=== PATIENT | male | born 1955 | race Caucasian/White ===

== ENCOUNTER → 2016-06-09 | Outpatient (CLI) | payer OTHER ==
[~2016-06-09] MED LIST: ACET-1222 PO; ACET-1256 PO; ACET-1311 PO; AMOX500C3 PO; ARTIOIN OP; ASCA500 PO; ASCO500C43 PO; ASPCH81X PO; ASPI81TA28 PO; AUGMENTIN PO; BENZ2TAB6 PO; BISA10SU38 PR; BUPR-79 PO; BUPR-83 PO; BUPR100T8 PO; CEPH500C2 PO; CGN1 PO; CGN1X PO; CIPR-255 PO; CLOTCRE33 TOP; CPRS5005 PO; CYAN10005 PO; DEXT1TAB50 PO; DEXT30TA7 PO; DIVA500T5 PO; DIVA500T59 PO; DOCU100C PO; DOCU100C31 PO; DPKSR/500 PO; DUTA0.5C PO; FOLI1TAB7 PO; HALO5TAB PO; HYDR-3126 PO; KFL500 PO; LINE1TAB2 PO; LINE1TAB6 PO; LORA-741 PO; MELA1TAB54 PO; METO25TA3 PO; MOML PO; MOMLX PO; MULT-506 PO; MULTTAB63 PO; NICO14DI5 TD; NICO1DIS9 TOP; NMN5 PO; OXYC-57 PO; PANT40TA PO; PRED10TA PO; PRLSR20 PO; PROT1POW; PRT40 PO; QUET1TAB30 PO; SENN8.6C PO; SENNTAB23 PO; SNTO30 EXT; SNTONWC EX; SODIENE PR; SULF800T23 PO; TAMS0.4C38 PO; TEMA15CA4 PO; TRAM-10 PO; TYL325X PO; VANC1INJ71 IV; WLLSR100 PO; ZINC1CAP PO; ZSYI45 IV; [UNRECOGNIZED DRUG - CODE] IV; [UNRECOGNIZED DRUG - OTHER] SQ
[2016-06-09 13:50] VITALS: BP 97/58; PULSE 80; TEMP 36.5; O2SAT 98
--- NOTE | 2016-06-09 15:07 | Radiation Oncology Follow-Up ---
Radiation Oncology Follow-Up Date of Visit Jun 09, 2016. Reason For Visit One-month follow-up Radiation Completion Date 05/05/16 Diagnosis (1) Lung cancer Status: Acute Onset Date: 02/02/2016 Location: left upper lobe Histology Subtype: adenocarcinoma Stage: lll (B) Permanent Comment: Shortness of breath, abnormal chest CT Status post endoscopic ultrasound and biopsies 01/30/2016 Revealing adenocarcinoma Clinical stage T1b N3 M0 Status post completion of combined radiation and chemotherapy radiation completed 05/05/2016 received 6000 cGy Last Edited By: Andree Hernandes on May 14, 2016 10:12 History of Present Illness Mr. Luther is a 61-year-old male with a long time smoker of 50 years up to 3 packs a day. Currently he is been able to decrease to half a pack a day. Recently presented with increasing shortness of breath and presented to the emergency department where a chest x-ray and subsequent CT scan of the chest were performed. The chest x-ray taken on January 17 showed an indeterminate 2.1 cm nodular density in the left suprahilar region with follow-up CT scan recommended and performed. This confirmed a 2.4 x 2.2 cm spiculated nodule in the left upper lobe. Based 1.6 x 2.0 cm irregular density was noted in the left AP window that could be consistent with an abnormal lymph node. A 1.8 x 1.5 cm lymph node was seen anterior to the descending thoracic aorta. There was prominent right hilar nodes measuring up to 1.1 cm. No axillary nodes noted. Liver is enlarged to ptotic. There are no evidence of bony lesions appreciated. The patient was seen by Dr. Collins for further evaluation and tissue diagnosis. 01/30/2016 patient underwent a repeat CT scan of the chest without IV contrast. This again showed a 2.4 x 2.1 cm spiculated nodule in the left upper lobe with a 2.1 x 1.8 cm irregular density in the left AP window and a 1.8 x 1.5 cm lymph node anterior to the descending thoracic aorta. On 2015 Dr. Poe performed an endobronchial ultrasound with biopsy. An endobronchial ultrasound-guided FNA at station 7 lymph node revealed no malignant cells. Case: [id number]. Endobronchial ultrasound-guided FNA of lymph nodes are for revealed malignant cells. Case: [id number]. Endobronchial ultrasound-guided FNA of the L2 and lymph node revealed rare atypical cells consistent with metastatic adenocarcinoma. Case: -NG. The endobronchial ultrasound-guided FNA of the L4 lymph node was positive for malignant cells consistent with adenocarcinoma and a lung primary. Case: -NG. On February 03 patient underwent a PET/CT scan for staging purposes. This showed an FDG avid 2.2 cm left upper lobe spiculated nodule highly suspicious for primary bronchogenic carcinoma. Marked FDG uptake was noted with an irregular 1.7 cm AP window lesion suggestive of matheus spread. In addition it was mild FDG uptake within a nonenlarged left supraclavicular, high right paratracheal and subcarinal lymph nodes that were nonspecific but suspicious. A repeat CT angiogram of the chest was performed due to increasing shortness of breath to rule out pulmonary embolism. No acute pulmonary embolism was identified. The left upper lobe pulmonary nodule was again noted a 2.3 cm and suspicious. 2.2 cm groundglass opacity was appreciated within the right lower lobe likely atelectatic or inflammatory. CT soft tissue of the neck showed no evidence of airway compromise. There was no definite supraclavicular or cervical nodes appreciated. Patient was seen by Dr. Garo Wells for evaluation of the role of adjuvant chemotherapy. The patient was seen on 02/18/2016. The patient had undergone an MRI of the brain in February 2014 which showed cerebellar and cerebral atrophy. He noted the diagnosis of adenocarcinoma consistent with lung primary , TTF-1 positive and negative for PE 40. The TNM staging was recorded as T1b N3 M0 stage IIIB. He discussed with the patient the use of combined chemoradiation. The patient does appear to have bilateral peripheral leg neuropathy and wears bilateral leg braces. Dr. Wells stated that he would consider treatment with Alimta and carboplatin along with radiation. He discussed the possibility of 4 cycles with Alimta at 500 mg/m on day 1, carboplatin AUC of 5 on day 1 repeating every 21 days. He also arrange for the patient to be seen by our department for evaluation and discussion of the role of radiation. It is for this reason the patient is seen in referral. He underwent combined radiation and chemotherapy. Radiation was completed 05/05. He received 6000 cGy. Interim History He is doing well over the past month. He denies any change in respiratory status. 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 This continues to improve. He does have to be careful about swallowing liquids that her cold. He does better with fluid at room temperature. He also stated that certain foods such as hamburger has to be to do very well before swallowing. He continues to have some mild hoarseness of his voice. The irritation of the skin on his back is completely healed. On 2 occasions he has been seen and evaluated in the emergency room for shortness of breath. We did not require hospitalization or any change in medications. Allergies Coded Allergies: No Known Allergies (Unverified , 06/01/16) Home Medications Scheduled Aspirin (Aspirin Ec), 81 MG PO DAILY Benztropine Mesylate (Benztropine Mesylate), 1 MG PO BID Bupropion (Wellbutrin Sr), 100 MG PO QAM Dextromethorphan-Guaifenesin (Mucinex Dm Maximum Streng), 1 TAB PO BID Divalproex Sodium (Depakote Etended-Release), 500 MG PO BID Dutasteride (Avodart), 0.5 MG PO QAM Haloperidol (Haldol), 5 MG PO BID Memantine (Namenda), 5 MG PO DAILY Metoprolol Succinate (Toprol Xl), 25 MG PO DAILY Sennosides-Docusate Sodium (Stool Softener), 1 TAB PO BID Tamsulosin Hcl (Flomax), 0.4 MG PO QPM Review of Systems Gastrointestinal: Symptoms: WNL Oral: Other Oral Symptoms: Continues w/dysphagia at times in esophagus and "reno apple" area; Respiratory: Symptoms: Dry Cough, SOB With Exertion, Productive Cough Sputum Character: Yellow sputum when cough is productive; Other Respiratory: Voice hoarse, but improving per pt. Urinary: Symptoms: WNL Skin: Symptoms: No Problems Physical Exam Vital Signs Date Time Temp Pulse Resp B/P Pulse Ox O2 Delivery O2 Flow Rate FiO2 06/09/16 13:50 36.5 80 16 97/58 98 Fatigue: None General Appearance: no apparent distress Eyes: normal inspection, EOMI ENT: normal ENT inspection, hearing grossly normal, pharynx normal Neck: no adenopathy, thyroid normal Respiratory/Chest: lungs clear, no respiratory distress, no accessory muscle use Cardiovascular: regular rate, rhythm, no gallop, no murmur Extremities: no pedal edema Neurologic/Psychiatric: no motor/sensory deficits, alert, normal mood/affect Skin: warm/dry Lymphatic: no adenopathy Laboratory Studies Test 04/15/16 08:20 04/23/16 11:53 04/28/16 08:27 05/14/16 12:07 Platelet Estimate DECREASED Magnesium Level 2.1 mg/dl (1.8-2.4) 2.0 mg/dl (1.8-2.4) Chemistry Specimen Hemolysis Test 05/27/16 15:01 05/31/16 00:23 05/31/16 03:03 06/01/16 08:10 Platelet Estimate DECREASED Polychromasia 1+ 1+ Anisocytosis PRESENT PRESENT Lactate Dehydrogenase 228 U/L (87-241) Est Creatinine Clear Calc Drug Dose 114.4 ml/min 175.1 ml/min Direct Bilirubin < 0.1 mg/dl (0-0.2) Lipase 171 U/L (73-393) Urine Color DK YELLOW Urine Appearance CLOUDY (CLEAR) Urine pH 7.5 (4.5-7.5) Urine Specific [place] 1.015 (1.000-1.030) Urine Protein NEG (NEG) Urine Glucose (UA) NEG (NEG) Urine Ketones NEG (NEG) Urine Occult Blood NEG (NEG) Urine Nitrite NEG (NEG) Urine Bilirubin NEG (NEG) Urine Urobilinogen NEG (NEG) Urine Leukocyte Esterase TRACE (NEG) Urine WBC (Auto) 1-5 /hpf (0-5) Urine RBC (Auto) 0-4 /hpf (0-4) Urine Hyaline Casts (Auto) 10-30 /lpf (0-5) Urine Epithelial Cells (Auto) >30 /lpf (0-5) Urine Bacteria (Auto) NEG (NEG) Urine Renal Epithelial Cells 0-5 /lpf (0-5) Urine Mucus PRESENT (NONE PRSENT) White Blood Count 2.11 K/uL (4.8-10.8) Red Blood Count 3.28 M/uL (4.7-6.1) Hemoglobin 10.0 g/dL (14.0-18.0) Hematocrit 29.5 % (42-52) Mean Corpuscular Volume 89.9 fL (80-100) Mean Corpuscular Hemoglobin 30.5 pg (25-34) Mean Corpuscular Hemoglobin Concent 33.9 g/dl (32-36) Platelet Count 151 K/uL (130-400) Mean Platelet Volume 9.2 fL (7.4-10.4) Neutrophils (%) (Auto) 47.9 % Lymphocytes (%) (Auto) 14.7 % Monocytes (%) (Auto) 36.0 % Eosinophils (%) (Auto) 0.5 % Basophils (%) (Auto) 0.0 % Neutrophils # (Auto) 1.01 K/uL (1.4-6.5) Lymphocytes # (Auto) 0.31 K/uL (1.2-3.4) Monocytes # (Auto) 0.76 K/uL (0.11-0.59) Eosinophils # (Auto) 0.01 K/uL (0-0.5) Basophils # (Auto) 0.00 K/uL (0-0.2) RDW Standard Deviation 62.9 fL (36.4-46.3) RDW Coefficient of Variation 19.8 % (11.5-14.5) Immature Granulocyte % (Auto) 0.9 % Immature Granulocyte # (Auto) 0.02 K/uL (0.00-0.02) Prothrombin Time 10.7 SECONDS (9.0-12.0) Prothrombin Time INR 1.0 (0.9-1.1) PTT 29.9 SECONDS (21.0-31.0) Partial Thromboplastin Ratio 1.2 Sodium Level 132 mmol/L (136-145) Potassium Level 4.3 mmol/L (3.5-5.1) Chloride Level 97 mmol/L (98-107) Carbon Dioxide Level 28 mmol/L (21-32) Anion Gap 7.0 mmol/L (3-11) Blood Urea Nitrogen 6 mg/dl (7-18) Creatinine 0.55 mg/dl (0.60-1.40) Estimated GFR () 129.4 Estimated GFR (Non- 111.7 BUN/Creatinine Ratio 10.9 (10-20) Random Glucose 109 mg/dl (70-99) Calcium Level 8.8 mg/dl (8.5-10.1) Total Bilirubin 0.2 mg/dl (0.2-1) Aspartate Amino Transferase (AST) 23 U/L (15-37) Alanine Aminotransferase (ALT) 16 U/L (12-78) Alkaline Phosphatase 59 U/L (45-117) Troponin I < 0.015 ng/ml (0-0.045) Total Protein 6.5 gm/dl (6.4-8.2) Albumin 2.9 gm/dl (3.4-5.0) Globulin 3.6 gm/dl (2.5-4.0) Albumin/Globulin Ratio 0.8 (0.9-2) Test 06/09/16 13:30 White Blood Count 6.56 K/uL (4.8-10.8) Red Blood Count 3.69 M/uL (4.7-6.1) Hemoglobin 11.6 g/dL (14.0-18.0) Hematocrit 33.6 % (42-52) Mean Corpuscular Volume 91.1 fL (80-100) Mean Corpuscular Hemoglobin 31.4 pg (25-34) Mean Corpuscular Hemoglobin Concent 34.5 g/dl (32-36) Platelet Count 274 K/uL (130-400) Mean Platelet Volume 9.1 fL (7.4-10.4) Neutrophils (%) (Auto) 67.3 % Lymphocytes (%) (Auto) 20.9 % Monocytes (%) (Auto) 10.1 % Eosinophils (%) (Auto) 0.3 % Basophils (%) (Auto) 0.3 % Neutrophils # (Auto) 4.42 K/uL (1.4-6.5) Lymphocytes # (Auto) 1.37 K/uL (1.2-3.4) Monocytes # (Auto) 0.66 K/uL (0.11-0.59) Eosinophils # (Auto) 0.02 K/uL (0-0.5) Basophils # (Auto) 0.02 K/uL (0-0.2) RDW Standard Deviation 60.1 fL (36.4-46.3) RDW Coefficient of Variation 18.3 % (11.5-14.5) Immature Granulocyte % (Auto) 1.1 % Immature Granulocyte # (Auto) 0.07 K/uL (0.00-0.02) Sodium Level 134 mmol/L (136-145) Potassium Level 4.5 mmol/L (3.5-5.1) Chloride Level 97 mmol/L (98-107) Carbon Dioxide Level 29 mmol/L (21-32) Anion Gap 8.0 mmol/L (3-11) Blood Urea Nitrogen 10 mg/dl (7-18) Creatinine 0.66 mg/dl (0.60-1.40) Estimated GFR () 120.1 Estimated GFR (Non- 103.6 BUN/Creatinine Ratio 15.9 (10-20) Random Glucose 95 mg/dl (70-99) Calcium Level 9.3 mg/dl (8.5-10.1) Total Bilirubin 0.4 mg/dl (0.2-1) Aspartate Amino Transferase (AST) 14 U/L (15-37) Alanine Aminotransferase (ALT) 18 U/L (12-78) Alkaline Phosphatase 78 U/L (45-117) Lactate Dehydrogenase 257 U/L (87-241) Total Protein 7.6 gm/dl (6.4-8.2) Albumin 3.5 gm/dl (3.4-5.0) Globulin 4.1 gm/dl (2.5-4.0) Albumin/Globulin Ratio 0.9 (0.9-2) Assessment & Plan Plan: Continue follow-up with medical oncology. He has appointment next week. Recheck scanning per medical oncology. Continue follow-up with his PCP. We discussed the difficulty with swallowing. I reviewed with him that in some cases the patient may develop esophageal stricture following treatment. He is steadily improving. He is instructed to call should he continue to have difficulty with swallowing he may need to be referred to gastroenterology for upper GI endoscopy and dilatation. We asked him to return to our office in 6 months. Total Time In Follow-Up I spent 15 minutes speaking to the patient performing examination. I spent 15 minutes reviewing information in completing this note. Copy To Benja López M.D.; [place] Cheng D.OLexis; Vasu Poe MD
== END | disposition home or self-care (01) ==
LOC: C.ONC 13:21
PROVIDERS: ATTEND Radiology Radiation Oncology
DX: Z08 Encounter for follow-up examination after completed treatment for malignant neoplasm (principal); Z92.3 Personal history of irradiation; Z85.118 Personal history of other malignant neoplasm of bronchus and lung

== ENCOUNTER 2016-06-18 12:21 | Inpatient (IN) | payer OTHER ==
[2016-06-18] VITALS (17 sets, daily range): BP systolic 102–157; BP diastolic 55–87; PULSE 71–91; TEMP 36.3–36.9; O2SAT 96–100; Ht 172.7 cm; Wt 85.7 kg
[~2016-06-18] VITALS: Ht 172.7 cm; Wt 85.7 kg
[~2016-06-18 12:21] MED LIST changes: -ACET-1222 PO; -ACET-1256 PO; -ACET-1311 PO; -AMOX500C3 PO; -ARTIOIN OP; -ASCA500 PO; -ASCO500C43 PO; -ASPCH81X PO; -AUGMENTIN PO; -BENZ2TAB6 PO; -BISA10SU38 PR; -BUPR-83 PO; -BUPR100T8 PO; -CEPH500C2 PO; -CGN1 PO; -CIPR-255 PO; -CLOTCRE33 TOP; -CPRS5005 PO; -CYAN10005 PO; -DEXT30TA7 PO; -DIVA500T5 PO; -DIVA500T59 PO; -DOCU100C PO; -DOCU100C31 PO; -FOLI1TAB7 PO; -HYDR-3126 PO; -KFL500 PO; -LINE1TAB2 PO; -LINE1TAB6 PO; -LORA-741 PO; -MELA1TAB54 PO; -MOML PO; -MOMLX PO; -MULT-506 PO; -MULTTAB63 PO; -NICO14DI5 TD; -NICO1DIS9 TOP; -OXYC-57 PO; -PANT40TA PO; -PRED10TA PO; -PRLSR20 PO; -PROT1POW; -PRT40 PO; -QUET1TAB30 PO; -SENN8.6C PO; -SNTO30 EXT; -SNTONWC EX; -SODIENE PR; -SULF800T23 PO; -TEMA15CA4 PO; -TRAM-10 PO; -TYL325X PO; -VANC1INJ71 IV; -WLLSR100 PO; -ZINC1CAP PO; -ZSYI45 IV; -[UNRECOGNIZED DRUG - CODE] IV; -[UNRECOGNIZED DRUG - OTHER] SQ
[2016-06-18] MEDS ORDERED: ACETAMINOPHEN 325 MG TAB PO PRN (12:30)
[2016-06-18 13:07] LABS: BASO % 0.1 %; BASO ABS # 0.01 K/uL (0-0.2); EOS % 0.2 %; HEMATOCRIT 27.8 % (42-52); IG% 0.5 %; LYMPH % 12.7 %; LYMPH ABS # 1.27 K/uL (1.2-3.4); MEAN CELL VOLUME 89.7 fL (80-100); MEAN PLATELET VOLUME 8.8 fL (7.4-10.4); MONO % 9.5 %; PLATELET COUNT 231 K/uL (130-400)
[2016-06-18] MEDS ORDERED: HEPARIN 25,000 UNIT/500ML D5W 500 ML IV PRN (13:15)
[2016-06-18 13:16] LABS: PARTIAL THROMBOPLASTIN RATIO 1.1; PROTHROMBIN TIME (PATIENT) 10.9 SECONDS (9.0-12.0)
[2016-06-18 13:28] LABS: COMPLETE YES; MEAN CORPUSCULAR HGB CONC 34.5 g/dl (32-36)
[2016-06-18 13:30] LABS: ALB/GLOB RATIO 0.7 (0.9-2); BUN/CREATININE RATIO 14.7 (10-20); CREATININE 0.59 mg/dl (0.60-1.40); POTASSIUM 4.4 mmol/L (3.5-5.1)
--- NOTE | 2016-06-18 13:43 | Surgery Consultation ---
Consultation Date of Service Jun 18, 2016. Chief Complaint 61 yo m with hx of schizoaffective/bipolar disorder, HTN, and lung ca, seen in consultation today d/t pain in LLE and concern for ischemia. Pt states he was at home, where he ambulates with leg braces on, and began having pain in L foot about 2-3 days ago. States is constant, waxing and waning occasionally, significantly worse at night. Told his family last evening, who took him to his PCP's office today. PCP sent to [facility] d/t concern for ischemia. Pt recently completed tx for lung ca. Denies CRISOSTOMO, fever, chills, chest pain, SOB,a db pain, N/V, ulcerations, other complaints. 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 History of Present Illness The patient is a 61 year old male Allergies Coded Allergies: No Known Allergies (Unverified , 06/01/16) Home Medications Scheduled Aspirin (Aspirin Ec), 81 MG PO DAILY Benztropine Mesylate (Benztropine Mesylate), 1 MG PO BID Bupropion (Wellbutrin Sr), 100 MG PO QAM Dextromethorphan-Guaifenesin (Mucinex Dm Maximum Streng), 1 TAB PO BID Divalproex Sodium (Depakote Etended-Release), 500 MG PO BID Dutasteride (Avodart), 0.5 MG PO QAM Haloperidol (Haldol), 5 MG PO BID Memantine (Namenda), 5 MG PO DAILY Metoprolol Succinate (Toprol Xl), 25 MG PO DAILY Sennosides-Docusate Sodium (Stool Softener), 1 TAB PO BID Tamsulosin Hcl (Flomax), 0.4 MG PO QPM Problem List Medical Problems: (1) Bipolar disorder (2) ISCHEMIA L FOOT,PAD,LUNG CA (3) Lung mass Surgical / Medical History Hx Cardiac Surgery: No Hx Abdominal Surgery: No Hx Cancer Surgery: No Hx Thoracic Surgery: No Hx Orthopedic: No Hx Urinary Tract Surgery: No Past Medical/Surgical History: Cancer, Hypertension, Other Psy. Disorders Family History No pertinent family history Social History Smoking Status: Current Every Day Smoker Hx Tobacco Use In Past Year?: Yes (trying to quit past 2 days. ) Hx Alcohol Use - Type & Amnt: No Hx Substance Use -Type & Amnt: No Review of Systems Constitutional: No chills, No fever, No malaise Skin: + change in color Eyes: No visual changes ENMT: No sore throat Respiratory: No NEWBY, No short of breath Cardiovascular: + edema, + intermittent claudication, No chest pain, No palpitations, No syncope Gastrointestinal: No abdominal pain, No diarrhea, No nausea, No vomiting Neurologic: + numbness (L foot/toes), + weakness (L foot/toes), No dizziness Physical Exam Constitutional: General Apperance: well-nourished, well-developed Level of Distress: NAD, chronically ill Psychiatric: Mental Status: active & alert, normal mood, normal affect Orientation: oriented except where noted, to time, to place, to person Memory: recent memory normal, remote memory normal Head: normocephalic, atraumatic Eyes: EOM: EOMI ENMT: normal ENT inspection, hearing grossly normal Neck: supple, trachea midline Lungs: Respiratory effort: no dyspnea Auscultation: no rales/crackles, no rhonchi, decreased breath sounds Cardiovascular: Apical Impulse: not displaced Heart Auscultation: RRR, no rubs, no gallops Peripheral Pulses: Pulses: full and equal, in all extremities except if noted Bruits: none appreciated Carotid Pulse: normal on the left, normal on the right Brachial Pulses: normal on the left, normal on the right Radial Pulse: normal on the left, normal on the right Femoral Pulse: absent on the left, absent on the right Posterior Tibialis Pulse: absent on the left, doppler (RLE only) Dorsalis Pedis Pulse: absent on the left, doppler (RLE only) Abdomen: Bowel Sounds: normal Inspection & Palpation: soft, non-distended, no tenderness, guarding & rebound Musculoskeletal: pertinent finding (L foot numbness to above ankle area, unable to dorsiflex or plantar flex foot or toes) Extremities: Upper Right: no cyanosis, no edema, no varicosities Upper Left: no cyanosis, no edema, no varicosities Lower Right: no cyanosis, no edema, no varicosities Lower Left: cyanosis, edema, mottling, pertinent finding (erythema, cool toes, delayed cap refill at 10 seconds) Neurologic: Cranial Nerves: grossly intact Sensation: pertinent finding (see musculoskeletal exam) Assessment and Plan ASSESSMENT and PLAN: LLE ischemia Pt also seen by Dr Ac. d/t neurological sx and signs of ischemia, recommend emergent aortography with intervention, possible fem-fem bypass, possible aortobifemoral bypass to revascualrize. Procedure, risks, benefits, and alternative discussed wtih pt and family member present, also with POA, he expresses understanding and agreement.
[2016-06-18] MEDS ORDERED: FENTANYL CITRATE INJ 50 MCG/1 ML 2 ML VIAL ONE ×3 (13:44→17:21)
[2016-06-18] MEDS ORDERED: HEPARIN SOD (PORCINE) 1000 UNIT/ML 10 ML VIAL ONE ×2 (13:44→16:41)
[2016-06-18] MEDS ORDERED: MIDAZOLAM HCL 1 MG/ML 2ML VIAL ONE ×2 (13:44→13:51)
[2016-06-18] MEDS ORDERED: PNEUMOCOCCAL ADMINISTRATION CHARGE ONE (14:00)
[2016-06-18] MEDS ORDERED: PNEUMOCOCCAL POLYSACCHARIDES 25 MCG/0.5 ML VIAL/SYR IM. ONE (14:00)
[2016-06-18] MEDS ORDERED: CEFAZOLIN 2000 MG/60 ML D5W 60 ML IV SCH (14:00)
[2016-06-18] MEDS ORDERED: HEPARIN IV BOLUS 7,000 UNIT in SYRINGE 0 ML IV ONE (14:00)
--- NOTE | 2016-06-18 14:05 | Progress Note ---
Progress Note Patient was seen, examined, and chart reviewed. Agree with exam and treatment plan of the Vascular PA. Patient requires aortography with possible intervention. If this does not work , he will need a cross femoral bypass or aortobifemoral bypass. I have discussed the risks options and benefits of the procedure with the patient. The patient understands the risks options and benefits and agrees to the procedure.
[2016-06-18] MEDS ORDERED: CEFAZOLIN IV 2,000 MG/60 ML D5W IV ONE (14:06)
[2016-06-18] MEDS ORDERED: SODIUM CHLORIDE 0.9% 1000ML 1,000 ML IV ONE (14:30)
[2016-06-18] MEDS ORDERED: EpHEDrine SULFATE INJ 50 MG/ML AMP IV PRN ×2 (14:45→18:00)
[2016-06-18] MEDS ORDERED: ONDANSETRON INJ 2 MG/ML 2 ML VIAL IV PRN ×3 (14:45→18:00)
[2016-06-18] MEDS ORDERED: ATROPINE SULFATE 0.1 MG/ML 5ML SYR IV PRN ×2 (14:45→18:00)
[2016-06-18] MEDS ORDERED: MoRPHine SULFATE 2 MG/ML CARP IV PRN ×2 (14:45→18:00)
[2016-06-18] MEDS ORDERED: FENTANYL CITRATE INJ 50 MCG/1 ML 2 ML VIAL IV PRN ×2 (14:45→18:00)
[2016-06-18] MEDS ORDERED: IODIXANOL (VISIPAQUE) 270 MG/ML 150ML XX ONE (15:30)
[2016-06-18] MEDS ORDERED: LIDOCAINE HCL 1% 20 ML VIAL INFIL ONE (15:30)
[2016-06-18] MEDS ORDERED: LIDOCAINE HCL 2% 2 ML VIAL (20MG/ML) ONE (16:41)
[2016-06-18] MEDS ORDERED: ROCURONIUM BROMIDE 10 MG/ML 5 ML VIAL ONE (16:41)
[2016-06-18] MEDS ORDERED: PHENYLEPHRINE HCL INJ 10 MG/ML VIAL ONE (16:41)
[2016-06-18] MEDS ORDERED: PROPOFOL IV EMULSION 10 MG/ML 20 ML VIAL IV ONE (16:41)
[2016-06-18] MEDS ORDERED: CEFAZOLIN SOD 1 GM VIAL IRRIG ONE (17:03)
[2016-06-18] MEDS ORDERED: THROMBIN 5000 UNITS KIT TOP ONE (17:03)
[2016-06-18] MEDS ORDERED: HEPARIN SOD (PORCINE) 1000 UNIT/ML 10 ML VIAL FLUSH ONE (17:03)
[2016-06-18] MEDS ORDERED: GELATIN SPONGE SZ 100 TOP ONE (17:03)
--- NOTE | 2016-06-18 17:16 | [facility] Post Operative Brief Note ---
Immediate Operative Summary Operative Date Jun 18, 2016. Pre-Operative Diagnosis Left Lower Extremity Ischemia Post-Operative Diagnosis Same Procedure(s) Performed Right to Left Cross Femoral Bypass Surgeon Dr. David Ac Tablet Making Machine Operator Helper Surgeon(s) None Estimated Blood Loss 250 Findings oc iliac artery occlusion Specimens Permanment Specimen A: Plaque Anesthesia General Complication(s) None Disposition Recovery Room / PACU
[2016-06-18] MEDS ORDERED: D5W AND 1/2NSS 1,000 ML IV SCH (17:17)
--- NOTE | 2016-06-18 17:17 | [facility] Post Operative Brief Note ---
Immediate Operative Summary Operative Date Jun 18, 2016. Pre-Operative Diagnosis Left Lower Extremity Ischemia Post-Operative Diagnosis Same Procedure(s) Performed Aortogram BAR FINISH OPERATOR right external iliac artery occlusion Surgeon Dr. David Ac Job Developer Surgeon(s) None Estimated Blood Loss 20 Findings oc iliac artery occlusion Specimens Permanment Specimen A: Plaque Anesthesia MAC Complication(s) None Disposition Recovery Room / PACU
[2016-06-18] MEDS ORDERED: MoRPHine SULFATE 4 MG/ML 1 ML CARP\\VIAL IV PRN (17:30)
[2016-06-18 17:48] LABS: BASO % 0.1 %; BASO ABS # 0.01 K/uL (0-0.2); COMPLETE YES; EOS % 0.3 %; HEMATOCRIT 29.6 % (42-52); IG% 0.5 %; LYMPH % 6.3 %; LYMPH ABS # 0.58 K/uL (1.2-3.4); MEAN CELL VOLUME 88.4 fL (80-100); MEAN CORPUSCULAR HEMOGLOBIN 30.7 pg (25-34); MEAN CORPUSCULAR HGB CONC 34.8 g/dl (32-36); MEAN PLATELET VOLUME 8.9 fL (7.4-10.4); MONO % 14.4 %; NEUT % 78.4 %; PLATELET COUNT 187 K/uL (130-400); RED BLOOD COUNT 3.35 M/uL (4.7-6.1); WHITE BLOOD COUNT 9.16 K/uL (4.8-10.8)
--- NOTE | 2016-06-18 18:04 | Anesthesiology Progress Note ---
Anesthesia Post Op Note Date & Time Jun 18, 2016 at 18:04 Vital Signs Pain Intensity: 0 Vital Signs Past 12 Hours Date Time Temp Pulse Resp B/P Pulse Ox O2 Delivery O2 Flow Rate FiO2 06/18/16 17:55 36.3 71 16 147/81 100 Nasal Cannula 3 06/18/16 17:45 74 16 156/96 100 Mask 10 06/18/16 17:35 74 16 136/84 100 Mask 10 06/18/16 17:28 36 77 16 163/91 100 Mask 10 06/18/16 12:30 36.9 91 18 102/66 100 Room Air Notes Mental Status: alert / awake / arousable, participated in evaluation Pt Amnestic to Procedure: Yes Nausea / Vomiting: adequately controlled Pain: adequately controlled Airway Patency, RR, SpO2: stable & adequate BP & HR: stable & adequate Hydration State: stable & adequate Anesthetic Complications: no major complications apparent
--- NOTE | 2016-06-18 18:47 | HISTORY & PHYSICAL EXAMINATION ---
DATE OF ADMISSION: 06/18/2016 A 61-year-old male admitted directly from the office with ischemic left foot and left lower leg. HISTORY OF PRESENT ILLNESS: The patient with a complex medical history including arterial hypertension, peripheral neuropathy, memory deficit, bipolar disorder, history of excessive alcohol intake and smoking and he still smokes at this point. He was recently diagnosed with lung cancer. He had surgery done by Dr. Poe. He had been treated with radiation and chemotherapy. The patient was seen in the office acutely today. He was complaining of pain in his left foot. The pain has been progressive over the last 2-3 days. He denied any trauma, denied any fall, denied any fever or any chills. He had no chest pain or shortness of breath or any other associated symptoms. On examination in the office, his left foot was ischemic, also there were ischemic changes involving the lower third of his left lower leg. Arrangements were made for admission. I contacted Dr. Ac and I spoke with him and requested a consultation. PAST MEDICAL HISTORY: 1. He has had a prior hospitalization in April of 2012 with a new onset of seizure disorder, thought to be secondary to alcohol withdrawal. He was not started on any antiepileptic medications. He has not had any reoccurrence. 2. He was hospitalized in 2013 with severe cellulitis of the inguinal and scrotal areas on both sides. 3. He was diagnosed with lung cancer. He is a long-term smoker up to 3 packs per day for 50 years. He was complaining of increased shortness of breath. He had chest x-ray which was abnormal, which showed and a spiculated mass in the left suprahilar region and a nodular area. Subsequently, a CT scan was done and confirmed it. He had multiple abnormalities on his CT scan of the chest including a 2.4 x 2.2 cm spiculated nodule in the left upper lobe. He also had enlarged lymph nodes. He was seen by Dr. Poe. He underwent additional imaging studies and subsequently had endobronchial ultrasound with biopsy. There was evidence of malignancy. The diagnosis was established of adenocarcinoma. Subsequently, he was treated with additional surgery and then with radiation and chemotherapy. He did complete his chemotherapy and he is being monitored. 4. Arterial hypertension, treated a long time and controlled. 5. Bipolar disorder. He has had a long history. Treated. He has been seen at the [facility] psychiatric clinic for followup. He had a hospitalization in November of 2014. 6. Vasectomy in the remote past. 7. He has donated plasma in the past on a regular basis but not recently. 8. Longstanding history of dyspepsia. 9. Peripheral neuropathy. He has had in a neurology evaluation by Dr. Rai and Dr. Garrison in the past. He was diagnosed with cerebellar degeneration and peripheral neuropathy, possibly secondary to alcohol abuse. 10. Sometime in the remote past, he was having a friendly wrestling match and his opponent bit his left ear. Partial loss of his left external ear. He was hospitalized at that time for 3 days. 11. Peripheral arterial disease. Previously noted, but this is more of an acute presentation today. SOCIAL HISTORY: He is twice. He had 2 boys from his first marriage. He smoked since age 11 or 12, up to 3 packs per day for a total of about 50 years. He is still smoking now about, he tells me about 2-3 cigarettes per day. He does have a history of alcohol abuse, mostly a year. He is retired and not working at this time. He used to live in [place]. FAMILY HISTORY: He is really not aware of his family medical history. He had 2 brothers and 3 sisters, not aware of their medical problems. His children alive and well. ALLERGIES: None. MEDICATIONS ON ADMISSION: All as noted. REVIEW OF SYSTEMS: When I saw him in the office, he was mostly complaining of pain in his left foot. Denied any headache, no dizziness, no lightheadedness. No earache, sore throat or neck pain. No chest pain. No shortness of breath. No abdominal pain, no nausea, no vomiting. Has not had any problem with bowel movements. He does have chronic problem with slow urine flow and he is on Flomax. Denied any back pain. Left foot pain is noted. PHYSICAL EXAMINATION: GENERAL: Well developed, in no acute distress. His recorded weight is 84.3 kg, height 172.7 cm, BMI 28.3. VITAL SIGNS: On arrival to the hospital - his vital signs showed a blood pressure of 102/66, pulse 91, respirations 18, temperature 36.9, oxygen saturation 100% on room air. SKIN: Warm and dry. No rash. HEENT: He is edentulous. He does have dentures. Deformity of his left ear from oozing a part of his ear when it was bitten off. No mucosal abnormalities in his nose, mouth or throat. NECK: Supple. Nontender. No adenopathy, no thyromegaly. No JVD. CHEST: Scar from prior surgery. HEART: Regular heart sounds. No evident murmur, rub, or gallop. LUNGS: Decreased breath sounds. Scattered rhonchi. ABDOMEN: Soft, nontender, without organomegaly or masses. BACK: No spinal tenderness. EXTREMITIES: No edema, clubbing, or cyanosis. He does have an ischemic left foot. His left foot is cold. He is cyanotic and tender. I could not appreciate any pedal pulses. NEUROLOGICAL: He is awake, alert and oriented. He does have peripheral neuropathy. He also has muscular atrophy. ADMISSION LABORATORY TESTS: WBC count 10,000, hemoglobin 9.6, hematocrit 27.8, platelet count 231,000. Prothrombin time 10.9, INR 1.0, PTT 29.2. Sodium 132, potassium 4.4, chloride 96, CO2 28, BUN 9, creatinine 0.59, glucose 95, calcium 9.0, total bilirubin 0.2, AST 12, ALT 17, alkaline phosphatase 70, total protein 7.0, albumin 2.8, globulin 4.2. His urinalysis is pending. ASSESSMENT: 1. Acute ischemia of the left foot and left lower leg. 2. Severe peripheral arterial disease. 3. Arterial hypertension. 4. Hyperlipidemia. 5. Smoker. 6. History of excessive alcohol intake. 7. Bipolar disorder. 8. Peripheral neuropathy. 9. Generalized weakness. PLAN: Arrangements were made for the patient to be admitted directly from the office. He was admitted to medical bed. Resuscitation level 1. All his laboratory tests were ordered. He was started on IV heparin. I spoke with Dr. Ac and requested a consultation. Soon after patient arrived, he was seen by Dr. Ac. He decided to go ahead and take him to the operating room. He had an angiogram done. He had bilateral disease. He was able to do a TALENT ANALYST and angioplasty on the right side, but on the left side artery was hard and 100% occluded, so he ended up having a fem-fem bypass. The patient is still at this point in the recovery room. I spoke with Dr. Ac after surgery. Everything went well. Even from a respiratory status, the patient did not have any problem. He was extubated in the operating room. He will be kept in ICU overnight. He will be closely monitored. AMELIA
--- NOTE | 2016-06-18 20:07 | Progress Note ---
Progress Note Project Intern: I did not see this patient and I discussed that with Dr. Kolton Morrissey. Please do not bill this patient for my services.
[2016-06-18] MEDS: OXYCODONE/ACETAMINOPHEN 5-325 TAB PO PRN (20:10)
[2016-06-18] MEDS: MoRPHine SULFATE 4 MG/ML 1 ML CARP\\VIAL IV PRN ×2 (20:10→22:36)
[2016-06-18] MEDS: BENZTROPINE MESYLATE 1 MG TAB PO SCH (22:02)
[2016-06-18] MEDS: TAMSULOSIN HCL 0.4 MG CAP PO SCH (22:03)
[2016-06-18] MEDS: HALOPERIDOL 5 MG TAB PO SCH (22:03)
[2016-06-18] MEDS: DIVALPROEX 500 MG EXTENDED RELEASE TAB PO SCH (22:03)
[2016-06-18] MEDS: DOCUSATE SODIUM/SENNA 50/8.6MG TAB PO SCH (22:04)
[2016-06-18] MEDS: BuPROPion SR 150 MG TABCR PO SCH (22:05)
[2016-06-18] MEDS: CEFAZOLIN IV 1,000 MG in DEXTROSE 5% 50ML 50 ML IV SCH (22:37)
[2016-06-19] VITALS (15 sets, daily range): BP systolic 81–113; BP diastolic 54–74; PULSE 72–97; TEMP 36.7–37.1; O2SAT 93–99
[2016-06-19] MEDS: MoRPHine SULFATE 4 MG/ML 1 ML CARP\\VIAL IV PRN (05:36)
[2016-06-19] MEDS: OXYCODONE/ACETAMINOPHEN 5-325 TAB PO PRN (05:37)
[2016-06-19 06:27] LABS: HEMATOCRIT 28.4 % (42-52); MEAN CELL VOLUME 86.3 fL (80-100); MEAN CORPUSCULAR HEMOGLOBIN 30.4 pg (25-34); MEAN CORPUSCULAR HGB CONC 35.2 g/dl (32-36); PLATELET COUNT 210 K/uL (130-400); RED BLOOD COUNT 3.29 M/uL (4.7-6.1); WHITE BLOOD COUNT 7.72 K/uL (4.8-10.8)
[2016-06-19 06:43] LABS: PARTIAL THROMBOPLASTIN RATIO 1.1
[2016-06-19] MEDS: CEFAZOLIN IV 1,000 MG in DEXTROSE 5% 50ML 50 ML IV SCH (06:44)
[2016-06-19 07:19] LABS: BUN/CREATININE RATIO 21.2 (10-20); CALCIUM 8.1 mg/dl (8.5-10.1); CREATININE 0.39 mg/dl (0.60-1.40); POTASSIUM 4.2 mmol/L (3.5-5.1)
[2016-06-19] MEDS: METOPROLOL SUCC 25MG EXT REL TAB PO SCH (09:01)
[2016-06-19] MEDS: ASPIRIN 81 MG ECTAB PO SCH (09:01)
[2016-06-19] MEDS: BuPROPion SR 150 MG TABCR PO SCH ×2 (09:01→19:30)
[2016-06-19] MEDS: DOCUSATE SODIUM/SENNA 50/8.6MG TAB PO SCH ×2 (09:01→19:30)
[2016-06-19] MEDS: HALOPERIDOL 5 MG TAB PO SCH ×2 (09:01→19:29)
[2016-06-19] MEDS: DIVALPROEX 500 MG EXTENDED RELEASE TAB PO SCH ×2 (09:02→19:28)
[2016-06-19] MEDS: BENZTROPINE MESYLATE 1 MG TAB PO SCH ×2 (09:02→19:28)
[2016-06-19] MEDS: MEMANTINE 5 MG TAB PO SCH (09:03)
--- NOTE | 2016-06-19 10:37 | Progress Note ---
Progress Note Date of Service: Jun 19, 2016. Subjective Complaining of pain in leg when he moves it, rest pain has resolved Problem List Medical Problems: (1) Acute bronchitis Status: Acute (2) Anemia Status: Acute (3) Hyponatremia Status: Acute (4) Left upper quadrant pain Status: Acute (5) Mass of upper lobe of left lung Status: Acute (6) Shortness of breath Status: Acute (7) Thrush Status: Acute Objective Vital Signs Vital Signs Past 12 Hours Date Time Temp Pulse Resp B/P Pulse Ox O2 Delivery O2 Flow Rate FiO2 06/19/16 10:00 85 14 112/64 97 Nasal Cannula 2.0 06/19/16 08:00 36.7 87 22 104/66 94 Nasal Cannula 2.0 06/19/16 08:00 Nasal Cannula 2.0 06/19/16 06:01 84 17 113/57 99 Nasal Cannula 2.0 06/19/16 04:55 36.7 80 15 108/59 99 Nasal Cannula 2.0 06/19/16 04:00 99 Nasal Cannula 2.0 06/19/16 03:00 76 13 98/54 99 Nasal Cannula 2.0 06/19/16 01:45 36.7 77 14 112/62 99 Nasal Cannula 2.0 104/68 06/19/16 00:00 36.8 72 16 102/56 06/19/16 00:00 99 Nasal Cannula 2.0 06/18/16 23:00 36.6 76 14 103/55 99 Nasal Cannula 2.0 Exam groin incisions dry and clean, no hematomas Post tib to doppler on left. Foot warm with cap refill able to wiggle toes slightly on left Intake & Output 8-Hour Column 06/18/16 06/19/16 06/19/16 16:00 00:00 08:00 Intake Total 3473 ml 1253 ml Output Total 1525 ml 480 ml Balance 1948 ml 773 ml 24-Hour Column 06/19/16 08:00 Intake Total 4726 ml Output Total 2005 ml Balance 2721 ml Laboratory and Microbiology Results Past 24 Hours Test 06/18/16 12:53 06/18/16 17:38 06/19/16 00:00 06/19/16 06:05 Range/Units White Blood Count 10.00 9.16 7.72 4.8-10.8 K/uL Red Blood Count 3.10 3.35 3.29 4.7-6.1 M/uL Hemoglobin 9.6 10.3 10.0 14.0-18.0 g/dL Hematocrit 27.8 29.6 28.4 42-52 % Mean Corpuscular Volume 89.7 88.4 86.3 80-100 fL Mean Corpuscular Hemoglobin 31.0 30.7 30.4 25-34 pg Mean Corpuscular Hemoglobin Concent 34.5 34.8 35.2 32-36 g/dl Platelet Count 231 187 210 130-400 K/uL Mean Platelet Volume 8.8 8.9 9.0 7.4-10.4 fL Neutrophils (%) (Auto) 77.0 78.4 % Lymphocytes (%) (Auto) 12.7 6.3 % Monocytes (%) (Auto) 9.5 14.4 % Eosinophils (%) (Auto) 0.2 0.3 % Basophils (%) (Auto) 0.1 0.1 % Neutrophils # (Auto) 7.70 7.17 1.4-6.5 K/uL Lymphocytes # (Auto) 1.27 0.58 1.2-3.4 K/uL Monocytes # (Auto) 0.95 1.32 0.11-0.59 K/uL Eosinophils # (Auto) 0.02 0.03 0-0.5 K/uL Basophils # (Auto) 0.01 0.01 0-0.2 K/uL RDW Standard Deviation 57.2 55.2 54.5 36.4-46.3 fL RDW Coefficient of Variation 17.4 16.8 17.1 11.5-14.5 % Immature Granulocyte % (Auto) 0.5 0.5 % Immature Granulocyte # (Auto) 0.05 0.05 0.00-0.02 K/uL Prothrombin Time 10.9 9.0-12.0 SECONDS Prothromb Time International Ratio 1.0 0.9-1.1 Activated Partial Thromboplast Time 29.2 29.6 21.0-31.0 SECONDS Partial Thromboplastin Ratio 1.1 1.1 Sodium Level 132 132 136-145 mmol/L Potassium Level 4.4 4.2 3.5-5.1 mmol/L Chloride Level 96 96 98-107 mmol/L Carbon Dioxide Level 28 25 21-32 mmol/L Anion Gap 8.0 11.0 3-11 mmol/L Blood Urea Nitrogen 9 8 7-18 mg/dl Creatinine 0.59 0.39 0.60-1.40 mg/dl Est Creatinine Clear Calc Drug Dose 137.3 209.4 ml/min Estimated GFR () 125.8 149.1 Estimated GFR (Non- 108.5 128.6 BUN/Creatinine Ratio 14.7 21.2 10-20 Random Glucose 95 97 70-99 mg/dl Calcium Level 9.0 8.1 8.5-10.1 mg/dl Total Bilirubin 0.2 0.2-1 mg/dl Aspartate Amino Transf (AST/SGOT) 12 15-37 U/L Alanine Aminotransferase (ALT/SGPT) 17 12-78 U/L Alkaline Phosphatase 70 45-117 U/L Total Protein 7.0 6.4-8.2 gm/dl Albumin 2.8 3.4-5.0 gm/dl Globulin 4.2 2.5-4.0 gm/dl Albumin/Globulin Ratio 0.7 0.9-2 Microbiology Results 06/18/16 MRSA DNA Surveillance Screen - Final, Complete Specimen Negative for MRSA by DNA Probe Imp: Post revasc for left leg ischemia Plan: Cross fem working well. Left foot viable. Agree with transfer to floor. Agree with no heparin drip. May be OOB and ambulate ad anitra.
[2016-06-19 10:44] LABS: URINE APPEARANCE CLEAR (CLEAR); URINE EPITHELIAL CELL AUTO >30 /lpf (0-5); URINE NITRITE POS (NEG); URINE SPECIFIC GRAVITY > 1.045 (1.000-1.030); UROBILINOGEN NEG (NEG); ZZURINE CULT IF INDIC CATH YES
[2016-06-19 10:54] LABS: MANUAL MICROSCOPIC REQUIRED? NO; REVIEW REQ? YES; URINE BILIRUBIN NEG (NEG); URINE COLOR AMBER
[2016-06-19] MEDS ORDERED: PANTOprazole INJ 40 MG in SYRINGE 0 ML IV SCH (11:00)
[2016-06-19] MEDS: PANTOprazole SOD 40 MG TAB PO SCH (11:39)
[2016-06-19] MEDS: HYDROCODONE/ACETAMOPHEN 5/325MG TAB PO PRN ×2 (11:40→19:27)
[2016-06-19] MEDS ORDERED: HEPARIN IV BOLUS 7,000 UNIT in SYRINGE 0 ML IV ONE (14:00)
[2016-06-19] MEDS ORDERED: CEFAZOLIN 1000MG/55 ML D5W 55 ML IV ONE (14:00)
[2016-06-19] MEDS: CIPROFLOXACIN / D5W 400 MG in PREMIXED IN D5W 200 ML IV SCH (19:28)
[2016-06-19] MEDS: TAMSULOSIN HCL 0.4 MG CAP PO SCH (19:29)
--- NOTE | 2016-06-19 20:11 | PROGRESS NOTE ---
DATE: 06/19/2016 A 61-year-old male, admitted with: 1. Acute ischemia of the left foot. 2. Severe occlusive peripheral arterial disease. 3. Adenocarcinoma of the lung, status post surgery, radiation and chemotherapy. 4. Arterial hypertension. 5. Bipolar disorder. 6. Peripheral neuropathy. The patient was admitted. He was immediately seen by Dr. Ac. He was taken to the operating room. He had an angiogram done. Dr. Ac was able to treat the occlusive lesion in his right iliac artery, but the left one was not amenable to percutaneous angioplasty, so the patient ended up having a fem-fem bypass. The procedure was well-tolerated. The patient was kept in ICU overnight. This morning, he is doing quite well. He denied any headache. No dizziness. No chest pain, no shortness of breath. No abdominal pain, except at the incision site in the right groin area. He does have a Swartz catheter in place. He is not having any pain in his feet. PHYSICAL EXAMINATION: GENERAL: Well-developed, in no distress. VITAL SIGNS: Blood pressure 104/66, pulse 87, respirations 22, temperature 36.7 and oxygen saturation 94% on 2 liters oxygen by nasal cannula. SKIN: Warm and dry. No rash. HEENT: He has dentures. Oxygen cannula is in place. NECK: No JVD, no adenopathy. HEART: Regular heart sounds. LUNGS: Clear. ABDOMEN: Soft. Surgical incisions on lowest part of the abdomen. BACK: No spinal tenderness. EXTREMITIES: Both feet are warm to touch. There are no ischemic changes. Still the pedal pulses can be documented only by Doppler. Still absent left dorsalis pedis pulse even with the Doppler. LABORATORY TESTS: WBC count 7720, hemoglobin 10, hematocrit 28.4, platelet count 210,000. Sodium 132, potassium 4.2, chloride 96, CO2 25, BUN 8, creatinine 0.39, glucose 97 and calcium 8.1. Urinalysis showed evidence of urinary tract infection. ASSESSMENT: 1. Acute ischemia of the left foot. 2. Severe peripheral arterial disease, occlusive. 3. Status post femorofemoral bypass. 4. Arterial hypertension. 5. Urinary tract infection. 6. Bipolar disorder. 7. Peripheral neuropathy. PLAN: 1. His condition is stable. 2. He was transferred to PCU with telemetry. 3. His urine culture was sent and is pending, but he does have evidence of urinary tract infection on his urinalysis. We will start ciprofloxacin pending the culture results. 4. His activity will be increased. 5. We will need to decide depending on how he does in the next 2 days, whether he is going to be able to go home, he lives by himself in an apartment or whether he will need a rehab stay.
[2016-06-19] MEDS: LEVALBUTEROL 1.25MG/3ML NEB INH SCH (23:29)
[2016-06-20] VITALS (14 sets, daily range): BP systolic 96–118; BP diastolic 64–77; PULSE 54–109; TEMP 36.8–37.5; O2SAT 92–100
[2016-06-20] MEDS: CIPROFLOXACIN / D5W 400 MG in PREMIXED IN D5W 200 ML IV SCH ×2 (07:00→19:37)
[2016-06-20] MEDS: LEVALBUTEROL 1.25MG/3ML NEB INH SCH ×3 (08:20→19:29)
[2016-06-20] MEDS: BENZTROPINE MESYLATE 1 MG TAB PO SCH ×2 (08:47→19:39)
[2016-06-20] MEDS: ASPIRIN 81 MG ECTAB PO SCH (08:48)
[2016-06-20] MEDS: METOPROLOL SUCC 25MG EXT REL TAB PO SCH (08:48)
[2016-06-20] MEDS: DOCUSATE SODIUM/SENNA 50/8.6MG TAB PO SCH ×2 (08:48→19:39)
[2016-06-20] MEDS: MEMANTINE 5 MG TAB PO SCH (08:48)
[2016-06-20] MEDS: BuPROPion SR 150 MG TABCR PO SCH ×2 (08:48→19:38)
[2016-06-20] MEDS: PANTOprazole SOD 40 MG TAB PO SCH (08:48)
[2016-06-20] MEDS: HALOPERIDOL 5 MG TAB PO SCH ×2 (08:49→19:39)
[2016-06-20] MEDS: DIVALPROEX 500 MG EXTENDED RELEASE TAB PO SCH ×2 (08:49→19:39)
--- NOTE | 2016-06-20 10:24 | Progress Note ---
Progress Note Date of Service: Jun 20, 2016. Subjective Complaining of mild left thigh and knee pain. No foot pain Problem List Medical Problems: (1) Acute bronchitis Status: Acute (2) Anemia Status: Acute (3) Hyponatremia Status: Acute (4) Left upper quadrant pain Status: Acute (5) Mass of upper lobe of left lung Status: Acute (6) Shortness of breath Status: Acute (7) Thrush Status: Acute Objective Vital Signs Vital Signs Past 12 Hours Date Time Temp Pulse Resp B/P Pulse Ox O2 Delivery O2 Flow Rate FiO2 06/20/16 08:20 98 16 97 Nasal Cannula 2.0 06/20/16 08:00 100 Nasal Cannula 2.0 06/20/16 07:50 36.9 97 20 110/73 100 Nasal Cannula 3.0 06/20/16 04:00 Room Air 06/20/16 03:28 36.9 109 20 118/77 95 Room Air 06/20/16 00:12 37.2 99 18 108/67 98 Room Air 06/20/16 00:00 Room Air 06/19/16 23:29 97 16 95 Room Air Exam VSS Afebrile Groin wounds clean and dry Doppler signal left post tib artery Foot warm and pink Intake & Output 8-Hour Column 06/19/16 06/20/16 06/20/16 16:00 00:00 08:00 Intake Total 489 ml 200 ml Output Total 225 ml 750 ml 1650 ml Balance 264 ml -750 ml -1450 ml 24-Hour Column 06/20/16 08:00 Intake Total 689 ml Output Total 2625 ml Balance -1936 ml Imp: Post right iliac architectural job captain and cross fem bypass for limb salvage Plan: Doing well. Increase activity. Will need placement for a short period of time at discharge being he lives alone.
[2016-06-20] MEDS: HYDROCODONE/ACETAMOPHEN 5/325MG TAB PO PRN ×2 (15:24→23:58)
--- NOTE | 2016-06-20 17:09 | PROGRESS NOTE ---
DATE: 06/20/2016 SUBJECTIVE: A 61-year-old male admitted with acute ischemia of his left foot. He has severe occlusive peripheral arterial disease. His medical history is also significant for arterial hypertension, bipolar disorder, peripheral neuropathy. The patient was taken to the operating room shortly after his admission by Dr. Ac. He ended up having to do a fem-fem bypass. The procedure was quite successful. His left foot reperfused immediately. At this time, he seems to be feeling comfortable. Denied any headache. No dizziness. No chest pain, no shortness of breath. Last night during the night he was having some wheezing and I did start him on Xopenex. Denied any abdominal pain, no nausea, no vomiting. No problem with his bowel movements. He had a Swartz catheter in. No pain in his back. He does complain of some pain in his groins at the site of the incisions. He is also complaining of some discomfort in the posterior aspect of his left heel. PHYSICAL EXAMINATION: GENERAL: Well developed in no distress. VITAL SIGNS: Blood pressure 110/73, pulse 97, respirations 20, temperature 36.9, oxygen saturation 100% on 3 liter oxygen by nasal cannula. SKIN: Warm and dry. No rash. HEENT: Oxygen cannula in place. NECK: No JVD. No adenopathy. HEART: Regular heart sounds. LUNGS: Clear. ABDOMEN: Soft, nontender. EXTREMITIES: Both feet are quite warm. His pedal pulses are detectable by Doppler. His left heel is dry and has calluses and also has cracks in it. There is an area of a small hematoma. ASSESSMENT: 1. Acute ischemia of left foot. 2. Severe peripheral arterial disease. 3. Peripheral neuropathy. 4. Bipolar disorder. PLAN: 1. His Swartz catheter was removed. 2. Continue protecting his left hip. 3. He is getting out of bed and moving. 4. Therapies have been ordered. 5. The patient lives by himself. It is difficult for him to go back independently. The other important limitation is his peripheral neuropathy and bilateral foot drop. He dose need to use prosthetics. We need to consider rehab stay. We will ask case management to start working on that issue. [facility]OSPITALIvon
[2016-06-20] MEDS: TAMSULOSIN HCL 0.4 MG CAP PO SCH (19:38)
[2016-06-21] VITALS (15 sets, daily range): BP systolic 86–131; BP diastolic 57–75; PULSE 76–106; TEMP 36.6–37; O2SAT 95–100
[2016-06-21] MEDS: LEVALBUTEROL 1.25MG/3ML NEB INH SCH ×4 (02:00→19:30)
[2016-06-21] MEDS: CIPROFLOXACIN / D5W 400 MG in PREMIXED IN D5W 200 ML IV SCH ×2 (06:57→18:04)
[2016-06-21 07:02] LABS: MEAN CELL VOLUME 87.8 fL (80-100); MEAN CORPUSCULAR HEMOGLOBIN 29.7 pg (25-34); MEAN CORPUSCULAR HGB CONC 33.8 g/dl (32-36); MEAN PLATELET VOLUME 9.1 fL (7.4-10.4); PLATELET COUNT 196 K/uL (130-400); RED BLOOD COUNT 2.96 M/uL (4.7-6.1); WHITE BLOOD COUNT 10.35 K/uL (4.8-10.8)
--- NOTE | 2016-06-21 07:46 | Anesthesiology Progress Note ---
Anesthesia Post Op Note Date & Time Jun 21, 2016 at 07:45 Vital Signs Pain Intensity: 5.0 Vital Signs Past 12 Hours Date Time Temp Pulse Resp B/P Pulse Ox O2 Delivery O2 Flow Rate FiO2 06/21/16 07:43 36.9 93 19 86/57 98 Room Air 06/21/16 04:06 36.9 106 18 113/75 96 Room Air 06/21/16 04:00 95 Room Air 06/21/16 02:01 87 16 97 Room Air 06/21/16 00:00 95 Room Air 06/20/16 23:46 37.5 87 18 112/67 94 Room Air 06/20/16 20:00 95 Room Air Notes Mental Status: alert / awake / arousable, participated in evaluation Pt Amnestic to Procedure: Yes Nausea / Vomiting: adequately controlled Pain: adequately controlled Airway Patency, RR, SpO2: stable & adequate BP & HR: stable & adequate Hydration State: stable & adequate Anesthetic Complications: no major complications apparent
[2016-06-21] MEDS: BENZTROPINE MESYLATE 1 MG TAB PO SCH ×2 (08:36→23:25)
[2016-06-21] MEDS: DIVALPROEX 500 MG EXTENDED RELEASE TAB PO SCH ×2 (08:36→23:26)
[2016-06-21] MEDS: HALOPERIDOL 5 MG TAB PO SCH ×2 (08:37→23:24)
[2016-06-21] MEDS: MEMANTINE 5 MG TAB PO SCH (08:37)
[2016-06-21] MEDS: PANTOprazole SOD 40 MG TAB PO SCH (08:38)
[2016-06-21] MEDS: DOCUSATE SODIUM/SENNA 50/8.6MG TAB PO SCH ×2 (08:38→23:23)
[2016-06-21] MEDS: BuPROPion SR 150 MG TABCR PO SCH ×2 (08:39→23:24)
[2016-06-21] MEDS: ASPIRIN 81 MG ECTAB PO SCH (08:39)
[2016-06-21] MEDS: SODIUM CHLORIDE 0.9% 1000ML 1,000 ML IV SCH ×2 (08:40→21:35)
--- NOTE | 2016-06-21 10:44 | Progress Note ---
Progress Note Date of Service: Jun 21, 2016. Subjective 61 yo m with multiple medical problems, POD #3 after R to L fem fem bypass and R iliac RESORT MANAGER, seen in f/u today. Pt admits pain in BL groins/thighs, but states is doing well overall. Denies any new complaints. Problem List Medical Problems: (1) Acute bronchitis Status: Acute (2) Anemia Status: Acute (3) Hyponatremia Status: Acute (4) Left upper quadrant pain Status: Acute (5) Mass of upper lobe of left lung Status: Acute (6) Shortness of breath Status: Acute (7) Thrush Status: Acute Objective Vital Signs Vital Signs Past 12 Hours Date Time Temp Pulse Resp B/P Pulse Ox O2 Delivery O2 Flow Rate FiO2 06/21/16 10:12 36.6 96 18 101/62 100 Room Air 06/21/16 09:30 36.9 93 19 98 3.0 06/21/16 08:22 36.9 93 19 98 06/21/16 07:53 Room Air 06/21/16 07:43 36.9 93 19 86/57 98 Room Air 06/21/16 07:20 76 16 95 Room Air 06/21/16 04:06 36.9 106 18 113/75 96 Room Air 06/21/16 04:00 95 Room Air 06/21/16 02:01 87 16 97 Room Air 06/21/16 00:00 95 Room Air 06/20/16 23:46 37.5 87 18 112/67 94 Room Air Exam CONST: A&O x3, NAD, chronically ill appearing male EXT: BL groin incisions C/D/I with amisha. + local tenderness, edema, ecchymosis. BL distal pulses nonpalpable, but + wtih doppler. L foot erythematous, +cap refill. Small black eschar to L lateral heel. Intake & Output 8-Hour Column 06/20/16 06/21/16 06/21/16 16:00 00:00 08:00 Intake Total 380 ml 440 ml 100 ml Output Total 800 ml 1000 ml 950 ml Balance -420 ml -560 ml -850 ml 24-Hour Column 06/21/16 08:00 Intake Total 920 ml Output Total 2750 ml Balance -1830 ml Laboratory and Microbiology Results Past 24 Hours Test 06/21/16 06:13 Range/Units White Blood Count 10.35 4.8-10.8 K/uL Red Blood Count 2.96 4.7-6.1 M/uL Hemoglobin 8.8 14.0-18.0 g/dL Hematocrit 26.0 42-52 % Mean Corpuscular Volume 87.8 80-100 fL Mean Corpuscular Hemoglobin 29.7 25-34 pg Mean Corpuscular Hemoglobin Concent 33.8 32-36 g/dl RDW Standard Deviation 54.8 36.4-46.3 fL RDW Coefficient of Variation 17.0 11.5-14.5 % Platelet Count 196 130-400 K/uL Mean Platelet Volume 9.1 7.4-10.4 fL ASSESSMENT and PLAN: s/p R-L fem fem BPG, R iliac detective captain/stent LLE ischemia Pt doing well post op. Continue current plan per medicine.
[2016-06-21 16:00] LABS: URINE APPEARANCE CLEAR (CLEAR); URINE BILIRUBIN NEG (NEG); URINE COLOR YELLOW; URINE NITRITE NEG (NEG); URINE SPECIFIC GRAVITY 1.004 (1.000-1.030); UROBILINOGEN NEG (NEG)
[2016-06-21 16:01] LABS: MANUAL MICROSCOPIC REQUIRED? NO; REVIEW REQ? NO
[2016-06-21] MEDS: HYDROCODONE/ACETAMOPHEN 5/325MG TAB PO PRN ×2 (18:06→23:27)
--- NOTE | 2016-06-21 23:13 | PROGRESS NOTE ---
DATE: 06/21/2016 HISTORY OF PRESENT ILLNESS: A 61-year-old male admitted with acute ischemia of his left foot. He has severe peripheral arterial disease and iliac occlusions. He was seen by Dr. Ac. He was taken to the operating room and eventually ended up having a fem-fem bypass. His left foot was revascularized very nicely immediately after surgery. Overall, he is doing well. He does have a problem with urinary retention which has happened before during his hospitalization. He does see Dr. Lee in urology. Last night, he had urinary retention and was catheterized twice. Today during the day, he was also noted to be in urinary retention. A Swartz catheter was placed. He is already on Flomax. He denied any headache or dizziness or lightheadedness. Denied any chest pain, no shortness of breath. No abdominal pain, no nausea, no vomiting. No problem with his bowel movements. He has urinary retention as noted. No pain in his back. His left groin pain has subsided and this is the site of his incisions. No left foot pain. PHYSICAL EXAMINATION: GENERAL: Well developed, in no distress. VITAL SIGNS: Blood pressure 86/57, pulse 93, respirations 19, temperature 36.9, and oxygen saturation 98% on room air. SKIN: Warm and dry. No rash. HEENT: No mucosal abnormality. NECK: No JVD. No adenopathy. HEART: Regular heart sounds. LUNGS: Clear. ABDOMEN: Soft, nontender. BACK: No spinal tenderness. EXTREMITIES: Both feet are warm and normal color. Pulses are detected only by Doppler. His left heel is still showing calluses and cracking and a hematoma. There is no evidence of any infection. ASSESSMENT: 1. Acute ischemia of left foot. 2. Severe peripheral arterial disease and iliac disease. 3. Arterial hypotension. 4. Bipolar disorder. 5. Urinary retention. 6. Adenocarcinoma of the lung status post treatment with surgery, radiation therapy and chemotherapy. PLAN: 1. As noted, the Swartz catheter was placed during the day today. Urinalysis initially showed evidence of infection. Culture was negative. But he did receive IV antibiotics prior to that. Urinalysis today is normal. Urology consult requested because of the retention. He saw Dr Ricks in the past. 2. Continuing the same medications. 3. He was transferred to a medical bed. 4. We will proceed with his therapies. 5. Again, the issue is with his discharge planning. The patient lives by himself. We will not be able to go home immediately. He needs rehab. AMELIA
[2016-06-21] MEDS: TAMSULOSIN HCL 0.4 MG CAP PO SCH (23:23)
[2016-06-22] VITALS (9 sets, daily range): BP systolic 99–148; BP diastolic 66–81; PULSE 70–109; TEMP 36.2–36.9; O2SAT 95–100
[2016-06-22] MEDS: LEVALBUTEROL 1.25MG/3ML NEB INH SCH ×4 (02:09→20:31)
[2016-06-22] MEDS: CIPROFLOXACIN / D5W 400 MG in PREMIXED IN D5W 200 ML IV SCH ×2 (05:49→18:44)
[2016-06-22] MEDS: HYDROCODONE/ACETAMOPHEN 5/325MG TAB PO PRN ×2 (05:50→13:24)
[2016-06-22] MEDS: BuPROPion SR 150 MG TABCR PO SCH ×2 (07:28→20:39)
[2016-06-22] MEDS: HALOPERIDOL 5 MG TAB PO SCH ×2 (07:28→20:40)
[2016-06-22] MEDS: BENZTROPINE MESYLATE 1 MG TAB PO SCH ×2 (07:28→20:37)
[2016-06-22] MEDS: DOCUSATE SODIUM/SENNA 50/8.6MG TAB PO SCH ×2 (07:28→20:38)
[2016-06-22] MEDS: ASPIRIN 81 MG ECTAB PO SCH (07:29)
[2016-06-22] MEDS: DIVALPROEX 500 MG EXTENDED RELEASE TAB PO SCH ×2 (07:29→20:38)
[2016-06-22] MEDS: MEMANTINE 5 MG TAB PO SCH (07:29)
[2016-06-22] MEDS: PANTOprazole SOD 40 MG TAB PO SCH (07:29)
[2016-06-22 07:49] LABS: EOS % 0.9 %; HEMATOCRIT 25.1 % (42-52); IG% 0.8 %; LYMPH % 7.9 %; MEAN CELL VOLUME 87.8 fL (80-100); MEAN CORPUSCULAR HEMOGLOBIN 30.4 pg (25-34); MEAN CORPUSCULAR HGB CONC 34.7 g/dl (32-36); MEAN PLATELET VOLUME 8.6 fL (7.4-10.4); MONO % 13.2 %; NEUT % 77.2 %; PLATELET COUNT 198 K/uL (130-400); RED BLOOD COUNT 2.86 M/uL (4.7-6.1)
[2016-06-22 08:13] LABS: ANISOCYTOSIS PRESENT; COMPLETE YES
[2016-06-22 08:14] LABS: BUN/CREATININE RATIO 11.8 (10-20); CALCIUM 8.8 mg/dl (8.5-10.1); CREATININE 0.39 mg/dl (0.60-1.40); POTASSIUM 3.7 mmol/L (3.5-5.1)
[2016-06-22 08:17] LABS: ALB/GLOB RATIO 0.5 (0.9-2)
--- NOTE | 2016-06-22 08:21 | Urology Consultation ---
History General Date of Service: Jun 22, 2016. Chief Complaint: urinary retention Primary Care Physician: Benja López M.D. Pt seen a urologist before?: Yes (Dr. Tang) If yes, why?: BPH History of Present Illness 61 yo with post-op urinary retention. Pt straight cathed x 2 yesterday, and gallegos catheter replaced now draining clear, yellow urine. The pt has a hx of BPH for which he has seen Dr. Beth in the past, and was taking Flomax and Avodart at home. He reports baseline weak stream and hesitancy for quite some time. Dr. Lee previously discussed TURP with him at this appt last year, but he was not interested in any surgery at that time. He is currently on Flomax while inpatient. Laboratory Labs were reviewed and are within normal limits unless listed below. Labs are available in the chart and at [facility] Problem List Medical Problems: (1) Acute bronchitis Status: Acute (2) Anemia Status: Acute (3) Hyponatremia Status: Acute (4) Left upper quadrant pain Status: Acute (5) Mass of upper lobe of left lung Status: Acute (6) Shortness of breath Status: Acute (7) Thrush Status: Acute Past History bipolar disorder, BPH, cancer - lung, depression, GERD, hypertension, seizure, other (peripheral neuropathy, PAD, cellulitis of the inguinal/scrotal area) Past Surgical History: vasectomy, other (aortogram, SHIRT FINISHER right external iliac artery occlusion) Family History No pertinent family history Social History Hx Tobacco Use In Past Year?: Yes (trying to quit past 2 days. ) Smoking: less than 1 pack/day Alcohol: history of alcohol abuse Drug use: none Marital status: Occupation status: retired Immunizations History of Influenza Vaccine: Yes History of Tetanus Vaccine?: Unknown History of Pneumococcal: No History of Hepatitis B Vaccine: Unknown History of MDRO No Allergies Coded Allergies: No Known Allergies (Unverified , 06/01/16) Medications Home Medications: Home Meds and Scripts Medications Dose Route/Sig Max Daily Dose Days Date Category Mucinex Dm Maximum Streng (Dextromethorphan-Guaifenesin) 1 Tab Tab 1 Tab PO BID 05/31/16 Reported Stool Softener (Sennosides-Docusate Sodium) 1 Tab Tab 1 Tab PO BID 05/31/16 Reported Aspirin Ec (Aspirin) 81 Mg Tab 81 Mg PO DAILY 05/31/16 Reported Depakote Etended-Release (Divalproex Sodium) 500 Mg Tabcr 500 Mg PO BID 05/31/16 Reported Wellbutrin Sr (Bupropion HCl) 150 Mg Ertab 100 Mg PO QAM 02/07/16 Reported Haldol (Haloperidol) 5 Mg Tab 5 Mg PO BID 01/18/16 Reported Benztropine Mesylate 1 Mg Tab 1 Mg PO BID 01/18/16 Reported Namenda (Memantine) 5 Mg Tab 5 Mg PO DAILY 01/18/16 Reported Avodart (Dutasteride) 0.5 Mg Cap 0.5 Mg PO QAM 01/18/16 Reported Flomax (Tamsulosin Hcl) 0.4 Mg Cap 0.4 Mg PO QPM 11/10/14 Reported Toprol Xl (Metoprolol Succinate) 25 Mg Tabcr 25 Mg PO DAILY 11/10/14 Reported Inpatient Medications: Current Inpatient Medications Medications (Trade) Dose Ordered Sig/Rinku Route Start Time Stop Time Status Last Admin Dose Admin Acetaminophen (Tylenol Tab) 650 mg Q4H PRN PO 06/18/16 12:30 07/18/16 12:29 Aspirin (Ecotrin Tab) 81 mg DAILY PO 06/19/16 08:00 07/19/16 07:59 06/22/16 07:29 81 MG Benztropine Mesylate (Cogentin Tab) 1 mg BID PO 06/18/16 20:00 07/18/16 19:59 06/22/16 07:28 1 MG Divalproex Sodium (Depakote Extended Rel Tab) 500 mg BID PO 06/18/16 20:00 07/18/16 19:59 06/22/16 07:29 500 MG Haloperidol (Haldol Tab) 5 mg BID PO 06/18/16 20:00 07/18/16 19:59 06/22/16 07:28 5 MG Memantine (Namenda Tab) 5 mg DAILY PO 06/19/16 08:00 07/19/16 07:59 06/22/16 07:29 5 MG Senna/Docusate Sodium (Senokot S Tab) 1 tab BID PO 06/18/16 20:00 07/18/16 19:59 06/22/16 07:28 1 TAB Tamsulosin HCl (Flomax Cap) 0.4 mg QPM PO 06/18/16 21:00 07/18/16 20:59 06/21/16 23:23 0.4 MG Bupropion HCl (Wellbutrin-Sr Tab) 150 mg BID PO 06/18/16 20:00 07/18/16 19:59 06/22/16 07:28 150 MG Acetaminophen/ Hydrocodone Bitart ([place] 5/325 Tab) 1 tab Q4H PRN PO 06/18/16 12:30 07/02/16 12:29 06/22/16 05:50 1 TAB Ondansetron HCl (Zofran Inj) 4 mg Q6H PRN IV 06/18/16 17:30 07/18/16 17:29 06/18/16 20:10 4 MG Pantoprazole Sodium 40 mg 40 mg QAM PO 06/19/16 11:00 07/19/16 10:59 06/22/16 07:29 40 MG Ciprofloxacin/ Dextrose/Prmx (Cipro / D5w/ Premixed D5W) 200 ml @ 100 mls/hr Q12H IV 06/19/16 19:00 06/24/16 18:59 06/22/16 05:49 100 MLS/HR Levalbuterol 1.25 mg 1.25 mg Q6R INH 06/20/16 03:00 07/20/16 02:59 06/22/16 07:21 1.25 MG Sodium Chloride (Nss 1000ml) 1,000 ml @ 75 mls/hr [id number] IV 06/21/16 08:15 07/21/16 08:14 06/21/16 21:35 75 MLS/HR Review of Systems Review of Systems Constitutional: No chills, No fever Eyes: No double vision Neurological: No dizzy Endocrine: No excessive thirst Gastrointestinal: No abdominal pain, No nausea, No vomiting Cardiovascular: + chest pain (chronic s/p lung ca treatment) Respiratory: + shortness of breath (chronic s/p lung ca treatment) Skin: No rash Musculoskeletal: + arthritis Male : + urinary retention Physical Exam Vital Signs: Vital Signs Past 12 Hours Date Time Temp Pulse Resp B/P Pulse Ox O2 Delivery O2 Flow Rate FiO2 06/22/16 07:36 36.2 95 18 100/66 98 Room Air 06/22/16 07:23 96 16 98 Room Air 06/22/16 00:00 96 Room Air 06/21/16 23:48 36.7 98 20 131/72 96 Room Air Physical Exam: General Appearance: no apparent distress Eyes: bilateral eyes normal inspection ENT: hearing grossly normal Neck: no JVD Respiratory/Chest: no respiratory distress, no accessory muscle use Cardiovascular: no JVD Extremities: normal inspection Neurologic/Psychiatric: alert, normal mood/affect, oriented x 3 Skin: normal color Assessment & Plan Assessment & Plan A/P: BPH with urinary retention AFVSS. Recommend leaving gallegos catheter in place for 7-10 days. Will plan for TOV as outpatient at that time. Continue Flomax. Will initiate finasteride while inpatient. Resume Avodart once discharged. Will plan for outpatient f/u with Dr. Beth in 2 weeks. Thanks for the consult. No further management at this time. Recall PRN issues. Thanks for allowing us to participate in this pt's care.
--- NOTE | 2016-06-22 11:32 | Progress Note ---
Progress Note Date of Service: Jun 22, 2016. Subjective 61 YO m with multiple medical problems, POD # 4 after R-L fem-fem BPG and CASE CONSULTANT of R iliac artery, seen in f/u today. Pt states feeling better, less groin pain. Denies any new complaints or foot pain. Problem List Medical Problems: (1) Acute bronchitis Status: Acute (2) Anemia Status: Acute (3) Hyponatremia Status: Acute (4) Left upper quadrant pain Status: Acute (5) Mass of upper lobe of left lung Status: Acute (6) Shortness of breath Status: Acute (7) Thrush Status: Acute Objective Vital Signs Vital Signs Past 12 Hours Date Time Temp Pulse Resp B/P Pulse Ox O2 Delivery O2 Flow Rate FiO2 06/22/16 11:16 36.4 93 18 99/67 99 Room Air 06/22/16 09:41 98 Room Air 06/22/16 07:36 36.2 95 18 100/66 98 Room Air 06/22/16 07:23 96 16 98 Room Air 06/22/16 00:00 96 Room Air 06/21/16 23:48 36.7 98 20 131/72 96 Room Air Exam CONST: A&O x4, NAD, chronically ill appearing male, color improved today EXT: BL groin incisions C/D/I with amisha, + local edema and tenderness, soft ecchymosis. Distal pulses nonpalpable, but + with doppler. Toes brisk cap refill. Feet/toes warm and pink. L lateral heel with large crack/pressure area , beginning eschar over crack area. Intake & Output 8-Hour Column 06/21/16 06/22/16 06/22/16 16:00 00:00 08:00 Intake Total 584 ml 884 ml Output Total 1350 ml 1800 ml 1200 ml Balance -766 ml -1800 ml -316 ml 24-Hour Column 06/22/16 08:00 Intake Total 1468 ml Output Total 4350 ml Balance -2882 ml Laboratory and Microbiology Results Past 24 Hours Test 06/22/16 07:25 Range/Units White Blood Count 7.60 4.8-10.8 K/uL Red Blood Count 2.86 4.7-6.1 M/uL Hemoglobin 8.7 14.0-18.0 g/dL Hematocrit 25.1 42-52 % Mean Corpuscular Volume 87.8 80-100 fL Mean Corpuscular Hemoglobin 30.4 25-34 pg Mean Corpuscular Hemoglobin Concent 34.7 32-36 g/dl Platelet Count 198 130-400 K/uL Mean Platelet Volume 8.6 7.4-10.4 fL Neutrophils (%) (Auto) 77.2 % Lymphocytes (%) (Auto) 7.9 % Monocytes (%) (Auto) 13.2 % Eosinophils (%) (Auto) 0.9 % Basophils (%) (Auto) 0.0 % Neutrophils # (Auto) 5.87 1.4-6.5 K/uL Lymphocytes # (Auto) 0.60 1.2-3.4 K/uL Monocytes # (Auto) 1.00 0.11-0.59 K/uL Eosinophils # (Auto) 0.07 0-0.5 K/uL Basophils # (Auto) 0.00 0-0.2 K/uL RDW Standard Deviation 56.5 36.4-46.3 fL RDW Coefficient of Variation 17.3 11.5-14.5 % Immature Granulocyte % (Auto) 0.8 % Immature Granulocyte # (Auto) 0.06 0.00-0.02 K/uL Anisocytosis PRESENT Sodium Level 132 136-145 mmol/L Potassium Level 3.7 3.5-5.1 mmol/L Chloride Level 97 98-107 mmol/L Carbon Dioxide Level 24 21-32 mmol/L Anion Gap 11.0 3-11 mmol/L Blood Urea Nitrogen 5 7-18 mg/dl Creatinine 0.39 0.60-1.40 mg/dl Est Creatinine Clear Calc Drug Dose 209.2 ml/min Estimated GFR () 149.1 Estimated GFR (Non- 128.6 BUN/Creatinine Ratio 11.8 10-20 Random Glucose 104 70-99 mg/dl Calcium Level 8.8 8.5-10.1 mg/dl Total Bilirubin 0.3 0.2-1 mg/dl Aspartate Amino Transf (AST/SGOT) 19 15-37 U/L Alanine Aminotransferase (ALT/SGPT) 13 12-78 U/L Alkaline Phosphatase 72 45-117 U/L Total Protein 6.3 6.4-8.2 gm/dl Albumin 2.2 3.4-5.0 gm/dl Globulin 4.1 2.5-4.0 gm/dl Albumin/Globulin Ratio 0.5 0.9-2 ASSESSMENT and PLAN: s/p R-L fem fem bpg and R iliac CASE CONSULTANT, d/t LLE acute ischemia Severe aortoiliac disease/BL iliac art occlusions Pt doing well post op. OK for dc to rehab from vascular standpoint when medically stable. Will see in office in 2 weeks for staple removal.
[2016-06-22] MEDS: FINASTERIDE 5 MG TAB PO SCH (12:04)
[2016-06-22] MEDS: SODIUM CHLORIDE 0.9% 1000ML 1,000 ML IV SCH (12:05)
[2016-06-22] MEDS: TAMSULOSIN HCL 0.4 MG CAP PO SCH (20:37)
--- NOTE | 2016-06-22 23:50 | PROGRESS NOTE ---
DATE: 06/22/2016 SUBJECTIVE: A 61-year-old male admitted with acute ischemia of his left foot. He has severe peripheral arterial disease. He is also treated for arterial hypertension, has adenocarcinoma of the lung, which was treated with surgery, radiation and chemotherapy and also has bipolar disorder. The patient underwent percutaneous transluminal angioplasty of the right iliac artery. He also underwent a fem-fem bypass. Done by Dr. Ac. Overall, his condition improved. The ischemia of his left foot resolved. He denied any headache or dizziness or lightheadedness. No chest pain, no shortness of breath. No abdominal pain, no nausea, no vomiting. He is tolerating his diet. No back pain. He does have a Swartz catheter. He presented with urinary retention. He is having some discomfort in the groins at the site of the incisions, but otherwise no significant pain in his legs. PHYSICAL EXAMINATION: GENERAL: Well developed, in no distress. VITAL SIGNS: Blood pressure 100/66, pulse 95, respirations 18, temperature 36.2, oxygen saturation 98% on room air. SKIN: Warm and dry. No rash. HEENT: No mucosal abnormality. NECK: No JVD. No adenopathy. HEART: Regular heart sounds. LUNGS: Clear. ABDOMEN: Soft, nontender. BACK: No spinal tenderness. EXTREMITIES: Both feet are nice and warm. He does have a hematoma of his left heel. ASSESSMENT: 1. Acute ischemia, left foot. 2. Peripheral arterial disease. 3. Adenocarcinoma of the lung. 4. Urinary retention. PLAN: 1. The patient is stable. His condition is improved. 2. Continuing his same medications. 3. His blood pressure is improving. 4. The intent is for him to go to [facility]. We are working on that approval and will transfer him as soon as that is obtained.
[2016-06-23] VITALS (7 sets, daily range): BP systolic 85–117; BP diastolic 56–71; PULSE 100–123; TEMP 36.5–37; O2SAT 90–98
[2016-06-23] MEDS: LEVALBUTEROL 1.25MG/3ML NEB INH SCH ×4 (02:16→20:46)
[2016-06-23] MEDS: SODIUM CHLORIDE 0.9% 1000ML 1,000 ML IV SCH (03:51)
[2016-06-23] MEDS: HYDROCODONE/ACETAMOPHEN 5/325MG TAB PO PRN ×3 (03:52→19:42)
[2016-06-23 06:11] LABS: HEMATOCRIT 24.8 % (42-52); MEAN CELL VOLUME 87.3 fL (80-100); MEAN CORPUSCULAR HEMOGLOBIN 30.3 pg (25-34); MEAN CORPUSCULAR HGB CONC 34.7 g/dl (32-36); MEAN PLATELET VOLUME 8.6 fL (7.4-10.4); PLATELET COUNT 243 K/uL (130-400); RED BLOOD COUNT 2.84 M/uL (4.7-6.1); WHITE BLOOD COUNT 9.24 K/uL (4.8-10.8)
[2016-06-23] MEDS: CIPROFLOXACIN / D5W 400 MG in PREMIXED IN D5W 200 ML IV SCH (06:36)
[2016-06-23] MEDS: PANTOprazole SOD 40 MG TAB PO SCH (08:01)
[2016-06-23] MEDS: MEMANTINE 5 MG TAB PO SCH (08:01)
[2016-06-23] MEDS: BENZTROPINE MESYLATE 1 MG TAB PO SCH ×2 (08:01→19:37)
[2016-06-23] MEDS: FINASTERIDE 5 MG TAB PO SCH (08:01)
[2016-06-23] MEDS: DOCUSATE SODIUM/SENNA 50/8.6MG TAB PO SCH ×2 (08:01→19:36)
[2016-06-23] MEDS: ASPIRIN 81 MG ECTAB PO SCH (08:01)
[2016-06-23] MEDS: BuPROPion SR 150 MG TABCR PO SCH ×2 (08:02→19:36)
[2016-06-23] MEDS: HALOPERIDOL 5 MG TAB PO SCH ×2 (08:02→19:37)
[2016-06-23] MEDS: DIVALPROEX 500 MG EXTENDED RELEASE TAB PO SCH ×2 (08:02→19:36)
[2016-06-23] MEDS: TAMSULOSIN HCL 0.4 MG CAP PO SCH (20:58)
--- NOTE | 2016-06-23 21:35 | PROGRESS NOTE ---
DATE: 06/23/2016 A 61-year-old male, admitted with ischemic left foot. He has severe peripheral arterial disease and arterial hypertension. He is a smoker. He was also diagnosed with adenocarcinoma of the lung and had treatment with surgery, radiation therapy and chemotherapy. The patient was taken to the operating room immediately after admission by Dr. Ac and he underwent a percutaneous transluminal angioplasty of the right iliac artery, but the left one could not be opened up, so he ended up having a fem-fem bypass with good results. During his hospitalization, he also had urinary retention and he required catheterization intermittently first, but then, we had to keep an indwelling Swartz catheter in place. He is doing quite well. No headache, no dizziness. No chest pain, no shortness of breath. No abdominal pain, no nausea, no vomiting. Good appetite. No pain in his back. No pain in his extremities. He is undergoing physical therapy. He also has peripheral neuropathy and foot drop both feet and he does wear prostheses on both feet. PHYSICAL EXAMINATION: GENERAL: Well-developed, in no distress. VITAL SIGNS: Blood pressure initially this morning was 85/56, pulse 112, respirations 16, temperature 36.8 and oxygen saturation 95% on room air. Later on during the day, his blood pressure improved to 95/61. SKIN: Warm and dry. No rash. HEENT: No mucosal abnormalities. He has dentures. NECK: No JVD. No adenopathy. HEART: Regular heart sounds. LUNGS: Clear. ABDOMEN: Soft and nontender. BACK: No spinal tenderness. GROIN: Surgical scars, healing nicely. EXTREMITIES: Both feet are warm. Has slight edema. No clubbing or cyanosis. ASSESSMENT: 1. Acute ischemia of left foot. 2. Severe peripheral arterial disease. 3. Status post femorofemoral bypass. 4. Status post percutaneous transluminal angioplasty of the right iliac artery. 5. Hypotension. 6. Previously treated for arterial hypertension. 7. Peripheral neuropathy. 8. Adenocarcinoma of the lung. PLAN: 1. His IV fluid was discontinued. IV Cipro was also discontinued. 2. We were hoping to get him to the rehab hospital today, but unfortunately his insurance company did not approve it, so we are working on other options. He is accepting to go to [facility] facility until he gets stronger. We will see if that can be accomplished tomorrow.
[2016-06-24 02:09] VITALS: PULSE 95; O2SAT 95
[2016-06-24] MEDS: LEVALBUTEROL 1.25MG/3ML NEB INH SCH ×4 (02:09→19:31)
[2016-06-24 07:16] VITALS: PULSE 103; O2SAT 97
[2016-06-24 07:37] VITALS: BP 97/58; PULSE 109; TEMP 36.8; O2SAT 100
[2016-06-24] MEDS: BENZTROPINE MESYLATE 1 MG TAB PO SCH ×2 (09:15→20:47)
[2016-06-24] MEDS: DIVALPROEX 500 MG EXTENDED RELEASE TAB PO SCH ×2 (09:15→20:48)
[2016-06-24] MEDS: DOCUSATE SODIUM/SENNA 50/8.6MG TAB PO SCH ×2 (09:16→20:48)
[2016-06-24] MEDS: BuPROPion SR 150 MG TABCR PO SCH ×2 (09:16→20:47)
[2016-06-24] MEDS: MEMANTINE 5 MG TAB PO SCH (09:16)
[2016-06-24] MEDS: ASPIRIN 81 MG ECTAB PO SCH (09:16)
[2016-06-24] MEDS: PANTOprazole SOD 40 MG TAB PO SCH (09:16)
[2016-06-24] MEDS: HALOPERIDOL 5 MG TAB PO SCH ×2 (09:16→20:47)
[2016-06-24] MEDS: FINASTERIDE 5 MG TAB PO SCH (09:16)
[2016-06-24] MEDS: HYDROCODONE/ACETAMOPHEN 5/325MG TAB PO PRN ×2 (12:59→18:48)
--- NOTE | 2016-06-24 14:05 | Progress Note ---
Progress Note Date of Service: Jun 24, 2016. Subjective No complaints Problem List Medical Problems: (1) Acute bronchitis Status: Acute (2) Anemia Status: Acute (3) Hyponatremia Status: Acute (4) Left upper quadrant pain Status: Acute (5) Mass of upper lobe of left lung Status: Acute (6) Shortness of breath Status: Acute (7) Thrush Status: Acute Objective Vital Signs Vital Signs Past 12 Hours Date Time Temp Pulse Resp B/P Pulse Ox O2 Delivery O2 Flow Rate FiO2 06/24/16 09:10 Room Air 06/24/16 07:37 36.8 109 16 97/58 100 Room Air 06/24/16 07:16 103 16 97 Room Air 06/24/16 02:09 95 16 95 Room Air Exam Groin incisions dry and clean Foot viable Doppler flow still present Intake & Output 8-Hour Column 06/23/16 06/24/16 06/24/16 16:00 00:00 08:00 Intake Total 875 ml 900 ml 220 ml Output Total 950 ml 675 ml Balance -75 ml 225 ml 220 ml 24-Hour Column 06/24/16 08:00 Intake Total 1995 ml Output Total 1625 ml Balance 370 ml Imp: Post left leg revascularization Plan: Patient doing well. Awaiting [facility] bed.
[2016-06-24 14:11] VITALS: PULSE 78; O2SAT 95
[2016-06-24 19:31] VITALS: PULSE 85; O2SAT 96
[2016-06-24] MEDS: TAMSULOSIN HCL 0.4 MG CAP PO SCH (20:48)
[2016-06-24 23:42] VITALS: BP 108/69; PULSE 104; TEMP 37; O2SAT 95
[2016-06-25 01:25] VITALS: PULSE 85; O2SAT 96
[2016-06-25] MEDS: LEVALBUTEROL 1.25MG/3ML NEB INH SCH ×3 (01:25→14:19)
[2016-06-25 06:18] LABS: HEMATOCRIT 26.4 % (42-52); MEAN CELL VOLUME 89.2 fL (80-100); MEAN CORPUSCULAR HEMOGLOBIN 29.7 pg (25-34); MEAN CORPUSCULAR HGB CONC 33.3 g/dl (32-36); MEAN PLATELET VOLUME 8.5 fL (7.4-10.4); PLATELET COUNT 301 K/uL (130-400); RED BLOOD COUNT 2.96 M/uL (4.7-6.1); WHITE BLOOD COUNT 7.76 K/uL (4.8-10.8)
--- NOTE | 2016-06-25 06:58 | PROGRESS NOTE ---
DATE: 06/24/2016 A 61-year-old as male admitted with acute ischemia of his left foot. He has severe peripheral arterial disease. He underwent ECONOMICS DEPARTMENT CHAIR of the right iliac artery and fem-fem bypass. The procedure was successful. Overall, his condition has improved. He has multiple other medical problems including bipolar disorder, which is stable. He has severe peripheral arterial disease, arterial hypertension, and adenocarcinoma of the lung. Overall, his condition has improved. He denied any headache or dizziness. No chest pain, no shortness of breath. No abdominal pain, no nausea, no vomiting. No problem with his bowel movements. He presented with urinary retention and he has a Swartz catheter in place. He is having bilateral leg edema. PHYSICAL EXAMINATION: GENERAL: Well developed, in no distress. VITAL SIGNS: Blood pressure 97/58, pulse 109, respirations 16, temperature 36.8, oxygen saturation 100% on room air. SKIN: Warm and dry. No rash. HEENT: No mucosal abnormality. He has dentures. NECK: No JVD, no adenopathy. HEART: Regular heart sounds. LUNGS: Clear. ABDOMEN: Soft, nontender. BACK: No spinal tenderness. EXTREMITIES: Bilateral leg edema. He does have warm feet. Pedal pulses could not be manually palpated. He also developed an area of inflammation in his left forearm site of an IV. ASSESSMENT: 1. Acute ischemia of left foot. 2. Status post ECONOMICS DEPARTMENT CHAIR of the right iliac artery and bilateral fem-pop bypass. 3. Severe peripheral arterial disease. 4. Bipolar disorder. 5. Superficial phlebitis, left forearm. 6. Urinary retention. He has a Swartz catheter in place. PLAN: 1. Continuing all his medications. 2. Warm compresses to his left forearm. 3. Continue monitoring his vascular status. 4. The Swartz catheter will be left in place and he will have a followup with Dr. Lee and attempt to remove it in the future. 5. He has been accepted and his insurance company approved him going to [facility] and we are planning on doing that tomorrow.
[2016-06-25 07:11] VITALS: PULSE 87; O2SAT 99
[2016-06-25] MEDS: DOCUSATE SODIUM/SENNA 50/8.6MG TAB PO SCH (07:16)
[2016-06-25] MEDS: ASPIRIN 81 MG ECTAB PO SCH (07:16)
[2016-06-25] MEDS: FINASTERIDE 5 MG TAB PO SCH (07:16)
[2016-06-25] MEDS: HALOPERIDOL 5 MG TAB PO SCH (07:17)
[2016-06-25] MEDS: PANTOprazole SOD 40 MG TAB PO SCH (07:17)
[2016-06-25] MEDS: MEMANTINE 5 MG TAB PO SCH (07:17)
[2016-06-25] MEDS: DIVALPROEX 500 MG EXTENDED RELEASE TAB PO SCH (07:17)
[2016-06-25] MEDS: BuPROPion SR 150 MG TABCR PO SCH (07:18)
[2016-06-25] MEDS: BENZTROPINE MESYLATE 1 MG TAB PO SCH (07:18)
[2016-06-25 07:51] VITALS: BP 111/71; PULSE 94; TEMP 36.9; O2SAT 100
[2016-06-25] MEDS ORDERED: DUTA0.5C PO (08:11)
[2016-06-25] MEDS ORDERED: SENNTAB23 PO (08:11)
[2016-06-25] MEDS ORDERED: HALO5TAB PO (08:11)
[2016-06-25] MEDS ORDERED: KFL500 PO (08:11)
[2016-06-25] MEDS ORDERED: TYL325X PO (08:11)
[2016-06-25] MEDS ORDERED: TAMS0.4C38 PO (08:11)
[2016-06-25] MEDS ORDERED: DPKSR/500 PO (08:11)
[2016-06-25] MEDS ORDERED: DEXT1TAB50 PO (08:11)
[2016-06-25] MEDS ORDERED: METO25TA3 PO (08:11)
[2016-06-25] MEDS ORDERED: CGN1X PO (08:11)
[2016-06-25] MEDS ORDERED: PRT40 PO (08:11)
[2016-06-25] MEDS ORDERED: BUPR-79 PO (08:11)
[2016-06-25] MEDS ORDERED: NMN5 PO (08:11)
[2016-06-25] MEDS ORDERED: ASPI81TA28 PO (08:11)
--- NOTE | 2016-06-25 08:19 | Discharge Instructions ---
Discharge Instructions Admission Reason for Admission: ACUTE ISCHEMIA LEFT FOOT SEVERE OCCLUSIVE PERIPHERAL ARTERIAL DISEASE ARTERIAL HYPERTENSION URINARY RETENTION BIPOLAR DISORDER CELLULITIS AND SUPERFICIAL PHLEBITIS LEFT FOREARM Discharge Discharge Diagnosis / Problem: ACUTE ISCHEMIA LEFT FOOT. URINARY RETENTION. BIPOLAR DISORDER. CELLULITIS Discharge Goals Goal(s): Decrease discomfort, Improve function, Increase independence, Improve disease control, Improve nutritional status, Learn about illness Activity Recommendations Activity Level: Assistance Required Therapies: Physical Therapy, Occupational Therapy . Additional Information Patient informed of condition: Yes Advance Directives: No DNR: No Level of Care: Skilled Communicable Disease: No Prognosis: Improving Paige Catheter: Yes Instructions / Follow-Up Instructions / Follow-Up NEEDS APPOINTMENT WITH DR KOENIG IN ONE WEEK APPOINTMENT WITH DR ANDERSEN IN ONE WEEK PROTECT LEFT FEEL PAIGE CATHETER CARE WARM COMPRESSES TO LEFT FOREARM FOR 3 DAYS Current Hospital Diet Patient's current hospital diet: AHA Diet (Heart Healthy) Discharge Diet Recommended Diet: Regular Diet Procedures Procedures Performed: Aortogram DIRECTOR TRAFFIC AND PLANNING right external iliac artery occlusion Pending Studies Studies pending at discharge: no Medical Emergencies . Who to Call and When: Medical Emergencies: If at any time you feel your situation is an emergency, please call 911 immediately. . Non-Emergent Contact Non-Emergency issues call your: Primary Care Provider . . "Provider Documentation" section prepared by Benja Pereira. Core Measure Problem Core Measures: None
[2016-06-25] MEDS ORDERED: CEPHALEXIN MONOHYDRATE 500 MG CAP PO SCH (12:00)
[2016-06-25 13:40] VITALS: BP 111/71; PULSE 94; TEMP 36.9; O2SAT 100
--- NOTE | 2016-06-25 22:17 | PROGRESS NOTE ---
DATE: 06/25/2016 SUBJECTIVE: A 61-year-old male admitted with acute ischemia of his left foot. He has severe peripheral arterial disease. He is also treated for arterial hypertension and has bipolar disorder. The patient underwent a revascularization procedure by Dr. Ac shortly after he was admitted. The procedure was well tolerated. Condition of his leg markedly improved. Overall, he has been stable. He denied any headache. No dizziness, no lightheadedness. No chest pain, no shortness of breath. No abdominal pain, no nausea, no vomiting. Last night when I saw him, he did have bilateral leg edema, but this morning while he was still in bed, there was no edema in his ankles and lower legs and feet whatsoever. He was also complaining of persistent pain and swelling in his left forearm. PHYSICAL EXAMINATION: GENERAL: Well developed, in no distress. VITAL SIGNS: Blood pressure 111/71, pulse 94, respirations 18, temperature 36.9, oxygen saturation 100% on room air. SKIN: Warm and dry. No rash. HEENT: No evidence of any mucosal abnormality. NECK: No JVD. No adenopathy. HEART: Regular heart sounds. LUNGS: Clear. ABDOMEN: Soft, nontender. EXTREMITIES: No edema, clubbing, or cyanosis. Both feet are warm. He does have a superficial phlebitis and cellulitis of his left forearm. ASSESSMENT: 1. Acute ischemia of left foot. 2. Status post revascularization procedure. 3. Severe peripheral arterial disease. 4. Arterial hypertension. 5. Hyperlipidemia. 6. Bipolar disorder. 7. Superficial phlebitis and cellulitis, left forearm at the site of a previous IV access. PLAN: 1. He was started on oral Keflex. 2. Continuing all his medications. 3. Continue applying warm compresses to the left forearm. 4. All his arrangements were completed for him to go to [facility] for his rehabilitation. His insurance approved it, so arrangements were made for him to go today. All his transfer orders and prescriptions were completed. 5. The patient is to see Dr. Ac in 1 week. He also to see Dr. Lee in 1 week for attempt to remove the Swartz catheter. He did present with urinary retention during his hospitalization. Also appropriate care to be provided so his left heel is protected. He has a hematoma.
[2016-07-06] MEDS ORDERED: SODIENE PR (09:28)
[2016-07-06] MEDS ORDERED: ACET-1311 PO (09:28)
[2016-07-06] MEDS ORDERED: [UNRECOGNIZED DRUG - OTHER] SQ (09:28)
[2016-07-06] MEDS ORDERED: AUGMENTIN PO (09:28)
[2016-07-06] MEDS ORDERED: BISA10SU38 PR (09:28)
[2016-07-06] MEDS ORDERED: SENN8.6C PO (09:28)
[2016-07-06] MEDS ORDERED: ASPCH81X PO (09:28)
[2016-07-06] MEDS ORDERED: NICO14DI5 TD (09:28)
[2016-07-06] MEDS ORDERED: MOML PO (09:28)
[2016-07-06] MEDS ORDERED: BENZ2TAB6 PO (09:28)
[2016-07-06] MEDS ORDERED: PANT40TA PO (09:28)
--- NOTE | 2016-07-09 04:00 | DISCHARGE SUMMARY ---
DISCHARGE DIAGNOSES: 1. Acute ischemia of the left foot. 2. Severe occlusive peripheral arterial disease. 3. Arterial hypertension. 4. Urinary retention. 5. Bipolar disorder. 6. Cellulitis and superficial phlebitis of the left forearm. 7. Hematoma, left heel. 8. Carcinoma of the lung DISCHARGE MEDICATIONS: Included: 1. Tylenol 650 mg every 4 hours as needed. 2. Cephalexin 500 mg 4 times a day for 7 days. 3. Protonix 40 mg daily. 4. Aspirin 81 mg daily. 5. Benztropine mesylate 1 mg twice a day. 6. Wellbutrin SR 150 mg in the morning. 7. Mucinex DM 1 tablet twice a day. 8. Depakote extended-release 500 mg twice a day. 9. Avodart 0.5 mg daily. 10. Haldol 5 mg twice a day. 11. Namenda 5 mg daily. 12. Metoprolol succinate 25 mg daily. 13. Stool softener 1 tablet daily in the form of sennosides, docusate sodium. 14. Tamsulosin 0.4 mg daily. CONSULTATIONS: 1. Dr. David Ac in vascular surgery. 2. Dr. Maximino Lee in urology. PROCEDURE: 1. Percutaneous transluminal angioplasty of the right iliac artery. 2. Fem-fem bypass from right to left. A 61-year-old male admitted directly from the office with acute ischemia of the left foot and left lower leg. The patient with complex medical history as noted above. He was seen in the office acutely because he was complaining of pain in his left foot. The pain has been progressive for the last 2-3 days. He denied any trauma. No fall. He denied any fever or chills. On examination, he had ischemia of the left foot and lower third of his left lower leg. Arrangements were made for admission. I also spoke with Dr. Ac in vascular surgery and requested a consultation. PAST MEDICAL HISTORY, SOCIAL HISTORY AND FAMILY HISTORY: All as noted. ALLERGIES: None. MEDICATIONS ON ADMISSION: All as noted. PHYSICAL EXAMINATION AND ADMISSION LABORATORY TESTS: All as noted. HOSPITAL COURSE: The patient was admitted directly from the office. Soon after he was admitted, he was immediately seen by Dr. Ac. He took him to the operating room. He was able to do a LIQUOR RUNNER and angioplasty on the right side, but the left side artery was hardened and 100% occluded. So he ended up having a fem-fem bypass. The procedure was well tolerated. The patient was admitted to ICU after the procedure. The surgery and the intervention resulted in flow to his left foot. His pulses could be detected by Doppler only, but the color of his foot improved immediately and his foot was more warm and the pain was subsiding. Postoperatively, he did well. He was transferred to PCU and also subsequently was transferred to medical bed. Physical and occupational therapies were ordered. The patient developed urinary retention. He required catheterization. A Swartz catheter was kept in place. Urology consultation was requested. The plan was to maintain the Swartz in place for about [address] Lee will see him in the office and attempt to remove the Swartz catheter. The patient was noted to have what seems to be a hematoma in the left heel. Initially, there was no open skin and no discharge from the area. The patient also developed superficial phlebitis and cellulitis of his left forearm which was the site of an IV. Overall, his condition improved. He was tolerating his diet. He was tolerating his therapies. We attempted to get him to [facility], but unfortunately his insurance company did not approve it. So we ended up transferring him to [facility] [place]. AMELIA
[2016-07-09] MEDS ORDERED: SNTONWC EX (11:08)
[2016-07-09] MEDS ORDERED: OXYC-57 PO ×2 (11:08→11:19)
[2016-07-15] MEDS ORDERED: HALO5TAB PO (09:28)
[2016-07-15] MEDS ORDERED: TAMS0.4C38 PO (09:28)
[2016-07-15] MEDS ORDERED: METO25TA3 PO (09:28)
[2016-07-15] MEDS ORDERED: DIVA500T59 PO (09:28)
[2016-07-15] MEDS ORDERED: DEXT30TA7 PO (09:28)
[2016-07-15] MEDS ORDERED: NMN5 PO (09:28)
[2016-07-15] MEDS ORDERED: DUTA0.5C PO (09:28)
[2016-07-15] MEDS ORDERED: BUPR100T8 PO (09:28)
[2016-07-16] MEDS ORDERED: AMOX500C3 PO (15:29)
--- NOTE | 2016-07-23 11:13 | OPERATIVE REPORT ---
DATE OF OPERATION: 06/18/2016 PREOPERATIVE DIAGNOSIS: Left lower extremity ischemia. POSTOPERATIVE DIAGNOSIS: Same. PROCEDURE: Right to left femoral femoral bypass. SURGEON: Dr. Ac. ANESTHETIC: General. PROCEDURE INDICATIONS: The patient is a 59-year-old gentleman who occluded both bilateral iliac arteries and has rest pain in his left leg. Attempt was made for endovascular approach. Best we could do was to open up the right side. It was now recommended we do a cross femoral bypass. The patient was then anesthetized with general anesthesia. Bilateral groin incisions were made. The common femoral arteries were exposed on both sides. There was moderate plaque on both arteries but they were fairly soft. Subcutaneous tunnel was made suprapubically. An 8 mm patent graft was passed through the tunnel. The right side was then addressed first. The common femoral artery was clamped proximally and distally. Longitudinal arteriotomy was then made. The Berkeley-Marvin graft was beveled and end-to-side anastomosis was accomplished using a CV5 Berkeley-Marvin suture in the usual vascular fashion. Clamp was then placed on the graft. Clamps removed from the common femoral artery to restore circulation to the right leg. Next, the left common femoral artery was clamped proximally and distally. Longitudinal arteriotomy was then made. The graft was then beveled appropriately and then end-to-side anastomosis was accomplished using the CV5 Berkeley-Marvin suture in the usual vascular fashion. Prior to completing the closure, backbleeding and forward bleeding was allowed to occur and final few sutures were placed and securely tied. Clamps were removed. Excellent flow was seen going through the profunda femoral artery. There was a Doppler signal heard in the foot at that time. At that point, adequate hemostasis was noted of the wounds. The wounds were then closed in the usual fashion using running 2-0 Vicryl suture for the femoral sheath, 3-0 Vicryl for the subcutaneous layer and amisha for the skin. Sterile dressings were applied. The patient went to the recovery room in good condition and tolerated the procedure well. I attest to the content of the Intraoperative Record and any orders documented therein. Any exceptio ns are noted below.
--- NOTE | 2016-07-26 10:46 | DIAGNOSTIC IMAGING REPORT ---
DATE OF PROCEDURE: 06/18/2016 PREOPERATIVE DIAGNOSIS: Left lower extremity ischemia. POSTOPERATIVE DIAGNOSIS: Same. PROCEDURE: 1. Aortogram. 2. Balloon angioplasty, right external iliac artery occlusions. SURGEON: Dr. Ac. ANESTHETIC: MAC. PROCEDURE INDICATIONS: The patient is a 61-year-old gentleman who presented with severe ischemia of left lower extremity. He did have stents placed in the past in the past. On exam, he has occluded both iliac arteries. Revascularization was recommended and he was having rest pain in the left leg. The risks, options and benefits and agreed to go ahead with this procedure. DESCRIPTION OF PROCEDURE: The patient was taken to the angiogram suite and placed in the supine position. After groins were prepped and draped in a sterile manner, local anesthetic was administered. A puncture was made in the right common femoral artery. A 5-[place] sheath was inserted. Hand injection showed occlusion of the right common iliac artery. This was an area of an old stent. A wire was passed through this lesion. We then tried to get on the other side. An aortogram was performed once the wire was passed. This was done through a pigtail. The pigtail showed that the external iliac on the right was small and the common iliac was patent. The left iliac system was completely occluded with reconstitution of the common femoral artery in the groin. At that point, we punctured of the common femoral artery of the left groin. Another 0.035 wire was then passed upward using a quick cross at 0.035 wire. There was an attempt made to cross the lesion. We could not get across and get into true lumen at that time. At that point, we decided the best thing would be to balloon the external iliac on the right and then perform a cross fem bypass for limb salvage. Using a 6 x 100 [place] balloon, the right external iliac was dilated. It responded nicely and an excellent flow. At that point, both puncture sites were closed with a Star closure device. We then proceeded to surgical part, which will be dictated in separate report. [facility]
[2016-08-11] MEDS ORDERED: ZINC1CAP PO (10:40)
[2016-08-11] MEDS ORDERED: ASCO500C43 PO (10:40)
[2016-08-11] MEDS ORDERED: NICO1DIS9 TOP (10:40)
[2016-08-11] MEDS ORDERED: MULT-506 PO (10:40)
[2016-08-11] MEDS ORDERED: PROT1POW (10:40)
[2016-08-25] MEDS ORDERED: VANC1INJ71 IV (11:41)
[2016-08-25] MEDS ORDERED: CPRS5005 PO (11:41)
[2016-09-23] MEDS ORDERED: SULF800T23 PO (14:04)
[2016-10-06] MEDS ORDERED: ZSYI45 IV (08:45)
[2016-10-20] MEDS ORDERED: LINE1TAB2 PO (10:19)
[2016-10-20] MEDS ORDERED: CLOTCRE33 TOP (10:19)
[2016-11-03] MEDS ORDERED: CLOTCRE33 TOP (09:38)
[2016-11-12] MEDS ORDERED: NMN5 PO (10:07)
[2016-11-12] MEDS ORDERED: HYDR-3126 PO (10:07)
[2016-11-12] MEDS ORDERED: MULTTAB63 PO (10:07)
[2016-11-12] MEDS ORDERED: LINE1TAB6 PO (10:07)
[2016-11-12] MEDS ORDERED: MELA1TAB54 PO (10:07)
[2016-11-12] MEDS ORDERED: ARTIOIN OP (10:07)
[2016-11-12] MEDS ORDERED: PRLSR20 PO (10:07)
[2016-11-12] MEDS ORDERED: TEMA15CA4 PO (10:08)
[2016-11-17] MEDS ORDERED: LINE1TAB6 PO (09:49)
[2016-12-15] MEDS ORDERED: LORA-741 PO (09:27)
[2016-12-29] MEDS ORDERED: LINE1TAB6 PO ×2 (09:43→09:44)
[2017-02-23] MEDS ORDERED: DIVA500T59 PO (08:26)
[2017-02-23] MEDS ORDERED: BUPR-83 PO (08:26)
[2017-02-23] MEDS ORDERED: QUET1TAB30 PO (08:26)
[2017-02-23] MEDS ORDERED: CYAN10005 PO (08:27)
== END 2016-06-25 14:35 | DRG 253 ==
LOC: ENRESERVTM → ENRESERVDT → C.4E 12:21 → C.MSICU 18:46 → C.2T 06-19 10:16 → C.4E 06-21 10:05
PROVIDERS: ADMIT Internal Medicine; ATTEND Internal Medicine
PROC: B41D1ZZ Fluoroscopy of Aorta and Bilateral Lower Extremity Arteries using Low Osmolar Contrast (ICD-10-PCS; 2016-06-18)
PROC: 041 Lower Arteries, Bypass (ICD-10-PCS; principal; 2016-06-18 11:45)
PROC: 047H3ZZ Dilation of Right External Iliac Artery, Percutaneous Approach (ICD-10-PCS; 2016-06-18 11:45)
DX: I70.222 Atherosclerosis of native arteries of extremities with rest pain, left leg (principal); N39.0 Urinary tract infection, site not specified; L03.114 Cellulitis of left upper limb; I70.92 Chronic total occlusion of artery of the extremities; I10 Essential (primary) hypertension; G40.909 Epilepsy, unspecified, not intractable, without status epilepticus; E78.5 Hyperlipidemia, unspecified; Z79.82 Long term (current) use of aspirin; Z79.899 Other long term (current) drug therapy; R33.9 Retention of urine, unspecified; N40.1 Benign prostatic hyperplasia with lower urinary tract symptoms; K21.9 Gastro-esophageal reflux disease without esophagitis; M19.90 Unspecified osteoarthritis, unspecified site; F31.9 Bipolar disorder, unspecified; F20.9 Schizophrenia, unspecified; M79.81 Nontraumatic hematoma of soft tissue; F17.210 Nicotine dependence, cigarettes, uncomplicated; I80.8 Phlebitis and thrombophlebitis of other sites; M21.372 Foot drop, left foot; M21.371 Foot drop, right foot; Z85.118 Personal history of other malignant neoplasm of bronchus and lung; Z98.52 Vasectomy status; G62.9 Polyneuropathy, unspecified

== ENCOUNTER → 2016-07-05 | Outpatient (CLI) | payer OTHER ==
[~2016-07-05] MED LIST changes: +ACET-1222 PO; +ACET-1256 PO; +ACET-1311 PO; +AMOX500C3 PO; +ARTIOIN OP; +ASCA500 PO; +ASCO500C43 PO; +ASPCH81X PO; +AUGMENTIN PO; +BENZ2TAB6 PO; +BISA10SU38 PR; +BUPR-83 PO; +BUPR100T8 PO; +CEPH500C2 PO; +CGN1 PO; +CIPR-255 PO; +CLOTCRE33 TOP; +CPRS5005 PO; +CYAN10005 PO; +DEXT30TA7 PO; +DIVA500T5 PO; +DIVA500T59 PO; +DOCU100C PO; +DOCU100C31 PO; +FOLI1TAB7 PO; +HYDR-3126 PO; +KFL500 PO; +LINE1TAB2 PO; +LINE1TAB6 PO; +LORA-741 PO; +MELA1TAB54 PO; +MOML PO; +MOMLX PO; +MULT-506 PO; +MULTTAB63 PO; +NICO14DI5 TD; +NICO1DIS9 TOP; +OXYC-57 PO; +PANT40TA PO; +PRED10TA PO; +PRLSR20 PO; +PROT1POW; +PRT40 PO; +QUET1TAB30 PO; +SENN8.6C PO; +SNTO30 EXT; +SNTONWC EX; +SODIENE PR; +SULF800T23 PO; +TEMA15CA4 PO; +TRAM-10 PO; +TYL325X PO; +VANC1INJ71 IV; +WLLSR100 PO; +ZINC1CAP PO; +ZSYI45 IV; +[UNRECOGNIZED DRUG - CODE] IV; +[UNRECOGNIZED DRUG - OTHER] SQ
[2016-07-05 08:57] LABS: BASO % 0.2 %; BASO ABS # 0.01 K/uL (0-0.2); COMPLETE YES; EOS % 1.7 %; HEMATOCRIT 27.9 % (42-52); IG% 0.6 %; LYMPH % 10.7 %; LYMPH ABS # 0.58 K/uL (1.2-3.4); MEAN CELL VOLUME 86.6 fL (80-100); MEAN CORPUSCULAR HEMOGLOBIN 29.2 pg (25-34); MEAN CORPUSCULAR HGB CONC 33.7 g/dl (32-36); MEAN PLATELET VOLUME 8.9 fL (7.4-10.4); MONO % 15.3 %; NEUT % 71.5 %; PLATELET COUNT 324 K/uL (130-400); RED BLOOD COUNT 3.22 M/uL (4.7-6.1); WHITE BLOOD COUNT 5.42 K/uL (4.8-10.8)
[2016-07-05 09:04] LABS: BLOOD UREA NITROGEN 9 mg/dl (7-18); BUN/CREATININE RATIO 14.3 (10-20); CALCIUM 8.7 mg/dl (8.5-10.1); CARBON DIOXIDE 27 mmol/L (21-32); CHLORIDE 94 mmol/L (98-107); CREATININE 0.61 mg/dl (0.60-1.40); GLUCOSE 88 mg/dl (70-99); POTASSIUM 4.2 mmol/L (3.5-5.1); SODIUM 130 mmol/L (136-145)
== END ==
LOC: C.LABCC 08:47
PROVIDERS: ATTEND Internal Medicine
DX: D64.9 Anemia, unspecified (principal); E87.1 Hypo-osmolality and hyponatremia

== ENCOUNTER → 2016-07-07 | Outpatient (CLI) | payer OTHER ==
[~2016-07-07] MED LIST changes: -BUPR-79 PO; -CGN1X PO; -DEXT1TAB50 PO; -DPKSR/500 PO; -KFL500 PO; -PRT40 PO; -SENNTAB23 PO; -TYL325X PO
== END ==
LOC: C.LABCC 18:50
PROVIDERS: ATTEND Internal Medicine
DX: E87.1 Hypo-osmolality and hyponatremia (principal)

== ENCOUNTER → 2016-07-07 | Outpatient (CLI) | payer OTHER ==
[2016-07-07 10:24] LABS: MAGNESIUM 1.8 mg/dl (1.8-2.4); THYROID STIMULATING HORMONE 2.2 uIu/ml (0.300-4.500)
== END | disposition home or self-care (01) ==
LOC: C.LABCC 09:28
PROVIDERS: ATTEND Internal Medicine
DX: G40.909 Epilepsy, unspecified, not intractable, without status epilepticus (principal); E87.1 Hypo-osmolality and hyponatremia; K21.9 Gastro-esophageal reflux disease without esophagitis; Z51.81 Encounter for therapeutic drug level monitoring; Z79.899 Other long term (current) drug therapy

== ENCOUNTER 2016-07-09 09:26 | Day surgery (SDC) | payer OTHER ==
[2016-07-06 09:29] VITALS: BMI 28.0
--- NOTE | 2016-07-06 10:00 | PAT Medication Instructions ---
Service Date Jul 06, 2016. Current Home Medication List Acetaminophen (Tylenol), 650 MG PO Q6H PRN for Pain or Fever Aspirin (Aspirin Chewable), 81 MG PO QAM Benztropine Mesylate (Benztropine Mesylate), 2 MG PO BID Bisacodyl (Dulcolax), 1 SUPP CO UD PRN for CONSTIPATION Bupropion (Wellbutrin Sr), 100 MG PO QAM Dextromethorphan-Guaifenesin (Mucinex Dm), 1 TAB PO Q12 Divalproex Sodium (Depakote), 1 TAB PO BID Dutasteride (Avodart), 0.5 MG PO QAM Haloperidol (Haldol), 5 MG PO BID Magnesium Hydroxide (Milk Of Magnesia), 30 ML PO UD PRN for CONSTIPATION Memantine (Namenda), 5 MG PO QAM Metoprolol Succinate (Toprol Xl), 25 MG PO QAM Nicotine (Nicoderm Cq 14MG Patch), 1 PATCH TD DAILY Pantoprazole (Protonix), 40 MG PO QAM Sennosides (Senna), 1 TAB PO BID Sodium Phosphate/Biphosphate (Fleet Enema), 1 EA CO UD PRN for CONSTIPATION Tamsulosin Hcl (Flomax), 0.4 MG PO QPM [Augmentin], 250 MG PO BID [Tst 2ND Step], 0.1 ML SQ DAILY Medication Instructions For Your Scheduled Surgery - Need to check with surgeon for instructions (okay from anesthesia perspective) Aspirin (Aspirin Chewable), 81 MG PO QAM - Hold the following medications the morning of surgery: Sodium Phosphate/Biphosphate (Fleet Enema), 1 EA CO UD PRN for CONSTIPATION Sennosides (Senna), 1 TAB PO BID Nicotine (Nicoderm Cq 14MG Patch), 1 PATCH TD DAILY Magnesium Hydroxide (Milk Of Magnesia), 30 ML PO UD PRN for CONSTIPATION Dutasteride (Avodart), 0.5 MG PO QAM Dextromethorphan-Guaifenesin (Mucinex Dm), 1 TAB PO Q12 Bisacodyl (Dulcolax), 1 SUPP CO UD PRN for CONSTIPATION - Take the following medications the morning of surgery with a sip of water: [Augmentin], 250 MG PO BID Pantoprazole (Protonix), 40 MG PO QAM Metoprolol Succinate (Toprol Xl), 25 MG PO QAM Memantine (Namenda), 5 MG PO QAM Haloperidol (Haldol), 5 MG PO BID Divalproex Sodium (Depakote), 1 TAB PO BID Bupropion (Wellbutrin Sr), 100 MG PO QAM Acetaminophen (Tylenol), 650 MG PO Q6H PRN for Pain or Fever Benztropine Mesylate (Benztropine Mesylate), 2 MG PO BID - Take the following medications as scheduled the night before surgery: [Augmentin], 250 MG PO BID Tamsulosin Hcl (Flomax), 0.4 MG PO QPM Sodium Phosphate/Biphosphate (Fleet Enema), 1 EA CO UD PRN for CONSTIPATION Sennosides (Senna), 1 TAB PO BID Magnesium Hydroxide (Milk Of Magnesia), 30 ML PO UD PRN for CONSTIPATION Haloperidol (Haldol), 5 MG PO BID Divalproex Sodium (Depakote), 1 TAB PO BID Dextromethorphan-Guaifenesin (Mucinex Dm), 1 TAB PO Q12 Bisacodyl (Dulcolax), 1 SUPP CO UD PRN for CONSTIPATION Acetaminophen (Tylenol), 650 MG PO Q6H PRN for Pain or Fever Benztropine Mesylate (Benztropine Mesylate), 2 MG PO BID If you have any questions please call us at [phone] (Dionna Sepulveda PA-C) or [phone] or [phone]
[~2016-07-09] VITALS: Ht 172.7 cm; Wt 83.6 kg
--- NOTE | 2016-07-09 06:11 | History and Physical ---
History & Physical Chief Complaint Left heel wound History of present illness 61 yo m with hx of schizoaffective/bipolar disorder, HTN, and lung ca, seen in consultation d/t pain in LLE and concern for ischemia. Pt states he was at home, where he ambulates with leg braces on, and began having pain in L foot about 2-3 days ago. States is constant, waxing and waning occasionally, significantly worse at night. Told his family last evening, who took him to his PCP's office today. PCP sent to [facility] d/t concern for ischemia. Pt recently completed tx for lung ca. He underwent successful revascularization of the left leg. He was transferred to a residential facility but developed a necrotic pressure ulcer of his left heel. Denies CRISOSTOMO, fever, chills, chest pain , SOB,a db pain, N/V, ulcerations, other complaints. 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 Allergies Coded Allergies: No Known Allergies (Unverified , 06/01/16) Home Medications Scheduled Aspirin (Aspirin Ec), 81 MG PO DAILY Benztropine Mesylate (Benztropine Mesylate), 1 MG PO BID Bupropion (Wellbutrin Sr), 100 MG PO QAM Dextromethorphan-Guaifenesin (Mucinex Dm Maximum Streng), 1 TAB PO BID Divalproex Sodium (Depakote Etended-Release), 500 MG PO BID Dutasteride (Avodart), 0.5 MG PO QAM Haloperidol (Haldol), 5 MG PO BID Memantine (Namenda), 5 MG PO DAILY Metoprolol Succinate (Toprol Xl), 25 MG PO DAILY Sennosides-Docusate Sodium (Stool Softener), 1 TAB PO BID Tamsulosin Hcl (Flomax), 0.4 MG PO QPM Problem List Medical Problems: (1) Bipolar disorder (2) ISCHEMIA L FOOT,PAD,LUNG CA (3) Lung mass Surgical / Medical History Hx Cardiac Surgery: No Hx Abdominal Surgery: No Hx Cancer Surgery: No Hx Thoracic Surgery: No Hx Orthopedic: No Hx Urinary Tract Surgery: No Past Medical/Surgical History: Cancer, Hypertension, Other Psy. Disorders Family History No pertinent family history Social History Smoking Status: Current Every Day Smoker Hx Tobacco Use In Past Year?: Yes (trying to quit past 2 days. ) Hx Alcohol Use - Type & Amnt: No Hx Substance Use -Type & Amnt: No Review of Systems Constitutional: No chills, No fever, No malaise Skin: + change in color Eyes: No visual changes ENMT: No sore throat Respiratory: No NEWBY, No short of breath Cardiovascular: + edema, + intermittent claudication, No chest pain, No palpitations, No syncope Gastrointestinal: No abdominal pain, No diarrhea, No nausea, No vomiting Neurologic: + numbness (L foot/toes), + weakness (L foot/toes), No dizziness Physical Exam Constitutional: General Apperance: well-nourished, well-developed Level of Distress: NAD, chronically ill Psychiatric: Mental Status: active & alert, normal mood, normal affect Orientation: oriented except where noted, to time, to place, to person Memory: recent memory normal, remote memory normal Head: normocephalic, atraumatic Eyes: EOM: EOMI ENMT: normal ENT inspection, hearing grossly normal Neck: supple, trachea midline Lungs: Respiratory effort: no dyspnea Auscultation: no rales/crackles, no rhonchi, decreased breath sounds Cardiovascular: Apical Impulse: not displaced Heart Auscultation: RRR, no rubs, no gallops Peripheral Pulses: Pulses: full and equal, in all extremities except if noted Bruits: none appreciated Carotid Pulse: normal on the left, normal on the right Brachial Pulses: normal on the left, normal on the right Radial Pulse: normal on the left, normal on the right Femoral Pulse: absent on the left, absent on the right Posterior Tibialis Pulse: doppler both feet Dorsalis Pedis Pulse: doppler both feet Abdomen: Bowel Sounds: normal Inspection & Palpation: soft, non-distended, no tenderness, guarding & rebound Musculoskeletal: pertinent finding (L foot numbness to above ankle area, unable to dorsiflex or plantar flex foot or toes) Extremities: Upper Right: no cyanosis, no edema, no varicosities Upper Left: no cyanosis, no edema, no varicosities Lower Right: no cyanosis, no edema, no varicosities Lower Left: no cyanosis, no edema, no varicosities, necrotic heel ulcer with drainage Neurologic: Cranial Nerves: grossly intact Sensation: pertinent finding (see musculoskeletal exam) ASSESSMENT and PLAN: Left heel ulcer Plan: Patient is admitted for debridement of his left heel. I have discussed the risks options and benefits of the procedure with the patient. The patient understands the risks options and benefits and agrees to the procedure.
[~2016-07-09 09:26] MED LIST changes: -ACET-1222 PO; -ACET-1256 PO; -AMOX500C3 PO; -ARTIOIN OP; -ASCA500 PO; -ASCO500C43 PO; -ASPI81TA28 PO; -BUPR-83 PO; -BUPR100T8 PO; +CEFAZOLIN 2000 MG/60 ML D5W IV SCH; -CEPH500C2 PO; -CGN1 PO; -CIPR-255 PO; -CLOTCRE33 TOP; -CPRS5005 PO; -CYAN10005 PO; -DEXT30TA7 PO; -DIVA500T5 PO; -DIVA500T59 PO; -DOCU100C PO; -DOCU100C31 PO; -DUTA0.5C PO; -FOLI1TAB7 PO; -HALO5TAB PO; -HYDR-3126 PO; +LACTATED RINGER'S 1000ML 1,000 ML IV SCH; -LINE1TAB2 PO; -LINE1TAB6 PO; -LORA-741 PO; -MELA1TAB54 PO; -METO25TA3 PO; -MOMLX PO; -MULT-506 PO; -MULTTAB63 PO; -NICO1DIS9 TOP; -NMN5 PO; -OXYC-57 PO; -PRED10TA PO; -PRLSR20 PO; -PROT1POW; -QUET1TAB30 PO; -SNTO30 EXT; -SNTONWC EX; +SODIUM CHLORIDE 0.9% 1000ML 1,000 ML IV SCH; -SULF800T23 PO; -TAMS0.4C38 PO; -TEMA15CA4 PO; -TRAM-10 PO; -VANC1INJ71 IV; -WLLSR100 PO; -ZINC1CAP PO; -ZSYI45 IV; -[UNRECOGNIZED DRUG - CODE] IV
[2016-07-09 09:48] VITALS: BP 103/68; PULSE 75; TEMP 36.8; O2SAT 97; Ht 172.7 cm; Wt 83.6 kg
--- NOTE | 2016-07-09 10:08 | History & Physical Bridge Note ---
H&P Re-Evaluation Bridge Note: I have examined the patient, reviewed the History & Physical and in the interval since the performance of the History & Physical I have noted the following changes of clinical significance: No changes noted
[2016-07-09] MEDS ORDERED: MIDAZOLAM HCL 1 MG/ML 2ML VIAL ONE (10:21)
[2016-07-09] MEDS ORDERED: FENTANYL CITRATE INJ 50 MCG/1 ML 2 ML VIAL ONE (10:22)
[2016-07-09 10:57] LABS: BUN/CREATININE RATIO 8.9 (10-20); CALCIUM 8.8 mg/dl (8.5-10.1); CREATININE 0.63 mg/dl (0.60-1.40); POTASSIUM 4.4 mmol/L (3.5-5.1)
--- NOTE | 2016-07-09 11:03 | [facility] Post Operative Brief Note ---
Immediate Operative Summary Operative Date Jul 09, 2016. Pre-Operative Diagnosis Necrotic left heel ulcer Post-Operative Diagnosis Same Procedure(s) Performed Debridement of left heel and irrigation of wound Surgeon Yashira [employer] Manager Surgeon(s) Halie Garcia PAC Estimated Blood Loss 10 Findings Base of wound with bleeding Specimens cultures sent Anesthesia Gen Complication(s) None Disposition Recovery Room / PACU
[2016-07-09] MEDS ORDERED: SNTONWC EX (11:08)
[2016-07-09] MEDS ORDERED: OXYC-57 PO ×2 (11:08→11:19)
[2016-07-09] MEDS ORDERED: BACITRACIN 50,000 UNITS IR ONE (11:09)
--- NOTE | 2016-07-09 11:10 | Discharge Instructions ---
Discharge Instructions Visit Reason for Visit: Left Foot Wound Discharge Discharge Diagnosis / Problem: Necrotic left heel ulcer Discharge Goals Goal(s): Therapeutic intervention Activity Recommendations Activity Limitations: per Instructions/Follow-up section Anesthesia . Post Anesthesia Instructions: If you have had General Anesthesia or IV Sedation: * Do not drive today. * Resume driving when surgeon permits. * Do not make important decisions or sign legal documents today. * Call surgeon for: 1. Temperature elevations greater than 101 degrees F. 2. Uncontrollable pain. 3. Excessive bleeding. 4. Persistent nausea and vomiting. 5. Medication intolerance (nausea, vomiting or rash). * For nausea and vomiting use only clear liquids such as: tea, soda, bouillon until nausea subsides, then gradually increase diet as tolerated. * If you have any concerns or questions, call your surgeon's office. If physician is unavailable and it is an emergency, call 911 or go to the nearest emergency room. . Instructions / Follow-Up Instructions / Follow-Up Call [phone] to schedule a follow up appointment if one not already scheduled. Change dressing daily Apply santyl daily and cover with adaptic, 4x4 and kerlex Arrange patient to be seen in wound center next week ACTIVITY RECOMMENDATIONS: See Above SPECIAL CARE INSTRUCTIONS: Call your doctor if: * Temperature above 101 degrees * Pain not relieved by pain medicine ordered * There is increased drainage or redness from any incision * You have any unanswered questions or concerns. Diet Recommendations Recommended Home Diet: resume previous diet Procedures Procedures Performed: Debridement of left heel and irrigation of wound Pending Studies Studies pending at discharge: no Medical Emergencies . Who to Call and When: Medical Emergencies: If at any time you feel your situation is an emergency, please call 911 immediately. . Non-Emergent Contact Non-Emergency issues call your: Surgeon . . "Provider Documentation" section prepared by David Ac.
[2016-07-09] MEDS ORDERED: FENTANYL CITRATE INJ 50 MCG/1 ML 2 ML VIAL IV PRN (11:15)
[2016-07-09] MEDS ORDERED: ONDANSETRON INJ 2 MG/ML 2 ML VIAL IV PRN (11:15)
[2016-07-09] MEDS ORDERED: ATROPINE SULFATE 0.1 MG/ML 5ML SYR IV PRN (11:15)
[2016-07-09] MEDS ORDERED: LABETALOL HCL IV 5 MG/ML 20ML IV PRN (11:15)
[2016-07-09] MEDS ORDERED: PROPOFOL IV EMULSION 10 MG/ML 20 ML VIAL IV ONE (11:22)
[2016-07-09] MEDS ORDERED: LIDOCAINE HCL 2% 2 ML VIAL (20MG/ML) ONE (11:22)
[2016-07-09] MEDS ORDERED: ONDANSETRON INJ 2 MG/ML 2 ML VIAL ONE (11:22)
--- NOTE | 2016-07-09 11:35 | OPERATIVE REPORT ---
DATE OF OPERATION: 07/09/2016 PREOPERATIVE DIAGNOSIS: Necrotic left heel ulcer. POSTOPERATIVE DIAGNOSIS: Same. PROCEDURE: Debridement left heel ulcer. SURGEON: Dr. Ac. ASH KIER BOILER: Halie Garcia PA-C. ANESTHETIC: General anesthetic. PROCEDURE INDICATIONS: The patient is a 61-year-old gentleman who underwent emergency revascularization of the left lower extremity. Since that time, he has been in a long term. He has developed a heel ulcer on the left heel. It was necrotic with drainage beneath. It was recommended that we debride it and unroof it. He understood the risks, options and benefits and agreed to have this procedure. DESCRIPTION OF PROCEDURE: The patient was taken to the operating room and placed in the supine position. After general anesthesia was accomplished, the left foot was prepped and draped in a sterile manner. The eschar was removed using sharp scalpel dissection. All necrotic tissue beneath and along the edges were removed using the scalpel. Once all necrotic tissue was done, the wound was irrigated with Surgilav. Adequate hemostasis was noted. The wound was then dressed in the usual fashion using iodoform gauze followed by 4x4's and Kerlix. The patient left the operating room in satisfactory condition and tolerated the procedure well. Halie Garica assisted due to lack of resident availability. I attest to the content of the Intraoperative Record and any orders documented therein. Any exceptio ns are noted below.
--- NOTE | 2016-07-09 11:41 | Anesthesiology Progress Note ---
Anesthesia Post Op Note Date & Time Jul 09, 2016 at 11:41 Vital Signs Pain Intensity: 0 Vital Signs Past 12 Hours Date Time Temp Pulse Resp B/P Pulse Ox O2 Delivery O2 Flow Rate FiO2 07/09/16 11:35 75 14 130/79 100 Mask 10 07/09/16 11:25 73 14 98/65 100 Mask 10 07/09/16 11:17 36.1 73 16 106/67 100 Mask 10 07/09/16 09:48 36.8 75 20 103/68 97 Room Air Notes Mental Status: alert / awake / arousable, participated in evaluation Pt Amnestic to Procedure: Yes Nausea / Vomiting: adequately controlled Pain: adequately controlled Airway Patency, RR, SpO2: stable & adequate BP & HR: stable & adequate Hydration State: stable & adequate Anesthetic Complications: no major complications apparent
[2016-07-09 12:15] VITALS: BP 110/70; PULSE 73; TEMP 37; O2SAT 96
[2016-07-09 12:45] VITALS: BP_SYST 109; BP_SYST 126; BP_DIAS 67; BP_DIAS 71; PULSE 76; PULSE 83; TEMP 36.6; O2SAT 97; O2SAT 99
[2016-07-09 13:15] VITALS: BP 109/67; PULSE 83; TEMP 36.6; O2SAT 99
--- NOTE | 2016-07-09 14:14 | Progress Note ---
Progress Note I assisted Dr Ac with Roberth Luther's Debridement of left heel and irrigation of wound on 07/09/16, d/t lack of resident availability.
--- NOTE | 2016-07-13 13:59 | EDITING REQUIRED CODING QUERY ---
DEBRIDEMENT DOCUMENTATION Dr. Ac Date of Service: 07/09/16 To promote full compliance with coding requirements relating to patient care, physician participation is requested in all cases of automation control technician uncertainty. Please assist us with the question(s) below: Please place an X in the parenthesis (x). If other, please document the finding: Type of Debridement: (x ) Excisional Debridement- Cutting away necrotic, devitalized tissue or slough to the level of viable tissue using a sharp instrument (i.e. scalpel, scissors, etc.) ( ) Non Excisional Debridement- The removal of necrotic, devitalized tissue or slough by means of scraping, mechanical brushing, flushing, or washing (i.e. irrigation,whirlpool);minor removal of loose fragments. ( ) Other (please specify): Depth of Debridement: ( ) Skin (x ) Skin and Subcutaneous Tissue ( ) Skin, Subcutaneous Tissue and Muscle ( ) Skin, Subcutaneous Tissue, Muscle and Bone ( ) Other (please specify): Please Specify the Size of Debridement in cm2: 100 Thank you Stacy Nicole, Online Publisher
[2016-07-15] MEDS ORDERED: TAMS0.4C38 PO (09:28)
[2016-07-15] MEDS ORDERED: BUPR100T8 PO (09:28)
[2016-07-15] MEDS ORDERED: DUTA0.5C PO (09:28)
[2016-07-15] MEDS ORDERED: HALO5TAB PO (09:28)
[2016-07-15] MEDS ORDERED: NMN5 PO (09:28)
[2016-07-15] MEDS ORDERED: DIVA500T59 PO (09:28)
[2016-07-15] MEDS ORDERED: METO25TA3 PO (09:28)
[2016-07-15] MEDS ORDERED: DEXT30TA7 PO (09:28)
[2016-07-16] MEDS ORDERED: AMOX500C3 PO (15:29)
[2016-08-03] MEDS ORDERED: DUTA0.5C PO (07:38)
[2016-08-03] MEDS ORDERED: DOCU100C PO (07:38)
[2016-08-03] MEDS ORDERED: DIVA500T59 PO (07:38)
[2016-08-03] MEDS ORDERED: CGN1 PO (07:38)
[2016-08-03] MEDS ORDERED: ASPI81TA28 PO (07:38)
[2016-08-03] MEDS ORDERED: SNTO30 EXT (07:38)
[2016-08-03] MEDS ORDERED: METO25TA3 PO (07:38)
[2016-08-03] MEDS ORDERED: ACET-1222 PO (07:38)
[2016-08-03] MEDS ORDERED: HALO5TAB PO (07:38)
[2016-08-03] MEDS ORDERED: NMN5 PO (07:38)
[2016-08-03] MEDS ORDERED: BUPR100T8 PO (07:38)
[2016-08-03] MEDS ORDERED: FOLI1TAB7 PO (07:38)
[2016-08-03] MEDS ORDERED: TAMS0.4C38 PO (07:38)
[2016-08-11] MEDS ORDERED: ASCO500C43 PO (10:40)
[2016-08-11] MEDS ORDERED: ZINC1CAP PO (10:40)
[2016-08-11] MEDS ORDERED: NICO1DIS9 TOP (10:40)
[2016-08-11] MEDS ORDERED: MULT-506 PO (10:40)
[2016-08-11] MEDS ORDERED: PROT1POW (10:40)
[2016-08-25] MEDS ORDERED: VANC1INJ71 IV (11:41)
[2016-08-25] MEDS ORDERED: CPRS5005 PO (11:41)
[2016-09-23] MEDS ORDERED: SULF800T23 PO (14:04)
[2016-10-06] MEDS ORDERED: ZSYI45 IV (08:45)
[2016-10-20] MEDS ORDERED: LINE1TAB2 PO (10:19)
[2016-10-20] MEDS ORDERED: CLOTCRE33 TOP (10:19)
[2016-11-03] MEDS ORDERED: CLOTCRE33 TOP (09:38)
[2016-11-12] MEDS ORDERED: MELA1TAB54 PO (10:07)
[2016-11-12] MEDS ORDERED: PRLSR20 PO (10:07)
[2016-11-12] MEDS ORDERED: ARTIOIN OP (10:07)
[2016-11-12] MEDS ORDERED: NMN5 PO (10:07)
[2016-11-12] MEDS ORDERED: MULTTAB63 PO (10:07)
[2016-11-12] MEDS ORDERED: HYDR-3126 PO (10:07)
[2016-11-12] MEDS ORDERED: LINE1TAB6 PO (10:07)
[2016-11-12] MEDS ORDERED: TEMA15CA4 PO (10:08)
[2016-11-17] MEDS ORDERED: LINE1TAB6 PO (09:49)
[2016-12-15] MEDS ORDERED: LORA-741 PO (09:27)
[2016-12-29] MEDS ORDERED: LINE1TAB6 PO ×2 (09:43→09:44)
[2017-02-23] MEDS ORDERED: DIVA500T59 PO (08:26)
[2017-02-23] MEDS ORDERED: BUPR-83 PO (08:26)
[2017-02-23] MEDS ORDERED: QUET1TAB30 PO (08:26)
[2017-02-23] MEDS ORDERED: CYAN10005 PO (08:27)
== END 2016-07-09 13:30 | disposition home or self-care (01) ==
LOC: C.ACU 09:26
PROVIDERS: ATTEND Surgery Vascular Surgery
DX: L97.429 Non-pressure chronic ulcer of left heel and midfoot with unspecified severity (principal); I10 Essential (primary) hypertension; Z79.82 Long term (current) use of aspirin; Z79.899 Other long term (current) drug therapy; F31.9 Bipolar disorder, unspecified; F20.9 Schizophrenia, unspecified; F17.210 Nicotine dependence, cigarettes, uncomplicated; Z85.118 Personal history of other malignant neoplasm of bronchus and lung

== ENCOUNTER 2016-07-15 18:40 | Emergency (ER) | payer OTHER ==
[~2016-07-15 18:40] MED LIST changes: +BUPR100T8 PO; -CEFAZOLIN 2000 MG/60 ML D5W IV SCH; +DEXT30TA7 PO; +DIVA500T59 PO; +DUTA0.5C PO; +HALO5TAB PO; -LACTATED RINGER'S 1000ML 1,000 ML IV SCH; +METO25TA3 PO; +NMN5 PO; +OXYC-57 PO; -PANT40TA PO; +SNTONWC EX; -SODIUM CHLORIDE 0.9% 1000ML 1,000 ML IV SCH; +TAMS0.4C38 PO
[2016-07-15 18:45] VITALS: TEMP 36.7; Ht 172.7 cm
[2016-07-15] MEDS ORDERED: SODIUM CHLORIDE 0.9% 500ML 500 ML IV STA (19:23)
[2016-07-15] MEDS ORDERED: HYDROmorphone INJ 0.5 MG/0.5 ML SYR IV STA (19:23)
--- NOTE | 2016-07-15 19:23 | EMERGENCY ROOM VISIT NOTE ---
History Report prepared by Lauren: Julita Dave Under the Supervision of: Dr. Marlon Aguilar M.D. First contact with patient: 19:07 Chief Complaint: LEG PAIN,LEG INJURY Stated Complaint: PAIN IN LT LEG History of Present Illness The patient is a 61 year old male who presents to the Emergency Room with complaints of worsened left foot pain that began this morning. The patient has a history of a fem-fem cath performed by Dr. Ac. He had debridement of the wound on his left heel last week. Per patient's caregiver, the patient has had increased swelling and redness to his left calf since then. Today, he complains of pain at the site of the wound specifically. His pain is an 8/10 in severity. Source of History: patient, spouse/significant other Onset: today Position: foot (left) Symptom Intensity: 8/10 Timing: worsening Review of Systems See HPI for pertinent positives & negatives. A total of 10 systems reviewed and were otherwise negative. Past Medical & Surgical Medical Problems: (1) Bipolar disorder (2) ISCHEMIA L FOOT,PAD,LUNG CA (3) Ischemic rest pain of lower extremity (4) Lung mass Family History No pertinent family history Social History Smoking Status: Current Every Day Smoker Alcohol Use: none Marital Status: Housing Status: lives alone Occupation Status: retired Current/Historical Medications Scheduled Aspirin (Aspirin Ec), 81 MG PO DAILY Benztropine Mesylate (Cogentin), 1 MG PO BID Bupropion (Wellbutrin Sr), 100 MG PO QAM Cephalexin Monohydrate (Keflex), 500 MG PO QID Divalproex Sodium (Depakote), 500 MG PO BID Docusate Sodium (Stool Softener), 100 MG PO QAM Dutasteride (Avodart), 0.5 MG PO QAM Haloperidol (Haldol), 5 MG PO BID Memantine (Namenda), 5 MG PO QAM Metoprolol Succinate (Toprol Xl), 25 MG PO QAM Sulfa/Trimethoprim (Bactrim Ds 800MG/160MG), 1 TAB PO BID Tamsulosin Hcl (Flomax), 0.4 MG PO QPM Scheduled PRN Acetaminophen (Acetaminophen Extra Stren), 500 MG PO UD PRN for Pain or Fever Dextromethorphan-Guaifenesin (Mucinex Dm), 1 TAB PO Q12 PRN for Congestion Allergies Coded Allergies: No Known Allergies (Unverified , 07/06/16) Physical Exam Vital Signs Date Time Temp Pulse Resp B/P Pulse Ox O2 Delivery O2 Flow Rate FiO2 07/15/16 22:35 78 21 111/59 97 07/15/16 22:01 97 Room Air 07/15/16 22:00 78 21 111/59 100 07/15/16 20:30 80 20 111/68 97 Room Air 07/15/16 18:45 36.7 78 20 95/56 Room Air Physical Exam GENERAL: Patient is a healthy-appearing well-nourished 61 year old male HEAD: Normocephalic atraumatic EYES: Ocular movements intact pupils equal and react to light OROPHARYNX mucous membranes are moist no exudates present no erythema or edema present NECK: Supple no nuchal rigidity CHEST: Good equal expansion LUNGS: Clear and equal to auscultation, Wheezing present on Right CARDIAC: Normal S1 and S2 ABDOMEN: Soft nontender no guarding BACK: No CVA tenderness EXTREMITIES: No pain upon palpation normal muscle strength in all groups no clubbing cyanosis or edema LLE: posterior tibial pulse dopplered. Leg itself is swollen and warm, running up midway to the calf. Pt has a necrotic wound on the bottom of his heel, no outright pus or other evidence of infection NEURO: Patient is following commands is answering questions appropriately. Alert and oriented x3 Cranial Nerves 2-12 grossly intact Medical Decision & Procedures ER Provider Diagnostic Interpretation: Radiology results as stated below per my review and radiologist interpretation: LEFT FOOT 3 VIEWS CLINICAL HISTORY: Left foot pain. FINDINGS: 3 views of the left foot are obtained. No prior studies are available for comparison at the time of dictation. The skeletal structures are osteopenic. No fracture is seen. Mild arthritic change is present at the first metatarsophalangeal joint. The joint spaces of the foot are otherwise well-maintained. Mild degenerative spurring is seen along the dorsal aspect of the tarsal bones. There are dorsal and plantar calcaneal enthesophytes. Soft tissue edema is present throughout the foot. Foci of subcutaneous gas are questioned in the heel. No radiodense foreign body is identified. IMPRESSION: 1. Osteopenia, mild arthritic change, and heel spurs as above. No acute bony abnormality is identified. 2. Diffuse soft tissue edema is present throughout the foot. Correlate clinically for evidence of cellulitis. See above. Electronically signed by: Tomy Thompson M.D. 07/15/2016 8:25 PM Dictated Date/Time: 07/15/2016 8:22 PM SINGLE VIEW CHEST CLINICAL HISTORY: Dyspnea. History of lung cancer. FINDINGS: An AP, portable, upright chest radiograph is compared to study dated 06/01/2016 and correlated with chest CT dated 02/05/2016. The examination is degraded by portable technique and apical lordotic positioning. The heart is top normal in size. There is atherosclerotic calcification of the thoracic aorta. The pulmonary vasculature is noncongested. Emphysema and chronic interstitial thickening is unchanged. A left suprahilar nodular density is again noted and was better characterized on prior chest CT scans. Bibasilar atelectasis is noted. There is no airspace consolidation typical for pneumonia or large pleural effusion. No pneumothorax is seen. The bony thorax is grossly intact. Degenerative change is noted in the thoracic spine. IMPRESSION: 1. There is no acute cardiopulmonary abnormality. 2. Emphysema and a left suprahilar pulmonary lesion are again noted. These findings were better characterized on prior chest CT scans. Electronically signed by: Tomy Thompson M.D. 07/15/2016 8:27 PM Dictated Date/Time: 07/15/2016 8:25 PM ULTRASOUND LEFT LOWER EXTREMITY VENOUS CLINICAL HISTORY: Left leg swelling. COMPARISON STUDY: No priors. TECHNIQUE: Real-time, grayscale, and color Doppler sonography of the deep veins of the left lower extremity was performed from the inguinal crease to the calf. Compression and augmentation were utilized. FINDINGS: There is no sonographic evidence of deep venous thrombosis identified in the left lower extremity. The common femoral, superficial femoral, and popliteal veins are patent and normally compressible. The greater saphenous vein and the profunda femoris vein at the junction with the common femoral vein are clear. The visualized calf veins are patent. There is a simple appearing fluid collection the left groin measuring 6.9 x 3.0 x 4.0 cm. No internal flow seen on color imaging. IMPRESSION: 1. There is no sonographic evidence of deep venous thrombosis identified in the left lower extremity. 2. There is a simple-appearing and nonvascular fluid collection identified in the left groin. This could present a seroma or possibly a liquefied hematoma. Clinical correlation will be required. Electronically signed by: Tomy Thompson M.D. 07/15/2016 9:44 PM Dictated Date/Time: 07/15/2016 9:42 PM ULTRASOUND LEFT LOWER EXTREMITY ARTERIAL; ANKLE-BRACHIAL INDICES CLINICAL HISTORY: Left leg pain. COMPARISON STUDY: CT angiogram of the left lower extremity dated 03/01/2016. TECHNIQUE: Real-time, grayscale, and color Doppler sonography of the arteries of the left lower extremity is performed from the middle crease to the foot. Ankle-brachial indices are calculated. FINDINGS: Ankle-brachial indices: Brachial pressure measures 118. Pressures in the right posterior tibial artery measure 112, for an SANTHOSH of 0.95, and pressures in the left dorsalis pedis measures 76, for an SANTHOSH of 0.64. Pressures in the left posterior tibial artery measure 56, for an SANTHOSH of 0.47, and pressures in the left dorsalis pedis artery measure 57, for an SANTHOSH of 0.48. Left lower extremity: There is advanced atherosclerotic plaque and irregularity seen throughout the arteries of the left lower extremity. There are monophasic arterial waveforms seen throughout the left lower extremity. The common femoral artery is patent with velocities measuring up to 85 cm/s. The left profunda femoris artery is patent with velocities measuring up to 53 cm/s. There are monophasic waveforms seen throughout the superficial femoral artery with velocities measuring up to 128 cm/s. Monophasic arterial waveforms are present within the popliteal artery. There are focally elevated velocities in the left popliteal artery, measuring up to 210 cm/s. There is three-vessel runoff to the foot. Monophasic waveforms are seen below the knee with delayed arterial upstroke. Velocities in the left posterior tibial artery measure up to 73 cm/s, within the peroneal artery measure up to 42 cm/s, and within the anterior tibial artery measure up to 69 cm/s. Velocities in the dorsalis pedis artery measure up to 27 cm/s. Subcutaneous soft tissue edema is present within the left leg. IMPRESSION: 1. Advanced atherosclerotic plaque with monophasic arterial waveforms as above. There is blunted upstroke seen below the knee. 2. Focally elevated velocities within the popliteal artery suggest high-grade stenosis. 3. No focal vessel occlusion is identified. 4. Ankle-brachial indices as above. Dictated: 07/15/2016 9:44 PM Transcribed: 07/15/2016 9:56 PM [email or web address] Laboratory Results 07/15/16 20:11 Red Blood Count 3.47, Mean Corpuscular Volume 86.7, Mean Corpuscular Hemoglobin 28.5, Mean Corpuscular Hemoglobin Concent 32.9, Mean Platelet Volume 9.2, Neutrophils (%) (Auto) 70.0, Lymphocytes (%) (Auto) 10.6, Monocytes (%) (Auto) 16.1, Eosinophils (%) (Auto) 2.9, Basophils (%) (Auto) 0.2, Neutrophils # (Auto ) 3.35, Lymphocytes # (Auto) 0.51, Monocytes # (Auto) 0.77, Eosinophils # (Auto ) 0.14, Basophils # (Auto) 0.01 07/15/16 20:11 Test 07/15/16 20:11 White Blood Count 4.79 K/uL (4.8-10.8) Red Blood Count 3.47 M/uL (4.7-6.1) Hemoglobin 9.9 g/dL (14.0-18.0) Hematocrit 30.1 % (42-52) Mean Corpuscular Volume 86.7 fL (80-100) Mean Corpuscular Hemoglobin 28.5 pg (25-34) Mean Corpuscular Hemoglobin Concent 32.9 g/dl (32-36) Platelet Count 229 K/uL (130-400) Mean Platelet Volume 9.2 fL (7.4-10.4) Neutrophils (%) (Auto) 70.0 % Lymphocytes (%) (Auto) 10.6 % Monocytes (%) (Auto) 16.1 % Eosinophils (%) (Auto) 2.9 % Basophils (%) (Auto) 0.2 % Neutrophils # (Auto) 3.35 K/uL (1.4-6.5) Lymphocytes # (Auto) 0.51 K/uL (1.2-3.4) Monocytes # (Auto) 0.77 K/uL (0.11-0.59) Eosinophils # (Auto) 0.14 K/uL (0-0.5) Basophils # (Auto) 0.01 K/uL (0-0.2) RDW Standard Deviation 51.9 fL (36.4-46.3) RDW Coefficient of Variation 16.1 % (11.5-14.5) Immature Granulocyte % (Auto) 0.2 % Immature Granulocyte # (Auto) 0.01 K/uL (0.00-0.02) Prothrombin Time 11.9 SECONDS (9.0-12.0) Prothromb Time International Ratio 1.1 (0.9-1.1) Activated Partial Thromboplast Time 30.5 SECONDS (21.0-31.0) Partial Thromboplastin Ratio 1.2 Anion Gap 9.0 mmol/L (3-11) Estimated GFR () 113.9 Estimated GFR (Non- 98.3 BUN/Creatinine Ratio 17.6 (10-20) Calcium Level 9.2 mg/dl (8.5-10.1) Total Bilirubin 0.2 mg/dl (0.2-1) Direct Bilirubin < 0.1 mg/dl (0-0.2) Aspartate Amino Transf (AST/SGOT) 12 U/L (15-37) Alanine Aminotransferase (ALT/SGPT) 14 U/L (12-78) Alkaline Phosphatase 73 U/L (45-117) Total Protein 7.6 gm/dl (6.4-8.2) Albumin 3.0 gm/dl (3.4-5.0) Valproic Acid (Depakene) Level 81 mcg/ml (50-100) Labs reviewed by ED physician. Medications Administered Medications (Trade) Dose Ordered Sig/Rinku Route Start Time Stop Time Status Last Admin Dose Admin Sodium Chloride (Nss 500ml) 500 ml @ 999 mls/hr Q31M STAT IV 07/15/16 19:23 07/15/16 19:53 DC 07/15/16 20:12 999 MLS/HR Hydromorphone HCl (Dilaudid Inj) 0.5 mg NOW STAT IV 07/15/16 19:23 07/15/16 19:27 DC 07/15/16 20:11 0.5 MG Ceftriaxone Sodium (Rocephin Inj) 1 gm NOW STAT IV 07/15/16 20:31 07/15/16 20:33 DC 07/15/16 21:35 1 GM Trimethoprim/ Sulfamethoxazole (Septra Ds 800/ 160MG Tab) 1 tab NOW STAT PO 07/15/16 20:31 07/15/16 20:33 DC 07/15/16 21:35 1 TAB Albuterol/ Ipratropium (Duoneb) 3 ml NOW STAT INH 07/15/16 20:34 07/15/16 20:35 DC 07/15/16 21:35 3 ML ED Course 1912: Past medical records reviewed. The patient was evaluated in room C12. A complete history and physical examination was performed. 1922: Ordered Dilaudid Inj 0.5 mg IV, NSS 500 ml @ 999 mls/hr IV. 2129: I reassessed the patient and updated him on results so far. Ordered Trimethoprim/Sulfamethoxazole 1 tab PO, Rocephin Inj 1 gm IV, DuoNeb 3 ml INH. 2217: Upon reexamination the patient is resting comfortably. I discussed results and treatment plan with the patient. He verbalizes agreement and understanding. The patient is ready for discharge. Medical Decision Differential diagnosis: Etiologies such as cellulitis, abscess, MRSA infection, DVT, necrotizing fasciitis, dermatitis, drug eruption, as well as others were entertained. This is a 62-year-old male who presents emergency department complaining of left leg pain. The patient reports he had a recent graft performed on the left femoral artery. An IV was established, patient given normal saline bolus, Rocephin and Bactrim. The patient has a dopplerable pulse in the left posterior tibial area. Leg itself appears to be inflamed up to midway up the calf. For this reason the patient started on Rocephin and Bactrim. Ultrasounds do not show any evidence of a DVT or arterial compromise. I believe that the patient as well as to be discharged home. He does have a follow-up with wound care clinic tomorrow. Patient and family were in agreement with the treatment plan. Impression Primary Impression: Cellulitis of left lower leg Scribe Attestation The scribe's documentation has been prepared under my direction and personally reviewed by me in its entirety. I confirm that the note above accurately reflects all work, treatment, procedures, and medical decision making performed by me. Departure Information Dispostion Home / Self-Care Prescriptions Sulfa/Trimethoprim (Bactrim Ds 800MG/160MG) Tab 1 TAB PO BID for 10 Days, #20 TAB Prov: Marlon Aguilar MD 07/15/16 Cephalexin Monohydrate (KEFLEX) 500 Mg Cap 500 MG PO QID for 10 Days, #40 CAP Prov: Marlon Aguilar MD 07/15/16 Referrals Benja López M.D. (PCP) Patient Instructions Cellulitis - [facility], My [facility] [address] Additional Instructions Need follow up with wound care and Dr Kolton Pierre You received narcotic or benzodiazepene medication while in the emergency room today. Do not drive, operate heavy machinery, or drink alcohol under the influence of this medication. Take 600 mg Ibuprofen every 6 hours Take Percocet for breakthrough pain Radiographs and CTs will be reread by a radiologist in the morning. Culture results are usually available in approx 48 hours You have been examined and treated today on an emergency basis only. This is not a substitute for, or an effort to provide, complete comprehensive medical care. It is impossible to recognize and treat all injuries or illnesses in a single emergency department visit. It is therefore important that you follow up closely with Dr Kolton Pierre. Call as soon as possible for an appointment. Thank you for your time and consideration. I look forward to speaking with you again soon. Please don't hesitate to call us if you have any questions.
[2016-07-15] MEDS ORDERED: CGN1 PO (19:39)
[2016-07-15] MEDS ORDERED: ACET-1222 PO (19:39)
[2016-07-15] MEDS ORDERED: DOCU100C PO (19:39)
[2016-07-15] MEDS ORDERED: ASPI81TA28 PO (19:39)
[2016-07-15 20:19] LABS: BASO % 0.2 %; BASO ABS # 0.01 K/uL (0-0.2); COMPLETE YES; EOS % 2.9 %; HEMATOCRIT 30.1 % (42-52); IG% 0.2 %; LYMPH % 10.6 %; LYMPH ABS # 0.51 K/uL (1.2-3.4); MEAN CELL VOLUME 86.7 fL (80-100); MEAN CORPUSCULAR HEMOGLOBIN 28.5 pg (25-34); MEAN CORPUSCULAR HGB CONC 32.9 g/dl (32-36); MEAN PLATELET VOLUME 9.2 fL (7.4-10.4); MONO % 16.1 %; PLATELET COUNT 229 K/uL (130-400); RED BLOOD COUNT 3.47 M/uL (4.7-6.1); WHITE BLOOD COUNT 4.79 K/uL (4.8-10.8)
--- NOTE | 2016-07-15 20:26 | DIAGNOSTIC IMAGING REPORT ---
LEFT FOOT 3 VIEWS CLINICAL HISTORY: Left foot pain. FINDINGS: 3 views of the left foot are obtained. No prior studies are available for comparison at the time of dictation. The skeletal structures are osteopenic. No fracture is seen. Mild arthritic change is present at the first metatarsophalangeal joint. The joint spaces of the foot are otherwise well-maintained. Mild degenerative spurring is seen along the dorsal aspect of the tarsal bones. There are dorsal and plantar calcaneal enthesophytes. Soft tissue edema is present throughout the foot. Foci of subcutaneous gas are questioned in the heel. No radiodense foreign body is identified. IMPRESSION: 1. Osteopenia, mild arthritic change, and heel spurs as above. No acute bony abnormality is identified. 2. Diffuse soft tissue edema is present throughout the foot. Correlate clinically for evidence of cellulitis. See above. Electronically signed by: Tomy Thompson M.D. 07/15/2016 8:25 PM Dictated Date/Time: 07/15/2016 8:22 PM
--- NOTE | 2016-07-15 20:28 | DIAGNOSTIC IMAGING REPORT ---
SINGLE VIEW CHEST CLINICAL HISTORY: Dyspnea. History of lung cancer. FINDINGS: An AP, portable, upright chest radiograph is compared to study dated 06/01/2016 and correlated with chest CT dated 02/05/2016. The examination is degraded by portable technique and apical lordotic positioning. The heart is top normal in size. There is atherosclerotic calcification of the thoracic aorta. The pulmonary vasculature is noncongested. Emphysema and chronic interstitial thickening is unchanged. A left suprahilar nodular density is again noted and was better characterized on prior chest CT scans. Bibasilar atelectasis is noted. There is no airspace consolidation typical for pneumonia or large pleural effusion. No pneumothorax is seen. The bony thorax is grossly intact. Degenerative change is noted in the thoracic spine. IMPRESSION: 1. There is no acute cardiopulmonary abnormality. 2. Emphysema and a left suprahilar pulmonary lesion are again noted. These findings were better characterized on prior chest CT scans. Electronically signed by: Tomy Thompson M.D. 07/15/2016 8:27 PM Dictated Date/Time: 07/15/2016 8:25 PM
[2016-07-15] MEDS ORDERED: SULFAMETHOXAZOLE/TRIMETHOPRIM DS 800/160MG TAB PO STA (20:31)
[2016-07-15] MEDS ORDERED: CEFTRIAXONE SOD INJ 1 GM ADDVIAL IV STA (20:31)
[2016-07-15 20:32] LABS: INR 1.1 (0.9-1.1); PARTIAL THROMBOPLASTIN RATIO 1.2; PROTHROMBIN TIME (PATIENT) 11.9 SECONDS (9.0-12.0)
[2016-07-15] MEDS ORDERED: ALBUT/IPRATROP 3MG/0.5MG NEB 3 ML VIAL INH STA (20:34)
[2016-07-15 20:40] LABS: ALT/SGPT 14 U/L (12-78); AST/SGOT 12 U/L (15-37); BLOOD UREA NITROGEN 13 mg/dl (7-18); BUN/CREATININE RATIO 17.6 (10-20); CALCIUM 9.2 mg/dl (8.5-10.1); CARBON DIOXIDE 29 mmol/L (21-32); CHLORIDE 95 mmol/L (98-107); CREATININE 0.75 mg/dl (0.60-1.40); GLUCOSE 75 mg/dl (70-99); SODIUM 133 mmol/L (136-145)
[2016-07-15 20:43] LABS: ALKALINE PHOSPHATASE 73 U/L (45-117)
--- NOTE | 2016-07-15 21:45 | DIAGNOSTIC IMAGING REPORT ---
ULTRASOUND LEFT LOWER EXTREMITY VENOUS CLINICAL HISTORY: Left leg swelling. COMPARISON STUDY: No priors. TECHNIQUE: Real-time, grayscale, and color Doppler sonography of the deep veins of the left lower extremity was performed from the inguinal crease to the calf. Compression and augmentation were utilized. FINDINGS: There is no sonographic evidence of deep venous thrombosis identified in the left lower extremity. The common femoral, superficial femoral, and popliteal veins are patent and normally compressible. The greater saphenous vein and the profunda femoris vein at the junction with the common femoral vein are clear. The visualized calf veins are patent. There is a simple appearing fluid collection the left groin measuring 6.9 x 3.0 x 4.0 cm. No internal flow seen on color imaging. IMPRESSION: 1. There is no sonographic evidence of deep venous thrombosis identified in the left lower extremity. 2. There is a simple-appearing and nonvascular fluid collection identified in the left groin. This could present a seroma or possibly a liquefied hematoma. Clinical correlation will be required. Electronically signed by: Tomy Thompson M.D. 07/15/2016 9:44 PM Dictated Date/Time: 07/15/2016 9:42 PM
--- NOTE | 2016-07-15 21:57 | DIAGNOSTIC IMAGING REPORT ---
ULTRASOUND LEFT LOWER EXTREMITY ARTERIAL; ANKLE-BRACHIAL INDICES CLINICAL HISTORY: Left leg pain. COMPARISON STUDY: CT angiogram of the left lower extremity dated 03/01/2016. TECHNIQUE: Real-time, grayscale, and color Doppler sonography of the arteries of the left lower extremity is performed from the middle crease to the foot. Ankle-brachial indices are calculated. FINDINGS: Ankle-brachial indices: Brachial pressure measures 118. Pressures in the right posterior tibial artery measure 112, for an SANTHOSH of 0.95, and pressures in the left dorsalis pedis measures 76, for an SANTHOSH of 0.64. Pressures in the left posterior tibial artery measure 56, for an SANTHOSH of 0.47, and pressures in the left dorsalis pedis artery measure 57, for an SANTHOSH of 0.48. Left lower extremity: There is advanced atherosclerotic plaque and irregularity seen throughout the arteries of the left lower extremity. There are monophasic arterial waveforms seen throughout the left lower extremity. The common femoral artery is patent with velocities measuring up to 85 cm/s. The left profunda femoris artery is patent with velocities measuring up to 53 cm/s. There are monophasic waveforms seen throughout the superficial femoral artery with velocities measuring up to 128 cm/s. Monophasic arterial waveforms are present within the popliteal artery. There are focally elevated velocities in the left popliteal artery, measuring up to 210 cm/s. There is three-vessel runoff to the foot. Monophasic waveforms are seen below the knee with delayed arterial upstroke. Velocities in the left posterior tibial artery measure up to 73 cm/s, within the peroneal artery measure up to 42 cm/s, and within the anterior tibial artery measure up to 69 cm/s. Velocities in the dorsalis pedis artery measure up to 27 cm/s. Subcutaneous soft tissue edema is present within the left leg. IMPRESSION: 1. Advanced atherosclerotic disease with monophasic arterial waveforms throughout the left lower extremity as above as above. There is blunted arterial upstroke seen below the knee. 2. Focally elevated velocities within the popliteal artery suggest high-grade stenosis. 3. No focal vessel occlusion is identified. 4. Ankle-brachial indices as above. Dictated: 07/15/2016 9:44 PM Transcribed: 07/15/2016 9:56 PM [email or web address] Electronically signed by: Tomy Thompson M.D. 07/15/2016 10:21 PM Dictated Date/Time: 07/15/2016 9:44 PM
[2016-07-15 22:01] VITALS: O2SAT 97
[2016-07-15] MEDS ORDERED: SULF800T23 PO (22:09)
[2016-07-15] MEDS ORDERED: CEPH500C2 PO (22:09)
[2016-07-15 22:35] VITALS: BP 111/59; PULSE 78; O2SAT 97
[2016-07-16] MEDS ORDERED: AMOX500C3 PO (15:29)
[2016-08-03] MEDS ORDERED: CGN1 PO (07:38)
[2016-08-03] MEDS ORDERED: TAMS0.4C38 PO (07:38)
[2016-08-03] MEDS ORDERED: SNTO30 EXT (07:38)
[2016-08-03] MEDS ORDERED: ASPI81TA28 PO (07:38)
[2016-08-03] MEDS ORDERED: BUPR100T8 PO (07:38)
[2016-08-03] MEDS ORDERED: FOLI1TAB7 PO (07:38)
[2016-08-03] MEDS ORDERED: DIVA500T59 PO (07:38)
[2016-08-03] MEDS ORDERED: DUTA0.5C PO (07:38)
[2016-08-03] MEDS ORDERED: DOCU100C PO (07:38)
[2016-08-03] MEDS ORDERED: HALO5TAB PO (07:38)
[2016-08-03] MEDS ORDERED: ACET-1222 PO (07:38)
[2016-08-03] MEDS ORDERED: METO25TA3 PO (07:38)
[2016-08-03] MEDS ORDERED: NMN5 PO (07:38)
[2016-08-11] MEDS ORDERED: NICO1DIS9 TOP (10:40)
[2016-08-11] MEDS ORDERED: MULT-506 PO (10:40)
[2016-08-11] MEDS ORDERED: ASCO500C43 PO (10:40)
[2016-08-11] MEDS ORDERED: PROT1POW (10:40)
[2016-08-11] MEDS ORDERED: ZINC1CAP PO (10:40)
[2016-08-25] MEDS ORDERED: VANC1INJ71 IV (11:41)
[2016-08-25] MEDS ORDERED: CPRS5005 PO (11:41)
[2016-09-23] MEDS ORDERED: SULF800T23 PO (14:04)
[2016-10-06] MEDS ORDERED: ZSYI45 IV (08:45)
[2016-10-20] MEDS ORDERED: CLOTCRE33 TOP (10:19)
[2016-10-20] MEDS ORDERED: LINE1TAB2 PO (10:19)
[2016-11-03] MEDS ORDERED: CLOTCRE33 TOP (09:38)
[2016-11-12] MEDS ORDERED: NMN5 PO (10:07)
[2016-11-12] MEDS ORDERED: HYDR-3126 PO (10:07)
[2016-11-12] MEDS ORDERED: ARTIOIN OP (10:07)
[2016-11-12] MEDS ORDERED: MULTTAB63 PO (10:07)
[2016-11-12] MEDS ORDERED: PRLSR20 PO (10:07)
[2016-11-12] MEDS ORDERED: MELA1TAB54 PO (10:07)
[2016-11-12] MEDS ORDERED: LINE1TAB6 PO (10:07)
[2016-11-12] MEDS ORDERED: TEMA15CA4 PO (10:08)
[2016-11-17] MEDS ORDERED: LINE1TAB6 PO (09:49)
[2016-12-15] MEDS ORDERED: LORA-741 PO (09:27)
[2016-12-29] MEDS ORDERED: LINE1TAB6 PO ×2 (09:43→09:44)
[2017-02-23] MEDS ORDERED: QUET1TAB30 PO (08:26)
[2017-02-23] MEDS ORDERED: DIVA500T59 PO (08:26)
[2017-02-23] MEDS ORDERED: BUPR-83 PO (08:26)
[2017-02-23] MEDS ORDERED: CYAN10005 PO (08:27)
== END 2016-07-15 22:35 | disposition home or self-care (01) ==
LOC: C.EDB 18:41 → C.EDC 22:35
DX: L03.116 Cellulitis of left lower limb (principal); F31.9 Bipolar disorder, unspecified; Z85.118 Personal history of other malignant neoplasm of bronchus and lung; I99.8 Other disorder of circulatory system; F17.210 Nicotine dependence, cigarettes, uncomplicated; Z79.82 Long term (current) use of aspirin; Z79.899 Other long term (current) drug therapy

== ENCOUNTER → 2016-07-16 | Outpatient (CLI) | payer OTHER ==
[~2016-07-16] MED LIST changes: +ACET-1222 PO; +ACET-1256 PO; -ACET-1311 PO; +AMOX500C3 PO; +ARTIOIN OP; +ASCA500 PO; +ASCO500C43 PO; -ASPCH81X PO; +ASPI81TA28 PO; -AUGMENTIN PO; -BENZ2TAB6 PO; +BUPR-83 PO; +CEPH500C2 PO; +CGN1 PO; +CIPR-255 PO; +CLOTCRE33 TOP; +CPRS5005 PO; +CYAN10005 PO; +DIVA500T5 PO; +DOCU100C PO; +DOCU100C31 PO; +FOLI1TAB7 PO; +HYDR-3126 PO; +LINE1TAB2 PO; +LINE1TAB6 PO; +LORA-741 PO; +MELA1TAB54 PO; -MOML PO; +MOMLX PO; +MULT-506 PO; +MULTTAB63 PO; -NICO14DI5 TD; +NICO1DIS9 TOP; +OPTIRAY 320 IV PRN; -OXYC-57 PO; +PRED10TA PO; +PRLSR20 PO; +PROT1POW; +QUET1TAB30 PO; -SENN8.6C PO; +SNTO30 EXT; -SNTONWC EX; -SODIENE PR; +SULF800T23 PO; +TEMA15CA4 PO; +TRAM-10 PO; +VANC1INJ71 IV; +WLLSR100 PO; +ZINC1CAP PO; +ZSYI45 IV; +[UNRECOGNIZED DRUG - CODE] IV; -[UNRECOGNIZED DRUG - OTHER] SQ
--- NOTE | 2016-07-16 12:41 | DIAGNOSTIC IMAGING REPORT ---
CT OF THE CHEST WITH IV CONTRAST CLINICAL HISTORY: LUNG CA COMPARISON STUDY: 02/05/2016, chest x-ray dated to 917 TECHNIQUE: Following the IV administration of 119 mL of Optiray-320, CT of the thorax was performed from the thoracic inlet to the lung bases. Images are reviewed in the axial, sagittal, and coronal planes. IV contrast was administered without complication. CT DOSE: 628.82 mGycm FINDINGS: Thyroid: Imaged portions of the thyroid gland are normal in appearance. Thoracic aorta: The thoracic aorta is normal in course and caliber, noting standard 3-vessel arch anatomy. No aneurysm or dissection is seen. Pulmonary vasculature: The pulmonary trunk is normal in caliber. There are no central filling defects identified to suggest pulmonary embolus. Note that this examination was not protocoled for the evaluation of pulmonary emboli. HEART: There is a small pericardial effusion. Lungs and pleural spaces: Since the prior study, the patient has developed small bilateral pleural effusions left greater than right. There is a 2 cm irregularly marginated left upper lobe pulmonary nodule. Since the prior study, the patient has developed groundglass left upper lobe and perihilar airspace opacities. The findings are likely either infectious or secondary to postradiation pneumonitis. Mediastinum: There is no mediastinal lymphadenopathy. Yaa: Clear. Axilla: Clear. Upper abdomen: Partially visualized upper abdominal viscera is within normal limits. Skeletal structures: There are no lytic or blastic osseous lesions. IMPRESSION: 1. Minimal interval decrease in the size of the 2 cm spiculated left upper lobe pulmonary mass 2. Interval development of bilateral pleural effusions left greater than right 3. Interval development of groundglass airspace opacities within the left hilar and left upper lobe, likely infectious or secondary to radiation pneumonitis 4. Small pericardial effusion Electronically signed by: Rhys Dove M.D. 07/16/2016 12:40 PM Dictated Date/Time: 07/16/2016 12:32 PM
== END | disposition home or self-care (01) ==
LOC: C.CTS 12:03
PROVIDERS: ATTEND Nurse Practitioner Family
DX: C34.11 Malignant neoplasm of upper lobe, right bronchus or lung (principal); I31.3 Pericardial effusion (noninflammatory)

== ENCOUNTER 2016-07-22 13:36 | Inpatient (IN) | payer OTHER ==
[~2016-07-22] VITALS: Ht 172.7 cm; Wt 84.0 kg
[~2016-07-22 13:36] MED LIST changes: -ACET-1256 PO; -ARTIOIN OP; -ASCA500 PO; -ASCO500C43 PO; -BISA10SU38 PR; -BUPR-83 PO; -CEPH500C2 PO; -CIPR-255 PO; -CLOTCRE33 TOP; -CPRS5005 PO; -CYAN10005 PO; -DIVA500T5 PO; -DOCU100C31 PO; -FOLI1TAB7 PO; -HYDR-3126 PO; -LINE1TAB2 PO; -LINE1TAB6 PO; -LORA-741 PO; -MELA1TAB54 PO; -MOMLX PO; -MULT-506 PO; -MULTTAB63 PO; -NICO1DIS9 TOP; -OPTIRAY 320 IV PRN; -PRED10TA PO; -PRLSR20 PO; -PROT1POW; -QUET1TAB30 PO; -SNTO30 EXT; -TEMA15CA4 PO; -TRAM-10 PO; -VANC1INJ71 IV; -WLLSR100 PO; -ZINC1CAP PO; -ZSYI45 IV; -[UNRECOGNIZED DRUG - CODE] IV
[2016-07-22] MEDS ORDERED: SODIUM CHLORIDE 0.9% 1000ML 1,000 ML IV STA (14:08)
--- NOTE | 2016-07-22 14:10 | EMERGENCY ROOM VISIT NOTE ---
History Report prepared by Lauren: Ana Maria Craft Under the Supervision of: Dr. Modesto Bailey M.D. First contact with patient: 13:58 Chief Complaint: ABNORMAL DIAGNOSTIC TESTING Stated Complaint: FLUID IN LUNGS, ABNORMAL CT History of Present Illness The patient is a 61 year old male who presents to the Emergency Room with complaints of a worsening left leg cellulitis that began several weeks ago. The patient is currently on antibiotics for the cellulitis and states that his last evaluation in the hospital was 2-3 weeks ago. He notes sharp pains to the area and increased pain. The patient states that he is currently being treated for lung cancer and has noticed a productive cough. He notes that he had an abnormal CT scan prior to arrival today so he was referred here by his oncologist. Source of History: patient Onset: several weeks ago Position: leg (left) Quality: other (cellulitis) Timing: worsening Associated Symptoms: + cough Note: Associated symptoms: worsening pain, sharp pain to left leg. Review of Systems See HPI for pertinent positives & negatives. A total of 10 systems reviewed and were otherwise negative. Past Medical & Surgical Medical Problems: (1) Bipolar disorder (2) ISCHEMIA L FOOT,PAD,LUNG CA (3) Ischemic rest pain of lower extremity (4) Lung mass Family History No pertinent family history Social History Smoking Status: Former Smoker Alcohol Use: none Drug Use: none Marital Status: Housing Status: lives alone Occupation Status: retired Current/Historical Medications Scheduled Amoxicillin (Amoxil), 1 CAP PO TID Aspirin (Aspirin Ec), 81 MG PO DAILY Benztropine Mesylate (Cogentin), 1 MG PO BID Bupropion (Wellbutrin Sr), 100 MG PO QAM Bupropion (Wellbutrin), 150 MG PO QAM Divalproex Sodium (Depakote), 500 MG PO BID Docusate Sodium (Stool Softener), 100 MG PO QAM Dutasteride (Avodart), 0.5 MG PO QAM Dutasteride (Avodart), 1 CAP PO DAILY Folic Acid (Folvite), 1 TAB PO DAILY Haloperidol (Haldol), 5 MG PO BID Memantine (Namenda), 5 MG PO QAM Metoprolol Succinate (Toprol Xl), 25 MG PO QAM Sulfa/Trimethoprim (Bactrim Ds 800MG/160MG), 1 TAB PO BID Tamsulosin Hcl (Flomax), 0.4 MG PO QPM Tamsulosin Hcl (Flomax), 1 CAP PO DAILY Scheduled PRN Acetaminophen (Acetaminophen Extra Stren), 500 MG PO UD PRN for Pain or Fever Dextromethorphan-Guaifenesin (Mucinex Dm), 1 TAB PO Q12 PRN for Congestion Allergies Coded Allergies: No Known Allergies (Unverified , 07/22/16) Physical Exam Vital Signs Date Time Temp Pulse Resp B/P Pulse Ox O2 Delivery O2 Flow Rate FiO2 07/22/16 15:30 80 17 109/67 100 Room Air 07/22/16 14:19 86 22 104/62 96 Room Air 07/22/16 13:54 36.8 90 18 83/59 94 Room Air Physical Exam GENERAL: Patient is chronically unwell appearing, no distress. HEENT: No acute trauma, normocephalic atraumatic, mucous membranes moist, no nasal congestion, no scleral icterus. NECK: No stridor, no adenopathy, no meningismus, trachea is midline. LUNGS: Crackles in the bilateral lower lobes. No dyspnea. No wheeze, no rhonchi. HEART: Regular rate and rhythm. No murmurs, rubs, gallops appreciated. ABDOMEN: Soft, nontender, bowel sounds positive, no masses appreciated, no peritonitis. BACK: No midline tenderness, no CVA tenderness EXTREMITIES: Large wound of the left heal with mild exudate. Cellulitis extending up to the left knee. Mild edema of left lower leg. Good pulses of the bilateral feet. NEUROLOGIC: Alert and oriented, no acute motor or sensory deficits, no focal weakness, cranial nerves grossly intact. SKIN: No rash, no jaundice, no diaphoresis. Medical Decision & Procedures ER Provider Diagnostic Interpretation: X ray results are stated below per my interpretation and the radiologist's interpretation. SINGLE VIEW CHEST CLINICAL HISTORY: Pleural effusions. History of lung cancer. FINDINGS: An AP, portable, upright chest radiograph is compared to study dated 07/16/[address] dated 07/15/16. The examination is degraded by portable technique and apical lordotic positioning. The heart is top normal in size. There is atherosclerotic calcification of the thoracic aorta. The pulmonary vasculature is noncongested. Emphysema and chronic interstitial thickening is unchanged. A left suprahilar nodular density is again noted and was better characterized on prior chest CT scans. Bibasilar atelectasis is noted. Small pleural effusions are identified. No airspace consolidation is seen typical for pneumonia. No pneumothorax is seen. The bony thorax is grossly intact. Degenerative change is noted in the thoracic spine. IMPRESSION: 1. Small pleural effusions are again identified. These were better characterized on the 07/16/[address] For future assessment of pleural effusions a lateral view would be helpful. 2. Emphysema and a left suprahilar pulmonary lesion are again noted. These findings were also better characterized recent chest CT scans. Electronically signed by: Tomy Thompson M.D. 07/22/2016 2:40 PM Dictated Date/Time: 07/22/2016 2:37 PM Laboratory Results 07/22/16 14:46 Red Blood Count 3.25, Mean Corpuscular Volume 86.2, Mean Corpuscular Hemoglobin 28.6, Mean Corpuscular Hemoglobin Concent 33.2, Mean Platelet Volume 8.8, Neutrophils (%) (Auto) 75.2, Lymphocytes (%) (Auto) 8.6, Monocytes (%) (Auto) 13.6, Eosinophils (%) (Auto) 2.1, Basophils (%) (Auto) 0.2, Neutrophils # (Auto ) 4.63, Lymphocytes # (Auto) 0.53, Monocytes # (Auto) 0.84, Eosinophils # (Auto ) 0.13, Basophils # (Auto) 0.01 07/22/16 14:46 Test 07/22/16 14:46 07/22/16 14:50 White Blood Count 6.16 K/uL (4.8-10.8) Red Blood Count 3.25 M/uL (4.7-6.1) Hemoglobin 9.3 g/dL (14.0-18.0) Hematocrit 28.0 % (42-52) Mean Corpuscular Volume 86.2 fL (80-100) Mean Corpuscular Hemoglobin 28.6 pg (25-34) Mean Corpuscular Hemoglobin Concent 33.2 g/dl (32-36) Platelet Count 255 K/uL (130-400) Mean Platelet Volume 8.8 fL (7.4-10.4) Neutrophils (%) (Auto) 75.2 % Lymphocytes (%) (Auto) 8.6 % Monocytes (%) (Auto) 13.6 % Eosinophils (%) (Auto) 2.1 % Basophils (%) (Auto) 0.2 % Neutrophils # (Auto) 4.63 K/uL (1.4-6.5) Lymphocytes # (Auto) 0.53 K/uL (1.2-3.4) Monocytes # (Auto) 0.84 K/uL (0.11-0.59) Eosinophils # (Auto) 0.13 K/uL (0-0.5) Basophils # (Auto) 0.01 K/uL (0-0.2) RDW Standard Deviation 53.0 fL (36.4-46.3) RDW Coefficient of Variation 16.5 % (11.5-14.5) Immature Granulocyte % (Auto) 0.3 % Immature Granulocyte # (Auto) 0.02 K/uL (0.00-0.02) Anion Gap 11.0 mmol/L (3-11) Est Creatinine Clear Calc Drug Dose 89.8 ml/min Estimated GFR () 105.7 Estimated GFR (Non- 91.2 BUN/Creatinine Ratio 13.7 (10-20) Calcium Level 8.8 mg/dl (8.5-10.1) Total Creatine Kinase 71 U/L (39-308) Creatine Kinase MB 1.9 ng/ml (0.5-3.6) Creatine Kinase MB Ratio 2.7 (0-3.0) Troponin I < 0.015 ng/ml (0-0.045) C-Reactive Protein 6.13 mg/dl (0-0.29) Valproic Acid (Depakene) Level 70 mcg/ml (50-100) Bedside Lactic Acid Venous 1.38 mmol/L (0.90-1.70) Laboratory results as reviewed by me. Medications Administered Medications (Trade) Dose Ordered Sig/Irnku Route Start Time Stop Time Status Last Admin Dose Admin Sodium Chloride 1,000 ml @ 999 mls/hr Q1H1M STAT IV 07/22/16 14:08 07/22/16 15:08 DC 07/22/16 15:13 999 MLS/HR Vancomycin HCl/ Sodium Chloride (Vancomycin Inj/ Nss 500ml) 525.2 ml @ 200 mls/hr ONE STAT IV 07/22/16 14:43 07/22/16 17:20 07/22/16 15:25 200 MLS/HR ED Course 1404: The patient was evaluated in room C3. A complete history and physical exam was performed. 1408: Ordered Sodium Chloride 1000 ml @ 999 mls/hr IV. 1438: I reevaluated the patient and he is feeling better. I discussed the exam findings with him and I discussed the treatment plan. He verbalized complete understanding and agreement. He will be evaluated for further treatment. 1440: I discussed the patient's case with Dr. Kolton Pierre, Internal Medicine. He agrees with IV Vancomycin and states that he will evaluate the patient for further treatment. 1443: Ordered Vancomycin HCl 1260 mg/Sodium Chloride 525.2 ml @ 200 mls/hr IV. Medical Decision Differential: Sepsis, Infectious (UTI/Pneumonia/Meningitis/etc), Metabolic/ Electrolyte Abnormality, Cardiac, Hepatic, Endocrine, Toxicologic, Neurologic, amongst other pathologies entertained. 61 yr old male arrives hypotensive with extensive cellulitis left lower extremity which he has been on Bactrim for without improvement. Mild effusions noted on previous CT and no clear evidence that they need intervention nor that they are cause of hypotension. Fluids and much improved BP and patient feeling well. Given history will hold off on over fluid resus as no clear evidence of overt sepsis at this time. Otherwise work-up benign and patient feeling well. CRP elevated consistent with infection though WBC wnl. Chronic anemia. BMP unremarkable as well. Blood cultures were sent. Lactic acid normal. Consults Time Called: 1433 Consulting Physician: Dr. Kolton Pierre, Internal Medicine Returned Call: 1440 I discussed the patient's case with Dr. Kolton Pierre, Internal Medicine. He agrees with IV Vancomycin and states that he will evaluate the patient for further treatment. Impression Primary Impression: Left leg cellulitis Additional Impressions: Wound infection Failure of outpatient treatment Hypotension Scribe Attestation The scribe's documentation has been prepared under my direction and personally reviewed by me in its entirety. I confirm that the note above accurately reflects all work, treatment, procedures, and medical decision making performed by me. Departure Information Dispostion Being Evaluated By Hospitalist Referrals Benja López M.D. (PCP) Problem Qualifiers Additional Impressions: Hypotension Hypotension type: unspecified hypotension type Qualified Codes: I95.9 - Hypotension, unspecified
--- NOTE | 2016-07-22 14:41 | DIAGNOSTIC IMAGING REPORT ---
SINGLE VIEW CHEST CLINICAL HISTORY: Pleural effusions. History of lung cancer. FINDINGS: An AP, portable, upright chest radiograph is compared to study dated 07/16/[address] dated 07/15/16. The examination is degraded by portable technique and apical lordotic positioning. The heart is top normal in size. There is atherosclerotic calcification of the thoracic aorta. The pulmonary vasculature is noncongested. Emphysema and chronic interstitial thickening is unchanged. A left suprahilar nodular density is again noted and was better characterized on prior chest CT scans. Bibasilar atelectasis is noted. Small pleural effusions are identified. No airspace consolidation is seen typical for pneumonia. No pneumothorax is seen. The bony thorax is grossly intact. Degenerative change is noted in the thoracic spine. IMPRESSION: 1. Small pleural effusions are again identified. These were better characterized on the 07/16/[address] For future assessment of pleural effusions a lateral view would be helpful. 2. Emphysema and a left suprahilar pulmonary lesion are again noted. These findings were also better characterized recent chest CT scans. Electronically signed by: Tomy Thompson M.D. 07/22/2016 2:40 PM Dictated Date/Time: 07/22/2016 2:37 PM
[2016-07-22] MEDS ORDERED: VANCOMYCIN IV STA (14:43)
[2016-07-22] MEDS ORDERED: SODIUM CHLORIDE 0.9% IV STA (14:43)
[2016-07-22] MEDS ORDERED: BUPR-83 PO (14:45)
[2016-07-22] MEDS ORDERED: TAMS0.4C38 PO (14:45)
[2016-07-22] MEDS ORDERED: FOLI1TAB7 PO (14:45)
[2016-07-22] MEDS ORDERED: DUTA0.5C PO (14:45)
[2016-07-22 15:09] LABS: BASO % 0.2 %; BASO ABS # 0.01 K/uL (0-0.2); COMPLETE YES; EOS % 2.1 %; IG% 0.3 %; LYMPH % 8.6 %; LYMPH ABS # 0.53 K/uL (1.2-3.4); MEAN CELL VOLUME 86.2 fL (80-100); MEAN CORPUSCULAR HEMOGLOBIN 28.6 pg (25-34); MEAN CORPUSCULAR HGB CONC 33.2 g/dl (32-36); MEAN PLATELET VOLUME 8.8 fL (7.4-10.4); MONO % 13.6 %; NEUT % 75.2 %; PLATELET COUNT 255 K/uL (130-400); RED BLOOD COUNT 3.25 M/uL (4.7-6.1); WHITE BLOOD COUNT 6.16 K/uL (4.8-10.8)
[2016-07-22 15:33] LABS: BLOOD UREA NITROGEN 12 mg/dl (7-18); BUN/CREATININE RATIO 13.7 (10-20); C-REACTIVE PROTEIN 6.13 mg/dl (0-0.29); CALCIUM 8.8 mg/dl (8.5-10.1); CARBON DIOXIDE 22 mmol/L (21-32); CHLORIDE 99 mmol/L (98-107); GLUCOSE 97 mg/dl (70-99); POTASSIUM 4.6 mmol/L (3.5-5.1); SODIUM 132 mmol/L (136-145)
[2016-07-22 15:38] LABS: CKMB/CK RATIO 2.7 (0-3.0)
[2016-07-22 17:45] VITALS: Ht 172.7 cm; Wt 84.0 kg
[2016-07-22] MEDS ORDERED: DO NOT ADMINISTER PNEUMOCOCCAL VACCINE PRN ×2 (18:00)
[2016-07-22] MEDS ORDERED: ONDANSETRON INJ 8 MG in DEXTROSE 5% 50ML 50 ML IV PRN (18:15)
[2016-07-22 18:45] VITALS: BP 133/72; PULSE 88; TEMP 36.5; O2SAT 99
[2016-07-22] MEDS: HYDROCODONE/ACETAMOPHEN 5/325MG TAB PO PRN ×2 (18:56→23:20)
[2016-07-22] MEDS: SODIUM CHLORIDE 0.9% 1000ML 1,000 ML IV SCH (20:34)
[2016-07-22] MEDS: HEPARIN SOD 5000 UNIT/0.5 ML CARP SQ SCH (20:36)
[2016-07-22] MEDS: DIVALPROEX SODIUM 500 MG DELAY RELEASE TAB PO SCH (20:43)
[2016-07-22] MEDS: HALOPERIDOL 5 MG TAB PO SCH (20:43)
[2016-07-22] MEDS: BENZTROPINE MESYLATE 1 MG TAB PO SCH (20:44)
[2016-07-22] MEDS ORDERED: CEFTRIAXONE SOD INJ 2,000 MG in DEXTROSE 5% 50ML 50 ML IV STA (22:31)
[2016-07-22 23:25] VITALS: BP 108/69; PULSE 91; TEMP 36.6; O2SAT 98
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
[2016-07-23] MEDS ORDERED: COUGH DROP (SUGAR FREE) LOZ 24 LOZ/1 BOX PO PRN (03:30)
[2016-07-23] MEDS: SODIUM CHLORIDE 0.9% 1000ML 1,000 ML IV SCH ×3 (03:42→23:40)
[2016-07-23] MEDS: HYDROCODONE/ACETAMOPHEN 5/325MG TAB PO PRN ×4 (04:35→20:09)
[2016-07-23 08:24] VITALS: BP 122/82; PULSE 90; TEMP 36.7; O2SAT 99
[2016-07-23] MEDS: MEMANTINE 5 MG TAB PO SCH (10:04)
[2016-07-23] MEDS: BENZTROPINE MESYLATE 1 MG TAB PO SCH ×2 (10:04→20:05)
[2016-07-23] MEDS: METOPROLOL SUCC 25MG EXT REL TAB PO SCH (10:04)
[2016-07-23] MEDS: DIVALPROEX SODIUM 500 MG DELAY RELEASE TAB PO SCH ×2 (10:04→20:05)
[2016-07-23] MEDS: FINASTERIDE 5 MG TAB PO SCH (10:05)
[2016-07-23] MEDS: ASPIRIN 81 MG ECTAB PO SCH (10:05)
[2016-07-23] MEDS: BuPROPion SR 100 MG TABCR PO SCH (10:05)
[2016-07-23] MEDS: DOCUSATE SODIUM 100 MG CAP PO SCH (10:05)
[2016-07-23] MEDS: HALOPERIDOL 5 MG TAB PO SCH ×2 (10:05→20:05)
[2016-07-23] MEDS: HEPARIN SOD 5000 UNIT/0.5 ML CARP SQ SCH ×2 (10:18→20:11)
--- NOTE | 2016-07-23 11:43 | Clinical Documentation Query ---
CLINICAL DOCUMENTATION QUERY Dr. FAUSTO HERNÁNDEZ, In your clinical opinion is this patient being managed for: ( ) Pressure ulcer of left heel, stage 3 (x ) Other explanation of clinical findings (Please Explain) . It was a hematoma initially. With subsequent skin disruption. It did not start as pressure ulcer. ( ) Unable to determine (Please Define. ( ) Need to Discuss ( ) Not Agree The medical record reflects the following clinical findings, treatment, and risk factors. Clinical Indicators: H/P indicates pt with a L heel ulcer. Review of wound clinic RN notes indicates that pt has a stage III pressure ulcer on L heel. Treatment: receiving outpatient home health for xeroform dressing changes qod, inpatient treatment includes IV rocephin, po bactrim and pending vascular surgery consult Risk Factors: tobacco abuse, PAD Please clarify and document your clinical opinion in the progress notes and discharge summary. Terms such as "probable", "suspected", "likely", "questionable", "possible", or "still to be ruled out" are acceptable. IF IN AGREEMENT, YOU MUST DOCUMENT ABOVE DIAGNOSTIC STATEMENT IN DAILY PROGRESS NOTES AND DISCHARGE SUMMARY. This document is not part of the patient's record. Thank You, Payton Lindo, RN [phone]
[2016-07-23] MEDS: SULFAMETHOXAZOLE/TRIMETHOPRIM DS 800/160MG TAB PO SCH ×2 (13:32→20:07)
[2016-07-23 16:00] VITALS: BP 114/73; PULSE 89; TEMP 36.8; O2SAT 94
[2016-07-23] MEDS ORDERED: NURSING VERBAL MED ORDER ONE (20:00)
[2016-07-23] MEDS ORDERED: HYDROCODONE/ACETAMOPHEN 5/325MG TAB PO ONE (20:30)
--- NOTE | 2016-07-23 20:50 | PROGRESS NOTE ---
DATE: 07/23/2016 A 61-year-old male admitted with multiple problems including cellulitis of his left foot and left lower leg, dehydration and arterial hypotension. He was also complaining of lightheadedness, especially when he stood up. He does have peripheral arterial disease. He has hyperlipidemia, bipolar disorder and he is a smoker. He has severe peripheral neuropathy. He has hyponatremia. The patient was admitted. He was started on IV fluids. Started on IV and oral antibiotics. Overall, he denied any headache or dizziness. No chest pain, no shortness of breath. No abdominal pain, no nausea, no vomiting. No problem with his bowel movement or urination. He is not having much pain in his left lower leg. He was seen by Dr. Ac today. No additional debridement of the ulcer on his left heel is needed at this point. PHYSICAL EXAMINATION: GENERAL: Well-developed, in no distress. VITAL SIGNS: Blood pressure 122/82, pulse 90, respirations 12, temperature 36.7, oxygen saturation 99% on room air. SKIN: Warm and dry. No rash. HEENT: No mucosal abnormality. NECK: No JVD, no adenopathy. HEART: Regular heart sounds. LUNGS: Clear. ABDOMEN: Soft and nontender. EXTREMITIES: Cellulitis of the left lower leg and left foot. The redness is slightly improved. Also on his left heel did not show any new problems as far as any discharge or any bleeding. ASSESSMENT: 1. Cellulitis, left lower leg and left foot. 2. Dehydration. 3. Lightheadedness. 4. Peripheral arterial disease. 5. Bipolar disorder. PLAN: 1. Continue the same antibiotics. 2. Therapies will be ordered to start ambulating him. 3. As noted, he was seen by Dr. Ac. 4. The main issue is the fact that he lives in an apartment by himself. He thinks that he can handle the situation. I am recommending that he goes back to [facility] until he is in a better condition and his heel ulcer is improving.
[2016-07-23] MEDS: GABAPENTIN 100 MG CAP PO SCH (21:38)
[2016-07-23] MEDS: CEFTRIAXONE SOD INJ 2,000 MG in DEXTROSE 5% 50ML 50 ML IV SCH (21:40)
[2016-07-23] MEDS: COLLAGENASE OINT 30 GM TUBE EXT SCH (23:50)
[2016-07-24 00:03] VITALS: BP 167/78; PULSE 95; TEMP 36.8; O2SAT 96
[2016-07-24 01:45] VITALS: BP 122/55; PULSE 75
[2016-07-24] MEDS: HYDROCODONE/ACETAMOPHEN 5/325MG TAB PO PRN ×2 (03:54→18:29)
[2016-07-24 07:16] VITALS: BP 99/66; PULSE 93; TEMP 37.1; O2SAT 90
[2016-07-24] MEDS: SODIUM CHLORIDE 0.9% 1000ML 1,000 ML IV SCH ×2 (09:57→20:43)
[2016-07-24] MEDS: HEPARIN SOD 5000 UNIT/0.5 ML CARP SQ SCH ×2 (10:00→20:41)
[2016-07-24] MEDS: FINASTERIDE 5 MG TAB PO SCH (10:02)
[2016-07-24] MEDS: SULFAMETHOXAZOLE/TRIMETHOPRIM DS 800/160MG TAB PO SCH ×2 (10:02→20:52)
[2016-07-24] MEDS: GABAPENTIN 100 MG CAP PO SCH ×3 (10:03→20:52)
[2016-07-24] MEDS: MEMANTINE 5 MG TAB PO SCH (10:03)
[2016-07-24] MEDS: HALOPERIDOL 5 MG TAB PO SCH ×2 (10:04→20:52)
[2016-07-24] MEDS: BENZTROPINE MESYLATE 1 MG TAB PO SCH ×2 (10:04→20:52)
[2016-07-24] MEDS: DIVALPROEX SODIUM 500 MG DELAY RELEASE TAB PO SCH ×2 (10:05→20:51)
[2016-07-24] MEDS: ASPIRIN 81 MG ECTAB PO SCH (10:06)
[2016-07-24] MEDS: BuPROPion SR 100 MG TABCR PO SCH (10:06)
[2016-07-24] MEDS: DOCUSATE SODIUM 100 MG CAP PO SCH (10:06)
[2016-07-24] MEDS: METOPROLOL SUCC 25MG EXT REL TAB PO SCH (10:06)
[2016-07-24] MEDS: COLLAGENASE OINT 30 GM TUBE EXT SCH (11:37)
[2016-07-24 15:31] VITALS: BP 153/70; PULSE 100; TEMP 37.1; O2SAT 96
[2016-07-24 16:00] VITALS: O2SAT 96
--- NOTE | 2016-07-24 17:54 | PROGRESS NOTE ---
DATE: 07/24/2016 A 61-year-old male, admitted with cellulitis of his left foot and lower leg. He has an ulcer on his right heel. He has severe peripheral arterial disease. He was admitted the last time with acute ischemia of his left foot and did undergo revascularization procedure. He developed a hematoma on his left heel that eventually the skin broke and he has known ulcer which has been debrided. His medical problems include arterial hypertension, peripheral arterial disease, smoking and bipolar disorder. The patient was admitted. He was started on antibiotics. Initially, he was orthostatic. His blood pressure did decrease especially when he was standing up. He felt lightheaded. At this point, he denied any headache. No dizziness. No chest pain, no shortness of breath. No abdominal pain, no nausea, no vomiting. No problem with his bowel movements. He has a history of urinary retention requiring catheterization. He is having pain in his left foot. PHYSICAL EXAMINATION: GENERAL: Well-developed, in no distress. VITAL SIGNS: Blood pressure 99/66, pulse 93, respirations 17, temperature 37.1 and oxygen saturation 90% on room air. SKIN: Warm and dry. No rash. HEENT: No mucosal abnormality. NECK: No JVD. No adenopathy. HEART: Regular heart sounds. LUNGS: Clear. ABDOMEN: Soft and nontender. BACK: No spinal tenderness. EXTREMITIES: Ulcer, right heel. No evidence of any drainage. Dressing is in place. ASSESSMENT: 1. Cellulitis, left foot. 2. Ulcer of the left heel. 3. Peripheral arterial disease. 4. Bipolar disorder. PLAN: 1. Continue his therapies. 2. Continue dressings to his left foot. 3. Dr. Ac did order an arterial Doppler of his legs and the test is still pending. [facility]
[2016-07-24] MEDS: CEFTRIAXONE SOD INJ 2,000 MG in DEXTROSE 5% 50ML 50 ML IV SCH (21:11)
[2016-07-24 22:53] VITALS: BP 97/65; PULSE 105; TEMP 36.6; O2SAT 95
[2016-07-25] MEDS: HYDROCODONE/ACETAMOPHEN 5/325MG TAB PO PRN ×3 (00:18→21:11)
[2016-07-25] MEDS: SODIUM CHLORIDE 0.9% 1000ML 1,000 ML IV SCH ×2 (06:37→16:17)
[2016-07-25 06:51] LABS: HEMATOCRIT 27.1 % (42-52); MEAN CELL VOLUME 85.5 fL (80-100); MEAN CORPUSCULAR HEMOGLOBIN 28.7 pg (25-34); MEAN CORPUSCULAR HGB CONC 33.6 g/dl (32-36); MEAN PLATELET VOLUME 8.8 fL (7.4-10.4); PLATELET COUNT 265 K/uL (130-400); RED BLOOD COUNT 3.17 M/uL (4.7-6.1); WHITE BLOOD COUNT 5.23 K/uL (4.8-10.8)
[2016-07-25 07:08] VITALS: BP 105/66; PULSE 86; TEMP 36.7; O2SAT 93
[2016-07-25 07:17] LABS: BUN/CREATININE RATIO 8.3 (10-20); CALCIUM 8.6 mg/dl (8.5-10.1); CREATININE 0.52 mg/dl (0.60-1.40); POTASSIUM 4.2 mmol/L (3.5-5.1)
[2016-07-25 08:30] VITALS: BP 103/66; PULSE 99
[2016-07-25] MEDS: MEMANTINE 5 MG TAB PO SCH (08:30)
[2016-07-25] MEDS: DIVALPROEX SODIUM 500 MG DELAY RELEASE TAB PO SCH ×2 (08:31→21:12)
[2016-07-25] MEDS: FINASTERIDE 5 MG TAB PO SCH (08:31)
[2016-07-25] MEDS: BENZTROPINE MESYLATE 1 MG TAB PO SCH ×2 (08:31→21:12)
[2016-07-25] MEDS: METOPROLOL SUCC 25MG EXT REL TAB PO SCH (08:32)
[2016-07-25] MEDS: DOCUSATE SODIUM 100 MG CAP PO SCH (08:32)
[2016-07-25] MEDS: SULFAMETHOXAZOLE/TRIMETHOPRIM DS 800/160MG TAB PO SCH ×2 (08:32→21:11)
[2016-07-25] MEDS: ASPIRIN 81 MG ECTAB PO SCH (08:32)
[2016-07-25] MEDS: BuPROPion SR 100 MG TABCR PO SCH (08:32)
[2016-07-25] MEDS: GABAPENTIN 100 MG CAP PO SCH ×3 (08:33→21:12)
[2016-07-25] MEDS: HEPARIN SOD 5000 UNIT/0.5 ML CARP SQ SCH ×2 (08:34→19:06)
[2016-07-25] MEDS: HALOPERIDOL 5 MG TAB PO SCH ×2 (08:35→21:12)
[2016-07-25] MEDS: COLLAGENASE OINT 30 GM TUBE EXT SCH (11:07)
[2016-07-25 15:20] VITALS: BP 102/67; PULSE 89; TEMP 36.9; O2SAT 96
--- NOTE | 2016-07-25 16:41 | PROGRESS NOTE ---
DATE: 07/25/2016 SUBJECTIVE: A 61-year-old male admitted with cellulitis of the left foot and left lower leg. He is also treated for multiple other problems including left heel ulcer, peripheral arterial disease, and bipolar disorder. He also presented with orthostatic hypotension. The patient was started on IV Rocephin and oral Septra DS based on his last culture from his heel. He denied any headache or dizziness. No chest pain and no shortness of breath. No abdominal pain. No nausea and no vomiting. No problem urinating. He has had a history of urinary retention in the past and required catheterization. He is still complaining of pain in his left foot. PHYSICAL EXAMINATION: GENERAL: Well developed, in no acute distress. He was sitting at his bedside. VITAL SIGNS: Blood pressure 105/66, pulse 86, respirations 19, temperature 36.7, and oxygen saturation 93% on room air. SKIN: Warm and dry. No rash. HEENT: No mucosal abnormality. NECK: No JVD. No adenopathy. HEART: Regular heart sounds. LUNGS: Clear. ABDOMEN: Soft and nontender. BACK: No spinal tenderness. EXTREMITIES: The redness in his left foot and lower leg has resolved. He still has some tenderness in the left heel and loft foot. Minimal edema. No clubbing or cyanosis. TODAY'S LABORATORY TESTS: WBC count 5230, hemoglobin 9.1, hematocrit 27.1, and platelet count 265,000. Sodium 134, potassium 4.2, chloride 101, CO2 of 23, BUN 4, creatinine 0.52, glucose 88, and calcium 8.6. ASSESSMENT: 1. Cellulitis, left lower leg and left foot. 2. Ulcer, left feet. 3. Peripheral arterial disease. 4. Arterial hypotension. 5. Bipolar disorder. PLAN: 1. Continue his antibiotics. 2. Physical and occupational therapy. 3. Continue local treatment for his ulcer on his left heel. 4. Case management to try to see what is going to be the best discharge plan for him.
[2016-07-25] MEDS: CEFTRIAXONE SOD INJ 2,000 MG in DEXTROSE 5% 50ML 50 ML IV SCH (21:16)
[2016-07-25 23:20] VITALS: BP 115/67; PULSE 103; TEMP 37.3; O2SAT 91
[2016-07-26] MEDS: HYDROCODONE/ACETAMOPHEN 5/325MG TAB PO PRN ×3 (01:39→21:57)
[2016-07-26] MEDS: SODIUM CHLORIDE 0.9% 1000ML 1,000 ML IV SCH ×2 (01:39→11:51)
[2016-07-26 07:08] VITALS: BP 128/81; PULSE 97; TEMP 36.8; O2SAT 95
[2016-07-26 07:29] LABS: BUN/CREATININE RATIO 8.2 (10-20); CREATININE 0.57 mg/dl (0.60-1.40); POTASSIUM 4.2 mmol/L (3.5-5.1)
[2016-07-26] MEDS: SULFAMETHOXAZOLE/TRIMETHOPRIM DS 800/160MG TAB PO SCH ×2 (08:30→21:56)
[2016-07-26] MEDS: BENZTROPINE MESYLATE 1 MG TAB PO SCH ×2 (08:30→21:58)
[2016-07-26] MEDS: GABAPENTIN 100 MG CAP PO SCH ×3 (08:30→21:59)
[2016-07-26] MEDS: DOCUSATE SODIUM 100 MG CAP PO SCH (08:30)
[2016-07-26] MEDS: ASPIRIN 81 MG ECTAB PO SCH (08:30)
[2016-07-26] MEDS: DIVALPROEX SODIUM 500 MG DELAY RELEASE TAB PO SCH ×2 (08:30→21:58)
[2016-07-26] MEDS: FINASTERIDE 5 MG TAB PO SCH (08:30)
[2016-07-26] MEDS: COLLAGENASE OINT 30 GM TUBE EXT SCH (08:30)
[2016-07-26] MEDS: MEMANTINE 5 MG TAB PO SCH (08:31)
[2016-07-26] MEDS: METOPROLOL SUCC 25MG EXT REL TAB PO SCH (08:31)
[2016-07-26] MEDS: HALOPERIDOL 5 MG TAB PO SCH ×2 (08:31→21:56)
[2016-07-26] MEDS: BuPROPion SR 100 MG TABCR PO SCH (08:31)
[2016-07-26] MEDS: HEPARIN SOD 5000 UNIT/0.5 ML CARP SQ SCH ×2 (08:34→19:56)
--- NOTE | 2016-07-26 10:44 | Progress Note ---
Progress Note After review of pt's US, recommending LLE angio with intervention in OR tomorrow. Procedure discussed with pt, he is agreeable. Attempted to call pt's sister, no answer. Will discuss with pt's POA, his sister, Tanna, by phone for consent.
[2016-07-26 11:03] VITALS: BP 111/68; PULSE 101; O2SAT 96
[2016-07-26 15:09] VITALS: BP 96/73; PULSE 99; TEMP 37.3; O2SAT 95
[2016-07-26] MEDS: CEFTRIAXONE SOD INJ 2,000 MG in DEXTROSE 5% 50ML 50 ML IV SCH (21:55)
[2016-07-26 23:26] VITALS: BP 115/69; PULSE 105; TEMP 37; O2SAT 98
--- NOTE | 2016-07-26 23:27 | PROGRESS NOTE ---
DATE: 07/26/2016 A 61-year-old male, admitted with cellulitis of his left foot and left lower leg. He has an ulcer on his left heel. Initially, he developed a hematoma and then the skin got ulcerative. He did require debridement. His medical problems include; peripheral arterial disease, arterial hypertension, bipolar disorder and severe peripheral neuropathy. The patient was admitted. He was started on IV and oral antibiotics with Rocephin and Septra-DS. The choice was based on the results of the last culture. His condition has been improving. He has not had any fever. No chills. He denied any headache or dizziness. No chest pain. He does have shortness of breath. He has been diagnosed with adenocarcinoma of the lung and had surgery, radiation therapy and chemotherapy. No abdominal pain, no nausea, no vomiting. No problem with his bowel movements or urinating. No ankle edema. PHYSICAL EXAMINATION: GENERAL: Well-developed, in no distress. VITAL SIGNS: Blood pressure 128/81, pulse 97, respirations 19, temperature 36.8 and oxygen saturation 95% on room air. SKIN: Warm and dry. No rash. HEENT: No mucosal abnormalities. NECK: No JVD. No adenopathy. HEART: Regular heart sounds. LUNGS: Clear. ABDOMEN: Soft and nontender. EXTREMITIES: Dressing over his left heel. The cellulitis is resolving. The redness has markedly resolved. ASSESSMENT: 1. Cellulitis, left foot and left heel. 2. Ulcer, left heel. 3. Peripheral arterial disease. 4. Bipolar disorder. 5. Peripheral neuropathy. PLAN: 1. Continue the same antibiotics. 2. Physical and occupational therapies were ordered. 3. We are working on his discharge planning. The patient is insisting that he wants to go back home. We will need to arrange for home health nursing and therapies at home. He will also need to follow up with the wound care clinic. [facility]EL[facility]
[2016-07-27] VITALS (16 sets, daily range): BP systolic 92–127; BP diastolic 59–79; PULSE 95–116; TEMP 36.1–37.5; O2SAT 90–96
[2016-07-27] MEDS ORDERED: CEFAZOLIN 2000 MG/60 ML D5W 60 ML IV SCH (06:00)
[2016-07-27 08:02] LABS: BUN/CREATININE RATIO 9.2 (10-20); CALCIUM 9.3 mg/dl (8.5-10.1); CREATININE 0.59 mg/dl (0.60-1.40); POTASSIUM 3.9 mmol/L (3.5-5.1)
[2016-07-27] MEDS: DOCUSATE SODIUM 100 MG CAP PO SCH (08:28)
[2016-07-27] MEDS: HEPARIN SOD 5000 UNIT/0.5 ML CARP SQ SCH ×2 (08:28→19:18)
[2016-07-27] MEDS: BuPROPion SR 100 MG TABCR PO SCH (08:28)
[2016-07-27] MEDS: COLLAGENASE OINT 30 GM TUBE EXT SCH (08:28)
[2016-07-27] MEDS: HALOPERIDOL 5 MG TAB PO SCH ×2 (08:28→20:54)
[2016-07-27] MEDS: MEMANTINE 5 MG TAB PO SCH (08:29)
[2016-07-27] MEDS: GABAPENTIN 100 MG CAP PO SCH ×3 (08:29→20:55)
[2016-07-27] MEDS: ASPIRIN 81 MG ECTAB PO SCH (08:29)
[2016-07-27] MEDS: FINASTERIDE 5 MG TAB PO SCH (08:29)
[2016-07-27] MEDS: METOPROLOL SUCC 25MG EXT REL TAB PO SCH (08:30)
[2016-07-27] MEDS: DIVALPROEX SODIUM 500 MG DELAY RELEASE TAB PO SCH ×2 (08:30→20:53)
[2016-07-27] MEDS: SULFAMETHOXAZOLE/TRIMETHOPRIM DS 800/160MG TAB PO SCH ×2 (08:30→20:55)
[2016-07-27] MEDS: BENZTROPINE MESYLATE 1 MG TAB PO SCH ×2 (08:30→20:53)
--- NOTE | 2016-07-27 09:52 | Progress Note ---
Progress Note Patient for a left lower extremity arteriogram with possible intervention. I have discussed the risks options and benefits of the procedure with the patient. The patient understands the risks options and benefits and agrees to the procedure. I have examined the patient, reviewed the History & Physical and in the interval since the performance of the History & Physical I have noted the following changes of clinical significance: No changes noted
--- NOTE | 2016-07-27 09:53 | Procedure Note ---
Pre-Mod Sedation Assessment General Date of Moderate Sedation: Jul 27, 2016. Vital Signs: Vital Signs Past 12 Hours Date Time Temp Pulse Resp B/P Pulse Ox O2 Delivery O2 Flow Rate FiO2 07/27/16 07:37 37.5 105 18 102/67 91 Room Air 07/26/16 23:30 Room Air 07/26/16 23:26 37.0 105 18 115/69 98 Room Air Pre-Sedation Airway Assessment Oral Cavity: Dentures Smoking Status: Current Every Day Smoker Mallampati Classification: Class I ASA Classification: Class II Notes The planned sedation has been discussed with the patient and consent obtained. I have identified the patient, determined the appropriateness of sedation and have assessed the patient immediately prior to the procedure. All medicine(s) and interventions are by my order.
[2016-07-27] MEDS ORDERED: HEPARIN SOD (PORCINE) 1000 UNIT/ML 10 ML VIAL ONE (09:59)
[2016-07-27] MEDS ORDERED: FENTANYL CITRATE INJ 50 MCG/1 ML 2 ML VIAL ONE (09:59)
[2016-07-27] MEDS ORDERED: MIDAZOLAM HCL 1 MG/ML 2ML VIAL ONE (10:00)
[2016-07-27] MEDS ORDERED: MIDAZOLAM HCL 1 MG/ML 2ML VIAL IV ONE (10:54)
[2016-07-27] MEDS ORDERED: FENTANYL CITRATE INJ 50 MCG/1 ML 2 ML VIAL IV ONE (10:55)
[2016-07-27] MEDS ORDERED: LIDOCAINE HCL 1% 20 ML VIAL INFIL ONE (10:55)
[2016-07-27] MEDS ORDERED: IODIXANOL (VISIPAQUE) 270 MG/ML 50ML FLUSH ONE (11:44)
--- NOTE | 2016-07-27 11:51 | Procedure Note ---
Post-Moderate Sedation Plan General Date of Moderate Sedation Jul 27, 2016. Vital Signs: Vital Signs Past 12 Hours Date Time Temp Pulse Resp B/P Pulse Ox O2 Delivery O2 Flow Rate FiO2 07/27/16 10:30 37.1 109 24 99/66 94 Room Air 07/27/16 10:28 37.1 109 24 99/66 94 Room Air 07/27/16 07:37 37.5 105 18 102/67 91 Room Air Review - Discharge Plan Post Moderate Sedation Plan: On clinical assessment, the patient appears to have tolerated the conscious sedation without complications. Patient is recovering as anticipated. Patient will continue to be monitored by nursing and may be discharged when conscious sedation discharge criteria are met.
--- NOTE | 2016-07-27 11:51 | [facility] Post Operative Brief Note ---
Immediate Operative Summary Operative Date Jul 27, 2016. Pre-Operative Diagnosis Left Popliteal Artery Occlusion Post-Operative Diagnosis Same Procedure(s) Performed Left Lower Extremity Angiogram, Percutaneous Transluminal Angioplasty and stenting of Left Popliteal Artery, Moderate sedation from 1054 - [address] Ac Autocutter Surgeon(s) None Estimated Blood Loss 10 Findings improve PT doppler Occluded left popliteal, minimal residual post stenting Post tib runoff to foot Specimens None Anesthesia Local with moderate conscious sedation Complication(s) None Disposition Recovery Room / PACU
[2016-07-27] MEDS ORDERED: SODIUM CHLORIDE 0.9% 1000ML 1,000 ML IV SCH (12:00)
--- NOTE | 2016-07-27 12:15 | DIAGNOSTIC IMAGING REPORT ---
DATE OF PROCEDURE: 07/27/2016 PREOPERATIVE DIAGNOSIS: Left popliteal artery occlusion. POSTOPERATIVE DIAGNOSIS: Same. PROCEDURE: Left lower extremity arteriography, balloon stenting of left popliteal artery, moderate conscious sedation. SURGEON: Dr. Ac. ANESTHETIC: Local with moderate conscious sedation 55 minutes. PROCEDURE INDICATIONS: The patient is a 61-year-old gentleman who had limb salvage cross femoral bypass done approximately slightly over a month ago. He has a heel ulcer which he developed since the surgery which has marginal granulation tissue. His posterior tibial artery is still decreased when compared to the right. We recommended arteriography. Noninvasives suggested a popliteal artery occlusion or stenosis. The patient understood the risks, options and benefits and agreed to have this procedure. This was explained to him and his sister who agreed to go follow the procedure. DESCRIPTION OF PROCEDURE: The patient was taken to the angio suite and placed in supine position. After the abdomen was prepped and draped in a sterile manner, percutaneous puncture was made from the cross femoral bypass in the midline of the abdomen. This was done with micropuncture technique. Arteriography was then performed which did show a widely patent femoral anastomosis. The superficial femoral artery was patent. The popliteal artery was occluded at the knee level, it reconstituted the distal popliteal. There was a posterior tibial artery runoff to the foot. At that point, it was decided the balloon and stent this area. The micropuncture sheath was exchanged for a 5-[place]oc[place] sheath. Using an 0.035 wire and a Quick-Cross catheter, the popliteal lesion was actually crossed. Wire was removed. Injection through the Quick-Cross confirmed to be true lumen in the distal popliteal. An 0.014 wire was then inserted. This was a command XL. A 3 x 200 balloon was then passed over the wire, the distal popliteal was then dilated. More proximally this was expanded to a 4 mm by using a 4 x 120 balloon and again, more proximal popliteal was dilated with a 5 x 100. There were still 2 areas of residual stenosis, most likely would respond better to stenting. We switched out the sheath to a 6-[place]oc[place] sheath. We reinserted the Quick-Cross then the 0.014 Command wire, the stents were inserted. A 5 x 10 [place] was inserted and deployed across the area of previous occlusion. Hand injection showed this area to be widely patent with good flow, but there was still a small area distally which had residual narrowing. We then overlapped a 5 x 2-1/2 Viabahn distally on the stent. Once this was done, we re-ballooned it with a 3 x 200 balloon. At that point, a hand injection showed excellent flow through the occluded area. There was no residual stenosis. There was excellent outflow through the posterior tibial all the way down through the foot feeding the arch of the foot. At that point, the wire was pulled, the sheath was pulled, pressure was applied and adequate hemostasis was obtained. Pressure dressing was applied to the wound. The patient left the angio suite in good condition and tolerated the procedure well. [facility]ELIA
[2016-07-27] MEDS: HYDROCODONE/ACETAMOPHEN 5/325MG TAB PO PRN (14:07)
[2016-07-27] MEDS: CEFTRIAXONE SOD INJ 2,000 MG in DEXTROSE 5% 50ML 50 ML IV SCH (21:50)
[2016-07-28] VITALS (12 sets, daily range): BP systolic 93–128; BP diastolic 55–75; PULSE 97–118; TEMP 36.8–37.6; O2SAT 86–98
[2016-07-28] MEDS: HYDROCODONE/ACETAMOPHEN 5/325MG TAB PO PRN (00:17)
--- NOTE | 2016-07-28 00:25 | PROGRESS NOTE ---
DATE: 07/27/2016 A 61-year-old male admitted with cellulitis of his left foot. He has severe peripheral arterial disease and recently underwent a revascularization procedure. He also had adenocarcinoma of the lung and has a prior chemo and radiation therapy. On the day of admission, he was seen by Dr. Cheng and he was found to be weak and tired and was hypotensive and also has developed pleural effusions. The pleural effusions were not large to the point where any thoracentesis or any further treatment is needed. The patient was admitted. He was started on IV antibiotics. Today, when I came back to see him this evening, I noted that Dr. Ac has taken him to the operating room and did an angioplasty of an occluded popliteal artery on the left side. The patient denied any headache or dizziness. No chest pain, no shortness of breath. No abdominal pain, no nausea, no vomiting. No problem with his bowel movements. After the surgery tonight, he was having problem urinating. Denied any pain in his back. He is having some discomfort at the site of this procedure. PHYSICAL EXAMINATION: GENERAL: Well developed, in no distress. VITAL SIGNS: Blood pressure 101/65, pulse 109, respirations 18, temperature 36.4, oxygen saturation 94% on room air. SKIN: Warm and dry. No rash. HEENT: No mucosal abnormality. NECK: No JVD. No adenopathy. HEART: Regular heart sounds. LUNGS: Clear. ABDOMEN: Soft and benign. EXTREMITIES: The cellulitis in his left foot and left lower leg seem to have resolved. As noted, he underwent a stenting of his occluded popliteal artery this afternoon by Dr. Ac. ASSESSMENT: 1. Cellulitis, left foot and left lower leg. 2. Peripheral arterial disease. 3. Status post stenting of left popliteal artery done this afternoon. 4. Urinary retention. 5. Bipolar disorder. PLAN: 1. Continuing the same medications. 2. A Swartz catheter had to be inserted this evening. 3. He did have a history of urinary retention after his last procedure. He had been on Flomax, but because of hypotension, I did discontinue this medication. He continues to be on finasteride. 4. We are planning on getting him home. He is insisting that he wants to go home. Eventually, he will be sent home with home health services.
[2016-07-28 07:01] LABS: HEMATOCRIT 26.4 % (42-52); MEAN CELL VOLUME 82.8 fL (80-100); MEAN CORPUSCULAR HEMOGLOBIN 28.2 pg (25-34); MEAN CORPUSCULAR HGB CONC 34.1 g/dl (32-36); MEAN PLATELET VOLUME 8.4 fL (7.4-10.4); PLATELET COUNT 330 K/uL (130-400); RED BLOOD COUNT 3.19 M/uL (4.7-6.1); WHITE BLOOD COUNT 9.38 K/uL (4.8-10.8)
[2016-07-28] MEDS: HEPARIN SOD 5000 UNIT/0.5 ML CARP SQ SCH ×2 (08:55→20:27)
[2016-07-28] MEDS: BENZTROPINE MESYLATE 1 MG TAB PO SCH ×2 (09:04→20:32)
[2016-07-28] MEDS: DOCUSATE SODIUM 100 MG CAP PO SCH (09:05)
[2016-07-28] MEDS: DIVALPROEX SODIUM 500 MG DELAY RELEASE TAB PO SCH ×2 (09:06→20:32)
[2016-07-28] MEDS: ASPIRIN 81 MG ECTAB PO SCH (09:07)
[2016-07-28] MEDS: HALOPERIDOL 5 MG TAB PO SCH ×2 (09:09→20:31)
[2016-07-28] MEDS: MEMANTINE 5 MG TAB PO SCH (09:10)
[2016-07-28] MEDS: GABAPENTIN 100 MG CAP PO SCH ×2 (09:11→13:31)
[2016-07-28] MEDS: SULFAMETHOXAZOLE/TRIMETHOPRIM DS 800/160MG TAB PO SCH ×2 (09:12→20:33)
[2016-07-28] MEDS: FINASTERIDE 5 MG TAB PO SCH (09:12)
[2016-07-28] MEDS: BuPROPion SR 100 MG TABCR PO SCH (09:17)
[2016-07-28] MEDS: METOPROLOL SUCC 25MG EXT REL TAB PO SCH (09:17)
[2016-07-28] MEDS: COLLAGENASE OINT 30 GM TUBE EXT SCH (09:24)
[2016-07-28] MEDS ORDERED: LEVALBUTEROL 1.25MG/3ML NEB INH STA (09:49)
[2016-07-28] MEDS ORDERED: FUROSEMIDE INJ 20 MG in SYRINGE 0 ML IV ONE ×2 (10:15→19:30)
[2016-07-28] MEDS ORDERED: FUROSEMIDE INJ 20 MG in SYRINGE 0 ML IV SCH (10:15)
--- NOTE | 2016-07-28 10:25 | Progress Note ---
Progress Note Date of Service: Jul 28, 2016. Subjective 61 yo m with multiple medical problems, POD # 1 after L popliteal art TISSUE PACKER/stent d/t L heel wound. Pt states he is feeling more confused today. Per staff, pt mildly SOB with O2 sats 86% on RA. Pt denies any pain in lower extremities. Problem List Medical Problems: (1) Acute bronchitis Status: Acute (2) Anemia Status: Acute (3) Cellulitis of left lower leg Status: Acute (4) Failure of outpatient treatment Status: Acute (5) Hypertension Status: Acute (6) Hyponatremia Status: Acute (7) Hypotension Status: Acute (8) Left leg cellulitis Status: Acute (9) Left upper quadrant pain Status: Acute (10) Mass of upper lobe of left lung Status: Acute (11) Shortness of breath Status: Acute (12) Thrush Status: Acute (13) Wound infection Status: Acute Objective Vital Signs Vital Signs Past 12 Hours Date Time Temp Pulse Resp B/P Pulse Ox O2 Delivery O2 Flow Rate FiO2 07/28/16 09:58 98 Nasal Cannula 2.0 07/28/16 09:00 118 117/75 86 Room Air 07/28/16 08:39 36.8 97 19 99/59 94 Room Air 07/28/16 04:23 37.6 114 20 93/56 92 Room Air 07/28/16 00:24 Room Air 07/27/16 23:02 37.1 116 20 123/59 92 Room Air Exam CONST: A&O x4, NAD, chronically ill appearing male EXT: pelvic puncture C/D/I, mild local tenderness, no hematoma noted. L femoral palpable. Dopplerable PT pulse. + brisk cap refill. Heel wound with necrotic tissue. No local erythema noted. No odor. Intake & Output 8-Hour Column 07/27/16 07/28/16 07/28/16 16:00 00:00 08:00 Intake Total 240 ml 34 ml Output Total 400 ml 575 ml 250 ml Balance -160 ml -541 ml -250 ml 24-Hour Column 07/28/16 08:00 Intake Total 274 ml Output Total 1225 ml Balance -951 ml Laboratory and Microbiology Results Past 24 Hours Test 07/28/16 06:40 Range/Units White Blood Count 9.38 4.8-10.8 K/uL Red Blood Count 3.19 4.7-6.1 M/uL Hemoglobin 9.0 14.0-18.0 g/dL Hematocrit 26.4 42-52 % Mean Corpuscular Volume 82.8 80-100 fL Mean Corpuscular Hemoglobin 28.2 25-34 pg Mean Corpuscular Hemoglobin Concent 34.1 32-36 g/dl RDW Standard Deviation 51.3 36.4-46.3 fL RDW Coefficient of Variation 16.8 11.5-14.5 % Platelet Count 330 130-400 K/uL Mean Platelet Volume 8.4 7.4-10.4 fL ASSESSMENT and PLAN: s/p L popliteal art TISSUE PACKER/stent LLE severe PAD with nonhealing heel wound. Pt revascularized yesterday d/t nonhealing heel wound. Will continue to watch L foot wound. Further recs per primary physician.
--- NOTE | 2016-07-28 11:42 | DIAGNOSTIC IMAGING REPORT ---
CHEST 1 VW FRONT-NOT PORTABLE CLINICAL HISTORY: dyspnea COMPARISON STUDY: 07/22/2016 FINDINGS: The heart is mildly enlarged. Since the prior study, the patient developed airspace opacities most pronounced in the left perihilar region and right upper lobe. Diagnostic considerations include pulmonary edema versus a bilateral pneumonia. Clinical and radiographic follow-up is recommended. A trace right pleural effusion is suspected.[ IMPRESSION: Interval development of bilateral pulmonary airspace opacities. Diagnostic considerations include pulmonary edema versus a bilateral pneumonia. Clinical and radiographic follow-up is recommended. Electronically signed by: Rhys Dove M.D. 07/28/2016 11:41 AM Dictated Date/Time: 07/28/2016 11:39 AM
--- NOTE | 2016-07-28 12:06 | DIAGNOSTIC IMAGING REPORT ---
LOWER EXTREMITY VENOUS DOPPLER HISTORY: Venous mapping left heel ulcer COMPARISON STUDY: None. FINDINGS: There is normal compressibility, flow, and augmentation within the lower extremity deep venous system. Venous mapping was performed of the left saphenous vein from the proximal thigh through the mid calf region. Dimensions are on the attached sheet. Left groin none surrounding is unaltered. IMPRESSION: No DVT within the lower extremity. Venous mapping left saphenous vein as described Electronically signed by: Fam Smith M.D. 07/28/2016 12:05 PM Dictated Date/Time: 07/28/2016 12:03 PM
[2016-07-28] MEDS: LEVALBUTEROL 1.25MG/3ML NEB INH SCH ×2 (14:55→19:50)
--- NOTE | 2016-07-28 22:09 | PROGRESS NOTE ---
DATE: 07/28/2016 A 61-year-old male, with multiple medical problems includin. Cellulitis of the left foot and left lower leg. 2. Peripheral arterial disease. 3. Adenocarcinoma of the lung. 4. Bipolar disorder. 5. Peripheral neuropathy. 6. Ulcer, left heel. The patient was admitted. He was started on IV antibiotics and oral Septra-DS. The IV antibiotic was Rocephin. The swelling, redness and inflammation in his left foot and lower leg have subsided. Yesterday, because of his peripheral arterial disease and ulcer on his heel Dr. Ac proceeded with a repeat angiogram. He had an occlusion of his left popliteal artery. A stent was placed. During the day today, the patient became dyspneic, hypoxic. He was confused. His chest x-ray showed evidence of congestive heart failure. He was given IV Lasix. He was given high-flow treatments and placed on oxygen. I saw him again this afternoon. He was resting comfortably. He was not in any distress. He remains confused. No headache or dizziness. No chest pain. His shortness of breath has subsided. No abdominal pain, no nausea, no vomiting. No pain in his left foot. PHYSICAL EXAMINATION: GENERAL: Well-developed, in no distress. VITAL SIGNS: Blood pressure 110/55, pulse 109, respirations 18, temperature 36.8 and oxygen saturation 92% on room air. SKIN: Warm and dry. No rash. HEENT: No mucosal abnormality. NECK: No adenopathy, no thyromegaly, no JVD. HEART: Regular heart sounds. LUNGS: Decreased breath sounds. Wheezing, minimal. ABDOMEN: Soft and nontender. EXTREMITIES: No edema, clubbing or cyanosis. His feet were warm. The cellulitis has definitely resolved. Chest x-ray from today showed evidence of congestive changes. Today's laboratory tests showed a WBC count of 9380, hemoglobin 9, hematocrit 26.4 and platelet count 330,000. ASSESSMENT: 1. Cellulitis of the left foot and left leg. 2. Peripheral arterial disease. 3. Congestive heart failure. 4. Chronic obstructive pulmonary disease. 5. Smoker. 6. Bipolar disorder. 7. Peripheral neuropathy. 8. Urinary retention requiring catheterization. PLAN: 1. He was given an additional dose of IV Lasix tonight. 2. Continue all his medications. 3. Continue high-flow treatments. 4. Continue with therapies. 5. We will recheck his chest x-ray tomorrow. 6. An echocardiogram was ordered. 7. He still insists that he wants to go home and we are working with him on that.
[2016-07-28] MEDS: CEFTRIAXONE SOD INJ 2,000 MG in DEXTROSE 5% 50ML 50 ML IV SCH (22:25)
[2016-07-29] VITALS (9 sets, daily range): BP systolic 102–145; BP diastolic 59–76; PULSE 67–119; TEMP 36.1–37.2; O2SAT 91–96
[2016-07-29] MEDS ORDERED: NURSING VERBAL MED ORDER ONE ×3 (01:30→06:00)
[2016-07-29] MEDS ORDERED: LORAZEPAM INJ 0.5 MG in SYRINGE 0.75 ML IV STA ×2 (01:31→02:36)
[2016-07-29] MEDS: LEVALBUTEROL 1.25MG/3ML NEB INH SCH ×5 (02:38→23:45)
[2016-07-29] MEDS ORDERED: LORAZEPAM INJ 1 MG in SYRINGE 0.5 ML IV STA (06:03)
[2016-07-29 06:22] LABS: BASO % 0.2 %; BASO ABS # 0.02 K/uL (0-0.2); EOS % 0.3 %; HEMATOCRIT 25.5 % (42-52); IG% 0.4 %; LYMPH % 6.3 %; LYMPH ABS # 0.71 K/uL (1.2-3.4); MEAN CORPUSCULAR HEMOGLOBIN 27.7 pg (25-34); MEAN CORPUSCULAR HGB CONC 33.7 g/dl (32-36); MEAN PLATELET VOLUME 8.3 fL (7.4-10.4); MONO % 11.9 %; NEUT % 80.9 %; PLATELET COUNT 344 K/uL (130-400); RED BLOOD COUNT 3.11 M/uL (4.7-6.1)
[2016-07-29 06:46] LABS: ANISOCYTOSIS PRESENT; COMPLETE YES; GIANT PLATELETS 1+; HYPOCHROMIA PRESENT
[2016-07-29] MEDS ORDERED: HALOPERIDOL LACTATE 5 MG/ML 1 ML VIAL IM STA (06:51)
[2016-07-29 06:55] LABS: ALB/GLOB RATIO 0.5 (0.9-2); CALCIUM 9.1 mg/dl (8.5-10.1); CREATININE 0.69 mg/dl (0.60-1.40); POTASSIUM 3.6 mmol/L (3.5-5.1)
[2016-07-29] MEDS: HEPARIN SOD 5000 UNIT/0.5 ML CARP SQ SCH ×2 (08:38→22:09)
[2016-07-29] MEDS: SULFAMETHOXAZOLE/TRIMETHOPRIM DS 800/160MG TAB PO SCH ×2 (08:40→22:07)
[2016-07-29] MEDS: HALOPERIDOL 5 MG TAB PO SCH ×2 (08:40→22:06)
[2016-07-29] MEDS: DOCUSATE SODIUM 100 MG CAP PO SCH (08:40)
[2016-07-29] MEDS: FINASTERIDE 5 MG TAB PO SCH (08:40)
[2016-07-29] MEDS: BENZTROPINE MESYLATE 1 MG TAB PO SCH ×2 (08:40→22:08)
[2016-07-29] MEDS: METOPROLOL SUCC 25MG EXT REL TAB PO SCH (08:40)
[2016-07-29] MEDS: ASPIRIN 81 MG ECTAB PO SCH (08:40)
[2016-07-29] MEDS: BuPROPion SR 100 MG TABCR PO SCH (08:40)
[2016-07-29] MEDS: MEMANTINE 5 MG TAB PO SCH (08:40)
[2016-07-29] MEDS: DIVALPROEX SODIUM 500 MG DELAY RELEASE TAB PO SCH ×2 (08:40→22:05)
[2016-07-29] MEDS: COLLAGENASE OINT 30 GM TUBE EXT SCH (08:40)
[2016-07-29] MEDS ORDERED: THIAMINE HCL 100 MG/ML 2 ML VIAL IM STA (09:52)
[2016-07-29] MEDS: CHLORDIAZEPOXIDE 25 MG CAP PO ONE (10:00)
--- NOTE | 2016-07-29 11:32 | DIAGNOSTIC IMAGING REPORT ---
HEAD CT NONCONTRAST CT DOSE: 1235.91 mGycm HISTORY: MENTAL STATUS CHANGES TECHNIQUE: Multiaxial CT images of the head were performed without the use of intravenous contrast. Automated exposure control was utilized for this study. Comparison: Head CT 11/10/2014. Findings: The paranasal sinuses and mastoid air cells are clear. The calvarium and skull base are intact. There is no mass, hematoma, midline shift, acute infarct. White matter hypodensity is nonspecific but suggestive of microvascular ischemic change. The ventricles and sulci demonstrate mild age-related involutional changes. Motion artifact. Impression: Motion artifact. No definite acute intracranial abnormality. Electronically signed by: Patricio Burger M.D. 07/29/2016 11:31 AM Dictated Date/Time: 07/29/2016 11:27 AM
[2016-07-29] MEDS ORDERED: CHLORDIAZEPOXIDE 25 MG CAP ONE (12:13)
[2016-07-29] MEDS ORDERED: CHLORDIAZEPOXIDE 25 MG CAP PO ONE (12:30)
--- NOTE | 2016-07-29 14:36 | Neurology Consultation ---
Neurology Consultation Date of Consultation: Jul 29, 2016. Attending Physician: Benja López M.D. Primary Care Physician: Benja López M.D. Reason for Consultation: change MS History of Present Illness Source: patient Roberth is a 61 year old male with a H cellulitis L foot , bipolar, EtOH abuse , lung mass, HTN antibiotics for the cellulitis and states that his last evaluation in the hospital was 2-3 weeks ago. He notes sharp pains to the area and increased pain. He is currently being treated for lung cancer and had a productive cough. He had an abnormal CT scan prior to arrival today so he was referred here by his oncologist. 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 After surgery he became restless and hallucinating he was given ativan and valium and haldol. Currently he is confused and reaching in the air, mumbling his words. There is a 1:1 in the room that reports she saw him prior to the surgery and he was not confused or restless. Past Medical/Surgical History Medical Problems: (1) Acute bronchitis Status: Acute (2) Anemia Status: Acute (3) Cellulitis of left lower leg Status: Acute (4) Failure of outpatient treatment Status: Acute (5) Hypertension Status: Acute (6) Hyponatremia Status: Acute (7) Hypotension Status: Acute (8) Left leg cellulitis Status: Acute (9) Left upper quadrant pain Status: Acute (10) Mass of upper lobe of left lung Status: Acute (11) Shortness of breath Status: Acute (12) Thrush Status: Acute (13) Wound infection Status: Acute Social History Smoking Status: Current every day smoker Drug Use: none Marital Status: Housing Status: lives alone Occupation Status: retired Allergies Coded Allergies: No Known Allergies (Unverified , 07/22/16) Current Inpatient Medications Current Inpatient Medications Medications (Trade) Dose Ordered Sig/Rinku Route Start Time Stop Time Status Last Admin Dose Admin Heparin Sodium (Porcine) (Heparin Sq 5000 Unit/0.5ml) 5,000 unit Q12H SQ 07/22/16 19:30 08/21/16 19:29 07/29/16 08:38 5,000 UNIT Aspirin (Ecotrin Tab) 81 mg DAILY PO 07/23/16 09:00 08/22/16 08:59 07/29/16 08:40 81 MG Benztropine Mesylate (Cogentin Tab) 1 mg BID PO 07/22/16 21:00 08/21/16 20:59 07/29/16 08:40 1 MG Bupropion HCl (Wellbutrin-Sr Tab) 100 mg QAM PO 07/23/16 09:00 08/22/16 08:59 07/29/16 08:40 100 MG Divalproex Sodium (Depakote Delay Rel Tab) 500 mg BID PO 07/22/16 21:00 08/21/16 20:59 07/29/16 08:40 500 MG Docusate Sodium (coLACE CAP) 100 mg QAM PO 07/23/16 09:00 08/22/16 08:59 07/29/16 08:40 100 MG Folic Acid (Folvite Tab) 1 mg DAILY PO 07/23/16 09:00 08/22/16 08:59 07/29/16 08:40 1 MG Haloperidol (Haldol Tab) 5 mg BID PO 07/22/16 21:00 08/21/16 20:59 07/29/16 08:40 5 MG Memantine (Namenda Tab) 5 mg QAM PO 07/23/16 09:00 08/22/16 08:59 07/29/16 08:40 5 MG Metoprolol Succinate (Toprol Xl Tab) 25 mg QAM PO 07/23/16 09:00 08/22/16 08:59 07/29/16 08:40 25 MG Finasteride (Proscar Tab) 5 mg QAM PO 07/23/16 09:00 08/22/16 08:59 07/29/16 08:40 5 MG Pneumococcal Polysaccharide Vaccine 1 ea 1 ea PRN PRN N/A 07/22/16 18:00 08/21/16 17:59 Ondansetron HCl 8 mg/Dextrose 54 ml @ 200 mls/hr Q4H PRN IV 07/22/16 18:15 08/21/16 18:14 Ceftriaxone Sodium/Dextrose (Rocephin Inj/D5 50ml) 70 ml @ 100 mls/hr Q24H IV 07/23/16 22:00 08/02/16 21:59 07/28/16 22:25 100 MLS/HR Trimethoprim/ Sulfamethoxazole (Septra Ds 800/ 160MG Tab) 1 tab Q12 PO 07/23/16 09:00 08/02/16 08:59 07/29/16 08:40 1 TAB Menthol (Nice Erica) 1 erica PRN PRN PO 07/23/16 03:30 08/22/16 03:29 Acetaminophen/ Hydrocodone Bitart ([place] 5/325 Tab) 2 tab Q4H PRN PO 07/23/16 22:15 08/06/16 22:14 07/28/16 00:17 2 TAB Collagenase (Santyl Oint) 1 appln DAILY EXT 07/23/16 23:45 08/22/16 23:44 07/29/16 08:40 1 APPLN Levalbuterol (Xopenex 1.25MG/ 3ML Neb) 1.25 mg Q6R INH 07/28/16 15:00 08/27/16 14:59 07/29/16 08:14 1.25 MG Chlordiazepoxide (Librium Cap) 10 mg Q6H PO 07/29/16 16:00 08/28/16 15:59 Thiamine HCl (Vitamin B-1 Inj) 100 mg QAM IM 07/30/16 09:00 08/01/16 08:59 Physical Exam Vital Signs (Past 24 Hrs): Date Time Temp Pulse Resp B/P Pulse Ox O2 Delivery O2 Flow Rate FiO2 07/29/16 12:07 36.1 105 16 127/67 93 2.0 07/29/16 08:16 114 24 92 Nasal Cannula 2.0 07/29/16 07:44 Nasal Cannula 2.0 07/29/16 07:04 37.2 119 26 145/76 93 Nasal Cannula 2.0 07/29/16 03:11 37.1 115 18 113/59 92 Nasal Cannula 2.0 07/29/16 02:38 67 24 92 Nasal Cannula 2.0 07/29/16 00:30 96 Nasal Cannula 2.0 07/28/16 23:50 37.4 117 22 128/73 93 Nasal Cannula 2.0 07/28/16 19:50 98 18 93 Nasal Cannula 2.0 07/28/16 16:00 92 Room Air 07/28/16 15:11 36.8 109 18 110/55 92 Room Air 07/28/16 14:55 111 12 93 Nasal Cannula 2.0 Physical Exam: Constitutional: appearance ill appearing, no nuchal rigidity Ears, Nose, Mouth and Throat: mucous membranes moist, no injection and skin normal, eyes normal, deformity of left ear Cardiovascular: normal S-1 and S-2 and regular rate and rhythm Respiratory: bilateral rales, rhonchi Musculoskeletal: distant distal pulses Skin: no stigmata of neurocutaneous disease noted and normal and intact Eyes: does not cooperate with EOMI, pupils are 4+ dilated and reactive to light bilaterally, good vascular pulsation NEUROLOGIC EXAMINATION: Mental status: Alert and interactive oriented to person does not know where he is but he states he lives in [place] Cranial Nerves face is symmetric Reflexes: Deep tendon reflexes were symmetrical and graded 2/5. Plantar responses were neutral Sensory: unable to assess Coordination: unable to assess Gait/Stance: lying in bed moving all extremities spontaneously Strength: grasps hand and pulls bilaterally does not follow commands with LE, some muscle atrophy in LE Laboratory Results Past 24 Hours: 07/29/16 05:58 Red Blood Count 3.11, Mean Corpuscular Volume 82.0, Mean Corpuscular Hemoglobin 27.7, Mean Corpuscular Hemoglobin Concent 33.7, Mean Platelet Volume 8.3, Neutrophils (%) (Auto) 80.9, Lymphocytes (%) (Auto) 6.3, Monocytes (%) (Auto) 11.9, Eosinophils (%) (Auto) 0.3, Basophils (%) (Auto) 0.2, Neutrophils # (Auto ) 9.16, Lymphocytes # (Auto) 0.71, Monocytes # (Auto) 1.34, Eosinophils # (Auto ) 0.03, Basophils # (Auto) 0.02 07/29/16 05:58 Test 07/29/16 05:58 White Blood Count 11.30 K/uL (4.8-10.8) Red Blood Count 3.11 M/uL (4.7-6.1) Hemoglobin 8.6 g/dL (14.0-18.0) Hematocrit 25.5 % (42-52) Mean Corpuscular Volume 82.0 fL (80-100) Mean Corpuscular Hemoglobin 27.7 pg (25-34) Mean Corpuscular Hemoglobin Concent 33.7 g/dl (32-36) Platelet Count 344 K/uL (130-400) Mean Platelet Volume 8.3 fL (7.4-10.4) Neutrophils (%) (Auto) 80.9 % Lymphocytes (%) (Auto) 6.3 % Monocytes (%) (Auto) 11.9 % Eosinophils (%) (Auto) 0.3 % Basophils (%) (Auto) 0.2 % Neutrophils # (Auto) 9.16 K/uL (1.4-6.5) Lymphocytes # (Auto) 0.71 K/uL (1.2-3.4) Monocytes # (Auto) 1.34 K/uL (0.11-0.59) Eosinophils # (Auto) 0.03 K/uL (0-0.5) Basophils # (Auto) 0.02 K/uL (0-0.2) RDW Standard Deviation 51.4 fL (36.4-46.3) RDW Coefficient of Variation 17.0 % (11.5-14.5) Immature Granulocyte % (Auto) 0.4 % Immature Granulocyte # (Auto) 0.04 K/uL (0.00-0.02) Giant Platelets 1+ Hypochromasia PRESENT Anisocytosis PRESENT Anion Gap 11.0 mmol/L (3-11) Est Creatinine Clear Calc Drug Dose 117.2 ml/min Estimated GFR () 117.9 Estimated GFR (Non- 101.7 BUN/Creatinine Ratio 18.0 (10-20) Calcium Level 9.1 mg/dl (8.5-10.1) Total Bilirubin 0.3 mg/dl (0.2-1) Aspartate Amino Transf (AST/SGOT) 18 U/L (15-37) Alanine Aminotransferase (ALT/SGPT) 16 U/L (12-78) Alkaline Phosphatase 84 U/L (45-117) Total Protein 7.8 gm/dl (6.4-8.2) Albumin 2.5 gm/dl (3.4-5.0) Globulin 5.3 gm/dl (2.5-4.0) Albumin/Globulin Ratio 0.5 (0.9-2) Imaging CT head- Findings: The paranasal sinuses and mastoid air cells are clear. The calvarium and skull base are intact. There is no mass, hematoma, midline shift, acute infarct. White matter hypodensity is nonspecific but suggestive of microvascular ischemic change. The ventricles and sulci demonstrate mild age- related involutional changes. Motion artifact. doppler- No DVT within the lower extremity. Venous mapping left saphenous vein as described CXR= : Interval development of bilateral pulmonary airspace opacities. Diagnostic considerations include pulmonary edema versus a bilateral pneumonia. Clinical and radiographic follow-up is recommended. Impression 61 year old male s/p vascular surgery and MS change Plan 1. recheck CXR for further consolidation 2. check UA for possible untreated UTI on current antibiotics 3. correct lytes 4. would try Seroquel .25 mg for agitation 5. family input for EtOH history if recent or distant- treating with Librium and given thiamine 6. appears to be delirium superimposed on a baseline that is being treated with dementia medications and psychiatric medications at baseline 7. also had an event of hypoxia partially due to CHF and history of CA 8. would try to limit benzos due to the sedation effect 9. may need to image brain with MRI with and without if delirium does not improve 10. will continue to follow as needed I have seen and discussed above patient with Dr Sandra Lew, neurology Pt seen and examined. Baseline unknown, at baseline is on multiple psychotropics and namenda which speaks of underlying cognitive impairment. Pt post stent for PVD had change in MS. CT reviewed. Pt was hypoxic, in CHF with mult mild metabolic abnl. Pt currently sedated. Fluctuating level of consciousness (delirium). Pupils dilated, reactive, no fixed gaze preference, moves all fours symmetrically. Pt is prone to delirium due to assumed baseline dementia, aggravated by hospitilization, hypoxia, question of alcohol use/ withdrawal. Agree with monitoring, optimizine metabolic abnl, oxygenation and minimizing sedation meds, using thiamine. Doubt a new central event. If he is failing to improve would consider MRI brain with and without contrast given his hx and treatment for lung carcinoma. KEYANNA Lew MD
--- NOTE | 2016-07-29 17:02 | ECHOCARDIOGRAM REPORT ---
*NOTICE TO RECEIVING REPUBLICAN AGENCY This information is strictly Confidential and protected under [place] law. [place] law prohibits you from making any further disclosure of this information unless further disclosure is expressly permitted by the written consent of the person to whom it pertains or is authorized by law. A general authorization for the release of medical or other information is not sufficient for this purpose. Hospital accepts no responsibility if the information is made available to any other person, INCLUDING THE PATIENT. Interpretation Summary * Name: JAMARCUS PAYTON JR Study Date: 07/29/2016 10:26 AM BP: 113/59 mmHg * Patient Location: .INTERPRETIVE NATURALIST\S\W363\S\1 HR: 115 * : 1955 (M/d/yyyy) Gender: Male Height: 68 in * Age: 61 yrs Ethnicity: CA Weight: 185 lb * Ordering Physician: Benja López * Performed By: Yudith Mcclain * * Reason For Study: CHF * BSA: 2.0 m2 * Hyperdynamic left ventricular systolic function. * Normal chamber dimensions. * No significant valvular abnormalities noted. * The study was technically difficult. * -- Conclusions -- * Aortic valve sclerosis moderate, without significant aortic valvular stenosis. Procedure Details * A complete two-dimensional transthoracic echocardiogram was performed (2D, M-mode, Doppler and color flow Doppler). * The study was technically limited. * The study was technically difficult. * Limited views were obtained. * There were technical limitations due to patient'sinability to cooperate Left Ventricle * The left ventricle is normal in size. * There is normal left ventricular wall thickness. * Ejection Fraction = >70 %. * The left ventricle is hyperdynamic. * No regional wall motion abnormalities noted. Right Ventricle * The right ventricle is normal in size and function. Atria * The left atrial size is normal. * Right atrium not well visualized. * Right atrium is probably of normal dimension. Mitral Valve * The mitral valve is grossly normal. * Significant mitral regurgitation is absent. Tricuspid Valve * The tricuspid valve is not well visualized. * Significant tricuspid regurgitation is absent. Aortic Valve * The aortic valve is trileaflet. * The aortic valve opens well. * Aortic valve sclerosis moderate, without significant aortic valvular stenosis. * No aortic regurgitation is present. Pulmonic Valve * The pulmonic valve is not well visualized. * The pulmonary valve is inadequately visualized, but the Doppler data is adequate for interpretation. * There is no pulmonic valvular stenosis. * There is no significant pulmonary regurgitation. Great Vessels * The aortic root is normal size. Pericardium/Pleural * There is no pericardial effusion. Great Vessels * Normal inferior vena cava diameter and respiratory variation suggests normal central venous pressure. MMode 2D Measurements and Calculations IVSd 0.84 cm IVSs 1.8 cm LVIDd 4.7 cm LVIDs 2.1 cm LVPWd 1.0 cm LVPWs 1.9 cm IVS/LVPW 0.82 FS 55.0 % EDV(Teich) 102.0 ml ESV(Teich) 14.6 ml EF(Teich) 85.7 % EDV(cubed) 103.3 ml ESV(cubed) 9.4 ml EF(cubed) 90.9 % % IVS thick 109.3 % % LVPW thick 81.3 % LV mass(C)d 148.8 grams LV mass(C)dI 75.3 grams/m\S\2 LV mass(C)s 148.5 grams LV mass(C)sI 75.1 grams/m\S\2 SV(Teich) 87.4 ml SI(Teich) 44.2 ml/m\S\2 SV(cubed) 93.9 ml SI(cubed) 47.5 ml/m\S\2 Ao root diam 3.4 cm Ao root area 9.2 cm\S\2 ACS 1.6 cm LA dimension 3.3 cm asc Aorta Diam 3.3 cm LA/Ao 0.95 LVAd ap4 29.9 cm\S\2 LVLd ap4 7.3 cm EDV(MOD-sp4) 101.5 ml EDV(sp4-el) 104.1 ml LVAs ap4 13.6 cm\S\2 LVLs ap4 6.0 cm ESV(MOD-sp4) 27.9 ml ESV(sp4-el) 26.0 ml EF(MOD-sp4) 72.5 % EF(sp4-el) 75.0 % LVAd ap2 17.8 cm\S\2 LVLd ap2 6.9 cm EDV(MOD-sp2) 36.7 ml EDV(sp2-el) 38.6 ml LVAs ap2 8.2 cm\S\2 LVLs ap2 5.3 cm ESV(MOD-sp2) 10.5 ml ESV(sp2-el) 10.9 ml EF(MOD-sp2) 71.3 % EF(sp2-el) 71.8 % LVLd %diff -5.08 % EDV(MOD-bp) 62.5 ml LVLs %diff -15.17 % ESV(MOD-bp) 18.0 ml EF(MOD-bp) 71.1 % SV(MOD-sp4) 73.6 ml SI(MOD-sp4) 37.2 ml/m\S\2 SV(MOD-sp2) 26.2 ml SI(MOD-sp2) 13.2 ml/m\S\2 SV(MOD-bp) 44.4 ml SI(MOD-bp) 22.5 ml/m\S\2 SV(sp4-el) 78.1 ml SI(sp4-el) 39.5 ml/m\S\2 SV(sp2-el) 27.7 ml SI(sp2-el) 14.0 ml/m\S\2 Doppler Measurements and Calculations MV E max alexa 110.7 cm/sec MV A max alexa 91.7 cm/sec MV E/A 1.2 MV dec time 0.14 sec Ao V2 max 196.6 cm/sec Ao max PG 15.5 mmHg Ao max PG (full) 9.4 mmHg LV V1 max PG 6.0 mmHg LV V1 max 122.8 cm/sec PA V2 max 83.0 cm/sec PA max PG 2.8 mmHg
[2016-07-29] MEDS: CHLORDIAZEPOXIDE 10 MG CAP PO SCH ×2 (17:03→22:03)
[2016-07-29] MEDS: CEFTRIAXONE SOD INJ 2,000 MG in DEXTROSE 5% 50ML 50 ML IV SCH (23:01)
[2016-07-30] VITALS (8 sets, daily range): BP systolic 105–115; BP diastolic 59–74; PULSE 76–115; TEMP 36.6–37; O2SAT 89–97
--- NOTE | 2016-07-30 00:32 | PROGRESS NOTE ---
DATE: 07/29/2016 A 61-year-old male admitted with cellulitis of his left foot, the left lower leg. He has severe peripheral arterial disease and he has an ulcer on his left heel. He has multiple medical problems, including peripheral neuropathy, peripheral arterial disease, bipolar disorder, long history of smoking, history of alcohol excess. The patient underwent an angioplasty and stenting of stenosis of his left popliteal artery, done by Dr. Ac. Postoperatively, patient had urinary retention. A Swartz catheter was placed. He also has had mental status changes. He was having delirious behavior; very agitated and restless. Talking to people in the room, who were not there and seeing things in the room. He has required one-on-one care. Last night, he was quite agitated. He required multiple medications. Unfortunately, lorazepam was not effective. Subsequently, he was given one dose of Haldol IM. We were able to get a CT scan of the head done, without contrast. There was some motion artifact, but there was no evidence of any acute problem that could be identified. He had multiple laboratory tests done. His sodium was decreased, but this is really nothing new for him. No other abnormalities were noted to account for his delirious behaviour. I gathered from him, initially, that he has not been drinking alcohol recently. PHYSICAL EXAMINATION: GENERAL: Well developed, in no distress. When I saw him this morning, he was quite restless and agitated. This afternoon, his condition has improved. He was still requiring one-on-one care, but definitely, he was not as agitated as he was VITAL SIGNS: Blood pressure 145/76, pulse 119, respirations 26, temperature 37.2, oxygen saturation 93% on 2 liter oxygen by nasal cannula. This afternoon, he remains afebrile. His blood pressure was 129/72 with a respiration of 22 and pulse of 109. SKIN: Warm and dry. No rash. HEENT: No mucosal abnormality. NECK: No adenopathy. No JVD. HEART: Regular heart sounds. LUNGS: Bilateral rhonchi. ABDOMEN: Soft. BACK: No spinal tenderness. EXTREMITIES: No edema. Surgical dressing, left heel. LABORATORY TESTS: WBC count 11,300; hemoglobin 8.6, hematocrit 25.5, platelet count 344,000. Sodium 128, potassium 3.6, chloride 93, CO2 24, BUN 12, creatinine 0.69, glucose 118, calcium 9.1, total bilirubin 0.3, AST 18, ALT 16, alkaline phosphatase 84, total protein 7.8, albumin 2.5. As noted, his CT scan of the head, without contrast, showed motion artifact but no definite acute intracranial abnormality. ASSESSMENT: 1. Cellulitis, left lower leg and foot. Resolved. 2. Peripheral arterial disease. 3. Ulcer, left heel. 4. Delirious behavior. 5. Peripheral neuropathy. 6. Episode of congestive heart failure. Resolved. 7. Urinary retention. PLAN: 1. We will continue the same medication. He was also placed on Librium. 2. Continue one-on-one care. 3. Neurology consultation was requested. 4. We will monitor his neurological status. Decide on any further evaluation.
[2016-07-30] MEDS: CHLORDIAZEPOXIDE 10 MG CAP PO SCH (04:10)
[2016-07-30 06:10] LABS: BASO % 0.1 %; BASO ABS # 0.01 K/uL (0-0.2); COMPLETE YES; EOS % 0.2 %; HEMATOCRIT 26.9 % (42-52); IG% 0.3 %; LYMPH % 4.8 %; LYMPH ABS # 0.51 K/uL (1.2-3.4); MEAN CELL VOLUME 81.3 fL (80-100); MEAN CORPUSCULAR HEMOGLOBIN 27.5 pg (25-34); MEAN CORPUSCULAR HGB CONC 33.8 g/dl (32-36); MEAN PLATELET VOLUME 8.5 fL (7.4-10.4); MONO % 10.6 %; PLATELET COUNT 356 K/uL (130-400); RED BLOOD COUNT 3.31 M/uL (4.7-6.1); WHITE BLOOD COUNT 10.64 K/uL (4.8-10.8)
[2016-07-30 06:47] LABS: BUN/CREATININE RATIO 18.8 (10-20); CALCIUM 9.1 mg/dl (8.5-10.1); CREATININE 0.5 mg/dl (0.60-1.40); POTASSIUM 3.8 mmol/L (3.5-5.1)
[2016-07-30 06:50] LABS: ALB/GLOB RATIO 0.5 (0.9-2)
[2016-07-30] MEDS: LEVALBUTEROL 1.25MG/3ML NEB INH SCH ×3 (07:57→20:40)
--- NOTE | 2016-07-30 09:35 | Progress Note ---
Progress Note Date of Service: Jul 30, 2016. Subjective 61 yo m with multiple medical problems, s/p LLE popliteal [employer]OR/stent d/t nonhealing wound L heel, seen in f/u today. Pt somewhat confused and lethargic , although less than previously. Denies any new complaints. Problem List Medical Problems: (1) Acute bronchitis Status: Acute (2) Anemia Status: Acute (3) Cellulitis of left lower leg Status: Acute (4) Failure of outpatient treatment Status: Acute (5) Hypertension Status: Acute (6) Hyponatremia Status: Acute (7) Hypotension Status: Acute (8) Left leg cellulitis Status: Acute (9) Left upper quadrant pain Status: Acute (10) Mass of upper lobe of left lung Status: Acute (11) Shortness of breath Status: Acute (12) Thrush Status: Acute (13) Wound infection Status: Acute Objective Vital Signs Vital Signs Past 12 Hours Date Time Temp Pulse Resp B/P Pulse Ox O2 Delivery O2 Flow Rate FiO2 07/30/16 08:10 89 Nasal Cannula 2.0 07/30/16 08:04 115 109/59 89 Room Air 07/30/16 07:57 114 97 Room Air 07/30/16 07:50 Room Air 07/29/16 23:45 105 20 94 Room Air 07/29/16 23:30 Nasal Cannula 2.0 07/29/16 23:13 36.4 99 18 102/63 94 Room Air Exam CONST: somnolent, mildly confused, oriented x1, NAD, pale, resting comfortably in bed EXT: LLE heel wound edema and erythema resolved. Organizing into dry eschar. Foot cool, but + cap refill. + dopppler PT. Intake & Output 8-Hour Column 07/29/16 07/30/16 07/30/16 16:00 00:00 08:00 Intake Total 400 ml 200 ml Output Total 350 ml 250 ml 250 ml Balance 50 ml -250 ml -50 ml 24-Hour Column 07/30/16 08:00 Intake Total 600 ml Output Total 850 ml Balance -250 ml Laboratory and Microbiology Results Past 24 Hours Test 07/30/16 05:53 Range/Units White Blood Count 10.64 4.8-10.8 K/uL Red Blood Count 3.31 4.7-6.1 M/uL Hemoglobin 9.1 14.0-18.0 g/dL Hematocrit 26.9 42-52 % Mean Corpuscular Volume 81.3 80-100 fL Mean Corpuscular Hemoglobin 27.5 25-34 pg Mean Corpuscular Hemoglobin Concent 33.8 32-36 g/dl Platelet Count 356 130-400 K/uL Mean Platelet Volume 8.5 7.4-10.4 fL Neutrophils (%) (Auto) 84.0 % Lymphocytes (%) (Auto) 4.8 % Monocytes (%) (Auto) 10.6 % Eosinophils (%) (Auto) 0.2 % Basophils (%) (Auto) 0.1 % Neutrophils # (Auto) 8.94 1.4-6.5 K/uL Lymphocytes # (Auto) 0.51 1.2-3.4 K/uL Monocytes # (Auto) 1.13 0.11-0.59 K/uL Eosinophils # (Auto) 0.02 0-0.5 K/uL Basophils # (Auto) 0.01 0-0.2 K/uL RDW Standard Deviation 50.8 36.4-46.3 fL RDW Coefficient of Variation 16.9 11.5-14.5 % Immature Granulocyte % (Auto) 0.3 % Immature Granulocyte # (Auto) 0.03 0.00-0.02 K/uL Sodium Level 133 136-145 mmol/L Potassium Level 3.8 3.5-5.1 mmol/L Chloride Level 97 98-107 mmol/L Carbon Dioxide Level 24 21-32 mmol/L Anion Gap 12.0 3-11 mmol/L Blood Urea Nitrogen 9 7-18 mg/dl Creatinine 0.50 0.60-1.40 mg/dl Est Creatinine Clear Calc Drug Dose 161.7 ml/min Estimated GFR () 134.6 Estimated GFR (Non- 116.1 BUN/Creatinine Ratio 18.8 10-20 Random Glucose 109 70-99 mg/dl Calcium Level 9.1 8.5-10.1 mg/dl Total Bilirubin 0.2 0.2-1 mg/dl Aspartate Amino Transf (AST/SGOT) 37 15-37 U/L Alanine Aminotransferase (ALT/SGPT) 32 12-78 U/L Alkaline Phosphatase 86 45-117 U/L Total Protein 7.5 6.4-8.2 gm/dl Albumin 2.4 3.4-5.0 gm/dl Globulin 5.1 2.5-4.0 gm/dl Albumin/Globulin Ratio 0.5 0.9-2 Microbiology Results 07/30/16 Urine Culture, Received Pending ASSESSMENT and PLAN: Severe PAD, LLE heel wound s/p LLE popliteal [employer]/stent Pt wound improving. Will continue to monitor. Pt not wearing waffle boots in bed presently. Discussed with RN that he MUST wear them when in bed to offload his heel.
[2016-07-30] MEDS: COLLAGENASE OINT 30 GM TUBE EXT SCH (10:32)
[2016-07-30] MEDS: BENZTROPINE MESYLATE 1 MG TAB PO SCH ×2 (10:33→22:17)
[2016-07-30] MEDS: SULFAMETHOXAZOLE/TRIMETHOPRIM DS 800/160MG TAB PO SCH ×2 (10:34→22:16)
[2016-07-30] MEDS: MEMANTINE 5 MG TAB PO SCH (10:34)
[2016-07-30] MEDS: FINASTERIDE 5 MG TAB PO SCH (10:35)
[2016-07-30] MEDS: HALOPERIDOL 5 MG TAB PO SCH ×2 (10:35→22:17)
[2016-07-30] MEDS: BuPROPion SR 100 MG TABCR PO SCH (10:36)
[2016-07-30] MEDS: METOPROLOL SUCC 25MG EXT REL TAB PO SCH (10:36)
[2016-07-30] MEDS: ASPIRIN 81 MG ECTAB PO SCH (10:36)
[2016-07-30] MEDS: DIVALPROEX SODIUM 500 MG DELAY RELEASE TAB PO SCH ×2 (10:36→22:16)
[2016-07-30] MEDS: DOCUSATE SODIUM 100 MG CAP PO SCH (10:36)
[2016-07-30] MEDS: HEPARIN SOD 5000 UNIT/0.5 ML CARP SQ SCH ×2 (10:37→22:15)
[2016-07-30] MEDS: THIAMINE HCL 100 MG/ML 2 ML VIAL IM SCH (10:41)
--- NOTE | 2016-07-30 13:31 | Neurology Progress Notes ---
Neurology Progress Note Date of Service Jul 30, 2016. Bertha Lepe is a 61 year old male with a PMH cellulitis L foot , bipolar, EtOH abuse , lung mass, HTN antibiotics for the cellulitis and states that his last evaluation in the hospital was 2-3 weeks ago. He notes sharp pains to the area and increased pain. He is currently being treated for lung cancer and had a productive cough. He had an abnormal CT scan prior to arrival today so he was referred here by his oncologist. 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 After surgery he became restless and hallucinating he was given ativan and valium and haldol. Currently he is confused and reaching in the air, mumbling his words. There is a 1:1 in the room that reports she saw him prior to the surgery and he was not confused or restless. Today he is sleeping soundly. 1:1 states he was up using the toilet with minimal assistance. He was restless all night into the morning and is no resting. Objective Date Time Temp Pulse Resp B/P Pulse Ox O2 Delivery O2 Flow Rate FiO2 07/30/16 11:52 36.8 07/30/16 08:10 89 Nasal Cannula 2.0 07/30/16 08:04 115 109/59 89 Room Air 07/30/16 07:57 114 97 Room Air 07/30/16 07:50 Room Air 07/29/16 23:45 105 20 94 Room Air 07/29/16 23:30 Nasal Cannula 2.0 07/29/16 23:13 36.4 99 18 102/63 94 Room Air 07/29/16 16:00 Nasal Cannula 2.0 07/29/16 15:20 37.1 109 22 129/72 91 Nasal Cannula 2.0 Last 24 Hours Test 07/30/16 05:53 White Blood Count 10.64 K/uL Red Blood Count 3.31 M/uL Hemoglobin 9.1 g/dL Hematocrit 26.9 % Mean Corpuscular Volume 81.3 fL Mean Corpuscular Hemoglobin 27.5 pg Mean Corpuscular Hemoglobin Concent 33.8 g/dl Platelet Count 356 K/uL Mean Platelet Volume 8.5 fL Neutrophils (%) (Auto) 84.0 % Lymphocytes (%) (Auto) 4.8 % Monocytes (%) (Auto) 10.6 % Eosinophils (%) (Auto) 0.2 % Basophils (%) (Auto) 0.1 % Neutrophils # (Auto) 8.94 K/uL Lymphocytes # (Auto) 0.51 K/uL Monocytes # (Auto) 1.13 K/uL Eosinophils # (Auto) 0.02 K/uL Basophils # (Auto) 0.01 K/uL RDW Standard Deviation 50.8 fL RDW Coefficient of Variation 16.9 % Immature Granulocyte % (Auto) 0.3 % Immature Granulocyte # (Auto) 0.03 K/uL Sodium Level 133 mmol/L Potassium Level 3.8 mmol/L Chloride Level 97 mmol/L Carbon Dioxide Level 24 mmol/L Anion Gap 12.0 mmol/L Blood Urea Nitrogen 9 mg/dl Creatinine 0.50 mg/dl Est Creatinine Clear Calc Drug Dose 161.7 ml/min Estimated GFR () 134.6 Estimated GFR (Non- 116.1 BUN/Creatinine Ratio 18.8 Random Glucose 109 mg/dl Calcium Level 9.1 mg/dl Total Bilirubin 0.2 mg/dl Aspartate Amino Transf (AST/SGOT) 37 U/L Alanine Aminotransferase (ALT/SGPT) 32 U/L Alkaline Phosphatase 86 U/L Total Protein 7.5 gm/dl Albumin 2.4 gm/dl Globulin 5.1 gm/dl Albumin/Globulin Ratio 0.5 Imaging: TTE- * Aortic valve sclerosis moderate, without significant aortic valvular stenosis. repeat CT head -No definite acute intracranial abnormality. Exam: Physical Exam: Constitutional: appearance nourished Ears, Nose, Mouth and Throat: mucous membranes moist, no injection and skin normal, eyes normal Cardiovascular: normal S-1 and S-2 and regular rate and rhythm Respiratory: harsh rhonchi breath sounds Musculoskeletal: decreased distal pulses Skin:left heel wound wrapped with waffle boots bilaterally Eyes: pupils dilate bilaterally reactive NEUROLOGIC EXAMINATION: Mental status: Alert to name but rolls over to sleep Cranial Nerves facial symmetry Reflexes: no pathologic reflexes Gait/Stance: lying in bed on side Motor: does not cooperate with exam Strength: moves all ext spontaneously and with stimulation Current Inpatient Medications Medications (Trade) Dose Ordered Sig/Rinku Route Start Time Stop Time Status Last Admin Dose Admin Heparin Sodium (Porcine) (Heparin Sq 5000 Unit/0.5ml) 5,000 unit Q12H SQ 07/22/16 19:30 08/21/16 19:29 07/30/16 10:37 5,000 UNIT Aspirin (Ecotrin Tab) 81 mg DAILY PO 07/23/16 09:00 08/22/16 08:59 07/30/16 10:36 81 MG Benztropine Mesylate (Cogentin Tab) 1 mg BID PO 07/22/16 21:00 08/21/16 20:59 07/30/16 10:33 1 MG Bupropion HCl (Wellbutrin-Sr Tab) 100 mg QAM PO 07/23/16 09:00 08/22/16 08:59 07/30/16 10:36 100 MG Divalproex Sodium (Depakote Delay Rel Tab) 500 mg BID PO 07/22/16 21:00 08/21/16 20:59 07/30/16 10:36 500 MG Docusate Sodium (coLACE CAP) 100 mg QAM PO 07/23/16 09:00 08/22/16 08:59 07/30/16 10:36 100 MG Folic Acid (Folvite Tab) 1 mg DAILY PO 07/23/16 09:00 08/22/16 08:59 07/30/16 10:35 1 MG Haloperidol (Haldol Tab) 5 mg BID PO 07/22/16 21:00 08/21/16 20:59 07/30/16 10:35 5 MG Memantine (Namenda Tab) 5 mg QAM PO 07/23/16 09:00 08/22/16 08:59 07/30/16 10:34 5 MG Metoprolol Succinate (Toprol Xl Tab) 25 mg QAM PO 07/23/16 09:00 08/22/16 08:59 07/30/16 10:36 25 MG Finasteride (Proscar Tab) 5 mg QAM PO 07/23/16 09:00 08/22/16 08:59 07/30/16 10:35 5 MG Pneumococcal Polysaccharide Vaccine 1 ea 1 ea PRN PRN N/A 07/22/16 18:00 08/21/16 17:59 Ondansetron HCl 8 mg/Dextrose 54 ml @ 200 mls/hr Q4H PRN IV 07/22/16 18:15 08/21/16 18:14 Ceftriaxone Sodium/Dextrose (Rocephin Inj/D5 50ml) 70 ml @ 100 mls/hr Q24H IV 07/23/16 22:00 08/02/16 21:59 07/29/16 23:01 100 MLS/HR Trimethoprim/ Sulfamethoxazole (Septra Ds 800/ 160MG Tab) 1 tab Q12 PO 07/23/16 09:00 08/02/16 08:59 07/30/16 10:34 1 TAB Menthol (Nice Erica) 1 erica PRN PRN PO 07/23/16 03:30 08/22/16 03:29 Acetaminophen/ Hydrocodone Bitart ([place]hua 5/325 Tab) 2 tab Q4H PRN PO 07/23/16 22:15 08/06/16 22:14 07/28/16 00:17 2 TAB Collagenase (Santyl Oint) 1 appln DAILY EXT 07/23/16 23:45 08/22/16 23:44 07/30/16 10:32 1 APPLN Levalbuterol (Xopenex 1.25MG/ 3ML Neb) 1.25 mg Q6R INH 07/28/16 15:00 08/27/16 14:59 07/29/16 23:45 1.25 MG Thiamine HCl (Vitamin B-1 Inj) 100 mg QAM IM 07/30/16 09:00 08/01/16 08:59 07/30/16 10:41 100 MG Impression 61 year old male s/p vascular surgery and MS change Plan 1. recheck CXR for further consolidation 2. check UA for possible untreated UTI on current antibiotics 3. correct lytes 4. would try Seroquel .25 mg for agitation instead of Haldol an Ativan 5. family input for EtOH history if recent or distant- treating with Librium and given thiamine 6. appears to be delirium superimposed on a baseline that is being treated with dementia medications and psychiatric medications at baseline 7. also had an event of hypoxia partially due to CHF and history of CA 8. would try to limit benzos due to the sedation effect 9. may need to image brain with MRI with and without if delirium does not improve 10. will continue to follow as needed I have seen and discussed above patient with Dr Sandra Lew, neurology Pt seen and appears much improved. Sitting at bedside, eating snack. Oriented to person, place. No R L confusion. No facial asym. Mild dysarthria consistent with edetulous state. No asymmetric weakness. Imp resolving encephalopathy. Will follow with you, KEYANNA Lew MD
--- NOTE | 2016-07-30 13:43 | Clinical Documentation Query ---
QUERY 1 OF [address] FAUSTO HERNÁNDEZ, In your clinical opinion is this patient being managed for: (x ) Acute diastolic CHF ( ) Other explanation of clinical findings (Please Explain) ( ) Unable to determine (Please Define) ( ) Need to Discuss ( ) Not Agree The medical record reflects the following clinical findings, treatment, and risk factors. Clinical Indicators: Progress notes indicate pt with CHF. ECHO performed 07/29 showed EF of >70% Treatment: IV lasix, ECHO, O2 support Risk Factors: age, PAD Remember to seek clarification of your patients' CHF specificity; Severity-adjusted DRGs require coding specificity. "Congestive" heart failure is a non-specific diagnosis. Documentation should specify "acute vs. chronic" and "systolic vs. diastolic." QUERY 2 OF 2 In your clinical opinion is this patient being managed for: ( ) Encephalopathy ( ) Other explanation of clinical findings (Please Explain) ( ) Unable to determine (Please Define) ( ) Need to Discuss (x ) Not Agree The medical record reflects the following clinical findings, treatment, and risk factors. Clinical Indicators: Nursing progress notes on 07/28 indicate pt developed a change in mental status, more confused, dyspneic, tachycardic, hallucinating. Na level 128, lower than recent baseline in the low 130's. Most recent progress note indicates pt with some improvement. Treatment: IV ativan, 1:1 observation, IM haldol, CT head, neurology consult, librium Risk Factors: prior use of alcohol, acute CHF, hypoxia Please clarify and document your clinical opinion in the progress notes and discharge summary. Terms such as "probable", "suspected", "likely", "questionable", "possible", or "still to be ruled out" are acceptable. IF IN AGREEMENT, YOU MUST DOCUMENT ABOVE DIAGNOSTIC STATEMENT IN DAILY PROGRESS NOTES AND DISCHARGE SUMMARY. This document is not part of the patient's record. Thank You, Payton Lindo, RN [phone]
[2016-07-30] MEDS: HYDROCODONE/ACETAMOPHEN 5/325MG TAB PO PRN (17:24)
--- NOTE | 2016-07-30 21:45 | PROGRESS NOTE ---
DATE: 07/30/2016 A 61-year-old male with multiple medical problems includin. Cellulitis of the left foot and left lower leg. 2. Ulcer of the left heel. 3. Peripheral arterial disease. 4. Status post stenting of a 100% occluded left popliteal artery. 5. Urinary retention. 6. Delirium. 7. Bipolar disorder. 8. Peripheral neuropathy. I saw the patient this morning and he was just settled down. He was restless through the night. He did not sleep well. Overall, his condition, otherwise, has not changed. Throughout the night last night and this morning, he was still confused, not knowing exactly where he is; not quite oriented. I saw him again this evening. The patient was sitting up in bed. He was eating a couple of jello with his medications in it. His condition has markedly improved. He was conversant. He was still not completely oriented, but he did not seem to be in any distress. Was not agitated. He denied any headache. No dizziness. No chest pain, no shortness of breath. No cough. No abdominal pain, no nausea, no vomiting. No problem with his bowel movements. He still has a Swartz catheter in place. PHYSICAL EXAMINATION: GENERAL: Well developed, in no distress. VITAL SIGNS: Blood pressure 115/74, pulse 107, respiration 20, temperature 36.6, oxygen saturation 96% on 2 liter oxygen by nasal cannula. SKIN: Warm and dry. No rash. HEENT: No mucosal abnormalities. NECK: No JVD, no adenopathy. HEART: Regular heart sounds. LUNGS: Scattered rhonchi. No wheezing. ABDOMEN: Soft, nontender. BACK: No spinal tenderness. EXTREMITIES: Peripheral arterial disease. His cellulitis has resolved. TODAY'S LABORATORY TESTS: WBC count 10,640; hemoglobin 9.1, hematocrit 26.9, platelet count 356,000. Sodium 133, potassium 3.8, chloride 97, CO2 24, BUN 9, creatinine 0.5, glucose 109, calcium 9.1. Total bilirubin 0.2, AST 37, ALT 32, alkaline phosphatase 86. Total protein 7.5, albumin 2.4. ASSESSMENT: 1. Cellulitis, left lower leg and left foot. 2. Peripheral arterial disease. 3. Ulcer of the left heel. 4. Urinary retention. 5. Delirium postoperatively. 6. Hyponatremia. Improved. PLAN: 1. Overall, his condition has improved remarkably since this morning. 2. We will continue close monitoring. 3. Continue the same medications. 4. We will resume therapies as soon as possible. 5. I am hoping that I will be able to convince him, given his present condition, that he is not ready to go home and he should go back to [facility] until his condition improves.
[2016-07-30] MEDS: CEFTRIAXONE SOD INJ 2,000 MG in DEXTROSE 5% 50ML 50 ML IV SCH (22:21)
[2016-07-31] VITALS (9 sets, daily range): BP systolic 108–138; BP diastolic 55–98; PULSE 72–112; TEMP 36.4–36.9; O2SAT 91–95
[2016-07-31] MEDS: HYDROCODONE/ACETAMOPHEN 5/325MG TAB PO PRN (00:03)
[2016-07-31] MEDS: LEVALBUTEROL 1.25MG/3ML NEB INH SCH ×4 (02:49→19:16)
[2016-07-31 06:39] LABS: BASO % 0.2 %; BASO ABS # 0.02 K/uL (0-0.2); EOS % 1.7 %; HEMATOCRIT 25.6 % (42-52); IG% 0.3 %; LYMPH ABS # 0.94 K/uL (1.2-3.4); MEAN CELL VOLUME 82.8 fL (80-100); MEAN CORPUSCULAR HEMOGLOBIN 28.2 pg (25-34); MEAN PLATELET VOLUME 8.4 fL (7.4-10.4); MONO % 10.1 %; NEUT % 78.7 %; PLATELET COUNT 363 K/uL (130-400); RED BLOOD COUNT 3.09 M/uL (4.7-6.1)
[2016-07-31 07:17] LABS: BUN/CREATININE RATIO 15.6 (10-20); CREATININE 0.5 mg/dl (0.60-1.40); POTASSIUM 4.1 mmol/L (3.5-5.1)
[2016-07-31 07:25] LABS: COMPLETE YES
[2016-07-31] MEDS: COLLAGENASE OINT 30 GM TUBE EXT SCH ×2 (07:36→18:25)
[2016-07-31] MEDS: BENZTROPINE MESYLATE 1 MG TAB PO SCH ×2 (07:44→21:59)
[2016-07-31] MEDS: HALOPERIDOL 5 MG TAB PO SCH ×2 (07:44→21:58)
[2016-07-31] MEDS: FINASTERIDE 5 MG TAB PO SCH (07:44)
[2016-07-31] MEDS: MEMANTINE 5 MG TAB PO SCH (07:45)
[2016-07-31] MEDS: DIVALPROEX SODIUM 500 MG DELAY RELEASE TAB PO SCH ×2 (07:45→21:58)
[2016-07-31] MEDS: SULFAMETHOXAZOLE/TRIMETHOPRIM DS 800/160MG TAB PO SCH ×2 (07:46→21:58)
[2016-07-31] MEDS: METOPROLOL SUCC 25MG EXT REL TAB PO SCH (07:46)
[2016-07-31] MEDS: ASPIRIN 81 MG ECTAB PO SCH (07:46)
[2016-07-31] MEDS: BuPROPion SR 100 MG TABCR PO SCH (07:46)
[2016-07-31] MEDS: DOCUSATE SODIUM 100 MG CAP PO SCH (07:46)
[2016-07-31] MEDS: HEPARIN SOD 5000 UNIT/0.5 ML CARP SQ SCH ×2 (07:51→19:41)
[2016-07-31] MEDS: THIAMINE HCL 100 MG/ML 2 ML VIAL IM SCH (07:52)
--- NOTE | 2016-07-31 09:36 | NEUROLOGY PROGRESS NOTE ---
DATE: 07/31/2016 DATE: 07/31/2016. SUBJECTIVE: I am seeing Mr. Luther in followup of an encephalopathy. Again today he appears much improved, a little distractable, although he only slept several hours overnight. OBJECTIVE: GENERAL: On exam, he is oriented to person, place, it called it 2017. He indicated that he is occasionally lightheaded, has not had any headaches. He is not able to tell me what this said lightheaded feeling feels like. VITAL SIGNS: 36.4, 95, 13, 110/80, 94%. NEUROLOGIC: Pupils are dilated but reactive. I had difficulty visualizing the optic nerves. Visual goldberg were full. No facial asymmetry. Speech is mildly dysarthric consistent with the edentulous state. Outstretched arms do not drift and lower extremity is symmetric. He does appear to have some distal atrophy likely consistent with peripheral neuropathy. IMPRESSION: Delirium, improving. If the patient is not back to his baseline given his history of lung cancer, would recommend that he have an MRI of the brain. I will continue to follow with you. AMELIA
--- NOTE | 2016-07-31 10:17 | Progress Note ---
Progress Note Date of Service: Jul 31, 2016. Subjective Lethargic today Problem List Medical Problems: (1) Acute bronchitis Status: Acute (2) Anemia Status: Acute (3) Cellulitis of left lower leg Status: Acute (4) Failure of outpatient treatment Status: Acute (5) Hypertension Status: Acute (6) Hyponatremia Status: Acute (7) Hypotension Status: Acute (8) Left leg cellulitis Status: Acute (9) Left upper quadrant pain Status: Acute (10) Mass of upper lobe of left lung Status: Acute (11) Shortness of breath Status: Acute (12) Thrush Status: Acute (13) Wound infection Status: Acute Objective Vital Signs Vital Signs Past 12 Hours Date Time Temp Pulse Resp B/P Pulse Ox O2 Delivery O2 Flow Rate FiO2 07/31/16 08:10 36.4 95 13 110/80 94 Room Air 07/31/16 08:09 20 94 Room Air 07/31/16 07:45 Room Air 07/31/16 02:49 103 20 94 Room Air 07/30/16 23:45 91 Nasal Cannula 2.0 07/30/16 22:53 37.0 102 20 105/66 91 Nasal Cannula 2.0 Exam Dressing changed by nurse. No changes according to her Good left PT to doppler. Intake & Output 8-Hour Column 07/30/16 07/31/16 07/31/16 16:00 00:00 08:00 Intake Total 400 ml 550 ml 120 ml Output Total 250 ml 250 ml 300 ml Balance 150 ml 300 ml -180 ml 24-Hour Column 07/31/16 08:00 Intake Total 1070 ml Output Total 800 ml Balance 270 ml Laboratory and Microbiology Results Past 24 Hours Test 07/31/16 06:05 Range/Units White Blood Count 10.40 4.8-10.8 K/uL Red Blood Count 3.09 4.7-6.1 M/uL Hemoglobin 8.7 14.0-18.0 g/dL Hematocrit 25.6 42-52 % Mean Corpuscular Volume 82.8 80-100 fL Mean Corpuscular Hemoglobin 28.2 25-34 pg Mean Corpuscular Hemoglobin Concent 34.0 32-36 g/dl Platelet Count 363 130-400 K/uL Mean Platelet Volume 8.4 7.4-10.4 fL Neutrophils (%) (Auto) 78.7 % Lymphocytes (%) (Auto) 9.0 % Monocytes (%) (Auto) 10.1 % Eosinophils (%) (Auto) 1.7 % Basophils (%) (Auto) 0.2 % Neutrophils # (Auto) 8.18 1.4-6.5 K/uL Lymphocytes # (Auto) 0.94 1.2-3.4 K/uL Monocytes # (Auto) 1.05 0.11-0.59 K/uL Eosinophils # (Auto) 0.18 0-0.5 K/uL Basophils # (Auto) 0.02 0-0.2 K/uL RDW Standard Deviation 52.0 36.4-46.3 fL RDW Coefficient of Variation 17.0 11.5-14.5 % Immature Granulocyte % (Auto) 0.3 % Immature Granulocyte # (Auto) 0.03 0.00-0.02 K/uL Red Blood Cell Morphology Unremarkable Sodium Level 130 136-145 mmol/L Potassium Level 4.1 3.5-5.1 mmol/L Chloride Level 95 98-107 mmol/L Carbon Dioxide Level 24 21-32 mmol/L Anion Gap 11.0 3-11 mmol/L Blood Urea Nitrogen 8 7-18 mg/dl Creatinine 0.50 0.60-1.40 mg/dl Est Creatinine Clear Calc Drug Dose 161.7 ml/min Estimated GFR () 134.6 Estimated GFR (Non- 116.1 BUN/Creatinine Ratio 15.6 10-20 Random Glucose 102 70-99 mg/dl Calcium Level 9.0 8.5-10.1 mg/dl Microbiology Results 07/30/16 Urine Culture, Received Pending Imp: Post revasc left leg Plan: Continue present treatment Will need OT/PT and placement if he is agreeable
--- NOTE | 2016-07-31 13:29 | DIAGNOSTIC IMAGING REPORT ---
CHEST 2 VIEWS ROUTINE CLINICAL HISTORY: Congestive failure. COPD. COMPARISON STUDY: 07/26/2016 FINDINGS: The cardiac and mediastinal contours remain stable. There are persistent bilateral airspace opacities right greater than left. Diagnostic considerations again include asymmetric pulmonary edema versus pneumonia. A trace right pleural effusion is again evident. IMPRESSION: Persistent bilateral asymmetric airspace opacities, similar to the prior study Electronically signed by: Rhys Dove M.D. 07/31/2016 1:28 PM Dictated Date/Time: 07/31/2016 1:26 PM
--- NOTE | 2016-07-31 19:04 | PROGRESS NOTE ---
DATE: 07/31/2016 SUBJECTIVE: A 61-year-old male with multiple medical problems including cellulitis of the left foot and left lower leg, peripheral arterial disease, bipolar disorder. He is status post angioplasty and stenting of his occluded left popliteal artery. He presented with a period where he became quite delirious. Agitated. Restless. He also had urinary retention after his surgery. His condition is improving. He is now awake. He slept well last night. He denied any headache or dizziness. No chest pain, no shortness of breath. He is still with some cough. No nausea, no vomiting. Tolerating his diet. He had a bowel movement. He had a Swartz catheter still in place. PHYSICAL EXAMINATION: GENERAL: Well developed in no distress. VITAL SIGNS: Blood pressure 108/68, pulse 98, respirations 14, temperature 36.9, oxygen saturation 91% on room air. SKIN: Warm and dry. No rash. HEENT: No mucosal abnormality. NECK: No adenopathy. No JVD. HEART: Regular heart sounds. LUNGS: Bilateral rhonchi. ABDOMEN: Soft, nontender. BACK: No spinal tenderness. EXTREMITIES: Dressing left leg and heel. LABORATORY TESTS: Today WBC count 10,400, hemoglobin 8.7, hematocrit 25.6, platelet count 363,000. Sodium 130, potassium 4.1, chloride 95, CO2 of 24, BUN 8, creatinine 0.50, glucose 102, calcium 9.0. His chest x-ray showing what is described as bilateral symmetric airspace opacities. ASSESSMENT: 1. Cellulitis, left lower leg and foot. 2. Ulcer, left heel. 3. Peripheral arterial disease. 4. Delirium. 5. Urinary retention. 6. Bipolar disorder. PLAN: 1. His condition is improving. 2. Continue the same medications. 3. We will remove the Swartz today and see if he is able to void on his own. 4. Continuing physical and occupational therapy. 5. I spoke with him again today about the difficulty of him going back home directly and he is now agreeable to go to [facility] first.
[2016-07-31] MEDS: CEFTRIAXONE SOD INJ 2,000 MG in DEXTROSE 5% 50ML 50 ML IV SCH (21:57)
[2016-08-01] VITALS (7 sets, daily range): BP systolic 102–131; BP diastolic 56–78; PULSE 102–120; TEMP 36.6–37.1; O2SAT 92–97
[2016-08-01] MEDS: LEVALBUTEROL 1.25MG/3ML NEB INH SCH ×4 (02:23→19:19)
[2016-08-01 06:21] LABS: BASO % 0.1 %; BASO ABS # 0.01 K/uL (0-0.2); EOS % 1.1 %; HEMATOCRIT 24.4 % (42-52); IG% 0.3 %; LYMPH % 8.4 %; LYMPH ABS # 0.86 K/uL (1.2-3.4); MEAN CELL VOLUME 82.2 fL (80-100); MEAN CORPUSCULAR HEMOGLOBIN 27.6 pg (25-34); MEAN CORPUSCULAR HGB CONC 33.6 g/dl (32-36); MEAN PLATELET VOLUME 8.5 fL (7.4-10.4); MONO % 7.5 %; NEUT % 82.6 %; PLATELET COUNT 374 K/uL (130-400); RED BLOOD COUNT 2.97 M/uL (4.7-6.1)
[2016-08-01 07:01] LABS: BUN/CREATININE RATIO 10.7 (10-20); CALCIUM 9.1 mg/dl (8.5-10.1); CREATININE 0.46 mg/dl (0.60-1.40); POTASSIUM 4.2 mmol/L (3.5-5.1)
[2016-08-01 07:02] LABS: COMPLETE YES
[2016-08-01] MEDS: ASPIRIN 81 MG ECTAB PO SCH (08:40)
[2016-08-01] MEDS: BuPROPion SR 100 MG TABCR PO SCH (08:40)
[2016-08-01] MEDS: METOPROLOL SUCC 25MG EXT REL TAB PO SCH (08:40)
[2016-08-01] MEDS: DOCUSATE SODIUM 100 MG CAP PO SCH (08:40)
[2016-08-01] MEDS: SULFAMETHOXAZOLE/TRIMETHOPRIM DS 800/160MG TAB PO SCH ×2 (08:41→20:54)
[2016-08-01] MEDS: DIVALPROEX SODIUM 500 MG DELAY RELEASE TAB PO SCH ×2 (08:41→20:55)
[2016-08-01] MEDS: BENZTROPINE MESYLATE 1 MG TAB PO SCH ×2 (08:41→20:55)
[2016-08-01] MEDS: MEMANTINE 5 MG TAB PO SCH (08:41)
[2016-08-01] MEDS: FINASTERIDE 5 MG TAB PO SCH (08:41)
[2016-08-01] MEDS: HALOPERIDOL 5 MG TAB PO SCH ×2 (08:42→20:55)
[2016-08-01] MEDS: HEPARIN SOD 5000 UNIT/0.5 ML CARP SQ SCH ×2 (08:46→19:30)
--- NOTE | 2016-08-01 08:57 | PROGRESS NOTE ---
DATE: 08/01/2016 SUBJECTIVE: I am seeing Mr. Luther for a followup of delirium. He has been sleeping for a short period at this point and it is little difficult to awaken; however, an hour or so, he was up and asking the nurse for coffee as well as some sugar. He was mildly confused at that time. Overnight, he has been afebrile. He is no longer requiring an one-on-one. He is sleepy, but arousable. OBJECTIVE: GENERAL: He is in no distress with a normal respiratory pattern. VITAL SIGNS: Temperature 37, pulse 102, respiratory rate 20, blood pressure 138/78 and oxygen saturation 97%. EXTREMITIES: He moves his extremities symmetrically when he rolls in bed. In person, the patient is currently sleeping. I do not feel the need to try to completely awaken him. He has been doing well and about an hour ago, was awake and alert. IMPRESSION: The patient has a resolving delirium. He is very well known to Dr. Benja Pereira. If he does not return to his baseline, I would recommend an MRI of the brain with and without contrast given his history of lung carcinoma. We will sign off at present. AMELIA
--- NOTE | 2016-08-01 16:02 | PROGRESS NOTE ---
DATE: 08/01/2016 SUBJECTIVE: A 61-year-old male with multiple medical problems includin. Cellulitis of the left foot and left lower leg. 2. Peripheral arterial disease. 3. Ulcer of the left heel. 4. Peripheral neuropathy. 5. Bipolar disorder. 6. Mental status changes with delirium. 7. Urinary retention. 8. Hyponatremia. His condition has gradually improved over the last 2 days. His delirium is resolving. He is still confused at times. He is still requiring one-on-one just for his safety. He is no longer agitated or combative. He denied any headache or dizziness or lightheadedness. He denied any chest pain. No shortness of breath. No nausea and no vomiting. He is tolerating his diet very well. His Swartz catheter was removed yesterday. He is urinating without any problem. He has had bowel movements. No pain in his back or extremities. PHYSICAL EXAMINATION: GENERAL: Well developed, in no distress. VITAL SIGNS: Blood pressure 131/78, pulse 111, respirations 17, temperature 37, and oxygen saturation 97% on 2 liter oxygen by nasal cannula. SKIN: Warm and dry. No rash. HEENT: No evidence of any mucosal abnormality. NECK: No JVD and no adenopathy. HEART: Regular heart sounds. No evident murmur, rub, or gallop. LUNGS: Scattered rhonchi. No wheezing. ABDOMEN: Soft and nontender without organomegaly or masses. BACK: No spinal tenderness. EXTREMITIES: Dressing in the left foot. No edema, clubbing, or cyanosis. TODAY'S LABORATORY TESTS: WBC count 10,200, hemoglobin 8.2, hematocrit 24.4, and platelet count 374,000. Sodium 128, potassium 4.2, chloride 95, CO2 of 25, BUN 5, creatinine 0.46, glucose 105, and calcium 9.1. ASSESSMENT: 1. Cellulitis, left foot and left lower leg. Resolved. 2. Ulcer of the left foot. 3. Peripheral arterial disease. 4. Bipolar disorder. 5. Delirium. 6. Urinary retention. 7. Anemia. 8. Hyponatremia. PLAN: 1. His mental status is improved, but not to his baseline anemia yet. 2. We will go ahead and order an MRI of the brain without and with contrast as recommended by Dr. Lew. 3. Continue all his medications. 4. He is getting physical and occupational therapy. 5. He is now agreeable to go to [facility] after his acute hospitalization.
[2016-08-01] MEDS ORDERED: NURSING VERBAL MED ORDER ONE (18:30)
[2016-08-01] MEDS ORDERED: LORAZEPAM INJ 0.5 MG in SYRINGE 0.75 ML IV PRN (18:45)
[2016-08-01] MEDS: CEFTRIAXONE SOD INJ 2,000 MG in DEXTROSE 5% 50ML 50 ML IV SCH (22:12)
[2016-08-02 02:00] VITALS: PULSE 119; O2SAT 91
[2016-08-02] MEDS: LEVALBUTEROL 1.25MG/3ML NEB INH SCH ×5 (02:00→20:10)
[2016-08-02 06:49] VITALS: BP 100/62; PULSE 99; TEMP 36.6; O2SAT 98
[2016-08-02] MEDS: HEPARIN SOD 5000 UNIT/0.5 ML CARP SQ SCH ×2 (06:59→19:39)
[2016-08-02] MEDS ORDERED: OPTIRAY 320 IV PRN (07:45)
[2016-08-02] MEDS: DIVALPROEX SODIUM 500 MG DELAY RELEASE TAB PO SCH ×2 (08:43→22:02)
[2016-08-02] MEDS: DOCUSATE SODIUM 100 MG CAP PO SCH (08:43)
[2016-08-02] MEDS: COLLAGENASE OINT 30 GM TUBE EXT SCH (08:43)
[2016-08-02] MEDS: HALOPERIDOL 5 MG TAB PO SCH ×2 (08:43→22:01)
[2016-08-02] MEDS: BuPROPion SR 100 MG TABCR PO SCH (08:43)
[2016-08-02] MEDS: ASPIRIN 81 MG ECTAB PO SCH (08:43)
[2016-08-02] MEDS: BENZTROPINE MESYLATE 1 MG TAB PO SCH ×2 (08:44→22:03)
[2016-08-02] MEDS: METOPROLOL SUCC 25MG EXT REL TAB PO SCH (08:44)
[2016-08-02] MEDS: MEMANTINE 5 MG TAB PO SCH (08:44)
[2016-08-02] MEDS: FINASTERIDE 5 MG TAB PO SCH (08:44)
--- NOTE | 2016-08-02 14:12 | DIAGNOSTIC IMAGING REPORT ---
CT HEAD COMBO CT DOSE: 934.34 mGycm TECHNIQUE: Noncontrast images were obtained through the brain in the axial plane. The sequence was repeated following administration of 93 Optiray 320. HISTORY: LUNG CANCER, MENTAL STATUS CHANGES COMPARISON: 07/29/2016 FINDINGS: No intra or extra-axial mass lesions are visualized. There is no CT evidence of acute cortical infarction. There is no evidence of midline shift. There is no acute hemorrhage. No calvarial fractures are visualized. There are patchy white matter hypodensities likely on a small vessel basis. There is no evidence of pathologic ventricular dilatation. There is no evidence of acute sinusitis Postcontrast images reveal no pathologically enhancing masses. IMPRESSION: No acute intracranial findings. No CT evidence of intracranial metastasis. Electronically signed by: Rhys Dove M.D. 08/02/2016 2:10 PM Dictated Date/Time: 08/02/2016 2:09 PM
[2016-08-02 14:14] VITALS: PULSE 87; O2SAT 92
--- NOTE | 2016-08-02 14:36 | Neurology Progress Notes ---
Neurology Progress Note Date of Service Aug 02, 2016. Bertha Lepe is a 61 year old male with a PMH cellulitis L foot , bipolar, EtOH abuse , lung mass, HTN antibiotics for the cellulitis and states that his last evaluation in the hospital was 2-3 weeks ago. He notes sharp pains to the area and increased pain. He is currently being treated for lung cancer and had a productive cough. He had an abnormal CT scan prior to arrival today so he was referred here by his oncologist. 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 After surgery he became restless and hallucinating he was given ativan and valium and haldol. Currently he is alert and wake. He states he is not eating well. denies CP, SOB , abdominal pain, N, V. Objective Date Time Temp Pulse Resp B/P Pulse Ox O2 Delivery O2 Flow Rate FiO2 08/02/16 14:14 87 20 92 Room Air 08/02/16 07:29 Room Air 08/02/16 06:49 36.6 99 20 100/62 98 Room Air 08/02/16 02:00 119 24 91 Room Air 08/01/16 23:00 Room Air 08/01/16 22:56 37.1 109 28 102/56 96 Room Air 08/01/16 19:21 120 22 94 Room Air 08/01/16 15:15 Room Air Nasal Cannula 08/01/16 14:59 105 24 93 Room Air 08/01/16 14:57 36.6 104 20 119/75 94 Room Air no new labs Imaging: CT head -No acute intracranial findings. No CT evidence of intracranial metastasis. Exam: Physical Exam: Constitutional: appearance nourished, healthy Ears, Nose, Mouth and Throat: mucous membranes moist, no injection and skin normal, eyes normal Cardiovascular: normal S-1 and S-2 and regular rate and rhythm Respiratory: course breath sound Musculoskeletal: slight peripheral edema, bilaterally waffle boots Skin: no stigmata of neurocutaneous disease noted and normal and intact Eyes: extraocular muscles intact (EOMI) pupils dilated reactive NEUROLOGIC EXAMINATION: Mental status: Alert and interactive does not know he is at [facility], knows the year 2016, president is Obama Oriented to person Speech fluent with no evidence of aphasia Cranial Nerves smile and eye brow raise symmetric, tongue midline Coordination: finger to nose with no bi pass Gait/Stance: lying in bed moves all ext spontaneously Strength: hand game developer 5/5 biceps triceps bilaterally, hip flex plantar flex ext 5/5 bilaterally Current Inpatient Medications Medications (Trade) Dose Ordered Sig/Rinku Route Start Time Stop Time Status Last Admin Dose Admin Heparin Sodium (Porcine) (Heparin Sq 5000 Unit/0.5ml) 5,000 unit Q12H SQ 07/22/16 19:30 08/21/16 19:29 08/02/16 06:59 5,000 UNIT Aspirin (Ecotrin Tab) 81 mg DAILY PO 07/23/16 09:00 08/22/16 08:59 08/02/16 08:43 81 MG Benztropine Mesylate (Cogentin Tab) 1 mg BID PO 07/22/16 21:00 08/21/16 20:59 08/02/16 08:44 1 MG Bupropion HCl (Wellbutrin-Sr Tab) 100 mg QAM PO 07/23/16 09:00 08/22/16 08:59 08/02/16 08:43 100 MG Divalproex Sodium (Depakote Delay Rel Tab) 500 mg BID PO 07/22/16 21:00 08/21/16 20:59 08/02/16 08:43 500 MG Docusate Sodium (coLACE CAP) 100 mg QAM PO 07/23/16 09:00 08/22/16 08:59 08/02/16 08:43 100 MG Folic Acid (Folvite Tab) 1 mg DAILY PO 07/23/16 09:00 08/22/16 08:59 08/02/16 08:44 1 MG Haloperidol (Haldol Tab) 5 mg BID PO 07/22/16 21:00 08/21/16 20:59 08/02/16 08:43 5 MG Memantine (Namenda Tab) 5 mg QAM PO 07/23/16 09:00 08/22/16 08:59 08/02/16 08:44 5 MG Metoprolol Succinate (Toprol Xl Tab) 25 mg QAM PO 07/23/16 09:00 08/22/16 08:59 08/02/16 08:44 25 MG Finasteride (Proscar Tab) 5 mg QAM PO 07/23/16 09:00 08/22/16 08:59 08/02/16 08:44 5 MG Pneumococcal Polysaccharide Vaccine 1 ea 1 ea PRN PRN N/A 07/22/16 18:00 08/21/16 17:59 Ondansetron HCl 8 mg/Dextrose 54 ml @ 200 mls/hr Q4H PRN IV 07/22/16 18:15 08/21/16 18:14 Ceftriaxone Sodium/Dextrose (Rocephin Inj/D5 50ml) 70 ml @ 100 mls/hr Q24H IV 07/23/16 22:00 08/02/16 21:59 08/01/16 22:12 100 MLS/HR Menthol (Nice Erica) 1 erica PRN PRN PO 07/23/16 03:30 08/22/16 03:29 Acetaminophen/ Hydrocodone Bitart (Morrow 5/325 Tab) 2 tab Q4H PRN PO 07/23/16 22:15 08/06/16 22:14 07/31/16 00:03 2 TAB Collagenase (Santyl Oint) 1 appln DAILY EXT 07/23/16 23:45 08/22/16 23:44 08/02/16 08:43 1 APPLN Levalbuterol (Xopenex 1.25MG/ 3ML Neb) 1.25 mg Q6R INH 07/28/16 15:00 08/27/16 14:59 08/02/16 14:14 1.25 MG Ioversol (Optiray 320) 100 ml UD PRN IV 08/02/16 07:45 08/06/16 07:44 Impression 61 year old male s/p vascular surgery and MS change Plan 1. CXR stable 2. sodium has been consistently low likely due to depakote 3. correct lytes 4. would try Seroquel .25 mg for agitation instead of Haldol an Ativan 5. family input for EtOH history if recent or distant- treating with Librium and given thiamine- treated sufficiently 6. appears to be delirium superimposed on a baseline that is being treated with dementia medications and psychiatric medications at baseline- continues to improve 7. also had an event of hypoxia partially due to CHF and history of CA 8. would try to limit benzos due to the sedation effect 9. may need to image brain with MRI with and without - no sure of baseline 10. will continue to follow as needed I have seen and discussed above patient with Dr Sandra Lew, neurology
[2016-08-02 15:34] VITALS: BP 114/69; PULSE 106; TEMP 36.4; O2SAT 96
[2016-08-02 15:51] LABS: FERRITIN 1699.4 ng/ml (8.0-388.0)
[2016-08-02 16:02] VITALS: BP 97/60; PULSE 101
--- NOTE | 2016-08-02 20:05 | PROGRESS NOTE ---
DATE: 08/02/2016 SUBJECTIVE: A 61-year-old male admitted with cellulitis of his left foot and left lower leg. He has an ulcer on his left heel. He has peripheral arterial disease, peripheral neuropathy and bipolar disorder. During his hospitalization, he did present with urinary retention and required catheterization. He also had persistent few days an acute onset of delirium. Neurologically, there was no evidence of any CVA. No evidence of any significant abnormalities noted. Eventually, he recovered from his delirium. Today, his condition has markedly improved. He is back to his baseline. He is not requiring one-on-one care at this point. Yesterday, I did order an MRI of his brain to be done looking for any evidence of any metastatic disease because of his lung carcinoma, but MRI could not be done because of the new stent placed. So today, I ordered a CT scan of the head without and with contrast and there was no evidence of any metastatic disease. He denied any headache. No dizziness. No lightheadedness. Denied any chest pain, no shortness of breath. No abdominal pain, no nausea, no vomiting. He is having normal bowel movements. No problem urinating since the Swartz catheter was removed. No pain in his back. He does have some pain in his left leg at times. PHYSICAL EXAMINATION: GENERAL: Well developed, in no distress. VITAL SIGNS: Blood pressure 100/62, pulse 99 respirations 20, temperature 36.6, oxygen saturation 98% on room air. SKIN: Warm and dry. No rash. HEENT: No mucosal abnormality. NECK: No JVD, no adenopathy. HEART: Regular heart sounds. LUNGS: Bilateral rhonchi. ABDOMEN: Soft, nontender. BACK: No spinal tenderness. EXTREMITIES: No edema, clubbing, or cyanosis. Dressing, left ankle. ASSESSMENT: 1. Cellulitis, left foot and lower leg. 2. Ulcer, left heel. 3. Peripheral arterial disease. 4. Adenocarcinoma of the lung, status post surgical procedure and also status post radiation and chemotherapy. 5. Bipolar disorder. 6. Delirium. 7. Urinary retention, resolved. PLAN: 1. As noted, his condition is back to his baseline, especially from a mental standpoint. 2. Continuing all his medications. 3. Physical and occupational therapies to continue. 4. We are working on getting him back to [facility]. Working on insurance approval. If this is accomplished, we should be able to transfer him back to [facility] tomorrow. AMELIA
[2016-08-02 23:40] VITALS: BP 110/63; PULSE 102; TEMP 36.7; O2SAT 97
[2016-08-03] MEDS: LEVALBUTEROL 1.25MG/3ML NEB INH SCH ×2 (02:12→07:23)
[2016-08-03] MEDS: HEPARIN SOD 5000 UNIT/0.5 ML CARP SQ SCH (07:13)
[2016-08-03 07:23] VITALS: PULSE 89; O2SAT 98
[2016-08-03] MEDS ORDERED: FOLI1TAB7 PO (07:38)
[2016-08-03] MEDS ORDERED: NMN5 PO (07:38)
[2016-08-03] MEDS ORDERED: METO25TA3 PO (07:38)
[2016-08-03] MEDS ORDERED: DUTA0.5C PO (07:38)
[2016-08-03] MEDS ORDERED: ASPI81TA28 PO (07:38)
[2016-08-03] MEDS ORDERED: CGN1 PO (07:38)
[2016-08-03] MEDS ORDERED: DIVA500T59 PO (07:38)
[2016-08-03] MEDS ORDERED: ACET-1222 PO (07:38)
[2016-08-03] MEDS ORDERED: TAMS0.4C38 PO (07:38)
[2016-08-03] MEDS ORDERED: BUPR100T8 PO (07:38)
[2016-08-03] MEDS ORDERED: SNTO30 EXT (07:38)
[2016-08-03] MEDS ORDERED: DOCU100C PO (07:38)
[2016-08-03] MEDS ORDERED: HALO5TAB PO (07:38)
--- NOTE | 2016-08-03 07:43 | Discharge Instructions ---
Discharge Instructions Admission Reason for Admission: CELLULITIS LEFT FOOT ULCER LEFT HEEL PERIPHERAL ARTERIAL DISEASE ADENOCARCINOMA IF THE LUNG URINARY RETENTION DELIRIUM. RESOLVED BIPOLAR DISORDER Discharge Discharge Diagnosis / Problem: CELLULITIS LEFT FOOT. LEFT HEEL ULCER. PERIPHERAL ARTERIAL DISEASE. LUNG CA Discharge Goals Goal(s): Decrease discomfort, Improve function, Increase independence, Improve disease control, Improve nutritional status Activity Recommendations Activity Level: Assistance Required Therapies: Physical Therapy, Occupational Therapy . Additional Information Patient informed of condition: Yes Advance Directives: No DNR: No Level of Care: Acute Rehab Communicable Disease: No Prognosis: Improving Swartz Catheter: No Current Hospital Diet Patient's current hospital diet: Regular Diet Discharge Diet Recommended Diet: Regular Diet Procedures Procedures Performed: Left Lower Extremity Angiogram, Percutaneous Transluminal Angioplasty and stenting of Left Popliteal Artery, Moderate sedation from 1054 - 1149 Pending Studies Studies pending at discharge: no Medical Emergencies . Who to Call and When: Medical Emergencies: If at any time you feel your situation is an emergency, please call 911 immediately. . Non-Emergent Contact Non-Emergency issues call your: Primary Care Provider . . "Provider Documentation" section prepared by Benja Pereira. Core Measure Problem Core Measures: None
[2016-08-03 08:17] VITALS: BP 128/48; PULSE 109; TEMP 36.5; O2SAT 92
[2016-08-03 08:38] LABS: HEMATOCRIT 28.6 % (42-52); MEAN CELL VOLUME 81.5 fL (80-100); MEAN CORPUSCULAR HEMOGLOBIN 27.6 pg (25-34); MEAN CORPUSCULAR HGB CONC 33.9 g/dl (32-36); MEAN PLATELET VOLUME 8.3 fL (7.4-10.4); PLATELET COUNT 488 K/uL (130-400); RED BLOOD COUNT 3.51 M/uL (4.7-6.1); WHITE BLOOD COUNT 8.86 K/uL (4.8-10.8)
[2016-08-03] MEDS: HALOPERIDOL 5 MG TAB PO SCH (08:47)
[2016-08-03] MEDS: FINASTERIDE 5 MG TAB PO SCH (08:47)
[2016-08-03] MEDS: ASPIRIN 81 MG ECTAB PO SCH (08:47)
[2016-08-03] MEDS: BENZTROPINE MESYLATE 1 MG TAB PO SCH (08:47)
[2016-08-03] MEDS: METOPROLOL SUCC 25MG EXT REL TAB PO SCH (08:47)
[2016-08-03] MEDS: MEMANTINE 5 MG TAB PO SCH (08:47)
[2016-08-03] MEDS: BuPROPion SR 100 MG TABCR PO SCH (08:47)
[2016-08-03] MEDS: DOCUSATE SODIUM 100 MG CAP PO SCH (08:47)
[2016-08-03] MEDS: DIVALPROEX SODIUM 500 MG DELAY RELEASE TAB PO SCH (08:47)
[2016-08-03] MEDS: COLLAGENASE OINT 30 GM TUBE EXT SCH (08:48)
[2016-08-03 12:24] VITALS: BP 128/48; PULSE 109; TEMP 36.5; O2SAT 92
--- NOTE | 2016-08-03 21:23 | PROGRESS NOTE ---
DATE: 08/03/2016 A 61-year-old male, with multiple medical problems includin. Cellulitis of the left foot. 2. Ulcer of the left heel. 3. Peripheral arterial disease. 4. Urinary retention. 5. Delirium, resolved. 6. Bipolar disorder. PLAN: Overall, his condition has improved. He is pretty much back to his baseline as far as his mental status. REVIEW OF SYSTEMS: The patient is resting comfortably. He is sleeping well. Good appetite. He denied any headache, dizziness or lightheadedness. No chest pain. No shortness of breath. No abdominal pain, no nausea, no vomiting. No problem with his bowel movements. No problem urinating. No pain in his back. No leg edema. PHYSICAL EXAMINATION: GENERAL: Well-developed, in no distress. VITAL SIGNS: Blood pressure 128/48, pulse 109, respirations 18, temperature 36.5 and oxygen saturation 92% on room air. SKIN: Warm and dry. No rash. HEENT: No mucosal abnormalities. NECK: No adenopathy, no thyromegaly. HEART: Regular heart sounds. LUNGS: Bilateral rhonchi. ABDOMEN: Soft and benign. BACK: No spinal tenderness. EXTREMITIES: Dressing on left foot. No edema, clubbing or cyanosis. His cellulitis has completely resolved. ASSESSMENT: 1. Cellulitis, left foot. 2. Ulcer of left heel. 3. Peripheral arterial disease. 4. Bipolar disorder. 5. Delirium, resolved. 6. Urinary retention, resolved. PLAN: 1. Overall, his condition is stable. 2. Continuing his medications. 3. We were able to get him approved to go for skilled care at [facility]. All arrangements were made today.
[2016-08-11] MEDS ORDERED: MULT-506 PO (10:40)
[2016-08-11] MEDS ORDERED: ASCO500C43 PO (10:40)
[2016-08-11] MEDS ORDERED: NICO1DIS9 TOP (10:40)
[2016-08-11] MEDS ORDERED: PROT1POW (10:40)
[2016-08-11] MEDS ORDERED: ZINC1CAP PO (10:40)
--- NOTE | 2016-08-15 17:52 | DISCHARGE SUMMARY ---
DISCHARGE DIAGNOSES: 1. Cellulitis of the left foot. 2. Ulcer of the left heel. 3. Peripheral arterial disease. 4. Adenocarcinoma of the lung. 5. Urinary retention. 6. Delirium. 7. Bipolar disorder. DISCHARGE MEDICATIONS: Included: 1. Santyl 250 units per gram to apply daily to the heel ulcer. 2. Tylenol 500 mg every 4 hours as needed. 3. Aspirin 81 mg daily. 4. Cogentin 1 mg twice a day. 5. Wellbutrin-SR 100 mg daily. 6. Depakote 500 mg twice a day. 7. Docusate sodium 100 mg daily. 8. Avodart 0.5 mg daily. 9. Folic acid 1 mg daily. 10. Haldol 5 mg twice a day. 11. Namenda 5 mg daily. 12. Metoprolol succinate 25 mg daily. 13. Tamsulosin 0.4 mg daily daily. CONSULTATIONS: 1. Dr. David Ac in vascular surgery. 2. Dr. Lew in neurology. A 61-year-old male admitted with multiple medical problems including dehydration, arterial hypertension, cellulitis of the left lower leg and foot. The patient with multiple medical problems as noted above. He is also a smoker. He was last hospitalized on 06/18/2016 when he presented with an acute ischemia of his left foot and left lower leg. He was seen by Dr. Ac. He underwent surgical procedure with percutaneous transluminal angioplasty of the right iliac artery. A similar procedure was attempted on the left side but was not successful and the patient did require a fem-fem bypass, right to left. The condition of his foot improved. Subsequently, he developed a hematoma of the left heel and eventually developed an ulcer. He has required debridement. He was transferred to [facility] and recently went back to his own apartment. The patient was seen by Dr. Cheng on the day of admission. He was alarmed about his condition. The patient was hypotensive and lightheaded. He had to be helped to the chair. Multiple laboratory tests were done prior to his office visit. He also had a CT scan of the chest as a followup of his lung cancer. Dr. Cheng was concerned about the patient and he did call me and we send the patient to the Emergency Room to initiate his evaluation and proceed with his treatment. PAST MEDICAL HISTORY, SOCIAL HISTORY AND FAMILY HISTORY: Were all as noted. ALLERGIES: None. MEDICATIONS ON ADMISSION: Were all as noted on his home medication list. PHYSICAL EXAMINATION AND ADMISSION LABORATORY TESTS: Were all as noted. HOSPITAL COURSE: The patient was admitted to medical bed. Resuscitation level 1. All his laboratory tests were ordered. He was started on IV antibiotics. He was started on oral Septra-DS and IV ceftriaxone. This was based on the prior cultures done as an outpatient of the ulcer on his heel. Vascular surgery consultation was requested. The cellulitis was improving. His symptoms resolved. He was afebrile. His WBC count returned to normal. Physical and occupational therapies were ordered. The ulcer on his left heel was treated. As noted, the patient was seen by Dr. Ac. Because of the cellulitis and the ulcer on his heel angiography was done. The patient had evidence of occlusion of his popliteal artery. Dr. Ac did perform an angioplasty. He also did a left popliteal artery stenting. Postoperatively, patient had a change in his mental status. He presented with delirium. He required sedation. He required 1 on 1 care. His mental status persisted for a couple of days. He was seen in neurology consultation. Imaging studies were done including CT scan of the head which did not really show any new changes. His mental status improved. The cellulitis in his left lower leg and left foot resolved. The ulcer on his left heel was treated. He requires daily dressing changes. Initially, patient was insisting that he wants to go home, but given his condition, especially the decompensation with his delirium and his requirement for additional care he finally agreed to go back to [facility] until he recovers adequately before he considers to go home. Arrangements were made. He was transferred to [facility].
[2016-08-25] MEDS ORDERED: VANC1INJ71 IV (11:41)
[2016-08-25] MEDS ORDERED: CPRS5005 PO (11:41)
[2016-09-23] MEDS ORDERED: SULF800T23 PO (14:04)
[2016-10-06] MEDS ORDERED: ZSYI45 IV (08:45)
[2016-10-20] MEDS ORDERED: LINE1TAB2 PO (10:19)
[2016-10-20] MEDS ORDERED: CLOTCRE33 TOP (10:19)
[2016-11-03] MEDS ORDERED: CLOTCRE33 TOP (09:38)
[2016-11-12] MEDS ORDERED: PRLSR20 PO (10:07)
[2016-11-12] MEDS ORDERED: HYDR-3126 PO (10:07)
[2016-11-12] MEDS ORDERED: NMN5 PO (10:07)
[2016-11-12] MEDS ORDERED: LINE1TAB6 PO (10:07)
[2016-11-12] MEDS ORDERED: ARTIOIN OP (10:07)
[2016-11-12] MEDS ORDERED: MELA1TAB54 PO (10:07)
[2016-11-12] MEDS ORDERED: MULTTAB63 PO (10:07)
[2016-11-12] MEDS ORDERED: TEMA15CA4 PO (10:08)
[2016-11-17] MEDS ORDERED: LINE1TAB6 PO (09:49)
[2016-12-15] MEDS ORDERED: LORA-741 PO (09:27)
[2016-12-29] MEDS ORDERED: LINE1TAB6 PO ×2 (09:43→09:44)
[2017-02-23] MEDS ORDERED: DIVA500T59 PO (08:26)
[2017-02-23] MEDS ORDERED: QUET1TAB30 PO (08:26)
[2017-02-23] MEDS ORDERED: BUPR-83 PO (08:26)
[2017-02-23] MEDS ORDERED: CYAN10005 PO (08:27)
== END 2016-08-03 13:39 | DRG 253 ==
LOC: ENRESERVDT → ENRESERVTM → C.EDB 13:38 → C.MSN 18:58 → C.MSW 07-28 23:08
PROVIDERS: ADMIT Internal Medicine; ATTEND Internal Medicine
PROC: B41G1ZZ Fluoroscopy of Left Lower Extremity Arteries using Low Osmolar Contrast (ICD-10-PCS; 2016-07-27)
PROC: 047N3DZ Dilation of Left Popliteal Artery with Intraluminal Device, Percutaneous Approach (ICD-10-PCS; principal; 2016-07-27 12:45)
DX: I70.244 Atherosclerosis of native arteries of left leg with ulceration of heel and midfoot (principal); L03.116 Cellulitis of left lower limb; E87.1 Hypo-osmolality and hyponatremia; I70.92 Chronic total occlusion of artery of the extremities; J90 Pleural effusion, not elsewhere classified; I10 Essential (primary) hypertension; E86.0 Dehydration; F31.9 Bipolar disorder, unspecified; E78.5 Hyperlipidemia, unspecified; Z85.118 Personal history of other malignant neoplasm of bronchus and lung; F17.210 Nicotine dependence, cigarettes, uncomplicated; I95.1 Orthostatic hypotension; F10.10 Alcohol abuse, uncomplicated; I95.9 Hypotension, unspecified; R33.9 Retention of urine, unspecified; J44.9 Chronic obstructive pulmonary disease, unspecified; R41.0 Disorientation, unspecified; L97.429 Non-pressure chronic ulcer of left heel and midfoot with unspecified severity; Z98.52 Vasectomy status

== ENCOUNTER → 2016-08-09 | Outpatient (CLI) | payer OTHER ==
[~2016-08-09] MED LIST changes: +ACET-1256 PO; -AMOX500C3 PO; +ARTIOIN OP; +ASCA500 PO; +ASCO500C43 PO; +BISA10SU38 PR; +BUPR-83 PO; +CIPR-255 PO; +CLOTCRE33 TOP; +CPRS5005 PO; +CYAN10005 PO; -DEXT30TA7 PO; +DIVA500T5 PO; +DOCU100C31 PO; +FOLI1TAB7 PO; +HYDR-3126 PO; +LINE1TAB2 PO; +LINE1TAB6 PO; +LORA-741 PO; +MELA1TAB54 PO; +MOMLX PO; +MULT-506 PO; +MULTTAB63 PO; +NICO1DIS9 TOP; +PRED10TA PO; +PRLSR20 PO; +PROT1POW; +QUET1TAB30 PO; +SNTO30 EXT; +TEMA15CA4 PO; +TRAM-10 PO; +VANC1INJ71 IV; +WLLSR100 PO; +ZINC1CAP PO; +ZSYI45 IV; +[UNRECOGNIZED DRUG - CODE] IV
[2016-08-09 08:39] LABS: BASO % 0.1 %; BASO ABS # 0.01 K/uL (0-0.2); COMPLETE YES; EOS % 1.9 %; HEMATOCRIT 28.7 % (42-52); IG% 1.3 %; LYMPH % 7.8 %; LYMPH ABS # 0.61 K/uL (1.2-3.4); MEAN CELL VOLUME 80.8 fL (80-100); MEAN CORPUSCULAR HEMOGLOBIN 26.5 pg (25-34); MEAN CORPUSCULAR HGB CONC 32.8 g/dl (32-36); MEAN PLATELET VOLUME 8.3 fL (7.4-10.4); MONO % 15.5 %; NEUT % 73.4 %; PLATELET COUNT 515 K/uL (130-400); RED BLOOD COUNT 3.55 M/uL (4.7-6.1); WHITE BLOOD COUNT 7.85 K/uL (4.8-10.8)
[2016-08-09 08:46] LABS: ALT/SGPT 34 U/L (12-78); AST/SGOT 20 U/L (15-37); BLOOD UREA NITROGEN 6 mg/dl (7-18); BUN/CREATININE RATIO 16.8 (10-20); CALCIUM 8.9 mg/dl (8.5-10.1); CARBON DIOXIDE 24 mmol/L (21-32); CHLORIDE 94 mmol/L (98-107); CREATININE 0.38 mg/dl (0.60-1.40); GLUCOSE 98 mg/dl (70-99); POTASSIUM 4.1 mmol/L (3.5-5.1); SODIUM 130 mmol/L (136-145)
[2016-08-09 08:52] LABS: ALB/GLOB RATIO 0.5 (0.9-2); ALKALINE PHOSPHATASE 66 U/L (45-117)
== END ==
LOC: C.LABCC 07:56
PROVIDERS: ATTEND Internal Medicine
DX: C34.90 Malignant neoplasm of unspecified part of unspecified bronchus or lung (principal)

== ENCOUNTER → 2016-08-16 | Outpatient (CLI) | payer OTHER ==
[~2016-08-16] MED LIST changes: -HALO5TAB PO
--- NOTE | 2016-08-16 15:07 | DIAGNOSTIC IMAGING REPORT ---
PET/CT HISTORY: Lung cancer. TECHNIQUE: PET/CT was performed from the base of the skull through the pelvis following the intravenous administration of mCi of F18-FDG. Non-contrast CT imaging was performed over the same range without breath-hold for attenuation correction of PET images and anatomic correlation, but not for primary interpretation as it is not of standard diagnostic quality. CT DOSE: COMPARISON: PET CT 02/04/2016. CTA abdomen/pelvis/lower extremities 03/01/2016. Chest CT 07/16/2016. FINDINGS: HEAD AND NECK: There is no FDG-avid disease or significant lymphadenopathy in the imaged portions of the head and the neck. Asymmetry within the left vocal cord in comparison the right. This remains unchanged. CHEST: A spiculated 2.2 cm nodule within the left upper lobe is not significantly changed in size. However, there is been interval development of dense consolidation involving the left upper lobe, the right upper lobe, and majority of the right lower lobe. These areas demonstrate moderate to intense FDG uptake with an SUV max of 7. The spiculated mass with left upper lobe is partially obscured by this area of consolidation but demonstrates an SUV max of 2.6. This is improved compared to the prior study when the SUV max was 6.0. No FDG avid mediastinal or hilar lymph nodes. Small bilateral pleural effusions have developed. ABDOMEN/PELVIS: Below the diaphragm, tracer is distributed physiologically in the gastrointestinal and genitourinary tracts. There is no significant lymphadenopathy and no FDG-avid disease. Evidence for a femorofemoral bypass graft. There is a 3.4 cm cystic focus within the left groin. This may represent a pseudoaneurysm. MUSCULOSKELETAL: There is no FDG-avid or destructive bone lesion. IMPRESSION: 1. No change in size in the 2.2 cm spiculated nodule within the left upper lobe. However, the FDG uptake associated with this lesion has improved. 2. Interval development of dense areas of consolidation within the left upper lobe and right upper and lower lobes with associated FDG uptake. This could be due to post radiation change or pneumonia. Metastatic disease is considered less likely. However, recommend follow-up to ensure resolution. 3. No FDG avid mediastinal or hilar lymphadenopathy. 4. Small bilateral pleural effusions. 5. Interval placement of a femoral-femoral bypass graft. There is a 3.4 cm cystic focus within the left groin which could represent a pseudoaneurysm. Ultrasound may be used for further evaluation. Electronically signed by: Patricio Burger M.D. 08/16/2016 3:06 PM Dictated Date/Time: 08/16/2016 2:23 PM
== END ==
LOC: C.PET 08:40
PROVIDERS: ATTEND Internal Medicine Hematology & Oncology
DX: C34.11 Malignant neoplasm of upper lobe, right bronchus or lung (principal)

== ENCOUNTER → 2016-08-16 | Outpatient (CLI) | payer OTHER ==
[~2016-08-16] MED LIST changes: +GADAVIST IV PRN
--- NOTE | 2016-08-16 08:35 | DIAGNOSTIC IMAGING REPORT ---
MRI LEFT HINDFOOT COMBO CLINICAL HISTORY: Nonhealing ulcer. COMPARISON STUDY: Radiographs of left foot dated 07/15/2016. TECHNIQUE: MRI of the left hindfoot is performed utilizing various T1 and T2-weighted sequences in the axial, sagittal, coronal planes. Contrast-enhanced images were acquired following the IV administration of 7.4 cc of Gadavist. The examination is degraded by motion artifact. FINDINGS: A cutaneous defect is seen in the heel consistent with reported history of an ulcer. There is associated subcutaneous soft tissue edema and patchy nonspecific enhancement. The appearance suggests cellulitis. No organized fluid collection is seen to indicate abscess. Marrow signal intensity is markedly heterogeneous. There is drop in T1 signal identified within the posterior aspect of the calcaneus, best seen on axial image 17. There is minimal loss of the cortex at this site. The appearance is concerning for osteomyelitis. No additional foci of cortical loss are suspected. Arthritic change is noted in the medial aspect of the talus and involving the posterior intertarsal articulations. A large dorsal heel spur is noted. A trace joint effusion is identified. The plantar fascia is normal as visualized. There is a split thickness tear of the peroneus brevis tendon. Mild myositis is noted within the partially imaged flexor musculature along the plantar aspect of the foot. IMPRESSION: 1. There is a cutaneous ulceration identified in the posterior heel with evidence of surrounding cellulitis. No fluid collection is seen to suggest abscess. 2. Findings suggest osteomyelitis in the posterior calcaneus. 3. There is a split thickness tear of the peroneus longus tendon. 4. Marrow signal intensity is markedly heterogeneous. There is no convincing evidence of fracture. Dictated: 08/16/2016 8:16 AM Transcribed: 08/16/2016 8:35 AM Caleb Electronically signed by: Tomy Thompson M.D. 08/16/2016 8:37 AM Dictated Date/Time: 08/16/2016 8:16 AM
== END | disposition home or self-care (01) ==
LOC: C.MRI 06:57
PROVIDERS: ATTEND Emergency Medicine
DX: L97.429 Non-pressure chronic ulcer of left heel and midfoot with unspecified severity (principal); S86.312A Strain of muscle(s) and tendon(s) of peroneal muscle group at lower leg level, left leg, initial encounter; X58.XXXA Exposure to other specified factors, initial encounter; C34.11 Malignant neoplasm of upper lobe, right bronchus or lung

== ENCOUNTER → 2016-08-26 | Outpatient (CLI) | payer OTHER ==
[~2016-08-26] MED LIST changes: -GADAVIST IV PRN
[2016-08-26 08:14] LABS: BASO % 0.3 %; BASO ABS # 0.02 K/uL (0-0.2); COMPLETE YES; EOS % 3.8 %; HEMATOCRIT 31.3 % (42-52); IG% 0.3 %; LYMPH % 9.6 %; LYMPH ABS # 0.61 K/uL (1.2-3.4); MEAN CELL VOLUME 82.2 fL (80-100); MEAN CORPUSCULAR HEMOGLOBIN 26.5 pg (25-34); MEAN CORPUSCULAR HGB CONC 32.3 g/dl (32-36); MEAN PLATELET VOLUME 8.7 fL (7.4-10.4); MONO % 13.8 %; NEUT % 72.2 %; PLATELET COUNT 347 K/uL (130-400); RED BLOOD COUNT 3.81 M/uL (4.7-6.1); WHITE BLOOD COUNT 6.37 K/uL (4.8-10.8)
[2016-08-26 08:23] LABS: ALT/SGPT 18 U/L (12-78); BLOOD UREA NITROGEN 10 mg/dl (7-18); BUN/CREATININE RATIO 21.5 (10-20); CALCIUM 8.5 mg/dl (8.5-10.1); CARBON DIOXIDE 27 mmol/L (21-32); CHLORIDE 100 mmol/L (98-107); CREATININE 0.46 mg/dl (0.60-1.40); GLUCOSE 94 mg/dl (70-99); POTASSIUM 4.1 mmol/L (3.5-5.1); SODIUM 134 mmol/L (136-145)
[2016-08-26 08:26] LABS: ALB/GLOB RATIO 0.6 (0.9-2); ALKALINE PHOSPHATASE 69 U/L (45-117); AST/SGOT 11 U/L (15-37)
== END ==
LOC: C.LABCC 07:44
PROVIDERS: ATTEND Internal Medicine
DX: T14.8 Other injury of unspecified body region (principal); X58.XXXA Exposure to other specified factors, initial encounter

== ENCOUNTER → 2016-08-27 | Outpatient (CLI) | payer OTHER | LOC: C.LABCC 08:57 | PROVIDERS: ATTEND Internal Medicine | DX: Z79.2 Long term (current) use of antibiotics (principal) ==

== ENCOUNTER → 2016-08-30 | Outpatient (CLI) | payer OTHER ==
[2016-08-30 09:17] LABS: HEMATOCRIT 35.5 % (42-52); MEAN CELL VOLUME 82.6 fL (80-100); MEAN CORPUSCULAR HEMOGLOBIN 26.5 pg (25-34); MEAN CORPUSCULAR HGB CONC 32.1 g/dl (32-36); MEAN PLATELET VOLUME 8.7 fL (7.4-10.4); PLATELET COUNT 411 K/uL (130-400); WHITE BLOOD COUNT 6.42 K/uL (4.8-10.8)
[2016-08-30 09:23] LABS: BLOOD UREA NITROGEN 9 mg/dl (7-18); CREATININE 0.59 mg/dl (0.60-1.40); GLUCOSE 90 mg/dl (70-99)
[2016-08-30 09:24] LABS: BUN/CREATININE RATIO 14.9 (10-20); CALCIUM 9.2 mg/dl (8.5-10.1); CARBON DIOXIDE 27 mmol/L (21-32); CHLORIDE 99 mmol/L (98-107); POTASSIUM 4.1 mmol/L (3.5-5.1); SODIUM 135 mmol/L (136-145)
== END ==
LOC: C.LABCC 08:59
PROVIDERS: ATTEND Internal Medicine
DX: Z51.81 Encounter for therapeutic drug level monitoring (principal); Z79.2 Long term (current) use of antibiotics

== ENCOUNTER → 2016-09-01 | Outpatient (CLI) | payer OTHER | END | disposition home or self-care (01) | LOC: C.LABCC 17:26 | PROVIDERS: ATTEND Internal Medicine | DX: L08.9 Local infection of the skin and subcutaneous tissue, unspecified (principal) ==

== ENCOUNTER → 2016-09-02 | Outpatient (CLI) | payer OTHER ==
[~2016-09-02] MED LIST changes: +BENZ-89 PO; -CGN1 PO
== END ==
LOC: C.LABCC 09:54
PROVIDERS: ATTEND Internal Medicine
DX: B99.9 Unspecified infectious disease (principal); T14.8 Other injury of unspecified body region; X58.XXXA Exposure to other specified factors, initial encounter; Z79.2 Long term (current) use of antibiotics

== ENCOUNTER → 2016-09-03 | Outpatient (CLI) | payer OTHER ==
[2016-09-03 08:33] LABS: CHOLESTEROL/HDL RATIO 3.7
== END ==
LOC: C.LABCC 07:50
PROVIDERS: ATTEND Internal Medicine
DX: I10 Essential (primary) hypertension (principal); R56.9 Unspecified convulsions

== ENCOUNTER → 2016-09-03 | Outpatient (CLI) | payer OTHER ==
[2016-09-04 08:47] LABS: BLOOD UREA NITROGEN 10 mg/dl (7-18); BUN/CREATININE RATIO 18.5 (10-20); CALCIUM 8.6 mg/dl (8.5-10.1); CARBON DIOXIDE 26 mmol/L (21-32); CHLORIDE 97 mmol/L (98-107); CREATININE 0.55 mg/dl (0.60-1.40); GLUCOSE 106 mg/dl (70-99); POTASSIUM 4.5 mmol/L (3.5-5.1); SODIUM 132 mmol/L (136-145)
== END ==
LOC: C.LABCC 08:30
PROVIDERS: ATTEND Internal Medicine
DX: Z51.81 Encounter for therapeutic drug level monitoring (principal); Z79.2 Long term (current) use of antibiotics; L03.90 Cellulitis, unspecified

== ENCOUNTER → 2016-09-05 | Outpatient (CLI) | payer OTHER | LOC: C.LABCC 05:45 | PROVIDERS: ATTEND Internal Medicine | DX: Z51.81 Encounter for therapeutic drug level monitoring (principal); Z79.2 Long term (current) use of antibiotics; M86.9 Osteomyelitis, unspecified ==

== ENCOUNTER → 2016-09-06 | Outpatient (CLI) | payer OTHER | LOC: C.LABCC 17:58 | PROVIDERS: ATTEND Internal Medicine | DX: L03.90 Cellulitis, unspecified (principal) ==

== ENCOUNTER → 2016-09-07 | Outpatient (CLI) | payer OTHER | LOC: C.LABCC 17:27 | PROVIDERS: ATTEND Internal Medicine | DX: L03.90 Cellulitis, unspecified (principal) ==

== ENCOUNTER → 2016-09-08 | Outpatient (CLI) | payer OTHER | LOC: C.LABCC 20:15 | PROVIDERS: ATTEND Internal Medicine | DX: Z51.81 Encounter for therapeutic drug level monitoring (principal); Z79.2 Long term (current) use of antibiotics; L03.90 Cellulitis, unspecified; L89.624 Pressure ulcer of left heel, stage 4; L89.620 Pressure ulcer of left heel, unstageable; M86.672 Other chronic osteomyelitis, left ankle and foot; F17.210 Nicotine dependence, cigarettes, uncomplicated; F31.9 Bipolar disorder, unspecified; I73.9 Peripheral vascular disease, unspecified; I10 Essential (primary) hypertension; C34.11 Malignant neoplasm of upper lobe, right bronchus or lung; I31.3 Pericardial effusion (noninflammatory); B99.9 Unspecified infectious disease; T14.8 Other injury of unspecified body region; X58.XXXA Exposure to other specified factors, initial encounter; Z79.82 Long term (current) use of aspirin; Z79.899 Other long term (current) drug therapy ==

== ENCOUNTER → 2016-09-10 | Outpatient (CLI) | payer OTHER | LOC: C.LABCC 18:30 | PROVIDERS: ATTEND Internal Medicine | DX: Z51.81 Encounter for therapeutic drug level monitoring (principal); Z79.2 Long term (current) use of antibiotics ==

== ENCOUNTER → 2016-09-12 | Outpatient (CLI) | payer OTHER | LOC: C.LABCC 11:18 | PROVIDERS: ATTEND Internal Medicine | DX: L03.116 Cellulitis of left lower limb (principal) ==

== ENCOUNTER → 2016-09-13 | Outpatient (CLI) | payer OTHER | LOC: C.LABCC 20:30 | PROVIDERS: ATTEND Internal Medicine | DX: Z51.81 Encounter for therapeutic drug level monitoring (principal); Z79.2 Long term (current) use of antibiotics; Z86.14 Personal history of Methicillin resistant Staphylococcus aureus infection ==

== ENCOUNTER → 2016-09-13 | Outpatient (CLI) | payer OTHER ==
[2016-09-13 09:20] LABS: BLOOD UREA NITROGEN 11 mg/dl (7-18); BUN/CREATININE RATIO 14.7 (10-20); CALCIUM 8.8 mg/dl (8.5-10.1); CARBON DIOXIDE 26 mmol/L (21-32); CHLORIDE 98 mmol/L (98-107); CREATININE 0.73 mg/dl (0.60-1.40); GLUCOSE 110 mg/dl (70-99); SODIUM 133 mmol/L (136-145)
== END ==
LOC: C.LABCC 08:16
PROVIDERS: ATTEND Internal Medicine
DX: L03.90 Cellulitis, unspecified (principal)

== ENCOUNTER → 2016-09-15 | Outpatient (CLI) | payer OTHER | LOC: C.LABCC 12:28 | PROVIDERS: ATTEND Internal Medicine | DX: L89.620 Pressure ulcer of left heel, unstageable (principal) ==

== ENCOUNTER → 2016-09-17 | Outpatient (CLI) | payer OTHER | LOC: C.LABCC 12:44 | PROVIDERS: ATTEND Internal Medicine | DX: L03.90 Cellulitis, unspecified (principal) ==

== ENCOUNTER → 2016-09-21 | Outpatient (CLI) | payer OTHER ==
[2016-09-21 08:48] LABS: HEMATOCRIT 29.8 % (42-52); MEAN CELL VOLUME 75.8 fL (80-100); MEAN CORPUSCULAR HEMOGLOBIN 25.7 pg (25-34); MEAN CORPUSCULAR HGB CONC 33.9 g/dl (32-36); MEAN PLATELET VOLUME 8.7 fL (7.4-10.4); PLATELET COUNT 198 K/uL (130-400); RED BLOOD COUNT 3.93 M/uL (4.7-6.1); WHITE BLOOD COUNT 3.61 K/uL (4.8-10.8)
[2016-09-21 08:57] LABS: BLOOD UREA NITROGEN 12 mg/dl (7-18); BUN/CREATININE RATIO 14.8 (10-20); CARBON DIOXIDE 24 mmol/L (21-32); CHLORIDE 93 mmol/L (98-107); CREATININE 0.81 mg/dl (0.60-1.40); GLUCOSE 130 mg/dl (70-99); POTASSIUM 3.8 mmol/L (3.5-5.1); SODIUM 127 mmol/L (136-145)
[2016-09-21 09:35] LABS: CALCIUM 8.5 mg/dl (8.5-10.1)
== END ==
LOC: C.LABCC 08:32
PROVIDERS: ATTEND Internal Medicine
DX: L03.90 Cellulitis, unspecified (principal); D64.9 Anemia, unspecified; Z79.2 Long term (current) use of antibiotics

== ENCOUNTER 2016-09-28 14:35 | Inpatient (IN) | payer OTHER ==
[~2016-09-28] VITALS: Ht 172.7 cm; Wt 83.4 kg
[~2016-09-28 14:35] MED LIST changes: -ACET-1256 PO; -ARTIOIN OP; -ASCA500 PO; -BISA10SU38 PR; -BUPR-83 PO; -CIPR-255 PO; -CLOTCRE33 TOP; -CPRS5005 PO; -CYAN10005 PO; -DIVA500T5 PO; -DOCU100C31 PO; -HYDR-3126 PO; -LINE1TAB2 PO; -LINE1TAB6 PO; -LORA-741 PO; -MELA1TAB54 PO; -MOMLX PO; -MULTTAB63 PO; -PRED10TA PO; -PRLSR20 PO; -QUET1TAB30 PO; -SNTO30 EXT; -TEMA15CA4 PO; -TRAM-10 PO; -VANC1INJ71 IV; -WLLSR100 PO; -ZSYI45 IV; -[UNRECOGNIZED DRUG - CODE] IV
[2016-09-28] MEDS ORDERED: SODIUM CHLORIDE 0.9% 1000ML 1,000 ML IV STA (15:05)
[2016-09-28] MEDS ORDERED: FENTANYL CITRATE INJ 50 MCG/1 ML 2 ML VIAL IV STA (15:05)
[2016-09-28] MEDS ORDERED: MOMLX PO (15:23)
[2016-09-28] MEDS ORDERED: DIVA500T59 PO (15:23)
[2016-09-28] MEDS ORDERED: FOLI1TAB7 PO (15:23)
[2016-09-28] MEDS ORDERED: CIPR-255 PO (15:23)
[2016-09-28] MEDS ORDERED: MULTTAB63 PO (15:23)
[2016-09-28] MEDS ORDERED: BISA10SU38 PR (15:23)
[2016-09-28] MEDS ORDERED: DOCU100C31 PO (15:23)
[2016-09-28] MEDS ORDERED: DUTA0.5C PO (15:23)
[2016-09-28] MEDS ORDERED: ACET-1256 PO (15:23)
[2016-09-28] MEDS ORDERED: TAMS0.4C38 PO (15:23)
[2016-09-28] MEDS ORDERED: ASPI81TA28 PO (15:23)
[2016-09-28] MEDS ORDERED: BUPR-83 PO (15:23)
[2016-09-28] MEDS ORDERED: ASCA500 PO (15:23)
[2016-09-28] MEDS ORDERED: TRAM-10 PO (15:23)
[2016-09-28] MEDS ORDERED: NMN5 PO (15:23)
[2016-09-28] MEDS ORDERED: METO25TA3 PO (15:23)
[2016-09-28] MEDS ORDERED: SODIUM CHLORIDE 0.9% 1000ML 2,000 ML IV STA (15:47)
[2016-09-28 16:08] LABS: BLOOD UREA NITROGEN 32 mg/dl (7-18); BUN/CREATININE RATIO 22.5 (10-20); CALCIUM 8.3 mg/dl (8.5-10.1); CARBON DIOXIDE 26 mmol/L (21-32); CHLORIDE 99 mmol/L (98-107); GLUCOSE 125 mg/dl (70-99); POTASSIUM 4.6 mmol/L (3.5-5.1); SODIUM 131 mmol/L (136-145)
[2016-09-28 16:13] LABS: C-REACTIVE PROTEIN 9.67 mg/dl (0-0.29)
[2016-09-28] MEDS ORDERED: PIPERACILLIN/TAZOBACTAM 4.5 GM/100ML D5W IV STA (16:17)
[2016-09-28 16:20] LABS: HEMATOCRIT 31.9 % (42-52); MEAN CELL VOLUME 76.3 fL (80-100); MEAN CORPUSCULAR HEMOGLOBIN 25.6 pg (25-34); MEAN CORPUSCULAR HGB CONC 33.5 g/dl (32-36); MEAN PLATELET VOLUME 8.7 fL (7.4-10.4); PLATELET COUNT 337 K/uL (130-400); RED BLOOD COUNT 4.18 M/uL (4.7-6.1); WHITE BLOOD COUNT 15.15 K/uL (4.8-10.8)
[2016-09-28] MEDS ORDERED: DiphenhydrAMINE HCL 50 MG/ML VIAL IV STA (16:24)
--- NOTE | 2016-09-28 16:35 | EMERGENCY ROOM VISIT NOTE ---
History Report prepared by Lauren: Teena Nath Under the Supervision of: Dr. Modesto Bailey M.D. First contact with patient: 15:00 Chief Complaint: RASH Stated Complaint: ALLERGIC REACTION History of Present Illness The patient is a 61 year old male who presents to the Emergency Room with complaints of a persistent rash for the past 2 weeks. The rash is present all over his body and is itchy, hot, and sore. He was on vancomycin 2 weeks ago and was told by his doctors that it might have caused his rash. He is not on any antibiotics currently. Source of History: patient Onset: 2 weeks Position: other (skin) Quality: other (rash) Timing: other (persistent) Review of Systems See HPI for pertinent positives & negatives. A total of 10 systems reviewed and were otherwise negative. Past Medical & Surgical Medical Problems: (1) Bipolar disorder (2) Drug reaction (3) HYPOTENSION, LUNG CANCER,PAD,LEFT HEEL ULCER (4) ISCHEMIA L FOOT,PAD,LUNG CA (5) Ischemic rest pain of lower extremity (6) Lung mass Family History Diabetes mellitus FHx: gallbladder disease FHx: heart disease Social History Smoking Status: Never Smoker Alcohol Use: none Drug Use: none Marital Status: Housing Status: lives alone Occupation Status: retired Current/Historical Medications Scheduled Ascorbic Acid (Vitamin C), 500 MG PO BID Aspirin (Aspirin Ec), 81 MG PO QAM Bupropion HCl (Bupropion HCl Sr), 100 MG PO DAILY Ciprofloxacin Hcl (Cipro), 500 MG PO BID Divalproex Sodium (Depakote), 500 MG PO BID Docusate Sodium (Docusate Sodium), 100 MG PO QAM Dutasteride (Avodart), 0.5 MG PO QAM Folic Acid (Folvite), 1 MG PO QAM Memantine (Namenda), 5 MG PO QAM Metoprolol Succinate (Toprol Xl), 25 MG PO QAM Multiple Vitamins W/ Minerals (Therems M), 1 TAB PO QAM Tamsulosin Hcl (Flomax), 0.4 MG PO QPM Tramadol (Ultram), 50 MG PO QPM Scheduled PRN Acetaminophen (Tylenol), 500 MG PO Q6H PRN for Pain or Fever Bisacodyl (Dulcolax), 1 SUPP SD DAILY PRN for Constipation Magnesium Hydroxide (Milk of Magnesia), 30 ML PO DAILY PRN for Constipation Allergies Coded Allergies: Sulfamethoxazole w/Trimethoprim (Verified Allergy, Severe, RASH-HIVES, ) PER FAMILY. Ciprofloxacin (Verified Allergy, Unknown, UNKNOWN, 09/28/16) WAS ON PAST CHART. Vancomycin (Verified Allergy, Unknown, UNKNOWN, 09/28/16) WAS ON PAST CHART. Physical Exam Vital Signs Date Time Temp Pulse Resp B/P Pulse Ox O2 Delivery O2 Flow Rate FiO2 09/28/16 18:00 36.8 94 18 129/80 90 Room Air 09/28/16 17:48 74 22 108/56 91 09/28/16 17:40 90 14 09/28/16 17:35 90 14 09/28/16 17:30 91 17 104/60 09/28/16 17:25 90 21 09/28/16 17:20 90 20 09/28/16 17:15 92 19 09/28/16 17:10 92 18 09/28/16 17:05 92 20 09/28/16 17:00 93 20 117/72 09/28/16 16:55 92 14 09/28/16 16:50 92 29 09/28/16 16:46 114/64 09/28/16 16:45 91 26 09/28/16 16:40 97 27 92 09/28/16 16:35 90 19 09/28/16 16:30 96 29 09/28/16 16:25 90 21 09/28/16 16:20 89 18 09/28/16 16:15 90 29 09/28/16 16:10 88 13 09/28/16 16:05 90 15 09/28/16 16:01 109/76 09/28/16 16:00 91 18 09/28/16 15:55 93 19 09/28/16 15:50 93 27 96 09/28/16 15:45 92 22 09/28/16 15:40 96 17 100 09/28/16 15:35 91 14 98 09/28/16 15:30 95 21 84/50 09/28/16 15:25 99 19 09/28/16 15:20 96 09/28/16 15:20 93 19 09/28/16 15:00 93/64 09/28/16 14:54 100 Room Air 09/28/16 14:47 37.3 99 20 87/56 99 Room Air Physical Exam GENERAL: Patient is uncomfortable appearing and in moderate distress. Ill Appearing HEENT: No acute trauma, normocephalic atraumatic, mucous membranes moist, no nasal congestion, no scleral icterus. NECK: No stridor, no adenopathy, no meningismus, trachea is midline. LUNGS: No dyspnea. Clear to auscultation and equal bilaterally. No wheeze, no rhonchi. HEART: Tachy. No murmurs, rubs, gallops appreciated. ABDOMEN: Soft, nontender, bowel sounds positive, no masses appreciated, no peritonitis. BACK: No midline tenderness, no CVA tenderness EXTREMITIES: Normal motion all extremities, no cyanosis, no edema. Wound vac on left ankle. NEUROLOGIC: Alert and oriented, no acute motor or sensory deficits, no focal weakness, cranial nerves grossly intact. SKIN: Diffuse hives and erythema over entire body. Medical Decision & Procedures ER Provider Diagnostic Interpretation: X ray results are stated below per my interpretation and the radiologist's interpretation. CHEST ONE VIEW PORTABLE CLINICAL HISTORY: Sepsis. Allergic reaction. History of lung cancer. COMPARISON STUDY: Chest radiograph July 31, 2016. FINDINGS: There is no pneumothorax or pleural effusion. A right PICC is in place. The tip is obscured on since exam. Bilateral perihilar opacities have increased since exam of July 31, 2016. Cardiac size is stable. A left suprahilar density could reflect airspace opacity or the known left upper lobe nodule. IMPRESSION: 1. Regression of bilateral perihilar opacities which could reflect pulmonary edema or bilateral pneumonia. Radiographic follow-up is recommended. 2. Left suprahilar opacity which could reflect pulmonary edema, pneumonia or the known left upper lobe nodule. Electronically signed by: Delio Head M.D. 09/28/2016 4:32 PM Dictated Date/Time: 09/28/2016 4:28 PM Laboratory Results Test 09/28/16 00:00 09/28/16 15:08 09/28/16 15:28 09/28/16 15:35 Urine Color YELLOW Urine Appearance CLEAR (CLEAR) Urine pH 6.5 (4.5-7.5) Urine Specific Hoople 1.017 (1.000-1.030) Urine Protein NEG (NEG) Urine Glucose (UA) NEG (NEG) Urine Ketones NEG (NEG) Urine Occult Blood NEG (NEG) Urine Nitrite NEG (NEG) Urine Bilirubin NEG (NEG) Urine Urobilinogen NEG (NEG) Urine Leukocyte Esterase LARGE (NEG) Urine WBC (Auto) 1-5 /hpf (0-5) Urine RBC (Auto) 0-4 /hpf (0-4) Urine Hyaline Casts (Auto) 1-5 /lpf (0-5) Urine Epithelial Cells (Auto) >30 /lpf (0-5) Urine Bacteria (Auto) NEG (NEG) Smudge Cells PRESENT Erythrocyte Sedimentation Rate 23 mm/hr (0-14) Troponin I < 0.015 ng/ml (0-0.045) Valproic Acid (Depakene) Level 57 mcg/ml (50-100) Prothrombin Time 12.5 SECONDS (9.0-12.0) Prothromb Time International Ratio 1.2 (0.9-1.1) Hepatitis C Antibody Screen NEG (NEG) Bedside Lactic Acid Venous 3.31 mmol/L (0.90-1.70) Laboratory results as reviewed by me. Medications Administered Medications (Trade) Dose Ordered Sig/Rinku Route Start Time Stop Time Status Last Admin Dose Admin Sodium Chloride (Nss 1000ml) 1,000 ml @ 999 mls/hr Q1H1M STAT IV 09/28/16 15:05 09/28/16 16:05 DC 09/28/16 15:05 999 MLS/HR Fentanyl Citrate 50 mcg 50 mcg NOW STAT IV 09/28/16 15:05 09/28/16 15:07 DC 09/28/16 15:31 50 MCG Sodium Chloride (Nss 1000ml) 2,000 ml @ 999 mls/hr Q2H1M STAT IV 09/28/16 15:47 09/28/16 17:47 DC 09/28/16 15:47 999 MLS/HR Piperacillin Sod/ Tazobactam Sod (Zosyn Iv) 4.5 gm NOW STAT IV 09/28/16 16:17 09/28/16 16:18 DC 09/28/16 16:45 4.5 GM Diphenhydramine HCl 50 mg 50 mg NOW STAT IV 09/28/16 16:24 09/28/16 16:25 DC 09/28/16 16:31 50 MG Azithromycin/ Dextrose (Zithromax IV/D5 250ml) 255 ml @ 125 mls/hr ONE ONCE IV 4/25/17 16:45 09/28/16 18:47 DC 09/28/16 17:42 125 MLS/HR Acetaminophen (Tylenol Tab) 650 mg Q4H PRN PO 09/28/16 19:00 10/28/16 18:59 09/29/16 23:54 650 MG Hydroxyzine HCl (Vistaril Tab) 25 mg Q6H PRN PO 09/28/16 19:00 10/28/16 18:59 09/30/16 05:16 25 MG ECG Indication: other (sepsis) Rate (beats per minute): 92 Rhythm: sinus rhythm Findings: no acute ischemic change, no ectopy ED Course 1501: The patient was evaluated in room A12B. A complete history and physical exam was performed. 1505: Fentanyl Inj 50 mcg IV, NSS 1000 ml @ 999 mls/hr IV. 1547: NSS 2000 ml @ 999 mls/hr IV. 1617: Zosyn Iv 4.5 gm IV. 1622: I reevaluated the patient. His blood pressure has improved after the initial fluid bolus. He will be given Benadryl. 1624: Benadryl Inj 50 mg IV. 1639: I discussed the patient's case Dr. Thomson, [facility] [place] hospitalist. The patient will be evaluated for further treatment and disposition. 1645: Azithromycin 500 mg/Dextrose 255 ml @ 125 mls/hr IV. 1659: Upon reevaluation, the patient is resting comfortably. I discussed results and treatment plan with the patient. He verbalized understanding and agreement with the treatment plan. The patient will be evaluated for further management. 1745: I reevaluated the patient. He is feeling better after the Benadryl. His blood pressure remains stable. He denies any current SOB. Medical Decision Differential: Contact Dermatitis, Viral Exanthem, Urticaria, Allergic Reaction, SJS, Toxic Epidermal Necrolysis, Erythema Multiforme, Cellulitis, Scabies, HSV, Varicella, Zoster, Eczema, Staph Scalded Skin, Fungal, amongst other pathologies entertained. 61 yr old arrives for evaluation of rash from local [facility]. Unclear if this is allergic reaction as he has been on similar abx to previous reactions for the last 2 weeks for which he has had rash. However, on arrival he is hypotensive, mildly tachycardic and ill appearing. Blood cultures and lactic acid obtained. LA elevated. BP improved with initial fluid bolus thus avoiding pressors (of note has had low BP in past though this is persistent initially). Given fentanyl for discomfort along with benadryl. May have pneumonia vs this is from osteo getting out of control with recent abx changes. Zosyn/Azithro given allergies to start with. Many repeat evals and patient doing much improved from arrival. Consults Time Called: 1626 Consulting Physician: Dr. Thomson, [facility] - hospitalist Returned Call: [phone] Discussed the patient's case. The patient will be evaluated for further treatment and disposition. Impression Primary Impression: Sepsis Additional Impressions: Allergic reaction Osteomyelitis Critical Care I have personally spent greater than 40 minutes of critical care time in the direct management of this patient. This was a life/limb threatening event. This includes time spent evaluating patient, direct bedside care, chart review, placing orders, interpretation of diagnostic studies, discussion with consultants, patient, and family members, as well as other required patient management activities. This 40 minutes is in excess of all separately billable procedures. Scribe Attestation The scribe's documentation has been prepared under my direction and personally reviewed by me in its entirety. I confirm that the note above accurately reflects all work, treatment, procedures, and medical decision making performed by me. Departure Information Dispostion Being Evaluated By Hospitalist Referrals [facility] (PCP) Patient Instructions My [facility] Problem Qualifiers Primary Impression: Sepsis Sepsis type: sepsis due to unspecified organism Qualified Codes: A41.9 - Sepsis, unspecified organism Additional Impressions: Allergic reaction Encounter type: initial encounter Qualified Codes: T78.40XA - Allergy, unspecified, initial encounter Osteomyelitis Osteomyelitis type: unspecified type Osteomyelitis location: foot Laterality: left Qualified Codes: M86.9 - Osteomyelitis, unspecified
[2016-09-28] MEDS ORDERED: AZITHROMYCIN IV 500 MG in DEXTROSE 5% 250ML 250 ML IV ONE (16:45)
--- NOTE | 2016-09-28 16:54 | Pharmacy Progress Note ---
ED Pharmacist Progress Note Date of Service: Sep 28, 2016. Pharmacist evaluation of possible medication allergy and selection of antibiotic for sepsis 2nd pulmonary source Subjective * Patient provided verbal consent for me to call both of his sisters * Per Ale (patient's sister, works as pharmacy technician inpatient at [facility] [employer]): Patient had recent reaction - thought it was to Bactrim but was not sure. Noted her sister Tanna would know more. * Per Tanna (patient's sister, is a nurse) : Confirmed reaction was to either ciprofloxacin or vancomycin. Notes no knowledge of Bactrim allergy Objective * Per ID notes 09/23/16: was on ciprofloxacin, vancomycin for osteomyelitis. Developed diffuse, pruritic, maculo-papular rash, abx discontinued 09/21/16. Started Bactrim. * Per Cabell Crest *paperwork*: Patient was still on ciprofloxacin and did not reflect recent change to Bactrim. * Per Cabell Crest *nurse*: I spoke tom Valle 09/28 who noted the following: * Paperwork sent was not correct and that the ciprofloxacin was discontinued and patient was started on Bactrim. Patient received 09/23-09/27. * Patient had been on ciprofloxacin and vancomycin x1 month prior to his reaction evaluated by ID on 09/23/16 * Antibiotic administration history (at [facility]) * Received Bactrim x10 days for cellulitis during admission July 2016 * Received Augmentin, cefazolin, and ceftriaxone before Assessment * Antibiotic allergies * Per ID, concerned for true allergy to ciprofloxacin and/or vancomycin. The reaction was about 1 month after starting both. * Despite conflicting reports, patient has not been receiving ciprofloxacin since ID suggested discontinuation and has instead been on Bactrim * Patient is unlikely to have a true allergy to sulfa (despite sister Ale's report) * PNA coverage * Patient requires broad-spectrum coverage for PNA including atypical coverage * Double pseudomonas coverage difficult as patient should not likely receive fluoroquinolones 2nd possible allergy * May require MRSA coverage - can't use vancomycin 2nd possible allergy, daptomycin will not cover pulmonary source Recommendation * Zosyn for broad-spectrum coverage * Azithromycin for atypical coverage * MRSA nasal swab. Consider linezolid if positive. * ID consult
[2016-09-28 17:30] LABS: COMPLETE YES; ECHINOCYTES 1+; EOSINOPHIL % 21.2 %; LYMPH ABS # 1.88 K/uL (1.2-3.4); LYMPHOCYTE % 12.4 %; META ABS # 0.27 K/uL (0-0); METAMYELOCYTE % 1.8 %; MYELOCYTE % 0.9 %; NEUTROPHILS % 54.9 %; SMUDGE CELLS PRESENT
[2016-09-28 18:00] VITALS: BP 129/80; PULSE 94; TEMP 36.8; O2SAT 90; O2SAT 91; Ht 172.7 cm; Wt 83.4 kg
[2016-09-28] MEDS ORDERED: BISACODYL 10 MG SUPP PR PRN (19:00)
[2016-09-28] MEDS ORDERED: NITROGLYCERIN 0.4 MG SL PER TAB CHARGE SL PRN (19:00)
[2016-09-28] MEDS ORDERED: MAGNESIUM HYDROXIDE SUSP 30 ML UDC PO PRN ×2 (19:00)
[2016-09-28] MEDS ORDERED: POLYETHYLENE (MIRALAX) 17 GM PACK PO PRN (19:00)
[2016-09-28] MEDS ORDERED: ONDANSETRON INJ 2 MG/ML 2 ML VIAL IV PRN (19:00)
[2016-09-28] MEDS ORDERED: ALUMINUM/MAGNESIUM/SIMETH (MAALOX MAX) 30 ML UDC PO PRN (19:00)
[2016-09-28] MEDS ORDERED: METHYLPREDNISOLONE IV 60 MG in SYRINGE 0 ML IV ONE (19:15)
[2016-09-28] MEDS ORDERED: WLLSR100 PO (19:44)
[2016-09-28 20:16] LABS: INR 1.2 (0.9-1.1); PROTHROMBIN TIME (PATIENT) 12.5 SECONDS (9.0-12.0)
[2016-09-28 21:45] VITALS: PULSE 61; O2SAT 93
[2016-09-28] MEDS: ALBUT/IPRATROP 3MG/0.5MG NEB 3 ML VIAL INH SCH (21:45)
[2016-09-28] MEDS: ASCORBIC ACID 500 MG TAB PO SCH (21:51)
[2016-09-28] MEDS: TAMSULOSIN HCL 0.4 MG CAP PO SCH (21:51)
[2016-09-28] MEDS: GUAIFENESIN 600 MG TABCR PO SCH (21:52)
[2016-09-28] MEDS: HEPARIN SOD 5000 UNIT/0.5 ML CARP SQ SCH (21:53)
[2016-09-28] MEDS: DIVALPROEX SODIUM 500 MG DELAY RELEASE TAB PO SCH (21:53)
--- NOTE | 2016-09-28 21:53 | DIAGNOSTIC IMAGING REPORT ---
CHEST ONE VIEW PORTABLE CLINICAL HISTORY: confirm picc line placement COMPARISON STUDY: Chest radiograph September 28, 2016 at 3:55 PM. FINDINGS: The tip of the right PICC is partially obscured but likely projects of the SVC. There is no pneumothorax or pleural effusion. Bilateral perihilar opacities persist. Cardiac size is normal. IMPRESSION: 1. Tip of right PICC partially obscured but likely within the SVC. 2. Persistent bilateral perihilar opacities which could reflect pulmonary edema or pneumonia. Electronically signed by: Delio Head M.D. 09/28/2016 9:51 PM Dictated Date/Time: 09/28/2016 9:50 PM
[2016-09-28 21:59] LABS: URINE APPEARANCE CLEAR (CLEAR); URINE BILIRUBIN NEG (NEG); URINE COLOR YELLOW; URINE EPITHELIAL CELL AUTO >30 /lpf (0-5); URINE NITRITE NEG (NEG); URINE PH 6.5 (4.5-7.5); URINE SPECIFIC GRAVITY 1.017 (1.000-1.030); UROBILINOGEN NEG (NEG); ZZUR CULT IF INDIC CLEAN CATCH NO
[2016-09-28 22:05] LABS: MANUAL MICROSCOPIC REQUIRED? NO; REVIEW REQ? NO
--- NOTE | 2016-09-28 23:18 | History and Physical ---
History & Physical Date & Time of Service: Sep 28, 2016 at 19:00 Chief Complaint: Allergic Reaction Primary Care Physician: Radha Saavedra History of Present Illness Source: patient, fdc (records ) 61yo male with multiple medical problems including PAD, COPD, stage 3b lung cancer, left heel stage 4 ulcer with underlying osteomyelitis, previous tobacco dependence, and bipolar disorder presents from [facility] with complaints of a diffuse, pruritic, and somewhat painful rash. He reports the rash has been present "for about a week" but some reports indicate even longer. He has been taking IV vancomycin and oral cipro for his stage 4 left heel ulcer/ osteomyelitis for some time - managed by Dr. Andrea Waite from infectious disease. Records from the SNF indicate that the vanco/cipro were stopped on 09/21/16. On 09/23/16, after a phone consultation with Dr. Waite's office, bactrim was started by mouth. He was also started on a medrol dose pack about that time due to the ongoing rash. Despite stopping the vanco/cipro about 1 week ago and despite using the steroids the rash has persisted. In fact, the patient believes the rash has worsened. Records also indicate that the bactrim was stopped on . The left heel ulcer has been treated with a wound vac with continuous suction. He has a RUE PICC line in place. In addition to the above the patient reports a lingering cough for 1-2 weeks. The cough is mainly dry. He mentions some very mild dyspnea. Past Medical/Surgical History PMH: 1. stage IIIb lung cancer (adenocarcinoma) - s/p chemo, xrt - dx 01/2016 2. previous tobacco dependence - 150 pack years 3. HTN 4. PAD 5. peripheral neuropathy 6. previous alcohol abuse - now sober 7. chronic microcytic anemia 8. chronic hyponatremia - SIADH suspected 9. 2013 - scrotal cellulitis 10. h/o etoh withdrawal seizure in 2011 11. stage 4 pressure ulcer, left heel, with underlying osteomyelitis of calcaneous 12. bipolar disorder 13. COPD 14. BPH PSH: 1. vasectomy 2. fem-fem bypass with right percutaneous transluminal angioplasty - 07/2016 - Dr. David Ac 3. left popliteal artery occlusion - PTCA/stent - 07/27/16 Family History Diabetes mellitus FHx: gallbladder disease FHx: heart disease mother - in her 70s from [place] father - age 85 from dementia Social History Smoking Status: Former Smoker (3ppd x 50 years ) Alcohol Use: heavy (in the past ) Drug Use: none Marital Status: Housing status: fdc Occupational Status: retired Immunizations History of Influenza Vaccine: Yes History of Tetanus Vaccine?: Unknown History of Pneumococcal: No History of Hepatitis B Vaccine: Unknown Multi-Drug Resistant Organisms History of MDRO: No Allergies Coded Allergies: Sulfamethoxazole w/Trimethoprim (Verified Allergy, Severe, RASH-HIVES, ) PER FAMILY. Ciprofloxacin (Verified Allergy, Unknown, UNKNOWN, 09/28/16) WAS ON PAST CHART. Vancomycin (Verified Allergy, Unknown, UNKNOWN, 09/28/16) WAS ON PAST CHART. Home Medications Scheduled Ascorbic Acid (Vitamin C), 500 MG PO BID Aspirin (Aspirin Ec), 81 MG PO QAM Bupropion HCl (Bupropion HCl Sr), 100 MG PO DAILY Ciprofloxacin Hcl (Cipro), 500 MG PO BID Divalproex Sodium (Depakote), 500 MG PO BID Docusate Sodium (Docusate Sodium), 100 MG PO QAM Dutasteride (Avodart), 0.5 MG PO QAM Folic Acid (Folvite), 1 MG PO QAM Memantine (Namenda), 5 MG PO QAM Metoprolol Succinate (Toprol Xl), 25 MG PO QAM Multiple Vitamins W/ Minerals (Therems M), 1 TAB PO QAM Tamsulosin Hcl (Flomax), 0.4 MG PO QPM Tramadol (Ultram), 50 MG PO QPM Scheduled PRN Acetaminophen (Tylenol), 500 MG PO Q6H PRN for Pain or Fever Bisacodyl (Dulcolax), 1 SUPP OR DAILY PRN for Constipation Magnesium Hydroxide (Milk of Magnesia), 30 ML PO DAILY PRN for Constipation Review of Systems Constitutional: + weight loss, No chills, No fatigue, No fever, No sweats Eyes: No worsening of vision ENT: No nasal symptoms, No sore throat, No trouble swallowing Respiratory: + cough, + shortness of breath, + wheezing, No hemoptysis, No sputum Cardiovascular: No PND, No chest pain, No edema, No orthopnea, No palpitations Abdomen: No GI bleeding, No diarrhea, No nausea, No pain, No vomiting Musculoskeletal: No joint pain, No muscle pain Genitourinary - Male: No dysuria, No hematuria Neurologic: + memory loss Psychiatric: + anxiety Endocrine: No fatigue Hematologic / Lymphatic: No abnormal bleeding/bruising Integumentary: + color change, + itch, + rash Physical Exam Vital Signs Date Time Temp Pulse Resp B/P Pulse Ox O2 Delivery O2 Flow Rate FiO2 09/28/16 18:00 91 Room Air 09/28/16 17:48 74 22 108/56 91 09/28/16 17:40 90 14 09/28/16 17:35 90 14 09/28/16 17:30 91 17 104/60 09/28/16 17:25 90 21 09/28/16 17:20 90 20 09/28/16 17:15 92 19 09/28/16 17:10 92 18 09/28/16 17:05 92 20 09/28/16 17:00 93 20 117/72 09/28/16 16:55 92 14 09/28/16 16:50 92 29 09/28/16 16:46 114/64 09/28/16 16:45 91 26 09/28/16 16:40 97 27 92 09/28/16 16:35 90 19 09/28/16 16:30 96 29 09/28/16 16:25 90 21 09/28/16 16:20 89 18 09/28/16 16:15 90 29 09/28/16 16:10 88 13 09/28/16 16:05 90 15 09/28/16 16:01 109/76 09/28/16 16:00 91 18 09/28/16 15:55 93 19 09/28/16 15:50 93 27 96 09/28/16 15:45 92 22 09/28/16 15:40 96 17 100 09/28/16 15:35 91 14 98 09/28/16 15:30 95 21 84/50 09/28/16 15:25 99 19 09/28/16 15:20 96 09/28/16 15:20 93 19 09/28/16 15:00 93/64 09/28/16 14:54 100 Room Air 09/28/16 14:47 37.3 99 20 87/56 99 Room Air General Appearance: no apparent distress, + pertinent finding (looks older than stated age) Head: normocephalic, atraumatic Eyes: PERRL, EOMI ENT: hearing grossly normal, TMs normal, pharynx normal Neck: supple, no adenopathy, thyroid normal, no JVD Respiratory/Chest: no respiratory distress, no accessory muscle use, + decreased breath sounds (bases), + crackles (bases), + wheezing (diffuse b/l ) Cardiovascular: regular rate, rhythm, no gallop, no murmur, + abnormal peripheral pulses (1+ or less in both feet ) Abdomen/GI: normal bowel sounds, non tender, soft, no organomegaly Genitourinary - Male: + penile abnormality (rash on head of penis) Extremities/Musculoskelatal: + pedal edema (trace b/l ), + slow capillary refill (both hands and feet) Neurologic/Psych: no motor/sensory deficits, alert, oriented x 3 Skin: + rash (diffuse, body-wide raised erythematous rash; numerous areas of confluence, especially the left thigh, torso, abdominal wall, and back; palms/ soles also affected by rash; scalp with rash; some rash on face as well; there is NO MUCOSAL INVOLVEMENT of the eyes or mouth; there are no hives; there are no target lesions to suggest EM), + pertinent finding (PICC line - RUE - clean, no erythema) Lymphatic: no adenopathy (cervical) wound vac in place over left heel fingers of both hands modestly dusky in appearance with cap refill about 2 secs Diagnostics Laboratory Results Results Past 24 Hours Test 09/28/16 15:08 09/28/16 15:28 09/28/16 15:35 Range/Units White Blood Count 15.15 4.8-10.8 K/uL Red Blood Count 4.18 4.7-6.1 M/uL Hemoglobin 10.7 14.0-18.0 g/dL Hematocrit 31.9 42-52 % Mean Corpuscular Volume 76.3 80-100 fL Mean Corpuscular Hemoglobin 25.6 25-34 pg Mean Corpuscular Hemoglobin Concent 33.5 32-36 g/dl Platelet Count 337 130-400 K/uL Mean Platelet Volume 8.7 7.4-10.4 fL RDW Standard Deviation 50.6 36.4-46.3 fL RDW Coefficient of Variation 18.0 11.5-14.5 % Neutrophils % (Manual) 54.9 % Lymphocytes % (Manual) 12.4 % Monocytes % (Manual) 8.8 % Eosinophils % (Manual) 21.2 % Metamyelocytes % 1.8 % Myelocytes % 0.9 % Neutrophils # (Manual) 8.32 1.4-6.5 K/uL Total Absolute Neutrophils 8.32 1.4-6.5 K/uL Lymphocytes # (Manual) 1.88 1.2-3.4 K/uL Total Absolute Lymphocytes 1.88 1.2-3.4 K/uL Monocytes # (Manual) 1.33 0.11-0.59 K/uL Eosinophils # (Manual) 3.21 0-0.5 K/uL Metamyelocytes # 0.27 0-0 K/uL Myelocytes # 0.14 0-0 K/uL Smudge Cells PRESENT Echinocytes 1+ Erythrocyte Sedimentation Rate 23 0-14 mm/hr Sodium Level 131 136-145 mmol/L Potassium Level 4.6 3.5-5.1 mmol/L Chloride Level 99 98-107 mmol/L Carbon Dioxide Level 26 21-32 mmol/L Anion Gap 6.0 3-11 mmol/L Blood Urea Nitrogen 32 7-18 mg/dl Creatinine 1.40 0.60-1.40 mg/dl Est Creatinine Clear Calc Drug Dose 58.1 ml/min Estimated GFR () 62.0 Estimated GFR (Non- 53.5 BUN/Creatinine Ratio 22.5 10-20 Random Glucose 125 70-99 mg/dl Calcium Level 8.3 8.5-10.1 mg/dl Troponin I < 0.015 0-0.045 ng/ml C-Reactive Protein 9.67 0-0.29 mg/dl Valproic Acid (Depakene) Level 57 50-100 mcg/ml Bedside Lactic Acid Venous 3.31 0.90-1.70 mmol/L Microbiology Results 09/28/16 Blood Culture, Received Pending 09/28/16 Blood Culture, Received Pending Diagnostic Radiology CXR: IMPRESSION: 1. Regression of bilateral perihilar opacities which could reflect pulmonary edema or bilateral pneumonia. Radiographic follow-up is recommended. 2. Left suprahilar opacity which could reflect pulmonary edema, pneumonia or the known left upper lobe nodule. EKG EKG - my reading - NSR, nl axis, nl intervals, no ST changes Impression Assessment and Plan 61yo male with multiple medical problems including PAD, COPD, stage 3b lung cancer, left heel stage 4 ulcer with underlying osteomyelitis, previous tobacco dependence, and bipolar disorder presenting with a diffuse, raised, erythematous , severely pruritic rash present for 1-2 weeks. The rash started in the setting of using IV vancomycin and cipro for his left foot osteomyelitis. He has 20% eosinophils on differential highly suggestive of drug allergy. His rash is not consistent with Wilson-Paul Syndrome or erythema multiforme. Leukocytoclastic vasculitis is possible but the rash doesn't have the typical petechial appearance. He does not have burrowing to suggest scabies. 1. suspected drug reaction - likely due to IV vanco, although cipro is also possible. Both added to his allergy list. Gave IV solumedrol x 1 in the ER and will continue this on the tele unit. Repeat CBC w/ diff in the AM. Serial exams. If no improvement then consider derm consultation. 2. left foot/heel stage 4 ulcer with underlying osteomyelitis - continue wound vac; consult wound care team and provider in AM. He has had 5 different antibiotics in the last 7-10 days (received IV zosyn & zithromax in ER today, cipro/vanco/bactrim at the SNF). Will hold any further antibiotics except zosyn until ID consult is obtained in the AM. 3. question of b/l pneumonia - received zosyn/zithromax in ER today. He has had pulmonary symptoms for 1-2 weeks. Will ask ID for their opinion for IV antibiotics that will cover the lungs & foot. Tolerated zosyn in the ER - continue this for now until ID consultation. Supportive care in meantime. IV steroids for #1 will help with COPD exacerbation. 4. COPD w/ exacerbation - IV steroids, nebs, mucinex, O2 if needed. Incentive spirometry. 5. hyponatremia - likely SIADH from his lung cancer. This is chronic. Fluid restrict to 1500cc/day. No salt tabs at this time since Na has been stable at current level. 6. anemia - likely due to anemia of chronic disease from cancer, his left foot osteomyelitis, etc. CBC every 2-3 days and/or PRN for stability purposes. 7. smudge cells on CBC - repeat the cbc in the AM. If still present then get a formal peripheral smear from pathology. 8. DVT proph - heparin TID. 9. HTN - hold beta alejandrina due to low BP. 10. sepsis - 2nd to possible pneumonia, left foot infection. Cannot rule out that some of his low-normal BP is from his systemic drug reaction. Received 2 fluid boluses in the ER w/ improved BPs. 11. bipolar d/o - on depakote. Level is therapeutic. No symptoms at this time. 12. stage 3b lung cancer - follows w/ [facility]. 13. PAD - continue asa; really should be on statin agent as well. 14. BPH - cont flomax & finasteride. Non-weightbearing to left leg. PT, OT when able. Level of Care Telemetry Advanced Directives Existing Living Will: No Existing Power of Decal Cutter: No Resuscitation Status FULL RESUSCITATION VTE Prophylaxis VTE Risk Assessment Done? Y/N: Yes Risk Level: High Given or contraindicated: Unfractionated heparin SQ Social Service Consult Lives in [facility] Note total time 70 minutes Additional Copies To Andrea Waite MD; Allenton Gotham; Kingston Flores M.D.; Fam Villafana, DO
[2016-09-29] VITALS (10 sets, daily range): BP systolic 90–132; BP diastolic 50–75; PULSE 78–92; TEMP 36.3–37.1; O2SAT 91–99
[2016-09-29] MEDS ORDERED: SODIUM CHLORIDE 0.9% 1000ML 1,000 ML IV ONE
[2016-09-29] MEDS: METHYLPREDNISOLONE IV 60 MG in SYRINGE 0 ML IV SCH ×3 (00:16→23:55)
[2016-09-29] MEDS: hydrOXYzine HCL 25 MG TAB PO PRN ×4 (02:14→21:57)
[2016-09-29] MEDS: PIPERACILL/TAZOBAC IV 3.375 GM in DEXTROSE 5% 100ML 100 ML IV SCH ×3 (02:44→17:49)
[2016-09-29] MEDS ORDERED: PIPERACILL/TAZOBAC CONSULT ACTIVE PRN (02:45)
[2016-09-29] MEDS: HEPARIN SOD 5000 UNIT/0.5 ML CARP SQ SCH ×3 (05:16→20:58)
[2016-09-29 05:57] LABS: HEMATOCRIT 30.2 % (42-52); MEAN CELL VOLUME 76.6 fL (80-100); MEAN CORPUSCULAR HEMOGLOBIN 25.1 pg (25-34); MEAN CORPUSCULAR HGB CONC 32.8 g/dl (32-36); MEAN PLATELET VOLUME 8.4 fL (7.4-10.4); PLATELET COUNT 316 K/uL (130-400); RED BLOOD COUNT 3.94 M/uL (4.7-6.1); WHITE BLOOD COUNT 15.28 K/uL (4.8-10.8)
[2016-09-29 06:25] LABS: BUN/CREATININE RATIO 21.1 (10-20); C-REACTIVE PROTEIN 9.23 mg/dl (0-0.29); CALCIUM 7.8 mg/dl (8.5-10.1); POTASSIUM 4.7 mmol/L (3.5-5.1)
[2016-09-29 06:28] LABS: COMPLETE YES; ECHINOCYTES 2+; EOSINOPHIL % 5.4 %; LYMPH ABS # 0.41 K/uL (1.2-3.4); LYMPHOCYTE % 2.7 %; META ABS # 0.28 K/uL (0-0); METAMYELOCYTE % 1.8 %; MYELOCYTE % 2.7 %; NEUTROPHILS % 86.5 %
[2016-09-29] MEDS: ACETAMINOPHEN 325 MG TAB PO PRN ×3 (07:46→23:54)
[2016-09-29] MEDS: ALBUT/IPRATROP 3MG/0.5MG NEB 3 ML VIAL INH SCH ×3 (08:05→19:45)
[2016-09-29] MEDS: PANTOprazole SOD 40 MG TAB PO SCH (08:22)
[2016-09-29] MEDS: FINASTERIDE 5 MG TAB PO SCH (08:22)
[2016-09-29] MEDS: ASPIRIN 81 MG ECTAB PO SCH (08:23)
[2016-09-29] MEDS: BuPROPion SR 100 MG TABCR PO SCH (08:23)
[2016-09-29] MEDS: DOCUSATE SODIUM 100 MG CAP PO SCH (08:23)
[2016-09-29] MEDS: DIVALPROEX SODIUM 500 MG DELAY RELEASE TAB PO SCH ×2 (08:23→20:57)
[2016-09-29] MEDS: MEMANTINE 5 MG TAB PO SCH (08:23)
[2016-09-29] MEDS: CEROVITE ADV FORMULA TAB PO SCH (08:23)
[2016-09-29] MEDS: GUAIFENESIN 600 MG TABCR PO SCH ×2 (08:24→20:56)
[2016-09-29] MEDS: ASCORBIC ACID 500 MG TAB PO SCH ×2 (09:09→20:57)
--- NOTE | 2016-09-29 12:12 | Medical Consult ---
Consultation Date of Consultation: Sep 29, 2016. Attending Physician: Omid Thomson MD Reason for Consultation: Osteomyelitis left foot and ankle History of Present Illness 61-year-old male well known to me from Infectious Disease consultation at the [facility], with known osteomyelitis of the left heel, with prior cultures positive for methicillin sensitive Staph aureus and group B Streptococcus. He was started several weeks ago on combination of vancomycin and oral ciprofloxacin, but developed diffuse erythematous maculopapular rash. Antibiotics were stopped, and patient was changed to oral Bactrim, but rash has significantly worsened and has become quite spread. Playing of severe pruritus. Has had low-grade fever. Has had some improvement in his left heel wound. Wound Care following patient currently has been changed to IV Zosyn which she is tolerating so far. Currently afebrile. No shortness of breath. Past Medical/Surgical History Medical Problems: (1) Acute bronchitis Status: Acute (2) Allergic reaction Status: Acute (3) Anemia Status: Acute (4) Cellulitis of left lower leg Status: Acute (5) Failure of outpatient treatment Status: Acute (6) Hypertension Status: Acute (7) Hyponatremia Status: Acute (8) Hypotension Status: Acute (9) Left leg cellulitis Status: Acute (10) Left upper quadrant pain Status: Acute (11) Mass of upper lobe of left lung Status: Acute (12) Osteomyelitis Status: Acute (13) Sepsis Status: Acute (14) Shortness of breath Status: Acute (15) Thrush Status: Acute (16) Wound infection Status: Acute Past Medical/Surgical History PMH: 1. stage IIIb lung cancer (adenocarcinoma) - s/p chemo, xrt - dx 01/2016 2. previous tobacco dependence - 150 pack years 3. HTN 4. PAD 5. peripheral neuropathy 6. previous alcohol abuse - now sober 7. chronic microcytic anemia 8. chronic hyponatremia - SIADH suspected 9. 2013 - scrotal cellulitis 10. h/o etoh withdrawal seizure in 2011 11. stage 4 pressure ulcer, left heel, with underlying osteomyelitis of calcaneous 12. bipolar disorder 13. COPD 14. BPH PSH: 1. vasectomy 2. fem-fem bypass with right percutaneous transluminal angioplasty - 07/2016 - Dr. David Ac 3. left popliteal artery occlusion - PTCA/stent - 07/27/16 Family History Diabetes mellitus FHx: gallbladder disease FHx: heart disease Social History Smoking Status: Former Smoker (3ppd x 50 years ) Alcohol Use: heavy (in the past ) Drug Use: none Marital Status: Housing Status: lives alone Occupation Status: retired Allergies Coded Allergies: Sulfamethoxazole w/Trimethoprim (Verified Allergy, Severe, RASH-HIVES, ) PER FAMILY. Ciprofloxacin (Verified Allergy, Unknown, UNKNOWN, 09/28/16) WAS ON PAST CHART. Vancomycin (Verified Allergy, Unknown, UNKNOWN, 09/28/16) WAS ON PAST CHART. Current Inpatient Medications Current Inpatient Medications Medications (Trade) Dose Ordered Sig/Rinku Route Start Time Stop Time Status Last Admin Dose Admin Heparin Sodium (Porcine) (Heparin Sq 5000 Unit/0.5ml) 5,000 unit Q8 SQ 09/28/16 22:00 10/28/16 21:59 09/29/16 05:16 5,000 UNIT Acetaminophen (Tylenol Tab) 650 mg Q4H PRN PO 09/28/16 19:00 10/28/16 18:59 09/29/16 07:46 650 MG Al Hydrox/Mg Hydrox/Simethicone (Maalox Max Susp) 15 ml Q4H PRN PO 09/28/16 19:00 10/28/16 18:59 Magnesium Hydroxide (Milk Of Magnesia Susp) 30 ml Q12H PRN PO 09/28/16 19:00 10/28/16 18:59 Ondansetron HCl (Zofran Inj) 4 mg Q6H PRN IV 09/28/16 19:00 10/28/16 18:59 Nitroglycerin (Nitrostat Tab) 0.4 mg UD PRN SL 09/28/16 19:00 10/28/16 18:59 Polyethylene (Miralax Powder Packet) 17 gm DAILY PRN PO 09/28/16 19:00 10/28/16 18:59 Ascorbic Acid (Vitamin C Tab) 500 mg BID PO 09/28/16 21:00 10/28/16 20:59 09/29/16 09:09 500 MG Aspirin (Ecotrin Tab) 81 mg QAM PO 09/29/16 09:00 10/29/16 08:59 09/29/16 08:23 81 MG Bisacodyl (Dulcolax Supp) 5 mg DAILY PRN SD 09/28/16 19:00 10/28/16 18:59 Bupropion HCl (Wellbutrin-Sr Tab) 100 mg DAILY PO 09/29/16 09:00 10/29/16 08:59 09/29/16 08:23 100 MG Divalproex Sodium (Depakote Delay Rel Tab) 500 mg BID PO 09/28/16 21:00 10/28/16 20:59 09/29/16 08:23 500 MG Docusate Sodium (coLACE CAP) 100 mg QAM PO 09/29/16 09:00 10/29/16 08:59 09/29/16 08:23 100 MG Folic Acid (Folvite Tab) 1 mg QAM PO 09/29/16 09:00 10/29/16 08:59 09/29/16 08:23 1 MG Memantine (Namenda Tab) 5 mg QAM PO 09/29/16 09:00 10/29/16 08:59 09/29/16 08:23 5 MG Multivitamins/ Minerals (Multivitamin W/ Minerals Tab) 1 tab QAM PO 09/29/16 09:00 10/29/16 08:59 09/29/16 08:23 1 TAB Tamsulosin HCl (Flomax Cap) 0.4 mg QPM PO 09/28/16 21:00 10/28/16 20:59 09/28/16 21:51 0.4 MG Finasteride (Proscar Tab) 5 mg QAM PO 09/29/16 09:00 10/29/16 08:59 09/29/16 08:22 5 MG Hydroxyzine HCl (Vistaril Tab) 25 mg Q6H PRN PO 09/28/16 19:00 10/28/16 18:59 09/29/16 07:46 25 MG Pantoprazole Sodium (Protonix Tab) 40 mg QAM PO 09/29/16 09:00 10/29/16 08:59 09/29/16 08:22 40 MG Albuterol/ Ipratropium 3 ml 3 ml QIDR INH 09/28/16 20:00 10/28/16 19:59 09/29/16 08:05 3 ML Methylprednisolone Sodium Succinate/ Syringe (Solu-Medrol IV/ Syringe) 0.96 ml @ 1.5 mls/min Q12H IV 09/29/16 01:00 10/29/16 00:59 09/29/16 00:16 1.5 MLS/MIN Guaifenesin (Mucinex Contr Rel Tab) 1,200 mg Q12 PO 09/28/16 21:00 10/28/16 20:59 09/29/16 08:24 1,200 MG Heparin Sodium (Porcine) 5 ml 5 ml PRN PRN FLUSH 09/28/16 22:30 10/28/16 22:29 Piperacillin Sod/ Tazobactam Sod/ Dextrose (Zosyn Iv/D5 100ml) 115 ml @ 28.75 mls/ hr Q8H IV 09/29/16 02:00 10/06/16 01:59 09/29/16 09:28 28.75 MLS/HR Piperacillin Sod/ Tazobactam Sod (Consult) 1 ea UD PRN N/A 09/29/16 02:45 10/29/16 02:44 Review of Systems Constitutional: + fatigue, + fever, + weakness Eyes: No problem reported ENT: No problem reported Respiratory: + cough, No hemoptysis Cardiovascular: No problem reported Abdomen: No problem reported Musculoskeletal: No problem reported Genitourinary - Male: No problem reported Neurologic: No problem reported Psychiatric: No problem reported Endocrine: No problem reported Hematologic / Lymphatic: No problem reported Integumentary: + itch, + new/changing skin lesions, + rash Allergic / Immunologic: No problem reported Physical Exam Date Time Temp Pulse Resp B/P Pulse Ox O2 Delivery O2 Flow Rate FiO2 09/29/16 11:11 36.4 86 18 90/50 96 Room Air 09/29/16 08:06 36.5 86 18 106/58 98 Room Air 09/29/16 08:05 82 18 97 Room Air 09/29/16 08:00 Room Air 09/29/16 04:00 Nasal Cannula 2.0 09/29/16 03:40 36.8 89 18 108/64 96 Nasal Cannula 2.0 09/29/16 00:01 37.1 89 18 123/73 99 Nasal Cannula 2.0 09/29/16 00:00 Nasal Cannula 2.0 09/28/16 21:45 61 18 93 Nasal Cannula 2.0 09/28/16 20:20 88 20 103/79 94 Room Air 09/28/16 20:00 Room Air 09/28/16 19:36 84 18 100/62 95 Room Air 09/28/16 18:00 36.8 94 18 129/80 90 Room Air 09/28/16 17:48 74 22 108/56 91 09/28/16 17:40 90 14 09/28/16 17:35 90 14 09/28/16 17:30 91 17 104/60 09/28/16 17:25 90 21 09/28/16 17:20 90 20 09/28/16 17:15 92 19 09/28/16 17:10 92 18 09/28/16 17:05 92 20 09/28/16 17:00 93 20 117/72 09/28/16 16:55 92 14 09/28/16 16:50 92 29 09/28/16 16:46 114/64 09/28/16 16:45 91 26 09/28/16 16:40 97 27 92 09/28/16 16:35 90 19 09/28/16 16:30 96 29 09/28/16 16:25 90 21 09/28/16 16:20 89 18 09/28/16 16:15 90 29 09/28/16 16:10 88 13 09/28/16 16:05 90 15 09/28/16 16:01 109/76 09/28/16 16:00 91 18 09/28/16 15:55 93 19 09/28/16 15:50 93 27 96 09/28/16 15:45 92 22 09/28/16 15:40 96 17 100 09/28/16 15:35 91 14 98 09/28/16 15:30 95 21 84/50 09/28/16 15:25 99 19 09/28/16 15:20 96 09/28/16 15:20 93 19 09/28/16 15:00 93/64 09/28/16 14:54 100 Room Air 09/28/16 14:47 37.3 99 20 87/56 99 Room Air General Appearance: WD/WN, + mild distress Head: normocephalic, atraumatic Eyes: normal inspection, EOMI, sclerae normal ENT: normal ENT inspection, pharynx normal Neck: supple, no adenopathy, thyroid normal, trachea midline Respiratory/Chest: chest non-tender, no respiratory distress, no accessory muscle use, + rales, + wheezing Cardiovascular: regular rate, rhythm, no gallop, no murmur Abdomen/GI: normal bowel sounds, non tender, soft, no organomegaly Back: normal inspection, no CVA tenderness Extremities/Musculoskelatal: no calf tenderness, + slow capillary refill Neurologic/Psych: alert, oriented x 3 Skin: + rash (diffuse maculo-papular), + pertinent finding (left heel ulceration with wound VAC) Laboratory Results Last 24 Hours Test 09/28/16 15:08 09/28/16 15:28 09/28/16 15:35 09/29/16 05:29 White Blood Count 15.15 K/uL 15.28 K/uL Red Blood Count 4.18 M/uL 3.94 M/uL Hemoglobin 10.7 g/dL 9.9 g/dL Hematocrit 31.9 % 30.2 % Mean Corpuscular Volume 76.3 fL 76.6 fL Mean Corpuscular Hemoglobin 25.6 pg 25.1 pg Mean Corpuscular Hemoglobin Concent 33.5 g/dl 32.8 g/dl Platelet Count 337 K/uL 316 K/uL Mean Platelet Volume 8.7 fL 8.4 fL RDW Standard Deviation 50.6 fL 50.7 fL RDW Coefficient of Variation 18.0 % 18.0 % Neutrophils % (Manual) 54.9 % 86.5 % Lymphocytes % (Manual) 12.4 % 2.7 % Monocytes % (Manual) 8.8 % 0.9 % Eosinophils % (Manual) 21.2 % 5.4 % Metamyelocytes % 1.8 % 1.8 % Myelocytes % 0.9 % 2.7 % Neutrophils # (Manual) 8.32 K/uL 13.22 K/uL Total Absolute Neutrophils 8.32 K/uL 13.22 K/uL Lymphocytes # (Manual) 1.88 K/uL 0.41 K/uL Total Absolute Lymphocytes 1.88 K/uL 0.41 K/uL Monocytes # (Manual) 1.33 K/uL 0.14 K/uL Eosinophils # (Manual) 3.21 K/uL 0.83 K/uL Metamyelocytes # 0.27 K/uL 0.28 K/uL Myelocytes # 0.14 K/uL 0.41 K/uL Smudge Cells PRESENT Echinocytes 1+ 2+ Erythrocyte Sedimentation Rate 23 mm/hr Sodium Level 131 mmol/L 136 mmol/L Potassium Level 4.6 mmol/L 4.7 mmol/L Chloride Level 99 mmol/L 104 mmol/L Carbon Dioxide Level 26 mmol/L 25 mmol/L Anion Gap 6.0 mmol/L 7.0 mmol/L Blood Urea Nitrogen 32 mg/dl 21 mg/dl Creatinine 1.40 mg/dl 1.00 mg/dl Est Creatinine Clear Calc Drug Dose 58.1 ml/min 81.5 ml/min Estimated GFR () 62.0 93.1 Estimated GFR (Non- 53.5 80.3 BUN/Creatinine Ratio 22.5 21.1 Random Glucose 125 mg/dl 137 mg/dl Calcium Level 8.3 mg/dl 7.8 mg/dl Troponin I < 0.015 ng/ml C-Reactive Protein 9.67 mg/dl 9.23 mg/dl Valproic Acid (Depakene) Level 57 mcg/ml Prothrombin Time 12.5 SECONDS Prothromb Time International Ratio 1.2 Hepatitis C Antibody Screen NEG Bedside Lactic Acid Venous 3.31 mmol/L Lactic Acid Level 1.6 mmol/L CHEST ONE VIEW PORTABLE CLINICAL HISTORY: Sepsis. Allergic reaction. History of lung cancer. COMPARISON STUDY: Chest radiograph July 31, 2016. FINDINGS: There is no pneumothorax or pleural effusion. A right PICC is in place. The tip is obscured on since exam. Bilateral perihilar opacities have increased since exam of July 31, 2016. Cardiac size is stable. A left suprahilar density could reflect airspace opacity or the known left upper lobe nodule. IMPRESSION: 1. Regression of bilateral perihilar opacities which could reflect pulmonary edema or bilateral pneumonia. Radiographic follow-up is recommended. 2. Left suprahilar opacity which could reflect pulmonary edema, pneumonia or the known left upper lobe nodule. Electronically signed by: Delio Head M.D. 09/28/2016 4:32 PM Assessment & Plan Osteomyelitis of left heel with prior cultures positive for MSSA and group B Strep, now with apparent drug rash, most likely from vancomycin, but ciprofloxacin also possible offending agent. For now, Zosyn alone should provide adequate coverage, will adjust once further information available.
--- NOTE | 2016-09-29 14:33 | PROGRESS NOTE ---
DATE: 09/29/2016 DATE: 09/29/2016. SUBJECTIVE: The patient is seen today as an inpatient following admission yesterday for an acute drug reaction. The patient states he is noticing some decrease in itching in the rash which is systemic in character. The patient denies any shortness of breath or cough. The patient denies any other systemic complaints at this time. OBJECTIVE: The patient's vital signs were reviewed and found to be unremarkable. The patient is afebrile. The ulcerative site on the left heel today measures 4.5 x 5.8 x 0.2 cm. There is no central slough. No periwound erythema, no active drainage or odor present. This is increased from the prior measurements 6 days ago in the outpatient clinic. ASSESSMENT: Stage IV pressure ulcer left heel with deterioration. PLAN: At this time, no debridement is indicated. The site will continue to be managed with a wound VAC, Ramona at the base followed by black foam 125 mm of negative pressure. Wound VAC changed Tuesday, Tuesday, Tuesday. The patient will continue to be monitored as an inpatient and in 1 week in the outpatient clinic.
--- NOTE | 2016-09-29 18:36 | Family Medicine Progress Note ---
Progress Note Date of Service Sep 29, 2016. Subjective Pt evaluation today including: conversation w/ patient, physical exam, chart review, lab review Pain: denies pain PO Intake: good 61-year-old male with past medical history of PAD, COPD, stage IIIB lung cancer , left heel osteomyelitis, bipolar disorder presented to the ER with complaints of a diffuse pruritic rash which started about a week ago. He had been taking IV vancomycin and oral ciprofloxacin for his osteomyelitis which was stopped on 09/21/69. He had started Bactrim on 09/23 which was stopped on 09/27 He was started on Solu-Medrol which seemed to have helped his rash. He states that his rash is a lot better today and is not as pruritic Constitutional: No chills, No fever Eyes: No worsening of vision ENT: No hearing loss Respiratory: No cough Cardiovascular: No chest pain Abdomen: No pain Musculoskeletal: No joint pain Skin: + rash Medications Current Inpatient Medications Medications (Trade) Dose Ordered Sig/Rinku Route Start Time Stop Time Status Last Admin Dose Admin Heparin Sodium (Porcine) (Heparin Sq 5000 Unit/0.5ml) 5,000 unit Q8 SQ 09/28/16 22:00 10/28/16 21:59 09/29/16 13:30 5,000 UNIT Acetaminophen (Tylenol Tab) 650 mg Q4H PRN PO 09/28/16 19:00 10/28/16 18:59 09/29/16 15:21 650 MG Al Hydrox/Mg Hydrox/Simethicone (Maalox Max Susp) 15 ml Q4H PRN PO 09/28/16 19:00 10/28/16 18:59 Magnesium Hydroxide (Milk Of Magnesia Susp) 30 ml Q12H PRN PO 09/28/16 19:00 10/28/16 18:59 Ondansetron HCl (Zofran Inj) 4 mg Q6H PRN IV 09/28/16 19:00 10/28/16 18:59 Nitroglycerin (Nitrostat Tab) 0.4 mg UD PRN SL 09/28/16 19:00 10/28/16 18:59 Polyethylene (Miralax Powder Packet) 17 gm DAILY PRN PO 09/28/16 19:00 10/28/16 18:59 Ascorbic Acid (Vitamin C Tab) 500 mg BID PO 09/28/16 21:00 10/28/16 20:59 09/29/16 09:09 500 MG Aspirin (Ecotrin Tab) 81 mg QAM PO 09/29/16 09:00 10/29/16 08:59 09/29/16 08:23 81 MG Bisacodyl (Dulcolax Supp) 5 mg DAILY PRN [place] 09/28/16 19:00 10/28/16 18:59 Bupropion HCl (Wellbutrin-Sr Tab) 100 mg DAILY PO 09/29/16 09:00 10/29/16 08:59 09/29/16 08:23 100 MG Divalproex Sodium (Depakote Delay Rel Tab) 500 mg BID PO 09/28/16 21:00 10/28/16 20:59 09/29/16 08:23 500 MG Docusate Sodium (coLACE CAP) 100 mg QAM PO 09/29/16 09:00 10/29/16 08:59 09/29/16 08:23 100 MG Folic Acid (Folvite Tab) 1 mg QAM PO 09/29/16 09:00 10/29/16 08:59 09/29/16 08:23 1 MG Memantine (Namenda Tab) 5 mg QAM PO 09/29/16 09:00 10/29/16 08:59 09/29/16 08:23 5 MG Multivitamins/ Minerals (Multivitamin W/ Minerals Tab) 1 tab QAM PO 09/29/16 09:00 10/29/16 08:59 09/29/16 08:23 1 TAB Tamsulosin HCl (Flomax Cap) 0.4 mg QPM PO 09/28/16 21:00 10/28/16 20:59 09/28/16 21:51 0.4 MG Finasteride (Proscar Tab) 5 mg QAM PO 09/29/16 09:00 10/29/16 08:59 09/29/16 08:22 5 MG Hydroxyzine HCl (Vistaril Tab) 25 mg Q6H PRN PO 09/28/16 19:00 10/28/16 18:59 09/29/16 15:20 25 MG Pantoprazole Sodium (Protonix Tab) 40 mg QAM PO 09/29/16 09:00 10/29/16 08:59 4/26/17 08:22 40 MG Albuterol/ Ipratropium 3 ml 3 ml QIDR INH 09/28/16 20:00 10/28/16 19:59 09/29/16 15:39 3 ML Methylprednisolone Sodium Succinate/ Syringe (Solu-Medrol IV/ Syringe) 0.96 ml @ 1.5 mls/min Q12H IV 09/29/16 01:00 10/29/16 00:59 09/29/16 12:19 1.5 MLS/MIN Guaifenesin (Mucinex Contr Rel Tab) 1,200 mg Q12 PO 09/28/16 21:00 10/28/16 20:59 09/29/16 08:24 1,200 MG Heparin Sodium (Porcine) 5 ml 5 ml PRN PRN FLUSH 09/28/16 22:30 10/28/16 22:29 09/29/16 16:32 5 ML Piperacillin Sod/ Tazobactam Sod/ Dextrose (Zosyn Iv/D5 100ml) 115 ml @ 28.75 mls/ hr Q8H IV 09/29/16 02:00 10/06/16 01:59 09/29/16 17:49 28.75 MLS/HR Piperacillin Sod/ Tazobactam Sod (Consult) 1 ea UD PRN N/A 09/29/16 02:45 10/29/16 02:44 Objective Vital Signs Date Time Temp Pulse Resp B/P Pulse Ox O2 Delivery O2 Flow Rate FiO2 09/29/16 15:56 Room Air 09/29/16 15:51 36.3 81 20 125/75 98 Room Air 09/29/16 15:39 78 18 91 Room Air 09/29/16 12:00 Room Air 09/29/16 11:11 36.4 86 18 90/50 96 Room Air 09/29/16 08:06 36.5 86 18 106/58 98 Room Air 09/29/16 08:05 82 18 97 Room Air 09/29/16 08:00 Room Air 09/29/16 04:00 Nasal Cannula 2.0 09/29/16 03:40 36.8 89 18 108/64 96 Nasal Cannula 2.0 09/29/16 00:01 37.1 89 18 123/73 99 Nasal Cannula 2.0 09/29/16 00:00 Nasal Cannula 2.0 09/28/16 21:45 61 18 93 Nasal Cannula 2.0 09/28/16 20:20 88 20 103/79 94 Room Air 09/28/16 20:00 Room Air 09/28/16 19:36 84 18 100/62 95 Room Air Physical Exam General Appearance: WD/WN, no apparent distress ENT: hearing grossly normal Neck: supple Respiratory/Chest: chest non-tender, no respiratory distress, no accessory muscle use, + wheezing (scattered) Cardiovascular: regular rate, rhythm Abdomen: normal bowel sounds, non tender, soft Extremities: normal range of motion, non-tender, normal inspection Neurologic/Psychiatric: alert, normal mood/affect, oriented x 3 Skin: + pertinent finding (diffuse macular papular, erythematous rash all over the body) Laboratory Results Current Inpatient Medications Medications (Trade) Dose Ordered Sig/Rinku Route Start Time Stop Time Status Last Admin Dose Admin Heparin Sodium (Porcine) (Heparin Sq 5000 Unit/0.5ml) 5,000 unit Q8 SQ 09/28/16 22:00 10/28/16 21:59 09/29/16 13:30 5,000 UNIT Acetaminophen (Tylenol Tab) 650 mg Q4H PRN PO 09/28/16 19:00 10/28/16 18:59 09/29/16 15:21 650 MG Al Hydrox/Mg Hydrox/Simethicone (Maalox Max Susp) 15 ml Q4H PRN PO 09/28/16 19:00 10/28/16 18:59 Magnesium Hydroxide (Milk Of Magnesia Susp) 30 ml Q12H PRN PO 09/28/16 19:00 10/28/16 18:59 Ondansetron HCl (Zofran Inj) 4 mg Q6H PRN IV 09/28/16 19:00 10/28/16 18:59 Nitroglycerin (Nitrostat Tab) 0.4 mg UD PRN SL 09/28/16 19:00 10/28/16 18:59 Polyethylene (Miralax Powder Packet) 17 gm DAILY PRN PO 09/28/16 19:00 10/28/16 18:59 Ascorbic Acid (Vitamin C Tab) 500 mg BID PO 09/28/16 21:00 10/28/16 20:59 09/29/16 09:09 500 MG Aspirin (Ecotrin Tab) 81 mg QAM PO 09/29/16 09:00 10/29/16 08:59 09/29/16 08:23 81 MG Bisacodyl (Dulcolax Supp) 5 mg DAILY PRN [place] 09/28/16 19:00 10/28/16 18:59 Bupropion HCl (Wellbutrin-Sr Tab) 100 mg DAILY PO 09/29/16 09:00 10/29/16 08:59 09/29/16 08:23 100 MG Divalproex Sodium (Depakote Delay Rel Tab) 500 mg BID PO 09/28/16 21:00 10/28/16 20:59 09/29/16 08:23 500 MG Docusate Sodium (coLACE CAP) 100 mg QAM PO 09/29/16 09:00 10/29/16 08:59 09/29/16 08:23 100 MG Folic Acid (Folvite Tab) 1 mg QAM PO 09/29/16 09:00 10/29/16 08:59 09/29/16 08:23 1 MG Memantine (Namenda Tab) 5 mg QAM PO 09/29/16 09:00 10/29/16 08:59 09/29/16 08:23 5 MG Multivitamins/ Minerals (Multivitamin W/ Minerals Tab) 1 tab QAM PO 09/29/16 09:00 10/29/16 08:59 09/29/16 08:23 1 TAB Tamsulosin HCl (Flomax Cap) 0.4 mg QPM PO 09/28/16 21:00 10/28/16 20:59 09/28/16 21:51 0.4 MG Finasteride (Proscar Tab) 5 mg QAM PO 09/29/16 09:00 10/29/16 08:59 09/29/16 08:22 5 MG Hydroxyzine HCl (Vistaril Tab) 25 mg Q6H PRN PO 09/28/16 19:00 10/28/16 18:59 09/29/16 15:20 25 MG Pantoprazole Sodium (Protonix Tab) 40 mg QAM PO 09/29/16 09:00 10/29/16 08:59 09/29/16 08:22 40 MG Albuterol/ Ipratropium 3 ml 3 ml QIDR INH 09/28/16 20:00 10/28/16 19:59 09/29/16 15:39 3 ML Methylprednisolone Sodium Succinate/ Syringe (Solu-Medrol IV/ Syringe) 0.96 ml @ 1.5 mls/min Q12H IV 09/29/16 01:00 10/29/16 00:59 09/29/16 12:19 1.5 MLS/MIN Guaifenesin (Mucinex Contr Rel Tab) 1,200 mg Q12 PO 09/28/16 21:00 10/28/16 20:59 09/29/16 08:24 1,200 MG Heparin Sodium (Porcine) 5 ml 5 ml PRN PRN FLUSH 09/28/16 22:30 10/28/16 22:29 09/29/16 16:32 5 ML Piperacillin Sod/ Tazobactam Sod/ Dextrose (Zosyn Iv/D5 100ml) 115 ml @ 28.75 mls/ hr Q8H IV 09/29/16 02:00 10/06/16 01:59 09/29/16 17:49 28.75 MLS/HR Piperacillin Sod/ Tazobactam Sod (Consult) 1 ea UD PRN N/A 09/29/16 02:45 10/29/16 02:44 Assessment and Plan 61-year-old male with past medical history of PAD, COPD, stage IIIB lung cancer , left heel osteomyelitis, bipolar disorder presented to the ER with complaints of a diffuse pruritic rash which started about a week ago. He had been taking IV vancomycin and oral ciprofloxacin for his osteomyelitis which was stopped on 09/21/69. He had started Bactrim on 09/23 which was stopped on 09/27 Diffuse rash: Likely secondary to vancomycin or ciprofloxacin - Vancomycin and Cipro had been stopped - Continue Solu-Medrol Left heel ulcer with osteomyelitis: - Continue wound VAC - Wound care consulted - ID consult - Continue Zosyn - nonweightbearing on left COPD exacerbation: Continue steroids, nebulizers Bipolar disorder: Continue Depakote BPH Continue tamsulosin and finasteride PAD - Continue aspirin DVT prophylaxis: Heparin Full code Disposition: Monitor in telemetry Resident Physician Supervision Note: I was present with Dr. Rajput during the history and exam. I discussed the case with the resident and agree with the findings and plan as documented in the note. Any exceptions or clarifications are listed here: I also personally discussed the patient with ID consultants. Documented By: Everette Ray Resident Tracking Resident Involvement: Resident Care Provided Care Provided: Adult Hospital Medicine
[2016-09-29] MEDS: TAMSULOSIN HCL 0.4 MG CAP PO SCH (20:57)
[2016-09-30] VITALS (8 sets, daily range): BP systolic 123–174; BP diastolic 68–96; PULSE 84–98; TEMP 36.1–36.9; O2SAT 94–100
[2016-09-30] MEDS: PIPERACILL/TAZOBAC IV 3.375 GM in DEXTROSE 5% 100ML 100 ML IV SCH ×3 (01:09→18:47)
[2016-09-30] MEDS: hydrOXYzine HCL 25 MG TAB PO PRN (05:16)
[2016-09-30] MEDS: HEPARIN SOD 5000 UNIT/0.5 ML CARP SQ SCH ×3 (05:18→21:38)
[2016-09-30] MEDS: FINASTERIDE 5 MG TAB PO SCH (07:46)
[2016-09-30] MEDS: PANTOprazole SOD 40 MG TAB PO SCH (07:46)
[2016-09-30] MEDS: DOCUSATE SODIUM 100 MG CAP PO SCH (07:46)
[2016-09-30] MEDS: BuPROPion SR 100 MG TABCR PO SCH (07:46)
[2016-09-30] MEDS: MEMANTINE 5 MG TAB PO SCH (07:46)
[2016-09-30] MEDS: ASPIRIN 81 MG ECTAB PO SCH (07:46)
[2016-09-30] MEDS: DIVALPROEX SODIUM 500 MG DELAY RELEASE TAB PO SCH ×2 (07:47→20:12)
[2016-09-30] MEDS: ASCORBIC ACID 500 MG TAB PO SCH ×2 (07:47→20:11)
[2016-09-30] MEDS: CEROVITE ADV FORMULA TAB PO SCH (07:47)
[2016-09-30] MEDS: GUAIFENESIN 600 MG TABCR PO SCH ×2 (07:47→20:12)
[2016-09-30] MEDS: ALBUT/IPRATROP 3MG/0.5MG NEB 3 ML VIAL INH SCH (07:52)
[2016-09-30 09:06] LABS: HEMATOCRIT 29.9 % (42-52); MEAN CELL VOLUME 76.1 fL (80-100); MEAN CORPUSCULAR HEMOGLOBIN 24.7 pg (25-34); MEAN CORPUSCULAR HGB CONC 32.4 g/dl (32-36); MEAN PLATELET VOLUME 8.2 fL (7.4-10.4); PLATELET COUNT 349 K/uL (130-400); RED BLOOD COUNT 3.93 M/uL (4.7-6.1)
[2016-09-30 09:34] LABS: BUN/CREATININE RATIO 20.2 (10-20); CREATININE 0.82 mg/dl (0.60-1.40); POTASSIUM 4.6 mmol/L (3.5-5.1)
[2016-09-30 09:35] LABS: CALCIUM 8.8 mg/dl (8.5-10.1)
[2016-09-30] MEDS: METHYLPREDNISOLONE IV 60 MG in SYRINGE 0 ML IV SCH (13:24)
[2016-09-30] MEDS: IPRATROPIUM BROMIDE/ALBUTEROL respimat INH INH SCH ×3 (13:24→20:15)
--- NOTE | 2016-09-30 15:04 | Family Medicine Progress Note ---
Progress Note Date of Service Sep 30, 2016. Subjective Pt evaluation today including: conversation w/ patient, physical exam, chart review, lab review Pain: complains of generalized pain PO Intake: good Voiding: no voiding problems 61-year-old male with past medical history of PAD, COPD, stage IIIB lung cancer , left heel osteomyelitis, bipolar disorder presented to the ER with complaints of a diffuse pruritic rash which started about a week ago. He had been taking IV vancomycin and oral ciprofloxacin for his osteomyelitis which was stopped on 09/21/69. He had started Bactrim on 09/23 which was stopped on 09/27 Continues to be on IV solumedrol rash appears to be clearing but still complains of being pruritis denies fevers/chills Constitutional: No chills, No fever Eyes: No worsening of vision ENT: No hearing loss Respiratory: + shortness of breath, + wheezing, No cough Cardiovascular: No chest pain Breast: No breast lump Abdomen: No diarrhea, No nausea, No pain, No vomiting Musculoskeletal: No joint pain Male : No dysuria Neurologic: No memory loss Heme: No abnormal bleeding/bruising Skin: + itch, + rash Medications Current Inpatient Medications Medications (Trade) Dose Ordered Sig/Rinku Route Start Time Stop Time Status Last Admin Dose Admin Heparin Sodium (Porcine) (Heparin Sq 5000 Unit/0.5ml) 5,000 unit Q8 SQ 09/28/16 22:00 10/28/16 21:59 09/30/16 13:49 5,000 UNIT Acetaminophen (Tylenol Tab) 650 mg Q4H PRN PO 09/28/16 19:00 10/28/16 18:59 09/29/16 23:54 650 MG Al Hydrox/Mg Hydrox/Simethicone (Maalox Max Susp) 15 ml Q4H PRN PO 09/28/16 19:00 10/28/16 18:59 Magnesium Hydroxide (Milk Of Magnesia Susp) 30 ml Q12H PRN PO 09/28/16 19:00 10/28/16 18:59 Ondansetron HCl (Zofran Inj) 4 mg Q6H PRN IV 09/28/16 19:00 10/28/16 18:59 Nitroglycerin (Nitrostat Tab) 0.4 mg UD PRN SL 09/28/16 19:00 5/25/17 18:59 Polyethylene (Miralax Powder Packet) 17 gm DAILY PRN PO 09/28/16 19:00 10/28/16 18:59 Ascorbic Acid (Vitamin C Tab) 500 mg BID PO 09/28/16 21:00 10/28/16 20:59 09/30/16 07:47 500 MG Aspirin (Ecotrin Tab) 81 mg QAM PO 09/29/16 09:00 10/29/16 08:59 09/30/16 07:46 81 MG Bisacodyl (Dulcolax Supp) 5 mg DAILY PRN [place] 09/28/16 19:00 10/28/16 18:59 Bupropion HCl (Wellbutrin-Sr Tab) 100 mg DAILY PO 09/29/16 09:00 10/29/16 08:59 09/30/16 07:46 100 MG Divalproex Sodium (Depakote Delay Rel Tab) 500 mg BID PO 09/28/16 21:00 10/28/16 20:59 09/30/16 07:47 500 MG Docusate Sodium (coLACE CAP) 100 mg QAM PO 09/29/16 09:00 10/29/16 08:59 09/30/16 07:46 100 MG Folic Acid (Folvite Tab) 1 mg QAM PO 09/29/16 09:00 10/29/16 08:59 09/30/16 07:47 1 MG Memantine (Namenda Tab) 5 mg QAM PO 09/29/16 09:00 10/29/16 08:59 09/30/16 07:46 5 MG Multivitamins/ Minerals (Multivitamin W/ Minerals Tab) 1 tab QAM PO 09/29/16 09:00 10/29/16 08:59 09/30/16 07:47 1 TAB Tamsulosin HCl (Flomax Cap) 0.4 mg QPM PO 09/28/16 21:00 10/28/16 20:59 09/29/16 20:57 0.4 MG Finasteride (Proscar Tab) 5 mg QAM PO 09/29/16 09:00 10/29/16 08:59 09/30/16 07:46 5 MG Hydroxyzine HCl (Vistaril Tab) 25 mg Q6H PRN PO 09/28/16 19:00 10/28/16 18:59 09/30/16 05:16 25 MG Pantoprazole Sodium 40 mg 40 mg QAM PO 09/29/16 09:00 10/29/16 08:59 09/30/16 07:46 40 MG Methylprednisolone Sodium Succinate/ Syringe (Solu-Medrol IV/ Syringe) 0.96 ml @ 1.5 mls/min Q12H IV 09/29/16 01:00 10/29/16 00:59 09/30/16 13:24 1.5 MLS/MIN Guaifenesin (Mucinex Contr Rel Tab) 1,200 mg Q12 PO 09/28/16 21:00 10/28/16 20:59 09/30/16 07:47 1,200 MG Heparin Sodium (Porcine) 5 ml 5 ml PRN PRN FLUSH 09/28/16 22:30 10/28/16 22:29 09/29/16 16:32 5 ML Piperacillin Sod/ Tazobactam Sod/ Dextrose (Zosyn Iv/D5 100ml) 115 ml @ 28.75 mls/ hr Q8H IV 09/29/16 02:00 10/06/16 01:59 09/30/16 10:00 28.75 MLS/HR Piperacillin Sod/ Tazobactam Sod (Consult) 1 ea UD PRN N/A 09/29/16 02:45 10/29/16 02:44 Albuterol/ Ipratropium (Combivent Respimat Inh) 1 puffs QID INH 09/30/16 13:00 10/30/16 12:59 09/30/16 13:24 1 PUFFS Objective Vital Signs Date Time Temp Pulse Resp B/P Pulse Ox O2 Delivery O2 Flow Rate FiO2 09/30/16 12:00 Room Air 09/30/16 11:38 36.1 95 18 146/76 98 Room Air 09/30/16 08:00 Room Air 09/30/16 07:52 88 18 Room Air 09/30/16 07:50 36.5 95 20 123/71 96 Room Air 09/30/16 04:00 36.5 84 20 126/68 98 Nasal Cannula 2.0 09/30/16 04:00 Room Air 09/30/16 00:00 Room Air 09/29/16 23:51 36.4 84 18 132/72 98 Room Air 09/29/16 20:00 Room Air 09/29/16 19:48 92 16 96 Room Air 09/29/16 19:36 36.5 90 20 123/69 98 Room Air 09/29/16 15:56 Room Air 09/29/16 15:51 36.3 81 20 125/75 98 Room Air 09/29/16 15:39 78 18 91 Room Air Physical Exam General Appearance: WD/WN, no apparent distress Eyes: normal inspection ENT: normal ENT inspection, hearing grossly normal Neck: supple Respiratory/Chest: chest non-tender, + wheezing (diffusely) Cardiovascular: regular rate, rhythm Abdomen: normal bowel sounds, non tender, soft Extremities: + pertinent finding (left heel wound covered in dressing/wound vac ) Neurologic/Psychiatric: alert, normal mood/affect, oriented x 3 Skin: + pertinent finding (diffuse erythematous maculopapaular rash , appears more cleared than yesterday especially on the torso) Laboratory Results 09/30/16 08:51 09/30/16 08:51 Test 09/30/16 08:51 09/30/16 11:18 Red Blood Count 3.93 M/uL (4.7-6.1) Mean Corpuscular Volume 76.1 fL (80-100) Mean Corpuscular Hemoglobin 24.7 pg (25-34) Mean Corpuscular Hemoglobin Concent 32.4 g/dl (32-36) RDW Standard Deviation 51.2 fL (36.4-46.3) RDW Coefficient of Variation 18.1 % (11.5-14.5) Mean Platelet Volume 8.2 fL (7.4-10.4) Anion Gap 9.0 mmol/L (3-11) Est Creatinine Clear Calc Drug Dose 98.3 ml/min Estimated GFR () 109.8 Estimated GFR (Non- 94.8 BUN/Creatinine Ratio 20.2 (10-20) Calcium Level 8.8 mg/dl (8.5-10.1) Bedside Glucose 113 mg/dl (70-99) Assessment and Plan 61-year-old male with past medical history of PAD, COPD, stage IIIB lung cancer , left heel osteomyelitis, bipolar disorder presented to the ER with complaints of a diffuse pruritic rash which started about a week ago. He had been taking IV vancomycin and oral ciprofloxacin for his osteomyelitis which was stopped on 09/21/69. He had started Bactrim on 09/23 which was stopped on 09/27 Diffuse drug rash: Likely secondary to vancomycin or ciprofloxacin - Vancomycin and Cipro had been stopped - Continue Solu-Medrol and hydroxyzine Left heel ulcer with osteomyelitis: - Continue wound VAC - Wound care consulted- appreciate input - ID consult- appreciate input - Continue Zosyn - nonweightbearing on left COPD exacerbation: - Continue solumedrol which should help with COPD too - Continue inhalers, combivent Bipolar disorder: Continue Depakote BPH Continue tamsulosin and finasteride PAD - Continue aspirin DVT prophylaxis: Heparin Full code Disposition: Monitor in telemetry Resident Physician Supervision Note: I interviewed and examined the patient. Discussed with Dr. Rajput and agree with findings and plan as documented in the note. Any exceptions or clarifications are listed here: Upon my exam admission, the patient is resting comfortably. He feels the rash is improving; it is still painful and itchy, but both symptoms are less bothersome than compared to yesterday. Infectious disease consult appreciated. We'll likely begin to taper steroids tomorrow. He will need a long tapering dose to avoid rebound phenomenon. Documented By: Everette Ray Continued [facility] stay due to: other (rash) [facility]charge planning[facility] facility Resident Tracking Resident Involvement: Resident Care Provided Care Provided: Adult Hospital Medicine
--- NOTE | 2016-09-30 19:59 | Infectious Disease Progress Nt ---
Progress Note Date of Service Sep 30, 2016. Subjective Pt evaluation today including: conversation w/ patient, physical exam, chart review, lab review, review of studies, conversation w/ government operations consultant, review of inpatient medication list Feels better this AM. Rash slightly better, pruritis improved. Remains afebrile. All Other Systems: Reviewed and Negative Medications Current Inpatient Medications Medications (Trade) Dose Ordered Sig/Rinku Route Start Time Stop Time Status Last Admin Dose Admin Heparin Sodium (Porcine) (Heparin Sq 5000 Unit/0.5ml) 5,000 unit Q8 SQ 09/28/16 22:00 10/28/16 21:59 09/30/16 13:49 5,000 UNIT Acetaminophen (Tylenol Tab) 650 mg Q4H PRN PO 09/28/16 19:00 10/28/16 18:59 09/29/16 23:54 650 MG Al Hydrox/Mg Hydrox/Simethicone (Maalox Max Susp) 15 ml Q4H PRN PO 09/28/16 19:00 10/28/16 18:59 Magnesium Hydroxide (Milk Of Magnesia Susp) 30 ml Q12H PRN PO 09/28/16 19:00 10/28/16 18:59 Ondansetron HCl (Zofran Inj) 4 mg Q6H PRN IV 09/28/16 19:00 10/28/16 18:59 Nitroglycerin (Nitrostat Tab) 0.4 mg UD PRN SL 09/28/16 19:00 10/28/16 18:59 Polyethylene (Miralax Powder Packet) 17 gm DAILY PRN PO 09/28/16 19:00 10/28/16 18:59 Ascorbic Acid (Vitamin C Tab) 500 mg BID PO 09/28/16 21:00 10/28/16 20:59 09/30/16 07:47 500 MG Aspirin (Ecotrin Tab) 81 mg QAM PO 09/29/16 09:00 10/29/16 08:59 09/30/16 07:46 81 MG Bisacodyl (Dulcolax Supp) 5 mg DAILY PRN [place] 09/28/16 19:00 10/28/16 18:59 Bupropion HCl (Wellbutrin-Sr Tab) 100 mg DAILY PO 09/29/16 09:00 10/29/16 08:59 4/27/17 07:46 100 MG Divalproex Sodium (Depakote Delay Rel Tab) 500 mg BID PO 09/28/16 21:00 10/28/16 20:59 09/30/16 07:47 500 MG Docusate Sodium (coLACE CAP) 100 mg QAM PO 09/29/16 09:00 10/29/16 08:59 09/30/16 07:46 100 MG Folic Acid (Folvite Tab) 1 mg QAM PO 09/29/16 09:00 10/29/16 08:59 09/30/16 07:47 1 MG Memantine (Namenda Tab) 5 mg QAM PO 09/29/16 09:00 10/29/16 08:59 09/30/16 07:46 5 MG Multivitamins/ Minerals (Multivitamin W/ Minerals Tab) 1 tab QAM PO 09/29/16 09:00 10/29/16 08:59 09/30/16 07:47 1 TAB Tamsulosin HCl (Flomax Cap) 0.4 mg QPM PO 09/28/16 21:00 10/28/16 20:59 09/29/16 20:57 0.4 MG Finasteride (Proscar Tab) 5 mg QAM PO 09/29/16 09:00 10/29/16 08:59 09/30/16 07:46 5 MG Hydroxyzine HCl (Vistaril Tab) 25 mg Q6H PRN PO 09/28/16 19:00 10/28/16 18:59 09/30/16 05:16 25 MG Pantoprazole Sodium 40 mg 40 mg QAM PO 09/29/16 09:00 10/29/16 08:59 09/30/16 07:46 40 MG Methylprednisolone Sodium Succinate/ Syringe (Solu-Medrol IV/ Syringe) 0.96 ml @ 1.5 mls/min Q12H IV 09/29/16 01:00 10/29/16 00:59 09/30/16 13:24 1.5 MLS/MIN Guaifenesin (Mucinex Contr Rel Tab) 1,200 mg Q12 PO 09/28/16 21:00 10/28/16 20:59 09/30/16 07:47 1,200 MG Heparin Sodium (Porcine) 5 ml 5 ml PRN PRN FLUSH 09/28/16 22:30 10/28/16 22:29 09/29/16 16:32 5 ML Piperacillin Sod/ Tazobactam Sod/ Dextrose (Zosyn Iv/D5 100ml) 115 ml @ 28.75 mls/ hr Q8H IV 09/29/16 02:00 10/06/16 01:59 09/30/16 18:47 28.75 MLS/HR Piperacillin Sod/ Tazobactam Sod (Consult) 1 ea UD PRN N/A 09/29/16 02:45 10/29/16 02:44 Albuterol/ Ipratropium (Combivent Respimat Inh) 1 puffs QID INH 09/30/16 13:00 10/30/16 12:59 09/30/16 18:02 1 PUFFS Objective Vital Signs Date Time Temp Pulse Resp B/P Pulse Ox O2 Delivery O2 Flow Rate FiO2 09/30/16 19:14 36.6 95 20 174/96 94 Room Air 09/30/16 16:00 Room Air 09/30/16 15:00 36.2 98 18 139/79 100 Room Air 09/30/16 12:00 Room Air 09/30/16 11:38 36.1 95 18 146/76 98 Room Air 09/30/16 08:00 Room Air 09/30/16 07:52 88 18 Room Air 09/30/16 07:50 36.5 95 20 123/71 96 Room Air 09/30/16 04:00 36.5 84 20 126/68 98 Nasal Cannula 2.0 09/30/16 04:00 Room Air 09/30/16 00:00 Room Air 09/29/16 23:51 36.4 84 18 132/72 98 Room Air 09/29/16 20:00 Room Air Physical Exam General Appearance: WD/WN, no apparent distress Eyes: normal inspection, sclerae normal ENT: normal ENT inspection, pharynx normal Neck: supple, no adenopathy, trachea midline Respiratory/Chest: chest non-tender, lungs clear, normal breath sounds, no respiratory distress, no accessory muscle use Cardiovascular: regular rate, rhythm, no gallop, no murmur Abdomen: normal bowel sounds, non tender, soft, no organomegaly Extremities: non-tender, no calf tenderness Neurologic/Psychiatric: alert, oriented x 3 Skin: + rash, + pertinent finding (erythema improved, left heel with wound VAC) Laboratory Results Last 24 Hours Test 09/30/16 08:51 09/30/16 11:18 White Blood Count 19.40 K/uL Red Blood Count 3.93 M/uL Hemoglobin 9.7 g/dL Hematocrit 29.9 % Mean Corpuscular Volume 76.1 fL Mean Corpuscular Hemoglobin 24.7 pg Mean Corpuscular Hemoglobin Concent 32.4 g/dl RDW Standard Deviation 51.2 fL RDW Coefficient of Variation 18.1 % Platelet Count 349 K/uL Mean Platelet Volume 8.2 fL Sodium Level 139 mmol/L Potassium Level 4.6 mmol/L Chloride Level 105 mmol/L Carbon Dioxide Level 25 mmol/L Anion Gap 9.0 mmol/L Blood Urea Nitrogen 17 mg/dl Creatinine 0.82 mg/dl Est Creatinine Clear Calc Drug Dose 98.3 ml/min Estimated GFR () 109.8 Estimated GFR (Non- 94.8 BUN/Creatinine Ratio 20.2 Random Glucose 145 mg/dl Calcium Level 8.8 mg/dl Bedside Glucose 113 mg/dl Assessment and Plan Osteomyelitis of left heel with prior cultures positive for MSSA and group B Strep, now with apparent drug rash, most likely from vancomycin, but ciprofloxacin also possible offending agent. For now, Zosyn alone should provide adequate coverage and appears to be improving. I will adjust once further information available.
[2016-09-30] MEDS: TAMSULOSIN HCL 0.4 MG CAP PO SCH (20:10)
[2016-10-01] MEDS: METHYLPREDNISOLONE IV 60 MG in SYRINGE 0 ML IV SCH ×2 (02:04→13:18)
[2016-10-01] MEDS: PIPERACILL/TAZOBAC IV 3.375 GM in DEXTROSE 5% 100ML 100 ML IV SCH ×3 (02:05→18:46)
[2016-10-01 04:19] VITALS: BP 166/84; PULSE 92; TEMP 36.4; O2SAT 93
[2016-10-01] MEDS: HEPARIN SOD 5000 UNIT/0.5 ML CARP SQ SCH ×3 (05:58→22:41)
[2016-10-01 07:26] VITALS: BP 160/87; PULSE 86; TEMP 36.6; O2SAT 95
[2016-10-01 07:37] LABS: HEMATOCRIT 31.8 % (42-52); MEAN CELL VOLUME 76.6 fL (80-100); MEAN CORPUSCULAR HEMOGLOBIN 24.1 pg (25-34); MEAN CORPUSCULAR HGB CONC 31.4 g/dl (32-36); MEAN PLATELET VOLUME 8.4 fL (7.4-10.4); PLATELET COUNT 371 K/uL (130-400); RED BLOOD COUNT 4.15 M/uL (4.7-6.1)
[2016-10-01] MEDS: CEROVITE ADV FORMULA TAB PO SCH (09:24)
[2016-10-01] MEDS: DOCUSATE SODIUM 100 MG CAP PO SCH (09:24)
[2016-10-01] MEDS: ASCORBIC ACID 500 MG TAB PO SCH ×2 (09:24→22:38)
[2016-10-01] MEDS: BuPROPion SR 100 MG TABCR PO SCH (09:24)
[2016-10-01] MEDS: ASPIRIN 81 MG ECTAB PO SCH (09:24)
[2016-10-01] MEDS: IPRATROPIUM BROMIDE/ALBUTEROL respimat INH INH SCH ×4 (09:24→21:23)
[2016-10-01] MEDS: METOPROLOL SUCC 25MG EXT REL TAB PO SCH (09:24)
[2016-10-01] MEDS: GUAIFENESIN 600 MG TABCR PO SCH ×2 (09:24→22:40)
[2016-10-01] MEDS: FINASTERIDE 5 MG TAB PO SCH (09:25)
[2016-10-01] MEDS: DIVALPROEX SODIUM 500 MG DELAY RELEASE TAB PO SCH ×2 (09:25→22:39)
[2016-10-01] MEDS: MEMANTINE 5 MG TAB PO SCH (09:25)
[2016-10-01] MEDS: PANTOprazole SOD 40 MG TAB PO SCH (09:25)
--- NOTE | 2016-10-01 10:17 | Family Medicine Progress Note ---
Progress Note Date of Service Oct 01, 2016. Subjective Pt evaluation today including: conversation w/ patient, physical exam Pain: well-controlled PO Intake: good Voiding: no voiding problems 61-year-old male with past medical history of PAD, COPD, stage IIIB lung cancer , left heel osteomyelitis, bipolar disorder presented to the ER with complaints of a diffuse pruritic rash which started about a week ago. He had been taking IV vancomycin and oral ciprofloxacin for his osteomyelitis which was stopped on 09/21/69. He had started Bactrim on 09/23 which was stopped on 09/27 Had been on IV Solu-Medrol. Rash appears to have cleared significantly especially on the torso. He states that the pruritus is improved too. denies fevers/chills, chest pain, shortness of breath Constitutional: No chills, No fever Eyes: No worsening of vision ENT: No hearing loss Medications Current Inpatient Medications Medications (Trade) Dose Ordered Sig/Rinku Route Start Time Stop Time Status Last Admin Dose Admin Heparin Sodium (Porcine) (Heparin Sq 5000 Unit/0.5ml) 5,000 unit Q8 SQ 09/28/16 22:00 10/28/16 21:59 10/01/16 05:58 5,000 UNIT Acetaminophen (Tylenol Tab) 650 mg Q4H PRN PO 09/28/16 19:00 10/28/16 18:59 09/29/16 23:54 650 MG Al Hydrox/Mg Hydrox/Simethicone (Maalox Max Susp) 15 ml Q4H PRN PO 09/28/16 19:00 10/28/16 18:59 Magnesium Hydroxide (Milk Of Magnesia Susp) 30 ml Q12H PRN PO 09/28/16 19:00 10/28/16 18:59 Ondansetron HCl (Zofran Inj) 4 mg Q6H PRN IV 09/28/16 19:00 10/28/16 18:59 Nitroglycerin (Nitrostat Tab) 0.4 mg UD PRN SL 09/28/16 19:00 10/28/16 18:59 Polyethylene (Miralax Powder Packet) 17 gm DAILY PRN PO 09/28/16 19:00 10/28/16 18:59 Ascorbic Acid (Vitamin C Tab) 500 mg BID PO 09/28/16 21:00 10/28/16 20:59 10/01/16 09:24 500 MG Aspirin (Ecotrin Tab) 81 mg QAM PO 09/29/16 09:00 10/29/16 08:59 10/01/16 09:24 81 MG Bisacodyl (Dulcolax Supp) 5 mg DAILY PRN [place] 09/28/16 19:00 10/28/16 18:59 Bupropion HCl (Wellbutrin-Sr Tab) 100 mg DAILY PO 09/29/16 09:00 10/29/16 08:59 10/01/16 09:24 100 MG Divalproex Sodium (Depakote Delay Rel Tab) 500 mg BID PO 09/28/16 21:00 10/28/16 20:59 10/01/16 09:25 500 MG Docusate Sodium (coLACE CAP) 100 mg QAM PO 09/29/16 09:00 10/29/16 08:59 10/01/16 09:24 100 MG Folic Acid (Folvite Tab) 1 mg QAM PO 09/29/16 09:00 10/29/16 08:59 10/01/16 09:24 1 MG Memantine (Namenda Tab) 5 mg QAM PO 09/29/16 09:00 10/29/16 08:59 10/01/16 09:25 5 MG Multivitamins/ Minerals (Multivitamin W/ Minerals Tab) 1 tab QAM PO 09/29/16 09:00 10/29/16 08:59 10/01/16 09:24 1 TAB Tamsulosin HCl (Flomax Cap) 0.4 mg QPM PO 09/28/16 21:00 10/28/16 20:59 09/30/16 20:10 0.4 MG Finasteride (Proscar Tab) 5 mg QAM PO 09/29/16 09:00 10/29/16 08:59 10/01/16 09:25 5 MG Hydroxyzine HCl (Vistaril Tab) 25 mg Q6H PRN PO 09/28/16 19:00 10/28/16 18:59 09/30/16 05:16 25 MG Pantoprazole Sodium 40 mg 40 mg QAM PO 09/29/16 09:00 10/29/16 08:59 10/01/16 09:25 40 MG Methylprednisolone Sodium Succinate/ Syringe (Solu-Medrol IV/ Syringe) 0.96 ml @ 1.5 mls/min Q12H IV 09/29/16 01:00 10/29/16 00:59 10/01/16 02:04 1.5 MLS/MIN Guaifenesin (Mucinex Contr Rel Tab) 1,200 mg Q12 PO 09/28/16 21:00 10/28/16 20:59 10/01/16 09:24 1,200 MG Heparin Sodium (Porcine) 5 ml 5 ml PRN PRN FLUSH 09/28/16 22:30 10/28/16 22:29 09/29/16 16:32 5 ML Piperacillin Sod/ Tazobactam Sod/ Dextrose (Zosyn Iv/D5 100ml) 115 ml @ 28.75 mls/ hr Q8H IV 09/29/16 02:00 10/06/16 01:59 10/01/16 10:30 28.75 MLS/HR Piperacillin Sod/ Tazobactam Sod (Consult) 1 ea UD PRN N/A 09/29/16 02:45 10/29/16 02:44 Albuterol/ Ipratropium (Combivent Respimat Inh) 1 puffs QID INH 09/30/16 13:00 10/30/16 12:59 10/01/16 09:24 1 PUFFS Metoprolol Succinate (Toprol Xl Tab) 25 mg QAM PO 10/01/16 09:00 10/31/16 08:59 10/01/16 09:24 25 MG Tramadol HCl (Ultram Tab) 50 mg QPM PO 10/01/16 21:00 10/31/16 20:59 Objective Vital Signs Date Time Temp Pulse Resp B/P Pulse Ox O2 Delivery O2 Flow Rate FiO2 10/01/16 08:00 Room Air 10/01/16 07:26 36.6 86 18 160/87 95 Room Air 10/01/16 04:19 36.4 92 19 166/84 93 Room Air 10/01/16 04:00 Room Air 10/01/16 00:00 Room Air 09/30/16 23:20 36.9 94 18 148/71 95 09/30/16 20:00 129/86 09/30/16 20:00 Room Air 09/30/16 19:14 36.6 95 20 174/96 94 Room Air 09/30/16 16:00 Room Air 09/30/16 15:00 36.2 98 18 139/79 100 Room Air 09/30/16 12:00 Room Air Physical Exam General Appearance: WD/WN, no apparent distress Eyes: normal inspection ENT: normal ENT inspection, hearing grossly normal Neck: supple Respiratory/Chest: chest non-tender, no respiratory distress, no accessory muscle use, + decreased breath sounds, + wheezing (scattered) Cardiovascular: regular rate, rhythm Abdomen: normal bowel sounds, non tender, soft Extremities: + pertinent finding (left heel ulcer in wound VAC) Neurologic/Psychiatric: alert, normal mood/affect, oriented x 3 Lymphatic: + pertinent finding (maculopapular rash on extremities but clear torso. ) Laboratory Results 10/01/16 07:06 Test 10/01/16 06:52 10/01/16 07:06 Bedside Glucose 99 mg/dl (70-99) Red Blood Count 4.15 M/uL (4.7-6.1) Mean Corpuscular Volume 76.6 fL (80-100) Mean Corpuscular Hemoglobin 24.1 pg (25-34) Mean Corpuscular Hemoglobin Concent 31.4 g/dl (32-36) RDW Standard Deviation 52.4 fL (36.4-46.3) RDW Coefficient of Variation 18.5 % (11.5-14.5) Mean Platelet Volume 8.4 fL (7.4-10.4) Nucleated RBC Absolute Count (auto) 0.02 K/uL (0-0) Nucleated Red Blood Cells % 0.1 % Assessment and Plan 61-year-old male with past medical history of PAD, COPD, stage IIIB lung cancer , left heel osteomyelitis, bipolar disorder presented to the ER with complaints of a diffuse pruritic rash which started about a week ago. He had been taking IV vancomycin and oral ciprofloxacin for his osteomyelitis which was stopped on 09/21/69. He had started Bactrim on 09/23 which was stopped on 09/27 Diffuse drug rash: Likely secondary to vancomycin or ciprofloxacin - Vancomycin and Cipro had been stopped - Switch IV to PO steroids, continue hydroxyzine as needed Left heel ulcer with osteomyelitis: - Continue wound VAC - Wound care consulted- appreciate input - ID consult- appreciate input - Continue Zosyn - nonweightbearing on left Hypertension: - Continue home meds- there were initially held due to low blood pressure COPD exacerbation: - Continue steroids which should help with COPD too - Continue inhalers, combivent Bipolar disorder: Continue Depakote BPH Continue tamsulosin and finasteride PAD - Continue aspirin DVT prophylaxis: Heparin Full code Disposition: Monitor in telemetry Resident Physician Supervision Note: I was present with Dr. Rajput during the history and exam. I discussed the case with the resident and agree with the findings and plan as documented in the note. Any exceptions or clarifications are listed here: The patient continues to improve; his torso is now nearly clear of the rash, though he has developed some peeling of skin across the upper anterior chest. The rash remains more pronounced in the extremities. He states that the discomfort and itching continues to improve. PLAN 1) we'll discontinue the IV antibiotics and transition him to by mouth prednisone. 2) to prevent a rebound phenomenon, I would suggest a rather long tapering course over 2 weeks. 3) once and antibiotic courses determined he may be able to go back to [facility]; will discuss with ID. Documented By: Everette Ray Continued [facility] stay due to: multiple IV medications needed [facility]charge planning: [facility] facility Resident Tracking Resident Involvement: Resident Care Provided Care Provided: Adult Hospital Medicine
[2016-10-01 11:51] VITALS: BP 148/76; PULSE 91; TEMP 36.9; O2SAT 98
[2016-10-01 16:00] VITALS: O2SAT 98
[2016-10-01] MEDS: ACETAMINOPHEN 325 MG TAB PO PRN (18:59)
--- NOTE | 2016-10-01 20:53 | Infectious Disease Progress Nt ---
Progress Note Date of Service Oct 01, 2016. Subjective Pt evaluation today including: conversation w/ patient, physical exam, chart review, lab review, review of studies, conversation w/ [facility] consultant, review of inpatient medication list patient feeling better with less pruritus. Rash improving. Remains afebrile, offering no new complaints. All Other Systems: Reviewed and Negative Medications Current Inpatient Medications Medications (Trade) Dose Ordered Sig/Rinku Route Start Time Stop Time Status Last Admin Dose Admin Heparin Sodium (Porcine) (Heparin Sq 5000 Unit/0.5ml) 5,000 unit Q8 SQ 09/28/16 22:00 10/28/16 21:59 10/01/16 14:28 5,000 UNIT Acetaminophen (Tylenol Tab) 650 mg Q4H PRN PO 09/28/16 19:00 10/28/16 18:59 10/01/16 18:59 650 MG Al Hydrox/Mg Hydrox/Simethicone (Maalox Max Susp) 15 ml Q4H PRN PO 09/28/16 19:00 10/28/16 18:59 Magnesium Hydroxide (Milk Of Magnesia Susp) 30 ml Q12H PRN PO 09/28/16 19:00 10/28/16 18:59 Ondansetron HCl (Zofran Inj) 4 mg Q6H PRN IV 09/28/16 19:00 10/28/16 18:59 Nitroglycerin (Nitrostat Tab) 0.4 mg UD PRN SL 09/28/16 19:00 10/28/16 18:59 Polyethylene (Miralax Powder Packet) 17 gm DAILY PRN PO 09/28/16 19:00 10/28/16 18:59 Ascorbic Acid (Vitamin C Tab) 500 mg BID PO 09/28/16 21:00 10/28/16 20:59 10/01/16 09:24 500 MG Aspirin (Ecotrin Tab) 81 mg QAM PO 09/29/16 09:00 10/29/16 08:59 10/01/16 09:24 81 MG Bisacodyl (Dulcolax Supp) 5 mg DAILY PRN [place] 09/28/16 19:00 10/28/16 18:59 Bupropion HCl (Wellbutrin-Sr Tab) 100 mg DAILY PO 09/29/16 09:00 10/29/16 08:59 10/01/16 09:24 100 MG Divalproex Sodium (Depakote Delay Rel Tab) 500 mg BID PO 09/28/16 21:00 10/28/16 20:59 10/01/16 09:25 500 MG Docusate Sodium (coLACE CAP) 100 mg QAM PO 09/29/16 09:00 10/29/16 08:59 10/01/16 09:24 100 MG Folic Acid (Folvite Tab) 1 mg QAM PO 09/29/16 09:00 10/29/16 08:59 10/01/16 09:24 1 MG Memantine (Namenda Tab) 5 mg QAM PO 09/29/16 09:00 10/29/16 08:59 10/01/16 09:25 5 MG Multivitamins/ Minerals (Multivitamin W/ Minerals Tab) 1 tab QAM PO 09/29/16 09:00 10/29/16 08:59 10/01/16 09:24 1 TAB Tamsulosin HCl (Flomax Cap) 0.4 mg QPM PO 09/28/16 21:00 10/28/16 20:59 09/30/16 20:10 0.4 MG Finasteride (Proscar Tab) 5 mg QAM PO 09/29/16 09:00 10/29/16 08:59 10/01/16 09:25 5 MG Hydroxyzine HCl (Vistaril Tab) 25 mg Q6H PRN PO 09/28/16 19:00 10/28/16 18:59 09/30/16 05:16 25 MG Pantoprazole Sodium (Protonix Tab) 40 mg QAM PO 09/29/16 09:00 10/29/16 08:59 10/01/16 09:25 40 MG Guaifenesin (Mucinex Contr Rel Tab) 1,200 mg Q12 PO 09/28/16 21:00 10/28/16 20:59 10/01/16 09:24 1,200 MG Heparin Sodium (Porcine) 5 ml 5 ml PRN PRN FLUSH 09/28/16 22:30 10/28/16 22:29 10/01/16 15:46 5 ML Piperacillin Sod/ Tazobactam Sod/ Dextrose (Zosyn Iv/D5 100ml) 115 ml @ 28.75 mls/ hr Q8H IV 09/29/16 02:00 10/06/16 01:59 10/01/16 18:46 28.75 MLS/HR Piperacillin Sod/ Tazobactam Sod (Consult) 1 ea UD PRN N/A 09/29/16 02:45 10/29/16 02:44 Albuterol/ Ipratropium (Combivent Respimat Inh) 1 puffs QID INH 09/30/16 13:00 10/30/16 12:59 10/01/16 18:46 1 PUFFS Metoprolol Succinate (Toprol Xl Tab) 25 mg QAM PO 10/01/16 09:00 10/31/16 08:59 10/01/16 09:24 25 MG Tramadol HCl (Ultram Tab) 50 mg QPM PO 10/01/16 21:00 10/31/16 20:59 Prednisone (PredniSONE TAB) 40 mg DAILY PO 10/02/16 08:00 11/01/16 08:59 Objective Vital Signs Date Time Temp Pulse Resp B/P Pulse Ox O2 Delivery O2 Flow Rate FiO2 10/01/16 16:00 98 Room Air 10/01/16 12:00 Room Air 10/01/16 11:51 36.9 91 18 148/76 98 Room Air 10/01/16 08:00 Room Air 10/01/16 07:26 36.6 86 18 160/87 95 Room Air 10/01/16 04:19 36.4 92 19 166/84 93 Room Air 10/01/16 04:00 Room Air 10/01/16 00:00 Room Air 09/30/16 23:20 36.9 94 18 148/71 95 Physical Exam General Appearance: WD/WN, no apparent distress Eyes: normal inspection, sclerae normal ENT: normal ENT inspection, pharynx normal Neck: supple, no adenopathy, trachea midline Respiratory/Chest: chest non-tender, lungs clear, normal breath sounds, no respiratory distress Cardiovascular: regular rate, rhythm, no gallop, no murmur Abdomen: normal bowel sounds, non tender, soft, no organomegaly ( Can) Extremities: non-tender, no calf tenderness Neurologic/Psychiatric: no motor/sensory deficits, oriented x 3 Skin: warm/dry, + pertinent finding ( diffuse rash starting to fade) Lymphatic: no adenopathy Laboratory Results Last 24 Hours Test 10/01/16 06:52 10/01/16 07:06 10/01/16 16:30 Bedside Glucose 99 mg/dl White Blood Count 18.90 K/uL Red Blood Count 4.15 M/uL Hemoglobin 10.0 g/dL Hematocrit 31.8 % Mean Corpuscular Volume 76.6 fL Mean Corpuscular Hemoglobin 24.1 pg Mean Corpuscular Hemoglobin Concent 31.4 g/dl RDW Standard Deviation 52.4 fL RDW Coefficient of Variation 18.5 % Platelet Count 371 K/uL Mean Platelet Volume 8.4 fL Nucleated RBC Absolute Count (auto) 0.02 K/uL Nucleated Red Blood Cells % 0.1 % C-Reactive Protein 1.59 mg/dl Assessment and Plan Osteomyelitis of left heel with prior cultures positive for MSSA and group B Strep, now with apparent drug rash, most likely from vancomycin, but ciprofloxacin also possible offending agent. For now, Zosyn alone should provide adequate coverage and appears to be improving.Pt. likely to need 6-8 weeks of IV therapy. Will discuss.
[2016-10-01] MEDS: TRAMADOL HCL 50 MG TAB PO SCH (21:20)
[2016-10-01] MEDS: TAMSULOSIN HCL 0.4 MG CAP PO SCH (22:40)
[2016-10-01 23:00] VITALS: BP 161/82; PULSE 81; TEMP 36.7; O2SAT 98
[2016-10-02] MEDS: PIPERACILL/TAZOBAC IV 3.375 GM in DEXTROSE 5% 100ML 100 ML IV SCH ×3 (02:47→17:47)
[2016-10-02] MEDS: HEPARIN SOD 5000 UNIT/0.5 ML CARP SQ SCH ×3 (05:32→21:30)
[2016-10-02 07:03] LABS: BUN/CREATININE RATIO 24.5 (10-20); CALCIUM 8.6 mg/dl (8.5-10.1); CREATININE 0.79 mg/dl (0.60-1.40); POTASSIUM 4.1 mmol/L (3.5-5.1)
[2016-10-02 07:15] VITALS: BP 152/82; PULSE 73; TEMP 36.6; O2SAT 98
[2016-10-02] MEDS: DOCUSATE SODIUM 100 MG CAP PO SCH (08:32)
[2016-10-02] MEDS: IPRATROPIUM BROMIDE/ALBUTEROL respimat INH INH SCH ×4 (08:32→21:30)
[2016-10-02] MEDS: DIVALPROEX SODIUM 500 MG DELAY RELEASE TAB PO SCH ×2 (08:33→21:29)
[2016-10-02] MEDS: ASCORBIC ACID 500 MG TAB PO SCH ×2 (08:36→21:29)
[2016-10-02] MEDS: GUAIFENESIN 600 MG TABCR PO SCH ×2 (08:36→21:27)
[2016-10-02] MEDS: ASPIRIN 81 MG ECTAB PO SCH (09:29)
[2016-10-02] MEDS: MEMANTINE 5 MG TAB PO SCH (09:30)
[2016-10-02] MEDS: CEROVITE ADV FORMULA TAB PO SCH (09:30)
[2016-10-02] MEDS: PANTOprazole SOD 40 MG TAB PO SCH (09:31)
[2016-10-02] MEDS: FINASTERIDE 5 MG TAB PO SCH (09:31)
[2016-10-02] MEDS: METOPROLOL SUCC 25MG EXT REL TAB PO SCH (09:31)
[2016-10-02] MEDS: BuPROPion SR 100 MG TABCR PO SCH (09:32)
[2016-10-02 14:48] VITALS: BP 137/82; PULSE 75; TEMP 36.7; O2SAT 98
--- NOTE | 2016-10-02 14:55 | Family Medicine Progress Note ---
Progress Note Date of Service Oct 02, 2016. Subjective Pt seen and examined at bedside. No acute events overnight. Pt reports pain is minimal from the osteomyelitis and there has been no recurrent rash. He reports no fever, CRISOSTOMO, palpitations, n/v, SOB, paresthesias, swelling. Constitutional: No chills, No fatigue, No fever, No sweats Respiratory: No cough, No dyspnea at rest, No shortness of breath Cardiovascular: No chest pain, No edema, No palpitations Abdomen: No constipation, No diarrhea, No nausea, No pain, No vomiting Skin: + problem reported (osteo L foot) Medications Current Inpatient Medications Medications (Trade) Dose Ordered Sig/Rinku Route Start Time Stop Time Status Last Admin Dose Admin Heparin Sodium (Porcine) (Heparin Sq 5000 Unit/0.5ml) 5,000 unit Q8 SQ 09/28/16 22:00 10/28/16 21:59 10/01/16 14:28 5,000 UNIT Acetaminophen (Tylenol Tab) 650 mg Q4H PRN PO 09/28/16 19:00 10/28/16 18:59 10/01/16 18:59 650 MG Al Hydrox/Mg Hydrox/Simethicone (Maalox Max Susp) 15 ml Q4H PRN PO 09/28/16 19:00 10/28/16 18:59 Magnesium Hydroxide (Milk Of Magnesia Susp) 30 ml Q12H PRN PO 09/28/16 19:00 10/28/16 18:59 Ondansetron HCl (Zofran Inj) 4 mg Q6H PRN IV 09/28/16 19:00 10/28/16 18:59 Nitroglycerin (Nitrostat Tab) 0.4 mg UD PRN SL 09/28/16 19:00 10/28/16 18:59 Polyethylene (Miralax Powder Packet) 17 gm DAILY PRN PO 09/28/16 19:00 10/28/16 18:59 Ascorbic Acid (Vitamin C Tab) 500 mg BID PO 09/28/16 21:00 10/28/16 20:59 10/02/16 08:36 500 MG Aspirin (Ecotrin Tab) 81 mg QAM PO 09/29/16 09:00 10/29/16 08:59 10/02/16 09:29 81 MG Bisacodyl (Dulcolax Supp) 5 mg DAILY PRN [place] 4/25/17 19:00 10/28/16 18:59 Bupropion HCl (Wellbutrin-Sr Tab) 100 mg DAILY PO 09/29/16 09:00 10/29/16 08:59 10/02/16 09:32 100 MG Divalproex Sodium (Depakote Delay Rel Tab) 500 mg BID PO 09/28/16 21:00 10/28/16 20:59 10/02/16 08:33 500 MG Docusate Sodium (coLACE CAP) 100 mg QAM PO 09/29/16 09:00 10/29/16 08:59 10/01/16 09:24 100 MG Folic Acid (Folvite Tab) 1 mg QAM PO 09/29/16 09:00 10/29/16 08:59 10/02/16 09:30 1 MG Memantine (Namenda Tab) 5 mg QAM PO 09/29/16 09:00 10/29/16 08:59 10/02/16 09:30 5 MG Multivitamins/ Minerals (Multivitamin W/ Minerals Tab) 1 tab QAM PO 09/29/16 09:00 10/29/16 08:59 10/02/16 09:30 1 TAB Tamsulosin HCl (Flomax Cap) 0.4 mg QPM PO 09/28/16 21:00 10/28/16 20:59 10/01/16 22:40 0.4 MG Finasteride (Proscar Tab) 5 mg QAM PO 09/29/16 09:00 10/29/16 08:59 10/02/16 09:31 5 MG Hydroxyzine HCl (Vistaril Tab) 25 mg Q6H PRN PO 09/28/16 19:00 10/28/16 18:59 09/30/16 05:16 25 MG Pantoprazole Sodium (Protonix Tab) 40 mg QAM PO 09/29/16 09:00 10/29/16 08:59 10/02/16 09:31 40 MG Guaifenesin (Mucinex Contr Rel Tab) 1,200 mg Q12 PO 09/28/16 21:00 10/28/16 20:59 10/02/16 08:36 1,200 MG Heparin Sodium (Porcine) 5 ml 5 ml PRN PRN FLUSH 09/28/16 22:30 5/25/17 22:29 10/02/16 05:35 5 ML Piperacillin Sod/ Tazobactam Sod/ Dextrose (Zosyn Iv/D5 100ml) 115 ml @ 28.75 mls/ hr Q8H IV 09/29/16 02:00 10/06/16 01:59 10/02/16 09:32 28.75 MLS/HR Piperacillin Sod/ Tazobactam Sod (Consult) 1 ea UD PRN N/A 09/29/16 02:45 10/29/16 02:44 Albuterol/ Ipratropium (Combivent Respimat Inh) 1 puffs QID INH 09/30/16 13:00 10/30/16 12:59 10/02/16 12:04 1 PUFFS Metoprolol Succinate (Toprol Xl Tab) 25 mg QAM PO 10/01/16 09:00 10/31/16 08:59 10/02/16 09:31 25 MG Tramadol HCl (Ultram Tab) 50 mg QPM PO 10/01/16 21:00 10/31/16 20:59 10/01/16 21:20 50 MG Prednisone (PredniSONE TAB) 40 mg DAILY PO 10/02/16 08:00 11/01/16 08:59 10/02/16 08:36 40 MG Objective Vital Signs Date Time Temp Pulse Resp B/P Pulse Ox O2 Delivery O2 Flow Rate FiO2 10/02/16 14:48 36.7 75 18 137/82 98 10/02/16 08:00 Room Air 10/02/16 07:15 36.6 73 18 152/82 98 10/02/16 00:55 Room Air 10/01/16 23:00 36.7 81 18 161/82 98 Room Air 10/01/16 16:00 98 Room Air Physical Exam General Appearance: WD/WN, no apparent distress Respiratory/Chest: chest non-tender, no respiratory distress, + wheezing ( diffuse) Cardiovascular: regular rate, rhythm, no edema, no gallop, no murmur Abdomen: normal bowel sounds, non tender, soft, no organomegaly Laboratory Results 10/02/16 05:30 Test 10/01/16 16:30 10/02/16 05:30 C-Reactive Protein 1.59 mg/dl (0-0.29) Anion Gap 7.0 mmol/L (3-11) Est Creatinine Clear Calc Drug Dose 102.0 ml/min Estimated GFR () 111.5 Estimated GFR (Non- 96.2 BUN/Creatinine Ratio 24.5 (10-20) Calcium Level 8.6 mg/dl (8.5-10.1) Assessment and Plan 61 y/o male h/o PAD, COPD, lung Ca p/w L heel osteo and drug related rash Diffuse drug rash - improving on PO steroid taper and hydroxyzine L heel ulcer w/ osteo - wound vac - Infectious disease aware and input appreciated - continue zosyn - will need extended course of abx for this as outpatient @ [facility] (to d/w case management) - NWB Hypertension - continue home meds COPD exacerbation - continue steroids, inhalers, combivent Bipolar disorder - continue Depakote BPH - continue tamsulosin and finasteride PAD - continue aspirin DVT PPX: Heparin Full code
[2016-10-02] MEDS: TRAMADOL HCL 50 MG TAB PO SCH (21:27)
[2016-10-02] MEDS: TAMSULOSIN HCL 0.4 MG CAP PO SCH (21:30)
[2016-10-02 23:43] VITALS: BP 159/81; PULSE 71; TEMP 36.7; O2SAT 96
[2016-10-03] MEDS: PIPERACILL/TAZOBAC IV 3.375 GM in DEXTROSE 5% 100ML 100 ML IV SCH ×3 (01:36→17:30)
[2016-10-03] MEDS: HEPARIN SOD 5000 UNIT/0.5 ML CARP SQ SCH ×3 (05:24→21:50)
[2016-10-03 07:29] VITALS: BP 133/80; PULSE 62; TEMP 36.6; O2SAT 97
[2016-10-03] MEDS: DOCUSATE SODIUM 100 MG CAP PO SCH (09:18)
[2016-10-03] MEDS: IPRATROPIUM BROMIDE/ALBUTEROL respimat INH INH SCH ×4 (10:12→20:07)
[2016-10-03] MEDS: DIVALPROEX SODIUM 500 MG DELAY RELEASE TAB PO SCH ×2 (10:13→20:09)
[2016-10-03] MEDS: ASPIRIN 81 MG ECTAB PO SCH (10:14)
[2016-10-03] MEDS: CEROVITE ADV FORMULA TAB PO SCH (10:15)
[2016-10-03] MEDS: MEMANTINE 5 MG TAB PO SCH (10:15)
[2016-10-03] MEDS: METOPROLOL SUCC 25MG EXT REL TAB PO SCH (10:16)
[2016-10-03] MEDS: PANTOprazole SOD 40 MG TAB PO SCH (10:16)
[2016-10-03] MEDS: FINASTERIDE 5 MG TAB PO SCH (10:16)
[2016-10-03] MEDS: BuPROPion SR 100 MG TABCR PO SCH (10:17)
[2016-10-03] MEDS: ASCORBIC ACID 500 MG TAB PO SCH ×2 (10:17→20:08)
[2016-10-03] MEDS: GUAIFENESIN 600 MG TABCR PO SCH ×2 (10:17→20:10)
--- NOTE | 2016-10-03 15:15 | Family Medicine Progress Note ---
Progress Note Date of Service Oct 03, 2016. Subjective Pt seen and examined at bedside. No acute events overnight. Pt reports no pain at the site of the osteo at present. Reports no CRISOSTOMO, fever, lightheadedness, CP/ SOB, sensory changes, rashes. Constitutional: No chills, No fatigue, No fever, No sweats Respiratory: No cough, No dyspnea at rest, No shortness of breath, No wheezing Cardiovascular: No chest pain, No edema, No palpitations Abdomen: No constipation, No diarrhea, No nausea, No pain, No vomiting Musculoskeletal: No joint pain, No swelling Skin: No itch, No new/changing skin lesions, No rash Medications Current Inpatient Medications Medications (Trade) Dose Ordered Sig/Rinku Route Start Time Stop Time Status Last Admin Dose Admin Heparin Sodium (Porcine) (Heparin Sq 5000 Unit/0.5ml) 5,000 unit Q8 SQ 09/28/16 22:00 10/28/16 21:59 10/01/16 14:28 5,000 UNIT Acetaminophen (Tylenol Tab) 650 mg Q4H PRN PO 09/28/16 19:00 10/28/16 18:59 10/01/16 18:59 650 MG Al Hydrox/Mg Hydrox/Simethicone (Maalox Max Susp) 15 ml Q4H PRN PO 09/28/16 19:00 10/28/16 18:59 Magnesium Hydroxide (Milk Of Magnesia Susp) 30 ml Q12H PRN PO 09/28/16 19:00 10/28/16 18:59 Ondansetron HCl (Zofran Inj) 4 mg Q6H PRN IV 09/28/16 19:00 10/28/16 18:59 Nitroglycerin (Nitrostat Tab) 0.4 mg UD PRN SL 09/28/16 19:00 10/28/16 18:59 Polyethylene (Miralax Powder Packet) 17 gm DAILY PRN PO 09/28/16 19:00 10/28/16 18:59 Ascorbic Acid (Vitamin C Tab) 500 mg BID PO 09/28/16 21:00 10/28/16 20:59 10/03/16 10:17 500 MG Aspirin (Ecotrin Tab) 81 mg QAM PO 09/29/16 09:00 10/29/16 08:59 10/03/16 10:14 81 MG Bisacodyl (Dulcolax Supp) 5 mg DAILY PRN [place] 09/28/16 19:00 10/28/16 18:59 Bupropion HCl (Wellbutrin-Sr Tab) 100 mg DAILY PO 09/29/16 09:00 10/29/16 08:59 10/03/16 10:17 100 MG Divalproex Sodium (Depakote Delay Rel Tab) 500 mg BID PO 09/28/16 21:00 10/28/16 20:59 10/03/16 10:13 500 MG Docusate Sodium (coLACE CAP) 100 mg QAM PO 09/29/16 09:00 10/29/16 08:59 10/01/16 09:24 100 MG Folic Acid (Folvite Tab) 1 mg QAM PO 09/29/16 09:00 10/29/16 08:59 10/03/16 10:14 1 MG Memantine (Namenda Tab) 5 mg QAM PO 09/29/16 09:00 10/29/16 08:59 10/03/16 10:15 5 MG Multivitamins/ Minerals (Multivitamin W/ Minerals Tab) 1 tab QAM PO 09/29/16 09:00 10/29/16 08:59 10/03/16 10:15 1 TAB Tamsulosin HCl (Flomax Cap) 0.4 mg QPM PO 09/28/16 21:00 10/28/16 20:59 10/02/16 21:30 0.4 MG Finasteride (Proscar Tab) 5 mg QAM PO 09/29/16 09:00 10/29/16 08:59 10/03/16 10:16 5 MG Hydroxyzine HCl (Vistaril Tab) 25 mg Q6H PRN PO 09/28/16 19:00 10/28/16 18:59 09/30/16 05:16 25 MG Pantoprazole Sodium (Protonix Tab) 40 mg QAM PO 09/29/16 09:00 10/29/16 08:59 10/03/16 10:16 40 MG Guaifenesin (Mucinex Contr Rel Tab) 1,200 mg Q12 PO 09/28/16 21:00 10/28/16 20:59 10/03/16 10:17 1,200 MG Heparin Sodium (Porcine) 5 ml 5 ml PRN PRN FLUSH 09/28/16 22:30 10/28/16 22:29 10/02/16 05:35 5 ML Piperacillin Sod/ Tazobactam Sod/ Dextrose (Zosyn Iv/D5 100ml) 115 ml @ 28.75 mls/ hr Q8H IV 09/29/16 02:00 10/06/16 01:59 10/03/16 10:18 28.75 MLS/HR Piperacillin Sod/ Tazobactam Sod (Consult) 1 ea UD PRN N/A 09/29/16 02:45 10/29/16 02:44 Albuterol/ Ipratropium (Combivent Respimat Inh) 1 puffs QID INH 09/30/16 13:00 10/30/16 12:59 10/03/16 12:27 1 PUFFS Metoprolol Succinate (Toprol Xl Tab) 25 mg QAM PO 10/01/16 09:00 10/31/16 08:59 10/03/16 10:16 25 MG Tramadol HCl (Ultram Tab) 50 mg QPM PO 10/01/16 21:00 10/31/16 20:59 10/02/16 21:27 50 MG Prednisone (PredniSONE TAB) 40 mg DAILY PO 10/02/16 08:00 11/01/16 08:59 10/03/16 10:15 40 MG Objective Vital Signs Date Time Temp Pulse Resp B/P Pulse Ox O2 Delivery O2 Flow Rate FiO2 10/03/16 08:00 Room Air 10/03/16 07:29 36.6 62 16 133/80 97 Room Air 10/03/16 00:00 Room Air 10/02/16 23:43 36.7 71 20 159/81 96 Room Air 10/02/16 20:00 Room Air 10/02/16 16:00 Room Air Physical Exam General Appearance: WD/WN, no apparent distress Respiratory/Chest: chest non-tender, lungs clear, normal breath sounds, no respiratory distress Cardiovascular: regular rate, rhythm, no edema, no murmur Abdomen: normal bowel sounds, non tender, soft, no organomegaly Extremities: non-tender, + pertinent finding (wound vac in place, dressing C/D/ I) Assessment and Plan 61 y/o male h/o PAD, COPD, lung Ca p/w L heel osteo and drug related rash Diffuse drug rash - improving on PO steroid taper and hydroxyzine L heel ulcer w/ osteo - wound vac - PICC in place - case management aware of dispo - Infectious disease aware and input appreciated - continue zosyn - will need extended course of abx for this as outpatient @ [facility] - [facility] on [facility] Hypertension - continue home meds COPD exacerbation - continue steroids, inhalers, combivent Bipolar disorder - continue Depakote BPH - continue tamsulosin and finasteride PAD - continue aspirin DVT PPX: Heparin Full code
[2016-10-03 16:11] VITALS: BP 116/73; PULSE 75; TEMP 36.4; O2SAT 96
[2016-10-03] MEDS: TAMSULOSIN HCL 0.4 MG CAP PO SCH (20:09)
[2016-10-03] MEDS: TRAMADOL HCL 50 MG TAB PO SCH (20:10)
[2016-10-03 23:45] VITALS: BP 119/75; PULSE 75; TEMP 36.5; O2SAT 98
[2016-10-04] MEDS: PIPERACILL/TAZOBAC IV 3.375 GM in DEXTROSE 5% 100ML 100 ML IV SCH ×2 (02:18→10:36)
[2016-10-04] MEDS: HEPARIN SOD 5000 UNIT/0.5 ML CARP SQ SCH (05:31)
[2016-10-04 06:06] LABS: HEMATOCRIT 32.1 % (42-52); MEAN CELL VOLUME 77.3 fL (80-100); MEAN CORPUSCULAR HEMOGLOBIN 25.3 pg (25-34); MEAN CORPUSCULAR HGB CONC 32.7 g/dl (32-36); MEAN PLATELET VOLUME 8.3 fL (7.4-10.4); PLATELET COUNT 300 K/uL (130-400); RED BLOOD COUNT 4.15 M/uL (4.7-6.1)
[2016-10-04 06:40] LABS: CREATININE 0.96 mg/dl (0.60-1.40)
[2016-10-04 07:40] VITALS: BP 125/76; PULSE 68; TEMP 36.5; O2SAT 95
[2016-10-04 08:30] VITALS: O2SAT 95
[2016-10-04] MEDS: FINASTERIDE 5 MG TAB PO SCH (08:34)
[2016-10-04] MEDS: DIVALPROEX SODIUM 500 MG DELAY RELEASE TAB PO SCH (08:35)
[2016-10-04] MEDS: PANTOprazole SOD 40 MG TAB PO SCH (08:35)
[2016-10-04] MEDS: MEMANTINE 5 MG TAB PO SCH (08:35)
[2016-10-04] MEDS: GUAIFENESIN 600 MG TABCR PO SCH (08:36)
[2016-10-04] MEDS: CEROVITE ADV FORMULA TAB PO SCH (08:36)
[2016-10-04] MEDS: ASPIRIN 81 MG ECTAB PO SCH (08:36)
[2016-10-04] MEDS: METOPROLOL SUCC 25MG EXT REL TAB PO SCH (08:36)
[2016-10-04] MEDS: ASCORBIC ACID 500 MG TAB PO SCH (08:36)
[2016-10-04] MEDS: BuPROPion SR 100 MG TABCR PO SCH (08:36)
[2016-10-04] MEDS: IPRATROPIUM BROMIDE/ALBUTEROL respimat INH INH SCH ×2 (08:37→12:20)
[2016-10-04] MEDS: DOCUSATE SODIUM 100 MG CAP PO SCH (08:37)
[2016-10-04] MEDS ORDERED: PRED10TA PO (11:46)
[2016-10-04] MEDS ORDERED: [UNRECOGNIZED DRUG - CODE] IV (11:46)
--- NOTE | 2016-10-04 12:04 | Discharge Instructions ---
Discharge Instructions Date of Service October 04, 2016. Admission Reason for Admission: Drug Reaction, Sepsis Discharge Discharge Diagnosis / Problem: Drug reactioin rash, sepsis Discharge Goals Goal(s): Decrease discomfort, Improve function, Diagnostic testing, Therapeutic intervention Activity Recommendations Activity Level: Assistance Required Therapies: Physical Therapy, Occupational Therapy . Additional Information Patient informed of condition: Yes Advance Directives: No DNR: No Level of Care: Skilled Communicable Disease: No Prognosis: Stable Instructions / Follow-Up Instructions / Follow-Up Patient presented to the ER after developing a diffuse, severely pruritic and erythematous rash after being started on IV vancomycin and Cipro for his left foot osteomyelitis. Rash appeared to the secondary to a drug reaction. Although vancomycin appears more likely to be the offending agent, Cipro cannot be ruled out. Both antibiotics have been added to his allergy list. The patient was started on IV Solu-Medrol, which did help improve his rash. His antibiotics were discontinued. He was started on IV Zosyn to cover both has osteomyelitis as well as a possible bilateral pneumonia. Per infectious disease recommendations, the patient will be kept on 6 weeks of IV Zosyn through his PICC line. The patient presented septic to the ER, which could be secondary to his osteomyelitis or the possible pneumonia. His hypotension, however, could have been caused by systemic drug reaction. The patient remained afebrile throughout his stay and his leukocytosis has been improving. Now that the patient's rash is mostly resolved, he is stable for discharge back to [facility]. In addition to the Zosyn. The patient will finish an oral prednisone taper for the rash. Medications: *Cipro discontinued and added to allergy list *Continue Zosyn 3.375 gm IV q8h 6 weeks *Continue prednisone taper as follows: 20 mg 3 days, then 10 mg 3 days, then stop. First dose on 10/05 as patient received prednisone inpatient on 10/04 *Continue other home medications as prescribed. Follow up: *Please follow-up with a medical provider within one week following discharge to ensure resolution of the rash Current Hospital Diet Patient's current hospital diet: AHA Diet (Heart Healthy) Discharge Diet Recommended Diet: AHA Diet (Heart Healthy) Pending Studies Studies pending at discharge: no Physician Orders On Transfer Special Precautions: Fall precautions Dressing Changes: Wound VAC changes on Tuesday, Tuesday and Tuesday IV Therapy: Zosyn 6 weeks via patient's PICC line Vital Signs: Routine Laboratory Results Lipid Panel Test 09/03/16 04:30 Range/Units Triglycerides Level 79 0-150 mg/dl Cholesterol Level 138 0-200 mg/dl HDL Cholesterol 37 mg/dl Cholesterol/HDL Ratio 3.7 LDL Cholesterol, Calculated 85 mg/dl Medical Emergencies . Who to Call and When: Medical Emergencies: If at any time you feel your situation is an emergency, please call 911 immediately. . Non-Emergent Contact Non-Emergency issues call your: Primary Care Provider, Specialist (infectious disease) Call Non-Emergent contact if: you have a fever, your pain is not controlled, your pain is worsening, your pain is unusual for you, your pain is concerning you, wound has increased drainage, wound has increased redness, wound has increased pain, you have any medication questions . Past History Medical & Surgical History: (1) Drug reaction (2) Sepsis (3) Osteomyelitis . "Provider Documentation" section prepared by Laurie العلي. . Core Measure Problem Core Measures: None
[2016-10-04 13:08] VITALS: BP 125/76; PULSE 68; TEMP 36.5; O2SAT 95
--- NOTE | 2016-10-04 14:46 | Discharge Summary ---
Discharge Summary Date of Service October 04, 2016. (Laurie العلي .MAYCOL) Discharge Summary Admission Date: Sep 28, 2016 at 19:00 Discharge Date: October 04, 2016 Discharge Disposition: shelter facility ([facility]) Principal Diagnosis: Drug reaction rash Immunizations: Have You Had Influenza Vaccine: Yes History of Tetanus Vaccine?: Unknown History of Pneumococcal: No History of Hepatitis B Vaccine: Unknown (Laurie العلي PA-C) Medication Reconciliation New Medications: Piperacillin Sodium-Tazobactam (Piperacillin Sodium/ Tazo) 1 Inj Inj 3.375 GM IV Q8 for 42 Days, #42 DOSE Prednisone (Prednisone) 10 Mg Tab 10 MG PO UD for 6 Days, #9 TAB Take 2 tablets daily for 3 days, then 1 tablet daily for 3 days, then stop. First dose 10/05/16 Continued Medications: Acetaminophen (Tylenol) 500 Mg Tab 500 MG PO Q6H PRN for Pain or Fever, TAB NOT TO EXCEED 3 GRAMS PER 24 HOURS. Ascorbic Acid (Vitamin C) 500 Mg Tab 500 MG PO BID Aspirin (Aspirin Ec) 81 Mg Tab 81 MG PO QAM Bisacodyl (Dulcolax) 10 Mg Sup 1 SUPP OR DAILY PRN for Constipation, SUP IF NO BM ON DAY 3. Bupropion HCl (Bupropion HCl Sr) 100 Mg Tabcr 100 MG PO DAILY, #22 Divalproex Sodium (Depakote) 500 Mg Tab 500 MG PO BID for 30 Days, #60 TAB 2 Refills Docusate Sodium (Docusate Sodium) 100 Mg Cap 100 MG PO QAM for 7 Days, #7 CAP Dutasteride (Avodart) 0.5 Mg Cap 0.5 MG PO QAM, CAP Folic Acid (Folvite) 1 Mg Tab 1 MG PO QAM, TAB Magnesium Hydroxide (Milk of Magnesia) 30 Ml Susp 30 ML PO DAILY PRN for Constipation ON DAY 3 IN NO BM. Memantine (Namenda) 5 Mg Tab 5 MG PO QAM, TAB Metoprolol Succinate (Toprol Xl) 25 Mg Tabcr 25 MG PO QAM, #30 TAB Multiple Vitamins W/ Minerals (Therems M) 1 Tab Tab 1 TAB PO QAM Tamsulosin Hcl (Flomax) 0.4 Mg Cap 0.4 MG PO QPM, CAP Tramadol (Ultram) 50 Mg Tab 50 MG PO QPM, TAB Discontinued Medications: Ciprofloxacin Hcl (Cipro) 500 Mg Tab 500 MG PO BID, TAB Discharge Exam Patient reports feeling well. He denies any pruritus. Currently denies any pain in his left heel ulcer. The patient denies fevers, chills, sweats, chest pain, palpitations, claudication, cough, wheezing, shortness of breath, nausea, vomiting, abdominal pain, dysuria, hematuria, urinary retention, paralysis, weakness, numbness and tingling. Review of Systems: Constitutional: No chills, No fever, No sweats Eyes: No diplopia, No eye pain, No worsening of vision ENT: No hearing loss, No sore throat, No trouble swallowing Respiratory: No cough, No shortness of breath, No wheezing Cardiovascular: No chest pain, No edema, No palpitations Abdomen: No nausea, No pain, No vomiting Musculoskeletal: No joint pain, No muscle pain, No swelling Genitourinary - Male: No dysuria, No hematuria, No urinary retention Neurologic: No numbness/tingling, No paralysis, No weakness Integumentary: No color change, No itch, No rash Physical Exam: General Appearance: WD/WN, no apparent distress Eyes: normal inspection, PERRL, EOMI ENT: normal ENT inspection, hearing grossly normal, pharynx normal Neck: supple, no JVD, trachea midline Respiratory/Chest: lungs clear, normal breath sounds, no respiratory distress Cardiovascular: regular rate, rhythm, no gallop, no murmur Abdomen / GI: normal bowel sounds, non tender, soft Extremities: normal inspection, no calf tenderness, no pedal edema, + pertinent finding (left heel wound dressed and wound vac on) Neurologic/Psychiatric: alert, normal mood/affect, oriented x 3 Skin: normal color, warm/dry, no rash (Laurie العلي ., PA-C) Hospital Course 61 y/o male with a history of PAD, COPD, stage 3b lung cancer, left heel stage 4 ulcer with underlying osteomyelitis, and bipolar disorder presents to the ED with a diffuse, raised, erythematous, severely pruritic rash present for 1-2 weeks. The rash started after initiating IV vancomycin and cipro for his left foot osteomyelitis. 20% eosinophils on CBC diff, highly suggestive of drug allergy. His rash is not consistent with Wilson-Paul Syndrome or erythema multiforme. Rash secondary to drug reaction--likely due to vancomycin, but cannot rule out cipro as offending agent. Both added to allergy list -Admitted to telemetry. Transferred to med/surg 10/01 -Responded well to Solu-Medrol. Switched to Prednisone taper which will be continued on discharge: Prednisone 20 mg PO qd x 3 days, then 10 mg PO qd x 3 days, then stop Sepsis secondary to osteomyelitis vs ?PNA--meets criteria with hypotension, leukocytosis and suspected source of infection, although hypotension could be due to drug reaction. Resolved. -Given 2 fluid boluses in ER which improved BP -Abx per ID Left heel stage 4 ulcer w/osteomyelitis--stable -Infectious disease consulted, appreciate recs: Zosyn IV x 6-8 weeks. -Pt has PICC line in place. Continue Zosyn for 6 weeks -Continue wound vac, changed Tuesday, Tuesday and Tuesday -Wound care provider and nurse followed Possible b/l PNA -Zosyn as above per ID recs -Incentive spirometry -Mucinex BID COPD w/exacerbation--exacerbation resolved, COPD stable -Steroid taper as above -Combivent QID Hyponatremia--resolved -Chronic problem, likely secondary to SIADH from lung cancer -Fluid restriction 1500 cc/hr HTN--stable -Continue Toprol 25 mg PO qd Bipolar disorder -Continue Depakote 500 mg PO BID BPH -Continue Flomax 0.4 mg PO qd and dutasteride 0.5 mg PO qd DVT prophylaxis -Heparin 5000 units q8h Code Status -Level I, FULL RESUSCITATION STATUS Dispo -Return to [facility] with PICC line Total Time Spent: Greater than 30 minutes This includes examination of the patient, discharge planning, medication reconciliation, and communication with other providers. (Laurie العلي ., PA-C) I agree with PA assessment and plan and have seen and examined pt myself Resting comfortably in bed VSS Labs reviewed Agree with ID recs 6 weeks of zosyn IV via PICC line on discharge (Dejuan Hollingsworth D.O.) Discharge Instructions Please refer to the electronic Patient Visit Report (Discharge Instructions) for additional information. (Laurie العلي ., PA-C) Additional Copies To [place], [place]
[2016-10-06] MEDS ORDERED: ZSYI45 IV (08:45)
[2016-10-20] MEDS ORDERED: LINE1TAB2 PO (10:19)
[2016-10-20] MEDS ORDERED: CLOTCRE33 TOP (10:19)
[2016-11-03] MEDS ORDERED: CLOTCRE33 TOP (09:38)
[2016-11-12] MEDS ORDERED: MELA1TAB54 PO (10:07)
[2016-11-12] MEDS ORDERED: LINE1TAB6 PO (10:07)
[2016-11-12] MEDS ORDERED: HYDR-3126 PO (10:07)
[2016-11-12] MEDS ORDERED: NMN5 PO (10:07)
[2016-11-12] MEDS ORDERED: ARTIOIN OP (10:07)
[2016-11-12] MEDS ORDERED: PRLSR20 PO (10:07)
[2016-11-12] MEDS ORDERED: MULTTAB63 PO (10:07)
[2016-11-12] MEDS ORDERED: TEMA15CA4 PO (10:08)
[2016-11-17] MEDS ORDERED: LINE1TAB6 PO (09:49)
[2016-12-15] MEDS ORDERED: LORA-741 PO (09:27)
[2016-12-29] MEDS ORDERED: LINE1TAB6 PO ×2 (09:43→09:44)
[2017-02-23] MEDS ORDERED: BUPR-83 PO (08:26)
[2017-02-23] MEDS ORDERED: DIVA500T59 PO (08:26)
[2017-02-23] MEDS ORDERED: QUET1TAB30 PO (08:26)
[2017-02-23] MEDS ORDERED: CYAN10005 PO (08:27)
== END 2016-10-04 14:30 | DRG 606 ==
LOC: ENRESERVTM → ENRESERVDT → EDBD 14:35 → C.EDA 14:36 → C.2T 19:00 → C.4E 10-01 14:15
PROVIDERS: ADMIT Internal Medicine; ATTEND Family Medicine
DX: L27.0 Generalized skin eruption due to drugs and medicaments taken internally (principal); A41.9 Sepsis, unspecified organism; L89.624 Pressure ulcer of left heel, stage 4; J18.9 Pneumonia, unspecified organism; M86.9 Osteomyelitis, unspecified; J44.0 Chronic obstructive pulmonary disease with (acute) lower respiratory infection; J44.1 Chronic obstructive pulmonary disease with (acute) exacerbation; E22.2 Syndrome of inappropriate secretion of antidiuretic hormone; C34.90 Malignant neoplasm of unspecified part of unspecified bronchus or lung; T36.8X5A Adverse effect of other systemic antibiotics, initial encounter; D63.8 Anemia in other chronic diseases classified elsewhere; R79.9 Abnormal finding of blood chemistry, unspecified; I10 Essential (primary) hypertension; F31.9 Bipolar disorder, unspecified; I73.9 Peripheral vascular disease, unspecified; N40.0 Benign prostatic hyperplasia without lower urinary tract symptoms; F10.21 Alcohol dependence, in remission; Z87.891 Personal history of nicotine dependence; Z98.62 Peripheral vascular angioplasty status; Z79.2 Long term (current) use of antibiotics; Z79.82 Long term (current) use of aspirin; Z79.899 Other long term (current) drug therapy; Z88.1 Allergy status to other antibiotic agents; Z88.2 Allergy status to sulfonamides; Z83.3 Family history of diabetes mellitus; Z82.49 Family history of ischemic heart disease and other diseases of the circulatory system; Z82.0 Family history of epilepsy and other diseases of the nervous system; T14.8 Other injury of unspecified body region; X58.XXXA Exposure to other specified factors, initial encounter

== ENCOUNTER → 2016-09-28 | Outpatient (CLI) | payer OTHER ==
[2016-09-28 08:49] LABS: HEMATOCRIT 34.1 % (42-52); MEAN CELL VOLUME 76.1 fL (80-100); MEAN CORPUSCULAR HEMOGLOBIN 25.2 pg (25-34); MEAN CORPUSCULAR HGB CONC 33.1 g/dl (32-36); MEAN PLATELET VOLUME 8.8 fL (7.4-10.4); PLATELET COUNT 373 K/uL (130-400); RED BLOOD COUNT 4.48 M/uL (4.7-6.1); WHITE BLOOD COUNT 14.93 K/uL (4.8-10.8)
[2016-09-28 09:15] LABS: ANISOCYTOSIS PRESENT; COMPLETE YES; ECHINOCYTES 1+; EOSINOPHIL % 12.6 %; LYMPH ABS # 2.02 K/uL (1.2-3.4); LYMPHOCYTE % 13.5 %; META ABS # 0.13 K/uL (0-0); METAMYELOCYTE % 0.9 %; MICROCYTOSIS PRESENT; NEUTROPHILS % 70.3 %
[2016-09-28 09:24] LABS: ALT/SGPT 27 U/L (12-78); AST/SGOT 13 U/L (15-37); BLOOD UREA NITROGEN 27 mg/dl (7-18); BUN/CREATININE RATIO 20.9 (10-20); CALCIUM 8.5 mg/dl (8.5-10.1); CARBON DIOXIDE 23 mmol/L (21-32); CHLORIDE 98 mmol/L (98-107); GLUCOSE 110 mg/dl (70-99); POTASSIUM 4.6 mmol/L (3.5-5.1); SODIUM 132 mmol/L (136-145)
[2016-09-28 09:26] LABS: ALB/GLOB RATIO 0.8 (0.9-2); ALKALINE PHOSPHATASE 62 U/L (45-117)
== END ==
LOC: C.LABCC 08:18
PROVIDERS: ATTEND Internal Medicine
DX: T14.8 Other injury of unspecified body region (principal); X58.XXXA Exposure to other specified factors, initial encounter

== ENCOUNTER → 2016-10-27 | Outpatient (CLI) | payer OTHER ==
[~2016-10-27] MED LIST changes: -ACET-1222 PO; +ACET-1256 PO; +ARTIOIN OP; +ASCA500 PO; -ASCO500C43 PO; -BENZ-89 PO; +BISA10SU38 PR; +BUPR-83 PO; -BUPR100T8 PO; +CLOTCRE33 TOP; +CYAN10005 PO; +DIVA500T5 PO; -DOCU100C PO; +DOCU100C31 PO; +HYDR-3126 PO; +LINE1TAB2 PO; +LINE1TAB6 PO; +LORA-741 PO; +MELA1TAB54 PO; +MOMLX PO; -MULT-506 PO; +MULTTAB63 PO; -NICO1DIS9 TOP; +PRLSR20 PO; -PROT1POW; +QUET1TAB30 PO; -SULF800T23 PO; +TEMA15CA4 PO; +TRAM-10 PO; +WLLSR100 PO; -ZINC1CAP PO
[2016-10-27 12:42] LABS: BLOOD UREA NITROGEN 8 mg/dl (7-18); BUN/CREATININE RATIO 12.6 (10-20); CALCIUM 8.3 mg/dl (8.5-10.1); CARBON DIOXIDE 31 mmol/L (21-32); CHLORIDE 96 mmol/L (98-107); GLUCOSE 87 mg/dl (70-99); POTASSIUM 3.9 mmol/L (3.5-5.1); SODIUM 133 mmol/L (136-145)
== END ==
LOC: C.LABCC 12:35
PROVIDERS: ATTEND Internal Medicine
DX: I10 Essential (primary) hypertension (principal)

== ENCOUNTER → 2016-11-18 | Day surgery (SDC) | payer OTHER ==
[2016-11-12 10:08] VITALS: Ht 172.7 cm; Wt 81.4 kg
[~2016-11-18] VITALS: Ht 172.7 cm; Wt 81.4 kg
[~2016-11-18] MED LIST changes: -CLOTCRE33 TOP; +LIDOCAINE HCL 2% 2 ML VIAL (20MG/ML) ONE; -LINE1TAB2 PO; +PROPOFOL IV EMULSION 10 MG/ML 20 ML VIAL IV ONE
--- NOTE | 2016-11-18 14:02 | Endo History and Physical ---
History & Physical Date of Service: Nov 18, 2016. Chief Complaint: DYSPHAGIA Referring Physician: DR Alec GLOVER History of Present Illness 61 yo CM who presents for EGD secondary to dysphagia. Past Medical History Other Psy. Disorders, Anxiety, Reflux, Cancer, Syncopal Episodes, Hypertension Past Surgical History Hx Cardiac Surgery: No Hx Internal Defibrillator: No Hx Pacemaker: Yes Hx Abdominal Surgery: No Hx Post-Op Nausea and Vomiting: No Hx Cancer Surgery: No Hx Thoracic Surgery: No Hx Orthopedic: No Hx Urinary Tract Surgery: Yes (VASECTOMY) Social History Smoking Status: Former Smoker Hx Substance Use: Yes (MARIJUANA PAST USE) Hx Alcohol Use: Yes (HX ALCOHOL ABUSE ) Allergies Coded Allergies: Ciprofloxacin (Verified Allergy, Unknown, RASH, 11/18/16) Vancomycin (Verified Allergy, Unknown, RASH, 11/18/16) Current Medications Reported Home Medications Medications Dose Route/Sig Max Daily Dose Days Date Category Dose Instructions Zyvox (Linezolid) 600 Mg Tab 600 Mg PO BID 30 11/17/16 Rx Restoril (Temazepam) 15 Mg Cap 1-2 Tab PO HS PRN 11/12/16 Reported Atarax (Hydroxyzine Hcl) 50 Mg Tab 50 Mg PO Q6H PRN 11/12/16 Reported Lacri-Lube Sop Oph Oint (Artificial Tears) Oint 0.25-0.5 Inch OP TID 11/12/16 Reported TO THE AFFECTED EYE UP TO QID PRN Therems M (Multiple Vitamins W/ Minerals) 1 Tab Tab 1 Tab PO QAM 11/12/16 Reported Namenda (Memantine) 5 Mg Tab 5 Mg PO QAM 11/12/16 Reported Melatonin 5 Mg Tab 1 Tab PO HS 11/12/16 Reported Prilosec (Omeprazole) 20 Mg Capcr 20 Mg PO QAM 11/12/16 Reported Bupropion HCl Sr (Bupropion HCl) 100 Mg Tabcr 100 Mg PO QAM 09/28/16 Reported Dulcolax (Bisacodyl) 10 Mg Sup 1 Supp NV DAILY PRN 09/28/16 Reported IF NO BM ON DAY 3. Milk of Magnesia (Magnesium Hydroxide) 30 Ml Susp 30 Ml PO DAILY PRN 09/28/16 Reported ON DAY 3 IN NO BM. Ultram (Tramadol HCl) 50 Mg Tab 50 Mg PO QPM 09/28/16 Reported Flomax (Tamsulosin Hcl) 0.4 Mg Cap 0.4 Mg PO QPM 09/28/16 Reported Toprol Xl (Metoprolol Succinate) 25 Mg Tabcr 25 Mg PO QAM 09/28/16 Reported Folvite (Folic Acid) 1 Mg Tab 1 Mg PO QAM 09/28/16 Reported Avodart (Dutasteride) 0.5 Mg Cap 0.5 Mg PO QAM 09/28/16 Reported Docusate Sodium 100 Mg Cap 100 Mg PO QAM 7 09/28/16 Reported Depakote (Divalproex Sodium) 500 Mg Tab 500 Mg PO BID 30 09/28/16 Reported Aspirin Ec (Aspirin) 81 Mg Tab 81 Mg PO QAM 09/28/16 Reported Vitamin C (Ascorbic Acid) 500 Mg Tab 500 Mg PO BID 09/28/16 Reported Tylenol (Acetaminophen) 500 Mg Tab 500 Mg PO Q6H PRN 09/28/16 Reported NOT TO EXCEED 3 GRAMS PER 24 HOURS. Vital Signs Weight (Kilograms): 81.36 Height (Feet): 0 Height (Inches): 68 Date Time Temp Pulse Resp B/P (MAP) Pulse Ox O2 Delivery O2 Flow Rate FiO2 11/18/16 13:58 36.6 87 20 120/66 (84) 94 Room Air Physical Exam General Appearance: WD/WN, no apparent distress Respiratory/Chest: Auscultation: breath sounds normal Cardiovascular: Heart Auscultation: RRR Abdomen: Bowel Sounds: normal Inspection & Palpation: soft, non-distended, no tenderness, guarding & rebound Assessment and Plan Assessment: 61 yo CM who presents for EGD secondary to dysphagia. Plan: Proceed with EGD.
--- NOTE | 2016-11-18 14:42 | GI REPORT ---
Procedure Date: 11/18/2016 2:26 PM Procedure: Upper GI endoscopy Indications: Dysphagia Medicines: Monitored Anesthesia Care Complications: No immediate complications. Estimated Blood Loss: Estimated blood loss: none. Procedure: Pre-Anesthesia Assessment: - Prior to the procedure, a History and Physical was performed, and patient medications and allergies were reviewed. The patient's tolerance of previous anesthesia was also reviewed. The risks and benefits of the procedure and the sedation options and risks were discussed with the patient. All questions were answered, and informed consent was obtained. Prior Anticoagulants: The patient has taken aspirin, last dose was 7 days prior to procedure. ASA Grade Assessment: III - A patient with severe systemic disease. After reviewing the risks and benefits, the patient was deemed in satisfactory condition to undergo the procedure. After obtaining informed consent, the endoscope was passed under direct vision. Throughout the procedure, the patient's blood pressure, pulse, and oxygen saturations were monitored continuously. The scope was introduced through the mouth, and advanced to the second part of duodenum. The upper GI endoscopy was accomplished without difficulty. The patient tolerated the procedure well. Findings: A few moderate benign-appearing, intrinsic stenoses were found. The narrowest stenosis measured 1.5 cm (inner diameter) x less than one cm (in length) and were traversed. A TTS dilator was passed through the scope. Dilation with a 15-16.5-18 mm balloon (to a maximum balloon size of 18 mm) dilator was performed. The dilation site was examined and showed moderate improvement in luminal narrowing. Multiple biopsies were obtained with cold forceps for histology in a targeted manner in the middle third of the esophagus. A small hiatus hernia was present. The examined duodenum was normal. Impression: - Benign-appearing esophageal stenoses. Dilated. - Small hiatus hernia. - Normal examined duodenum. - Multiple biopsies were obtained in the middle third of the esophagus. Recommendation: - Resume previous diet. - Continue present medications. - Repeat the upper endoscopy PRN for retreatment. - Await pathology results. - Return to GI clinic as previously scheduled. Andres Blake DO 11/18/2016 2:41:33 PM This report has been signed electronically. Note Initiated On: 11/18/2016 2:26 PM I attest to the content of the Intraoperative Record and orders documented therein, exceptions below
--- NOTE | 2016-11-18 14:45 | Discharge Instructions ---
Endoscopy Patient Instructions Date / Procedure(s) Performed Nov 18, 2016. EGD Allergy Information Coded Allergies: Ciprofloxacin (Verified Allergy, Unknown, RASH, 11/18/16) Vancomycin (Verified Allergy, Unknown, RASH, 11/18/16) Discharge Date / Findings Nov 18, 2016. Esophageal stricture s/p dilation to 18 mm Hiatal hernia Mid-esophageal biopsies Medication Instructions Stopped Medication(s): ASA, OK to resume all medications today as prescribed Reported Home Medications Medications Dose Route/Sig Max Daily Dose Days Date Category Dose Instructions Zyvox (Linezolid) 600 Mg Tab 600 Mg PO BID 30 11/17/16 Rx Restoril (Temazepam) 15 Mg Cap 1-2 Tab PO HS PRN 11/12/16 Reported Atarax (Hydroxyzine Hcl) 50 Mg Tab 50 Mg PO Q6H PRN 11/12/16 Reported Lacri-Lube Sop Oph Oint (Artificial Tears) Oint 0.25-0.5 Inch OP TID 11/12/16 Reported TO THE AFFECTED EYE UP TO QID PRN Therems M (Multiple Vitamins W/ Minerals) 1 Tab Tab 1 Tab PO QAM 11/12/16 Reported Namenda (Memantine) 5 Mg Tab 5 Mg PO QAM 11/12/16 Reported Melatonin 5 Mg Tab 1 Tab PO HS 11/12/16 Reported Prilosec (Omeprazole) 20 Mg Capcr 20 Mg PO QAM 11/12/16 Reported Bupropion HCl Sr (Bupropion HCl) 100 Mg Tabcr 100 Mg PO QAM 09/28/16 Reported Dulcolax (Bisacodyl) 10 Mg Sup 1 Supp [place] DAILY PRN 09/28/16 Reported IF NO BM ON DAY 3. Milk of Magnesia (Magnesium Hydroxide) 30 Ml Susp 30 Ml PO DAILY PRN 09/28/16 Reported ON DAY 3 IN NO BM. Ultram (Tramadol HCl) 50 Mg Tab 50 Mg PO QPM 09/28/16 Reported Flomax (Tamsulosin Hcl) 0.4 Mg Cap 0.4 Mg PO QPM 09/28/16 Reported Toprol Xl (Metoprolol Succinate) 25 Mg Tabcr 25 Mg PO QAM 09/28/16 Reported Folvite (Folic Acid) 1 Mg Tab 1 Mg PO QAM 09/28/16 Reported Avodart (Dutasteride) 0.5 Mg Cap 0.5 Mg PO QAM 09/28/16 Reported Docusate Sodium 100 Mg Cap 100 Mg PO QAM 7 09/28/16 Reported Depakote (Divalproex Sodium) 500 Mg Tab 500 Mg PO BID 30 09/28/16 Reported Aspirin Ec (Aspirin) 81 Mg Tab 81 Mg PO QAM 09/28/16 Reported Vitamin C (Ascorbic Acid) 500 Mg Tab 500 Mg PO BID 09/28/16 Reported Tylenol (Acetaminophen) 500 Mg Tab 500 Mg PO Q6H PRN 09/28/16 Reported NOT TO EXCEED 3 GRAMS PER 24 HOURS. Provider Instructions Activity Restrictions - No exercising or heavy lifting for 24 hours. - Do not drink alcohol the day of the procedure. - Do not drive a car or operate machinery until the day after the procedure. - Do not make any important decisions or sign important papers in 24 hours after the procedure. Following Day: - Return to full activity which may include returning to work/school. Diet Start your diet with liquids and light foods (jello, soup, juice, toast). Then eat your usual diet if not nauseated. Treatment For Common After Affects For mild abdominal pain, bloating, or excessive gas: - Rest - Eat lightly - Lie on right side Follow-Up Information Follow-up with DR Alec GLOVER as scheduled Anesthesia Information What You Should Know You have had a procedure that required some medicine to reduce anxiety and discomfort. This treatment is called moderate sedation. After receiving the treatment, you may be sleepy, but you will be able to breathe on your own. The effects of the treatment may last for several hours. Follow these instructions along with Activity/Diet recommendations noted above: * Do NOT do anything where dizziness or clumsiness would be dangerous. * Rest quietly at home today, then you can be up and about tomorrow. * Have a responsible person stay with you the rest of today. * You may have had an I.V. today. If so, you may take the dressing off later today. Recommendations Call your doctor if: * Trouble breathing * Continuous vomiting for more than 24 hours * Temperature above 101 degrees * Severe abdominal pain or bloating * Pain not relieved by pain medicine ordered * There is increased drainage or redness from any incision * A large amount of rectal bleeding greater than 2-3 tablespoons. (If you had a polyp/s removed or have hemorrhoids, a small amount of blood - from the rectum is to be expected.) * You have any unanswered questions or concerns. IN THE EVENT OF A SERIOUS EMERGENCY, GO TO THE NEAREST EMERGENCY ROOM Your discharge instructions were prepared by provider Andres Blake. Patient Instructions Signature Page Roberth Luther Patient (or Guardian) Signature/Date: I have read and understand the instructions given to me by my caregivers. Caregiver/RN/Doctor Signature/Date: The above-named patient and/or guardian has received patient instructions on this date. + Original Patient Signature Page (only) stays with chart. Please make copy for patient.
--- NOTE | 2016-11-18 15:01 | Anesthesiology Progress Note ---
Anesthesia Post Op Note Date & Time Nov 18, 2016 at 15:01 Vital Signs Pain Intensity: 0 Vital Signs Past 12 Hours Date Time Temp Pulse Resp B/P (MAP) Pulse Ox O2 Delivery O2 Flow Rate FiO2 11/18/16 14:53 87 16 118/59 (78) 98 Room Air 11/18/16 14:38 88 16 96/60 (72) 96 Room Air 11/18/16 13:58 36.6 87 20 120/66 (84) 94 Room Air Notes Mental Status: alert / awake / arousable, participated in evaluation Pt Amnestic to Procedure: Yes Nausea / Vomiting: adequately controlled Pain: adequately controlled Airway Patency, RR, SpO2: stable & adequate BP & HR: stable & adequate Hydration State: stable & adequate Anesthetic Complications: no major complications apparent
[2016-11-18 15:08] VITALS: BP 135/84; PULSE 87; O2SAT 100
== END | disposition home or self-care (01) ==
LOC: C.GI 13:33
PROVIDERS: ATTEND Internal Medicine
DX: R13.10 Dysphagia, unspecified (principal); K22.2 Esophageal obstruction; K44.9 Diaphragmatic hernia without obstruction or gangrene; K20.9 Esophagitis, unspecified; I10 Essential (primary) hypertension; F32.9 Major depressive disorder, single episode, unspecified; F03.90 Unspecified dementia, unspecified severity, without behavioral disturbance, psychotic disturbance, mood disturbance, and anxiety; Z98.52 Vasectomy status; Z68.27 Body mass index [BMI] 27.0-27.9, adult; Z79.82 Long term (current) use of aspirin; Z88.1 Allergy status to other antibiotic agents; F12.90 Cannabis use, unspecified, uncomplicated; Z87.891 Personal history of nicotine dependence; Z85.118 Personal history of other malignant neoplasm of bronchus and lung

== ENCOUNTER → 2016-12-15 | Outpatient (CLI) | payer OTHER ==
[~2016-12-15] MED LIST changes: -LIDOCAINE HCL 2% 2 ML VIAL (20MG/ML) ONE; +OPTIRAY 320 IV PRN; -PROPOFOL IV EMULSION 10 MG/ML 20 ML VIAL IV ONE
--- NOTE | 2016-12-15 18:47 | DIAGNOSTIC IMAGING REPORT ---
CT OF THE CHEST WITH IV CONTRAST CLINICAL HISTORY: Non-small cell lung cancer. COMPARISON STUDY: Chest CT July 16, 2016 and PET/CT August 16, 2016. TECHNIQUE: Following IV administration of 93 mL of [id number], helical axial images of the chest were obtained. Sagittal and coronal reconstructions were viewed as well as maximal intensity projections on an independent 3-D workstation CT DOSE: 799.58 mGycm FINDINGS: No enlarged axillary, mediastinal or hilar lymph nodes are present. The size the heart is normal. There is no pericardial effusion. There is extensive coronary artery calcification. There are trace bilateral pleural effusions. There is no pneumothorax. The previously described spiculated left upper lobe nodule is obscured by adjacent airspace opacity on this exam. This has likely decreased in size since PET/CT of August 16, 2016. This residual nodule measures approximately 2 x 1.1 cm and is difficult to evaluate given adjacent airspace opacity. It previously measured 2.2 x 1.6 cm. Overall, left paramediastinal airspace opacity has slightly improved since prior PET/CT of August 16, 2016. Extensive consolidation within the right upper and lower lobes has improved but there is moderate residual consolidation. There has been interval development of minimal groundglass opacities within the left lower lobe. No suspicious osseous lesions are present. The abdomen and pelvis will be reported separately. IMPRESSION: 1. Probable decrease in size of the left upper lobe lesion since PET/CT of August 16, 2016; however, this lesion is largely obscured by adjacent airspace opacity which likely reflect postradiation change. No CT evidence of progressive metastatic disease. 2. No thoracic lymphadenopathy. 3. Persistent, but improved, bilateral upper lobe and right lower lobe airspace opacity which favors postradiation change. 4. Trace bilateral pleural effusions. 5. No thoracic lymphadenopathy. Electronically signed by: Delio Head M.D. 12/15/2016 6:46 PM Dictated Date/Time: 12/15/2016 4:36 PM
--- NOTE | 2016-12-15 18:48 | DIAGNOSTIC IMAGING REPORT ---
CT OF THE ABDOMEN AND PELVIS WITH CONTRAST CLINICAL HISTORY: Non-small cell lung cancer. COMPARISON STUDY: PET/CT August 16, [address] of the abdomen and pelvis May 31, 2016 per TECHNIQUE: Following IV administration of 93 mL of Optiray-320, axial images of the abdomen and pelvis were obtained from the lung bases to the proximal femurs. Images were reviewed in the axial, sagittal, and coronal planes. IV contrast was administered without complication. Oral contrast was administered. CT DOSE: 125.16 mGycm FINDINGS: The chest will be reported separately. Trace bilateral pleural effusions are noted. The liver, spleen, adrenal glands and pancreas are unremarkable. There are a few subcentimeter renal lesions which are too small to characterize. There is no hydronephrosis. There is no evidence for a bowel obstruction. No lymphadenopathy is identified within the abdomen or the pelvis. There are no suspicious osseous lesions within the visualized skeletal structures. A femoral to femoral bypass graft is noted. The graft is patent. There is extensive atherosclerotic plaque of the abdominal aorta and major branch vessels. There may be a short segment dissection of the mid to distal abdominal aorta. These vessels are suboptimally assessed on this non-CTA exam. Patency of the bilateral common iliac arteries is difficult to assess for on this study. A fluid attenuation left groin abnormality measures 3.8 x 3.5 cm. This is slightly increased in size since PET/CT of August 16, 2016 when it measured 3.4 x 3.2 cm. This is immediately anterior to the left femoral vessels. IMPRESSION: 1. No evidence of metastatic disease within the abdomen or pelvis. 2. Slight increase in size of a hypodense left groin focus since PET/CT of August 16, 2016. This favors a seroma or lymphocele. A thrombosed pseudoaneurysm could appear similar although is considered less likely. 3. Patent femoral to femoral bypass. Possible short segment dissection of the distal abdominal aorta. Extensive atherosclerotic plaque of the aortoiliac system. Patency of the bilateral common iliac and external iliac arteries cannot be assessed on this non-CTA exam. However, the bypass graft is patent. Electronically signed by: Delio Head M.D. 12/15/2016 6:47 PM Dictated Date/Time: 12/15/2016 5:13 PM
== END | disposition home or self-care (01) ==
LOC: C.CTS 14:21
PROVIDERS: ATTEND Nurse Practitioner Family
DX: C34.11 Malignant neoplasm of upper lobe, right bronchus or lung (principal); R91.8 Other nonspecific abnormal finding of lung field

== ENCOUNTER 2017-02-14 11:57 | Emergency (ER) | payer OTHER ==
[~2017-02-14] VITALS: Ht 172.7 cm; Wt 80.0 kg
[~2017-02-14 11:57] MED LIST changes: -BUPR-83 PO; -CYAN10005 PO; -DIVA500T5 PO; -OPTIRAY 320 IV PRN; -QUET1TAB30 PO
[2017-02-14 11:58] VITALS: TEMP 36.8; Ht 172.7 cm; Wt 80.0 kg
[2017-02-14] MEDS ORDERED: DIVA500T5 PO (13:22)
[2017-02-14 13:35] LABS: BASO % 0.3 %; BASO ABS # 0.02 K/uL (0-0.2); COMPLETE YES; EOS % 3.2 %; HEMATOCRIT 35.8 % (42-52); IG% 0.2 %; LYMPH % 11.6 %; LYMPH ABS # 0.73 K/uL (1.2-3.4); MEAN CELL VOLUME 81.7 fL (80-100); MEAN CORPUSCULAR HEMOGLOBIN 27.9 pg (25-34); MEAN CORPUSCULAR HGB CONC 34.1 g/dl (32-36); MEAN PLATELET VOLUME 8.6 fL (7.4-10.4); MONO % 12.2 %; NEUT % 72.5 %; PLATELET COUNT 306 K/uL (130-400); RED BLOOD COUNT 4.38 M/uL (4.7-6.1); WHITE BLOOD COUNT 6.31 K/uL (4.8-10.8)
[2017-02-14 13:59] LABS: ALT/SGPT 19 U/L (12-78); AST/SGOT 20 U/L (15-37); BLOOD UREA NITROGEN 14 mg/dl (7-18); BUN/CREATININE RATIO 18.4 (10-20); CALCIUM 8.9 mg/dl (8.5-10.1); CARBON DIOXIDE 24 mmol/L (21-32); CHLORIDE 96 mmol/L (98-107); CREATININE 0.78 mg/dl (0.60-1.40); GLUCOSE 108 mg/dl (70-99); POTASSIUM 4.3 mmol/L (3.5-5.1); SODIUM 129 mmol/L (136-145)
[2017-02-14 14:08] LABS: ALKALINE PHOSPHATASE 78 U/L (45-117)
[2017-02-14 14:54] LABS: URINE APPEARANCE CLEAR (CLEAR); URINE BILIRUBIN NEG (NEG); URINE COLOR YELLOW; URINE EPITHELIAL CELL AUTO >30 /lpf (0-5); URINE NITRITE NEG (NEG); URINE SPECIFIC GRAVITY 1.025 (1.000-1.030); UROBILINOGEN NEG (NEG)
[2017-02-14 15:11] LABS: MANUAL MICROSCOPIC REQUIRED? NO; REVIEW REQ? YES
--- NOTE | 2017-02-14 18:07 | EMERGENCY ROOM VISIT NOTE ---
History Report prepared by Lauren: lBack Witt Under the Supervision of: Dr. Romulo Kruger D.O. First contact with patient: 12:36 Chief Complaint: MENTAL HEALTH EVALUATION Stated Complaint: MENTAL HEALTH History of Present Illness The patient is a 62 year old male who presents to the Emergency Room for a mental health evaluation. The patient's urtjsq-jv-fcp had a stroke in the recent past. He states that yesterday, his gcbmxr-gw-imw "put his brother in long-term." The patient has a homicidal ideation towards her and told multiple nurses that he has guns, ammo, and horse tranquilizer that he will use to "finish her off." He states that he has been having a hard time sleeping. He has gone three days without sleeping. He notes that he had left foot surgery that included removing decaying tissue from his left foot. He also wound care clinic for this. He does take oral antibiotics. He denies all other complaints. Pt denies headache, change in vision, fevers, chest pain, shortness of breath, nausea, vomiting, diarrhea, pain with urination, and melena. Source of History: patient Onset: yesterday Position: other (global) Symptom Intensity: severe Quality: other ([place]) Timing: constant Associated Symptoms: No fevers, No headache, No chest pain, No SOB, No nausea, No vomiting, No melena, No diarrhea, No urinary symptoms Note: He has not slept in 3 days. Denies any SI. Review of Systems See HPI for pertinent positives & negatives. A total of 10 systems reviewed and were otherwise negative. Past Medical & Surgical Medical Problems: (1) Bipolar disorder (2) Drug reaction (3) HYPOTENSION, LUNG CANCER,PAD,LEFT HEEL ULCER (4) ISCHEMIA L FOOT,PAD,LUNG CA (5) Ischemic rest pain of lower extremity (6) Lung mass Family History Diabetes mellitus FHx: gallbladder disease FHx: heart disease Social History Smoking Status: Current Every Day Smoker Alcohol Use: none Drug Use: none Marital Status: Housing Status: lives alone Occupation Status: retired Current/Historical Medications Scheduled Artificial Tears Oph Oint (Lacri-Lube Sop Oph Oint), 0.25-0.5 INCH OP TID Ascorbic Acid (Vitamin C), 500 MG PO BID Aspirin (Aspirin Ec), 81 MG PO QAM Bupropion HCl (Bupropion HCl Sr), 100 MG PO QAM Divalproex Sodium (Depakote Delay Rel), 500 MG PO BID Docusate Sodium (Docusate Sodium), 100 MG PO QAM Dutasteride (Avodart), 0.5 MG PO QAM Linezolid (Zyvox), 600 MG PO BID Lorazepam (Ativan), 0.5 MG PO BID Metoprolol Succinate (Toprol Xl), 25 MG PO QAM Multiple Vitamins W/ Minerals (Therems M), 1 TAB PO QAM Tamsulosin Hcl (Flomax), 0.4 MG PO QPM Tramadol (Ultram), 50 MG PO QPM Scheduled PRN Acetaminophen (Tylenol), 500 MG PO Q6H PRN for Pain or Fever Bisacodyl (Dulcolax), 1 SUPP [place] DAILY PRN for Constipation Magnesium Hydroxide (Milk of Magnesia), 30 ML PO DAILY PRN for Constipation Allergies Coded Allergies: Ciprofloxacin (Verified Allergy, Unknown, RASH, 11/18/16) Vancomycin (Verified Allergy, Unknown, RASH, 11/18/16) Physical Exam Vital Signs Date Time Temp Pulse Resp B/P (MAP) Pulse Ox O2 Delivery O2 Flow Rate FiO2 02/14/17 17:48 94 17 158/88 100 Room Air 02/14/17 15:37 93 20 118/65 98 Room Air 02/14/17 11:58 36.8 105 18 120/76 97 Room Air Physical Exam GENERAL: alert, sitting in a wheelchair, disheveled appearing, well nourished, no distress, non-toxic EYE EXAM: normal conjunctiva OROPHARYNX: no exudate, no erythema, lips, buccal mucosa, and tongue normal and mucous membranes are moist NECK: supple, no nuchal rigidity, no adenopathy, non-tender LUNGS: Clear to auscultation. Normal chest wall mechanics HEART: no murmurs, S1 normal and S2 normal ABDOMEN: abdomen soft, non-tender, normo-active bowel sounds, no masses, no rebound or guarding. BACK: Back is symmetrical on inspection and there is no deformity, no midline tenderness, no CVA tenderness. SKIN: no rashes and no bruising UPPER EXTREMITIES: upper extremities are grossly normal. LOWER EXTREMITIES: No pitting edema. Healing ulcer at the base of the left heel with surrounding erythema or drainage. NEURO EXAM: Awake, alert to person place and time. Normal sensorium, cranial nerves II-XII intact, normal speech, no weakness of arms, no weakness of legs. PSYCH: Admits HI, denies SI. Tangential speech. Patient with a rapid/pressured speech. Admits to not sleeping for three days. Medical Decision & Procedures Laboratory Results 02/14/17 13:08 Red Blood Count 4.38, Mean Corpuscular Volume 81.7, Mean Corpuscular Hemoglobin 27.9, Mean Corpuscular Hemoglobin Concent 34.1, Mean Platelet Volume 8.6, Neutrophils (%) (Auto) 72.5, Lymphocytes (%) (Auto) 11.6, Monocytes (%) (Auto) 12.2, Eosinophils (%) (Auto) 3.2, Basophils (%) (Auto) 0.3, Neutrophils # (Auto ) 4.58, Lymphocytes # (Auto) 0.73, Monocytes # (Auto) 0.77, Eosinophils # (Auto ) 0.20, Basophils # (Auto) 0.02 02/14/17 13:08 Test 02/14/17 13:08 02/14/17 13:38 02/14/17 14:09 02/14/17 18:15 White Blood Count 6.31 K/uL (4.8-10.8) Red Blood Count 4.38 M/uL (4.7-6.1) Hemoglobin 12.2 g/dL (14.0-18.0) Hematocrit 35.8 % (42-52) Mean Corpuscular Volume 81.7 fL (80-100) Mean Corpuscular Hemoglobin 27.9 pg (25-34) Mean Corpuscular Hemoglobin Concent 34.1 g/dl (32-36) Platelet Count 306 K/uL (130-400) Mean Platelet Volume 8.6 fL (7.4-10.4) Neutrophils (%) (Auto) 72.5 % Lymphocytes (%) (Auto) 11.6 % Monocytes (%) (Auto) 12.2 % Eosinophils (%) (Auto) 3.2 % Basophils (%) (Auto) 0.3 % Neutrophils # (Auto) 4.58 K/uL (1.4-6.5) Lymphocytes # (Auto) 0.73 K/uL (1.2-3.4) Monocytes # (Auto) 0.77 K/uL (0.11-0.59) Eosinophils # (Auto) 0.20 K/uL (0-0.5) Basophils # (Auto) 0.02 K/uL (0-0.2) RDW Standard Deviation 54.7 fL (36.4-46.3) RDW Coefficient of Variation 18.1 % (11.5-14.5) Immature Granulocyte % (Auto) 0.2 % Immature Granulocyte # (Auto) 0.01 K/uL (0.00-0.02) Anion Gap 9.0 mmol/L (3-11) Est Creatinine Clear Calc Drug Dose 93.8 ml/min Estimated GFR () 111.3 Estimated GFR (Non- 96.1 BUN/Creatinine Ratio 18.4 (10-20) Calcium Level 8.9 mg/dl (8.5-10.1) Total Bilirubin 0.4 mg/dl (0.2-1) Direct Bilirubin < 0.1 mg/dl (0-0.2) Aspartate Amino Transf (AST/SGOT) 20 U/L (15-37) Alanine Aminotransferase (ALT/SGPT) 19 U/L (12-78) Alkaline Phosphatase 78 U/L (45-117) Total Protein 8.5 gm/dl (6.4-8.2) Albumin 3.6 gm/dl (3.4-5.0) Thyroid Stimulating Hormone (TSH) 2.090 uIu/ml (0.300-4.500) Valproic Acid (Depakene) Level 73 mcg/ml (50-100) Ethyl Alcohol mg/dL < 3.0 mg/dl (0-3) Bedside Glucose 129 mg/dl (70-99) Urine Color YELLOW Urine Appearance CLEAR (CLEAR) Urine pH 6.0 (4.5-7.5) Urine Specific [place] 1.025 (1.000-1.030) Urine Protein TRACE (NEG) Urine Glucose (UA) NEG (NEG) Urine Ketones 1+ (NEG) Urine Occult Blood NEG (NEG) Urine Nitrite NEG (NEG) Urine Bilirubin NEG (NEG) Urine Urobilinogen NEG (NEG) Urine Leukocyte Esterase TRACE (NEG) Urine WBC (Auto) 1-5 /hpf (0-5) Urine RBC (Auto) 0-4 /hpf (0-4) Urine Hyaline Casts (Auto) 10-30 /lpf (0-5) Urine Epithelial Cells (Auto) >30 /lpf (0-5) Urine Bacteria (Auto) NEG (NEG) Urine Renal Epithelial Cells 5-10 /lpf (0-5) Urine Opiates Screen NEG (NEG) Urine Methadone, Qualitative NEG (NEG) Urine Barbiturates NEG (NEG) Urine Phencyclidine (PCP) Level NEG (NEG) Ur Amphetamine/Methamphetamine NEG (NEG) MDMA (Ecstasy) Screen POS (NEG) Urine Benzodiazepines Screen NEG (NEG) Urine Cocaine Metabolite NEG (NEG) Urine Marijuana (THC) POS (NEG) Laboratory results per my review. ED Course ED COURSE: Vital signs were reviewed and showed tachycardia. The patients medical record was reviewed The above diagnostic studies were performed and reviewed. ED treatments and interventions as stated above. 1236: The patient was evaluated in room A8. A complete history and physical examination was performed. 1415: I updated the patient at this time. He is going to give us a urine sample. 1701: I spoke with Dr. Villafana of the Wound Clinic at this time. They recommended a gauze rapping with Aquacel ointment on the ulcer. The patient should continue his antibiotics and follow up with him in the future. 2010: I spoke with Dr. Hunt of Psychiatry at this time. They state that they will not have a bed open in [place]. 2030: This patient was signed out to Dr. Aguilar at the change in shifts. Medical Decision Differential diagnosis: Etiologies such as mood disorder, infection, hypoglycemia, electrolyte abnormalities, cardiac sources, intracerebral event, toxicologic, neurologic, as well as others were entertained. Patient is a 62-year-old male with a history of bipolar disorder presents to ER referred in by the wound care clinic for homicidal ideations with a clear plan to kill his [id number]-bfw as she put his brother into long-term. There is a 302 petitioning statement the patient is willing to come in on a 201. On exam his ulcer is well-healed. There is no discharge. No surrounding erythema. No obvious signs of infection. He notes it is healing well. I discussed his ulcer with the wound care clinic and his attending there Dr. Villafana. Dr. Villafana notes that the dressing just needs to be changed preferably every day but could be every other day. The dressing consist of a 4 x 4 with antibiotic ointment and a wrap to secure the 4 x 4. CBC is unremarkable. Sodium is slightly low at 129 along with chloride at 96. Bilirubin total LFTs and TSH is unremarkable. Alcohol is negative. Urine had 30 epithelial cells which does suggest contaminated. He had no urinary symptoms. Valproic acid level was 73. Patient bed search ensued follows there for close to 8 hours. He was declined by the [facility] facility's due to the ulcer. Bed search will continue. Nighttime meds were given. Patient was signed out to Dr. Aguilar awaiting placement on a 201 with a 302 petitioned earlier by nursing staff at the wound care clinic and crisis. If patient continues to be declined he will likely need to be admitted here medically and evaluated by psychiatry. I did discuss the case with [facility] and they have no perceived openings tomorrow. I also discussed the case with the Aguilar personally and they declined him based on the ulcer. Medication Reconcilliation Current Medication List: was personally reviewed by me Blood Pressure Screening Patient's blood pressure: Normal blood pressure Blood pressure disposition: Did not require urgent referral Consults Time Called: 1658 Consulting Physician: Dr. Villafana - Wound Clinic Returned Call: [phone] We discussed the patient's ulcer. They recommended a gauze rapping with Aquacel ointment on the ulcer. The patient should continue his antibiotics and follow up with him in the future. Impression Primary Impression: Homicidal ideation Additional Impressions: Mood disorder Hyponatremia Scribe Attestation The scribe's documentation has been prepared under my direction and personally reviewed by me in its entirety. I confirm that the note above accurately reflects all work, treatment, procedures, and medical decision making performed by me. Departure Information Dispostion Still a Patient Referrals Kingston Flores M.D. (PCP) Patient Instructions My [facility] Problem Qualifiers
[2017-02-14 18:47] LABS: BENZODIAZEPINE, URINE NEG (NEG); COCAINE,URINE NEG (NEG); PHENCYCLIDINE, URINE NEG (NEG)
[2017-02-14] MEDS ORDERED: LINEZOLID 600 MG TAB PO STA (20:44)
[2017-02-14] MEDS ORDERED: LORAZEPAM 0.5 MG TAB PO PRN (20:45)
[2017-02-14] MEDS ORDERED: DIVALPROEX SODIUM 500 MG DELAY RELEASE TAB PO SCH (21:00)
--- NOTE | 2017-02-15 01:37 | EMERGENCY ROOM VISIT NOTE ---
ED Visit Note This patient signed out to me at change of shift. History and physical verified by me. Patient is awaiting bed search however the bed search may be suspended until the morning. Patient signed out to Dr. Edinson Bailey at change of shift. Problem List Medical Problems: (1) Bipolar disorder Status: Chronic (2) Lung mass Status: Chronic Current/Historical Medications Scheduled Artificial Tears Oph Oint (Lacri-Lube Sop Oph Oint), 0.25-0.5 INCH OP TID Ascorbic Acid (Vitamin C), 500 MG PO BID Aspirin (Aspirin Ec), 81 MG PO QAM Bupropion HCl (Bupropion HCl Sr), 100 MG PO QAM Divalproex Sodium (Depakote Delay Rel), 500 MG PO BID Docusate Sodium (Docusate Sodium), 100 MG PO QAM Dutasteride (Avodart), 0.5 MG PO QAM Linezolid (Zyvox), 600 MG PO BID Lorazepam (Ativan), 0.5 MG PO BID Metoprolol Succinate (Toprol Xl), 25 MG PO QAM Multiple Vitamins W/ Minerals (Therems M), 1 TAB PO QAM Tamsulosin Hcl (Flomax), 0.4 MG PO QPM Tramadol (Ultram), 50 MG PO QPM Scheduled PRN Acetaminophen (Tylenol), 500 MG PO Q6H PRN for Pain or Fever Bisacodyl (Dulcolax), [address] DAILY PRN for Constipation Magnesium Hydroxide (Milk of Magnesia), 30 ML PO DAILY PRN for Constipation Allergies Coded Allergies: Ciprofloxacin (Verified Allergy, Unknown, RASH, 11/18/16) Vancomycin (Verified Allergy, Unknown, RASH, 11/18/16) Vital Signs Date Time Temp Pulse Resp B/P (MAP) Pulse Ox O2 Delivery O2 Flow Rate FiO2 02/15/17 00:38 97 22 151/96 98 Room Air 02/14/17 21:14 86 20 136/84 96 Room Air 02/14/17 17:48 94 17 158/88 100 Room Air 02/14/17 15:37 93 20 118/65 98 Room Air 02/14/17 11:58 36.8 105 18 120/76 97 Room Air Laboratory Results 02/14/17 13:08 Red Blood Count 4.38, Mean Corpuscular Volume 81.7, Mean Corpuscular Hemoglobin 27.9, Mean Corpuscular Hemoglobin Concent 34.1, Mean Platelet Volume 8.6, Neutrophils (%) (Auto) 72.5, Lymphocytes (%) (Auto) 11.6, Monocytes (%) (Auto) 12.2, Eosinophils (%) (Auto) 3.2, Basophils (%) (Auto) 0.3, Neutrophils # (Auto ) 4.58, Lymphocytes # (Auto) 0.73, Monocytes # (Auto) 0.77, Eosinophils # (Auto ) 0.20, Basophils # (Auto) 0.02 02/14/17 13:08 Test 02/14/17 13:08 02/14/17 13:38 02/14/17 14:09 02/14/17 18:15 White Blood Count 6.31 K/uL (4.8-10.8) Red Blood Count 4.38 M/uL (4.7-6.1) Hemoglobin 12.2 g/dL (14.0-18.0) Hematocrit 35.8 % (42-52) Mean Corpuscular Volume 81.7 fL (80-100) Mean Corpuscular Hemoglobin 27.9 pg (25-34) Mean Corpuscular Hemoglobin Concent 34.1 g/dl (32-36) Platelet Count 306 K/uL (130-400) Mean Platelet Volume 8.6 fL (7.4-10.4) Neutrophils (%) (Auto) 72.5 % Lymphocytes (%) (Auto) 11.6 % Monocytes (%) (Auto) 12.2 % Eosinophils (%) (Auto) 3.2 % Basophils (%) (Auto) 0.3 % Neutrophils # (Auto) 4.58 K/uL (1.4-6.5) Lymphocytes # (Auto) 0.73 K/uL (1.2-3.4) Monocytes # (Auto) 0.77 K/uL (0.11-0.59) Eosinophils # (Auto) 0.20 K/uL (0-0.5) Basophils # (Auto) 0.02 K/uL (0-0.2) RDW Standard Deviation 54.7 fL (36.4-46.3) RDW Coefficient of Variation 18.1 % (11.5-14.5) Immature Granulocyte % (Auto) 0.2 % Immature Granulocyte # (Auto) 0.01 K/uL (0.00-0.02) Anion Gap 9.0 mmol/L (3-11) Est Creatinine Clear Calc Drug Dose 93.8 ml/min Estimated GFR () 111.3 Estimated GFR (Non- 96.1 BUN/Creatinine Ratio 18.4 (10-20) Calcium Level 8.9 mg/dl (8.5-10.1) Total Bilirubin 0.4 mg/dl (0.2-1) Direct Bilirubin < 0.1 mg/dl (0-0.2) Aspartate Amino Transf (AST/SGOT) 20 U/L (15-37) Alanine Aminotransferase (ALT/SGPT) 19 U/L (12-78) Alkaline Phosphatase 78 U/L (45-117) Total Protein 8.5 gm/dl (6.4-8.2) Albumin 3.6 gm/dl (3.4-5.0) Thyroid Stimulating Hormone (TSH) 2.090 uIu/ml (0.300-4.500) Valproic Acid (Depakene) Level 73 mcg/ml (50-100) Ethyl Alcohol mg/dL < 3.0 mg/dl (0-3) Bedside Glucose 129 mg/dl (70-99) Urine Color YELLOW Urine Appearance CLEAR (CLEAR) Urine pH 6.0 (4.5-7.5) Urine Specific [place] 1.025 (1.000-1.030) Urine Protein TRACE (NEG) Urine Glucose (UA) NEG (NEG) Urine Ketones 1+ (NEG) Urine Occult Blood NEG (NEG) Urine Nitrite NEG (NEG) Urine Bilirubin NEG (NEG) Urine Urobilinogen NEG (NEG) Urine Leukocyte Esterase TRACE (NEG) Urine WBC (Auto) 1-5 /hpf (0-5) Urine RBC (Auto) 0-4 /hpf (0-4) Urine Hyaline Casts (Auto) 10-30 /lpf (0-5) Urine Epithelial Cells (Auto) >30 /lpf (0-5) Urine Bacteria (Auto) NEG (NEG) Urine Renal Epithelial Cells 5-10 /lpf (0-5) Urine Opiates Screen NEG (NEG) Urine Methadone, Qualitative NEG (NEG) Urine Barbiturates NEG (NEG) Urine Phencyclidine (PCP) Level NEG (NEG) Ur Amphetamine/Methamphetamine NEG (NEG) MDMA (Ecstasy) Screen POS (NEG) Urine Benzodiazepines Screen NEG (NEG) Urine Cocaine Metabolite NEG (NEG) Urine Marijuana (THC) POS (NEG) Medications Administered Medications (Trade) Dose Ordered Sig/Rinku Route Start Time Stop Time Status Last Admin Dose Admin Linezolid (Zyvox Tab) 600 mg BID STAT PO 02/14/17 20:44 02/14/17 20:51 DC 02/14/17 21:12 600 MG Divalproex Sodium (Depakote Delay Rel Tab) 500 mg BID PO 02/14/17 21:00 03/16/17 20:59 02/14/17 21:11 500 MG Departure Information Impression Primary Impression: Homicidal ideation Additional Impressions: Mood disorder Hyponatremia Dispostion Still a Patient Referrals Kingston Flores M.D. Forms HOME CARE DOCUMENTATION FORM, IMPORTANT VISIT INFORMATION Patient Instructions [facility] Problem Qualifiers
[2017-02-15] MEDS ORDERED: NICOTINE 21 MG/24 HR TDSY TD ONE (02:00)
--- NOTE | 2017-02-15 06:29 | EMERGENCY ROOM VISIT NOTE ---
ED Visit Note First contact with patient: 01:57 62 yr old male arrived yesterday and initially evaluated by Dr Kruger secondary to staci with plan to murder sister in law. Patient signed 201 and wishing inpatient psychiatric treatment. Medically cleared by Dr Kruger and signed out to Dr Aguilar awaiting mental health placement. Signed out to me still awaiting placement. Given Nicotine patch. Stable throughout night without issues. Accepted to PPI in [place].
[2017-02-15 07:45] VITALS: PULSE 87; O2SAT 100
[2017-02-15] MEDS ORDERED: ARTIFICIAL TEARS OP SOLN OP STA ×2 (07:45)
[2017-02-15] MEDS ORDERED: ASPIRIN 81 MG ECTAB PO STA (07:45)
[2017-02-15] MEDS ORDERED: DIVALPROEX SODIUM 500 MG DELAY RELEASE TAB PO STA (07:45)
[2017-02-15] MEDS ORDERED: LINEZOLID 600 MG TAB PO STA (07:45)
[2017-02-15] MEDS ORDERED: ACETAMINOPHEN 325 MG TAB PO STA (07:55)
[2017-02-15] MEDS ORDERED: ARTIFICIAL TEARS OP OINT 3.5 GM TUBE ONE (08:00)
[2017-02-15 08:20] VITALS: BP 104/68
[2017-02-15] MEDS ORDERED: METOPROLOL SUCC 25MG EXT REL TAB PO SCH (09:00)
[2017-02-15] MEDS ORDERED: BuPROPion SR 100 MG TABCR PO SCH (09:00)
[2017-02-23] MEDS ORDERED: BUPR-83 PO (08:26)
[2017-02-23] MEDS ORDERED: QUET1TAB30 PO (08:26)
[2017-02-23] MEDS ORDERED: DIVA500T59 PO (08:26)
[2017-02-23] MEDS ORDERED: CYAN10005 PO (08:27)
== END 2017-02-15 08:40 ==
LOC: EDBD 11:57 → C.EDA 11:58
DX: R45.850 Homicidal ideations (principal); F31.9 Bipolar disorder, unspecified; C34.90 Malignant neoplasm of unspecified part of unspecified bronchus or lung; I95.9 Hypotension, unspecified; L97.429 Non-pressure chronic ulcer of left heel and midfoot with unspecified severity; R00.0 Tachycardia, unspecified; F17.200 Nicotine dependence, unspecified, uncomplicated; Z79.82 Long term (current) use of aspirin; Z83.3 Family history of diabetes mellitus; E87.1 Hypo-osmolality and hyponatremia; M86.672 Other chronic osteomyelitis, left ankle and foot

== ENCOUNTER → 2017-03-11 | Outpatient (CLI) | payer OTHER ==
[~2017-03-11] MED LIST changes: +CYAN10005 PO; +DIVA500T5 PO; -DOCU100C31 PO; -FOLI1TAB7 PO; -HYDR-3126 PO; -LORA-741 PO; -MELA1TAB54 PO; -MOMLX PO; -NMN5 PO; +OPTIRAY 320 IV PRN; -PRLSR20 PO; +QUET1TAB30 PO; -TEMA15CA4 PO
--- NOTE | 2017-03-11 14:04 | DIAGNOSTIC IMAGING REPORT ---
CHEST CT WITH CONTRAST CT DOSE: 554.87 mGy.cm HISTORY: Lung cancer. TECHNIQUE: Multiaxial CT images of the chest were performed following the intravenous administration of contrast. A dose lowering technique was utilized adhering to the principles of ALARA. COMPARISON: Chest CT 12/15/2016. FINDINGS: The central airways are maintained. No pleural effusions. No pneumothorax. There is a 1.7 x 1.3 cm spiculated lesion within the left upper lobe on image 16. This is partially obscured by the surrounding opacification/fibrotic change which results in difficult evaluation of this lesion. However, this appears be similar in size. The left upper lobe and right lower lobe consolidation persists. This demonstrates volume loss and traction bronchiectasis likely representing post radiation fibrotic change. This is overall similar to the prior study. No additional pulmonary nodules identified. No suspicious lytic or blastic osseous lesions. Normal caliber thoracic aorta with mild calcified plaque. The heart is normal in size. Hepatic steatosis. Normal adrenal glands and spleen. No mediastinal or hilar lymphadenopathy. Mild subcutaneous edema within the left anterior chest wall which may related to post radiation change. This is unchanged. IMPRESSION: 1. Overall, no significant change compared to the prior study. 2. The left upper lobe spiculated lesion appears to be similar in size. Of note, this lesion is partially obscured by the adjacent airspace opacity which likely represents post radiation change. 3. Similar consolidation within the right lower lobe which also likely represents post radiation change. Electronically signed by: Patricio Burger M.D. 03/11/2017 2:03 PM Dictated Date/Time: 03/11/2017 1:56 PM
--- NOTE | 2017-03-11 14:07 | DIAGNOSTIC IMAGING REPORT ---
CT SCAN OF THE ABDOMEN AND PELVIS WITH IV CONTRAST CLINICAL HISTORY: Lung cancer. COMPARISON STUDY: Abdominal CT dated 12/15/2016. TECHNIQUE: Following the IV administration of 92 cc of Optiray 320, CT scan of the abdomen and pelvis is performed from the lung bases to the proximal femora. Images are reviewed in the axial, sagittal, and coronal planes. IV contrast was administered without complication. A dose lowering technique was utilized adhering to the principles of ALARA. The examination is degraded by motion artifact. FINDINGS: Lung bases: The heart is normal in size and without pericardial effusion. The coronary arteries are densely calcified. Evaluation of the lung bases is degraded by motion artifact. No airspace consolidation or pleural effusion is seen. Liver: The contrast-enhanced liver is normal in size, contour, and attenuation. Fatty infiltration is noted adjacent to falciform ligament. There is no intrahepatic biliary ductal dilatation. The hepatic veins and portal veins are patent. Gallbladder: Unremarkable. Spleen: Normal in size and attenuation. Pancreas: Unremarkable. Adrenal glands: Unremarkable. Kidneys: The contrast enhanced kidneys demonstrate mild cortical atrophy and are without hydronephrosis. Renovascular calcifications are identified. The kidneys enhance symmetrically. Abdominal vasculature: The abdominal aorta is normal in course and caliber noting advanced atherosclerotic calcification. Moderate stenosis is suggested the origin of the superior mesenteric artery. A focal dissection previously questioned in the distal abdominal aorta is not visualized on today's examination. There is occlusion of the left common iliac artery. A femorofemoral bypass graft is in place. Bowel: The small bowel and colon are normal in course and caliber. There is moderate to severe constipation. The appendix is normal as visualized. Peritoneum: There is no intraperitoneal free air or abdominal ascites. Lymphadenopathy: There are shotty subcentimeter retroperitoneal lymph nodes. Pelvic viscera: The bladder is distended and grossly unremarkable. The prostate gland is normal as visualized. Postoperative change is seen in the groin bilaterally. A 4.0 cm cystic structure in the left upper thigh is unchanged from previous and may be on a postoperative basis. Skeletal structures: The skeletal structures are osteopenic. Mild to moderate lumbosacral spondylosis is observed. No lytic or blastic lesions are seen. IMPRESSION: 1. There is no evidence of metastatic disease in the abdomen or pelvis. 2. Moderate to severe constipation. 3. There is occlusion of the left common iliac artery with a patent femorofemoral bypass. 4. There is a ovoid 4 cm water attenuation structure partially visualized in the ventral left upper thigh. This is likely on a postoperative basis and could represent a seroma or lymphocele. As noted previously, a thrombosed pseudoaneurysm could have a similar appearance but is considered less likely. Clinical correlation will be required. 5. Additional findings as above. Electronically signed by: Tomy Thompson M.D. 03/11/2017 2:05 PM Dictated Date/Time: 03/11/2017 1:55 PM
== END | disposition home or self-care (01) ==
LOC: C.CTS 13:09
PROVIDERS: ATTEND Internal Medicine Hematology & Oncology
DX: C34.11 Malignant neoplasm of upper lobe, right bronchus or lung (principal); K59.00 Constipation, unspecified; I74.5 Embolism and thrombosis of iliac artery

== ENCOUNTER → 2017-03-15 | Outpatient (CLI) | payer OTHER ==
[~2017-03-15] MED LIST changes: -OPTIRAY 320 IV PRN
--- NOTE | 2017-03-15 13:20 | DIAGNOSTIC IMAGING REPORT ---
MRI OF THE BRAIN COMBO CLINICAL HISTORY: Lung cancer. COMPARISON STUDY: MRI of the brain dated 02/23/2016. CT the brain dated 08/02/2016. TECHNIQUE: MRI of the brain was performed utilizing various T1 and T2-weighted sequences in the axial, sagittal, and coronal planes. Contrast-enhanced sequences were acquired following the administration of 7.5 cc of Gadavist. The examination is modestly degraded by motion artifact. FINDINGS: Brain parenchyma: There are age-related involutional changes noting mild subcortical and periventricular microangiopathic disease. There is no hemorrhage or mass effect. There is no restricted diffusion to suggest acute ischemia. No enhancing mass lesion is identified on the postcontrast images. Irene-white matter differentiation is preserved. No extra-axial fluid collection is seen. The cerebellar tonsils are normal in configuration. Ventricles, sulci, and cisterns: Prominent secondary to involutional change. Pituitary and sella: Unremarkable. Intracranial vasculature: There is chronic loss of the right internal carotid artery flow void similar to previous. The remaining flow voids at the skull base are maintained. Orbits: The bony orbits are grossly intact. Orbital contents are normal in appearance. Sinuses and mastoids: Clear. Calvarium: Unremarkable. Cervical cord: Partially visualized cervical spinal cord is normal in morphology and signal intensity. IMPRESSION: 1. There is no evidence of intracranial metastatic disease. There is been no significant change from 02/23/2016. 2. 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 Electronically signed by: Tomy Thompson M.D. 03/15/2017 1:18 PM Dictated Date/Time: 03/15/2017 1:13 PM
== END | disposition home or self-care (01) ==
LOC: C.MRI 09:49
PROVIDERS: ATTEND Nurse Practitioner Family
DX: C34.11 Malignant neoplasm of upper lobe, right bronchus or lung (principal)

== ENCOUNTER → 2017-06-17 | Outpatient (CLI) | payer OTHER ==
[~2017-06-17] MED LIST changes: +OPTIRAY 320 IV PRN
--- NOTE | 2017-06-17 13:21 | DIAGNOSTIC IMAGING REPORT ---
CT SCAN OF THE CHEST WITH IV CONTRAST CLINICAL HISTORY: Follow-up lung cancer. COMPARISON STUDY: Chest CT scans dated 03/11/2017 and 01/18/2016. TECHNIQUE: Following the IV administration of 92 cc of Optiray 320, CT scan of the thorax was performed from the thoracic inlet to the upper abdomen. Images are reviewed in the axial, sagittal, and coronal planes. IV contrast was administered without complication. A dose lowering technique was utilized adhering to the principles of ALARA. CT DOSE: 781.02 mGy.cm FINDINGS: Thyroid: Imaged portions of the thyroid gland are normal in size and attenuation. Thoracic aorta: There is advanced atherosclerotic calcification of the thoracic aorta, which is normal in caliber and demonstrates standard 3-vessel arch anatomy. No dissection is seen. Pulmonary vasculature: The pulmonary trunk is normal in caliber. There are no filling defects identified in the central pulmonary vessels to indicate pulmonary embolus. Note that this examination was not protocoled for evaluation of the pulmonary arteries. Heart: The heart is mildly enlarged and without pericardial effusion. The coronary arteries are densely calcified. Lungs and pleural spaces: Emphysematous change is observed. There is a trace left pleural effusion. The trachea and central airways are clear. Fibrotic change in the anterior left upper lobe and the paramediastinal right lung is similar in appearance to prior studies and likely represents post radiation change. The 1.4 cm left upper lobe nodule is seen within this region of fibrosis image #82 and measures up to 1.4 cm. No airspace consolidation is seen typical for pneumonia. No new pulmonary lesion is identified. Mediastinum: There is no mediastinal lymphadenopathy. Yaa: Clear. Axillae: There is no axillary lymphadenopathy. Upper abdomen: There is evidence of hepatic steatosis. No adrenal lesion is seen. A tiny hiatal hernia is identified. Skeletal structures: The skeletal structures are osteopenic. No lytic or blastic bony lesions are seen. IMPRESSION: 1. There has been no significant change from 03/11/2017. There is no evidence of progression of disease in the thorax. 2. Fibrotic change in the left upper lobe and the paramediastinal right lung is similar to previous and likely related to post radiation change. 3. The left upper lung spiculated nodule is located within the left upper lobe fibrosis and measures approximately 1.4 cm. This is not well assessed on today's examination. 4. A trace left pleural effusion is new from previous. 5. No airspace consolidation is seen typical for pneumonia. 6. Cardiac megaly and emphysema. 7. Additional findings as above. Electronically signed by: Tomy Thompson M.D. 06/17/2017 1:20 PM Dictated Date/Time: 06/17/2017 1:13 PM
--- NOTE | 2017-06-17 13:26 | DIAGNOSTIC IMAGING REPORT ---
CT ABD/PELVIS IV AND ORAL CONT CLINICAL HISTORY: NON-SMALL CELL LUNG CANCER C34.11 COMPARISON STUDY: 03/11/2017 TECHNIQUE: Following the IV administration of 92 mL of Optiray-320, CT scan of the abdomen and pelvis was performed from the lung bases to the proximal femurs. Images are reviewed in the axial, sagittal, and coronal planes. IV contrast was administered without complication. A dose lowering technique was utilized adhering to the principles of ALARA. CT DOSE: FINDINGS: Lower chest: There is a tiny left pleural effusion. Liver: The contrast-enhanced liver is normal in size, contour, and attenuation. There is no intrahepatic biliary ductal dilatation. The hepatic veins and portal veins are patent. Gallbladder: Unremarkable. Spleen: Normal in size and attenuation. Pancreas: Unremarkable. Adrenal glands: Unremarkable. Kidneys: There are renal vascular calcifications present. Bowel: There are no transition zones indicate bowel obstruction. The appendix appears normal. There is no acute diverticulitis. Peritoneum: There is no intraperitoneal free air or abdominal ascites. Vasculature: There are advanced atheromatous changes present. There is a femorofemoral bypass graft. There is a 34 mm fluid collection within the left inguinal region. This appears smaller than on the prior study and likely represents a postsurgical seroma/lymphocele. Adenopathy: None. Pelvic viscera: The bladder, and pelvic viscera are unremarkable. Skeletal structures: No destructive osseous lesions are seen. IMPRESSION: No evidence of intra-abdominal or pelvic metastatic disease. Electronically signed by: Rhys Dove M.D. 06/17/2017 1:25 PM Dictated Date/Time: 06/17/2017 1:21 PM
== END | disposition home or self-care (01) ==
LOC: C.CTS 11:09
PROVIDERS: ATTEND Nurse Practitioner Family
DX: C34.11 Malignant neoplasm of upper lobe, right bronchus or lung (principal); J90 Pleural effusion, not elsewhere classified; I51.7 Cardiomegaly; J43.9 Emphysema, unspecified

== ENCOUNTER 2017-07-09 12:16 | Inpatient (IN) | payer OTHER ==
[~2017-07-09] VITALS: Ht 172.7 cm; Wt 84.0 kg
[~2017-07-09 12:16] MED LIST changes: -OPTIRAY 320 IV PRN
[2017-07-09] MEDS ORDERED: MELATAB2 PO (12:47)
--- NOTE | 2017-07-09 13:02 | EMERGENCY ROOM VISIT NOTE ---
History Report prepared by Lauren: Celestine Hartley Under the Supervision of: Dr. Alcides Kelley M.D. First contact with patient: 12:50 Chief Complaint: SWELLING TO EXTREMITY Stated Complaint: FEET/LEGS SWOLLEN Nursing Triage Summary: pt presents with bilateral lower leg swelling, left greater than right he recently had left heel surgery with daily zivox per patient the left leg has progressively been swelling and increasing in swelling, he states concern because the right leg is now begining to swell He has been told in the past that he might potentially loose his legs the skin of his left foot is tight, moreso than the right he has an obvious pressure ulcer area to the left foot that is draining yellow drainage, it came with dressing on, this nurse removed dressing pt reports no history of diabetes History of Present Illness The patient is a 62 year old male who presents to the Emergency Room with complaints of worsening swelling to his legs bilaterally beginning 3-4 weeks ago. The patient states he developed swelling and redness in his legs 3-4 weeks ago, and it has worsened over the past week. He reports he has not walked in over a year because of heel surgery. The patient notes he is currently trying to rebuild his leg muscles. He states he has poor circulation in his feet, and they are intermittently numb. The patient reports he is evaluated by wound clinic and has his next appointment in a week. He notes he has been on Zyvox for the past 6 months. The patient denies missing his medication, fevers, chest pain, and shortness of breath. He states he is currently being treated for lung cancer and denies any cardiac history. Source of History: patient Onset: 3-4 weeks ago Position: leg (bilateral) Quality: other (swelling) Timing: worsening Associated Symptoms: + numbness, No fevers, No chest pain, No SOB Review of Systems See HPI for pertinent positives & negatives. A total of 10 systems reviewed and were otherwise negative. Past Medical & Surgical Medical Problems: (1) Bipolar disorder (2) Drug reaction (3) HYPOTENSION, LUNG CANCER,PAD,LEFT HEEL ULCER (4) ISCHEMIA L FOOT,PAD,LUNG CA (5) Ischemic rest pain of lower extremity (6) Lower extremity cellulitis (7) Lung mass Old medical records were reviewed. Nurse's notes were reviewed and I agree with. Family History Diabetes mellitus FHx: gallbladder disease FHx: heart disease Social History Smoking Status: Current Every Day Smoker Alcohol Use: none Drug Use: none Marital Status: Housing Status: lives alone Occupation Status: retired Current/Historical Medications Scheduled Artificial Tears Oph Oint (Lacri-Lube Sop Oph Oint), 0.25-0.5 INCH OP TID Ascorbic Acid (Vitamin C), 500 MG PO BID Aspirin (Aspirin Ec), 81 MG PO QAM Bupropion HCl (Bupropion HCl Sr), 100 MG PO QAM Divalproex Sodium (Depakote Delay Rel), 500 MG PO QAM Divalproex Sodium (Depakote), 750 MG PO HS Dutasteride (Avodart), 0.5 MG PO QAM Linezolid (Zyvox), 600 MG PO BID Melatonin (Melatonin Maximum Strengt), 1 TAB PO HS Metoprolol Succinate (Toprol Xl), 25 MG PO QAM Quetiapine Fumarate (Seroquel), 100 MG PO HS Tamsulosin Hcl (Flomax), 0.4 MG PO QPM Tramadol (Ultram), 50 MG PO QPM Scheduled PRN Acetaminophen (Tylenol), 500 MG PO Q6H PRN for Pain or Fever Allergies Coded Allergies: Ciprofloxacin (Verified Allergy, Intermediate, RASH, 07/09/17) Vancomycin (Verified Allergy, Intermediate, RASH, 07/09/17) Physical Exam Vital Signs Date Time Temp Pulse Resp B/P (MAP) Pulse Ox O2 Delivery O2 Flow Rate FiO2 07/09/17 17:05 93 16 143/85 100 Room Air 07/09/17 15:07 99 16 117/88 100 Room Air 07/09/17 12:25 36.3 102 20 98 Room Air Physical Exam General: Non-ill appearing older male in no acute distress. HEENT: Normal cephalic atraumatic. Pupils are equal round and reactive to light. Extraocular movements are intact. Oropharynx is pink with moist mucous membranes. No swelling of the mouth lips or tongue. Neck: Supple with a midline trachea. No meningeal signs or stiffness, no JVD or bruits. No Stridor. Chest: Clear to auscultation bilaterally. No wheezes or rhonchi. No increased work of breathing. Heart: regular rate and rhythm. Abdomen: Soft nontender, nondistended without rebound guarding or rigidity. Extremities: No cyanosis clubbing or edema. No calf tenderness or assymetry. Left lower extremity edema with mild, diffuse, pinkish discoloration. Not significantly warm. Healed ulcer on the left heel - no drainage, capillary refill intact. Spine/Back. Non tender to palpation. No CVA tenderness Skin: Good turgor without rashes. Neurologic exam: Cranial nerves two through 12 are intact. Motor and sensation are intact and symmetrical throughout. Medical Decision & Procedures ER Provider Diagnostic Interpretation: Radiology results as stated below per my review and radiologist interpretation: LEFT LOWER EXTREMITY ARTERIAL DOPPLER ULTRASOUND CLINICAL HISTORY: Left leg swelling. COMPARISON STUDY: Bilateral lower extremity arterial Doppler ultrasound October 22, 2014. FINDINGS: The right ankle to brachial index measured 1.02 when using posterior tibial artery and 0.71 when using the dorsalis pedis. The left ankle to brachial index measured 0.64 when using posterior tibial artery and 0.56 when using the dorsalis pedis. The femoral to femoral bypass graft is patent. There is extensive plaque within the left lower extremity. There is an elevated peak systolic velocity of 211 cm/s within the proximal left superficial femoral artery which suggests a hemodynamically significant stenosis. There is monophasic flow within the superficial femoral artery. The distal left superficial femoral artery and popliteal artery are occluded. There is distal reconstitution with monophasic flow within the left anterior tibial, posterior tibial, peroneal and dorsalis pedis vessels however this flow is dampened with monophasic waveform. IMPRESSION: 1. Significantly diminished left ankle to brachial index of 0.64. 2. Extensive atherosclerotic plaque within the left lower extremity with findings suggestive of a hemodynamically significant stenosis within the proximal left superficial femoral artery. 3. Patent femoral to femoral bypass. 4. Occlusion of the distal left superficial femoral artery and left popliteal artery with distal reconstitution. However, more distal flow is markedly dampened with monophasic waveform. Electronically signed by: Delio Head M.D. 07/09/2017 3:45 PM Dictated Date/Time: 07/09/2017 3:42 PM LEFT LOWER EXTREMITY VENOUS DOPPLER CLINICAL HISTORY: Left leg swelling. COMPARISON STUDY: Left lower extremity venous Doppler July 15, 2016. TECHNIQUE: Sonography of the deep venous system of the left lower extremity was performed. Compression and augmentation were evaluated. FINDINGS: The left common femoral, superficial femoral and popliteal veins were compressible. Augmentation was normal. Flow was shown within the deep calf vessels. Note was made of a 6.3 x 3.1 x 1.9 cm cystic abnormality within the medial left thigh. This is similar to CT of June 17, 2017 as well as ultrasound of July 15, 2016. The wall is slightly thickened. This contains no color flow. IMPRESSION: 1. No evidence of deep venous thrombus within the left lower extremity. 2. No significant change in the mildly complex left groin fluid collection which is nonspecific but likely reflects a seroma or lymphocele. Electronically signed by: Delio Head M.D. 07/09/2017 3:41 PM Dictated Date/Time: 07/09/2017 3:28 PM L FOOT MIN 3 VIEWS ROUTINE CLINICAL HISTORY: Left foot pain. Evaluate for osteomyelitis. COMPARISON: Left foot radiographs July 15, 2016 and MRI of the left foot August 16, 2016. FINDINGS: Tarsometatarsal joints are intact. Osteopenia is noted. There is moderate posterior and minimal plantar calcaneal spurring. There is no radiographic evidence of osteomyelitis within the left foot. 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 There is no acute fracture. IMPRESSION: 1. No acute fracture or evidence of osteomyelitis within the left foot by radiography. 2. Dorsal left foot soft tissue swelling. Electronically signed by: Delio Head M.D. 07/09/2017 1:46 PM Dictated Date/Time: 07/09/2017 1:43 PM CHEST ONE VIEW PORTABLE CLINICAL HISTORY: Chest pain. History of lung cancer. COMPARISON STUDY: Chest CT June 17, 2017. FINDINGS: No pneumothorax or pleural effusion is noted. There is no consolidation to suggest pneumonia and there is no evidence for pulmonary edema. Bilateral paramediastinal opacity is unchanged since CT of June 17, 2017. Cardiomediastinal silhouette is stable. Appearance of the chest is unchanged. IMPRESSION: No acute cardiopulmonary findings. No change in appearance the chest with paramediastinal opacity suggestive of postradiation change. Electronically signed by: Delio Head M.D. 07/09/2017 1:43 PM Dictated Date/Time: 07/09/2017 1:41 PM Laboratory Results 07/09/17 13:22 Red Blood Count 3.99, Mean Corpuscular Volume 92.0, Mean Corpuscular Hemoglobin 31.8, Mean Corpuscular Hemoglobin Concent 34.6, Mean Platelet Volume 8.8, Neutrophils (%) (Auto) 70.9, Lymphocytes (%) (Auto) 13.3, Monocytes (%) (Auto) 12.3, Eosinophils (%) (Auto) 3.1, Basophils (%) (Auto) 0.2, Neutrophils # (Auto ) 5.78, Lymphocytes # (Auto) 1.08, Monocytes # (Auto) 1.00, Eosinophils # (Auto ) 0.25, Basophils # (Auto) 0.02 07/09/17 13:22 Test 07/09/17 13:22 07/09/17 13:31 07/09/17 13:32 White Blood Count 8.15 K/uL (4.8-10.8) Red Blood Count 3.99 M/uL (4.7-6.1) Hemoglobin 12.7 g/dL (14.0-18.0) Hematocrit 36.7 % (42-52) Mean Corpuscular Volume 92.0 fL (80-100) Mean Corpuscular Hemoglobin 31.8 pg (25-34) Mean Corpuscular Hemoglobin Concent 34.6 g/dl (32-36) Platelet Count 292 K/uL (130-400) Mean Platelet Volume 8.8 fL (7.4-10.4) Neutrophils (%) (Auto) 70.9 % Lymphocytes (%) (Auto) 13.3 % Monocytes (%) (Auto) 12.3 % Eosinophils (%) (Auto) 3.1 % Basophils (%) (Auto) 0.2 % Neutrophils # (Auto) 5.78 K/uL (1.4-6.5) Lymphocytes # (Auto) 1.08 K/uL (1.2-3.4) Monocytes # (Auto) 1.00 K/uL (0.11-0.59) Eosinophils # (Auto) 0.25 K/uL (0-0.5) Basophils # (Auto) 0.02 K/uL (0-0.2) RDW Standard Deviation 55.6 fL (36.4-46.3) RDW Coefficient of Variation 16.5 % (11.5-14.5) Immature Granulocyte % (Auto) 0.2 % Immature Granulocyte # (Auto) 0.02 K/uL (0.00-0.02) D-Dimer 2080 ug/L FEU (0-500) Anion Gap 6.0 mmol/L (3-11) Est Creatinine Clear Calc Drug Dose 87.7 ml/min Estimated GFR () 103.6 Estimated GFR (Non- 89.4 BUN/Creatinine Ratio 13.8 (10-20) Calcium Level 9.5 mg/dl (8.5-10.1) Total Bilirubin 0.2 mg/dl (0.2-1) Direct Bilirubin 0.1 mg/dl (0-0.2) Aspartate Amino Transf (AST/SGOT) 28 U/L (15-37) Alanine Aminotransferase (ALT/SGPT) 27 U/L (12-78) Alkaline Phosphatase 95 U/L (45-117) Total Protein 9.2 gm/dl (6.4-8.2) Albumin 3.7 gm/dl (3.4-5.0) Lipase 216 U/L (73-393) Bedside Troponin I < 0.030 ng/ml (0-0.045) Bedside Lactic Acid Venous 1.76 mmol/L (0.90-1.70) Laboratory studies as stated above per my review. ECG Indication: other (swelling of the lower extremities) Rate (beats per minute): 97 Rhythm: normal sinus Findings: no acute ischemic change, no ectopy Comparison ECG Date: 09/28/16 Change: no significant change Change: Patient's electrocardiogram was interpreted by me. ED Course 1251: Past medical records reviewed. The patient was evaluated in room C07, and a complete history and physical examination were performed. 1417: I attempted to reevaluate the patient, but he was at ultrasound. 1452: Upon reevaluation, the patient is resting comfortably and just returned from his ultrasound. 1554: I discussed the results and treatment plan with the patient. he verbalized agreement of the treatment plan. The patient will be evaluated for further management. 1605: I discussed the patient's case with Dr. Pelayo, [facility]. He will evaluate the patient for further management and care. Medical Decision Differentials include, but are not limited to; DVT, cellulitis, arterial insufficiency, CHF, electrolyte or metabolic abnormality. This patient comes in as described above. He was placed in room C7. He has had some swelling and his left leg he has had chronic problems with this usually has a bandage on it. It's effusively pain but not warm. The ulcer appears healed for the most part without any drainage or open skin. He does have good capillary refill. He has normal he has no evidence suggest compartment syndrome. There is no crepitus or significant tenderness. IV access established. EKG, chest x-ray, and multiple blood testing was obtained. His lactic acid is not significant elevated and he has no elevation of white count. Blood cultures were obtained. X-rays do not show any acute bony abnormality seen. His ultrasound showed no evidence of DVT. His have significant arteriovascular disease to the left leg. I'm concerned that he is on oral Linazolid and now has a red leg. It is possible that he has a cellulitis and he does have significant vascular compromise chronically to this leg. I do not suspect acute arterial compromise. I did consult Dr. Pelayo to see the patient in the emergency department for likely admission/observation and antibiotics. Medication Reconcilliation Current Medication List: was personally reviewed by me Blood Pressure Screening Patient's blood pressure: Normal blood pressure Blood pressure disposition: Did not require urgent referral Consults Time Called: 1559 Consulting Physician: Dr. Pelayo, [facility]ist Returned Call: 1605 I discussed the patient's case with Dr. Pelayo, [facility]ist. He will evaluate the patient for further management and care. Impression Primary Impression: Cellulitis of leg, left Additional Impressions: Leg edema, left Arterial insufficiency of lower extremity Scribe Attestation The scribe's documentation has been prepared under my direction and personally reviewed by me in its entirety. I confirm that the note above accurately reflects all work, treatment, procedures, and medical decision making performed by me. Departure Information Dispostion Being Evaluated By Hospitalist Referrals Benja López M.D. (PCP) Patient Instructions My [facility] Problem Qualifiers
--- NOTE | 2017-07-09 13:44 | DIAGNOSTIC IMAGING REPORT ---
CHEST ONE VIEW PORTABLE CLINICAL HISTORY: Chest pain. History of lung cancer. COMPARISON STUDY: Chest CT June 17, 2017. FINDINGS: No pneumothorax or pleural effusion is noted. There is no consolidation to suggest pneumonia and there is no evidence for pulmonary edema. Bilateral paramediastinal opacity is unchanged since CT of June 17, 2017. Cardiomediastinal silhouette is stable. Appearance of the chest is unchanged. IMPRESSION: No acute cardiopulmonary findings. No change in appearance the chest with paramediastinal opacity suggestive of postradiation change. Electronically signed by: Delio Head M.D. 07/09/2017 1:43 PM Dictated Date/Time: 07/09/2017 1:41 PM
[2017-07-09 13:47] LABS: BASO % 0.2 %; BASO ABS # 0.02 K/uL (0-0.2); EOS % 3.1 %; EOS ABS # 0.25 K/uL (0-0.5); HEMATOCRIT 36.7 % (42-52); HEMOGLOBIN 12.7 g/dL (14.0-18.0); IG# 0.02 K/uL (0.00-0.02); LYMPH % 13.3 %; LYMPH ABS # 1.08 K/uL (1.2-3.4); MEAN CORPUSCULAR HEMOGLOBIN 31.8 pg (25-34); MEAN CORPUSCULAR HGB CONC 34.6 g/dl (32-36); MEAN PLATELET VOLUME 8.8 fL (7.4-10.4); MONO % 12.3 %; NEUT % 70.9 %; NEUT ABS # 5.78 K/uL (1.4-6.5); PLATELET COUNT 292 K/uL (130-400); RED CELL DISTRIBUTION WIDTH CV 16.5 % (11.5-14.5); RED CELL DISTRIBUTION WIDTH SD 55.6 fL (36.4-46.3); WHITE BLOOD COUNT 8.15 K/uL (4.8-10.8)
--- NOTE | 2017-07-09 13:47 | DIAGNOSTIC IMAGING REPORT ---
L FOOT MIN 3 VIEWS ROUTINE CLINICAL HISTORY: Left foot pain. Evaluate for osteomyelitis. COMPARISON: Left foot radiographs July 15, 2016 and MRI of the left foot August 16, 2016. FINDINGS: Tarsometatarsal joints are intact. Osteopenia is noted. There is moderate posterior and minimal plantar calcaneal spurring. There is no radiographic evidence of osteomyelitis within the left foot. 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 There is no acute fracture. IMPRESSION: 1. No acute fracture or evidence of osteomyelitis within the left foot by radiography. 2. Dorsal left foot soft tissue swelling. Electronically signed by: Delio Head M.D. 07/09/2017 1:46 PM Dictated Date/Time: 07/09/2017 1:43 PM
[2017-07-09 13:58] LABS: ALBUMIN 3.7 gm/dl (3.4-5.0); CALCIUM 9.5 mg/dl (8.5-10.1); CREATININE 0.91 mg/dl (0.60-1.40); POTASSIUM 4.1 mmol/L (3.5-5.1)
[2017-07-09 14:01] LABS: TOTAL PROTEIN 9.2 gm/dl (6.4-8.2)
--- NOTE | 2017-07-09 15:43 | DIAGNOSTIC IMAGING REPORT ---
LEFT LOWER EXTREMITY VENOUS DOPPLER CLINICAL HISTORY: Left leg swelling. COMPARISON STUDY: Left lower extremity venous Doppler July 15, 2016. TECHNIQUE: Sonography of the deep venous system of the left lower extremity was performed. Compression and augmentation were evaluated. FINDINGS: The left common femoral, superficial femoral and popliteal veins were compressible. Augmentation was normal. Flow was shown within the deep calf vessels. Note was made of a 6.3 x 3.1 x 1.9 cm cystic abnormality within the medial left thigh. This is similar to CT of June 17, 2017 as well as ultrasound of July 15, 2016. The wall is slightly thickened. This contains no color flow. IMPRESSION: 1. No evidence of deep venous thrombus within the left lower extremity. 2. No significant change in the mildly complex left groin fluid collection which is nonspecific but likely reflects a seroma or lymphocele. Electronically signed by: Delio eHad M.D. 07/09/2017 3:41 PM Dictated Date/Time: 07/09/2017 3:28 PM
--- NOTE | 2017-07-09 15:46 | DIAGNOSTIC IMAGING REPORT ---
LEFT LOWER EXTREMITY ARTERIAL DOPPLER ULTRASOUND CLINICAL HISTORY: Left leg swelling. COMPARISON STUDY: Bilateral lower extremity arterial Doppler ultrasound October 22, 2014. FINDINGS: The right ankle to brachial index measured 1.02 when using posterior tibial artery and 0.71 when using the dorsalis pedis. The left ankle to brachial index measured 0.64 when using posterior tibial artery and 0.56 when using the dorsalis pedis. The femoral to femoral bypass graft is patent. There is extensive plaque within the left lower extremity. There is an elevated peak systolic velocity of 211 cm/s within the proximal left superficial femoral artery which suggests a hemodynamically significant stenosis. There is monophasic flow within the superficial femoral artery. The distal left superficial femoral artery and popliteal artery are occluded. There is distal reconstitution with monophasic flow within the left anterior tibial, posterior tibial, peroneal and dorsalis pedis vessels however this flow is dampened with monophasic waveform. IMPRESSION: 1. Significantly diminished left ankle to brachial index of 0.64. 2. Extensive atherosclerotic plaque within the left lower extremity with findings suggestive of a hemodynamically significant stenosis within the proximal left superficial femoral artery. 3. Patent femoral to femoral bypass. 4. Occlusion of the distal left superficial femoral artery and left popliteal artery with distal reconstitution. However, more distal flow is markedly dampened with monophasic waveform. Electronically signed by: Delio Head M.D. 07/09/2017 3:45 PM Dictated Date/Time: 07/09/2017 3:42 PM
[2017-07-09] MEDS ORDERED: ACETAMINOPHEN 500 MG TAB PO PRN (16:30)
[2017-07-09] MEDS ORDERED: MAGNESIUM HYDROXIDE SUSP 30 ML UDC PO PRN (17:00)
[2017-07-09] MEDS ORDERED: ALUMINUM/MAGNESIUM/SIMETH (MAALOX MAX) 30 ML UDC PO PRN (17:00)
[2017-07-09] MEDS ORDERED: ONDANSETRON INJ 2 MG/ML 2 ML VIAL IV PRN (17:00)
--- NOTE | 2017-07-09 17:03 | History and Physical ---
History & Physical Date & Time of Service: Jul 09, 2017 at 16:53 Chief Complaint: Feet/Legs Swollen Primary Care Physician: Benja López M.D. History of Present Illness 62-year-old male's been troubled by vascular compromise of his lower extremities and has been had a fairly significant left heel wound which is been healed by the care of our wound center. The patient's had some waxing and waning erythema to his left lower leg over the last few weeks reportedly had been on outpatient antibiotics through the wound care center of [facility] by mouth. Reportedly the patient's sister came to visit and felt his legs look dramatically worse there is a 3 x 4 mm looks to be a subcutaneous blood bullae on his left dorsal fourth toe at the DIP joint area this certainly could be traumatic but there is also some concern if this could be embolic or even infectious. The patient had studies in the ER including a negative Doppler for venous clot but is significantly abnormal arterial Doppler with significantly abnormal ankle brachial index. The patient has been skeptical of vascular surgery consult in the past due to a friend of his who had a poor outcome. The patient continues to despite his vascular disease and history of lung cancer. Due to the historical description of increased erythema swelling warmth and darkened areas to his left toes the patient is brought in for concern of cellulitis in the leg with vascular compromise. Past Medical/Surgical History Medical Problems: (1) Bipolar disorder Status: Chronic (2) Lung mass Status: Chronic Adenocarcinoma treated by radiation therapy and peripheral chemotherapy COPD BPH Peripheral artery disease History of anemia Hypertension Hyponatremia Family History Diabetes mellitus FHx: gallbladder disease FHx: heart disease Social History Smoking Status: Current Every Day Smoker Drug Use: none Marital Status: Housing status: [facility] Occupational Status: retired Immunizations History of Influenza Vaccine: Yes History of Tetanus Vaccine?: Unknown History of Pneumococcal: No History of Hepatitis B Vaccine: Unknown Multi-Drug Resistant Organisms History of MDRO: No Allergies Coded Allergies: Ciprofloxacin (Verified Allergy, Intermediate, RASH, 07/09/17) Vancomycin (Verified Allergy, Intermediate, RASH, 07/09/17) Home Medications Scheduled Artificial Tears Oph Oint (Lacri-Lube Sop Oph Oint), 0.25-0.5 INCH OP TID Ascorbic Acid (Vitamin C), 500 MG PO BID Aspirin (Aspirin Ec), 81 MG PO QAM Bupropion HCl (Bupropion HCl Sr), 100 MG PO QAM Divalproex Sodium (Depakote Delay Rel), 500 MG PO QAM Divalproex Sodium (Depakote), 750 MG PO HS Dutasteride (Avodart), 0.5 MG PO QAM Linezolid (Zyvox), 600 MG PO BID Melatonin (Melatonin Maximum Strengt), 1 TAB PO HS Metoprolol Succinate (Toprol Xl), 25 MG PO QAM Quetiapine Fumarate (Seroquel), 100 MG PO HS Tamsulosin Hcl (Flomax), 0.4 MG PO QPM Tramadol (Ultram), 50 MG PO QPM Scheduled PRN Acetaminophen (Tylenol), 500 MG PO Q6H PRN for Pain or Fever Review of Systems ROS: well nourished well developed No double vision blurry vision No problems with speech or swallowing No palpitations, chest pain or pressure No Wheezing or breathing issues although he does have a history of emphysema he does not use meds No abdominal pain nausea vomiting diarrhea changes in appetite or weight No burning urine urine frequency or changes in color No focal joint pain or muscle pain Increased redness swelling flakiness and the small black areas to the DIP dorsal area of his left fourth toe No unusual bruising or bleeding No focused back pain or numbness or loss of strength No changes in memory or confusion Physical Exam Vital Signs Date Time Temp Pulse Resp B/P (MAP) Pulse Ox O2 Delivery O2 Flow Rate FiO2 07/09/17 15:07 99 16 117/88 100 Room Air 07/09/17 12:25 36.3 102 20 98 Room Air General Appearance: WD/WN, + mild distress Head: normocephalic, atraumatic Eyes: normal inspection, sclerae normal Respiratory/Chest: chest non-tender, lungs clear, normal breath sounds Cardiovascular: regular rate, rhythm, no murmur Abdomen/GI: normal bowel sounds, non tender, soft Back: no CVA tenderness, no muscle spasm Extremities/Musculoskelatal: + pertinent finding (patient has lower extremities consistent with vascular compromise bilaterally left is markedly worse he is a defect of his left heel from what was probably L healed heel ulcer. History of has a darkened area which looks to be subcutaneous blood his capillary refill is markedly prolonged and pulses are not palpable either lower extremity) Neurologic/Psych: alert, oriented x 3 Skin: + pertinent finding (redness to the knees bilaterally left leg is worse than right) Diagnostics Laboratory Results Results Past 24 Hours Test 07/09/17 13:22 07/09/17 13:31 07/09/17 13:32 Range/Units White Blood Count 8.15 4.8-10.8 K/uL Red Blood Count 3.99 4.7-6.1 M/uL Hemoglobin 12.7 14.0-18.0 g/dL Hematocrit 36.7 42-52 % Mean Corpuscular Volume 92.0 80-100 fL Mean Corpuscular Hemoglobin 31.8 25-34 pg Mean Corpuscular Hemoglobin Concent 34.6 32-36 g/dl Platelet Count 292 130-400 K/uL Mean Platelet Volume 8.8 7.4-10.4 fL Neutrophils (%) (Auto) 70.9 % Lymphocytes (%) (Auto) 13.3 % Monocytes (%) (Auto) 12.3 % Eosinophils (%) (Auto) 3.1 % Basophils (%) (Auto) 0.2 % Neutrophils # (Auto) 5.78 1.4-6.5 K/uL Lymphocytes # (Auto) 1.08 1.2-3.4 K/uL Monocytes # (Auto) 1.00 0.11-0.59 K/uL Eosinophils # (Auto) 0.25 0-0.5 K/uL Basophils # (Auto) 0.02 0-0.2 K/uL RDW Standard Deviation 55.6 36.4-46.3 fL RDW Coefficient of Variation 16.5 11.5-14.5 % Immature Granulocyte % (Auto) 0.2 % Immature Granulocyte # (Auto) 0.02 0.00-0.02 K/uL D-Dimer 2080 0-500 ug/L FEU Sodium Level 131 136-145 mmol/L Potassium Level 4.1 3.5-5.1 mmol/L Chloride Level 96 98-107 mmol/L Carbon Dioxide Level 29 21-32 mmol/L Anion Gap 6.0 3-11 mmol/L Blood Urea Nitrogen 13 7-18 mg/dl Creatinine 0.91 0.60-1.40 mg/dl Est Creatinine Clear Calc Drug Dose 87.7 ml/min Estimated GFR () 103.6 Estimated GFR (Non- 89.4 BUN/Creatinine Ratio 13.8 10-20 Random Glucose 84 70-99 mg/dl Calcium Level 9.5 8.5-10.1 mg/dl Total Bilirubin 0.2 0.2-1 mg/dl Direct Bilirubin 0.1 0-0.2 mg/dl Aspartate Amino Transf (AST/SGOT) 28 15-37 U/L Alanine Aminotransferase (ALT/SGPT) 27 12-78 U/L Alkaline Phosphatase 95 45-117 U/L Total Protein 9.2 6.4-8.2 gm/dl Albumin 3.7 3.4-5.0 gm/dl Lipase 216 73-393 U/L Bedside Troponin I < 0.030 0-0.045 ng/ml Bedside Lactic Acid Venous 1.76 0.90-1.70 mmol/L Microbiology Results 07/09/17 Blood Culture, Received Pending 07/09/17 Blood Culture, Received Pending Diagnostic Radiology Lower leg venous Doppler 1. No evidence of deep venous thrombus within the left lower extremity. 2. No significant change in the mildly complex left groin fluid collection which is nonspecific but likely reflects a seroma or lymphocele. Lower leg arterial Doppler 1. Significantly diminished left ankle to brachial index of 0.64. 2. Extensive atherosclerotic plaque within the left lower extremity with findings suggestive of a hemodynamically significant stenosis within the proximal left superficial femoral artery. 3. Patent femoral to femoral bypass. 4. Occlusion of the distal left superficial femoral artery and left popliteal artery with distal reconstitution. However, more distal flow is markedly dampened with monophasic waveform. Left foot plain x-ray soft tissue swelling only other (chest x-ray shows post radiation changes) Normal EKG Impression Assessment and Plan 62-year-old male with apparent progression of left lower extremity erythema with known arterial vascular compromise Infectious disease, given the patient's allergy to quinolones and vancomycin and also being on current Zyvox we will choose to use daptomycin and imipenem with infectious disease consult wound care consult and pending cultures Arterial vascular compromise we'll maintain the patient's aspirin will have a vascular surgery consult Patient's history of bipolar disease and depression is assessed as stable at this time patiently maintain his Wellbutrin and Depakote with the pending level Seroquel for sleep Patient history of hypertension this appears to be reasonably controlled we'll use metoprolol as at home 25 mg in the morning BPH the patient has no symptoms currently of having any urinary retention we'll continue Flomax and pharmacy substituted Avodart DVT prevention is based upon heparin therapy Smoking cessation counseling was given the patient requests a nicotine patch Level of Care Med/Surg VTE Prophylaxis VTE Risk Assessment Done? Y/N: Yes Risk Level: Moderate Given or contraindicated: Unfractionated heparin SQ
[2017-07-09 17:31] LABS: INR 0.9 (0.9-1.1)
[2017-07-09 18:00] VITALS: BP 168/90; PULSE 93; TEMP 36.7; O2SAT 100
[2017-07-09 18:42] VITALS: BP 168/90; PULSE 93; TEMP 36.7; O2SAT 97; Ht 172.7 cm; Wt 84.0 kg
[2017-07-09] MEDS: IMIPENEM-CILASTATIN 250 MG in DEXTROSE 5% 100ML 100 ML IV SCH (20:56)
[2017-07-09] MEDS: TAMSULOSIN HCL 0.4 MG CAP PO SCH (20:59)
[2017-07-09] MEDS: ARTIFICIAL TEARS OP OINT 3.5 GM TUBE OP SCH (20:59)
[2017-07-09] MEDS: QUETIAPINE FUMARATE 100 MG TAB PO SCH (20:59)
[2017-07-09] MEDS: DIVALPROEX SODIUM 250 MG DELAY REL TAB PO SCH (20:59)
[2017-07-09] MEDS: ASCORBIC ACID 500 MG TAB PO SCH (21:00)
[2017-07-09] MEDS: NICOTINE 21 MG/24 HR TDSY TD SCH (21:01)
[2017-07-09] MEDS: TRAMADOL HCL 50 MG TAB PO SCH (21:06)
[2017-07-09] MEDS: HEPARIN SOD 5000 UNIT/0.5 ML CARP SQ SCH (21:06)
[2017-07-09] MEDS: DAPTOmycin IV 575 MG in SYRINGE 0 ML IV SCH (22:00)
[2017-07-09 23:54] VITALS: BP 128/62; PULSE 91; TEMP 36.8; O2SAT 95
[2017-07-10] MEDS: IMIPENEM-CILASTATIN 250 MG in DEXTROSE 5% 100ML 100 ML IV SCH ×5 (00:48→23:49)
[2017-07-10 06:08] LABS: HEMATOCRIT 34.2 % (42-52); HEMOGLOBIN 11.8 g/dL (14.0-18.0); MEAN CELL VOLUME 91.4 fL (80-100); MEAN CORPUSCULAR HEMOGLOBIN 31.6 pg (25-34); MEAN CORPUSCULAR HGB CONC 34.5 g/dl (32-36); MEAN PLATELET VOLUME 8.7 fL (7.4-10.4); PLATELET COUNT 231 K/uL (130-400); RED CELL DISTRIBUTION WIDTH CV 16.6 % (11.5-14.5); RED CELL DISTRIBUTION WIDTH SD 55.3 fL (36.4-46.3)
[2017-07-10] MEDS: ACETAMINOPHEN 325 MG TAB PO PRN ×2 (06:08→15:45)
[2017-07-10 06:41] LABS: CALCIUM 8.7 mg/dl (8.5-10.1); CREATININE 0.68 mg/dl (0.60-1.40)
[2017-07-10 07:55] VITALS: BP 121/83; PULSE 86; TEMP 36.3; O2SAT 99
[2017-07-10] MEDS ORDERED: DAPTOMYCIN IV SCH (08:00)
[2017-07-10] MEDS ORDERED: SODIUM CHLORIDE 0.9% IV SCH (08:00)
[2017-07-10] MEDS: AVODART: ORDER AWAITING ACTION SCH ×4 (08:00→23:38)
[2017-07-10] MEDS: ASCORBIC ACID 500 MG TAB PO SCH ×2 (08:41→20:27)
[2017-07-10] MEDS: BuPROPion SR 100 MG TABCR PO SCH (08:41)
[2017-07-10] MEDS: DIVALPROEX SODIUM 500 MG DELAY RELEASE TAB PO SCH (08:42)
[2017-07-10] MEDS: METOPROLOL SUCC 25MG EXT REL TAB PO SCH (08:42)
[2017-07-10] MEDS: ASPIRIN 81 MG ECTAB PO SCH (08:42)
[2017-07-10] MEDS: ARTIFICIAL TEARS OP OINT 3.5 GM TUBE OP SCH ×3 (08:43→20:27)
[2017-07-10] MEDS: NICOTINE 21 MG/24 HR TDSY TD SCH (08:44)
[2017-07-10] MEDS: HEPARIN SOD 5000 UNIT/0.5 ML CARP SQ SCH ×2 (08:48→21:13)
--- NOTE | 2017-07-10 12:23 | Surgery Consultation ---
Consultation Date of Service Jul 10, 2017. Chief Complaint Left leg swelling and discoloration left 4th toe History of Present Illness The patient is a 62 year old male who developed redness and swelling of his left leg. He also developed a blister over his left 4th toe. 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 USN showed the SFA and popliteal to be occluded. He denies any rest pain in the foot or claudication. He had a left heel ulcer which is now healed. Vitals Vital Signs Past 12 Hours Date Time Temp Pulse Resp B/P (MAP) Pulse Ox O2 Delivery O2 Flow Rate FiO2 07/10/17 09:00 Room Air 07/10/17 07:55 36.3 86 20 121/83 (96) 99 Room Air 07/10/17 03:46 Room Air Allergies Coded Allergies: Ciprofloxacin (Verified Allergy, Intermediate, RASH, 07/09/17) Vancomycin (Verified Allergy, Intermediate, RASH, 07/09/17) Home Medications Scheduled Artificial Tears Oph Oint (Lacri-Lube Sop Oph Oint), 0.25-0.5 INCH OP TID Ascorbic Acid (Vitamin C), 500 MG PO BID Aspirin (Aspirin Ec), 81 MG PO QAM Bupropion HCl (Bupropion HCl Sr), 100 MG PO QAM Divalproex Sodium (Depakote Delay Rel), 500 MG PO QAM Divalproex Sodium (Depakote), 750 MG PO HS Dutasteride (Avodart), 0.5 MG PO QAM Linezolid (Zyvox), 600 MG PO BID Melatonin (Melatonin Maximum Strengt), 1 TAB PO HS Metoprolol Succinate (Toprol Xl), 25 MG PO QAM Quetiapine Fumarate (Seroquel), 100 MG PO HS Tamsulosin Hcl (Flomax), 0.4 MG PO QPM Tramadol (Ultram), 50 MG PO QPM Scheduled PRN Acetaminophen (Tylenol), 500 MG PO Q6H PRN for Pain or Fever Problem List Medical Problems: (1) Bipolar disorder (2) Drug reaction (3) HYPOTENSION, LUNG CANCER,PAD,LEFT HEEL ULCER (4) ISCHEMIA L FOOT,PAD,LUNG CA (5) Ischemic rest pain of lower extremity (6) Lower extremity cellulitis (7) Lung mass Surgical / Medical History Hx Cardiac Surgery: No Hx Abdominal Surgery: No Hx Cancer Surgery: No Hx Thoracic Surgery: No Hx Orthopedic: No Hx Urinary Tract Surgery: Yes (VASECTOMY) Family History Diabetes mellitus FHx: gallbladder disease FHx: heart disease Social History Smoking Status: Current Every Day Smoker Hx Tobacco Use In Past Year?: Yes Hx Alcohol Use - Type & Amnt: Yes (HX ALCOHOL ABUSE; 3-4 /WEEK) Hx Substance Use -Type & Amnt: Yes (MARIJUANA "2-3 BOWLS PER DAY") Review of Systems Constitutional: No chills, No diaphoresis, No fever, No malaise, No weakness, No weight gain, No weight loss, No sweats, No fatigue, No problem reported Skin: No change in color, No change in hair/nails, No dryness, No lesions, No lumps, No rash, No abnormal mole, No problem reported Respiratory: No cough, No cyanosis, No NEWBY, No hemoptysis, No orthopnea, No PND , No short of breath, No sputum production, No stridor, No wheezing, No dyspnea , No problem reported Cardiovascular: No chest pain, No chest tightness, No chest pressure, No palpitations, No syncope, No diaphoresis, No edema, No intermittent claudication , No orthopnea, No cyanosis, No mumur, No lightheadedness, No paroxysmal nocturnal dyspnea, No problem reported Gastrointestinal: No abdominal pain, No constipation, No diarrhea, No nausea, No vomiting, No anorexia, No appetite changes, No belching, No flatulence, No food intolerance, No hematemesis, No hemorrhoids, No hematochezia, No stool changes, No heartburn, No indigestion, No dysphagia, No rectal bleeding, No problem reported Musculoskeletal: No back pain, No gout, No joint pain, No joint swelling, No muscle pain, No muscle stiffness, No muscle weakness, No neck pain, No problem reported Neurologic: No dizziness, No weakness, No headache, No lethargy, No numbness, No paresthesia, No pre-existing deficit, No seizures, No tics, No tingling, No tremors, No vertigo, No memory loss, No LOC, No problem reported Psychiatric: No anxiety, No alcohol abuse, No auditory hallucinations, No depression, No drug abuse, No homicidal ideation, No mood changes, No suicidal ideation, No visual hallucinations, No problem reported Physical Exam Constitutional: General Apperance: heathly-appearing, well-nourished, well-developed Level of Distress: NAD Ambulation: limited ambulation Psychiatric: Mental Status: active & alert, normal mood, normal affect Orientation: oriented except where noted, to time, to place, to person Memory: recent memory normal, remote memory normal Cardiovascular: Heart Auscultation: RRR Peripheral Pulses: Radial Pulse: normal on the left, normal on the right Femoral Pulse: normal on the left, normal on the right Posterior Tibialis Pulse: absent on the left, absent on the right Dorsalis Pedis Pulse: absent on the left, absent on the right Abdomen: Inspection & Palpation: soft Extremities: Upper Right: no cyanosis, no edema, no varicosities, no palpable cord, no clubbing, no ulcers, no mottling Upper Left: no cyanosis, no edema, no palpable cord, no clubbing, no ulcers , no mottling Lower Right: no cyanosis, no edema, no varicosities, no palpable cord, no clubbing, no ulcers, no mottling Lower Left: edema, pertinent finding (slight erythem of the lower leg with blister over dorsum of 4th toe) Neurologic: Cranial Nerves: grossly intact Sensation: grossly intact Assessment and Plan Imp: Left popliteal artery occlusion Plan: At this time will order a CTA of abdomen and pelvis to evaluate inflow of the cross femoral bypass. There is no evidence of severe ischemia of the left leg to warrant urgent intervention. Would continue to treat with antibiotics and leg elevation for the edema. Thank you very much for letting me participate in the care of this patient.
[2017-07-10] MEDS ORDERED: OPTIRAY 320 IV PRN (14:15)
--- NOTE | 2017-07-10 14:28 | DIAGNOSTIC IMAGING REPORT ---
ADDENDUM ADDITIONAL IMPRESSION: 6. Peribronchovascular consolidation in the right lower lobe and bronchial wall thickening raises concern for pneumonia. Dedicated imaging of the chest could be considered. Electronically signed by: Raj Mederos M.D. 07/10/2017 2:42 PM Dictated Date/Time: 07/10/2017 2:41 PM ORIGINAL REPORT ANGIO [facility] CLINICAL HISTORY: 62 years-old Male presenting with left foot blister, history of femoral bypass. TECHNIQUE: Multidetector CT angiography of the abdomen and pelvis with bilateral lower extremity runoff was performed after the administration of intravenous contrast. 3-D volumetric and/or maximum intensity projection (MIP) images were subsequently reconstructed for review. IV contrast: 120 mL of Optiray 320. A dose lowering technique was used consistent with the principles of ALARA (as low as reasonably achievable). Stenosis measurements were based on NASCET-like criteria. COMPARISON: CT of the abdomen and pelvis from 06/17/2017. CT DOSE (mGy.cm): The estimated cumulative dose is 1251.78 mGy.cm. FINDINGS: Computer Forensics Technician topogram: Unremarkable. Calcified and noncalcified atherosclerotic plaque throughout the abdominal aorta. Celiac artery origin widely patent. Superior mesenteric artery with calcified plaque at the origin though without significant stenosis. Single right renal artery widely patent. Prominent plaque resulting in approximately 50% stenosis of the single left renal artery approximately 1 to 2 cm from the origin. Inferior mesenteric artery patent. Small crescentic outpouching along the anterior aspect of the abdominal aorta immediately inferior to the takeoff of the MARISOL (series 2 images 264) with a single small fenestration. This may represent a dissection as this abnormality continues distally into the left common iliac artery. The true lumen of the left common iliac artery is completely occluded though the false lumen appears patent. The left internal iliac artery is opacified likely from retrograde filling as it appears to takeoff from the true lumen. The left external iliac artery is opacified likely via the false lumen and collateral flow from the femoral-femoral bypass graft. The bypass is widely patent. Right common, external, and internal iliac arteries patent though significant plaque results and multifocal narrowing (less than 50% stenosis). In the lower extremities the superficial femoral arteries demonstrate diffuse calcified and noncalcified atherosclerotic plaque resulting in diffuse narrowing (at least 50% stenosis) though the degree of calcified plaque makes quantification difficult. The right popliteal artery is patent though diffusely narrowed by plaque. 3 vessels of the right lower leg appear grossly patent though narrowing caliber. The left popliteal artery contains a stent which is occluded. The 3 vessels of the left lower leg are patent though narrowed likely supplied by collateral flow via small collaterals arising from the left SFA at the level of the abductor hiatus. Diffuse subcutaneous edema in the right lower leg. Round fluid collection in the left inguinal region likely represents a seroma or old hematoma. Lung bases demonstrate peribronchovascular consolidation in the right lower lobe and ocular wall thickening. Top normal heart size. Liver, gallbladder, pancreas, spleen, adrenal glands, and kidneys within normal limits for the phase of contrast. Bladder underdistended. Normal prostate. No bowel obstruction. Normal appendix. No lymphadenopathy. No free fluid or gas. Degenerative change of the spine. Mild osteopenia. Mild wedging deformity of T12. IMPRESSION: 1. Patent femoral-femoral bypass graft. 2. Occluded left popliteal stent graft. Left lower leg arteries supplied by collateral flow via small collaterals arising from the left SFA at the level of the abductor hiatus. 3. Diffuse left lower leg edema. 4. 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 This extends into the left common iliac artery, the true lumen of which is completely occluded. 5. Extensive ossified and noncalcified atherosclerotic plaque resulting in multifocal narrowing including the proximal left renal artery and extensively in the lower extremities further detailed above. Electronically signed by: Raj Mederos M.D. 07/10/2017 2:27 PM Dictated Date/Time: 07/10/2017 2:08 PM
--- NOTE | 2017-07-10 14:36 | Progress Note ---
Subjective Date of Service: Jul 10, 2017. Subjective Pt evaluation today including: conversation w/ patient, physical exam, chart review, lab review, review of studies, conversation w/ benefits sales consultant, review of inpatient medication list Doing well, eating lunch, pain controlled, left lower extremity less swelling and edema, less red, deny fever and chill, no other complaints Problem List Medical Problems: (1) Acute bronchitis Status: Acute (2) Allergic reaction Status: Acute (3) Anemia Status: Acute (4) Arterial insufficiency of lower extremity Status: Acute (5) Cellulitis of left lower leg Status: Acute (6) Cellulitis of leg, left Status: Acute (7) Failure of outpatient treatment Status: Acute (8) Hypertension Status: Acute (9) Hyponatremia Status: Acute (10) Hypotension Status: Acute (11) Left leg cellulitis Status: Acute (12) Left upper quadrant pain Status: Acute (13) Leg edema, left Status: Acute (14) Mass of upper lobe of left lung Status: Acute (15) Osteomyelitis Status: Acute (16) Sepsis Status: Acute (17) Shortness of breath Status: Acute (18) Thrush Status: Acute (19) Wound infection Status: Acute Review of Systems Constitutional: No fever, No chills, No sweats, No weight loss, No weakness, No fatigue, No problem reported Eyes: No worsening of vision, No eye pain, No redness, No discharge, No diplopia ENT: No hearing loss, No unusual epistaxis, No nasal symptoms, No sore throat, No tinnitus, No dental problems, No trouble swallowing Respiratory: No cough, No sputum, No wheezing, No shortness of breath, No dyspnea on exertion, No dyspnea at rest, No hemoptysis Cardiac: No chest pain, No orthopnea, No PND, No edema, No claudication, No palpitations Abdomen: No pain, No nausea, No vomiting, No diarrhea, No constipation Musculoskeletal: No joint pain, No muscle pain, No swelling, No calf pain Male : No dysuria, No urinary frequency, No incontinence, No nocturia more than once/night, No slowing stream, No hematuria Neurologic: No memory loss, No paralysis, No weakness, No numbness/tingling, No vertigo, No balance problems Psychiatric: No depression symptoms, No anhedonism, No anxiety, No insomnia, No substance abuse Heme: No abnormal bleeding/bruising, No clotting problems, No swollen lymph nodes, No night sweats Endo: No fatigue, No excessive thirst, No excessive urination Skin: + see HPI, No rash, No itch, No new/changing skin lesions, No color change, No bleeding Objective Vital Signs Date Time Temp Pulse Resp B/P (MAP) Pulse Ox O2 Delivery O2 Flow Rate FiO2 07/10/17 09:00 Room Air 07/10/17 07:55 36.3 86 20 121/83 (96) 99 Room Air 07/10/17 03:46 Room Air 07/09/17 23:54 36.8 91 20 128/62 (84) 95 Room Air 07/09/17 18:42 36.7 93 20 168/90 97 Room Air 07/09/17 18:00 36.7 93 20 168/90 (116) 100 Room Air 07/09/17 17:05 93 16 143/85 100 Room Air 07/09/17 15:07 99 16 117/88 100 Room Air Physical Exam General Appearance: WD/WN, no apparent distress, + thin Eyes: normal inspection, PERRL, EOMI, sclerae normal ENT: normal ENT inspection, hearing grossly normal, pharynx normal Neck: supple, no adenopathy, thyroid normal, no JVD, no carotid bruits, trachea midline Respiratory/Chest: chest non-tender, lungs clear, normal breath sounds, no respiratory distress, no accessory muscle use Cardiovascular: regular rate, rhythm, no edema, no gallop, no JVD, no murmur Abdomen: normal bowel sounds, non tender, soft, no organomegaly, no pulsatile mass Extremities: normal capillary refill, pelvis stable, + pertinent finding (left lower extremity heel has 22 cm open wound, lower extremity left foot has swelling and erythema, no tender) Neurologic/Psychiatric: ambulance assistant II-XII nml as tested, no motor/sensory deficits, alert, normal mood/affect, oriented x 3 Skin: normal color, warm/dry, no rash Lymphatic: no adenopathy Laboratory Results Last 24 Hours Test 07/10/17 05:16 White Blood Count 5.40 K/uL Red Blood Count 3.74 M/uL Hemoglobin 11.8 g/dL Hematocrit 34.2 % Mean Corpuscular Volume 91.4 fL Mean Corpuscular Hemoglobin 31.6 pg Mean Corpuscular Hemoglobin Concent 34.5 g/dl RDW Standard Deviation 55.3 fL RDW Coefficient of Variation 16.6 % Platelet Count 231 K/uL Mean Platelet Volume 8.7 fL Sodium Level 133 mmol/L Potassium Level 4.0 mmol/L Chloride Level 100 mmol/L Carbon Dioxide Level 26 mmol/L Anion Gap 7.0 mmol/L Blood Urea Nitrogen 13 mg/dl Creatinine 0.68 mg/dl Est Creatinine Clear Calc Drug Dose 117.4 ml/min Estimated GFR () 117.8 Estimated GFR (Non- 101.6 BUN/Creatinine Ratio 18.9 Random Glucose 92 mg/dl Calcium Level 8.7 mg/dl Valproic Acid (Depakene) Level 73 mcg/ml Assessment and Plan 62-year-old male with meat is on 07/09/2017 because of cellulitis left lower extremity erythema history of PAD cellulitis left lower extremity Left heel wound Continue daptomycin and imipenem Follow-up nfectious disease consult Continue wound care consult Follow-up culture and sensitivity Left popliteal artery occlusion, vascular surgeon input appreciated, CTA of abdomen and pelvis to evaluate inflow of the cross femoral bypass. There is no evidence of severe ischemia of the left leg to warrant urgent intervention. continue to treat with antibiotics and leg elevation for the edema. History of bipolar disease and depression , cont Wellbutrin and Depakote, etc. hypertension BPH Above condition stable continue current medication Drug abuse disorder, also quit smoking and offered help with nicotine patch DVT, GI prophylaxis covered Continued [facility] stay due to: multiple IV medications needed Discharge planning: home
[2017-07-10 16:45] VITALS: BP 123/62; PULSE 90; TEMP 36.7; O2SAT 97
[2017-07-10] MEDS ORDERED: TRAMADOL HCL 50 MG TAB PO STA (17:13)
[2017-07-10] MEDS ORDERED: NURSING VERBAL MED ORDER ONE (17:15)
[2017-07-10] MEDS: TRAMADOL HCL 50 MG TAB PO SCH (20:26)
[2017-07-10] MEDS: DAPTOmycin IV 575 MG in SYRINGE 0 ML IV SCH (20:26)
[2017-07-10] MEDS: DIVALPROEX SODIUM 250 MG DELAY REL TAB PO SCH (20:27)
[2017-07-10] MEDS: TAMSULOSIN HCL 0.4 MG CAP PO SCH (20:27)
[2017-07-10] MEDS: QUETIAPINE FUMARATE 100 MG TAB PO SCH (20:28)
--- NOTE | 2017-07-10 22:20 | Medical Consult ---
Consultation Date of Consultation: Jul 10, 2017. 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 Patient had been doing well, but recently missed [facility]. He now presents with several days of progressively worsening redness and swelling of both lower extremities. Does not report any significant fever or chills. He was found to have evidence of bilateral lower extremity cellulitis, and has been admitted and started empirically on imipenem. Cultures are pending. Patient notes significant pain in both legs. Past Medical/Surgical History Medical Problems: (1) Acute bronchitis Status: Acute (2) Allergic reaction Status: Acute (3) Anemia Status: Acute (4) Arterial insufficiency of lower extremity Status: Acute (5) Cellulitis of left lower leg Status: Acute (6) Cellulitis of leg, left Status: Acute (7) Failure of outpatient treatment Status: Acute (8) Hypertension Status: Acute (9) Hyponatremia Status: Acute (10) Hypotension Status: Acute (11) Left leg cellulitis Status: Acute (12) Left upper quadrant pain Status: Acute (13) Leg edema, left Status: Acute (14) Mass of upper lobe of left lung Status: Acute (15) Osteomyelitis Status: Acute (16) Sepsis Status: Acute (17) Shortness of breath Status: Acute (18) Thrush Status: Acute Medical Problems: (1) Bipolar disorder (2) Drug reaction (3) HYPOTENSION, LUNG CANCER,PAD,LEFT HEEL ULCER (4) ISCHEMIA L FOOT,PAD,LUNG CA (5) Ischemic rest pain of lower extremity (6) Lower extremity cellulitis (7) Lung mass Family History Diabetes mellitus FHx: gallbladder disease FHx: heart disease Social History Smoking Status: Current Every Day Smoker Drug Use: none Marital Status: Housing Status: lives alone Occupation Status: retired Allergies Coded Allergies: Ciprofloxacin (Verified Allergy, Intermediate, RASH, 07/09/17) Vancomycin (Verified Allergy, Intermediate, RASH, 07/09/17) Current Inpatient Medications Current Inpatient Medications Medications (Trade) Dose Ordered Sig/Rinku Route Start Time Stop Time Status Last Admin Dose Admin Artificial Tears (Lacri-Lube Oph Oint) 1 appln TID OP 07/09/17 20:00 08/08/17 20:59 07/10/17 20:27 1 APPLN Ascorbic Acid (Vitamin C Tab) 500 mg BID PO 07/09/17 20:00 08/08/17 20:59 07/10/17 20:27 500 MG Aspirin (Ecotrin Tab) 81 mg QAM PO 07/10/17 08:00 08/09/17 08:59 07/10/17 08:42 81 MG Bupropion HCl (Wellbutrin-Sr Tab) 100 mg QAM PO 07/10/17 08:00 08/09/17 08:59 07/10/17 08:41 100 MG Divalproex Sodium (Depakote Delay Rel Tab) 500 mg QAM PO 07/10/17 08:00 08/09/17 08:59 07/10/17 08:42 500 MG Divalproex Sodium (Depakote Delay Rel Tab) 750 mg HS PO 07/09/17 21:00 08/08/17 20:59 07/10/17 20:27 750 MG Metoprolol Succinate (Toprol Xl Tab) 25 mg QAM PO 07/10/17 08:00 08/09/17 08:59 07/10/17 08:42 25 MG Quetiapine Fumarate (seroQUEL TAB) 100 mg HS PO 07/09/17 21:00 08/08/17 20:59 07/10/17 20:28 100 MG Tamsulosin HCl (Flomax Cap) 0.4 mg QPM PO 07/09/17 21:00 08/08/17 20:59 07/10/17 20:27 0.4 MG Tramadol HCl (Ultram Tab) 50 mg QPM PO 07/09/17 21:00 08/08/17 20:59 07/10/17 20:26 50 MG Miscellaneous Information (Order Awaiting Action) 1 ea QS N/A 07/10/17 00:00 08/09/17 00:00 Imipenem/ Cilastatin Sodium 250 mg/Dextrose 110 ml @ 100 mls/hr Q6H IV 07/09/17 18:30 07/19/17 18:29 07/10/17 18:04 100 MLS/HR Acetaminophen (Tylenol Tab) 650 mg Q4H PRN PO 07/09/17 17:00 08/08/17 16:59 07/10/17 15:45 650 MG Al Hydrox/Mg Hydrox/Simethicone (Maalox Max Susp) 15 ml Q4H PRN PO 07/09/17 17:00 08/08/17 16:59 Magnesium Hydroxide (Milk Of Magnesia Susp) 30 ml Q6H PRN PO 07/09/17 17:00 08/08/17 16:59 Ondansetron HCl (Zofran Inj) 4 mg Q6H PRN IV 07/09/17 17:00 08/08/17 16:59 Heparin Sodium (Porcine) (Heparin Sq 5000 Unit/0.5ml) 5,000 unit Q12 SQ 07/09/17 21:00 08/08/17 20:59 07/10/17 21:13 5,000 UNIT Nicotine (Nicoderm Cq 21MG Patch) 1 patch QAM TD 07/09/17 17:15 08/08/17 17:14 07/10/17 08:44 1 PATCH Miscellaneous (Remove Nicoderm Patch) 1 ea HS N/A 07/09/17 21:00 08/08/17 20:59 07/10/17 21:21 1 EA Daptomycin 575 mg/ Syringe 11.5 ml @ 5.75 mls/ min DAILY@2000 IV 07/09/17 20:00 07/19/17 19:59 07/10/17 20:26 5.75 MLS/MIN Ioversol (Optiray 320) 100 ml UD PRN IV 07/10/17 14:15 07/14/17 14:14 Review of Systems All systems were reviewed and are negative except as per HPI Physical Exam Date Time Temp Pulse Resp B/P (MAP) Pulse Ox O2 Delivery O2 Flow Rate FiO2 07/10/17 16:45 36.7 90 18 123/62 (82) 97 Room Air 07/10/17 15:30 Room Air 07/10/17 09:00 Room Air 07/10/17 07:55 36.3 86 20 121/83 (96) 99 Room Air 07/10/17 03:46 Room Air 07/09/17 23:54 36.8 91 20 128/62 (84) 95 Room Air General Appearance: WD/WN, no apparent distress Head: normocephalic, atraumatic Eyes: normal inspection, EOMI, funduscopic exam normal ENT: normal ENT inspection, pharynx normal Neck: supple, no adenopathy, thyroid normal, trachea midline Respiratory/Chest: chest non-tender, lungs clear, normal breath sounds, no respiratory distress Cardiovascular: regular rate, rhythm, no gallop, no murmur Abdomen/GI: normal bowel sounds, non tender, soft, no organomegaly Back: normal inspection, no CVA tenderness Extremities/Musculoskelatal: no calf tenderness, + inflammation, + slow capillary refill, + swelling Neurologic/Psych: alert, oriented x 3 Skin: normal color, no rash, + pertinent finding (Bilateral lower extremity cellulitis below the knees) Lymphatic: no adenopathy Laboratory Results Last 24 Hours Test 07/10/17 05:16 White Blood Count 5.40 K/uL Red Blood Count 3.74 M/uL Hemoglobin 11.8 g/dL Hematocrit 34.2 % Mean Corpuscular Volume 91.4 fL Mean Corpuscular Hemoglobin 31.6 pg Mean Corpuscular Hemoglobin Concent 34.5 g/dl RDW Standard Deviation 55.3 fL RDW Coefficient of Variation 16.6 % Platelet Count 231 K/uL Mean Platelet Volume 8.7 fL Sodium Level 133 mmol/L Potassium Level 4.0 mmol/L Chloride Level 100 mmol/L Carbon Dioxide Level 26 mmol/L Anion Gap 7.0 mmol/L Blood Urea Nitrogen 13 mg/dl Creatinine 0.68 mg/dl Est Creatinine Clear Calc Drug Dose 117.4 ml/min Estimated GFR () 117.8 Estimated GFR (Non- 101.6 BUN/Creatinine Ratio 18.9 Random Glucose 92 mg/dl Calcium Level 8.7 mg/dl Valproic Acid (Depakene) Level 73 mcg/ml Patient Name: JAMARCUS PAYTON Unit Number: [id number] Dictated: 07/10/171440 Transcribed: 07/10/171440 PBS Printed Date/Time: [~ rep prt dt]/[~ rep prt tm] [~ rep ct labl] - [~ rep ct ivnm] [facility] [place] [place] [address] Dictated: 07/10/171440 Transcribed: 07/10/17 1441 PBS Printed Date/Time: [~ rep prt dt]/[~ rep prt tm] [~ rep ct labl] - [~ rep ct ivnm] ADDITIONAL IMPRESSION: 6. Peribronchovascular consolidation in the right lower lobe and bronchial wall thickening raises concern for pneumonia. Dedicated imaging of the chest could be considered. Electronically signed by: Raj Mederos M.D. 07/10/2017 2:42 PM Dictated Date/Time: 07/10/2017 2:41 PM ORIGINAL REPORT ANG[facility] CLINICAL HISTORY: 62 years-old Male presenting with left foot blister, history of femoral bypass. TECHNIQUE: Multidetector CT angiography of the abdomen and pelvis with bilateral lower extremity runoff was performed after the administration of intravenous contrast. 3-D volumetric and/or maximum intensity projection (MIP) images were subsequently reconstructed for review. IV contrast: 120 mL of Optiray 320. A dose lowering technique was used consistent with the principles of ALARA (as low as reasonably achievable). Stenosis measurements were based on NASCET-like criteria. COMPARISON: CT of the abdomen and pelvis from 06/17/2017. CT DOSE (mGy.cm): The estimated cumulative dose is 1251.78 mGy.cm. FINDINGS: Security Installation Sales Technician topogram: Unremarkable. Calcified and noncalcified atherosclerotic plaque throughout the abdominal aorta. Celiac artery origin widely patent. Superior mesenteric artery with calcified plaque at the origin though without significant stenosis. Single right renal artery widely patent. Prominent plaque resulting in approximately 50% stenosis of the single left renal artery approximately 1 to 2 cm from the origin. Inferior mesenteric artery patent. Small crescentic outpouching along the anterior aspect of the abdominal aorta immediately inferior to the takeoff of the MARISOL (series 2 images 264) with a single small fenestration. This may represent a dissection as this abnormality continues distally into the left common iliac artery. The true lumen of the left common iliac artery is completely occluded though the false lumen appears patent. The left internal iliac artery is opacified likely from retrograde filling as it appears to takeoff from the true lumen. The left external iliac artery is opacified likely via the false lumen and collateral flow from the femoral-femoral bypass graft. The bypass is widely patent. Right common, external, and internal iliac arteries patent though significant plaque results and multifocal narrowing (less than 50% stenosis). In the lower extremities the superficial femoral arteries demonstrate diffuse calcified and noncalcified atherosclerotic plaque resulting in diffuse narrowing (at least 50% stenosis) though the degree of calcified plaque makes quantification difficult. The right popliteal artery is patent though diffusely narrowed by plaque. 3 vessels of the right lower leg appear grossly patent though narrowing caliber. The left popliteal artery contains a stent which is occluded. The 3 vessels of the left lower leg are patent though narrowed likely supplied by collateral flow via small collaterals arising from the left SFA at the level of the abductor hiatus. Diffuse subcutaneous edema in the right lower leg. Round fluid collection in the left inguinal region likely represents a seroma or old hematoma. Lung bases demonstrate peribronchovascular consolidation in the right lower lobe and ocular wall thickening. Top normal heart size. Liver, gallbladder, pancreas, spleen, adrenal glands, and kidneys within normal limits for the phase of contrast. Bladder underdistended. Normal prostate. No bowel obstruction. Normal appendix. No lymphadenopathy. No free fluid or gas. Degenerative change of the spine. Mild osteopenia. Mild wedging deformity of T12. IMPRESSION: 1. Patent femoral-femoral bypass graft. 2. Occluded left popliteal stent graft. Left lower leg arteries supplied by collateral flow via small collaterals arising from the left SFA at the level of the abductor hiatus. 3. Diffuse left lower leg edema. 4. 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 This extends into the left common iliac artery, the true lumen of which is completely occluded. 5. Extensive ossified and noncalcified atherosclerotic plaque resulting in multifocal narrowing including the proximal left renal artery and extensively in the lower extremities further detailed above. Electronically signed by: Raj Mederos M.D. 07/10/2017 2:27 PM Dictated Date/Time: 07/10/2017 2:08 PM The status of this report is Signed. Draft = Not yet reviewed or approved by Radiologist. Signed = Reviewed and approved by Radiologist. <AttendingPhy>Modesto Ward MD, PhD</AttendingPhy> <FamilyPhy>Benja López M.D.</FamilyPhy> <PrimaryPhy>Benja López M.D.</PrimaryPhy> < UnitNumber>[id number]</UnitNumber> <VisitNumber>[id number]</VisitNumber> < PatientName>JAMARCUS PAYTON JR</PatientName> <DateOfBirth>1955</ DateOfBirth> <Location>[facility]</Location> <ServiceDate>07/09/17</ServiceDate> <MNE> ESINDI</MNE> <OrderingPhy>David Ac M.D.</OrderingPhy> <OrderingPhyMNE> f rep ord dr trujillo</OrderingPhyMNE> <DictatingPhyMNE>f rep dict dr trujillo</ DictatingPhyMNE> <CCListMNE>f rep ct mne</CCListMNE> <AdmittingPhyMNE>f pt admit dr trujillo</AdmittingPhyMNE> <AttendingPhyMNE>f pt attend dr trujillo</ AttendingPhyMNE> <ConsultingPhyMNE>f pt consult dr trujillo</ConsultingPhyMNE> <FamilyPhyMNE>f pt fam dr trujillo</FamilyPhyMNE> <OtherPhyMNE>f pt other dr trujillo</OtherPhyMNE> < PrimaryPhyMNE>f pt prim care dr trujillo</PrimaryPhyMNE> <ReferringPhyMNE>f pt referring dr trujillo</ReferringPhyMNE> Assessment & Plan Bilateral lower extremity cellulitis in patient with severe peripheral arterial disease, with worsening while on linezolid therapy. Agree with current antibiotic therapy with imipenem pending further culture results. Length of IV antibiotics will be determined by clinical response. Will follow.
[2017-07-10 23:00] VITALS: BP 108/71; PULSE 92; TEMP 36.4; O2SAT 97
[2017-07-11 00:40] VITALS: O2SAT 97
[2017-07-11] MEDS: IMIPENEM-CILASTATIN 250 MG in DEXTROSE 5% 100ML 100 ML IV SCH ×2 (05:57→12:45)
[2017-07-11] MEDS: AVODART: ORDER AWAITING ACTION SCH ×2 (08:00→16:00)
[2017-07-11] MEDS: BuPROPion SR 100 MG TABCR PO SCH (08:13)
[2017-07-11] MEDS: DIVALPROEX SODIUM 500 MG DELAY RELEASE TAB PO SCH (08:13)
[2017-07-11] MEDS: ASCORBIC ACID 500 MG TAB PO SCH ×2 (08:13→21:23)
[2017-07-11] MEDS: ASPIRIN 81 MG ECTAB PO SCH (08:13)
[2017-07-11] MEDS: METOPROLOL SUCC 25MG EXT REL TAB PO SCH (08:13)
[2017-07-11] MEDS: NICOTINE 21 MG/24 HR TDSY TD SCH (08:14)
[2017-07-11] MEDS: HEPARIN SOD 5000 UNIT/0.5 ML CARP SQ SCH ×2 (08:15→21:34)
[2017-07-11] MEDS: ARTIFICIAL TEARS OP OINT 3.5 GM TUBE OP SCH ×3 (08:15→21:29)
[2017-07-11] MEDS: ACETAMINOPHEN 325 MG TAB PO PRN ×2 (08:22→21:35)
[2017-07-11 08:30] VITALS: BP 135/76; PULSE 84; TEMP 36.5; O2SAT 95
--- NOTE | 2017-07-11 08:58 | Progress Note ---
Progress Note Date of Service Jul 11, 2017. Progress Note CTA showed a patent cross fem bypass without stenosis. Left SFA and popliteal are occluded. No intervention planned at this time unless ischemia develops. Lower leg well collateralized.
--- NOTE | 2017-07-11 15:34 | Progress Note ---
Subjective Date of Service: Jul 11, 2017. Subjective Pt evaluation today including: conversation w/ patient, physical exam, chart review, lab review, review of studies, conversation w/ senior application security consultant, review of inpatient medication list Report of bilateral lower feet possible more swelling and red, L>R Problem List Medical Problems: (1) Acute bronchitis Status: Acute (2) Allergic reaction Status: Acute (3) Anemia Status: Acute (4) Arterial insufficiency of lower extremity Status: Acute (5) Cellulitis of left lower leg Status: Acute (6) Cellulitis of leg, left Status: Acute (7) Failure of outpatient treatment Status: Acute (8) Hypertension Status: Acute (9) Hyponatremia Status: Acute (10) Hypotension Status: Acute (11) Left leg cellulitis Status: Acute (12) Left upper quadrant pain Status: Acute (13) Leg edema, left Status: Acute (14) Mass of upper lobe of left lung Status: Acute (15) Osteomyelitis Status: Acute (16) Sepsis Status: Acute (17) Shortness of breath Status: Acute (18) Thrush Status: Acute (19) Wound infection Status: Acute Review of Systems Constitutional: + weakness, + fatigue, No fever, No chills, No sweats, No weight loss, No problem reported Eyes: No worsening of vision, No eye pain, No redness, No discharge, No diplopia ENT: No hearing loss, No unusual epistaxis, No nasal symptoms, No sore throat, No tinnitus, No dental problems, No trouble swallowing Respiratory: No cough, No sputum, No wheezing, No shortness of breath, No dyspnea on exertion, No dyspnea at rest, No hemoptysis Cardiac: No chest pain, No orthopnea, No PND, No edema, No claudication, No palpitations Abdomen: No pain, No nausea, No vomiting, No diarrhea, No constipation Musculoskeletal: + see HPI, + swelling (L>R), No joint pain, No muscle pain, No calf pain Male : No dysuria, No urinary frequency, No incontinence, No nocturia more than once/night, No slowing stream, No hematuria Neurologic: No memory loss, No paralysis, No weakness, No numbness/tingling, No vertigo, No balance problems Psychiatric: No depression symptoms, No anhedonism, No anxiety, No insomnia, No substance abuse Heme: No abnormal bleeding/bruising, No clotting problems, No swollen lymph nodes, No night sweats Endo: No fatigue, No excessive thirst, No excessive urination Skin: + see HPI, + rash, No itch, No new/changing skin lesions, No color change , No bleeding Objective Vital Signs Date Time Temp Pulse Resp B/P (MAP) Pulse Ox O2 Delivery O2 Flow Rate FiO2 07/11/17 08:30 95 Room Air 07/11/17 08:30 36.5 84 18 135/76 (95) 95 Room Air 07/11/17 00:40 97 Room Air 07/10/17 23:00 36.4 92 18 108/71 (83) 97 Room Air 07/10/17 23:00 36.4 92 18 108/71 (83) 97 Room Air 07/10/17 16:45 36.7 90 18 123/62 (82) 97 Room Air 07/10/17 15:30 Room Air Physical Exam General Appearance: WD/WN, no apparent distress, + thin Eyes: normal inspection, PERRL, EOMI, sclerae normal ENT: normal ENT inspection, hearing grossly normal, pharynx normal Neck: supple, no adenopathy, thyroid normal, no JVD, no carotid bruits, trachea midline Respiratory/Chest: chest non-tender, lungs clear, normal breath sounds, no respiratory distress, no accessory muscle use Cardiovascular: regular rate, rhythm, no edema, no gallop, no JVD, no murmur Abdomen: normal bowel sounds, non tender, soft, no organomegaly, no pulsatile mass Extremities: normal range of motion, non-tender, normal capillary refill, pelvis stable, + pertinent finding (oc feet mild swelling and right upper, L>R , , L heel has wounds in dressing) Neurologic/Psychiatric: protection analyst II-XII nml as tested, no motor/sensory deficits, alert, normal mood/affect, oriented x 3 Skin: normal color, warm/dry, no rash Lymphatic: no adenopathy Laboratory Results Last 24 Hours Test 07/11/17 05:36 Magnesium Level 2.2 mg/dl Assessment and Plan 62-year-old male with meat is on 07/09/2017 because of cellulitis left lower extremity erythema history of PAD cellulitis left lower extremity Left heel wound, stable, Failed outpatient zyvoxx by mouth treatment Continue daptomycin and imipenem, infectious disease and wound care consult appreciated Follow-up culture and sensitivity Left popliteal artery occlusion, vascular surgeon input appreciated, Per vascular surgeon, CTA showed a patent cross fem bypass without stenosis. Left SFA and popliteal are occluded. No intervention planned at this time unless ischemia develops. Lower leg well collateralized. History of bipolar disease and depression , cont Wellbutrin and Depakote, etc. hypertension BPH Above condition stable continue current medication Drug abuse disorder, also quit smoking and offered help with nicotine patch Continue current antibiotics, follow-up culture and sensitivity follow up infectious disease input, may need PICC for long-term antibiotics DVT, GI prophylaxis covered Continued [facility] stay due to: multiple IV medications needed Discharge planning: home
[2017-07-11 16:00] VITALS: O2SAT 100
[2017-07-11 16:11] VITALS: BP 167/89; PULSE 91; TEMP 36.7; O2SAT 100
[2017-07-11] MEDS: IMIPENEM/CILASTATIN IV 500 MG in D5W 100ML IV SCH (18:13)
--- NOTE | 2017-07-11 20:31 | Infectious Disease Progress Nt ---
Progress Note Date of Service Jul 11, 2017. Subjective Pt evaluation today including: conversation w/ patient, physical exam, chart review, lab review, review of studies, conversation w/ revenue cycle consultant, review of inpatient medication list Patient notes slightly more swelling today. Erythema and not progressing. No fever. Tolerating antibiotic without apparent difficulty. All Other Systems: Reviewed and Negative Medications Current Inpatient Medications Medications (Trade) Dose Ordered Sig/Rinku Route Start Time Stop Time Status Last Admin Dose Admin Artificial Tears (Lacri-Lube Oph Oint) 1 appln TID OP 07/09/17 20:00 08/08/17 20:59 07/11/17 08:15 1 APPLN Ascorbic Acid (Vitamin C Tab) 500 mg BID PO 07/09/17 20:00 08/08/17 20:59 07/11/17 08:13 500 MG Aspirin (Ecotrin Tab) 81 mg QAM PO 07/10/17 08:00 08/09/17 08:59 07/11/17 08:13 81 MG Bupropion HCl (Wellbutrin-Sr Tab) 100 mg QAM PO 07/10/17 08:00 08/09/17 08:59 07/11/17 08:13 100 MG Divalproex Sodium (Depakote Delay Rel Tab) 500 mg QAM PO 07/10/17 08:00 08/09/17 08:59 07/11/17 08:13 500 MG Divalproex Sodium (Depakote Delay Rel Tab) 750 mg HS PO 07/09/17 21:00 08/08/17 20:59 07/10/17 20:27 750 MG Metoprolol Succinate (Toprol Xl Tab) 25 mg QAM PO 07/10/17 08:00 08/09/17 08:59 07/11/17 08:13 25 MG Quetiapine Fumarate (seroQUEL TAB) 100 mg HS PO 07/09/17 21:00 08/08/17 20:59 07/10/17 20:28 100 MG Tamsulosin HCl (Flomax Cap) 0.4 mg QPM PO 07/09/17 21:00 08/08/17 20:59 07/10/17 20:27 0.4 MG Tramadol HCl (Ultram Tab) 50 mg QPM PO 07/09/17 21:00 08/08/17 20:59 07/10/17 20:26 50 MG Miscellaneous Information (Order Awaiting Action) 1 ea QS N/A 07/10/17 00:00 08/09/17 00:00 Acetaminophen (Tylenol Tab) 650 mg Q4H PRN PO 07/09/17 17:00 08/08/17 16:59 07/11/17 08:22 650 MG Al Hydrox/Mg Hydrox/Simethicone (Maalox Max Susp) 15 ml Q4H PRN PO 07/09/17 17:00 08/08/17 16:59 Magnesium Hydroxide (Milk Of Magnesia Susp) 30 ml Q6H PRN PO 07/09/17 17:00 08/08/17 16:59 Ondansetron HCl (Zofran Inj) 4 mg Q6H PRN IV 07/09/17 17:00 08/08/17 16:59 Heparin Sodium (Porcine) (Heparin Sq 5000 Unit/0.5ml) 5,000 unit Q12 SQ 07/09/17 21:00 08/08/17 20:59 07/11/17 08:15 5,000 UNIT Nicotine (Nicoderm Cq 21MG Patch) 1 patch QAM TD 07/09/17 17:15 08/08/17 17:14 07/11/17 08:14 1 PATCH Miscellaneous (Remove Nicoderm Patch) 1 ea HS N/A 07/09/17 21:00 08/08/17 20:59 07/10/17 21:21 1 EA Ioversol (Optiray 320) 100 ml UD PRN IV 07/10/17 14:15 07/14/17 14:14 Imipenem/ Cilastatin Sodium 500 mg/Dextrose 110 ml @ 110 mls/hr Q6H IV 07/11/17 18:00 07/19/17 17:59 07/11/17 18:13 110 MLS/HR Daptomycin 500 mg/ Syringe 10 ml @ 5.75 mls/ min DAILY@1999 IV 07/11/17 20:00 07/19/17 19:59 Objective Vital Signs Date Time Temp Pulse Resp B/P (MAP) Pulse Ox O2 Delivery O2 Flow Rate FiO2 07/11/17 16:11 36.7 91 22 167/89 (115) 100 Room Air 07/11/17 16:00 100 Room Air 07/11/17 08:30 95 Room Air 07/11/17 08:30 36.5 84 18 135/76 (95) 95 Room Air 07/11/17 00:40 97 Room Air 07/10/17 23:00 36.4 92 18 108/71 (83) 97 Room Air 07/10/17 23:00 36.4 92 18 108/71 (83) 97 Room Air Physical Exam General Appearance: WD/WN, no apparent distress Eyes: normal inspection, EOMI, sclerae normal ENT: normal ENT inspection, pharynx normal Neck: supple, no adenopathy, thyroid normal, trachea midline Respiratory/Chest: chest non-tender, lungs clear, normal breath sounds, no respiratory distress Cardiovascular: regular rate, rhythm, no gallop, no murmur Abdomen: normal bowel sounds, non tender, soft, no organomegaly Extremities: + inflammation, + slow capillary refill, + swelling Neurologic/Psychiatric: alert, oriented x 3 Skin: normal color, no rash, + pertinent finding (Bilateral lower extremity erythema left greater than right ) Lymphatic: no adenopathy Laboratory Results Last 24 Hours Test 07/11/17 05:36 Magnesium Level 2.2 mg/dl Assessment and Plan Bilateral lower extremity cellulitis in patient with severe peripheral arterial disease, with worsening while on linezolid therapy. Agree with current antibiotic therapy with imipenem. Length of IV antibiotics will be determined by clinical response. Will follow.
[2017-07-11] MEDS: DAPTOmycin IV 500 MG in SYRINGE 0 ML IV SCH (21:19)
[2017-07-11] MEDS: DIVALPROEX SODIUM 250 MG DELAY REL TAB PO SCH (21:23)
[2017-07-11] MEDS: TAMSULOSIN HCL 0.4 MG CAP PO SCH (21:23)
[2017-07-11] MEDS: QUETIAPINE FUMARATE 100 MG TAB PO SCH (21:23)
[2017-07-11] MEDS: TRAMADOL HCL 50 MG TAB PO SCH (21:30)
[2017-07-11 23:28] VITALS: BP 93/63; PULSE 93; TEMP 36.7; O2SAT 97
[2017-07-12] MEDS: IMIPENEM/CILASTATIN IV 500 MG in D5W 100ML IV SCH ×5 (00:19→23:31)
[2017-07-12] MEDS: ACETAMINOPHEN 325 MG TAB PO PRN ×2 (06:13→23:33)
[2017-07-12] MEDS: AVODART: ORDER AWAITING ACTION SCH ×4 (07:05→23:33)
[2017-07-12 07:12] LABS: HEMATOCRIT 39.4 % (42-52); HEMOGLOBIN 13.4 g/dL (14.0-18.0); MEAN CELL VOLUME 92.1 fL (80-100); MEAN CORPUSCULAR HEMOGLOBIN 31.3 pg (25-34); MEAN PLATELET VOLUME 8.7 fL (7.4-10.4); PLATELET COUNT 256 K/uL (130-400); RED CELL DISTRIBUTION WIDTH CV 16.3 % (11.5-14.5); RED CELL DISTRIBUTION WIDTH SD 54.5 fL (36.4-46.3); WHITE BLOOD COUNT 4.63 K/uL (4.8-10.8)
[2017-07-12 07:42] LABS: CALCIUM 9.2 mg/dl (8.5-10.1); CREATININE 0.82 mg/dl (0.60-1.40); POTASSIUM 4.1 mmol/L (3.5-5.1)
[2017-07-12] MEDS: BuPROPion SR 100 MG TABCR PO SCH (08:15)
[2017-07-12] MEDS: ASCORBIC ACID 500 MG TAB PO SCH ×2 (08:15→21:32)
[2017-07-12] MEDS: ASPIRIN 81 MG ECTAB PO SCH (08:15)
[2017-07-12] MEDS: DIVALPROEX SODIUM 500 MG DELAY RELEASE TAB PO SCH (08:15)
[2017-07-12] MEDS: NICOTINE 21 MG/24 HR TDSY TD SCH (08:15)
[2017-07-12] MEDS: METOPROLOL SUCC 25MG EXT REL TAB PO SCH (08:15)
[2017-07-12] MEDS: ARTIFICIAL TEARS OP OINT 3.5 GM TUBE OP SCH ×3 (08:15→21:32)
[2017-07-12] MEDS: HEPARIN SOD 5000 UNIT/0.5 ML CARP SQ SCH ×2 (08:16→21:36)
[2017-07-12 08:20] VITALS: BP 131/83; PULSE 90; TEMP 36.5; O2SAT 98
--- NOTE | 2017-07-12 12:39 | Clinical Documentation Query ---
CLINICAL DOCUMENTATION QUERY Dr. SLADE, In your clinical opinion is this patient being managed for: ( ) Pressure ulcer of left heel, stage 4, POA ( ) Not Agree ( ) Other explanation of clinical findings (Please Explain) ( x ) Unable to determine (Please Define) ( ) Need to Discuss The medical record reflects the following clinical findings, treatment, and risk factors. Clinical Indicators: 62 yo male presenting with worsening edema and redness in LE. Also noted to have a "L heal wound." Treatment:WOCN consult, elizabeth and border dressing change 3 x wk, outpatient wound clinic care Risk Factors: severe PAD Please clarify and document your clinical opinion in the progress notes and discharge summary. Terms such as "probable", "suspected", "likely", "questionable", "possible", or "still to be ruled out" are acceptable. IF IN AGREEMENT, YOU MUST DOCUMENT ABOVE DIAGNOSTIC STATEMENT IN DAILY PROGRESS NOTES AND DISCHARGE SUMMARY. This document is not part of the patient's record. Thank You, Payton Lindo RN [phone]
[2017-07-12 15:30] VITALS: BP 167/79; PULSE 102; TEMP 36.8; O2SAT 98
--- NOTE | 2017-07-12 18:15 | Hospitalist Progress Note ---
Hospitalist Progress Note Date of Service Jul 12, 2017. Subjective Pt evaluation today including: conversation w/ patient Pt has pain in legs, no SOB, no CP. He is kelli reg diet. Has had right medial scapula pain x 3 months, worse with certain movements or positions, worse with using arms to push wheelchair around. Is requesting an xray be done. RN reports marijuana was found in the pt's room today and was confiscated. He says he still smokes Marijuana three times a day and 3-4 ciggs/day. Last EtOH beverage was about 6 days ago, usually drinks 2-3 RUm and Cokes several times per week Constitutional: No fever Respiratory: No shortness of breath Cardiovascular: No chest pain All Other Systems: Reviewed and Negative Objective Vital Signs Date Time Temp Pulse Resp B/P (MAP) Pulse Ox O2 Delivery O2 Flow Rate FiO2 07/12/17 15:30 36.8 102 18 167/79 (108) 98 Room Air 07/12/17 09:10 Room Air 07/12/17 08:20 36.5 90 17 131/83 (99) 98 07/12/17 00:00 Room Air 07/11/17 23:28 36.7 93 19 93/63 (73) 97 Room Air 07/11/17 20:00 Room Air Physical Exam General Appearance: WD/WN, no apparent distress Eyes: normal inspection, sclerae normal ENT: hearing grossly normal Neck: trachea midline Respiratory/Chest: no respiratory distress, no accessory muscle use, + wheezing (scattered exp wheezes, no carckles or rhonchi) Cardiovascular: regular rate, rhythm, no murmur, + pertinent finding (2+ pitting edema legs bilat, nonpalpable pedal pulses) Abdomen: normal bowel sounds, soft Extremities: + pertinent finding (edema as above, bilat erythema from feet to knees, +TTP diffusely, warm to the touch; Right shoulder with +TTP over upper back medial to rt scapula, no masses, no erythema, FROM of rt shoulder) Neurologic/Psychiatric: alert, normal mood/affect Skin: + pertinent finding (left heel with well-healed ulcer, superficial) Laboratory Results Last 24 Hours Test 07/12/17 06:54 White Blood Count 4.63 K/uL Red Blood Count 4.28 M/uL Hemoglobin 13.4 g/dL Hematocrit 39.4 % Mean Corpuscular Volume 92.1 fL Mean Corpuscular Hemoglobin 31.3 pg Mean Corpuscular Hemoglobin Concent 34.0 g/dl RDW Standard Deviation 54.5 fL RDW Coefficient of Variation 16.3 % Platelet Count 256 K/uL Mean Platelet Volume 8.7 fL Sodium Level 135 mmol/L Potassium Level 4.1 mmol/L Chloride Level 100 mmol/L Carbon Dioxide Level 28 mmol/L Anion Gap 7.0 mmol/L Blood Urea Nitrogen 10 mg/dl Creatinine 0.82 mg/dl Est Creatinine Clear Calc Drug Dose 97.3 ml/min Estimated GFR () 109.1 Estimated GFR (Non- 94.1 BUN/Creatinine Ratio 12.7 Random Glucose 87 mg/dl Calcium Level 9.2 mg/dl Assessment and Plan Pt is a 62-year-old male with a h/o severe PAD, smoking, COPD, HTN, BPH, bipolar d/o, EtOH abuse, admitted on 07/09/2017 because of bilateral LE cellulitis, L>R, with h/o left heel ulcer. SANTHOSH showed: Significantly diminished left ankle to brachial index of 0.64. Extensive atherosclerotic plaque within the left lower extremity with findings suggestive of a hemodynamically significant stenosis within the proximal left superficial femoral artery. Patent femoral to femoral bypass. Occlusion of the distal left superficial femoral artery and left popliteal artery with distal reconstitution. However, more distal flow is markedly dampened with monophasic waveform. CTA Pelvis with runoff showed: Patent femoral-femoral bypass graft. Occluded left popliteal stent graft. Left lower leg arteries supplied by collateral flow via small collaterals arising from the left SFA at the level of the abductor hiatus. Diffuse left lower leg edema. 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 This extends into the left common iliac artery, the true lumen of which is completely occluded. Extensive ossified and noncalcified atherosclerotic plaque resulting in multifocal narrowing including the proximal left renal artery and extensively in the lower extremities further detailed above. Peribronchovascular consolidation in the right lower lobe and bronchial wall thickening raises concern for pneumonia. Dedicated imaging of the chest could be considered. Bilateral LE cellulitis L>R, Severe PAD, healing left heel ulcer-stable to improved on exam. Remains afebrile, no leukocytosis. BCxs negative. ID following Failed outpatient zyvoxx by mouth treatment. Continue daptomycin and imipenem, infectious disease and wound care consult appreciated-length of course TBD Follow-up BCxs Severe PAD/Left popliteal artery occlusion- Vascular surgeon input appreciated, Per vascular surgeon, CTA showed a patent cross fem bypass without stenosis. Left SFA and popliteal are occluded. No intervention planned at this time unless ischemia develops. Lower leg well collateralized. History of bipolar disease and depression-stable - cont Wellbutrin and Depakote, etc. hypertension-stable -continue Toprol XL BPH -stable -continue FLomax Drug abuse disorder/EtOH abuse -counseled on smoking cessation -no evidence of EtOH withdrawal -nicotine patch Right shoulder pain-+TTP over scalene muscles, likely MSK in nature from wheelchair use -check shoulder xray -heating pad pain control DVT Proph-heparin SQ Dispo- to home when clinically improved, may need PICC with IV abx
--- NOTE | 2017-07-12 19:00 | DIAGNOSTIC IMAGING REPORT ---
R SHOULDER MIN 2 VIEWS ROUTINE HISTORY: 62 years-old Male rt scapular pain x 3 months acute right shoulder pain for 6 months COMPARISON: Chest radiograph 07/09/2017 TECHNIQUE: 3 views of the right shoulder FINDINGS: Moderate, acromioclavicular and mild glenohumeral degenerative changes. 5 mm linear ossification adjacent to the posterior facet greater tuberosity is noted. Mild spurring of the greater tuberosity may reflect sequela of subacromial impingement. No acute fracture or dislocation. Soft tissues are unremarkable. Opacity of the right perihilar lung is unchanged IMPRESSION: 1. No acute fracture or dislocation. 2. Degenerative changes as above. 3. Probable calcific tendinosis of the infraspinatus. The above report was generated using voice recognition software. It may contain grammatical, syntax or spelling errors. Electronically signed by: Murali Moore M.D. 07/12/2017 6:58 PM Dictated Date/Time: 07/12/2017 6:56 PM
[2017-07-12] MEDS: DAPTOmycin IV 500 MG in SYRINGE 0 ML IV SCH (20:35)
[2017-07-12] MEDS: QUETIAPINE FUMARATE 100 MG TAB PO SCH (21:33)
[2017-07-12] MEDS: DIVALPROEX SODIUM 250 MG DELAY REL TAB PO SCH (21:33)
[2017-07-12] MEDS: TAMSULOSIN HCL 0.4 MG CAP PO SCH (21:33)
[2017-07-12] MEDS: TRAMADOL HCL 50 MG TAB PO SCH (21:34)
[2017-07-12 23:07] VITALS: BP 130/84; PULSE 97; TEMP 36.7; O2SAT 98
[2017-07-13] MEDS: IMIPENEM/CILASTATIN IV 500 MG in D5W 100ML IV SCH ×4 (06:33→23:37)
[2017-07-13 08:00] VITALS: BP 111/72; PULSE 89; TEMP 36.6; O2SAT 98
[2017-07-13] MEDS: ARTIFICIAL TEARS OP OINT 3.5 GM TUBE OP SCH ×3 (08:51→21:00)
[2017-07-13] MEDS: METOPROLOL SUCC 25MG EXT REL TAB PO SCH (08:52)
[2017-07-13] MEDS: ASPIRIN 81 MG ECTAB PO SCH (08:52)
[2017-07-13] MEDS: DIVALPROEX SODIUM 500 MG DELAY RELEASE TAB PO SCH (08:52)
[2017-07-13] MEDS: ASCORBIC ACID 500 MG TAB PO SCH ×2 (08:52→20:00)
[2017-07-13] MEDS: BuPROPion SR 100 MG TABCR PO SCH (08:52)
[2017-07-13] MEDS: NICOTINE 21 MG/24 HR TDSY TD SCH (08:53)
[2017-07-13] MEDS: HEPARIN SOD 5000 UNIT/0.5 ML CARP SQ SCH ×2 (08:54→21:04)
[2017-07-13] MEDS: AVODART: ORDER AWAITING ACTION SCH ×3 (11:04→23:37)
[2017-07-13] MEDS: ACETAMINOPHEN 325 MG TAB PO PRN ×2 (14:05→22:33)
--- NOTE | 2017-07-13 15:18 | Hospitalist Progress Note ---
Hospitalist Progress Note Date of Service Jul 13, 2017. Subjective Pt evaluation today including: conversation w/ patient, conversation w/ retail client solutions consultant (ID) Pt says he still has pain in left leg, right leg feels fine. No other problems. Was out wheeling around the hospital for multiple hours this AM and was late getting back for his antibiotics-RN had to have security go searching for him. All Other Systems: Reviewed and Negative Objective Vital Signs Date Time Temp Pulse Resp B/P (MAP) Pulse Ox O2 Delivery O2 Flow Rate FiO2 07/13/17 10:28 Room Air 07/13/17 08:00 36.6 89 18 111/72 (85) 98 Room Air 07/13/17 00:00 Room Air 07/12/17 23:07 36.7 97 16 130/84 (99) 98 Room Air 07/12/17 16:00 Room Air 07/12/17 15:30 36.8 102 18 167/79 (108) 98 Room Air Physical Exam General Appearance: no apparent distress (sitting in wheelchair) Eyes: normal inspection, sclerae normal ENT: hearing grossly normal Neck: trachea midline Respiratory/Chest: no respiratory distress, no accessory muscle use, + wheezing (diffusely, with some scattered rhonchi) Cardiovascular: regular rate, rhythm, no murmur Abdomen: normal bowel sounds, soft Extremities: + swelling (left leg with 1+ pitting edema and erythema over left foot and senior care up left leg but much improved from yesterday , left heel with dressing in place, left dorsal toes with 2 small blood blisters, no drainage) Neurologic/Psychiatric: alert, normal mood/affect Skin: no rash Assessment and Plan Pt is a 62-year-old male with a h/o severe PAD, smoking, COPD, HTN, BPH, bipolar d/o, EtOH abuse, admitted on 07/09/2017 because of bilateral LE cellulitis, L>R, with h/o left heel ulcer. SANTHOSH showed: Significantly diminished left ankle to brachial index of 0.64. Extensive atherosclerotic plaque within the left lower extremity with findings suggestive of a hemodynamically significant stenosis within the proximal left superficial femoral artery. Patent femoral to femoral bypass. Occlusion of the distal left superficial femoral artery and left popliteal artery with distal reconstitution. However, more distal flow is markedly dampened with monophasic waveform. CTA Pelvis with runoff showed: Patent femoral-femoral bypass graft. Occluded left popliteal stent graft. Left lower leg arteries supplied by collateral flow via small collaterals arising from the left SFA at the level of the abductor hiatus. Diffuse left lower leg edema. 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 This extends into the left common iliac artery, the true lumen of which is completely occluded. Extensive ossified and noncalcified atherosclerotic plaque resulting in multifocal narrowing including the proximal left renal artery and extensively in the lower extremities further detailed above. Peribronchovascular consolidation in the right lower lobe and bronchial wall thickening raises concern for pneumonia. Dedicated imaging of the chest could be considered. Bilateral LE cellulitis L>R, Severe PAD, healing left heel ulcer-stable to improved on exam. Remains afebrile, no leukocytosis. BCxs negative. ID following Failed outpatient zyvoxx by mouth treatment. Continue daptomycin and imipenem, infectious disease and wound care consult appreciated-length of course discussed with ID today and will likely be 10-14 days of IV therapy, may consider switching to ertapenem alone Follow-up BCxs- NGTD -will need PICC line-will place tomorrow Severe PAD/Left popliteal artery occlusion- Vascular surgeon input appreciated, Per vascular surgeon, CTA showed a patent cross fem bypass without stenosis. Left SFA and popliteal are occluded. No intervention planned at this time unless ischemia develops. Lower leg well collateralized. History of bipolar disease and depression-stable - cont Wellbutrin and Depakote, etc. hypertension-stable -continue Toprol XL BPH -stable -continue FLomax Drug abuse disorder/EtOH abuse -counseled on smoking cessation -no evidence of EtOH withdrawal -nicotine patch Right shoulder pain-+TTP over scalene muscles, likely MSK in nature from wheelchair use, shoulder xray with tendonitis calcification, mild degenerative disease -heating pad pain control DVT Proph-heparin SQ Dispo- will need SNF placement for IV abx, not a good candidate to do abx at home, [facility] referral made
[2017-07-13 15:23] VITALS: BP 148/77; PULSE 106; TEMP 36.6; O2SAT 100
[2017-07-13] MEDS: DAPTOmycin IV 500 MG in SYRINGE 0 ML IV SCH (20:50)
[2017-07-13] MEDS: TAMSULOSIN HCL 0.4 MG CAP PO SCH (20:59)
[2017-07-13] MEDS: DIVALPROEX SODIUM 250 MG DELAY REL TAB PO SCH (20:59)
[2017-07-13] MEDS: QUETIAPINE FUMARATE 100 MG TAB PO SCH (20:59)
[2017-07-13] MEDS: TRAMADOL HCL 50 MG TAB PO SCH (21:00)
[2017-07-13 23:35] VITALS: BP 117/66; PULSE 99; TEMP 36.4; O2SAT 98
[2017-07-14] MEDS: IMIPENEM/CILASTATIN IV 500 MG in D5W 100ML IV SCH ×3 (05:43→18:55)
[2017-07-14 05:57] LABS: HEMATOCRIT 38.8 % (42-52); HEMOGLOBIN 13.6 g/dL (14.0-18.0); MEAN CELL VOLUME 90.7 fL (80-100); MEAN CORPUSCULAR HEMOGLOBIN 31.8 pg (25-34); MEAN CORPUSCULAR HGB CONC 35.1 g/dl (32-36); MEAN PLATELET VOLUME 8.8 fL (7.4-10.4); PLATELET COUNT 241 K/uL (130-400); RED CELL DISTRIBUTION WIDTH CV 16.5 % (11.5-14.5); RED CELL DISTRIBUTION WIDTH SD 54.5 fL (36.4-46.3); WHITE BLOOD COUNT 5.63 K/uL (4.8-10.8)
[2017-07-14 06:37] LABS: ALBUMIN 3.6 gm/dl (3.4-5.0); ALT/SGPT 30 U/L (12-78); AST/SGOT 29 U/L (15-37); BLOOD UREA NITROGEN 13 mg/dl (7-18); CALCIUM 9.3 mg/dl (8.5-10.1); CARBON DIOXIDE 29 mmol/L (21-32); CREATININE 0.71 mg/dl (0.60-1.40); GLUCOSE 79 mg/dl (70-99); POTASSIUM 3.8 mmol/L (3.5-5.1); SODIUM 132 mmol/L (136-145)
[2017-07-14 06:40] LABS: ALKALINE PHOSPHATASE 81 U/L (45-117); TOTAL PROTEIN 8.6 gm/dl (6.4-8.2)
[2017-07-14] MEDS: AVODART: ORDER AWAITING ACTION SCH ×2 (07:14→16:00)
[2017-07-14] MEDS: DIVALPROEX SODIUM 500 MG DELAY RELEASE TAB PO SCH (07:27)
[2017-07-14] MEDS: ASCORBIC ACID 500 MG TAB PO SCH ×2 (07:27→20:00)
[2017-07-14] MEDS: METOPROLOL SUCC 25MG EXT REL TAB PO SCH (07:27)
[2017-07-14] MEDS: ARTIFICIAL TEARS OP OINT 3.5 GM TUBE OP SCH ×3 (07:27→19:59)
[2017-07-14] MEDS: BuPROPion SR 100 MG TABCR PO SCH (07:27)
[2017-07-14] MEDS: ASPIRIN 81 MG ECTAB PO SCH (07:27)
[2017-07-14] MEDS: NICOTINE 21 MG/24 HR TDSY TD SCH (07:27)
[2017-07-14] MEDS: HEPARIN SOD 5000 UNIT/0.5 ML CARP SQ SCH ×2 (07:28→20:03)
[2017-07-14] MEDS: ACETAMINOPHEN 325 MG TAB PO PRN (07:35)
[2017-07-14 07:51] VITALS: BP 122/81; PULSE 85; TEMP 36.3; O2SAT 98
[2017-07-14 08:00] VITALS: O2SAT 98
--- NOTE | 2017-07-14 11:51 | Hospitalist Progress Note ---
Hospitalist Progress Note Date of Service Jul 14, 2017. Subjective Pt evaluation today including: conversation w/ patient Patient has no complaints. Feels his leg is getting better less painful. Wants to know if he can leave the hospital go to the music store to buy a harmonica today. All Other Systems: Reviewed and Negative Objective Vital Signs Date Time Temp Pulse Resp B/P (MAP) Pulse Ox O2 Delivery O2 Flow Rate FiO2 07/14/17 08:00 98 Room Air 07/14/17 07:51 36.3 85 16 122/81 (95) 98 Room Air 07/14/17 00:00 Room Air 07/13/17 23:35 36.4 99 20 117/66 (83) 98 Room Air 07/13/17 16:00 Room Air 07/13/17 15:23 36.6 106 18 148/77 (100) 100 Room Air Physical Exam General Appearance: no apparent distress (Sitting in wheelchair, very talkative and loud) Eyes: normal inspection, sclerae normal ENT: hearing grossly normal Neck: trachea midline Respiratory/Chest: no respiratory distress, no accessory muscle use, + rhonchi (Scattered), + wheezing (Diffuse) Cardiovascular: regular rate, rhythm, no murmur Abdomen: normal bowel sounds, non tender, soft Extremities: + pertinent finding (Left leg with significantly improved erythema , trace pitting edema in the leg, 1+ edema in the foot, left heel ulcer is well- healed without drainage) Neurologic/Psychiatric: alert, oriented x 3, + pertinent finding (Tangential, loud volume of language) Skin: warm/dry Laboratory Results Last 24 Hours Test 07/14/17 05:33 White Blood Count 5.63 K/uL Red Blood Count 4.28 M/uL Hemoglobin 13.6 g/dL Hematocrit 38.8 % Mean Corpuscular Volume 90.7 fL Mean Corpuscular Hemoglobin 31.8 pg Mean Corpuscular Hemoglobin Concent 35.1 g/dl RDW Standard Deviation 54.5 fL RDW Coefficient of Variation 16.5 % Platelet Count 241 K/uL Mean Platelet Volume 8.8 fL Sodium Level 132 mmol/L Potassium Level 3.8 mmol/L Chloride Level 97 mmol/L Carbon Dioxide Level 29 mmol/L Anion Gap 6.0 mmol/L Blood Urea Nitrogen 13 mg/dl Creatinine 0.71 mg/dl Est Creatinine Clear Calc Drug Dose 112.4 ml/min Estimated GFR () 115.7 Estimated GFR (Non- 99.9 BUN/Creatinine Ratio 18.9 Random Glucose 79 mg/dl Calcium Level 9.3 mg/dl Total Bilirubin 0.3 mg/dl Direct Bilirubin < 0.1 mg/dl Aspartate Amino Transf (AST/SGOT) 29 U/L Alanine Aminotransferase (ALT/SGPT) 30 U/L Alkaline Phosphatase 81 U/L Total Creatine Kinase 191 U/L Total Protein 8.6 gm/dl Albumin 3.6 gm/dl Assessment and Plan Pt is a 62-year-old male with a h/o severe PAD, smoking, COPD, HTN, BPH, bipolar d/o, EtOH abuse, admitted on 07/09/2017 because of bilateral LE cellulitis, L>R, with h/o left heel ulcer. SANTHOSH showed: Significantly diminished left ankle to brachial index of 0.64. Extensive atherosclerotic plaque within the left lower extremity with findings suggestive of a hemodynamically significant stenosis within the proximal left superficial femoral artery. Patent femoral to femoral bypass. Occlusion of the distal left superficial femoral artery and left popliteal artery with distal reconstitution. However, more distal flow is markedly dampened with monophasic waveform. CTA Pelvis with runoff showed: Patent femoral-femoral bypass graft. Occluded left popliteal stent graft. Left lower leg arteries supplied by collateral flow via small collaterals arising from the left SFA at the level of the abductor hiatus. Diffuse left lower leg edema. 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 This extends into the left common iliac artery, the true lumen of which is completely occluded. Extensive ossified and noncalcified atherosclerotic plaque resulting in multifocal narrowing including the proximal left renal artery and extensively in the lower extremities further detailed above. Peribronchovascular consolidation in the right lower lobe and bronchial wall thickening raises concern for pneumonia. Dedicated imaging of the chest could be considered. Bilateral LE cellulitis L>R, Severe PAD, healing left heel ulcer-unclear if related to pressure ulcer in the past but is healing-stable to improved on exam. Remains afebrile, no leukocytosis. BCxs negative. ID following Failed outpatient zyvoxx by mouth treatment. Leg is significantly improved in the last 2 days with much less erythema Continue daptomycin and imipenem, infectious disease and wound care consult appreciated-length of course discussed with ID and will likely be 14 days of IV therapy, will likely switch to ertapenem alone on discharge Follow-up BCxs- NGTD -PICC line consent obtained and will place today Severe PAD/Left popliteal artery occlusion- Vascular surgeon input appreciated, Per vascular surgeon, CTA showed a patent cross fem bypass without stenosis. Left SFA and popliteal are occluded. No intervention planned at this time unless ischemia develops. Lower leg well collateralized. -Continue aspirin daily History of bipolar disease and depression-stable - cont Wellbutrin and Depakote, and Seroquel at bedtime hypertension-stable -continue Toprol XL BPH -stable -continue FLomax Drug abuse disorder/EtOH abuse -counseled on smoking cessation -no evidence of EtOH withdrawal -nicotine patch Right shoulder pain-+TTP over scalene muscles, likely MSK in nature from wheelchair use, shoulder xray with tendonitis calcification, mild degenerative disease -heating pad as needed pain control DVT Proph-heparin SQ Dispo- will need SNF placement for IV abx, not a good candidate to do abx at home, [facility] referral made and is pending-could be discharged as soon as tomorrow
[2017-07-14 15:32] VITALS: BP 133/77; PULSE 90; TEMP 36.4; O2SAT 92
[2017-07-14 16:00] VITALS: O2SAT 92
--- NOTE | 2017-07-14 17:33 | DIAGNOSTIC IMAGING REPORT ---
SINGLE VIEW CHEST CLINICAL HISTORY: PICC placement. FINDINGS: An AP, portable, upright chest radiograph is compared to study dated 07/09/2017 and correlated with chest CT dated 06/17/2017. The examination is degraded by portable technique and apical lordotic positioning. A right-sided PICC line has been placed. The tip of the catheter projects over the SVC. The cardiomediastinal silhouette is unremarkable. There is atherosclerotic calcification of the thoracic aorta. Bilateral paramediastinal fibrotic change is similar to previous. No new foci of consolidative change are identified. No large pleural effusion or pneumothorax is seen. The bony thorax is grossly intact. IMPRESSION: 1. A right PICC line has been placed. The tip of the catheter projects over the SVC. 2. Paramediastinal fibrosis is similar to previous. Electronically signed by: Tomy Thompson M.D. 07/14/2017 5:32 PM Dictated Date/Time: 07/14/2017 5:29 PM
--- NOTE | 2017-07-14 18:21 | DIAGNOSTIC IMAGING REPORT ---
R ART DOP DUPLEX LWR EXT UNI CLINICAL HISTORY: 62 years-old Male presenting with cool, purple foot, known PAD, acute change. TECHNIQUE: Real-time grayscale and color and spectral Doppler ultrasound imaging of the bilateral lower extremity arteries was performed. Measurements calculated based on NASCET criteria. COMPARISON: None. FINDINGS: Right: Femoral-femoral bypass graft: Patent. Peak systolic velocity 155 cm/s and 190 cm/s at the anastomosis with the common femoral artery. Common femoral artery: Patent. Peak systolic velocity 200 cm/s upstream from the anastomosis and 177-180 cm/s downstream from the anastomosis. Superficial femoral artery: Patent. Peak systolic velocity 117 cm/s. Deep femoral artery: Patent. Peak systolic velocity 110 cm/s. Popliteal artery: Patent. Peak systolic velocity 46 cm/s. Posterior tibial artery: Patent. Peak systolic velocity 23 cm/s. Anterior tibial artery: Patent. Peak systolic velocity 40 cm/s. Peroneal artery: Patent. Peak systolic velocity 65 cm/s. Dorsalis pedis: Patent. Peak systolic velocity 23 cm/s. SANTHOSH Not performed. Reference ranges: Normal SANTHOSH 1.0-1.4; 0.9-0.99 borderline; less than 0.9 abnormal. IMPRESSION: 1. No hemodynamically significant stenosis seen within the lower extremity arteries. 2. Patent femoral-femoral bypass graft. Electronically signed by: Raj Mederos M.D. 07/14/2017 6:20 PM Dictated Date/Time: 07/14/2017 6:16 PM
[2017-07-14] MEDS: DIVALPROEX SODIUM 250 MG DELAY REL TAB PO SCH (20:00)
[2017-07-14] MEDS: TAMSULOSIN HCL 0.4 MG CAP PO SCH (20:00)
[2017-07-14] MEDS: TRAMADOL HCL 50 MG TAB PO SCH (20:06)
[2017-07-14] MEDS: DAPTOmycin IV 500 MG in SYRINGE 0 ML IV SCH (20:34)
[2017-07-14] MEDS: QUETIAPINE FUMARATE 100 MG TAB PO SCH (23:10)
[2017-07-15] VITALS: BP 117/70; PULSE 93; TEMP 36.9; O2SAT 92
[2017-07-15] MEDS: AVODART: ORDER AWAITING ACTION SCH ×2 (00:39→09:10)
[2017-07-15] MEDS: IMIPENEM/CILASTATIN IV 500 MG in D5W 100ML IV SCH ×3 (01:23→12:39)
[2017-07-15 07:58] VITALS: BP 128/78; PULSE 91; TEMP 36.4; O2SAT 98
[2017-07-15] MEDS: HEPARIN SOD 5000 UNIT/0.5 ML CARP SQ SCH (09:00)
[2017-07-15 09:09] LABS: BASO % 0.4 %; BASO ABS # 0.02 K/uL (0-0.2); EOS % 7.1 %; EOS ABS # 0.38 K/uL (0-0.5); HEMATOCRIT 38.3 % (42-52); HEMOGLOBIN 13.6 g/dL (14.0-18.0); IG# 0.02 K/uL (0.00-0.02); LYMPH % 12.9 %; LYMPH ABS # 0.69 K/uL (1.2-3.4); MEAN CELL VOLUME 90.5 fL (80-100); MEAN CORPUSCULAR HEMOGLOBIN 32.2 pg (25-34); MEAN CORPUSCULAR HGB CONC 35.5 g/dl (32-36); MEAN PLATELET VOLUME 9.1 fL (7.4-10.4); MONO % 14.6 %; MONO ABS # 0.78 K/uL (0.11-0.59); NEUT % 64.6 %; NEUT ABS # 3.47 K/uL (1.4-6.5); PLATELET COUNT 254 K/uL (130-400); RED CELL DISTRIBUTION WIDTH CV 16.3 % (11.5-14.5); RED CELL DISTRIBUTION WIDTH SD 54.2 fL (36.4-46.3); WHITE BLOOD COUNT 5.36 K/uL (4.8-10.8)
[2017-07-15] MEDS: METOPROLOL SUCC 25MG EXT REL TAB PO SCH (09:09)
[2017-07-15] MEDS: BuPROPion SR 100 MG TABCR PO SCH (09:09)
[2017-07-15] MEDS: ASPIRIN 81 MG ECTAB PO SCH (09:09)
[2017-07-15] MEDS: ASCORBIC ACID 500 MG TAB PO SCH (09:09)
[2017-07-15] MEDS: DIVALPROEX SODIUM 500 MG DELAY RELEASE TAB PO SCH (09:10)
[2017-07-15] MEDS: ARTIFICIAL TEARS OP OINT 3.5 GM TUBE OP SCH ×2 (09:11→12:40)
[2017-07-15] MEDS: NICOTINE 21 MG/24 HR TDSY TD SCH (09:11)
[2017-07-15 09:28] LABS: CALCIUM 9.6 mg/dl (8.5-10.1); CREATININE 0.74 mg/dl (0.60-1.40)
--- NOTE | 2017-07-15 09:44 | Progress Note ---
Progress Note Date of Service: Jul 15, 2017. Subjective 62 yo m with multiple medical problems, including severe PAD, seen in f/u today. Pt deneis any complaints. States his R foot/leg appeared "black" yesterday, but resolved. US performed yesterday demonstrated no changes from previous imaging. Problem List Medical Problems: (1) Acute bronchitis Status: Acute (2) Allergic reaction Status: Acute (3) Anemia Status: Acute (4) Arterial insufficiency of lower extremity Status: Acute (5) Cellulitis of left lower leg Status: Acute (6) Cellulitis of leg, left Status: Acute (7) Failure of outpatient treatment Status: Acute (8) Hypertension Status: Acute (9) Hyponatremia Status: Acute (10) Hypotension Status: Acute (11) Left leg cellulitis Status: Acute (12) Left upper quadrant pain Status: Acute (13) Leg edema, left Status: Acute (14) Mass of upper lobe of left lung Status: Acute (15) Osteomyelitis Status: Acute (16) Sepsis Status: Acute (17) Shortness of breath Status: Acute (18) Thrush Status: Acute (19) Wound infection Status: Acute Objective Vital Signs Vital Signs Past 12 Hours Date Time Temp Pulse Resp B/P (MAP) Pulse Ox O2 Delivery O2 Flow Rate FiO2 07/15/17 07:58 36.4 91 16 128/78 (95) 98 Room Air 07/15/17 00:00 Room Air 07/15/17 00:00 36.9 93 18 117/70 (86) 92 Room Air Exam CONST: A&O x3, NAD, chronically ill appearing male. EXT; BLE nonpalpable pulses. Femorals +2. LLE heel wound granulating. BLE with dependent rubor noted. brisk cap refill. Laboratory and Microbiology Results Past 24 Hours Test 07/15/17 08:58 Range/Units White Blood Count 5.36 4.8-10.8 K/uL Red Blood Count 4.23 4.7-6.1 M/uL Hemoglobin 13.6 14.0-18.0 g/dL Hematocrit 38.3 42-52 % Mean Corpuscular Volume 90.5 80-100 fL Mean Corpuscular Hemoglobin 32.2 25-34 pg Mean Corpuscular Hemoglobin Concent 35.5 32-36 g/dl Platelet Count 254 130-400 K/uL Mean Platelet Volume 9.1 7.4-10.4 fL Neutrophils (%) (Auto) 64.6 % Lymphocytes (%) (Auto) 12.9 % Monocytes (%) (Auto) 14.6 % Eosinophils (%) (Auto) 7.1 % Basophils (%) (Auto) 0.4 % Neutrophils # (Auto) 3.47 1.4-6.5 K/uL Lymphocytes # (Auto) 0.69 1.2-3.4 K/uL Monocytes # (Auto) 0.78 0.11-0.59 K/uL Eosinophils # (Auto) 0.38 0-0.5 K/uL Basophils # (Auto) 0.02 0-0.2 K/uL RDW Standard Deviation 54.2 36.4-46.3 fL RDW Coefficient of Variation 16.3 11.5-14.5 % Immature Granulocyte % (Auto) 0.4 % Immature Granulocyte # (Auto) 0.02 0.00-0.02 K/uL Sodium Level 135 136-145 mmol/L Potassium Level 4.0 3.5-5.1 mmol/L Chloride Level 103 98-107 mmol/L Carbon Dioxide Level 24 21-32 mmol/L Anion Gap 8.0 3-11 mmol/L Blood Urea Nitrogen 14 7-18 mg/dl Creatinine 0.74 0.60-1.40 mg/dl Est Creatinine Clear Calc Drug Dose 107.9 ml/min Estimated GFR () 113.8 Estimated GFR (Non- 98.2 BUN/Creatinine Ratio 18.3 10-20 Random Glucose 110 70-99 mg/dl Calcium Level 9.6 8.5-10.1 mg/dl ASSESSMENT adn PLAN: PAD Pt states he is scheduled in office with Dr Ac in November. Will keep that appt as scheduled. Pt advised to call with any other concerns. OK for d/ c to [facility]. please call if needed.
[2017-07-15 10:00] VITALS: O2SAT 98
[2017-07-15] MEDS ORDERED: TRAM-10 PO (14:44)
[2017-07-15] MEDS ORDERED: IMIP1INJ IV (14:45)
[2017-07-15] MEDS ORDERED: NICO21DI4 TD (14:45)
--- NOTE | 2017-07-15 14:59 | Discharge Instructions ---
Discharge Instructions Date of Service Jul 15, 2017. Admission Reason for Admission: Lower Extremity Cellulitis Discharge Discharge Diagnosis / Problem: Lower extremity cellulitis, Severe PAD Discharge Goals Goal(s): Improve disease control, Diagnostic testing, Therapeutic intervention Activity Recommendations Activity Level: Assistance Required Therapies: Physical Therapy, Occupational Therapy Weightbearing Status: Left weightbearing (as tolerated), Right weightbearing ( as tolerated) Shower/Bathe: no limitations . Additional Information Patient informed of condition: Yes Advance Directives: No DNR: No Level of Care: Skilled Communicable Disease: No Prognosis: Improving Oxygen at (LPM): N/A Swartz Catheter: No Instructions / Follow-Up Instructions / Follow-Up Bilateral LE cellulitis L>R, Severe PAD, healing left heel ulcer-unclear if related to pressure ulcer in the past but is healing-stable to improved on exam. Remains afebrile, no leukocytosis. BCxs negative. ID following Failed outpatient zyvoxx by mouth treatment. Leg is significantly improved with much less erythema Received IV daptomycin and imipenem x 7 dyas and now will transition to Imipenem alone for 7 more days, follow up with ID Dr. Waite in 1 week prior to discontinuation of PICC line -tramadol and tylenol for pain Severe PAD/Left popliteal artery occlusion- Vascular surgeon input appreciated, Per vascular surgeon, CTA showed a patent cross fem bypass without stenosis. Left SFA and popliteal are occluded. No intervention planned at this time unless ischemia develops. Lower leg well collateralized. -Continue aspirin daily History of bipolar disease and depression-stable - cont Wellbutrin and Depakote, and Seroquel at bedtime hypertension-stable -continue Toprol XL BPH -stable -continue FLomax, dutasteride Drug abuse disorder/EtOH abuse -counseled on smoking cessation -no evidence of EtOH withdrawal -nicotine patch Right shoulder pain-+TTP over scalene muscles, likely MSK in nature from wheelchair use, shoulder xray with tendonitis calcification, mild degenerative disease -heating pad as needed pain control DVT Proph-heparin SQ Dispo- to SNF today Current Hospital Diet Patient's current hospital diet: Low Sodium Diet (2gm Na) Discharge Diet Recommended Diet: Low Sodium Diet (2gm Na) Procedures Procedures Performed: Arterial Doppler LEs CTA pelvis and LEs Venous Doppler bilat LEs Shoulder xray-right CXR Foot xray-left Pending Studies Studies pending at discharge: no Physician Orders On Transfer Special Precautions: Fall risk Dressing Changes: Left heel ulcer daily dressing changes IV Therapy: Imipenem 500mg IV q6h x 7 days Vital Signs: Daily Weigh: Routine Additional Orders: F/u Infectious Disease within 1 week POLST Discussion: Not Applicable Laboratory Results Last 24 Hours Test 07/15/17 08:58 White Blood Count 5.36 K/uL Red Blood Count 4.23 M/uL Hemoglobin 13.6 g/dL Hematocrit 38.3 % Mean Corpuscular Volume 90.5 fL Mean Corpuscular Hemoglobin 32.2 pg Mean Corpuscular Hemoglobin Concent 35.5 g/dl Platelet Count 254 K/uL Mean Platelet Volume 9.1 fL Neutrophils (%) (Auto) 64.6 % Lymphocytes (%) (Auto) 12.9 % Monocytes (%) (Auto) 14.6 % Eosinophils (%) (Auto) 7.1 % Basophils (%) (Auto) 0.4 % Neutrophils # (Auto) 3.47 K/uL Lymphocytes # (Auto) 0.69 K/uL Monocytes # (Auto) 0.78 K/uL Eosinophils # (Auto) 0.38 K/uL Basophils # (Auto) 0.02 K/uL RDW Standard Deviation 54.2 fL RDW Coefficient of Variation 16.3 % Immature Granulocyte % (Auto) 0.4 % Immature Granulocyte # (Auto) 0.02 K/uL Sodium Level 135 mmol/L Potassium Level 4.0 mmol/L Chloride Level 103 mmol/L Carbon Dioxide Level 24 mmol/L Anion Gap 8.0 mmol/L Blood Urea Nitrogen 14 mg/dl Creatinine 0.74 mg/dl Est Creatinine Clear Calc Drug Dose 107.9 ml/min Estimated GFR () 113.8 Estimated GFR (Non- 98.2 BUN/Creatinine Ratio 18.3 Random Glucose 110 mg/dl Calcium Level 9.6 mg/dl Medical Emergencies . Who to Call and When: Medical Emergencies: If at any time you feel your situation is an emergency, please call 911 immediately. . Non-Emergent Contact Non-Emergency issues call your: Primary Care Provider Call Non-Emergent contact if: you have a fever, temperature is above 100.5, your pain is not controlled, your pain is worsening, your pain is unusual for you, your pain is concerning you, wound has increased drainage, wound has increased redness, wound has increased pain, you have any medication questions . . "Provider Documentation" section prepared by Kim Medina. . Core Measure Problem Core Measures: None
[2017-07-15 15:01] VITALS: BP 128/78; PULSE 91; TEMP 36.4; O2SAT 98
--- NOTE | 2017-07-15 15:10 | Infectious Disease Progress Nt ---
Progress Note Date of Service Jul 15, 2017. Subjective Pt evaluation today including: conversation w/ patient, physical exam, chart review, lab review, review of studies, conversation w/ planning consultant, review of inpatient medication list Offers no new complaints today. Pain in legs improving. Remains afebrile. All Other Systems: Reviewed and Negative Medications Current Inpatient Medications Medications (Trade) Dose Ordered Sig/Rinku Route Start Time Stop Time Status Last Admin Dose Admin Artificial Tears (Lacri-Lube Oph Oint) 1 appln TID OP 07/09/17 20:00 08/08/17 20:59 07/15/17 12:40 1 APPLN Ascorbic Acid (Vitamin C Tab) 500 mg BID PO 07/09/17 20:00 08/08/17 20:59 07/15/17 09:09 500 MG Aspirin (Ecotrin Tab) 81 mg QAM PO 07/10/17 08:00 08/09/17 08:59 07/15/17 09:09 81 MG Bupropion HCl (Wellbutrin-Sr Tab) 100 mg QAM PO 07/10/17 08:00 08/09/17 08:59 07/15/17 09:09 100 MG Divalproex Sodium (Depakote Delay Rel Tab) 500 mg QAM PO 07/10/17 08:00 08/09/17 08:59 07/15/17 09:10 500 MG Divalproex Sodium (Depakote Delay Rel Tab) 750 mg HS PO 07/09/17 21:00 08/08/17 20:59 07/14/17 20:00 750 MG Metoprolol Succinate (Toprol Xl Tab) 25 mg QAM PO 07/10/17 08:00 08/09/17 08:59 07/15/17 09:09 25 MG Quetiapine Fumarate (seroQUEL TAB) 100 mg HS PO 07/09/17 21:00 08/08/17 20:59 07/14/17 23:10 100 MG Tamsulosin HCl (Flomax Cap) 0.4 mg QPM PO 07/09/17 21:00 08/08/17 20:59 07/14/17 20:00 0.4 MG Tramadol HCl (Ultram Tab) 50 mg QPM PO 07/09/17 21:00 08/08/17 20:59 07/14/17 20:06 50 MG Miscellaneous Information (Order Awaiting Action) 1 ea QS N/A 07/10/17 00:00 08/09/17 00:00 Acetaminophen (Tylenol Tab) 650 mg Q4H PRN PO 07/09/17 17:00 08/08/17 16:59 07/14/17 07:35 650 MG Al Hydrox/Mg Hydrox/Simethicone (Maalox Max Susp) 15 ml Q4H PRN PO 07/09/17 17:00 08/08/17 16:59 Magnesium Hydroxide (Milk Of Magnesia Susp) 30 ml Q6H PRN PO 07/09/17 17:00 08/08/17 16:59 Ondansetron HCl (Zofran Inj) 4 mg Q6H PRN IV 07/09/17 17:00 08/08/17 16:59 Heparin Sodium (Porcine) (Heparin Sq 5000 Unit/0.5ml) 5,000 unit Q12 SQ 07/09/17 21:00 08/08/17 20:59 07/13/17 21:04 5,000 UNIT Nicotine (Nicoderm Cq 21MG Patch) 1 patch QAM TD 07/09/17 17:15 08/08/17 17:14 07/15/17 09:11 1 PATCH Miscellaneous (Remove Nicoderm Patch) 1 ea HS N/A 07/09/17 21:00 08/08/17 20:59 07/13/17 20:56 1 EA Imipenem/ Cilastatin Sodium 500 mg/Dextrose 110 ml @ 110 mls/hr Q6H IV 07/11/17 18:00 07/19/17 17:59 07/15/17 12:39 110 MLS/HR Daptomycin 500 mg/ Syringe 10 ml @ 5.75 mls/ min DAILY@2000 IV 07/11/17 20:00 07/19/17 19:59 07/14/17 20:34 5.75 MLS/MIN Objective Vital Signs Date Time Temp Pulse Resp B/P (MAP) Pulse Ox O2 Delivery O2 Flow Rate FiO2 07/15/17 10:00 98 Room Air 07/15/17 09:15 Room Air 07/15/17 07:58 36.4 91 16 128/78 (95) 98 Room Air 07/15/17 00:00 Room Air 07/15/17 00:00 36.9 93 18 117/70 (86) 92 Room Air 07/14/17 16:00 92 Room Air 07/14/17 15:32 36.4 90 18 133/77 (95) 92 Room Air Physical Exam General Appearance: WD/WN, no apparent distress Eyes: normal inspection, EOMI, sclerae normal ENT: normal ENT inspection, pharynx normal Neck: supple, no adenopathy, thyroid normal, trachea midline Respiratory/Chest: chest non-tender, lungs clear, normal breath sounds, no respiratory distress Cardiovascular: regular rate, rhythm, no gallop, no murmur Abdomen: normal bowel sounds, non tender, soft, no organomegaly Extremities: no calf tenderness, + inflammation, + swelling Neurologic/Psychiatric: alert, oriented x 3 Skin: normal color, no rash, + pertinent finding (Improving lower extremity cellulitis) Lymphatic: no adenopathy Laboratory Results Last 24 Hours Test 07/15/17 08:58 White Blood Count 5.36 K/uL Red Blood Count 4.23 M/uL Hemoglobin 13.6 g/dL Hematocrit 38.3 % Mean Corpuscular Volume 90.5 fL Mean Corpuscular Hemoglobin 32.2 pg Mean Corpuscular Hemoglobin Concent 35.5 g/dl Platelet Count 254 K/uL Mean Platelet Volume 9.1 fL Neutrophils (%) (Auto) 64.6 % Lymphocytes (%) (Auto) 12.9 % Monocytes (%) (Auto) 14.6 % Eosinophils (%) (Auto) 7.1 % Basophils (%) (Auto) 0.4 % Neutrophils # (Auto) 3.47 K/uL Lymphocytes # (Auto) 0.69 K/uL Monocytes # (Auto) 0.78 K/uL Eosinophils # (Auto) 0.38 K/uL Basophils # (Auto) 0.02 K/uL RDW Standard Deviation 54.2 fL RDW Coefficient of Variation 16.3 % Immature Granulocyte % (Auto) 0.4 % Immature Granulocyte # (Auto) 0.02 K/uL Sodium Level 135 mmol/L Potassium Level 4.0 mmol/L Chloride Level 103 mmol/L Carbon Dioxide Level 24 mmol/L Anion Gap 8.0 mmol/L Blood Urea Nitrogen 14 mg/dl Creatinine 0.74 mg/dl Est Creatinine Clear Calc Drug Dose 107.9 ml/min Estimated GFR () 113.8 Estimated GFR (Non- 98.2 BUN/Creatinine Ratio 18.3 Random Glucose 110 mg/dl Calcium Level 9.6 mg/dl Assessment and Plan Bilateral lower extremity cellulitis in patient with severe peripheral arterial disease, with worsening while on linezolid therapy. Agree with current antibiotic therapy with imipenem. Length of IV antibiotics will be determined by clinical response, likely in the range of 2 weeks.
== END 2017-07-15 16:59 | DRG 300 ==
LOC: C.EDB 12:17 → C.4E 16:52 → EDBEDREQSVC 17:05 → ENRESERV 17:13
PROVIDERS: ADMIT Internal Medicine; ATTEND Family Medicine
DX: I70.244 Atherosclerosis of native arteries of left leg with ulceration of heel and midfoot (principal); L03.116 Cellulitis of left lower limb; F31.9 Bipolar disorder, unspecified; Z85.118 Personal history of other malignant neoplasm of bronchus and lung; Z83.3 Family history of diabetes mellitus; N40.0 Benign prostatic hyperplasia without lower urinary tract symptoms; F17.200 Nicotine dependence, unspecified, uncomplicated; Z79.82 Long term (current) use of aspirin; Z88.1 Allergy status to other antibiotic agents; Z92.3 Personal history of irradiation; I10 Essential (primary) hypertension; J20.9 Acute bronchitis, unspecified; F12.20 Cannabis dependence, uncomplicated

== ENCOUNTER → 2017-07-20 | Outpatient (CLI) | payer OTHER ==
[~2017-07-20] MED LIST changes: -BISA10SU38 PR; +CEFA500C2 PO; -CYAN10005 PO; +IMIP1INJ IV; +MELATAB2 PO; -METO25TA3 PO; +METO25TA4 PO; -MULTTAB63 PO; +NICO21DI4 TD; +vancomycin IV.
[2017-07-20 09:58] LABS: BASO % 0.5 %; BASO ABS # 0.03 K/uL (0-0.2); EOS % 5.7 %; EOS ABS # 0.32 K/uL (0-0.5); HEMATOCRIT 34.9 % (42-52); HEMOGLOBIN 12.2 g/dL (14.0-18.0); IG# 0.01 K/uL (0.00-0.02); LYMPH % 18.5 %; LYMPH ABS # 1.03 K/uL (1.2-3.4); MEAN CELL VOLUME 91.1 fL (80-100); MEAN CORPUSCULAR HEMOGLOBIN 31.9 pg (25-34); MEAN PLATELET VOLUME 9.5 fL (7.4-10.4); MONO % 19.2 %; MONO ABS # 1.07 K/uL (0.11-0.59); NEUT % 55.9 %; NEUT ABS # 3.12 K/uL (1.4-6.5); PLATELET COUNT 342 K/uL (130-400); RED CELL DISTRIBUTION WIDTH CV 15.9 % (11.5-14.5); RED CELL DISTRIBUTION WIDTH SD 53.7 fL (36.4-46.3); WHITE BLOOD COUNT 5.58 K/uL (4.8-10.8)
[2017-07-20 10:07] LABS: BLOOD UREA NITROGEN 12 mg/dl (7-18); GLUCOSE 83 mg/dl (70-99)
[2017-07-20 10:08] LABS: ALBUMIN 3.1 gm/dl (3.4-5.0); ALT/SGPT 20 U/L (12-78); AST/SGOT 15 U/L (15-37); CALCIUM 8.9 mg/dl (8.5-10.1); CARBON DIOXIDE 28 mmol/L (21-32); SODIUM 133 mmol/L (136-145)
[2017-07-20 10:10] LABS: ALKALINE PHOSPHATASE 66 U/L (45-117); TOTAL PROTEIN 7.2 gm/dl (6.4-8.2)
== END ==
LOC: C.LABCC 09:28
PROVIDERS: ATTEND Internal Medicine
DX: L03.90 Cellulitis, unspecified (principal)

== ENCOUNTER → 2017-07-25 | Outpatient (CLI) | payer OTHER ==
[~2017-07-25] MED LIST changes: -CEFA500C2 PO; -LINE1TAB6 PO; -vancomycin IV.
[2017-07-25 13:50] LABS: BLOOD UREA NITROGEN 14 mg/dl (7-18); CALCIUM 8.9 mg/dl (8.5-10.1); CARBON DIOXIDE 26 mmol/L (21-32); CREATININE 0.57 mg/dl (0.60-1.40); GLUCOSE 103 mg/dl (70-99); POTASSIUM 3.9 mmol/L (3.5-5.1); SODIUM 135 mmol/L (136-145)
== END | disposition home or self-care (01) ==
LOC: C.LABCC 11:49
PROVIDERS: ATTEND Internal Medicine
DX: E87.1 Hypo-osmolality and hyponatremia (principal)

== ENCOUNTER → 2017-07-27 | Outpatient (CLI) | payer OTHER ==
[~2017-07-27] MED LIST changes: +vancomycin IV.
[2017-07-27 08:20] LABS: BASO % 0.6 %; BASO ABS # 0.03 K/uL (0-0.2); EOS % 9.5 %; EOS ABS # 0.47 K/uL (0-0.5); HEMATOCRIT 33.8 % (42-52); HEMOGLOBIN 11.8 g/dL (14.0-18.0); IG# 0.02 K/uL (0.00-0.02); LYMPH ABS # 1.19 K/uL (1.2-3.4); MEAN CELL VOLUME 88.3 fL (80-100); MEAN CORPUSCULAR HEMOGLOBIN 30.8 pg (25-34); MEAN CORPUSCULAR HGB CONC 34.9 g/dl (32-36); MEAN PLATELET VOLUME 9.5 fL (7.4-10.4); MONO % 11.7 %; MONO ABS # 0.58 K/uL (0.11-0.59); NEUT % 53.8 %; NEUT ABS # 2.66 K/uL (1.4-6.5); PLATELET COUNT 302 K/uL (130-400); RED CELL DISTRIBUTION WIDTH CV 15.1 % (11.5-14.5); RED CELL DISTRIBUTION WIDTH SD 48.6 fL (36.4-46.3); WHITE BLOOD COUNT 4.95 K/uL (4.8-10.8)
[2017-07-27 08:34] LABS: ALT/SGPT 18 U/L (12-78); AST/SGOT 17 U/L (15-37); BLOOD UREA NITROGEN 12 mg/dl (7-18); CALCIUM 8.7 mg/dl (8.5-10.1); CARBON DIOXIDE 29 mmol/L (21-32); CREATININE 0.64 mg/dl (0.60-1.40); GLUCOSE 87 mg/dl (70-99); SODIUM 133 mmol/L (136-145)
[2017-07-27 08:39] LABS: ALKALINE PHOSPHATASE 61 U/L (45-117); TOTAL PROTEIN 6.7 gm/dl (6.4-8.2)
== END ==
LOC: C.LABCC 07:46
PROVIDERS: ATTEND Internal Medicine
DX: L03.90 Cellulitis, unspecified (principal)

== ENCOUNTER → 2017-07-29 | Outpatient (CLI) | payer OTHER ==
[2017-07-29 08:26] LABS: BASO % 0.4 %; BASO ABS # 0.02 K/uL (0-0.2); EOS % 6.9 %; EOS ABS # 0.31 K/uL (0-0.5); HEMATOCRIT 34.6 % (42-52); HEMOGLOBIN 12.1 g/dL (14.0-18.0); IG# 0.02 K/uL (0.00-0.02); LYMPH % 18.4 %; LYMPH ABS # 0.83 K/uL (1.2-3.4); MEAN CELL VOLUME 88.3 fL (80-100); MEAN CORPUSCULAR HEMOGLOBIN 30.9 pg (25-34); MEAN PLATELET VOLUME 9.8 fL (7.4-10.4); MONO % 15.6 %; NEUT % 58.3 %; NEUT ABS # 2.62 K/uL (1.4-6.5); PLATELET COUNT 293 K/uL (130-400); RED CELL DISTRIBUTION WIDTH CV 15.1 % (11.5-14.5)
[2017-07-29 08:56] LABS: BLOOD UREA NITROGEN 12 mg/dl (7-18); CALCIUM 9.1 mg/dl (8.5-10.1); CARBON DIOXIDE 28 mmol/L (21-32); CREATININE 0.68 mg/dl (0.60-1.40); GLUCOSE 90 mg/dl (70-99); POTASSIUM 4.4 mmol/L (3.5-5.1); SODIUM 133 mmol/L (136-145)
== END ==
LOC: C.LABCC 07:52
PROVIDERS: ATTEND Internal Medicine
DX: L03.90 Cellulitis, unspecified (principal)

== ENCOUNTER → 2017-08-01 | Outpatient (CLI) | payer OTHER ==
[2017-08-01 10:04] LABS: BASO % 0.4 %; BASO ABS # 0.02 K/uL (0-0.2); EOS % 6.7 %; EOS ABS # 0.36 K/uL (0-0.5); HEMATOCRIT 34.7 % (42-52); HEMOGLOBIN 12.1 g/dL (14.0-18.0); IG# 0.03 K/uL (0.00-0.02); LYMPH ABS # 1.08 K/uL (1.2-3.4); MEAN CELL VOLUME 88.5 fL (80-100); MEAN CORPUSCULAR HEMOGLOBIN 30.9 pg (25-34); MEAN CORPUSCULAR HGB CONC 34.9 g/dl (32-36); MEAN PLATELET VOLUME 9.5 fL (7.4-10.4); MONO % 13.1 %; MONO ABS # 0.71 K/uL (0.11-0.59); NEUT % 59.2 %; PLATELET COUNT 270 K/uL (130-400); RED CELL DISTRIBUTION WIDTH CV 15.1 % (11.5-14.5); RED CELL DISTRIBUTION WIDTH SD 48.3 fL (36.4-46.3)
[2017-08-01 10:14] LABS: ALT/SGPT 17 U/L (12-78); AST/SGOT 18 U/L (15-37); BLOOD UREA NITROGEN 10 mg/dl (7-18); CALCIUM 8.7 mg/dl (8.5-10.1); CARBON DIOXIDE 28 mmol/L (21-32); CREATININE 0.73 mg/dl (0.60-1.40); GLUCOSE 79 mg/dl (70-99); POTASSIUM 4.3 mmol/L (3.5-5.1); SODIUM 133 mmol/L (136-145)
[2017-08-01 10:17] LABS: ALKALINE PHOSPHATASE 63 U/L (45-117); TOTAL PROTEIN 6.8 gm/dl (6.4-8.2)
== END ==
LOC: C.LABCC 09:18
PROVIDERS: ATTEND Internal Medicine
DX: L03.115 Cellulitis of right lower limb (principal); L03.116 Cellulitis of left lower limb

== ENCOUNTER → 2017-08-08 | Outpatient (CLI) | payer OTHER ==
[~2017-08-08] MED LIST changes: -IMIP1INJ IV
[2017-08-08 08:40] LABS: BASO % 0.5 %; BASO ABS # 0.03 K/uL (0-0.2); EOS % 5.2 %; EOS ABS # 0.31 K/uL (0-0.5); HEMATOCRIT 34.5 % (42-52); HEMOGLOBIN 11.9 g/dL (14.0-18.0); IG# 0.02 K/uL (0.00-0.02); LYMPH % 18.7 %; LYMPH ABS # 1.11 K/uL (1.2-3.4); MEAN CELL VOLUME 88.2 fL (80-100); MEAN CORPUSCULAR HEMOGLOBIN 30.4 pg (25-34); MEAN CORPUSCULAR HGB CONC 34.5 g/dl (32-36); MEAN PLATELET VOLUME 9.5 fL (7.4-10.4); MONO % 15.3 %; MONO ABS # 0.91 K/uL (0.11-0.59); NEUT ABS # 3.57 K/uL (1.4-6.5); PLATELET COUNT 237 K/uL (130-400); RED CELL DISTRIBUTION WIDTH CV 14.8 % (11.5-14.5); RED CELL DISTRIBUTION WIDTH SD 47.5 fL (36.4-46.3); WHITE BLOOD COUNT 5.95 K/uL (4.8-10.8)
[2017-08-08 08:42] LABS: ALBUMIN 2.7 gm/dl (3.4-5.0); ALT/SGPT 14 U/L (12-78); AST/SGOT 14 U/L (15-37); BLOOD UREA NITROGEN 11 mg/dl (7-18); CALCIUM 8.6 mg/dl (8.5-10.1); CARBON DIOXIDE 29 mmol/L (21-32); CREATININE 0.83 mg/dl (0.60-1.40); GLUCOSE 84 mg/dl (70-99); POTASSIUM 4.2 mmol/L (3.5-5.1); SODIUM 135 mmol/L (136-145)
[2017-08-08 08:44] LABS: ALKALINE PHOSPHATASE 57 U/L (45-117); TOTAL PROTEIN 6.5 gm/dl (6.4-8.2)
== END ==
LOC: C.LABCC 08:17
PROVIDERS: ATTEND Internal Medicine
DX: T14.8XXA Other injury of unspecified body region, initial encounter (principal); X58.XXXA Exposure to other specified factors, initial encounter

== ENCOUNTER → 2017-08-15 | Outpatient (CLI) | payer OTHER ==
[2017-08-15 09:09] LABS: BASO % 0.2 %; BASO ABS # 0.01 K/uL (0-0.2); EOS % 6.2 %; EOS ABS # 0.34 K/uL (0-0.5); HEMATOCRIT 34.2 % (42-52); HEMOGLOBIN 12.2 g/dL (14.0-18.0); IG# 0.02 K/uL (0.00-0.02); LYMPH % 17.2 %; LYMPH ABS # 0.94 K/uL (1.2-3.4); MEAN CELL VOLUME 87.5 fL (80-100); MEAN CORPUSCULAR HEMOGLOBIN 31.2 pg (25-34); MEAN CORPUSCULAR HGB CONC 35.7 g/dl (32-36); MEAN PLATELET VOLUME 9.6 fL (7.4-10.4); MONO % 17.4 %; MONO ABS # 0.95 K/uL (0.11-0.59); NEUT % 58.6 %; NEUT ABS # 3.21 K/uL (1.4-6.5); PLATELET COUNT 236 K/uL (130-400); RED CELL DISTRIBUTION WIDTH CV 14.8 % (11.5-14.5); RED CELL DISTRIBUTION WIDTH SD 46.9 fL (36.4-46.3); WHITE BLOOD COUNT 5.47 K/uL (4.8-10.8)
[2017-08-15 09:22] LABS: ALBUMIN 2.8 gm/dl (3.4-5.0); ALT/SGPT 15 U/L (12-78); BLOOD UREA NITROGEN 13 mg/dl (7-18); CARBON DIOXIDE 28 mmol/L (21-32); CREATININE 0.77 mg/dl (0.60-1.40); GLUCOSE 80 mg/dl (70-99); POTASSIUM 4.3 mmol/L (3.5-5.1); SODIUM 130 mmol/L (136-145)
[2017-08-15 09:24] LABS: ALKALINE PHOSPHATASE 53 U/L (45-117); AST/SGOT 18 U/L (15-37); TOTAL PROTEIN 6.6 gm/dl (6.4-8.2)
== END ==
LOC: C.LABCC 08:45
PROVIDERS: ATTEND Internal Medicine
DX: B99.9 Unspecified infectious disease (principal); Z79.899 Other long term (current) drug therapy

== ENCOUNTER → 2017-10-25 | Outpatient (CLI) | payer OTHER ==
[~2017-10-25] MED LIST changes: +LINE1TAB6 PO; +OPTIRAY 320 IV PRN; -vancomycin IV.
--- NOTE | 2017-10-25 11:54 | DIAGNOSTIC IMAGING REPORT ---
CT SCAN OF THE CHEST WITH IV CONTRAST CLINICAL HISTORY: Follow-up lung cancer. COMPARISON STUDY: Chest CT scans dated 06/17/2017 and 01/18/2016. TECHNIQUE: Following the IV administration of 94 cc of Optiray 320, CT scan of the thorax was performed from the thoracic inlet to the upper abdomen. Images are reviewed in the axial, sagittal, and coronal planes. IV contrast was administered without complication. A dose lowering technique was utilized adhering to the principles of ALARA. CT DOSE: 1566.93 mGycm FINDINGS: Thyroid: Imaged portions of the thyroid gland are normal in size and attenuation. Thoracic aorta: There is advanced atherosclerotic calcification of the thoracic aorta, which is normal in caliber and demonstrates standard 3-vessel arch anatomy. No dissection is seen. Pulmonary vasculature: The pulmonary trunk is normal in caliber. There are no filling defects identified in the central pulmonary vessels to indicate pulmonary embolus. Note that this examination was not protocoled for evaluation of the pulmonary arteries. Heart: The heart is mildly enlarged and without pericardial effusion. The coronary arteries are densely calcified. Lungs and pleural spaces: Emphysematous change is observed. There is a trace left pleural effusion. The trachea and central airways are clear. Fibrotic change in the anterior left upper lobe and the paramediastinal right lung is similar in appearance to prior studies and likely represents post radiation change. A 1.5 cm left upper lobe nodule is seen within this region of fibrosis on image #92 cm. No airspace consolidation is seen typical for pneumonia. No new pulmonary lesion is identified. Mediastinum: There is no mediastinal lymphadenopathy. Yaa: Clear. Axillae: There is no axillary lymphadenopathy. Upper abdomen: There is evidence of hepatic steatosis. No adrenal lesion is seen. A tiny hiatal hernia is identified. Skeletal structures: The skeletal structures are osteopenic. No lytic or blastic bony lesions are seen. There are subacute/healing left anterior second and third rib fractures. IMPRESSION: 1. There has been no significant change from 06/17/2017. There is no evidence of progressive metastatic disease in the thorax. 2. Fibrotic change in the left upper lobe and the paramediastinal right lung is similar to previous and likely related to post radiation change. 3. The left upper lung spiculated nodule is located within the left upper lobe fibrosis and measures approximately 1.5 cm. This is not well assessed on today's examination. 4. A small left pleural effusion has minimally increased in size from previous. 5. No airspace consolidation is identified typical for pneumonia. 6. Cardiomegaly and emphysema. 7. Hepatic steatosis. 8. Additional findings as above. Electronically signed by: Tomy Thompson M.D. 10/25/2017 11:53 AM Dictated Date/Time: 10/25/2017 11:42 AM
--- NOTE | 2017-10-25 12:05 | DIAGNOSTIC IMAGING REPORT ---
ABDOMEN AND PELVIS CT WITH IV AND ORAL CONTRAST CT DOSE: HISTORY: Lung cancer. TECHNIQUE: Multiaxial CT images of the abdomen and pelvis were performed following the use of intravenous and oral contrast. A dose lowering technique was utilized adhering to the principles of ALARA. COMPARISON STUDY: Abdomen and pelvis CTA 07/10/2017. FINDINGS: Trace left pleural effusion, unchanged. No suspicious lytic or blastic osseous lesions. No suspicious lytic or blastic osseous lesions. The liver, spleen, adrenal glands, and pancreas are unremarkable. Stable 8 mm hypodense lesion within the left kidney. This is too small to characterize but favors a cyst. The right kidney enhances normally. No hydronephrosis. Focal nodular area of enhancement within the gallbladder fundus suggestive of adenomyomatosis. No retroperitoneal lymphadenopathy. 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 This results in high-grade stenosis throughout the left common iliac artery. The femoral femoral bypass graft is patent. Normal bladder. No bowel wall thickening or obstruction. Moderate to advanced calcified plaque within the abdominal aorta and mesenteric/renal arteries. Normal appendix. IMPRESSION: 1. No evidence for metastatic disease within the abdomen or pelvis. 2. Trace left pleural effusion, unchanged. 3. 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 The femoral-femoral bypass graft remains patent. Electronically signed by: Patricio Burger M.D. 10/25/2017 12:04 PM Dictated Date/Time: 10/25/2017 11:51 AM
== END | disposition home or self-care (01) ==
LOC: C.CTS 10:45
PROVIDERS: ATTEND Nurse Practitioner Family
DX: C34.11 Malignant neoplasm of upper lobe, right bronchus or lung (principal); I71.02 Dissection of abdominal aorta; Z95.828 Presence of other vascular implants and grafts; J84.10 Pulmonary fibrosis, unspecified; J90 Pleural effusion, not elsewhere classified; I51.7 Cardiomegaly; J43.9 Emphysema, unspecified; K76.0 Fatty (change of) liver, not elsewhere classified

== ENCOUNTER 2018-01-02 14:35 | Emergency (ER) | payer OTHER ==
[~2018-01-02] VITALS: Ht 174 cm; Wt 70.2 kg
[2018-01-02 14:35] VITALS: Ht 174 cm; Wt 70.2 kg
[~2018-01-02 14:35] MED LIST changes: -ACET-1256 PO; -ASCA500 PO; -ASPI81TA28 PO; +DIVA-36 PO; -DIVA500T5 PO; +MELO-83 PO; -NICO21DI4 TD; -OPTIRAY 320 IV PRN; -QUET1TAB30 PO; +SRQ/50 PO; -WLLSR100 PO
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
[2018-01-02] MEDS ORDERED: ASPI81TA28 PO (15:23)
[2018-01-02] MEDS ORDERED: ASCA500 PO (15:23)
[2018-01-02] MEDS ORDERED: ACET-1256 PO (15:23)
[2018-01-02] MEDS ORDERED: NICOTINE 21 MG/24 HR TDSY ONE (15:56)
[2018-01-02 16:11] LABS: BASO % 0.2 %; BASO ABS # 0.02 K/uL (0-0.2); EOS % 0.2 %; EOS ABS # 0.02 K/uL (0-0.5); HEMATOCRIT 39.5 % (42-52); IG# 0.01 K/uL (0.00-0.02); LYMPH % 8.6 %; LYMPH ABS # 0.71 K/uL (1.2-3.4); MEAN CELL VOLUME 89.4 fL (80-100); MEAN CORPUSCULAR HEMOGLOBIN 31.7 pg (25-34); MEAN CORPUSCULAR HGB CONC 35.4 g/dl (32-36); MEAN PLATELET VOLUME 9.4 fL (7.4-10.4); MONO % 8.1 %; MONO ABS # 0.67 K/uL (0.11-0.59); NEUT % 82.8 %; NEUT ABS # 6.87 K/uL (1.4-6.5); PLATELET COUNT 306 K/uL (130-400); RED CELL DISTRIBUTION WIDTH CV 14.8 % (11.5-14.5); RED CELL DISTRIBUTION WIDTH SD 48.1 fL (36.4-46.3)
[2018-01-02] MEDS ORDERED: TPRSR/25 PO (16:33)
[2018-01-02] MEDS ORDERED: DPKSR/500 PO (16:33)
[2018-01-02] MEDS ORDERED: TRAM-10 PO (16:33)
[2018-01-02] MEDS ORDERED: DUTA1CAP17 PO (16:33)
[2018-01-02] MEDS ORDERED: DIVA250T93 PO (16:33)
[2018-01-02] MEDS ORDERED: FLM4 PO (16:33)
[2018-01-02] MEDS ORDERED: LINE1TAB2 PO (16:33)
[2018-01-02] MEDS ORDERED: QUET1TAB34 PO (16:33)
[2018-01-02 16:44] LABS: ALBUMIN 3.7 gm/dl (3.4-5.0); CREATININE 0.92 mg/dl (0.60-1.40); TOTAL PROTEIN 8.3 gm/dl (6.4-8.2)
[2018-01-02] MEDS ORDERED: TRAMADOL HCL 50 MG TAB PO PRN (19:15)
[2018-01-02] MEDS ORDERED: WLLSR100 PO (19:44)
[2018-01-02] MEDS ORDERED: DIVALPROEX SODIUM 250 MG DELAY REL TAB PO SCH (21:00)
[2018-01-02] MEDS ORDERED: QUETIAPINE FUMARATE 100 MG TAB PO SCH (21:00)
[2018-01-02] MEDS ORDERED: TAMSULOSIN HCL 0.4 MG CAP PO SCH (21:00)
[2018-01-02] MEDS: ASCORBIC ACID 500 MG TAB PO SCH (21:07)
[2018-01-02] MEDS: LINEZOLID 600 MG TAB PO SCH (21:08)
--- NOTE | 2018-01-02 23:08 | DIAGNOSTIC IMAGING REPORT ---
CHEST ONE VIEW PORTABLE HISTORY: hallucinations COMPARISON: Chest CT 10/25/2017. FINDINGS: There are low lung volumes. No pneumothorax. No pleural effusions. The heart is top normal in size. Perihilar interstitial thickening has progressed. There is also a focal right suprahilar density which is in a left perihilar density. This is similar to the recent chest CT. IMPRESSION: 1. Paramediastinal densities persist and may be due to post radiation fibrotic change. 2. Low lung volumes. 3. Slight progression of the perihilar interstitial thickening which could represent mild congestive change. Electronically signed by: Patricio Burger M.D. 01/02/2018 11:07 PM Dictated Date/Time: 01/02/2018 11:04 PM
[2018-01-03] MEDS ORDERED: ALBUT/IPRATROP 3MG/0.5MG NEB 3 ML VIAL INH STA (03:10)
[2018-01-03] MEDS ORDERED: PIPERACILLIN/TAZOBACTAM 4.5 GM/100ML D5W IV STA (03:16)
--- NOTE | 2018-01-03 03:28 | EMERGENCY ROOM VISIT NOTE ---
ED Visit Note First contact with patient: 22:39 The patient was taken in signout from Dr. Vergara at the change of shift. Please see that note for details. The patient was pending psychiatric bed placement and further management. No psychiatric beds are currently available in the local area. The patient was evaluated and was wheezing. He notes previously taking nebulizer treatments but is currently not using them. He was given a DuoNeb. The patient is on linezolid for a cellulitis in the left foot. On examination he was having significant redness develop on the right foot extending up into the right lower leg. He noted this was getting worse. The left foot was somewhat erythematous as well. The patient had an IV established. Blood cultures were done. He was given a dose of IV Zosyn as well. I did discuss this with [address] [place] [address]. The will consult from a psychiatric standpoint if he is admitted medically. I discussed the case with Dr. Nguyen of the hospitalist service. The patient was evaluated for further management in the ER. After medicine consultation, Dr. Nguyen felt that the patient did not have any acute medical requirements warranting admission. She felt that continued outpatient management and psychiatric placement was most appropriate. Case management was notified. The bed search was still in progress. The patient was signed out to Dr. Bailey at the change of shift.
--- NOTE | 2018-01-03 04:25 | Medical Consult ---
Consultation Date of Consultation: Jan 03, 2018. Attending Physician: Dr. Pino Reason for Consultation: Possible hospital admission History of Present Illness Mr. Luther is a 62yo male with history of Bipolar disorder, COPD, PAD, EtOH abuse and substance abuse who was brought in by the police for abnormal behavior. Per the patient, he was at home at his apartment and became angry because his roommates allow their cats to urinate on the rug which causes him difficulty in breathing. He was brought in by police for need of a mental health evaluation. He was reportedly acting aggressively. His apartment was found to be in disarray and he was speaking to people that were not there and experiencing some auditory hallucinations. Patient was seen by case management in ER and placement was attempted at [facility] as well as the [facility] however no beds available in those facilities. Patient denies fevers, chills, sweats, chest pain, palpitations, shortness of breath, cough or wheeze. He denies worsening pain, redness or swelling of his feet. Denies purulent discharge from the foot. He states that his legs have been red "for years". He is taking Linezolid for presumed cellulitis. No additional complaints. ER Course: Zosyn 4.5 gm DuoNeb Nicotine Past Medical/Surgical History Past Medical History: Peripheral Arterial Disease COPD Hypertension BPH EtOH abuse Left heel ulcer Past Surgical History: Left heel debridement with skin grafts x 2 Family History Diabetes mellitus FHx: gallbladder disease FHx: heart disease Social History Smoking Status: Light Tobacco Smoker Smokeless Tobacco Use: No Alcohol Use: occasionally Drug Use: none Marital Status: single Housing Status: lives alone Occupation Status: retired Allergies Coded Allergies: Ciprofloxacin (Verified Allergy, Intermediate, RASH, 12/25/17) Vancomycin (Verified Allergy, Intermediate, RASH, 12/25/17) Home Medications Patient unable to list his home medications. Admits to taking an antibiotic for his legs. List is from prior discharge Acetaminophen (Tylenol) 500 Mg Tab 500 MG PO Q6H PRN for Pain or Fever NOT TO EXCEED 3 GRAMS PER 24 HOURS. Artificial Tears Oph Oint (Lacri-Lube Sop Oph Oint) Oint 0.25-0.5 INCH OP TID TO THE AFFECTED EYE UP TO QID PRN Ascorbic Acid (Vitamin C) 500 Mg Tab 500 MG PO BID Aspirin (Aspirin Ec) 81 Mg Tab 81 MG PO QAM Bupropion HCl (Bupropion HCl Sr) 100 Mg Tabcr 100 MG PO QAM Divalproex Sodium (Depakote Delay Rel) 500 Mg Tab 500 MG PO QAM Divalproex Sodium (Depakote) 500 Mg Tab 750 MG PO HS Dutasteride (Avodart) 0.5 Mg Cap 0.5 MG PO QAM Melatonin (Melatonin Maximum Strengt) 5 Mg Tab 1 TAB PO HS Metoprolol Succinate (Toprol Xl) 25 Mg Tabcr 25 MG PO QAM Quetiapine Fumarate (Seroquel) 25 Mg Tab 100 MG PO HS Tamsulosin Hcl (Flomax) 0.4 Mg Cap 0.4 MG PO QPM Tramadol (Ultram) 50 Mg Tab 50 MG PO QPM for 7 Days, #7 TAB (This prescription has been renewed) Current Inpatient Medications Current Inpatient Medications Medications (Trade) Dose Ordered Sig/Rinku Route Start Time Stop Time Status Last Admin Dose Admin Ascorbic Acid (Vitamin C Tab) 500 mg BID PO 01/02/18 21:00 02/01/18 20:59 01/02/18 21:07 500 MG Aspirin (Ecotrin Tab) 81 mg QAM PO 01/03/18 09:00 02/02/18 08:59 Bupropion HCl (Wellbutrin-Sr Tab) 100 mg QAM PO 01/03/18 09:00 02/02/18 08:59 Divalproex Sodium (Depakote Delay Rel Tab) 125 mg HS PO 01/02/18 21:00 02/01/18 20:59 01/02/18 20:45 125 MG Divalproex Sodium (Depakote Extended Rel Tab) 500 mg DAILY PO 01/03/18 09:00 02/02/18 08:59 Linezolid (Zyvox Tab) 600 mg BID PO 01/02/18 21:00 01/12/18 20:59 01/02/18 21:08 600 MG Metoprolol Succinate (Toprol Xl Tab) 25 mg DAILY PO 01/03/18 09:00 02/02/18 08:59 Quetiapine Fumarate (seroQUEL TAB) 100 mg HS PO 01/02/18 21:00 02/01/18 20:59 01/02/18 21:07 100 MG Tamsulosin HCl (Flomax Cap) 0.4 mg HS PO 01/02/18 21:00 02/01/18 20:59 01/02/18 20:45 0.4 MG Tramadol HCl (Ultram Tab) 50 mg ONE PRN PO 01/02/18 19:15 02/01/18 19:14 01/02/18 20:46 50 MG Review of Systems Constitutional: No fever, No chills, No sweats Eyes: No worsening of vision ENT: No sore throat Respiratory: No cough, No sputum, No wheezing, No shortness of breath Cardiovascular: No chest pain, No palpitations Abdomen: No pain Musculoskeletal: No muscle pain Genitourinary - Male: No dysuria Neurologic: No weakness Endocrine: No fatigue Integumentary: No rash Physical Exam Date Time Temp Pulse Resp B/P (MAP) Pulse Ox O2 Delivery O2 Flow Rate FiO2 01/02/18 23:18 73 16 126/70 99 Room Air 01/02/18 17:42 93 18 203/84 98 Room Air 01/02/18 14:35 37.4 97 18 145/69 98 Room Air General: patient sitting up in bed, receiving neb treatment, AA&O x 4 Skin: no rashes. Deep left heel eschar with no bleeding, drainage or evidence of infection, skin of bilateral LEs red, hairless, smooth and shiny, cool to the touch HEENT: NC/AT, PERRL, EOMI, anicteric sclera, conjunctiva without injection, nares patent, moist mucus membranes, no oropharyngeal lesions, neck supple, trachea midline, no thyromegaly, no LAD Heart: +S1/S2, regular, no m/r/g Lungs: equal air entry bilaterally, no rales/rhonchi/wheezes Abdomen: soft, NT/ND, no masses/organomegaly/ascites Extremities: bilateral LEs cool, red, shiny, hairless, diminished PT pulses 1+ bilaterally Neuro: AA&O x 4, speech clear but pressured, tangential though process, becomes easily frustrated when asked to repeat himself, patient moving extremities with 5/5 strength. Laboratory Results Last 24 Hours Test 01/02/18 15:59 01/02/18 16:00 01/02/18 16:50 Sodium Level 133 mmol/L Potassium Level 4.0 mmol/L Chloride Level 99 mmol/L Carbon Dioxide Level 27 mmol/L Anion Gap 7.0 mmol/L Blood Urea Nitrogen 10 mg/dl Creatinine 0.92 mg/dl Est Creatinine Clear Calc Drug Dose 80.9 ml/min Estimated GFR () 102.2 Estimated GFR (Non- 88.2 BUN/Creatinine Ratio 10.4 Random Glucose 139 mg/dl Calcium Level 9.0 mg/dl Total Bilirubin 0.4 mg/dl Direct Bilirubin 0.1 mg/dl Aspartate Amino Transf (AST/SGOT) 24 U/L Alanine Aminotransferase (ALT/SGPT) 24 U/L Alkaline Phosphatase 77 U/L Total Protein 8.3 gm/dl Albumin 3.7 gm/dl Thyroid Stimulating Hormone (TSH) 1.900 uIu/ml Salicylates Level 1.8 mg/dl Acetaminophen Level < 2 ug/ml White Blood Count 8.30 K/uL Red Blood Count 4.42 M/uL Hemoglobin 14.0 g/dL Hematocrit 39.5 % Mean Corpuscular Volume 89.4 fL Mean Corpuscular Hemoglobin 31.7 pg Mean Corpuscular Hemoglobin Concent 35.4 g/dl Platelet Count 306 K/uL Mean Platelet Volume 9.4 fL Neutrophils (%) (Auto) 82.8 % Lymphocytes (%) (Auto) 8.6 % Monocytes (%) (Auto) 8.1 % Eosinophils (%) (Auto) 0.2 % Basophils (%) (Auto) 0.2 % Neutrophils # (Auto) 6.87 K/uL Lymphocytes # (Auto) 0.71 K/uL Monocytes # (Auto) 0.67 K/uL Eosinophils # (Auto) 0.02 K/uL Basophils # (Auto) 0.02 K/uL RDW Standard Deviation 48.1 fL RDW Coefficient of Variation 14.8 % Immature Granulocyte % (Auto) 0.1 % Immature Granulocyte # (Auto) 0.01 K/uL Ethyl Alcohol mg/dL < 3.0 mg/dl Urine Color YELLOW Urine Appearance CLEAR Urine pH 7.0 Urine Specific [place] 1.012 Urine Protein NEG Urine Glucose (UA) NEG Urine Ketones TRACE Urine Occult Blood NEG Urine Nitrite NEG Urine Bilirubin NEG Urine Urobilinogen NEG Urine Leukocyte Esterase NEG Urine Opiates Screen NEG Urine Methadone, Qualitative NEG Urine Barbiturates NEG Urine Phencyclidine (PCP) Level NEG Ur Amphetamine/Methamphetamine NEG MDMA (Ecstasy) Screen POS Urine Benzodiazepines Screen NEG Urine Cocaine Metabolite NEG Urine Marijuana (THC) NEG Assessment & Plan 62yo male with history of Bipolar disorder, PAD, COPD, HTN and substance abuse ( EtOH, tobacco and marijuana although patient denies recent use) presenting for mental health evaluation. Patient with pressured speech, tangential thought process, agitation and auditory hallucinations concern for acute manic episode in patient with history of Bipolar disorder and possible medication non- adherance. 1. Bilateral LE redness - cellulitis vs PVD - bilateral extremities with rubor but are cool to the touch, skin is smooth, shiny and hairless, diminished pulses. Findings are more consistent with severe PAD rather than cellulitis. He does report taking Linezolid currently for cellulitis. Patient is afebrile, hemodynamically stable, no leukocytosis, no evidence of systemic infection or failure of outpatient therapy. -Recommend completing outpatient course of Linezolid 2. COPD - patient with no respiratory distress at present. Lungs CTA on exam. No complaints of progressive SOB/Cough or wheeze. Patient received neb treatment in ER -Continue home medication regimen -Albuterol PRN increase in SOB/wheeze 3. BiPolar - patient to be placed in a psychiatric facility when bed becomes available 4. HTN - presently normotensive -Continue to monitor Patient does not meet criteria for admission to a medical floor at this time. We will continue to monitor patient's medical status. Thank you for this consult.
--- NOTE | 2018-01-03 06:24 | DIAGNOSTIC IMAGING REPORT ---
CT HEAD WITHOUT CONTRAST (CT) CLINICAL HISTORY: hallucinations CHANGE IN MENTAL STATUS COMPARISON STUDY: 08/02/2016 TECHNIQUE: Axial CT of the brain is performed from the vertex to the skull base. IV contrast was not administered for this examination. A dose lowering technique was utilized adhering to the principles of ALARA. CT DOSE: 537.48 mGy.cm FINDINGS: No intra or extra-axial mass lesions are visualized. There is no CT evidence of acute cortical infarction. There is no evidence of midline shift. There is no acute hemorrhage. No calvarial fractures are visualized. There are patchy white matter hypodensities likely on a small vessel basis. There is no evidence of pathologic ventricular dilatation. There is no evidence of acute sinusitis IMPRESSION: No acute intracranial findings Electronically signed by: Rhys Dove M.D. 01/03/2018 6:23 AM Dictated Date/Time: 01/03/2018 6:22 AM
--- NOTE | 2018-01-03 07:25 | EMERGENCY ROOM VISIT NOTE ---
ED Visit Note First contact with patient: 03:32 62 yr old male on 201 voluntary psychiatric evaluation for auditory hallucinations. Evaluated by Dr Vergara, phi Pino as well as Hospitalist Dr Nguyen due to cellulitis. [place] he is medically stable and will continue Linezolid abx. Signed out to me awaiting placement. No issues overnight and signed out to Dr Flor awaiting further attempts at placement.
[2018-01-03] MEDS ORDERED: METOPROLOL SUCC 25MG EXT REL TAB PO SCH (09:00)
[2018-01-03] MEDS ORDERED: BuPROPion SR 100 MG TABCR PO SCH (09:00)
[2018-01-03] MEDS ORDERED: ASPIRIN 81 MG ECTAB PO SCH (09:00)
[2018-01-03] MEDS ORDERED: DIVALPROEX 500 MG EXTENDED RELEASE TAB PO SCH (09:00)
[2018-01-03] MEDS: ASCORBIC ACID 500 MG TAB PO SCH (09:07)
[2018-01-03] MEDS: LINEZOLID 600 MG TAB PO SCH (09:35)
--- NOTE | 2018-01-03 15:24 | EMERGENCY ROOM VISIT NOTE ---
ED Visit Note First contact with patient: 07:26 The patient was accepted at [facility]. He will be transported there with secure transport
[2018-01-03 17:24] VITALS: BP 135/88; PULSE 88; TEMP 37.4; O2SAT 100
== END 2018-01-03 17:26 ==
LOC: EDBD 14:35 → C.EDA 14:37
DX: Z00.8 Encounter for other general examination (principal); R44.0 Auditory hallucinations; F31.9 Bipolar disorder, unspecified; L03.116 Cellulitis of left lower limb; Z79.899 Other long term (current) drug therapy; F17.200 Nicotine dependence, unspecified, uncomplicated; Z88.1 Allergy status to other antibiotic agents; Z83.3 Family history of diabetes mellitus; Z79.82 Long term (current) use of aspirin

== ENCOUNTER 2020-07-16 12:32 | Inpatient (IN) ==
[2020-07-16] MEDS ORDERED: methylPREDNISolone 125 MG/2 ML VIAL IV STA (12:57)
[2020-07-16] MEDS ORDERED: ALBUT/IPRATROP 3MG/0.5MG NEB 3 ML VIAL NEB STA (12:57)
[2020-07-16 13:08] LABS: Basophils # (auto) 0.01 K/uL (0-0.2); Basophils % (auto) 0.4 %; Hematocrit (blood only) 30.4 % (42-52); Hemoglobin 10.5 g/dL (14.0-18.0); Lymphocytes # (auto) 0.31 K/uL (1.2-3.4); Lymphocytes % (auto) 11.5 %; Mean Corpuscular Hemoglobin 29.4 pg (25-34); Mean Corpuscular Hgb Conc 34.5 g/dL (32-36); Mean Corpuscular Volume 85.2 fL (80-100); Monocytes # (auto) 0.46 K/uL (0.11-0.59); Monocytes % (auto) 17.1 %; Neutrophils # (auto) 1.91 K/uL (1.4-6.5); Platelet Count 204 K/uL (130-400); RDW Standard Deviation 50.1 fL (36.4-46.3); Red Blood Count 3.57 M/uL (4.7-6.1); White Blood Count 2.69 K/uL (4.8-10.8)
--- NOTE | 2020-07-16 13:09 | Electrocardiogram Report ---
Test Reason : Blood Pressure : / mmHG Vent. Rate : 112 BPM Atrial Rate : 112 BPM P-R Int : 132 ms QRS Dur : 084 ms QT Int : 318 ms P-R-T Axes : 032 031 050 degrees QTc Int : 434 ms Sinus tachycardia Otherwise normal ECG When compared with ECG of 16-SEP-2018 19:58, No significant change was found Confirmed by Roberth Solis ([id number]) on 07/16/2020 1:08:41 PM Referred By: Confirmed By:Roberth Solis
--- NOTE | 2020-07-16 13:25 | XRay Report ---
SINGLE VIEW CHEST CLINICAL HISTORY: Sepsis. FINDINGS: An AP, portable, upright chest radiograph is compared to study dated 06/20/2020 and correlat ed with chest CT dated 03/24/2020. The examination is degraded by portable technique and apical lordo tic positioning. The cardiomediastinal silhouette is unremarkable, noting atherosclerotic calcificati on of the thoracic aorta. There is prominence of the pulmonary vasculature. Bilateral paramediastinal fibrosis is similar to previous. There is a layering left pleural effusion with associated left basi lar consolidation. There is a small pleural effusion on the right with right basilar consolidation. N o pneumothorax is seen. The skeletal structures are osteopenic. There are chronic left-sided rib frac tures. IMPRESSION: 1. Left larger than right pleural effusions with bibasilar consolidation. This could represent atelec tasis versus an infectious/inflammatory pneumonitis. Clinical correlation will be required. 2. There is prominence of the pulmonary vasculature. Correlate clinically for evidence of congestive change. 3. Chronic parenchymal changes and paramediastinal fibrosis are similar to previous. Electronically signed by: Tomy Thompson M.D. 07/16/2020 1:24 PM
[2020-07-16 14:07] LABS: Base Excess VBG -0.7 mEq/L; HCO3 VBG 26 mmol/L; PCO2 VBG 48 mmHg (38-50); PO2 VBG 24 mmHg; pH VBG 7.34 (7.36-7.41)
[2020-07-16 14:19] LABS: Oxygen Saturation VBG < 60.0 %
[2020-07-16 14:24] LABS: Partial Thromboplastin Ratio 0.9; Partial Thromboplastin Time 24.8 Seconds (21.0-31.0); Prothrombin Time 10.4 Seconds (9.0-12.0)
[2020-07-16 14:27] LABS: Alanine Aminotransferase 14 U/L (12-78); Albumin Level 2.7 gm/dl (3.4-5.0); Aspartate Aminotransferase 28 U/L (15-37); BUN Creatinine Ratio 18.9 (10-20); Blood Urea Nitrogen 23 mg/dl (7-18); Calcium 9.2 mg/dl (8.5-10.1); Carbon Dioxide 23 mmol/L (21-32); Chloride 103 mmol/L (98-107); Creatinine Clr Calc Pharmacy 65.2 ml/min; Est GFR (African American) 69.8; Est GFR (Non-African American) 60.2; Glucose 87 mg/dl (70-99); Magnesium 2.1 mg/dl (1.8-2.4); Potassium 4.6 mmol/L (3.5-5.1); Sodium 135 mmol/L (136-145)
[2020-07-16 14:32] LABS: Albumin Globulin Ratio 0.5 (0.9-2); Alkaline Phosphatase 52 U/L (45-117); Bilirubin,Total 0.6 mg/dl (0.2-1); Globulin 5.3 gm/dl (2.5-4.0); Troponin I < 0.015 ng/ml (0-0.045)
--- NOTE | 2020-07-16 14:33 | Emergency Department Note ---
History of Present Illness General Chief complaint: Shortness of Breath/Dyspnea Time Seen by Provider: 07/16/20 12:46 History of Present Illness Provider complaint: Shortness of breath Onset (ago): week(s) 1 Location: chest Maximum Pain Intensity: 6 Current Pain Intensity: 6 Quality: + stabbing and + sharp Relieved By: + none Exacerbated By: + other (Inspiration and cough) Associated symptoms: + chest pain, + cough and + shortness of breath; no fever/chills 65-year-old male with history of COPD not on home oxygen at baseline presents emergency department for shortness of breath. Patient reports chest pain as well as shortness of breath for last week. He describes the chest pain as sharp and stabbing and worsened when he takes a deep breath or coughs. Patient reports no hemoptysis. Patient does report he was recently exposed to someone who is COVID-19 positive. He describes no loss of taste or smell. No nausea or vomiting. He does report congestion. He does report diarrhea. Home Medications Medication Instructions Recorded Confirmed Type acetaminophen 500 mg capsule 500 mg PO Q6H PRN 02/02/18 07/16/20 History ascorbic acid (vitamin C) 500 mg 500 mg PO BID cap 02/02/18 07/16/20 History capsule melatonin 5 mg capsule 5 mg PO .qhs PRN cap 02/02/18 06/20/20 History tamsulosin 0.4 mg capsule 0.4 mg PO DAILY 02/02/18 06/20/20 History cholecalciferol (vitamin D3) 25 1,000 units PO DAILY 04/03/18 07/16/20 History mcg (1,000 unit) capsule ibuprofen 600 mg tablet 600 mg PO Q6H PRN #90 tab 01/08/19 07/16/20 Rx albuterol sulfate 90 mcg/actuation 2 puffs INH QID PRN #18 gm 01/29/19 07/16/20 Rx aerosol inhaler divalproex 500 mg tablet,delayed 1,000 mg PO QAM tab 01/29/19 07/16/20 History release docusate sodium 100 mg capsule 100 mg PO DAILY PRN cap 01/29/19 07/16/20 History bupropion HCl 100 mg tablet 100 mg PO DAILY #90 tab 08/09/19 07/16/20 Rx metoprolol succinate 25 mg 25 mg PO DAILY #90 tab 03/11/20 01/15/21 Rx tablet,extended release 24 hr dutasteride 0.5 mg capsule 0.5 mg PO DAILY #90 cap 02/04/20 07/16/20 Rx ketoconazole 2 % topical cream 1 applic TOP DAILY #90 g 02/12/20 07/16/20 Rx fluticasone fur. 100 mcg-umeclid 1 inh INHALATION Q24H #60 ea 06/20/20 07/16/20 Rx 62.5 mcg-vilant 25 mcg inhalat.powder divalproex 250 mg PO HS 07/16/20 07/16/20 History Allergies Allergy/AdvReac Type Severity Reaction Status Date / Time Cipro Allergy Intermediate RASH Verified 12/25/17 10:51 ciprofloxacin Allergy Intermediate RASH Verified 06/20/20 08:59 vancomycin Allergy Intermediate RASH Verified 06/20/20 08:59 sulfamethoxazole Allergy Unknown Unknown Verified 06/20/20 08:59 [From Bactrim] trimethoprim [From Bactrim] Allergy Unknown Unknown Verified 06/20/20 08:59 Past Med/Surg History Medical History Acute exacerbation of chronic obstructive pulmonary disease (COPD) Adenocarcinoma, lung (01/2016) Ataxic gait Benign prostate hyperplasia Bilateral carotid artery occlusion Bipolar disorder Chlamydial proctitis Chronic rhinitis COPD (chronic obstructive pulmonary disease) with chronic bronchitis Diabetic ulcer of toe of right foot, limited to breakdown of skin Esophageal stenosis Esophagitis H/O cardiac pacemaker Hepatic steatosis Hiatal hernia History of lung cancer (01/2016) 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 Homicidal ideation Hypertension Hyponatremia Memory loss Mesenteric lymphadenitis Osteomyelitis Peripheral arterial disease Pressure ulcer of left heel, stage 3 Pressure ulcer of right heel, stage 4 Pulmonary nodule Recurrent left pleural effusion s/p thoracentesis August 2018 Schizoaffective disorder Surgical History History of bronchoscopy (01/2016) History of shoulder surgery S/P peripheral artery angioplasty with stent placement (06/2016) 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, 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 S/P thoracentesis (05/2019) L pleural effusion Status post femorofemoral bypass surgery (06/2016) Family History Brother Myocardial infarction Father Myocardial infarction Other Cancer Family history non-contributory Lung disease Denies family history of Tuberculosis Ovarian cancer Prostate cancer Diabetes Heart disease Allergies Breast cancer Emphysema, unspecified Lung cancer Colorectal cancer Asthma Social History Smoking Status: Current every day smoker Tobacco Type: Cigarettes packs per day: 2; Years Smoked: 30; Second Hand Exposure: No; Hx Alcohol Use: Yes Alcohol type: beer Hx Substance Use: Yes Last Used Substance: Hours (ago) Last Used Substance Other:: 12 hours ago Preferred Language: Upper Sorbian Communication Ability: Effective Visual Impairment: No Limitations Hearing Ability: Normal 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: No Beliefs That Will Affect Care: None marital status: Single Current Living Situation: Alone current occupational status: disabled Feels Safe at Home: Yes Childhood Exposure to Second-Hand Smoke: Yes Diet Comment: regular caffeine: Yes (coffee 1 pot a day) Dental Care, Regularly: No Physical Activity Frequency: Does not Exercise Seatbelt Use: always Sunscreen Use: No Assistive Devices: Wheelchair Review of Systems A total of 10 systems reviewed and were otherwise negative Physical Exam Vital Signs Vital Signs - 24 hr 07/16/20 12:39 07/16/20 13:00 07/16/20 13:23 Temperature 36.2 C L Temperature Source Oral Pulse Rate 113 H Pulse Rate [Bilateral Forehead] 116 H Pulse Rate from SpO2 Sensor Pulse Rhythm Regular Pulse Strength Normal Respiratory Rate 30 H 30 H 20 Respiratory Effort / Characteristics Grunting Labored Short of Breath SOB on Exertion Grunting Labored Spontaneous Grunting Respiratory Depth Normal Respiratory Pattern Grunting Irregular Blood Pressure 135/86 Blood Pressure Mean 102 Blood Pressure Position Sitting Pulse Oximetry 86 L 96 100 Oxygen Delivery Method Room Air Nasal Cannula Nasal Cannula Oxygen Flow Rate 4 2 Sepsis Recent Fever Within 48 Hours No Sepsis New/Unexplained Change in Mental Status No Sepsis Action Taken by Nursing No Action Required Oxygen Flow Rate - Titration Pulse Oximetry Post Tiitration 07/16/20 13:30 07/16/20 13:57 07/16/20 14:10 Temperature Temperature Source Pulse Rate 115 H 115 H 112 H Pulse Rate [Bilateral Forehead] Pulse Rate from SpO2 Sensor 115 H 112 H Pulse Rhythm Regular Pulse Strength Respiratory Rate 30 H 25 H 30 H Respiratory Effort / Characteristics Respiratory Depth Respiratory Pattern Blood Pressure 127/85 Blood Pressure Mean 99 Blood Pressure Position Pulse Oximetry 100 79 L 100 Oxygen Delivery Method Nasal Cannula Nasal Cannula Oxygen Flow Rate 2 Sepsis Recent Fever Within 48 Hours Sepsis New/Unexplained Change in Mental Status Sepsis Action Taken by Nursing Oxygen Flow Rate - Titration 2 Pulse Oximetry Post Tiitration 100 07/16/20 14:30 07/16/20 15:00 07/16/20 15:30 Temperature Temperature Source Pulse Rate 110 H 112 H 110 H Pulse Rate [Bilateral Forehead] Pulse Rate from SpO2 Sensor 113 H 112 H 110 H Pulse Rhythm Pulse Strength Respiratory Rate 23 40 H 37 H Respiratory Effort / Characteristics Respiratory Depth Respiratory Pattern Blood Pressure Blood Pressure Mean Blood Pressure Position Pulse Oximetry 96 100 100 Oxygen Delivery Method Nasal Cannula Nasal Cannula Nasal Cannula Oxygen Flow Rate 2 2 2 Sepsis Recent Fever Within 48 Hours Sepsis New/Unexplained Change in Mental Status Sepsis Action Taken by Nursing Oxygen Flow Rate - Titration Pulse Oximetry Post Tiitration Physical Exam GENERAL: He is oriented to person, place, and time. He appears well-developed and well-nourished. He does not appear distressed. HENT: Exam performed. - Head: Normocephalic and atraumatic. - Right Ear: External ear normal. No mastoid tenderness. - Left Ear: External ear normal. No mastoid tenderness. - Mouth/Throat: The oropharynx is clear and moist. No trismus in the jaw. No dental abscesses or uvula swelling. No oropharyngeal exudate or tonsillar abscesses. EYES: Conjunctivae and EOM are normal. Pupils are equal, round, and reactive to light. Right eye exhibits no discharge. Left eye exhibits no discharge. No scleral icterus. NECK: Normal range of motion. Neck supple. No JVD present. No spinous process tenderness present. No carotid bruit present. No rigidity. No tracheal deviation and normal range of motion present. No Brudzinski's sign and no Kernig's sign noted. CV: Tachycardic rate, regular rhythm, normal heart sounds and intact distal pulses. There is no peripheral edema. Palpable radial pulses bue. PULM/CHEST:Diffuse expiratory wheezes - Chest Wall: He exhibits no tenderness. ABD: The abdomen is soft. Bowel sounds are normal. He has no distension. No mass is present. There is no tenderness. There is no rebound, no guarding, no Yun's sign and no tenderness at McBurney's point. Rovsig negative. MUSC/SKEL: Normal range of motion. There is no peripheral edema, tenderness or deformity. LYMPH: No cervical adenopathy. NEURO: He is alert and oriented to person, place, and time. He has normal strength. No cranial nerve deficit or sensory deficit. Coordination and gait normal. GCS eye subscore is 4. GCS verbal subscore is 5. GCS motor subscore is 6. Cerebellar tests wnl. SKIN: Skin is warm and dry. He is not diaphoretic. PSYCH: He has a normal mood and affect. Behavior is normal. Judgment and thought content normal. Course Course 1246: The patient was evaluated in room B5. A complete history and physical exam was performed. Cardiac monitoring: An order was placed for continuous cardiac monitoring. The monitor shows a rate of 120 with sinus rhythm Patient was seen in full airborne precautions. Patient was seen in N95's, linwood ves, gowns, face shield by myself and staff. Patient was placed on pulse oximeter which found him to be in the low 80s on room air. Patient was applied supplemental oxygen via nasal cannula which imp roved his oxygenation. Patient will be treated with steroids and duo nebs. Solu-Medrol 125 mg ordered for the patient given his history of COPD. 1630:Vital signs stable on supplemental oxygen.Labs show that the patient is positive for COVID-19. Imaging shows no PE. Patient will be admitted to the [facility] hospitalist team. Dr. Fleming's team has been notified. Administered Medications Discontinued Medications Albuterol (Albut/Ipratrop 3mg/0.5mg Neb 3 Ml Vial) 3 ml NEB NOW STA Stop: 07/16/20 12:58 Last Admin: 07/16/20 13:20 Dose: 3 ml Documented by: [id number] Ioversol (Optiray 320 125ml) 120 ml IV ONCE ONE Stop: 07/16/20 15:40 Last Admin: 07/16/20 15:39 Dose: 120 ml Documented by: [id number] Methylprednisolone (Methylprednisolone 125 Mg/2 Ml Vial) 125 mg IV NOW STA Stop: 07/16/20 12:58 Last Admin: 07/16/20 13:40 Dose: 125 mg Documented by: [id number] Critical Care Time Critical Care Time: Yes Total Critical Care Time: 66 I have personally spent greater than 66 minutes of critical care time in the direct management of this patient. This includes bedside care, interpretation of diagnostic studies, and testing, discussion with consultants, patient, and family members, and other required patient management activities. This 66 minutes is in excess of all separately billable procedures. Medical Decision Making Laboratory Data Result diagrams: 07/16/20 12:55 07/16/20 13:58 Lab Results 07/16/20 07/16/20 07/16/20 Range/Units 12:55 12:55 12:55 WBC 2.69 L (4.8-10.8) K/uL RBC 3.57 L (4.7-6.1) M/uL Hgb 10.5 L (14.0-18.0) g/dL Hct 30.4 L (42-52) % MCV 85.2 (80-100) fL MCH 29.4 (25-34) pg MCHC 34.5 (32-36) g/dL RDW Std Deviation 50.1 H (36.4-46.3) fL RDW Coeff of Raul 16.0 H (11.5-14.5) % Plt Count 204 (130-400) K/uL Immature Gran % (Auto) 0.0 % Neut % (Auto) 71.0 % Lymph % (Auto) 11.5 % [place] % (Auto) 17.1 % Eos % (Auto) 0.0 % Baso % (Auto) 0.4 % Neut # (Auto) 1.91 (1.4-6.5) K/uL Lymph # (Auto) 0.31 L (1.2-3.4) K/uL [place] # (Auto) 0.46 (0.11-0.59) K/uL Eos # (Auto) 0.00 (0-0.5) K/uL Baso # (Auto) 0.01 (0-0.2) K/uL Immature Gran # (Auto) 0.00 (0.00-0.02) K/uL PT Cancelled INR Cancelled APTT Cancelled PTT Ratio Cancelled VBG pH (7.36-7.41) VBG pCO2 (38-50) mmHg VBG pO2 mmHg VBG HCO3 mmol/L VBG O2 Saturation % VBG Base Excess mEq/L Barometric Pressure mm/Hg Sodium Cancelled Potassium Cancelled Chloride Cancelled Carbon Dioxide Cancelled Anion Gap Cancelled BUN Cancelled Creatinine Cancelled Est Cr Clr Drug Dosing Cancelled Est GFR ( Amer) Cancelled Est GFR (Non-Af Amer) Cancelled BUN/Creatinine Ratio Cancelled Glucose Cancelled Lactate Calcium Cancelled Magnesium Cancelled Total Bilirubin Cancelled AST Cancelled ALT Cancelled Alkaline Phosphatase Cancelled Troponin I Cancelled Total Protein Cancelled Albumin Cancelled Globulin Cancelled Albumin/Globulin Ratio Cancelled Procalcitonin COVID-19 Eval Order SARS-CoV-2, RNA, NAAT (NEGATIVE) 07/16/20 07/16/20 07/16/20 Range/Units 12:55 12:55 13:31 WBC (4.8-10.8) K/uL RBC (4.7-6.1) M/uL Hgb (14.0-18.0) g/dL Hct (42-52) % MCV (80-100) fL MCH (25-34) pg MCHC (32-36) g/dL RDW Std Deviation (36.4-46.3) fL RDW Coeff of Raul (11.5-14.5) % Plt Count (130-400) K/uL Immature Gran % (Auto) % Neut % (Auto) % Lymph % (Auto) % [place] % (Auto) % Eos % (Auto) % Baso % (Auto) % Neut # (Auto) (1.4-6.5) K/uL Lymph # (Auto) (1.2-3.4) K/uL [place] # (Auto) (0.11-0.59) K/uL Eos # (Auto) (0-0.5) K/uL Baso # (Auto) (0-0.2) K/uL Immature Gran # (Auto) (0.00-0.02) K/uL PT INR APTT PTT Ratio VBG pH (7.36-7.41) VBG pCO2 (38-50) mmHg VBG pO2 mmHg VBG HCO3 mmol/L VBG O2 Saturation % VBG Base Excess mEq/L Barometric Pressure mm/Hg Sodium Potassium Chloride Carbon Dioxide Anion Gap BUN Creatinine Est Cr Clr Drug Dosing Est GFR ( Amer) Est GFR (Non-Af Amer) BUN/Creatinine Ratio Glucose Lactate Cancelled Calcium Magnesium Total Bilirubin AST ALT Alkaline Phosphatase Troponin I Total Protein Albumin Globulin Albumin/Globulin Ratio Procalcitonin Cancelled COVID-19 Eval [facility] SARS-CoV-2, RNA, NAAT (NEGATIVE) 07/16/20 07/16/20 07/16/20 Range/Units 13:31 13:58 13:58 WBC (4.8-10.8) K/uL RBC (4.7-6.1) M/uL Hgb (14.0-18.0) g/dL Hct (42-52) % MCV (80-100) fL MCH (25-34) pg MCHC (32-36) g/dL RDW Std Deviation (36.4-46.3) fL RDW Coeff of Raul (11.5-14.5) % Plt Count (130-400) K/uL Immature Gran % (Auto) % Neut % (Auto) % Lymph % (Auto) % [place] % (Auto) % Eos % (Auto) % Baso % (Auto) % Neut # (Auto) (1.4-6.5) K/uL Lymph # (Auto) (1.2-3.4) K/uL [place] # (Auto) (0.11-0.59) K/uL Eos # (Auto) (0-0.5) K/uL Baso # (Auto) (0-0.2) K/uL Immature Gran # (Auto) (0.00-0.02) K/uL PT 10.4 INR 1.0 APTT 24.8 PTT Ratio 0.9 VBG pH 7.34 L (7.36-7.41) VBG pCO2 48 (38-50) mmHg VBG pO2 24 mmHg VBG HCO3 26 mmol/L VBG O2 Saturation < 60.0 % VBG Base Excess -0.7 mEq/L Barometric Pressure 738.5 mm/Hg Sodium Potassium Chloride Carbon Dioxide Anion Gap BUN Creatinine Est Cr Clr Drug Dosing Est GFR ( Amer) Est GFR (Non-Af Amer) BUN/Creatinine Ratio Glucose Lactate Calcium Magnesium Total Bilirubin AST ALT Alkaline Phosphatase Troponin I Total Protein Albumin Globulin Albumin/Globulin Ratio Procalcitonin COVID-19 Eval Order SARS-CoV-2, RNA, NAAT POSITIVE A* (NEGATIVE) 07/16/20 07/16/20 07/16/20 Range/Units 13:58 13:58 13:58 WBC (4.8-10.8) K/uL RBC (4.7-6.1) M/uL Hgb (14.0-18.0) g/dL Hct (42-52) % MCV (80-100) fL MCH (25-34) pg MCHC (32-36) g/dL RDW Std Deviation (36.4-46.3) fL RDW Coeff of Raul (11.5-14.5) % Plt Count (130-400) K/uL Immature Gran % (Auto) % Neut % (Auto) % Lymph % (Auto) % [place] % (Auto) % Eos % (Auto) % Baso % (Auto) % Neut # (Auto) (1.4-6.5) K/uL Lymph # (Auto) (1.2-3.4) K/uL [place] # (Auto) (0.11-0.59) K/uL Eos # (Auto) (0-0.5) K/uL Baso # (Auto) (0-0.2) K/uL Immature Gran # (Auto) (0.00-0.02) K/uL PT INR APTT PTT Ratio VBG pH (7.36-7.41) VBG pCO2 (38-50) mmHg VBG pO2 mmHg VBG HCO3 mmol/L VBG O2 Saturation % VBG Base Excess mEq/L Barometric Pressure mm/Hg Sodium 135 L Potassium 4.6 Chloride 103 Carbon Dioxide 23 Anion Gap 9.0 BUN 23 H Creatinine 1.24 Est Cr Clr Drug Dosing 65.2 Est GFR ( Amer) 69.8 Est GFR (Non-Af Amer) 60.2 BUN/Creatinine Ratio 18.9 Glucose 87 Lactate 1.4 Calcium 9.2 Magnesium 2.1 Total Bilirubin 0.6 AST 28 ALT 14 Alkaline Phosphatase 52 Troponin I < 0.015 Total Protein 8.0 Albumin 2.7 L Globulin 5.3 H Albumin/Globulin Ratio 0.5 L Procalcitonin 0.08 COVID-19 Eval Order SARS-CoV-2, RNA, NAAT (NEGATIVE) Imaging Data Radiologist's Impression: XR chest 1V portable HISTORY: SEPSIS COMPARISON: None. FINDINGS: The lungs are clear. Cardiac silhouette is normal in size. No pleural effusions. No pneumothorax. IMPRESSION: No acute process. ACT 112: Negative or not required by law. Electronically signed by: Patricio Burger M.D. 07/16/2020 1:43 PM Dictated: 07/16/20 1342 Transcribed: 07/16/[address] ANGIOGRAPHY OF THE CHEST, PULMONARY EMBOLUS PROTOCOL CLINICAL HISTORY: Shortness of breath. Covid. History of lung carcinoma. COMPARISON STUDY: Chest CT March 24, 2020. Chest radiograph performed earlier today. TECHNIQUE: Following IV administration of 120 mL of Optiray-320, helical axial images of the chest were obtained utilizing the pulmonary embolus protocol. Maximal intensity projections and sagittal and coronal reformats were viewed on an independent 3D workstation. IV contrast was administered without complication. Automated exposure control was utilized for the study. A dose lowering technique was utilized adhering to the principles of ALARA. CT DOSE: 619.83 mGycm FINDINGS: No pulmonary emboli are identified although the segmental and subsegmental pulmonary arteries are suboptimally assessed due to respiratory motion. The size of the heart is normal. There is no pericardial effusion. Extensive coronary artery calcification is noted. There is no thoracic aortic dissection. The proximal bilateral common carotid arteries are occluded. This wa s shown on prior exam of March 24, 2020. A large left pleural effusion has mildly increased in size since CT of March 24, 2020. There is a trace right pleural effusion. There is no pneumothorax. Bilateral perihilar consolidation with air bronchograms is unchanged. This favors postradiation change. Moderate multifocal bilateral ground glass opacities have developed. Lungs are suboptimally assessed due to respiratory motion. There is no thoracic lymphadenopathy. Old bilateral rib deformities are present. Upper abdomen is unremarkable. IMPRESSION: 1. No pulmonary emboli identified although segmental and subsegmental pulmonary arteries suboptimally assessed due to respiratory motion. 2. Large left pleural effusion, mildly increased in size since CT of March 24, 2020. Trace right pleural effusion. 3. Interval development of moderate multifocal groundglass opacities consistent with an infectious process. 4. No significant change in bilateral perihilar consolidation with air bronc hograms. The findings favor post radiation change. ACT 112: Negative or not required by law. Electronically signed by: Delio Head M.D. 07/16/2020 4:07 PM Dictated: 07/16/20 1556Transcribed: 07/16/20 1556 ECG Data Indication: + SOB/dyspnea Rate (beats per minute): 112 Rhythm: + sinus tachycardia ECG Intervals/blocks: + Normal QRS, + Normal DE and + Normal QT-c ECG ST segments: + Normal ST segments [facility] Narrative 1246: The patient was evaluated in room B5. A complete history and physical exam was performed. Cardiac monitoring: An order was placed for continuous cardiac monitoring. The monitor shows a rate of 120 with sinus rhythm Patient was seen in full airborne precautions. Patient was seen in N95's, gloves, gowns, face shield by myself and staff. Patient was placed on pulse oximeter which found him to be in the low 80s on room air. Patient was applied supplemental oxygen via nasal cannula which improved his oxygenation. Patient will be treated with steroids and duo nebs. Solu-Medrol 125 mg ordered for the patient given his history of COPD. 1630:Vital signs stable on supplemental oxygen.Labs show that the patient is positive for COVID-19. Imaging shows no PE. Patient will be admitted to the [facility] hospitalist team. Dr. Fleming's team has been notified. Impression & Plan Hypoxia, Pneumonia due to 2019 novel coronavirus, COPD (chronic obstructive p ulmonary disease) with chronic bronchitis Discharge Plan Visit Data Chief Complaint: Shortness of Breath/Dyspnea ED Provider: Matthew Byrd Discharge Problem: Hypoxia, Pneumonia due to 2019 novel coronavirus, COPD (chronic obstructive pulmonary disease) with chronic bronchitis Patient Disposition: Admitted As Inpatient Forms Stand Alone Forms: My [facility] Prescriptions Prescriptions: No Action tamsulosin 0.4 mg capsule 0.4 mg PO DAILY RF: 0 acetaminophen 500 mg capsule 500 mg PO Q6H PRN (Reason: fever or pain) RF: 0 melatonin 5 mg capsule 5 mg PO HS PRN (Reason: sleep) RF: 0 ascorbic acid (vitamin C) 500 mg capsule 500 mg PO BID RF: 0 cholecalciferol (vitamin D3) 1,000 unit capsule 1,000 units PO DAILY RF: 0 ibuprofen 600 mg tablet 600 mg PO Q6H PRN (Reason: pain) Qty: 90 RF: 2 bupropion HCl 100 mg tablet 100 mg PO DAILY Qty: 90 RF: 1 metoprolol succinate 25 mg tablet extended release 24 hr 25 mg PO DAILY Qty: 90 RF: 1 dutasteride 0.5 mg capsule 0.5 mg PO DAILY Qty: 90 RF: 1 ketoconazole 2 % cream 1 applic TOP DAILY Qty: 90 RF: 3 docusate sodium 100 mg capsule 100 mg PO DAILY PRN (Reason: Constipation) RF: 0 divalproex 500 mg tablet,delayed release (DR/EC) 1,000 mg PO QAM RF: 0 albuterol sulfate [Ventolin HFA] 90 mcg/actuation HFA aerosol inhaler 2 puffs INH QID PRN (Reason: shortness of breath or wheezing) Qty: 18 RF: 4 Trelegy Ellipta 100-62.5-25 mcg blister with device 1 inh inhalation Q24H Qty: 60 RF: 2 divalproex 250 mg tablet,delayed release (DR/EC) 250 mg PO HS RF: 0 Referrals Referrals: John Johnson CRNP [Primary Care Provider] -
[2020-07-16] MEDS ORDERED: OPTIRAY 320 125ml IV ONE (15:39)
--- NOTE | 2020-07-16 16:08 | CT Scan Report ---
CT ANGIOGRAPHY OF THE CHEST, PULMONARY EMBOLUS PROTOCOL CLINICAL HISTORY: Shortness of breath. Covid. History of lung carcinoma. COMPARISON STUDY: Chest CT March 24, 2020. Chest radiograph performed earlier today. TECHNIQUE: Following IV administration of 120 mL of Optiray-320, helical axial images of the chest we re obtained utilizing the pulmonary embolus protocol. Maximal intensity projections and sagittal and coronal reformats were viewed on an independent 3D workstation. IV contrast was administered withou t complication. Automated exposure control was utilized for the study. A dose lowering technique wa s utilized adhering to the principles of ALARA. CT DOSE: 619.83 mGycm FINDINGS: No pulmonary emboli are identified although the segmental and subsegmental pulmonary arter ies are suboptimally assessed due to respiratory motion. The size of the heart is normal. There is no pericardial effusion. Extensive coronary artery calcification is noted. There is no thoracic aortic dissection. The proximal bilateral common carotid arteries are occluded. This was shown on prior exam of March 24, 2020. A large left pleural effusion has mildly increased in size since CT of March 24, 2020. There is a trace right pleural effusion. There is no pneumothorax. Bilateral perihilar cons olidation with air bronchograms is unchanged. This favors postradiation change. Moderate multifocal b ilateral ground glass opacities have developed. Lungs are suboptimally assessed due to respiratory mo tion. There is no thoracic lymphadenopathy. Old bilateral rib deformities are present. Upper abdomen is unremarkable. IMPRESSION: 1. No pulmonary emboli identified although segmental and subsegmental pulmonary arteries suboptimally assessed due to respiratory motion. 2. Large left pleural effusion, mildly increased in size since CT of March 24, 2020. Trace right pl eural effusion. 3. Interval development of moderate multifocal groundglass opacities consistent with an infectious pr ocess. 4. No significant change in bilateral perihilar consolidation with air bronchograms. The findings fav or post radiation change. ACT 112: Negative or not required by law. Electronically signed by: Delio Head M.D. 07/16/2020 4:07 PM
--- NOTE | 2020-07-16 17:33 | History & Physical Report ---
Date of Service July 16, 2020 Assessment & Plan (1) COVID-19: Patient hypoxic- Admit to COVID unit - Will re-discuss convalescent plasma, patient declined originally - Remdesivir CKD II GFR 60 - Decadron - Oxygen therapy titrate for SPO2 88-92 - Assist with self rotation and self proning through out day. (2) Acute exacerbation of chronic obstructive pulmonary disease (COPD): GOLD 2D with last FEV1 - Trelegy with Albuterol - Schedule DEE MDI for 24-48 hours if needed for dysnpea - Transition to Decadron 10mg for 7 days---> continue omeprozole - Keep SPO2 88-92% Patient is amendable to NC and HFNC DNR/DNI (3) Recurrent left pleural effusion: Currently will follow- Pulmonary consulted for assistance as they are very familiar with patient - Drain for symptomatic relief if needed. Currently doing well with minimal NC support (4) History of lung cancer: As above-- Recent thoracentesis (5) Bilateral carotid artery occlusion: No acute changes in pateint mentation - continue statin - ? ASA ? statin (6) Peripheral arterial disease: as above (7) Esophagitis: Omeprozole Continue (8) DVT prophylaxis: High risk with COVID, will do lovenox 0.5mg/kg q12 for prophylaxis (9) CKD (chronic kidney disease) stage 2, GFR 60-89 ml/min: Follow, avoid nephrotoxic agents, minimize exposure. History of Present Illness Primary Care Provider: John Johnson, PETE 65 YOM with significant history of NSCLC stage III, PAD/PVD with fem-fem bypass, bilateral carotid occlusions(perfusion is done through is verts), HTN, COPD, BPH, bipolar disorder and chronic recurrent left pleural effusion. Patient lung cancer was IIIA adenocarcinoma and received chemo and radiation. He has had multiple draining of this left pleural effusion and most recently done last week that did not show any metastasis. The patient has COPD, continues to smo ke and be short of breath. He has been transitioned to Trelegy daily and Albuterol prn and prednisone daily following a prednisone taper at the end of November for a COPD exacerbation. He was brought to the emergency room today by EMS because his landlord/caregiver called them secondary to him not being able to breathe. Patient had two low SPO2 readings in the EMD <86%. The patient has not been feeling well for the past week with "feeling like COVID" he received 125 mg methylpred in the EMD as well as a COVID test. COVID (+). Patient wishes to be a DNR/DNI. He will be admitted for COVID treatment/monitoring, oxygenation support, and COPD exacerbation in the setting of COVID. Allergies Allergy/AdvReac Type Severity Reaction Status Date / Time Cipro Allergy Intermediate RASH Verified 12/25/17 10:51 ciprofloxacin Allergy Intermediate RASH Verified 07/16/20 18:01 vancomycin Allergy Intermediate RASH Verified 07/16/20 18:01 sulfamethoxazole Allergy Unknown Unknown Verified 07/16/20 18:01 [From Bactrim] trimethoprim [From Bactrim] Allergy Unknown Unknown Verified 07/16/20 18:00 Home Medications Medication Instructions Recorded Confirmed Type acetaminophen 500 mg capsule 500 mg PO Q6H PRN 02/02/18 07/16/20 History ascorbic acid (vitamin C) 500 mg 500 mg PO BID cap 02/02/18 07/16/20 History capsule melatonin 5 mg capsule 5 mg PO HS PRN cap 02/02/18 07/16/20 History cholecalciferol (vitamin D3) 25 1,000 units PO DAILY 04/03/18 07/16/20 History mcg (1,000 unit) capsule ibuprofen 600 mg tablet 600 mg PO Q6H PRN #90 tab 01/08/19 07/16/20 Rx albuterol sulfate 90 mcg/actuation 2 puffs INH QID PRN #18 gm 01/29/19 07/16/20 Rx aerosol inhaler divalproex 500 mg tablet,delayed 1,000 mg PO QAM tab 01/29/19 07/16/20 History release docusate sodium 100 mg capsule 100 mg PO DAILY PRN cap 01/29/19 07/16/20 History bupropion HCl 100 mg tablet 100 mg PO DAILY #90 tab 08/09/19 07/16/20 Rx metoprolol succinate 25 mg 25 mg PO DAILY #90 tab 08/15/19 07/16/20 Rx tablet,extended release 24 hr dutasteride 0.5 mg capsule 0.5 mg PO DAILY #90 cap 02/04/20 07/16/20 Rx ketoconazole 2 % topical cream 1 applic TOP DAILY #90 g 02/12/20 07/16/20 Rx fluticasone fur. 100 mcg-umeclid 1 inh INHALATION Q24H #60 ea 06/20/20 07/16/20 Rx 62.5 mcg-vilant 25 mcg inhalat.powder divalproex 250 mg PO HS 07/16/20 07/16/20 History omeprazole 20 mg PO DAILY 07/16/20 07/16/20 History quetiapine 50 mg PO DAILY 07/16/20 07/16/20 History Past Med/Surg History Medical History Acute exacerbation of chronic obstructive pulmonary disease (COPD) Adenocarcinoma, lung (01/2016) Ataxic gait Benign prostate hyperplasia Bilateral carotid artery occlusion Bipolar disorder Chlamydial proctitis Chronic rhinitis COPD (chronic obstructive pulmonary disease) with chronic bronchitis Diabetic ulcer of toe of right foot, limited to breakdown of skin Esophageal stenosis Esophagitis H/O cardiac pacemaker Hepatic steatosis Hiatal hernia History of lung cancer (01/2016) 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 Homicidal ideation Hypertension Hyponatremia Memory loss Mesenteric lymphadenitis Osteomyelitis Peripheral arterial disease Pressure ulcer of left heel, stage 3 Pressure ulcer of right heel, stage 4 Pulmonary nodule Recurrent left pleural effusion s/p thoracentesis August 2018 Schizoaffective disorder Surgical History History of bronchoscopy (01/2016) History of shoulder surgery S/P peripheral artery angioplasty with stent placement (06/2016) [employer], 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 S/P thoracentesis (05/2019) L pleural effusion Status post femorofemoral bypass surgery (06/2016) Family History Brother Myocardial infarction Father Myocardial infarction Other Cancer Family history non-contributory Lung disease Denies family history of Tuberculosis Ovarian cancer Prostate cancer Diabetes Heart disease Allergies Breast cancer Emphysema, unspecified Lung cancer Colorectal cancer Asthma Social History Smoking Status: Current every day smoker Tobacco Type: Cigarettes packs per day: 2; Years Smoked: 30; Second Hand Exposure: No; Hx Alcohol Use: Yes Alcohol type: beer Hx Substance Use: Yes Last Used Substance: Hours (ago) Last Used Substance Other:: 12 hours ago Preferred Language: Syriac Communication Ability: Effective Visual Impairment: No Limitations Hearing Ability: Normal Narrow Gauge Engineer Required: No Beliefs That Will Affect Care: None marital status: Single Current Living Situation: Alone current occupational status: disabled Feels Safe at Home: Yes Childhood Exposure to Second-Hand Smoke: Yes Diet Comment: regular caffeine: Yes (coffee 1 pot a day) Dental Care, Regularly: No Physical Activity Frequency: Does not Exercise Seatbelt Use: always Sunscreen Use: No Assistive Devices: Wheelchair Review of Systems Review of Systems: REVIEW OF SYSTEMS: Constitutional: (+) fever, chills Eyes: No diplopia, no worsening or blurred vision ENT: normal hearing, no trouble swallowing Respiratory: (+) cough, dyspnea at rest and on exertion, No change in sputum Cardiovascular: No chest pain, tightness or palpitations Abdomen: No pain, nausea, vomiting, diarrhea or constipation Musculoskeletal: (+) joint pain, calf pain, swelling Neurologic: No weakness, numbness/tingling, or balance problems Psychiatric: No anxiety or depression Skin: No rash or itch Physical Exam Physical Exam: PHYSICAL EXAM: General: awake, alert, no apparent distress Head: Normocephalic, atraumatic ENT: PERRL, EOMI, mucous membranes moist Neuro: AAO x 3, speech clear and appropriate, strength intact bilaterally 5/5, sensation intact and equal all extremities. Chest: equal rise and fall of the chest, no accessory muscle use, but tachypnec, Diminished throughout on 3LNC, positive cough with thick nixon sputum Cardiac: Regular rate and rhythm, telemetry reviewed, skin warm dry, cap refill <3 seconds, peripheral pulses +2 no JVD, no murmur, no JVD, no edema GI: NABS x 4 quadrants, soft, nontender to palpation, no rebound, guarding or tenderness : Spontaneously voiding, no pain, no CVA tenderness, Extremities: Normal inspection, no peripheral edema or erythema MSK: Patient chronic use of wheelchair inability to ambulate Psych: Normal mood and affect Skin: no rash or erythema Results & Data Results & Data ([facility]) Vital Signs (Past 12 Hours) Vital Signs Temp Pulse Pulse Resp BP Pulse Ox 07/16/20 15:30 110 H 37 H 100 07/16/20 15:00 112 H 40 H 100 02/10/21 14:30 110 H 23 96 07/16/20 14:10 112 H 30 H 100 07/16/20 13:57 115 H 25 H 127/85 79 L 07/16/20 13:30 115 H 30 H 100 07/16/20 13:23 116 H 20 100 07/16/20 13:00 30 H 96 07/16/20 12:39 36.2 C L 113 H 30 H 135/86 86 L Laboratory Results Abnormal lab results 07/16/20 07/16/20 07/16/20 Range/Units 12:55 13:31 13:58 WBC 2.69 L (4.8-10.8) K/uL RBC 3.57 L (4.7-6.1) M/uL Hgb 10.5 L (14.0-18.0) g/dL Hct 30.4 L (42-52) % RDW Std Deviation 50.1 H (36.4-46.3) fL RDW Coeff of Raul 16.0 H (11.5-14.5) % Lymph # (Auto) 0.31 L (1.2-3.4) K/uL VBG pH 7.34 L (7.36-7.41) Sodium (136-145) mmol/L BUN (7-18) mg/dl Albumin (3.4-5.0) gm/dl Globulin (2.5-4.0) gm/dl Albumin/Globulin Ratio (0.9-2) SARS-CoV-2, RNA, NAAT POSITIVE A* (NEGATIVE) 07/16/20 Range/Units 13:58 WBC (4.8-10.8) K/uL RBC (4.7-6.1) M/uL Hgb (14.0-18.0) g/dL Hct (42-52) % RDW Std Deviation (36.4-46.3) fL RDW Coeff of Raul (11.5-14.5) % Lymph # (Auto) (1.2-3.4) K/uL VBG pH (7.36-7.41) Sodium 135 L (136-145) mmol/L BUN 23 H (7-18) mg/dl Albumin 2.7 L (3.4-5.0) gm/dl Globulin 5.3 H (2.5-4.0) gm/dl Albumin/Globulin Ratio 0.5 L (0.9-2) SARS-CoV-2, RNA, NAAT (NEGATIVE) Diagnostic Findings CT ANGIOGRAPHY OF THE CHEST, PULMONARY EMBOLUS PROTOCOL CLINICAL HISTORY: Shortness of breath. Covid. History of lung carcinoma. COMPARISON STUDY: Chest CT March 24, 2020. Chest radiograph performed earlier today. TECHNIQUE: Following IV administration of 120 mL of Optiray-320, helical axial images of the chest were obtained utilizing the pulmonary embolus protocol. Maximal intensity projections and sagittal and coronal reformats were viewed on an independent 3D workstation. IV contrast was administered without complication. Automated exposure control was utilized for the study. A dose lowering technique was utilized adhering to the principles of ALARA. CT DOSE: 619.83 mGycm FINDINGS: No pulmonary emboli are identified although the segmental and subsegmental pulmonary arteries are suboptimally assessed due to respiratory motion. The size of the heart is normal. There is no pericardial effusion. Extensive coronary artery calcification is noted. There is no thoracic aortic dissection. The proximal bilateral common carotid arteries are occluded. This was shown on prior exam of March 24, 2020. A large left pleural effusion has mildly increased in size since CT of March 24, 2020. There is a trace right pleural effusion. There is no pneumothorax. Bilateral perihilar consolidation wi th air bronchograms is unchanged. This favors postradiation change. Moderate multifocal bilateral ground glass opacities have developed. Lungs are suboptimally assessed due to respiratory motion. There is no thoracic lymphadenopathy. Old bilateral rib deformities are present. Upper abdomen is unremarkable. IMPRESSION: 1. No pulmonary emboli identified although segmental and subsegmental pulmonary arteries suboptimally assessed due to respiratory motion. 2. Large left pleural effusion, mildly increased in size since CT of March 24, 2020. Trace right pleural effusion. 3. Interval development of moderate multifocal groundglass opacities consistent with an infectious process. 4. No significant change in bilateral perihilar consolidation with air bronchograms. The findings favor post radiation change. SINGLE VIEW CHEST CLINICAL HISTORY: Sepsis. FINDINGS: An AP, portable, upright chest radiograph is compared to study dated 06/20/2020 and correlated with chest CT dated 03/24/2020. The examination is degraded by portable technique and apical lordotic positioning. The cardiomediastinal silhouette is unremarkable, noting atherosclerotic calcification of the thoracic aorta. There is prominence of the pulmonary vasculature. Bilateral paramediastinal fibrosis is similar to previous. There is a layering left pleural effusion with associated left basilar consolidation. There is a small pleural effusion on the right with right basilar consolidation. No pneumothorax is seen. The skeletal structures are osteopenic. There are chronic left-sided rib fractures. IMPRESSION: 1. Left larger than right pleural effusions with bibasilar consolidation. This could represent atelectasis versus an infectious/inflammatory pneumonitis. Clinical correlation will be required. 2. There is prominence of the pulmonary vasculature. Correlate clinically for evidence of congestive change. 3. Chronic parenchymal changes and paramediastinal fibrosis are similar to previous. Medications Administered Albuterol (Albut/Ipratrop 3mg/0.5mg Neb 3 Ml Vial) 3 ml NEB NOW STA Stop: 07/16/20 12:58 Last Admin: 07/16/20 13:20 Dose: 3 ml Documented by: [id number] Ioversol (Optiray 320 125ml) 120 ml IV ONCE ONE Stop: 07/16/20 15:40 Last Admin: 07/16/20 15:39 Dose: 120 ml Documented by: [id number] Methylprednisolone (Methylprednisolone 125 Mg/2 Ml Vial) 125 mg IV NOW STA Stop: 07/16/20 12:58 Last Admin: 07/16/20 13:40 Dose: 125 mg Documented by: [id number] Code Status & VTE Plan Code Status VTE: High risk Supervising Physician Co-Signing Physician Notes Patient was seen and examined independently I discussed the case with Sean FREEMAN I reviewed pertinent past medical social family history and also the plan of care and agree with the plan of care. History of COPD now having Covid positive. remdesivir, Dexamethasone and supplemental oxygen therapy pt did not seem to completely understand about convalescent plasma for consent tonight may improve by morning for another try Pt has a history of recent thoracentesis and a history of malignancy, may need to repeat or pleurex, as does have underlying chronic lung disease lung exam shows decreased breath sounds at the left base, poor air movement otherwise will have inpatient treatment for Covid pneumonia, and also pulmonary evaluation for need for thoracentesis +/- Pleurx chest tube, concern with comorbid pulmonary issues to have high risk of respiratory failure Any exceptions will be noted below PG Care Time/CCT Total # of Minutes Spent Total Time Spent with Patient: Total time spent is greater than 50% in coordination of care (as documented) at patient's floor/unit and/or counseling patient: Coding Level of Care Code 53955 Initial Inpt Care Lvl 3 Diagnoses COVID-19 U07.1 Acute exacerbation of chronic obstructive pulmonary disease (COPD) J44.1 Recurrent left pleural effusion J90 History of lung cancer Z85.118 Bilateral carotid artery occlusion I65.23 Peripheral arterial disease I73.9 Esophagitis K20.9 DVT prophylaxis Z29.9 CKD (chronic kidney disease) stage 2, GFR 60-89 ml/min N18.2
[2020-07-16] MEDS ORDERED: AZITHROMYCIN 250 MG TAB PO ONE ×2 (17:46→21:30)
[2020-07-16 18:13] LABS: Appearance Urine Clear (Clear); Bilirubin Urine Negative (Negative); Blood Urine Trace (Negative); Color Urine Yellow; Glucose Urine UA Negative (Negative); Ketones Urine 1+ (Negative); Leukocyte Esterase Urine Negative (Negative); Nitrite Urine Negative (Negative); Protein Urine Negative (Negative); Specific Gravity Urine > 1.045 (1.000-1.030); Urobilinogen Urine Negative (Negative)
[2020-07-16] MEDS ORDERED: ENOXAPARIN 0.5 MG/KG SQ SCH (18:15)
[2020-07-16 18:21] LABS: Bacteria Urine Negative (Negative); Epithelial Cell Urine 0-5 /lpf (0-5); RBC Urine 0-4 /hpf (0-4); WBC Urine 0-5 /hpf (0-5)
[2020-07-16] MEDS ORDERED: [UNRECOGNIZED DRUG - OTHER] SCH (20:48)
[2020-07-16] MEDS ORDERED: DOCUSATE SODIUM 100 MG CAP PO PRN (20:48)
[2020-07-16] MEDS ORDERED: IBUPROFEN 600 MG TAB PO PRN (20:48)
[2020-07-16] MEDS ORDERED: ALBUT/IPRATROP 3MG/0.5MG NEB 3 ML VIAL NEB PRN (20:48)
[2020-07-16] MEDS ORDERED: ACETAMINOPHEN 500 MG TAB PO PRN (21:14)
[2020-07-16] MEDS ORDERED: MELATONIN 3 MG TAB PO PRN (21:15)
[2020-07-16] MEDS ORDERED: REMDESIVIR 200 MG in SODIUM CHLORIDE 0.9% 210 ML IV ONE (21:30)
[2020-07-16] MEDS ORDERED: SODIUM CHLORIDE 0.9% 10ML FLUSH IV SCH (21:30)
[2020-07-16] MEDS: BENZTROPINE MESYLATE 1 MG TAB PO SCH (22:37)
[2020-07-16] MEDS: ASCORBIC ACID 500 MG TAB PO SCH (22:38)
[2020-07-16] MEDS: DIVALPROEX DELAY RELEASE 500 MG TAB PO SCH (22:38)
[2020-07-17] MEDS: NICOTINE 14 MG/24 HR PATCH TD SCH ×2 (00:03→09:12)
[2020-07-17] MEDS: ENOXAPARIN INJ 60 MG/0.6 ML SYR SQ SCH ×2 (01:36→10:50)
[2020-07-17 06:33] LABS: Hematocrit (blood only) 41.1 % (42-52); Hemoglobin 14.2 g/dL (14.0-18.0); Mean Corpuscular Hemoglobin 29.4 pg (25-34); Mean Corpuscular Hgb Conc 34.5 g/dL (32-36); Mean Corpuscular Volume 85.1 fL (80-100); Mean Platelet Volume 10.2 fL (7.4-10.4); Platelet Count 116 K/uL (130-400); RDW Coefficient of Variation 14.9 % (11.5-14.5); RDW Standard Deviation 46.6 fL (36.4-46.3); Red Blood Count 4.83 M/uL (4.7-6.1)
[2020-07-17 06:57] LABS: Albumin Level 2.7 gm/dl (3.4-5.0); Bilirubin Direct 0.1 mg/dl (0-0.2); Calcium 8.8 mg/dl (8.5-10.1); Creatinine Clr Calc Pharmacy 78.5 ml/min; Est GFR (African American) 87.3; Est GFR (Non-African American) 75.3; Magnesium 2.4 mg/dl (1.8-2.4)
[2020-07-17 07:00] LABS: Bilirubin,Total 0.4 mg/dl (0.2-1); Total Protein 8.3 gm/dl (6.4-8.2)
[2020-07-17] MEDS ORDERED: ALBUTEROL HFA 8 GM INHALER INH SCH (07:00)
[2020-07-17 07:02] LABS: Basophils # (auto) 0.01 K/uL (0-0.2); Basophils % (auto) 0.4 %; Immature Granulocytes # (auto) 0.01 K/uL (0.00-0.02); Immature Granulocytes % (auto) 0.4 %; Lymphocytes # (auto) 0.28 K/uL (1.2-3.4); Lymphocytes % (auto) 10.4 %; Monocytes # (auto) 0.25 K/uL (0.11-0.59); Monocytes % (auto) 9.3 %; Neutrophils # (auto) 2.15 K/uL (1.4-6.5); Neutrophils % (auto) 79.5 %; RBC Morphology Unremarkable
[2020-07-17] MEDS ORDERED: DEXAMETHASONE SOD PHOSPHATE 10 MG in SYRINGE 0 ML IV SCH (09:00)
[2020-07-17] MEDS ORDERED: DEXAMETHASONE SOD INJ 10 MG/ML VIAL IV ONE (09:01)
[2020-07-17] MEDS: FLUTICASONE FUROATE 100MCG 14 PUFFS/INHALER INH SCH (09:09)
[2020-07-17] MEDS: KETOCONAZOLE 2% CR 15 GM TUBE EXT SCH (09:10)
[2020-07-17] MEDS: UMECLIDINIUM/VILANTEROL 62.5/25MCG 7 PUFFS/INHALER INH SCH (09:10)
[2020-07-17] MEDS: ASCORBIC ACID 500 MG TAB PO SCH ×2 (09:11→19:35)
[2020-07-17] MEDS: BENZTROPINE MESYLATE 1 MG TAB PO SCH ×2 (09:11→19:35)
[2020-07-17] MEDS: DIVALPROEX DELAY RELEASE 500 MG TAB PO SCH ×2 (09:11→19:36)
[2020-07-17] MEDS: METOPROLOL SUCC 25MG EXT REL TAB PO SCH (09:12)
[2020-07-17] MEDS: buPROPion HCl 100 MG TABLET PO SCH (09:12)
[2020-07-17] MEDS: CHOLECALCIFEROL 1,000 UNITS 25 MCG TAB PO SCH (09:12)
[2020-07-17] MEDS: TAMSULOSIN HCL 0.4 MG CAP PO SCH (09:12)
[2020-07-17] MEDS: GABAPENTIN 100 MG CAP PO SCH (09:12)
[2020-07-17] MEDS: DONEPEZIL HCL 10 MG TAB PO SCH (09:12)
[2020-07-17] MEDS: MEMANTINE HCL 5 MG TAB PO SCH (09:12)
[2020-07-17] MEDS: AVODART~ORDER AWAITING ACTION SCH ×3 (09:15→21:23)
--- NOTE | 2020-07-17 10:43 | Pulmonary Consultation ---
Date of Consultation July 17, 2020 Assessment & Plan (1) Recurrent left pleural effusion: Impression: This is a 65-year-old male that lives alone in [place]. He has a history of stage III lung cancer for which she has not received regular care. The patient does have recurrent left pleural effusion. While it has been lymphocytic with both prior thoracentesis, it is never revealed malignant cells. Patient does smoke 1/2 pack/day. He is followed in pulmonary clinic and was last seen by Dr. Mckay. Previous thoracentesis includes June [address] Poe and May [address] Mckay. Patient was found to be positive for COVID-19. He was empirically started on remdesivir, dexamethasone, enoxaparin, and azithromycin. He is on chronic supplemental home O2 at 5 L/min via nasal cannula. He is desaturating while this hospital stay. Recommendations: 1. Recurrent left pleural effusion: Previous thoracentesis by Dr. Mckay 05/06/2020 with lymphocytes and mesothelial cells but no malignant cells appreciated. At this point the patient is amenable to thoracentesis. We did discuss possibility Pleurx catheter with Dr. Mckay. At this point he feels that he would be at high risk for infection in light of his active COVID-19 and independent living. Patient is consentable. We will plan on thoracentesis la ter today. Patient is on enoxaparin for COVID-19 50 mg subcutaneously. He is on no other anticoagulant or antiplatelet agent. Platelet count is 116,000. INR is 1.0 2. COVID-19: Patient reports symptoms for the last 6 to 7 days. Positive findings on admission 07/16/2020. Patient was started on remdesivir. Would recommend stopping remdesivir as there is increased mortality with patients that are more than 72 hours with symptoms. Patient also started on dexamethasone. Will continue this for 10 days or until point of discharge. Would also not recommend convalescent plasma at this time as patient has had symptoms for a week. Patient was started on enoxaparin per Covid orders at 50 mg subcutaneously every 12 hours. No indication for antibiotics at this point. Would discontinue azithromycin. May consider procalcitonin trending. At this point procalcitonin is not elevated. Continue supportive care for COPD as well as COVID-19. 3. COPD: Patient follows with Dr. Mckay in the outpatient setting. Recently started on Trelegy (ICS, AC, LABA) continue Anoro Ellipta (AC, LABA) and fluticasone (ICS) while inpatient. We will also continue DuoNebs for shortness of breath and bronchospasm. Continue to trend oxygenation. Patient is chronically on 5 L/min via nasal cannula at home. Target SaO2 at 88 to 92%. No indication for antibiotics prophylactically in the setting of positive Covid findings contributing to shortness of breath. Most recent pulmonary function testing was from February 2019. Per Dr. Mckay's note this did not demonstrate overt findings of COPD. Further pulmonary function testing at the recommendation of outpatient clinic. 4. Stage III adenocarcinoma: Patient continues to smoke 1/2 pack of cigarettes per day. Encourage patient to consider abstinence. Patient has not had regular follow-up for his malignancy. He was not interested in discussing this at this time. We will have further discussion with him regarding cancer follow-up. Outpatient follow-up recommended. Thank you very much for including us in the care of this patient. We will plan on thoracentesis later today. Please refer to Dr. Morin's addendum for cor rections and other recommendations. (2) COVID-19: (3) COPD (chronic obstructive pulmonary disease) with chronic bronchitis: (4) CKD (chronic kidney disease) stage 2, GFR 60-89 ml/min: (5) History of lung cancer: (6) Pulmonary nodule: Supervising Physician Co-Signing Physician Notes Patient seen and examined. Discussed with BALDOMERO anguiano. Agree with assessment and plan as noted. Reviewed with patient's outpatient big data hadoop developer. Would not recommend Pleurx catheter at this point time. Unclear etiology for the patien t's recurrent left-sided pleural effusion. Patient with recurrent pleural effusion. Previously was lymphocytic exudate. Cytology was negative. Fluid appears to have reaccumulated over about 10 weeks. He also was found to be positive for novel coronavirus. Patient is doing reasonably well clinically. Continue supplemental oxygen. The patient underwent ultrasound-guided catheter directed thoracentesis for removal of about 1700 mL of clear yellow fluid. Await pleural fluid studies. Follow-up imaging is pending. He states he did feel better after his last thoracentesis. The patient is not bronchospastic currently so we will continue current inhaler regiment. Dexamethasone for acute Covid pneumonia. The patient has been symptomatic for over a week so would not recommend convalescent plasma at this point time. Remdesivir also not likely to be beneficial to inhibit viral replication. No signs of secondary infection. Would not recommend antibiotics in the absence of clear infection at this point time. Additional recommendations will depend on results of follow-up imaging post thoracentesis and analysis of pleural fluid studies. History of Present Illness Attending Physician: Raj Mcclain MD History of Present Illness Attending: Dr. Morin This is a 65-year-old male with a past medical history including chronic kidney disease stage II, acute COVID-19, COPD, prediabetes with a hemoglobin A1c of 5.9, lung cancer, hepatic steatosis, ataxic gait, bilateral carotid artery occlusion, peripheral arterial disease, recurrent left pleural effusion, esophageal stenosis, history of esophagitis, hiatal hernia, memory loss, peripheral neuropathy, mesenteric lymphadenitis, ischemic pain of right lower extremity, tobacco abuse current everyday user 1/2 pack/day. The patient follows with PETE Sebastian in [place]. He resides on the second floor of the [facility]. He was brought to the emergency room by EMS yesterday because of shortness of breath. Apparently his landlord and caregiver called due to concern for Covid. He reported yesterday had not been feeling well for least a week. Patient was tested and found to be positive for COVID- 19. He was started on dexamethasone, remdesivir, azithromycin. He is on Trelegy at home. He was placed on Anoro Ellipta and fluticasone furoate. Patient was also started on enoxaparin 50 mg subcutaneously every 12 hours for prophylaxis. Patient is a fairly poor historian. He does state that he has no acute shortness of breath this morning. On my arrival in the room the patient was saturating 67%. Nasal cannula was in place but oxygen was not turned on at the regulator. I adjusted the regulator to 6 L/min and patient saturated within 2 minutes to 90%. Within 3 minutes he was at 100% SaO2. The patient is on chronic supplemental O2 at home at 5 L/min. He denied any chest pain or shortness of breath. He is not aware of any arrhythmias. He denies any significant cough or sputum production. With deep inspiration he did have cough. He had no conversational dyspnea. He denies fever. He had no night sweats last night. He has no other acute complaints at this time. Allergies Allergy/AdvReac Type Severity Reaction Status Date / Time Cipro Allergy Intermediate RASH Verified 12/25/17 10:51 ciprofloxacin Allergy Intermediate RASH Verified 07/16/20 18:01 vancomycin Allergy Intermediate RASH Verified 07/16/20 18:01 sulfamethoxazole Allergy Unknown Unknown Verified 07/16/20 18:01 [From Bactrim] trimethoprim [From Bactrim] Allergy Unknown Unknown Verified 07/16/20 18:00 Home Medications Medication Instructions Recorded Confirmed Type acetaminophen 500 mg capsule 500 mg PO Q6H PRN 02/02/18 07/16/20 History ascorbic acid (vitamin C) 500 mg 500 mg PO BID cap 02/02/18 07/16/20 History capsule melatonin 5 mg capsule 5 mg PO HS PRN cap 02/02/18 07/16/20 History cholecalciferol (vitamin D3) 25 1,000 units PO DAILY 04/03/18 07/16/20 History mcg (1,000 unit) capsule ibuprofen 600 mg tablet 600 mg PO Q6H PRN #90 tab 01/08/19 07/16/20 Rx albuterol sulfate 90 mcg/actuation 2 puffs INH QID PRN #18 gm 01/29/19 07/16/20 Rx aerosol inhaler divalproex 500 mg tablet,delayed 1,000 mg PO QAM tab 01/29/19 07/16/20 History release docusate sodium 100 mg capsule 100 mg PO DAILY PRN cap 01/29/19 07/16/20 History bupropion HCl 100 mg tablet 100 mg PO DAILY #90 tab 08/09/19 07/16/20 Rx metoprolol succinate 25 mg 25 mg PO DAILY #90 tab 08/15/19 07/16/20 Rx tablet,extended release 24 hr dutasteride 0.5 mg capsule 0.5 mg PO DAILY #90 cap 02/04/20 07/16/20 Rx ketoconazole 2 % topical cream 1 applic TOP DAILY #90 g 02/12/20 07/16/20 Rx fluticasone fur. 100 mcg-umeclid 1 inh INHALATION Q24H #60 ea 06/20/20 07/16/20 Rx 62.5 mcg-vilant 25 mcg inhalat.powder divalproex 250 mg PO HS 07/16/20 07/16/20 History omeprazole 20 mg PO DAILY 07/16/20 07/16/20 History quetiapine 50 mg PO DAILY 07/16/20 07/16/20 History Patient History Medical History Acute exacerbation of chronic obstructive pulmonary disease (COPD) Adenocarcinoma, lung (01/2016) Ataxic gait Benign prostate hyperplasia Bilateral carotid artery occlusion Bipolar disorder Chlamydial proctitis Chronic rhinitis COPD (chronic obstructive pulmonary disease) with chronic bronchitis Diabetic ulcer of toe of right foot, limited to breakdown of skin Esophageal stenosis Esophagitis H/O cardiac pacemaker Hepatic steatosis Hiatal hernia History of lung cancer (01/2016) 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 Homicidal ideation Hypertension Hyponatremia Memory loss Mesenteric lymphadenitis Osteomyelitis Peripheral arterial disease Pressure ulcer of left heel, stage 3 Pressure ulcer of right heel, stage 4 Pulmonary nodule Recurrent left pleural effusion s/p thoracentesis August 2018 Schizoaffective disorder Surgical History History of bronchoscopy (01/2016) History of shoulder surgery S/P peripheral artery angioplasty with stent placement (06/2016) LLE BOILER BLOWER, 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 S/P thoracentesis (05/2019) L pleural effusion Status post femorofemoral bypass surgery (06/2016) Family History Brother Myocardial infarction Father Myocardial infarction Other Cancer Family history non-contributory Lung disease Denies family history of Tuberculosis Ovarian cancer Prostate cancer Diabetes Heart disease Allergies Breast cancer Emphysema, unspecified Lung cancer Colorectal cancer Asthma Social History Smoking Status: Current every day smoker Tobacco Type: Cigarettes packs per day: 2; Years Smoked: 30; Cigarettes Per Day: 1/2 pk/day; Second Hand Exposure: Yes; Hx Alcohol Use: Yes Alcohol type: beer Hx Substance Use: Yes Last Used Substance: Hours (ago) Last Used Substance Other:: 12 hours ago Preferred Language: [place]an Communication Ability: Effective Visual Impairment: No Limitations Hearing Ability: Normal Chairman Ceo Required: No Beliefs That Will Affect Care: None marital status: Single Current Living Situation: Alone current occupational status: disabled Feels Safe at Home: Yes Safety Concerns: Feels Safe At This Time Childhood Exposure to Second-Hand Smoke: Yes Diet Comment: regular caffeine: Yes (coffee 1 pot a day) Dental Care, Regularly: No Physical Activity Frequency: Does not Exercise Seatbelt Use: always Sunscreen Use: No Assistive Devices: Glasses Review of Systems Review of Systems: All systems reviewed & are unremarkable except as noted in HPI & below Physical Exam Physical Exam: GENERAL : No acute distress. Sitting in bed. SaO2 67%. No respiratory distress. EYES: No icterus, gaze conjugate. Pupils equal round and reactive to light NOSE: No evidence of epistaxis. Nasal cannula is in place and secure MOUTH: No lesions or candidiasis. Mucosa is moist NECK: Supple LUNGS: Scattered bronchospasm. Decreased breath sounds at the left base. Rhonchi in the upper [place]. HEART: Regular, rate controlled ABDOMEN: Soft, NT, ND, BS Present EXTREMITIES: No LE edema, pedal pulses intact NEURO: A&OX3 Results & Data Results & Data ([facility]) Vital Signs (Past 12 Hours) Vital Signs Temp Pulse Resp BP Pulse Ox 07/17/20 07:33 80 16 97 07/17/20 07:13 36.8 C 76 19 110/64 96 07/17/20 01:45 36.7 C 85 20 132/64 94 Laboratory Results 07/17/20 06:07 07/17/20 06:[address] ANGIOGRAPHY OF THE CHEST, PULMONARY EMBOLUS PROTOCOL CLINICAL HISTORY: Shortness of breath. Covid. History of lung carcinoma. COMPARISON STUDY: Chest CT March 24, 2020. Chest radiograph performed earlier today. TECHNIQUE: Following IV administration of 120 mL of Optiray-320, helical axial images of the chest were obtained utilizing the pulmonary embolus protocol. Maximal intensity projections and sagittal and coronal reformats were viewed on an independent 3D workstation. IV contrast was administered without complication. Automated exposure control was utilized for the study. A dose lowering technique was utilized adhering to the principles of ALARA. CT DOSE: 619.83 mGycm FINDINGS: No pulmonary emboli are identified although the segmental and subsegmental pulmonary arteries are suboptimally assessed due to respiratory motion. The size of the heart is normal. There is no pericardial effusion. Extensive coronary artery calcification is noted. There is no thoracic aortic dissection. The proximal bilateral common carotid arteries are occluded. This was shown on prior exam of March 24, 2020. A large left pleural effusion has mildly increased in size since CT of March 24, 2020. There is a trace right pleural effusion. There is no pneumothorax. Bilateral perihilar consolidation with air bronchograms is unchanged. This favors postradiation change. Moderate multifocal bilateral ground glass opacities have developed. Lungs are suboptimally assessed due to respiratory motion. There is no thoracic lymphadenopathy. Old bilateral rib deformities are present. Upper abdomen is unremarkable. IMPRESSION: 1. No pulmonary emboli identified although segmental and subsegmental pulmonary arteries suboptimally assessed due to respiratory motion. 2. Large left pleural effusion, mildly increased in size since CT of March 24, 2020. Trace right pleural effusion. 3. Interval development of moderate multifocal groundglass opacities consistent with an infectious process. 4. No significant change in bilateral perihilar consolidation with air bronchograms. The findings favor post radiation change. SINGLE VIEW CHEST CLINICAL HISTORY: Sepsis. FINDINGS: An AP, portable, upright chest radiograph is compared to study dated 06/20/2020 and correlated with chest CT dated 03/24/2020. The examination is degraded by portable technique and apical lordotic positioning. The cardiomediastinal silhouette is unremarkable, noting atherosclerotic calcification of the thoracic aorta. There is prominence of the pulmonary vasculature. Bilateral paramediastinal fibrosis is similar to previous. There is a layering left pleural effusion with associated left basilar consolidation. There is a small pleural effusion on the right with right basilar consolidation. No pneumothorax is seen. The skeletal structures are osteopenic. There are chronic left-sided rib fractures. IMPRESSION: 1. Left larger than right pleural effusions with bibasilar consolidation. This could represent atelectasis versus an infectious/inflammatory pneumonitis. Clinical correlation will be required. 2. There is prominence of the pulmonary vasculature. Correlate clinically for evidence of congestive change. 3. Chronic parenchymal changes and paramediastinal fibrosis are similar to previous. PG Care Time/CCT Total # of Minutes Spent Total Time Spent with Patient: Total time spent is greater than 50% in coordination of care (as documented) at patient's floor/unit and/or counseling patient: Coding Level of Care Code 21003 Inpt Consult Level 5 Medical Decision Making Moderate Complexity Diagnoses Recurrent left pleural effusion J90 COVID-19 U07.1 COPD (chronic obstructive pulmonary disease) with chronic bronchitis J44.9 CKD (chronic kidney disease) stage 2, GFR 60-89 ml/min N18.2 History of lung cancer Z85.118 Pulmonary nodule R91.1 Time Spent (min) 60
[2020-07-17] MEDS ORDERED: ALBUTEROL HFA 8 GM INHALER INH PRN (11:00)
--- NOTE | 2020-07-17 14:04 | Hospitalist Progress Note ---
Date of Service July 17, 2020 Assessment & Plan (1) COVID-19: Patient hypoxic, though per pulmonology notes, he has chronic hypoxemic respiratory failure. - Convalescent plasma declined by patient & also not indicated. - Stop remdesivir due to late time to presentation. - Continue dexamethasone 6 mg PO daily x 10 days total (End date: 07/25/2019) - Oxygen therapy titrate for SPO2 88-92 - Assist with self-rotation and self-proning through out day. (2) Acute exacerbation of chronic obstructive pulmonary disease (COPD): GOLD 2D with last FEV1. - Trelegy with Albuterol - Schedule DEE MDI for 24-48 hours if needed for dyspnea - Transition to Decadron 6 mg for 10 days---> continue PPI - Keep SPO2 88-92%. Patient is amendable to NC and HFNC. (3) Chronic hypoxemic respiratory failure: Due to COPD and hx of lung cancer. Uses 5L NC at baseline per pulmonary notes. - As above (4) Recurrent left pleural effusion: Possibly due to hx of lung cancer. Has been recurrent. - Pulmonary following - Plan for thoracentesis today. (5) History of lung cancer: As above. Recent thoracenteses have not demonstrated recurrent cancer. (6) Bilateral carotid artery occlusion: No acute changes in patient mentation. Follows with Dr. Ac as outpatient. Perfusion through vertebral arteries. - Vascular surgery note from 11/2019 indicates he was on ASA 81 mg daily at that time. Not on Plavix or a statin then. - Will ask patient re: ASA and consider restarting (7) CKD (chronic kidney disease) stage 2, GFR 60-89 ml/min: Baseline Cr. ~1.0, eGFR ~75. - Follow Cr. - Avoid nephrotoxic agents (8) Peripheral arterial disease: Hx of femerofermeral bypass which was patent on last check. Left leg SFA occlusion and moderate disease with no symptoms, so no action was taken in 11/2019. - As above (9) Esophagitis: No present symptoms. - Continue PPI (10) DVT prophylaxis: Lovenox 40 mg SQ Q12h Admission and Anticipated Discharge Date Admission Date: July 16, 2020 Subjective Reports feeling better than when he came in. Still with some shortness of breath. Reports no fevers/chills, chest pain, abdominal pain, nausea, or vomiting. Physical Exam Constitutional: WD/WN, vitals as above Eyes: EOM intact bilaterally; no conjunctival abnormality ENMT: external ear and nose normal, oropharynx normal Neck: trachea midline, no thyromegaly normal visual inspection Respiratory: normal respiratory effort, lungs clear to auscultation no respiratory distress Cardiovascular: RRR, no murmur, no edema Gastrointestinal (Abdomen): Inspection/Auscultation: abdomen normal to inspection; abdomen not distended Musculoskeletal: no cyanosis or clubbing, extremities motor strength 5/5 Skin: no rashes, warm and dry Neurologic: moves all extremities and awake Psychiatric: Orientation: alert, oriented to person and cooperative Results & Data Results & Data ([facility]) Vital Signs (Past 12 Hours) Vital Signs Temp Pulse Resp BP Pulse Ox 07/17/20 07:33 80 16 97 07/17/20 07:13 36.8 C 76 19 110/64 96 PG Care Time/CCT Total # of Minutes Spent Total Time Spent with Patient: Total time spent is greater than 50% in coordination of care (as documented) at patient's floor/unit and/or counseling patient: Coding Level of Care Code 30546 Subseq Hosp Care Lvl 3 Diagnoses COVID-19 U07.1 Acute exacerbation of chronic obstructive pulmonary disease (COPD) J44.1 Chronic hypoxemic respiratory failure J96.11 Recurrent left pleural effusion J90 History of lung cancer Z85.118 Bilateral carotid artery occlusion I65.23 CKD (chronic kidney disease) stage 2, GFR 60-89 ml/min N18.2 Peripheral arterial disease I73.9 Esophagitis K20.9 DVT prophylaxis Z29.9
--- NOTE | 2020-07-17 14:04 | Procedure Note ---
Procedure Note Date of Service July 17, 2020 Procedure: Diagnostic therapeutic ultrasound-guided catheter thoracentesis Stripper And Taper: Dr. Doug Morin Indication: Pleural effusion Consent: Signed by patient and verified with timeout prior to procedure Anesthesia: 10 mL's 1% lidocaine without epinephrine local. Procedure: Consent was verified and timeout performed. Appropriate imaging studies were reviewed prior to the procedure. Patient was placed in a seated position and limited thoracic ultrasound was performed of the left chest. See separate imaging. A large pleural effusion was identified with compressive atelectasis. Site appropriate for thoracentesis was selected. The skin was prepped and draped in normal sterile fashion. Lidocaine was used for local analgesia. Fluid was aspirated via the finder needle. A small skin marie was made with the scalpel and the catheter over the needle apparatus was advanced over the rib into the pleural space. Using the syringe one-way valve system, a total of 1650 mL's of yellow clear fluid was removed. Procedure was terminated due to patient coughing and inability to drain any additional fluid. The catheter was removed and observed to be intact. A sterile dressing was applied. Post procedure chest x-ray was ordered. Fluid was sent for cytology, cell count differential, Gram stain and culture, pH, LDH, glucose, total protein. The patient tolerated the procedure well without obvious complication Coding CPT Codes Pulmonary/Thoracic - Pulmonary and Thoracic: 03469 Thoracentesis w imaging ([id number]) [facility] [place] Codes (Charges) Pulmonary/Thoracic Procedure 1: Pulmonary and Thoracic: 39027 Thoracentesis w imaging
--- NOTE | 2020-07-17 14:21 | XRay Report ---
SINGLE VIEW CHEST CLINICAL HISTORY: Status post thoracentesis. FINDINGS: An AP, portable, upright chest radiograph is compared to chest x-ray and chest CT dated 07/07. The examination is degraded by portable technique and apical lordotic positioning. The cardio mediastinal silhouette is unremarkable noting atherosclerotic calcification of the thoracic aorta. Th ere are small pleural effusions with bibasilar consolidation. The left pleural effusion has decreased in size from yesterday. Bilateral perihilar fibrosis is unchanged. No pneumothorax is seen. The skel etal structures are osteopenic. There are healed bilateral rib fractures. IMPRESSION: 1. No pneumothorax is identified post procedure. 2. Small pleural effusions with bibasilar consolidation. The left pleural effusion has decreased in s ize from yesterday. 3. Additional chronic parenchymal changes are similar to previous. ACT 112: Negative or not required by law. Electronically signed by: Tomy Thompson M.D. 07/17/2020 2:20 PM
[2020-07-17 14:51] LABS: Glucose Pleural Fluid 121 mg/dl
[2020-07-17 14:58] LABS: LDH Pleural Fluid 242 U/L; Total Protein Pleural Fluid 5.5 g/dl
[2020-07-17 15:15] LABS: Appearance Pleural Fluid CLEAR; Color Pleural Fluid YELLOW; RBC Pleural Fluid (A) < 3000 /uL; Source Pleural Fluid LEFT LUNG; WBC Pleural Fluid (A) 1638 /uL
[2020-07-17 16:31] LABS: Basophils, Fluid 0 %; Eosinophils, Fluid 0 %; Lymphocytes, Fluid 84 %; Mono,Macrophage,Mesothelial 16 %; Neutrophils, Fluid 0 %
[2020-07-17] MEDS ORDERED: NORMOSOL-R 500 ML IV ONE (17:57)
--- NOTE | 2020-07-17 19:34 | XRay Report ---
SINGLE VIEW CHEST CLINICAL HISTORY: Status post thoracentesis. FINDINGS: An AP, portable, upright chest radiograph is compared to chest x-ray performed earlier the same day 07/17/2020 and correlated with chest CT dated 07/16/2020. The examination is degraded by willis ble technique, patient rotation, and apical lordotic positioning. The cardiomediastinal silhouette is unremarkable noting atherosclerotic calcification of the thoracic aorta. There are small pleural eff usions with bibasilar consolidation. Bilateral perihilar fibrosis is unchanged. No pneumothorax is se en. The skeletal structures are osteopenic. There are healed bilateral rib fractures. IMPRESSION: 1. No pneumothorax is identified. 2. Small pleural effusions with bibasilar consolidation. 3. Chronic parenchymal changes are similar to previous. ACT 112: Negative or not required by law. Electronically signed by: Tomy Thompson M.D. 07/17/2020 7:32 PM
[2020-07-17] MEDS: ENOXAPARIN INJ 40 MG/0.4 ML SYR SQ SCH (19:36)
[2020-07-17] MEDS ORDERED: REMDESIVIR 100 MG in SODIUM CHLORIDE 0.9% 230 ML IV SCH (20:00)
[2020-07-17] MEDS ORDERED: AZITHROMYCIN 250 MG TAB PO SCH (21:00)
[2020-07-18 08:04] LABS: Base Excess VBG 0.3 mEq/L; HCO3 VBG 26 mmol/L; Oxygen Saturation VBG < 60.0 %; PCO2 VBG 48 mmHg (38-50); PO2 VBG 26 mmHg; pH VBG 7.36 (7.36-7.41)
[2020-07-18 08:17] LABS: BUN Creatinine Ratio 28.3 (10-20); Calcium 8.6 mg/dl (8.5-10.1); Creatinine Clr Calc Pharmacy 87.9 ml/min; Est GFR (African American) 100.1; Est GFR (Non-African American) 86.4; Magnesium 2.3 mg/dl (1.8-2.4); Potassium 4.1 mmol/L (3.5-5.1)
[2020-07-18 08:30] LABS: Hematocrit (blood only) 32.6 % (42-52); Hemoglobin 11.1 g/dL (14.0-18.0); Mean Corpuscular Volume 85.1 fL (80-100); Mean Platelet Volume 10.5 fL (7.4-10.4); Platelet Count 157 K/uL (130-400); Red Blood Count 3.83 M/uL (4.7-6.1); White Blood Count 7.06 K/uL (4.8-10.8)
[2020-07-18] MEDS: MEMANTINE HCL 5 MG TAB PO SCH (08:59)
[2020-07-18] MEDS: TAMSULOSIN HCL 0.4 MG CAP PO SCH (08:59)
[2020-07-18] MEDS: DONEPEZIL HCL 10 MG TAB PO SCH (08:59)
[2020-07-18] MEDS: NICOTINE 14 MG/24 HR PATCH TD SCH (08:59)
[2020-07-18] MEDS ORDERED: dexAMETHasone 1 MG TAB PO SCH (09:00)
[2020-07-18] MEDS: BENZTROPINE MESYLATE 1 MG TAB PO SCH (09:04)
[2020-07-18] MEDS: ASCORBIC ACID 500 MG TAB PO SCH (09:04)
[2020-07-18] MEDS: CHOLECALCIFEROL 1,000 UNITS 25 MCG TAB PO SCH (09:04)
[2020-07-18] MEDS: DIVALPROEX DELAY RELEASE 500 MG TAB PO SCH (09:04)
[2020-07-18] MEDS: buPROPion HCl 100 MG TABLET PO SCH (09:04)
[2020-07-18] MEDS: METOPROLOL SUCC 25MG EXT REL TAB PO SCH (09:05)
[2020-07-18] MEDS: GABAPENTIN 100 MG CAP PO SCH (09:05)
[2020-07-18] MEDS: AVODART~ORDER AWAITING ACTION SCH (09:08)
[2020-07-18] MEDS: UMECLIDINIUM/VILANTEROL 62.5/25MCG 7 PUFFS/INHALER INH SCH (09:10)
[2020-07-18] MEDS: FLUTICASONE FUROATE 100MCG 14 PUFFS/INHALER INH SCH (09:10)
[2020-07-18] MEDS: ENOXAPARIN INJ 40 MG/0.4 ML SYR SQ SCH (09:12)
[2020-07-18] MEDS: KETOCONAZOLE 2% CR 15 GM TUBE EXT SCH (09:13)
--- NOTE | 2020-07-18 11:18 | Pulmonology Progress Note ---
Date of Service July 18, 2020 Assessment & Plan (1) Recurrent left pleural effusion: Impression: This is a 65-year-old male that lives alone in [place]. He has a history of stage III lung cancer for which she has not received regular care. The patient does have recurrent left pleural effusion. While it has been lymphocytic with both prior thoracentesis, it is never rev ealed malignant cells. Patient does smoke 1/2 pack/day. He is followed in pulmonary clinic and was last seen by Dr. Mckay. Previous thoracentesis includes June [address] Poe and May [address] Mckay. Patient was found to be positive for COVID-19. He was empirically started on remdesivir, dexamethasone, enoxaparin, and azithromycin. He is on chronic supplemental home O2 at 5 L/min via nasal cannula. He is desaturating while this hospital stay. Recommendations: 1. Recurrent left pleural effusion: Thoracentesis yesterday with removal of eulalio roximately 1700 mL. The patient had significant improvement in his dyspnea and is now on room air. Cytology is pending. Fluid again appears to be a lymphocytic exudate. Patient can follow-up in the pulmonary clinic with Dr. Malik for long-term strategy and to follow-up on the pleural fluid cytology 2. COVID-19: Patient is now on room air so dexamethasone can be discontinued. 3. COPD: Patient follows with Dr. Mckay in the outpatient setting. Recently started on Trelegy (ICS, AC, LABA) continue Anoro Ellipta (AC, LABA) and fluticasone (ICS) while inpatient. We will also continue DuoNebs for shortness of breath and bronchospasm. Continue to trend oxygenation. Patient is chronically on 5 L/min via nasal cannula at home. Target SaO2 at 88 to 92%. No indication for antibiotics prophylactically in the setting of positive Covid findings contributing to shortness of breath. Most recent pulmonary function testing was from February 2019. [address] Dr. Mckay's note this did not demonstrate overt findings of COPD. Further pulmonary function testing at the recommendation of outpatient clinic. 4. Stage III adenocarcinoma: Patient continues to smoke 1/2 pack of cigarettes per day. Encourage patient to consider abstinence. Patient has not had regular follow-up for his malignancy. He was not interested in discussing this at this time. We will have further discussion with him regarding cancer follow-up. Outpatient follow-up recommended. Discussed with hospitalist. Will sign off at this point time. Feel free to contact us if we can be of additional assistance (2) COVID-19: (3) COPD (chronic obstructive pulmonary disease) with chronic bronchitis: (4) CKD (chronic kidney disease) stage 2, GFR 60-89 ml/min: (5) History of lung cancer: (6) Pulmonary nodule: Admission and Anticipated Discharge Date Admission Date: July 16, 2020 Subjective Patient seen and examined. EMR reviewed. The patient states that he feels better after the thoracentesis. He is off oxygen. He is sitting up in a chair. He is eating and drinking. He is not coughing or expectorating phlegm. He does not report any wheezing. Review of Systems Review of Systems: All systems reviewed & are unremarkable except as noted in HPI & below Physical Exam Constitutional: WD/WN, vitals as above Eyes: EOM intact bilaterally; no conjunctival abnormality ENMT: external ear and nose normal, oropharynx normal Neck: trachea midline, no thyromegaly normal visual inspection Respiratory: normal respiratory effort, lungs clear to auscultation no respiratory distress Cardiovascular: RRR, no murmur, no edema Gastrointestinal (Abdomen): Inspection/Auscultation: abdomen normal to inspection; abdomen not distended Musculoskeletal: no cyanosis or clubbing, extremities motor strength 5/5 Skin: no rashes, warm and dry Neurologic: moves all extremities and awake Psychiatric: Orientation: alert, oriented to person and cooperative Results & Data Results & Data ([facility]) Vital Signs (Past 12 Hours) Vital Signs Temp Pulse Resp BP BP Pulse Ox 07/18/20 07:05 36.5 C 74 18 89/70 L 99 07/18/20 06:18 99 07/17/20 23:39 36.7 C 74 16 93/61 L 97 Laboratory Results 07/18/20 07:44 07/18/20 07:44 Diagnostic Findings Post procedure chest x-ray from yesterday was independently reviewed. No pneumothorax. Small bilateral pleural effusions noted, but significant improvem ent in the previously noted left side effusion. PG Care Time/CCT Total # of Minutes Spent Total Time Spent with Patient: Total time spent is greater than 50% in coordination of care (as documented) at patient's floor/unit and/or counseling patient: Coding Level of Care Code 23005 Subseq Hosp Care Lvl 2 Diagnoses Recurrent left pleural effusion J90 COVID-19 U07.1 COPD (chronic obstructive pulmonary disease) with chronic bronchitis J44.9 CKD (chronic kidney disease) stage 2, GFR 60-89 ml/min N18.2 History of lung cancer Z85.118 Pulmonary nodule R91.1
--- NOTE | 2020-07-18 17:37 | Discharge Summary ---
Date of Service July 18, 2020 Admission HPI Per Admitting Provider 65 YOM with significant history of NSCLC stage III, PAD/PVD with fem-fem bypass, bilateral carotid occlusions(perfusion is done through is verts), HTN, COPD, BPH, bipolar disorder and chronic recurrent left pleural effusion. Patient lung cancer was IIIA adenocarcinoma and received chemo and radiation. He has had multiple draining of this left pleural effusion and most recently done last week that did not show any metastasis. The patient has COPD, continues to smoke and be short of breath. He has been transitioned to Trelegy daily and Albuterol prn and prednisone daily following a prednisone taper at the end of November for a COPD exacerbation. He was brought to the emergency room today by EMS because his landlord/caregiver called them secondary to him not being able to breathe. Patient had two low SPO2 readings in the EMD <86%. The patient has not been feeling well for the past week with "feeling like COVID" he received 125 mg methylpred in the EMD as well as a COVID test. COVID (+). Patient wishes to be a DNR/DNI. He will be admitted for COVID treatment/monitoring, oxygenation support, and COPD exacerbation in the setting of COVID. Principal Diagnosis Pleural effusion Covid-19 Discharge Exam Constitutional WD/WN, vitals as above Eyes EOM intact bilaterally; no conjunctival abnormality ENMT external ear and nose normal, oropharynx normal Neck trachea midline, no thyromegaly normal visual inspection Respiratory normal respiratory effort, lungs clear to auscultation no respiratory distress Cardiovascular RRR, no murmur, no edema Gastrointestinal (Abdomen) Inspection/Auscultation: abdomen normal to inspection; abdomen not distended Musculoskeletal no cyanosis or clubbing, extremities motor strength 5/5 Skin no rashes, warm and dry Neurologic moves all extremities and awake Psychiatric Orientation: alert, oriented to person and cooperative Discharge Data Allergies Allergy/AdvReac Type Severity Reaction Status Date / Time Cipro Allergy Intermediate RASH Verified 12/25/17 10:51 ciprofloxacin Allergy Intermediate RASH Verified 07/16/20 18:01 vancomycin Allergy Intermediate RASH Verified 07/16/20 18:01 sulfamethoxazole Allergy Unknown Unknown Verified 07/16/20 18:01 [From Bactrim] trimethoprim [From Bactrim] Allergy Unknown Unknown Verified 07/16/20 18:00 Consultations 07/16/20 16:23 ED Decision to Admit Stat 07/16/20 20:48 Consult Pulmonology Routine Ordered Studies 07/16/20 12:57 CT angio chest PE protocol Stat 07/17/20 12:57 US point of care ultrasound Routine Hospital Course (1) Recurrent left pleural effusion: Possibly due to hx of lung cancer. Has been recurrent. - Pulmonary following - Thoracentesis on 07/17 essentially resolved all shortness of breath, so as likely as anything, this was etiology of his shortness of breath. Continued steroids for Covid just in case this was playing a role. On discharge, he was comfortably breathing on room air. Plan to follow up with Dr. Mckay for cytology. (2) COVID-19: Patient hypoxic, though per pulmonology notes, he has chronic hypoxemic respiratory failure. - Convalescent plasma declined by patient & also not indicated. - Stop remdesivir due to late time to presentation. - Continue dexamethasone 6 mg PO daily x 10 days total -> Prescription sent to the pharmacy on discharge. - Oxygen therapy titrate for SPO2 88-92 -> On room air at discharge which he reports is usually what he wears at home. (3) Acute exacerbation of chronic obstructive pulmonary disease (COPD): GOLD 2D with last FEV1. - Trelegy with Albuterol - Schedule DEE MDI for 24-48 hours if needed for dyspnea - Transition to Decadron 6 mg for 10 days---> continue PPI - Keep SPO2 88-92%. (4) Chronic hypoxemic respiratory failure: Due to COPD and hx of lung cancer. Uses 5L NC at baseline per pulmonary notes. - As above (5) History of lung cancer: As above. Recent thoracenteses have not demonstrated recurrent cancer. (6) Bilateral carotid artery occlusion: No acute changes in patient mentation. Follows with Dr. Ac as outpatient. Perfusion through vertebral arteries. - Vascular surgery note from 11/2019 indicates he was on ASA 81 mg daily at that time. Not on Plavix or a statin then. (7) CKD (chronic kidney disease) stage 2, GFR 60-89 ml/min: Baseline Cr. ~1.0, eGFR ~75. - Follow Cr. - Avoid nephrotoxic agents (8) Peripheral arterial disease: Hx of femerofermeral bypass which was patent on last check. Left leg SFA occlusion and moderate disease with no symptoms, so no action was taken in 11/2019. - As above (9) Esophagitis: No present symptoms. - Continue PPI (10) DVT prophylaxis: Lovenox 40 mg SQ Q12h Total Time Total Time Spent Total Time Spent (In Minutes): 35 Discharge Plan Discharge Items Patient Disposition: Home - Home Health Services Reason For Visit: COVID Discharge Diagnosis: Covid-19 Large pleural effusion Activity: Resume your previous activity Non-emergency contact: Primary Care Provider and [employer] Call non-emergency contact if: your symptoms worsen Follow-up/Referrals: John Johnson CRNP [Primary Care Provider] - 07/23/20 8:20 am (telephone visit) James Mckay MD [Physician] - 08/08/20 10:00 am (Please see Dr. Mckay in 1-2 weeks for results of your testing from the drainage of the fluid by your lung.) Diet: Heart Healthy Addtl Attending Provider Instructions: Mr. Luther, You were admitted with shortness of breath. This was possibly due to Covid, a COPD exacerbation, or most likely the recurrent fluid in your lung. The pulmonary doctor took the fluid off, and you felt better almost right away. There are pending results from that fluid, and we encourage you to follow up with Dr. Mckay in the clinic. Please take the steroids for 7 more days after you get home to be sure you are feeling better from Covid. Pending Studies at Discharge: No Stand-Alone Forms: [employer], Smoking Cessation Medications and DC Order Prescriptions: New dexamethasone 6 mg tablet 6 mg PO DAILY Qty: 7 RF: 0 Continued acetaminophen 500 mg capsule 500 mg PO Q6H PRN (Reason: fever or pain) RF: 0 melatonin 5 mg capsule 5 mg PO HS PRN (Reason: sleep) RF: 0 ascorbic acid (vitamin C) 500 mg capsule 500 mg PO BID RF: 0 cholecalciferol (vitamin D3) 1,000 unit capsule 1,000 units PO DAILY RF: 0 ibuprofen 600 mg tablet 600 mg PO Q6H PRN (Reason: pain) Qty: 90 RF: 2 bupropion HCl 100 mg tablet 100 mg PO DAILY Qty: 90 RF: 1 metoprolol succinate 25 mg tablet extended release 24 hr 25 mg PO DAILY Qty: 90 RF: 1 dutasteride 0.5 mg capsule 0.5 mg PO DAILY Qty: 90 RF: 1 ketoconazole 2 % cream 1 applic TOP DAILY Qty: 90 RF: 3 docusate sodium 100 mg capsule 100 mg PO DAILY PRN (Reason: Constipation) RF: 0 divalproex 500 mg tablet,delayed release (DR/EC) 1,000 mg PO QAM RF: 0 albuterol sulfate [Ventolin HFA] 90 mcg/actuation HFA aerosol inhaler 2 puffs INH QID PRN (Reason: shortness of breath or wheezing) Qty: 18 RF: 4 Trelegy Ellipta 100-62.5-25 mcg blister with device 1 inh inhalation Q24H Qty: 60 RF: 2 divalproex 250 mg tablet,delayed release (DR/EC) 250 mg PO HS RF: 0 omeprazole 20 mg capsule,delayed release(DR/EC) 20 mg PO DAILY RF: 0 quetiapine 50 mg tablet 50 mg PO DAILY RF: 0 Discharge Orders: Discharge Order (Routine); Ordered 07/18/20 Ordered By: Raj Mcclain Admission Data Admit Date/Time: 07/16/20 17:28 Attending Provider: Raj Mcclain Admit Provider: Justin Pelayo Primary Care Provider: John Johnson Other Providers: Doug Morin ; Raj Mcclain Other Interventions: Discharge Summary Assessment (RN) Last Done: 07/18/20 16:05 Coding Level of Care Code D/C Day Management >30 mins Diagnoses Recurrent left pleural effusion J90 COVID-19 U07.1 Acute exacerbation of chronic obstructive pulmonary disease (COPD) J44.1 Chronic hypoxemic respiratory failure J96.11 History of lung cancer Z85.118 Bilateral carotid artery occlusion I65.23 CKD (chronic kidney disease) stage 2, GFR 60-89 ml/min N18.2 Peripheral arterial disease I73.9 Esophagitis K20.9 DVT prophylaxis Z29.9
== END 2020-07-18 17:10 | disposition home health service (06) | DRG 177 ==
LOC: ED 12:32 → 3N 17:28 → SUATTDRO 17:28 → 3N 20:09

== ENCOUNTER 2021-03-17 15:20 | Inpatient (IN) ==
[2021-03-17] MEDS ORDERED: SODIUM CHLORIDE 0.9% 1000ML 1,000 ML IV ONE (15:37)
--- NOTE | 2021-03-17 16:03 | XRay Report ---
XR chest 1V portable HISTORY: 66 years-old Male SEPSIS acute sepsis COMPARISON: Chest radiograph 03/13/2021 TECHNIQUE: Portable AP view the chest FINDINGS: Cardiac silhouette is unchanged. Unchanged left greater than right pleural effusions. Persistent righ t perihilar opacities. No significant change of the left greater than right bilateral airspace opacit ies. Mildly progressed interstitial coarsening. No pneumothorax. Degenerative changes of the shoulder s and spine. Healed chronic left-sided rib fractures. Right shoulder rotator cuff calcific tendinosis . IMPRESSION: 1. Mildly progressed interstitial coarsening may represent pulmonary edema. 2. Otherwise stable exam with left greater than right pleural effusions and left lung predominant air space opacities. ACT 112: Negative or not required by law. The above report was generated using voice recognition software. It may contain grammatical, syntax o r spelling errors. Electronically signed by: Александр Moore M.D. 03/17/2021 4:02 PM
[2021-03-17 16:04] LABS: Eosinophils % (auto) 2.1 %; Hematocrit (blood only) 22.1 % (42-52); Hemoglobin 7.3 g/dL (14.0-18.0); Immature Granulocytes # (auto) 0.01 K/uL (0.00-0.02); Immature Granulocytes % (auto) 0.2 %; Lymphocytes % (auto) 10.5 %; Mean Corpuscular Hemoglobin 25.2 pg (25-34); Mean Corpuscular Volume 76.2 fL (80-100); Mean Platelet Volume 9.6 fL (7.4-10.4); Monocytes # (auto) 0.45 K/uL (0.11-0.59); Monocytes % (auto) 9.5 %; Neutrophils # (auto) 3.69 K/uL (1.4-6.5); Neutrophils % (auto) 77.7 %; Platelet Count 210 K/uL (130-400); RDW Coefficient of Variation 19.7 % (11.5-14.5); RDW Standard Deviation 55.2 fL (36.4-46.3); White Blood Count 4.75 K/uL (4.8-10.8)
[2021-03-17 16:08] LABS: Base Excess VBG -1.3 mEq/L; HCO3 VBG 24 mmol/L; Oxygen Saturation VBG < 60.0 %; PCO2 VBG 44 mmHg (38-50); PO2 VBG 23 mmHg; pH VBG 7.36 (7.36-7.41)
--- NOTE | 2021-03-17 16:08 | Emergency Department Note ---
Impression & Plan Weakness, Anemia, Pleural effusion, Acute hypotension ED Provider Note NAME: JAMARCUS PAYTON JR AGE: 66 SEX: M : 1955 ARRIVES VIA: Ambulance INFORMANT: Patient, EMS ED PROVIDER(S): Michael Hassan DO CHIEF COMPLAINT: Decreased blood pressure HPI: Patient is a 66-year-old male who presented to the emergency department for an evaluation of altered mental status and decreased blood pressure. The patient arrived via ambulance. He was recently in our facility for unrelated complaints. The patient is a history of frequent falls. He denies having any neck pain. He denies having any headaches. He states he has had some trouble breathing but has a history of known lung cancer. The patient has had no black or bloody bowel movements. The patient denies having any hemoptysis. The patient states his symptoms became very severe and 911 was called and the patient arrived via ambulance. He was evaluated by home health and this is who called the ambulance for him. He states he has been compliant with his outpati ent medicines. He also states he continues to smoke and use tobacco products. ROS: See above HPI for pertinent positives & negatives. A total of 10 systems re viewed and were otherwise negative. PAST MEDICAL HISTORY: See Below PAST SURGICAL HISTORY: See Below FAMILY HISTORY: See Below SOCIAL HISTORY: See Below HOME MEDICATIONS: See Below ALLERGIES: See Below VITALS: See Below PHYSICAL EXAMINATION: GENERAL: The patient is awake and alert. He is somewhat anxious appearing but overall comfortable. EARS, NOSE, MOUTH AND THROAT: The nose is without any evidence of any deformity. Mucous membranes are dry. NECK: The neck is nontender and supple. RESPIRATORY: Diminished breath sounds are noted in the left lung field. There is no tachypnea or conversational dyspnea. CARDIOVASCULAR: Regular rate and rhythm noted there no murmurs rubs or gallops normal S1 normal S2. GASTROINTESTINAL: The abdomen was soft and mildly distended. There is diffuse tenderness to palpation but no guarding rigidity. Rectal exam revealed brown stool which was heme negative. MUSCULOSKELETAL/EXTREMITIES: There is no evidence of gross deformity full range of motion is noted in the hips and shoulders. SKIN: Chronic venous stasis changes were noted. There was erythema in both lower extremities. Skin is warm. NEUROLOGIC: Patient is awake alert and oriented x3. MEDICAL DECISION MAKING: The patient is a 66-year-old male who presented to the emergency department for hypotension. The patient has a history of cancer. He has had a history of frequent falls. He was sent to the emergency department because of low blood pressure. He did respond to IV fluids. I discussed patient's laboratory and radiographic studies with him. He was found to have anemia which appears to be worsening over the last few visits to our department. His stool was heme- negative. He did have frequent falls so other CTs of the head neck chest abdomen pelvis were obtained. No signs of traumatic injury were noted. He does have a persistent pleural effusion. I discussed the patient's condition with the on-call [facility] hospitalist. They have agreed to evaluate the patient in the emergency department for further management and disposition. Triage Nursing notes reviewed. Prior medical records reviewed Vital Signs: reviewed and remarkable for initial hypotension which improved. Differential diagnosis: Infection, dehydration, metabolic abnormality, hypo/hyperglycemia, electrolyte disturbance, anemia, hypoxia, cardiac sources, intracerebral event, toxicologic, neurologic, as well as other pathologies. ER treatment provided: See below Diagnostics interpreted by me: ECG: EKG was obtained in the emergency department. My interpretation is normal sinus rhythm at 64 bpm. There is no ectopy. There was no acute ST segment a bnormalities noted. Cardiac Monitoring: An order was placed for continuous cardiac monitoring. The monitor shows a rate of 62 bpm with sinus rhythm. Laboratory studies: As stated above and show below. Imaging studies: See below Consultation(s): I discussed this case with Dr. Flynn [facility] will evaluate the patient in the emergency department. 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 Homicidal ideation PT DENIES AT PRESENT TIME Hypertension Memory loss Osteomyelitis Peripheral arterial disease Peripheral neuropathy Recurrent left pleural effusion s/p thoracentesis August 2018 Restless leg syndrome Schizoaffective disorder Surgical History H/O foot surgery LEFT HEEL REMOVAL FROM PRESSURE ULCER History of bronchoscopy (01/2016) History of colonoscopy History of herniorrhaphy History of lobectomy of lung LOWER LEFT LUNG S/P peripheral artery angioplasty with stent placement (06/2016) 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, 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 S/P thoracentesis (05/2019) L pleural effusion Status post femorofemoral bypass surgery (06/2016) [place] teeth removed Family History Brother Myocardial infarction Father Myocardial infarction Other Cancer Family history non-contributory Lung disease No family history of adverse response to anesthesia Denies family history of Tuberculosis Ovarian cancer Prostate cancer Diabetes Heart disease Allergies Breast cancer Emphysema, unspecified Lung cancer Colorectal cancer Asthma Social History Smoking Status: Current every day smoker Tobacco Type: Cigarettes Age Started Using Tobacco: 10; packs per day: 0.5; Years Smoked: 30; Cigarettes Per Day: 6-8 DAILY; Second Hand Exposure: No; Hx Alcohol Use: Yes Alcohol type: beer Alcohol Intake Frequency: 4 or More x per/Week Alcohol Intake Frequency Comment: mostly daily Hx Substance Use: Yes Prescribed Medications: Marijuana Last Used Substance: Days (ago) Last Used Substance Other:: 3 Preferred Language: Indonesian Communication Ability: Effective Visual Impairment: No Limitations Hearing Ability: Normal Jewelry Racker Required: No Beliefs That Will Affect Care: None marital status: single Current Living Situation: Alone current occupational status: disabled How many Children do You have: 2 Feels Safe at Home: Yes Childhood Exposure to Second-Hand Smoke: Yes Diet Comment: regular caffeine: Yes (coffee 1 pot a day) during the past year weight has: remained stable Dental Care, Regularly: No Physical Activity Frequency: Does not Exercise Seatbelt Use: always Sunscreen Use: No Assistive Devices: Denture - Upper, Denture - Lower, Glasses and Wheelchair Allergies Allergies Allergy/AdvReac Type Severity Reaction Status Date / Time ciprofloxacin Allergy Intermediate RASH Verified 03/17/21 16:31 vancomycin Allergy Intermediate RASH Verified 03/17/21 16:31 sulfamethoxazole Allergy Unknown Unknown Verified 03/17/21 16:31 [From Bactrim] trimethoprim [From Bactrim] Allergy Unknown Unknown Verified 03/17/21 16:31 Home Meds Home Medications Medication Instructions Recorded Confirmed acetaminophen 500 mg capsule 500 mg PO Q6H PRN 02/02/18 03/17/21 ascorbic acid (vitamin C) 500 mg 500 mg PO BID cap 02/02/18 03/17/21 capsule cholecalciferol (vitamin D3) 25 1,000 units PO DAILY 04/03/18 03/17/21 mcg (1,000 unit) capsule docusate sodium 100 mg capsule 100 mg PO DAILY PRN cap 01/29/19 03/17/21 quetiapine 50 mg tablet 50 mg PO HS 02/24/21 03/17/21 divalproex 500 mg tablet,delayed See Rx Instructions .ROUTE .COMPLEX 03/17/21 03/17/21 release melatonin 5 mg tablet 5 mg PO HS PRN 03/17/21 03/17/21 Previous Rx's Medication Instructions Recorded ibuprofen 600 mg tablet 600 mg PO Q6H PRN #90 tab 01/08/19 albuterol sulfate 90 mcg/actuation 2 puffs INH QID PRN #18 gm 01/29/19 aerosol inhaler (Ventolin HFA) ketoconazole 2 % topical cream 1 applic TOP DAILY #90 g 02/12/20 bupropion HCl 100 mg tablet 100 mg PO DAILY #90 tab 01/05/21 divalproex 250 mg tablet,delayed 250 mg PO HS #90 tab 01/05/21 release fluticasone fur. 100 mcg-umeclid 1 inh INHALATION Q24H #60 ea 01/05/21 62.5 mcg-vilant 25 mcg inhalat.powder (Trelegy Ellipta) metoprolol succinate 25 mg 25 mg PO DAILY #90 tab 01/28/21 tablet,extended release 24 hr omeprazole 20 mg capsule,delayed 20 mg PO DAILY #90 cap 02/17/21 release dutasteride 0.5 mg capsule 0.5 mg PO DAILY #90 cap 03/03/21 Results & Data (ED) Vital Signs Vital Signs - 24 hr 03/17/21 15:24 03/17/21 15:31 03/17/21 15:40 Temperature 36.5 C Temperature Source Oral Pulse Rate 64 65 66 Pulse Rate [Apical] Pulse Rate from SpO2 Sensor 64 66 Pulse Rhythm Regular Pulse Strength Normal Respiratory Rate 19 18 24 Respiratory Effort / Characteristics Non-Labored Respiratory Depth Normal Respiratory Pattern Regular Blood Pressure 88/56 L Blood Pressure [Right Arm] Blood Pressure Mean 66 Blood Pressure Mean [Right Arm] Blood Pressure Position Lying Pulse Oximetry 97 97 98 Oxygen Delivery Method Room Air Sepsis Recent Fever Within 48 Hours No Sepsis New/Unexplained Change in Mental Status Yes Sepsis Action Taken by Nursing No Action Required 03/17/21 15:50 03/17/21 16:00 03/17/21 16:10 Temperature Temperature Source Pulse Rate 64 101 H 65 Pulse Rate [Apical] Pulse Rate from SpO2 Sensor 64 65 64 Pulse Rhythm Pulse Strength Respiratory Rate 23 22 20 Respiratory Effort / Characteristics Respiratory Depth Respiratory Pattern Blood Pressure 111/67 Blood Pressure [Right Arm] Blood Pressure Mean 81 Blood Pressure Mean [Right Arm] Blood Pressure Position Pulse Oximetry 97 93 95 Oxygen Delivery Method Sepsis Recent Fever Within 48 Hours Sepsis New/Unexplained Change in Mental Status Sepsis Action Taken by Nursing 03/17/21 16:20 03/17/21 16:30 03/17/21 16:40 Temperature Temperature Source Pulse Rate 63 62 65 Pulse Rate [Apical] Pulse Rate from SpO2 Sensor 63 62 66 Pulse Rhythm Pulse Strength Respiratory Rate 20 19 22 Respiratory Effort / Characteristics Respiratory Depth Respiratory Pattern Blood Pressure 108/65 Blood Pressure [Right Arm] Blood Pressure Mean 79 Blood Pressure Mean [Right Arm] Blood Pressure Position Pulse Oximetry 98 96 99 Oxygen Delivery Method Sepsis Recent Fever Within 48 Hours Sepsis New/Unexplained Change in Mental Status Sepsis Action Taken by Nursing 03/17/21 16:41 03/17/21 16:50 03/17/21 17:00 Temperature Temperature Source Pulse Rate 67 68 Pulse Rate [Apical] Pulse Rate from SpO2 Sensor 68 69 Pulse Rhythm Pulse Strength Respiratory Rate 24 14 Respiratory Effort / Characteristics Respiratory Depth Respiratory Pattern Blood Pressure Blood Pressure [Right Arm] Blood Pressure Mean Blood Pressure Mean [Right Arm] Blood Pressure Position Pulse Oximetry 96 91 100 Oxygen Delivery Method Room Air Sepsis Recent Fever Within 48 Hours Sepsis New/Unexplained Change in Mental Status Sepsis Action Taken by Nursing 03/17/21 17:27 03/17/21 17:30 03/17/21 17:40 Temperature Temperature Source Pulse Rate 106 H 68 73 Pulse Rate [Apical] Pulse Rate from SpO2 Sensor 69 72 Pulse Rhythm Pulse Strength Respiratory Rate 19 19 21 Respiratory Effort / Characteristics Respiratory Depth Respiratory Pattern Blood Pressure Blood Pressure [Right Arm] Blood Pressure Mean Blood Pressure Mean [Right Arm] Blood Pressure Position Pulse Oximetry 95 98 Oxygen Delivery Method Sepsis Recent Fever Within 48 Hours Sepsis New/Unexplained Change in Mental Status Sepsis Action Taken by Nursing 03/17/21 17:45 03/17/21 17:50 03/17/21 18:00 Temperature Temperature Source Pulse Rate 72 68 Pulse Rate [Apical] 71 Pulse Rate from SpO2 Sensor 67 Pulse Rhythm Pulse Strength Respiratory Rate 18 18 20 Respiratory Effort / Characteristics Respiratory Depth Respiratory Pattern Blood Pressure Blood Pressure [Right Arm] 150/63 H Blood Pressure Mean Blood Pressure Mean [Right Arm] 92 Blood Pressure Position Pulse Oximetry 94 96 Oxygen Delivery Method Room Air Sepsis Recent Fever Within 48 Hours Sepsis New/Unexplained Change in Mental Status Sepsis Action Taken by Nursing 03/17/21 18:10 03/17/21 18:20 03/17/21 18:30 Temperature Temperature Source Pulse Rate 68 70 72 Pulse Rate [Apical] Pulse Rate from SpO2 Sensor 64 70 72 Pulse Rhythm Pulse Strength Respiratory Rate 19 23 21 Respiratory Effort / Characteristics Respiratory Depth Respiratory Pattern Blood Pressure 122/78 122/67 Blood Pressure [Right Arm] Blood Pressure Mean 92 85 Blood Pressure Mean [Right Arm] Blood Pressure Position Pulse Oximetry 98 99 98 Oxygen Delivery Method Sepsis Recent Fever Within 48 Hours Sepsis New/Unexplained Change in Mental Status Sepsis Action Taken by Nursing 03/17/21 18:40 03/17/21 18:50 03/17/21 19:00 Temperature Temperature Source Pulse Rate 69 76 67 Pulse Rate [Apical] Pulse Rate from SpO2 Sensor 70 67 Pulse Rhythm Pulse Strength Respiratory Rate 17 26 H 25 H Respiratory Effort / Characteristics Respiratory Depth Respiratory Pattern Blood Pressure 146/82 H Blood Pressure [Right Arm] Blood Pressure Mean 103 Blood Pressure Mean [Right Arm] Blood Pressure Position Pulse Oximetry 100 99 Oxygen Delivery Method Sepsis Recent Fever Within 48 Hours Sepsis New/Unexplained Change in Mental Status Sepsis Action Taken by Nursing 03/17/21 19:10 03/17/21 19:20 03/17/21 19:30 Temperature Temperature Source Pulse Rate 66 70 70 Pulse Rate [Apical] Pulse Rate from SpO2 Sensor 66 70 70 Pulse Rhythm Pulse Strength Respiratory Rate 19 21 25 H Respiratory Effort / Characteristics Respiratory Depth Respiratory Pattern Blood Pressure 140/81 Blood Pressure [Right Arm] Blood Pressure Mean 100 Blood Pressure Mean [Right Arm] Blood Pressure Position Pulse Oximetry 99 96 99 Oxygen Delivery Method Sepsis Recent Fever Within 48 Hours Sepsis New/Unexplained Change in Mental Status Sepsis Action Taken by Nursing 03/17/21 19:40 03/17/21 19:50 03/17/21 20:00 Temperature Temperature Source Pulse Rate 77 66 74 Pulse Rate [Apical] Pulse Rate from SpO2 Sensor 66 76 Pulse Rhythm Pulse Strength Respiratory Rate 18 22 17 Respiratory Effort / Characteristics Respiratory Depth Respiratory Pattern Blood Pressure Blood Pressure [Right Arm] Blood Pressure Mean Blood Pressure Mean [Right Arm] Blood Pressure Position Pulse Oximetry 97 96 Oxygen Delivery Method Sepsis Recent Fever Within 48 Hours Sepsis New/Unexplained Change in Mental Status Sepsis Action Taken by Nursing 03/17/21 20:10 03/17/21 20:20 03/17/21 20:30 Temperature Temperature Source Pulse Rate 69 69 68 Pulse Rate [Apical] Pulse Rate from SpO2 Sensor Pulse Rhythm Pulse Strength Respiratory Rate 15 26 H 24 Respiratory Effort / Characteristics Respiratory Depth Respiratory Pattern Blood Pressure Blood Pressure [Right Arm] Blood Pressure Mean Blood Pressure Mean [Right Arm] Blood Pressure Position Pulse Oximetry Oxygen Delivery Method Sepsis Recent Fever Within 48 Hours Sepsis New/Unexplained Change in Mental Status Sepsis Action Taken by Nursing 03/17/21 20:40 03/17/21 20:50 Temperature Temperature Source Pulse Rate 67 62 Pulse Rate [Apical] Pulse Rate from SpO2 Sensor Pulse Rhythm Pulse Strength Respiratory Rate 15 15 Respiratory Effort / Characteristics Respiratory Depth Respiratory Pattern Blood Pressure 114/65 Blood Pressure [Right Arm] Blood Pressure Mean 81 Blood Pressure Mean [Right Arm] Blood Pressure Position Pulse Oximetry Oxygen Delivery Method Sepsis Recent Fever Within 48 Hours Sepsis New/Unexplained Change in Mental Status Sepsis Action Taken by Half-[facility] Medications Current Medication List: was personally reviewed by me Laboratory Data Attestation: I reviewed the patient's lab results. Result diagrams: 03/17/21 15:53 03/17/21 17:05 Lab Results 03/17/21 03/17/21 03/17/21 Range/Units 15:53 15:53 15:53 WBC 4.75 L (4.8-10.8) K/uL RBC 2.90 L (4.7-6.1) M/uL Hgb 7.3 L (14.0-18.0) g/dL Hct 22.1 L (42-52) % MCV 76.2 L (80-100) fL MCH 25.2 (25-34) pg MCHC 33.0 (32-36) g/dL RDW Std Deviation 55.2 H (36.4-46.3) fL RDW Coeff of Raul 19.7 H (11.5-14.5) % Plt Count 210 (130-400) K/uL MPV 9.6 (7.4-10.4) fL Immature Gran % (Auto) 0.2 % Neut % (Auto) 77.7 % Lymph % (Auto) 10.5 % [place] % (Auto) 9.5 % Eos % (Auto) 2.1 % Baso % (Auto) 0.0 % Neut # (Auto) 3.69 (1.4-6.5) K/uL Lymph # (Auto) 0.50 L (1.2-3.4) K/uL [place] # (Auto) 0.45 (0.11-0.59) K/uL Eos # (Auto) 0.10 (0-0.5) K/uL Baso # (Auto) 0.00 (0-0.2) K/uL Immature Gran # (Auto) 0.01 (0.00-0.02) K/uL Polychromasia 1+ Hypochromasia Present Ovalocytes 1+ Echinocytes 1+ PT (9.0-12.0) Seconds INR (0.9-1.1) APTT (21.0-31.0) Seconds PTT Ratio VBG pH (7.36-7.41) VBG pCO2 (38-50) mmHg VBG pO2 mmHg VBG HCO3 mmol/L VBG O2 Saturation % VBG Base Excess mEq/L Barometric Pressure mm/Hg Sodium 131 L (136-145) mmol/L Potassium (3.5-5.1) mmol/L Chloride 103 (98-107) mmol/L Carbon Dioxide 23 (21-32) mmol/L Anion Gap 5.0 (3-11) BUN 17 (7-18) mg/dl Creatinine 1.00 (0.6-1.4) mg/dl Est Cr Clr Drug Dosing 68.5 ml/min Est GFR ( Amer) 89.9 ml/min Est GFR (Non-Af Amer) 77.5 ml/min BUN/Creatinine Ratio 17.4 (10-20) Glucose 79 (70-99) mg/dl Lactate (0.4-2.0) mmol/L Calcium 8.4 L (8.5-10.1) mg/dl Magnesium (1.8-2.4) mg/dl Total Bilirubin 0.4 (0.2-1) mg/dl AST (15-37) U/L ALT 8 L (12-78) U/L Alkaline Phosphatase 63 (45-117) U/L Ammonia (11-32) umol/L Troponin I < 0.015 (0-0.045) ng/ml Total Protein 7.4 (6.4-8.2) gm/dl Albumin 2.1 L (3.4-5.0) gm/dl Globulin 5.3 H (2.5-4.0) gm/dl Albumin/Globulin Ratio 0.4 L (0.9-2) Procalcitonin < 0.05 (0-0.5) ng/ml Urine Color Urine Appearance (Clear) Urine pH (4.5-7.5) Ur Specific [place] (1.000-1.030) Urine Protein (Negative) Urine Glucose (UA) (Negative) Urine Ketones (Negative) Urine Blood (Negative) Urine Nitrite (Negative) Urine Bilirubin (Negative) Urine Urobilinogen (Negative) Ur Leukocyte Esterase (Negative) Valproic Acid (50-100) mcg/ml COVID-19 Eval Order SARS-CoV-2 (PCR) (Negative) Blood Type Antibody Screen 03/17/21 03/17/21 03/17/21 Range/Units 15:53 15:53 15:53 WBC (4.8-10.8) K/uL RBC (4.7-6.1) M/uL Hgb (14.0-18.0) g/dL Hct (42-52) % MCV (80-100) fL MCH (25-34) pg MCHC (32-36) g/dL RDW Std Deviation (36.4-46.3) fL RDW Coeff of Raul (11.5-14.5) % Plt Count (130-400) K/uL MPV (7.4-10.4) fL Immature Gran % (Auto) % Neut % (Auto) % Lymph % (Auto) % [place] % (Auto) % Eos % (Auto) % Baso % (Auto) % Neut # (Auto) (1.4-6.5) K/uL Lymph # (Auto) (1.2-3.4) K/uL [place] # (Auto) (0.11-0.59) K/uL Eos # (Auto) (0-0.5) K/uL Baso # (Auto) (0-0.2) K/uL Immature Gran # (Auto) (0.00-0.02) K/uL Polychromasia Hypochromasia Ovalocytes Echinocytes PT 10.8 (9.0-12.0) Seconds INR 1.1 (0.9-1.1) APTT 29.1 (21.0-31.0) Seconds PTT Ratio 1.1 VBG pH (7.36-7.41) VBG pCO2 (38-50) mmHg VBG pO2 mmHg VBG HCO3 mmol/L VBG O2 Saturation % VBG Base Excess mEq/L Barometric Pressure mm/Hg Sodium (136-145) mmol/L Potassium (3.5-5.1) mmol/L Chloride (98-107) mmol/L Carbon Dioxide (21-32) mmol/L Anion Gap (3-11) BUN (7-18) mg/dl Creatinine (0.6-1.4) mg/dl Est Cr Clr Drug Dosing ml/min Est GFR ( Amer) ml/min Est GFR (Non-Af Amer) ml/min BUN/Creatinine Ratio (10-20) Glucose (70-99) mg/dl Lactate 1.3 (0.4-2.0) mmol/L Calcium (8.5-10.1) mg/dl Magnesium (1.8-2.4) mg/dl Total Bilirubin (0.2-1) mg/dl AST (15-37) U/L ALT (12-78) U/L Alkaline Phosphatase (45-117) U/L Ammonia (11-32) umol/L Troponin I (0-0.045) ng/ml Total Protein (6.4-8.2) gm/dl Albumin (3.4-5.0) gm/dl Globulin (2.5-4.0) gm/dl Albumin/Globulin Ratio (0.9-2) Procalcitonin (0-0.5) ng/ml Urine Color Urine Appearance (Clear) Urine pH (4.5-7.5) Ur Specific [place] (1.000-1.030) Urine Protein (Negative) Urine Glucose (UA) (Negative) Urine Ketones (Negative) Urine Blood (Negative) Urine Nitrite (Negative) Urine Bilirubin (Negative) Urine Urobilinogen (Negative) Ur Leukocyte Esterase (Negative) Valproic Acid (50-100) mcg/ml COVID-19 Eval Order SARS-CoV-2 (PCR) (Negative) Blood Type Antibody Screen 03/17/21 03/17/21 03/17/21 Range/Units 15:53 15:53 15:59 WBC (4.8-10.8) K/uL RBC (4.7-6.1) M/uL Hgb (14.0-18.0) g/dL Hct (42-52) % MCV (80-100) fL MCH (25-34) pg MCHC (32-36) g/dL RDW Std Deviation (36.4-46.3) fL RDW Coeff of Raul (11.5-14.5) % Plt Count (130-400) K/uL MPV (7.4-10.4) fL Immature Gran % (Auto) % Neut % (Auto) % Lymph % (Auto) % [place] % (Auto) % Eos % (Auto) % Baso % (Auto) % Neut # (Auto) (1.4-6.5) K/uL Lymph # (Auto) (1.2-3.4) K/uL [place] # (Auto) (0.11-0.59) K/uL Eos # (Auto) (0-0.5) K/uL Baso # (Auto) (0-0.2) K/uL Immature Gran # (Auto) (0.00-0.02) K/uL Polychromasia Hypochromasia Ovalocytes Echinocytes PT (9.0-12.0) Seconds INR (0.9-1.1) APTT (21.0-31.0) Seconds PTT Ratio VBG pH 7.36 (7.36-7.41) VBG pCO2 44 (38-50) mmHg VBG pO2 23 mmHg VBG HCO3 24 mmol/L VBG O2 Saturation < 60.0 % VBG Base Excess -1.3 mEq/L Barometric Pressure 733.6 mm/Hg Sodium (136-145) mmol/L Potassium (3.5-5.1) mmol/L Chloride (98-107) mmol/L Carbon Dioxide (21-32) mmol/L Anion Gap (3-11) BUN (7-18) mg/dl Creatinine (0.6-1.4) mg/dl Est Cr Clr Drug Dosing ml/min Est GFR ( Amer) ml/min Est GFR (Non-Af Amer) ml/min BUN/Creatinine Ratio (10-20) Glucose (70-99) mg/dl Lactate (0.4-2.0) mmol/L Calcium (8.5-10.1) mg/dl Magnesium (1.8-2.4) mg/dl Total Bilirubin (0.2-1) mg/dl AST (15-37) U/L ALT (12-78) U/L Alkaline Phosphatase (45-117) U/L Ammonia (11-32) umol/L Troponin I (0-0.045) ng/ml Total Protein (6.4-8.2) gm/dl Albumin (3.4-5.0) gm/dl Globulin (2.5-4.0) gm/dl Albumin/Globulin Ratio (0.9-2) Procalcitonin (0-0.5) ng/ml Urine Color Urine Appearance (Clear) Urine pH (4.5-7.5) Ur Specific [place] (1.000-1.030) Urine Protein (Negative) Urine Glucose (UA) (Negative) Urine Ketones (Negative) Urine Blood (Negative) Urine Nitrite (Negative) Urine Bilirubin (Negative) Urine Urobilinogen (Negative) Ur Leukocyte Esterase (Negative) Valproic Acid 95 (50-100) mcg/ml COVID-19 Eval Order SARS-CoV-2 (PCR) (Negative) Blood Type AB Positive Antibody Screen NEGATIVE 03/17/21 03/17/21 03/17/21 Range/Units 17:05 17:05 17:30 WBC (4.8-10.8) K/uL RBC (4.7-6.1) M/uL Hgb (14.0-18.0) g/dL Hct (42-52) % MCV (80-100) fL MCH (25-34) pg MCHC (32-36) g/dL RDW Std Deviation (36.4-46.3) fL RDW Coeff of Raul (11.5-14.5) % Plt Count (130-400) K/uL MPV (7.4-10.4) fL Immature Gran % (Auto) % Neut % (Auto) % Lymph % (Auto) % [place] % (Auto) % Eos % (Auto) % Baso % (Auto) % Neut # (Auto) (1.4-6.5) K/uL Lymph # (Auto) (1.2-3.4) K/uL [place] # (Auto) (0.11-0.59) K/uL Eos # (Auto) (0-0.5) K/uL Baso # (Auto) (0-0.2) K/uL Immature Gran # (Auto) (0.00-0.02) K/uL Polychromasia Hypochromasia Ovalocytes Echinocytes PT (9.0-12.0) Seconds INR (0.9-1.1) APTT (21.0-31.0) Seconds PTT Ratio VBG pH (7.36-7.41) VBG pCO2 (38-50) mmHg VBG pO2 mmHg VBG HCO3 mmol/L VBG O2 Saturation % VBG Base Excess mEq/L Barometric Pressure mm/Hg Sodium (136-145) mmol/L Potassium 4.4 (3.5-5.1) mmol/L Chloride (98-107) mmol/L Carbon Dioxide (21-32) mmol/L Anion Gap (3-11) BUN (7-18) mg/dl Creatinine (0.6-1.4) mg/dl Est Cr Clr Drug Dosing ml/min Est GFR ( Amer) ml/min Est GFR (Non-Af Amer) ml/min BUN/Creatinine Ratio (10-20) Glucose (70-99) mg/dl Lactate (0.4-2.0) mmol/L Calcium (8.5-10.1) mg/dl Magnesium 2.1 (1.8-2.4) mg/dl Total Bilirubin (0.2-1) mg/dl AST 14 L (15-37) U/L ALT (12-78) U/L Alkaline Phosphatase (45-117) U/L Ammonia 35.0 H (11-32) umol/L Troponin I (0-0.045) ng/ml Total Protein (6.4-8.2) gm/dl Albumin (3.4-5.0) gm/dl Globulin (2.5-4.0) gm/dl Albumin/Globulin Ratio (0.9-2) Procalcitonin (0-0.5) ng/ml Urine Color Urine Appearance (Clear) Urine pH (4.5-7.5) Ur Specific [place] (1.000-1.030) Urine Protein (Negative) Urine Glucose (UA) (Negative) Urine Ketones (Negative) Urine Blood (Negative) Urine Nitrite (Negative) Urine Bilirubin (Negative) Urine Urobilinogen (Negative) Ur Leukocyte Esterase (Negative) Valproic Acid (50-100) mcg/ml COVID-19 Eval Order Covid19 at [facility] SARS-CoV-2 (PCR) (Negative) Blood Type Antibody Screen 03/17/21 03/17/21 Range/Units 17:30 17:43 WBC (4.8-10.8) K/uL RBC (4.7-6.1) M/uL Hgb (14.0-18.0) g/dL Hct (42-52) % MCV (80-100) fL MCH (25-34) pg MCHC (32-36) g/dL RDW Std Deviation (36.4-46.3) fL RDW Coeff of Raul (11.5-14.5) % Plt Count (130-400) K/uL MPV (7.4-10.4) fL Immature Gran % (Auto) % Neut % (Auto) % Lymph % (Auto) % Mellette % (Auto) % Eos % (Auto) % Baso % (Auto) % Neut # (Auto) (1.4-6.5) K/uL Lymph # (Auto) (1.2-3.4) K/uL Mellette # (Auto) (0.11-0.59) K/uL Eos # (Auto) (0-0.5) K/uL Baso # (Auto) (0-0.2) K/uL Immature Gran # (Auto) (0.00-0.02) K/uL Polychromasia Hypochromasia Ovalocytes Echinocytes PT (9.0-12.0) Seconds INR (0.9-1.1) APTT (21.0-31.0) Seconds PTT Ratio VBG pH (7.36-7.41) VBG pCO2 (38-50) mmHg VBG pO2 mmHg VBG HCO3 mmol/L VBG O2 Saturation % VBG Base Excess mEq/L Barometric Pressure mm/Hg Sodium (136-145) mmol/L Potassium (3.5-5.1) mmol/L Chloride (98-107) mmol/L Carbon Dioxide (21-32) mmol/L Anion Gap (3-11) BUN (7-18) mg/dl Creatinine (0.6-1.4) mg/dl Est Cr Clr Drug Dosing ml/min Est GFR ( Amer) ml/min Est GFR (Non-Af Amer) ml/min BUN/Creatinine Ratio (10-20) Glucose (70-99) mg/dl Lactate (0.4-2.0) mmol/L Calcium (8.5-10.1) mg/dl Magnesium (1.8-2.4) mg/dl Total Bilirubin (0.2-1) mg/dl AST (15-37) U/L ALT (12-78) U/L Alkaline Phosphatase (45-117) U/L Ammonia (11-32) umol/L Troponin I (0-0.045) ng/ml Total Protein (6.4-8.2) gm/dl Albumin (3.4-5.0) gm/dl Globulin (2.5-4.0) gm/dl Albumin/Globulin Ratio (0.9-2) Procalcitonin (0-0.5) ng/ml Urine Color Yellow Urine Appearance Clear (Clear) Urine pH 7.0 (4.5-7.5) Ur Specific [place] 1.029 (1.000-1.030) Urine Protein Negative (Negative) Urine Glucose (UA) Negative (Negative) Urine Ketones Negative (Negative) Urine Blood Negative (Negative) Urine Nitrite Negative (Negative) Urine Bilirubin Negative (Negative) Urine Urobilinogen Negative (Negative) Ur Leukocyte Esterase Negative (Negative) Valproic Acid (50-100) mcg/ml COVID-19 Eval Order SARS-CoV-2 (PCR) NEGATIVE (Negative) Blood Type Antibody Screen Administered Medications Discontinued Medications Sodium Chloride (Nss 1000ml) 1,000 mls @ 999 mls/hr IV .Q1H1M ONE Stop: 03/17/21 16:37 Last Admin: 03/17/21 16:01 Dose: 999 mls/hr Documented by: [id number] Ioversol (Optiray 320 125ml) 116 ml IV ONCE ONE Stop: 03/17/21 17:26 Last Admin: 03/17/21 17:26 Dose: 116 ml Documented by: [id number] Imaging Data Radiologist's Impression: Abdomen/Pelvis CT 03/17/21 15:37 CT angio chest PE protocol, CT abd pelvis IV con only HISTORY: 66 years-old Male with PE. Acute chest and abdominal trauma status post fall. Acute generalized chest and abdominal pain TECHNIQUE: Multiple CTA images of the chest were obtained after the intravenous administration of 116 ml Optiray. Coronal and sagittal MIPS were obtained from the axial data set and were submitted for review. All measurements were obtained according to NASCET criteria. CT abdomen and pelvis with IV contrast only was also obtained. A dose lowering technique was utilized adhering to the principles of ALARA. COMPARISON: CT lumbar spine 03/13/2021, CTA chest 07/16/2020, CT abdomen and pelvis 05/17/2018 FINDINGS: CTA: The heart is mildly enlarged. No pericardial effusion. Extensive coronary artery calcifications. Atherosclerosis of the thoracic aorta without aneurysm or dissection. Carotid occlusion of the common carotid arteries redemonstrated. The pulmonary arterial tree is opacified to level of the proximal subsegmental branches and demonstrates no filling defects to suggest thromboembolic disease. CT CHEST: No thyroid nodule. There is no new adenopathy of the chest. Bilateral perihilar consolidation with air bronchograms is redemonstrated and appears similar to mildly progressed from comparison. Moderate sized left pleural effusion has decreased in size from comparison. Small right pleural effusion. Bronchial wall thickening. Subpleural groundglass opacities which are most pronounced in the right lung apex are also unchanged. Mild intralobular septal thickening. Dependent left lung base consolidation. Mild groundglass densities of the right lung base. No suspicious pulmonary nodules or masses. Tracheobronchial secretions. Chronic pleural thickening of the left hemithorax. Unremarkable soft tissues. No acute fracture. Chronic left rib fracture deformities. Degenerative changes of the shoulders and spine. CT ABDOMEN/PELVIS: NO pneumatosis or pneumoperitoneum. The spleen, mildly atrophic pancreas, adrenal glands and liver appear unremarkable. The gallbladder is decompressed. Mild wall thickening of the fundus on image 92 is similar to comparison suspicious for adenomyomatosis. No biliary ductal dilation. Patency of the portal vein. No hydronephrosis. 10 mm left renal cyst. Mild urinary bladder wall thickening with partial distention. Unremarkable prostate. Extensive atherosclerotic plaque the abdominal aorta and branch vessels. Atherosclerotic plaque of the abdominal aorta just below the level of the renal arteries on image 164 is similar to comparison resulting in approximately 50% luminal narrowing. There is stenosis of the bilateral renal arteries. There is occlusion versus high-grade stenosis of the left common iliac artery with minimal flow noted within the left external iliac artery, unchanged. Bifemoral bypass graft appears patent. No adenopathy. Unremarkable IVC. No bowel obstruction or bowel wall thickening. Scattered colonic air-fluid levels are noted with mild fecal retention. Normal appendix. Scattered small bowel air-fluid levels are also noted. Degenerative changes of the spine, pelvis and hips. No acute fracture or subluxation identified. Sclerotic changes of the left medial femoral neck are unchanged. Several Schmorl's nodes are redemonstrated. IMPRESSION: 1. No pulmonary emboli. 2. Moderate left pleural effusion has mildly decreased in size from 07/16/2020. Small right pleural effusion. 3. Dependent consolidation of the left lung base favors atelectasis. Pneumonia considered less likely. 4. Perihilar consolidation with air bronchograms suggestive of fibrosis redemonstrated. 5. Mild intralobular septal thickening suggestive of pulmonary edema. 6. No acute posttraumatic intra-abdominal or intrapelvic abnormality identified. 7. Scattered air-fluid levels throughout loops of nondilated large and small bowel may be physiologic or represent a nonspecific enteritis with diarrheal illness. 8. Additional findings as above. ACT 112: Negative or not required by law. The above report was generated using voice recognition software. It may contain grammatical, syntax or spelling errors. Electronically signed by: Александр Moore M.D. 03/17/2021 5:[address] 03/17/21 15:37 CT head/brain wo con CLINICAL HISTORY: 66 years-old Male with AMS. Acutely altered mental status TECHNIQUE: Multiple axial CT images of the head were obtained without contrast. A dose lowering technique was utilized adhering to the principles of ALARA. COMPARISON: Head CT 03/13/2021 FINDINGS: No acute intracranial hemorrhage, midline shift, intracranial mass, hydrocephalus, territorial ischemia or abnormal extra-axial collection. Age- related involutional changes. White matter hypodensities suggestive of chronic microvascular ischemic disease. 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 Cerebral vascular calcifications. Study is mildly motion degraded. The calvarium is intact. The paranasal sinuses, mastoid air cells, and middle ear cavities are clear. IMPRESSION: 1. No acute intracranial abnormality. 2. Chronic findings as above. ACT 112: Negative or not required by law. The above report was generated using voice recognition software. It may contain grammatical, syntax or spelling errors. Electronically signed by: Александр Moore M.D. 03/17/2021 5:22 PM Chest X-Ray 03/17/21 15:38 XR chest 1V portable HISTORY: 66 years-old Male SEPSIS acute sepsis COMPARISON: Chest radiograph 03/13/2021 TECHNIQUE: Portable AP view the chest FINDINGS: Cardiac silhouette is unchanged. Unchanged left greater than right pleural effusions. Persistent right perihilar opacities. No significant change of the left greater than right bilateral airspace opacities. Mildly progressed inter stitial coarsening. No pneumothorax. Degenerative changes of the shoulders and spine. Healed chronic left-sided rib fractures. Right shoulder rotator cuff calcific tendinosis. IMPRESSION: 1. Mildly progressed interstitial coarsening may represent pulmonary edema. 2. Otherwise stable exam with left greater than right pleural effusions and left lung predominant airspace opacities. ACT 112: Negative or not required by law. The above report was generated using voice recognition software. It may contain grammatical, syntax or spelling errors. Electronically signed by: Александр Moore M.D. 03/17/2021 4:02 PM Chest CTA 03/17/21 15:59 CT angio chest PE protocol, CT abd pelvis IV con only HISTORY: 66 years-old Male with PE. Acute chest and abdominal trauma status post fall. Acute generalized chest and abdominal pain TECHNIQUE: Multiple CTA images of the chest were obtained after the intravenous administration of 116 ml Optiray. Coronal and sagittal MIPS were obtained from the axial data set and were submitted for review. All measurements were obtained according to NASCET criteria. CT abdomen and pelvis with IV contrast only was also obtained. A dose lowering technique was utilized adhering to the principles of ALARA. COMPARISON: CT lumbar spine 03/13/2021, CTA chest 07/16/2020, CT abdomen and pelvis 05/17/2018 FINDINGS: CTA: The heart is mildly enlarged. No pericardial effusion. Extensive coronary artery calcifications. Atherosclerosis of the thoracic aorta without aneurysm or dissection. Carotid occlusion of the common carotid arteries redemonstrated. The pulmonary arterial tree is opacified to level of the proximal subsegmental branches and demonstrates no filling defects to suggest thromboembolic disease. CT CHEST: No thyroid nodule. There is no new adenopathy of the chest. Bilateral perihilar consolidation with air bronchograms is redemonstrated and appears similar to mildly progressed from comparison. Moderate sized left pleural effusion has decreased in size from comparison. Small right pleural effusion. Bronchial wall thickening. Subpleural groundglass opacities which are most pronounced in the right lung apex are also unchanged. Mild intralobular septal thickening. Dependent left lung base consolidation. Mild groundglass densities of the right lung base. No suspicious pulmonary nodules or masses. Tracheobronchial secretions. Chronic pleural thickening of the left hemithorax. Unremarkable soft tissues. No acute fracture. Chronic left rib fracture deformities. Degenerative changes of the shoulders and spine. CT ABDOMEN/PELVIS: NO pneumatosis or pneumoperitoneum. The spleen, mildly atrophic pancreas, adrenal glands and liver appear unremarkable. The gallbladder is decompressed. Mild wall thickening of the fundus on image 92 is similar to comparison suspicious for adenomyomatosis. No biliary ductal dilation. Patency of the portal vein. No hydronephrosis. 10 mm left renal cyst. Mild urinary bladder wall thickening with partial distention. Unremarkable prostate. Extensive atherosclerotic plaque the abdominal aorta and branch vessels. Atherosclerotic plaque of the abdominal aorta just below the level of the renal arteries on image 164 is similar to comparison resulting in approximately 50% luminal narrowing. There is stenosis of the bilateral renal arteries. There is occlusion versus high-grade stenosis of the left common iliac artery with minimal flow noted within the left external iliac artery, unchanged. Bifemoral bypass graft appears patent. No adenopathy. Unremarkable IVC. No bowel obstruction or bowel wall thickening. Scattered colonic air-fluid levels are noted with mild fecal retention. Normal appendix. Scattered small bowel air-fluid levels are also noted. Degenerative changes of the spine, pelvis and hips. No acute fracture or subluxation identified. Sclerotic changes of the left medial femoral neck are unchanged. Several Schmorl's nodes are redemonstrated. IMPRESSION: 1. No pulmonary emboli. 2. Moderate left pleural effusion has mildly decreased in size from 07/16/2020. Small right pleural effusion. 3. Dependent consolidation of the left lung base favors atelectasis. Pneumonia considered less likely. 4. Perihilar consolidation with air bronchograms suggestive of fibrosis redemonstrated. 5. Mild intralobular septal thickening suggestive of pulmonary edema. 6. No acute posttraumatic intra-abdominal or intrapelvic abnormality identified. 7. Scattered air-fluid levels throughout loops of nondilated large and small bowel may be physiologic or represent a nonspecific enteritis with diarrheal illness. 8. Additional findings as above. ACT 112: Negative or not required by law. The above report was generated using voice recognition software. It may contain grammatical, syntax or spelling errors. Electronically signed by: Александр Moore M.D. 03/17/2021 5:[address] 03/17/21 16:08 CT cervical spine wo con CT DOSE: 2022.57 mGy.cm CLINICAL HISTORY: 66 years-old Male with fall. Acute head and neck injury status post fall COMPARISON: Head CT of same day, CT cervical spine 02/24/2021 TECHNIQUE: Multiple axial CT images of the cervical spine were obtained without contrast. A dose lowering technique was utilized adhering to the principles of ALARA. FINDINGS: Moderate to severe multilevel intervertebral disc space narrowing and spondylitic spurring with moderate facet arthrosis redemonstrated. No acute fracture or subluxation. Multilevel neural foraminal narrowing. The mastoid air cells are clear. Extensive calcified plaque of the carotid arteries. No pneumothorax. Pleural parenchymal scarring of the right lung apex. No prevertebral edema. IMPRESSION: No acute cervical spine fracture or subluxation. ACT 112: Negative or not required by law. The above report was generated using voice recognition software. It may contain grammatical, syntax or spelling errors. Electronically signed by: Александр Moore M.D. 03/17/2021 5:40 PM Discharge Plan Visit Data Chief Complaint: Hypotension Stated Complaint: HYPOTENTION ED Provider: Michael Hassan Discharge Problem: Weakness, Anemia, Pleural effusion, Acute hypotension Patient Disposition: Being Evaluated by Hospitalist Forms Stand Alone Forms: [employer] Prescriptions Prescriptions: No Action acetaminophen 500 mg capsule 500 mg PO Q6H PRN (Reason: fever or pain) RF: 0 ascorbic acid (vitamin C) 500 mg capsule 500 mg PO BID RF: 0 cholecalciferol (vitamin D3) 1,000 unit capsule 1,000 units PO DAILY RF: 0 ibuprofen 600 mg tablet 600 mg PO Q6H PRN (Reason: pain) Qty: 90 RF: 2 ketoconazole 2 % cream 1 applic TOP DAILY Qty: 90 RF: 3 bupropion HCl 100 mg tablet 100 mg PO DAILY Qty: 90 RF: 1 divalproex 250 mg tablet,delayed release (DR/EC) 250 mg PO HS Qty: 90 RF: 1 Trelegy Ellipta 100-62.5-25 mcg blister with device 1 inh inhalation Q24H Qty: 60 RF: 5 metoprolol succinate 25 mg tablet extended release 24 hr 25 mg PO DAILY Qty: 90 RF: 1 omeprazole 20 mg capsule,delayed release(DR/EC) 20 mg PO DAILY Qty: 90 RF: 1 dutasteride 0.5 mg capsule 0.5 mg PO DAILY Qty: 90 RF: 1 docusate sodium 100 mg capsule 100 mg PO DAILY PRN (Reason: Constipation) RF: 0 albuterol sulfate [Ventolin HFA] 90 mcg/actuation HFA aerosol inhaler 2 puffs INH QID PRN (Reason: shortness of breath or wheezing) Qty: 18 RF: 4 melatonin 5 mg Tablet 5 mg PO HS PRN (Reason: Sleep) RF: 0 divalproex 500 mg tablet,delayed release (DR/EC) See Rx Instructions .ROUTE .COMPLEX RF: 0 quetiapine 50 mg tablet 50 mg PO HS RF: 0 Referrals Referrals: John Johnson CRNP [Primary Care Provider] -
[2021-03-17 16:17] LABS: INR 1.1 (0.9-1.1); Partial Thromboplastin Ratio 1.1; Partial Thromboplastin Time 29.1 Seconds (21.0-31.0); Prothrombin Time 10.8 Seconds (9.0-12.0)
[2021-03-17 16:29] LABS: Alanine Aminotransferase 8 U/L (12-78); Albumin Globulin Ratio 0.4 (0.9-2); Albumin Level 2.1 gm/dl (3.4-5.0); Alkaline Phosphatase 63 U/L (45-117); BUN Creatinine Ratio 17.4 (10-20); Bilirubin,Total 0.4 mg/dl (0.2-1); Blood Urea Nitrogen 17 mg/dl (7-18); Calcium 8.4 mg/dl (8.5-10.1); Carbon Dioxide 23 mmol/L (21-32); Chloride 103 mmol/L (98-107); Creatinine Clr Calc Pharmacy 68.5 ml/min; Est GFR (African American) 89.9 ml/min; Est GFR (Non-African American) 77.5 ml/min; Globulin 5.3 gm/dl (2.5-4.0); Glucose 79 mg/dl (70-99); Sodium 131 mmol/L (136-145); Total Protein 7.4 gm/dl (6.4-8.2); Troponin I < 0.015 ng/ml (0-0.045)
[2021-03-17 16:30] LABS: Echinocytes 1+; Hypochromasia Present; Ovalocytes 1+; Polychromasia 1+
--- NOTE | 2021-03-17 17:24 | CT Scan Report ---
CT head/brain wo con CLINICAL HISTORY: 66 years-old Male with AMS. Acutely altered mental status TECHNIQUE: Multiple axial CT images of the head were obtained without contrast. A dose lowering tech nique was utilized adhering to the principles of ALARA. COMPARISON: Head CT 03/13/2021 FINDINGS: No acute intracranial hemorrhage, midline shift, intracranial mass, hydrocephalus, territorial ischem ia or abnormal extra-axial collection. Age-related involutional changes. White matter hypodensities s uggestive of chronic microvascular ischemic disease. Chronic infarcts of the left basal ganglia and l eft frontal lobe. Cerebral vascular calcifications. Study is mildly motion degraded. The calvarium is intact. The paranasal sinuses, mastoid air cells, and middle ear cavities are clear. IMPRESSION: 1. No acute intracranial abnormality. 2. Chronic findings as above. ACT 112: Negative or not required by law. The above report was generated using voice recognition software. It may contain grammatical, syntax o r spelling errors. Electronically signed by: Александр Moore M.D. 03/17/2021 5:22 PM
[2021-03-17] MEDS ORDERED: OPTIRAY 320 125ml IV ONE (17:25)
[2021-03-17 17:29] LABS: Potassium 4.4 mmol/L (3.5-5.1)
[2021-03-17 17:35] LABS: Magnesium 2.1 mg/dl (1.8-2.4)
--- NOTE | 2021-03-17 17:41 | CT Scan Report ---
CT cervical spine wo con CT DOSE: 2022.57 mGy.cm CLINICAL HISTORY: 66 years-old Male with fall. Acute head and neck injury status post fall COMPARISON: Head CT of same day, CT cervical spine 02/24/2021 TECHNIQUE: Multiple axial CT images of the cervical spine were obtained without contrast. A dose low ering technique was utilized adhering to the principles of ALARA. FINDINGS: Moderate to severe multilevel intervertebral disc space narrowing and spondylitic spurring with moderate facet arthrosis redemonstrated. No acute fracture or subluxation. Multilevel neural for aminal narrowing. The mastoid air cells are clear. Extensive calcified plaque of the carotid arteries . No pneumothorax. Pleural parenchymal scarring of the right lung apex. No prevertebral edema. IMPRESSION: No acute cervical spine fracture or subluxation. ACT 112: Negative or not required by law. The above report was generated using voice recognition software. It may contain grammatical, syntax o r spelling errors. Electronically signed by: Александр Moore M.D. 03/17/2021 5:40 PM
--- NOTE | 2021-03-17 18:00 | CT Scan Report ---
CT angio chest PE protocol, CT abd pelvis IV con only HISTORY: 66 years-old Male with PE. Acute chest and abdominal trauma status post fall. Acute genera lized chest and abdominal pain TECHNIQUE: Multiple CTA images of the chest were obtained after the intravenous administration of 116 ml Optiray. Coronal and sagittal MIPS were obtained from the axial data set and were submitted for review. All measurements were obtained according to NASCET criteria. CT abdomen and pelvis with IV c ontrast only was also obtained. A dose lowering technique was utilized adhering to the principles of ALARA. COMPARISON: CT lumbar spine 03/13/2021, CTA chest 07/16/2020, CT abdomen and pelvis 05/17/2018 FINDINGS: CTA: The heart is mildly enlarged. No pericardial effusion. Extensive coronary artery calcifications. Athe rosclerosis of the thoracic aorta without aneurysm or dissection. Carotid occlusion of the common car otid arteries redemonstrated. The pulmonary arterial tree is opacified to level of the proximal subse gmental branches and demonstrates no filling defects to suggest thromboembolic disease. CT CHEST: No thyroid nodule. There is no new adenopathy of the chest. Bilateral perihilar consolidation with ai r bronchograms is redemonstrated and appears similar to mildly progressed from comparison. Moderate s ized left pleural effusion has decreased in size from comparison. Small right pleural effusion. Bronc hial wall thickening. Subpleural groundglass opacities which are most pronounced in the right lung ap ex are also unchanged. Mild intralobular septal thickening. Dependent left lung base consolidation. M ild groundglass densities of the right lung base. No suspicious pulmonary nodules or masses. Tracheob ronchial secretions. Chronic pleural thickening of the left hemithorax. Unremarkable soft tissues. No acute fracture. Chronic left rib fracture deformities. Degenerative eleanor nges of the shoulders and spine. CT ABDOMEN/PELVIS: NO pneumatosis or pneumoperitoneum. The spleen, mildly atrophic pancreas, adrenal glands and liver ap pear unremarkable. The gallbladder is decompressed. Mild wall thickening of the fundus on image 92 is similar to comparison suspicious for adenomyomatosis. No biliary ductal dilation. Patency of the por daniel vein. No hydronephrosis. 10 mm left renal cyst. Mild urinary bladder wall thickening with partial distentio n. Unremarkable prostate. Extensive atherosclerotic plaque the abdominal aorta and branch vessels. At herosclerotic plaque of the abdominal aorta just below the level of the renal arteries on image 164 i s similar to comparison resulting in approximately 50% luminal narrowing. There is stenosis of the bi lateral renal arteries. There is occlusion versus high-grade stenosis of the left common iliac artery with minimal flow noted within the left external iliac artery, unchanged. Bifemoral bypass graft eulalio ears patent. No adenopathy. Unremarkable IVC. No bowel obstruction or bowel wall thickening. Scattered colonic air-fluid levels are noted with mild fecal retention. Normal appendix. Scattered small bowel air-fluid levels are also noted. Degenerativ e changes of the spine, pelvis and hips. No acute fracture or subluxation identified. Sclerotic rabago es of the left medial femoral neck are unchanged. Several Schmorl's nodes are redemonstrated. IMPRESSION: 1. No pulmonary emboli. 2. Moderate left pleural effusion has mildly decreased in size from 07/16/2020. Small right pleural ef fusion. 3. Dependent consolidation of the left lung base favors atelectasis. Pneumonia considered less likely . 4. Perihilar consolidation with air bronchograms suggestive of fibrosis redemonstrated. 5. Mild intralobular septal thickening suggestive of pulmonary edema. 6. No acute posttraumatic intra-abdominal or intrapelvic abnormality identified. 7. Scattered air-fluid levels throughout loops of nondilated large and small bowel may be physiologic or represent a nonspecific enteritis with diarrheal illness. 8. Additional findings as above. ACT 112: Negative or not required by law. The above report was generated using voice recognition software. It may contain grammatical, syntax o r spelling errors. Electronically signed by: Александр Moore M.D. 03/17/2021 5:58 PM
[2021-03-17 18:01] LABS: Appearance Urine Clear (Clear); Bilirubin Urine Negative (Negative); Blood Urine Negative (Negative); Color Urine Yellow; Glucose Urine UA Negative (Negative); Ketones Urine Negative (Negative); Leukocyte Esterase Urine Negative (Negative); Nitrite Urine Negative (Negative); Protein Urine Negative (Negative); Specific Gravity Urine 1.029 (1.000-1.030); Urobilinogen Urine Negative (Negative)
--- NOTE | 2021-03-17 19:05 | History & Physical Report ---
Date of Service March 17, 2021 Assessment & Plan (1) Fall: Plan: Suspect the patient's falls are multifactorial: Hyponatremia, worsening anemia, generalized deconditioning, question of episodic hypotension which seems to be self-limited Place patient in monitored observation PT/OT evaluation Orthostatics Further treatment as detailed below (2) Anemia: Plan: Consider chronic GI losses versus anemia chronic disease, hemolysis and chemo related pancytopenia less likely considering other indices appear intact Informed consent received from patient for 1 unit of packed red blood cells Will heme check stool consecutively Check iron studies, B12, folate, haptoglobin, LDH We will asked Dr. Keene's practice, and further. Consideration of GI consultation as well (3) CKD (chronic kidney disease) stage 2, GFR 60-89 ml/min: Plan: Renal function appears to be at baseline in this patient, continue to monitor (4) Chronic hypoxemic respiratory failure: Plan: Patient is not on supplemental oxygen, continue to monitor (5) COPD (chronic obstructive pulmonary disease) with chronic bronchitis: Plan: Patient is a very history of COPD, still smoking despite lung cancer diagnosis Continue Trelegy or pharmacy equivalent Continue to monitor (6) History of lung cancer: Plan: Patient did note that he had a follow-up soon for his lung cancer but could not tell me the name of the physician. I do see that he sees Dr. Morin and Dr. Keene. Dr. Keene consult as noted above, can consider pulmonology as well. I do not feel that the patient requires thoracentesis for his left pleural effusion at this time considering he is at 99% on room air. History of Present Illness Chief Complaint: Weakness, change in mental status Primary Care Provider: PETE Chawla This is a 6-year-old male past medical history of COPD, non-small cell lung carcinoma, CKD stage II that presents with a change in mental status and generalized weakness. Patient is awake and alert and able to answer questions although I am unsure how accurate he is. Unfortunately, he is alone in the room. Patient had been seen here in the emergency room 03/13. He does tell me that he had will gone to bed on 03/12 and fallen out of bed sometime overnight. He was not able to get up under his own power and spent most of the day on the floor. Around 3 in the afternoon he was able to call his girlfriend who was able to get him to the emergency room. In route the patient allegedly had a blood pressure of 60/30 but all blood pressures documented by the ER were hypertensive range. Patient was subsequently discharged after work-up revealed only some anemia. Patient today is a little less reliable. He tells me that he was again feeling very weak but denies any fall. He tells me that there is a woman that lives above him who owns his apartment, she came down to see him and was insisted that he come back to the emergency room because he just did not look right. Patient did admit to significant weakness but does not feel that he was particularly ill at the time. However, when he presents to the emergency room he was once again very hypotensive with documented initial blood pressure of 88/56. At the time my evaluation his blood pressure is 122/78. Unfortunately, the patient's anemia has worsened his hemoglobin is now 7.3. Patient denies any other symptoms such as chest pain, palpitations, fever or chills. He does note he is weak. He denies any gross bleeding, either rectally or from any other orifice. Of note, patient is stage III non-small cell lung carcinoma. He follows with o ncology we cannot recall his name, I do see a note from [address] Keene's office. Patient does follow with Dr. Troy from pulmonology as well. He has had chronic left-sided pleural effusions, and these have been tapped previously but have never been positive for malignancy. Allergies Allergy/AdvReac Type Severity Reaction Status Date / Time ciprofloxacin Allergy Intermediate RASH Verified 03/17/21 16:31 vancomycin Allergy Intermediate RASH Verified 03/17/21 16:31 sulfamethoxazole Allergy Unknown Unknown Verified 03/17/21 16:31 [From Bactrim] trimethoprim [From Bactrim] Allergy Unknown Unknown Verified 03/17/21 16:31 Home Medications Medication Instructions Recorded Confirmed Type acetaminophen 500 mg capsule 500 mg PO Q6H PRN 02/02/18 03/17/21 History ascorbic acid (vitamin C) 500 mg 500 mg PO BID cap 02/02/18 03/17/21 History capsule cholecalciferol (vitamin D3) 25 1,000 units PO DAILY 04/03/18 03/17/21 History mcg (1,000 unit) capsule ibuprofen 600 mg tablet 600 mg PO Q6H PRN #90 tab 01/08/19 03/17/21 Rx albuterol sulfate 90 mcg/actuation 2 puffs INH QID PRN #18 gm 01/29/19 03/17/21 Rx aerosol inhaler (Ventolin HFA) docusate sodium 100 mg capsule 100 mg PO DAILY PRN cap 01/29/19 03/17/21 History ketoconazole 2 % topical cream 1 applic TOP DAILY #90 g 02/12/20 03/17/21 Rx bupropion HCl 100 mg tablet 100 mg PO DAILY #90 tab 01/05/21 03/17/21 Rx divalproex 250 mg tablet,delayed 250 mg PO HS #90 tab 01/05/21 03/17/21 Rx release fluticasone fur. 100 mcg-umeclid 1 inh INHALATION Q24H #60 ea 01/05/21 03/17/21 Rx 62.5 mcg-vilant 25 mcg inhalat.powder (Trelegy Ellipta) metoprolol succinate 25 mg 25 mg PO DAILY #90 tab 01/28/21 03/17/21 Rx tablet,extended release 24 hr omeprazole 20 mg capsule,delayed 20 mg PO DAILY #90 cap 02/17/21 03/17/21 Rx release quetiapine 50 mg tablet 50 mg PO HS 02/24/21 03/17/21 History dutasteride 0.5 mg capsule 0.5 mg PO DAILY #90 cap 03/03/21 03/17/21 Rx divalproex 500 mg tablet,delayed See Rx Instructions .ROUTE .COMPLEX 03/17/21 03/17/21 History release melatonin 5 mg tablet 5 mg PO HS PRN 03/17/21 03/17/21 History 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 Esophageal stenosis GERD (gastroesophageal reflux disease) Hepatic steatosis Hiatal hernia History of COVID-19 07/2020 ([facility]HE[facility] AND FEVER) HOSPITALIZED AT [facility] History of lung cancer (01/2016) 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 Homicidal ideation PT DENIES AT PRESENT TIME Hypertension Memory loss Osteomyelitis Peripheral arterial disease Peripheral neuropathy Recurrent left pleural effusion s/p thoracentesis August 2018 Restless leg syndrome Schizoaffective disorder Surgical History H/O foot surgery LEFT HEEL REMOVAL FROM PRESSURE ULCER History of bronchoscopy (01/2016) History of colonoscopy History of herniorrhaphy History of lobectomy of lung LOWER LEFT LUNG S/P peripheral artery angioplasty with stent placement (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, 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 S/P thoracentesis (05/2019) L pleural effusion Status post femorofemoral bypass surgery (06/2016) [place] teeth removed Family History Brother Myocardial infarction Father Myocardial infarction Other Cancer Family history non-contributory Lung disease No family history of adverse response to anesthesia Denies family history of Tuberculosis Ovarian cancer Prostate cancer Diabetes Heart disease Allergies Breast cancer Emphysema, unspecified Lung cancer Colorectal cancer Asthma Social History Smoking Status: Current every day smoker Tobacco Type: Cigarettes Age Started Using Tobacco: 9; packs per day: 0.5; Years Smoked: 30; Cigarettes Per Day: 6-8 DAILY; Second Hand Exposure: No; Hx Alcohol Use: Yes Alcohol type: beer Alcohol Intake Frequency: 4 or More x per/Week Alcohol Intake Frequency Comment: mostly daily Hx Substance Use: Yes Prescribed Medications: Marijuana Last Used Substance: Days (ago) Last Used Substance Other:: 3 Preferred Language: [place] Communication Ability: Effective Visual Impairment: No Limitations Hearing Ability: Normal 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 Beliefs That Will Affect Care: None marital status: single Current Living Situation: Alone current occupational status: disabled How many Children do You have: 2 Feels Safe at Home: Yes Childhood Exposure to Second-Hand Smoke: Yes Diet Comment: regular caffeine: Yes (coffee 1 pot a day) during the past year weight has: remained stable Dental Care, Regularly: No Physical Activity Frequency: Does not Exercise Seatbelt Use: always Sunscreen Use: No Assistive Devices: Denture - Upper, Denture - Lower, Glasses and Wheelchair Review of Systems Constitutional: + fatigue and + weakness; no fever, no chills, no weight loss and no weight gain Eyes: as per Subjective / HPI Respiratory: + cough and + chest congestion; no dyspnea, no dyspnea on exertion, no pain with cough and no sputum production Cardiovascular: no chest pain, no orthopnea, no palpitations, no lightheadedness and no edema Gastrointestinal: no abdominal pain, no nausea, no vomiting, no constipation and no diarrhea/loose stools Musculoskeletal: no back pain, no neck pain, no joint pain, no stiffness and no myalgia Integumentary: no rash Neurologic: + falls and + confusion; no gait abnormality, no unsteadiness, no generalized weakness, no dizziness and no abnormal speech Physical Exam Constitutional: cooperative; no acute distress Neck: trachea midline, no thyromegaly Respiratory: normal respiratory effort Auscultation: + diminished lung sounds, + crackles and + rales; no rhonchi and no wheezes Cardiovascular: Rate/Rhythm: regular rate and regular rhythm Heart Sounds: normal S1 and normal S2 Vessels: no JVD and no carotid bruit Gastrointestinal (Abdomen): Inspection/Auscultation: abdomen normal to inspection Percussion/Palpation: abdomen soft; abdomen nontender, no guarding, abdomen not rigid and no hepatosplenomegaly Heme-negative per ER physician Skin: no rashes, warm and dry Results & Data Results & Data ([facility]) Vital Signs (Past 12 Hours) Vital Signs Temp Pulse Pulse Resp BP BP Pulse Ox 03/17/21 18:20 70 23 122/78 99 03/17/21 18:10 68 19 98 03/17/21 18:00 68 20 96 03/17/21 17:50 72 18 03/17/21 17:45 71 18 150/63 H 94 03/17/21 17:40 73 21 98 03/17/21 17:30 68 19 95 03/17/21 17:27 106 H 19 03/17/21 17:00 68 14 100 03/17/21 16:50 67 24 91 03/17/21 16:41 96 03/17/21 16:40 65 22 108/65 99 03/17/21 16:30 62 19 96 03/17/21 16:20 63 20 98 03/17/21 16:10 65 20 111/67 95 03/17/21 16:00 101 H 22 93 03/17/21 15:50 64 23 97 03/17/21 15:40 66 24 98 03/17/21 15:31 65 18 97 03/17/21 15:24 36.5 C 64 19 88/56 L 97 Laboratory Results Laboratory Results WBC 4.75 K/uL (4.8-10.8) L 03/17/21 15:53 RBC 2.90 M/uL (4.7-6.1) L 03/17/21 15:53 Hgb 7.3 g/dL (14.0-18.0) L 03/17/21 15:53 Hct 22.1 % (42-52) L 03/17/21 15:53 MCV 76.2 fL (80-100) L 03/17/21 15:53 MCH 25.2 pg (25-34) 03/17/21 15:53 MCHC 33.0 g/dL (32-36) 03/17/21 15:53 RDW Std Deviation 55.2 fL (36.4-46.3) H 03/17/21 15:53 RDW Coeff of Raul 19.7 % (11.5-14.5) H 03/17/21 15:53 Plt Count 210 K/uL (130-400) 03/17/21 15:53 MPV 9.6 fL (7.4-10.4) 03/17/21 15:53 Immature Gran % (Auto) 0.2 % 03/17/21 15:53 Neut % (Auto) 77.7 % 03/17/21 15:53 Lymph % (Auto) 10.5 % 03/17/21 15:53 [place] % (Auto) 9.5 % 03/17/21 15:53 Eos % (Auto) 2.1 % 03/17/21 15:53 Baso % (Auto) 0.0 % 03/17/21 15:53 Neut # (Auto) 3.69 K/uL (1.4-6.5) 03/17/21 15:53 Lymph # (Auto) 0.50 K/uL (1.2-3.4) L 03/17/21 15:53 [place] # (Auto) 0.45 K/uL (0.11-0.59) 03/17/21 15:53 Eos # (Auto) 0.10 K/uL (0-0.5) 03/17/21 15:53 Baso # (Auto) 0.00 K/uL (0-0.2) 03/17/21 15:53 Immature Gran # (Auto) 0.01 K/uL (0.00-0.02) 03/17/21 15:53 Polychromasia 1+ 03/17/21 15:53 Hypochromasia Present 03/17/21 15:53 Ovalocytes 1+ 03/17/21 15:53 Echinocytes 1+ 03/17/21 15:53 PT 10.8 Seconds (9.0-12.0) 03/17/21 15:53 INR 1.1 (0.9-1.1) 03/17/21 15:53 APTT 29.1 Seconds (21.0-31.0) 03/17/21 15:53 PTT Ratio 1.1 03/17/21 15:53 VBG pH 7.36 (7.36-7.41) 03/17/21 15:53 VBG pCO2 44 mmHg (38-50) 03/17/21 15:53 VBG pO2 23 mmHg 03/17/21 15:53 VBG HCO3 24 mmol/L 03/17/21 15:53 VBG O2 Saturation < 60.0 % 03/17/21 15:53 VBG Base Excess -1.3 mEq/L 03/17/21 15:53 Barometric Pressure 733.6 mm/Hg 03/17/21 15:53 Sodium 131 mmol/L (136-145) L 03/17/21 15:53 Potassium 4.4 mmol/L (3.5-5.1) 03/17/21 17:05 Chloride 103 mmol/L (98-107) 03/17/21 15:53 Carbon Dioxide 23 mmol/L (21-32) 03/17/21 15:53 Anion Gap 5.0 (3-11) 03/17/21 15:53 BUN 17 mg/dl (7-18) 03/17/21 15:53 Creatinine 1.00 mg/dl (0.6-1.4) 03/17/21 15:53 Est Cr Clr Drug Dosing 68.5 ml/min 03/17/21 15:53 Est GFR ( Amer) 89.9 ml/min 03/17/21 15:53 Est GFR (Non-Af Amer) 77.5 ml/min 03/17/21 15:53 BUN/Creatinine Ratio 17.4 (10-20) 03/17/21 15:53 Glucose 79 mg/dl (70-99) 03/17/21 15:53 Lactate 1.3 mmol/L (0.4-2.0) 03/17/21 15:53 Calcium 8.4 mg/dl (8.5-10.1) L 03/17/21 15:53 Magnesium 2.1 mg/dl (1.8-2.4) 03/17/21 17:05 Total Bilirubin 0.4 mg/dl (0.2-1) 03/17/21 15:53 AST 14 U/L (15-37) L 03/17/21 17:05 ALT 8 U/L (12-78) L 03/17/21 15:53 Alkaline Phosphatase 63 U/L (45-117) 03/17/21 15:53 Ammonia 35.0 umol/L (11-32) H 03/17/21 17:05 Troponin I < 0.015 ng/ml (0-0.045) 03/17/21 15:53 Total Protein 7.4 gm/dl (6.4-8.2) 03/17/21 15:53 Albumin 2.1 gm/dl (3.4-5.0) L 03/17/21 15:53 Globulin 5.3 gm/dl (2.5-4.0) H 03/17/21 15:53 Albumin/Globulin Ratio 0.4 (0.9-2) L 03/17/21 15:53 Procalcitonin < 0.05 ng/ml (0-0.5) 03/17/21 15:53 Urine Color Yellow 03/17/21 17:43 Urine Appearance Clear (Clear) 03/17/21 17:43 Urine pH 7.0 (4.5-7.5) 03/17/21 17:43 Ur Specific [place] 1.029 (1.000-1.030) 03/17/21 17:43 Urine Protein Negative (Negative) 03/17/21 17:43 Urine Glucose (UA) Negative (Negative) 03/17/21 17:43 Urine Ketones Negative (Negative) 03/17/21 17:43 Urine Blood Negative (Negative) 03/17/21 17:43 Urine Nitrite Negative (Negative) 03/17/21 17:43 Urine Bilirubin Negative (Negative) 03/17/21 17:43 Urine Urobilinogen Negative (Negative) 03/17/21 17:43 Ur Leukocyte Esterase Negative (Negative) 03/17/21 17:43 Valproic Acid 95 mcg/ml (50-100) 03/17/21 15:53 COVID-19 Eval Order Covid19 at [facility] 03/17/21 17:30 SARS-CoV-2 (PCR) NEGATIVE (Negative) 03/17/21 17:30 Blood Type AB Positive 03/17/21 15:59 Antibody Screen NEGATIVE 03/17/21 15:59 Impressions Abdomen/Pelvis CT 03/17/21 15:37 CT angio chest PE protocol, CT abd pelvis IV con only HISTORY: 66 years-old Male with PE. Acute chest and abdominal trauma status post fall. Acute generalized chest and abdominal pain TECHNIQUE: Multiple CTA images of the chest were obtained after the intravenous administration of 116 ml Optiray. Coronal and sagittal MIPS were obtained from the axial data set and were submitted for review. All measurements were obtained according to NASCET criteria. CT abdomen and pelvis with IV contrast only was also obtained. A dose lowering technique was utilized adhering to the principles of ALARA. COMPARISON: CT lumbar spine 03/13/2021, CTA chest 07/16/2020, CT abdomen and pelvis 05/17/2018 FINDINGS: CTA: The heart is mildly enlarged. No pericardial effusion. Extensive coronary artery calcifications. Atherosclerosis of the thoracic aorta without aneurysm or dissection. Carotid occlusion of the common carotid arteries redemonstrated. The pulmonary arterial tree is opacified to level of the proximal subsegmental branches and demonstrates no filling defects to suggest thromboembolic disease. CT CHEST: No thyroid nodule. There is no new adenopathy of the chest. Bilateral perihilar consolidation with air bronchograms is redemonstrated and appears similar to mildly progressed from comparison. Moderate sized left pleural effusion has decreased in size from comparison. Small right pleural effusion. Bronchial wall thickening. Subpleural groundglass opacities which are most pronounced in the right lung apex are also unchanged. Mild intralobular septal thickening. Dependent left lung base consolidation. Mild groundglass densities of the right lung base. No suspicious pulmonary nodules or masses. Tracheobronchial secretions. Chronic pleural thickening of the left hemithorax. Unremarkable soft tissues. No acute fracture. Chronic left rib fracture deformities. Degenerative changes of the shoulders and spine. CT ABDOMEN/PELVIS: NO pneumatosis or pneumoperitoneum. The spleen, mildly atrophic pancreas, adrenal glands and liver appear unremarkable. The gallbladder is decompressed. Mild wall thickening of the fundus on image 92 is similar to comparison suspicious for adenomyomatosis. No biliary ductal dilation. Patency of the portal vein. No hydronephrosis. 10 mm left renal cyst. Mild urinary bladder wall thickening with partial distention. Unremarkable prostate. Extensive atherosclerotic plaque the abdominal aorta and branch vessels. Atherosclerotic plaque of the abdominal aorta just below the level of the renal arteries on image 164 is similar to comparison resulting in approximately 50% luminal narrowing. There is stenosis of the bilateral renal arteries. There is occlusion versus high-grade stenosis of the left common iliac artery with minimal flow noted within the left external iliac artery, unchanged. Bifemoral bypass graft appears patent. No adenopathy. Unremarkable IVC. No bowel obstruction or bowel wall thickening. Scattered colonic air-fluid levels are noted with mild fecal retention. Normal appendix. Scattered small bowel air-fluid levels are also noted. Degenerative changes of the spine, pelvis and hips. No acute fracture or subluxation identified. Sclerotic changes of the left medial femoral neck are unchanged. Several Schmorl's nodes are redemonstrated. IMPRESSION: 1. No pulmonary emboli. 2. Moderate left pleural effusion has mildly decreased in size from 07/16/2020. Small right pleural effusion. 3. Dependent consolidation of the left lung base favors atelectasis. Pneumonia considered less likely. 4. Perihilar consolidation with air bronchograms suggestive of fibrosis redemonstrated. 5. Mild intralobular septal thickening suggestive of pulmonary edema. 6. No acute posttraumatic intra-abdominal or intrapelvic abnormality identified. 7. Scattered air-fluid levels throughout loops of nondilated large and small bowel may be physiologic or represent a nonspecific enteritis with diarrheal illness. 8. Additional findings as above. ACT 112: Negative or not required by law. The above report was generated using voice recognition software. It may contain grammatical, syntax or spelling errors. Electronically signed by: Александр Moore M.D. 03/17/2021 5:[address] 03/17/21 15:37 CT head/brain wo con CLINICAL HISTORY: 66 years-old Male with AMS. Acutely altered mental status TECHNIQUE: Multiple axial CT images of the head were obtained without contrast. A dose lowering technique was utilized adhering to the principles of ALARA. COMPARISON: Head CT 03/13/2021 FINDINGS: No acute intracranial hemorrhage, midline shift, intracranial mass, hydrocephalus, territorial ischemia or abnormal extra-axial collection. Age- related involutional changes. White matter hypodensities suggestive of chronic microvascular ischemic disease. 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 Cerebral vascular calcifications. Study is mildly motion degraded. The calvarium is intact. The paranasal sinuses, mastoid air cells, and middle ear cavities are clear. IMPRESSION: 1. No acute intracranial abnormality. 2. Chronic findings as above. ACT 112: Negative or not required by law. The above report was generated using voice recognition software. It may contain grammatical, syntax or spelling errors. Electronically signed by: Александр Moore M.D. 03/17/2021 5:22 PM Chest X-Ray 03/17/21 15:38 XR chest 1V portable HISTORY: 66 years-old Male SEPSIS acute sepsis COMPARISON: Chest radiograph 03/13/2021 TECHNIQUE: Portable AP view the chest FINDINGS: Cardiac silhouette is unchanged. Unchanged left greater than right pleural effusions. Persistent right perihilar opacities. No significant change of the left greater than right bilateral airspace opacities. Mildly progressed interstitial coarsening. No pneumothorax. Degenerative changes of the shoulders and spine. Healed chronic left-sided rib fractures. Right shoulder rotator cuff calcific tendinosis. IMPRESSION: 1. Mildly progressed interstitial coarsening may represent pulmonary edema. 2. Otherwise stable exam with left greater than right pleural effusions and left lung predominant airspace opacities. ACT 112: Negative or not required by law. The above report was generated using voice recognition software. It may contain grammatical, syntax or spelling errors. Electronically signed by: Александр Moore M.D. 03/17/2021 4:02 PM Chest CTA 03/17/21 15:59 CT angio chest PE protocol, CT abd pelvis IV con only HISTORY: 66 years-old Male with PE. Acute chest and abdominal trauma status post fall. Acute generalized chest and abdominal pain TECHNIQUE: Multiple CTA images of the chest were obtained after the intravenous administration of 116 ml Optiray. Coronal and sagittal MIPS were obtained from the axial data set and were submitted for review. All measurements were obtained according to NASCET criteria. CT abdomen and pelvis with IV contrast only was also obtained. A dose lowering technique was utilized adhering to the principles of ALARA. COMPARISON: CT lumbar spine 03/13/2021, CTA chest 07/16/2020, CT abdomen and pelvis 05/17/2018 FINDINGS: CTA: The heart is mildly enlarged. No pericardial effusion. Extensive coronary artery calcifications. Atherosclerosis of the thoracic aorta without aneurysm or dissection. Carotid occlusion of the common carotid arteries redemonstrated. The pulmonary arterial tree is opacified to level of the proximal subsegmental branches and demonstrates no filling defects to suggest thromboembolic disease. CT CHEST: No thyroid nodule. There is no new adenopathy of the chest. Bilateral perihilar consolidation with air bronchograms is redemonstrated and appears similar to mildly progressed from comparison. Moderate sized left pleural effusion has decreased in size from comparison. Small right pleural effusion. Bronchial wall thickening. Subpleural groundglass opacities which are most pronounced in the right lung apex are also unchanged. Mild intralobular septal thickening. Dependent left lung base consolidation. Mild groundglass densities of the right lung base. No suspicious pulmonary nodules or masses. Tracheobronchial secretions. Chronic pleural thickening of the left hemithorax. Unremarkable soft tissues. No acute fracture. Chronic left rib fracture deformities. Degenerative changes of the shoulders and spine. CT ABDOMEN/PELVIS: NO pneumatosis or pneumoperitoneum. The spleen, mildly atrophic pancreas, adrenal glands and liver appear unremarkable. The gallbladder is decompressed. Mild wall thickening of the fundus on image 92 is similar to comparison suspicious for adenomyomatosis. No biliary ductal dilation. Patency of the portal vein. No hydronephrosis. 10 mm left renal cyst. Mild urinary bladder wall thickening with partial distention. Unremarkable prostate. Extensive atherosclerotic plaque the abdominal aorta and branch vessels. Atherosclerotic plaque of the abdominal aorta just below the level of the renal arteries on image 164 is similar to comparison resulting in approximately 50% luminal narrowing. There is stenosis of the bilateral renal arteries. There is occlusion versus high-grade stenosis of the left common iliac artery with minimal flow noted within the left external iliac artery, unchanged. Bifemoral bypass graft appears patent. No adenopathy. Unremarkable IVC. No bowel obstruction or bowel wall thickening. Scattered colonic air-fluid levels are noted with mild fecal retention. Normal appendix. Scattered small bowel air-fluid levels are also noted. Degenerative changes of the spine, pelvis and hips. No acute fracture or subluxation identified. Sclerotic changes of the left medial femoral neck are unchanged. Several Schmorl's nodes are redemonstrated. IMPRESSION: 1. No pulmonary emboli. 2. Moderate left pleural effusion has mildly decreased in size from 07/16/2020. Small right pleural effusion. 3. Dependent consolidation of the left lung base favors atelectasis. Pneumonia considered less likely. 4. Perihilar consolidation with air bronchograms suggestive of fibrosis redemonstrated. 5. Mild intralobular septal thickening suggestive of pulmonary edema. 6. No acute posttraumatic intra-abdominal or intrapelvic abnormality identified. 7. Scattered air-fluid levels throughout loops of nondilated large and small bowel may be physiologic or represent a nonspecific enteritis with diarrheal illness. 8. Additional findings as above. ACT 112: Negative or not required by law. The above report was generated using voice recognition software. It may contain grammatical, syntax or spelling errors. Electronically signed by: Александр Moore M.D. 03/17/2021 5:[address] 03/17/21 16:08 CT cervical spine wo con CT DOSE: 2022.57 mGy.cm CLINICAL HISTORY: 66 years-old Male with fall. Acute head and neck injury status post fall COMPARISON: Head CT of same day, CT cervical spine 02/24/2021 TECHNIQUE: Multiple axial CT images of the cervical spine were obtained without contrast. A dose lowering technique was utilized adhering to the principles of ALARA. FINDINGS: Moderate to severe multilevel intervertebral disc space narrowing and spondylitic spurring with moderate facet arthrosis redemonstrated. No acute fracture or subluxation. Multilevel neural foraminal narrowing. The mastoid air cells are clear. Extensive calcified plaque of the carotid arteries. No pneumothorax. Pleural parenchymal scarring of the right lung apex. No prevertebral edema. IMPRESSION: No acute cervical spine fracture or subluxation. ACT 112: Negative or not required by law. The above report was generated using voice recognition software. It may contain grammatical, syntax or spelling errors. Electronically signed by: Александр Moore M.D. 03/17/2021 5:40 PM PG Care Time/CCT Total # of Minutes Spent Total Time Spent with Patient: Total time spent is greater than 50% in coordination of care (as documented) at patient's floor/unit and/or counseling patient: Coding Level of Care Code INT OBSERVATION CARE 70M LVL 3 Diagnoses Fall W19.XXXA Encounter type: initial encounter CKD (chronic kidney disease) stage 2, GFR 60-89 ml/min N18.2 Chronic hypoxemic respiratory failure J96.11 COPD (chronic obstructive pulmonary disease) with chronic bronchitis J44.9 History of lung cancer Z85.118 Anemia D64.9 (1) Fall Encounter type: initial encounter Qualified Code(s): W19.XXXA - Unspecified fall, initial encounter
[2021-03-18] MEDS ORDERED: DIVALPROEX DELAY RELEASE 250 MG TABEC PO SCH (01:47)
[2021-03-18] MEDS ORDERED: QUEtiapine FUMARATE 25 MG TABLET PO SCH (01:47)
[2021-03-18] MEDS ORDERED: SODIUM CHLORIDE 0.9% 250 ML IV PRN (01:47)
[2021-03-18] MEDS ORDERED: MELATONIN 3 MG TAB PO PRN (02:08)
[2021-03-18 02:43] LABS: BUN Creatinine Ratio 12.8 (10-20); Calcium 9.1 mg/dl (8.5-10.1); Creatinine Clr Calc Pharmacy 73.7 ml/min; Est GFR (African American) 98.1 ml/min; Est GFR (Non-African American) 84.6 ml/min; Magnesium 2.1 mg/dl (1.8-2.4); Potassium 4.4 mmol/L (3.5-5.1)
[2021-03-18] MEDS: DIVALPROEX DELAY RELEASE 500 MG TAB PO SCH ×2 (02:43→21:41)
[2021-03-18] MEDS: ASCORBIC ACID 500 MG TAB PO SCH ×3 (02:43→21:41)
[2021-03-18 02:45] LABS: Hemoglobin 9.9 g/dL (14.0-18.0); Mean Corpuscular Hemoglobin 25.1 pg (25-34); Mean Corpuscular Volume 76.1 fL (80-100); Mean Platelet Volume 9.8 fL (7.4-10.4); Platelet Count 268 K/uL (130-400); RDW Coefficient of Variation 19.4 % (11.5-14.5); RDW Standard Deviation 54.4 fL (36.4-46.3); Red Blood Count 3.94 M/uL (4.7-6.1); White Blood Count 3.88 K/uL (4.8-10.8)
[2021-03-18 02:46] LABS: Echinocytes 1+; Eosinophils # (auto) 0.16 K/uL (0-0.5); Eosinophils % (auto) 4.1 %; Hypochromasia Present; Immature Granulocytes # (auto) 0.01 K/uL (0.00-0.02); Immature Granulocytes % (auto) 0.3 %; Lymphocytes # (auto) 0.38 K/uL (1.2-3.4); Lymphocytes % (auto) 9.8 %; Monocytes # (auto) 0.33 K/uL (0.11-0.59); Monocytes % (auto) 8.5 %; Neutrophils % (auto) 77.3 %; Ovalocytes 1+
[2021-03-18 03:09] LABS: Folate (Folic Acid) 2.5 ng/ml (>5.38)
[2021-03-18] MEDS: DUTASTERIDE - ORDER AWAITING ACTION SCH ×3 (08:06→23:47)
[2021-03-18] MEDS ORDERED: METOPROLOL SUCC 25MG EXT REL TAB PO SCH (09:00)
[2021-03-18] MEDS: DIVALPROEX DELAY RELEASE 250 MG TABEC PO SCH (10:04)
[2021-03-18] MEDS: PANTOprazole 40 MG TAB PO SCH (10:04)
[2021-03-18] MEDS: CHOLECALCIFEROL 1,000 UNITS 25 MCG TAB PO SCH (10:05)
[2021-03-18] MEDS: buPROPion HCl 100 MG TABLET PO SCH (10:05)
[2021-03-18] MEDS: FLUTICASONE FUROATE 100MCG 14 PUFFS/INHALER INH SCH (10:55)
[2021-03-18] MEDS: UMECLIDINIUM/VILANTEROL 62.5/25MCG 7 PUFFS/INHALER INH SCH (10:56)
--- NOTE | 2021-03-18 11:50 | Hospitalist Progress Note ---
Date of Service March 18, 2021 Assessment & Plan (1) Fall: Plan: Suspect the patient's falls are multifactorial: generalized deconditioning, hypotension Reduce Seroquel given his current fatigue PT/OT evaluation Further treatment as detailed below (2) Anemia: Plan: Appears to be stable without intervention. No blood was transfused. Will repeat CBC in AM LDH WNL, haptoglobin pending. Iron level 35, TIBC 275, 12.7% saturation B12 479 Folate low - start on supplementation for this (3) Hypotension: Plan: Discontinue metoprolol (4) CKD (chronic kidney disease) stage 2, GFR 60-89 ml/min: Plan: Renal function appears to be at baseline in this patient, continue to monitor (5) Chronic hypoxemic respiratory failure: Plan: Patient is not on supplemental oxygen, continue to monitor (6) COPD (chronic obstructive pulmonary disease) with chronic bronchitis: Plan: Patient is a very history of COPD, still smoking despite lung cancer diagnosis Continue Trelegy or pharmacy equivalent Continue to monitor (7) History of lung cancer: Plan: Appreciate heme/onc consult MRI brain w/wo contrast (8) Recurrent left pleural effusion: Plan: Consult pulmonology (9) Peripheral arterial disease: Plan: Patient should be on antiplatelet/statin, will hold pending Hgb stability but recommend at least Plavix on discharge. History of aortofemoral bypass per prior notes (10) Bilateral carotid artery occlusion: Plan: as above (11) Unstageable pressure ulcer of left heel: Plan: XR ankle to assess for OM, no surrounding cellulitis Plan: I am unclear why he is on a number of medications including depakote, seroquel and wellbutrin VTE Prophylaxis - SCDs Diet - regular Admission and Anticipated Discharge Date Admission Date: March 17, 2021 Subjective Patient reports ongoing weakness and fatigue. Willing to consider rehabilitation. Wheelchair bound - he reports from a neuropathy after a heel ulcer became infected. Tells me he came to the ER just because his landlord said he looked bad. Unable to give me any medical history regarding his cancer diagnosis. Denies any nausea, vomiting, abdominal pain or diarrhea. No chest pain. He is chronically short of breath but I am unclear whether this is worse than normal. On discussion with Dr Keene he was lost to follow up for his stage III lung cancer - planning on MRI brain to assess for malignant disease. Discussed with Tomy Anguiano (pulmonology) - patient not consentable for thoracocentesis and in no distress from this, therefore no procedure recommended at this time. Review of Systems Review of Systems: All systems reviewed & are unremarkable except as noted in HPI & below Physical Exam Constitutional: well developed and + frail appearing; + not well nourished and no acute distress Eyes: PERRL, conjunctivae normal, anicteric sclerae ENMT: Mouth: + dry oral mucous membranes Neck: trachea midline, no thyromegaly Respiratory: normal respiratory effort; no respiratory distress Auscultation: + diminished lung sounds (throughout L > R); no crackles and no wheezes Cardiovascular: RRR, no murmur, no edema Gastrointestinal (Abdomen): normal bowel sounds, soft, nontender, no hepatosplenomegaly Skin: + ulcer (left heel unstageable without surrounding cellulitis) Neurologic: moves all extremities (although reports he is wheelchair bound) and awake; no focal motor deficits (no lateralizing weakness) and not confused Motor/Sensory: no pronator drift Psychiatric: Orientation: alert, oriented to person and oriented to place; + not oriented to time Genitourinary: no CVA tenderness Results & Data Results & Data ([facility]) Vital Signs (Past 12 Hours) Vital Signs Temp Pulse Pulse Resp BP BP Pulse Ox 03/18/21 11:28 36.8 C 77 17 102/71 94 03/18/21 08:34 97 03/18/21 08:30 80 18 104/67 03/18/21 04:16 36.9 C 77 20 102/65 96 03/18/21 02:00 78 18 151/85 H 95 03/18/21 01:47 74 18 03/18/21 01:00 74 20 137/87 95 03/18/21 00:30 74 21 138/75 94 03/18/21 00:00 71 20 132/75 94 PG Care Time/CCT Total # of Minutes Spent Total Time Spent with Patient: Total time spent is greater than 50% in coordination of care (as documented) at patient's floor/unit and/or counseling patient: Coding Level of Care Code 73066 Subseq Hosp Care Lvl 3 Diagnoses Fall W19.XXXA Encounter type: initial encounter Anemia D64.9 CKD (chronic kidney disease) stage 2, GFR 60-89 ml/min N18.2 Chronic hypoxemic respiratory failure J96.11 COPD (chronic obstructive pulmonary disease) with chronic bronchitis J44.9 History of lung cancer Z85.118 Recurrent left pleural effusion J90 Bilateral carotid artery occlusion I65.23 Peripheral arterial disease I73.9 Unstageable pressure ulcer of left heel L89.620 Hypotension I95.9 (1) Fall Encounter type: initial encounter Qualified Code(s): W19.XXXA - Unspecified fall, initial encounter
--- NOTE | 2021-03-18 12:19 | Electrocardiogram Report ---
Test Reason : Blood Pressure : / mmHG Vent. Rate : 064 BPM Atrial Rate : 064 BPM P-R Int : 132 ms QRS Dur : 086 ms QT Int : 420 ms P-R-T Axes : 028 028 042 degrees QTc Int : 433 ms Normal sinus rhythm Low voltage QRS Borderline ECG When compared with ECG of 13-MAR-2021 18:32, No significant change was found Confirmed by Michael Patel ([id number]) on 03/18/2021 12:18:19 PM Referred By: Confirmed By:Michael Patel
[2021-03-18] MEDS: FOLIC ACID 1 MG TAB PO SCH (13:13)
--- NOTE | 2021-03-18 13:39 | XRay Report ---
LEFT ANKLE 3 VIEWS CLINICAL HISTORY: Left heel ulcer. FINDINGS: 3 views of the left ankle are correlated with radiographs of the left foot dated 07/09/2017. The skeletal structures are osteopenic. No fracture is identified. The ankle mortise is intact. There are large dorsal and plantar calcaneal enthesophytes. A cutaneous ulceration is suggested along the dorsal aspect of the heel. There is no underlying bony erosion or periostitis to suggest osteomyeliti s. Atherosclerotic calcification is noted in the regional arteries. IMPRESSION: 1. No acute bony abnormality is identified. 2. A soft tissue ulcer and edema is suggested along the dorsal aspect of the heel. 3. Heel spurs. Electronically signed by: Tomy Thompson M.D. 03/18/2021 1:37 PM
--- NOTE | 2021-03-18 14:22 | Pulmonary Consultation ---
Date of Consultation March 18, 2021 Assessment & Plan (1) COPD (chronic obstructive pulmonary disease) with chronic bronchitis: (2) Recurrent left pleural effusion: (3) History of lung cancer: (4) Pulmonary nodule: Attending: Dr. Morin Impression: 66-year-old male with a history of adenocarcinoma of the lung, recurrent pleural effusion, COPD, persistent tobacco abuse presents with fall and shortness of breath. Chest x-ray and CT scan of the chest show persistent left pleural effusion which appears slightly smaller than July 2020. Patient with history of thoracentesis in the past x2. Both samples of pleural fluid revealed lymphocytes with no evidence of malignant cells consistent with his lung cancer. Patient continues to be a some day smoker. Recommendations: 1. Pleural effusion: This is recurrent pleural effusion which has been tapped in the past. Previous pleural fluid revealed primarily TMB lymphocytes with increase in plasma cells. Fluid is never revealed malignant cells. At this time, patient is in no respiratory distress. He is saturating 97 to 98% on room air. In my discussion with the patient he does not appear to be consentable. He is unable to provide me with any family members or alternate decision makers to discuss procedures. Inasmuch as this is not an emergent procedure, will defer on invasive thoracentesis at this time and continue to monitor. If patient has increased shortness of breath or hypoxia, would repeat imaging and consider thoracentesis at that time. 2. COPD: Patient is on Trelegy Ellipta (ICS/AC/LABA) as an outpatient. While in inpatient we will use fluticasone furoate (ICS) and Umeclidinium/Vilanterol (AC/LABA). No overt wheezing on exam. SaO2 in the mid to high 90s on room air. We will continue to monitor and if patient does require supplemental oxygen at some point in this admission, would maintain SaO2 between 88 and 92%. Most recent pulmonary function testing was completed 02/16/2019 with mild obstructive physiology with no significant bronchodilator response. 3. Stage III lung cancer: Follows with Dr. Keene. Pleural fluid in the past has not shown malignant cells. Further management per oncology. 4. Pulmonary nodule: No need for further management as patient is following for stage III lung cancer as listed above. 5. Tobacco abuse: Follow patient for signs of withdrawal. Consider NicoDerm patch as needed Thank you for including us in the care of this patient. We will sign off at this time. Please feel free to reconsult as needed. Findings and recommendations discussed personally with Dr. Omid Cole of the primary hospitalist team. Supervising Physician Co-Signing Physician Notes Patient seen and examined. EMR reviewed. Discussed with PERRY and agree with as sessment and plan as noted. Patient has a chronic effusion which is lymphocytic. At this point in time he does not appear overtly symptomatic and does not appear to have mental capacity to consent for the procedure. There is no family immediately available. MRI of the brain has been ordered by his oncologist. Agree with supportive care currently. If the patient has clearing of his sensorium to allow for consent and his pleural effusion is felt to be symptomatic, would be happy to reevaluate for possible thoracentesis. Otherwise the patient should follow-up in the outpatient setting with Dr. Mckay as previously recommended. History of Present Illness Attending Physician: Omid Cole MD History of Present Illness Attending: Dr. Morin This is a 66-year-old male who appears older than his stated age with a past medical history including chronic kidney disease stage II, hx COVID-19 pneumonia, COPD, prediabetes with a hemoglobin A1c of 5.9, lung cancer, hepatic steatosis, ataxic gait, bilateral carotid artery occlusion, peripheral arterial disease, recurrent left pleural effusion, esophageal stenosis, history of esophagitis, hiatal hernia, memory loss, peripheral neuropathy, mesenteric lymphadenitis, ischemic pain of right lower extremity, tobacco abuse current everyday smoker. Patient seen and examined in room D2 a in the emergency department. Patient is unable to give me history. He does answer some questions appropriately. But is not alert and oriented x4. He states he is a little bit short of breath compared to usual. He also states that he was told that there is fluid in his lungs and that his lungs "feel full". He denies any cough or sputum production. He is unaware of any tachyarrhythmia. Patient states he continues to smoke but infrequently and not every day. Patient is on Trelegy inhaler. He reports that he uses his inhaler as scheduled. Patient does have a stage III adenocarcinoma of the lung which is unclear as to what the treatment plan has. He is unable to tell me who his oncologist is. When asked about family, patient says he does not have any family or other decision-maker for him. He [place] lives [place] the [place]. Patient does not appear in any respiratory distress. Patient is saturating 97 to 98% on room air. Patient denies any fever, chills, sweats, rigors. He denies any pleuritic pain. He denies any chest pain. Patient does not know if he is vaccinated for Covid or not. Review of the [facility] record does not show any vaccination for COVID-19. Allergies Allergy/AdvReac Type Severity Reaction Status Date / Time ciprofloxacin Allergy Intermediate RASH Verified 03/17/21 16:31 vancomycin Allergy Intermediate RASH Verified 03/17/21 16:31 sulfamethoxazole Allergy Unknown Unknown Verified 03/17/21 16:31 [From Bactrim] trimethoprim [From Bactrim] Allergy Unknown Unknown Verified 03/17/21 16:31 Home Medications Medication Instructions Recorded Confirmed Type acetaminophen 500 mg capsule 500 mg PO Q6H PRN 02/02/18 03/17/21 History ascorbic acid (vitamin C) 500 mg 500 mg PO BID cap 02/02/18 03/17/21 History capsule cholecalciferol (vitamin D3) 25 1,000 units PO DAILY 04/03/18 03/17/21 History mcg (1,000 unit) capsule ibuprofen 600 mg tablet 600 mg PO Q6H PRN #90 tab 01/08/19 03/17/21 Rx albuterol sulfate 90 mcg/actuation 2 puffs INH QID PRN #18 gm 01/29/19 03/17/21 Rx aerosol inhaler (Ventolin HFA) docusate sodium 100 mg capsule 100 mg PO DAILY PRN cap 01/29/19 03/17/21 History ketoconazole 2 % topical cream 1 applic TOP DAILY #90 g 02/12/20 03/17/21 Rx bupropion HCl 100 mg tablet 100 mg PO DAILY #90 tab 01/05/21 03/17/21 Rx divalproex 250 mg tablet,delayed 250 mg PO HS #90 tab 01/05/21 03/17/21 Rx release fluticasone fur. 100 mcg-umeclid 1 inh INHALATION Q24H #60 ea 01/05/21 03/17/21 Rx 62.5 mcg-vilant 25 mcg inhalat.powder (Trelegy Ellipta) metoprolol succinate 25 mg 25 mg PO DAILY #90 tab 01/28/21 03/17/21 Rx tablet,extended release 24 hr omeprazole 20 mg capsule,delayed 20 mg PO DAILY #90 cap 02/17/21 03/17/21 Rx release quetiapine 50 mg tablet 50 mg PO HS 02/24/21 03/17/21 History dutasteride 0.5 mg capsule 0.5 mg PO DAILY #90 cap 03/03/21 03/17/21 Rx divalproex 500 mg tablet,delayed See Rx Instructions .ROUTE .COMPLEX 03/17/21 03/17/21 History release melatonin 5 mg tablet 5 mg PO HS PRN 03/17/21 03/17/21 History Patient History Medical History Ataxic gait Benign prostate hyperplasia Bilateral carotid artery occlusion PT STATES NO SURGERY Bipolar disorder 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 Esophageal stenosis GERD (gastroesophageal reflux disease) Hepatic steatosis Hiatal hernia History of COVID-19 07/2020 ([facility]) H[facility]PITALIZED AT [facility] History of lung cancer (01/2016) 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 Homicidal ideation PT DENIES AT PRESENT TIME Hypertension Memory loss Osteomyelitis Peripheral arterial disease Peripheral neuropathy Recurrent left pleural effusion s/p thoracentesis August 2018 Restless leg syndrome Schizoaffective disorder Surgical History H/O foot surgery LEFT HEEL REMOVAL FROM PRESSURE ULCER History of bronchoscopy (01/2016) History of colonoscopy History of herniorrhaphy History of lobectomy of lung LOWER LEFT LUNG S/P peripheral artery angioplasty with stent placement (06/2016) [employer], 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 S/P thoracentesis (05/2019) L pleural effusion Status post femorofemoral bypass surgery (06/2016) [place] teeth removed Family History Brother Myocardial infarction Father Myocardial infarction Other Cancer Family history non-contributory Lung disease No family history of adverse response to anesthesia Denies family history of Tuberculosis Ovarian cancer Prostate cancer Diabetes Heart disease Allergies Breast cancer Emphysema, unspecified Lung cancer Colorectal cancer Asthma Social History Smoking Status: Current every day smoker Tobacco Type: Cigarettes Age Started Using Tobacco: 10; packs per day: 0.5; Years Smoked: 30; Cigarettes Per Day: 6-8 DAILY; Second Hand Exposure: Yes; Do You Dip or Chew Tobacco: Yes; Tobacco Cessation Education Requested by Patient: No Hx Alcohol Use: Yes Alcohol type: beer Alcohol Intake Frequency: 4 or More x per/Week Alcohol Intake Frequency Comment: mostly daily Hx Substance Use: Yes Prescribed Medications: Marijuana Last Used Substance: Days (ago) Last Used Substance Other:: 3 Preferred Language: Yi Communication Ability: Effective Visual Impairment: No Limitations Hearing Ability: Normal Shipping Lead Person Required: No Beliefs That Will Affect Care: None marital status: single Current Living Situation: Alone current occupational status: disabled How many Children do You have: 2 Other Information That Helps Us Care for You: No Feels Safe at Home: Yes Safety Concerns: Feels Safe At This Time Childhood Exposure to Second-Hand Smoke: Yes Diet Comment: regular caffeine: Yes (coffee 1 pot a day) during the past year weight has: remained stable Dental Care, Regularly: No Physical Activity Frequency: Does not Exercise Seatbelt Use: always Sunscreen Use: No Assistive Devices: None Review of Systems Review of Systems: All systems reviewed & are unremarkable except as noted in Subjective Physical Exam Physical Exam: GENERAL : No acute distress EYES: No icterus, gaze conjugate NOSE: No evidence of epistaxis MOUTH: No lesions or candidiasis NECK: Supple LUNGS: Bibasilar rales noted. No bronchospasm. Breath sounds appear equal bilaterally. HEART: Regular, rate controlled ABDOMEN: Soft, NT, ND, BS Present EXTREMITIES: No LE edema, pedal pulses intact NEURO: A&OX3 Results & Data Results & Data ([facility]) Vital Signs (Past 12 Hours) Vital Signs Temp Pulse Resp BP Pulse Ox 03/18/21 14:19 98/60 L 03/18/21 13:42 72/43 L 03/18/21 11:28 36.8 C 77 17 102/71 94 03/18/21 08:34 97 03/18/21 08:30 80 18 104/67 03/18/21 04:16 36.9 C 77 20 102/65 96 Laboratory Results 03/18/21 02:03 03/18/21 02:03 INR 1.1 (0.9-1.1) 03/17/21 15:[address] angio chest PE protocol, CT abd pelvis IV con only HISTORY: 66 years-old Male with PE. Acute chest and abdominal trauma status post fall. Acute generalized chest and abdominal pain TECHNIQUE: Multiple CTA images of the chest were obtained after the intravenous administration of 116 ml Optiray. Coronal and sagittal MIPS were obtained from the axial data set and were submitted for review. All measurements were obtained according to NASCET criteria. CT abdomen and pelvis with IV contrast only was also obtained. A dose lowering technique was utilized adhering to the principles of ALARA. COMPARISON: CT lumbar spine 03/13/2021, CTA chest 07/16/2020, CT abdomen and pelvis 05/17/2018 FINDINGS: CTA: The heart is mildly enlarged. No pericardial effusion. Extensive coronary artery calcifications. Atherosclerosis of the thoracic aorta without aneurysm or di ssection. Carotid occlusion of the common carotid arteries redemonstrated. The pulmonary arterial tree is opacified to level of the proximal subsegmental branches and demonstrates no filling defects to suggest thromboembolic disease. CT CHEST: No thyroid nodule. There is no new adenopathy of the chest. Bilateral perihilar consolidation with air bronchograms is redemonstrated and appears similar to mildly progressed from comparison. Moderate sized left pleural effusion has decreased in size from comparison. Small right pleural effusion. Bronchial wall thickening. Subpleural groundglass opacities which are most pronounced in the right lung apex are also unchanged. Mild intralobular septal thickening. Dependent left lung base consolidation. Mild groundglass densities of the right lung base. No suspicious pulmonary nodules or masses. Tracheobronchial secretions. Chronic pleural thickening of the left hemithorax. Unremarkable soft tissues. No acute fracture. Chronic left rib fracture def ormities. Degenerative changes of the shoulders and spine. CT ABDOMEN/PELVIS: NO pneumatosis or pneumoperitoneum. The spleen, mildly atrophic pancreas, adrenal glands and liver appear unremarkable. The gallbladder is decompressed. Mild wall thickening of the fundus on image 92 is similar to comparison suspicious for adenomyomatosis. No biliary ductal dilation. Patency of the portal vein. No hydronephrosis. 10 mm left renal cyst. Mild urinary bladder wall thickening with partial distention. Unremarkable prostate. Extensive atherosclerotic plaque the abdominal aorta and branch vessels. Atherosclerotic plaque of the abdominal aorta just below the level of the renal arteries on image 164 is similar to comparison resulting in approximately 50% luminal narrowing. There is stenosis of the bilateral renal arteries. There is occlusion versus high-grade stenosis of the left common iliac artery with minimal flow noted within the left external iliac artery, unchanged. Bifemoral bypass graft appears patent. No adenopathy. Unremarkable IVC. No bowel obstruction or bowel wall thickening. Scattered colonic air-fluid levels are noted with mild fecal retention. Normal appendix. Scattered small [place] air-fluid levels are also noted. Degenerative changes of the spine, pelvis and hips. No acute fracture or subluxation identified. Sclerotic changes of the left medial femoral neck are unchanged. Several Schmorl's nodes are redemonstrated. IMPRESSION: 1. No pulmonary emboli. 2. Moderate left pleural effusion has mildly decreased in size from 07/16/2020. Small right pleural effusion. 3. Dependent consolidation of the left lung base favors atelectasis. Pneumonia considered less likely. 4. Perihilar consolidation with air bronchograms suggestive of fibrosis redemonstrated. 5. Mild intralobular septal thickening suggestive of pulmonary edema. 6. No acute posttraumatic intra-abdominal or intrapelvic abnormality identified. 7. Scattered air-fluid levels throughout loops of nondilated large and small bowel may be physiologic or represent a nonspecific enteritis with diarrheal illness. 8. Additional findings as above. ACT 112: Negative or not required by law. The above report was generated using voice recognition software. It may contain grammatical, syntax or spelling errors. Electronically signed by: Александр Moore M.D. 03/17/2021 5:58 PM PG Care Time/CCT Total # of Minutes Spent Total Time Spent with Patient: Total time spent is greater than 50% in coordination of care (as documented) at patient's floor/unit and/or counseling patient: 40 minutes Coding Level of Care Code 93576 Initial Inpt Care Lvl 2 Diagnoses COPD (chronic obstructive pulmonary disease) with chronic bronchitis J44.9 Recurrent left pleural effusion J90 History of lung cancer Z85.118 Pulmonary nodule R91.1 Time Spent (min) 40
[2021-03-18] MEDS: QUEtiapine FUMARATE 25 MG TABLET PO SCH (21:41)
[2021-03-18] MEDS ORDERED: GADOBUTROL 65ML VIAL IV ONE (22:47)
--- NOTE | 2021-03-18 23:20 | Magnetic Resonance Report ---
MR brain wo/w con INDICATION: [place] ^known NSCC lung ca. ?Metastatic disease TECHNIQUE: Multiplanar and multisequence MR images of the brain were obtained prior to and following administration of gadolinium contrast. Comparison: Comparison is made to MRI brain 03/15/2017 FINDINGS: No abnormal restricted diffusion is identified. Foci of T2 and FLAIR hyperintensity are noted in the paraventricular areas consistent with chronic small vessel ischemic disease. Ex vacuo ventriculomegal y and sulcal enlargement is noted compatible with diffuse encephalomalacia. There is no evidence of a cute intraparenchymal hemorrhage. No extra axial fluid collections are seen. There are no masses, mas s effect, or midline shift. No abnormal enhancement is seen. The corpus callosum, pituitary gland, a nd cerebellar tonsils appear grossly unremarkable. Flow voids are not well visualized in either the left or right internal carotid arteries. The [place] is opacified, possibly from collateral posterior flow. The imaged portions of the paranasal sinuses, mastoid air cells, and orbits are unremarkable. IMPRESSION: No evidence of metastatic disease. The bilateral internal carotid arteries are not seen to be well op acified, however the vessels of the [place] are opacified, possibly from posterior cerebral flow. ACT 112: Negative or not required by law. Electronically signed by: Lanre Douglass M.D. 03/18/2021 11:18 PM
[2021-03-19 07:18] LABS: Eosinophils # (auto) 0.15 K/uL (0-0.5); Eosinophils % (auto) 3.8 %; Hematocrit (blood only) 27.8 % (42-52); Hemoglobin 9.2 g/dL (14.0-18.0); Lymphocytes # (auto) 0.49 K/uL (1.2-3.4); Lymphocytes % (auto) 12.4 %; Mean Corpuscular Hgb Conc 33.1 g/dL (32-36); Mean Corpuscular Volume 75.5 fL (80-100); Mean Platelet Volume 9.4 fL (7.4-10.4); Monocytes % (auto) 10.1 %; Neutrophils # (auto) 2.91 K/uL (1.4-6.5); Neutrophils % (auto) 73.7 %; Platelet Count 217 K/uL (130-400); RDW Coefficient of Variation 19.3 % (11.5-14.5); RDW Standard Deviation 53.8 fL (36.4-46.3); Red Blood Count 3.68 M/uL (4.7-6.1); White Blood Count 3.95 K/uL (4.8-10.8)
[2021-03-19] MEDS: DUTASTERIDE - ORDER AWAITING ACTION SCH ×2 (07:38→15:02)
[2021-03-19 07:55] LABS: BUN Creatinine Ratio 15.5 (10-20); Calcium 9.1 mg/dl (8.5-10.1); Est GFR (African American) 102.5 ml/min; Est GFR (Non-African American) 88.5 ml/min
[2021-03-19] MEDS: FOLIC ACID 1 MG TAB PO SCH (07:59)
[2021-03-19] MEDS: UMECLIDINIUM/VILANTEROL 62.5/25MCG 7 PUFFS/INHALER INH SCH (07:59)
[2021-03-19] MEDS: ASCORBIC ACID 500 MG TAB PO SCH ×2 (07:59→20:51)
[2021-03-19] MEDS: DIVALPROEX DELAY RELEASE 250 MG TABEC PO SCH (07:59)
[2021-03-19] MEDS: buPROPion HCl 100 MG TABLET PO SCH (07:59)
[2021-03-19] MEDS: PANTOprazole 40 MG TAB PO SCH (07:59)
[2021-03-19] MEDS: CHOLECALCIFEROL 1,000 UNITS 25 MCG TAB PO SCH (07:59)
[2021-03-19] MEDS: FLUTICASONE FUROATE 100MCG 14 PUFFS/INHALER INH SCH (08:00)
--- NOTE | 2021-03-19 09:58 | Hospitalist Progress Note ---
Date of Service March 19, 2021 Assessment & Plan (1) Fall: Plan: Suspect the patient's falls are multifactorial: generalized deconditioning, hypotension Reduce Seroquel given his current fatigue PT/OT evaluations pending Fall precautions for now (2) Anemia: Plan: Appears to be stable without intervention. No blood was transfused. Hemoglobin today is 9.2 g/Todd LDH WNL, haptoglobin pending. Iron level 35, TIBC 275, 12.7% saturation B12 479 Folate low - start on supplementation for this (3) Hypotension: Plan: Discontinue metoprolol Vital signs per protocol (4) CKD (chronic kidney disease) stage 2, GFR 60-89 ml/min: Plan: Renal function appears to be at baseline in this patient, continue to monitor (5) Chronic hypoxemic respiratory failure: Plan: Patient is not on supplemental oxygen, continue to monitor (6) COPD (chronic obstructive pulmonary disease) with chronic bronchitis: Plan: Patient with a very history of COPD, still smoking despite lung cancer diagnosis Trelegy (ICS/AC/LABA) as an outpatient We will substitute Anoro Ellipta (AC/LABA) and Arnuity Ellipta (ICS) while inpatient Oxygenating well on room air Continue to monitor vital signs per protocol (7) History of lung cancer: Plan: Hematology/oncology consulted -awaiting comment MRI brain w/wo contrast with no evidence of metastatic disease Await guidance from oncology for disposition (8) Recurrent left pleural effusion: Plan: Pulmonology consulted -appreciate Dr. Morin's input Patient was saturating well on room air yesterday Patient was not deemed to be consentable At this time we will continue to monitor clinically (9) Peripheral arterial disease: Plan: Patient should be on antiplatelet/statin, will hold pending Hgb stability but recommend at least Plavix on discharge. History of aortofemoral bypass per prior notes (10) Bilateral carotid artery occlusion: Plan: as above (11) Unstageable pressure ulcer of left heel: Plan: XR ankle to assess for OM, no surrounding cellulitis Skin care per nursing protocol Plan: Unclear as to why he is on a number of medications including depakote, seroquel and wellbutrin VTE Prophylaxis - SCDs Diet - regular Admission and Anticipated Discharge Date Admission Date: March 17, 2021 Supervising Physician Co-Signing Physician Notes Patient seen and examined, chart reviewed, case discussed with Tomy Anguiano PA-C and I agree with the assessment and plan as above Subjective Attending: Dr. Phan Patient states that he feels better today. He is sleeping well. He denies any shortness of breath. He has no chest pain or tightness. He continues to feel weak. Physical therapy and Occupational Therapy evaluations are pending Review of Systems Review of Systems: All systems reviewed & are unremarkable except as noted in Subjective Physical Exam Physical Exam: GENERAL : No acute distress. Pleasant EYES: No icterus, gaze conjugate NOSE: No evidence of epistaxis MOUTH: No lesions or candidiasis NECK: Supple LUNGS: CTA B/L, no wheezes, rales or rhonchi HEART: Regular, rate controlled ABDOMEN: Soft, NT, ND, BS Present EXTREMITIES: No LE edema, pedal pulses intact and equal bilaterally NEURO: A&OX3 Results & Data Results & Data ([facility]) Vital Signs (Past 12 Hours) Vital Signs Temp Pulse Pulse Resp BP Pulse Ox 03/19/21 07:41 37.1 C 76 20 138/60 100 03/18/21 23:53 36.6 C 69 16 134/78 100 Laboratory Results 03/19/21 07:08 03/19/21 07:08 Diagnostic Findings Brain MRI 03/18/21 12:50 MR brain wo/w con INDICATION: [place] ^^known NSCC lung ca. ?Metastatic disease TECHNIQUE: Multiplanar and multisequence MR images of the brain were obtained prior to and following administration of gadolinium contrast. Comparison: Comparison is made to MRI brain 03/15/2017 FINDINGS: No abnormal restricted diffusion is identified. Foci of T2 and FLAIR hyperintensity are noted in the paraventricular areas consistent with chronic small vessel ischemic disease. Ex vacuo ventriculomegaly and sulcal enlargement is noted compatible with diffuse encephalomalacia. There is no evidence of acute intraparenchymal hemorrhage. No extra axial fluid collections are seen. There are no masses, mass effect, or midline shift. No abnormal enhancement is seen. The corpus callosum, pituitary gland, and cerebellar tonsils appear grossly unremarkable. Flow voids are not well visualized in either the left or right internal carotid arteries. The [place] is opacified, possibly from collateral posterior flow. The imaged portions of the paranasal sinuses, mastoid air cells, and orbits are unremarkable. IMPRESSION: No evidence of metastatic disease. The bilateral internal carotid arteries are not seen to be well opacified, however the vessels of the [place] are opacified, possibly from posterior cerebral flow. ACT 112: Negative or not required by law. Electronically signed by: Lanre Douglass M.D. 03/18/2021 11:18 PM PG Care Time/CCT Total # of Minutes Spent Total Time Spent with Patient: Total time spent is greater than 50% in coordination of care (as documented) at patient's floor/unit and/or counseling patient: 25 minutes Coding Level of Care Code 91497 Subseq Hosp Care Lvl 2 Diagnoses Fall W19.XXXA Encounter type: initial encounter Anemia D64.9 Hypotension I95.9 CKD (chronic kidney disease) stage 2, GFR 60-89 ml/min N18.2 Chronic hypoxemic respiratory failure J96.11 COPD (chronic obstructive pulmonary disease) with chronic bronchitis J44.9 History of lung cancer Z85.118 Recurrent left pleural effusion J90 Peripheral arterial disease I73.9 Bilateral carotid artery occlusion I65.23 Unstageable pressure ulcer of left heel L89.620 Time Spent (min) 25 (1) Fall Encounter type: initial encounter Qualified Code(s): W19.XXXA - Unspecified fall, initial encounter
--- NOTE | 2021-03-19 12:56 | Consultation Report ---
MEDICAL ONCOLOGY CONSULTATION DATE OF SERVICE: 03/19/2021 REASON FOR CONSULTATION: Gentleman with a remote history of stage III non-small cell adenocarcinoma of the lung, admitted for a change in mental status and generalized weakness. HISTORY OF PRESENT ILLNESS: Mr. Luther is a pleasant 66-year-old gentleman with multiple comorbid issues including chronic kidney disease, COPD and history of stage III non-small cell lung cancer. He was originally diagnosed with stage III non-small cell lung cancer on 02/02/2016, underwent a thoracentesis by Dr. Poe. Originally, his disease was diagnosed by chest x-ray. He subsequently underwent a CT scan of the chest, which showed a 2.4 x 2.1 spiculated nodule in the left upper lobe with a 2.1 x 1.8 irregular density in the left AP window and a regional 1.8 x 1.5 lymph node anterior to the descending thoracic aorta. On 02/02/2016, Dr. Poe performed endobronchial ultrasound with biopsy FNA of L2 lymph node that revealed rare atypical cells consistent with metastatic adenocarcinoma. Endobronchial ultrasound-guided FNA of L4 lymph node was also positive for malignant cells with adenocarcinoma of lung primary. On 02/04/2016, he underwent staging PET scan, which revealed a FDG avid 2.2 cm left upper lobe spiculated nodule suspicious for primary bronchogenic carcinoma. The patient was staged as T1b, N3, M0. He was not an operative candidate and thus the rationale for chemoradiation utilizing carboplatin along with Alimta every 3 weeks in early 05/2016. The long and short of it, this gentleman had been lost to follow up, last seeing us in [facility] on 05/25/2019, he now reappears at [facility] with altered mental status and generalized weakness. Radiographic studies including a CT scan of the chest, abdomen and pelvis and MRI of the brain, neither of which have found direct evidence of disease recurrence. Apparently, this gentleman has a significant alcohol history as well. When I visited him at bedside, I asked him why he no longer followed up at [facility], he explained that he had "a new girlfriend." Communication with Mr. Luther at bedside was a bit less reliable, and apparently, he had suffered a fall at home. Symptoms leading up to admission to hospital are somewhat vague with the exception of a documented low blood pressure. His hemoglobin level was 7.3 on admission as well. PAST MEDICAL HISTORY: Significant for benign prostatic hypertrophy, bilateral carotid artery occlusion, bipolar disorder, chlamydial proctitis, COPD, esophageal stenosis, gastroesophageal reflux disease, hepatic steatosis, hiatal hernia, history of COVID-19, history of lung cancer, stage IIIB non-small cell lung cancer, status post chemoradiation, homicidal ideation, hypertension, osteomyelitis, peripheral arterial disease, peripheral neuropathy, recurrent left pleural effusion, restless legs syndrome, schizoaffective disorder. PAST SURGICAL HISTORY: Left heel pressure ulcer management, bronchoscopy, colonoscopy, herniorrhaphy, peripheral artery angioplasty with stent placement, status post thoracentesis, status post fem-pop bypass, wisdom teeth removed. MEDICATIONS: Melatonin 5 mg p.o. at bedtime p.r.n., dutasteride 0.5 mg p.o. daily, quetiapine 50 mg p.o. at bedtime, omeprazole 20 mg p.o. daily, metoprolol 25 mg p.o. daily, Flonase 1 inhalation to both nostrils q.24 hours, divalproex 250 mg p.o. at bedtime, bupropion 100 mg p.o. daily, docusate sodium 100 mg p.o. daily, albuterol 2 puffs inhaled q.i.d. p.r.n., ibuprofen 600 mg p.o. q.6 hours p.r.n., cholecalciferol 1000 units p.o. daily, vitamin C 500 mg p.o. b.i.d., acetaminophen 500 mg p.o. q.6 hours p.r.n. ALLERGIES: CIPROFLOXACIN, VANCOMYCIN, AND BACTRIM. FAMILY HISTORY: Brother and father both suffered from coronary artery disease. REVIEW OF SYSTEMS: Unreliable as the patient's mental status is not adequate for accurate information. PHYSICAL EXAMINATION: GENERAL: A very pleasant, somewhat labile 66-year-old gentleman in no acute distress. VITAL SIGNS: Temperature 37.1, pulse 76, respiratory rate 20, blood pressure 138/60. SKIN: Warm, dry, noncyanotic without petechia, rash or ecchymosis. HEENT: Head atraumatic, normocephalic. Eyes PERRLA, EOMI. Sclerae are nonicteric. No conjunctival injection. Nares are patent without rhinorrhea or discharge. Throat is clear. Tongue is midline. Mucous membranes are moist. NECK: Supple without JVD or thyromegaly. LYMPHATICS: No cervical, supraclavicular, axillary or inguinal palpable nodes. HEART: Regular rate and rhythm. No clicks, rubs, murmurs or gallops. LUNGS: Clear to auscultation bilaterally. ABDOMEN: Soft, nontender, nondistended, without palpable hepatosplenomegaly. EXTREMITIES: No calf tenderness or swelling. No clubbing, cyanosis or edema. NEUROLOGIC: He is awake and alert, not sure about orientation, he has a flight of ideas and thoughts. RADIOGRAPHIC DATA: Brain MRI: No evidence of intracerebral metastatic disease. CT scan of the chest, abdomen and pelvis: No evidence of pulmonary emboli. Moderate left pleural effusion actually is mildly decreased since his last scan in 07/2020. Dependent consolidation in the left lung base favors atelectasis, otherwise no direct evidence of recurrent neoplasia. LABORATORY DATA: WBC count 3950, hemoglobin 9.2, platelet count 217,000. Coags are normal. Sodium 132, potassium 4.4, chloride 103, carbon dioxide 24, creatinine 0.93, BUN 12. Iron 35, TIBC 275, ferritin 301, albumin 2.1, folate 2.50. IMPRESSION: 1. Status post fall/generalized weakness. 2. Chronic kidney disease. 3. History of stage IIIB non-small cell lung cancer. 4. Decreased folate. 5. Anemia of chronic disease/iron deficiency. 6. Hypoalbuminemia. PLAN: Mr. Luther is a very pleasant, somewhat interesting 66-year-old gentleman who presents to [facility] for issues related to general clinical decline. I have been asked to visit with him because of his history of non-small cell lung cancer and by current radiographic study, there is no evidence that he is battling recurrent disease. That said, it is obvious he has many other medical issues, particularly anemia, which appears to be a combination of many things and thus folate and iron should both be replaced as appropriate. Perhaps once his iron is restored, he could be considered for supplemental erythropoietin. He has been lost to follow up at [facility]. Again, his last documented note was in 05/2019 and had not been seen since. Apparently, this gentleman also had a relationship with Dr. Garo Wells at one time and I suspect due to difficult communication between doctor and patient, Mr. Luther gravitated to [facility]. That said, we would be happy to have him reconvene with us for management of anemia. I think there are psychiatric and perhaps substance use issues to be addressed. I have nothing further to add from an oncologic standpoint, but again would be certainly happy to continue seeing Mr. Luther in followup. Job ID: [id number] MTDD
[2021-03-19] MEDS: DIVALPROEX DELAY RELEASE 500 MG TAB PO SCH (20:50)
[2021-03-19] MEDS: QUEtiapine FUMARATE 25 MG TABLET PO SCH (20:51)
[2021-03-20] MEDS: DUTASTERIDE - ORDER AWAITING ACTION SCH ×3 (00:01→16:49)
[2021-03-20] MEDS: FOLIC ACID 1 MG TAB PO SCH (09:01)
[2021-03-20] MEDS: CHOLECALCIFEROL 1,000 UNITS 25 MCG TAB PO SCH (09:01)
[2021-03-20] MEDS: buPROPion HCl 100 MG TABLET PO SCH (09:01)
[2021-03-20] MEDS: ASCORBIC ACID 500 MG TAB PO SCH ×2 (09:01→20:55)
[2021-03-20] MEDS: PANTOprazole 40 MG TAB PO SCH (09:01)
[2021-03-20] MEDS: DIVALPROEX DELAY RELEASE 250 MG TABEC PO SCH (09:01)
[2021-03-20] MEDS: FLUTICASONE FUROATE 100MCG 14 PUFFS/INHALER INH SCH (09:02)
[2021-03-20] MEDS: UMECLIDINIUM/VILANTEROL 62.5/25MCG 7 PUFFS/INHALER INH SCH (09:02)
--- NOTE | 2021-03-20 17:13 | Hospitalist Progress Note ---
Date of Service March 20, 2021 Assessment & Plan (1) Fall: Plan: Suspect the patient's falls are multifactorial: generalized deconditioning, hypotension Reduce Seroquel given his current fatigue PT/OT evaluations completed and recommending inpatient rehab versus SNF Continue fall precautions (2) Anemia: Plan: Appears to be stable without intervention. No blood was transfused. Hemoglobin 9.2 g/Todd LDH WNL, haptoglobin pending. Iron level 35, TIBC 275, 12.7% saturation B12 479 Folate low - start on supplementation for this (3) Hypotension: Plan: Discontinue metoprolol Vital signs per protocol (4) CKD (chronic kidney disease) stage 2, GFR 60-89 ml/min: Plan: Renal function appears to be at baseline in this patient, continue to monitor (5) Chronic hypoxemic respiratory failure: Plan: Patient is not on supplemental oxygen, continue to monitor (6) COPD (chronic obstructive pulmonary disease) with chronic bronchitis: Plan: Patient with a very history of COPD, still smoking despite lung cancer diagnosis Trelegy (ICS/AC/LABA) as an outpatient We will substitute Anoro Ellipta (AC/LABA) and Arnuity Ellipta (ICS) while inpatient Oxygenating well on room air Supplemental oxygen as needed to maintain SaO2 between 88 and 92% Continue to monitor vital signs per protocol (7) History of lung cancer: Plan: Hematology/oncology consulted -awaiting comment MRI brain w/wo contrast with no evidence of metastatic disease Await guidance from oncology for disposition (8) Recurrent left pleural effusion: Plan: Pulmonology consulted -appreciate Dr. Morin's input Patient was saturating well on room air yesterday Patient was not deemed to be consentable At this time we will continue to monitor clinically (9) Peripheral arterial disease: Plan: Patient should be on antiplatelet/statin, will hold pending Hgb stability but recommend at least Plavix on discharge. History of aortofemoral bypass per prior notes (10) Bilateral carotid artery occlusion: Plan: as above (11) Unstageable pressure ulcer of left heel: Plan: XR ankle to assess for OM, no surrounding cellulitis Skin care per nursing protocol Plan: Unclear as to why he is on a number of medications including depakote, seroquel and wellbutrin VTE Prophylaxis - SCDs Diet - regular Disposition: Patient will need [facility] facility or inpatient rehab. Working with case management. Admission and Anticipated Discharge Date Admission Date: March 20, 2021 Subjective Attending: Dr. Phan Patient seen and examined in his room. He is sitting on edge of bed eating lunch. Some difficulty with stabilized seated position. Occupational Therapy in the room working with him. No evidence of aspiration with ingestion of food. Patient denies fever, chills, sweats. He denies any dysphagia. He is still weak. He denies any further falls. He has no other acute complaints. Review of Systems Review of Systems: All systems reviewed & are unremarkable except as noted in Subjective Physical Exam 2 Physical Exam: GENERAL : No acute distress. Some difficulty with balance sitting unsupported on edge of bed EYES: No icterus, gaze conjugate NOSE: No evidence of epistaxis MOUTH: No lesions or candidiasis NECK: Supple LUNGS: CTA B/L, no wheezes, rales or rhonchi HEART: Regular, rate controlled ABDOMEN: Soft, NT, ND, BS Present EXTREMITIES: No LE edema, pedal pulses intact and equal bilaterally NEURO: A&OX3 Results & Data Results & Data ([facility]) Vital Signs (Past 12 Hours) Vital Signs Temp Pulse Resp BP Pulse Ox 03/20/21 15:59 36.5 C 16 98/57 L 99 03/20/21 07:45 102/64 03/20/21 07:22 36.9 C 78 16 87/58 L 96 Laboratory Results 03/19/21 07:08 03/19/21 07:08 Diagnostic Findings No further imaging PG Care Time/CCT Total # of Minutes Spent Total Time Spent with Patient: Total time spent is greater than 50% in coordination of care (as documented) at patient's floor/unit and/or counseling patient: Coding Level of Care Code 43980 Subseq Hosp Care Lvl 2 Diagnoses Fall W19.XXXA Encounter type: initial encounter Anemia D64.9 Hypotension I95.9 CKD (chronic kidney disease) stage 2, GFR 60-89 ml/min N18.2 Chronic hypoxemic respiratory failure J96.11 COPD (chronic obstructive pulmonary disease) with chronic bronchitis J44.9 History of lung cancer Z85.118 Recurrent left pleural effusion J90 Peripheral arterial disease I73.9 Bilateral carotid artery occlusion I65.23 Unstageable pressure ulcer of left heel L89.620 (1) Fall Encounter type: initial encounter Qualified Code(s): W19.XXXA - Unspecified fall, initial encounter
[2021-03-20] MEDS: ALBUTEROL HFA 8 GM INHALER INH PRN (20:20)
[2021-03-20] MEDS: QUEtiapine FUMARATE 25 MG TABLET PO SCH (20:56)
[2021-03-20] MEDS: DIVALPROEX DELAY RELEASE 500 MG TAB PO SCH (20:56)
[2021-03-21] MEDS: DUTASTERIDE - ORDER AWAITING ACTION SCH ×4 (00:32→23:38)
[2021-03-21 06:39] LABS: Hematocrit (blood only) 24.8 % (42-52); Hemoglobin 8.2 g/dL (14.0-18.0); Mean Corpuscular Hemoglobin 25.1 pg (25-34); Mean Corpuscular Hgb Conc 33.1 g/dL (32-36); Mean Corpuscular Volume 75.8 fL (80-100); Mean Platelet Volume 9.3 fL (7.4-10.4); Platelet Count 219 K/uL (130-400); RDW Coefficient of Variation 19.4 % (11.5-14.5); RDW Standard Deviation 54.2 fL (36.4-46.3); Red Blood Count 3.27 M/uL (4.7-6.1); White Blood Count 4.67 K/uL (4.8-10.8)
[2021-03-21 07:12] LABS: BUN Creatinine Ratio 18.3 (10-20); Calcium 8.5 mg/dl (8.5-10.1); Creatinine Clr Calc Pharmacy 82.6 ml/min; Est GFR (African American) 105.5 ml/min; Potassium 3.9 mmol/L (3.5-5.1)
[2021-03-21] MEDS: UMECLIDINIUM/VILANTEROL 62.5/25MCG 7 PUFFS/INHALER INH SCH (08:32)
[2021-03-21] MEDS: FOLIC ACID 1 MG TAB PO SCH (08:32)
[2021-03-21] MEDS: PANTOprazole 40 MG TAB PO SCH (08:32)
[2021-03-21] MEDS: DIVALPROEX DELAY RELEASE 250 MG TABEC PO SCH (08:32)
[2021-03-21] MEDS: ASCORBIC ACID 500 MG TAB PO SCH ×2 (08:32→20:19)
[2021-03-21] MEDS: CHOLECALCIFEROL 1,000 UNITS 25 MCG TAB PO SCH (08:32)
[2021-03-21] MEDS: buPROPion HCl 100 MG TABLET PO SCH (08:32)
[2021-03-21] MEDS: FLUTICASONE FUROATE 100MCG 14 PUFFS/INHALER INH SCH (08:32)
--- NOTE | 2021-03-21 18:22 | Hospitalist Progress Note ---
Date of Service March 21, 2021 Assessment & Plan (1) Fall: Plan: Suspect the patient's falls are multifactorial: generalized deconditioning, hypotension Reduce Seroquel given his current fatigue PT/OT evaluations completed and recommending inpatient rehab versus SNF Continue to ambulate in room and hallways as tolerated Continue fall precautions (2) Anemia: Plan: Appears to be stable without intervention. No blood was transfused. Hemoglobin 8.2 g/Todd today. We will repeat CBC tomorrow Iron level 35, TIBC 275, 12.7% saturation B12 479 Folate low - start on supplementation for this (3) Hypotension: Plan: Now hemodynamically stable Continue to hold antihypertensives Discontinue metoprolol Vital signs per protocol (4) CKD (chronic kidney disease) stage 2, GFR 60-89 ml/min: Plan: Renal function appears to be at baseline in this patient, continue to monitor (5) Chronic hypoxemic respiratory failure: Plan: Patient is not on supplemental oxygen, continue to monitor (6) COPD (chronic obstructive pulmonary disease) with chronic bronchitis: Plan: Patient with a very history of COPD, still smoking despite lung cancer diagnosis Trelegy (ICS/AC/LABA) as an outpatient We will substitute Anoro Ellipta (AC/LABA) and Arnuity Ellipta (ICS) while inpatient Oxygenating well on room air Supplemental oxygen as needed to maintain SaO2 between 88 and 92% Continue to monitor vital signs per protocol (7) History of lung cancer: Plan: Hematology/oncology consulted -will pickler helper again as an outpatient on 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 Morin's input Patient saturating well on room air Patient was not deemed to be consentable At this time we will continue to monitor clinically (9) Peripheral arterial disease: Plan: Patient should be on antiplatelet/statin, will hold pending Hgb stability but recommend at least Plavix on discharge. History of aortofemoral bypass per prior notes (10) Bilateral carotid artery occlusion: Plan: as above (11) Unstageable pressure ulcer of left heel: Plan: XR ankle to assess for OM, no surrounding cellulitis Skin care per nursing protocol Plan: Unclear as to why he is on a number of medications including depakote, seroquel and wellbutrin VTE Prophylaxis - SCDs Diet - regular Disposition: Patient will need [facility] facility or inpatient rehab. Working with case management. Admission and Anticipated Discharge Date Admission Date: March 20, 2021 Subjective Attending: Dr. Phan Patient seen and examined bedside. Patient noted to have vomit with breakfast foods when examining patient today. mental health aides teacher assist with all meals. She states that while eating he began to cough and then vomited. No evidence of aspiration. Patient denies fever or chills. Denies shortness of breath. No acute complaints. Review of Systems Review of Systems: All systems reviewed & are unremarkable except as noted in Subjective Physical Exam Physical Exam: GENERAL : No acute distress. Some confusion. Easily reoriented EYES: No icterus, gaze conjugate NOSE: No evidence of epistaxis MOUTH: No lesions or candidiasis NECK: Supple LUNGS: CTA B/L, no wheezes, rales or rhonchi HEART: Regular, rate controlled ABDOMEN: Soft, NT, ND, BS Present EXTREMITIES: No LE edema, pedal pulses intact NEURO: A&OX3 Results & Data Results & [facility]) Vital Signs (Past 12 Hours) Vital Signs Temp Pulse Resp BP Pulse Ox 03/21/21 08:00 36.4 C L 89 20 121/67 98 Laboratory Results 03/21/21 05:26 03/21/21 05:26 Diagnostic Findings No further diagnostics PG Care Time/CCT Total # of Minutes Spent Total Time Spent with Patient: Total time spent is greater than 50% in coordination of care (as documented) at patient's floor/unit and/or counseling p atient: 30 minutes Coding Level of Care Code 37051 Subseq Hosp Care Lvl 2 Diagnoses Fall W19.XXXA Encounter type: initial encounter Anemia D64.9 Hypotension I95.9 CKD (chronic kidney disease) stage 2, GFR 60-89 ml/min N18.2 Chronic hypoxemic respiratory failure J96.11 COPD (chronic obstructive pulmonary disease) with chronic bronchitis J44.9 History of lung cancer Z85.118 Recurrent left pleural effusion J90 Peripheral arterial disease I73.9 Bilateral carotid artery occlusion I65.23 Unstageable pressure ulcer of left heel L89.620 Time Spent (min) 30 (1) Fall Encounter type: initial encounter Qualified Code(s): W19.XXXA - Unspecified f all, initial encounter
[2021-03-21] MEDS: DIVALPROEX DELAY RELEASE 500 MG TAB PO SCH (20:19)
[2021-03-21] MEDS: QUEtiapine FUMARATE 25 MG TABLET PO SCH (20:20)
[2021-03-22 06:45] LABS: Hematocrit (blood only) 28.7 % (42-52); Hemoglobin 9.4 g/dL (14.0-18.0); Mean Corpuscular Hemoglobin 25.1 pg (25-34); Mean Corpuscular Hgb Conc 32.8 g/dL (32-36); Mean Corpuscular Volume 76.7 fL (80-100); Mean Platelet Volume 9.4 fL (7.4-10.4); Platelet Count 218 K/uL (130-400); RDW Coefficient of Variation 19.7 % (11.5-14.5); RDW Standard Deviation 54.9 fL (36.4-46.3); Red Blood Count 3.74 M/uL (4.7-6.1); White Blood Count 4.49 K/uL (4.8-10.8)
[2021-03-22 07:20] LABS: BUN Creatinine Ratio 18.3 (10-20); Calcium 8.6 mg/dl (8.5-10.1); Creatinine Clr Calc Pharmacy 91.4 ml/min; Est GFR (Non-African American) 94.9 ml/min; Potassium 3.9 mmol/L (3.5-5.1)
[2021-03-22] MEDS: ASCORBIC ACID 500 MG TAB PO SCH ×2 (08:26→20:15)
[2021-03-22] MEDS: CHOLECALCIFEROL 1,000 UNITS 25 MCG TAB PO SCH (08:26)
[2021-03-22] MEDS: DUTASTERIDE - ORDER AWAITING ACTION SCH ×3 (08:26→22:58)
[2021-03-22] MEDS: PANTOprazole 40 MG TAB PO SCH (08:26)
[2021-03-22] MEDS: DIVALPROEX DELAY RELEASE 250 MG TABEC PO SCH (08:27)
[2021-03-22] MEDS: buPROPion HCl 100 MG TABLET PO SCH (08:27)
[2021-03-22] MEDS: UMECLIDINIUM/VILANTEROL 62.5/25MCG 7 PUFFS/INHALER INH SCH (08:27)
[2021-03-22] MEDS: FLUTICASONE FUROATE 100MCG 14 PUFFS/INHALER INH SCH (08:27)
[2021-03-22] MEDS: FOLIC ACID 1 MG TAB PO SCH (08:27)
--- NOTE | 2021-03-22 10:15 | XRay Report ---
XR chest 1V portable CLINICAL HISTORY: Possible aspiration. History of lung cancer. COMPARISON STUDY: Chest radiograph and chest CT March 17, 2021. FINDINGS: There is no pneumothorax. A moderate left pleural effusion is similar to prior exam. Asymme tric left lung opacity and right perihilar opacity is unchanged. Cardiomediastinal silhouette is stab le. There may be right basilar opacity. IMPRESSION: 1. Possible right basilar opacity. 2. Otherwise, no change in appearance of the chest with a moderate left pleural effusion and right pe rihilar opacity which is chronic. ACT 112: Negative or not required by law. Electronically signed by: Delio Head M.D. 03/22/2021 10:14 AM
[2021-03-22] MEDS: ALBUTEROL HFA 8 GM INHALER INH PRN (17:50)
--- NOTE | 2021-03-22 19:07 | Hospitalist Progress Note ---
Date of Service March 22, 2021 Assessment & Plan (1) Fall: Plan: Suspect the patient's falls are multifactorial: generalized deconditioning, hypotension Reduce Seroquel given his current fatigue PT/OT evaluations completed and recommending inpatient rehab versus SNF Most recent physical therapy evaluation was 03/18/2021. Continue to ambulate in room and hallways as tolerated Continue fall precautions (2) Anemia: Plan: Appears to be stable without intervention. No blood was transfused. Hemoglobin 9.4 g/Todd 03/22/2021 Iron level 35, TIBC 275, 12.7% saturation B12 479 Folate low - start on supplementation for this (3) Hypotension: Plan: Now hemodynamically stable Continue to hold antihypertensives Discontinue metoprolol Vital signs per protocol (4) CKD (chronic kidney disease) stage 2, GFR 60-89 ml/min: Plan: Renal function appears to be at baseline in this patient, continue to monitor (5) Chronic hypoxemic respiratory failure: Plan: Patient is not on supplemental oxygen, continue to monitor Oxygenating well at 92% on room air Repeat chest x-ray with question of opacity in the right lower lobe Check a procalcitonin with a.m. 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 Morin's input Patient saturating well on room air Patient was not deemed to be consentable and no family members available Repeat chest x-ray with stable moderate left pleural effusion At this time we will continue to monitor clinically (9) Peripheral arterial disease: Plan: Patient should be on antiplatelet/statin, will hold pending Hgb stability but recommend at least Plavix on discharge. History of aortofemoral bypass per prior notes (10) Bilateral carotid artery occlusion: Plan: as above (11) Unstageable pressure ulcer of left heel: Plan: XR ankle to assess for OM, no surrounding cellulitis Skin care per nursing protocol Plan: Unclear as to why he is on a number of medications including depakote, seroquel and wellbutrin VTE Prophylaxis - SCDs Diet - regular Disposition: Patient will need [facility] facility or inpatient rehab. Working with case management. Admission and Anticipated Discharge Date Admission Date: March 20, 2021 Subjective Attending: Dr. Phan Patient seen and examined at bedside. He continues to dwindle. Very difficult to motivate him to even sit up or cooperate with examination. He seems pleasant and in no distress. He denies any shortness of breath. He has no chest pain or tightness. He denies any fever or chills. He has no acute complaints. Review of Systems Review of Systems: All systems reviewed & are unremarkable except as noted in Subjective Physical Exam Physical Exam: GENERAL : No acute distress EYES: No icterus, gaze conjugate NOSE: No evidence of epistaxis MOUTH: No lesions or candidiasis NECK: Supple LUNGS: Fine crackles at bilateral bases. Some decrease in breath sounds at the left base. HEART: Regular, rate controlled ABDOMEN: Soft, NT, ND, BS Present EXTREMITIES: No LE edema, pedal pulses intact and equal bilaterally. NEURO: A&OX3. Pleasant. Cooperative. Results & Data Results & Data ([facility]) Vital Signs (Past 12 Hours) Vital Signs Temp Pulse Resp BP Pulse Ox 03/22/21 17:50 75 18 92 03/22/21 15:00 36.7 C 82 18 102/68 96 03/22/21 07:20 36.9 C 64 18 96/64 L 91 Laboratory Results 03/22/21 06:26 03/22/21 06:26 Diagnostic Findings Chest X-Ray 03/22/21 08:59 XR chest 1V portable CLINICAL HISTORY: Possible aspiration. History of lung cancer. COMPARISON STUDY: Chest radiograph and chest CT March 17, 2021. FINDINGS: There is no pneumothorax. A moderate left pleural effusion is similar to prior exam. Asymmetric left lung opacity and right perihilar opacity is unchanged. Cardiomediastinal silhouette is stable. There may be right basilar opacity. IMPRESSION: 1. Possible right basilar opacity. 2. Otherwise, no change in appearance of the chest with a moderate left pleural effusion and right perihilar opacity which is chronic. ACT 112: Negative or not required by law. Electronically signed by: Delio Head M.D. 03/22/2021 10:14 AM PG Care Time/CCT Total # of Minutes Spent Total Time Spent with Patient: Total time spent is greater than 50% in coordination of care (as documented) at patient's floor/unit and/or counseling patient:25 minutes Coding Level of Care Code 48396 Subseq Hosp Care Lvl 2 Diagnoses Fall W19.XXXA Encounter type: initial encounter Anemia D64.9 Hypotension I95.9 CKD (chronic kidney disease) stage 2, GFR 60-89 ml/min N18.2 Chronic hypoxemic respiratory failure J96.11 COPD (chronic obstructive pulmonary disease) with chronic bronchitis J44.9 History of lung cancer Z85.118 Recurrent left pleural effusion J90 Peripheral arterial disease I73.9 Bilateral carotid artery occlusion I65.23 Unstageable pressure ulcer of left heel L89.620 Time Spent (min) 25 (1) Fall Encounter type: initial encounter Qualified Code(s): W19.XXXA - Unspecified fall, initial encounter
[2021-03-22] MEDS: QUEtiapine FUMARATE 25 MG TABLET PO SCH (20:15)
[2021-03-22] MEDS: DIVALPROEX DELAY RELEASE 500 MG TAB PO SCH (20:15)
[2021-03-23 08:18] LABS: Hematocrit (blood only) 30.5 % (42-52); Hemoglobin 10.1 g/dL (14.0-18.0); Mean Corpuscular Hemoglobin 25.8 pg (25-34); Mean Corpuscular Hgb Conc 33.1 g/dL (32-36); Mean Platelet Volume 9.3 fL (7.4-10.4); Platelet Count 240 K/uL (130-400); RDW Standard Deviation 56.8 fL (36.4-46.3); Red Blood Count 3.91 M/uL (4.7-6.1); White Blood Count 4.19 K/uL (4.8-10.8)
[2021-03-23] MEDS: CHOLECALCIFEROL 1,000 UNITS 25 MCG TAB PO SCH (08:26)
[2021-03-23] MEDS: FOLIC ACID 1 MG TAB PO SCH (08:26)
[2021-03-23] MEDS: UMECLIDINIUM/VILANTEROL 62.5/25MCG 7 PUFFS/INHALER INH SCH (08:26)
[2021-03-23] MEDS: buPROPion HCl 100 MG TABLET PO SCH (08:26)
[2021-03-23] MEDS: DIVALPROEX DELAY RELEASE 250 MG TABEC PO SCH (08:26)
[2021-03-23] MEDS: PANTOprazole 40 MG TAB PO SCH (08:26)
[2021-03-23] MEDS: FLUTICASONE FUROATE 100MCG 14 PUFFS/INHALER INH SCH (08:26)
[2021-03-23] MEDS: DUTASTERIDE - ORDER AWAITING ACTION SCH ×3 (08:27→22:08)
[2021-03-23] MEDS: ASCORBIC ACID 500 MG TAB PO SCH ×2 (08:27→20:20)
[2021-03-23 08:44] LABS: BUN Creatinine Ratio 19.8 (10-20); Creatinine Clr Calc Pharmacy 91.4 ml/min; Est GFR (Non-African American) 94.9 ml/min
--- NOTE | 2021-03-23 19:31 | Hospitalist Progress Note ---
Date of Service March 23, 2021 Assessment & Plan (1) Fall: Plan: Suspect the patient's falls are multifactorial: generalized deconditioning, orthostatic hypotension Reduced Seroquel from 50mg to 25mg given orthostasis PT/OT evaluations completed and recommending inpatient rehab versus SNF Most recent physical therapy evaluation was 03/18/2021. He has frequent falls at home and uses a wheelchair but does stand and pivot to get in BP dropped to 70s systolic with PT eval on 03/18 and was symptomatic Hgb was down to 7.3 but now came up to 10.1 with no intervention-unclear if lab error or hemodilution? Needs rehab placement (2) Anemia: Plan: Appears to be stable without intervention. No blood was transfused. Microcytic, Fe deficiency Iron level 35, TIBC 275, 12.7% saturation B12 479 Folate low at 2.5 - start on supplementation for this -hgb somehow was 7.3 and now up to 10 without intervention/no transfusion- perhaps hemodilution Start Fe supplementation as well Last colonoscopy 13 years ago he thinks. No obvious bleeding from anywhere as per history -should f/u with GI as outpt for EGD/colonoscopy (3) Hypotension: Plan: Now hemodynamically stable but does drop with sitting up or standing Discontinued metoprolol (4) CKD (chronic kidney disease) stage 2, GFR 60-89 ml/min: Plan: Renal function appears to be at baseline in this patient, continue to monitor (5) Chronic hypoxemic respiratory failure: Plan: Patient is not on supplemental oxygen, continue to monitor Oxygenating well at 92% on room air Repeat chest x-ray with question of opacity in the right lower lobe Previous procalcitonin on 03/17/2021 was negative No other signs or symptoms of PNA, no abx needed probably related to lung CA dx--> f/u with Oncology (6) COPD (chronic obstructive pulmonary disease) with chronic bronchitis: Plan: Patient with a very history of COPD, still smoking despite lung cancer diagnosis Trelegy (ICS/AC/LABA) as an outpatient We will substitute Anoro Ellipta (AC/LABA) and Arnuity Ellipta (ICS) while inpatient Oxygenating well on room air Supplemental oxygen as needed to maintain SaO2 between 88 and 92% Continue to monitor vital signs per protocol (7) History of lung cancer: Plan: Hematology/oncology consulted -will picker and sorter load and unload again as an outpatient on 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 Morin's input Patient saturating well on room air Patient was not deemed to be consentable and no family members available Repeat chest x-ray with stable moderate left pleural effusion At this time we will continue to monitor clinically (9) Peripheral arterial disease: Plan: Patient should be on antiplatelet/statin, will hold pending Hgb stability but recommend at least Plavix on discharge. History of aortofemoral bypass per prior notes (10) Bilateral carotid artery occlusion: Plan: as above (11) Unstageable pressure ulcer of left heel: Plan: XR ankle to assess for OM, no surrounding cellulitis Skin care per nursing protocol (12) Bipolar disorder: Plan: stable depakote, seroquel and wellbutrin Plan: VTE Prophylaxis - SCDs Diet - regular Disposition: Patient will need senior care facility or inpatient rehab. Working with case management. Medically stable for discharge Admission and Anticipated Discharge Date Admission Date: March 20, 2021 Subjective Pt seems confused. Is hiding with his head under the covers when I walked in the room. He ate about half his meal and said he doesn't eat much anyway. Denies pain anywhere, no CP or SOB. No abd pain. When I bring up the idea of rehab, he says he's not sure about that, but then says he's "[place] away from [place]...I mean...I live in [place]." He then says he is ok with going to rehab after I explain the purpose. Review of Systems Review of Systems: All systems reviewed & are unremarkable except as noted in HPI & below Physical Exam Constitutional: WD/WN, vitals as above ENMT: external ear and nose normal, oropharynx normal Neck: trachea midline, no thyromegaly Respiratory: normal respiratory effort, lungs clear to auscultation Cardiovascular: RRR, no murmur, no edema Chest (Breasts): Chest: normal inspection of chest Gastrointestinal (Abdomen): normal bowel sounds, soft, nontender, no hepatosplenomegaly Musculoskeletal: Extremities: extremities normal to inspection; no cyanosis and no clubbing Skin: no rashes, warm and dry Neurologic: moves all extremities and awake; no focal motor deficits Psychiatric: Orientation: alert, oriented to person and cooperative Lymphatic: no lymphedema Results & Data Results & Data ([facility]) Vital Signs (Past 12 Hours) Vital Signs Temp Pulse Resp BP Pulse Ox 03/23/21 16:00 36.7 C 77 18 104/70 93 Laboratory Results 03/23/21 03/23/21 Range/Units 07:32 07:32 WBC 4.19 L (4.8-10.8) K/uL RBC 3.91 L (4.7-6.1) M/uL Hgb 10.1 L (14.0-18.0) g/dL Hct 30.5 L (42-52) % MCV 78.0 L (80-100) fL MCH 25.8 (25-34) pg MCHC 33.1 (32-36) g/dL RDW Std Deviation 56.8 H (36.4-46.3) fL RDW Coeff of Raul 20.0 H (11.5-14.5) % Plt Count 240 (130-400) K/uL MPV 9.3 (7.4-10.4) fL Sodium 134 L (136-145) mmol/L Potassium 4.0 (3.5-5.1) mmol/L Chloride 103 (98-107) mmol/L Carbon Dioxide 25 (21-32) mmol/L Anion Gap 7.0 (3-11) BUN 15 (7-18) mg/dl Creatinine 0.75 (0.6-1.4) mg/dl Est Cr Clr Drug Dosing 91.4 ml/min Est GFR ( Amer) 110.0 ml/min Est GFR (Non-Af Amer) 94.9 ml/min BUN/Creatinine Ratio 19.8 (10-20) Glucose 82 (70-99) mg/dl Calcium 9.0 (8.5-10.1) mg/dl PG Care Time/CCT Total # of Minutes Spent Total Time Spent with Patient: Total time spent is greater than 50% in coordination of care (as documented) at patient's floor/unit and/or counseling patient: Coding Level of Care Code 70749 Subseq Hosp Care Lvl 2 Diagnoses Fall W19.XXXA Encounter type: initial encounter Anemia D64.9 Hypotension I95.9 CKD (chronic kidney disease) stage 2, GFR 60-89 ml/min N18.2 Chronic hypoxemic respiratory failure J96.11 COPD (chronic obstructive pulmonary disease) with chronic bronchitis J44.9 History of lung cancer Z85.118 Recurrent left pleural effusion J90 Peripheral arterial disease I73.9 Bilateral carotid artery occlusion I65.23 Unstageable pressure ulcer of left heel L89.620 Bipolar disorder F31.9 Most recent bipolar episode type: most recent episode unspecified type (1) Fall Encounter type: initial encounter Qualified Code(s): W19.XXXA - Unspecified fall, initial encounter (2) Bipolar disorder Most recent bipolar episode type: most recent episode unspecified type
[2021-03-23] MEDS: DIVALPROEX DELAY RELEASE 500 MG TAB PO SCH (20:20)
[2021-03-23] MEDS: QUEtiapine FUMARATE 25 MG TABLET PO SCH (20:20)
[2021-03-24] MEDS: FOLIC ACID 1 MG TAB PO SCH (08:19)
[2021-03-24] MEDS: CHOLECALCIFEROL 1,000 UNITS 25 MCG TAB PO SCH (08:19)
[2021-03-24] MEDS: FERROUS SULFATE 325 MG TAB PO SCH ×2 (08:19→16:56)
[2021-03-24] MEDS: DUTASTERIDE - ORDER AWAITING ACTION SCH ×3 (08:19→20:32)
[2021-03-24] MEDS: DIVALPROEX DELAY RELEASE 250 MG TABEC PO SCH (08:19)
[2021-03-24] MEDS: buPROPion HCl 100 MG TABLET PO SCH (08:19)
[2021-03-24] MEDS: ASCORBIC ACID 500 MG TAB PO SCH ×2 (08:19→20:24)
[2021-03-24] MEDS: UMECLIDINIUM/VILANTEROL 62.5/25MCG 7 PUFFS/INHALER INH SCH (08:20)
[2021-03-24] MEDS: FLUTICASONE FUROATE 100MCG 14 PUFFS/INHALER INH SCH (08:20)
[2021-03-24] MEDS: PANTOprazole 40 MG TAB PO SCH (08:20)
--- NOTE | 2021-03-24 16:58 | Hospitalist Progress Note ---
Date of Service March 24, 2021 Assessment & Plan (1) Fall: Plan: Suspect the patient's falls are multifactorial: generalized deconditioning, profound orthostatic hypotension Reduced Seroquel from 50mg to 25mg given orthostasis--> may need to further reduce to 12.5mg PT/OT evaluations completed and recommending inpatient rehab versus SNF He has frequent falls at home and uses a wheelchair but does stand and pivot to get in BP dropped to 70s systolic with PT eval on 03/18 and was symptomatic. Dropped to the 50s systolic on 03/24 with lightheadedness Hgb was down to 7.3 but now came up to 10.1 with no intervention-unclear if lab error or hemodilution? Needs rehab placement (2) Anemia: Plan: Appears to be stable without intervention. No blood was transfused. Microcytic, Fe deficiency Iron level 35, TIBC 275, 12.7% saturation B12 479 Folate low at 2.5 - start on supplementation for this -hgb somehow was 7.3 and now up to 10 without intervention/no transfusion- perhaps hemodilution Start Fe supplementation as well Last colonoscopy 13 years ago he thinks. No obvious bleeding from anywhere as per history -should f/u with GI as outpt for EGD/colonoscopy (3) Hypotension: Plan: Now hemodynamically stable but does drop with sitting up or standing Discontinued metoprolol -add midodrine 2.5mg po tid for severe orthostasis (4) CKD (chronic kidney disease) stage 2, GFR 60-89 ml/min: Plan: Renal function appears to be at baseline in this patient, continue to monitor (5) Chronic hypoxemic respiratory failure: Plan: Patient is not on supplemental oxygen, continue to monitor Oxygenating well at 92% on room air Repeat chest x-ray with question of opacity in the right lower lobe Previous procalcitonin on 03/17/2021 was negative No other signs or symptoms of PNA, no abx needed probably related to lung CA dx--> f/u with Oncology (6) COPD (chronic obstructive pulmonary disease) with chronic bronchitis: Plan: Patient with a very history of COPD, still smoking despite lung cancer diagnosis Trelegy (ICS/AC/LABA) as an outpatient We will substitute Anoro Ellipta (AC/LABA) and Arnuity Ellipta (ICS) while inp atient Oxygenating well on room air Supplemental oxygen as needed to maintain SaO2 between 88 and 92% Continue to monitor vital signs per protocol (7) History of lung cancer: Plan: Hematology/oncology consulted -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 Morin's input Patient saturating well on room air Patient was not deemed to be consentable and no family members available Repeat chest x-ray with stable moderate left pleural effusion At this time we will continue to monitor clinically (9) Peripheral arterial disease: Plan: Patient should be on antiplatelet/statin, recommend starting Plavix and statin History of aortofemoral bypass per prior notes (10) Bilateral carotid artery occlusion: Plan: as above (11) Unstageable pressure ulcer of left heel: Plan: XR ankle to assess for OM, no surrounding cellulitis Skin care per nursing protocol (12) Bipolar disorder: Plan: stable depakote, seroquel and wellbutrin Plan: VTE Prophylaxis - SCDs Diet - regular Disposition: Patient will need prison facility or inpatient rehab. Working with case management. still looking for rehab placement Admission and Anticipated Discharge Date Admission Date: March 20, 2021 Subjective Pt pulls the covers up over his head as soon as I walked in but talks to me through the covers. He denies pain. I told him the rehab couldn't take him today and he asked if he could just go home. He continues to be severely orthostatic Review of Systems Review of Systems: All systems reviewed & are unremarkable except as noted in HPI & below Physical Exam Constitutional: WD/WN, vitals as above Neck: trachea midline, no thyromegaly Respiratory: normal respiratory effort Auscultation: + crackles (bases); no wheezes Cardiovascular: RRR, no murmur, no edema Chest (Breasts): Chest: normal inspection of chest Gastrointestinal (Abdomen): normal bowel sounds, soft, nontender, no hepatosplenomegaly Musculoskeletal: Extremities: extremities normal to inspection; no cyanosis and no clubbing Skin: no rashes, warm and dry Neurologic: moves all extremities and awake; no focal motor deficits Psychiatric: Orientation: alert, oriented to person and cooperative Lymphatic: no lymphedema Results & Data Results & Data ([facility]) Vital Signs (Past 12 Hours) Vital Signs Temp Pulse Resp BP Pulse Ox 03/24/21 14:56 36.2 C L 85 19 128/80 99 03/24/21 07:44 36.6 C 59 L 18 123/71 97 PG Care Time/CCT Total # of Minutes Spent Total Time Spent with Patient: Total time spent is greater than 50% in coordination of care (as documented) at patient's floor/unit and/or counseling patient: Coding Level of Care Code 31913 Subseq Hosp Care Lvl 2 Diagnoses Fall W19.XXXA Encounter type: initial encounter Anemia D64.9 Hypotension I95.9 CKD (chronic kidney disease) stage 2, GFR 60-89 ml/min N18.2 Chronic hypoxemic respiratory failure J96.11 COPD (chronic obstructive pulmonary disease) with chronic bronchitis J44.9 History of lung cancer Z85.118 Recurrent left pleural effusion J90 Peripheral arterial disease I73.9 Bilateral carotid artery occlusion I65.23 Unstageable pressure ulcer of left heel L89.620 Bipolar disorder F31.9 Most recent bipolar episode type: most recent episode unspecified type (1) Fall Encounter type: initial encounter Qualified Code(s): W19.XXXA - Unspecified fall, initial encounter (2) Bipolar disorder Most recent bipolar episode type: most recent episode unspecified type
[2021-03-24] MEDS: MIDODRINE HCL 2.5 MG TAB PO SCH (17:50)
[2021-03-24] MEDS: DIVALPROEX DELAY RELEASE 500 MG TAB PO SCH (20:24)
[2021-03-24] MEDS: QUEtiapine FUMARATE 25 MG TABLET PO SCH (20:25)
[2021-03-25] MEDS: FERROUS SULFATE 325 MG TAB PO SCH ×2 (08:06→16:24)
[2021-03-25] MEDS: ASCORBIC ACID 500 MG TAB PO SCH ×2 (08:07→19:23)
[2021-03-25] MEDS: DUTASTERIDE - ORDER AWAITING ACTION SCH ×2 (08:07→15:10)
[2021-03-25] MEDS: ATORVASTATIN 40 MG TAB PO SCH (08:07)
[2021-03-25] MEDS: MIDODRINE HCL 2.5 MG TAB PO SCH ×3 (08:07→16:24)
[2021-03-25] MEDS: DIVALPROEX DELAY RELEASE 250 MG TABEC PO SCH (08:08)
[2021-03-25] MEDS: CLOPIDOGREL BISULFATE 75 MG TAB PO SCH (08:08)
[2021-03-25] MEDS: UMECLIDINIUM/VILANTEROL 62.5/25MCG 7 PUFFS/INHALER INH SCH (08:08)
[2021-03-25] MEDS: buPROPion HCl 100 MG TABLET PO SCH (08:08)
[2021-03-25] MEDS: CHOLECALCIFEROL 1,000 UNITS 25 MCG TAB PO SCH (08:08)
[2021-03-25] MEDS: FOLIC ACID 1 MG TAB PO SCH (08:08)
[2021-03-25] MEDS: FLUTICASONE FUROATE 100MCG 14 PUFFS/INHALER INH SCH (08:08)
[2021-03-25] MEDS: PANTOprazole 40 MG TAB PO SCH (08:08)
--- NOTE | 2021-03-25 19:15 | Hospitalist Progress Note ---
Date of Service March 25, 2021 Assessment & Plan (1) Fall: Plan: Suspect the patient's falls are multifactorial: generalized deconditioning, profound orthostatic hypotension Reduced Seroquel from 50mg to 12.5mg given orthostasis and added midodrine---> now improving--> still orthostatic but systolic only dropped into the 80s as opposed to the 50-70s PT/OT evaluations completed and recommending inpatient rehab versus SNF He has frequent falls at home and uses a wheelchair but does stand and pivot to get in BP dropped to 70s systolic with PT eval on 03/18 and was symptomatic. Dropped to the 50s systolic on 03/24 with lightheadedness Hgb was down to 7.3 but now came up to 10.1 with no intervention-unclear if lab error or hemodilution? Needs rehab placement (2) Anemia: Plan: Appears to be stable without intervention. No blood was transfused. Microcytic, Fe deficiency Iron level 35, TIBC 275, 12.7% saturation B12 479 Folate low at 2.5 - start on supplementation for this -hgb somehow was 7.3 and now up to 10 without intervention/no transfusion- perhaps hemodilution Start Fe supplementation as well Last colonoscopy 13 years ago he thinks. No obvious bleeding from anywhere as per history -should f/u with GI as outpt for EGD/colonoscopy (3) Hypotension: Plan: Now hemodynamically stable but does drop with sitting up or standing Discontinued metoprolol -added midodrine 2.5mg po tid for severe orthostasis and lowered Seroquel dose as above (4) CKD (chronic kidney disease) stage 2, GFR 60-89 ml/min: Plan: Renal function appears to be at baseline in this patient, continue to monitor periodically (5) Chronic hypoxemic respiratory failure: Plan: Patient is not on supplemental oxygen, continue to monitor Oxygenating well at 92% on room air Repeat chest x-ray with question of opacity in the right lower lobe Previous procalcitonin on 03/17/2021 was negative No other signs or symptoms of PNA, no abx needed probably related to lung CA dx--> f/u with Oncology (6) COPD (chronic obstructive pulmonary disease) with chronic bronchitis: Plan: Patient with a very history of COPD, still smoking despite lung cancer diagnosis Trelegy (ICS/AC/LABA) as an outpatient We will substitute Anoro Ellipta (AC/LABA) and Arnuity Ellipta (ICS) while inpatient Oxygenating well on room air Supplemental oxygen as needed to maintain SaO2 between 88 and 92% Continue to monitor vital signs per protocol (7) History of lung cancer: Plan: Hematology/oncology consulted -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 Morin's input Patient saturating well on room air Patient was not deemed to be consentable and no family members available Repeat chest x-ray with stable moderate left pleural effusion At this time we will continue to monitor clinically f/u as outpt with PULM (9) Peripheral arterial disease: Plan: Patient should be on antiplatelet/statin, recommend starting Plavix and statin History of aortofemoral bypass per prior notes (10) Bilateral carotid artery occlusion: Plan: as above (11) Unstageable pressure ulcer of left heel: Plan: XR ankle to assess for OM, no surrounding cellulitis Skin care per nursing protocol (12) Bipolar disorder: Plan: stable depakote, seroquel and wellbutrin Plan: VTE Prophylaxis - SCDs Diet - regular Disposition: Patient will need [facility] facility or inpatient rehab. Working with case management. still looking for rehab placement Admission and Anticipated Discharge Date Admission Date: March 20, 2021 Subjective Pt very talkative today and not hiding under covers. Jokes with me that I was "staring at your future" when I was checking a text message on my cell phone in the hallway before I came into his room. He reports always feeling lightheaded, but orthostatics didn't drop as low today. Is eating his dinner Review of Systems Review of Systems: All systems reviewed & are unremarkable except as noted in HPI & below Physical Exam Constitutional: WD/WN, vitals as above Neck: trachea midline, no thyromegaly Respiratory: normal respiratory effort, lungs clear to auscultation Cardiovascular: RRR, no murmur, no edema Chest (Breasts): Chest: normal inspection of chest Gastrointestinal (Abdomen): normal bowel sounds, soft, nontender, no hepatosplenomegaly Musculoskeletal: Extremities: extremities normal to inspection; no cyanosis and no clubbing Skin: no rashes, warm and dry Neurologic: moves all extremities and awake; no focal motor deficits Psychiatric: Orientation: alert, oriented to person and cooperative Lymphatic: no lymphedema Results & Data Results & Data ([facility]) Vital Signs (Past 12 Hours) Vital Signs Temp Pulse Resp BP Pulse Ox 03/25/21 15:13 36.4 C L 83 18 95/64 L 97 03/25/21 07:45 37.0 C 88 18 133/79 99 PG Care Time/CCT Total # of Minutes Spent Total Time Spent with Patient: Total time spent is greater than 50% in coordinat ion of care (as documented) at patient's floor/unit and/or counseling patient: Coding Level of Care Code 37258 Subseq Hosp Care Lvl 1 Diagnoses Fall W19.XXXA Encounter type: initial encounter Anemia D64.9 Hypotension I95.9 CKD (chronic kidney disease) stage 2, GFR 60-89 ml/min N18.2 Chronic hypoxemic respiratory failure J96.11 COPD (chronic obstructive pulmonary disease) with chronic bronchitis J44.9 History of lung cancer Z85.118 Recurrent left pleural effusion J90 Peripheral arterial disease I73.9 Bilateral carotid artery occlusion I65.23 Unstageable pressure ulcer of left heel L89.620 Bipolar disorder F31.9 Most recent bipolar episode type: most recent episode unspecified type (1) Fall Encounter type: initial encounter Qualified Code(s): W19.XXXA - Unspecified fall, initial encounter (2) Bipolar disorder Most recent bipolar episode type: most recent episode unspecified type
[2021-03-25] MEDS: QUEtiapine FUMARATE 25 MG TABLET PO SCH (19:23)
[2021-03-25] MEDS: DIVALPROEX DELAY RELEASE 500 MG TAB PO SCH (19:23)
[2021-03-26] MEDS: DUTASTERIDE - ORDER AWAITING ACTION SCH ×2 (00:14→08:14)
[2021-03-26] MEDS: FERROUS SULFATE 325 MG TAB PO SCH ×2 (08:14→16:49)
[2021-03-26] MEDS: MIDODRINE HCL 2.5 MG TAB PO SCH ×3 (08:14→16:49)
[2021-03-26] MEDS: PANTOprazole 40 MG TAB PO SCH (08:15)
[2021-03-26] MEDS: CHOLECALCIFEROL 1,000 UNITS 25 MCG TAB PO SCH (08:15)
[2021-03-26] MEDS: ATORVASTATIN 40 MG TAB PO SCH (08:16)
[2021-03-26] MEDS: buPROPion HCl 100 MG TABLET PO SCH (08:16)
[2021-03-26] MEDS: DIVALPROEX DELAY RELEASE 250 MG TABEC PO SCH ×2 (08:17→20:06)
[2021-03-26] MEDS: FOLIC ACID 1 MG TAB PO SCH (08:17)
[2021-03-26] MEDS: CLOPIDOGREL BISULFATE 75 MG TAB PO SCH (08:17)
[2021-03-26] MEDS: ASCORBIC ACID 500 MG TAB PO SCH ×2 (08:18→20:06)
[2021-03-26] MEDS: FLUTICASONE FUROATE 100MCG 14 PUFFS/INHALER INH SCH (08:18)
[2021-03-26] MEDS: UMECLIDINIUM/VILANTEROL 62.5/25MCG 7 PUFFS/INHALER INH SCH (08:18)
[2021-03-26 08:20] LABS: Basophils # (auto) 0.01 K/uL (0-0.2); Basophils % (auto) 0.1 %; Eosinophils # (auto) 0.29 K/uL (0-0.5); Eosinophils % (auto) 4.3 %; Hematocrit (blood only) 30.6 % (42-52); Hemoglobin 10.3 g/dL (14.0-18.0); Immature Granulocytes # (auto) 0.02 K/uL (0.00-0.02); Immature Granulocytes % (auto) 0.3 %; Lymphocytes # (auto) 0.72 K/uL (1.2-3.4); Lymphocytes % (auto) 10.8 %; Mean Corpuscular Hemoglobin 25.6 pg (25-34); Mean Corpuscular Hgb Conc 33.7 g/dL (32-36); Mean Corpuscular Volume 76.1 fL (80-100); Monocytes % (auto) 10.5 %; Neutrophils # (auto) 4.93 K/uL (1.4-6.5); Platelet Count 251 K/uL (130-400); RDW Coefficient of Variation 20.4 % (11.5-14.5); RDW Standard Deviation 56.9 fL (36.4-46.3); Red Blood Count 4.02 M/uL (4.7-6.1); White Blood Count 6.67 K/uL (4.8-10.8)
[2021-03-26 08:41] LABS: Anisocytosis Present; Echinocytes 1+; Hypochromasia Present; Poikilocytosis Present
[2021-03-26 08:46] LABS: BUN Creatinine Ratio 20.5 (10-20); Creatinine Clr Calc Pharmacy 86.6 ml/min; Est GFR (African American) 111.9 ml/min; Est GFR (Non-African American) 96.5 ml/min; Potassium 4.1 mmol/L (3.5-5.1)
[2021-03-26] MEDS: FINASTERIDE 5 MG TAB PO SCH (12:51)
[2021-03-26] MEDS: QUEtiapine FUMARATE 25 MG TABLET PO SCH (20:07)
--- NOTE | 2021-03-26 22:26 | Hospitalist Progress Note ---
Date of Service March 26, 2021 Assessment & Plan (1) Fall: Plan: Suspect the patient's falls are multifactorial: generalized deconditioning, profound orthostatic hypotension Reduced Seroquel from 50mg to 12.5mg given orthostasis and added midodrine---> now significantly improved and orthostatics were negative today Pt is much more conversive, alert and awake PT/OT evaluations completed and recommending inpatient rehab versus SNF He has frequent falls at home and uses a wheelchair but does stand and pivot to get in BP dropped to 70s systolic with PT eval on 03/18 and was symptomatic. Dropped to the 50s systolic on 03/24 with lightheadedness Hgb was down to 7.3 but now came up to 10.1 with no intervention-unclear if lab error or hemodilution? (2) Anemia: Plan: Appears to be stable without intervention. No blood was transfused. Microcytic, Fe deficiency Iron level 35, TIBC 275, 12.7% saturation B12 479 Folate low at 2.5 - start on supplementation for this -hgb somehow was 7.3 and now up to 10 without intervention/no transfusion- perhaps hemodilution Start Fe supplementation as well Last colonoscopy 13 years ago he thinks. No obvious bleeding from anywhere as per history -should f/u with GI as outpt for EGD/colonoscopy (3) Hypotension: Plan: with profound orthostasis now resolved as above Discontinued metoprolol -added midodrine 2.5mg po tid for severe orthostasis and lowered Seroquel dose as above (4) CKD (chronic kidney disease) stage 2, GFR 60-89 ml/min: Plan: Renal function appears to be at baseline in this patient, continue to monitor periodically (5) Chronic hypoxemic respiratory failure: Plan: Patient is not on supplemental oxygen, continue to monitor Oxygenating well at 92% on room air Repeat chest x-ray with question of opacity in the right lower lobe Previous procalcitonin on 03/17/2021 was negative No other signs or symptoms of PNA, no abx needed probably related to lung CA dx--> f/u with Oncology (6) COPD (chronic obstructive pulmonary disease) with chronic bronchitis: Plan: Patient with a very history of COPD, still smoking despite lung cancer diagnosis Trelegy (ICS/AC/LABA) as an outpatient We will substitute Anoro Ellipta (AC/LABA) and Arnuity Ellipta (ICS) while inpatient Oxygenating well on room air Supplemental oxygen as needed to maintain SaO2 between 88 and 92% Continue to monitor vital signs per protocol (7) History of lung cancer: Plan: Hematology/oncology consulted -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 Morin's input Patient saturating well on room air Patient was not deemed to be consentable and no family members available Repeat chest x-ray with stable moderate left pleural effusion At this time we will continue to monitor clinically f/u as outpt with PULM (9) Peripheral arterial disease: Plan: Patient should be on antiplatelet/statin, started Plavix and statin History of aortofemoral bypass per prior notes (10) Bilateral carotid artery occlusion: Plan: as above (11) Unstageable pressure ulcer of left heel: Plan: XR ankle to assess for OM, no surrounding cellulitis Skin care per nursing protocol (12) Bipolar disorder: Plan: stable depakote, reduced dose of seroquel and wellbutrin Plan: VTE Prophylaxis - SCDs Diet - regular Disposition: Patient will need long term facility or inpatient rehab. Working with case management. still looking for rehab placement Admission and Anticipated Discharge Date Admission Date: March 20, 2021 Subjective Is awake more conversant today. Denies pain or lightheadedness. He was in the wheelchair wheeling himself around the halls with PT today. Review of Systems Review of Systems: All systems reviewed & are unremarkable except as noted in HPI & below Physical Exam Constitutional: WD/WN, vitals as above Neck: trachea midline, no thyromegaly Respiratory: normal respiratory effort Auscultation: + crackles (bases); no wheezes Cardiovascular: RRR, no murmur, no edema Chest (Breasts): Chest: normal inspection of chest Gastrointestinal (Abdomen): normal bowel sounds, soft, nontender, no hepatosplenomegaly Musculoskeletal: Extremities: extremities normal to inspection; no cyanosis and no clubbing Skin: no rashes, warm and dry Neurologic: moves all extremities and awake; no focal motor deficits Psychiatric: Orientation: alert, oriented to person and cooperative Lymphatic: no lymphedema Results & Data Results & Data ([facility]) Vital Signs (Past 12 Hours) Vital Signs Temp Pulse Pulse Resp BP BP Pulse Ox 03/26/21 22:16 36.8 C 82 20 127/82 98 03/26/21 16:17 36.3 C L 91 H 20 102/68 96 Laboratory Results 03/26/21 03/26/21 Range/Units 07:54 07:54 WBC 6.67 (4.8-10.8) K/uL RBC 4.02 L (4.7-6.1) M/uL Hgb 10.3 L (14.0-18.0) g/dL Hct 30.6 L (42-52) % MCV 76.1 L (80-100) fL MCH 25.6 (25-34) pg MCHC 33.7 (32-36) g/dL RDW Std Deviation 56.9 H (36.4-46.3) fL RDW Coeff of Raul 20.4 H (11.5-14.5) % Plt Count 251 (130-400) K/uL MPV 9.0 (7.4-10.4) fL Immature Gran % (Auto) 0.3 % Neut % (Auto) 74.0 % Lymph % (Auto) 10.8 % [place]urel % (Auto) 10.5 % Eos % (Auto) 4.3 % Baso % (Auto) 0.1 % Neut # (Auto) 4.93 (1.4-6.5) K/uL Lymph # (Auto) 0.72 L (1.2-3.4) K/uL [place] # (Auto) 0.70 H (0.11-0.59) K/uL Eos # (Auto) 0.29 (0-0.5) K/uL Baso # (Auto) 0.01 (0-0.2) K/uL Immature Gran # (Auto) 0.02 (0.00-0.02) K/uL Hypochromasia Present Poikilocytosis Present Anisocytosis Present Echinocytes 1+ Sodium 137 (136-145) mmol/L Potassium 4.1 (3.5-5.1) mmol/L Chloride 106 (98-107) mmol/L Carbon Dioxide 25 (21-32) mmol/L Anion Gap 5.0 (3-11) BUN 15 (7-18) mg/dl Creatinine 0.72 (0.6-1.4) mg/dl Est Cr Clr Drug Dosing 86.6 ml/min Est GFR ( Amer) 111.9 ml/min Est GFR (Non-Af Amer) 96.5 ml/min BUN/Creatinine Ratio 20.5 H (10-20) Glucose 95 (70-99) mg/dl Calcium 9.0 (8.5-10.1) mg/dl PG Care Time/CCT Total # of Minutes Spent Total Time Spent with Patient: Total time spent is greater than 50% in coordination of care (as documented) at patient's floor/unit and/or counseling patient: Coding Level of Care Code 31716 Subseq Hosp Care Lvl 1 Diagnoses Fall W19.XXXA Encounter type: initial encounter Anemia D64.9 Hypotension I95.9 CKD (chronic kidney disease) stage 2, GFR 60-89 ml/min N18.2 Chronic hypoxemic respiratory failure J96.11 COPD (chronic obstructive pulmonary disease) with chronic bronchitis J44.9 History of lung cancer Z85.118 Recurrent left pleural effusion J90 Peripheral arterial disease I73.9 Bilateral carotid artery occlusion I65.23 Unstageable pressure ulcer of left heel L89.620 Bipolar disorder F31.9 Most recent bipolar episode type: most recent episode unspecified type (1) Fall Encounter type: initial encounter Qualified Code(s): W19.XXXA - Unspecified fall, initial encounter (2) Bipolar disorder Most recent bipolar episode type: most recent episode unspecified type
[2021-03-27] MEDS: MIDODRINE HCL 2.5 MG TAB PO SCH ×4 (09:30→16:55)
[2021-03-27] MEDS: FERROUS SULFATE 325 MG TAB PO SCH ×3 (09:40→16:56)
[2021-03-27] MEDS: ASCORBIC ACID 500 MG TAB PO SCH ×3 (09:41→20:41)
[2021-03-27] MEDS: ATORVASTATIN 40 MG TAB PO SCH ×2 (09:42→12:34)
[2021-03-27] MEDS: CHOLECALCIFEROL 1,000 UNITS 25 MCG TAB PO SCH ×2 (09:42→12:33)
[2021-03-27] MEDS: FOLIC ACID 1 MG TAB PO SCH ×2 (09:43→15:59)
[2021-03-27] MEDS: PANTOprazole 40 MG TAB PO SCH ×2 (09:43→15:59)
[2021-03-27] MEDS: buPROPion HCl 100 MG TABLET PO SCH ×2 (09:44→15:59)
[2021-03-27] MEDS: CLOPIDOGREL BISULFATE 75 MG TAB PO SCH ×2 (09:44→12:33)
[2021-03-27] MEDS: FINASTERIDE 5 MG TAB PO SCH ×2 (09:45→15:59)
[2021-03-27] MEDS: FLUTICASONE FUROATE 100MCG 14 PUFFS/INHALER INH SCH (09:48)
[2021-03-27] MEDS: UMECLIDINIUM/VILANTEROL 62.5/25MCG 7 PUFFS/INHALER INH SCH (09:49)
[2021-03-27] MEDS: DIVALPROEX DELAY RELEASE 250 MG TABEC PO SCH ×3 (09:49→20:41)
[2021-03-27] MEDS: ONDANSETRON INJ 2 MG/ML 2 ML VIAL IV PRN (10:28)
--- NOTE | 2021-03-27 19:35 | Hospitalist Progress Note ---
Date of Service March 27, 2021 Assessment & Plan (1) Fall: Plan: Suspect the patient's falls are multifactorial: generalized deconditioning, profound orthostatic hypotension Reduced Seroquel from 50mg to 12.5mg given orthostasis and added midodrine---> now significantly improved and orthostatics are now negative Pt is much more conversive, alert and awake He has frequent falls at home and uses a wheelchair but does stand and pivot to get in BP dropped to 70s systolic with PT eval on 03/18 and was symptomatic. Dropped to the 50s systolic on 03/24 with lightheadedness Hgb was down to 7.3 but now came up to 10.1 with no intervention-unclear if lab error or hemodilution? PT/OT evaluations completed and recommending inpatient rehab versus SNF (2) Anemia: Plan: Appears to be stable without intervention. No blood was transfused. Microcytic, Fe deficiency Iron level 35, TIBC 275, 12.7% saturation B12 479 Folate low at 2.5 - start on supplementation for this -hgb somehow was 7.3 and now up to 10 without intervention/no transfusion- perhaps hemodilution Start Fe supplementation as well Last colonoscopy 13 years ago he thinks. No obvious bleeding from anywhere as per history -should f/u with GI as outpt for EGD/colonoscopy (3) Hypotension: Plan: with profound orthostasis now resolved as above Discontinued metoprolol -added midodrine 2.5mg po tid for severe orthostasis and lowered Seroquel dose as above (4) CKD (chronic kidney disease) stage 2, GFR 60-89 ml/min: Plan: Renal function appears to be at baseline in this patient, continue to monitor periodically (5) Chronic hypoxemic respiratory failure: Plan: Patient is not on supplemental oxygen, continue to monitor Oxygenating well at 92% on room air Repeat chest x-ray with question of opacity in the right lower lobe Previous procalcitonin on 03/17/2021 was negative No other signs or symptoms of PNA, no abx needed probably related to lung CA dx--> f/u with Oncology (6) COPD (chronic obstructive pulmonary disease) with chronic bronchitis: Plan: Patient with a very history of COPD, still smoking despite lung cancer diagnosis Trelegy (ICS/AC/LABA) as an outpatient We will substitute Anoro Ellipta (AC/LABA) and Arnuity Ellipta (ICS) while inpatient Oxygenating well on room air Supplemental oxygen as needed to maintain SaO2 between 88 and 92% Continue to monitor vital signs per protocol (7) History of lung cancer: Plan: Hematology/oncology consulted -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 Morin's input Patient saturating well on room air Patient was not deemed to be consentable and no family members available Repeat chest x-ray with stable moderate left pleural effusion At this time we will continue to monitor clinically f/u as outpt with PULM (9) Peripheral arterial disease: Plan: Patient should be on antiplatelet/statin, started Plavix and statin History of aortofemoral bypass per prior notes (10) Bilateral carotid artery occlusion: Plan: as above (11) Unstageable pressure ulcer of left heel: Plan: XR ankle to assess for OM, no surrounding cellulitis Skin care per nursing protocol (12) Bipolar disorder: Plan: stable depakote, reduced dose of seroquel and wellbutrin (13) Nausea: Plan: could be related to the ferrous sulfate, constipation (no BM recorded in 4 days) -HOLD ferrous sulfate start senna/docusate added zofran prn Plan: VTE Prophylaxis - SCDs Diet - regular Disposition: Patient will need residential facility or inpatient rehab. Working with case management. still looking for rehab placement Admission and Anticipated Discharge Date Admission Date: March 20, 2021 Subjective Pt threw up his pills this AM as per RN. He was given Zofran and then later was able to take his pills and eat. I saw him in the evening and he was sleepy, didn't really want to talk to me. Review of Systems Review of Systems: All systems reviewed & are unremarkable except as noted in HPI & below Physical Exam Constitutional: WD/WN, vitals as above Neck: trachea midline, no thyromegaly Respiratory: normal respiratory effort Auscultation: + crackles (bases); no wheezes Cardiovascular: RRR, no murmur, no edema Chest (Breasts): Chest: normal inspection of chest Gastrointestinal (Abdomen): normal bowel sounds, soft, nontender, no hepatosplenomegaly Musculoskeletal: Extremities: extremities normal to inspection; no cyanosis and no clubbing Skin: no rashes, warm and dry Neurologic: moves all extremities and awake; no focal motor deficits Psychiatric: Orientation: alert (but somewhat drowsy), oriented to person and cooperative Lymphatic: no lymphedema Results & Data Results & Data ([facility]) Vital Signs (Past 12 Hours) Vital Signs Temp Pulse Resp BP BP Pulse Ox 03/27/21 16:36 37.0 C 60 16 99/65 L 96/68 L 94 03/27/21 07:40 36.6 C 78 16 103/69 99 PG Care Time/CCT Total # of Minutes Spent Total Time Spent with Patient: Total time spent is greater than 50% in coordination of care (as documented) at patient's floor/unit and/or counseling patient: Coding Level of Care Code 52398 Subseq Hosp Care Lvl 2 Diagnoses Fall W19.XXXA Encounter type: initial encounter Anemia D64.9 Hypotension I95.9 CKD (chronic kidney disease) stage 2, GFR 60-89 ml/min N18.2 Chronic hypoxemic respiratory failure J96.11 COPD (chronic obstructive pulmonary disease) with chronic bronchitis J44.9 History of lung cancer Z85.118 Recurrent left pleural effusion J90 Peripheral arterial disease I73.9 Bilateral carotid artery occlusion I65.23 Unstageable pressure ulcer of left heel L89.620 Bipolar disorder F31.9 Most recent bipolar episode type: most recent episode unspecified type Nausea R11.0 (1) Fall Encounter type: initial encounter Qualified Code(s): W19.XXXA - Unspecified fall, initial encounter (2) Bipolar disorder Most recent bipolar episode type: most recent episode unspecified type
[2021-03-27] MEDS: QUEtiapine FUMARATE 25 MG TABLET PO SCH (20:41)
[2021-03-27] MEDS: DOCUSATE SODIUM/SENNA 50/8.6MG TAB PO SCH (20:41)
[2021-03-28] MEDS: DOCUSATE SODIUM/SENNA 50/8.6MG TAB PO SCH (08:36)
[2021-03-28] MEDS: ASCORBIC ACID 500 MG TAB PO SCH ×2 (08:37→20:49)
[2021-03-28] MEDS: FOLIC ACID 1 MG TAB PO SCH (08:37)
[2021-03-28] MEDS: MIDODRINE HCL 2.5 MG TAB PO SCH ×3 (08:39→17:29)
[2021-03-28] MEDS: FINASTERIDE 5 MG TAB PO SCH (08:39)
[2021-03-28] MEDS: ATORVASTATIN 40 MG TAB PO SCH (08:40)
[2021-03-28] MEDS: buPROPion HCl 100 MG TABLET PO SCH (08:40)
[2021-03-28] MEDS: CHOLECALCIFEROL 1,000 UNITS 25 MCG TAB PO SCH (08:41)
[2021-03-28] MEDS: CLOPIDOGREL BISULFATE 75 MG TAB PO SCH (08:41)
[2021-03-28] MEDS: DIVALPROEX DELAY RELEASE 250 MG TABEC PO SCH ×2 (08:41→20:51)
[2021-03-28] MEDS: FLUTICASONE FUROATE 100MCG 14 PUFFS/INHALER INH SCH (08:42)
[2021-03-28] MEDS: UMECLIDINIUM/VILANTEROL 62.5/25MCG 7 PUFFS/INHALER INH SCH (08:42)
[2021-03-28] MEDS: PANTOprazole 40 MG TAB PO SCH (08:42)
--- NOTE | 2021-03-28 18:16 | Hospitalist Progress Note ---
Date of Service March 28, 2021 Assessment & Plan (1) Fall: Plan: Suspect the patient's falls are multifactorial: generalized deconditioning, profound orthostatic hypotension Reduced Seroquel from 50mg to 12.5mg given orthostasis and added midodrine---> now significantly improved and orthostatics are now negative Pt is much more conversive, alert and awake He has frequent falls at home and uses a wheelchair but does stand and pivot to get in BP dropped to 70s systolic with PT eval on 03/18 and was symptomatic. Dropped to the 50s systolic on 03/24 with lightheadedness Hgb was down to 7.3 but now came up to 10.1 with no intervention-unclear if lab error or hemodilution? PT/OT evaluations completed and recommending inpatient rehab versus SNF (2) Anemia: Plan: Appears to be stable without intervention. No blood was transfused. Microcytic, Fe deficiency Iron level 35, TIBC 275, 12.7% saturation B12 479 Folate low at 2.5 - started on supplementation for this -hgb somehow was 7.3 and now up to 10 without intervention/no transfusion- perhaps hemodilution Started Fe supplementation but then was having nausea and worsening constipation-HOLD for now Last colonoscopy 13 years ago he thinks. No obvious bleeding from anywhere as per history -should f/u with GI as outpt for EGD/colonoscopy (3) Hypotension: Plan: with profound orthostasis now resolved as above Discontinued metoprolol -added midodrine 2.5mg po tid for severe orthostasis and lowered Seroquel dose as above (4) CKD (chronic kidney disease) stage 2, GFR 60-89 ml/min: Plan: Renal function appears to be at baseline in this patient, continue to monitor periodically (5) Chronic hypoxemic respiratory failure: Plan: Patient is not on supplemental oxygen, continue to monitor Oxygenating well at 92% on room air Repeat chest x-ray with question of opacity in the right lower lobe Previous procalcitonin on 03/17/2021 was negative No other signs or symptoms of PNA, no abx needed probably related to lung CA dx--> f/u with Oncology (6) COPD (chronic obstructive pulmonary disease) with chronic bronchitis: Plan: Patient with a very history of COPD, still smoking despite lung cancer diagnosis Trelegy (ICS/AC/LABA) as an outpatient We will substitute Anoro Ellipta (AC/LABA) and Arnuity Ellipta (ICS) while inpatient Oxygenating well on room air Supplemental oxygen as needed to maintain SaO2 between 88 and 92% Continue to monitor vital signs per protocol (7) History of lung cancer: Plan: Hematology/oncology consulted -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 Morin's input Patient saturating well on room air Patient was not deemed to be consentable and no family members available Repeat chest x-ray with stable moderate left pleural effusion At this time we will continue to monitor clinically f/u as outpt with PULM (9) Peripheral arterial disease: Plan: Patient should be on antiplatelet/statin, started Plavix and statin History of aortofemoral bypass per prior notes (10) Bilateral carotid artery occlusion: Plan: as above (11) Unstageable pressure ulcer of left heel: Plan: XR ankle to assess for OM, no surrounding cellulitis Skin care per nursing protocol (12) Bipolar disorder: Plan: stable depakote, reduced dose of seroquel and wellbutrin (13) Nausea: Plan: could be related to the ferrous sulfate, constipation (no BM recorded in 4 days) Nausea now resolved after stopping the FeSO4, but constipation continues -HOLD ferrous sulfate -bowel regimen zofran prn (14) Constipation: Plan: continue senna/docusate add Miralax daily Plan: VTE Prophylaxis - SCDs Diet - regular Disposition: Patient will need long-term facility or inpatient rehab. Lives alone in [facility] and is quite debilitated, unable to care for self. Working with case management. still looking for rehab placement-no beds available, multiple referrals out Admission and Anticipated Discharge Date Admission Date: March 20, 2021 Subjective Pt has no complaints. Was OOB to chair today for a few hours. Denies any further lightheadedness No more nausea. Still no BM Review of Systems Review of Systems: All systems reviewed & are unremarkable except as noted in HPI & below Physical Exam Constitutional: WD/WN, vitals as above Neck: trachea midline, no thyromegaly Respiratory: normal respiratory effort Auscultation: + diminished lung sounds (at bases) and + crackles (bases); no wheezes Cardiovascular: RRR, no murmur, no edema Chest (Breasts): Chest: normal inspection of chest Gastrointestinal (Abdomen): normal bowel sounds, soft, nontender, no hepatosplenomegaly Musculoskeletal: Extremities: extremities normal to inspection; no cyanosis and no clubbing Skin: no rashes, warm and dry Neurologic: moves all extremities and awake; no focal motor deficits Psychiatric: Orientation: alert, oriented to person and cooperative Lymphatic: no lymphedema Results & Data Results & [facility] ([facility]) Vital Signs (Past 12 Hours) Vital Signs Temp Pulse Resp BP Pulse Ox 03/28/21 16:03 36.5 C 93 H 16 139/87 91 03/28/21 07:45 36.7 C 80 16 115/77 91 PG Care Time/CCT Total # of Minutes Spent Total Time Spent with Patient: Total time spent is greater than 50% in coordination of care (as documented) at patient's floor/unit and/or counseling patient: Coding Level of Care Code 38368 Subseq Hosp Care Lvl 1 Diagnoses Fall W19.XXXA Encounter type: initial encounter Anemia D64.9 Hypotension I95.9 CKD (chronic kidney disease) stage 2, GFR 60-89 ml/min N18.2 Chronic hypoxemic respiratory failure J96.11 COPD (chronic obstructive pulmonary disease) with chronic bronchitis J44.9 History of lung cancer Z85.118 Recurrent left pleural effusion J90 Peripheral arterial disease I73.9 Bilateral carotid artery occlusion I65.23 Unstageable pressure ulcer of left heel L89.620 Bipolar disorder F31.9 Most recent bipolar episode type: most recent episode unspecified type Nausea R11.0 Constipation K59.00 (1) Fall Encounter type: initial encounter Qualified Code(s): W19.XXXA - Unspecified fall, initial encounter (2) Bipolar disorder Most recent bipolar episode type: most recent episode unspecified type
[2021-03-28] MEDS: QUEtiapine FUMARATE 25 MG TABLET PO SCH (20:49)
[2021-03-28] MEDS: POLYETHYLENE (MIRALAX) 17 GM PACK PO SCH (20:49)
[2021-03-29] MEDS ORDERED: HYDROCORTISONE 1% CRM 30 GM TUBE EXT PRN (01:02)
[2021-03-29] MEDS: FOLIC ACID 1 MG TAB PO SCH (09:16)
[2021-03-29] MEDS: ASCORBIC ACID 500 MG TAB PO SCH ×2 (09:16→19:54)
[2021-03-29] MEDS: DOCUSATE SODIUM/SENNA 50/8.6MG TAB PO SCH (09:16)
[2021-03-29] MEDS: buPROPion HCl 100 MG TABLET PO SCH (09:17)
[2021-03-29] MEDS: DIVALPROEX DELAY RELEASE 250 MG TABEC PO SCH ×2 (09:18→19:57)
[2021-03-29] MEDS: ATORVASTATIN 40 MG TAB PO SCH (09:19)
[2021-03-29] MEDS: FINASTERIDE 5 MG TAB PO SCH (09:19)
[2021-03-29] MEDS: MIDODRINE HCL 2.5 MG TAB PO SCH ×3 (09:19→18:32)
[2021-03-29] MEDS: PANTOprazole 40 MG TAB PO SCH (09:20)
[2021-03-29] MEDS: POLYETHYLENE (MIRALAX) 17 GM PACK PO SCH (09:20)
[2021-03-29] MEDS: CLOPIDOGREL BISULFATE 75 MG TAB PO SCH (09:20)
[2021-03-29] MEDS: CHOLECALCIFEROL 1,000 UNITS 25 MCG TAB PO SCH (09:20)
[2021-03-29] MEDS: FLUTICASONE FUROATE 100MCG 14 PUFFS/INHALER INH SCH (09:21)
[2021-03-29] MEDS: UMECLIDINIUM/VILANTEROL 62.5/25MCG 7 PUFFS/INHALER INH SCH (09:21)
[2021-03-29] MEDS: NYSTATIN OINT 15 GM TUBE EXT SCH ×2 (09:26→19:57)
[2021-03-29] MEDS: ENOXAPARIN INJ 30 MG/0.3 ML SYR SQ SCH (14:17)
--- NOTE | 2021-03-29 19:23 | Hospitalist Progress Note ---
Date of Service March 29, 2021 Assessment & Plan (1) Fall: Plan: Suspect the patient's falls are multifactorial: generalized deconditioning, profound orthostatic hypotension BP dropped to 70s systolic with PT eval on 03/18 and was symptomatic. Dropped to the 50s systolic on 03/24 with lightheadedness Hgb was down to 7.3 but now came up to 10.1 with no intervention-unclear if lab error or hemodilution? Orthostatic vital signs are now negative Reduced Seroquel from 50mg to 12.5mg given orthostasis and added midodrine Pt is much more conversive, alert and awake since orthostasis is resolved He has frequent falls at home and uses a wheelchair but does stand and pivot to get in PT/OT evaluations completed and recommending inpatient rehab versus SNF (2) Anemia: Plan: Appears to be stable without intervention. No blood was transfused. Microcytic, Fe deficiency Iron level 35, TIBC 275, 12.7% saturation B12 479 Folate low at 2.5 - started on supplementation for this -hgb somehow was 7.3 and now up to 10 without intervention/no transfusion- perhaps hemodilution Started Fe supplementation but then was having nausea and worsening constipation-HOLD for now Last colonoscopy 13 years ago he thinks. No obvious bleeding from anywhere as per history -should f/u with GI as outpt for EGD/colonoscopy (3) Hypotension: Plan: with profound orthostasis now resolved as above Discontinued metoprolol -added midodrine 2.5mg po tid for severe orthostasis and lowered Seroquel dose as above (4) CKD (chronic kidney disease) stage 2, GFR 60-89 ml/min: Plan: Renal function appears to be at baseline in this patient, continue to monitor periodically (5) Chronic hypoxemic respiratory failure: Plan: Patient is not on supplemental oxygen, continue to monitor Oxygenating well at 92% on room air Repeat chest x-ray with question of opacity in the right lower lobe Previous procalcitonin on 03/17/2021 was negative No other signs or symptoms of PNA, no abx needed probably related to lung CA dx--> f/u with Oncology (6) COPD (chronic obstructive pulmonary disease) with chronic bronchitis: Plan: Patient with a very history of COPD, still smoking despite lung cancer diagnosis Trelegy (ICS/AC/LABA) as an outpatient We will substitute Anoro Ellipta (AC/LABA) and Arnuity Ellipta (ICS) while inpatient Oxygenating well on room air Supplemental oxygen as needed to maintain SaO2 between 88 and 92% Continue to monitor vital signs per protocol (7) History of lung cancer: Plan: Hematology/oncology consulted -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 Morin's input Patient saturating well on room air Patient was not deemed to be consentable and no family members available Repeat chest x-ray with stable moderate left pleural effusion At this time we will continue to monitor clinically f/u as outpt with PULM (9) Peripheral arterial disease: Plan: Patient should be on antiplatelet/statin, started Plavix and statin History of aortofemoral bypass per prior notes (10) Bilateral carotid artery occlusion: Plan: as above (11) Unstageable pressure ulcer of left heel: Plan: XR ankle to assess for OM, no surrounding cellulitis Skin care per nursing protocol (12) Bipolar disorder: Plan: stable depakote, reduced dose of seroquel and wellbutrin (13) Nausea: Plan: could be related to the ferrous sulfate, constipation which is now resolved-had a bowel movement on 03/29 Nausea now resolved after stopping the FeSO4 -Continue to HOLD ferrous sulfate and consider restarting it once daily after he moves his bowels more -Continue bowel regimen zofran prn (14) Constipation: Plan: continue senna/docusate Continue Miralax daily Plan: VTE Prophylaxis - SCDs Diet - regular Disposition: Patient will need prison facility or inpatient rehab. Lives alone in [facility] and is quite debilitated, unable to care for self. Working with case management. still looking for rehab placement-no beds available, multiple referrals out Admission and Anticipated Discharge Date Admission Date: March 20, 2021 Subjective Patient has no complaints. He is eating dinner. He was out of bed to the chair today without any problems. Review of Systems Review of Systems: All systems reviewed & are unremarkable except as noted in HPI & below Physical Exam Constitutional: WD/WN, vitals as above Neck: trachea midline, no thyromegaly Respiratory: normal respiratory effort Auscultation: + diminished lung sounds (at bases) and + crackles (bases); no wheezes Cardiovascular: RRR, no murmur, no edema Chest (Breasts): Chest: normal inspection of chest Gastrointestinal (Abdomen): normal bowel sounds, soft, nontender, no hepatosplenomegaly Musculoskeletal: Extremities: extremities normal to inspection; no cyanosis and no clubbing Skin: no rashes, warm and dry Neurologic: moves all extremities and awake; no focal motor deficits Psychiatric: Orientation: alert, oriented to person and cooperative Lymphatic: no lymphedema Results & Data Results & Data ([facility]) Vital Signs (Past 12 Hours) Vital Signs Temp Pulse Resp BP Pulse Ox 03/29/21 16:00 37 C 79 20 120/75 93 03/29/21 08:00 36.9 C 83 18 128/78 94 PG Care Time/CCT Total # of Minutes Spent Total Time Spent with Patient: Total time spent is greater than 50% in coordination of care (as documented) at patient's floor/unit and/or counseling patient: Coding Level of Care Code 05948 Subseq Hosp Care Lvl 1 Diagnoses Fall W19.XXXA Encounter type: initial encounter Anemia D64.9 Hypotension I95.9 CKD (chronic kidney disease) stage 2, GFR 60-89 ml/min N18.2 Chronic hypoxemic respiratory failure J96.11 COPD (chronic obstructive pulmonary disease) with chronic bronchitis J44.9 History of lung cancer Z85.118 Recurrent left pleural effusion J90 Peripheral arterial disease I73.9 Bilateral carotid artery occlusion I65.23 Unstageable pressure ulcer of left heel L89.620 Bipolar disorder F31.9 Most recent bipolar episode type: most recent episode unspecified type Nausea R11.0 Constipation K59.00 (1) Bipolar disorder Most recent bipolar episode type: most recent episode unspecified type (2) Fall Encounter type: initial encounter Qualified Code(s): W19.XXXA - Unspecified fall, initial encounter
[2021-03-29] MEDS: QUEtiapine FUMARATE 25 MG TABLET PO SCH (19:58)
[2021-03-30] MEDS: MIDODRINE HCL 2.5 MG TAB PO SCH ×3 (09:27→18:28)
[2021-03-30] MEDS: ATORVASTATIN 40 MG TAB PO SCH (09:28)
[2021-03-30] MEDS: ASCORBIC ACID 500 MG TAB PO SCH ×2 (09:28→21:25)
[2021-03-30] MEDS: CHOLECALCIFEROL 1,000 UNITS 25 MCG TAB PO SCH (09:28)
[2021-03-30] MEDS: buPROPion HCl 100 MG TABLET PO SCH (09:28)
[2021-03-30] MEDS: CLOPIDOGREL BISULFATE 75 MG TAB PO SCH (09:28)
[2021-03-30] MEDS: DIVALPROEX DELAY RELEASE 250 MG TABEC PO SCH ×2 (09:28→21:25)
[2021-03-30] MEDS: DOCUSATE SODIUM/SENNA 50/8.6MG TAB PO SCH (09:29)
[2021-03-30] MEDS: ENOXAPARIN INJ 30 MG/0.3 ML SYR SQ SCH (09:29)
[2021-03-30] MEDS: FINASTERIDE 5 MG TAB PO SCH (09:30)
[2021-03-30] MEDS: FLUTICASONE FUROATE 100MCG 14 PUFFS/INHALER INH SCH (09:30)
[2021-03-30] MEDS: PANTOprazole 40 MG TAB PO SCH (09:30)
[2021-03-30] MEDS: FOLIC ACID 1 MG TAB PO SCH (09:30)
[2021-03-30] MEDS: UMECLIDINIUM/VILANTEROL 62.5/25MCG 7 PUFFS/INHALER INH SCH (09:31)
[2021-03-30] MEDS: POLYETHYLENE (MIRALAX) 17 GM PACK PO SCH (09:32)
[2021-03-30] MEDS: NYSTATIN OINT 15 GM TUBE EXT SCH ×2 (09:46→21:31)
--- NOTE | 2021-03-30 17:50 | Hospitalist Progress Note ---
Date of Service March 30, 2021 Assessment & Plan (1) Fall: Plan: Suspect the patient's falls are multifactorial: generalized deconditioning, profound orthostatic hypotension BP dropped to 70s systolic with PT eval on 03/18 and was symptomatic. Dropped to the 50s systolic on 03/24 with lightheadedness Hgb was down to 7.3 but now came up to 10.1 with no intervention-unclear if lab error or hemodilution? Orthostatic vital signs are now negative with changes made as outlined below: Reduced Seroquel from 50mg to 12.5mg given orthostasis added midodrine metoprolol stopped (BP/HR stable) Pt is much more conversive, alert and awake since orthostasis is resolved He has frequent falls at home and uses a wheelchair but does stand and pivot to get in PT/OT evaluations completed and recommending inpatient rehab versus SNF--> case mgmt on board (2) Anemia: Plan: Appears to be stable without intervention. No blood was transfused. hgb somehow was 7.3 and now up to 10 without intervention/no transfusion-perhaps hemodilution FU labs in am to trend (3) Hypotension: Plan: with profound orthostasis now resolved as above Discontinued metoprolol -added midodrine 2.5mg po tid for severe orthostasis and lowered Seroquel dose as above (4) CKD (chronic kidney disease) stage 2, GFR 60-89 ml/min: Plan: Renal function appears to be at baseline in this patient, continue to monitor periodically (5) Chronic hypoxemic respiratory failure: Plan: Patient is not on supplemental oxygen, continue to monitor Oxygenating well at 92% on room air Repeat chest x-ray with question of opacity in the right lower lobe Previous procalcitonin on 03/17/2021 was negative No other signs or symptoms of PNA, no abx needed probably related to lung CA dx--> f/u with Oncology (6) COPD (chronic obstructive pulmonary disease) with chronic bronchitis: Plan: Patient with a very history of COPD, still smoking despite lung cancer diagnosis Trelegy (ICS/AC/LABA) as an outpatient We will substitute Anoro Ellipta (AC/LABA) and Arnuity Ellipta (ICS) while inpatient Oxygenating well on room air Supplemental oxygen as needed to maintain SaO2 between 88 and 92% Continue to monitor vital signs per protocol (7) History of lung cancer: Plan: Hematology/oncology consulted -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 Morin's input Patient saturating well on room air Patient was not deemed to be consentable and no family members available Repeat chest x-ray with stable moderate left pleural effusion At this time we will continue to monitor clinically f/u as outpt with PULM (9) Peripheral arterial disease: Plan: Patient should be on antiplatelet/statin, started Plavix and statin History of aortofemoral bypass per prior notes (10) Bilateral carotid artery occlusion: Plan: as above (11) Unstageable pressure ulcer of left heel: Plan: XR ankle to assess for OM, no surrounding cellulitis Skin care per nursing protocol (12) Bipolar disorder: Plan: stable depakote, reduced dose of seroquel and wellbutrin (13) Constipation: Plan: bowel protocol ordered: continue senna/docusate Continue Miralax daily Plan: Disposition: Patient will need custodial facility or inpatient rehab. Lives alone in [facility] and is quite debilitated, unable to care for self. Working with case management. still looking for rehab placement-no beds available, multiple referrals out Admission and Anticipated Discharge Date Admission Date: March 20, 2021 Subjective Patient seen on daily rounds today. Hospitalized 03/17 with generalized weakness and multiple falls. Had been in and out of the ED and each time, found to be hypotensive 60-80/30-56 but seemed to be self-limited. Improved without any intervention. Came back to the ED on 03/17 given weakness and a fall. Again blood pressure marginally low but rebounded without any intervention. Initial hemoglobin was low at 7.3 but subsequently improved to 10.5 without intervention (this was thought to possibly be a lab error). He had a full work- up without obvious cause this included CXR, CT of the abdomen and pelvis, CT of the head, CXR, (CTA of the chest, CT of the C-spine, left ankle x-ray, and MRI of the brain). No acute pathology noted. Orthostatic hypotension was noted for which patient was started on midodrine and his metoprolol stopped. In addition, his Seroquel was down regulated. Overall, blood pressures have been normal. He is no longer experiencing orthostasis. Therapy has been on board and is recommending placement. Case management on board and currently awaiting bed availability. Review of Systems Review of Systems: All systems reviewed and are unremarkable except as noted in HPI and below Denies fevers, chills, headache, nasal congestion, sore throat, cough, chest pain, shortness of breath, palpitations, orthopnea, PND, abdominal pain, nausea, vomiting, diarrhea, constipation, dysuria, hematuria, frequency, back pain, joint pain or swelling, easy bruising or bleeding, skin lesions or rashes. Physical Exam Physical Exam: General: Resting comfortably in his hospital bed. Does not appear ill or toxic. NAD. HEENT: Head is AT/NC buccal mucosa is moist and pink Neck: No JVD. Negative hepatojugular reflex Cardiac: RRR with 1/6 EDUARDO Lungs: CTA without W/R/R Abdomen: Normoactive X4. Soft and nontender in all quadrants. Extremities: No peripheral clubbing cyanosis or edema Neuro: A&O X4 cranial nerves II through XII are grossly intact no focal neuro deficits Skin: No obvious skin lesions or rashes Psych: Appropriate affect pleasant and cooperative Results & Data Results & Data ([facility]) Vital Signs (Past 12 Hours) Vital Signs Temp Pulse Resp BP Pulse Ox 03/30/21 15:03 36.3 C L 78 18 107/71 96 03/30/21 11:27 36.6 C 84 16 115/74 95 03/30/21 07:34 36.5 C 80 16 137/75 97 Laboratory Results No lab data today. Most recent labs: 03/26/21 07:54 03/26/21 07:54 PG Care Time/CCT Total # of Minutes Spent Total Time Spent with Patient: Total time spent is greater than 50% in coordination of care (as documented) at patient's floor/unit and/or counseling patient: Coding Level of Care Code 50599 Subseq Hosp Care Lvl 2 Diagnoses Fall W19.XXXA Encounter type: initial encounter Anemia D64.9 Hypotension I95.9 CKD (chronic kidney disease) stage 2, GFR 60-89 ml/min N18.2 Chronic hypoxemic respiratory failure J96.11 COPD (chronic obstructive pulmonary disease) with chronic bronchitis J44.9 History of lung cancer Z85.118 Recurrent left pleural effusion J90 Peripheral arterial disease I73.9 Bilateral carotid artery occlusion I65.23 Unstageable pressure ulcer of left heel L89.620 Bipolar disorder F31.9 Most recent bipolar episode type: most recent episode unspecified type Constipation K59.00 (1) Fall Encounter type: initial encounter Qualified Code(s): W19.XXXA - Unspecified fall, initial encounter (2) Bipolar disorder Most recent bipolar episode type: most recent episode unspecified type
[2021-03-30] MEDS: QUEtiapine FUMARATE 25 MG TABLET PO SCH (21:25)
[2021-03-31 07:09] LABS: Hematocrit (blood only) 27.2 % (42-52); Hemoglobin 8.7 g/dL (14.0-18.0); Mean Corpuscular Hemoglobin 25.4 pg (25-34); Mean Corpuscular Volume 79.5 fL (80-100); Platelet Count 338 K/uL (130-400); RDW Coefficient of Variation 20.5 % (11.5-14.5); RDW Standard Deviation 59.5 fL (36.4-46.3); Red Blood Count 3.42 M/uL (4.7-6.1); White Blood Count 6.12 K/uL (4.8-10.8)
[2021-03-31 07:36] LABS: BUN Creatinine Ratio 19.8 (10-20); Calcium 8.9 mg/dl (8.5-10.1); Creatinine Clr Calc Pharmacy 79.9 ml/min; Est GFR (African American) 108.3 ml/min; Est GFR (Non-African American) 93.4 ml/min; Potassium 3.8 mmol/L (3.5-5.1)
[2021-03-31 07:39] LABS: Albumin Globulin Ratio 0.4 (0.9-2); Bilirubin,Total 0.2 mg/dl (0.2-1); Globulin 5.1 gm/dl (2.5-4.0); Total Protein 7.1 gm/dl (6.4-8.2)
[2021-03-31] MEDS: ASCORBIC ACID 500 MG TAB PO SCH ×2 (09:59→20:44)
[2021-03-31] MEDS: PANTOprazole 40 MG TAB PO SCH (10:00)
[2021-03-31] MEDS: DOCUSATE SODIUM/SENNA 50/8.6MG TAB PO SCH (10:00)
[2021-03-31] MEDS: FINASTERIDE 5 MG TAB PO SCH (10:00)
[2021-03-31] MEDS: CHOLECALCIFEROL 1,000 UNITS 25 MCG TAB PO SCH (10:00)
[2021-03-31] MEDS: FOLIC ACID 1 MG TAB PO SCH (10:00)
[2021-03-31] MEDS: MIDODRINE HCL 2.5 MG TAB PO SCH ×3 (10:00→17:57)
[2021-03-31] MEDS: ATORVASTATIN 40 MG TAB PO SCH (10:01)
[2021-03-31] MEDS: buPROPion HCl 100 MG TABLET PO SCH (10:01)
[2021-03-31] MEDS: DIVALPROEX DELAY RELEASE 250 MG TABEC PO SCH ×2 (10:01→20:45)
[2021-03-31] MEDS: CLOPIDOGREL BISULFATE 75 MG TAB PO SCH (10:01)
[2021-03-31] MEDS: FLUTICASONE FUROATE 100MCG 14 PUFFS/INHALER INH SCH (10:02)
[2021-03-31] MEDS: POLYETHYLENE (MIRALAX) 17 GM PACK PO SCH (10:02)
[2021-03-31] MEDS: UMECLIDINIUM/VILANTEROL 62.5/25MCG 7 PUFFS/INHALER INH SCH (10:03)
[2021-03-31] MEDS: NYSTATIN OINT 15 GM TUBE EXT SCH ×2 (10:03→20:48)
[2021-03-31] MEDS ORDERED: IRON SUCROSE 300 MG in SODIUM CHLORIDE 0.9% 250 ML IV ONE (12:00)
--- NOTE | 2021-03-31 14:33 | Hospitalist Progress Note ---
Date of Service March 31, 2021 Assessment & Plan (1) Fall: Plan: Suspect the patient's falls are multifactorial: generalized deconditioning, profound orthostatic hypotension BP dropped to 70s systolic with PT eval on 03/18 and was symptomatic. Dropped to the 50s systolic on 03/24 with lightheadedness Hgb was down to 7.3 but now came up to 10.1 with no intervention-back down today to 8.7 but asymptomatic Orthostatic vital signs are now negative with changes made as outlined below: Reduced Seroquel from 50mg to 12.5mg given orthostasis added midodrine metoprolol stopped (BP/HR stable) Pt is much more conversive, alert and awake since orthostasis is resolved He has frequent falls at home and uses a wheelchair but does stand and pivot to get in PT/OT evaluations completed and recommending inpatient rehab versus SNF--> case mgmt on board (2) Anemia: Plan: Appears to be stable without intervention. No blood was transfused. hgb somehow was 7.3 -- up to 10.1 without intervention/no transfusion- now 8.7 (asymptomatic) Dr. Keene is patient's established oncologist and recommended folate and ferrous sulfate. 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 hold this for now given drop in hgb patient on PPI FU labs in am to trend (3) Hypotension: Plan: with profound orthostasis now resolved as above Discontinued metoprolol -added midodrine 2.5mg po tid for severe orthostasis and lowered Seroquel dose as above (4) CKD (chronic kidney disease) stage 2, GFR 60-89 ml/min: Plan: Renal function appears to be at baseline in this patient, continue to monitor periodically (5) Chronic hypoxemic respiratory failure: Plan: Patient is not on supplemental oxygen, continue to monitor Oxygenating well at 92%-94% on room air. Repeat chest x-ray with question of opacity in the right lower lobe Previous procalcitonin on 03/17/2021 was negative No other signs or symptoms of PNA, no abx needed probably related to lung CA dx--> f/u with Oncology (6) COPD (chronic obstructive pulmonary disease) with chronic bronchitis: Plan: Patient with a very history of COPD, still smoking despite lung cancer diagnosis ? reoccurrence of non-small cell lung CA Trelegy (ICS/AC/LABA) as an outpatient We will substitute Anoro Ellipta (AC/LABA) and Arnuity Ellipta (ICS) while inpatient Oxygenating well on room air Supplemental oxygen as needed to maintain SaO2 between 88 and 92% Continue to monitor vital signs per protocol pulmonology consulted-- appreciate recommendations (7) History of lung cancer: Plan: Hematology/oncology consulted -will turkey picker again as an outpatient on 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 Morin's input Patient saturating well on room air Patient was not deemed to be consentable and no family members available Repeat chest x-ray with stable moderate left pleural effusion At this time we will continue to monitor clinically f/u as outpt with PULM (9) Peripheral arterial disease: Plan: Patient should be on antiplatelet/statin, started Plavix and statin History of aortofemoral bypass per prior notes hold plavix given drop in hgb (10) Bilateral carotid artery occlusion: Plan: as above (11) Unstageable pressure ulcer of left heel: Plan: XR ankle to assess for OM, no surrounding cellulitis Skin care per nursing protocol (12) Bipolar disorder: Plan: stable depakote, reduced dose of seroquel and wellbutrin (13) Constipation: Plan: bowel protocol ordered: continue senna/docusate Continue Miralax daily Plan: Disposition: Patient will need shelter facility or inpatient rehab. Lives alone in [facility] and is quite debilitated, unable to care for self. Working with case management. still looking for rehab placement-no beds available, multiple referrals out Admission and Anticipated Discharge Date Admission Date: March 20, 2021 Subjective Patient seen on daily rounds today. Overall vocalizes no complaints or concerns. Hemoglobin did drop slightly to 8.7 (was 10.3). Again, had issues with anemia upon presentation open his his hemoglobin was 7.3 and did come up to 10.1 without intervention. Anemia work-up done and patient has subsequently been started on folate and iron (as recommended by Dr. Keene who follows patient routinely given his history of non-small cell lung CA with questionable recurrent disease). Patient is on Lovenox for DVT prophylaxis. 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 Does not vocalize melena or hematochezia. Is on PPI. Still awaiting placement Review of Systems Review of Systems: All systems reviewed and are unremarkable except as noted in HPI and below Denies fevers, chills, headache, nasal congestion, sore throat, cough, chest pain, shortness of breath, palpitations, orthopnea, PND, abdominal pain, nausea, vomiting, diarrhea, constipation, dysuria, hematuria, frequency, back pain, joint pain or swelling, easy bruising or bleeding, skin lesions or rashes. Physical Exam Physical Exam: General: Resting comfortably in his hospital bed. NAD. HEENT: Head is AT/NC buccal mucosa is moist and pink Neck: No JVD. Negative hepatojugular reflex Cardiac: RRR Lungs: Breathing comfortably on ambient air. No accessory muscle use. Does have scattered rhonchi throughout that clears with coughing Abdomen: Normoactive X4. Soft and nontender in all quadrants. Extremities: No peripheral clubbing cyanosis or edema Neuro: A&O X4 cranial nerves II through XII are grossly intact no focal neuro deficits Skin: No obvious skin lesions or rashes Psych: Appropriate affect pleasant and cooperative Results & Data Results & Data ([facility]) Vital Signs (Past 12 Hours) Vital Signs Temp Pulse Resp BP Pulse Ox 03/31/21 07:30 36.6 C 82 20 107/70 94 Laboratory Results 03/31/21 06:26 03/31/21 06:26 PG Care Time/CCT Total # of Minutes Spent Total Time Spent with Patient: Total time spent is greater than 50% in coordin ation of care (as documented) at patient's floor/unit and/or counseling patient: Coding Level of Care Code 97076 Subseq Hosp Care Lvl 3 Diagnoses Fall W19.XXXA Encounter type: initial encounter Anemia D64.9 Hypotension I95.9 CKD (chronic kidney disease) stage 2, GFR 60-89 ml/min N18.2 Chronic hypoxemic respiratory failure J96.11 COPD (chronic obstructive pulmonary disease) with chronic bronchitis J44.9 History of lung cancer Z85.118 Recurrent left pleural effusion J90 Peripheral arterial disease I73.9 Bilateral carotid artery occlusion I65.23 Unstageable pressure ulcer of left heel L89.620 Bipolar disorder F31.9 Most recent bipolar episode type: most recent episode unspecified type Constipation K59.00 (1) Fall Encounter type: initial encounter Qualified Code(s): W19.XXXA - Unspecified fall, initial encounter (2) Bipolar disorder Most recent bipolar episode type: most recent episode unspecified type
[2021-03-31] MEDS: FERROUS GLUCONATE 324 MG TAB PO SCH (17:57)
[2021-03-31] MEDS: QUEtiapine FUMARATE 25 MG TABLET PO SCH (20:44)
[2021-04-01 06:20] LABS: Basophils # (auto) 0.01 K/uL (0-0.2); Basophils % (auto) 0.1 %; Eosinophils # (auto) 0.37 K/uL (0-0.5); Eosinophils % (auto) 5.1 %; Hematocrit (blood only) 31.5 % (42-52); Hemoglobin 10.4 g/dL (14.0-18.0); Immature Granulocytes # (auto) 0.04 K/uL (0.00-0.02); Immature Granulocytes % (auto) 0.6 %; Lymphocytes # (auto) 0.74 K/uL (1.2-3.4); Lymphocytes % (auto) 10.3 %; Mean Corpuscular Hemoglobin 25.2 pg (25-34); Mean Corpuscular Volume 76.5 fL (80-100); Mean Platelet Volume 9.1 fL (7.4-10.4); Monocytes # (auto) 1.24 K/uL (0.11-0.59); Monocytes % (auto) 17.2 %; Neutrophils # (auto) 4.79 K/uL (1.4-6.5); Neutrophils % (auto) 66.7 %; Platelet Count 347 K/uL (130-400); RDW Coefficient of Variation 20.4 % (11.5-14.5); RDW Standard Deviation 56.8 fL (36.4-46.3); Red Blood Count 4.12 M/uL (4.7-6.1); White Blood Count 7.19 K/uL (4.8-10.8)
[2021-04-01 06:56] LABS: Anisocytosis Present; Echinocytes 1+; Microcytosis Present
[2021-04-01] MEDS: ALBUT/IPRATROP 3MG/0.5MG NEB 3 ML VIAL NEB SCH (07:30)
[2021-04-01] MEDS: FLUTICASONE FUROATE 100MCG 14 PUFFS/INHALER INH SCH (09:43)
[2021-04-01] MEDS: UMECLIDINIUM/VILANTEROL 62.5/25MCG 7 PUFFS/INHALER INH SCH (09:43)
[2021-04-01] MEDS: DIVALPROEX DELAY RELEASE 250 MG TABEC PO SCH ×2 (09:44→20:04)
[2021-04-01] MEDS: DOCUSATE SODIUM/SENNA 50/8.6MG TAB PO SCH (09:44)
[2021-04-01] MEDS: CYANOCOBALAMIN 500 MCG TABLET (VITAMIN B-12) PO SCH (09:44)
[2021-04-01] MEDS: MIDODRINE HCL 2.5 MG TAB PO SCH ×3 (09:45→17:51)
[2021-04-01] MEDS: PANTOprazole 40 MG TAB PO SCH (09:45)
[2021-04-01] MEDS: buPROPion HCl 100 MG TABLET PO SCH (09:46)
[2021-04-01] MEDS: FINASTERIDE 5 MG TAB PO SCH (09:46)
[2021-04-01] MEDS: CHOLECALCIFEROL 1,000 UNITS 25 MCG TAB PO SCH (09:46)
[2021-04-01] MEDS: FOLIC ACID 1 MG TAB PO SCH (09:46)
[2021-04-01] MEDS: ATORVASTATIN 40 MG TAB PO SCH (09:47)
[2021-04-01] MEDS: ASCORBIC ACID 500 MG TAB PO SCH ×2 (09:47→20:04)
[2021-04-01] MEDS: POLYETHYLENE (MIRALAX) 17 GM PACK PO SCH (09:47)
[2021-04-01] MEDS: NYSTATIN OINT 15 GM TUBE EXT SCH ×2 (09:47→20:04)
[2021-04-01] MEDS: FERROUS GLUCONATE 324 MG TAB PO SCH ×2 (09:48→17:51)
--- NOTE | 2021-04-01 16:03 | Hospitalist Progress Note ---
Date of Service April 01, 2021 Assessment & Plan (1) Fall: Plan: Suspect the patient's falls are multifactorial: generalized deconditioning, profound orthostatic hypotension BP dropped to 70s systolic with PT eval on 03/18 and was symptomatic. Dropped to the 50s systolic on 03/24 with lightheadedness Hgb has been like a yo-yo (7.3 - 10.1 - 8.7 - 10.4)-- all without intervention (see below) Orthostatic vital signs are now negative with changes made as outlined below: Reduced Seroquel from 50mg to 12.5mg given orthostasis added midodrine metoprolol stopped (BP/HR stable) Pt is much more conversant, alert and awake since orthostasis is resolved He has frequent falls at home and uses a wheelchair but does stand and pivot to get in PT/OT evaluations completed and recommending inpatient rehab versus SNF--> case mgmt on board (2) Anemia: Plan: Appears to be stable without intervention. No blood was transfused. hgb somehow was 7.3 -- up to 10.1 without intervention/no transfusion- back down to 8.7 (asymptomatic) and now 10.4. this is quite strange and I do not have an explanation for this. There is been no shift in fluids. ? lab error??? Did have a W/U and Seen by established tack cleaner/oncologist-- started on Ferrous sulfate/folic acid and B12 lovenox held (was on board for DVT prophylaxis) but no obvious bleeding. 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 on 03/31-- plavix held given that drop in Hgb. continue to hold this for now patient on PPI labs will need followed upon D/C (3) Hypotension: Plan: with profound orthostasis now resolved as above Discontinued metoprolol -added midodrine 2.5mg po tid for severe orthostasis and lowered Seroquel dose as above (4) CKD (chronic kidney disease) stage 2, GFR 60-89 ml/min: Plan: Renal function appears to be at baseline in this patient, continue to monitor periodically (5) Chronic hypoxemic respiratory failure: Plan: Patient is not on supplemental oxygen, continue to monitor Oxygenating well at 92%-94% on room air. Repeat chest x-ray with question of opacity in the right lower lobe Previous procalcitonin on 03/17/2021 was negative No other signs or symptoms of PNA, no abx needed probably related to lung CA dx--> f/u with Oncology (6) COPD (chronic obstructive pulmonary disease) with chronic bronchitis: Plan: Patient with a very history of COPD, still smoking despite lung cancer diagnosis ? reoccurrence of non-small cell lung CA Trelegy (ICS/AC/LABA) as an outpatient We will substitute Anoro Ellipta (AC/LABA) and Arnuity Ellipta (ICS) while inpatient Oxygenating well on room air Supplemental oxygen as needed to maintain SaO2 between 88 and 92% Continue to monitor vital signs per protocol pulmonology consulted-- appreciate recommendations resume neb treatments as prior to hospitalization (7) History of lung cancer: Plan: Hematology/oncology consulted -will cone picker again as an outpatient on 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 Morin's input Patient saturating well on room air Patient was not deemed to be consentable and no family members available Repeat chest x-ray with stable moderate left pleural effusion At this time we will continue to monitor clinically f/u as outpt with PULM (9) Peripheral arterial disease: Plan: Patient should be on antiplatelet/statin, started Plavix and statin History of aortofemoral bypass per prior notes hold plavix given drop in hgb (see above) (10) Bilateral carotid artery occlusion: Plan: as above (11) Unstageable pressure ulcer of left heel: Plan: XR ankle to assess for OM, no surrounding cellulitis Skin care per nursing protocol (12) Bipolar disorder: Plan: stable depakote, reduced dose of seroquel and wellbutrin (13) Constipation: Plan: bowel protocol ordered: continue senna/docusate Continue Miralax daily is moving her bowel Plan: Disposition: Patient will need group home facility or inpatient rehab. Lives alone in [facility] and is quite debilitated, unable to care for self. Working with case management. still looking for rehab placement-no beds available, multiple referrals out Admission and Anticipated Discharge Date Admission Date: March 20, 2021 Subjective Patient seen on daily rounds today. Vocalizes to c/c. Patient reports increased mucus production in the mornings (which is typical for him). Usually has a lot of coughing and is able to expectorate for sing in the morning and then things improve. He does have a nebulizer that he uses fairly often at home that is currently not being given here. Otherwise, patient denies fevers, chills, chest pain, shortness of breath, abdominal pain, nausea or vomiting. Moving his bowel bladder without difficulty. Nursing voices no complaints or concerns. Review of Systems Review of Systems: All systems reviewed and are unremarkable except as noted in HPI and below Denies fevers, chills, headache, nasal congestion, sore throat, cough, chest pain, shortness of breath, palpitations, orthopnea, PND, abdominal pain, nausea, vomiting, diarrhea, constipation, dysuria, hematuria, frequency, back pain, joint pain or swelling, easy bruising or bleeding, skin lesions or rashes. Physical Exam Physical Exam: General: Resting comfortably in his hospital bed. NAD. HEENT: Head is AT/NC buccal mucosa is moist and pink Neck: No JVD. Negative hepatojugular reflex Cardiac: RRR without M/G/R Lungs: Breathing comfortably and speaking full sentences on ambient air. No accessory muscle use. Coarse rhonchi that clears with coughing. No wheezes or rails Abdomen: Normoactive X4. Soft and nontender in all quadrants. Extremities: No peripheral clubbing cyanosis or edema Neuro: A&O X4 cranial nerves II through XII are grossly intact no focal neuro deficits Skin: No obvious skin lesions or rashes Psych: Appropriate affect pleasant and cooperative Results & Data Results & Data ([facility]) Vital Signs (Past 12 Hours) Vital Signs Temp Pulse Pulse Resp BP Pulse Ox 04/01/21 07:30 78 16 91 04/01/21 07:24 36.5 C 82 22 124/78 96 PG Care Time/CCT Total # of Minutes Spent Total Time Spent with Patient: Total time spent is greater than 50% in coordination of care (as documented) at patient's floor/unit and/or counseling patient: Coding Level of Care Code 62293 Subseq Hosp Care Lvl 1 Diagnoses Fall W19.XXXA Encounter type: initial encounter Anemia D64.9 Hypotension I95.9 CKD (chronic kidney disease) stage 2, GFR 60-89 ml/min N18.2 Chronic hypoxemic respiratory failure J96.11 COPD (chronic obstructive pulmonary disease) with chronic bronchitis J44.9 History of lung cancer Z85.118 Recurrent left pleural effusion J90 Peripheral arterial disease I73.9 Bilateral carotid artery occlusion I65.23 Unstageable pressure ulcer of left heel L89.620 Bipolar disorder F31.9 Most recent bipolar episode type: most recent episode unspecified type Constipation K59.00 (1) Fall Encounter type: initial encounter Qualified Code(s): W19.XXXA - Unspecified fall, initial encounter (2) Bipolar disorder Most recent bipolar episode type: most recent episode unspecified type
[2021-04-01] MEDS: QUEtiapine FUMARATE 25 MG TABLET PO SCH (20:04)
[2021-04-01] MEDS: ONDANSETRON INJ 2 MG/ML 2 ML VIAL IV PRN (20:15)
[2021-04-02] MEDS: ALBUT/IPRATROP 3MG/0.5MG NEB 3 ML VIAL NEB SCH (07:37)
[2021-04-02] MEDS: UMECLIDINIUM/VILANTEROL 62.5/25MCG 7 PUFFS/INHALER INH SCH (08:55)
[2021-04-02] MEDS: FLUTICASONE FUROATE 100MCG 14 PUFFS/INHALER INH SCH (08:55)
[2021-04-02] MEDS: NYSTATIN OINT 15 GM TUBE EXT SCH ×2 (08:56→20:00)
[2021-04-02] MEDS: MIDODRINE HCL 2.5 MG TAB PO SCH ×3 (08:56→17:13)
[2021-04-02] MEDS: ATORVASTATIN 40 MG TAB PO SCH (08:57)
[2021-04-02] MEDS: FERROUS GLUCONATE 324 MG TAB PO SCH ×2 (08:57→17:13)
[2021-04-02] MEDS: FOLIC ACID 1 MG TAB PO SCH (08:57)
[2021-04-02] MEDS: FINASTERIDE 5 MG TAB PO SCH (08:58)
[2021-04-02] MEDS: ASCORBIC ACID 500 MG TAB PO SCH ×2 (08:58→20:01)
[2021-04-02] MEDS: DIVALPROEX DELAY RELEASE 250 MG TABEC PO SCH ×2 (08:58→20:01)
[2021-04-02] MEDS: CYANOCOBALAMIN 500 MCG TABLET (VITAMIN B-12) PO SCH (08:58)
[2021-04-02] MEDS: CHOLECALCIFEROL 1,000 UNITS 25 MCG TAB PO SCH (08:59)
[2021-04-02] MEDS: PANTOprazole 40 MG TAB PO SCH (08:59)
[2021-04-02] MEDS: buPROPion HCl 100 MG TABLET PO SCH (08:59)
[2021-04-02] MEDS: DOCUSATE SODIUM/SENNA 50/8.6MG TAB PO SCH (09:11)
[2021-04-02] MEDS: POLYETHYLENE (MIRALAX) 17 GM PACK PO SCH (09:11)
[2021-04-02] MEDS: ACETAMINOPHEN 500 MG TAB PO PRN (13:21)
--- NOTE | 2021-04-02 14:43 | Hospitalist Progress Note ---
Date of Service April 02, 2021 Assessment & Plan (1) Fall: Plan: Suspect the patient's falls are multifactorial: generalized deconditioning, profound orthostatic hypotension BP dropped to 70s systolic with PT eval on 03/18 and was symptomatic. Dropped to the 50s systolic on 03/24 with lightheadedness Hgb has been like a yo-yo (7.3 - 10.1 - 8.7 - 10.4)-- all without intervention (see below) Orthostatic vital signs are now negative with changes made as outlined below: Reduced Seroquel from 50mg to 12.5mg given orthostasis added midodrine metoprolol stopped (BP/HR stable) Pt is much more conversant, alert and awake since orthostasis is resolved He has frequent falls at home and uses a wheelchair but does stand and pivot to get in PT/OT evaluations completed and recommending inpatient rehab versus SNF--> case mgmt on board (2) Anemia: Plan: hgb somehow was 7.3 on arrival -- up to 10.1 without intervention/no transfusion- back down to 8.7 (asymptomatic) and now 10.4. this is quite strange and I do not have an explanation for this. There is been no shift in fluids. ? lab error??? Did have a W/U and Seen by established stock manager/oncologist-- started on Ferrous sulfate/folic acid and B12 lovenox held (was on board for DVT prophylaxis) but no obvious bleeding. 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 on 03/31-- plavix held given that drop in Hgb. continue to hold this for now patient on PPI labs will need followed upon D/C (3) Hypotension: Plan: with profound orthostasis now resolved as above Discontinued metoprolol -added midodrine 2.5mg po tid for severe orthostasis and lowered Seroquel dose as above (4) CKD (chronic kidney disease) stage 2, GFR 60-89 ml/min: Plan: Renal function appears to be at baseline in this patient, continue to monitor periodically (5) Chronic hypoxemic respiratory failure: Plan: chronic. No acute issues (6) COPD (chronic obstructive pulmonary disease) with chronic bronchitis: Plan: Patient with a very history of COPD, still smoking despite lung cancer diagnosis ? reoccurrence of non-small cell lung CA on imaging Trelegy (ICS/AC/LABA) as an outpatient We will substitute Anoro Ellipta (AC/LABA) and Arnuity Ellipta (ICS) while inpatient Oxygenating well on room air Supplemental oxygen as needed to maintain SaO2 between 88 and 92% pulmonology consulted-- appreciate recommendations. 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 Morin's input given asymptomatic status- no intervention. Was tapped in the past. f/u as outpt with PULM (9) Peripheral arterial disease: Plan: Patient should be on antiplatelet/statin, started Plavix and statin History of aortofemoral bypass per prior notes hold plavix given drop in hgb (see above)--> but again, seems likely to be a lab error. (10) Bilateral carotid artery occlusion: Plan: as above (11) Unstageable pressure ulcer of left heel: Plan: XR ankle to assess for OM, no surrounding cellulitis Skin care per nursing protocol (12) Bipolar disorder: Plan: stable depakote, reduced dose of seroquel and wellbutrin (13) Constipation: Plan: bowel protocol ordered on board: Last BM 03/31 continue senna/docusate Continue Miralax daily Plan: Disposition: Patient will need senior care facility or inpatient rehab. Lives alone in [facility] and is quite debilitated, unable to care for self. Working with case management. still looking for rehab placement-no beds available, multiple referrals out Medically stable xdays Admission and Anticipated Discharge Date Admission Date: March 20, 2021 Subjective Patient seen on daily rounds today. Becoming frustrated that he still sitting in the hospital. Frustrated that he has a roommate and that his room doesn't have a shower for him. Does not want to be here any longer but is aware that therapy is recommending rehab/placement. He denies fevers, chills, chest pain, shortness of breath, abdominal pain, nausea or vomiting. Moving his bowel and bladder without difficulty. Nursing voices no complaints or concerns. Review of Systems Review of Systems: All systems reviewed and are unremarkable except as noted in HPI and below Denies fevers, chills, headache, nasal congestion, sore throat, cough, chest pain, shortness of breath, palpitations, orthopnea, PND, abdominal pain, nausea, vomiting, diarrhea, constipation, dysuria, hematuria, frequency, back pain, joint pain or swelling, easy bruising or bleeding, skin lesions or rashes. Physical Exam Physical Exam: General: Resting comfortably in his hospital bed. Withdrawn today. During exam, continues to pull the blankets up and over his head and "wants to be left alone". Cardiac:[RRR] Lungs: Speaking comfortably on ambient air. No accessory muscle use. Diminished breath sounds throughout. Scattered rhonchi that clears with coughing Abdomen:[Normoactive X4.][Soft and nontender in all quadrants.] Extremities: [No peripheral clubbing cyanosis or edema] Psych: Very withdrawn today. Easily frustrated/agitated. Limited cooperation Results & Data Results & Data ([facility]) Vital Signs (Past 12 Hours) Vital Signs Temp Pulse Resp BP Pulse Ox 04/02/21 11:33 36.7 C 80 22 108/71 95 04/02/21 07:38 36.4 C L 75 20 109/73 91 04/02/21 07:37 72 17 93 Laboratory Results No lab data today PG Care Time/CCT Total # of Minutes Spent Total Time Spent with Patient: Total time spent is greater than 50% in coordination of care (as documented) at patient's floor/unit and/or counseling patient: Coding Level of Care Code 75561 Subseq Hosp Care Lvl 1 Diagnoses Fall W19.XXXA Encounter type: initial encounter Anemia D64.9 Hypotension I95.9 CKD (chronic kidney disease) stage 2, GFR 60-89 ml/min N18.2 Chronic hypoxemic respiratory failure J96.11 COPD (chronic obstructive pulmonary disease) with chronic bronchitis J44.9 History of lung cancer Z85.118 Recurrent left pleural effusion J90 Peripheral arterial disease I73.9 Bilateral carotid artery occlusion I65.23 Unstageable pressure ulcer of left heel L89.620 Bipolar disorder F31.9 Most recent bipolar episode type: most recent episode unspecified type Constipation K59.00 (1) Fall Encounter type: initial encounter Qualified Code(s): W19.XXXA - Unspecified fall, initial encounter (2) Bipolar disorder Most recent bipolar episode type: most recent episode unspecified type
[2021-04-02] MEDS ORDERED: NEOMYCIN/POLYMYXIN/DEXAMETHA OP SOLN 5 ML BTL OP SCH (18:00)
[2021-04-02] MEDS: NEOMYCIN/POLYMYXIN/HYDROCORT OPH SUSP 7.5 ML BTL OP SCH (20:00)
[2021-04-02] MEDS: QUEtiapine FUMARATE 25 MG TABLET PO SCH (20:01)
[2021-04-02] MEDS: ONDANSETRON INJ 2 MG/ML 2 ML VIAL IV PRN (20:27)
[2021-04-03] MEDS: NEOMYCIN/POLYMYXIN/HYDROCORT OPH SUSP 7.5 ML BTL OP SCH ×4 (02:51→21:00)
[2021-04-03] MEDS: ALBUT/IPRATROP 3MG/0.5MG NEB 3 ML VIAL NEB SCH (07:28)
[2021-04-03] MEDS: FERROUS GLUCONATE 324 MG TAB PO SCH ×2 (08:25→17:54)
[2021-04-03] MEDS: ASCORBIC ACID 500 MG TAB PO SCH ×2 (08:25→21:14)
[2021-04-03] MEDS: DIVALPROEX DELAY RELEASE 250 MG TABEC PO SCH ×2 (08:25→21:14)
[2021-04-03] MEDS: CHOLECALCIFEROL 1,000 UNITS 25 MCG TAB PO SCH (08:25)
[2021-04-03] MEDS: FOLIC ACID 1 MG TAB PO SCH (08:26)
[2021-04-03] MEDS: FINASTERIDE 5 MG TAB PO SCH (08:26)
[2021-04-03] MEDS: ATORVASTATIN 40 MG TAB PO SCH (08:26)
[2021-04-03] MEDS: CYANOCOBALAMIN 500 MCG TABLET (VITAMIN B-12) PO SCH (08:26)
[2021-04-03] MEDS: buPROPion HCl 100 MG TABLET PO SCH (08:26)
[2021-04-03] MEDS: PANTOprazole 40 MG TAB PO SCH (08:26)
[2021-04-03] MEDS: MIDODRINE HCL 2.5 MG TAB PO SCH ×3 (08:27→17:54)
[2021-04-03] MEDS: NYSTATIN OINT 15 GM TUBE EXT SCH ×2 (08:27→21:20)
[2021-04-03] MEDS: POLYETHYLENE (MIRALAX) 17 GM PACK PO SCH (08:45)
[2021-04-03] MEDS: DOCUSATE SODIUM/SENNA 50/8.6MG TAB PO SCH (08:45)
[2021-04-03] MEDS: UMECLIDINIUM/VILANTEROL 62.5/25MCG 7 PUFFS/INHALER INH SCH (09:33)
[2021-04-03] MEDS: FLUTICASONE FUROATE 100MCG 14 PUFFS/INHALER INH SCH (09:33)
--- NOTE | 2021-04-03 14:40 | Hospitalist Progress Note ---
Date of Service April 03, 2021 Assessment & Plan (1) Fall: Plan: Suspect the patient's falls are multifactorial: generalized deconditioning, profound orthostatic hypotension BP dropped to 70s systolic with PT eval on 03/18 and was symptomatic. Dropped to the 50s systolic on 03/24 with lightheadedness Hgb has been like a yo-yo (7.3 - 10.1 - 8.7 - 10.4)-- all without intervention (see below) Orthostatic vital signs are now negative with changes made as outlined below: Reduced Seroquel from 50mg to 12.5mg given orthostasis added midodrine metoprolol stopped (BP/HR stable) Pt is much more conversant, alert and awake since orthostasis is resolved He has frequent falls at home and uses a wheelchair but does stand and pivot to get in PT/OT evaluations completed and recommending inpatient rehab versus SNF--> case mgmt on board but no beds and proving to be difficult (2) Anemia: Plan: hgb somehow was 7.3 on arrival -- up to 10.1 without intervention/no transfusion- back down to 8.7 (asymptomatic) and now 10.4. this is quite strange and I do not have an explanation for this. There is been no shift in fluids. ? lab error??? Did have a W/U and Seen by established strategic planning consultant/oncologist-- started on Ferrous sulfate/folic acid and B12 lovenox held (was on board for DVT prophylaxis) but no obvious bleeding. 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 on 03/31-- plavix held given that drop in Hgb. continue to hold this for now patient on PPI labs will need followed upon D/C (and occasionally while he remains in house depending on how long patient is here) (3) Hypotension: Plan: with profound orthostasis now resolved as above Discontinued metoprolol -added midodrine 2.5mg po tid for severe orthostasis and lowered Seroquel dose as above (4) CKD (chronic kidney disease) stage 2, GFR 60-89 ml/min: Plan: Renal function appears to be at baseline in this patient, continue to monitor periodically (5) Chronic hypoxemic respiratory failure: Plan: chronic. No acute issues (6) COPD (chronic obstructive pulmonary disease) with chronic bronchitis: Plan: Patient with a very history of COPD, still smoking despite lung cancer diagnosis ? reoccurrence of non-small cell lung CA on imaging Trelegy (ICS/AC/LABA) as an outpatient We will substitute Anoro Ellipta (AC/LABA) and Arnuity Ellipta (ICS) while inpatient Oxygenating well on room air Supplemental oxygen as needed to maintain SaO2 between 88 and 92% pulmonology consulted-- appreciate recommendations. Continue to follow upon D/C neb treatments as prior to hospitalization (7) History of lung cancer: Plan: Hematology/oncology consulted -will brain picker again as an outpatient on 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 Morin's input given asymptomatic status- no intervention. Was tapped in the past. f/u as outpt with PULM (9) Peripheral arterial disease: Plan: Patient should be on antiplatelet/statin, started Plavix and statin History of aortofemoral bypass per prior notes hold plavix given drop in hgb (see above)--> but again, seems likely to be a lab error. (10) Bilateral carotid artery occlusion: Plan: as above (11) Unstageable pressure ulcer of left heel: Plan: XR ankle to assess for OM, no surrounding cellulitis Skin care per nursing protocol (12) Bipolar disorder: Plan: stable depakote, reduced dose of seroquel and wellbutrin (13) Constipation: Plan: bowel protocol ordered on board: Last BM 03/31 continue senna/docusate Continue Miralax daily Plan: Disposition: Patient will need long-term facility or inpatient rehab. Lives alone in [facility] and is quite debilitated, unable to care for self. Working with case management. still looking for rehab placement-no beds available, multiple referrals out Medically stable xdays Admission and Anticipated Discharge Date Admission Date: March 20, 2021 Subjective Patient seen on daily rounds today. He is more cooperative and pleasant than he was yesterday. He is aware that he is awaiting placement and that placement issues are out of our control. He denies fevers, chills, chest pain, shortness of breath, abdominal pain, nausea or vomiting. Was started on eyedrops yesterday for some irritation of the right eye consistent with blepharitis. This has seemed to improve. Review of Systems Review of Systems: All systems reviewed and are unremarkable except as noted in HPI and below Denies fevers, chills, headache, nasal congestion, sore throat, cough, chest pain, shortness of breath, palpitations, orthopnea, PND, abdominal pain, nausea, vomiting, diarrhea, constipation, dysuria, hematuria, frequency, back pain, joint pain or swelling, easy bruising or bleeding, skin lesions or rashes. Physical Exam Physical Exam: General: Resting comfortably in his hospital bed. NAD. HEENT: Head is AT/NC buccal mucosa is moist and pink Neck: No JVD. Negative hepatojugular reflex Cardiac: RRR without M/G/R Lungs: Breathing comfortably and speaking full sentences on ambient air. No accessory muscle use. Coarse rhonchi that clears with coughing. No wheezes or rails Abdomen: Normoactive X4. Soft and nontender in all quadrants. Extremities: No peripheral clubbing cyanosis or edema Neuro: A&O X4 cranial nerves II through XII are grossly intact no focal neuro deficits Skin: No obvious skin lesions or rashes Psych: Appropriate affect pleasant and cooperative Results & Data Results & Data ([facility]) Vital Signs (Past 12 Hours) Vital Signs Temp Pulse Pulse Resp BP BP Pulse Ox 04/03/21 11:43 77 110/72 04/03/21 07:30 36.6 C 72 20 86/56 L 96 04/03/21 07:29 71 16 98 Laboratory Results no lab data PG Care Time/CCT Total # of Minutes Spent Total Time Spent with Patient: Total time spent is greater than 50% in coordination of care (as documented) at patient's floor/unit and/or counseling patient: [place] [address] Subseq Hosp Care Lvl 1 Patient Type Established Diagnoses Fall W19.XXXA Encounter type: initial encounter Anemia D64.9 Hypotension I95.9 CKD (chronic kidney disease) stage 2, GFR 60-89 ml/min N18.2 Chronic hypoxemic respiratory failure J96.11 COPD (chronic obstructive pulmonary disease) with chronic bronchitis J44.9 History of lung cancer Z85.118 Recurrent left pleural effusion J90 Peripheral arterial disease I73.9 Bilateral carotid artery occlusion I65.23 Unstageable pressure ulcer of left heel L89.620 Bipolar disorder F31.9 Most recent bipolar episode type: most recent episode unspecified type Constipation K59.00 (1) Fall Encounter type: initial encounter Qualified Code(s): W19.XXXA - Unspecified fall, initial encounter (2) Bipolar disorder Most recent bipolar episode type: most recent episode unspecified type
[2021-04-03] MEDS: QUEtiapine FUMARATE 25 MG TABLET PO SCH (21:15)
[2021-04-04] MEDS: NEOMYCIN/POLYMYXIN/HYDROCORT OPH SUSP 7.5 ML BTL OP SCH ×4 (02:17→20:37)
[2021-04-04] MEDS: MIDODRINE HCL 2.5 MG TAB PO SCH ×3 (08:07→17:28)
[2021-04-04] MEDS: UMECLIDINIUM/VILANTEROL 62.5/25MCG 7 PUFFS/INHALER INH SCH (09:19)
[2021-04-04] MEDS: FLUTICASONE FUROATE 100MCG 14 PUFFS/INHALER INH SCH (09:19)
[2021-04-04] MEDS: ASCORBIC ACID 500 MG TAB PO SCH ×2 (09:21→20:37)
[2021-04-04] MEDS: PANTOprazole 40 MG TAB PO SCH (09:21)
[2021-04-04] MEDS: FERROUS GLUCONATE 324 MG TAB PO SCH ×2 (09:21→17:28)
[2021-04-04] MEDS: FOLIC ACID 1 MG TAB PO SCH (09:21)
[2021-04-04] MEDS: buPROPion HCl 100 MG TABLET PO SCH (09:21)
[2021-04-04] MEDS: CHOLECALCIFEROL 1,000 UNITS 25 MCG TAB PO SCH (09:21)
[2021-04-04] MEDS: ATORVASTATIN 40 MG TAB PO SCH (09:21)
[2021-04-04] MEDS: FINASTERIDE 5 MG TAB PO SCH (09:22)
[2021-04-04] MEDS: CYANOCOBALAMIN 500 MCG TABLET (VITAMIN B-12) PO SCH (09:22)
[2021-04-04] MEDS: DIVALPROEX DELAY RELEASE 250 MG TABEC PO SCH ×2 (09:22→20:37)
[2021-04-04] MEDS: NYSTATIN OINT 15 GM TUBE EXT SCH ×2 (09:24→20:38)
[2021-04-04] MEDS: POLYETHYLENE (MIRALAX) 17 GM PACK PO SCH (09:27)
[2021-04-04] MEDS: DOCUSATE SODIUM/SENNA 50/8.6MG TAB PO SCH (09:27)
--- NOTE | 2021-04-04 17:36 | Hospitalist Progress Note ---
Date of Service April 04, 2021 Assessment & Plan (1) Fall: Plan: Suspect the patient's falls are multifactorial: generalized deconditioning, profound orthostatic hypotension BP dropped to 70s systolic with PT eval on 03/18 and was symptomatic. Dropped to the 50s systolic on 03/24 with lightheadedness Hgb has been like a yo-yo (7.3 - 10.1 - 8.7 - 10.4)-- all without intervention (see below) Orthostatic vital signs are now negative with changes made as outlined below: Reduced Seroquel from 50mg to 12.5mg but now having increased irritability. Will increase to 25 mg added midodrine metoprolol stopped (BP/HR stable) Pt is much more conversant, alert and awake since orthostasis is resolved- is easily agitated but cooperative He has frequent falls at home and uses a wheelchair but does stand and pivot to get in PT/OT evaluations completed and recommending inpatient rehab versus SNF--> case mgmt on board but no beds and proving to be difficult [facility] out [facility]), [facility] (reviewing), [place] (no call back), [facility] (no beds), [facility]. case mgmt on board and diligently working at this (2) Anemia: Plan: hgb somehow was 7.3 on arrival -- up to 10.1 without intervention/no transfusion- back down to 8.7 (asymptomatic) and now 10.4. this is quite strange and I do not have an explanation for this. There is been no shift in fluids. ? lab error??? Did have a W/U and Seen by established blender machine operator/oncologist-- started on Ferrous sulfate/folic acid and B12 lovenox held (was on board for DVT prophylaxis) but no obvious bleeding. 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 on 03/31-- plavix held given that drop in Hgb. continue to hold this for now patient on PPI FU CBC in the am to trend labs will need followed upon D/C (and occasionally while he remains in house depending on how long patient is here) (3) Hypotension: Plan: with profound orthostasis now resolved as above Discontinued metoprolol -added midodrine 2.5mg po tid for severe orthostasis and lowered Seroquel dose as above (4) CKD (chronic kidney disease) stage 2, GFR 60-89 ml/min: Plan: Renal function appears to be at baseline in this patient, continue to monitor periodically (5) Chronic hypoxemic respiratory failure: Plan: chronic. No acute issues (6) COPD (chronic obstructive pulmonary disease) with chronic bronchitis: Plan: Patient with a very history of COPD, still smoking despite lung cancer diagnosis ? reoccurrence of non-small cell lung CA on imaging Trelegy (ICS/AC/LABA) as an outpatient We will substitute Anoro Ellipta (AC/LABA) and Arnuity Ellipta (ICS) while inpatient Oxygenating well on room air Supplemental oxygen as needed to maintain SaO2 between 88 and 92% pulmonology consulted-- appreciate recommendations. Continue to follow upon D/C neb treatments as prior to hospitalization (7) History of lung cancer: Plan: Hematology/oncology consulted -will hop picker again as an outpatient on 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 Morin's input given asymptomatic status- no intervention. Was tapped in the past. f/u as outpt with PULM (9) Peripheral arterial disease: Plan: Patient should be on antiplatelet/statin, started Plavix and statin History of aortofemoral bypass per prior notes hold plavix given drop in hgb (see above)--> but again, seems likely to be a lab error. (10) Bilateral carotid artery occlusion: Plan: as above (11) Unstageable pressure ulcer of left heel: Plan: XR ankle to assess for OM, no surrounding cellulitis Skin care per nursing protocol (12) Bipolar disorder: Plan: stable depakote, reduced dose of seroquel and wellbutrin (13) Constipation: Plan: bowel protocol ordered on board: Last BM 03/31 continue senna/docusate Continue Miralax daily Plan: Disposition: Patient will need [facility] or inpatient rehab. Lives alone in [facility] and is quite debilitated, unable to care for self. Working with case management. still looking for rehab placement-no beds available, multiple referrals out Medically stable xdays sister updated on 04/03 Admission and Anticipated Discharge Date Admission Date: March 20, 2021 Subjective Patient seen on daily rounds today. Overall vocalizes no significant complaints or concerns. Still frustrated over his extended hospital stay awaiting placement Denies fevers, chills, chest pain, shortness of breath, abdominal pain, nausea or vomiting. Review of Systems Review of Systems: All systems reviewed and are unremarkable except as noted in HPI and below Denies fevers, chills, headache, nasal congestion, sore throat, cough, chest pain, shortness of breath, palpitations, orthopnea, PND, abdominal pain, nausea, vomiting, diarrhea, constipation, dysuria, hematuria, frequency, back pain, joint pain or swelling, easy bruising or bleeding, skin lesions or rashes. Physical Exam Physical Exam: General: Resting comfortably in his hospital bed. NAD. HEENT: Head is AT/NC buccal mucosa is moist and pink Neck: No JVD. Negative hepatojugular reflex Cardiac: RRR without M/G/R Lungs: Breathing comfortably and speaking full sentences on ambient air. No accessory muscle use. Coarse rhonchi that clears with coughing. No wheezes or rails Abdomen: Normoactive X4. Soft and nontender in all quadrants. Extremities: No peripheral clubbing cyanosis or edema Neuro: A&O X4 cranial nerves II through XII are grossly intact no focal neuro deficits Skin: No obvious skin lesions or rashes Psych: Appropriate affect pleasant and cooperative Results & Data Results & Data ([facility]) Vital Signs (Past 12 Hours) Vital Signs Temp Pulse Resp BP BP Pulse Ox 04/04/21 14:50 36.3 C L 93 H 18 156/90 H 98 04/04/21 07:21 36.5 C 75 16 103/68 97 Laboratory Results No lab data PG Care Time/CCT Total # of Minutes Spent Total Time Spent with Patient: Total time spent is greater than 50% in coordination of care (as documented) at patient's floor/unit and/or counseling patient: Coding Level of Care Code 74800 Subseq Hosp Care Lvl 2 Diagnoses Fall W19.XXXA Encounter type: initial encounter Anemia D64.9 Hypotension I95.9 CKD (chronic kidney disease) stage 2, GFR 60-89 ml/min N18.2 Chronic hypoxemic respiratory failure J96.11 COPD (chronic obstructive pulmonary disease) with chronic bronchitis J44.9 History of lung cancer Z85.118 Recurrent left pleural effusion J90 Peripheral arterial disease I73.9 Bilateral carotid artery occlusion I65.23 Unstageable pressure ulcer of left heel L89.620 Bipolar disorder F31.9 Most recent bipolar episode type: most recent episode unspecified type Constipation K59.00 (1) Fall Encounter type: initial encounter Qualified Code(s): W19.XXXA - Unspecified fall, initial encounter (2) Bipolar disorder Most recent bipolar episode type: most recent episode unspecified type
[2021-04-04] MEDS: QUEtiapine FUMARATE 25 MG TABLET PO SCH (20:37)
[2021-04-05] MEDS: NEOMYCIN/POLYMYXIN/HYDROCORT OPH SUSP 7.5 ML BTL OP SCH ×4 (01:37→20:17)
[2021-04-05] MEDS: DOCUSATE SODIUM 100 MG CAP PO PRN (05:38)
[2021-04-05 06:18] LABS: Hematocrit (blood only) 33.2 % (42-52); Hemoglobin 10.7 g/dL (14.0-18.0); Mean Corpuscular Hemoglobin 25.6 pg (25-34); Mean Corpuscular Hgb Conc 32.2 g/dL (32-36); Mean Corpuscular Volume 79.4 fL (80-100); Mean Platelet Volume 9.7 fL (7.4-10.4); Platelet Count 252 K/uL (130-400); RDW Coefficient of Variation 20.7 % (11.5-14.5); RDW Standard Deviation 60.3 fL (36.4-46.3); Red Blood Count 4.18 M/uL (4.7-6.1); White Blood Count 6.04 K/uL (4.8-10.8)
[2021-04-05] MEDS: MIDODRINE HCL 2.5 MG TAB PO SCH ×3 (09:00→17:22)
[2021-04-05] MEDS: FERROUS GLUCONATE 324 MG TAB PO SCH ×2 (09:00→17:22)
[2021-04-05] MEDS: UMECLIDINIUM/VILANTEROL 62.5/25MCG 7 PUFFS/INHALER INH SCH (09:01)
[2021-04-05] MEDS: DIVALPROEX DELAY RELEASE 250 MG TABEC PO SCH ×2 (09:02→20:17)
[2021-04-05] MEDS: FLUTICASONE FUROATE 100MCG 14 PUFFS/INHALER INH SCH (09:02)
[2021-04-05] MEDS: FINASTERIDE 5 MG TAB PO SCH (09:04)
[2021-04-05] MEDS: buPROPion HCl 100 MG TABLET PO SCH (09:04)
[2021-04-05] MEDS: CHOLECALCIFEROL 1,000 UNITS 25 MCG TAB PO SCH (09:04)
[2021-04-05] MEDS: NYSTATIN OINT 15 GM TUBE EXT SCH ×2 (09:04→20:17)
[2021-04-05] MEDS: PANTOprazole 40 MG TAB PO SCH (09:04)
[2021-04-05] MEDS: ASCORBIC ACID 500 MG TAB PO SCH ×2 (09:05→20:16)
[2021-04-05] MEDS: FOLIC ACID 1 MG TAB PO SCH (09:05)
[2021-04-05] MEDS: CYANOCOBALAMIN 500 MCG TABLET (VITAMIN B-12) PO SCH (09:05)
[2021-04-05] MEDS: ATORVASTATIN 40 MG TAB PO SCH (09:06)
[2021-04-05] MEDS: POLYETHYLENE (MIRALAX) 17 GM PACK PO SCH (09:09)
[2021-04-05] MEDS: DOCUSATE SODIUM/SENNA 50/8.6MG TAB PO SCH (09:09)
--- NOTE | 2021-04-05 17:54 | Hospitalist Progress Note ---
Date of Service April 05, 2021 Assessment & Plan (1) Fall: Plan: Suspect the patient's falls are multifactorial: generalized deconditioning, profound orthostatic hypotension BP dropped to 70s systolic with PT eval on 03/18 and was symptomatic. Dropped to the 50s systolic on 03/24 with lightheadedness Hgb has been like a yo-yo (7.3 - 10.1 - 8.7 - 10.4)-- all without intervention (see below) Reduced Seroquel from 50mg to 12.5mg but subsequently increased back to 25mg given irritability and agitation. pt much more pleasant. added midodrine. still having occassional orthostasis. Will increase to 5mg tid and further titrate if needed metoprolol stopped (BP/HR stable) He has frequent falls at home and uses a wheelchair but does stand and pivot to get in PT/OT evaluations completed and recommending inpatient rehab versus SNF--> case mgmt on board but no beds and proving to be difficult referrals out to: [facility] (no beds), [facility] (reviewing), [place] (no call back), [facility] (no beds), [facility]. case mgmt on board and diligently working at this (2) Anemia: Plan: hgb somehow was 7.3 on arrival -- up to 10.1 without intervention/no transfusion- has yo-yo'ed between 8-10. this is quite strange and I do not have an explanation for this. There is been no shift in fluids. ? lab error??? Did have a W/U and Seen by established vaccine key customer leader/oncologist-- started on Ferrous sulfate/folic acid and B12 lovenox held (was on board for DVT prophylaxis) but no obvious bleeding. 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 on 03/31-- plavix held given that drop in Hgb. continue to hold this for now patient on PPI FU CBC in the am to trend labs will need followed upon D/C (and occasionally while he remains in house depending on how long patient is here) (3) Hypotension: Plan: was stable for some time with addition of midodrine but now with occassional orthostasis again Discontinued metoprolol increase miodrine to 5mg may need to stop avodart (4) CKD (chronic kidney disease) stage 2, GFR 60-89 ml/min: Plan: Renal function appears to be at baseline in this patient, continue to monitor periodically (5) Chronic hypoxemic respiratory failure: Plan: chronic. No acute issues (6) COPD (chronic obstructive pulmonary disease) with chronic bronchitis: Plan: Patient with a very history of COPD, still smoking despite lung cancer diagnosis ? reoccurrence of non-small cell lung CA on imaging Trelegy (ICS/AC/LABA) as an outpatient We will substitute Anoro Ellipta (AC/LABA) and Arnuity Ellipta (ICS) while inpatient Oxygenating well on room air Supplemental oxygen as needed to maintain SaO2 between 88 and 92% pulmonology consulted-- appreciate recommendations. 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 Morin's input given asymptomatic status- no intervention. Was tapped in the past. f/u as outpt with PULM (9) Peripheral arterial disease: Plan: Patient should be on antiplatelet/statin, started Plavix and statin History of aortofemoral bypass per prior notes hold plavix given drop in hgb (see above)--> but again, seems likely to be a lab error. (10) Bilateral carotid artery occlusion: Plan: as above (11) Unstageable pressure ulcer of left heel: Plan: XR ankle to assess for OM, no surrounding cellulitis Skin care per nursing protocol (12) Bipolar disorder: Plan: stable depakote, reduced dose of seroquel and wellbutrin (13) Constipation: Plan: bowel protocol ordered on board continue senna/docusate Continue Miralax daily Plan: Disposition: Patient will need long-term facility or inpatient rehab. Lives alone in [facility] and is quite debilitated, unable to care for self. Working with case management. still looking for rehab placement-no beds available, multiple referrals out Medically stable xdays sister updated on 04/03 Admission and Anticipated Discharge Date Admission Date: March 20, 2021 Subjective Patient seen on daily rounds today. Patient has since had his Seroquel increased given agitation/irritability. Has been very pleasant today per the nurse. Is still having occasional hypotensive episodes. Was not having anything signif icant until this afternoon when it did drop to 87/58 when up with therapy--but patient not symptomatic. He has been laying in bed with this. Review of Systems Review of Systems: All systems reviewed and are unremarkable except as noted in HPI and below Denies fevers, chills, headache, nasal congestion, sore throat, cough, chest pain, shortness of breath, palpitations, orthopnea, PND, abdominal pain, nausea, vomiting, diarrhea, constipation, dysuria, hematuria, frequency, back pain, joint pain or swelling, easy bruising or bleeding, skin lesions or rashes. Physical Exam Physical Exam: General: Resting comfortably in his hospital bed. More engaging. NAD. HEENT: Head is AT/NC buccal mucosa is moist and pink Neck: No JVD. Negative hepatojugular reflex Cardiac: RRR without M/G/R Lungs: CTA without W/R/R Abdomen: Normoactive X4. Soft and nontender in all quadrants. Extremities: No peripheral clubbing cyanosis or edema Neuro: A&O X4 cranial nerves II through XII are grossly intact no focal neuro de ficits Skin: No obvious skin lesions or rashes Psych: More pleasant and engaging Results & Data Results & Data ([facility]) Vital Signs (Past 12 Hours) Vital Signs Temp Pulse Resp BP BP Pulse Ox 04/05/21 15:05 36.4 C L 104 H 18 87/58 L 95 04/05/21 07:44 36.6 C 72 16 93/60 L 95 Laboratory Results 04/05/21 05:14 03/31/21 06:26 PG Care Time/CCT Total # of Minutes Spent Total Time Spent with Patient: Total time spent is greater than 50% in coordination of care (as documented) at patient's floor/unit and/or counseling patient: Coding Level of Care Code 49643 Subseq Hosp Care Lvl 2 Diagnoses Fall W19.XXXA Encounter type: initial encounter Anemia D64.9 Hypotension I95.9 CKD (chronic kidney disease) stage 2, GFR 60-89 ml/min N18.2 Chronic hypoxemic respiratory failure J96.11 COPD (chronic obstructive pulmonary disease) with chronic bronchitis J44.9 History of lung cancer Z85.118 Recurrent left pleural effusion J90 Peripheral arterial disease I73.9 Bilateral carotid artery occlusion I65.23 Unstageable pressure ulcer of left heel L89.620 Bipolar disorder F31.9 Most recent bipolar episode type: most recent episode unspecified type Constipation K59.00 (1) Fall Encounter type: initial encounter Qualified Code(s): W19.XXXA - Unspecified fall, initial encounter (2) Bipolar disorder Most recent bipolar episode type: most recent episode unspecified type
[2021-04-05] MEDS: QUEtiapine FUMARATE 25 MG TABLET PO SCH (20:16)
[2021-04-06] MEDS: NEOMYCIN/POLYMYXIN/HYDROCORT OPH SUSP 7.5 ML BTL OP SCH ×4 (01:38→19:57)
[2021-04-06] MEDS: DIVALPROEX DELAY RELEASE 250 MG TABEC PO SCH ×2 (07:42→19:57)
[2021-04-06] MEDS: FERROUS GLUCONATE 324 MG TAB PO SCH ×2 (07:42→17:23)
[2021-04-06] MEDS: buPROPion HCl 100 MG TABLET PO SCH (07:43)
[2021-04-06] MEDS: PANTOprazole 40 MG TAB PO SCH (07:43)
[2021-04-06] MEDS: CYANOCOBALAMIN 500 MCG TABLET (VITAMIN B-12) PO SCH (07:43)
[2021-04-06] MEDS: FINASTERIDE 5 MG TAB PO SCH (07:43)
[2021-04-06] MEDS: MIDODRINE HCL 2.5 MG TAB PO SCH ×3 (07:44→17:23)
[2021-04-06] MEDS: ATORVASTATIN 40 MG TAB PO SCH (07:44)
[2021-04-06] MEDS: CHOLECALCIFEROL 1,000 UNITS 25 MCG TAB PO SCH (07:44)
[2021-04-06] MEDS: FOLIC ACID 1 MG TAB PO SCH (07:45)
[2021-04-06] MEDS: ASCORBIC ACID 500 MG TAB PO SCH ×2 (07:45→19:56)
[2021-04-06] MEDS: FLUTICASONE FUROATE 100MCG 14 PUFFS/INHALER INH SCH (07:46)
[2021-04-06] MEDS: NYSTATIN OINT 15 GM TUBE EXT SCH ×2 (07:46→19:58)
[2021-04-06] MEDS: UMECLIDINIUM/VILANTEROL 62.5/25MCG 7 PUFFS/INHALER INH SCH (07:46)
[2021-04-06] MEDS: DOCUSATE SODIUM/SENNA 50/8.6MG TAB PO SCH (07:56)
[2021-04-06] MEDS: POLYETHYLENE (MIRALAX) 17 GM PACK PO SCH (07:56)
[2021-04-06] MEDS: QUEtiapine FUMARATE 25 MG TABLET PO SCH (19:56)
--- NOTE | 2021-04-06 23:37 | Hospitalist Progress Note ---
Date of Service April 06, 2021 Assessment & Plan (1) Fall: Plan: Suspect the patient's falls are multifactorial: generalized deconditioning, profound orthostatic hypotension BP dropped to 70s systolic with PT eval on 03/18 and was symptomatic. Dropped to the 50s systolic on 03/24 with lightheadedness Hgb has been like a yo-yo (7.3 - 10.1 - 8.7 - 10.4)-- all without intervention (see below) Reduced Seroquel from 50mg to 12.5mg but subsequently increased back to 25mg given irritability and agitation. pt much more pleasant on higher dose of Seroquel added midodrine 2.5 mg 3 times daily and was still having occasional orthostasis-have now increased to 5mg tid metoprolol stopped (BP/HR stable) He has frequent falls at home and uses a wheelchair but does stand and pivot to get in PT/OT evaluations completed and recommending inpatient rehab versus SNF--> case mgmt on board but no beds and proving to be difficult referrals out to: [facility] (no beds), [facility] (reviewing), [facility] (no call back), [facility] (no beds), [facility]. case mgmt on board and diligently working at this (2) Anemia: Plan: hgb somehow was 7.3 on arrival -- up to 10.1 without intervention/no transfusion- has yo-yo'ed between 8-10. this is quite strange and I do not have an explanation for this. There is been no shift in fluids. Most likely margin of error in the lab Did have a W/U and Seen by established senior application programmer/oncologist-- started on Ferrous sulfate/folic acid and B12 lovenox held (was on board for DVT prophylaxis) but no obvious bleeding. 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 on 03/31-- plavix held given that drop in Hgb. Okay to restart Plavix patient on PPI FU CBC periodically labs will need followed upon D/C (and occasionally while he remains in house depending on how long patient is here) (3) Hypotension: Plan: was stable for some time with addition of midodrine but then with occasional orthostasis again Discontinued metoprolol increased midodrine to 5mg and seems to be improved Finasteride would not affect blood pressure and does not need to be discontinued (4) CKD (chronic kidney disease) stage 2, GFR 60-89 ml/min: Plan: Renal function appears to be at baseline in this patient, continue to monitor periodically (5) Chronic hypoxemic respiratory failure: Plan: chronic. No acute issues (6) COPD (chronic obstructive pulmonary disease) with chronic bronchitis: Plan: Patient with a very history of COPD, still smoking despite lung cancer diagnosis ? reoccurrence of non-small cell lung CA on imaging Trelegy (ICS/AC/LABA) as an outpatient We will substitute Anoro Ellipta (AC/LABA) and Arnuity Ellipta (ICS) while inpatient Oxygenating well on room air Supplemental oxygen as needed to maintain SaO2 between 88 and 92% pulmonology consulted-- appreciate recommendations. 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 Morin's input given asymptomatic status- no intervention. Was tapped in the past. f/u as outpt with PULM (9) Peripheral arterial disease: Plan: Patient should be on antiplatelet/statin, started Plavix and statin History of aortofemoral bypass per prior notes (10) Bilateral carotid artery occlusion: Plan: as above, Plavix and statin (11) Unstageable pressure ulcer of left heel: Plan: XR ankle to assess for OM, no surrounding cellulitis Skin care per nursing protocol (12) Bipolar disorder: Plan: stable depakote, reduced dose of seroquel and wellbutrin (13) Constipation: Plan: bowel protocol ordered on board continue senna/docusate Continue Miralax daily (14) Dysphagia: Plan: Had complaint of feeling like food is getting stuck with swallowing on 04/06 Continue Protonix He would not be able to withstand a barium swallow as he cannot stand up for more than a few seconds to a minute at a time Continue to follow Encouraged him to take small sips of fluid after each bite of food Continue minced and moist diet Plan: Disposition: Patient will need [facility] or inpatient rehab. Lives alone in [facility] and is quite debilitated, unable to care for self. Working with case management. still looking for rehab placement-no beds available, multiple referrals out Medically stable for over a week now sister updated on 04/03 Admission and Anticipated Discharge Date Admission Date: March 20, 2021 Subjective Patient reports that occasionally he feels like he is not able to get his food swallowed properly. He denies any heartburn or indigestion. Other than that he has no complaints. No dizziness Review of Systems Review of Systems: All systems reviewed & are unremarkable except as noted in HPI & below Physical Exam Constitutional: WD/WN, vitals as above Neck: trachea midline, no thyromegaly Respiratory: normal respiratory effort Auscultation: + diminished lung sounds (at bases); no wheezes Cardiovascular: RRR, no murmur, no edema Chest (Breasts): Chest: normal inspection of chest Gastrointestinal (Abdomen): normal bowel sounds, soft, nontender, no hepatosplenomegaly Musculoskeletal: Extremities: extremities normal to inspection; no cyanosis and no clubbing Skin: no rashes, warm and dry Neurologic: moves all extremities and awake; no focal motor deficits Psychiatric: Orientation: alert, oriented to person and cooperative Lymphatic: no lymphedema Results & Data Results & Data ([facility]) Vital Signs (Past 12 Hours) Vital Signs Temp Pulse Resp BP Pulse Ox 04/06/21 22:44 36.7 C 81 16 103/67 98 04/06/21 16:58 36.5 C 80 18 129/80 98 PG Care Time/CCT Total # of Minutes Spent Total Time Spent with Patient: Total time spent is greater than 50% in coordination of care (as documented) at patient's floor/unit and/or counseling patient: Coding Level of Care Code 95198 Subseq Hosp Care Lvl 1 Diagnoses Fall W19.XXXA Encounter type: initial encounter Anemia D64.9 Hypotension I95.9 CKD (chronic kidney disease) stage 2, GFR 60-89 ml/min N18.2 Chronic hypoxemic respiratory failure J96.11 COPD (chronic obstructive pulmonary disease) with chronic bronchitis J44.9 History of lung cancer Z85.118 Recurrent left pleural effusion J90 Peripheral arterial disease I73.9 Bilateral carotid artery occlusion I65.23 Unstageable pressure ulcer of left heel L89.620 Bipolar disorder F31.9 Most recent bipolar episode type: most recent episode unspecified type Constipation K59.00 Dysphagia R13.10 (1) Fall Encounter type: initial encounter Qualified Code(s): W19.XXXA - Unspecified fall, initial encounter (2) Bipolar disorder Most recent bipolar episode type: most recent episode unspecified type
[2021-04-07] MEDS: NEOMYCIN/POLYMYXIN/HYDROCORT OPH SUSP 7.5 ML BTL OP SCH ×4 (02:06→20:02)
[2021-04-07] MEDS: CYANOCOBALAMIN 500 MCG TABLET (VITAMIN B-12) PO SCH (08:11)
[2021-04-07] MEDS: ATORVASTATIN 40 MG TAB PO SCH (08:11)
[2021-04-07] MEDS: PANTOprazole 40 MG TAB PO SCH (08:11)
[2021-04-07] MEDS: CLOPIDOGREL BISULFATE 75 MG TAB PO SCH (08:11)
[2021-04-07] MEDS: DIVALPROEX DELAY RELEASE 250 MG TABEC PO SCH ×2 (08:11→20:03)
[2021-04-07] MEDS: buPROPion HCl 100 MG TABLET PO SCH (08:12)
[2021-04-07] MEDS: FINASTERIDE 5 MG TAB PO SCH (08:12)
[2021-04-07] MEDS: FERROUS GLUCONATE 324 MG TAB PO SCH ×2 (08:12→17:26)
[2021-04-07] MEDS: FOLIC ACID 1 MG TAB PO SCH (08:12)
[2021-04-07] MEDS: CHOLECALCIFEROL 1,000 UNITS 25 MCG TAB PO SCH (08:12)
[2021-04-07] MEDS: ASCORBIC ACID 500 MG TAB PO SCH ×2 (08:12→20:03)
[2021-04-07] MEDS: MIDODRINE HCL 2.5 MG TAB PO SCH ×3 (08:12→17:27)
[2021-04-07] MEDS: NYSTATIN OINT 15 GM TUBE EXT SCH ×2 (08:13→20:04)
[2021-04-07] MEDS: UMECLIDINIUM/VILANTEROL 62.5/25MCG 7 PUFFS/INHALER INH SCH (08:13)
[2021-04-07] MEDS: FLUTICASONE FUROATE 100MCG 14 PUFFS/INHALER INH SCH (08:13)
[2021-04-07] MEDS: DOCUSATE SODIUM/SENNA 50/8.6MG TAB PO SCH (08:56)
[2021-04-07] MEDS: DOCUSATE SODIUM 100 MG CAP PO PRN (08:56)
[2021-04-07] MEDS: POLYETHYLENE (MIRALAX) 17 GM PACK PO SCH (08:56)
--- NOTE | 2021-04-07 17:44 | Hospitalist Progress Note ---
Date of Service April 07, 2021 Assessment & Plan (1) Fall: Plan: Suspect the patient's falls are multifactorial: generalized deconditioning, profound orthostatic hypotension BP dropped to 70s systolic with PT eval on 03/18 and was symptomatic. Dropped to the 50s systolic on 03/24 with lightheadedness Hgb has been like a yo-yo (7.3 - 10.1 - 8.7 - 10.4)-- all without intervention (see below) Reduced Seroquel from 50mg to 12.5mg but subsequently increased back to 25mg given irritability and agitation. pt much more pleasant on higher dose of Seroquel added midodrine 2.5 mg 3 times daily and was still having occasional orthostasis-have now increased to 5mg tid metoprolol stopped (BP/HR stable) He has frequent falls at home and uses a wheelchair but does stand and pivot to get in PT/OT evaluations completed and recommending inpatient rehab versus SNF--> case mgmt on board but no beds and proving to be difficult referrals out to: [facility] (no beds), [facility] (reviewing), [place] (no call back), [facility] (no beds), [facility]. case mgmt on board and diligently working at this (2) Anemia: Plan: hgb somehow was 7.3 on arrival -- up to 10.1 without intervention/no transfusion- has yo-yo'ed between 8-10. this is quite strange and I do not have an explanation for this. There is been no shift in fluids. Most likely margin of error in the lab Did have a W/U and Seen by established green lumber grader/oncologist-- started on Ferrous sulfate/folic acid and B12 lovenox held (was on board for DVT prophylaxis) but no obvious bleeding. 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 on 03/31-- plavix held given that drop in Hgb. Okay to restart Plavix patient on PPI FU CBC periodically labs will need followed upon D/C (and occasionally while he remains in house depending on how long patient is here) (3) Hypotension: Plan: was stable for some time with addition of midodrine but then with occasional orthostasis again Discontinued metoprolol increased midodrine to 5mg and seems to be improved Finasteride would not affect blood pressure and does not need to be discontinued (4) CKD (chronic kidney disease) stage 2, GFR 60-89 ml/min: Plan: Renal function appears to be at baseline in this patient, continue to monitor periodically (5) Chronic hypoxemic respiratory failure: Plan: chronic. No acute issues (6) COPD (chronic obstructive pulmonary disease) with chronic bronchitis: Plan: Patient with a very history of COPD, still smoking despite lung cancer diagnosis ? reoccurrence of non-small cell lung CA on imaging Trelegy (ICS/AC/LABA) as an outpatient We will substitute Anoro Ellipta (AC/LABA) and Arnuity Ellipta (ICS) while inpatient Oxygenating well on room air Supplemental oxygen as needed to maintain SaO2 between 88 and 92% pulmonology consulted-- appreciate recommendations. 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 Morin's input given asymptomatic status- no intervention. Was tapped in the past. f/u as outpt with PULM (9) Peripheral arterial disease: Plan: Patient should be on antiplatelet/statin, started Plavix and statin History of aortofemoral bypass per prior notes (10) Bilateral carotid artery occlusion: Plan: as above, Plavix and statin (11) Unstageable pressure ulcer of left heel: Plan: XR ankle to assess for OM, no surrounding cellulitis Skin care per nursing protocol (12) Bipolar disorder: Plan: stable depakote, reduced dose of seroquel and wellbutrin (13) Constipation: Plan: bowel protocol ordered on board continue senna/docusate Continue Miralax daily (14) Dysphagia: Plan: Had complaint of feeling like food is getting stuck with swallowing on 04/06 Continue Protonix He would not be able to withstand a barium swallow as he cannot stand up for more than a few seconds to a minute at a time Continue to follow Encouraged him to take small sips of fluid after each bite of food Continue minced and moist diet Plan: Disposition: Patient will need retirement facility or inpatient rehab. Lives alone in [facility] and is quite debilitated, unable to care for self. Working with case management. still looking for rehab placement-no beds available, multiple referrals out Medically stable for over a week now sister updated on 04/03 Admission and Anticipated Discharge Date Admission Date: March 20, 2021 Subjective No complaints, is eating and drinking, was out of bed to chair today, denies dizziness. He states "you are the doctor whose name is on the board" as he points to the white board in the room. Review of Systems Review of Systems: All systems reviewed & are unremarkable except as noted in HPI & below Physical Exam Constitutional: WD/WN, vitals as above Neck: trachea midline, no thyromegaly Respiratory: normal respiratory effort Auscultation: + diminished lung sounds (at bases) and + wheezes (A few scattered wheezes bilateral) Cardiovascular: RRR, no murmur, no edema Chest (Breasts): Chest: normal inspection of chest Gastrointestinal (Abdomen): normal bowel sounds, soft, nontender, no hepatosplenomegaly Musculoskeletal: Extremities: extremities normal to inspection; no cyanosis and no clubbing Skin: no rashes, warm and dry Neurologic: moves all extremities and awake; no focal motor deficits Psychiatric: Orientation: alert, oriented to person and cooperative Lymphatic: no lymphedema Results & Data Results & Data ([facility]) Vital Signs (Past 12 Hours) Vital Signs Temp Pulse Resp BP BP Pulse Ox 04/07/21 16:10 36.7 C 85 18 102/65 95 04/07/21 08:16 36.6 C 75 17 93/60 L 92 PG Care Time/CCT Total # of Minutes Spent Total Time Spent with Patient: Total time spent is greater than 50% in coordination of care (as documented) at patient's floor/unit and/or counseling patient: Coding Level of Care Code 52473 Subseq Hosp Care Lvl 1 Diagnoses Fall W19.XXXA Encounter type: initial encounter Anemia D64.9 Hypotension I95.9 CKD (chronic kidney disease) stage 2, GFR 60-89 ml/min N18.2 Chronic hypoxemic respiratory failure J96.11 COPD (chronic obstructive pulmonary disease) with chronic bronchitis J44.9 History of lung cancer Z85.118 Recurrent left pleural effusion J90 Peripheral arterial disease I73.9 Bilateral carotid artery occlusion I65.23 Unstageable pressure ulcer of left heel L89.620 Bipolar disorder F31.9 Most recent bipolar episode type: most recent episode unspecified type Constipation K59.00 Dysphagia R13.10 (1) Bipolar disorder Most recent bipolar episode type: most recent episode unspecified type (2) Fall Encounter type: initial encounter Qualified Code(s): W19.XXXA - Unspecified fall, initial encounter
[2021-04-07] MEDS: QUEtiapine FUMARATE 25 MG TABLET PO SCH (20:04)
[2021-04-08] MEDS: NEOMYCIN/POLYMYXIN/HYDROCORT OPH SUSP 7.5 ML BTL OP SCH ×3 (02:18→15:22)
[2021-04-08] MEDS: FERROUS GLUCONATE 324 MG TAB PO SCH ×2 (08:10→16:20)
[2021-04-08] MEDS: MIDODRINE HCL 2.5 MG TAB PO SCH ×3 (08:10→16:20)
[2021-04-08] MEDS: DIVALPROEX DELAY RELEASE 250 MG TABEC PO SCH ×2 (09:32→20:25)
[2021-04-08] MEDS: CHOLECALCIFEROL 1,000 UNITS 25 MCG TAB PO SCH (09:33)
[2021-04-08] MEDS: FOLIC ACID 1 MG TAB PO SCH (09:33)
[2021-04-08] MEDS: ATORVASTATIN 40 MG TAB PO SCH (09:33)
[2021-04-08] MEDS: CLOPIDOGREL BISULFATE 75 MG TAB PO SCH (09:33)
[2021-04-08] MEDS: NYSTATIN OINT 15 GM TUBE EXT SCH ×2 (09:33→20:26)
[2021-04-08] MEDS: FLUTICASONE FUROATE 100MCG 14 PUFFS/INHALER INH SCH (09:34)
[2021-04-08] MEDS: UMECLIDINIUM/VILANTEROL 62.5/25MCG 7 PUFFS/INHALER INH SCH (09:34)
[2021-04-08] MEDS: FINASTERIDE 5 MG TAB PO SCH (09:34)
[2021-04-08] MEDS: buPROPion HCl 100 MG TABLET PO SCH (09:34)
[2021-04-08] MEDS: PANTOprazole 40 MG TAB PO SCH (09:34)
[2021-04-08] MEDS: ASCORBIC ACID 500 MG TAB PO SCH ×2 (09:34→20:24)
[2021-04-08] MEDS: CYANOCOBALAMIN 500 MCG TABLET (VITAMIN B-12) PO SCH (09:34)
[2021-04-08] MEDS: DOCUSATE SODIUM/SENNA 50/8.6MG TAB PO SCH (09:37)
[2021-04-08] MEDS: POLYETHYLENE (MIRALAX) 17 GM PACK PO SCH (09:37)
--- NOTE | 2021-04-08 16:50 | Hospitalist Progress Note ---
Date of Service April 08, 2021 Assessment & Plan (1) Fall: Plan: Suspect the patient's falls are multifactorial: generalized deconditioning, profound orthostatic hypotension BP dropped to 70s systolic with PT eval on 03/18 and was symptomatic. Dropped to the 50s systolic on 03/24 with lightheadedness Hgb initially low but then improved (7.3 - 10.1 - 8.7 - 10.4)-- all without intervention (see below) Reduced Seroquel from 50mg to 12.5mg but subsequently increased back to 25mg given irritability and agitation. Pt much more pleasant on higher dose of Seroquel added midodrine 2.5 mg 3 times daily and was still having occasional orthostasis-have now increased to 5mg tid metoprolol stopped (BP/HR stable) He has frequent falls at home and uses a wheelchair but does stand and pivot to get in PT/OT evaluations completed and recommending inpatient rehab versus SNF--> case mgmt on board but no beds and proving to be difficult referrals out to: [facility] (no beds), [facility] (reviewing), [place] (no call back), [facility] (no beds), [facility]. case mgmt on board and diligently working at this (2) Anemia: Plan: hgb somehow was 7.3 on arrival -- up to 10.1 without intervention/no transfusion- has yo-yo'ed between 8-10. this is quite strange and I do not have an explanation for this. There is been no shift in fluids. Most likely margin of error in the lab Did have a W/U and Seen by established hedge fund accountant/oncologist-- started on Ferrous sulfate/folic acid and B12 lovenox held (was on board for DVT prophylaxis) but no obvious bleeding. 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 on 03/31-- plavix held given that drop in Hgb. Okay to restart Plavix patient on PPI FU CBC periodically labs will need followed upon D/C (and occasionally while he remains in house depending on how long patient is here) (3) Hypotension: Plan: was stable for some time with addition of midodrine but then with occasional orthostasis again Discontinued metoprolol increased midodrine to 5mg and seems to be improved Finasteride would not affect blood pressure and does not need to be discontinued (4) CKD (chronic kidney disease) stage 2, GFR 60-89 ml/min: Plan: Renal function appears to be at baseline in this patient, continue to monitor periodically (5) Chronic hypoxemic respiratory failure: Plan: chronic. No acute issues (6) COPD (chronic obstructive pulmonary disease) with chronic bronchitis: Plan: Patient with a very history of COPD, still smoking despite lung cancer diagnosis ? reoccurrence of non-small cell lung CA on imaging Trelegy (ICS/AC/LABA) as an outpatient We will substitute Anoro Ellipta (AC/LABA) and Arnuity Ellipta (ICS) while inpatient Oxygenating well on room air Supplemental oxygen as needed to maintain SaO2 between 88 and 92%-has not needed O2 in a long time pulmonology consulted-- appreciate recommendations. 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 Morin's input given asymptomatic status- no intervention. Was tapped in the past. f/u as outpt with PULM (9) Peripheral arterial disease: Plan: Patient should be on antiplatelet/statin, started Plavix and statin History of aortofemoral bypass per prior notes (10) Bilateral carotid artery occlusion: Plan: as above, Plavix and statin (11) Unstageable pressure ulcer of left heel: Plan: XR ankle to assess for OM, no surrounding cellulitis Skin care per nursing protocol (12) Bipolar disorder: Plan: stable continue depakote, reduced dose of seroquel and wellbutrin (13) Constipation: Plan: bowel protocol ordered on board had a BM 04/07 continue senna/docusate Continue Miralax daily (14) Dysphagia: Plan: Had complaint of feeling like food is getting stuck with swallowing on 04/06 Continue Protonix He would not be able to withstand a barium swallow as he cannot stand up for more than a few seconds to a minute at a time Continue to follow Encouraged him to take small sips of fluid after each bite of food Continue minced and moist diet Plan: Disposition: Patient will need jail facility or inpatient rehab. Lives alone in [facility] and is quite debilitated, unable to care for self. Working with case management. still looking for rehab placement-no beds available, multiple referrals out Medically stable for discharge for almost 2 weeks sister updated on 04/03 Admission and Anticipated Discharge Date Admission Date: March 20, 2021 Subjective Pt has no complaints. Feels sometimes his pills gets stuck and has a dry mouth. Otherwise wants to know how long it usually takes to get to a rehab facility and I told him that it hardly ever takes this long. No CP or SOB Review of Systems Review of Systems: All systems reviewed & are unremarkable except as noted in HPI & below Physical Exam Constitutional: WD/WN, vitals as above Neck: trachea midline, no thyromegaly Respiratory: normal respiratory effort Auscultation: + diminished lung sounds (at bases) and + wheezes (A few scattered wheezes bilateral) Cardiovascular: RRR, no murmur, no edema Chest (Breasts): Chest: normal inspection of chest Gastrointestinal (Abdomen): normal bowel sounds, soft, nontender, no hepatosplenomegaly Musculoskeletal: Extremities: extremities normal to inspection; no cyanosis and no clubbing Skin: no rashes, warm and dry Neurologic: moves all extremities and awake; no focal motor deficits Psychiatric: Orientation: alert, oriented to person and cooperative Lymphatic: no lymphedema Results & Data Results & Data ([facility]) Vital Signs (Past 12 Hours) Vital Signs Temp Pulse Resp BP Pulse Ox 04/08/21 15:59 36.4 C L 92 H 17 128/79 100 04/08/21 07:44 36.4 C L 67 19 95/65 L 95 PG Care Time/CCT Total # of Minutes Spent Total Time Spent with Patient: Total time spent is greater than 50% in coordination of care (as documented) at patient's floor/unit and/or counseling patient: Coding Level of Care Code 23552 Subseq Hosp Care Lvl 1 Diagnoses Fall W19.XXXA Encounter type: initial encounter Anemia D64.9 Hypotension I95.9 CKD (chronic kidney disease) stage 2, GFR 60-89 ml/min N18.2 Chronic hypoxemic respiratory failure J96.11 COPD (chronic obstructive pulmonary disease) with chronic bronchitis J44.9 History of lung cancer Z85.118 Recurrent left pleural effusion J90 Peripheral arterial disease I73.9 Bilateral carotid artery occlusion I65.23 Unstageable pressure ulcer of left heel L89.620 Bipolar disorder F31.9 Most recent bipolar episode type: most recent episode unspecified type Constipation K59.00 Dysphagia R13.10 (1) Fall Encounter type: initial encounter Qualified Code(s): W19.XXXA - Unspecified fall, initial encounter (2) Bipolar disorder Most recent bipolar episode type: most recent episode unspecified type
[2021-04-08] MEDS: QUEtiapine FUMARATE 25 MG TABLET PO SCH (20:27)
[2021-04-08] MEDS: ALBUT/IPRATROP 3MG/0.5MG NEB 3 ML VIAL NEB PRN (21:01)
[2021-04-09] MEDS: ONDANSETRON INJ 2 MG/ML 2 ML VIAL IV PRN ×2 (07:45→20:30)
[2021-04-09] MEDS: ACETAMINOPHEN 500 MG TAB PO PRN (07:45)
[2021-04-09] MEDS: FERROUS GLUCONATE 324 MG TAB PO SCH ×2 (07:47→17:32)
[2021-04-09] MEDS: MIDODRINE HCL 2.5 MG TAB PO SCH ×3 (07:47→17:32)
[2021-04-09] MEDS: DIVALPROEX DELAY RELEASE 250 MG TABEC PO SCH ×2 (09:42→20:26)
[2021-04-09] MEDS: ATORVASTATIN 40 MG TAB PO SCH (09:42)
[2021-04-09] MEDS: CLOPIDOGREL BISULFATE 75 MG TAB PO SCH ×2 (09:42→11:19)
[2021-04-09] MEDS: CHOLECALCIFEROL 1,000 UNITS 25 MCG TAB PO SCH (09:42)
[2021-04-09] MEDS: buPROPion HCl 100 MG TABLET PO SCH ×2 (09:42→11:19)
[2021-04-09] MEDS: PANTOprazole 40 MG TAB PO SCH (09:43)
[2021-04-09] MEDS: NYSTATIN OINT 15 GM TUBE EXT SCH ×2 (09:43→20:27)
[2021-04-09] MEDS: FINASTERIDE 5 MG TAB PO SCH (09:43)
[2021-04-09] MEDS: FOLIC ACID 1 MG TAB PO SCH ×2 (09:43→11:19)
[2021-04-09] MEDS: CYANOCOBALAMIN 500 MCG TABLET (VITAMIN B-12) PO SCH ×2 (09:43→11:19)
[2021-04-09] MEDS: FLUTICASONE FUROATE 100MCG 14 PUFFS/INHALER INH SCH (09:44)
[2021-04-09] MEDS: UMECLIDINIUM/VILANTEROL 62.5/25MCG 7 PUFFS/INHALER INH SCH (09:44)
[2021-04-09] MEDS: ASCORBIC ACID 500 MG TAB PO SCH ×3 (09:46→20:26)
[2021-04-09] MEDS: POLYETHYLENE (MIRALAX) 17 GM PACK PO SCH (09:56)
[2021-04-09] MEDS: DOCUSATE SODIUM/SENNA 50/8.6MG TAB PO SCH (09:56)
--- NOTE | 2021-04-09 11:08 | Gastrointestinal Consultation ---
Date of Consultation April 09, 2021 Assessment & Plan (1) Dysphagia: -Protonix 40 mg daily. -EGD tomorrow, Keep NPO after midnight. Supervising Physician Co-Signing Physician Notes Agree with SANDRA Lo as above Abd: Soft, NT, ND, +BS Continue current therapy and supportive care NPO after midnight EGD in AM History of Present Illness Reason for Consultation: Dysphagia Attending Physician: Kim Medina MD History of Present Illness Patient is a 66 yo male currently hospitalized for falls. The patient reports occasional dysphagia. He has a history of esophageal stenosis requiring dilatation in 2017. He reportedly cannot stand long enough for a barium swallow. He takes Omeprazole 20 mg daily. He is on a soft diet currently. He did eat pudding this AM. No pertinent family history. Chest CT does not indicate any overt esophageal masses or lesions. Patient is anemic. H/H is 10.7/33.2. No reported melena or hematochezia. Allergies Allergy/AdvReac Type Severity Reaction Status Date / Time ciprofloxacin Allergy Intermediate RASH Verified 03/17/21 16:31 vancomycin Allergy Intermediate RASH Verified 03/17/21 16:31 sulfamethoxazole Allergy Unknown Unknown Verified 03/17/21 16:31 [From Bactrim] trimethoprim [From Bactrim] Allergy Unknown Unknown Verified 03/17/21 16:31 Home Medications Medication Instructions Recorded Confirmed Type acetaminophen 500 mg capsule 500 mg PO Q6H PRN 02/02/18 03/17/21 History ascorbic acid (vitamin C) 500 mg 500 mg PO BID cap 02/02/18 03/17/21 History capsule cholecalciferol (vitamin D3) 25 1,000 units PO DAILY 04/03/18 03/17/21 History mcg (1,000 unit) capsule ibuprofen 600 mg tablet 600 mg PO Q6H PRN #90 tab 01/08/19 03/17/21 Rx albuterol sulfate 90 mcg/actuation 2 puffs INH QID PRN #18 gm 01/29/19 03/17/21 Rx aerosol inhaler (Ventolin HFA) docusate sodium 100 mg capsule 100 mg PO DAILY PRN cap 01/29/19 03/17/21 History ketoconazole 2 % topical cream 1 applic TOP DAILY #90 g 02/12/20 03/17/21 Rx bupropion HCl 100 mg tablet 100 mg PO DAILY #90 tab 01/05/21 03/17/21 Rx divalproex 250 mg tablet,delayed 250 mg PO HS #90 tab 01/05/21 03/17/21 Rx release fluticasone fur. 100 mcg-umeclid 1 inh INHALATION Q24H #60 ea 01/05/21 03/17/21 Rx 62.5 mcg-vilant 25 mcg inhalat.powder (Trelegy Ellipta) metoprolol succinate 25 mg 25 mg PO DAILY #90 tab 01/28/21 03/17/21 Rx tablet,extended release 24 hr omeprazole 20 mg capsule,delayed 20 mg PO DAILY #90 cap 02/17/21 03/17/21 Rx release quetiapine 50 mg tablet 50 mg PO HS 02/24/21 03/17/21 History dutasteride 0.5 mg capsule 0.5 mg PO DAILY #90 cap 03/03/21 03/17/21 Rx divalproex 500 mg tablet,delayed See Rx Instructions .ROUTE .COMPLEX 03/17/21 03/17/21 History release melatonin 5 mg tablet 5 mg PO HS PRN 03/17/21 03/17/21 History Patient History Medical History Ataxic gait Benign prostate hyperplasia Bilateral carotid artery occlusion PT STATES NO SURGERY Bipolar disorder 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 Esophageal stenosis GERD (gastroesophageal reflux disease) Hepatic steatosis Hiatal hernia History of COVID-19 07/2020 ([facility]) HOSPITALIZED AT [facility] History of lung cancer (01/2016) 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 Homicidal ideation PT DENIES AT PRESENT TIME Hypertension Memory loss Osteomyelitis Peripheral arterial disease Peripheral neuropathy Recurrent left pleural effusion s/p thoracentesis August 2018 Restless leg syndrome Schizoaffective disorder Surgical History H/O foot surgery LEFT HEEL REMOVAL FROM PRESSURE ULCER History of bronchoscopy (01/2016) History of colonoscopy History of herniorrhaphy History of lobectomy of lung LOWER LEFT LUNG S/P peripheral artery angioplasty with stent placement (06/2016) LLE WATER HAULER, 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 S/P thoracentesis (05/2019) L pleural effusion Status post femorofemoral bypass surgery (06/2016) [place] teeth removed Family History Brother Myocardial infarction Father Myocardial infarction Other Cancer Family history non-contributory Lung disease No family history of adverse response to anesthesia Denies family history of Tuberculosis Ovarian cancer Prostate cancer Diabetes Heart disease Allergies Breast cancer Emphysema, unspecified Lung cancer Colorectal cancer Asthma Social History Smoking Status: Current every day smoker Tobacco Type: Cigarettes Age Started Using Tobacco: 10; packs per day: 0.5; Years Smoked: 30; Cigarettes Per Day: 6-8 DAILY; Second Hand Exposure: Yes; Do You Dip or Chew Tobacco: Yes; Tobacco Cessation Education Requested by Patient: No Hx Alcohol Use: Yes Alcohol type: beer Alcohol Intake Frequency: 4 or More x per/Week Alcohol Intake Frequency Comment: mostly daily Hx Substance Use: Yes Prescribed Medications: Marijuana Last Used Substance: Days (ago) Last Used Substance Other:: 3 Preferred Language: Wolof Communication Ability: Effective Visual Impairment: No Limitations Hearing Ability: Normal 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 Beliefs That Will Affect Care: None marital status: single Current Living Situation: Alone current occupational status: disabled How many Children do You have: 2 Other Information That Helps Us Care for You: No Feels Safe at Home: Yes Safety Concerns: Feels Safe At This Time Childhood Exposure to Second-Hand Smoke: Yes Diet Comment: regular caffeine: Yes (coffee 1 pot a day) during the past year weight has: remained stable Dental Care, Regularly: No Physical Activity Frequency: Does not Exercise Seatbelt Use: always Sunscreen Use: No Assistive Devices: Walker Review of Systems Review of Systems: Patient denies complaints other than dysphagia, but does not participate well in my evaluation as he keeps falling back asleep during my visit. Physical Exam Constitutional: not ill appearing Respiratory: normal respiratory effort Cardiovascular: Rate/Rhythm: regular rate Gastrointestinal (Abdomen): Inspection/Auscultation: abdomen normal to inspection Psychiatric: Orientation: alert Results & Data ([facility]) Vital Signs (Past 12 Hours) Vital Signs Temp Pulse Resp BP Pulse Ox 04/09/21 07:35 36.6 C 81 18 106/68 99 PG Care Time/CCT Total # of Minutes Spent Total Time Spent with Patient: Total time spent is greater than 50% in coordination of care (as documented) at patient's floor/unit and/or counseling patient: Coding Level of Care Code 75996 Initial Inpt Care Lvl 3 Diagnoses Dysphagia R13.10
--- NOTE | 2021-04-09 16:35 | Hospitalist Progress Note ---
Date of Service April 09, 2021 Assessment & Plan (1) Fall: Plan: Suspect the patient's falls are multifactorial: generalized deconditioning, profound orthostatic hypotension BP dropped to 70s systolic with PT eval on 03/18 and was symptomatic. Dropped to the 50s systolic on 03/24 with lightheadedness Hgb initially low but then improved (7.3 - 10.1 - 8.7 - 10.4)-- all without intervention (see below) Reduced Seroquel from 50mg to 12.5mg but subsequently increased back to 25mg given irritability and agitation. Pt much more pleasant on higher dose of Seroquel added midodrine 2.5 mg 3 times daily and was still having occasional orthostasis-have now increased to 5mg tid and orthostasis resolved metoprolol stopped (BP/HR stable) He has frequent falls at home and uses a wheelchair but does stand and pivot to get in PT/OT evaluations completed and recommending inpatient rehab versus SNF--> case mgmt on board but no beds and proving to be extremely difficult (2) Anemia: Plan: hgb somehow was 7.3 on arrival -- up to 10.1 without intervention/no transfusion- has yo-yo'ed between 8-10. this is quite strange and I do not have an explanation for this. There is been no shift in fluids. Most likely margin of error in the lab Microcytic Did have a W/U and Seen by established weight trainer/oncologist-- started on Ferrous sulfate/folic acid and B12 lovenox held (was on board for DVT prophylaxis) but no obvious bleeding. 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 on 03/31-- plavix held given that drop in Hgb. Have since restarted Plavix patient on PPI FU CBC periodically labs will need followed upon D/C (and occasionally while he remains in house depending on how long patient is here) -EGD planned for tomorrow due to suspected strictures and dysphagia (3) Hypotension: Plan: was stable for some time with addition of midodrine but then with occasional orthostasis again Discontinued metoprolol increased midodrine to 5mg and seems to be improved Finasteride would not affect blood pressure and does not need to be discontinued (4) CKD (chronic kidney disease) stage 2, GFR 60-89 ml/min: Plan: Renal function appears to be at baseline in this patient, continue to monitor periodically (5) Chronic hypoxemic respiratory failure: Plan: chronic. No acute issues (6) COPD (chronic obstructive pulmonary disease) with chronic bronchitis: Plan: Patient with a very history of COPD, still smoking despite lung cancer diagnosis ? reoccurrence of non-small cell lung CA on imaging Trelegy (ICS/AC/LABA) as an outpatient We will substitute Anoro Ellipta (AC/LABA) and Arnuity Ellipta (ICS) while inpatient Oxygenating well on room air Supplemental oxygen as needed to maintain SaO2 between 88 and 92%-has not needed O2 in a long time pulmonology consulted-- appreciate recommendations. 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 Morin's input given asymptomatic status- no intervention. Was tapped in the past. f/u as outpt with PULM (9) Peripheral arterial disease: Plan: Patient should be on antiplatelet/statin, started Plavix and statin History of aortofemoral bypass per prior notes (10) Bilateral carotid artery occlusion: Plan: as above, Plavix and statin (11) Unstageable pressure ulcer of left heel: Plan: XR ankle to assess for OM, no surrounding cellulitis Skin care per nursing protocol (12) Bipolar disorder: Plan: stable continue depakote, reduced dose of seroquel and wellbutrin (13) Constipation: Plan: bowel protocol ordered on board had a BM 04/07 and again 04/09 continue senna/docusate Continue Miralax daily (14) Dysphagia: Plan: Had complaint of feeling like food is getting stuck with swallowing on 04/06 Has had intermittent episodes of vomiting after taking pills throughout his hospital stay Continue Protonix He would not be able to withstand a barium swallow as he cannot stand up for more than a few seconds to a minute at a time Encouraged him to take small sips of fluid after each bite of food Continue minced and moist diet -has a h/o esophageal strictures requiring dilatation in 2017 -consult GI--> plan for EGD tomorrow Plan: Disposition: Patient will need snf facility or inpatient rehab. Lives alone in [facility] and is quite debilitated, unable to care for self. Working with case management. still looking for rehab placement-no beds available, multiple referrals out Medically stable for discharge for almost 2 weeks sister updated on 04/03 Admission and Anticipated Discharge Date Admission Date: March 20, 2021 Subjective Pt taking a nap when I saw him but woke up and denied problems. He did have some vomiting last evening and again this AM with taking pills. Review of Systems Review of Systems: All systems reviewed & are unremarkable except as noted in HPI & below Physical Exam Constitutional: WD/WN, vitals as above Neck: trachea midline, no thyromegaly Respiratory: normal respiratory effort Auscultation: + diminished lung sounds (at bases) and + wheezes (A few scattered wheezes bilateral) Cardiovascular: RRR, no murmur, no edema Chest (Breasts): Chest: normal inspection of chest Gastrointestinal (Abdomen): normal bowel sounds, soft, nontender, no hepatosplenomegaly Musculoskeletal: Extremities: extremities normal to inspection; no cyanosis and no clubbing Skin: no rashes, warm and dry Neurologic: moves all extremities and awake; no focal motor deficits Psychiatric: Orientation: alert, oriented to person and cooperative Lymphatic: no lymphedema Results & Data Results & Data ([facility]) Vital Signs (Past 12 Hours) Vital Signs Temp Pulse Resp BP Pulse Ox 04/09/21 16:21 36.7 C 79 19 121/73 96 04/09/21 12:03 35.2 C L 81 19 109/68 100 04/09/21 07:35 36.6 C 81 18 106/68 99 PG Care Time/CCT Total # of Minutes Spent Total Time Spent with Patient: Total time spent is greater than 50% in coordination of care (as documented) at patient's floor/unit and/or counseling patient: Coding Level of Care Code 06207 Subseq Hosp Care Lvl 2 Diagnoses Fall W19.XXXA Encounter type: initial encounter Anemia D64.9 Hypotension I95.9 CKD (chronic kidney disease) stage 2, GFR 60-89 ml/min N18.2 Chronic hypoxemic respiratory failure J96.11 COPD (chronic obstructive pulmonary disease) with chronic bronchitis J44.9 History of lung cancer Z85.118 Recurrent left pleural effusion J90 Peripheral arterial disease I73.9 Bilateral carotid artery occlusion I65.23 Unstageable pressure ulcer of left heel L89.620 Bipolar disorder F31.9 Most recent bipolar episode type: most recent episode unspecified type Constipation K59.00 Dysphagia R13.10 (1) Fall Encounter type: initial encounter Qualified Code(s): W19.XXXA - Unspecified fall, initial encounter (2) Bipolar disorder Most recent bipolar episode type: most recent episode unspecified type
[2021-04-09] MEDS: ALBUT/IPRATROP 3MG/0.5MG NEB 3 ML VIAL NEB PRN (17:50)
[2021-04-09] MEDS: QUEtiapine FUMARATE 25 MG TABLET PO SCH (20:26)
[2021-04-10 06:54] LABS: Basophils # (auto) 0.02 K/uL (0-0.2); Basophils % (auto) 0.4 %; Eosinophils # (auto) 0.28 K/uL (0-0.5); Hematocrit (blood only) 28.7 % (42-52); Hemoglobin 9.2 g/dL (14.0-18.0); Immature Granulocytes # (auto) 0.01 K/uL (0.00-0.02); Immature Granulocytes % (auto) 0.2 %; Lymphocytes # (auto) 0.73 K/uL (1.2-3.4); Lymphocytes % (auto) 13.1 %; Mean Corpuscular Hemoglobin 25.6 pg (25-34); Mean Corpuscular Hgb Conc 32.1 g/dL (32-36); Mean Corpuscular Volume 79.7 fL (80-100); Mean Platelet Volume 9.2 fL (7.4-10.4); Monocytes % (auto) 14.4 %; Neutrophils # (auto) 3.72 K/uL (1.4-6.5); Neutrophils % (auto) 66.9 %; Platelet Count 318 K/uL (130-400); RDW Coefficient of Variation 19.8 % (11.5-14.5); RDW Standard Deviation 58.5 fL (36.4-46.3); White Blood Count 5.56 K/uL (4.8-10.8)
[2021-04-10 07:27] LABS: Calcium 9.1 mg/dl (8.5-10.1); Creatinine Clr Calc Pharmacy 95.9 ml/min; Est GFR (African American) 116.7 ml/min; Est GFR (Non-African American) 100.7 ml/min; Potassium 4.1 mmol/L (3.5-5.1)
[2021-04-10] MEDS: DIVALPROEX DELAY RELEASE 250 MG TABEC PO SCH (09:41)
[2021-04-10] MEDS: FERROUS GLUCONATE 324 MG TAB PO SCH (09:41)
[2021-04-10] MEDS: ASCORBIC ACID 500 MG TAB PO SCH ×2 (09:41→20:47)
[2021-04-10] MEDS: ATORVASTATIN 40 MG TAB PO SCH (09:42)
[2021-04-10] MEDS: CHOLECALCIFEROL 1,000 UNITS 25 MCG TAB PO SCH (09:42)
[2021-04-10] MEDS: PANTOprazole 40 MG TAB PO SCH (09:42)
[2021-04-10] MEDS: FOLIC ACID 1 MG TAB PO SCH (09:42)
[2021-04-10] MEDS: CYANOCOBALAMIN 500 MCG TABLET (VITAMIN B-12) PO SCH (09:42)
[2021-04-10] MEDS: buPROPion HCl 100 MG TABLET PO SCH (09:42)
[2021-04-10] MEDS: MIDODRINE HCL 2.5 MG TAB PO SCH ×3 (09:42→17:58)
[2021-04-10] MEDS: FINASTERIDE 5 MG TAB PO SCH (09:42)
[2021-04-10] MEDS: POLYETHYLENE (MIRALAX) 17 GM PACK PO SCH (09:43)
[2021-04-10] MEDS: UMECLIDINIUM/VILANTEROL 62.5/25MCG 7 PUFFS/INHALER INH SCH (09:43)
[2021-04-10] MEDS: FLUTICASONE FUROATE 100MCG 14 PUFFS/INHALER INH SCH (09:43)
[2021-04-10] MEDS: NYSTATIN OINT 15 GM TUBE EXT SCH ×2 (09:44→20:49)
[2021-04-10] MEDS: DOCUSATE SODIUM/SENNA 50/8.6MG TAB PO SCH (09:45)
--- NOTE | 2021-04-10 09:49 | History & Physical Bridge Note ---
Date of Service April 10, 2021 History & Physical Bridge Note I have examined the patient, reviewed the History & Physical and in the interval since the performance of the History & Physical I have noted the following changes of clinical significance: no changes noted Patient is NPO. He denies new symptoms. At the time of my visit he is alert & oriented x 3. He notes that he has not had food since prior to midnight. He is agreeable to proceeding with EGD. Keep NPO & proceed with EGD with Dr. Blake today. Supervising Physician Co-Signing Physician Notes Patient was given pudding to administer medications, and therefore procedure will be cancelled. Consider EGD early next week, versus as outpatient Consider Bedside swallow eval Dr. Jorgensen covering this weekend.
[2021-04-10] MEDS ORDERED: D5W AND LACTATED RINGERS 1,000 ML IV SCH (10:30)
--- NOTE | 2021-04-10 13:27 | Hospitalist Progress Note ---
Date of Service April 10, 2021 Assessment & Plan (1) Fall: Plan: Suspect the patient's falls are multifactorial: generalized deconditioning, profound orthostatic hypotension BP dropped to 70s systolic with PT eval on 03/18 and was symptomatic. Dropped to the 50s systolic on 03/24 with lightheadedness Hgb initially low but then improved (7.3 - 10.1 - 8.7 - 10.4)-- all without intervention (see below) Reduced Seroquel from 50mg to 12.5mg but subsequently increased back to 25mg given irritability and agitation. Pt much more pleasant on higher dose of Seroquel added midodrine 2.5 mg 3 times daily and was still having occasional orthostasis-have now increased to 5mg tid and orthostasis resolved metoprolol stopped (BP/HR stable) He has frequent falls at home and uses a wheelchair but does stand and pivot to get in PT/OT evaluations completed and recommending inpatient rehab versus SNF--> case mgmt on board but no beds and proving to be extremely difficult (2) Anemia: Plan: hgb somehow was 7.3 on arrival -- up to 10.1 without intervention/no transfusion- has yo-yo'ed between 8-10. this is quite strange and I do not have an explanation for this. There is been no shift in fluids. Most likely margin of error in the lab Microcytic Did have a W/U and Seen by established hub bander/oncologist-- started on Ferrous sulfate/folic acid and B12 lovenox held (was on board for DVT prophylaxis) but no obvious bleeding. 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 on 03/31-- plavix held given that drop in Hgb. Have since restarted Plavix patient on PPI Hgb now down slightly to 9.2 labs will need followed upon D/C (and occasionally while he remains in house depending on how long patient is here) -EGD planned for today due to suspected strictures and dysphagia,anemia (3) Hypotension: Plan: was stable for some time with addition of midodrine but then with occasional orthostasis again Discontinued metoprolol increased midodrine to 5mg and seems to be improved Finasteride would not affect blood pressure and does not need to be discontinued (4) Dysphagia: Plan: Had complaint of feeling like food is getting stuck with swallowing on 04/06 Has had intermittent episodes of vomiting after taking pills throughout his hospital stay Continue Protonix He would not be able to withstand a barium swallow as he cannot stand up for more than a few seconds to a minute at a time Encouraged him to take small sips of fluid after each bite of food Continue minced and moist diet but NPO currently for EGD -has a h/o esophageal strictures requiring dilatation in 2017 -consult GI--> plan for EGD today -change bigger pills to liquids (5) CKD (chronic kidney disease) stage 2, GFR 60-89 ml/min: Plan: Renal function appears to be at baseline in this patient, continue to monitor periodically (6) Chronic hypoxemic respiratory failure: Plan: chronic. No acute issues continue O2 prn (7) COPD (chronic obstructive pulmonary disease) with chronic bronchitis: Plan: Patient with a very history of COPD, still smoking despite lung cancer diagnosis ? reoccurrence of non-small cell lung CA on imaging Trelegy (ICS/AC/LABA) as an outpatient We will substitute Anoro Ellipta (AC/LABA) and Arnuity Ellipta (ICS) while inpatient Oxygenating well on room air Supplemental oxygen as needed to maintain SaO2 between 88 and 92%-has not needed O2 in a long time pulmonology consulted-- appreciate recommendations. 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 Morin's input given asymptomatic status- no intervention. Was tapped in the past. f/u as outpt with PULM (10) Hyponatremia: Plan: Na+ today 130, perhaps due to poor hydration orally start maintenance fluids x 1L today especially while NPO for EGD (11) Peripheral arterial disease: Plan: Patient should be on antiplatelet/statin, started Plavix and statin but Plavix on hold today for EGD History of aortofemoral bypass per prior notes (12) Bilateral carotid artery occlusion: Plan: as above, Plavix and statin (13) Unstageable pressure ulcer of left heel: Plan: XR ankle to assess for OM, no surrounding cellulitis Skin care per nursing protocol (14) Bipolar disorder: Plan: stable continue depakote but hcnage to liquid as tabs large and hard to swallow -continue reduced dose of seroquel and wellbutrin (15) Constipation: Plan: bowel protocol ordered on board had a BM 04/07 and again 04/09 continue senna/docusate Continue Miralax daily Plan: Disposition: Patient will need senior care facility or inpatient rehab. Lives alone in [facility] and is quite debilitated, unable to care for self. Working with case management. still looking for rehab placement-no beds available, multiple referrals out Medically stable for discharge for almost 2 weeks sister updated on 04/03 Admission and Anticipated Discharge Date Admission Date: March 20, 2021 Subjective Pt has no complaints. Awaiting EGD. DId vomit some of his pills up today. Review of Systems Review of Systems: All systems reviewed & are unremarkable except as noted in HPI & below Physical Exam Constitutional: WD/WN, vitals as above Neck: trachea midline, no thyromegaly Respiratory: normal respiratory effort Auscultation: + diminished lung sounds (at bases) and + wheezes (A few scattered wheezes bilateral) Cardiovascular: RRR, no murmur, no edema Chest (Breasts): Chest: normal inspection of chest Gastrointestinal (Abdomen): normal bowel sounds, soft, nontender, no hepatosplenomegaly Musculoskeletal: Extremities: extremities normal to inspection; no cyanosis and no clubbing Skin: no rashes, warm and dry Neurologic: moves all extremities and awake; no focal motor deficits Psychiatric: Orientation: alert, oriented to person and cooperative Lymphatic: no lymphedema Results & Data Results & Data ([facility]) Vital Signs (Past 12 Hours) Vital Signs Temp Pulse Resp BP Pulse Ox 04/10/21 11:49 36.7 C 86 18 92/58 L 99 04/10/21 07:58 36.7 C 65 18 103/65 98 Laboratory Results 04/10/21 04/10/21 Range/Units 06:37 06:37 WBC 5.56 (4.8-10.8) K/uL RBC 3.60 L (4.7-6.1) M/uL Hgb 9.2 L (14.0-18.0) g/dL Hct 28.7 L (42-52) % MCV 79.7 L (80-100) fL MCH 25.6 (25-34) pg MCHC 32.1 (32-36) g/dL RDW Std Deviation 58.5 H (36.4-46.3) fL RDW Coeff of Raul 19.8 H (11.5-14.5) % Plt Count 318 (130-400) K/uL MPV 9.2 (7.4-10.4) fL Immature Gran % (Auto) 0.2 % Neut % (Auto) 66.9 % Lymph % (Auto) 13.1 % [place] % (Auto) 14.4 % Eos % (Auto) 5.0 % Baso % (Auto) 0.4 % Neut # (Auto) 3.72 (1.4-6.5) K/uL Lymph # (Auto) 0.73 L (1.2-3.4) K/uL [place] # (Auto) 0.80 H (0.11-0.59) K/uL Eos # (Auto) 0.28 (0-0.5) K/uL Baso # (Auto) 0.02 (0-0.2) K/uL Immature Gran # (Auto) 0.01 (0.00-0.02) K/uL Sodium 130 L (136-145) mmol/L Potassium 4.1 (3.5-5.1) mmol/L Chloride 99 (98-107) mmol/L Carbon Dioxide 25 (21-32) mmol/L Anion Gap 6.0 (3-11) BUN 14 (7-18) mg/dl Creatinine 0.65 (0.6-1.4) mg/dl Est Cr Clr Drug Dosing 95.9 ml/min Est GFR ( Amer) 116.7 ml/min Est GFR (Non-Af Amer) 100.7 ml/min BUN/Creatinine Ratio 22.0 H (10-20) Glucose 83 (70-99) mg/dl Calcium 9.1 (8.5-10.1) mg/dl PG Care Time/CCT Total # of Minutes Spent Total Time Spent with Patient: Total time spent is greater than 50% in coordination of care (as documented) at patient's floor/unit and/or counseling patient: Coding Level of Care Code 92164 Subseq Hosp Care Lvl 2 Diagnoses Fall W19.XXXA Encounter type: initial encounter Anemia D64.9 Hypotension I95.9 CKD (chronic kidney disease) stage 2, GFR 60-89 ml/min N18.2 Chronic hypoxemic respiratory failure J96.11 COPD (chronic obstructive pulmonary disease) with chronic bronchitis J44.9 History of lung cancer Z85.118 Recurrent left pleural effusion J90 Peripheral arterial disease I73.9 Bilateral carotid artery occlusion I65.23 Unstageable pressure ulcer of left heel L89.620 Bipolar disorder F31.9 Most recent bipolar episode type: most recent episode unspecified type Constipation K59.00 Dysphagia R13.10 Hyponatremia E87.1 (1) Fall Encounter type: initial encounter Qualified Code(s): W19.XXXA - Unspecified fall, initial encounter (2) Bipolar disorder Most recent bipolar episode type: most recent episode unspecified type
[2021-04-10] MEDS: FERROUS SULFATE ELIX 220MG/5ML PO SCH (17:58)
[2021-04-10] MEDS: QUEtiapine FUMARATE 25 MG TABLET PO SCH (20:47)
[2021-04-10] MEDS: VALPROIC ACID SOLN 500 MG/10 ML UDC PO SCH (20:48)
[2021-04-11] MEDS: UMECLIDINIUM/VILANTEROL 62.5/25MCG 7 PUFFS/INHALER INH SCH (08:56)
[2021-04-11] MEDS: FLUTICASONE FUROATE 100MCG 14 PUFFS/INHALER INH SCH (08:56)
[2021-04-11] MEDS: NYSTATIN OINT 15 GM TUBE EXT SCH (08:57)
[2021-04-11] MEDS: ATORVASTATIN 40 MG TAB PO SCH (08:57)
[2021-04-11] MEDS: POLYETHYLENE (MIRALAX) 17 GM PACK PO SCH (08:57)
[2021-04-11] MEDS: VALPROIC ACID 50 MG/ML UDP PO SCH (08:57)
[2021-04-11] MEDS: ASCORBIC ACID 500 MG TAB PO SCH (08:57)
[2021-04-11] MEDS: LANSOPRAZOLE 30 MG SOLTAB PO SCH (08:57)
[2021-04-11] MEDS: buPROPion HCl 100 MG TABLET PO SCH (08:58)
[2021-04-11] MEDS: FINASTERIDE 5 MG TAB PO SCH (08:58)
[2021-04-11] MEDS: FOLIC ACID 1 MG TAB PO SCH (08:58)
[2021-04-11] MEDS: CHOLECALCIFEROL 1,000 UNITS 25 MCG TAB PO SCH (08:58)
[2021-04-11] MEDS: CYANOCOBALAMIN 500 MCG TABLET (VITAMIN B-12) PO SCH (08:58)
[2021-04-11] MEDS: MIDODRINE HCL 2.5 MG TAB PO SCH ×3 (08:58→17:54)
[2021-04-11] MEDS: DOCUSATE SODIUM/SENNA 50/8.6MG TAB PO SCH (08:58)
[2021-04-11] MEDS: FERROUS SULFATE ELIX 220MG/5ML PO SCH ×2 (09:46→17:53)
--- NOTE | 2021-04-11 11:34 | Hospitalist Progress Note ---
Date of Service April 11, 2021 Assessment & Plan (1) Fall: Plan: Suspect the patient's falls are multifactorial: generalized deconditioning, profound orthostatic hypotension BP dropped to 70s systolic with PT eval on 03/18 and was symptomatic. Dropped to the 50s systolic on 03/24 with lightheadedness Hgb initially low but then improved (7.3 - 10.1 - 8.7 - 10.4)-- all without intervention (see below) Reduced Seroquel from 50mg to 12.5mg but subsequently increased back to 25mg given irritability and agitation. Pt much more pleasant on higher dose of Seroquel added midodrine 2.5 mg 3 times daily and was still having occasional orthostasis-have now increased to 5mg tid and orthostasis resolved metoprolol stopped (BP/HR stable) He has frequent falls at home and uses a wheelchair but does stand and pivot to get in PT/OT evaluations completed and recommending inpatient rehab versus SNF--> case mgmt on board but no beds and proving to be extremely difficult (2) Anemia: Plan: hgb somehow was 7.3 on arrival -- up to 10.1 without intervention/no transfusion- has yo-yo'ed between 8-10. 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 on 03/31-- plavix held given that drop in Hgb. Have since restarted Plavix except now on hold for EGD patient on PPI Hgb now down slightly to 9.2 labs will need followed upon D/C (and occasionally while he remains in house depending on how long patient is here) -EGD planned for today due to suspected strictures and dysphagia,anemia (3) Hypotension: Plan: was stable for some time with addition of midodrine but then with occasional orthostasis again Discontinued metoprolol increased midodrine to 5mg and seems to be improved Finasteride would not affect blood pressure and does not need to be discontinued (4) Dysphagia: Plan: Had complaint of feeling like food is getting stuck with swallowing on 04/06 Has had intermittent episodes of vomiting after taking pills throughout his hospital stay Continue Protonix He would not be able to withstand a barium swallow as he cannot stand up for more than a few seconds to a minute at a time Encouraged him to take small sips of fluid after each bite of food Continue minced and moist diet but NPO currently for EGD -has a h/o esophageal strictures requiring dilatation in 2017 -consult GI--> plan for EGD --> was supposed to be on Tuesday but got cancelled as he ate some pudding -change bigger pills to liquids -plan for EGD Tuesday -keep on full liquids diet only now (5) CKD (chronic kidney disease) stage 2, GFR 60-89 ml/min: Plan: Renal function appears to be at baseline in this patient, continue to monitor periodically (6) Chronic hypoxemic respiratory failure: Plan: chronic. No acute issues continue O2 prn (7) COPD (chronic obstructive pulmonary disease) with chronic bronchitis: Plan: Patient with a very history of COPD, still smoking despite lung cancer diagnosis ? reoccurrence of non-small cell lung CA on imaging Trelegy (ICS/AC/LABA) as an outpatient We will substitute Anoro Ellipta (AC/LABA) and Arnuity Ellipta (ICS) while inpatient Oxygenating well on room air Supplemental oxygen as needed to maintain SaO2 between 88 and 92%-has not needed O2 in a long time pulmonology consulted-- appreciate recommendations. 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 Morin's input given asymptomatic status- no intervention. Was tapped in the past. f/u as outpt with PULM (10) Hyponatremia: Plan: Na+ 130, perhaps due to poor hydration orally gave maintenance fluids x 1L while NPO for EGD, now stop (11) Peripheral arterial disease: Plan: Patient should be on antiplatelet/statin, started Plavix and statin but Plavix on hold now for EGD History of aortofemoral bypass per prior notes (12) Bilateral carotid artery occlusion: Plan: as above, Plavix and statin (13) Unstageable pressure ulcer of left heel: Plan: XR ankle to assess for OM, no surrounding cellulitis Skin care per nursing protocol (14) Bipolar disorder: Plan: stable continue depakote but changed to liquid as tabs large and hard to swallow -continue reduced dose of seroquel and wellbutrin (15) Constipation: Plan: bowel protocol ordered on board had a BM 04/07 and again 04/09 continue senna/docusate Continue Miralax daily (16) Right shoulder pain: Plan: start Voltaren gel to right shoulder (17) Candidal intertrigo: Plan: change Nystatin ointment to miconazole powder Plan: Disposition: Patient will need retirement facility or inpatient rehab. Lives alone in [facility] and is quite debilitated, unable to care for self. Working with case management. still looking for rehab placement-no beds available, multiple referrals out Medically stable for discharge for almost 2 weeks sister updated on 04/03 Admission and Anticipated Discharge Date Admission Date: March 20, 2021 Subjective Pt feels he is tolerating full liquids diet, RN reports no further vomiting since yesterday. He is moving his bowels. Has complaints of his right shoulder hurting especially when he turns on his right side. Review of Systems Review of Systems: All systems reviewed & are unremarkable except as noted in HPI & below Physical Exam Constitutional: WD/WN, vitals as above Neck: trachea midline, no thyromegaly Respiratory: normal respiratory effort, lungs clear to auscultation normal respiratory effort Auscultation: + diminished lung sounds (at bases) and + wheezes (A few scattered wheezes bilateral) Cardiovascular: RRR, no murmur, no edema Chest (Breasts): Chest: normal inspection of chest Gastrointestinal (Abdomen): normal bowel sounds, soft, nontender, no hepatosplenomegaly Musculoskeletal: Extremities: extremities normal to inspection; no cyanosis and no clubbing +TTP over right subdeltoid bursa, no erythema, pain with ROM but able to fully flex and abduct shoulder Skin: + rash (bilat inguinal erythema) Neurologic: moves all extremities and awake; no focal motor deficits Psychiatric: Orientation: alert, oriented to person and cooperative Lymphatic: no lymphedema Results & Data Results & Data ([facility]) Vital Signs (Past 12 Hours) Vital Signs Temp Pulse Resp BP Pulse Ox 04/11/21 07:06 36.6 C 75 18 101/67 99 PG Care Time/CCT Total # of Minutes Spent Total Time Spent with Patient: Total time spent is greater than 50% in coordination of care (as documented) at patient's floor/unit and/or counseling patient: Coding Level of Care Code 49705 Subseq Hosp Care Lvl 2 Diagnoses Fall W19.XXXA Encounter type: initial encounter Anemia D64.9 Hypotension I95.9 Dysphagia R13.10 CKD (chronic kidney disease) stage 2, GFR 60-89 ml/min N18.2 Chronic hypoxemic respiratory failure J96.11 COPD (chronic obstructive pulmonary disease) with chronic bronchitis J44.9 History of lung cancer Z85.118 Recurrent left pleural effusion J90 Hyponatremia E87.1 Peripheral arterial disease I73.9 Bilateral carotid artery occlusion I65.23 Unstageable pressure ulcer of left heel L89.620 Bipolar disorder F31.9 Most recent bipolar episode type: most recent episode unspecified type Constipation K59.00 Right shoulder pain M25.511 Candidal intertrigo B37.2 (1) Fall Encounter type: initial encounter Qualified Code(s): W19.XXXA - Unspecified fall, initial encounter (2) Bipolar disorder Most recent bipolar episode type: most recent episode unspecified type
[2021-04-11] MEDS: MICONAZOLE NITRATE POWDER 43 GM EXT SCH ×2 (12:37→21:14)
[2021-04-11] MEDS: DICLOFENAC SOD 1% GEL 100 GM TUBE EXT SCH ×3 (13:14→21:14)
[2021-04-11] MEDS: VALPROIC ACID SOLN 500 MG/10 ML UDC PO SCH (21:15)
[2021-04-11] MEDS: QUEtiapine FUMARATE 25 MG TABLET PO SCH (21:15)
[2021-04-12] MEDS: POLYETHYLENE (MIRALAX) 17 GM PACK PO SCH (09:08)
[2021-04-12] MEDS: buPROPion HCl 100 MG TABLET PO SCH (09:09)
[2021-04-12] MEDS: UMECLIDINIUM/VILANTEROL 62.5/25MCG 7 PUFFS/INHALER INH SCH (09:09)
[2021-04-12] MEDS: FLUTICASONE FUROATE 100MCG 14 PUFFS/INHALER INH SCH (09:09)
[2021-04-12] MEDS: CYANOCOBALAMIN 500 MCG TABLET (VITAMIN B-12) PO SCH (09:09)
[2021-04-12] MEDS: VALPROIC ACID 50 MG/ML UDP PO SCH (09:09)
[2021-04-12] MEDS: FERROUS SULFATE ELIX 220MG/5ML PO SCH ×2 (09:09→17:08)
[2021-04-12] MEDS: MICONAZOLE NITRATE POWDER 43 GM EXT SCH ×2 (09:10→20:15)
[2021-04-12] MEDS: LANSOPRAZOLE 30 MG SOLTAB PO SCH (09:10)
[2021-04-12] MEDS: DICLOFENAC SOD 1% GEL 100 GM TUBE EXT SCH ×4 (09:10→20:15)
[2021-04-12] MEDS: MIDODRINE HCL 2.5 MG TAB PO SCH ×3 (09:10→17:08)
[2021-04-12] MEDS: ATORVASTATIN 40 MG TAB PO SCH (09:10)
[2021-04-12] MEDS: FOLIC ACID 1 MG TAB PO SCH (09:10)
[2021-04-12] MEDS: FINASTERIDE 5 MG TAB PO SCH (09:10)
[2021-04-12] MEDS: DOCUSATE SODIUM/SENNA 50/8.6MG TAB PO SCH (09:13)
--- NOTE | 2021-04-12 11:02 | Hospitalist Progress Note ---
Date of Service April 12, 2021 Assessment & Plan (1) Fall: Plan: Suspect the patient's falls are multifactorial: generalized deconditioning, profound orthostatic hypotension He has frequent falls at home and uses a wheelchair but does stand and pivot to get in BP dropped to 70s systolic with PT eval on 03/18 and was symptomatic. Dropped to the 50s systolic on 03/24 with lightheadedness Hgb initially low but then improved (7.3 - 10.1 - 8.7 - 10.4)-- all without intervention (see below) -Reduced Seroquel from 50mg to 12.5mg but subsequently increased back to 25mg given irritability and agitation. Pt much more pleasant on higher dose of Seroquel added midodrine and titrate dup to 5 mg 3 times daily -home metoprolol stopped (BP/HR stable) -PT/OT evaluations completed and recommending inpatient rehab versus SNF--> case mgmt on board but no beds and proving to be extremely difficult (2) Anemia: Plan: hgb was 7.3 on arrival -- up to 10.1 without intervention/no transfusion- has yo-yo'ed between 8-10. 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 On 03/31-- plavix held given that drop in Hgb. Have since restarted Plavix except now on hold for EGD -patient on PPI -Hgb now down slightly to 9.2 -labs will need followed upon D/C (and occasionally while he remains in house depending on how long patient is here) -EGD planned for Tuesday due to suspected strictures and dysphagia,anemia (3) Hypotension: Plan: As above, now stable for some time with addition of midodrine -Discontinued metoprolol -continue midodrine 5mg -Finasteride would not affect blood pressure and does not need to be discontinued (4) Dysphagia: Plan: Had complaint of feeling like food is getting stuck with swallowing on 04/06 Has had intermittent episodes of vomiting after taking pills throughout his hospital stay Has a h/o esophageal strictures requiring dilatation in 2017 He would not be able to withstand a barium swallow as he cannot stand up for more than a few seconds to a minute at a time Tolerating full liquids diet now while awaiting EGD -Continue Protonix -consult GI--> plan for EGD --> was supposed to be on Tuesday but got cancelled as he ate some pudding--> now planned for Tuesday -NPO after midnight -changed bigger pills to liquids -plan for EGD Tuesday -keep on full liquids diet only now (5) CKD (chronic kidney disease) stage 2, GFR 60-89 ml/min: Plan: Renal function appears to be at baseline in this patient, continue to monitor periodically (6) Chronic hypoxemic respiratory failure: Plan: chronic. No acute issues continue O2 prn (7) COPD (chronic obstructive pulmonary disease) with chronic bronchitis: Plan: Patient with a very history of COPD, still smoking despite lung cancer diagnosis ? reoccurrence of non-small cell lung CA on imaging Trelegy (ICS/AC/LABA) as an outpatient We will substitute Anoro Ellipta (AC/LABA) and Arnuity Ellipta (ICS) while inpatient Oxygenating well on room air Supplemental oxygen as needed to maintain SaO2 between 88 and 92%-has not needed O2 in a long time pulmonology consulted-- appreciate recommendations. 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 Morin's input given asymptomatic status- no intervention. Was tapped in the past. f/u as outpt with PULM (10) Hyponatremia: Plan: Na+ 130, perhaps due to poor hydration orally gave maintenance fluids x 1L follow BMP in AM (11) Peripheral arterial disease: Plan: Patient should be on antiplatelet/statin, started Plavix and statin but Plavix on hold now for EGD History of aortofemoral bypass per prior notes -plan to restart Plavix after EGD (12) Bilateral carotid artery occlusion: Plan: as above,started Plavix and statin (13) Unstageable pressure ulcer of left heel: Plan: XR ankle to assess for OM, no surrounding cellulitis Skin care per nursing protocol (14) Bipolar disorder: Plan: stable continue depakote but changed to liquid as tabs large and hard to swallow -continue reduced dose of seroquel and wellbutrin (15) Constipation: Plan: bowel protocol ordered on board now having daily BMs continue senna/docusate Continue Miralax daily (16) Right shoulder pain: Plan: started Voltaren gel to right shoulder (17) Candidal intertrigo: Plan: changed Nystatin ointment to miconazole powder as was not improving after 2 weeks (18) Seborrhea: Plan: ears bilat -start hydrocortisone cream bid x 2 week course to ears Plan: Disposition: Patient will need senior living facility or inpatient rehab. Lives alone in [facility] and is quite debilitated, unable to care for self. Working with case management. still looking for rehab placement-no beds available, multiple referrals out Medically stable for discharge for almost 3 weeks sister updated on 04/03, called and no answer on 04/13 Admission and Anticipated Discharge Date Admission Date: March 20, 2021 Subjective No complaints. Getting bathed. Is eating and drinking, moving bowels. Remains on liquids diet Review of Systems Review of Systems: All systems reviewed & are unremarkable except as noted in HPI & below Physical Exam Constitutional: WD/WN, vitals as above Neck: trachea midline, no thyromegaly Respiratory: normal respiratory effort Auscultation: + diminished lung sounds (at bases) and + wheezes (A few scattered wheezes bilateral) Cardiovascular: RRR, no murmur, no edema Chest (Breasts): Chest: normal inspection of chest Gastrointestinal (Abdomen): normal bowel sounds, soft, nontender, no hepatosplenomegaly Musculoskeletal: Extremities: extremities normal to inspection; no cyanosis and no clubbing Skin: no rashes, warm and dry + rash (bilat inguinal erythema) also with ears L>R with seborrhea Neurologic: moves all extremities and awake; no focal motor deficits Psychiatric: Orientation: alert, oriented to person and cooperative Lymphatic: no lymphedema Results & Data Results & Data ([facility]) Vital Signs (Past 12 Hours) Vital Signs Temp Pulse Resp BP Pulse Ox 04/12/21 07:27 36.5 C 73 16 97/62 L 94 PG Care Time/CCT Total # of Minutes Spent Total Time Spent with Patient: Total time spent is greater than 50% in coordination of care (as documented) at patient's floor/unit and/or counseling patient: Coding Level of Care Code 64343 Subseq Hosp Care Lvl 2 Diagnoses Fall W19.XXXA Encounter type: initial encounter Anemia D64.9 Hypotension I95.9 Dysphagia R13.10 CKD (chronic kidney disease) stage 2, GFR 60-89 ml/min N18.2 Chronic hypoxemic respiratory failure J96.11 COPD (chronic obstructive pulmonary disease) with chronic bronchitis J44.9 History of lung cancer Z85.118 Recurrent left pleural effusion J90 Hyponatremia E87.1 Peripheral arterial disease I73.9 Bilateral carotid artery occlusion I65.23 Unstageable pressure ulcer of left heel L89.620 Bipolar disorder F31.9 Most recent bipolar episode type: most recent episode unspecified type Constipation K59.00 Right shoulder pain M25.511 Candidal intertrigo B37.2 Seborrhea L21.9 (1) Fall Encounter type: initial encounter Qualified Code(s): W19.XXXA - Unspecified fall, initial encounter (2) Bipolar disorder Most recent bipolar episode type: most recent episode unspecified type
[2021-04-12] MEDS: HYDROCORTISONE 1% CRM 30 GM TUBE EXT SCH ×2 (12:50→20:15)
[2021-04-12] MEDS: QUEtiapine FUMARATE 25 MG TABLET PO SCH (20:15)
[2021-04-12] MEDS: VALPROIC ACID SOLN 500 MG/10 ML UDC PO SCH (20:16)
[2021-04-13 06:55] LABS: Basophils # (auto) 0.02 K/uL (0-0.2); Basophils % (auto) 0.5 %; Eosinophils # (auto) 0.22 K/uL (0-0.5); Eosinophils % (auto) 5.6 %; Hematocrit (blood only) 30.4 % (42-52); Immature Granulocytes # (auto) 0.01 K/uL (0.00-0.02); Immature Granulocytes % (auto) 0.3 %; Lymphocytes # (auto) 0.59 K/uL (1.2-3.4); Lymphocytes % (auto) 15.1 %; Mean Corpuscular Hemoglobin 25.9 pg (25-34); Mean Corpuscular Hgb Conc 32.9 g/dL (32-36); Mean Corpuscular Volume 78.8 fL (80-100); Mean Platelet Volume 9.1 fL (7.4-10.4); Monocytes # (auto) 0.52 K/uL (0.11-0.59); Monocytes % (auto) 13.3 %; Neutrophils # (auto) 2.55 K/uL (1.4-6.5); Neutrophils % (auto) 65.2 %; Platelet Count 359 K/uL (130-400); RDW Coefficient of Variation 19.6 % (11.5-14.5); RDW Standard Deviation 57.1 fL (36.4-46.3); Red Blood Count 3.86 M/uL (4.7-6.1); White Blood Count 3.91 K/uL (4.8-10.8)
[2021-04-13 07:31] LABS: Calcium 9.7 mg/dl (8.5-10.1); Creatinine Clr Calc Pharmacy 86.6 ml/min; Est GFR (African American) 111.9 ml/min; Est GFR (Non-African American) 96.5 ml/min; Potassium 4.3 mmol/L (3.5-5.1)
--- NOTE | 2021-04-13 09:08 | History & Physical Bridge Note ---
Date of Service April 13, 2021 History & Physical Bridge Note I have examined the patient, reviewed the History & Physical and in the interval since the performance of the History & Physical I have noted the following changes of clinical significance: no changes noted PE: A&Ox3. Lungs CTA bilaterally. RRR, no M/R/G. Abdomen soft, nontender. Normal bowel sounds. A/P: Persistent dysphagia, mostly medication-induced. * NPO for now. * COVID test. * EGD with Dr. Randolph today for further evaluation.
--- NOTE | 2021-04-13 09:08 | History & Physical Bridge Note ---
Date of Service April 13, 2021 History & Physical Bridge Note I have examined the patient, reviewed the History & Physical and in the interval since the performance of the History & Physical I have noted the following changes of clinical significance: no changes noted Supervising Physician Co-Signing Physician Notes Proceed with EGD. risks/benefits and procedure discussed with patient, who agrees to proceed
--- NOTE | 2021-04-13 09:35 | Anesthesiology Consultation ---
Date of Service April 13, 2021 Assessment & Plan (1) Encounter for pre-operative examination: Chart Review Chart Review: Acceptable Risk for Surgery and Patient NOT seen in Pre Admission Testing Consults Requested none ASA ASA3 Proposed Anesthesia Anesthesia Type: MAC History Surgery Operation Date: 04/10/21 13:00 Proposed Procedures p Esophagogastroduodenoscopy Eda River Case, DO Operation Date: 04/10/21 16:15 Proposed Procedures p Esophagogastroduodenoscopy Dr Hayden River Case, DO Operation Date: 04/13/21 16:30 Proposed Procedures p Esophagogastroduodenoscopy Dr. Tomasa Randolph MD Height/Weight Height: 5 ft 5 in Weight: 72 kg Allergies Allergy/AdvReac Type Severity Reaction Status Date / Time ciprofloxacin Allergy Intermediate RASH Verified 03/17/21 16:31 vancomycin Allergy Intermediate RASH Verified 03/17/21 16:31 sulfamethoxazole Allergy Unknown Unknown Verified 03/17/21 16:31 [From Bactrim] trimethoprim [From Bactrim] Allergy Unknown Unknown Verified 03/17/21 16:31 Medications Home Medications Medication Instructions Recorded Confirmed Last Taken acetaminophen 500 mg capsule 500 mg PO Q6H PRN 02/02/18 03/17/21 09/01/20 ascorbic acid (vitamin C) 500 mg 500 mg PO BID cap 02/02/18 03/17/21 03/17/21 08:00 capsule cholecalciferol (vitamin D3) 25 1,000 units PO DAILY 04/03/18 03/17/21 03/17/21 mcg (1,000 unit) capsule ibuprofen 600 mg tablet 600 mg PO Q6H PRN #90 tab 01/08/19 03/17/21 Unknown albuterol sulfate 90 mcg/actuation 2 puffs INH QID PRN #18 gm 01/29/19 03/17/21 02/23/21 aerosol inhaler (Ventolin HFA) docusate sodium 100 mg capsule 100 mg PO DAILY PRN cap 01/29/19 03/17/21 02/23/21 ketoconazole 2 % topical cream 1 applic TOP DAILY #90 g 02/12/20 03/17/21 03/17/21 bupropion HCl 100 mg tablet 100 mg PO DAILY #90 tab 01/05/21 03/17/21 03/17/21 divalproex 250 mg tablet,delayed 250 mg PO HS #90 tab 01/05/21 03/17/21 03/16/21 release fluticasone fur. 100 mcg-umeclid 1 inh INHALATION Q24H #60 ea 01/05/21 03/17/21 03/17/21 62.5 mcg-vilant 25 mcg inhalat.powder (Trelegy Ellipta) metoprolol succinate 25 mg 25 mg PO DAILY #90 tab 01/28/21 03/17/21 03/17/21 tablet,extended release 24 hr omeprazole 20 mg capsule,delayed 20 mg PO DAILY #90 cap 02/17/21 03/17/21 03/17/21 release quetiapine 50 mg tablet 50 mg PO HS 02/24/21 03/17/21 03/16/21 dutasteride 0.5 mg capsule 0.5 mg PO DAILY #90 cap 03/03/21 03/17/21 03/17/21 divalproex 500 mg tablet,delayed See Rx Instructions .ROUTE .COMPLEX 03/17/21 03/17/21 03/17/21 08:00 release melatonin 5 mg tablet 5 mg PO HS PRN 03/17/21 03/17/21 Unknown Active Medications Generic Name Dose Route Start Last Admin Trade Name Freq PRN Reason Stop Dose Admin Acetaminophen 500 mg 03/18/21 02:09 04/09/21 07:45 Acetaminophen 500 Mg Tab PO 04/17/21 02:08 500 mg Q6H PRN Administration fever or pain Albuterol 2 puffs 03/18/21 01:47 03/22/21 17:50 Albuterol Hfa 8 Gm Inhaler INH 04/17/21 01:46 2 puffs QID PRN Administration shortness of breath or wheezin Albuterol 3 ml 04/01/21 10:29 04/09/21 17:50 Albut/Ipratrop 3mg/0.5mg Neb 3 Ml Vial NEB 05/01/21 10:59 3 ml Q4R PRN Administration cough,wheezing,sob Ascorbic Acid 500 mg 03/18/21 01:47 04/11/21 08:57 Ascorbic Acid 500 Mg Tab PO 04/17/21 01:46 500 mg BID GERMAN Administration Atorvastatin Calcium 40 mg 03/25/21 09:00 04/12/21 09:10 Atorvastatin 40 Mg Tab PO 04/24/21 08:59 40 mg QAM GERMAN Administration Bupropion HCl 100 mg 03/18/21 09:00 04/12/21 09:09 Bupropion Hcl 100 Mg Tablet PO 04/17/21 08:59 100 mg DAILY GERMAN Administration Clopidogrel Bisulfate 75 mg 04/07/21 09:00 04/09/21 11:19 Clopidogrel Bisulfate 75 Mg Tab PO 05/07/21 08:59 Not Given QAM GERMAN Cyanocobalamin 1,000 mcg 04/01/21 09:00 04/12/21 09:09 Cyanocobalamin 500 Mcg Tablet (Vitamin B-12) PO 05/01/21 08:59 1,000 mcg QAM GERMAN Administration Diclofenac Sodium 2 gm 04/11/21 13:00 04/12/21 20:15 Diclofenac Sod 1% Gel 100 Gm Tube EXT 05/11/21 12:59 2 gm QID GERMAN Administration Docusate Sodium 100 mg 03/18/21 01:47 04/07/21 08:56 Docusate Sodium 100 Mg Cap PO 04/17/21 01:46 100 mg DAILY PRN Administration Constipation Ferrous Sulfate 220 mg 04/10/21 17:00 04/12/21 17:08 Ferrous Sulfate Elix 220mg/5ml PO 05/10/21 16:59 220 mg BIDM GERMAN Administration Finasteride 5 mg 03/26/21 13:00 04/12/21 09:10 Finasteride 5 Mg Tab PO 04/25/21 12:59 5 mg DAILY GERMAN Administration Protocol Fluticasone Furoate 1 puffs 03/18/21 09:00 04/12/21 09:09 Fluticasone Furoate 100mcg 14 Puffs/Inhaler INH 04/17/21 08:59 1 puffs QAM GERMAN Administration Folic Acid 1 mg 03/18/21 11:30 04/12/21 09:10 Folic Acid 1 Mg Tab PO 04/17/21 11:29 1 mg QAM GERMAN Administration Hydrocortisone 1 appln 04/12/21 11:15 04/12/21 20:15 Hydrocortisone 1% Crm 30 Gm Tube EXT 05/12/21 11:14 1 appln BID GERMAN Administration Lansoprazole 30 mg 04/11/21 09:00 04/12/21 09:10 Lansoprazole 30 Mg Soltab PO 05/11/21 08:59 30 mg DAILY GERMAN Administration Miconazole Nitrate 1 appln 04/11/21 11:30 04/12/21 20:15 Miconazole Nitrate Powder 43 Gm EXT 05/11/21 11:29 1 appln BID GERMAN Administration Midodrine 5 mg 04/06/21 08:00 04/12/21 17:08 Midodrine Hcl 2.5 Mg Tab PO 05/06/21 07:59 5 mg TID@0800,1200,1700 GERMAN Administration Ondansetron HCl 4 mg 03/27/21 10:17 04/09/21 20:30 Ondansetron Inj 2 Mg/Ml 2 Ml Vial IV 04/26/21 10:16 4 mg Q6H PRN Administration Nausea And Vomiting Polyethylene Glycol 17 gm 03/28/21 18:30 04/12/21 09:08 Polyethylene (Miralax) 17 Gm Pack PO 04/27/21 18:29 17 gm DAILY GERMAN Administration Quetiapine Fumarate 25 mg 04/04/21 21:00 04/12/21 20:15 Quetiapine Fumarate 25 Mg Tablet PO 05/04/21 20:59 25 mg HS GERMAN Administration Senna/Docusate Sodium 1 tab 03/27/21 19:45 04/12/21 09:13 Docusate Sodium/Senna 50/8.6mg Tab PO 04/26/21 19:44 1 tab QAM GERMAN Administration Umeclidinium/Vilanterol 1 puffs 03/18/21 09:00 04/12/21 09:09 Umeclidinium/Vilanterol 62.5/25mcg 7 Puffs/Inhaler INH 04/17/21 08:59 1 p uffs QAM GERMAN Administration Valproic Acid 750 mg 04/11/21 09:00 04/12/21 09:09 Valproic Acid 50 Mg/Ml Udp PO 04/13/21 12:00 750 mg QAM GERMAN Administration Valproic Acid 500 mg 04/10/21 21:00 04/12/21 20:16 Valproic Acid Soln 500 Mg/10 Ml Udc PO 05/10/21 20:59 500 mg PM GERMAN Administration Vitamin D 1,000 units 03/18/21 09:00 04/11/21 08:58 Cholecalciferol 1,000 Units 25 Mcg Tab PO 04/17/21 08:59 1,000 units DAILY GERMAN Administration NPO Date Last Intake of Fluids: 04/12/21 Time Last Intake of Fluids: 23:59 Date Last Intake of Solids: 04/12/21 Time Last Intake of Solids: 23:59 Past Medical History Medical History Ataxic gait Benign prostate hyperplasia Bilateral carotid artery occlusion PT STATES NO SURGERY Bipolar disorder 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 Esophageal stenosis GERD (gastroesophageal reflux disease) Hepatic steatosis Hiatal hernia History of COVID-19 07/2020 (DIARRHEA AND FEVER) HOSPITALIZED AT [facility] History of lung cancer (01/2016) 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 Homicidal ideation PT DENIES AT PRESENT TIME Hypertension Memory loss Osteomyelitis Peripheral arterial disease Peripheral neuropathy Recurrent left pleural effusion s/p thoracentesis August 2018 Restless leg syndrome Schizoaffective disorder Past Family History Family History Brother Myocardial infarction Father Myocardial infarction Other Cancer Family history non-contributory Lung disease No family history of adverse response to anesthesia Denies family history of Tuberculosis Ovarian cancer Prostate cancer Diabetes Heart disease Allergies Breast cancer Emphysema, unspecified Lung cancer Colorectal cancer Asthma Past Surgical History Surgical History H/O foot surgery LEFT HEEL REMOVAL FROM PRESSURE ULCER History of bronchoscopy (01/2016) History of colonoscopy History of herniorrhaphy History of lobectomy of lung LOWER LEFT LUNG S/P peripheral artery angioplasty with stent placement (06/2016) 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, 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 S/P thoracentesis (05/2019) L pleural effusion Status post femorofemoral bypass surgery (06/2016) [place] teeth removed Social History Smoking Status: Current every day smoker tobacco type: cigarettes Smoking cigarettes per day: 6-8 DAILY Do You Dip or Chew Tobacco: Yes Hx Alcohol Use: Yes Alcohol type: beer alcohol intake frequency: a few times a week Hx Substance Use: Yes substance use type: marijuana and painkillers Last Used Substance: Days (ago) Last Used Substance Other:: 3 Physical Exam Vital Signs Last Vital Signs Temp 97.7 F 04/13/21 07:27 Pulse 70 04/13/21 07:27 Resp 16 04/13/21 07:27 BP 92/62 L 04/13/21 07:27 Pulse Ox 97 04/13/21 07:27 Testing Laboratory Results 04/13/21 06:00 04/13/21 06:00 PT 10.8 Seconds (9.0-12.0) 03/17/21 15:53 INR 1.1 (0.9-1.1) 03/17/21 15:53 APTT 29.1 Seconds (21.0-31.0) 03/17/21 15:53 Urine Color Yellow 03/17/21 17:43 Urine Appearance Clear (Clear) 03/17/21 17:43 Urine pH 7.0 (4.5-7.5) 03/17/21 17:43 Ur Specific [place] 1.029 (1.000-1.030) 03/17/21 17:43 Urine Protein Negative (Negative) 03/17/21 17:43 Urine Glucose (UA) Negative (Negative) 03/17/21 17:43 Urine Ketones Negative (Negative) 03/17/21 17:43 Urine Nitrite Negative (Negative) 03/17/21 17:43 Ur Leukocyte Esterase Negative (Negative) 03/17/21 17:43 Blood Type AB Positive 03/17/21 15:59 Antibody Screen NEGATIVE 03/17/21 15:59 03/17/21 16:11 Aerobic Blood Culture - Final Blood No growth in Aerobic bottle after 5 days. Anaerobic Blood Culture - Final 03/17/21 15:53 Aerobic Blood Culture - Final Blood No growth in Aerobic bottle after 5 days. Anaerobic Blood Culture - Final No growth in Anaerobic bottle after 5 days. Electrocardiogram Date: 03/17/21 Findings: + NSR @ Normal sinus rhythm Low voltage QRS Borderline ECG Chest X-Ray Date: 04/21/21 Findings: + NAD
[2021-04-13] MEDS: FERROUS SULFATE ELIX 220MG/5ML PO SCH ×2 (10:02→17:55)
[2021-04-13] MEDS: MIDODRINE HCL 2.5 MG TAB PO SCH ×3 (10:02→17:59)
[2021-04-13] MEDS: CYANOCOBALAMIN 500 MCG TABLET (VITAMIN B-12) PO SCH (10:03)
[2021-04-13] MEDS: ATORVASTATIN 40 MG TAB PO SCH (10:03)
[2021-04-13] MEDS: DOCUSATE SODIUM/SENNA 50/8.6MG TAB PO SCH (10:03)
[2021-04-13] MEDS: buPROPion HCl 100 MG TABLET PO SCH (10:03)
[2021-04-13] MEDS: FINASTERIDE 5 MG TAB PO SCH (10:03)
[2021-04-13] MEDS: FOLIC ACID 1 MG TAB PO SCH (10:04)
[2021-04-13] MEDS: POLYETHYLENE (MIRALAX) 17 GM PACK PO SCH (10:04)
[2021-04-13] MEDS: LANSOPRAZOLE 30 MG SOLTAB PO SCH (10:04)
[2021-04-13] MEDS: VALPROIC ACID 50 MG/ML UDP PO SCH (10:05)
[2021-04-13] MEDS: UMECLIDINIUM/VILANTEROL 62.5/25MCG 7 PUFFS/INHALER INH SCH (10:11)
[2021-04-13] MEDS: FLUTICASONE FUROATE 100MCG 14 PUFFS/INHALER INH SCH (10:11)
[2021-04-13] MEDS ORDERED: METOPROLOL TARTRATE 1 MG/ML VIAL IV ONE (12:45)
[2021-04-13] MEDS ORDERED: PROPOFOL IV EMULSION 10 MG/ML 20 ML VIAL IV ONE (12:45)
[2021-04-13] MEDS ORDERED: LIDOCAINE 2% 2 ML VIAL/AMP(20MG/ML) INFIL ONE (13:23)
[2021-04-13] MEDS ORDERED: PHENYLEPHRINE 100MCG/ML 5ML SYR ONE (13:23)
--- NOTE | 2021-04-13 13:41 | GI REPORT ---
Patient Name: Roberth Luther Procedure Date: 04/13/2021 12:35 PM Date of : 1955 Admit Type: Inpatient Age: 66 Gender: Male Attending MD: Asim Randolph MD Procedure: Upper GI endoscopy Providers: Asim Randolph MD Referring MD: Lanre Anderson Indications: Dysphagia Medicines: Monitored Anesthesia Care Complications: No immediate complications. Estimated blood loss: None. Estimated Blood Loss: Estimated blood loss: none. Procedure: Pre-Anesthesia Assessment: - Prior Anticoagulants: The patient has taken no previous anticoagulant or antiplatelet agents. - ASA Grade Assessment: II - A patient with mild systemic disease. After obtaining informed consent, the endoscope was passed under direct vision. Throughout the procedure, the patient's blood pressure, pulse, and oxygen saturations were monitored continuously. The Endoscope was introduced through the mouth, and advanced to the second part of duodenum. The Endoscope was introduced through the and advanced to the. The upper GI endoscopy was accomplished without difficulty. The patient tolerated the procedure well. Findings: One benign-appearing, intrinsic severe (stenosis; an endoscope cannot pass) stenosis was found in the mid esophagus. The stenosis was traversed after downsizing scope and dilating. A TTS dilator was passed through the scope. Dilation with a 12-13.5-15 mm balloon dilator was performed to 15 mm. The dilation site was examined following endoscope reinsertion and showed moderate mucosal disruption and moderate improvement in luminal narrowing. Estimated blood loss: none. Diffuse mild inflammation characterized by erythema was found in the stomach. Biopsies were taken with a cold forceps for Helicobacter pylori testing. Estimated blood loss: none. The duodenal bulb and second portion of the duodenum were normal. Impression: - Benign-appearing esophageal stenosis. Dilated. - Gastritis. Biopsied. - Normal duodenal bulb and second portion of the duodenum. Recommendation: - Resume previous diet today. - Await pathology results. - [facility]. - Repeat upper endoscopy in 2 weeks for retreatment. Asim Randolph MD 04/13/2021 1:40:34 PM This report has been signed electronically. Note Initiated On: 04/13/2021 12:35 PM Number of Addenda: 0 I attest to the content of the Intraoperative Record and orders documented therein, exceptions below {[id number]}
--- NOTE | 2021-04-13 14:33 | Anesthesiology Progress Note ---
Date of Service April 13, 2021 Anesthesia Post Procedure Vital Signs Vital Signs: Temp Pulse Resp BP BP Pulse Ox 04/13/21 14:17 77 16 103/65 99 04/13/21 13:59 76 16 98/63 L 99 04/13/21 13:45 74 16 83/55 L 97 04/13/21 13:32 74 16 88/56 L 92 04/13/21 11:30 97.9 F 73 16 132/73 98 04/13/21 07:27 97.7 F 70 16 92/62 L 97 04/12/21 23:55 98.2 F 80 16 120/73 97 04/12/21 15:43 97.5 F L 73 18 113/68 96 Pain Intensity Bilateral Foot: Pain Intensity: 0 Transfer of Care Handoff Completed per policy Notes Mental Status: alert / awake / arousable and participated in evaluation Patient Amnestic to Procedure: Yes Nausea / Vomiting: adequately controlled Pain: adequately controlled Airway Patency, RR, SpO2: stable & adequate BP & HR: stable & adequate Hydration State: stable & adequate Anesthetic Complications: no major complications apparent and Pt Satisfied with anesthetic care
[2021-04-13] MEDS: DICLOFENAC SOD 1% GEL 100 GM TUBE EXT SCH ×4 (15:18→20:12)
[2021-04-13] MEDS: HYDROCORTISONE 1% CRM 30 GM TUBE EXT SCH ×2 (15:19→20:11)
[2021-04-13] MEDS: MICONAZOLE NITRATE POWDER 43 GM EXT SCH ×2 (15:22→20:11)
--- NOTE | 2021-04-13 18:47 | Hospitalist Progress Note ---
Date of Service April 13, 2021 Assessment & Plan (1) Fall: Plan: Suspect the patient's falls are multifactorial: generalized deconditioning, profound orthostatic hypotension He has frequent falls at home and uses a wheelchair but does stand and pivot to get in BP dropped to 70s systolic with PT eval on 03/18 and was symptomatic. Dropped to the 50s systolic on 03/24 with lightheadedness Hgb initially low but then improved (7.3 - 10.1 - 8.7 - 10.4)-- all without intervention (see below) -Reduced Seroquel from 50mg to 12.5mg but subsequently increased back to 25mg given irritability and agitation. Pt much more pleasant on higher dose of Seroquel added midodrine and titrated up to 5 mg 3 times daily -home metoprolol stopped (BP/HR stable) -PT/OT evaluations completed and recommending inpatient rehab versus SNF--> case mgmt on board but no beds and proving to be extremely difficult (2) Anemia: Plan: hgb was 7.3 on arrival -- up to 10.1 without intervention/no transfusion- has yo-yo'ed between 8-10. Most likely margin of error in the lab Microcytic stool for occult blood negative x 2 Did have a W/U and Seen by established medicaid collection specialist/oncologist-- started on Ferrous sulfate/folic acid and B12 -was not on antiplatelet agents [employer].Has since been started on plavix given PAD. On 03/31-- plavix held given that drop in Hgb. Have since restarted Plavix except now on hold for EGD -patient on PPI -Hgb at 10 -labs will need followed upon D/C (and occasionally while he remains in house depending on how long patient is here) -EGD on 04/13 - dilated esophagus due to benign appearing esophageal stenosis; gastritis with biopsy obtained - likely repeat endoscopy x 2 weeks for retreatment (3) Hypotension: Plan: As above, now stable for some time with addition of midodrine -Discontinued metoprolol -continue midodrine 5mg -Finasteride would not affect blood pressure and does not need to be discontinued (4) Dysphagia: Plan: Had complaint of feeling like food is getting stuck with swallowing on 04/06 Has had intermittent episodes of vomiting after taking pills throughout his hospital stay Has a h/o esophageal strictures requiring dilatation in 2017 He would not be able to withstand a barium swallow as he cannot stand up for more than a few seconds to a minute at a time Tolerating full liquids diet now while awaiting EGD -Continue Prevacid -changed bigger pills to liquids - GI following - appreciate assistance (5) CKD (chronic kidney disease) stage 2, GFR 60-89 ml/min: Plan: Renal function appears to be at baseline in this patient, continue to monitor periodically (6) Chronic hypoxemic respiratory failure: Plan: chronic. No acute issues continue O2 prn (7) COPD (chronic obstructive pulmonary disease) with chronic bronchitis: Plan: Patient with a history of COPD, still smoking despite lung cancer diagnosis ? reoccurrence of non-small cell lung CA on imaging Trelegy (ICS/AC/LABA) as an outpatient We will substitute Anoro Ellipta (AC/LABA) and Arnuity Ellipta (ICS) while inpatient Oxygenating well on room air Supplemental oxygen as needed to maintain SaO2 between 88 and 92%-has not needed O2 in a long time pulmonology consulted-- appreciate recommendations. 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 Morin's input given asymptomatic status- no intervention. Was tapped in the past. f/u as outpt with [facility] (10) Hyponatremia: Plan: Na+ 131, perhaps due to poor hydration orally Follow BMP routinely (11) Peripheral arterial disease: Plan: Patient should be on antiplatelet/statin, started Plavix and statin but Plavix on hold now for EGD History of aortofemoral bypass per prior notes -plan to restart Plavix after EGD (12) Bilateral carotid artery occlusion: Plan: as above,started Plavix and statin (13) Unstageable pressure ulcer of left heel: Plan: XR ankle to assess for OM, no surrounding cellulitis Skin care per nursing protocol (14) Bipolar disorder: Plan: stable continue depakote but changed to liquid as tabs large and hard to swallow -continue reduced dose of seroquel and wellbutrin (15) Constipation: Plan: bowel protocol ordered on board now having daily BMs continue senna/docusate Continue Miralax daily (16) Right shoulder pain: Plan: started Voltaren gel to right shoulder (17) Candidal intertrigo: Plan: changed Nystatin ointment to miconazole powder as was not improving after 2 weeks (18) Seborrhea: Plan: ears bilat -start hydrocortisone cream bid x 2 week course to ears Plan: Disposition: Patient will need shelter facility or inpatient rehab. Lives alone in [facility] and is quite debilitated, unable to care for self. Working with case management. still looking for rehab placement-no beds available, multiple referrals out Medically stable for discharge for almost 3 weeks sister updated today - Tanna is patient's sister not friend as depicted in chart. She was updated over the phone today Admission and Anticipated Discharge Date Admission Date: March 20, 2021 Subjective Reports feeling well. Was seen prior to EGD. Reporting he was hungry. Verbalizes no other complaints Review of Systems Review of Systems: REVIEW OF SYSTEMS General/Constitutional: Denies fever/chills ENT: + trouble swallowing; Denies sore throat Cardiovascular: Denies chest pain, palpitations, edema Respiratory: Denies cough, SOB GI: Denies nausea, vomiting, abdominal pain, constipation, diarrhea : Denies dysuria Musculoskeletal: Denies joint/muscle aches Neurologic: Denies dizziness/lightheadedness Physical Exam Physical Exam: PHYSICAL EXAM General Appearance: WDWN in NAD who is A&O x 3 HEENT: Head is normocephalic/atraumatic; Hearing grossly intact Neck: Supple; Trachea midline; Neg JVD Heart: RRR with no M/G/R Lungs: CTA in all lung goldberg bilaterally but diminished at bases bilaterally; Respirations unlabored; Neg accessory muscle use Abdomen: Soft, non-tender, non-distended; Positive BS x 4 quadrants Extremities: Neg cyanosis or edema Neurological: Speech clear; Gross motor/sensory function intact; Neg focal neurologic deficits Psychiatric: Appropriate mood/affect Skin: Normal Color; Warm/Dry Results & Data Results & Data ([facility]) Vital Signs (Past 12 Hours) Vital Signs Temp Pulse Pulse Resp BP BP BP 04/13/21 15:24 77 103/65 11/08/21 14:17 77 16 103/65 04/13/21 13:59 76 16 98/63 L 04/13/21 13:45 74 16 83/55 L 04/13/21 13:32 74 16 88/56 L 04/13/21 11:30 36.6 C 73 16 132/73 04/13/21 07:27 36.5 C 70 16 92/62 L Pulse Ox 04/13/21 15:24 04/13/21 14:17 99 04/13/21 13:59 99 04/13/21 13:45 97 04/13/21 13:32 92 04/13/21 11:30 98 04/13/21 07:27 97 PG Care Time/CCT Total # of Minutes Spent Total Time Spent with Patient: Total time spent is greater than 50% in coordination of care (as documented) at patient's floor/unit and/or counseling patient: Coding Level of Care Code 92716 Subseq Hosp Care Lvl 3 Diagnoses Fall W19.XXXA Encounter type: initial encounter Anemia D64.9 Hypotension I95.9 Dysphagia R13.10 CKD (chronic kidney disease) stage 2, GFR 60-89 ml/min N18.2 Chronic hypoxemic respiratory failure J96.11 COPD (chronic obstructive pulmonary disease) with chronic bronchitis J44.9 History of lung cancer Z85.118 Recurrent left pleural effusion J90 Hyponatremia E87.1 Peripheral arterial disease I73.9 Bilateral carotid artery occlusion I65.23 Unstageable pressure ulcer of left heel L89.620 Bipolar disorder F31.9 Most recent bipolar episode type: most recent episode unspecified type Constipation K59.00 Right shoulder pain M25.511 Candidal intertrigo B37.2 Seborrhea L21.9 (1) Bipolar disorder Most recent bipolar episode type: most recent episode unspecified type (2) Fall Encounter type: initial encounter Qualified Code(s): W19.XXXA - Unspecified fall, initial encounter
[2021-04-13] MEDS: QUEtiapine FUMARATE 25 MG TABLET PO SCH (20:11)
[2021-04-13] MEDS: VALPROIC ACID SOLN 500 MG/10 ML UDC PO SCH (20:12)
[2021-04-14] MEDS: CYANOCOBALAMIN 500 MCG TABLET (VITAMIN B-12) PO SCH (08:23)
[2021-04-14] MEDS: buPROPion HCl 100 MG TABLET PO SCH (08:24)
[2021-04-14] MEDS: VALPROIC ACID SOLN 250 MG/5 ML UDC PO SCH (08:24)
[2021-04-14] MEDS: MIDODRINE HCL 2.5 MG TAB PO SCH ×3 (08:24→17:29)
[2021-04-14] MEDS: FINASTERIDE 5 MG TAB PO SCH (08:24)
[2021-04-14] MEDS: DOCUSATE SODIUM/SENNA 50/8.6MG TAB PO SCH (08:24)
[2021-04-14] MEDS: ATORVASTATIN 40 MG TAB PO SCH (08:24)
[2021-04-14] MEDS: FOLIC ACID 1 MG TAB PO SCH (08:24)
[2021-04-14] MEDS: FERROUS SULFATE ELIX 220MG/5ML PO SCH ×2 (08:25→17:28)
[2021-04-14] MEDS: LANSOPRAZOLE 30 MG SOLTAB PO SCH (08:27)
[2021-04-14] MEDS: DICLOFENAC SOD 1% GEL 100 GM TUBE EXT SCH ×4 (08:27→21:18)
[2021-04-14] MEDS: FLUTICASONE FUROATE 100MCG 14 PUFFS/INHALER INH SCH (08:28)
[2021-04-14] MEDS: UMECLIDINIUM/VILANTEROL 62.5/25MCG 7 PUFFS/INHALER INH SCH (08:28)
[2021-04-14] MEDS: HYDROCORTISONE 1% CRM 30 GM TUBE EXT SCH ×2 (08:28→21:18)
[2021-04-14] MEDS: POLYETHYLENE (MIRALAX) 17 GM PACK PO SCH (08:29)
[2021-04-14] MEDS: MICONAZOLE NITRATE POWDER 43 GM EXT SCH ×2 (08:29→21:18)
--- NOTE | 2021-04-14 14:44 | Hospitalist Progress Note ---
Date of Service April 14, 2021 Assessment & Plan (1) Fall: Plan: Suspect the patient's falls are multifactorial: generalized deconditioning, profound orthostatic hypotension He has frequent falls at home and uses a wheelchair but does stand and pivot to get in BP dropped to 70s systolic with PT eval on 03/18 and was symptomatic. Dropped to the 50s systolic on 03/24 with lightheadedness Hgb initially low but then improved (7.3 - 10.1 - 8.7 - 10.4)-- all without intervention (see below) -Reduced Seroquel from 50mg to 12.5mg but subsequently increased back to 25mg given irritability and agitation. Pt much more pleasant on higher dose of Seroquel added midodrine and titrated up to current 7.5 mg TID and will monitor -home metoprolol stopped (BP/HR stable) -PT/OT evaluations completed and recommending inpatient rehab versus SNF--> case mgmt on board but no beds and proving to be extremely difficult (2) Anemia: Plan: hgb was 7.3 on arrival -- up to 10.1 without intervention/no transfusion- has yo-yo'ed between 8-10. 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 On 03/31-- plavix held given that drop in Hgb. Have since restarted Plavix except now on hold for EGD -patient on PPI -Hgb stable -labs will need followed upon D/C (and occasionally while he remains in house d epending on how long patient is here) -EGD on 04/13 - dilated esophagus due to benign appearing esophageal stenosis; gastritis with biopsy obtained - likely repeat endoscopy x 2 weeks for retreatment -- Pathology/Biopsy pending (3) Hypotension: Plan: As above, now stable for some time with addition of midodrine - still occasional drops and will titrate to 7.5 mg TID -Discontinued metoprolol -continue midodrine 7.5 mg -Finasteride would not affect blood pressure and does not need to be discontinued (4) Dysphagia: Plan: Had complaint of feeling like food is getting stuck with swallowing on 04/06 Has had intermittent episodes of vomiting after taking pills throughout his hospital stay Has a h/o esophageal strictures requiring dilatation in 2017 He would not be able to withstand a barium swallow as he cannot stand up for more than a few seconds to a minute at a time Tolerating full liquids diet now while awaiting EGD -Continue Prevacid -changed bigger pills to liquids - GI following - appreciate assistance (5) CKD (chronic kidney disease) stage 2, GFR 60-89 ml/min: Plan: Renal function appears to be at baseline in this patient, continue to monitor periodically (6) Chronic hypoxemic respiratory failure: Plan: chronic. No acute issues continue O2 prn (7) COPD (chronic obstructive pulmonary disease) with chronic bronchitis: Plan: Patient with a history of COPD, still smoking despite lung cancer diagnosis ? reoccurrence of non-small cell lung CA on imaging Trelegy (ICS/AC/LABA) as an outpatient We will substitute Anoro Ellipta (AC/LABA) and Arnuity Ellipta (ICS) while inpatient Oxygenating well on room air Supplemental oxygen as needed to maintain SaO2 between 88 and 92%-has not needed O2 in a long time pulmonology consulted-- appreciate recommendations. 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 Morin's input given asymptomatic status- no intervention. Was tapped in the past. f/u as outpt with PULM (10) Hyponatremia: Plan: Na+ 131, perhaps due to poor hydration orally Follow BMP routinely (11) Peripheral arterial disease: Plan: Patient should be on antiplatelet/statin, started Plavix and statin but Plavix on hold now for EGD History of aortofemoral bypass per prior notes -plan to restart Plavix after EGD (12) Bilateral carotid artery occlusion: Plan: as above,started Plavix and statin (13) Unstageable pressure ulcer of left heel: Plan: XR ankle to assess for OM, no surrounding cellulitis Skin care per nursing protocol (14) Bipolar disorder: Plan: stable continue depakote but changed to liquid as tabs large and hard to swallow -continue reduced dose of seroquel and wellbutrin (15) Constipation: Plan: bowel protocol ordered on board; adequate bowel movements continue senna/docusate Continue Miralax daily (16) Right shoulder pain: Plan: started Voltaren gel to right shoulder (17) Candidal intertrigo: Plan: changed Nystatin ointment to miconazole powder as was not improving after 2 weeks (18) Seborrhea: Plan: ears bilat -start hydrocortisone cream bid x 2 week course to ears Plan: Disposition: Patient will need senior care facility or inpatient rehab. Lives alone in [facility] and is quite debilitated, unable to care for self. Working with case management. still looking for rehab placement-no beds available, multiple referrals out Medically stable for discharge sister updated on 04/13 - is patient's sister not friend as depicted in chart. Admission and Anticipated Discharge Date Admission Date: March 20, 2021 Subjective Patient is a bit more sleepy today during my visit. However verbalizes no complaints. States he is tolerating eating without swallowing difficulty or pain. Review of Systems Review of Systems: REVIEW OF SYSTEMS General/Constitutional: Denies fever/chills ENT: Denies sore throat or trouble swallowing Cardiovascular: Denies chest pain, palpitations, edema Respiratory: Denies cough, SOB GI: Denies nausea, vomiting, abdominal pain, constipation, diarrhea : Denies dysuria Musculoskeletal: Denies joint/muscle aches Neurologic: Denies dizziness/lightheadedness Physical Exam Physical Exam: PHYSICAL EXAM General Appearance: WDWN in NAD who is A&O x 3 HEENT: Head is normocephalic/atraumatic; Hearing grossly intact Neck: Supple; Trachea midline; Neg JVD Heart: RRR with no M/G/R Lungs: CTA in all lung goldberg bilaterally but diminished at bases bilaterally; Respirations unlabored; Neg accessory muscle use Abdomen: Soft, non-tender, non-distended; Positive BS x 4 quadrants Extremities: Neg cyanosis or edema Neurological: Speech clear; Gross motor/sensory function intact; Neg focal neurologic deficits Psychiatric: Appropriate mood/affect Skin: Normal Color; Warm/Dry Results & Data Results & Data ([facility]) Vital Signs (Past 12 Hours) Vital Signs Temp Pulse Resp BP Pulse Ox 04/14/21 08:30 36.8 C 73 16 96/65 L 93 PG Care Time/CCT Total # of Minutes Spent Total Time Spent with Patient: Total time spent is greater than 50% in coordination of care (as documented) at patient's floor/unit and/or counseling patient: Coding Level of Care Code 51958 Subseq Hosp Care Lvl 3 Diagnoses Fall W19.XXXA Encounter type: initial encounter Anemia D64.9 Hypotension I95.9 Dysphagia R13.10 CKD (chronic kidney disease) stage 2, GFR 60-89 ml/min N18.2 Chronic hypoxemic respiratory failure J96.11 COPD (chronic obstructive pulmonary disease) with chronic bronchitis J44.9 History of lung cancer Z85.118 Recurrent left pleural effusion J90 Hyponatremia E87.1 Peripheral arterial disease I73.9 Bilateral carotid artery occlusion I65.23 Unstageable pressure ulcer of left heel L89.620 Bipolar disorder F31.9 Most recent bipolar episode type: most recent episode unspecified type Constipation K59.00 Right shoulder pain M25.511 Candidal intertrigo B37.2 Seborrhea L21.9 (1) Fall Encounter type: initial encounter Qualified Code(s): W19.XXXA - Unspecified fall, initial encounter (2) Bipolar disorder Most recent bipolar episode type: most recent episode unspecified type
[2021-04-14] MEDS: QUEtiapine FUMARATE 25 MG TABLET PO SCH (21:17)
[2021-04-14] MEDS: VALPROIC ACID SOLN 500 MG/10 ML UDC PO SCH (21:18)
[2021-04-15 06:38] LABS: Hematocrit (blood only) 30.6 % (42-52); Hemoglobin 10.1 g/dL (14.0-18.0); Mean Corpuscular Volume 78.9 fL (80-100); Platelet Count 323 K/uL (130-400); RDW Coefficient of Variation 19.4 % (11.5-14.5); RDW Standard Deviation 56.1 fL (36.4-46.3); Red Blood Count 3.88 M/uL (4.7-6.1); White Blood Count 5.03 K/uL (4.8-10.8)
[2021-04-15 07:05] LABS: BUN Creatinine Ratio 17.2 (10-20); Calcium 9.6 mg/dl (8.5-10.1); Creatinine Clr Calc Pharmacy 84.3 ml/min; Est GFR (African American) 110.6 ml/min; Est GFR (Non-African American) 95.4 ml/min
[2021-04-15] MEDS: FERROUS SULFATE ELIX 220MG/5ML PO SCH ×2 (08:58→17:48)
[2021-04-15] MEDS: MIDODRINE HCL 2.5 MG TAB PO SCH ×3 (08:59→17:48)
[2021-04-15] MEDS: VALPROIC ACID SOLN 250 MG/5 ML UDC PO SCH (08:59)
[2021-04-15] MEDS: UMECLIDINIUM/VILANTEROL 62.5/25MCG 7 PUFFS/INHALER INH SCH (08:59)
[2021-04-15] MEDS: ATORVASTATIN 40 MG TAB PO SCH (09:00)
[2021-04-15] MEDS: FINASTERIDE 5 MG TAB PO SCH (09:00)
[2021-04-15] MEDS: FLUTICASONE FUROATE 100MCG 14 PUFFS/INHALER INH SCH (09:00)
[2021-04-15] MEDS: FOLIC ACID 1 MG TAB PO SCH (09:01)
[2021-04-15] MEDS: buPROPion HCl 100 MG TABLET PO SCH (09:01)
[2021-04-15] MEDS: CYANOCOBALAMIN 500 MCG TABLET (VITAMIN B-12) PO SCH (09:01)
[2021-04-15] MEDS: HYDROCORTISONE 1% CRM 30 GM TUBE EXT SCH ×2 (09:10→20:08)
[2021-04-15] MEDS: DICLOFENAC SOD 1% GEL 100 GM TUBE EXT SCH ×4 (09:11→20:08)
[2021-04-15] MEDS: POLYETHYLENE (MIRALAX) 17 GM PACK PO SCH (09:22)
[2021-04-15] MEDS: DOCUSATE SODIUM/SENNA 50/8.6MG TAB PO SCH (09:24)
[2021-04-15] MEDS: LANSOPRAZOLE 30 MG SOLTAB PO SCH (09:24)
[2021-04-15] MEDS: MICONAZOLE NITRATE POWDER 43 GM EXT SCH ×2 (11:01→20:08)
--- NOTE | 2021-04-15 17:53 | Hospitalist Progress Note ---
Date of Service April 15, 2021 Assessment & Plan (1) Fall: Plan: Suspect the patient's falls are multifactorial: generalized deconditioning, profound orthostatic hypotension He has frequent falls at home and uses a wheelchair but does stand and pivot to get in BP dropped to 70s systolic with PT eval on 03/18 and was symptomatic. Dropped to the 50s systolic on 03/24 with lightheadedness Hgb initially low but then improved -- all without intervention (see below) -Reduced Seroquel from 50mg to 12.5mg but subsequently increased back to 25mg given irritability and agitation. Pt much more pleasant on higher dose of Seroquel added midodrine and titrated up to current 7.5 mg TID and will monitor -home metoprolol stopped (BP/HR stable) -PT/OT evaluations completed and recommending inpatient rehab versus SNF--> case mgmt on board but no beds and proving to be extremely difficult (2) Anemia: Plan: hgb was 7.3 on arrival -- up to 10.1 without intervention/no transfusion- has yo-yo'ed between 8-10. 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 On 03/31-- plavix held given that drop in Hgb. Have since restarted Plavix -patient on PPI -Hgb stable -labs will need followed upon D/C (and occasionally while he remains in house depending on how long patient is here) -EGD on 04/13 - dilated esophagus due to benign appearing esophageal stenosis; gastritis with biopsy obtained - likely repeat endoscopy x 2 weeks for retreatment -- Pathology - chronic gastritis, mild; neg H. pylori, no metaplasia, dysplasia, or malignancy (3) Hypotension: Plan: As above, now stable for some time with addition of midodrine - improved with titration to 7.5 mg TID -Discontinued metoprolol -continue midodrine 7.5 mg (4) Dysphagia: Plan: Had complaint of feeling like food is getting stuck with swallowing on 04/06 Has had intermittent episodes of vomiting after taking pills throughout his hospital stay Has a h/o esophageal strictures requiring dilatation in 2017 He would not be able to withstand a barium swallow as he cannot stand up for more than a few seconds to a minute at a time Tolerating full liquids diet now while awaiting EGD -Continue Prevacid -changed bigger pills to liquids - GI following - appreciate assistance (5) CKD (chronic kidney disease) stage 2, GFR 60-89 ml/min: Plan: Renal function appears to be at baseline in this patient, continue to monitor periodically (6) Chronic hypoxemic respiratory failure: Plan: chronic. No acute issues continue O2 prn (7) COPD (chronic obstructive pulmonary disease) with chronic bronchitis: Plan: Patient with a history of COPD, still smoking despite lung cancer diagnosis ? reoccurrence of non-small cell lung CA on imaging Trelegy (ICS/AC/LABA) as an outpatient We will substitute Anoro Ellipta (AC/LABA) and Arnuity Ellipta (ICS) while inpatient Oxygenating well on room air Supplemental oxygen as needed to maintain SaO2 between 88 and 92%-has not needed O2 in a long time pulmonology consulted-- appreciate recommendations. 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 Morin's input given asymptomatic status- no intervention. Was tapped in the past. f/u as outpt with PULM (10) Hyponatremia: Plan: Na+ 131, perhaps due to poor hydration orally Follow BMP routinely (11) Peripheral arterial disease: Plan: Patient should be on antiplatelet/statin, started Plavix and statin History of aortofemoral bypass per prior notes -plan to restart Plavix after EGD (12) Bilateral carotid artery occlusion: Plan: as above,started Plavix and statin (13) Unstageable pressure ulcer of left heel: Plan: XR ankle to assess for OM, no surrounding cellulitis Skin care per nursing protocol (14) Bipolar disorder: Plan: stable continue depakote but changed to liquid as tabs large and hard to swallow -continue reduced dose of seroquel and wellbutrin (15) Constipation: Plan: bowel protocol ordered on board; adequate bowel movements continue senna/docusate Continue Miralax daily (16) Right shoulder pain: Plan: started Voltaren gel to right shoulder (17) Candidal intertrigo: Plan: changed Nystatin ointment to miconazole powder as was not improving after 2 weeks (18) Seborrhea: Plan: ears bilat -start hydrocortisone cream bid x 2 week course to ears (04/26) Plan: Disposition: Patient will need longterm facility or inpatient rehab. Lives alone in [facility] and is quite debilitated, unable to care for self. Working with case management. still looking for rehab placement-no beds available, multiple referrals out Medically stable for discharge sister updated on 04/13 - Tanna is patient's sister not friend as depicted in chart. Admission and Anticipated Discharge Date Admission Date: March 20, 2021 Review of Systems Review of Systems: REVIEW OF SYSTEMS General/Constitutional: Denies fever/chills ENT: Denies sore throat or trouble swallowing Cardiovascular: Denies chest pain, palpitations, edema Respiratory: Denies cough, SOB GI: Denies nausea, vomiting, abdominal pain, constipation, diarrhea : Denies dysuria Musculoskeletal: Denies joint/muscle aches Neurologic: Denies dizziness/lightheadedness Physical Exam Physical Exam: PHYSICAL EXAM General Appearance: WDWN in NAD who is A&O x 3 HEENT: Head is normocephalic/atraumatic; Hearing grossly intact Neck: Supple; Trachea midline; Neg JVD Heart: RRR with no M/G/R Lungs: CTA in all lung goldberg bilaterally but diminished at bases bilaterally; Respirations unlabored; Neg accessory muscle use Abdomen: Soft, non-tender, non-distended; Positive BS x 4 quadrants Extremities: Neg cyanosis or edema Neurological: Speech clear; Gross motor/sensory function intact; Neg focal neurologic deficits Psychiatric: Appropriate mood/affect Skin: Normal Color; Warm/Dry Results & Data Results & Data ([facility]) Vital Signs (Past 12 Hours) Vital Signs Temp Pulse Resp BP Pulse Ox 04/15/21 14:47 36.4 C L 92 H 16 124/80 97 04/15/21 07:23 36.8 C 80 16 119/76 94 PG Care Time/CCT Total # of Minutes Spent Total Time Spent with Patient: Total time spent is greater than 50% in coordination of care (as documented) at patient's floor/unit and/or counseling patient: Coding Level of Care Code 18001 Subseq Hosp Care Lvl 2 Diagnoses Fall W19.XXXA Encounter type: initial encounter Anemia D64.9 Hypotension I95.9 Dysphagia R13.10 CKD (chronic kidney disease) stage 2, GFR 60-89 ml/min N18.2 Chronic hypoxemic respiratory failure J96.11 COPD (chronic obstructive pulmonary disease) with chronic bronchitis J44.9 History of lung cancer Z85.118 Recurrent left pleural effusion J90 Hyponatremia E87.1 Peripheral arterial disease I73.9 Bilateral carotid artery occlusion I65.23 Unstageable pressure ulcer of left heel L89.620 Bipolar disorder F31.9 Most recent bipolar episode type: most recent episode unspecified type Constipation K59.00 Right shoulder pain M25.511 Candidal intertrigo B37.2 Seborrhea L21.9 (1) Fall Encounter type: initial encounter Qualified Code(s): W19.XXXA - Unspecified fall, initial encounter (2) Bipolar disorder Most recent bipolar episode type: most recent episode unspecified type
[2021-04-15] MEDS: VALPROIC ACID SOLN 500 MG/10 ML UDC PO SCH (20:07)
[2021-04-15] MEDS: QUEtiapine FUMARATE 25 MG TABLET PO SCH (20:08)
[2021-04-16] MEDS: FERROUS SULFATE ELIX 220MG/5ML PO SCH ×2 (09:01→16:13)
[2021-04-16] MEDS: MIDODRINE HCL 2.5 MG TAB PO SCH ×3 (09:02→16:13)
[2021-04-16] MEDS: UMECLIDINIUM/VILANTEROL 62.5/25MCG 7 PUFFS/INHALER INH SCH (09:03)
[2021-04-16] MEDS: FLUTICASONE FUROATE 100MCG 14 PUFFS/INHALER INH SCH (09:04)
[2021-04-16] MEDS: DICLOFENAC SOD 1% GEL 100 GM TUBE EXT SCH ×4 (09:06→21:18)
[2021-04-16] MEDS: ATORVASTATIN 40 MG TAB PO SCH (09:08)
[2021-04-16] MEDS: FINASTERIDE 5 MG TAB PO SCH (09:08)
[2021-04-16] MEDS: buPROPion HCl 100 MG TABLET PO SCH (09:08)
[2021-04-16] MEDS: CYANOCOBALAMIN 500 MCG TABLET (VITAMIN B-12) PO SCH (09:09)
[2021-04-16] MEDS: DOCUSATE SODIUM/SENNA 50/8.6MG TAB PO SCH (09:09)
[2021-04-16] MEDS: FOLIC ACID 1 MG TAB PO SCH (09:09)
[2021-04-16] MEDS: LANSOPRAZOLE 30 MG SOLTAB PO SCH (09:19)
[2021-04-16] MEDS: HYDROCORTISONE 1% CRM 30 GM TUBE EXT SCH ×2 (09:19→21:14)
[2021-04-16] MEDS: ONDANSETRON INJ 2 MG/ML 2 ML VIAL IV PRN (09:34)
[2021-04-16] MEDS: CLOPIDOGREL BISULFATE 75 MG TAB PO SCH (10:11)
[2021-04-16] MEDS: VALPROIC ACID SOLN 250 MG/5 ML UDC PO SCH (10:15)
[2021-04-16] MEDS: POLYETHYLENE (MIRALAX) 17 GM PACK PO SCH (10:17)
[2021-04-16] MEDS: MICONAZOLE NITRATE POWDER 43 GM EXT SCH ×2 (10:17→21:14)
--- NOTE | 2021-04-16 10:58 | Hospitalist Progress Note ---
Date of Service April 16, 2021 Assessment & Plan (1) Fall: Plan: Suspect the patient's falls are multifactorial: generalized deconditioning, profound orthostatic hypotension He has frequent falls at home and uses a wheelchair but does stand and pivot to get in BP dropped to 70s systolic with PT eval on 03/18 and was symptomatic. Dropped to the 50s systolic on 03/24 with lightheadedness Hgb initially low but then improved -- all without intervention (see below) -Reduced Seroquel from 50mg to 12.5mg but subsequently increased back to 25mg given irritability and agitation. Pt much more pleasant on higher dose of Seroquel added midodrine and titrated up to current 7.5 mg TID and will monitor -home metoprolol stopped (BP/HR stable) -PT/OT evaluations completed and recommending inpatient rehab versus SNF--> case mgmt on board but no beds and proving to be extremely difficult (2) Anemia: Plan: hgb was 7.3 on arrival -- up to 10.1 without intervention/no transfusion- has yo-yo'ed between 8-10. 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 On 03/31-- plavix held given that drop in Hgb. Have since restarted Plavix -patient on PPI -Hgb stable -labs will need followed upon D/C (and occasionally while he remains in house depending on how long patient is here) -EGD on 04/13 - dilated esophagus due to benign appearing esophageal stenosis; gastritis with biopsy obtained - likely repeat endoscopy x 2 weeks for retreatment -- Pathology - chronic gastritis, mild; neg H. pylori, no metaplasia, dysplasia, or malignancy (3) Hypotension: Plan: As above, now stable for some time with addition of midodrine - improved with titration to 7.5 mg TID -Discontinued metoprolol -continue midodrine 7.5 mg (4) Dysphagia: Plan: Had complaint of feeling like food is getting stuck with swallowing on 04/06 Has had intermittent episodes of vomiting after taking pills throughout his hospital stay Has a h/o esophageal strictures requiring dilatation in 2017 He would not be able to withstand a barium swallow as he cannot stand up for more than a few seconds to a minute at a time - Tolerating diet -Continue Prevacid -changed bigger pills to liquids - GI following - appreciate assistance (5) CKD (chronic kidney disease) stage 2, GFR 60-89 ml/min: Plan: Renal function appears to be at baseline in this patient, continue to monitor periodically (6) Chronic hypoxemic respiratory failure: Plan: chronic. No acute issues continue O2 prn (7) COPD (chronic obstructive pulmonary disease) with chronic bronchitis: Plan: Patient with a history of COPD, still smoking despite lung cancer diagnosis ? reoccurrence of non-small cell lung CA on imaging Trelegy (ICS/AC/LABA) as an outpatient We will substitute Anoro Ellipta (AC/LABA) and Arnuity Ellipta (ICS) while inpatient Oxygenating well on room air Supplemental oxygen as needed to maintain SaO2 between 88 and 92%-has not needed O2 in a long time pulmonology consulted-- appreciate recommendations. 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 Morin's input given asymptomatic status- no intervention. Was tapped in the past. f/u as outpt with PULM (10) Hyponatremia: Plan: Na+ 131, perhaps due to poor hydration orally Follow BMP routinely (11) Peripheral arterial disease: Plan: Patient should be on antiplatelet/statin, started Plavix and statin History of aortofemoral bypass per prior notes (12) Bilateral carotid artery occlusion: Plan: as above,started Plavix and statin (13) Unstageable pressure ulcer of left heel: Plan: XR ankle to assess for OM, no surrounding cellulitis Skin care per nursing protocol (14) Bipolar disorder: Plan: stable continue depakote but changed to liquid as tabs large and hard to swallow -continue reduced dose of seroquel and wellbutrin (15) Constipation: Plan: bowel protocol ordered on board; adequate bowel movements continue senna/docusate Change Miralax to PRN (16) Right shoulder pain: Plan: started Voltaren gel to right shoulder (17) Candidal intertrigo: Plan: changed Nystatin ointment to miconazole powder as was not improving after 2 weeks (18) Seborrhea: Plan: ears bilat -start hydrocortisone cream bid x 2 week course to ears (04/26) Plan: Disposition: Patient will need shelter facility or inpatient rehab. Lives alone in [facility] and is quite debilitated, unable to care for self. Working with case management. still looking for rehab placement-no beds available, multiple referrals out Medically stable for discharge sister updated on 04/13 will call later today - Tanna is patient's sister not friend as depicted in chart. Admission and Anticipated Discharge Date Admission Date: March 20, 2021 Subjective Reports no complaints today. Tolerating breakfast without difficulty. Denies sore throat or difficulty swallowing. Continues to move his bowels. Still awaiting rehab placement. Review of Systems Review of Systems: REVIEW OF SYSTEMS General/Constitutional: Denies fever/chills ENT: Denies sore throat or trouble swallowing Cardiovascular: Denies chest pain, palpitations, edema Respiratory: Denies cough, SOB GI: Denies nausea, vomiting, abdominal pain, constipation, diarrhea : Denies dysuria Musculoskeletal: Denies joint/muscle aches Neurologic: Denies dizziness/lightheadedness Physical Exam Physical Exam: PHYSICAL EXAM General Appearance: WDWN in NAD who is A&O x 3 HEENT: Head is normocephalic/atraumatic; Hearing grossly intact Neck: Supple; Trachea midline; Neg JVD Heart: RRR with no M/G/R Lungs: CTA in all lung goldberg bilaterally but diminished at bases bilaterally; Respirations unlabored; Neg accessory muscle use Abdomen: Soft, non-tender, non-distended; Positive BS x 4 quadrants Extremities: Neg cyanosis or edema Neurological: Speech clear; Gross motor/sensory function intact; Neg focal neurologic deficits Psychiatric: Appropriate mood/affect Skin: Normal Color; Warm/Dry Results & Data Results & Data ([facility]) Vital Signs (Past 12 Hours) Vital Signs Temp Pulse Resp BP Pulse Ox 04/16/21 07:00 36.8 C 73 12 97/60 L 96 PG Care Time/CCT Total # of Minutes Spent Total Time Spent with Patient: Total time spent is greater than 50% in coordination of care (as documented) at patient's floor/unit and/or counseling patient: Coding Level of Care Code 32942 Subseq Hosp Care Lvl 2 Diagnoses Fall W19.XXXA Encounter type: initial encounter Anemia D64.9 Hypotension I95.9 Dysphagia R13.10 CKD (chronic kidney disease) stage 2, GFR 60-89 ml/min N18.2 Chronic hypoxemic respiratory failure J96.11 COPD (chronic obstructive pulmonary disease) with chronic bronchitis J44.9 History of lung cancer Z85.118 Recurrent left pleural effusion J90 Hyponatremia E87.1 Peripheral arterial disease I73.9 Bilateral carotid artery occlusion I65.23 Unstageable pressure ulcer of left heel L89.620 Bipolar disorder F31.9 Most recent bipolar episode type: most recent episode unspecified type Constipation K59.00 Right shoulder pain M25.511 Candidal intertrigo B37.2 Seborrhea L21.9 (1) Fall Encounter type: initial encounter Qualified Code(s): W19.XXXA - Unspecified fall, initial encounter (2) Bipolar disorder Most recent bipolar episode type: most recent episode unspecified type
[2021-04-16] MEDS ORDERED: POLYETHYLENE (MIRALAX) 17 GM PACK PO PRN (10:59)
[2021-04-16] MEDS: VALPROIC ACID SOLN 500 MG/10 ML UDC PO SCH (21:15)
[2021-04-16] MEDS: QUEtiapine FUMARATE 25 MG TABLET PO SCH (21:15)
[2021-04-17 06:17] LABS: Hematocrit (blood only) 27.4 % (42-52); Hemoglobin 8.9 g/dL (14.0-18.0); Mean Corpuscular Hemoglobin 25.8 pg (25-34); Mean Corpuscular Hgb Conc 32.5 g/dL (32-36); Mean Corpuscular Volume 79.4 fL (80-100); Mean Platelet Volume 8.5 fL (7.4-10.4); Platelet Count 239 K/uL (130-400); RDW Coefficient of Variation 18.9 % (11.5-14.5); RDW Standard Deviation 55.4 fL (36.4-46.3); Red Blood Count 3.45 M/uL (4.7-6.1); White Blood Count 5.63 K/uL (4.8-10.8)
[2021-04-17 07:02] LABS: BUN Creatinine Ratio 21.9 (10-20); Calcium 9.1 mg/dl (8.5-10.1); Creatinine Clr Calc Pharmacy 93.1 ml/min; Est GFR (African American) 115.2 ml/min; Est GFR (Non-African American) 99.4 ml/min; Potassium 4.2 mmol/L (3.5-5.1)
[2021-04-17] MEDS: FERROUS SULFATE ELIX 220MG/5ML PO SCH ×2 (07:49→19:06)
[2021-04-17] MEDS: MIDODRINE HCL 2.5 MG TAB PO SCH ×3 (08:04→19:08)
[2021-04-17] MEDS: CYANOCOBALAMIN 500 MCG TABLET (VITAMIN B-12) PO SCH (10:38)
[2021-04-17] MEDS: CLOPIDOGREL BISULFATE 75 MG TAB PO SCH (10:38)
[2021-04-17] MEDS: ATORVASTATIN 40 MG TAB PO SCH (10:38)
[2021-04-17] MEDS: DICLOFENAC SOD 1% GEL 100 GM TUBE EXT SCH ×4 (10:39→21:36)
[2021-04-17] MEDS: DOCUSATE SODIUM/SENNA 50/8.6MG TAB PO SCH (10:39)
[2021-04-17] MEDS: FOLIC ACID 1 MG TAB PO SCH (10:39)
[2021-04-17] MEDS: VALPROIC ACID SOLN 250 MG/5 ML UDC PO SCH (10:43)
[2021-04-17] MEDS: HYDROCORTISONE 1% CRM 30 GM TUBE EXT SCH ×2 (10:45→21:37)
[2021-04-17] MEDS: LANSOPRAZOLE 30 MG SOLTAB PO SCH (10:47)
[2021-04-17] MEDS: FINASTERIDE 5 MG TAB PO SCH (10:51)
[2021-04-17] MEDS: MICONAZOLE NITRATE POWDER 43 GM EXT SCH ×2 (10:52→21:37)
--- NOTE | 2021-04-17 11:13 | Hospitalist Progress Note ---
Date of Service April 17, 2021 Assessment & Plan (1) Fall: Plan: Suspect the patient's falls are multifactorial: generalized deconditioning, profound orthostatic hypotension He has frequent falls at home and uses a wheelchair but does stand and pivot to get in BP dropped to 70s systolic with PT eval on 03/18 and was symptomatic. Dropped to the 50s systolic on 03/24 with lightheadedness Hgb initially low but then improved -- all without intervention (see below) -Reduced Seroquel from 50mg to 12.5mg but subsequently increased back to 25mg given irritability and agitation. Pt much more pleasant on higher dose of Seroquel added midodrine and titrated up to current 7.5 mg TID and will monitor -home metoprolol stopped (BP/HR stable) -PT/OT evaluations completed and recommending inpatient rehab versus SNF--> case mgmt on board but no beds and proving to be extremely difficult (2) Anemia: Plan: hgb was 7.3 on arrival -- up to 10.1 without intervention/no transfusion- has yo-yo'ed between 8-10. 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 On 03/31-- plavix held given that drop in Hgb. Have since restarted Plavix -patient on PPI -Hgb stable -labs will need followed upon D/C (and occasionally while he remains in house depending on how long patient is here) -EGD on 04/13 - dilated esophagus due to benign appearing esophageal stenosis; gastritis with biopsy obtained - likely repeat endoscopy x 2 weeks for retreatment -- Pathology - chronic gastritis, mild; neg H. pylori, no metaplasia, dysplasia, or malignancy (3) Hypotension: Plan: As above, now stable for some time with addition of midodrine - improved with titration to 7.5 mg TID -Discontinued metoprolol -continue midodrine 7.5 mg (4) Dysphagia: Plan: Had complaint of feeling like food is getting stuck with swallowing on 04/06 Has had intermittent episodes of vomiting after taking pills throughout his hospital stay Has a h/o esophageal strictures requiring dilatation in 2017 He would not be able to withstand a barium swallow as he cannot stand up for more than a few seconds to a minute at a time - Tolerating diet -Continue Prevacid -changed bigger pills to liquids - GI following - appreciate assistance (5) CKD (chronic kidney disease) stage 2, GFR 60-89 ml/min: Plan: Renal function appears to be at baseline in this patient, continue to monitor periodically (6) Chronic hypoxemic respiratory failure: Plan: chronic. No acute issues continue O2 prn (7) COPD (chronic obstructive pulmonary disease) with chronic bronchitis: Plan: Patient with a history of COPD, still smoking despite lung cancer diagnosis ? reoccurrence of non-small cell lung CA on imaging Trelegy (ICS/AC/LABA) as an outpatient We will substitute Anoro Ellipta (AC/LABA) and Arnuity Ellipta (ICS) while inpatient Oxygenating well on room air Supplemental oxygen as needed to maintain SaO2 between 88 and 92%-has not needed O2 in a long time pulmonology consulted-- appreciate recommendations. 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 Morin's input given asymptomatic status- no intervention. Was tapped in the past. f/u as outpt with PULM (10) Hyponatremia: Plan: Na+ 131, perhaps due to poor hydration orally Follow BMP routinely (11) Peripheral arterial disease: Plan: Patient should be on antiplatelet/statin, started Plavix and statin History of aortofemoral bypass per prior notes (12) Bilateral carotid artery occlusion: Plan: as above,started Plavix and statin (13) Unstageable pressure ulcer of left heel: Plan: XR ankle to assess for OM, no surrounding cellulitis Skin care per nursing protocol (14) Bipolar disorder: Plan: stable continue depakote but changed to liquid as tabs large and hard to swallow -continue reduced dose of seroquel and wellbutrin (15) Constipation: Plan: bowel protocol ordered on board; adequate bowel movements continue senna/docusate Change Miralax to PRN (16) Right shoulder pain: Plan: started Voltaren gel to right shoulder (17) Candidal intertrigo: Plan: changed Nystatin ointment to miconazole powder as was not improving after 2 weeks (18) Seborrhea: Plan: ears bilat -start hydrocortisone cream bid x 2 week course to ears (04/26) Plan: Disposition: Patient will need fpc facility or inpatient rehab. Lives alone in [facility] and is quite debilitated, unable to care for self. Working with case management. still looking for rehab placement-no beds available, multiple referrals out Medically stable for discharge sister updated on 04/13 will call later today - Tanna is patient's sister not friend as depicted in chart. Admission and Anticipated Discharge Date Admission Date: March 20, 2021 Subjective Reports doing well this morning. Just does not enjoy taking pills but seems to be tolerating food without issue. He verbalizes no complaints. BP is variable but seems to be asymptomatic at rest at least. Sodium is slightly low on AM labs and will monitor Review of Systems Review of Systems: All systems reviewed & are unremarkable except as noted in Subjective Physical Exam Physical Exam: PHYSICAL EXAM General Appearance: pale/frail male in NAD who is A&O x 3 HEENT: Head is normocephalic/atraumatic; Hearing grossly intact Neck: Supple; Trachea midline; Neg JVD Heart: RRR with no M/G/R Lungs: CTA in all lung goldberg bilaterally but diminished at bases bilaterally; Respirations unlabored; Neg accessory muscle use Abdomen: Soft, non-tender, non-distended; Positive BS x 4 quadrants Extremities: Neg cyanosis or edema Neurological: Speech clear; Gross motor/sensory function intact; Neg focal neurologic deficits Psychiatric: Appropriate mood/affect Skin: Normal Color; Warm/Dry Results & Data Results & Data ([facility]) Vital Signs (Past 12 Hours) Vital Signs Temp Pulse Resp BP Pulse Ox 04/17/21 07:56 36.6 C 71 18 87/53 L 96 PG Care Time/CCT Total # of Minutes Spent Total Time Spent with Patient: Total time spent is greater than 50% in coordination of care (as documented) at patient's floor/unit and/or counseling patient: Coding Level of Care Code 47517 Subseq Hosp Care Lvl 2 Diagnoses Fall W19.XXXA Encounter type: initial encounter Anemia D64.9 Hypotension I95.9 Dysphagia R13.10 CKD (chronic kidney disease) stage 2, GFR 60-89 ml/min N18.2 Chronic hypoxemic respiratory failure J96.11 COPD (chronic obstructive pulmonary disease) with chronic bronchitis J44.9 History of lung cancer Z85.118 Recurrent left pleural effusion J90 Hyponatremia E87.1 Peripheral arterial disease I73.9 Bilateral carotid artery occlusion I65.23 Unstageable pressure ulcer of left heel L89.620 Bipolar disorder F31.9 Most recent bipolar episode type: most recent episode unspecified type Constipation K59.00 Right shoulder pain M25.511 Candidal intertrigo B37.2 Seborrhea L21.9 (1) Bipolar disorder Most recent bipolar episode type: most recent episode unspecified type (2) Fall Encounter type: initial encounter Qualified Code(s): W19.XXXA - Unspecified fall, initial encounter
[2021-04-17] MEDS: UMECLIDINIUM/VILANTEROL 62.5/25MCG 7 PUFFS/INHALER INH SCH (15:16)
[2021-04-17] MEDS: FLUTICASONE FUROATE 100MCG 14 PUFFS/INHALER INH SCH (15:16)
[2021-04-17] MEDS: buPROPion HCl 100 MG TABLET PO SCH (15:19)
[2021-04-17] MEDS: VALPROIC ACID SOLN 500 MG/10 ML UDC PO SCH (21:37)
[2021-04-17] MEDS: QUEtiapine FUMARATE 25 MG TABLET PO SCH (21:37)
[2021-04-17] MEDS: ALBUTEROL HFA 8 GM INHALER INH PRN (21:53)
[2021-04-18] MEDS: FERROUS SULFATE ELIX 220MG/5ML PO SCH ×2 (08:55→17:13)
[2021-04-18] MEDS: MIDODRINE HCL 2.5 MG TAB PO SCH ×4 (08:56→23:41)
[2021-04-18] MEDS: ATORVASTATIN 40 MG TAB PO SCH (08:57)
[2021-04-18] MEDS: buPROPion HCl 100 MG TABLET PO SCH (08:57)
[2021-04-18] MEDS: CYANOCOBALAMIN 500 MCG TABLET (VITAMIN B-12) PO SCH ×2 (08:58→16:49)
[2021-04-18] MEDS: CLOPIDOGREL BISULFATE 75 MG TAB PO SCH (08:58)
[2021-04-18] MEDS: FINASTERIDE 5 MG TAB PO SCH (08:59)
[2021-04-18] MEDS: DOCUSATE SODIUM/SENNA 50/8.6MG TAB PO SCH (08:59)
[2021-04-18] MEDS: FLUTICASONE FUROATE 100MCG 14 PUFFS/INHALER INH SCH (09:00)
[2021-04-18] MEDS: FOLIC ACID 1 MG TAB PO SCH (09:01)
[2021-04-18] MEDS: UMECLIDINIUM/VILANTEROL 62.5/25MCG 7 PUFFS/INHALER INH SCH (09:02)
[2021-04-18] MEDS: LANSOPRAZOLE 30 MG SOLTAB PO SCH (09:02)
[2021-04-18] MEDS: VALPROIC ACID SOLN 250 MG/5 ML UDC PO SCH (09:03)
[2021-04-18] MEDS: HYDROCORTISONE 1% CRM 30 GM TUBE EXT SCH ×2 (11:08→20:45)
[2021-04-18] MEDS: MICONAZOLE NITRATE POWDER 43 GM EXT SCH ×2 (11:08→20:48)
[2021-04-18] MEDS: DICLOFENAC SOD 1% GEL 100 GM TUBE EXT SCH ×4 (11:22→20:45)
--- NOTE | 2021-04-18 12:39 | Hospitalist Progress Note ---
Date of Service April 18, 2021 Assessment & Plan (1) Fall: Plan: Suspect the patient's falls are multifactorial: generalized deconditioning, profound orthostatic hypotension He has frequent falls at home and uses a wheelchair but does stand and pivot to get in BP dropped to 70s systolic with PT eval on 03/18 and was symptomatic. Dropped to the 50s systolic on 03/24 with lightheadedness Hgb initially low but then improved -- all without intervention (see below) -Reduced Seroquel from 50mg to 12.5mg but subsequently increased back to 25mg given irritability and agitation. Pt much more pleasant on higher dose of Seroquel added midodrine and titrated up to current 7.5 mg TID and will monitor -home metoprolol stopped (BP/HR stable) -PT/OT evaluations completed and recommending inpatient rehab versus SNF--> case mgmt on board but no beds and proving to be extremely difficult (2) Anemia: Plan: hgb was 7.3 on arrival -- up to 10.1 without intervention/no transfusion- has yo-yo'ed between 8-10. Most likely margin of error in the lab Microcytic stool for occult blood negative x 2 Did have a W/U and Seen by established prototype machine operator/oncologist-- started on Ferrous sulfate/folic acid and B12 -- Given difficulty with swallowing pills - will hold B12 for now as this was WNL; continue folic as it was low -- May do better if he does have another dilatation? 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 On 03/31-- plavix held given that drop in Hgb. Have since restarted Plavix -patient on PPI -Hgb stable -labs will need followed upon D/C (and occasionally while he remains in house depending on how long patient is here) -EGD on 04/13 - dilated esophagus due to benign appearing esophageal stenosis; gastritis with biopsy obtained - likely repeat endoscopy x 2 weeks for retreatment -- Pathology - chronic gastritis, mild; neg H. pylori, no metaplasia, dysplasia, or malignancy (3) Hypotension: Plan: As above, now stable for some time with addition of midodrine - improved with titration to 7.5 mg TID -Discontinued metoprolol -continue midodrine 7.5 mg (4) Dysphagia: Plan: Had complaint of feeling like food is getting stuck with swallowing on 04/06 Has had intermittent episodes of vomiting after taking pills throughout his hospital stay - last two days it seems like the Lansoprazole is what he keeps spitting out - tried to re-iterate to let it dissolve not try to swallow whole Has a h/o esophageal strictures requiring dilatation in 2017 He would not be able to withstand a barium swallow as he cannot stand up for more than a few seconds to a minute at a time - Tolerating diet -Continue Prevacid -changed bigger pills to liquids - GI following - appreciate assistance (5) CKD (chronic kidney disease) stage 2, GFR 60-89 ml/min: Plan: Renal function appears to be at baseline in this patient, continue to monitor periodically (6) Chronic hypoxemic respiratory failure: Plan: chronic. No acute issues continue O2 prn (7) COPD (chronic obstructive pulmonary disease) with chronic bronchitis: Plan: Patient with a history of COPD, still smoking despite lung cancer diagnosis ? reoccurrence of non-small cell lung CA on imaging Trelegy (ICS/AC/LABA) as an outpatient We will substitute Anoro Ellipta (AC/LABA) and Arnuity Ellipta (ICS) while inpatient Oxygenating well on room air Supplemental oxygen as needed to maintain SaO2 between 88 and 92%-has not needed O2 in a long time pulmonology consulted-- appreciate recommendations. 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 Was tapped in the past. f/u as outpt with PULM (10) Hyponatremia: Plan: Na+ 129, perhaps due to poor hydration orally Follow BMP routinely (11) Peripheral arterial disease: Plan: Patient should be on antiplatelet/statin, started Plavix and statin History of aortofemoral bypass per prior notes (12) Bilateral carotid artery occlusion: Plan: as above,started Plavix and statin (13) Unstageable pressure ulcer of left heel: Plan: XR ankle to assess for OM, no surrounding cellulitis Skin care per nursing protocol (14) Bipolar disorder: Plan: stable continue depakote but changed to liquid as tabs large and hard to swallow -continue reduced dose of seroquel and wellbutrin (15) Constipation: Plan: bowel protocol ordered on board; adequate bowel movements continue senna/docusate Changed Miralax to PRN (16) Right shoulder pain: Plan: - Voltaren gel to right shoulder (17) Candidal intertrigo: Plan: changed Nystatin ointment to miconazole powder as was not improving after 2 weeks (18) Seborrhea: Plan: ears bilat -start hydrocortisone cream bid x 2 week course to ears (04/26) Plan: Disposition: Patient will need assisted facility or inpatient rehab. Lives alone in [facility] and is quite debilitated, unable to care for self. Working with case management. still looking for rehab placement-no beds available, multiple referrals out Medically stable for discharge sister updated on 04/17 - Tanna is patient's sister not friend as depicted in chart. Admission and Anticipated Discharge Date Admission Date: March 20, 2021 Subjective Reports doing well this AM minus dealing with his pills. Yesterday and today he wants to spit out the Lansoprazole, not sure if he is trying to swallow it but keep re-iterating it is a dissolvable tablet in the mouth. He reports he isnt having any issues with food at this point. He did a small emesis with his pills and looks like it was some of the oatmeal he was trying to eat. He is moving his bowels. No abdominal pain. He verbalizes no other complaints at this time Review of Systems Review of Systems: All systems reviewed & are unremarkable except as noted in Subjective Physical Exam Physical Exam: PHYSICAL EXAM General Appearance: pale/frail male in NAD who is A&O x 3 HEENT: Head is normocephalic/atraumatic; Hearing grossly intact Neck: Supple; Trachea midline; Neg JVD Heart: RRR with no M/G/R Lungs: CTA in all lung goldberg bilaterally but diminished at bases bilaterally; Respirations unlabored; Neg accessory muscle use Abdomen: Soft, non-tender, non-distended; Positive BS x 4 quadrants Extremities: Neg cyanosis or edema Neurological: Speech clear; Gross motor/sensory function intact; Neg focal neurologic deficits Psychiatric: Appropriate mood/affect Skin: Normal Color; Warm/Dry Results & Data Results & Data ([facility]) Vital Signs (Past 12 Hours) Vital Signs Temp Pulse Resp BP Pulse Ox 04/18/21 07:49 36.5 C 79 19 115/73 96 PG Care Time/CCT Total # of Minutes Spent Total Time Spent with Patient: Total time spent is greater than 50% in coordination of care (as documented) at patient's floor/unit and/or counseling patient: Coding Level of Care Code 01522 Subseq Hosp Care Lvl 2 Diagnoses Fall W19.XXXA Encounter type: initial encounter Anemia D64.9 Hypotension I95.9 Dysphagia R13.10 CKD (chronic kidney disease) stage 2, GFR 60-89 ml/min N18.2 Chronic hypoxemic respiratory failure J96.11 COPD (chronic obstructive pulmonary disease) with chronic bronchitis J44.9 History of lung cancer Z85.118 Recurrent left pleural effusion J90 Hyponatremia E87.1 Peripheral arterial disease I73.9 Bilateral carotid artery occlusion I65.23 Unstageable pressure ulcer of left heel L89.620 Bipolar disorder F31.9 Most recent bipolar episode type: most recent episode unspecified type Constipation K59.00 Right shoulder pain M25.511 Candidal intertrigo B37.2 Seborrhea L21.9 (1) Fall Encounter type: initial encounter Qualified Code(s): W19.XXXA - Unspecified fall, initial encounter (2) Bipolar disorder Most recent bipolar episode type: most recent episode unspecified type
[2021-04-18] MEDS: ACETAMINOPHEN 500 MG TAB PO PRN (16:54)
[2021-04-18] MEDS: ALBUT/IPRATROP 3MG/0.5MG NEB 3 ML VIAL NEB PRN (20:04)
[2021-04-18] MEDS: VALPROIC ACID SOLN 500 MG/10 ML UDC PO SCH (20:48)
[2021-04-18] MEDS: QUEtiapine FUMARATE 25 MG TABLET PO SCH (20:49)
[2021-04-19] MEDS: SODIUM CHLORIDE 0.9% 1000ML 1,000 ML IV SCH (01:05)
[2021-04-19 09:19] LABS: Hematocrit (blood only) 28.8 % (42-52); Hemoglobin 9.5 g/dL (14.0-18.0); Mean Corpuscular Volume 78.9 fL (80-100); Mean Platelet Volume 8.8 fL (7.4-10.4); Platelet Count 253 K/uL (130-400); RDW Coefficient of Variation 18.4 % (11.5-14.5); RDW Standard Deviation 54.3 fL (36.4-46.3); Red Blood Count 3.65 M/uL (4.7-6.1); White Blood Count 4.27 K/uL (4.8-10.8)
[2021-04-19 09:35] LABS: BUN Creatinine Ratio 18.3 (10-20); Creatinine Clr Calc Pharmacy 91.7 ml/min; Est GFR (African American) 114.5 ml/min; Est GFR (Non-African American) 98.8 ml/min; Potassium 4.1 mmol/L (3.5-5.1)
[2021-04-19] MEDS: MIDODRINE HCL 2.5 MG TAB PO SCH ×3 (09:39→17:43)
[2021-04-19] MEDS: FLUTICASONE FUROATE 100MCG 14 PUFFS/INHALER INH SCH (09:40)
[2021-04-19] MEDS: UMECLIDINIUM/VILANTEROL 62.5/25MCG 7 PUFFS/INHALER INH SCH (09:40)
[2021-04-19] MEDS: FERROUS SULFATE ELIX 220MG/5ML PO SCH ×2 (09:42→17:39)
[2021-04-19] MEDS: ACETAMINOPHEN 500 MG TAB PO PRN (09:45)
[2021-04-19] MEDS: buPROPion HCl 100 MG TABLET PO SCH (09:52)
[2021-04-19] MEDS: DICLOFENAC SOD 1% GEL 100 GM TUBE EXT SCH ×4 (10:01→21:39)
[2021-04-19] MEDS: HYDROCORTISONE 1% CRM 30 GM TUBE EXT SCH ×2 (10:02→21:39)
[2021-04-19] MEDS: LANSOPRAZOLE 30 MG SOLTAB PO SCH (10:04)
--- NOTE | 2021-04-19 12:12 | Hospitalist Progress Note ---
Date of Service April 19, 2021 Assessment & Plan (1) Fall: Plan: Suspect the patient's falls are multifactorial: generalized deconditioning, profound orthostatic hypotension He has frequent falls at home and uses a wheelchair but does stand and pivot to get in BP dropped to 70s systolic with PT eval on 03/18 and was symptomatic. Dropped to the 50s systolic on 03/24 with lightheadedness - Had dizziness overnight and given IVF - reported no dizziness during my visit Hgb initially low but then improved -- all without intervention (see below) -Reduced Seroquel from 50mg to 12.5mg but subsequently increased back to 25mg given irritability and agitation. Pt much more pleasant on higher dose of Seroquel added midodrine and titrated up to current 7.5 mg TID and will monitor -home metoprolol stopped (BP/HR stable) -PT/OT evaluations completed and recommending inpatient rehab versus SNF--> case mgmt on board but no beds and proving to be extremely difficult (2) Anemia: Plan: hgb was 7.3 on arrival -- up to 10.1 without intervention/no transfusion- has yo-yo'ed between 8-10. Most likely margin of error in the lab Microcytic stool for occult blood negative x 2 Did have a W/U and Seen by established is analyst/oncologist-- started on Ferrous sulfate/folic acid and B12 -- Given difficulty with swallowing pills - will hold B12 for now as this was WNL; continue folic as it was low -- May do better if he does have another dilatation? 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 On 03/31-- plavix held given that drop in Hgb. Have since restarted Plavix -patient on PPI -Hgb stable -labs will need followed upon D/C (and occasionally while he remains in house depending on how long patient is here) -EGD on 04/13 - dilated esophagus due to benign appearing esophageal stenosis; gastritis with biopsy obtained - likely repeat endoscopy x 2 weeks for retreatment -- Pathology - chronic gastritis, mild; neg H. pylori, no metaplasia, dysplasia, or malignancy (3) Hypotension: Plan: As above, now stable for some time with addition of midodrine - improved with titration to 7.5 mg TID -Discontinued metoprolol -continue midodrine 7.5 mg (4) Dysphagia: Plan: Had complaint of feeling like food is getting stuck with swallowing on 04/06 Has had intermittent episodes of vomiting after taking pills throughout his hospital stay - last two days it seems like the Lansoprazole is what he keeps spitting out - tried to re-iterate to let it dissolve not try to swallow whole. As well it seems like he tends to swallow the applesauce then dry swallow the pill. With more coaching to swallow at the same time he did do better Has a h/o esophageal strictures requiring dilatation in 2017 He would not be able to withstand a barium swallow as he cannot stand up for more than a few seconds to a minute at a time - Tolerating diet -Continue Prevacid -changed bigger pills to liquids - GI following - appreciate assistance (5) CKD (chronic kidney disease) stage 2, GFR 60-89 ml/min: Plan: Renal function appears to be at baseline in this patient, continue to monitor periodically (6) Chronic hypoxemic respiratory failure: Plan: chronic. No acute issues continue O2 prn (7) COPD (chronic obstructive pulmonary disease) with chronic bronchitis: Plan: Patient with a history of COPD, still smoking despite lung cancer diagnosis ? reoccurrence of non-small cell lung CA on imaging Trelegy (ICS/AC/LABA) as an outpatient We will substitute Anoro Ellipta (AC/LABA) and Arnuity Ellipta (ICS) while inpatient Oxygenating well on room air Supplemental oxygen as needed to maintain SaO2 between 88 and 92%-has not needed O2 in a long time pulmonology consulted-- appreciate recommendations. 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 Was tapped in the past. f/u as outpt with PULM (10) Hyponatremia: Plan: - Na down to 128 and will monitor - did have some fluid overnight which may have contributed, likely SIADH given psychiatric medications - will monitor Follow BMP routinely (11) Peripheral arterial disease: Plan: Patient should be on antiplatelet/statin, started Plavix and statin History of aortofemoral bypass per prior notes (12) Bilateral carotid artery occlusion: Plan: as above,started Plavix and statin (13) Unstageable pressure ulcer of left heel: Plan: XR ankle to assess for OM, no surrounding cellulitis Skin care per nursing protocol (14) Bipolar disorder: Plan: stable continue depakote but changed to liquid as tabs large and hard to swallow -continue reduced dose of seroquel and wellbutrin (15) Constipation: Plan: bowel protocol ordered on board; adequate bowel movements continue senna/docusate Changed Miralax to PRN (16) Right shoulder pain: Plan: - Voltaren gel to right shoulder (17) Candidal intertrigo: Plan: changed Nystatin ointment to miconazole powder as was not improving after 2 weeks (18) Seborrhea: Plan: ears bilat -start hydrocortisone cream bid x 2 week course to ears (04/26) Plan: Disposition: Patient will need jail facility or inpatient rehab. Lives alone in [facility] and is quite debilitated, unable to care for self. Working with case management. still looking for rehab placement-no beds available, multiple referrals out Medically stable for discharge sister updated on 04/17 - Tanna is patient's sister not friend as depicted in chart. Admission and Anticipated Discharge Date Admission Date: March 20, 2021 Subjective Reports feeling tired today. Had dizziness overnight and given a bag a fluid. States he wasnt dizzy today. Still having issues with pills. Discussed with nurse as it appears he is swirling the pill in his mouth and swallowing the applesauce first then dry swallowing the pill. With more coaching to swallow with the applesauce he did do better. As well, continues to tolerate his food. He continues to move his bowels. Na slighlty lower today. Verbalizes no complaints Physical Exam Physical Exam: PHYSICAL EXAM General Appearance: pale/frail male in NAD who is A&O x 3 HEENT: Head is normocephalic/atraumatic; Hearing grossly intact Neck: Supple; Trachea midline; Neg JVD Heart: RRR with no M/G/R Lungs: CTA in all lung goldberg bilaterally but diminished at bases bilaterally; Respirations unlabored; Neg accessory muscle use Abdomen: Soft, non-tender, non-distended; Positive BS x 4 quadrants Extremities: Neg cyanosis or edema Neurological: Speech clear; Gross motor/sensory function intact; Neg focal neurologic deficits Psychiatric: Appropriate mood/affect Skin: Normal Color; Warm/Dry Results & Data Results & Data ([facility]) Vital Signs (Past 12 Hours) Vital Signs Pulse BP Pulse Ox 04/19/21 04:45 106/68 04/19/21 00:53 70 149/79 H 99 PG Care Time/CCT Total # of Minutes Spent Total Time Spent with Patient: Total time spent is greater than 50% in coordination of care (as documented) at patient's floor/unit and/or counseling patient: Coding Level of Care Code 43309 Subseq Hosp Care Lvl 2 Diagnoses Fall W19.XXXA Encounter type: initial encounter Anemia D64.9 Hypotension I95.9 Dysphagia R13.10 CKD (chronic kidney disease) stage 2, GFR 60-89 ml/min N18.2 Chronic hypoxemic respiratory failure J96.11 COPD (chronic obstructive pulmonary disease) with chronic bronchitis J44.9 History of lung cancer Z85.118 Recurrent left pleural effusion J90 Hyponatremia E87.1 Peripheral arterial disease I73.9 Bilateral carotid artery occlusion I65.23 Unstageable pressure ulcer of left heel L89.620 Bipolar disorder F31.9 Most recent bipolar episode type: most recent episode unspecified type Constipation K59.00 Right shoulder pain M25.511 Candidal intertrigo B37.2 Seborrhea L21.9 (1) Fall Encounter type: initial encounter Qualified Code(s): W19.XXXA - Unspecified fall, initial encounter (2) Bipolar disorder Most recent bipolar episode type: most recent episode unspecified type
[2021-04-19] MEDS: DOCUSATE SODIUM/SENNA 50/8.6MG TAB PO SCH (12:40)
[2021-04-19] MEDS: ATORVASTATIN 40 MG TAB PO SCH (14:52)
[2021-04-19] MEDS: CLOPIDOGREL BISULFATE 75 MG TAB PO SCH (14:53)
[2021-04-19] MEDS: FOLIC ACID 1 MG TAB PO SCH (14:54)
[2021-04-19] MEDS: MICONAZOLE NITRATE POWDER 43 GM EXT SCH ×2 (14:56→21:40)
[2021-04-19] MEDS: FINASTERIDE 5 MG TAB PO SCH (14:57)
[2021-04-19] MEDS: VALPROIC ACID SOLN 250 MG/5 ML UDC PO SCH (15:00)
[2021-04-19] MEDS: ONDANSETRON INJ 2 MG/ML 2 ML VIAL IV PRN (15:55)
[2021-04-19] MEDS: QUEtiapine FUMARATE 25 MG TABLET PO SCH (21:40)
[2021-04-19] MEDS: VALPROIC ACID SOLN 500 MG/10 ML UDC PO SCH (21:41)
[2021-04-20] MEDS: MIDODRINE HCL 2.5 MG TAB PO SCH ×3 (09:09→17:14)
[2021-04-20] MEDS: FLUTICASONE FUROATE 100MCG 14 PUFFS/INHALER INH SCH (09:11)
[2021-04-20] MEDS: buPROPion HCl 100 MG TABLET PO SCH (09:12)
[2021-04-20] MEDS: CLOPIDOGREL BISULFATE 75 MG TAB PO SCH (09:12)
[2021-04-20] MEDS: ATORVASTATIN 40 MG TAB PO SCH (09:13)
[2021-04-20] MEDS: LANSOPRAZOLE 30 MG SOLTAB PO SCH (09:13)
[2021-04-20] MEDS: FOLIC ACID 1 MG TAB PO SCH (09:13)
[2021-04-20] MEDS: FINASTERIDE 5 MG TAB PO SCH (09:13)
[2021-04-20] MEDS: VALPROIC ACID SOLN 250 MG/5 ML UDC PO SCH (09:16)
[2021-04-20] MEDS: FERROUS SULFATE ELIX 220MG/5ML PO SCH ×2 (09:18→17:14)
[2021-04-20] MEDS: UMECLIDINIUM/VILANTEROL 62.5/25MCG 7 PUFFS/INHALER INH SCH (09:32)
[2021-04-20] MEDS: DICLOFENAC SOD 1% GEL 100 GM TUBE EXT SCH ×4 (09:33→19:48)
[2021-04-20] MEDS: HYDROCORTISONE 1% CRM 30 GM TUBE EXT SCH ×2 (09:34→19:48)
[2021-04-20] MEDS: DOCUSATE SODIUM/SENNA 50/8.6MG TAB PO SCH (12:30)
--- NOTE | 2021-04-20 17:03 | Hospitalist Progress Note ---
Date of Service April 20, 2021 Assessment & Plan (1) Fall: Plan: Suspect the patient's falls are multifactorial: generalized deconditioning, profound orthostatic hypotension He has frequent falls at home and uses a wheelchair but does stand and pivot to get in BP dropped to 70s systolic with PT eval on 03/18 and was symptomatic. Dropped to the 50s systolic on 03/24 with lightheadedness - Had dizziness overnight and given IVF - reported no dizziness during my visit Hgb initially low but then improved -- all without intervention (see below) -Reduced Seroquel from 50mg to 12.5mg but subsequently increased back to 25mg given irritability and agitation. Pt much more pleasant on higher dose of Seroquel added midodrine and titrated up to current 7.5 mg TID and will monitor -home metoprolol stopped (BP/HR stable) -PT/OT evaluations completed and recommending inpatient rehab versus SNF--> case mgmt on board but no beds and proving to be extremely difficult (2) Anemia: Plan: hgb was 7.3 on arrival -- up to 10.1 without intervention/no transfusion- has yo-yo'ed between 8-10. Most likely margin of error in the lab Microcytic stool for occult blood negative x 2 Did have a W/U and Seen by established drivers' cash clerk/oncologist-- started on Ferrous sulfate/folic acid and B12 -- Given difficulty with swallowing pills - will hold B12 for now as this was WNL; continue folic as it was low -- May do better if he does have another dilatation? 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 On 03/31-- plavix held given that drop in Hgb. Have since restarted Plavix -patient on PPI -Hgb stable -labs will need followed upon D/C (and occasionally while he remains in house depending on how long patient is here) -EGD on 04/13 - dilated esophagus due to benign appearing esophageal stenosis; gastritis with biopsy obtained - likely repeat endoscopy x 2 weeks for retreatment on/around 04/27/21 -- Pathology - chronic gastritis, mild; neg H. pylori, no metaplasia, dysplasia, or malignancy (3) Hypotension: Plan: As above, now stable for some time with addition of midodrine - improved with titration to 7.5 mg TID -Discontinued metoprolol -continue midodrine 7.5 mg (4) Dysphagia: Plan: Had complaint of feeling like food is getting stuck with swallowing on 04/06 Has had intermittent episodes of vomiting after taking pills throughout his hospital stay Has a h/o esophageal strictures requiring dilatation in 2017 He would not be able to withstand a barium swallow as he cannot stand up for more than a few seconds to a minute at a time Now s/p esophageal dilatation on 04/13 - Tolerating diet -Continue Prevacid -changed bigger pills to liquids - GI following - appreciate assistance (5) CKD (chronic kidney disease) stage 2, GFR 60-89 ml/min: Plan: Renal function appears to be at baseline in this patient, continue to monitor periodically (6) Chronic hypoxemic respiratory failure: Plan: chronic. No acute issues continue O2 prn (7) COPD (chronic obstructive pulmonary disease) with chronic bronchitis: Plan: Patient with a history of COPD, still smoking despite lung cancer diagnosis ? reoccurrence of non-small cell lung CA on imaging Trelegy (ICS/AC/LABA) as an outpatient We will substitute Anoro Ellipta (AC/LABA) and Arnuity Ellipta (ICS) while inpatient Oxygenating well on room air Supplemental oxygen as needed to maintain SaO2 between 88 and 92%-has not needed O2 in a long time pulmonology consulted-- appreciate recommendations. 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 Was tapped in the past. f/u as outpt with PULM (10) Hyponatremia: Plan: - Na down to 128 and will monitor - did have some fluid overnight which may have contributed, likely SIADH given psychiatric medications - will monitor Follow BMP routinely (11) Peripheral arterial disease: Plan: Patient should be on antiplatelet/statin, started Plavix and statin History of aortofemoral bypass per prior notes (12) Bilateral carotid artery occlusion: Plan: as above,started Plavix and statin (13) Unstageable pressure ulcer of left heel: Plan: XR ankle to assess for OM, no surrounding cellulitis Skin care per nursing protocol (14) Bipolar disorder: Plan: stable continue depakote but changed to liquid as tabs large and hard to swallow -continue reduced dose of seroquel and wellbutrin (15) Constipation: Plan: bowel protocol ordered on board; adequate bowel movements continue senna/docusate Changed Miralax to PRN (16) Right shoulder pain: Plan: - Voltaren gel to right shoulder (17) Candidal intertrigo: Plan: continue miconazole powderto groin bilat (18) Seborrhea: Plan: ears bilat -improved--> continue hydrocortisone cream bid x 2 week course to ears (04/26) Plan: Disposition: Patient will need [facility] facility or inpatient rehab. Lives alone in [facility] and is quite debilitated, unable to care for self. Working with case management. still looking for rehab placement-no beds available, multiple referrals out Medically stable for discharge sister updated on 04/17 - Tanna is patient's sister not friend as depicted in chart. Admission and Anticipated Discharge Date Admission Date: March 20, 2021 Subjective Pt has no complaints, feels he is able to swallow better since esophageal dilatation. Review of Systems Review of Systems: All systems reviewed & are unremarkable except as noted in HPI & below Physical Exam Constitutional: WD/WN, vitals as above Neck: trachea midline, no thyromegaly Respiratory: normal respiratory effort, lungs clear to auscultation normal respiratory effort Auscultation: + diminished lung sounds (at bases) and + wheezes (A few scattered wheezes bilateral) Cardiovascular: RRR, no murmur, no edema Chest (Breasts): Chest: normal inspection of chest Gastrointestinal (Abdomen): normal bowel sounds, soft, nontender, no hepatosplenomegaly Musculoskeletal: Extremities: extremities normal to inspection; no cyanosis and no clubbing Neurologic: moves all extremities and awake; no focal motor deficits Psychiatric: Orientation: alert, oriented to person and cooperative Lymphatic: no lymphedema Results & Data Results & Data ([facility]) Vital Signs (Past 12 Hours) Vital Signs Temp Pulse Resp BP Pulse Ox 04/20/21 07:28 36.3 C L 70 16 114/74 90 PG Care Time/CCT Total # of Minutes Spent Total Time Spent with Patient: Total time spent is greater than 50% in coordination of care (as documented) at patient's floor/unit and/or counseling patient: Coding Level of Care Code 82368 Subseq Hosp Care Lvl 1 Diagnoses Fall W19.XXXA Encounter type: initial encounter Anemia D64.9 Hypotension I95.9 Dysphagia R13.10 CKD (chronic kidney disease) stage 2, GFR 60-89 ml/min N18.2 Chronic hypoxemic respiratory failure J96.11 COPD (chronic obstructive pulmonary disease) with chronic bronchitis J44.9 History of lung cancer Z85.118 Recurrent left pleural effusion J90 Hyponatremia E87.1 Peripheral arterial disease I73.9 Bilateral carotid artery occlusion I65.23 Unstageable pressure ulcer of left heel L89.620 Bipolar disorder F31.9 Most recent bipolar episode type: most recent episode unspecified type Constipation K59.00 Right shoulder pain M25.511 Candidal intertrigo B37.2 Seborrhea L21.9 (1) Fall Encounter type: initial encounter Qualified Code(s): W19.XXXA - Unspecified fall, initial encounter (2) Bipolar disorder Most recent bipolar episode type: most recent episode unspecified type
[2021-04-20] MEDS: MICONAZOLE NITRATE POWDER 43 GM EXT SCH ×2 (17:14→19:48)
[2021-04-20] MEDS: QUEtiapine FUMARATE 25 MG TABLET PO SCH (19:49)
[2021-04-20] MEDS: VALPROIC ACID SOLN 500 MG/10 ML UDC PO SCH (19:49)
[2021-04-21 07:02] LABS: BUN Creatinine Ratio 24.1 (10-20); Calcium 9.1 mg/dl (8.5-10.1); Creatinine Clr Calc Pharmacy 107.5 ml/min; Est GFR (African American) 122.3 ml/min; Est GFR (Non-African American) 105.5 ml/min; Potassium 4.1 mmol/L (3.5-5.1)
[2021-04-21] MEDS: CLOPIDOGREL BISULFATE 75 MG TAB PO SCH (08:44)
[2021-04-21] MEDS: FOLIC ACID 1 MG TAB PO SCH (08:44)
[2021-04-21] MEDS: buPROPion HCl 100 MG TABLET PO SCH (08:45)
[2021-04-21] MEDS: MIDODRINE HCL 2.5 MG TAB PO SCH ×3 (08:45→17:46)
[2021-04-21] MEDS: LANSOPRAZOLE 30 MG SOLTAB PO SCH (08:45)
[2021-04-21] MEDS: ATORVASTATIN 40 MG TAB PO SCH (08:46)
[2021-04-21] MEDS: FINASTERIDE 5 MG TAB PO SCH (08:46)
[2021-04-21] MEDS: FERROUS SULFATE ELIX 220MG/5ML PO SCH ×2 (08:46→17:48)
[2021-04-21] MEDS: DICLOFENAC SOD 1% GEL 100 GM TUBE EXT SCH ×4 (08:47→21:05)
[2021-04-21] MEDS: HYDROCORTISONE 1% CRM 30 GM TUBE EXT SCH ×2 (08:47→21:05)
[2021-04-21] MEDS: MICONAZOLE NITRATE POWDER 43 GM EXT SCH ×2 (08:47→21:05)
[2021-04-21] MEDS: UMECLIDINIUM/VILANTEROL 62.5/25MCG 7 PUFFS/INHALER INH SCH (08:47)
[2021-04-21] MEDS: FLUTICASONE FUROATE 100MCG 14 PUFFS/INHALER INH SCH (08:47)
[2021-04-21] MEDS: VALPROIC ACID SOLN 250 MG/5 ML UDC PO SCH (08:48)
[2021-04-21] MEDS: DOCUSATE SODIUM/SENNA 50/8.6MG TAB PO SCH (09:00)
--- NOTE | 2021-04-21 16:12 | Hospitalist Progress Note ---
Date of Service April 21, 2021 Assessment & Plan (1) Fall: Plan: Suspect the patient's falls are multifactorial: generalized deconditioning, profound orthostatic hypotension He has frequent falls at home and uses a wheelchair but does stand and pivot to get in BP dropped to 70s systolic with PT eval on 03/18 and was symptomatic. Dropped to the 50s systolic on 03/24 with lightheadedness - Had dizziness overnight and given IVF - reported no dizziness during my visit Hgb initially low but then improved -- all without intervention (see below) -Reduced Seroquel from 50mg to 12.5mg but subsequently increased back to 25mg given irritability and agitation. Pt much more pleasant on higher dose of Seroquel -Added midodrine and titrated up to current 7.5 mg TID and will monitor -home metoprolol stopped -PT/OT evaluations completed and recommending inpatient rehab versus SNF--> case mgmt on board but no beds and proving to be extremely difficult (2) Anemia: Plan: hgb was 7.3 on arrival -- up to 10.1 without intervention/no transfusion- has yo-yo'ed between 8-10. Most likely margin of error in the lab Microcytic stool for occult blood negative x 2 Did have a W/U and Seen by established disease management nurse/oncologist-- started on Ferrous sulfate/folic acid and B12 -was not on antiplatelet agents [employer].Has since been started on plavix given PAD. On 03/31-- plavix held given that drop in Hgb. Have since restarted Plavix -patient on PPI -Hgb stable -labs will need followed upon D/C (and occasionally while he remains in house depending on how long patient is here) -EGD on 04/13 - dilated esophagus due to benign appearing esophageal stenosis; gastritis with biopsy obtained - likely repeat endoscopy x 2 weeks for retreatment on/around 04/27/21 -- Pathology - chronic gastritis, mild; neg H. pylori, no metaplasia, dysplasia, or malignancy (3) Hypotension: Plan: As above, now stable for some time with addition of midodrine - improved with t itration to 7.5 mg TID Consider adrenal insufficiency-last AM cortisol low normal, will repeat in AM -Discontinued metoprolol -continue midodrine 7.5 mg (4) Dysphagia: Plan: Had complaint of feeling like food is getting stuck with swallowing on 04/06 Has had intermittent episodes of vomiting after taking pills throughout his hos pital stay Has a h/o esophageal strictures requiring dilatation in 2017 He would not be able to withstand a barium swallow as he cannot stand up for more than a few seconds to a minute at a time Now s/p esophageal dilatation on 04/13 for severe restriction and doing much better with swallowing - Tolerating diet -Continue Prevacid -changed bigger pills to liquids - GI following -plan for repeat esophageal dilatation on 04/27 (5) CKD (chronic kidney disease) stage 2, GFR 60-89 ml/min: Plan: Renal function appears to be at baseline in this patient, continue to monitor periodically (6) Chronic hypoxemic respiratory failure: Plan: chronic. No acute issues continue O2 prn (7) COPD (chronic obstructive pulmonary disease) with chronic bronchitis: Plan: Patient with a history of COPD, still smoking despite lung cancer diagnosis ? reoccurrence of non-small cell lung CA on imaging Trelegy (ICS/AC/LABA) as an outpatient We will substitute Anoro Ellipta (AC/LABA) and Arnuity Ellipta (ICS) while inpatient Oxygenating well on room air Supplemental oxygen as needed to maintain SaO2 between 88 and 92%-has not needed O2 in a long time pulmonology consulted-- appreciate recommendations. 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 Was tapped in the past. f/u as outpt with PULM (10) Hyponatremia: Plan: - Na down to 126 even further today Urine Na+ 54, Ur Osm 632 which points towards either adrenal insufficiency vs SIADH as thryoid function is normal and he is euvolemic -most likely SIADH given lung CA, BUT with hypotension, and borderline low AM cortisol previously, could be AI--> repeat AM fasting cortisol in AM Follow BMP routinely (11) Peripheral arterial disease: Plan: Patient should be on antiplatelet/statin, started Plavix and statin History of aortofemoral bypass per prior notes (12) Bilateral carotid artery occlusion: Plan: as above,started Plavix and statin (13) Unstageable pressure ulcer of left heel: Plan: XR ankle to assess for OM, no surrounding cellulitis Skin care per nursing protocol (14) Bipolar disorder: Plan: stable continue depakote but changed to liquid as tabs large and hard to swallow -continue reduced dose of seroquel and wellbutrin (15) Constipation: Plan: bowel protocol ordered on board; adequate bowel movements continue senna/docusate Changed Miralax to PRN (16) Right shoulder pain: Plan: - Voltaren gel to right shoulder (17) Candidal intertrigo: Plan: continue miconazole powderto groin bilat (18) Seborrhea: Plan: ears bilat -improved--> continue hydrocortisone cream bid x 2 week course to ears (04/26) Plan: Disposition: Patient will need fci facility or inpatient rehab. Lives alone in [facility] and is quite debilitated, unable to care for self. Working with case management. still looking for rehab placement-no beds available, multiple referrals out Medically stable for discharge sister updated on 04/17 - Tanna is patient's sister not friend as depicted in chart. Admission and Anticipated Discharge Date Admission Date: March 20, 2021 Subjective Patient states he still feels lightheaded at times. No difficulty with swallow ing food. His only request is that I help him plug his TV remote back into the wall. When I told him that his sodium is getting lower, he stated "everything is lower. The only thing that is not lower is my anger level." Review of Systems Review of Systems: All systems reviewed & are unremarkable except as noted in HPI & below Physical Exam Constitutional: WD/WN, vitals as above ENMT: external ear and nose normal, oropharynx normal Neck: trachea midline, no thyromegaly Respiratory: normal respiratory effort, lungs clear to auscultation normal respiratory effort Auscultation: + diminished lung sounds (at bases) and + wheezes (A few scattered wheezes bilateral) Cardiovascular: RRR, no murmur, no edema Chest (Breasts): Chest: normal inspection of chest Gastrointestinal (Abdomen): normal bowel sounds, soft, nontender, no hepatosplenomegaly Musculoskeletal: Extremities: extremities normal to inspection; no cyanosis and no clubbing Skin: no rashes, warm and dry Neurologic: moves all extremities and awake; no focal motor deficits Psychiatric: Orientation: alert, oriented to person and cooperative Lymphatic: no lymphedema Results & Data Results & Data ([facility]) Vital Signs (Past 12 Hours) Vital Signs Temp Pulse Resp BP BP Pulse Ox 04/21/21 16:04 73 16 134/78 97 04/21/21 15:49 36.6 C 66 14 141/80 H 97 04/21/21 07:32 36.4 C L 69 16 104/69 91 Laboratory Results 04/19/21 08:57 04/21/21 06:12 PG Care Time/CCT Total # of Minutes Spent Total Time Spent with Patient: Total time spent is greater than 50% in coordination of care (as documented) at patient's floor/unit and/or counseling patient: Coding Level of Care Code 77118 Subseq Hosp Care Lvl 2 Diagnoses Fall W19.XXXA Encounter type: initial encounter Anemia D64.9 Hypotension I95.9 Dysphagia R13.10 CKD (chronic kidney disease) stage 2, GFR 60-89 ml/min N18.2 Chronic hypoxemic respiratory failure J96.11 COPD (chronic obstructive pulmonary disease) with chronic bronchitis J44.9 History of lung cancer Z85.118 Recurrent left pleural effusion J90 Hyponatremia E87.1 Peripheral arterial disease I73.9 Bilateral carotid artery occlusion I65.23 Unstageable pressure ulcer of left heel L89.620 Bipolar disorder F31.9 Most recent bipolar episode type: most recent episode unspecified type Constipation K59.00 Right shoulder pain M25.511 Candidal intertrigo B37.2 Seborrhea L21.9 (1) Bipolar disorder Most recent bipolar episode type: most recent episode unspecified type (2) Fall Encounter type: initial encounter Qualified Code(s): W19.XXXA - Unspecified fall, initial encounter
[2021-04-21] MEDS: QUEtiapine FUMARATE 25 MG TABLET PO SCH (21:04)
[2021-04-21] MEDS: VALPROIC ACID SOLN 500 MG/10 ML UDC PO SCH (21:07)
[2021-04-22 07:20] LABS: Eosinophils # (auto) 0.18 K/uL (0-0.5); Eosinophils % (auto) 4.2 %; Hematocrit (blood only) 27.9 % (42-52); Hemoglobin 9.1 g/dL (14.0-18.0); Immature Granulocytes # (auto) 0.01 K/uL (0.00-0.02); Immature Granulocytes % (auto) 0.2 %; Lymphocytes # (auto) 0.69 K/uL (1.2-3.4); Lymphocytes % (auto) 16.2 %; Mean Corpuscular Hemoglobin 25.6 pg (25-34); Mean Corpuscular Hgb Conc 32.6 g/dL (32-36); Mean Corpuscular Volume 78.6 fL (80-100); Mean Platelet Volume 8.4 fL (7.4-10.4); Monocytes # (auto) 0.56 K/uL (0.11-0.59); Monocytes % (auto) 13.2 %; Neutrophils # (auto) 2.81 K/uL (1.4-6.5); Neutrophils % (auto) 66.2 %; Platelet Count 231 K/uL (130-400); RDW Coefficient of Variation 18.2 % (11.5-14.5); RDW Standard Deviation 52.8 fL (36.4-46.3); Red Blood Count 3.55 M/uL (4.7-6.1); White Blood Count 4.25 K/uL (4.8-10.8)
[2021-04-22 07:32] LABS: BUN Creatinine Ratio 22.2 (10-20); Creatinine Clr Calc Pharmacy 115.5 ml/min; Est GFR (African American) 125.9 ml/min; Est GFR (Non-African American) 108.6 ml/min; Potassium 4.2 mmol/L (3.5-5.1)
[2021-04-22] MEDS: FERROUS SULFATE ELIX 220MG/5ML PO SCH ×2 (10:58→17:14)
[2021-04-22] MEDS: MIDODRINE HCL 2.5 MG TAB PO SCH ×3 (10:59→17:15)
[2021-04-22] MEDS: FLUTICASONE FUROATE 100MCG 14 PUFFS/INHALER INH SCH (11:01)
[2021-04-22] MEDS: UMECLIDINIUM/VILANTEROL 62.5/25MCG 7 PUFFS/INHALER INH SCH (11:01)
[2021-04-22] MEDS: buPROPion HCl 100 MG TABLET PO SCH (11:02)
[2021-04-22] MEDS: LANSOPRAZOLE 30 MG SOLTAB PO SCH (11:03)
[2021-04-22] MEDS: FOLIC ACID 1 MG TAB PO SCH (11:04)
[2021-04-22] MEDS: DICLOFENAC SOD 1% GEL 100 GM TUBE EXT SCH ×4 (11:06→20:38)
[2021-04-22] MEDS: FINASTERIDE 5 MG TAB PO SCH (11:07)
[2021-04-22] MEDS: HYDROCORTISONE 1% CRM 30 GM TUBE EXT SCH ×2 (11:09→20:36)
[2021-04-22] MEDS: CLOPIDOGREL BISULFATE 75 MG TAB PO SCH (11:10)
[2021-04-22] MEDS: MICONAZOLE NITRATE POWDER 43 GM EXT SCH ×2 (11:11→20:37)
[2021-04-22] MEDS: ATORVASTATIN 40 MG TAB PO SCH (11:12)
[2021-04-22] MEDS: ONDANSETRON INJ 2 MG/ML 2 ML VIAL IV PRN (14:51)
[2021-04-22] MEDS: DOCUSATE SODIUM/SENNA 50/8.6MG TAB PO SCH (15:00)
[2021-04-22] MEDS: VALPROIC ACID SOLN 250 MG/5 ML UDC PO SCH (15:00)
[2021-04-22] MEDS: CHOLECALCIFEROL 1,000 UNITS 25 MCG TAB PO SCH (15:00)
[2021-04-22] MEDS: ASCORBIC ACID 500 MG TAB PO SCH ×2 (15:00→20:37)
[2021-04-22] MEDS: CYANOCOBALAMIN 500 MCG TABLET (VITAMIN B-12) PO SCH (15:00)
[2021-04-22] MEDS ORDERED: HYDROCORTISONE 10 MG TAB PO ONE (18:18)
--- NOTE | 2021-04-22 18:30 | Hospitalist Progress Note ---
Date of Service April 22, 2021 Assessment & Plan (1) Fall: Plan: Suspect the patient's falls are multifactorial: generalized deconditioning, profound orthostatic hypotension He has frequent falls at home and uses a wheelchair but does stand and pivot to get in BP dropped to 70s systolic with PT eval on 03/18 and was symptomatic. Dropped to the 50s systolic on 03/24 with lightheadedness Dizziness intermittently improved with volume replacement Hgb initially low but then improved -- all without intervention (see below) -Reduced Seroquel from 50mg to 12.5mg but subsequently increased back to 25mg given irritability and agitation. Pt much more pleasant on higher dose of Seroquel -Added midodrine and titrated up to current 7.5 mg TID and will monitor -treating for adrenal insufficiency as below -home metoprolol stopped -PT/OT evaluations completed and recommending inpatient rehab versus SNF--> case mgmt on board but no beds and proving to be extremely difficult (2) Adrenal insufficiency: Plan: With weakness, nausea, worsening hyponatremia, orthostatic hypotension ongoing for a long time Initial fasting AM cortisol earlier in hospital course was low normal at 5, but now repeat even lower at 3 and no use of steroids More of a chronic presentation CT abd/pel on 03/17/21 with normal adrenal glands; Brain MRI 03/18/21 normal Perhaps related to autoimmune disorder? -start hydrocortisone 10mg in AM and 5mg in PM, first dose now -may be able to wean off midodrine after starting HC -will need f/u as Endocrine as outpt -check ACTH level in AM and plasma renin activity -may eventually need some po FLorinef as well -follow BMP (3) Anemia: Plan: hgb was 7.3 on arrival -- up to 10.1 without intervention/no transfusion- has yo-yo'ed between 8-10. Most likely margin of error in the lab Microcytic stool for occult blood negative x 2 Did have a W/U and Seen by established industrial hygiene engineer/oncologist-- started on Ferrous sulfate/folic acid and B12 -was not on antiplatelet agents [employer].Has since been started on plavix given PAD. On 03/31-- plavix held given that drop in Hgb. Have since restarted Plavix -patient on PPI -Hgb stable -labs will need followed upon D/C (and occasionally while he remains in house depending on how long patient is here) -EGD on 04/13 - dilated esophagus due to benign appearing esophageal stenosis; gastritis with biopsy obtained - likely repeat endoscopy x 2 weeks for retreatment on/around 04/27/21 -- Pathology - chronic gastritis, mild; neg H. pylori, no metaplasia, dysplasia, or malignancy (4) Hypotension: Plan: Initially thought secondary to Seroquel and metoprolol side effect, and did improve w/ addition of midodrine and dc of home metoprolol -starting po HC as above -continue midodrine for now but will hopefully wean off (5) Dysphagia: Plan: Had complaint of feeling like food is getting stuck with swallowing on 04/06 Has had intermittent episodes of vomiting after taking pills throughout his hospital stay Has a h/o esophageal strictures requiring dilatation in 2016 He would not be able to withstand a barium swallow as he cannot stand up for more than a few seconds to a minute at a time Now s/p esophageal dilatation on 04/13 for severe restriction and doing much better with swallowing - Tolerating diet -Continue Prevacid -changed bigger pills to liquids - GI following -plan for repeat esophageal dilatation on 04/27 (6) CKD (chronic kidney disease) stage 2, GFR 60-89 ml/min: Plan: Renal function appears to be at baseline in this patient, continue to monitor periodically (7) Chronic hypoxemic respiratory failure: Plan: chronic. No acute issues continue O2 prn (8) COPD (chronic obstructive pulmonary disease) with chronic bronchitis: Plan: Patient with a history of COPD, still smoking despite lung cancer diagnosis ? reoccurrence of non-small cell lung CA on imaging Trelegy (ICS/AC/LABA) as an outpatient We will substitute Anoro Ellipta (AC/LABA) and Arnuity Ellipta (ICS) while inpatient Oxygenating well on room air Supplemental oxygen as needed to maintain SaO2 between 88 and 92%-has not needed O2 in a long time pulmonology consulted-- appreciate recommendations. 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 Was tapped in the past. f/u as outpt with PULM (11) Hyponatremia: Plan: - Na has continued to trend downward to 126, slowly worsening over the last month, usually improved with some volume replacement Urine Na+ 54, Ur Osm 632 which points towards either adrenal insufficiency vs SIADH as thyroid function is normal and he is euvolemic -suspected most likely from SIADH given lung CA, BUT with hypotension, and borderline low AM cortisol previously, could be AI--> repeated AM fasting cortisol and even lower at 3 -starting po hydrocortisone as above Follow BMP routinely (12) Peripheral arterial disease: Plan: Patient should be on antiplatelet/statin, started Plavix and statin History of aortofemoral bypass per prior notes (13) Bilateral carotid artery occlusion: Plan: as above,started Plavix and statin (14) Unstageable pressure ulcer of left heel: Plan: XR ankle to assess for OM, no surrounding cellulitis Skin care per nursing protocol (15) Bipolar disorder: Plan: stable continue depakote but changed to liquid as tabs large and hard to swallow -continue reduced dose of seroquel and wellbutrin (16) Constipation: Plan: bowel protocol ordered on board; adequate bowel movements continue senna/docusate Changed Miralax to PRN (17) Right shoulder pain: Plan: - Voltaren gel to right shoulder (18) Candidal intertrigo: Plan: continue miconazole powderto groin bilat () Seborrhea: Plan: ears bilat -improved--> continue hydrocortisone cream bid x 2 week course to ears (04/26) Plan: Disposition: Patient will need detention facility or inpatient rehab. Lives alone in [facility] and is quite debilitated, unable to care for self. Working with case management. still looking for rehab placement-no beds available, multiple referrals out Medically stable for discharge sister updated on 04/17 - Tanna is patient's sister not friend as depicted in chart. Admission and Anticipated Discharge Date Admission Date: March 20, 2021 Subjective Pt still weak and tired, no complaints. Was sleeping when I saw him but woke up and answered questions Review of Systems Review of Systems: All systems reviewed & are unremarkable except as noted in HPI & below Physical Exam Constitutional: WD/WN, vitals as above Neck: trachea midline, no thyromegaly Respiratory: normal respiratory effort, lungs clear to auscultation normal respiratory effort Auscultation: + diminished lung sounds (at bases) and + wheezes (A few scattered wheezes bilateral) Cardiovascular: RRR, no murmur, no edema Chest (Breasts): Chest: normal inspection of chest Gastrointestinal (Abdomen): normal bowel sounds, soft, nontender, no hepatosplenomegaly Musculoskeletal: Extremities: extremities normal to inspection; no cyanosis and no clubbing Skin: no rashes, warm and dry Neurologic: moves all extremities and awake; no focal motor deficits Psychiatric: Orientation: alert, oriented to person and cooperative Lymphatic: no lymphedema Results & Data Results & Data ([facility]) Vital Signs (Past 12 Hours) Vital Signs Temp Pulse Resp BP Pulse Ox 04/22/21 15:52 36.5 C 68 16 118/77 98 PG Care Time/CCT Total # of Minutes Spent Total Time Spent with Patient: Total time spent is greater than 50% in coordination of care (as documented) at patient's floor/unit and/or counseling patient: Coding Level of Care Code 81176 Subseq Hosp Care Lvl 2 Diagnoses Fall W19.XXXA Encounter type: initial encounter Anemia D64.9 Hypotension I95.9 Dysphagia R13.10 CKD (chronic kidney disease) stage 2, GFR 60-89 ml/min N18.2 Chronic hypoxemic respiratory failure J96.11 COPD (chronic obstructive pulmonary disease) with chronic bronchitis J44.9 History of lung cancer Z85.118 Recurrent left pleural effusion J90 Hyponatremia E87.1 Peripheral arterial disease I73.9 Bilateral carotid artery occlusion I65.23 Unstageable pressure ulcer of left heel L89.620 Bipolar disorder F31.9 Most recent bipolar episode type: most recent episode unspecified type Constipation K59.00 Right shoulder pain M25.511 Candidal intertrigo B37.2 Seborrhea L21.9 Adrenal insufficiency E27.40 (1) Fall Encounter type: initial encounter Qualified Code(s): W19.XXXA - Unspecified fall, initial encounter (2) Bipolar disorder Most recent bipolar episode type: most recent episode unspecified type
[2021-04-22] MEDS: QUEtiapine FUMARATE 25 MG TABLET PO SCH (20:37)
[2021-04-22] MEDS: VALPROIC ACID SOLN 500 MG/10 ML UDC PO SCH (20:37)
[2021-04-23] MEDS: FINASTERIDE 5 MG TAB PO SCH (08:17)
[2021-04-23] MEDS: FERROUS SULFATE ELIX 220MG/5ML PO SCH ×2 (08:17→16:35)
[2021-04-23] MEDS: CYANOCOBALAMIN 500 MCG TABLET (VITAMIN B-12) PO SCH (08:17)
[2021-04-23] MEDS: ATORVASTATIN 40 MG TAB PO SCH (08:17)
[2021-04-23] MEDS: MIDODRINE HCL 2.5 MG TAB PO SCH ×4 (08:17→17:01)
[2021-04-23] MEDS: CLOPIDOGREL BISULFATE 75 MG TAB PO SCH (08:18)
[2021-04-23] MEDS: HYDROCORTISONE 10 MG TAB PO SCH ×2 (08:18→14:41)
[2021-04-23] MEDS: buPROPion HCl 100 MG TABLET PO SCH (08:18)
[2021-04-23] MEDS: CHOLECALCIFEROL 1,000 UNITS 25 MCG TAB PO SCH (08:18)
[2021-04-23] MEDS: ASCORBIC ACID 500 MG TAB PO SCH ×2 (08:18→20:38)
[2021-04-23] MEDS: FOLIC ACID 1 MG TAB PO SCH (08:18)
[2021-04-23] MEDS: LANSOPRAZOLE 30 MG SOLTAB PO SCH (08:18)
[2021-04-23] MEDS: DICLOFENAC SOD 1% GEL 100 GM TUBE EXT SCH ×4 (08:19→20:50)
[2021-04-23] MEDS: DOCUSATE SODIUM/SENNA 50/8.6MG TAB PO SCH (08:19)
[2021-04-23] MEDS: VALPROIC ACID SOLN 250 MG/5 ML UDC PO SCH (08:19)
[2021-04-23] MEDS: FLUTICASONE FUROATE 100MCG 14 PUFFS/INHALER INH SCH (08:19)
[2021-04-23] MEDS: HYDROCORTISONE 1% CRM 30 GM TUBE EXT SCH ×2 (08:19→20:49)
[2021-04-23] MEDS: MICONAZOLE NITRATE POWDER 43 GM EXT SCH ×2 (08:19→20:48)
[2021-04-23] MEDS: UMECLIDINIUM/VILANTEROL 62.5/25MCG 7 PUFFS/INHALER INH SCH (08:19)
[2021-04-23 10:31] LABS: BUN Creatinine Ratio 16.2 (10-20); Calcium 9.4 mg/dl (8.5-10.1); Creatinine Clr Calc Pharmacy 90.4 ml/min; Est GFR (African American) 113.9 ml/min; Est GFR (Non-African American) 98.2 ml/min; Potassium 3.8 mmol/L (3.5-5.1)
--- NOTE | 2021-04-23 17:39 | Hospitalist Progress Note ---
Date of Service April 23, 2021 Assessment & Plan (1) Fall: Plan: Suspect the patient's falls are multifactorial: generalized deconditioning, profound orthostatic hypotension He has frequent falls at home and uses a wheelchair but does stand and pivot to get in BP dropped to 70s systolic with PT eval on 03/18 and was symptomatic. Dropped to the 50s systolic on 03/24 with lightheadedness Dizziness intermittently improved with volume replacement Hgb initially low but then improved -- all without intervention (see below) Remains with some orthostasis on vitals with PT on 04/22, but now on hydrocortisone and feels better will have PT/OT reassess on 04/24 -trial of getting to wheelchair and see if can get around on his own as his goal now is to get home -Reduced Seroquel from 50mg to 25mg -Added midodrine and titrated up to 7.5 mg TID, but now since starting hydrocortisone, will wean off midodrine--> decrease to 5mg tid today -treating for adrenal insufficiency as below -home metoprolol stopped -PT/OT evaluations completed and recommending inpatient rehab versus SNF--> case mgmt on board but no beds and proving to be extremely difficult. Pt and ex- now requesting that he go home with home health (2) Adrenal insufficiency: Plan: With weakness, nausea, worsening hyponatremia, orthostatic hypotension ongoing for a long time Initial fasting AM cortisol earlier in hospital course was low normal at 5, but now repeat even lower at 3 and no use of steroids More of a chronic presentation CT abd/pel on 03/17/21 with normal adrenal glands; Brain MRI 03/18/21 normal Perhaps related to autoimmune disorder? -on 04/22, started hydrocortisone 10mg in AM and 5mg in PM-already improving--> Na+ increasing, BP improving, feels better - wean off midodrine after starting HC-dec to 5mg tid -will need f/u as Endocrine as outpt - ACTH level and plasma renin activity pending -may eventually need some po FLorinef as well -follow BMP (3) Anemia: Plan: hgb was 7.3 on arrival -- up to 10.1 without intervention/no transfusion- has yo-yo'ed between 8-10. 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 On 03/31-- plavix held given that drop in Hgb. Have since restarted Plavix -patient on PPI -Hgb stable -labs will need followed upon D/C (and occasionally while he remains in house depending on how long patient is here) -EGD on 04/13 - dilated esophagus due to benign appearing esophageal stenosis; gastritis with biopsy obtained - likely repeat endoscopy x 2 weeks for retreatment on/around 04/27/21 -- Pathology - chronic gastritis, mild; neg H. pylori, no metaplasia, dysplasia, or malignancy (4) Hypotension: Plan: Initially thought secondary to Seroquel and metoprolol side effect, and did improve w/ addition of midodrine and dc of home metoprolol Now improving with hydrocortisone -starting po HC as above -continue midodrine for now but will hopefully wean off (5) Dysphagia: Plan: Had complaint of feeling like food is getting stuck with swallowing on 04/06 Has had intermittent episodes of vomiting after taking pills throughout his hospital stay Has a h/o esophageal strictures requiring dilatation in 2017 He would not be able to withstand a barium swallow as he cannot stand up for more than a few seconds to a minute at a time Now s/p esophageal dilatation on 04/13 for severe restriction and doing much better with swallowing - Tolerating diet -Continue Prevacid -changed bigger pills to liquids - GI following -plan for repeat esophageal dilatation on 04/27 (6) CKD (chronic kidney disease) stage 2, GFR 60-89 ml/min: Plan: Renal function appears to be at baseline in this patient, continue to monitor periodically (7) Chronic hypoxemic respiratory failure: Plan: chronic. No acute issues continue O2 prn (8) COPD (chronic obstructive pulmonary disease) with chronic bronchitis: Plan: Patient with a history of COPD, still smoking despite lung cancer diagnosis ? reoccurrence of non-small cell lung CA on imaging Trelegy (ICS/AC/LABA) as an outpatient We will substitute Anoro Ellipta (AC/LABA) and Arnuity Ellipta (ICS) while inpatient Oxygenating well on room air Supplemental oxygen as needed to maintain SaO2 between 88 and 92%-has not needed O2 in a long time pulmonology consulted-- appreciate recommendations. Continue to follow upon D/C neb treatments as prior to hospitalization (9) History of lung cancer: Plan: Hematology/oncology consulted -will hop picker again as an outpatient on discharge, however not sure if patient would be a good candidate for any treatment moving forward given noncompliance although now that he will be in a SNF environment, would be better MRI brain w/wo contrast with no evidence of metastatic disease (10) Recurrent left pleural effusion: Plan: Pulmonology consulted/signed off given asymptomatic status- no intervention. Was tapped in the past. f/u as outpt with PULM (11) Hyponatremia: Plan: - Na continued to trend downward to 126, slowly worsening over the last month, usually improved with some volume replacement Na+ now up to 127 after starting HC Urine Na+ 54, Ur Osm 632 which points towards either adrenal insufficiency vs SIADH as thyroid function is normal and he is euvolemic -suspected most likely from SIADH given lung CA, BUT with hypotension, and borderline low AM cortisol previously, could be AI--> repeated AM fasting cortisol and even lower at 3 -starting po hydrocortisone as above Follow BMP routinely (12) Peripheral arterial disease: Plan: Patient should be on antiplatelet/statin, started Plavix and statin History of aortofemoral bypass per prior notes (13) Bilateral carotid artery occlusion: Plan: as above,started Plavix and statin (14) Unstageable pressure ulcer of left heel: Plan: XR ankle to assess for OM, no surrounding cellulitis Skin care per nursing protocol (15) Bipolar disorder: Plan: stable continue depakote but changed to liquid as tabs large and hard to swallow -continue reduced dose of seroquel and wellbutrin (16) Constipation: Plan: bowel protocol ordered on board; adequate bowel movements continue senna/docusate Changed Miralax to PRN (17) Right shoulder pain: Plan: - Voltaren gel to right shoulder (18) Candidal intertrigo: Plan: continue miconazole powderto groin bilat () Seborrhea: Plan: ears bilat -improved--> continue hydrocortisone cream bid x 2 week course to ears (04/26) Plan: Disposition: Patient will need correction facility or inpatient rehab. Lives alone in [facility] and is quite debilitated, unable to care for self. Working with case management. still looking for rehab placement-no beds available, multiple referrals out Medically stable for discharge Will now reassess with PT/OT and see if able to safely go home with caregivers sister updated on 04/17 - Tanna is patient's sister not friend as depicted in chart. Admission and Anticipated Discharge Date Admission Date: March 20, 2021 Subjective Pt was talking to his ex-/best friend on speaker phone when I cam piper. I spoke with her and Roberth for a long time. SHe and Roberth are both wondering if he can get out to a wheelchair and try to scoot around for exercise. ALso wondering if he could come home with [facility]. She does feel that he is improving a lot in his mental status in the last week, but is concerned that he has been in bed for so long in the hospital. H ehas caregivers that help him with meals, medications, but would nee dhelp with bathing. He does feel he has more energy today since starting hydrocortisone Review of Systems Review of Systems: All systems reviewed & are unremarkable except as noted in HPI & below Physical Exam Constitutional: WD/WN, vitals as above ENMT: external ear and nose normal, oropharynx normal Neck: trachea midline, no thyromegaly Respiratory: normal respiratory effort Auscultation: + diminished lung sounds (at bases) and + wheezes (A few scattered wheezes bilateral) Cardiovascular: RRR, no murmur, no edema Chest (Breasts): Chest: normal inspection of chest Gastrointestinal (Abdomen): normal bowel sounds, soft, nontender, no hepatosplenomegaly Musculoskeletal: Extremities: extremities normal to inspection; no cyanosis and no clubbing Skin: no rashes, warm and dry Neurologic: moves all extremities and awake; no focal motor deficits Psychiatric: Orientation: alert, oriented to person and cooperative Lymphatic: no lymphedema Results & Data Results & Data ([facility]) Vital Signs (Past 12 Hours) Vital Signs Temp Pulse Resp BP BP Pulse Ox 04/23/21 15:08 36.7 C 67 16 120/77 99 04/23/21 08:27 36.5 C 67 16 91/56 L 93 Laboratory Results 04/22/21 07:06 04/23/21 09:45 PG Care Time/CCT Total # of Minutes Spent Total Time Spent with Patient: Total time spent is greater than 50% in coordination of care (as documented) at patient's floor/unit and/or counseling patient: Coding Level of Care Code 94598 Subseq Hosp Care Lvl 2 Diagnoses Fall W19.XXXA Encounter type: initial encounter Adrenal insufficiency E27.40 Anemia D64.9 Hypotension I95.9 Dysphagia R13.10 CKD (chronic kidney disease) stage 2, GFR 60-89 ml/min N18.2 Chronic hypoxemic respiratory failure J96.11 COPD (chronic obstructive pulmonary disease) with chronic bronchitis J44.9 History of lung cancer Z85.118 Recurrent left pleural effusion J90 Hyponatremia E87.1 Peripheral arterial disease I73.9 Bilateral carotid artery occlusion I65.23 Unstageable pressure ulcer of left heel L89.620 Bipolar disorder F31.9 Most recent bipolar episode type: most recent episode unspecified type Constipation K59.00 Right shoulder pain M25.511 Candidal intertrigo B37.2 Seborrhea L21.9 (1) Fall Encounter type: initial encounter Qualified Code(s): W19.XXXA - Unspecified fall, initial encounter (2) Bipolar disorder Most recent bipolar episode type: most recent episode unspecified type
[2021-04-23] MEDS: QUEtiapine FUMARATE 25 MG TABLET PO SCH (20:39)
[2021-04-23] MEDS: VALPROIC ACID SOLN 500 MG/10 ML UDC PO SCH (20:40)
[2021-04-24 07:03] LABS: Basophils # (auto) 0.01 K/uL (0-0.2); Basophils % (auto) 0.2 %; Eosinophils % (auto) 1.9 %; Hematocrit (blood only) 30.3 % (42-52); Hemoglobin 9.8 g/dL (14.0-18.0); Immature Granulocytes # (auto) 0.02 K/uL (0.00-0.02); Immature Granulocytes % (auto) 0.4 %; Lymphocytes # (auto) 0.75 K/uL (1.2-3.4); Lymphocytes % (auto) 14.2 %; Mean Corpuscular Hemoglobin 25.9 pg (25-34); Mean Corpuscular Hgb Conc 32.3 g/dL (32-36); Mean Corpuscular Volume 80.2 fL (80-100); Mean Platelet Volume 9.1 fL (7.4-10.4); Monocytes # (auto) 0.68 K/uL (0.11-0.59); Monocytes % (auto) 12.8 %; Neutrophils # (auto) 3.74 K/uL (1.4-6.5); Neutrophils % (auto) 70.5 %; Platelet Count 321 K/uL (130-400); RDW Coefficient of Variation 18.4 % (11.5-14.5); RDW Standard Deviation 54.6 fL (36.4-46.3); Red Blood Count 3.78 M/uL (4.7-6.1)
[2021-04-24 07:40] LABS: BUN Creatinine Ratio 16.1 (10-20); Calcium 9.7 mg/dl (8.5-10.1); Creatinine Clr Calc Pharmacy 87.8 ml/min; Est GFR (African American) 112.5 ml/min; Est GFR (Non-African American) 97.1 ml/min; Magnesium 2.2 mg/dl (1.8-2.4)
[2021-04-24] MEDS: LANSOPRAZOLE 30 MG SOLTAB PO SCH (08:51)
[2021-04-24] MEDS: HYDROCORTISONE 10 MG TAB PO SCH ×2 (08:51→16:47)
[2021-04-24] MEDS: CHOLECALCIFEROL 1,000 UNITS 25 MCG TAB PO SCH (08:51)
[2021-04-24] MEDS: FOLIC ACID 1 MG TAB PO SCH (08:51)
[2021-04-24] MEDS: FINASTERIDE 5 MG TAB PO SCH (08:51)
[2021-04-24] MEDS: buPROPion HCl 100 MG TABLET PO SCH (08:51)
[2021-04-24] MEDS: CYANOCOBALAMIN 500 MCG TABLET (VITAMIN B-12) PO SCH (08:51)
[2021-04-24] MEDS: ATORVASTATIN 40 MG TAB PO SCH (08:51)
[2021-04-24] MEDS: MIDODRINE HCL 2.5 MG TAB PO SCH ×3 (08:51→16:47)
[2021-04-24] MEDS: CLOPIDOGREL BISULFATE 75 MG TAB PO SCH (08:52)
[2021-04-24] MEDS: ASCORBIC ACID 500 MG TAB PO SCH ×2 (08:52→19:31)
[2021-04-24] MEDS: DICLOFENAC SOD 1% GEL 100 GM TUBE EXT SCH ×4 (08:54→19:31)
[2021-04-24] MEDS: MICONAZOLE NITRATE POWDER 43 GM EXT SCH ×2 (08:55→19:32)
[2021-04-24] MEDS: VALPROIC ACID SOLN 250 MG/5 ML UDC PO SCH (08:55)
[2021-04-24] MEDS: UMECLIDINIUM/VILANTEROL 62.5/25MCG 7 PUFFS/INHALER INH SCH (08:55)
[2021-04-24] MEDS: FLUTICASONE FUROATE 100MCG 14 PUFFS/INHALER INH SCH (08:55)
[2021-04-24] MEDS: HYDROCORTISONE 1% CRM 30 GM TUBE EXT SCH ×2 (08:56→19:31)
[2021-04-24] MEDS: FERROUS SULFATE ELIX 220MG/5ML PO SCH ×2 (09:02→16:47)
[2021-04-24] MEDS: DOCUSATE SODIUM/SENNA 50/8.6MG TAB PO SCH (09:05)
--- NOTE | 2021-04-24 14:22 | Hospitalist Progress Note ---
Date of Service April 24, 2021 Assessment & Plan (1) Fall: Plan: Suspect the patient's falls are multifactorial: generalized deconditioning, profound orthostatic hypotension He has frequent falls at home and uses a wheelchair but does stand and pivot to get in BP dropped to 70s systolic with PT eval on 03/18 and was symptomatic. Dropped to the 50s systolic on 03/24 with lightheadedness Dizziness intermittently improved with volume replacement Hgb initially low but then improved -- all without intervention (see below) Remains with some orthostasis on vitals with PT on 04/22, but now on hydrocortisone and feels much better PT/OT reassess on 04/24 and doing better but still recommending rehab -he is still willing to go to rehab for short term with goal to get back home -Reduced Seroquel from 50mg to 25mg -Added midodrine and previously titrated up to 7.5 mg TID, but now since starting hydrocortisone, will wean off midodrine--> decreased to 5mg tid -treating for adrenal insufficiency as below -home metoprolol stopped -PT/OT evaluations completed and recommending inpatient rehab versus SNF--> case mgmt on board but no beds and proving to be extremely difficult. Pt and ex- now requesting that he go home with home health (2) Adrenal insufficiency: Plan: With weakness, nausea, worsening hyponatremia, orthostatic hypotension ongoing for a long time Initial fasting AM cortisol earlier in hospital course was low normal at 5, but now repeat even lower at 3 and no use of steroids More of a chronic presentation CT abd/pel on 03/17/21 with normal adrenal glands; Brain MRI 03/18/21 normal Perhaps related to autoimmune disorder? -on 04/22, started hydrocortisone 10mg in AM and 5mg in PM-already improving--> Na+ increasing and now normalized, BP improving, feels better - wean off midodrine after starting HC-dec to 5mg tid -will need f/u as Endocrine as outpt - ACTH level and plasma renin activity pending -may eventually need some po FLorinef as well -follow BMP (3) Anemia: Plan: hgb was 7.3 on arrival -- up to 10.1 without intervention/no transfusion- has yo-yo'ed between 8-10. 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 On 03/31-- plavix held given that drop in Hgb. Have since restarted Plavix -patient on PPI -Hgb stable -labs will need followed upon D/C (and occasionally while he remains in house depending on how long patient is here) -EGD on 04/13 - dilated esophagus due to benign appearing esophageal stenosis; gastritis with biopsy obtained - likely repeat endoscopy x 2 weeks for retreatment on/around 04/27/21 -- Pathology - chronic gastritis, mild; neg H. pylori, no metaplasia, dysplasia, or malignancy (4) Hypotension: Plan: Initially thought secondary to Seroquel and metoprolol side effect, and did improve w/ addition of midodrine and dc of home metoprolol Now improving with hydrocortisone -starting po HC as above -continue midodrine for now but will hopefully wean off (5) Dysphagia: Plan: Had complaint of feeling like food is getting stuck with swallowing on 04/06 Has had intermittent episodes of vomiting after taking pills throughout his hospital stay Has a h/o esophageal strictures requiring dilatation in 2017 He would not be able to withstand a barium swallow as he cannot stand up for more than a few seconds to a minute at a time Now s/p esophageal dilatation on 04/13 for severe restriction and doing much bett er with swallowing - Tolerating diet -Continue Prevacid -changed bigger pills to liquids - GI following -plan for repeat esophageal dilatation on 04/27 -NPO after midnight on Tuesday and ordered repeat COVID test today for preop purposes as per my d/w Dr. Randolph on Tuesday (6) CKD (chronic kidney disease) stage 2, GFR 60-89 ml/min: Plan: Renal function appears to be at baseline in this patient, continue to monitor periodically (7) Chronic hypoxemic respiratory failure: Plan: chronic. No acute issues continue O2 prn (8) COPD (chronic obstructive pulmonary disease) with chronic bronchitis: Plan: Patient with a history of COPD, still smoking despite lung cancer diagnosis ? reoccurrence of non-small cell lung CA on imaging Trelegy (ICS/AC/LABA) as an outpatient We will substitute Anoro Ellipta (AC/LABA) and Arnuity Ellipta (ICS) while inpatient Oxygenating well on room air Supplemental oxygen as needed to maintain SaO2 between 88 and 92%-has not needed O2 in a long time pulmonology consulted-- appreciate recommendations. 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 Was tapped in the past. 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 from SIADH given lung CA, BUT with hypotension, and borderline low AM cortisol previously, could be AI--> repeated AM fasting cortisol and even lower at 3 -starting po hydrocortisone as above Follow BMP routinely (12) Peripheral arterial disease: Plan: Patient should be on antiplatelet/statin, started Plavix and statin History of aortofemoral bypass per prior notes hold Plavix for repeat EGD Tuesday (13) Bilateral carotid artery occlusion: Plan: as above,started Plavix and statin but hold Plavix again now for EGD (14) Unstageable pressure ulcer of left heel: Plan: XR ankle to assess for OM, no surrounding cellulitis Skin care per nursing protocol (15) Bipolar disorder: Plan: stable continue depakote but changed to liquid as tabs large and hard to swallow -continue reduced dose of seroquel and wellbutrin (16) Constipation: Plan: bowel protocol ordered on board; adequate bowel movements continue senna/docusate Changed Miralax to PRN (17) Right shoulder pain: Plan: - Voltaren gel to right shoulder (18) Candidal intertrigo: Plan: continue miconazole powderto groin bilat (19) Seborrhea: Plan: ears bilat -improved--> continue hydrocortisone cream bid x 2 week course to ears (04/26) Plan: Disposition: Patient will need halfway facility or inpatient rehab. Lives alone in [facility] and is quite debilitated, unable to care for self. Working with case management. still looking for rehab placement-no beds available, multiple referrals out Medically stable for discharge Was reassessed with PT/OT on 04/24 but still not able to safely go home unless h ad 27/12 care, so will continue with plan for rehab placement sister updated on 04/17 - Tanna is patient's sister not friend as depicted in chart. Admission and Anticipated Discharge Date Admission Date: March 20, 2021 Subjective Pt feeling really well today. He was OOB to the chair today and worked with PT, stood 7 times with max assistance. No nausea, no SOB. He was quite talkative today and told me the story of how he met and his ex- for about 10 min straight. This is the most he has spoken to me in a month. He is moving his bowels, eating. Not lightheaded Review of Systems Review of Systems: All systems reviewed & are unremarkable except as noted in HPI & below Physical Exam Constitutional: WD/WN, vitals as above Neck: trachea midline, no thyromegaly Respiratory: normal respiratory effort, lungs clear to auscultation normal respiratory effort Auscultation: + diminished lung sounds (at bases) and + wheezes (A few scattered wheezes bilateral) Cardiovascular: RRR, no murmur, no edema Chest (Breasts): Chest: normal inspection of chest Gastrointestinal (Abdomen): normal bowel sounds, soft, nontender, no hepatosplenomegaly Musculoskeletal: Extremities: extremities normal to inspection; no cyanosis and no clubbing Skin: no rashes, warm and dry Neurologic: moves all extremities and awake; no focal motor deficits Psychiatric: Orientation: alert, oriented to person and cooperative Lymphatic: no lymphedema Results & Data Results & [facility] ([facility]) Vital Signs (Past 12 Hours) Vital Signs Temp Pulse Resp BP Pulse Ox 04/24/21 07:36 36.7 C 65 18 94/60 L 95 Laboratory Results 04/24/21 06:40 04/24/21 06:40 PG Care Time/CCT Total # of Minutes Spent Total Time Spent with Patient: Total time spent is greater than 50% in coordination of care (as documented) at patient's floor/unit and/or counseling patient: Coding Level of Care Code 75161 Subseq Hosp Care Lvl 2 Diagnoses Fall W19.XXXA Encounter type: initial encounter Adrenal insufficiency E27.40 Anemia D64.9 Hypotension I95.9 Dysphagia R13.10 CKD (chronic kidney disease) stage 2, GFR 60-89 ml/min N18.2 Chronic hypoxemic respiratory failure J96.11 COPD (chronic obstructive pulmonary disease) with chronic bronchitis J44.9 History of lung cancer Z85.118 Recurrent left pleural effusion J90 Hyponatremia E87.1 Peripheral arterial disease I73.9 Bilateral carotid artery occlusion I65.23 Unstageable pressure ulcer of left heel L89.620 Bipolar disorder F31.9 Most recent bipolar episode type: most recent episode unspecified type Constipation K59.00 Right shoulder pain M25.511 Candidal intertrigo B37.2 Seborrhea L21.9 (1) Bipolar disorder Most recent bipolar episode type: most recent episode unspecified type (2) Fall Encounter type: initial encounter Qualified Code(s): W19.XXXA - Unspecified fall, initial encounter
[2021-04-24] MEDS: QUEtiapine FUMARATE 25 MG TABLET PO SCH (19:31)
[2021-04-24] MEDS: VALPROIC ACID SOLN 500 MG/10 ML UDC PO SCH (19:32)
[2021-04-25] MEDS: FERROUS SULFATE ELIX 220MG/5ML PO SCH ×2 (08:05→16:52)
[2021-04-25] MEDS: MIDODRINE HCL 2.5 MG TAB PO SCH ×3 (08:05→16:51)
[2021-04-25] MEDS: HYDROCORTISONE 10 MG TAB PO SCH ×2 (08:09→15:35)
[2021-04-25] MEDS: ASCORBIC ACID 500 MG TAB PO SCH ×2 (08:09→20:52)
[2021-04-25] MEDS: ATORVASTATIN 40 MG TAB PO SCH (08:09)
[2021-04-25] MEDS: buPROPion HCl 100 MG TABLET PO SCH (08:10)
[2021-04-25] MEDS: FINASTERIDE 5 MG TAB PO SCH (08:10)
[2021-04-25] MEDS: FOLIC ACID 1 MG TAB PO SCH (08:10)
[2021-04-25] MEDS: LANSOPRAZOLE 30 MG SOLTAB PO SCH (08:10)
[2021-04-25] MEDS: CHOLECALCIFEROL 1,000 UNITS 25 MCG TAB PO SCH (08:10)
[2021-04-25] MEDS: DOCUSATE SODIUM/SENNA 50/8.6MG TAB PO SCH (08:11)
[2021-04-25] MEDS: UMECLIDINIUM/VILANTEROL 62.5/25MCG 7 PUFFS/INHALER INH SCH (08:11)
[2021-04-25] MEDS: VALPROIC ACID SOLN 250 MG/5 ML UDC PO SCH (08:12)
[2021-04-25] MEDS: FLUTICASONE FUROATE 100MCG 14 PUFFS/INHALER INH SCH (08:17)
[2021-04-25] MEDS: HYDROCORTISONE 1% CRM 30 GM TUBE EXT SCH ×2 (08:21→21:00)
[2021-04-25] MEDS: DICLOFENAC SOD 1% GEL 100 GM TUBE EXT SCH ×4 (08:21→21:00)
[2021-04-25] MEDS: MICONAZOLE NITRATE POWDER 43 GM EXT SCH ×2 (10:36→20:52)
[2021-04-25] MEDS: CYANOCOBALAMIN 500 MCG TABLET (VITAMIN B-12) PO SCH (11:27)
--- NOTE | 2021-04-25 12:24 | Hospitalist Progress Note ---
Date of Service April 25, 2021 Assessment & Plan (1) Fall: Plan: Suspect the patient's falls are multifactorial: generalized deconditioning, profound orthostatic hypotension He has frequent falls at home and uses a wheelchair but does stand and pivot to get in BP dropped to 70s systolic with PT eval on 03/18 and was symptomatic. Dropped to the 50s systolic on 03/24 with lightheadedness Dizziness intermittently improved with volume replacement Hgb initially low but then improved -- all without intervention (see below) Remains with some orthostasis on vitals with PT on 04/22, but now on hydrocortisone and feels much better PT/OT reassess on 04/24 and doing better but still recommending rehab -he is still willing to go to rehab for short term with goal to get back home -Reduced Seroquel from 50mg to 25mg -Added midodrine and previously titrated up to 7.5 mg TID, but now since starting hydrocortisone, BPs significantly improved--> will wean off midodrine--> decreased to 2.5mg tid on 04/25 -treating for adrenal insufficiency as below -home metoprolol stopped -PT/OT evaluations completed and recommending inpatient rehab versus SNF--> case mgmt on board but no beds and proving to be extremely difficult. Pt and ex- now requesting that he go home with home health if strength improves while here awaiting placement (2) Adrenal insufficiency: Plan: With weakness, nausea, worsening hyponatremia, orthostatic hypotension ongoing for a long time Initial fasting AM cortisol earlier in hospital course was low normal at 5, but now repeat even lower at 3 and no use of steroids More of a chronic presentation CT abd/pel on 03/17/21 with normal adrenal glands; Brain MRI 03/18/21 normal Perhaps related to autoimmune disorder? -on 04/22, started hydrocortisone 10mg in AM and 5mg in PM-significantly improved--> Na+ increasing and now normalized, BP improving, feels better - wean off midodrine -dec to 2.5mg tid as above -will need f/u as Endocrine as outpt - ACTH level and plasma renin activity pending -may eventually need some po FLorinef as well -follow BMP (3) Anemia: Plan: hgb was 7.3 on arrival -- up to 10.1 without intervention/no transfusion- has yo-yo'ed between 8-. Most likely margin of error in the lab Microcytic stool for occult blood negative x 2 Did have a W/U and Seen by established acid blower/oncologist-- started on Ferrous sulfate/folic acid and B12 -was not on antiplatelet agents [employer] OUTSIDE.Has since been started on plavix given PAD. On 03/31-- plavix held given that drop in Hgb. Have since restarted Plavix -patient on PPI -Hgb stable -labs will need followed upon D/C (and occasionally while he remains in house depending on how long patient is here) -EGD on 04/13 - dilated esophagus due to benign appearing esophageal stenosis; gastritis with biopsy obtained - likely repeat endoscopy x 2 weeks for ret reatment on/around 04/27/21 -- Pathology - chronic gastritis, mild; neg H. pylori, no metaplasia, dysplasia, or malignancy (4) Hypotension: Plan: Initially thought secondary to Seroquel and metoprolol side effect, and did improve w/ addition of midodrine and dc of home metoprolol Now improving with hydrocortisone -starting po HC as above -weaning midodrine (5) Dysphagia: Plan: Had complaint of feeling like food is getting stuck with swallowing on 04/06 Has had intermittent episodes of vomiting after taking pills throughout his hospital stay Has a h/o esophageal strictures requiring dilatation in 2017 He would not be able to withstand a barium swallow as he cannot stand up for more than a few seconds to a minute at a time Now s/p esophageal dilatation on 04/13 for severe restriction and doing much better with swallowing - Tolerating diet -Continue Prevacid -changed bigger pills to liquids - GI following -plan for repeat esophageal dilatation on 04/27 -NPO after midnight on Tuesday and ordered repeat COVID test today for preop purposes as per my d/w Dr. Randolph on Tuesday (6) CKD (chronic kidney disease) stage 2, GFR 60-89 ml/min: Plan: Renal function appears to be at baseline in this patient, continue to monitor periodically (7) Chronic hypoxemic respiratory failure: Plan: chronic. No acute issues continue O2 prn (8) COPD (chronic obstructive pulmonary disease) with chronic bronchitis: Plan: Patient with a history of COPD, still smoking despite lung cancer diagnosis ? reoccurrence of non-small cell lung CA on imaging Trelegy (ICS/AC/LABA) as an outpatient We will substitute Anoro Ellipta (AC/LABA) and Arnuity Ellipta (ICS) while inpatient Oxygenating well on room air Supplemental oxygen as needed to maintain SaO2 between 88 and 92%-has not needed O2 in a long time pulmonology consulted-- appreciate recommendations. 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 Was tapped in the past. 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 from SIADH given lung CA, BUT with hypotension, and borderline low AM cortisol previously, could be AI--> repeated AM fasting cortisol and even lower at 3 -starting po hydrocortisone as above Follow BMP q3 days (12) Peripheral arterial disease: Plan: Patient should be on antiplatelet/statin, started Plavix and statin History of aortofemoral bypass per prior notes hold Plavix for repeat EGD Tuesday (13) Bilateral carotid artery occlusion: Plan: as above,started Plavix and statin but hold Plavix again now for EGD (14) Unstageable pressure ulcer of left heel: Plan: XR ankle to assess for OM, no surrounding cellulitis Skin care per nursing protocol (15) Bipolar disorder: Plan: stable continue depakote but changed to liquid as tabs large and hard to swallow -continue reduced dose of seroquel and wellbutrin (16) Constipation: Plan: bowel protocol ordered on board; adequate bowel movements continue senna/docusate Changed Miralax to PRN (17) Right shoulder pain: Plan: - Voltaren gel to right shoulder (18) Candidal intertrigo: Plan: continue miconazole powder to groin bilat () Seborrhea: Plan: ears bilat -improved--> continue hydrocortisone cream bid x 2 week course to ears (04/26) Plan: Disposition: Patient will need correction facility or inpatient rehab. Lives alone in [facility] and is quite debilitated, unable to care for self. Working with case management. still looking for rehab placement-no beds available, multiple referrals out Medically stable for discharge Was reassessed with PT/OT on 04/24 but still not able to safely go home unless had 24/ care, so will continue with plan for rehab placement sister updated on 04/17 - Tanna is patient's sister not friend as depicted in chart. Admission and Anticipated Discharge Date Admission Date: March 20, 2021 Subjective Pt feels very well, no complaints. Eating lunch, has not been OOB to chair yet today. Review of Systems Review of Systems: All systems reviewed & are unremarkable except as noted in HPI & below Physical Exam Constitutional: WD/WN, vitals as above Neck: trachea midline, no thyromegaly Respiratory: normal respiratory effort Auscultation: + diminished lung sounds (at bases) and + wheezes (A few scattered wheezes bilateral) Cardiovascular: RRR, no murmur, no edema Chest (Breasts): Chest: normal inspection of chest Gastrointestinal (Abdomen): normal bowel sounds, soft, nontender, no hepatosplenomegaly Musculoskeletal: Extremities: extremities normal to inspection; no cyanosis and no clubbing Skin: no rashes, warm and dry + rash (bilat inguinal erythema) Neurologic: moves all extremities and awake; no focal motor deficits Psychiatric: Orientation: alert, oriented to person and cooperative Lymphatic: no lymphedema Results & Data Results & Data ([facility]) Vital Signs (Past 12 Hours) Vital Signs Temp Pulse Resp BP Pulse Ox 04/25/21 07:56 36.3 C L 85 16 150/81 H 100 PG Care Time/CCT Total # of Minutes Spent Total Time Spent with Patient: Total time spent is greater than 50% in coordination of care (as documented) at patient's floor/unit and/or counseling patient: Coding Level of Care Code 48034 Subseq Hosp Care Lvl 2 Diagnoses Fall W19.XXXA Encounter type: initial encounter Adrenal insufficiency E27.40 Anemia D64.9 Hypotension I95.9 Dysphagia R13.10 CKD (chronic kidney disease) stage 2, GFR 60-89 ml/min N18.2 Chronic hypoxemic respiratory failure J96.11 COPD (chronic obstructive pulmonary disease) with chronic bronchitis J44.9 History of lung cancer Z85.118 Recurrent left pleural effusion J90 Hyponatremia E87.1 Peripheral arterial disease I73.9 Bilateral carotid artery occlusion I65.23 Unstageable pressure ulcer of left heel L89.620 Bipolar disorder F31.9 Most recent bipolar episode type: most recent episode unspecified type Constipation K59.00 Right shoulder pain M25.511 Candidal intertrigo B37.2 Seborrhea L21.9 (1) Fall Encounter type: initial encounter Qualified Code(s): W19.XXXA - Unspecified fall, initial encounter (2) Bipolar disorder Most recent bipolar episode type: most recent episode unspecified type
[2021-04-25] MEDS: QUEtiapine FUMARATE 25 MG TABLET PO SCH (20:52)
[2021-04-25] MEDS: VALPROIC ACID SOLN 500 MG/10 ML UDC PO SCH (20:52)
[2021-04-26] MEDS: UMECLIDINIUM/VILANTEROL 62.5/25MCG 7 PUFFS/INHALER INH SCH (08:16)
[2021-04-26] MEDS: ATORVASTATIN 40 MG TAB PO SCH (08:17)
[2021-04-26] MEDS: buPROPion HCl 100 MG TABLET PO SCH (08:17)
[2021-04-26] MEDS: ASCORBIC ACID 500 MG TAB PO SCH ×2 (08:17→20:46)
[2021-04-26] MEDS: CYANOCOBALAMIN 500 MCG TABLET (VITAMIN B-12) PO SCH (08:17)
[2021-04-26] MEDS: DOCUSATE SODIUM/SENNA 50/8.6MG TAB PO SCH (08:17)
[2021-04-26] MEDS: HYDROCORTISONE 10 MG TAB PO SCH ×2 (08:17→14:56)
[2021-04-26] MEDS: FERROUS SULFATE ELIX 220MG/5ML PO SCH ×2 (08:17→17:26)
[2021-04-26] MEDS: MIDODRINE HCL 2.5 MG TAB PO SCH (08:17)
[2021-04-26] MEDS: CHOLECALCIFEROL 1,000 UNITS 25 MCG TAB PO SCH (08:17)
[2021-04-26] MEDS: FOLIC ACID 1 MG TAB PO SCH (08:18)
[2021-04-26] MEDS: LANSOPRAZOLE 30 MG SOLTAB PO SCH (08:18)
[2021-04-26] MEDS: HYDROCORTISONE 1% CRM 30 GM TUBE EXT SCH (08:18)
[2021-04-26] MEDS: VALPROIC ACID SOLN 250 MG/5 ML UDC PO SCH (08:18)
[2021-04-26] MEDS: FLUTICASONE FUROATE 100MCG 14 PUFFS/INHALER INH SCH (08:18)
[2021-04-26] MEDS: MICONAZOLE NITRATE POWDER 43 GM EXT SCH ×2 (11:47→20:46)
[2021-04-26] MEDS: DICLOFENAC SOD 1% GEL 100 GM TUBE EXT SCH ×4 (11:48→20:46)
--- NOTE | 2021-04-26 18:27 | Hospitalist Progress Note ---
Date of Service April 26, 2021 Assessment & Plan (1) Fall: Plan: Suspect the patient's falls are multifactorial: generalized deconditioning, profound orthostatic hypotension He has frequent falls at home and uses a wheelchair but does stand and pivot to get in BP dropped to 70s systolic with PT eval on 03/18 and was symptomatic. Dropped to the 50s systolic on 03/24 with lightheadedness Dizziness intermittently improved with volume replacement Hgb initially low but then improved -- all without intervention (see below) Remained with some orthostasis on vitals with PT on 04/22, but now on po hydrocortisone and feels much better PT/OT reassess on 04/24 and doing better but still recommending rehab -he is still willing to go to rehab for short term with goal to get back home No further lightheadedness with standing and BPs much improved since starting po hydrocortisone -Reduced Seroquel from 50mg to 25mg -Added midodrine and previously titrated up to 7.5 mg TID, but now since starting hydrocortisone, BPs significantly improved--> weaned off midodrine -treating for adrenal insufficiency as below -home metoprolol stopped -PT/OT evaluations completed and recommending inpatient rehab versus SNF--> case mgmt on board but no beds and proving to be extremely difficult. Pt and ex- now requesting that he go home with home health if strength improves while here awaiting placement -asked nursing to get him out of bed to chair for all meals (2) Adrenal insufficiency: Plan: With weakness, nausea, worsening hyponatremia, orthostatic hypotension ongoing for a long time Initial fasting AM cortisol earlier in hospital course was low normal at 5, but now repeat even lower at 3 and no use of steroids More of a chronic presentation CT abd/pel on 03/17/21 with normal adrenal glands; Brain MRI 03/18/21 normal Perhaps related to autoimmune disorder? -on 04/22, started hydrocortisone 10mg in AM and 5mg in PM-significantly improv ed--> Na+ increasing and now normalized, BP improving, feels better - weaned off midodrine completely today and BPs are excellent -will need f/u as Endocrine as outpt - ACTH level and plasma renin activity pending -may eventually need some po FLorinef as well -follow BMP (3) Anemia: Plan: hgb was 7.3 on arrival -- up to 10.1 without intervention/no transfusion- has yo-yo'ed between 8-10. Most likely margin of error in the lab Microcytic stool for occult blood negative x 2 Did have a W/U and Seen by established gallery host/oncologist-- started on Ferrous sulfate/folic acid and B12 -EGD on 04/13 - dilated esophagus due to benign appearing esophageal stenosis; gastritis with biopsy obtained - likely repeat endoscopy x 2 weeks for retreatment on 04/27/21 -- Pathology - chronic gastritis, mild; neg H. pylori, no metaplasia, dysplasia, or malignancy -follow CBC periodically (4) Hypotension: Plan: Initially thought secondary to Seroquel and metoprolol side effect, and did improve w/ addition of midodrine and dc of home metoprolol Now improving with po hydrocortisone -have now weaned off midodrine (5) Dysphagia: Plan: Had complaint of feeling like food is getting stuck with swallowing on 04/06 Has had intermittent episodes of vomiting after taking pills throughout his hospital stay Has a h/o esophageal strictures requiring dilatation in 2017 He would not be able to withstand a barium swallow as he cannot stand up for more than a few seconds to a minute at a time Now s/p esophageal dilatation on 04/13 for severe restriction and doing much better with swallowing - Tolerating diet -Continue Prevacid -changed bigger pills to liquids - GI following -plan for repeat esophageal dilatation on 04/27 -NPO after midnight on Tuesday and ordered repeat COVID test today for preop purposes as per my d/w Dr. Randolph on Tuesday (6) CKD (chronic kidney disease) stage 2, GFR 60-89 ml/min: Plan: Renal function appears to be at baseline in this patient, continue to monitor periodically (7) Chronic hypoxemic respiratory failure: Plan: chronic. No acute issues continue O2 prn-none needed for weeks (8) COPD (chronic obstructive pulmonary disease) with chronic bronchitis: Plan: Patient with a history of COPD, still smoking despite lung cancer diagnosis ? reoccurrence of non-small cell lung CA on imaging Trelegy (ICS/AC/LABA) as an outpatient We will substitute Anoro Ellipta (AC/LABA) and Arnuity Ellipta (ICS) while inpatient Oxygenating well on room air Supplemental oxygen as needed to maintain SaO2 between 88 and 92%-has not needed O2 in a long time pulmonology consulted-- appreciate recommendations. 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 Was tapped in the past. 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 from SIADH given lung CA, BUT with hypotension, and borderline low AM cortisol previously, could be AI--> repeated AM fasting cortisol and even lower at 3 -started po hydrocortisone as above Follow BMP q3 days (12) Peripheral arterial disease: Plan: Patient should be on antiplatelet/statin, started Plavix and statin History of aortofemoral bypass per prior notes hold Plavix for repeat EGD Tuesday (13) Bilateral carotid artery occlusion: Plan: started Plavix and statin this admission, but now holding Plavix again now for EGD (14) Unstageable pressure ulcer of left heel: Plan: XR ankle to assess for OM, no surrounding cellulitis Skin care per nursing protocol (15) Bipolar disorder: Plan: stable continue depakote but changed to liquid as tabs large and hard to swallow -continue reduced dose of seroquel and wellbutrin (16) Constipation: Plan: bowel protocol ordered on board; adequate bowel movements continue senna/docusate Miralax PRN (17) Right shoulder pain: Plan: - Voltaren gel to right shoulder (18) Candidal intertrigo: Plan: continue miconazole powder to groin bilat () Seborrhea: Plan: ears bilat -improved--> continue hydrocortisone cream bid x 2 week course to ears (04/26) Plan: Disposition: Patient will need residential facility or inpatient rehab. Lives alone in [facility] and is quite debilitated, unable to care for self. Working with case management. still looking for rehab placement-no beds available, multiple referrals out Medically stable for discharge Was reassessed with PT/OT on 04/24 but still not able to safely go home unless had 24/7 care, so will continue with plan for rehab placement Admission and Anticipated Discharge Date Admission Date: March 20, 2021 Subjective Pt feels well today, no complaints. He was OOB to chair but RN reports he was a max assist to stand. He is writing down numbers from the TV on an [employer] for a steamer he wants to buy. Review of Systems Review of Systems: All systems reviewed & are unremarkable except as noted in HPI & below Physical Exam Constitutional: WD/WN, vitals as above Neck: trachea midline, no thyromegaly Respiratory: normal respiratory effort, lungs clear to auscultation normal respiratory effort Auscultation: + diminished lung sounds (at bases) and + wheezes (A few scattered wheezes bilateral) Cardiovascular: RRR, no murmur, no edema Chest (Breasts): Chest: normal inspection of chest Gastrointestinal (Abdomen): normal bowel sounds, soft, nontender, no hepatosplenomegaly Musculoskeletal: Extremities: extremities normal to inspection; no cyanosis and no clubbing Skin: no rashes, warm and dry Neurologic: moves all extremities and awake; no focal motor deficits Psychiatric: Orientation: alert, oriented to person and cooperative Lymphatic: no lymphedema Results & Data Results & [facility] ([facility]) Vital Signs (Past 12 Hours) Vital Signs Temp Pulse Resp BP Pulse Ox 04/26/21 15:51 36.4 C L 85 18 147/82 H 98 04/26/21 08:26 36.9 C 69 18 123/75 98 PG Care Time/CCT Total # of Minutes Spent Total Time Spent with Patient: Total time spent is greater than 50% in coordination of care (as documented) at patient's floor/unit and/or counseling patient: Coding Level of Care Code 50620 Subseq Hosp Care Lvl 2 Diagnoses Fall W19.XXXA Encounter type: initial encounter Adrenal insufficiency E27.40 Anemia D64.9 Hypotension I95.9 Dysphagia R13.10 CKD (chronic kidney disease) stage 2, GFR 60-89 ml/min N18.2 Chronic hypoxemic respiratory failure J96.11 COPD (chronic obstructive pulmonary disease) with chronic bronchitis J44.9 History of lung cancer Z85.118 Recurrent left pleural effusion J90 Hyponatremia E87.1 Peripheral arterial disease I73.9 Bilateral carotid artery occlusion I65.23 Unstageable pressure ulcer of left heel L89.620 Bipolar disorder F31.9 Most recent bipolar episode type: most recent episode unspecified type Constipation K59.00 Right shoulder pain M25.511 Candidal intertrigo B37.2 Seborrhea L21.9 (1) Fall Encounter type: initial encounter Qualified Code(s): W19.XXXA - Unspecified fall, initial encounter (2) Bipolar disorder Most recent bipolar episode type: most recent episode unspecified type
[2021-04-26] MEDS: QUEtiapine FUMARATE 25 MG TABLET PO SCH (20:46)
[2021-04-26] MEDS: VALPROIC ACID SOLN 500 MG/10 ML UDC PO SCH (20:46)
--- NOTE | 2021-04-27 08:00 | Anesthesiology Consultation ---
Date of Service April 27, 2021 Assessment & Plan Chart Review Chart Review: Acceptable Risk for Surgery and Patient NOT seen in Pre Admission Testing Consults Requested none ASA ASA4 Proposed Anesthesia Anesthesia Type: MAC History Surgery Operation Date: 04/10/21 13:00 Proposed Procedures p Esophagogastroduodenoscopy Eda River Case, DO Operation Date: 04/10/21 16:15 Proposed Procedures p Esophagogastroduodenoscopy Dr Hayden River Case, DO Operation Date: 04/13/21 16:30 Proposed Procedures p Esophagogastroduodenoscopy Dr. Randolph - Asim Randolph MD Operation Date: 04/27/21 16:15 Proposed Procedures p Esophagogastroduodenoscopy Dr. Randolph WITH DIALATION - Asim Randolph MD Height/Weight Height: 5 ft 5 in Weight: 72 kg Allergies Allergy/AdvReac Type Severity Reaction Status Date / Time ciprofloxacin Allergy Intermediate RASH Verified 03/17/21 16:31 vancomycin Allergy Intermediate RASH Verified 03/17/21 16:31 sulfamethoxazole Allergy Unknown Unknown Verified 03/17/21 16:31 [From Bactrim] trimethoprim [From Bactrim] Allergy Unknown Unknown Verified 03/17/21 16:31 Medications Home Medications Medication Instructions Recorded Confirmed Last Taken acetaminophen 500 mg capsule 500 mg PO Q6H PRN 02/02/18 03/17/21 09/01/20 ascorbic acid (vitamin C) 500 mg 500 mg PO BID cap 02/02/18 03/17/21 03/17/21 08:00 capsule cholecalciferol (vitamin D3) 25 1,000 units PO DAILY 04/03/18 03/17/21 03/17/21 mcg (1,000 unit) capsule ibuprofen 600 mg tablet 600 mg PO Q6H PRN #90 tab 01/08/19 03/17/21 Unknown albuterol sulfate 90 mcg/actuation 2 puffs INH QID PRN #18 gm 01/29/19 03/17/21 02/23/21 aerosol inhaler (Ventolin HFA) docusate sodium 100 mg capsule 100 mg PO DAILY PRN cap 01/29/19 03/17/21 02/23/21 ketoconazole 2 % topical cream 1 applic TOP DAILY #90 g 02/12/20 03/17/21 03/17/21 bupropion HCl 100 mg tablet 100 mg PO DAILY #90 tab 01/05/21 03/17/21 03/17/21 divalproex 250 mg tablet,delayed 250 mg PO HS #90 tab 01/05/21 03/17/21 03/16/21 release fluticasone fur. 100 mcg-umeclid 1 inh INHALATION Q24H #60 ea 01/05/21 03/17/21 03/17/21 62.5 mcg-vilant 25 mcg inhalat.powder (Trelegy Ellipta) metoprolol succinate 25 mg 25 mg PO DAILY #90 tab 01/28/21 03/17/21 03/17/21 tablet,extended release 24 hr omeprazole 20 mg capsule,delayed 20 mg PO DAILY #90 cap 02/17/21 03/17/21 03/17/21 release quetiapine 50 mg tablet 50 mg PO HS 02/24/21 03/17/21 03/16/21 dutasteride 0.5 mg capsule 0.5 mg PO DAILY #90 cap 03/03/21 03/17/21 03/17/21 divalproex 500 mg tablet,delayed See Rx Instructions .ROUTE .COMPLEX 03/17/21 03/17/21 03/17/21 08:00 release melatonin 5 mg tablet 5 mg PO HS PRN 03/17/21 03/17/21 Unknown Active Medications Generic Name Dose Route Start Last Admin Trade Name Freq PRN Reason Stop Dose Admin Acetaminophen 500 mg 03/18/21 02:09 04/19/21 09:45 Acetaminophen 500 Mg Tab PO 05/17/21 02:08 500 mg Q6H PRN Administration fever or pain Albuterol 2 puffs 03/18/21 01:47 04/17/21 21:53 Albuterol Hfa 8 Gm Inhaler INH 05/17/21 01:46 2 puffs QID PRN Administration shortness of breath or wheezin Albuterol 3 ml 04/01/21 10:29 04/18/21 20:04 Albut/Ipratrop 3mg/0.5mg Neb 3 Ml Vial NEB 05/01/21 10:59 3 ml Q4R PRN Administration cough,wheezing,sob Ascorbic Acid 500 mg 03/18/21 01:47 04/26/21 20:46 Ascorbic Acid 500 Mg Tab PO 05/17/21 01:46 500 mg BID GERMAN Administration Atorvastatin Calcium 40 mg 03/25/21 09:00 04/26/21 08:17 Atorvastatin 40 Mg Tab PO 06/05/21 08:59 40 mg QAM GERMAN Administration Bupropion HCl 100 mg 03/18/21 09:00 04/26/21 08:17 Bupropion Hcl 100 Mg Tablet PO 05/17/21 08:59 100 mg DAILY GERMAN Administration Clopidogrel Bisulfate 75 mg 04/07/21 09:00 04/24/21 08:52 Clopidogrel Bisulfate 75 Mg Tab PO 05/07/21 08:59 75 mg QAM GERMAN Administration Cyanocobalamin 1,000 mcg 04/01/21 09:00 04/26/21 08:17 Cyanocobalamin 500 Mcg Tablet (Vitamin B-12) PO 05/01/21 08:59 1,000 mcg QAM GERMAN Administration Diclofenac Sodium 2 gm 04/11/21 13:00 04/26/21 20:46 Diclofenac Sod 1% Gel 100 Gm Tube EXT 05/11/21 12:59 2 gm QID GERMAN Administration Ferrous Sulfate 220 mg 04/10/21 17:00 04/26/21 17:26 Ferrous Sulfate Elix 220mg/5ml PO 05/10/21 16:59 220 mg BIDM GERMAN Administration Fluticasone Furoate 1 puffs 03/18/21 09:00 04/26/21 08:18 Fluticasone Furoate 100mcg 14 Puffs/Inhaler INH 05/17/21 08:59 1 puffs QAM GERMAN Administration Folic Acid 1 mg 03/18/21 11:30 04/26/21 08:18 Folic Acid 1 Mg Tab PO 06/05/21 11:29 1 mg QAM GERMAN Administration Hydrocortisone 5 mg 04/23/21 15:00 04/26/21 14:56 Hydrocortisone 10 Mg Tab PO 05/23/21 14:59 5 mg DAILY@1500 GERMAN Administration Hydrocortisone 10 mg 04/23/21 09:00 04/26/21 08:17 Hydrocortisone 10 Mg Tab PO 05/23/21 08:59 10 mg QAM GERMAN Administration Lansoprazole 30 mg 04/11/21 09:00 04/26/21 08:18 Lansoprazole 30 Mg Soltab PO 05/11/21 08:59 30 mg DAILY GERMAN Administration Miconazole Nitrate 1 appln 04/11/21 11:30 04/26/21 20:46 Miconazole Nitrate Powder 43 Gm EXT 05/11/21 11:29 1 appln BID GERMAN Administration Quetiapine Fumarate 25 mg 04/04/21 21:00 04/26/21 20:46 Quetiapine Fumarate 25 Mg Tablet PO 05/04/21 20:59 25 mg HS GERMAN Administration Umeclidinium/Vilanterol 1 puffs 03/18/21 09:00 04/26/21 08:16 Umeclidinium/Vilanterol 62.5/25mcg 7 Puffs/Inhaler INH 05/17/21 08:59 1 puffs QAM GERMAN Administration Valproic Acid 500 mg 04/10/21 21:00 04/26/21 20:46 Valproic Acid Soln 500 Mg/10 Ml Udc PO 05/10/21 20:59 500 mg PM GERMAN Administration Valproic Acid 750 mg 04/14/21 09:00 04/26/21 08:18 Valproic Acid Soln 250 Mg/5 Ml Udc PO 05/14/21 08:59 750 mg QAM GERMAN Administration Vitamin D 1,000 units 03/18/21 09:00 04/26/21 08:17 Cholecalciferol 1,000 Units 25 Mcg Tab PO 05/17/21 08:59 1,000 units DAILY GERMNA Administration NPO Date Last Intake of Fluids: 04/12/21 Time Last Intake of Fluids: 23:59 Date Last Intake of Solids: 04/12/21 Time Last Intake of Solids: 23:59 Past Medical History Medical History Adrenal insufficiency Ataxic gait Benign prostate hyperplasia Bilateral carotid artery occlusion PT STATES NO SURGERY Bipolar disorder 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 Esophageal stenosis GERD (gastroesophageal reflux disease) Hepatic steatosis Hiatal hernia History of COVID-19 07/2020 (DIARRHEA AND FEVER) HOSPITALIZED AT [facility] History of lung cancer (01/2016) 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 Homicidal ideation PT DENIES AT PRESENT TIME Hypertension Memory loss Osteomyelitis Peripheral arterial disease Peripheral neuropathy Recurrent left pleural effusion s/p thoracentesis August 2018 Restless leg syndrome Schizoaffective disorder Exercise / Class Metabolic Activity III < 4 Walking/Shop/Light housework Past Family History Family History Brother Myocardial infarction Father Myocardial infarction Other Cancer Family history non-contributory Lung disease No family history of adverse response to anesthesia Denies family history of Tuberculosis Ovarian cancer Prostate cancer Diabetes Heart disease Allergies Breast cancer Emphysema, unspecified Lung cancer Colorectal cancer Asthma Past Surgical History Surgical History H/O foot surgery LEFT HEEL REMOVAL FROM PRESSURE ULCER History of bronchoscopy (01/2016) History of colonoscopy History of herniorrhaphy History of lobectomy of lung LOWER LEFT LUNG S/P peripheral artery angioplasty with stent placement (06/2016) LLE HELIARC WELDER, 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 S/P thoracentesis (05/2019) L pleural effusion Status post femorofemoral bypass surgery (06/2016) [place] teeth removed Past Anesthesia History No Hx of Anesthesia Complications and No Family Hx of Anesthesia Complications History of PONV No Hx of PONV and No Hx of Motion Sickness Social History Smoking Status: Current every day smoker tobacco type: cigarettes Smoking cigarettes per day: 6-8 DAILY Do You Dip or Chew Tobacco: Yes Hx Alcohol Use: Yes Alcohol type: beer alcohol intake frequency: a few times a week Hx Substance Use: Yes substance use type: marijuana and painkillers Last Used Substance: Days (ago) Last Used Substance Other:: 3 Physical Exam Vital Signs Last Vital Signs Temp 36.4 C L 04/27/21 07:51 Pulse 72 04/27/21 07:51 Resp 16 04/27/21 07:51 BP 126/79 04/27/21 07:51 Pulse Ox 99 04/27/21 07:51 Testing Laboratory Results 04/24/21 06:40 04/24/21 06:40 PT 10.8 Seconds (9.0-12.0) 03/17/21 15:53 INR 1.1 (0.9-1.1) 03/17/21 15:53 APTT 29.1 Seconds (21.0-31.0) 03/17/21 15:53 Urine Color Yellow 03/17/21 17:43 Urine Appearance Clear (Clear) 03/17/21 17:43 Urine pH 7.0 (4.5-7.5) 03/17/21 17:43 Ur Specific [place] 1.029 (1.000-1.030) 03/17/21 17:43 Urine Protein Negative (Negative) 03/17/21 17:43 Urine Glucose (UA) Negative (Negative) 03/17/21 17:43 Urine Ketones Negative (Negative) 03/17/21 17:43 Urine Nitrite Negative (Negative) 03/17/21 17:43 Ur Leukocyte Esterase Negative (Negative) 03/17/21 17:43 Blood Type AB Positive 03/17/21 15:59 Antibody Screen NEGATIVE 03/17/21 15:59 03/17/21 16:11 Aerobic Blood Culture - Final Blood No growth in Aerobic bottle after 5 days. Anaerobic Blood Culture - Final 03/17/21 15:53 Aerobic Blood Culture - Final Blood No growth in Aerobic bottle after 5 days. Anaerobic Blood Culture - Final No growth in Anaerobic bottle after 5 days.
--- NOTE | 2021-04-27 08:20 | Gastroenterology Progress Note ---
Date of Service April 27, 2021 Assessment & Plan (1) Dysphagia: (2) Esophageal stricture: Plan: repeat EGD today with dilation risks/benefits and procedure discussed with patient, who agrees to proceed Admission and Anticipated Discharge Date Admission Date: March 20, 2021 Subjective no events overnight, NPO for egd today. labs reviewed, VSS. Review of Systems Constitutional: no fever and no chills Respiratory: no cough, no dyspnea and no dyspnea on exertion Cardiovascular: no chest pain and no dyspnea Gastrointestinal: as per Subjective / HPI Psychiatric: no depression and no anxiety Physical Exam Constitutional: WD/WN, vitals as above Respiratory: normal respiratory effort, lungs clear to auscultation Cardiovascular: RRR, no murmur, no edema Gastrointestinal (Abdomen): normal bowel sounds, soft, nontender, no hepatosplenomegaly Musculoskeletal: no lower extremity edema Psychiatric: A+Ox3, euthymic affect Results & Data Results & Data ([facility]) Vital Signs (Past 12 Hours) Vital Signs Temp Pulse Resp BP BP Pulse Ox 04/27/21 07:51 36.4 C L 72 16 126/79 99 04/26/21 23:42 36.7 C 74 16 100/63 99 PG Care Time/CCT Total # of Minutes Spent Total Time Spent with Patient: Total time spent is greater than 50% in coordination of care (as documented) at patient's floor/unit and/or counseling patient: Coding Level of Care Code 77126 Subseq Hosp Care Lvl 3 Diagnoses Dysphagia R13.10 Esophageal stricture K22.2
[2021-04-27] MEDS ORDERED: ATROPINE SULFATE 0.1 MG/ML 10ML SYR IV PRN (08:37)
[2021-04-27] MEDS ORDERED: ePHEDrine sulfate 50 MG/ML AMP IV PRN (08:37)
--- NOTE | 2021-04-27 08:57 | GI REPORT ---
Patient Name: Roberth Luther Procedure Date: 04/27/2021 8:27 AM Date of : 1955 Admit Type: Inpatient Age: 66 Gender: Male Attending MD: Asim Randolph MD Procedure: Upper GI endoscopy Providers: Asim Randolph MD Referring MD: Referred Self Indications: Dysphagia, Follow-up of esophageal stenosis Medicines: Monitored Anesthesia Care Complications: No immediate complications. Estimated blood loss: None. Estimated Blood Loss: Estimated blood loss: none. Procedure: Pre-Anesthesia Assessment: - Prior Anticoagulants: The patient has taken no previous anticoagulant or antiplatelet agents. - ASA Grade Assessment: II - A patient with mild systemic disease. After obtaining informed consent, the endoscope was passed under direct vision. Throughout the procedure, the patient's blood pressure, pulse, and oxygen saturations were monitored continuously. The Endoscope was introduced through the mouth, and advanced to the second part of duodenum. The upper GI endoscopy was accomplished without difficulty. The patient tolerated the procedure well. Findings: One benign-appearing, intrinsic severe stenosis was found 26 cm from the incisors. The stenosis was traversed after dilation. A TTS dilator was passed through the scope. Dilation with a 15-16.5-18 mm balloon dilator was performed to 16.5 mm. The dilation site was examined following endoscope reinsertion and showed moderate mucosal disruption and moderate improvement in luminal narrowing. Estimated blood loss: none. A medium-sized hiatal hernia was present. The entire examined stomach was normal. The duodenal bulb and second portion of the duodenum were normal. Estimated blood loss: none. Impression: - Benign-appearing esophageal stenosis. Dilated. - Medium-sized hiatal hernia. - Normal stomach. - Normal duodenal bulb and second portion of the duodenum. - No specimens collected. Recommendation: - Resume previous diet today. - [facility]. -protonix 40 mg BID -repeat EGD in 6 weeks Asim Randolph MD 04/27/2021 8:57:25 AM This report has been signed electronically. Note Initiated On: 04/27/2021 8:27 AM Number of Addenda: 0 I attest to the content of the Intraoperative Record and orders documented therein, exceptions below {[id number]}
[2021-04-27] MEDS: UMECLIDINIUM/VILANTEROL 62.5/25MCG 7 PUFFS/INHALER INH SCH (10:30)
[2021-04-27] MEDS: FLUTICASONE FUROATE 100MCG 14 PUFFS/INHALER INH SCH (10:30)
[2021-04-27] MEDS: MICONAZOLE NITRATE POWDER 43 GM EXT SCH ×2 (10:31→21:24)
[2021-04-27] MEDS: VALPROIC ACID SOLN 250 MG/5 ML UDC PO SCH (10:32)
[2021-04-27] MEDS: DICLOFENAC SOD 1% GEL 100 GM TUBE EXT SCH ×4 (10:32→21:24)
[2021-04-27] MEDS: FERROUS SULFATE ELIX 220MG/5ML PO SCH ×2 (10:52→16:29)
[2021-04-27] MEDS: ASCORBIC ACID 500 MG TAB PO SCH ×2 (10:53→21:25)
[2021-04-27] MEDS: CHOLECALCIFEROL 1,000 UNITS 25 MCG TAB PO SCH (10:53)
[2021-04-27] MEDS: ATORVASTATIN 40 MG TAB PO SCH (10:53)
[2021-04-27] MEDS: CYANOCOBALAMIN 500 MCG TABLET (VITAMIN B-12) PO SCH (10:53)
[2021-04-27] MEDS: FOLIC ACID 1 MG TAB PO SCH (10:53)
[2021-04-27] MEDS: LANSOPRAZOLE 30 MG SOLTAB PO SCH (10:53)
[2021-04-27] MEDS: buPROPion HCl 100 MG TABLET PO SCH (10:54)
[2021-04-27] MEDS: HYDROCORTISONE 10 MG TAB PO SCH ×2 (10:54→15:43)
[2021-04-27 11:05] LABS: Basophils # (auto) 0.02 K/uL (0-0.2); Basophils % (auto) 0.4 %; Eosinophils # (auto) 0.41 K/uL (0-0.5); Eosinophils % (auto) 7.3 %; Hematocrit (blood only) 32.4 % (42-52); Hemoglobin 10.6 g/dL (14.0-18.0); Lymphocytes # (auto) 1.14 K/uL (1.2-3.4); Lymphocytes % (auto) 20.2 %; Mean Corpuscular Hemoglobin 26.2 pg (25-34); Mean Corpuscular Hgb Conc 32.7 g/dL (32-36); Mean Platelet Volume 8.8 fL (7.4-10.4); Monocytes # (auto) 0.52 K/uL (0.11-0.59); Monocytes % (auto) 9.2 %; Neutrophils # (auto) 3.55 K/uL (1.4-6.5); Neutrophils % (auto) 62.9 %; Platelet Count 342 K/uL (130-400); RDW Coefficient of Variation 18.2 % (11.5-14.5); Red Blood Count 4.05 M/uL (4.7-6.1); White Blood Count 5.64 K/uL (4.8-10.8)
--- NOTE | 2021-04-27 11:13 | Hospitalist Progress Note ---
Date of Service April 27, 2021 Assessment & Plan (1) Fall: Plan: Suspect the patient's falls are multifactorial: generalized deconditioning, profound orthostatic hypotension He has frequent falls at home and uses a wheelchair but does stand and pivot to get in BP dropped to 70s systolic with PT eval on 03/18 and was symptomatic. Dropped to the 50s systolic on 03/24 with lightheadedness Dizziness intermittently improved with volume replacement Hgb initially low but then improved -- all without intervention (see below) Remained with some orthostasis on vitals with PT on 04/22, but now on po hydrocortisone and feels much better PT/OT reassess on 04/24 and doing better but still recommending rehab -he is still willing to go to rehab for short term with goal to get back home No further lightheadedness with standing and BPs much improved since starting po hydrocortisone -Reduced Seroquel from 50mg to 25mg -Added midodrine and previously titrated up to 7.5 mg TID, but now since starting hydrocortisone, BPs significantly improved--> weaned off midodrine -treating for adrenal insufficiency as below -home metoprolol stopped -PT/OT evaluations completed and recommending inpatient rehab versus SNF--> case mgmt on board but no beds and proving to be extremely difficult. Pt and ex- now requesting that he go home with home health if strength improves while here awaiting placement -asked nursing to get him out of bed to chair for all meals (2) Adrenal insufficiency: Plan: With weakness, nausea, worsening hyponatremia, orthostatic hypotension ongoing for a long time Initial fasting AM cortisol earlier in hospital course was low normal at 5, but now repeat even lower at 3 and no use of steroids More of a chronic presentation CT abd/pel on 03/17/21 with normal adrenal glands; Brain MRI 03/18/21 normal Perhaps related to autoimmune disorder? -on 04/22, started hydrocortisone 10mg in AM and 5mg in PM-significantly improv ed--> Na+ increasing and now normalized, BP improving, feels better - weaned off midodrine completely and BPs are excellent -will need f/u as Endocrine as outpt - ACTH level and plasma renin activity pending -may eventually need some po FLorinef as well -follow BMP (3) Anemia: Plan: hgb was 7.3 on arrival -- up to 10.1 without intervention/no transfusion- has yo-yo'ed between 8-10. Most likely margin of error in the lab Microcytic stool for occult blood negative x 2 Did have a W/U and Seen by established underwriting support specialist/oncologist-- started on Ferrous sulfate/folic acid and B12 -EGD on 04/13 - dilated esophagus due to benign appearing esophageal stenosis; gastritis with biopsy obtained - likely repeat endoscopy x 2 weeks for retreatment on 04/27/21 -- Pathology - chronic gastritis, mild; neg H. pylori, no metaplasia, dysplasia, or malignancy -follow CBC periodically (4) Hypotension: Plan: Initially thought secondary to Seroquel and metoprolol side effect, and did improve w/ addition of midodrine and dc of home metoprolol Now improving with po hydrocortisone -have now weaned off midodrine (5) Dysphagia: Plan: Had complaint of feeling like food is getting stuck with swallowing on 04/06 Has had intermittent episodes of vomiting after taking pills throughout his hospital stay Has a h/o esophageal strictures requiring dilatation in 2017 He would not be able to withstand a barium swallow as he cannot stand up for more than a few seconds to a minute at a time Now s/p esophageal dilatation on 04/13 for severe restriction and doing much better with swallowing - Tolerating diet -Continue Prevacid -changed bigger pills to liquids - GI following - esophageal dilatation on 04/27 completed -- Note mentions Protonix - will see if can continue Lansoprazole instead given the soluble nature and issues with pill swallowing (6) CKD (chronic kidney disease) stage 2, GFR 60-89 ml/min: Plan: Renal function appears to be at baseline in this patient, continue to monitor periodically (7) Chronic hypoxemic respiratory failure: Plan: chronic. No acute issues continue O2 prn-none needed for weeks (8) COPD (chronic obstructive pulmonary disease) with chronic bronchitis: Plan: Patient with a history of COPD, still smoking despite lung cancer diagnosis ? reoccurrence of non-small cell lung CA on imaging Trelegy (ICS/AC/LABA) as an outpatient We will substitute Anoro Ellipta (AC/LABA) and Arnuity Ellipta (ICS) while inpatient Oxygenating well on room air Supplemental oxygen as needed to maintain SaO2 between 88 and 92%-has not needed O2 in a long time pulmonology consulted-- appreciate recommendations. Continue to follow upon D/C neb treatments prn -has some wheezing occasionally (9) History of lung cancer: Plan: Hematology/oncology consulted -will pick out hand again as an outpatient on discharge, however not sure if patient would be a good candidate for any treatment moving forward given noncompliance although now that he will be in a SNF environment, would be better MRI brain w/wo contrast with no evidence of metastatic disease (10) Recurrent left pleural effusion: Plan: Pulmonology consulted/signed off given asymptomatic status- no intervention. Was tapped in the past. f/u as outpt with PULM (11) Hyponatremia: Plan: - Na continued to trend downward to 126, slowly worsening over the last month, usually improved with some volume replacement Na+ now acceptable after starting HC Urine Na+ 54, Ur Osm 632 which points towards either adrenal insufficiency vs SIADH as thyroid function is normal and he is euvolemic -suspected most likely from SIADH given lung CA, BUT with hypotension, and borderline low AM cortisol previously, could be AI--> repeated AM fasting cortisol and even lower at 3 -started po hydrocortisone as above Follow BMP q3 days (12) Peripheral arterial disease: Plan: Patient should be on antiplatelet/statin, started Plavix and statin History of aortofemoral bypass per prior notes hold Plavix for repeat EGD Tuesday (13) Bilateral carotid artery occlusion: Plan: started Plavix and statin this admission, but now holding Plavix again now for EGD (14) Unstageable pressure ulcer of left heel: Plan: XR ankle to assess for OM, no surrounding cellulitis Skin care per nursing protocol (15) Bipolar disorder: Plan: stable continue depakote but changed to liquid as tabs large and hard to swallow -continue reduced dose of seroquel and wellbutrin (16) Constipation: Plan: bowel protocol ordered on board; adequate bowel movements continue senna/docusate Miralax PRN (17) Right shoulder pain: Plan: - Voltaren gel to right shoulder (18) Candidal intertrigo: Plan: continue miconazole powder to groin bilat () Seborrhea: Plan: ears bilat -improved--> continue hydrocortisone cream bid x 2 week course to ears (04/26) Plan: Disposition: Patient will need usp facility or inpatient rehab. Lives alone in [place] and is quite debilitated, unable to care for self. Working with case management. still looking for rehab placement-no beds available, multiple referrals out Medically stable for discharge Was reassessed with PT/OT on 04/24 but still not able to safely go home unless had / care, so will continue with plan for rehab placement Admission and Anticipated Discharge Date Admission Date: March 20, 2021 Subjective Reports feeling well this morning. Seen post-EGD. Denies any throat, chest, or abdominal pain. Denies any dizziness. BP has been better controlled with hydrocortisone. Still agreeing to rehab placement at this time. Review of Systems Review of Systems: REVIEW OF SYSTEMS General/Constitutional: Denies fever/chills ENT: Denies sore throat or trouble swallowing Cardiovascular: Denies chest pain, palpitations, edema Respiratory: Denies cough, SOB GI: Denies nausea, vomiting, abdominal pain, constipation, diarrhea : Denies dysuria Musculoskeletal: Denies joint/muscle aches Neurologic: Denies dizziness/lightheadedness Physical Exam Physical Exam: PHYSICAL EXAM General Appearance: pale/frail male in NAD who is A&O x 3 HEENT: Head is normocephalic/atraumatic; Hearing grossly intact Neck: Supple; Trachea midline; Neg JVD Heart: RRR with no M/G/R Lungs: CTA in all lung [place] bilaterally but diminished at bases bilaterally; Respirations unlabored; Neg accessory muscle use Abdomen: Soft, non-tender, non-distended; Positive BS x 4 quadrants Extremities: Neg cyanosis or edema Neurological: Speech clear; Gross motor/sensory function intact; Neg focal neurologic deficits Psychiatric: Appropriate mood/affect Skin: Normal Color; Warm/Dry Results & Data Results & [facility] ([facility]) Vital Signs (Past 12 Hours) Vital Signs Temp Pulse Resp BP BP Pulse Ox 04/27/21 10:40 36.3 C L 98 H 16 129/81 04/27/21 10:10 36.4 C L 69 16 122/74 98 04/27/21 09:29 79 16 98/64 L 99 04/27/21 09:13 68 16 76/56 L 97 04/27/21 08:58 69 16 90/63 L 100 04/27/21 08:15 36.5 C 71 16 129/82 100 04/27/21 07:51 36.4 C L 72 16 126/79 99 04/26/21 23:42 36.7 C 74 16 100/63 99 PG Care Time/CCT Total # of Minutes Spent Total Time Spent with Patient: Total time spent is greater than 50% in coordination of care (as documented) at patient's floor/unit and/or counseling patient: Coding Level of Care Code 12298 Subseq Hosp Care Lvl 3 Diagnoses Fall W19.XXXA Encounter type: initial encounter Adrenal insufficiency E27.40 Anemia D64.9 Hypotension I95.9 Dysphagia R13.10 CKD (chronic kidney disease) stage 2, GFR 60-89 ml/min N18.2 Chronic hypoxemic respiratory failure J96.11 COPD (chronic obstructive pulmonary disease) with chronic bronchitis J44.9 History of lung cancer Z85.118 Recurrent left pleural effusion J90 Hyponatremia E87.1 Peripheral arterial disease I73.9 Bilateral carotid artery occlusion I65.23 Unstageable pressure ulcer of left heel L89.620 Bipolar disorder F31.9 Most recent bipolar episode type: most recent episode unspecified type Constipation K59.00 Right shoulder pain M25.511 Candidal intertrigo B37.2 Seborrhea L21.9 (1) Fall Encounter type: initial encounter Qualified Code(s): W19.XXXA - Unspecified fall, initial encounter (2) Bipolar disorder Most recent bipolar episode type: most recent episode unspecified type
[2021-04-27 11:27] LABS: BUN Creatinine Ratio 19.6 (10-20); Calcium 8.6 mg/dl (8.5-10.1); Creatinine Clr Calc Pharmacy 91.7 ml/min; Est GFR (African American) 114.5 ml/min; Est GFR (Non-African American) 98.8 ml/min; Potassium 4.6 mmol/L (3.5-5.1)
[2021-04-27] MEDS: QUEtiapine FUMARATE 25 MG TABLET PO SCH (21:24)
[2021-04-27] MEDS: VALPROIC ACID SOLN 500 MG/10 ML UDC PO SCH (21:25)
[2021-04-28] MEDS: FERROUS SULFATE ELIX 220MG/5ML PO SCH ×2 (07:57→18:11)
[2021-04-28] MEDS: ASCORBIC ACID 500 MG TAB PO SCH ×2 (07:58→20:19)
[2021-04-28] MEDS: FOLIC ACID 1 MG TAB PO SCH (07:58)
[2021-04-28] MEDS: LANSOPRAZOLE 30 MG SOLTAB PO SCH (07:59)
[2021-04-28] MEDS: CYANOCOBALAMIN 500 MCG TABLET (VITAMIN B-12) PO SCH (07:59)
[2021-04-28] MEDS: HYDROCORTISONE 10 MG TAB PO SCH ×2 (08:01→18:10)
[2021-04-28] MEDS: buPROPion HCl 100 MG TABLET PO SCH (08:01)
[2021-04-28] MEDS: CHOLECALCIFEROL 1,000 UNITS 25 MCG TAB PO SCH (08:01)
[2021-04-28] MEDS: ATORVASTATIN 40 MG TAB PO SCH (08:02)
[2021-04-28] MEDS: DICLOFENAC SOD 1% GEL 100 GM TUBE EXT SCH ×5 (08:04→20:24)
[2021-04-28 08:31] LABS: Renin Activity 1.93 ng/mL/h (0.25-5.82)
[2021-04-28] MEDS: MICONAZOLE NITRATE POWDER 43 GM EXT SCH ×2 (15:56→20:20)
[2021-04-28] MEDS: FLUTICASONE FUROATE 100MCG 14 PUFFS/INHALER INH SCH (15:56)
[2021-04-28] MEDS: UMECLIDINIUM/VILANTEROL 62.5/25MCG 7 PUFFS/INHALER INH SCH (15:56)
[2021-04-28] MEDS: VALPROIC ACID SOLN 250 MG/5 ML UDC PO SCH (15:57)
--- NOTE | 2021-04-28 19:07 | Hospitalist Progress Note ---
Date of Service April 28, 2021 Assessment & Plan (1) Fall: Plan: Suspect the patient's falls are multifactorial: generalized deconditioning, profound orthostatic hypotension He has frequent falls at home and uses a wheelchair but was standing to pivot previously but has more been shuffling/scooting from chair BP dropped to 70s systolic with PT eval on 03/18 and was symptomatic. Dropped to the 50s systolic on 03/24 with lightheadedness Dizziness intermittently improved with volume replacement Hgb initially low but then improved -- all without intervention (see below) Remained with some orthostasis on vitals with PT on 04/22, but now on po hydrocortisone and feels much better PT/OT reassess on 04/24 and doing better but still recommending rehab -he is still willing to go to rehab for short term with goal to get back home - but would like to go home and will have him work with therapy on his scooting transfers this week to possibly allow him to safely transition home with help from ex , friend, and sister No further lightheadedness currently and BPs much improved since starting po hydrocortisone - was actually able to stand during PT today for about 10 seconds -Reduced Seroquel from 50mg to 25mg -Added midodrine and previously titrated up to 7.5 mg TID, but now since starting hydrocortisone, BPs significantly improved--> weaned off midodrine -treating for adrenal insufficiency as below -home metoprolol stopped -PT/OT evaluations completed and recommending inpatient rehab versus SNF unless can get transfers--> case mgmt on board but no beds and proving to be extremely difficult. Pt and ex- now requesting that he go home with home health if strength improves while here awaiting placement -asked nursing to get him out of bed to chair for all meals (2) Adrenal insufficiency: Plan: With weakness, nausea, worsening hyponatremia, orthostatic hypotension ongoing for a long time Initial fasting AM cortisol earlier in hospital course was low normal at 5, but now repeat even lower at 3 and no use of steroids More of a chronic presentation CT abd/pel on 03/17/21 with normal adrenal glands; Brain MRI 03/18/21 normal Perhaps related to autoimmune disorder? -on 04/22, started hydrocortisone 10mg in AM and 5mg in PM-significantly improved--> Na+ increasing and now normalized, BP improving, feels better - weaned off midodrine completely and BPs are excellent -will need f/u as Endocrine as outpt - ACTH level is 10 and plasma renin activity 1.93 -may eventually need some po Florinef as well -follow BMP (3) Anemia: Plan: hgb was 7.3 on arrival -- up to 10.1 without intervention/no transfusion- has yo-yo'ed between 8-10. 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 pylori, no metaplasia, dysplasia, or malignancy -follow CBC periodically (4) Hypotension: Plan: Initially thought secondary to Seroquel and metoprolol side effect, and did improve w/ addition of midodrine and dc of home metoprolol Now improving with po hydrocortisone -have now weaned off midodrine (5) Dysphagia: Plan: Had complaint of feeling like food is getting stuck with swallowing on 04/06 Has had intermittent episodes of vomiting after taking pills throughout his hospital stay Has a h/o esophageal strictures requiring dilatation in 2017 He would not be able to withstand a barium swallow as he cannot stand up for more than a few seconds to a minute at a time Now s/p esophageal dilatation on 04/13 for severe restriction and doing much better with swallowing - Tolerating diet -Continue Prevacid -changed bigger pills to liquids - GI following - esophageal dilatation on 04/27 completed -- Note mentions Protonix - will see if can continue Lansoprazole instead given the soluble nature and issues with pill swallowing (6) CKD (chronic kidney disease) stage 2, GFR 60-89 ml/min: Plan: Renal function appears to be at baseline in this patient, continue to monitor periodically (7) Chronic hypoxemic respiratory failure: Plan: chronic. No acute issues continue O2 prn-none needed for weeks (8) COPD (chronic obstructive pulmonary disease) with chronic bronchitis: Plan: Patient with a history of COPD, still smoking despite lung cancer diagnosis ? reoccurrence of non-small cell lung CA on imaging Trelegy (ICS/AC/LABA) as an outpatient We will substitute Anoro Ellipta (AC/LABA) and Arnuity Ellipta (ICS) while inpatient Oxygenating well on room air Supplemental oxygen as needed to maintain SaO2 between 88 and 92%-has not needed O2 in a long time pulmonology consulted-- appreciate recommendations. 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 Was tapped in the past. f/u as outpt with PULM (11) Hyponatremia: Plan: - Na continued to trend downward to 126, slowly worsening over the last month, usually improved with some volume replacement -- Na+ now acceptable after starting HC Urine Na+ 54, Ur Osm 632 which points towards either adrenal insufficiency vs SIADH as thyroid function is normal and he is euvolemic -suspected most likely from SIADH given lung CA, BUT with hypotension, and borderline low AM cortisol previously, could be AI--> repeated AM fasting cortisol and even lower at 3 -started po hydrocortisone as above Follow BMP q3 days (12) Peripheral arterial disease: Plan: Patient should be on antiplatelet/statin, started Plavix and statin History of aortofemoral bypass per prior notes hold Plavix for repeat EGD Tuesday (13) Bilateral carotid artery occlusion: Plan: started Plavix and statin this admission, but now holding Plavix again now for EGD (14) Unstageable pressure ulcer of left heel: Plan: XR ankle to assess for OM, no surrounding cellulitis Skin care per nursing protocol (15) Bipolar disorder: Plan: stable continue depakote but changed to liquid as tabs large and hard to swallow -continue reduced dose of seroquel and wellbutrin (16) Constipation: Plan: bowel protocol ordered on board; adequate bowel movements continue senna/docusate Miralax PRN (17) Right shoulder pain: Plan: - Voltaren gel to right shoulder (18) Candidal intertrigo: Plan: continue miconazole powder to groin bilat (19) Seborrhea: Plan: ears bilat -improved--> completed hydrocortisone cream bid x 2 week course to ears Plan: Disposition: Lives alone in [facility] and is quite debilitated, unable to care for self. Working with case management. still looking for rehab placement-no beds available, multiple referrals out -- Working on transfers to possible see if we can get him home with family support Medically stable for discharge if rehab is found and willing to go Admission and Anticipated Discharge Date Admission Date: March 20, 2021 Subjective Reports doing well. Denies throat pain or difficulty swallowing. Worked with therapy and are working on doing transfers how he does at home as family/friends are looking to assist him at home. He denies having dizziness when doing movements and was able to stand for about 10 seconds Review of Systems Review of Systems: All systems reviewed & are unremarkable except as noted in Subjective Physical Exam Physical Exam: PHYSICAL EXAM General Appearance: pale/frail male in NAD who is A&O x 3 HEENT: Head is normocephalic/atraumatic; Hearing grossly intact Neck: Supple; Trachea midline; Neg JVD Heart: RRR with no M/G/R Lungs: CTA in all lung goldberg bilaterally but diminished at bases bilaterally; Respirations unlabored; Neg accessory muscle use Abdomen: Soft, non-tender, non-distended; Positive BS x 4 quadrants Extremities: Neg cyanosis or edema Neurological: Speech clear; Gross motor/sensory function intact; Neg focal neurologic deficits Psychiatric: Appropriate mood/affect Skin: Normal Color; Warm/Dry PG Care Time/CCT Total # of Minutes Spent Total Time Spent with Patient: Total time spent is greater than 50% in coordination of care (as documented) at patient's floor/unit and/or counseling patient: Coding Level of Care Code 70875 Subseq Hosp Care Lvl 2 Diagnoses Fall W19.XXXA Encounter type: initial encounter Adrenal insufficiency E27.40 Anemia D64.9 Hypotension I95.9 Dysphagia R13.10 CKD (chronic kidney disease) stage 2, GFR 60-89 ml/min N18.2 Chronic hypoxemic respiratory failure J96.11 COPD (chronic obstructive pulmonary disease) with chronic bronchitis J44.9 History of lung cancer Z85.118 Recurrent left pleural effusion J90 Hyponatremia E87.1 Peripheral arterial disease I73.9 Bilateral carotid artery occlusion I65.23 Unstageable pressure ulcer of left heel L89.620 Bipolar disorder F31.9 Most recent bipolar episode type: most recent episode unspecified type Constipation K59.00 Right shoulder pain M25.511 Candidal intertrigo B37.2 Seborrhea L21.9 (1) Fall Encounter type: initial encounter Qualified Code(s): W19.XXXA - Unspecified fall, initial encounter (2) Bipolar disorder Most recent bipolar episode type: most recent episode unspecified type
[2021-04-28] MEDS: QUEtiapine FUMARATE 25 MG TABLET PO SCH (20:18)
[2021-04-28] MEDS: VALPROIC ACID SOLN 500 MG/10 ML UDC PO SCH (20:19)
[2021-04-29 07:30] LABS: Hematocrit (blood only) 32.1 % (42-52); Hemoglobin 10.6 g/dL (14.0-18.0); Mean Corpuscular Hemoglobin 26.4 pg (25-34); Mean Platelet Volume 8.9 fL (7.4-10.4); Platelet Count 350 K/uL (130-400); RDW Coefficient of Variation 18.4 % (11.5-14.5); RDW Standard Deviation 54.2 fL (36.4-46.3); Red Blood Count 4.01 M/uL (4.7-6.1); White Blood Count 6.21 K/uL (4.8-10.8)
[2021-04-29] MEDS: FERROUS SULFATE ELIX 220MG/5ML PO SCH ×2 (07:47→18:12)
[2021-04-29] MEDS: ASCORBIC ACID 500 MG TAB PO SCH ×2 (07:47→21:24)
[2021-04-29] MEDS: HYDROCORTISONE 10 MG TAB PO SCH ×2 (07:48→18:12)
[2021-04-29] MEDS: FOLIC ACID 1 MG TAB PO SCH (07:48)
[2021-04-29] MEDS: CHOLECALCIFEROL 1,000 UNITS 25 MCG TAB PO SCH (07:49)
[2021-04-29] MEDS: ATORVASTATIN 40 MG TAB PO SCH (07:49)
[2021-04-29] MEDS: buPROPion HCl 100 MG TABLET PO SCH (07:50)
[2021-04-29] MEDS: CYANOCOBALAMIN 500 MCG TABLET (VITAMIN B-12) PO SCH (07:50)
[2021-04-29] MEDS: LANSOPRAZOLE 30 MG SOLTAB PO SCH (07:50)
[2021-04-29] MEDS: VALPROIC ACID SOLN 250 MG/5 ML UDC PO SCH (07:51)
[2021-04-29 07:55] LABS: BUN Creatinine Ratio 28.9 (10-20); Calcium 8.8 mg/dl (8.5-10.1); Creatinine Clr Calc Pharmacy 102.2 ml/min; Est GFR (African American) 119.8 ml/min; Est GFR (Non-African American) 103.3 ml/min; Potassium 4.1 mmol/L (3.5-5.1)
[2021-04-29] MEDS: MICONAZOLE NITRATE POWDER 43 GM EXT SCH ×2 (09:00→21:24)
[2021-04-29] MEDS: DICLOFENAC SOD 1% GEL 100 GM TUBE EXT SCH ×3 (12:17→21:24)
[2021-04-29] MEDS: FLUTICASONE FUROATE 100MCG 14 PUFFS/INHALER INH SCH (12:17)
[2021-04-29] MEDS: UMECLIDINIUM/VILANTEROL 62.5/25MCG 7 PUFFS/INHALER INH SCH (12:17)
--- NOTE | 2021-04-29 16:32 | Hospitalist Progress Note ---
Date of Service April 29, 2021 Assessment & Plan (1) Fall: Plan: - Suspect the patient's falls are multifactorial: generalized deconditioning, profound orthostatic hypotension -- Sister reports his ambulation has declined since 2015 when he had non- healing ulcers that limited his weightbearing due to pain - He has frequent falls at home and uses a wheelchair but was standing to pivot previously but has more been shuffling/scooting from chair to commode, etc BP dropped to 70s systolic with PT eval on 03/18 and was symptomatic. Dropped to the 50s systolic on 03/24 with lightheadedness Dizziness intermittently improved with volume replacement Hgb initially low but then improved -- all without intervention (see below) Remained with some orthostasis on vitals with PT on 04/22, but now on po hydrocortisone and feels much better -he is still willing to go to rehab for short term with goal to get back home - but would like to go home if able and will have him work with therapy on his scooting transfers this week to possibly allow him to safely transition home with help from ex , friend, and sister (family all on board with this as patient is not ambulatory at baseline) -- Worked with therapy today and was able to transfer from bed to wheelchair, move chair around room, but unable to transfer back from chair to bed. Actually stood for about 10 seconds the other day which is actually a big improvement. Even though not ideal, this is close this is norm and is alert and oriented with family/friend support that could consider going back home. Will continue to have PT work with him over the next couple days No further lightheadedness currently and BPs much improved since starting po hydrocortisone -Reduced Seroquel from 50mg to 25mg -Added midodrine and previously titrated up to 7.5 mg TID, but now since starting hydrocortisone, BPs significantly improved--> weaned off midodrine -treating for adrenal insufficiency as below -home metoprolol stopped -asked nursing to get him out of bed to chair for all meals (2) Adrenal insufficiency: Plan: With weakness, nausea, worsening hyponatremia, orthostatic hypotension ongoing for a long time Initial fasting AM cortisol earlier in hospital course was low normal at 5, but now repeat even lower at 3 and no use of steroids More of a chronic presentation CT abd/pel on 03/17/21 with normal adrenal glands; Brain MRI 03/18/21 normal Perhaps related to autoimmune disorder? -on 04/22, started hydrocortisone 10mg in AM and 5mg in PM-significantly i mproved--> Na+ increasing and now normalized, BP improving, feels better - weaned off midodrine completely and BPs are excellent -will need f/u as Endocrine as outpt - ACTH level is 10 and plasma renin activity 1.93 -may eventually need some po Florinef as well -follow BMP (3) Anemia: Plan: hgb was 7.3 on arrival -- up to 10.1 without intervention/no transfusion- has yo-yo'ed between 8-10. Most likely margin of error in the lab Microcytic stool for occult blood negative x 2 Did have a W/U and Seen by established archival studies professor/oncologist-- started on Ferrous sulfate/folic acid and B12 -EGD on 04/13 - dilated esophagus due to benign appearing esophageal stenosis; gastritis with biopsy obtained - repeated endoscopy for retreatment on 04/27/21 -- Pathology - chronic gastritis, mild; neg H. pylori, no metaplasia, dysplasia, or malignancy -follow CBC periodically (4) Hypotension: Plan: Initially thought secondary to Seroquel and metoprolol side effect, and did improve w/ addition of midodrine and dc of home metoprolol Now improving with po hydrocortisone -have now weaned off midodrine (5) Dysphagia: Plan: Had complaint of feeling like food is getting stuck with swallowing on 04/06 Has had intermittent episodes of vomiting after taking pills throughout his hospital stay Has a h/o esophageal strictures requiring dilatation in 2017 He would not be able to withstand a barium swallow as he cannot stand up for more than a few seconds to a minute at a time Now s/p esophageal dilatation on 04/13 for severe restriction and doing much better with swallowing - Tolerating diet -Continue Prevacid -changed bigger pills to liquids - GI following - esophageal dilatation on 04/27 completed -- Note mentions Protonix - will see if can continue Lansoprazole instead given the soluble nature and issues with pill swallowing (6) CKD (chronic kidney disease) stage 2, GFR 60-89 ml/min: Plan: Renal function appears to be at baseline in this patient, continue to monitor periodically (7) Chronic hypoxemic respiratory failure: Plan: chronic. No acute issues continue O2 prn-none needed for weeks (8) COPD (chronic obstructive pulmonary disease) with chronic bronchitis: Plan: Patient with a history of COPD, still smoking despite lung cancer diagnosis ? reoccurrence of non-small cell lung CA on imaging Trelegy (ICS/AC/LABA) as an outpatient We will substitute Anoro Ellipta (AC/LABA) and Arnuity Ellipta (ICS) while inpatient Oxygenating well on room air Supplemental oxygen as needed to maintain SaO2 between 88 and 92%-has not needed O2 in a long time pulmonology consulted-- appreciate recommendations. 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 Was tapped in the past. f/u as outpt with PULM (11) Hyponatremia: Plan: - Na continued to trend downward to 126, slowly worsening over the last month, usually improved with some volume replacement -- Na+ now acceptable after starting HC Urine Na+ 54, Ur Osm 632 which points towards either adrenal insufficiency vs SIADH as thyroid function is normal and he is euvolemic -suspected most likely from SIADH given lung CA, BUT with hypotension, and borderline low AM cortisol previously, could be AI--> repeated AM fasting cortisol and even lower at 3 -started po hydrocortisone as above Follow BMP q3 days (12) Peripheral arterial disease: Plan: Patient should be on antiplatelet/statin, started Plavix and statin History of aortofemoral bypass per prior notes hold Plavix for repeat EGD Tuesday (13) Bilateral carotid artery occlusion: Plan: started Plavix and statin this admission, but now holding Plavix again now for EGD (14) Unstageable pressure ulcer of left heel: Plan: XR ankle to assess for OM, no surrounding cellulitis Skin care per nursing protocol (15) Bipolar disorder: Plan: stable continue depakote but changed to liquid as tabs large and hard to swallow -continue reduced dose of seroquel and wellbutrin (16) Constipation: Plan: bowel protocol ordered on board; adequate bowel movements continue senna/docusate Miralax PRN (17) Right shoulder pain: Plan: - Voltaren gel to right shoulder (18) Candidal intertrigo: Plan: continue miconazole powder to groin bilat (19) Seborrhea: Plan: ears bilat -improved--> completed hydrocortisone cream bid x 2 week course to ears Plan: Disposition: Lives alone in [facility] and is quite debilitated (prolonged course of mobility issues) Working with case management. still looking for rehab placement-no beds available, multiple referrals out -- Working on transfers to see if we can get him home with family support Medically stable for discharge if rehab is found and willing to go Admission and Anticipated Discharge Date Admission Date: March 20, 2021 Subjective Reports no complaints today. No dizziness and worked with therapy. Continues to tolerate diet since have repeat dilation. Review of Systems Review of Systems: All systems reviewed & are unremarkable except as noted in Subjective Physical Exam Physical Exam: PHYSICAL EXAM General Appearance: pale/frail male in NAD who is A&O x 3 HEENT: Head is normocephalic/atraumatic; Hearing grossly intact Neck: Supple; Trachea midline; Neg JVD Heart: RRR with no M/G/R Lungs: CTA in all lung goldberg bilaterally but diminished at bases bilaterally; Respirations unlabored; Neg accessory muscle use Abdomen: Soft, non-tender, non-distended; Positive BS x 4 quadrants Extremities: Neg cyanosis or edema Neurological: Speech clear; Gross motor/sensory function intact; Neg focal ne urologic deficits Psychiatric: Appropriate mood/affect Skin: Normal Color; Warm/Dry Results & Data Results & Data ([facility]) Vital Signs (Past 12 Hours) Vital Signs Temp Pulse Resp BP BP Pulse Ox 04/29/21 15:37 36.4 C L 84 16 103/67 98 04/29/21 07:40 36.8 C 75 14 107/69 99 PG Care Time/CCT Total # of Minutes Spent Total Time Spent with Patient: Total time spent is greater than 50% in coordination of care (as documented) at patient's floor/unit and/or counseling patient: Coding Level of Care Code 52590 Subseq Hosp Care Lvl 2 Diagnoses Fall W19.XXXA Encounter type: initial encounter Adrenal insufficiency E27.40 Anemia D64.9 Hypotension I95.9 Dysphagia R13.10 CKD (chronic kidney disease) stage 2, GFR 60-89 ml/min N18.2 Chronic hypoxemic respiratory failure J96.11 COPD (chronic obstructive pulmonary disease) with chronic bronchitis J44.9 History of lung cancer Z85.118 Recurrent left pleural effusion J90 Hyponatremia E87.1 Peripheral arterial disease I73.9 Bilateral carotid artery occlusion I65.23 Unstageable pressure ulcer of left heel L89.620 Bipolar disorder F31.9 Most recent bipolar episode type: most recent episode unspecified type Constipation K59.00 Right shoulder pain M25.511 Candidal intertrigo B37.2 Seborrhea L21.9 (1) Fall Encounter type: initial encounter Qualified Code(s): W19.XXXA - Unspecified fall, initial encounter (2) Bipolar disorder Most recent bipolar episode type: most recent episode unspecified type
[2021-04-29] MEDS: QUEtiapine FUMARATE 25 MG TABLET PO SCH (21:24)
[2021-04-29] MEDS: VALPROIC ACID SOLN 500 MG/10 ML UDC PO SCH (21:24)
--- NOTE | 2021-04-30 07:56 | Hospitalist Progress Note ---
Date of Service April 30, 2021 Assessment & Plan (1) Adrenal insufficiency: Plan: Admitted with weakness, nausea, worsening hyponatremia, orthostatic hypotension ongoing for a long time Initial fasting AM cortisol earlier in hospital course was low normal at 5, but now repeat even lower at 3 and no use of steroids More of a chronic presentation CT abd/pel on 03/17/21 with normal adrenal glands; Brain MRI 03/18/21 normal Perhaps related to autoimmune disorder? -on 04/22, started hydrocortisone 10mg in AM and 5mg in PM-significantly improved--> Na+ increasing and now normalized, BP improving, feels better - weaned off midodrine completely and BPs are excellent -will need f/u as Endocrine as outpt - ACTH level is 10 and plasma renin activity 1.93 -Blood pressure slightly low at times may consider Florinef if persistent (2) Anemia: Plan: hgb was 7.3 on arrival -- up to 10.1 without intervention/no transfusion- has yo-yo'ed between 8-10. Most likely margin of error in the lab Microcytic stool for occult blood negative x 2 Did have a W/U and Seen by established flat knitter helper/oncologist-- started on Ferrous sulfate/folic acid and B12 -EGD on 04/13 - dilated esophagus due to benign appearing esophageal stenosis; gastritis with biopsy obtained - repeated endoscopy for retreatment on 04/27/21 -- Pathology - chronic gastritis, mild; neg H. pylori, no metaplasia, dysplasia, or malignancy (3) Hypotension: Plan: Initially thought secondary to Seroquel and metoprolol side effect, and did im prove w/ addition of midodrine and dc of home metoprolol Now improving with po hydrocortisone -have now weaned off midodrine (4) Dysphagia: Plan: Had complaint of feeling like food is getting stuck with swallowing on 04/06 Has had intermittent episodes of vomiting after taking pills throughout his hospital stay Has a h/o esophageal strictures requiring dilatation in 2017 He would not be able to withstand a barium swallow as he cannot stand up for more than a few seconds to a minute at a time Now s/p esophageal dilatation on 04/13 for severe restriction and doing much better with swallowing - Tolerating diet -Continue Prevacid -changed bigger pills to liquids - GI following - esophageal dilatation on 04/27 completed -- Note mentions Protonix - will see if can continue Lansoprazole instead given the soluble nature and issues with pill swallowing (5) CKD (chronic kidney disease) stage 2, GFR 60-89 ml/min: Plan: Renal function appears to be at baseline in this patient, continue to monitor periodically (6) Chronic hypoxemic respiratory failure: Plan: chronic. No acute issues continue O2 prn-none needed for weeks (7) COPD (chronic obstructive pulmonary disease) with chronic bronchitis: Plan: Patient with a history of COPD, still smoking despite lung cancer diagnosis ? reoccurrence of non-small cell lung CA on imaging Trelegy (ICS/AC/LABA) as an outpatient We will substitute Anoro Ellipta (AC/LABA) and Arnuity Ellipta (ICS) while inpatient Oxygenating well on room air Supplemental oxygen as needed to maintain SaO2 between 88 and 92%-has not needed O2 in a long time pulmonology consulted-- appreciate recommendations. 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 Was tapped in the past. 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, improved with steroid replacement (11) Peripheral arterial disease: Plan: Patient should be on antiplatelet/statin, started Plavix and statin History of aortofemoral bypass per prior notes (12) Bilateral carotid artery occlusion: Plan: started Plavix and statin this admission, will resume (13) Unstageable pressure ulcer of left heel: Plan: no osteo continue local care (14) Bipolar disorder: Plan: stable continue depakote but changed to liquid as tabs large and hard to swallow -continue reduced dose of seroquel and wellbutrin (15) Constipation: Plan: bowel protocol ordered on board; adequate bowel movements continue senna/docusate Miralax PRN (16) Right shoulder pain: Plan: - Voltaren gel to right shoulder (17) Candidal intertrigo: Plan: Resolved with miconazole powder (18) Seborrhea: Plan: ears bilat -improved--> completed hydrocortisone cream bid x 2 week course to ears Plan: Disposition: Lives alone in [facility] and is quite debilitated (prolonged course of mobility issues) Working with case management. still looking for rehab placement-no beds available, multiple referrals out -- Working on transfers to see if we can get him home with family support Medically stable for discharge if rehab is found and willing to go Admission and Anticipated Discharge Date Admission Date: March 20, 2021 Subjective Reports no complaints today. No dizziness and worked with therapy. Continues to tolerate diet since have repeat dilation. Review of Systems Review of Systems: REVIEW OF SYSTEMS General/Constitutional: Denies fever/chills ENT: Denies sore throat or trouble swallowing Cardiovascular: Denies chest pain, palpitations, edema Respiratory: Denies cough, SOB GI: Denies nausea, vomiting, abdominal pain, constipation, diarrhea : Denies dysuria Musculoskeletal: Denies joint/muscle aches Neurologic: Denies dizziness/lightheadedness Physical Exam Physical Exam: The patient appeared well Vital signs as documented. Lungs are clear to auscultation and appear unlabored Cardiac exam, Rhythm is regular.. No murmurs, rubs or gallops. Abdominal exam reveals normal bowel sounds, soft non tender, no masses Extremities are nonedematous and both pedal pulses are normal. Neurologic exam is alert and oriented, no focal loss of strength or sensation Skin is without bruises or rashes Psychologically is without concerns for anxiety or depression. Results & Data Results & Data ([facility]) Vital Signs (Past 12 Hours) Vital Signs Temp Pulse Resp BP Pulse Ox 04/29/21 23:34 98.6 F 80 17 108/71 98 PG Care Time/CCT Total # of Minutes Spent Total Time Spent with Patient: Total time spent is greater than 50% in coordination of care (as documented) at patient's floor/unit and/or counseling patient: Coding Level of Care Code 53977 Subseq Hosp Care Lvl 1 Diagnoses Adrenal insufficiency E27.40 Anemia D64.9 Hypotension I95.9 Dysphagia R13.10 CKD (chronic kidney disease) stage 2, GFR 60-89 ml/min N18.2 Chronic hypoxemic respiratory failure J96.11 COPD (chronic obstructive pulmonary disease) with chronic bronchitis J44.9 History of lung cancer Z85.118 Recurrent left pleural effusion J90 Hyponatremia E87.1 Peripheral arterial disease I73.9 Bilateral carotid artery occlusion I65.23 Unstageable pressure ulcer of left heel L89.620 Bipolar disorder F31.9 Most recent bipolar episode type: most recent episode unspecified type Constipation K59.00 Right shoulder pain M25.511 Candidal intertrigo B37.2 Seborrhea L21.9 (1) Bipolar disorder Most recent bipolar episode type: most recent episode unspecified type
[2021-04-30] MEDS: FERROUS SULFATE ELIX 220MG/5ML PO SCH ×2 (08:17→18:48)
[2021-04-30] MEDS: VALPROIC ACID SOLN 250 MG/5 ML UDC PO SCH (08:17)
[2021-04-30] MEDS: CHOLECALCIFEROL 1,000 UNITS 25 MCG TAB PO SCH (08:17)
[2021-04-30] MEDS: HYDROCORTISONE 10 MG TAB PO SCH ×2 (08:17→16:35)
[2021-04-30] MEDS: CYANOCOBALAMIN 500 MCG TABLET (VITAMIN B-12) PO SCH (08:18)
[2021-04-30] MEDS: LANSOPRAZOLE 30 MG SOLTAB PO SCH (08:19)
[2021-04-30] MEDS: FOLIC ACID 1 MG TAB PO SCH (08:19)
[2021-04-30] MEDS: buPROPion HCl 100 MG TABLET PO SCH (08:20)
[2021-04-30] MEDS: ASCORBIC ACID 500 MG TAB PO SCH ×2 (08:21→20:44)
[2021-04-30] MEDS: ATORVASTATIN 40 MG TAB PO SCH (08:21)
[2021-04-30] MEDS: UMECLIDINIUM/VILANTEROL 62.5/25MCG 7 PUFFS/INHALER INH SCH (08:22)
[2021-04-30] MEDS: FLUTICASONE FUROATE 100MCG 14 PUFFS/INHALER INH SCH (08:23)
[2021-04-30] MEDS: DICLOFENAC SOD 1% GEL 100 GM TUBE EXT SCH ×3 (14:45→20:35)
[2021-04-30] MEDS: CLOPIDOGREL BISULFATE 75 MG TAB PO SCH (16:34)
[2021-04-30] MEDS: MICONAZOLE NITRATE POWDER 43 GM EXT SCH ×2 (16:36→20:44)
[2021-04-30] MEDS: VALPROIC ACID SOLN 500 MG/10 ML UDC PO SCH (20:44)
[2021-04-30] MEDS: QUEtiapine FUMARATE 25 MG TABLET PO SCH (20:44)
[2021-05-01] MEDS: ASCORBIC ACID 500 MG TAB PO SCH ×2 (07:23→21:07)
[2021-05-01] MEDS: VALPROIC ACID SOLN 250 MG/5 ML UDC PO SCH (07:23)
[2021-05-01] MEDS: UMECLIDINIUM/VILANTEROL 62.5/25MCG 7 PUFFS/INHALER INH SCH (07:23)
[2021-05-01] MEDS: MICONAZOLE NITRATE POWDER 43 GM EXT SCH ×2 (07:24→21:07)
[2021-05-01] MEDS: ATORVASTATIN 40 MG TAB PO SCH (07:25)
[2021-05-01] MEDS: HYDROCORTISONE 10 MG TAB PO SCH ×2 (07:25→16:15)
[2021-05-01] MEDS: buPROPion HCl 100 MG TABLET PO SCH (07:25)
[2021-05-01] MEDS: FOLIC ACID 1 MG TAB PO SCH (07:25)
[2021-05-01] MEDS: FERROUS SULFATE ELIX 220MG/5ML PO SCH ×2 (07:25→16:15)
[2021-05-01] MEDS: LANSOPRAZOLE 30 MG SOLTAB PO SCH (07:26)
[2021-05-01] MEDS: FLUTICASONE FUROATE 100MCG 14 PUFFS/INHALER INH SCH (07:26)
[2021-05-01] MEDS: CHOLECALCIFEROL 1,000 UNITS 25 MCG TAB PO SCH (07:26)
[2021-05-01] MEDS: DICLOFENAC SOD 1% GEL 100 GM TUBE EXT SCH (07:27)
[2021-05-01] MEDS: CLOPIDOGREL BISULFATE 75 MG TAB PO SCH (09:58)
[2021-05-01] MEDS ORDERED: DICLOFENAC SOD 1% GEL 100 GM TUBE EXT PRN (10:08)
--- NOTE | 2021-05-01 13:58 | Hospitalist Progress Note ---
Date of Service May 01, 2021 Assessment & Plan (1) Adrenal insufficiency: Plan: Admitted with weakness, nausea, worsening hyponatremia, orthostatic hypotension ongoing for a long time Initial fasting AM cortisol earlier in hospital course was low normal at 5, but now repeat even lower at 3 and no use of steroids More of a chronic presentation CT abd/pel on 03/17/21 with normal adrenal glands; Brain MRI 03/18/21 normal Perhaps related to autoimmune disorder? -on 04/22, started hydrocortisone 10mg in AM and 5mg in PM-significantly improved--> Na+now normalized, BP improving, feels better - weaned off midodrine completely and BPs still lower, may need to restart or consider Florinef but pt is without symptoms -will need f/u as Endocrine as outpt - ACTH level is 10 and plasma renin activity 1.93 (2) Anemia: Plan: hgb was 7.3 on arrival -- up to 10.1 without intervention/no transfusion- has yo-yo'ed between 8-10. Most likely margin of error in the lab Microcytic stool for occult blood negative x 2 Did have a W/U and Seen by established silk screen etcher/oncologist-- started on Ferrous sulfate/folic acid and B12 -EGD on 04/13 - dilated esophagus due to benign appearing esophageal stenosis; gastritis with biopsy obtained - repeated endoscopy for retreatment on 04/27/21 -- Pathology - chronic gastritis, mild; neg H. pylori, no metaplasia, dysplasia, or malignancy (3) Hypotension: Plan: Initially thought secondary to Seroquel and metoprolol side effect, and did improve w/ hydroortisone, addition of midodrine and dc of home metoprolol may consider return to Florinef or midodrine check orthostatics 05/02/21 (4) Dysphagia: Plan: Had complaint of feeling like food is getting stuck with swallowing on 04/06 Has had intermittent episodes of vomiting after taking pills throughout his hospital stay Has a h/o esophageal strictures requiring dilatation in 2017 He would not be able to withstand a barium swallow as he cannot stand up for more than a few seconds to a minute at a time Now s/p esophageal dilatation on 04/13 for severe restriction and doing much better with swallowing - Tolerating diet -Continue Prevacid -changed bigger pills to liquids - GI following - esophageal dilatation on 04/27 completed -- Note mentions Protonix - will see if can continue Lansoprazole instead given the soluble nature and issues with pill swallowing (5) CKD (chronic kidney disease) stage 2, GFR 60-89 ml/min: Plan: Renal function appears to be at baseline in this patient, continue to monitor periodically (6) Chronic hypoxemic respiratory failure: Plan: chronic. No acute issues continue O2 prn-none needed for weeks (7) COPD (chronic obstructive pulmonary disease) with chronic bronchitis: Plan: Patient with a history of COPD, still smoking despite lung cancer diagnosis ? reoccurrence of non-small cell lung CA on imaging Trelegy (ICS/AC/LABA) as an outpatient We will substitute Anoro Ellipta (AC/LABA) and Arnuity Ellipta (ICS) while inpatient Oxygenating well on room air Supplemental oxygen as needed to maintain SaO2 between 88 and 92%-has not needed O2 in a long time pulmonology consulted-- appreciate recommendations. 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 Was tapped in the past. 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, improved with steroid replacement (11) Peripheral arterial disease: Plan: Patient should be on antiplatelet/statin, started Plavix and statin History of aortofemoral bypass per prior notes (12) Bilateral carotid artery occlusion: Plan: started Plavix and statin this admission, will resume (13) Unstageable pressure ulcer of left heel: Plan: no osteo continue local care (14) Bipolar disorder: Plan: stable continue depakote but changed to liquid as tabs large and hard to swallow -continue reduced dose of seroquel and wellbutrin (15) Constipation: Plan: bowel protocol ordered on board; adequate bowel movements continue senna/docusate Miralax PRN (16) Right shoulder pain: Plan: - Voltaren gel to right shoulder (17) Candidal intertrigo: Plan: Resolved with miconazole powder (18) Seborrhea: Plan: ears bilat -improved--> completed hydrocortisone cream bid x 2 week course to ears Plan: Disposition: Lives alone in [facility] and is quite debilitated (prolonged course of mobility issues) Working with case management. still looking for rehab placement-no beds available, multiple referrals out -- Working on transfers to see if we can get him home with family support Medically stable for discharge if rehab is found and willing to go Admission and Anticipated Discharge Date Admission Date: March 20, 2021 Subjective Reports no complaints today. No dizziness and worked with therapy. Continues to tolerate diet since have repeat esophageal dilation. Pt feels he is not yet strong enough to get to home, continue to look for rehab Review of Systems Review of Systems: REVIEW OF SYSTEMS General/Constitutional: Denies fever/chills ENT: Denies sore throat or trouble swallowing Cardiovascular: Denies chest pain, palpitations, edema Respiratory: Denies cough, SOB GI: Denies nausea, vomiting, abdominal pain, constipation, diarrhea : Denies dysuria Musculoskeletal: Denies joint/muscle aches Neurologic: Denies dizziness/lightheadedness Physical Exam Physical Exam: The patient appeared well Vital signs as documented. Lungs are clear to auscultation and appear unlabored Cardiac exam, Rhythm is regular.. No murmurs, rubs or gallops. Abdominal exam reveals normal bowel sounds, soft non tender, no masses Extremities are nonedematous and both pedal pulses are normal. Neurologic exam is alert and oriented, no focal loss of strength or sensation Skin is without bruises or rashes Psychologically is without concerns for anxiety or depression. Results & Data Results & Data ([facility]) Vital Signs (Past 12 Hours) Vital Signs Temp Pulse Resp BP Pulse Ox 05/01/21 08:58 97.5 F L 85 16 95/61 L 100 PG Care Time/CCT Total # of Minutes Spent Total Time Spent with Patient: Total time spent is greater than 50% in coordination of care (as documented) at patient's floor/unit and/or counseling patient: Coding Level of Care Code 99093 Subseq Hosp Care Lvl 2 Diagnoses Adrenal insufficiency E27.40 Anemia D64.9 Hypotension I95.9 Dysphagia R13.10 CKD (chronic kidney disease) stage 2, GFR 60-89 ml/min N18.2 Chronic hypoxemic respiratory failure J96.11 COPD (chronic obstructive pulmonary disease) with chronic bronchitis J44.9 History of lung cancer Z85.118 Recurrent left pleural effusion J90 Hyponatremia E87.1 Peripheral arterial disease I73.9 Bilateral carotid artery occlusion I65.23 Unstageable pressure ulcer of left heel L89.620 Bipolar disorder F31.9 Most recent bipolar episode type: most recent episode unspecified type Constipation K59.00 Right shoulder pain M25.511 Candidal intertrigo B37.2 Seborrhea L21.9 (1) Bipolar disorder Most recent bipolar episode type: most recent episode unspecified type
[2021-05-01] MEDS: QUEtiapine FUMARATE 25 MG TABLET PO SCH (21:07)
[2021-05-01] MEDS: VALPROIC ACID SOLN 500 MG/10 ML UDC PO SCH (21:07)
[2021-05-02 07:08] LABS: Hematocrit (blood only) 33.8 % (42-52); Hemoglobin 10.9 g/dL (14.0-18.0); Mean Corpuscular Hgb Conc 32.2 g/dL (32-36); Mean Corpuscular Volume 80.5 fL (80-100); Mean Platelet Volume 8.9 fL (7.4-10.4); Platelet Count 413 K/uL (130-400); RDW Coefficient of Variation 18.4 % (11.5-14.5); RDW Standard Deviation 54.6 fL (36.4-46.3); White Blood Count 5.79 K/uL (4.8-10.8)
[2021-05-02 07:25] LABS: BUN Creatinine Ratio 22.9 (10-20); Calcium 9.5 mg/dl (8.5-10.1); Creatinine Clr Calc Pharmacy 97.4 ml/min; Est GFR (African American) 117.4 ml/min; Est GFR (Non-African American) 101.3 ml/min; Potassium 4.2 mmol/L (3.5-5.1)
[2021-05-02] MEDS: FERROUS SULFATE ELIX 220MG/5ML PO SCH ×2 (08:44→17:41)
[2021-05-02] MEDS: ATORVASTATIN 40 MG TAB PO SCH (08:45)
[2021-05-02] MEDS: ASCORBIC ACID 500 MG TAB PO SCH ×2 (08:45→20:44)
[2021-05-02] MEDS: CLOPIDOGREL BISULFATE 75 MG TAB PO SCH (08:46)
[2021-05-02] MEDS: CHOLECALCIFEROL 1,000 UNITS 25 MCG TAB PO SCH (08:46)
[2021-05-02] MEDS: buPROPion HCl 100 MG TABLET PO SCH (08:46)
[2021-05-02] MEDS: VALPROIC ACID SOLN 250 MG/5 ML UDC PO SCH (08:47)
[2021-05-02] MEDS: UMECLIDINIUM/VILANTEROL 62.5/25MCG 7 PUFFS/INHALER INH SCH (08:47)
[2021-05-02] MEDS: LANSOPRAZOLE 30 MG SOLTAB PO SCH (08:49)
[2021-05-02] MEDS: HYDROCORTISONE 10 MG TAB PO SCH ×2 (08:49→16:11)
[2021-05-02] MEDS: FOLIC ACID 1 MG TAB PO SCH (08:49)
[2021-05-02] MEDS: MICONAZOLE NITRATE POWDER 43 GM EXT SCH ×2 (08:50→20:45)
[2021-05-02] MEDS: FLUTICASONE FUROATE 100MCG 14 PUFFS/INHALER INH SCH (09:56)
--- NOTE | 2021-05-02 13:03 | Hospitalist Progress Note ---
Date of Service May 02, 2021 Assessment & Plan (1) Adrenal insufficiency: Plan: Admitted with weakness, nausea, worsening hyponatremia, orthostatic hypotension ongoing for a long time Initial fasting AM cortisol earlier in hospital course was low normal at 5, but now repeat even lower at 3 and no use of steroids More of a chronic presentation CT abd/pel on 03/17/21 with normal adrenal glands; Brain MRI 03/18/21 normal Perhaps related to autoimmune disorder? -on 04/22, started hydrocortisone 10mg in AM and 5mg in PM-significantly improved--> Na+now normalized, BP improving, feels better - weaned off midodrine completely and BPs still lower intermittently, may need to restart or consider Florinef but pt is without symptoms currently -will need f/u as Endocrine as outpt - ACTH level is 10 and plasma renin activity 1.93 (2) Anemia: Plan: hgb was 7.3 on arrival -- up to 10.1 without intervention/no transfusion- has yo-yo'ed between 8-10. Most likely margin of error in the lab Microcytic stool for occult blood negative x 2 Did have a W/U and Seen by established tub chucker/oncologist-- started on Ferrous sulfate/folic acid and B12 -EGD on 04/13 - dilated esophagus due to benign appearing esophageal stenosis; gastritis with biopsy obtained - repeated endoscopy for retreatment on 04/27/21 -- Pathology - chronic gastritis, mild; neg H. pylori, no metaplasia, dysplasia, or malignancy (3) Hypotension: Plan: Initially thought secondary to Seroquel and metoprolol side effect, and did improve w/ hydroortisone, addition of midodrine and dc of home metoprolol may consider return to midodrine or start Florinef - Recheck othostatic BPs (4) Dysphagia: Plan: Had complaint of feeling like food is getting stuck with swallowing on 04/06 Has had intermittent episodes of vomiting after taking pills throughout his hospital stay Has a h/o esophageal strictures requiring dilatation in 2017 He would not be able to withstand a barium swallow as he cannot stand up for more than a few seconds to a minute at a time Now s/p esophageal dilatation on 04/13 for severe restriction and doing much better with swallowing - Tolerating diet -Continue Prevacid -changed bigger pills to liquids - GI following - esophageal dilatation on 04/27 completed -- Note mentions Protonix - will see if can continue Lansoprazole instead given the soluble nature and issues with pill swallowing (5) CKD (chronic kidney disease) stage 2, GFR 60-89 ml/min: Plan: Renal function appears to be at baseline in this patient, continue to monitor periodically (6) Chronic hypoxemic respiratory failure: Plan: chronic. No acute issues continue O2 prn-none needed for weeks (7) COPD (chronic obstructive pulmonary disease) with chronic bronchitis: Plan: Patient with a history of COPD, still smoking despite lung cancer diagnosis ? reoccurrence of non-small cell lung CA on imaging Trelegy (ICS/AC/LABA) as an outpatient We will substitute Anoro Ellipta (AC/LABA) and Arnuity Ellipta (ICS) while inpatient Oxygenating well on room air Supplemental oxygen as needed to maintain SaO2 between 88 and 92%-has not needed O2 in a long time pulmonology consulted-- appreciate recommendations. 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 Was tapped in the past. 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, improved with steroid replacement (11) Peripheral arterial disease: Plan: Patient should be on antiplatelet/statin, started Plavix and statin History of aortofemoral bypass per prior notes (12) Bilateral carotid artery occlusion: Plan: started Plavix and statin this admission, will resume (13) Unstageable pressure ulcer of left heel: Plan: no osteo continue local care (14) Bipolar disorder: Plan: stable continue depakote but changed to liquid as tabs large and hard to swallow -continue reduced dose of seroquel and wellbutrin (15) Constipation: Plan: bowel protocol ordered on board; adequate bowel movements continue senna/docusate Miralax PRN (16) Right shoulder pain: Plan: - Voltaren gel to right shoulder (17) Candidal intertrigo: Plan: Resolved with miconazole powder (18) Seborrhea: Plan: ears bilat -improved--> completed hydrocortisone cream bid x 2 week course to ears Plan: Disposition: Lives alone in [facility] and is quite debilitated (prolonged course of mobility issues) Working with case management. still looking for rehab placement-no beds available, multiple referrals out -- Working on transfers to see if we can get him home with family support - seeing if able to bring home wheelchair as he thinks he might be able to transfer better with that Medically stable for discharge if rehab is found and willing to go Admission and Anticipated Discharge Date Admission Date: March 20, 2021 Subjective Reports doing well today. Hasn't work with therapy yet today. Denies any dizziness and tolerating meals. He asked if he can have his wheelchair brought in as he thinks he may be able to do transfers better with that. He would still like to go home if able to but understands working on the transfers Review of Systems Review of Systems: All systems reviewed & are unremarkable except as noted in Subjective Physical Exam Physical Exam: PHYSICAL EXAM General Appearance: pale/frail male in NAD who is A&O x 3 HEENT: Head is normocephalic/atraumatic; Hearing grossly intact Neck: Supple; Trachea midline; Neg JVD Heart: RRR with no M/G/R Lungs: CTA in all lung goldberg bilaterally but diminished at bases bilaterally; Respirations unlabored; Neg accessory muscle use Abdomen: Soft, non-tender, non-distended; Positive BS x 4 quadrants Extremities: Neg cyanosis or edema Neurological: Speech clear Psychiatric: Appropriate mood/affect Results & Data Results & Data ([facility]) Vital Signs (Past 12 Hours) Vital Signs Temp Pulse Resp BP Pulse Ox 05/02/21 07:13 36.5 C 72 16 123/73 99 PG Care Time/CCT Total # of Minutes Spent Total Time Spent with Patient: Total time spent is greater than 50% in coordination of care (as documented) at patient's floor/unit and/or counseling patient: Coding Level of Care Code 56286 Subseq Obs Care Lvl 2 Diagnoses Adrenal insufficiency E27.40 Anemia D64.9 Hypotension I95.9 Dysphagia R13.10 CKD (chronic kidney disease) stage 2, GFR 60-89 ml/min N18.2 Chronic hypoxemic respiratory failure J96.11 COPD (chronic obstructive pulmonary disease) with chronic bronchitis J44.9 History of lung cancer Z85.118 Recurrent left pleural effusion J90 Hyponatremia E87.1 Peripheral arterial disease I73.9 Bilateral carotid artery occlusion I65.23 Unstageable pressure ulcer of left heel L89.620 Bipolar disorder F31.9 Most recent bipolar episode type: most recent episode unspecified type Constipation K59.00 Right shoulder pain M25.511 Candidal intertrigo B37.2 Seborrhea L21.9 (1) Bipolar disorder Most recent bipolar episode type: most recent episode unspecified type
[2021-05-02] MEDS: VALPROIC ACID SOLN 500 MG/10 ML UDC PO SCH (20:45)
[2021-05-02] MEDS: QUEtiapine FUMARATE 25 MG TABLET PO SCH (20:45)
[2021-05-03] MEDS: FERROUS SULFATE ELIX 220MG/5ML PO SCH ×2 (08:49→17:41)
[2021-05-03] MEDS: ATORVASTATIN 40 MG TAB PO SCH (08:50)
[2021-05-03] MEDS: ASCORBIC ACID 500 MG TAB PO SCH ×2 (08:50→20:07)
[2021-05-03] MEDS: CHOLECALCIFEROL 1,000 UNITS 25 MCG TAB PO SCH (08:51)
[2021-05-03] MEDS: buPROPion HCl 100 MG TABLET PO SCH (08:51)
[2021-05-03] MEDS: CLOPIDOGREL BISULFATE 75 MG TAB PO SCH (08:52)
[2021-05-03] MEDS: FLUTICASONE FUROATE 100MCG 14 PUFFS/INHALER INH SCH (08:53)
[2021-05-03] MEDS: FOLIC ACID 1 MG TAB PO SCH (08:53)
[2021-05-03] MEDS: LANSOPRAZOLE 30 MG SOLTAB PO SCH (08:54)
[2021-05-03] MEDS: HYDROCORTISONE 10 MG TAB PO SCH ×2 (08:54→15:34)
[2021-05-03] MEDS: MICONAZOLE NITRATE POWDER 43 GM EXT SCH ×2 (08:55→20:06)
[2021-05-03] MEDS: UMECLIDINIUM/VILANTEROL 62.5/25MCG 7 PUFFS/INHALER INH SCH (08:55)
[2021-05-03] MEDS: VALPROIC ACID SOLN 250 MG/5 ML UDC PO SCH (08:56)
--- NOTE | 2021-05-03 10:51 | Hospitalist Progress Note ---
Date of Service May 03, 2021 Assessment & Plan (1) Adrenal insufficiency: Plan: Admitted with weakness, nausea, worsening hyponatremia, orthostatic hypotension ongoing for a long time Initial fasting AM cortisol earlier in hospital course was low normal at 5, but now repeat even lower at 3 and no use of steroids More of a chronic presentation CT abd/pel on 03/17/21 with normal adrenal glands; Brain MRI 03/18/21 normal Perhaps related to autoimmune disorder? -on 04/22, started hydrocortisone 10mg in AM and 5mg in PM-significantly improved--> Na+now normalized, BP improving, feels better - weaned off midodrine completely and BPs still lower intermittently, may need to restart or consider Florinef but pt is without symptoms currently -will need f/u as Endocrine as outpt - ACTH level is 10 and plasma renin activity 1.93 (2) Anemia: Plan: hgb was 7.3 on arrival -- up to 10.1 without intervention/no transfusion- has yo-yo'ed between 8-10. Most likely margin of error in the lab Microcytic stool for occult blood negative x 2 Did have a W/U and Seen by established natural resources engineer/oncologist-- started on Ferrous sulfate/folic acid and B12 -EGD on 04/13 - dilated esophagus due to benign appearing esophageal stenosis; gastritis with biopsy obtained - repeated endoscopy for retreatment on 04/27/21 -- Pathology - chronic gastritis, mild; neg H. pylori, no metaplasia, dysplasia, or malignancy (3) Hypotension: Plan: Initially thought secondary to Seroquel and metoprolol side effect, and did improve w/ hydrocortisone, addition of midodrine and dc of home metoprolol may consider return to midodrine or start Florinef (4) Dysphagia: Plan: Had complaint of feeling like food is getting stuck with swallowing on 04/06 Has had intermittent episodes of vomiting after taking pills throughout his hosp ital stay Has a h/o esophageal strictures requiring dilatation in 2017 He would not be able to withstand a barium swallow as he cannot stand up for more than a few seconds to a minute at a time Now s/p esophageal dilatation on 04/13 for severe restriction and doing much better with swallowing - Tolerating diet -Continue Prevacid -changed bigger pills to liquids - GI following - esophageal dilatation on 04/27 completed -- Continue Lansoprazole given the soluble nature and issues with pill swallowing (5) CKD (chronic kidney disease) stage 2, GFR 60-89 ml/min: Plan: Renal function appears to be at baseline in this patient, continue to monitor periodically (6) Chronic hypoxemic respiratory failure: Plan: chronic. No acute issues continue O2 prn-none needed for weeks (7) COPD (chronic obstructive pulmonary disease) with chronic bronchitis: Plan: Patient with a history of COPD, still smoking despite lung cancer diagnosis ? reoccurrence of non-small cell lung CA on imaging Trelegy (ICS/AC/LABA) as an outpatient We will substitute Anoro Ellipta (AC/LABA) and Arnuity Ellipta (ICS) while inpatient Oxygenating well on room air Supplemental oxygen as needed to maintain SaO2 between 88 and 92%-has not needed O2 in a long time pulmonology consulted-- appreciate recommendations. 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 Was tapped in the past. 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, improved with steroid replacement (11) Peripheral arterial disease: Plan: Patient should be on antiplatelet/statin, started Plavix and statin History of aortofemoral bypass per prior notes (12) Bilateral carotid artery occlusion: Plan: started Plavix and statin this admission, will resume (13) Unstageable pressure ulcer of left heel: Plan: no osteo continue local care (14) Bipolar disorder: Plan: stable continue depakote but changed to liquid as tabs large and hard to swallow -continue reduced dose of seroquel and wellbutrin (15) Constipation: Plan: bowel protocol ordered on board; adequate bowel movements continue senna/docusate Miralax PRN (16) Right shoulder pain: Plan: - Voltaren gel to right shoulder (17) Candidal intertrigo: Plan: Resolved with miconazole powder (18) Seborrhea: Plan: ears bilat -improved--> completed hydrocortisone cream bid x 2 week course to ears Plan: Disposition: Lives alone in [facility] and is quite debilitated (pro longed course of mobility issues) Working with case management. still looking for rehab placement-no beds available, multiple referrals out -- Working on transfers to see if we can get him home with family support - seeing if able to bring home wheelchair as he thinks he might be able to transfer better with that -- Sister (EJ), ex-, and friend are in agreement to home with their support and home services - PT has been working on transfers as he has not been standing for quite some time - last eval he was able to transfer to wheelchair but could not transfer back Medically stable for discharge if rehab is found and willing to go but would need to continue to work on transfers if going home Admission and Anticipated Discharge Date Admission Date: March 20, 2021 Subjective Reports doing well this AM. Is smiling more. Did have a lower BP this AM but was asymptomatic. States he is having no dizziness at this point. Is planning to bring in his home wheelchair to see if that will help with transfers. He reports he feels good, belly is full, and plans to take a nap. Tolerating a diet. Verbalizes no new complaints. Review of Systems Review of Systems: All systems reviewed & are unremarkable except as noted in Subjective Physical Exam Physical Exam: PHYSICAL EXAM General Appearance: pale/frail male in NAD who is A&O x 3 HEENT: Head is normocephalic/atraumatic; Hearing grossly intact Neck: Supple; Trachea midline; Neg JVD Heart: RRR with no M/G/R Lungs: CTA in all lung goldberg bilaterally but diminished at bases bilaterally; Respirations unlabored; Neg accessory muscle use Abdomen: Soft, non-tender, non-distended; Positive BS x 4 quadrants Extremities: Neg cyanosis or edema Neurological: Speech clear Psychiatric: Appropriate mood/affect Results & Data Results & Data ([facility]) Vital Signs (Past 12 Hours) Vital Signs Temp Pulse Resp BP Pulse Ox 05/03/21 07:14 109/62 05/03/21 07:00 36.7 C 75 16 86/56 L 95 PG Care Time/CCT Total # of Minutes Spent Total Time Spent with Patient: Total time spent is greater than 50% in coordination of care (as documented) at patient's floor/unit and/or counseling patient: Coding Level of Care Code 54363 Subseq Hosp Care Lvl 2 Diagnoses Adrenal insufficiency E27.40 Anemia D64.9 Hypotension I95.9 Dysphagia R13.10 CKD (chronic kidney disease) stage 2, GFR 60-89 ml/min N18.2 Chronic hypoxemic respiratory failure J96.11 COPD (chronic obstructive pulmonary disease) with chronic bronchitis J44.9 History of lung cancer Z85.118 Recurrent left pleural effusion J90 Hyponatremia E87.1 Peripheral arterial disease I73.9 Bilateral carotid artery occlusion I65.23 Unstageable pressure ulcer of left heel L89.620 Bipolar disorder F31.9 Most recent bipolar episode type: most recent episode unspecified type Constipation K59.00 Right shoulder pain M25.511 Candidal intertrigo B37.2 Seborrhea L21.9 (1) Bipolar disorder Most recent bipolar episode type: most recent episode unspecified type
[2021-05-03] MEDS: VALPROIC ACID SOLN 500 MG/10 ML UDC PO SCH (20:07)
[2021-05-03] MEDS: QUEtiapine FUMARATE 25 MG TABLET PO SCH (20:07)
[2021-05-04] MEDS: FERROUS SULFATE ELIX 220MG/5ML PO SCH ×2 (08:55→16:28)
[2021-05-04] MEDS: ASCORBIC ACID 500 MG TAB PO SCH ×2 (08:55→19:45)
[2021-05-04] MEDS: ATORVASTATIN 40 MG TAB PO SCH (08:56)
[2021-05-04] MEDS: FLUTICASONE FUROATE 100MCG 14 PUFFS/INHALER INH SCH (08:57)
[2021-05-04] MEDS: CHOLECALCIFEROL 1,000 UNITS 25 MCG TAB PO SCH (08:57)
[2021-05-04] MEDS: buPROPion HCl 100 MG TABLET PO SCH (08:57)
[2021-05-04] MEDS: LANSOPRAZOLE 30 MG SOLTAB PO SCH (08:58)
[2021-05-04] MEDS: CLOPIDOGREL BISULFATE 75 MG TAB PO SCH (08:58)
[2021-05-04] MEDS: FOLIC ACID 1 MG TAB PO SCH (08:58)
[2021-05-04] MEDS: HYDROCORTISONE 10 MG TAB PO SCH ×2 (08:59→14:44)
[2021-05-04] MEDS: MICONAZOLE NITRATE POWDER 43 GM EXT SCH ×2 (08:59→19:44)
[2021-05-04] MEDS: VALPROIC ACID SOLN 250 MG/5 ML UDC PO SCH (08:59)
[2021-05-04] MEDS: UMECLIDINIUM/VILANTEROL 62.5/25MCG 7 PUFFS/INHALER INH SCH (09:00)
--- NOTE | 2021-05-04 17:59 | Hospitalist Progress Note ---
Date of Service May 04, 2021 Assessment & Plan (1) Adrenal insufficiency: Plan: Admitted with weakness, nausea, worsening hyponatremia, orthostatic hypotension ongoing for a long time Initial fasting AM cortisol earlier in hospital course was low normal at 5, but now repeat even lower at 3 and no use of steroids More of a chronic presentation CT abd/pel on 03/17/21 with normal adrenal glands; Brain MRI 03/18/21 normal Perhaps related to autoimmune disorder? - On 04/22, started hydrocortisone 10mg in AM and 5mg in PM-significantly improved - weaned off midodrine completely and BPs still lower intermittently (systolic of 86 on 05/03 @ 0700) may need to restart or consider Florinef but pt is without symptoms currently - Will need f/u as Endocrine as outpt - ACTH level is 10 and plasma renin activity 1.93 (2) Anemia: Plan: - hgb was 7.3 on arrival -- up to 10.1 without intervention/no transfusion- has waxed and waned between 8-10. Most likely margin of error in the lab - Microcytic - stool for occult blood negative x 2 - Did have a W/U and Seen by established reinforcing steel machine operator/oncologist-- started on Ferrous sulfate/folic acid and B12 - EGD on 04/13 - dilated esophagus due to benign appearing esophageal stenosis; gastritis with biopsy obtained - repeated endoscopy for retreatment on 04/27/21 - Pathology - chronic gastritis, mild; neg H. pylori, no metaplasia, dysplasia, or malignancy (3) Hypotension: Plan: - Initially thought secondary to Seroquel and metoprolol side effect - Improved w/ hydrocortisone, addition of midodrine and dc of home metoprolol - Pt has since been weaned off Midodrine - BPs stable, Continue to monitor (4) Dysphagia: Plan: Had complaint of feeling like food is getting stuck with swallowing on 04/06 Has had intermittent episodes of vomiting after taking pills throughout his hospital stay Has a h/o esophageal strictures requiring dilatation in 2017 He would not be able to withstand a barium swallow as he cannot stand up for more than a few seconds to a minute at a time Now s/p esophageal dilatation on 04/13 for severe restriction and doing much better with swallowing - Tolerating diet - Continue Prevacid (d/t soluble nature and issues with pill swallowing) - changed bigger pills to liquids - GI following - esophageal dilatation on 04/27 completed (5) CKD (chronic kidney disease) stage 2, GFR 60-89 ml/min: Plan: - Renal function appears to be at baseline in this patient, continue to monitor periodically (6) Chronic hypoxemic respiratory failure: Plan: - chronic. No acute issues - continue O2 prn-none needed for weeks (7) COPD (chronic obstructive pulmonary disease) with chronic bronchitis: Plan: - Patient with a history of COPD, still smoking despite lung cancer diagnosis - ? reoccurrence of non-small cell lung CA on imaging - Trelegy (ICS/AC/LABA) as an outpatient - We will substitute Anoro Ellipta (AC/LABA) and Arnuity Ellipta (ICS) while inpatient - Oxygenating well on room air - Supplemental oxygen as needed to maintain SaO2 between 88 and 92%-has not needed O2 in a long time - pulmonology consulted (previously followed w/ Dr. Morin), d/t pleural effusion on admission - has since signed off (8) History of lung cancer: Plan: - Hematology/oncology consulted - will brain picker again as an outpatient on discharge, however not sure if patient would be a good candidate for any treatment moving forward given noncompliance although now that he will be in a SNF environment, would be better - MRI brain w/wo contrast with no evidence of metastatic disease (9) Recurrent left pleural effusion: Plan: Pulmonology consulted/signed off given asymptomatic status- no intervention. Was tapped in the past. 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 - monitor (11) Peripheral arterial disease: Plan: - Started on Plavix and Aspirin - History of aortofemoral bypass per prior notes (12) Bilateral carotid artery occlusion: Plan: - started Plavix and statin this admission (13) Unstageable pressure ulcer of left heel: Plan: - no osteo continue local care (14) Bipolar disorder: Plan: stable - continue depakote but changed to liquid as tabs large and hard to swallow - continue reduced dose of seroquel and wellbutrin (15) Constipation: Plan: - bowel protocol ordered on board; adequate bowel movements - continue senna/docusate - Miralax PRN (16) Right shoulder pain: Plan: - Voltaren gel to right shoulder Plan: Disposition: Lives alone in [facility] and is quite debilitated (prolonged course of mobility issues) Working with case management. still looking for rehab placement-no beds available, multiple referrals out - Working on transfers to see if we can get him home with family support - seeing if able to bring home wheelchair as he thinks he might be able to transfer better with that - Sister (EJ), ex-, and friend are in agreement to home with their support and home services - PT has been working on transfers as he has not been standing for quite some time - last eval he was able to transfer to wheelchair but could not transfer back Therapy needs to be working with patient daily in order to determine if able to get him to transfer to the point of transitioning back home with home health Medically stable for discharge if rehab is found and willing to go but would need to continue to work on transfers if going home Admission and Anticipated Discharge Date Admission Date: March 20, 2021 Subjective Mr. Luther was seen on rounds this morning. Pt remains hospitalized awaiting bed terminal gauger supervisor placement due to debility and inability to care for himself. He is currently sleeping in bed, but awakens to answer questions. He verbalizes no complaints/concerns at present. Denies cp, dyspnea, n/v/d, f/c, headache, or gu symptoms. RN notified this afternoon that Na+ down to 129 today from 134 on 05/03. No other issues communicated. Review of Systems Review of Systems: CONSTITUTIONAL: Denies weight loss/gain, fever and chills, fatigue, malaise, generalized weakness. HEENT: Denies changes in vision and hearing. RESPIRATORY: Denies SOB, cough, wheezing. CV: Denies palpitations, CP, lower extremity edema, orthopnea, PND. GI: Denies abdominal pain, nausea, vomiting and diarrhea. : Denies dysuria and urinary frequency, urgency, hesitancy. MUSCULOSKELETAL: Denies myalgia and joint pain. SKIN: Denies rash and pruritus. NEUROLOGICAL: Denies headache, syncope, focal weakness, numbness, tingling. PSYCHIATRIC: Denies recent changes in mood. Denies anxiety and depression. Physical Exam Physical Exam: GENERAL: 66 yo WM who appears older than stated age. Well-developed, well- nourished. NAD. LUNGS: Clear to auscultation bilaterally. No accessory muscle use. No W/R/R. CARDIOVASCULAR: Regular rate and rhythm. No M/G/R. No JVD. ABDOMEN: Soft, non-tender and non-distended. No palpable masses. Bowel sounds normoactive x 4 quad. EXTREMITIES: No edema. Non-tender. Peripheral pulses +2/4. NEUROLOGIC: A&O x3. No focal neurological deficits. CN II-XII grossly intact. PSYCHIATRIC: Cooperative. Appropriate mood and affect. SKIN: Warm, dry, intact. No rashes or lesions. Results & Data Results & Data ([facility]) Vital Signs (Past 12 Hours) Vital Signs Temp Pulse Resp BP Pulse Ox 05/04/21 16:20 37.1 C 78 17 136/76 99 05/04/21 07:23 36.9 C 72 17 104/64 97 Laboratory Results 05/02/21 06:34 05/02/21 06:34 PG Care Time/CCT Total # of Minutes Spent Total Time Spent with Patient: Total time spent is greater than 50% in coordination of care (as documented) at patient's floor/unit and/or counseling patient: Coding Level of Care Code 49205 Subseq Hosp Care Lvl 2 Diagnoses Adrenal insufficiency E27.40 Anemia D64.9 Hypotension I95.9 Dysphagia R13.10 CKD (chronic kidney disease) stage 2, GFR 60-89 ml/min N18.2 Chronic hypoxemic respiratory failure J96.11 COPD (chronic obstructive pulmonary disease) with chronic bronchitis J44.9 History of lung cancer Z85.118 Recurrent left pleural effusion J90 Hyponatremia E87.1 Peripheral arterial disease I73.9 Bilateral carotid artery occlusion I65.23 Unstageable pressure ulcer of left heel L89.620 Bipolar disorder F31.9 Most recent bipolar episode type: most recent episode unspecified type Constipation K59.00 Right shoulder pain M25.511 (1) Bipolar disorder Most recent bipolar episode type: most recent episode unspecified type
[2021-05-04] MEDS: VALPROIC ACID SOLN 500 MG/10 ML UDC PO SCH (19:45)
[2021-05-05 08:22] LABS: BUN Creatinine Ratio 17.4 (10-20); Calcium 8.5 mg/dl (8.5-10.1); Est GFR (African American) 108.8 ml/min; Est GFR (Non-African American) 93.9 ml/min; Potassium 3.8 mmol/L (3.5-5.1)
[2021-05-05] MEDS: FERROUS SULFATE ELIX 220MG/5ML PO SCH ×2 (09:09→15:02)
[2021-05-05] MEDS: UMECLIDINIUM/VILANTEROL 62.5/25MCG 7 PUFFS/INHALER INH SCH (09:10)
[2021-05-05] MEDS: ASCORBIC ACID 500 MG TAB PO SCH ×2 (09:10→19:16)
[2021-05-05] MEDS: CHOLECALCIFEROL 1,000 UNITS 25 MCG TAB PO SCH (09:10)
[2021-05-05] MEDS: CLOPIDOGREL BISULFATE 75 MG TAB PO SCH (09:10)
[2021-05-05] MEDS: buPROPion HCl 100 MG TABLET PO SCH (09:10)
[2021-05-05] MEDS: FOLIC ACID 1 MG TAB PO SCH (09:10)
[2021-05-05] MEDS: VALPROIC ACID SOLN 250 MG/5 ML UDC PO SCH (09:10)
[2021-05-05] MEDS: FLUTICASONE FUROATE 100MCG 14 PUFFS/INHALER INH SCH (09:10)
[2021-05-05] MEDS: MICONAZOLE NITRATE POWDER 43 GM EXT SCH ×2 (09:10→19:16)
[2021-05-05] MEDS: LANSOPRAZOLE 30 MG SOLTAB PO SCH (09:10)
[2021-05-05] MEDS: HYDROCORTISONE 10 MG TAB PO SCH ×2 (09:10→15:03)
[2021-05-05] MEDS: ATORVASTATIN 40 MG TAB PO SCH (09:10)
--- NOTE | 2021-05-05 15:39 | Hospitalist Progress Note ---
Date of Service May 05, 2021 Assessment & Plan (1) Adrenal insufficiency: Plan: Admitted with weakness, nausea, worsening hyponatremia, orthostatic hypotension ongoing for a long time Initial fasting AM cortisol earlier in hospital course was low normal at 5, but now repeat even lower at 3 and no use of steroids More of a chronic presentation CT abd/pel on 03/17/21 with normal adrenal glands; Brain MRI 03/18/21 normal Perhaps related to autoimmune disorder? - On 04/22, started hydrocortisone 10mg in AM and 5mg in PM-significantly improved - weaned off midodrine completely and BPs still lower intermittently (systolic of 86 on 05/03 @ 0700) may need to restart or consider Florinef but pt is without symptoms currently - Will need f/u as Endocrine as outpt - ACTH level is 10 and plasma renin activity 1.93 (2) Anemia: Plan: - hgb was 7.3 on arrival -- up to 10.1 without intervention/no transfusion- has waxed and waned between 8-10. Most likely margin of error in the lab - Microcytic - stool for occult blood negative x 2 - Did have a W/U and Seen by established spun paste machine operator/oncologist-- started on Ferrous sulfate/folic acid and B12 - EGD on 04/13 - dilated esophagus due to benign appearing esophageal stenosis; gastritis with biopsy obtained - repeated endoscopy for retreatment on 04/27/21 - Pathology - chronic gastritis, mild; neg H. pylori, no metaplasia, dysplasia, or malignancy (3) Hypotension: Plan: - Initially thought secondary to Seroquel and metoprolol side effect - Improved w/ hydrocortisone, addition of midodrine and dc of home metoprolol - Pt has since been weaned off Midodrine - BPs stable, Continue to monitor (4) Dysphagia: Plan: Had complaint of feeling like food is getting stuck with swallowing on 04/06 Has had intermittent episodes of vomiting after taking pills throughout his hospital stay Has a h/o esophageal strictures requiring dilatation in 2017 He would not be able to withstand a barium swallow as he cannot stand up for more than a few seconds to a minute at a time Now s/p esophageal dilatation on 04/13 for severe restriction and doing much better with swallowing - Tolerating diet - Continue Prevacid (d/t soluble nature and issues with pill swallowing) - changed bigger pills to liquids - GI following - esophageal dilatation on 04/27 completed (5) CKD (chronic kidney disease) stage 2, GFR 60-89 ml/min: Plan: - Renal function appears to be at baseline in this patient, continue to monitor periodically (6) Chronic hypoxemic respiratory failure: Plan: - chronic. No acute issues - continue O2 prn-none needed for weeks (7) COPD (chronic obstructive pulmonary disease) with chronic bronchitis: Plan: - Patient with a history of COPD, still smoking despite lung cancer diagnosis - ? reoccurrence of non-small cell lung CA on imaging - Trelegy (ICS/AC/LABA) as an outpatient - We will substitute Anoro Ellipta (AC/LABA) and Arnuity Ellipta (ICS) while inpatient - Oxygenating well on room air - Supplemental oxygen as needed to maintain SaO2 between 88 and 92%-has not needed O2 in a long time - pulmonology consulted (previously followed w/ Dr. 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 Was tapped in the past. 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 - monitor (11) Peripheral arterial disease: Plan: - Started on Plavix and Aspirin - History of aortofemoral bypass per prior notes (12) Bilateral carotid artery occlusion: Plan: - started Plavix and statin this admission (13) Unstageable pressure ulcer of left heel: Plan: - no osteo continue local care (14) Bipolar disorder: Plan: stable - continue depakote but changed to liquid as tabs large and hard to swallow - continue reduced dose of seroquel and wellbutrin (15) Constipation: Plan: - bowel protocol ordered on board; adequate bowel movements - continue senna/docusate - Miralax PRN (16) Right shoulder pain: Plan: - Voltaren gel to right shoulder Plan: Disposition: Lives alone in [facility] and is quite debilitated (prolonged course of mobility issues) Working with case management. still looking for rehab placement-no beds available, multiple referrals out - Working on transfers to see if we can get him home with family support - seeing if able to bring home wheelchair as he thinks he might be able to transfer better with that - Sister (EJ), ex-, and friend are in agreement to home with their support and home services - PT has been working on transfers as he has not been standing for quite some time - last eval he was able to transfer to wheelchair but could not transfer back Therapy needs to be working with patient daily in order to determine if able to get him to transfer to the point of transitioning back home with home health Medically stable for discharge if rehab is found and willing to go but would need to continue to work on transfers if going home Admission and Anticipated Discharge Date Admission Date: March 20, 2021 Subjective Mr. Luther was seen on rounds this morning. Pt remains hospitalized awaiting bed lobsterman placement due to debility and inability to care for himself. He is currently sleeping in bed, but awakens to answer questions. He verbalizes no complaints/concerns at present. Denies cp, dyspnea, n/v/d, f/c, headache, or gu symptoms. Na+ down to 129 on 05/04 but up today to 131 without any intervention. Review of Systems Review of Systems: CONSTITUTIONAL: Denies weight loss/gain, fever and chills, fatigue, malaise, generalized weakness. HEENT: Denies changes in vision and hearing. RESPIRATORY: Denies SOB, cough, wheezing. CV: Denies palpitations, CP, lower extremity edema, orthopnea, PND. GI: Denies abdominal pain, nausea, vomiting and diarrhea. : Denies dysuria and urinary frequency, urgency, hesitancy. MUSCULOSKELETAL: Denies myalgia and joint pain. SKIN: Denies rash and pruritus. NEUROLOGICAL: Denies headache, syncope, focal weakness, numbness, tingling. PSYCHIATRIC: Denies recent changes in mood. Denies anxiety and depression. Physical Exam Physical Exam: GENERAL: 66 yo WM who appears older than stated age. Well-developed, well-nour ished. NAD. LUNGS: Clear to auscultation bilaterally. No accessory muscle use. No W/R/R. CARDIOVASCULAR: Regular rate and rhythm. No M/G/R. No JVD. ABDOMEN: Soft, non-tender and non-distended. No palpable masses. Bowel sounds normoactive x 4 quad. EXTREMITIES: No edema. Non-tender. Peripheral pulses +2/4. NEUROLOGIC: A&O x3. No focal neurological deficits. CN II-XII grossly intact. PSYCHIATRIC: Cooperative. Appropriate mood and affect. SKIN: Warm, dry, intact. No rashes or lesions. Results & Data Results & Data ([facility]) Vital Signs (Past 12 Hours) Vital Signs Temp Pulse Resp BP Pulse Ox 05/05/21 14:55 36.7 C 86 16 131/78 92 05/05/21 07:51 36.3 C L 73 16 109/64 97 Laboratory Results 05/02/21 06:34 05/05/21 07:21 PG Care Time/CCT Total # of Minutes Spent Total Time Spent with Patient: Total time spent is greater than 50% in coordination of care (as documented) at patient's floor/unit and/or counseling patient: Coding Level of Care Code 99768 Subseq Hosp Care Lvl 1 Diagnoses Adrenal insufficiency E27.40 Anemia D64.9 Hypotension I95.9 Dysphagia R13.10 CKD (chronic kidney disease) stage 2, GFR 60-89 ml/min N18.2 Chronic hypoxemic respiratory failure J96.11 COPD (chronic obstructive pulmonary disease) with chronic bronchitis J44.9 History of lung cancer Z85.118 Recurrent left pleural effusion J90 Hyponatremia E87.1 Peripheral arterial disease I73.9 Bilateral carotid artery occlusion I65.23 Unstageable pressure ulcer of left heel L89.620 Bipolar disorder F31.9 Most recent bipolar episode type: most recent episode unspecified type Constipation K59.00 Right shoulder pain M25.511 (1) Bipolar disorder Most recent bipolar episode type: most recent episode unspecified type
[2021-05-05] MEDS: VALPROIC ACID SOLN 500 MG/10 ML UDC PO SCH (19:16)
[2021-05-06] MEDS: FERROUS SULFATE ELIX 220MG/5ML PO SCH ×2 (08:33→18:10)
[2021-05-06] MEDS: UMECLIDINIUM/VILANTEROL 62.5/25MCG 7 PUFFS/INHALER INH SCH (09:55)
[2021-05-06] MEDS: FLUTICASONE FUROATE 100MCG 14 PUFFS/INHALER INH SCH (09:56)
[2021-05-06] MEDS: buPROPion HCl 100 MG TABLET PO SCH (09:57)
[2021-05-06] MEDS: ASCORBIC ACID 500 MG TAB PO SCH ×2 (09:57→19:45)
[2021-05-06] MEDS: ATORVASTATIN 40 MG TAB PO SCH (09:57)
[2021-05-06] MEDS: CLOPIDOGREL BISULFATE 75 MG TAB PO SCH (09:58)
[2021-05-06] MEDS: FOLIC ACID 1 MG TAB PO SCH (09:58)
[2021-05-06] MEDS: CHOLECALCIFEROL 1,000 UNITS 25 MCG TAB PO SCH (09:58)
[2021-05-06] MEDS: HYDROCORTISONE 10 MG TAB PO SCH ×2 (09:59→16:23)
[2021-05-06] MEDS: LANSOPRAZOLE 30 MG SOLTAB PO SCH (10:00)
[2021-05-06] MEDS: VALPROIC ACID SOLN 250 MG/5 ML UDC PO SCH (10:12)
[2021-05-06] MEDS: MICONAZOLE NITRATE POWDER 43 GM EXT SCH ×2 (10:14→19:45)
--- NOTE | 2021-05-06 13:01 | Hospitalist Progress Note ---
Date of Service May 06, 2021 Assessment & Plan (1) Adrenal insufficiency: Plan: Admitted with weakness, nausea, worsening hyponatremia, orthostatic hypotension ongoing for a long time Initial fasting AM cortisol earlier in hospital course was low normal at 5, but now repeat even lower at 3 and no use of steroids More of a chronic presentation CT abd/pel on 03/17/21 with normal adrenal glands; Brain MRI 03/18/21 normal Perhaps related to autoimmune disorder? - On 04/22, started hydrocortisone 10mg in AM and 5mg in PM-significantly improved - Will need f/u as Endocrine as outpt - ACTH level is 10 and plasma renin activity 1.93 (2) Anemia: Plan: - hgb was 7.3 on arrival -- up to 10.1 without intervention/no transfusion- has waxed and waned between 8-10. Most likely margin of error in the lab - Microcytic - stool for occult blood negative x 2 - Did have a W/U and Seen by established house servant/oncologist-- started on Ferrous sulfate/folic acid and B12 - EGD on 04/13 - dilated esophagus due to benign appearing esophageal stenosis; gastritis with biopsy obtained - repeated endoscopy for retreatment on 04/27/21 - Pathology - chronic gastritis, mild; neg H. pylori, no metaplasia, dysplasia, or malignancy (3) Hypotension: Plan: - Initially thought secondary to Seroquel and metoprolol side effect - Improved w/ hydrocortisone, addition of midodrine and dc of home metoprolol - Pt has since been weaned off Midodrine - BPs stable/hypotension has resolved, will continue to monitor (4) Dysphagia: Plan: Had complaint of feeling like food is getting stuck with swallowing on 04/06 Has had intermittent episodes of vomiting after taking pills throughout his hospital stay Has a h/o esophageal strictures requiring dilatation in 2017 He would not be able to withstand a barium swallow as he cannot stand up for more than a few seconds to a minute at a time Now s/p esophageal dilatation on 04/13 for severe restriction and doing much better with swallowing - Tolerating diet - Continue Prevacid (d/t soluble nature and issues with pill swallowing) - changed bigger pills to liquids - GI following - esophageal dilatation on 04/27 completed (5) CKD (chronic kidney disease) stage 2, GFR 60-89 ml/min: Plan: - Renal function appears to be at baseline in this patient, continue to monitor periodically (6) Chronic hypoxemic respiratory failure: Plan: - chronic. No acute issues - continue O2 prn-none needed for weeks (7) COPD (chronic obstructive pulmonary disease) with chronic bronchitis: Plan: - Patient with a history of COPD, still smoking despite lung cancer diagnosis - ? reoccurrence of non-small cell lung CA on imaging - Trelegy (ICS/AC/LABA) as an outpatient - We will substitute Anoro Ellipta (AC/LABA) and Arnuity Ellipta (ICS) while inpatient - Oxygenating well on room air - Supplemental oxygen as needed to maintain SaO2 between 88 and 92%-has not needed O2 in a long time - pulmonology consulted (previously followed w/ Dr. 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 Was tapped in the past. 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 - monitor (11) Peripheral arterial disease: Plan: - Started on Plavix and Aspirin - History of aortofemoral bypass per prior notes (12) Bilateral carotid artery occlusion: Plan: - started Plavix and statin this admission (13) Unstageable pressure ulcer of left heel: Plan: - no osteo continue local care (14) Bipolar disorder: Plan: stable - continue depakote but changed to liquid as tabs large and hard to swallow - continue reduced dose of seroquel and wellbutrin (15) Constipation: Plan: - bowel protocol ordered on board; adequate bowel movements - continue senna/docusate - Miralax PRN (16) Right shoulder pain: Plan: - Voltaren gel to right shoulder Plan: Disposition: Lives alone in [facility] and is quite debilitated (prolonged course of mobility issues) Working with case management. still looking for rehab placement-no beds available, multiple referrals out - Working on transfers to see if we can get him home with family support - seeing if able to bring home wheelchair as he thinks he might be able to transfer better with that - Sister (EJ), ex-, and friend are in agreement to home with their support and home services - PT has been working on transfers as he has not been standing for quite some time - last eval he was able to transfer to wheelchair but could not transfer back Therapy needs to be working with patient daily in order to determine if able to get him to transfer to the point of transitioning back home with home health. Per CM note on 05/05, [facility] may have a bed available in the next few d ays. Medically stable for discharge if rehab is found and willing to go but would need to continue to work on transfers if going home Admission and Anticipated Discharge Date Admission Date: March 20, 2021 Subjective Mr. Luther was seen on rounds this morning. Pt remains hospitalized awaiting bed ring making machine operator placement due to debility and inability to care for himself. He is currently sleeping in bed, but awakens to answer questions. He verbalizes no com plaints/concerns at present. Denies cp, dyspnea, n/v/d, f/c, headache, or gu symptoms. Review of Systems Review of Systems: CONSTITUTIONAL: Denies weight loss/gain, fever and chills, fatigue, malaise, generalized weakness. HEENT: Denies changes in vision and hearing. RESPIRATORY: Denies SOB, cough, wheezing. CV: Denies palpitations, CP, lower extremity edema, orthopnea, PND. GI: Denies abdominal pain, nausea, vomiting and diarrhea. : Denies dysuria and urinary frequency, urgency, hesitancy. MUSCULOSKELETAL: Denies myalgia and joint pain. SKIN: Denies rash and pruritus. NEUROLOGICAL: Denies headache, syncope, focal weakness, numbness, tingling. PSYCHIATRIC: Denies recent changes in mood. Denies anxiety and depression. Physical Exam Physical Exam: GENERAL: 66 yo WM who appears older than stated age. Well- developed, well-nourished. NAD. LUNGS: Clear to auscultation bilaterally. No accessory muscle use. No W/R/R. CARDIOVASCULAR: Regular rate and rhythm. No M/G/R. No JVD. ABDOMEN: Soft, non-tender and non-distended. No palpable masses. Bowel sounds normoactive x 4 quad. EXTREMITIES: No edema. Non-tender. Peripheral pulses +2/4. PSYCHIATRIC: Cooperative. Appropriate mood and affect. SKIN: Warm, dry, intact. No rashes or lesions. Results & Data Results & Data ([facility]) Vital Signs (Past 12 Hours) Vital Signs Temp Pulse Resp BP Pulse Ox 05/06/21 07:04 37.0 C 71 19 114/66 98 PG Care Time/CCT Total # of Minutes Spent Total Time Spent with Patient: Total time spent is greater than 50% in coordination of care (as documented) at patient's floor/unit and/or counseling patient: Coding Level of Care Code 30357 Subseq Hosp Care Lvl 1 Diagnoses Adrenal insufficiency E27.40 Anemia D64.9 Hypotension I95.9 Dysphagia R13.10 CKD (chronic kidney disease) stage 2, GFR 60-89 ml/min N18.2 Chronic hypoxemic respiratory failure J96.11 COPD (chronic obstructive pulmonary disease) with chronic bronchitis J44.9 History of lung cancer Z85.118 Recurrent left pleural effusion J90 Hyponatremia E87.1 Peripheral arterial disease I73.9 Bilateral carotid artery occlusion I65.23 Unstageable pressure ulcer of left heel L89.620 Bipolar disorder F31.9 Most recent bipolar episode type: most recent episode unspecified type Constipation K59.00 Right shoulder pain M25.511 (1) Bipolar disorder Most recent bipolar episode type: most recent episode unspecified type
[2021-05-06] MEDS: VALPROIC ACID SOLN 500 MG/10 ML UDC PO SCH (19:44)
--- NOTE | 2021-05-07 08:59 | Hospitalist Progress Note ---
Date of Service May 07, 2021 Assessment & Plan (1) Adrenal insufficiency: Plan: Admitted with weakness, nausea, worsening hyponatremia, orthostatic hypotension ongoing for a long time Initial fasting AM cortisol earlier in hospital course was low normal at 5, but now repeat even lower at 3 and no use of steroids More of a chronic presentation CT abd/pel on 03/17/21 with normal adrenal glands; Brain MRI 03/18/21 normal Perhaps related to autoimmune disorder? - On 04/22, started hydrocortisone 10mg in AM and 5mg in PM-significantly improved - Will need f/u as Endocrine as outpt - ACTH level is 10 and plasma renin activity 1.93 (2) Anemia: Plan: - hgb was 7.3 on arrival -- up to 10.1 without intervention/no transfusion- has waxed and waned between 8-10. Most likely margin of error in the lab - Microcytic - stool for occult blood negative x 2 - Did have a W/U and Seen by established highway technician/oncologist-- started on Ferrous sulfate/folic acid and B12 - EGD on 04/13 - dilated esophagus due to benign appearing esophageal stenosis; gastritis with biopsy obtained - repeated endoscopy for retreatment on 04/27/21 - Pathology - chronic gastritis, mild; neg H. pylori, no metaplasia, dysplasia, or malignancy (3) Hypotension: Plan: - Initially thought secondary to Seroquel and metoprolol side effect - Improved w/ hydrocortisone, addition of midodrine and dc of home metoprolol - Pt has since been weaned off Midodrine - BPs stable/hypotension has resolved, will continue to monitor (4) Dysphagia: Plan: Had complaint of feeling like food is getting stuck with swallowing on 04/06 Has had intermittent episodes of vomiting after taking pills throughout his hospital stay Has a h/o esophageal strictures requiring dilatation in 2017 He would not be able to withstand a barium swallow as he cannot stand up for more than a few seconds to a minute at a time Now s/p esophageal dilatation on 04/13 for severe restriction and doing much better with swallowing - Tolerating diet - Continue Prevacid (d/t soluble nature and issues with pill swallowing) - changed bigger pills to liquids - GI following - esophageal dilatation on 04/27 completed (5) CKD (chronic kidney disease) stage 2, GFR 60-89 ml/min: Plan: - Renal function appears to be at baseline in this patient, continue to monitor periodically (6) Chronic hypoxemic respiratory failure: Plan: - chronic. No acute issues - continue O2 prn-none needed for weeks (7) COPD (chronic obstructive pulmonary disease) with chronic bronchitis: Plan: - Patient with a history of COPD, still smoking despite lung cancer diagnosis - ? reoccurrence of non-small cell lung CA on imaging - Trelegy (ICS/AC/LABA) as an outpatient - We will substitute Anoro Ellipta (AC/LABA) and Arnuity Ellipta (ICS) while inpatient - Oxygenating well on room air - Supplemental oxygen as needed to maintain SaO2 between 88 and 92%-has not needed O2 in a long time - pulmonology consulted (previously followed w/ Dr. 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 Was tapped in the past. 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 - monitor (11) Peripheral arterial disease: Plan: - Started on Plavix and Aspirin - History of aortofemoral bypass per prior notes (12) Bilateral carotid artery occlusion: Plan: - started Plavix and statin this admission (13) Unstageable pressure ulcer of left heel: Plan: - no osteo continue local care (14) Bipolar disorder: Plan: stable - continue depakote but changed to liquid as tabs large and hard to swallow - continue reduced dose of seroquel and wellbutrin (15) Constipation: Plan: - bowel protocol ordered on board; adequate bowel movements - continue senna/docusate - Miralax PRN (16) Right shoulder pain: Plan: - Voltaren gel to right shoulder Plan: Disposition: Lives alone in [facility] and is quite debilitated (prolonged course of mobility issues) Working with case management. still looking for rehab placement-no beds available, multiple referrals out - Working on transfers to see if we can get him home with family support - seeing if able to bring home wheelchair as he thinks he might be able to transfer better with that - Sister (EJ), ex-, and friend are in agreement to home with their support and home services - PT has been working on transfers as he has not been standing for quite some time - last eval he was able to transfer to wheelchair but could not transfer back Therapy needs to be working with patient daily in order to determine if able to get him to transfer to the point of transitioning back home with home health. Per CM note on 05/05, [facility] may have a bed available in the next few d ays. Note from 05/07 indicates CM communicating with his [facility] coordinator for waiver services to determine if they can increase aide care so that he could go home vs. snf. Medically stable for discharge if rehab is found and willing to go but would need to continue to work on transfers if going home Admission and Anticipated Discharge Date Admission Date: March 20, 2021 Subjective Mr. Luther was seen on rounds this morning. Pt remains hospitalized awaiting bed long term care administrator placement due to debility and inability to care for himself. He was working with PT on rounds this morning. PT reports he is slowly improving. Does well transitioning from bed to wheelchair but needs more assistance transitioning back to bed. He verbalizes no complaints/concerns at present. Denies cp, dyspnea, n/v/d, f/c, headache, or gu symptoms. Review of Systems Review of Systems: CONSTITUTIONAL: Denies weight loss/gain, fever and chills, fatigue, malaise, generalized weakness. HEENT: Denies changes in vision and hearing. RESPIRATORY: Denies SOB, cough, wheezing. CV: Denies palpitations, CP, lower extremity edema, orthopnea, PND. GI: Denies abdominal pain, nausea, vomiting and diarrhea. : Denies dysuria and urinary frequency, urgency, hesitancy. MUSCULOSKELETAL: Denies myalgia and joint pain. SKIN: Denies rash and pruritus. NEUROLOGICAL: Denies headache, syncope, focal weakness, numbness, tingling. PSYCHIATRIC: Denies recent changes in mood. Denies anxiety and depression. Physical Exam Physical Exam: GENERAL: 66 yo WM who appears older than stated age. Well- developed, well-nourished. NAD. LUNGS: Clear to auscultation bilaterally. No accessory muscle use. No W/R/R. CARDIOVASCULAR: Regular rate and rhythm. No M/G/R. No JVD. ABDOMEN: Soft, non-tender and non-distended. No palpable masses. Bowel sounds normoactive x 4 quad. EXTREMITIES: No edema. Non-tender. Peripheral pulses +2/4. PSYCHIATRIC: Cooperative. Appropriate mood and affect. SKIN: Warm, dry, intact. No rashes or lesions. Results & Data Results & Data ([facility]) Vital Signs (Past 12 Hours) Vital Signs Temp Pulse Resp BP Pulse Ox 05/07/21 07:28 36.6 C 78 16 110/72 100 05/06/21 22:52 60 18 121/76 92 PG Care Time/CCT Total # of Minutes Spent Total Time Spent with Patient: Total time spent is greater than 50% in coordination of care (as documented) at patient's floor/unit and/or counseling patient: Coding Level of Care Code 58576 Subseq Hosp Care Lvl 1 Diagnoses Adrenal insufficiency E27.40 Anemia D64.9 Hypotension I95.9 Dysphagia R13.10 CKD (chronic kidney disease) stage 2, GFR 60-89 ml/min N18.2 Chronic hypoxemic respiratory failure J96.11 COPD (chronic obstructive pulmonary disease) with chronic bronchitis J44.9 History of lung cancer Z85.118 Recurrent left pleural effusion J90 Hyponatremia E87.1 Peripheral arterial disease I73.9 Bilateral carotid artery occlusion I65.23 Unstageable pressure ulcer of left heel L89.620 Bipolar disorder F31.9 Most recent bipolar episode type: most recent episode unspecified type Constipation K59.00 Right shoulder pain M25.511 (1) Bipolar disorder Most recent bipolar episode type: most recent episode unspecified type
[2021-05-07] MEDS: FERROUS SULFATE ELIX 220MG/5ML PO SCH ×2 (09:52→17:08)
[2021-05-07] MEDS: LANSOPRAZOLE 30 MG SOLTAB PO SCH (09:53)
[2021-05-07] MEDS: ASCORBIC ACID 500 MG TAB PO SCH ×2 (09:54→19:37)
[2021-05-07] MEDS: ATORVASTATIN 40 MG TAB PO SCH (09:54)
[2021-05-07] MEDS: CHOLECALCIFEROL 1,000 UNITS 25 MCG TAB PO SCH (09:55)
[2021-05-07] MEDS: buPROPion HCl 100 MG TABLET PO SCH (09:55)
[2021-05-07] MEDS: HYDROCORTISONE 10 MG TAB PO SCH ×2 (09:56→15:40)
[2021-05-07] MEDS: FOLIC ACID 1 MG TAB PO SCH (09:56)
[2021-05-07] MEDS: VALPROIC ACID SOLN 250 MG/5 ML UDC PO SCH (09:57)
[2021-05-07] MEDS: UMECLIDINIUM/VILANTEROL 62.5/25MCG 7 PUFFS/INHALER INH SCH (09:58)
[2021-05-07] MEDS: MICONAZOLE NITRATE POWDER 43 GM EXT SCH ×2 (09:59→19:38)
[2021-05-07] MEDS: FLUTICASONE FUROATE 100MCG 14 PUFFS/INHALER INH SCH (10:00)
[2021-05-07] MEDS: VALPROIC ACID SOLN 500 MG/10 ML UDC PO SCH (19:38)
[2021-05-08] MEDS: ATORVASTATIN 40 MG TAB PO SCH (08:29)
[2021-05-08] MEDS: FERROUS SULFATE ELIX 220MG/5ML PO SCH ×2 (08:29→15:46)
[2021-05-08] MEDS: buPROPion HCl 100 MG TABLET PO SCH (08:29)
[2021-05-08] MEDS: CHOLECALCIFEROL 1,000 UNITS 25 MCG TAB PO SCH (08:29)
[2021-05-08] MEDS: ASCORBIC ACID 500 MG TAB PO SCH ×2 (08:29→20:10)
[2021-05-08] MEDS: HYDROCORTISONE 10 MG TAB PO SCH ×2 (08:30→15:45)
[2021-05-08] MEDS: LANSOPRAZOLE 30 MG SOLTAB PO SCH (08:30)
[2021-05-08] MEDS: FOLIC ACID 1 MG TAB PO SCH (08:30)
[2021-05-08] MEDS: FLUTICASONE FUROATE 100MCG 14 PUFFS/INHALER INH SCH (08:30)
[2021-05-08] MEDS: VALPROIC ACID SOLN 250 MG/5 ML UDC PO SCH (08:31)
[2021-05-08] MEDS: UMECLIDINIUM/VILANTEROL 62.5/25MCG 7 PUFFS/INHALER INH SCH (08:31)
[2021-05-08] MEDS: MICONAZOLE NITRATE POWDER 43 GM EXT SCH ×2 (08:39→20:10)
--- NOTE | 2021-05-08 08:47 | Hospitalist Progress Note ---
Date of Service May 08, 2021 Assessment & Plan (1) Adrenal insufficiency: Plan: Admitted with weakness, nausea, worsening hyponatremia, orthostatic hypotension ongoing for a long time Initial fasting AM cortisol earlier in hospital course was low normal at 5, but now repeat even lower at 3 and no use of steroids More of a chronic presentation CT abd/pel on 03/17/21 with normal adrenal glands; Brain MRI 03/18/21 normal Perhaps related to autoimmune disorder? - On 04/22, started hydrocortisone 10mg in AM and 5mg in PM-significantly improved - Will need f/u as Endocrine as outpt - ACTH level is 10 and plasma renin activity 1.93 (2) Anemia: Plan: - hgb was 7.3 on arrival -- up to 10.1 without intervention/no transfusion- has waxed and waned between 8-10. Most likely margin of error in the lab - Microcytic - stool for occult blood negative x 2 - Did have a W/U and Seen by established driver/oncologist-- started on Ferrous sulfate/folic acid and B12 - EGD on 04/13 - dilated esophagus due to benign appearing esophageal stenosis; gastritis with biopsy obtained - repeated endoscopy for retreatment on 04/27/21 - Pathology - chronic gastritis, mild; neg H. pylori, no metaplasia, dysplasia, or malignancy (3) Hypotension: Plan: - Initially thought secondary to Seroquel and metoprolol side effect - Improved w/ hydrocortisone, addition of midodrine and dc of home metoprolol - Pt has since been weaned off Midodrine - BPs stable/hypotension has resolved, will continue to monitor (4) Dysphagia: Plan: Had complaint of feeling like food is getting stuck with swallowing on 04/06 Has had intermittent episodes of vomiting after taking pills throughout his hospital stay Has a h/o esophageal strictures requiring dilatation in 2017 He would not be able to withstand a barium swallow as he cannot stand up for more than a few seconds to a minute at a time Now s/p esophageal dilatation on 04/13 for severe restriction and doing much better with swallowing - Tolerating diet - Continue Prevacid (d/t soluble nature and issues with pill swallowing) - changed bigger pills to liquids - GI following - esophageal dilatation on 04/27 completed (5) CKD (chronic kidney disease) stage 2, GFR 60-89 ml/min: Plan: - Renal function appears to be at baseline in this patient, continue to monitor periodically (6) Chronic hypoxemic respiratory failure: Plan: - chronic. No acute issues - continue O2 prn-none needed for weeks (7) COPD (chronic obstructive pulmonary disease) with chronic bronchitis: Plan: - Patient with a history of COPD, still smoking despite lung cancer diagnosis - ? reoccurrence of non-small cell lung CA on imaging - Trelegy (ICS/AC/LABA) as an outpatient - We will substitute Anoro Ellipta (AC/LABA) and Arnuity Ellipta (ICS) while inpatient - Oxygenating well on room air - Supplemental oxygen as needed to maintain SaO2 between 88 and 92%-has not needed O2 in a long time - pulmonology consulted (previously followed w/ Dr. Morin), d/t pleural effusion on admission - has since signed off (8) History of lung cancer: Plan: - Hematology/oncology consulted - will tack picker again as an outpatient on discharge, however not sure if patient would be a good candidate for any treatment moving forward given noncompliance although now that he will be in a SNF environment, would be better - MRI brain w/wo contrast with no evidence of metastatic disease (9) Recurrent left pleural effusion: Plan: - Pulmonology consulted/signed off - given asymptomatic status- no intervention. Was tapped in the past. 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 - monitor (11) Peripheral arterial disease: Plan: - Started on Plavix and Aspirin - History of aortofemoral bypass per prior notes (12) Bilateral carotid artery occlusion: Plan: - started Plavix and statin this admission (13) Unstageable pressure ulcer of left heel: Plan: - no osteo continue local care (14) Bipolar disorder: Plan: stable - continue depakote but changed to liquid as tabs large and hard to swallow - continue reduced dose of seroquel and wellbutrin (15) Constipation: Plan: - bowel protocol ordered on board; adequate bowel movements - continue senna/docusate - Miralax PRN (16) Right shoulder pain: Plan: - Voltaren gel to right shoulder Plan: Disposition: Lives alone in [facility] and is quite debilitated (prolonged course of mobility issues) Working with case management. still looking for rehab placement-no beds available, multiple referrals out - Working on transfers to see if we can get him home with family support - seeing if able to bring home wheelchair as he thinks he might be able to transfer better with that - Sister (EJ), ex-, and friend are in agreement to home with their support and home services - PT has been working on transfers as he has not been standing for quite some time - last eval he was able to transfer to wheelchair but could not transfer back Therapy needs to be working with patient daily in order to determine if able to get him to transfer to the point of transitioning back home with home health. Per CM note on 05/05, [facility] may have a bed available in the next few d ays. Note from 05/07 indicates CM communicating with his [facility] coordinator for waiver services to determine if they can increase aide care so that he could go home vs. snf. Medically stable for discharge if bed at SNF for rehab is found and willing to go but would need to continue to work on transfers if going home Admission and Anticipated Discharge Date Admission Date: March 20, 2021 Subjective Mr. Luther was seen on rounds this morning. 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 He was working with PT on rounds this morning. PT reports he is slowly improving. Does well transitioning from bed to wheelchair but needs more assistance transitioning back to bed. He verbalizes no complaints/concerns at present. Denies cp, dyspnea, n/v/d, f/c, headache, or gu symptoms. Review of Systems Review of Systems: CONSTITUTIONAL: Denies weight loss/gain, fever and chills, fatigue, malaise, generalized weakness. HEENT: Denies changes in vision and hearing. RESPIRATORY: Denies SOB, cough, wheezing. CV: Denies palpitations, CP, lower extremity edema, orthopnea, PND. GI: Denies abdominal pain, nausea, vomiting and diarrhea. : Denies dysuria and urinary frequency, urgency, hesitancy. MUSCULOSKELETAL: Denies myalgia and joint pain. SKIN: Denies rash and pruritus. NEUROLOGICAL: Denies headache, syncope, focal weakness, numbness, tingling. PSYCHIATRIC: Denies recent changes in mood. Denies anxiety and depression. Physical Exam Physical Exam: GENERAL: 66 yo WM who appears older than stated age. Pleasant, WD/WN. NAD. LUNGS: Clear to auscultation bilaterally. No accessory muscle use. No W/R/R. CARDIOVASCULAR: Regular rate and rhythm. No M/G/R. No JVD. ABDOMEN: Soft, non-tender and non-distended. BS normal x 4 quad. EXTREMITIES: No edema. Non-tender. Peripheral pulses +2/4. PSYCHIATRIC: Cooperative. Appropriate mood and affect. SKIN: Warm, dry, intact. No rashes or lesions. Results & Data Results & Data ([facility]) Vital Signs (Past 12 Hours) Vital Signs Temp Pulse Resp BP Pulse Ox 05/08/21 07:35 36.6 C 70 16 156/79 H 99 05/07/21 22:28 36.5 C 76 18 148/79 H 99 PG Care Time/CCT Total # of Minutes Spent Total Time Spent with Patient: Total time spent is greater than 50% in coordination of care (as documented) at patient's floor/unit and/or counseling patient: Coding Level of Care Code 50893 Subseq Hosp Care Lvl 1 Diagnoses Adrenal insufficiency E27.40 Anemia D64.9 Hypotension I95.9 Dysphagia R13.10 CKD (chronic kidney disease) stage 2, GFR 60-89 ml/min N18.2 Chronic hypoxemic respiratory failure J96.11 COPD (chronic obstructive pulmonary disease) with chronic bronchitis J44.9 History of lung cancer Z85.118 Recurrent left pleural effusion J90 Hyponatremia E87.1 Peripheral arterial disease I73.9 Bilateral carotid artery occlusion I65.23 Unstageable pressure ulcer of left heel L89.620 Bipolar disorder F31.9 Most recent bipolar episode type: most recent episode unspecified type Constipation K59.00 Right shoulder pain M25.511 (1) Bipolar disorder Most recent bipolar episode type: most recent episode unspecified type
[2021-05-08] MEDS: VALPROIC ACID SOLN 500 MG/10 ML UDC PO SCH (20:10)
[2021-05-09] MEDS: HYDROCORTISONE 10 MG TAB PO SCH ×2 (08:22→16:12)
[2021-05-09] MEDS: LANSOPRAZOLE 30 MG SOLTAB PO SCH (08:22)
[2021-05-09] MEDS: buPROPion HCl 100 MG TABLET PO SCH (08:22)
[2021-05-09] MEDS: FOLIC ACID 1 MG TAB PO SCH (08:22)
[2021-05-09] MEDS: CHOLECALCIFEROL 1,000 UNITS 25 MCG TAB PO SCH (08:22)
[2021-05-09] MEDS: VALPROIC ACID SOLN 250 MG/5 ML UDC PO SCH (08:22)
[2021-05-09] MEDS: ATORVASTATIN 40 MG TAB PO SCH (08:22)
[2021-05-09] MEDS: ASCORBIC ACID 500 MG TAB PO SCH ×2 (08:22→22:14)
[2021-05-09] MEDS: FLUTICASONE FUROATE 100MCG 14 PUFFS/INHALER INH SCH (08:23)
[2021-05-09] MEDS: UMECLIDINIUM/VILANTEROL 62.5/25MCG 7 PUFFS/INHALER INH SCH (08:23)
[2021-05-09] MEDS: FERROUS SULFATE ELIX 220MG/5ML PO SCH ×2 (08:23→16:12)
[2021-05-09] MEDS: MICONAZOLE NITRATE POWDER 43 GM EXT SCH ×2 (08:23→22:14)
--- NOTE | 2021-05-09 08:25 | Hospitalist Progress Note ---
Date of Service May 09, 2021 Assessment & Plan (1) Adrenal insufficiency: Plan: Admitted with weakness, nausea, worsening hyponatremia, orthostatic hypotension ongoing for a long time Initial fasting AM cortisol earlier in hospital course was low normal at 5, but now repeat even lower at 3 and no use of steroids More of a chronic presentation CT abd/pel on 03/17/21 with normal adrenal glands; Brain MRI 03/18/21 normal Perhaps related to autoimmune disorder? - On 04/22, started hydrocortisone 10mg in AM and 5mg in PM-significantly improved - Will need f/u as Endocrine as outpt - ACTH level is 10 and plasma renin activity 1.93 (2) Anemia: Plan: - hgb was 7.3 on arrival -- up to 10.1 without intervention/no transfusion- has waxed and waned between 8-10. Most likely margin of error in the lab - Microcytic - stool for occult blood negative x 2 - Did have a W/U and Seen by established clinical lab clerk/oncologist-- started on Ferrous sulfate/folic acid and B12 - EGD on 04/13 - dilated esophagus due to benign appearing esophageal stenosis; gastritis with biopsy obtained - repeated endoscopy for retreatment on 04/27/21 - Pathology - chronic gastritis, mild; neg H. pylori, no metaplasia, dysplasia, or malignancy (3) Hypotension: Plan: - Initially thought secondary to Seroquel and metoprolol side effect - Improved w/ hydrocortisone, addition of midodrine and dc of home metoprolol - Pt has since been weaned off Midodrine - BPs stable/hypotension has resolved, will continue to monitor (4) Dysphagia: Plan: Had complaint of feeling like food is getting stuck with swallowing on 04/06 Has had intermittent episodes of vomiting after taking pills throughout his hospital stay Has a h/o esophageal strictures requiring dilatation in 2017 He would not be able to withstand a barium swallow as he cannot stand up for more than a few seconds to a minute at a time Now s/p esophageal dilatation on 04/13 for severe restriction and doing much better with swallowing - Tolerating diet - Continue Prevacid (d/t soluble nature and issues with pill swallowing) - changed bigger pills to liquids - GI following - esophageal dilatation on 04/27 completed (5) CKD (chronic kidney disease) stage 2, GFR 60-89 ml/min: Plan: - Renal function appears to be at baseline in this patient, continue to monitor periodically (6) Chronic hypoxemic respiratory failure: Plan: - chronic. No acute issues - continue O2 prn-none needed for weeks (7) COPD (chronic obstructive pulmonary disease) with chronic bronchitis: Plan: - Patient with a history of COPD, still smoking despite lung cancer diagnosis - ? reoccurrence of non-small cell lung CA on imaging - Trelegy (ICS/AC/LABA) as an outpatient - We will substitute Anoro Ellipta (AC/LABA) and Arnuity Ellipta (ICS) while inpatient - Oxygenating well on room air - Supplemental oxygen as needed to maintain SaO2 between 88 and 92%-has not needed O2 in a long time - pulmonology consulted (previously followed w/ Dr. 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 Was tapped in the past. 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 - monitor (11) Peripheral arterial disease: Plan: - Started on Plavix and Aspirin - History of aortofemoral bypass per prior notes (12) Bilateral carotid artery occlusion: Plan: - started Plavix and statin this admission (13) Unstageable pressure ulcer of left heel: Plan: - no osteo continue local care (14) Bipolar disorder: Plan: stable - continue depakote but changed to liquid as tabs large and hard to swallow - continue reduced dose of seroquel and wellbutrin (15) Constipation: Plan: - bowel protocol ordered on board; adequate bowel movements - continue senna/docusate - Miralax PRN (16) Right shoulder pain: Plan: - Voltaren gel to right shoulder Plan: Disposition: Lives alone in [facility] and is quite debilitated (prolonged course of mobility issues) Working with case management. still looking for rehab placement-no beds available, multiple referrals out - Working on transfers to see if we can get him home with family support - seeing if able to bring home wheelchair as he thinks he might be able to transfer better with that - Sister (POA), ex-, and friend are in agreement to home with their support and home services - PT has been working on transfers as he has not been standing for quite some time - last eval he was able to transfer to wheelchair but could not transfer back Therapy needs to be working with patient daily in order to determine if able to get him to transfer to the point of transitioning back home with home health. Per CM note on 05/05, [facility] may have a bed available in the next few days. Note from 05/07 indicates CM communicating with his [facility] coordinator for waiver services to determine if they can increase aide care so that he could go home vs. snf. CM note from 05/08 notes that he has not been accepted at any SNFs due to not being vaccinated against COVID. When I asked him about his vaccine status, he states that he was vaccinated with two shots, couldn't recall which brand. I did mention this to CM today (05/09) and this is to be investigated further. I would offer and obtain consent for patient to get J&J vaccine in house if he was not already vaccinated. Medically stable for discharge if bed at SNF for rehab is found and willing to go but would need to continue to work on transfers if going home. CM working on expanding current services so the can go home. Admission and Anticipated Discharge Date Admission Date: March 20, 2021 Subjective Mr. Luther was seen on rounds this morning. 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 He was working with PT on rounds this morning. PT reports he is slowly improving. Does well transitioning from bed to wheelchair but needs more assistance transi tioning back to bed. He verbalizes no complaints/concerns at present. Denies cp, dyspnea, n/v/d, f/c, headache, or gu symptoms. Review of Systems Review of Systems: CONSTITUTIONAL: Denies weight loss/gain, fever and chills, fatigue, malaise, generalized weakness. HEENT: Denies changes in vision and hearing. RESPIRATORY: Denies SOB, cough, wheezing. CV: Denies palpitations, CP, lower extremity edema, orthopnea, PND. GI: Denies abdominal pain, nausea, vomiting and diarrhea. : Denies dysuria and urinary frequency, urgency, hesitancy. MUSCULOSKELETAL: Denies myalgia and joint pain. SKIN: Denies rash and pruritus. NEUROLOGICAL: Denies headache, syncope, focal weakness, numbness, tingling. PSYCHIATRIC: Denies recent changes in mood. Denies anxiety and depression. Physical Exam Physical Exam: GENERAL: 66 yo WM who appears older than stated age. Pleasant, WD/WN. NAD. LUNGS: Scattered expiratory wheezes throughout. CARDIOVASCULAR: Regular rate and rhythm. No M/G/R. No JVD. ABDOMEN: Soft, non-tender and non-distended. BS normal x 4 quad. EXTREMITIES: No edema. Non-tender. Peripheral pulses +2/4. PSYCHIATRIC: Cooperative. Appropriate mood and affect. SKIN: Warm, dry, intact. No rashes or lesions. Results & Data Results & Data ([facility] [place]) Vital Signs (Past 12 Hours) Vital Signs Temp Pulse Resp BP Pulse Ox 05/09/21 08:19 36.3 C L 64 16 115/74 97 05/08/21 22:57 36.6 C 78 17 115/71 95 PG Care Time/CCT Total # of Minutes Spent Total Time Spent with Patient: Total time spent is greater than 50% in coordination of care (as documented) at patient's floor/unit and/or counseling patient: Coding Level of Care Code 43711 Subseq Hosp Care Lvl 2 Diagnoses Adrenal insufficiency E27.40 Anemia D64.9 Hypotension I95.9 Dysphagia R13.10 CKD (chronic kidney disease) stage 2, GFR 60-89 ml/min N18.2 Chronic hypoxemic respiratory failure J96.11 COPD (chronic obstructive pulmonary disease) with chronic bronchitis J44.9 History of lung cancer Z85.118 Recurrent left pleural effusion J90 Hyponatremia E87.1 Peripheral arterial disease I73.9 Bilateral carotid artery occlusion I65.23 Unstageable pressure ulcer of left heel L89.620 Bipolar disorder F31.9 Most recent bipolar episode type: most recent episode unspecified type Constipation K59.00 Right shoulder pain M25.511 (1) Bipolar disorder Most recent bipolar episode type: most recent episode unspecified type
[2021-05-09] MEDS ORDERED: ALBUT/IPRATROP 3MG/0.5MG NEB 3 ML VIAL NEB STA (13:41)
[2021-05-09] MEDS: VALPROIC ACID SOLN 500 MG/10 ML UDC PO SCH (22:14)
[2021-05-10] MEDS: VALPROIC ACID SOLN 250 MG/5 ML UDC PO SCH (07:39)
[2021-05-10] MEDS: HYDROCORTISONE 10 MG TAB PO SCH ×2 (07:40→16:00)
[2021-05-10] MEDS: CHOLECALCIFEROL 1,000 UNITS 25 MCG TAB PO SCH (07:40)
[2021-05-10] MEDS: ASCORBIC ACID 500 MG TAB PO SCH ×2 (07:40→20:45)
[2021-05-10] MEDS: LANSOPRAZOLE 30 MG SOLTAB PO SCH (07:40)
[2021-05-10] MEDS: ATORVASTATIN 40 MG TAB PO SCH (07:41)
[2021-05-10] MEDS: FOLIC ACID 1 MG TAB PO SCH (07:41)
[2021-05-10] MEDS: FERROUS SULFATE ELIX 220MG/5ML PO SCH (07:41)
[2021-05-10] MEDS: FLUTICASONE FUROATE 100MCG 14 PUFFS/INHALER INH SCH (07:42)
[2021-05-10] MEDS: buPROPion HCl 100 MG TABLET PO SCH (07:42)
[2021-05-10] MEDS: UMECLIDINIUM/VILANTEROL 62.5/25MCG 7 PUFFS/INHALER INH SCH (07:43)
[2021-05-10] MEDS: MICONAZOLE NITRATE POWDER 43 GM EXT SCH ×2 (07:43→20:45)
--- NOTE | 2021-05-10 11:22 | Hospitalist Progress Note ---
Date of Service May 10, 2021 Assessment & Plan (1) Adrenal insufficiency: Plan: Admitted with weakness, nausea, worsening hyponatremia, orthostatic hypotension ongoing for a long time Initial fasting AM cortisol earlier in hospital course was low normal at 5, but now repeat even lower at 3 and no use of steroids More of a chronic presentation CT abd/pel on 03/17/21 with normal adrenal glands; Brain MRI 03/18/21 normal Perhaps related to autoimmune disorder? - On 04/22, started hydrocortisone 10mg in AM and 5mg in PM-significantly improved - Will need f/u as Endocrine as outpt - ACTH level is 10 and plasma renin activity 1.93 (2) Anemia: Plan: - hgb was 7.3 on arrival -- up to 10.1 without intervention/no transfusion- has waxed and waned between 8-10. Most likely margin of error in the lab - Microcytic - stool for occult blood negative x 2 - Did have a W/U and Seen by established director of primary/oncologist-- started on Ferrous sulfate/folic acid and B12 - EGD on 04/13 - dilated esophagus due to benign appearing esophageal stenosis; gastritis with biopsy obtained - repeated endoscopy for retreatment on 04/27/21 - Pathology - chronic gastritis, mild; neg H. pylori, no metaplasia, dysplasia, or malignancy (3) Hypotension: Plan: - Initially thought secondary to Seroquel and metoprolol side effect - Improved w/ hydrocortisone, addition of midodrine and dc of home metoprolol - Pt has since been weaned off Midodrine - BPs stable/hypotension has resolved, will continue to monitor (4) Dysphagia: Plan: Had complaint of feeling like food is getting stuck with swallowing on 04/06 Has had intermittent episodes of vomiting after taking pills throughout his hospital stay Has a h/o esophageal strictures requiring dilatation in 2017 He would not be able to withstand a barium swallow as he cannot stand up for more than a few seconds to a minute at a time Now s/p esophageal dilatation on 04/13 for severe restriction and doing much better with swallowing - Tolerating diet - Continue Prevacid (d/t soluble nature and issues with pill swallowing) - changed bigger pills to liquids - GI following - esophageal dilatation on 04/27 completed (5) CKD (chronic kidney disease) stage 2, GFR 60-89 ml/min: Plan: - Renal function appears to be at baseline in this patient, continue to monitor periodically (6) Chronic hypoxemic respiratory failure: Plan: - chronic. No acute issues - continue O2 prn-none needed for weeks (7) COPD (chronic obstructive pulmonary disease) with chronic bronchitis: Plan: - Patient with a history of COPD, still smoking despite lung cancer diagnosis - ? reoccurrence of non-small cell lung CA on imaging - Trelegy (ICS/AC/LABA) as an outpatient - We will substitute Anoro Ellipta (AC/LABA) and Arnuity Ellipta (ICS) while inpatient - Oxygenating well on room air - Supplemental oxygen as needed to maintain SaO2 between 88 and 92%-has not needed O2 in a long time - pulmonology consulted (previously followed w/ Dr. 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 Was tapped in the past. 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 - monitor (11) Peripheral arterial disease: Plan: - Started on Plavix and Aspirin - History of aortofemoral bypass per prior notes (12) Bilateral carotid artery occlusion: Plan: - started Plavix and statin this admission (13) Unstageable pressure ulcer of left heel: Plan: - no osteo continue local care (14) Bipolar disorder: Plan: stable - continue depakote but changed to liquid as tabs large and hard to swallow - continue reduced dose of seroquel and wellbutrin (15) Constipation: Plan: - bowel protocol ordered on board; adequate bowel movements - continue senna/docusate - Miralax PRN (16) Right shoulder pain: Plan: - Voltaren gel to right shoulder Plan: Disposition: Lives alone in [facility] and is quite debilitated (prolonged course of mobility issues) Working with case management. still looking for rehab placement-no beds available, multiple referrals out - Working on transfers to see if we can get him home with family support - seeing if able to bring home wheelchair as he thinks he might be able to transfer better with that - Sister (EJ), ex-, and friend are in agreement to home with their support and home services - PT has been working on transfers as he has not been standing for quite some time - last eval he was able to transfer to wheelchair but could not transfer back Therapy needs to be working with patient daily in order to determine if able to get him to transfer to the point of transitioning back home with home health. Per CM note on 05/05, [facility] a bed available in the next few d ays. Note from 05/07 indicates CM communicating with his [facility] coordinator for waiver services to determine if they can increase aide care so that he could go home vs. snf. CM note from 05/08 notes that he has not been accepted at any SNFs due to not being vaccinated against COVID. Will attempt to obtain proof that pt was vaccinated for COVID. Medically stable for discharge if bed at SNF for rehab is found and willing to go but would need to continue to work on transfers if going home. CM working on expanding current services so the can go home. Admission and Anticipated Discharge Date Admission Date: March 20, 2021 Subjective Mr. Luther was seen on rounds this morning. 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 He was working with PT on rounds this morning. PT reports he is slowly improving. Does well transitioning from bed to wheelchair but needs more assistance transitioning back to bed. He verbalizes no complaints/concerns at present. Denies cp, dyspnea, n/v/d, f/c, headache, or gu symptoms. Pt claims that he has been vaccinated against COVID through [facility] and that he has a card in his wallet. Review of Systems Review of Systems: CONSTITUTIONAL: Denies weight loss/gain, fever and chills, fatigue, malaise, generalized weakness. HEENT: Denies changes in vision and hearing. RESPIRATORY: Denies SOB, cough, wheezing. CV: Denies palpitations, CP, lower extremity edema, orthopnea, PND. GI: Denies abdominal pain, nausea, vomiting and diarrhea. : Denies dysuria and urinary frequency, urgency, hesitancy. MUSCULOSKELETAL: Denies myalgia and joint pain. SKIN: Denies rash and pruritus. NEUROLOGICAL: Denies headache, syncope, focal weakness, numbness, tingling. PSYCHIATRIC: Denies recent changes in mood. Denies anxiety and depression. Physical Exam Physical Exam: GENERAL: 66 yo WM who appears older than stated age. Pleasant, WD/WN. NAD. LUNGS: Clear throughout without W/R/R. CARDIOVASCULAR: Regular rate and rhythm. No M/G/R. No JVD. ABDOMEN: Soft, non-tender and non-distended. BS normal x 4 quad. EXTREMITIES: No edema. Non-tender. Peripheral pulses +2/4. PSYCHIATRIC: Cooperative. Appropriate mood and affect. SKIN: Warm, dry, intact. No rashes or lesions. Results & Data Results & Data ([facility]) Vital Signs (Past 12 Hours) Vital Signs Temp Pulse Resp BP Pulse Ox 05/10/21 07:22 36.5 C 72 18 96/64 L 96 PG Care Time/CCT Total # of Minutes Spent Total Time Spent with Patient: Total time spent is greater than 50% in coordination of care (as documented) at patient's floor/unit and/or counseling patient: Coding Level of Care Code 77318 Subseq Hosp Care Lvl 1 Diagnoses Adrenal insufficiency E27.40 Anemia D64.9 Hypotension I95.9 Dysphagia R13.10 CKD (chronic kidney disease) stage 2, GFR 60-89 ml/min N18.2 Chronic hypoxemic respiratory failure J96.11 COPD (chronic obstructive pulmonary disease) with chronic bronchitis J44.9 History of lung cancer Z85.118 Recurrent left pleural effusion J90 Hyponatremia E87.1 Peripheral arterial disease I73.9 Bilateral carotid artery occlusion I65.23 Unstageable pressure ulcer of left heel L89.620 Bipolar disorder F31.9 Most recent bipolar episode type: most recent episode unspecified type Constipation K59.00 Right shoulder pain M25.511 (1) Bipolar disorder Most recent bipolar episode type: most recent episode unspecified type
[2021-05-11] MEDS: MICONAZOLE NITRATE POWDER 43 GM EXT SCH (07:17)
[2021-05-11] MEDS: FLUTICASONE FUROATE 100MCG 14 PUFFS/INHALER INH SCH (07:17)
[2021-05-11] MEDS: FOLIC ACID 1 MG TAB PO SCH (07:18)
[2021-05-11] MEDS: ATORVASTATIN 40 MG TAB PO SCH (07:18)
[2021-05-11] MEDS: VALPROIC ACID SOLN 250 MG/5 ML UDC PO SCH (07:18)
[2021-05-11] MEDS: CHOLECALCIFEROL 1,000 UNITS 25 MCG TAB PO SCH (07:18)
[2021-05-11] MEDS: HYDROCORTISONE 10 MG TAB PO SCH ×2 (07:18→15:42)
[2021-05-11] MEDS: ASCORBIC ACID 500 MG TAB PO SCH ×2 (07:18→20:45)
[2021-05-11] MEDS: buPROPion HCl 100 MG TABLET PO SCH (07:18)
[2021-05-11] MEDS: UMECLIDINIUM/VILANTEROL 62.5/25MCG 7 PUFFS/INHALER INH SCH (07:19)
--- NOTE | 2021-05-11 17:44 | Hospitalist Progress Note ---
Date of Service May 11, 2021 Assessment & Plan (1) Adrenal insufficiency: Plan: Admitted with weakness, nausea, worsening hyponatremia, orthostatic hypotension ongoing for a long time Initial fasting AM cortisol earlier in hospital course was low normal at 5, but now repeat even lower at 3 and no use of steroids More of a chronic presentation CT abd/pel on 03/17/21 with normal adrenal glands; Brain MRI 03/18/21 normal Perhaps related to autoimmune disorder? - On 04/22, started hydrocortisone 10mg in AM and 5mg in PM-significantly improved - Will need f/u as Endocrine as outpt - ACTH level is 10 and plasma renin activity 1.93 (2) Anemia: Plan: - hgb was 7.3 on arrival -- up to 10.1 without intervention/no transfusion- has waxed and waned between 8-10. Most likely margin of error in the lab - Microcytic - stool for occult blood negative x 2 - Did have a W/U and Seen by established national sales manager/oncologist-- started on Ferrous sulfate/folic acid and B12 - EGD on 04/13 - dilated esophagus due to benign appearing esophageal stenosis; gastritis with biopsy obtained - repeated endoscopy for retreatment on 04/27/21 - Pathology - chronic gastritis, mild; neg H. pylori, no metaplasia, dysplasia, or malignancy (3) Hypotension: Plan: - Initially thought secondary to Seroquel and metoprolol side effect - Improved w/ hydrocortisone, addition of midodrine and dc of home metoprolol - Pt has since been weaned off Midodrine - BPs stable/hypotension has resolved, will continue to monitor (4) Dysphagia: Plan: Had complaint of feeling like food is getting stuck with swallowing on 04/06 -- Has had intermittent episodes of vomiting after taking pills throughout his hospital stay - much improved since dilation Has a h/o esophageal strictures requiring dilatation in 2017 He would not be able to withstand a barium swallow as he cannot stand up for more than a few seconds to a minute at a time Now s/p esophageal dilatation on 04/13 and 04/27 for severe restriction and doing much better with swallowing - Tolerating diet - Continue Prevacid (d/t soluble nature and issues with pill swallowing) - changed bigger pills to liquids (5) CKD (chronic kidney disease) stage 2, GFR 60-89 ml/min: Plan: - Renal function appears to be at baseline in this patient, continue to monitor periodically (6) Chronic hypoxemic respiratory failure: Plan: - chronic. No acute issues - continue O2 prn-none needed for weeks (7) COPD (chronic obstructive pulmonary disease) with chronic bronchitis: Plan: - Patient with a history of COPD, still smoking despite lung cancer diagnosis - ? reoccurrence of non-small cell lung CA on imaging - Trelegy (ICS/AC/LABA) as an outpatient - We will substitute Anoro Ellipta (AC/LABA) and Arnuity Ellipta (ICS) while inpatient - Oxygenating well on room air - Supplemental oxygen as needed to maintain SaO2 between 88 and 92%-has not needed O2 in a long time - pulmonology consulted (previously followed w/ Dr. 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 Was tapped in the past. - f/u as outpt with PULM especially will follow COPD treatment also (10) Hyponatremia: Plan: - resolved after starting hydrocortisone - last check at 131 and will monitor routiney - 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 (11) Peripheral arterial disease: Plan: - Started on Plavix and Aspirin - History of aortofemoral bypass per prior notes (12) Bilateral carotid artery occlusion: Plan: - started Plavix and statin this admission (13) Unstageable pressure ulcer of left heel: Plan: - no osteo continue local care (14) Bipolar disorder: Plan: stable - continue depakote but changed to liquid as tabs large and hard to swallow - continue reduced dose of seroquel and wellbutrin (15) Constipation: Plan: - bowel protocol ordered on board; adequate bowel movements - continue senna/docusate - Miralax PRN (16) Right shoulder pain: Plan: - Voltaren gel to right shoulder Plan: Disposition: Lives alone in [facility] and is quite debilitated (prolonged course of mobility issues) Working with case management. still looking for rehab placement-no beds available, multiple referrals out - Working on transfers to see if we can get him home with family support - seeing if able to bring home wheelchair as he thinks he might be able to transfer better with that - Sister (EJ), ex-, and friend are in agreement to home with their support and home services - PT has been working on transfers as he has not been standing for quite some time - last eval he was able to transfer to wheelchair but could not transfer back Therapy needs to be working with patient daily in order to determine if able to get him to transfer to the point of transitioning back home with home health. Per CM note on 05/05, [facility] may have a bed available in the next few days. Note from 05/07 indicates CM communicating with his [facility] coordinator for waiver services to determine if they can increase aide care so that he could go home vs. snf. CM note from 05/08 notes that he has not been accepted at any SNFs due to not being vaccinated against COVID. Will attempt to obtain proof that pt was vaccinated for COVID - states he has a card in his wallet Medically stable for discharge if bed at SNF for rehab is found and willing to go but would need to continue to work on transfers if going home. CM working on expanding current services so the can go home. Admission and Anticipated Discharge Date Admission Date: March 20, 2021 Subjective Reports doing well today. Seen during lunch and tolerating without issue. Verablizes no complaints to me today. Agrees he is still struggling to get from his chair back to bed/commode but feels he is slowly getting better. Working on trying to obtain more aides for at home if unable to place. Review of PT notes says he declined due to not feeling well? Review of Systems Review of Systems: All systems reviewed & are unremarkable except as noted in Subjective Physical Exam Physical Exam: PHYSICAL EXAM General Appearance: pale/frail male in NAD who is A&O x 3 HEENT: Head is normocephalic/atraumatic; Hearing grossly intact Neck: Supple; Trachea midline; Neg JVD Heart: RRR with no M/G/R Lungs: CTA in all lung goldberg bilaterally but diminished at bases bilaterally; Respirations unlabored; Neg accessory muscle use Abdomen: Soft, non-tender, non-distended; Positive BS x 4 quadrants Extremities: Neg cyanosis or edema Neurological: Speech clear Psychiatric: Appropriate mood/affect Results & Data Results & Data ([facility]) Vital Signs (Past 12 Hours) Vital Signs Temp Pulse Resp BP Pulse Ox 05/11/21 16:02 36.6 C 70 24 115/75 97 05/11/21 07:13 36.5 C 112 H 16 91/62 L 92 PG Care Time/CCT Total # of Minutes Spent Total Time Spent with Patient: Total time spent is greater than 50% in coordination of care (as documented) at patient's floor/unit and/or counseling patient: Coding Level of Care Code 14256 Subseq Hosp Care Lvl 2 Diagnoses Adrenal insufficiency E27.40 Anemia D64.9 Hypotension I95.9 Dysphagia R13.10 CKD (chronic kidney disease) stage 2, GFR 60-89 ml/min N18.2 Chronic hypoxemic respiratory failure J96.11 COPD (chronic obstructive pulmonary disease) with chronic bronchitis J44.9 History of lung cancer Z85.118 Recurrent left pleural effusion J90 Hyponatremia E87.1 Peripheral arterial disease I73.9 Bilateral carotid artery occlusion I65.23 Unstageable pressure ulcer of left heel L89.620 Bipolar disorder F31.9 Most recent bipolar episode type: most recent episode unspecified type Constipation K59.00 Right shoulder pain M25.511 (1) Bipolar disorder Most recent bipolar episode type: most recent episode unspecified type
[2021-05-12] MEDS: ATORVASTATIN 40 MG TAB PO SCH (09:06)
[2021-05-12] MEDS: ASCORBIC ACID 500 MG TAB PO SCH ×2 (09:06→20:32)
[2021-05-12] MEDS: VALPROIC ACID SOLN 250 MG/5 ML UDC PO SCH (09:06)
[2021-05-12] MEDS: CHOLECALCIFEROL 1,000 UNITS 25 MCG TAB PO SCH (09:06)
[2021-05-12] MEDS: HYDROCORTISONE 10 MG TAB PO SCH ×2 (09:06→15:59)
[2021-05-12] MEDS: buPROPion HCl 100 MG TABLET PO SCH (09:06)
[2021-05-12] MEDS: FOLIC ACID 1 MG TAB PO SCH (09:06)
[2021-05-12] MEDS: FLUTICASONE FUROATE 100MCG 14 PUFFS/INHALER INH SCH (09:13)
[2021-05-12 09:42] LABS: Hematocrit (blood only) 32.3 % (42-52); Hemoglobin 10.6 g/dL (14.0-18.0); Mean Corpuscular Hgb Conc 32.8 g/dL (32-36); Mean Corpuscular Volume 79.4 fL (80-100); Mean Platelet Volume 9.5 fL (7.4-10.4); Platelet Count 302 K/uL (130-400); RDW Coefficient of Variation 18.2 % (11.5-14.5); RDW Standard Deviation 52.7 fL (36.4-46.3); Red Blood Count 4.07 M/uL (4.7-6.1); White Blood Count 12.64 K/uL (4.8-10.8)
[2021-05-12 10:07] LABS: BUN Creatinine Ratio 25.5 (10-20); Calcium 9.4 mg/dl (8.5-10.1); Creatinine Clr Calc Pharmacy 100.6 ml/min; Est GFR (Non-African American) 102.7 ml/min
[2021-05-12] MEDS: UMECLIDINIUM/VILANTEROL 62.5/25MCG 7 PUFFS/INHALER INH SCH (10:45)
[2021-05-12] MEDS: ACETAMINOPHEN 500 MG TAB PO PRN (11:24)
--- NOTE | 2021-05-12 13:06 | XRay Report ---
XR chest 1V portable CLINICAL HISTORY: SOB; Aspiration. COMPARISON STUDY: 03/22/2021 TECHNIQUE: 1 view of the chest FINDINGS: Single frontal view of the chest demonstrates the cardiomediastinal silhouette to be within normal li mits. Compared to the previous examination, there is significant increased opacity of the left hemith orax. Chronic left pleural effusion is present as well. There is a right suprahilar infiltrate now se en. No definite evidence for aspiration pneumonitis is identified. CT of the chest could be performed for further evaluation. There is no evidence for vascular congestion. There is no acute osseous path ology. IMPRESSION: Interval worsening of left lung opacity with persistent left pleural effusion. While the findings are suspicious for pneumonia, they are not typical for aspiration. There is also a right sup rahilar infiltrate present. CT of the chest could be obtained for further evaluation. ACT 112: Negative or not required by law. Electronically signed by: Peewee Holland M.D. 05/12/2021 1:04 PM
[2021-05-12] MEDS ORDERED: PIPERACILL/TAZOBAC CONSULT ACTIVE PRN (13:09)
[2021-05-12] MEDS ORDERED: PIPERACILLIN/TAZOBACTAM 3.375 GM in DEXTROSE 5% 100 ML IV ONE (14:00)
[2021-05-12] MEDS: DOXYCYCLINE HYCLATE 100 MG in DEXTROSE 5% 100 ML IV SCH (15:54)
[2021-05-12] MEDS ORDERED: OPTIRAY 320 100ml IV ONE (17:34)
--- NOTE | 2021-05-12 18:01 | CT Scan Report ---
CT OF THE CHEST WITH IV CONTRAST CLINICAL HISTORY: Right hilar infiltrate. Short of breath. Pneumonia. History of lung carcinoma. COMPARISON STUDY: Chest CT March 17, 2021. Chest radiograph performed earlier today. TECHNIQUE: Following IV administration of 94 mL of Optiray, helical axial images of the chest were o btained. Sagittal and coronal reconstructions were viewed as well as maximal intensity projections o n an independent 3-D workstation. Automated exposure control was utilized for the study. A dose low ering technique was utilized adhering to the principles of ALARA. CT DOSE: 432.60 mGy.cm FINDINGS: A moderate to large left pleural effusion has increased in size since CT of March 17 21. Pleural thickening and enhancement is nonspecific. Extensive subpleural left lower lobe opacity i s noted with volume loss. Bilateral perihilar opacities are unchanged from earlier exams. These favor postradiation change. There is no pneumothorax. Trace right pleural effusion is present. No enlarged axillary, mediastinal or hilar lymph nodes are noted. There are prominent paraesophageal lymph nodes measure up to 8 mm short axis diameter. Size of the heart is normal. There is extensive coronary art dina calcification. There is no pericardial effusion. Mild interlobular septal thickening within the r ight lower lobe is noted. Old left-sided rib deformities are present. There are no suspicious lesions within visualized portions of the bony thorax. No thoracic aortic dissection is present. There is no central pulmonary embolus. Visualized portions of the upper abdomen are unremarkable. IMPRESSION: 1. Increase in size of a moderate to large left pleural effusion since chest CT of March 17, 2021. Left pleural thickening and enhancement is a nonspecific finding. 2. Associated extensive subpleural left lower lobe airspace opacity with volume loss. This favors ate lectasis/round atelectasis however should be assessed on subsequent exams. 3. No change in bilateral perihilar opacities which favor post radiation change. ACT 112: Negative or not required by law. Electronically signed by: Delio Head M.D. 05/12/2021 5:59 PM
--- NOTE | 2021-05-12 19:38 | Hospitalist Progress Note ---
Date of Service May 12, 2021 Assessment & Plan (1) Recurrent left pleural effusion: Plan: - Patient has not looked well today; labs show a mild leukocytosis but remains afebrile -- CXR concerning for possible PNA however CTA more suggestive of worsening pleural effusion - still not requiring supplemental O2 - Will start Zosyn and Doxycycline; MRSA swab negative and hold on MRSA coverage - Having lower pressures today and will stress dose Solu-Cortef 50 mg IV TID for now - Pulmonology consulted/signed off - will discuss with them of consideration for tap as BP may limited diuretics -- was tapped in the past - f/u as outpt with PULM especially will follow COPD treatment also (2) Adrenal insufficiency: Plan: Admitted with weakness, nausea, worsening hyponatremia, orthostatic hypotension ongoing for a long time Initial fasting AM cortisol earlier in hospital course was low normal at 5, but now repeat even lower at 3 and no use of steroids More of a chronic presentation CT abd/pel on 03/17/21 with normal adrenal glands; Brain MRI 03/18/21 normal Perhaps related to autoimmune disorder? - On 04/22, started hydrocortisone 10mg in AM and 5mg in PM-significantly improved - Will need f/u as Endocrine as outpt - ACTH level is 10 and plasma renin activity 1.93 (3) Anemia: Plan: - hgb was 7.3 on arrival -- up to 10s without intervention/no transfusion- has waxed and waned between 8-10. Most likely margin of error in the lab - Microcytic - stool for occult blood negative x 2 - Did have a W/U and Seen by established quilter fixer/oncologist-- started on Ferrous sulfate/folic acid and B12 - EGD on 04/13 - dilated esophagus due to benign appearing esophageal stenosis; gastritis with biopsy obtained - repeated endoscopy for retreatment on 04/27/21 - Pathology - chronic gastritis, mild; neg H. pylori, no metaplasia, dysplasia, or malignancy (4) Hypotension: Plan: - Initially thought secondary to Seroquel and metoprolol side effect - Improved w/ hydrocortisone, addition of midodrine and dc of home metoprolol - Pt has since been weaned off Midodrine - BPs stable largely but lower pressures today - see above (5) Dysphagia: Plan: Had complaint of feeling like food is getting stuck with swallowing on 04/06 -- Has had intermittent episodes of vomiting after taking pills throughout his hospital stay - much improved since dilation Has a h/o esophageal strictures requiring dilatation in 2017 He would not be able to withstand a barium swallow as he cannot stand up for more than a few seconds to a minute at a time Now s/p esophageal dilatation on 04/13 and 04/27 for severe restriction and doing much better with swallowing - Tolerating diet - Continue Prevacid (d/t soluble nature and issues with pill swallowing) - changed bigger pills to liquids (6) CKD (chronic kidney disease) stage 2, GFR 60-89 ml/min: Plan: - Renal function appears to be at baseline in this patient, continue to monitor periodically (7) Chronic hypoxemic respiratory failure: Plan: - chronic. No acute issues - continue O2 prn-none needed for weeks (8) COPD (chronic obstructive pulmonary disease) with chronic bronchitis: Plan: - Patient with a history of COPD, still smoking despite lung cancer diagnosis - ? reoccurrence of non-small cell lung CA on imaging - Trelegy (ICS/AC/LABA) as an outpatient - We will substitute Anoro Ellipta (AC/LABA) and Arnuity Ellipta (ICS) while inpatient - Oxygenating well on room air - Supplemental oxygen as needed to maintain SaO2 between 88 and 92%-has not needed O2 in a long time - pulmonology consulted (previously followed w/ Dr. 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 (11) Peripheral arterial disease: Plan: - Started on Plavix and Aspirin - History of aortofemoral bypass per prior notes (12) Bilateral carotid artery occlusion: Plan: - started Plavix and statin this admission (13) Unstageable pressure ulcer of left heel: Plan: - no osteo continue local care (14) Bipolar disorder: Plan: stable - continue depakote but changed to liquid as tabs large and hard to swallow - continue reduced dose of seroquel and wellbutrin (15) Constipation: Plan: - bowel protocol ordered on board; adequate bowel movements - continue senna/docusate - Miralax PRN (16) Right shoulder pain: Plan: - Voltaren gel to right shoulder Plan: Disposition: Lives alone in [facility] and is quite debilitated (prolonged course of mobility issues) Working with case management. still looking for rehab placement-no beds available, multiple referrals out - Working on transfers to see if we can get him home with family support - s eeing if able to bring home wheelchair as he thinks he might be able to transfer better with that - Sister (EJ), ex-, and friend are in agreement to home with their support and home services - PT has been working on transfers as he has not been standing for quite some time - last eval he was able to transfer to wheelchair but could not transfer back Therapy needs to be working with patient daily in order to determine if able to get him to transfer to the point of transitioning back home with home health. Per CM note on 05/05, [facility] may have a bed available in the next few days. Note from 05/07 indicates CM communicating with his [facility] coordinator for waiver services to determine if they can increase aide care so that he could go home vs. snf. CM note from 05/08 notes that he has not been accepted at any SNFs due to not being vaccinated against COVID. Will attempt to obtain proof that pt was vaccinated for COVID - states he has a card in his wallet Now with questionable PNA vs pleural effusion. Not medically stable right now until this is addressed Admission and Anticipated Discharge Date Admission Date: March 20, 2021 Subjective Patient assessed on multiple occasions today. Spoke with PT who states he was not his normal self. Patient looks very fatigued and some mild labored breathing. However when asked he had no complaints. When asking more specifically about his breathing he did admit it was a little worst today. He also had some generalized aches which seemed to improve with Tylenol. Did have a bump in WBC today. Remains afebrile. CXR concerning for fluid vs PNA development. CT more suggestive of pleural effusion. Remains on RA. Not much of an appetite today. Review of Systems Review of Systems: All systems reviewed & are unremarkable except as noted in Subjective Physical Exam Physical Exam: PHYSICAL EXAM General Appearance: pale/frail male in NAD who is A&O x 3 HEENT: Head is normocephalic/atraumatic; Hearing grossly intact Neck: Supple; Trachea midline; Neg JVD Heart: RRR with no M/G/R Lungs: CTA in all lung goldberg bilaterally but diminished at bases bilaterally but more of L side; Respirations unlabored on reassessment but mildly labored in AM Abdomen: Soft, non-tender, non-distended; Positive BS x 4 quadrants Extremities: Neg cyanosis or edema Neurological: Speech clear Psychiatric: Appropriate mood/affect Results & Data Results & Data ([facility]) Vital Signs (Past 12 Hours) Vital Signs Temp Pulse Resp BP Pulse Ox 05/12/21 16:11 36.5 C 73 16 88/58 L 93 05/12/21 07:46 36.7 C 105 H 18 90/62 L 93 PG Care Time/CCT Total # of Minutes Spent Total Time Spent with Patient: Total time spent is greater than 50% in coordination of care (as documented) at patient's floor/unit and/or counseling patient: Coding Level of Care Code 68793 Subseq Hosp Care Lvl 3 Diagnoses Adrenal insufficiency E27.40 Anemia D64.9 Hypotension I95.9 Dysphagia R13.10 CKD (chronic kidney disease) stage 2, GFR 60-89 ml/min N18.2 Chronic hypoxemic respiratory failure J96.11 COPD (chronic obstructive pulmonary disease) with chronic bronchitis J44.9 History of lung cancer Z85.118 Recurrent left pleural effusion J90 Hyponatremia E87.1 Peripheral arterial disease I73.9 Bilateral carotid artery occlusion I65.23 Unstageable pressure ulcer of left heel L89.620 Bipolar disorder F31.9 Most recent bipolar episode type: most recent episode unspecified type Constipation K59.00 Right shoulder pain M25.511 (1) Bipolar disorder Most recent bipolar episode type: most recent episode unspecified type
[2021-05-12] MEDS: PIPERACILLIN/TAZOBACTAM 3.375 GM in DEXTROSE 5% 100 ML IV SCH (20:31)
[2021-05-12] MEDS: HYDROCORTISONE SOD 50 MG in SYRINGE 0 ML IV SCH (20:31)
[2021-05-13] MEDS: DOXYCYCLINE HYCLATE 100 MG in DEXTROSE 5% 100 ML IV SCH ×2 (01:38→13:37)
[2021-05-13] MEDS: PIPERACILLIN/TAZOBACTAM 3.375 GM in DEXTROSE 5% 100 ML IV SCH ×3 (03:31→21:13)
[2021-05-13] MEDS: HYDROCORTISONE SOD 50 MG in SYRINGE 0 ML IV SCH ×3 (08:28→21:13)
[2021-05-13] MEDS: VALPROIC ACID SOLN 250 MG/5 ML UDC PO SCH (08:30)
[2021-05-13] MEDS: UMECLIDINIUM/VILANTEROL 62.5/25MCG 7 PUFFS/INHALER INH SCH (08:32)
[2021-05-13] MEDS: FLUTICASONE FUROATE 100MCG 14 PUFFS/INHALER INH SCH (08:32)
[2021-05-13] MEDS: buPROPion HCl 100 MG TABLET PO SCH (08:32)
[2021-05-13] MEDS: ATORVASTATIN 40 MG TAB PO SCH (08:32)
[2021-05-13] MEDS: CHOLECALCIFEROL 1,000 UNITS 25 MCG TAB PO SCH (08:32)
[2021-05-13] MEDS: FOLIC ACID 1 MG TAB PO SCH (08:32)
[2021-05-13] MEDS: ASCORBIC ACID 500 MG TAB PO SCH ×2 (08:32→21:13)
[2021-05-13] MEDS ORDERED: DICLOFENAC SOD 1% GEL 100 GM TUBE EXT PRN (12:23)
[2021-05-13] MEDS: FERROUS SULFATE ELIX 220MG/5ML PO SCH (16:41)
[2021-05-13] MEDS ORDERED: hydrALAZINE 10 MG TAB PO ONE (17:05)
[2021-05-13] MEDS ORDERED: hydrOXYzine HCl 10 MG TAB PO ONE (17:09)
--- NOTE | 2021-05-13 19:00 | Hospitalist Progress Note ---
Date of Service May 13, 2021 Assessment & Plan (1) Recurrent left pleural effusion: Plan: - Patient appearing better today; labs show a mild leukocytosis but remains afebrile - recheck CBC and procalcitonin in AM -- CXR concerning for possible PNA however CTA more suggestive of worsening pleural effusion - still not requiring supplemental O2 - Will start Zosyn and Doxycycline; MRSA swab negative and hold on MRSA coverage - Having lower pressures today and will stress dose Solu-Cortef 50 mg IV TID for now - likely can return to normal oral dosing tomorrow - Pulmonology consulted/signed off - discussed with pulm for consideration for tap as BP may limited diuretics and may not be that beneficial given the chronic nature of his effusion -- was tapped in the past - f/u as outpt with PULM (2) Adrenal insufficiency: Plan: Admitted with weakness, nausea, worsening hyponatremia, orthostatic hypotension ongoing for a long time Initial fasting AM cortisol earlier in hospital course was low normal at 5, but now repeat even lower at 3 and no use of steroids More of a chronic presentation CT abd/pel on 03/17/21 with normal adrenal glands; Brain MRI 03/18/21 normal Perhaps related to autoimmune disorder? - On 04/22, started hydrocortisone 10mg in AM and 5mg in PM-significantly improved; stress dosing as above -- Consider addition of Florinef - Will need f/u as Endocrine as outpt - ACTH level is 10 and plasma renin activity 1.93 (3) Anemia: Plan: - hgb was 7.3 on arrival -- up to 10s without intervention/no transfusion- has waxed and waned between 8-10. Most likely margin of error in the lab - Microcytic - stool for occult blood negative x 2 - Did have a W/U and Seen by established founder and president/oncologist-- started on Ferrous sulfate/folic acid and B12 - EGD on 04/13 - dilated esophagus due to benign appearing esophageal stenosis; gastritis with biopsy obtained - repeated endoscopy for retreatment on 04/27/21 - Pathology - chronic gastritis, mild; neg H. pylori, no metaplasia, dysplasia, or malignancy (4) Hypotension: Plan: - Initially thought secondary to Seroquel and metoprolol side effect - Improved w/ hydrocortisone, addition of midodrine and dc of home metoprolol - Pt has since been weaned off Midodrine - BPs stable largely but lower pressures today - see above (5) Dysphagia: Plan: Had complaint of feeling like food is getting stuck with swallowing on 04/06 -- Has had intermittent episodes of vomiting after taking pills throughout his hospital stay - much improved since dilation Has a h/o esophageal strictures requiring dilatation in 2017 He would not be able to withstand a barium swallow as he cannot stand up for more than a few seconds to a minute at a time Now s/p esophageal dilatation on 04/13 and 04/27 for severe restriction and doing much better with swallowing - Tolerating diet - Continue Prevacid (d/t soluble nature and issues with pill swallowing) - changed bigger pills to liquids (6) CKD (chronic kidney disease) stage 2, GFR 60-89 ml/min: Plan: - Renal function appears to be at baseline in this patient, continue to monitor periodically (7) Chronic hypoxemic respiratory failure: Plan: - chronic. No acute issues - continue O2 prn-none needed for weeks (8) COPD (chronic obstructive pulmonary disease) with chronic bronchitis: Plan: - Patient with a history of COPD, still smoking despite lung cancer diagnosis - ? reoccurrence of non-small cell lung CA on imaging vs post-radiation changes - Trelegy (ICS/AC/LABA) as an outpatient - We will substitute Anoro Ellipta (AC/LABA) and Arnuity Ellipta (ICS) while inpatient - Oxygenating well on room air - Supplemental oxygen as needed to maintain SaO2 between 88 and 92%-has not needed O2 in a long time - pulmonology consulted (previously followed w/ Dr. 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 (11) Peripheral arterial disease: Plan: - Started on Plavix and Aspirin (hold pending eval for thoracentesis) - History of aortofemoral bypass per prior notes (12) Bilateral carotid artery occlusion: Plan: - started Plavix and statin this admission - as above (13) Unstageable pressure ulcer of left heel: Plan: - no osteo continue local care (14) Bipolar disorder: Plan: stable - continue depakote but changed to liquid as tabs large and hard to swallow - continue reduced dose of seroquel and wellbutrin (15) Constipation: Plan: - bowel protocol ordered on board; adequate bowel movements - continue senna/docusate - Miralax PRN (16) Right shoulder pain: Plan: - Voltaren gel to right shoulder Plan: Disposition: Lives alone in [facility] and is quite debilitated (prolonged course of mobility issues) Working with case management. still looking for rehab placement-no beds available, multiple referrals out - Working on transfers to see if we can get him home with family support - seeing if able to bring home wheelchair as he thinks he might be able to transfer better with that - Sister (POA), ex-, and friend are in agreement to home with their support and home services - PT has been working on transfers as he has not been standing for quite some time - last eval he was able to transfer to wheelchair but could not transfer back Therapy needs to be working with patient daily in order to determine if able to get him to transfer to the point of transitioning back home with home health. Per CM note on 05/05, [facility] may have a bed available in the next few days. Note from 05/07 indicates CM communicating with his [facility] coordinator for waiver services to determine if they can increase aide care so that he could go home vs. snf. CM note from 05/08 notes that he has not been accepted at any SNFs due to not being vaccinated against COVID. Will attempt to obtain proof that pt was vaccinated for COVID - states he has a card in his wallet Now with questionable PNA vs pleural effusion. Not medically stable right now until this is addressed Admission and Anticipated Discharge Date Admission Date: March 20, 2021 Subjective Reports no complaints today. States he is feeling okay and reports breathing feels fine. However when taking deep breaths he does quickly cough seems somewhat bronchospastic. Remains on RA though. Tolerating a diet and feels that his swallowing has been remaining stable Physical Exam Physical Exam: PHYSICAL EXAM General Appearance: pale/frail male in NAD who is A&O x 3 HEENT: Head is normocephalic/atraumatic; Hearing grossly intact Neck: Supple; Trachea midline; Neg JVD Heart: RRR with no M/G/R Lungs: CTA in all lung goldberg bilaterally but diminished at bases bilaterally but more of L side; Respirations unlabored Abdomen: Soft, non-tender, non-distended; Positive BS x 4 quadrants Extremities: Neg cyanosis or edema Neurological: Speech clear Psychiatric: Appropriate mood/affect Results & Data Results & Data ([facility]) Vital Signs (Past 12 Hours) Vital Signs Temp Pulse Resp BP Pulse Ox 05/13/21 15:34 36.4 C L 90 16 98/65 L 98 05/13/21 07:24 36.4 C L 82 16 96/60 L 93 PG Care Time/CCT Total # of Minutes Spent Total Time Spent with Patient: Total time spent is greater than 50% in coordination of care (as documented) at patient's floor/unit and/or counseling patient: Coding Level of Care Code 65379 Subseq Hosp Care Lvl 3 Diagnoses Recurrent left pleural effusion J90 Adrenal insufficiency E27.40 Anemia D64.9 Hypotension I95.9 Dysphagia R13.10 CKD (chronic kidney disease) stage 2, GFR 60-89 ml/min N18.2 Chronic hypoxemic respiratory failure J96.11 COPD (chronic obstructive pulmonary disease) with chronic bronchitis J44.9 History of lung cancer Z85.118 Hyponatremia E87.1 Peripheral arterial disease I73.9 Bilateral carotid artery occlusion I65.23 Unstageable pressure ulcer of left heel L89.620 Bipolar disorder F31.9 Most recent bipolar episode type: most recent episode unspecified type Constipation K59.00 Right shoulder pain M25.511 (1) Bipolar disorder Most recent bipolar episode type: most recent episode unspecified type
[2021-05-13] MEDS: QUEtiapine FUMARATE 25 MG TABLET PO SCH (21:13)
[2021-05-13] MEDS: VALPROIC ACID SOLN 500 MG/10 ML UDC PO SCH (21:13)
[2021-05-13] MEDS: MICONAZOLE NITRATE POWDER 43 GM EXT SCH (21:13)
[2021-05-14] MEDS: DOXYCYCLINE HYCLATE 100 MG in DEXTROSE 5% 100 ML IV SCH ×2 (01:16→14:16)
[2021-05-14] MEDS: PIPERACILLIN/TAZOBACTAM 3.375 GM in DEXTROSE 5% 100 ML IV SCH ×2 (05:00→12:18)
[2021-05-14 07:38] LABS: Hematocrit (blood only) 28.6 % (42-52); Hemoglobin 9.3 g/dL (14.0-18.0); Mean Corpuscular Hemoglobin 26.3 pg (25-34); Mean Corpuscular Hgb Conc 32.5 g/dL (32-36); Mean Platelet Volume 9.2 fL (7.4-10.4); Platelet Count 265 K/uL (130-400); RDW Coefficient of Variation 18.3 % (11.5-14.5); RDW Standard Deviation 54.9 fL (36.4-46.3); Red Blood Count 3.53 M/uL (4.7-6.1); White Blood Count 10.35 K/uL (4.8-10.8)
[2021-05-14 08:01] LABS: BUN Creatinine Ratio 27.5 (10-20); Calcium 9.4 mg/dl (8.5-10.1); Creatinine Clr Calc Pharmacy 105.7 ml/min; Est GFR (African American) 121.4 ml/min; Est GFR (Non-African American) 104.8 ml/min; Potassium 3.7 mmol/L (3.5-5.1)
[2021-05-14] MEDS: ATORVASTATIN 40 MG TAB PO SCH (08:06)
[2021-05-14] MEDS: FOLIC ACID 1 MG TAB PO SCH (08:06)
[2021-05-14] MEDS: ASCORBIC ACID 500 MG TAB PO SCH ×2 (08:06→20:14)
[2021-05-14] MEDS: FERROUS SULFATE ELIX 220MG/5ML PO SCH ×2 (08:07→17:49)
[2021-05-14] MEDS: buPROPion HCl 100 MG TABLET PO SCH (08:07)
[2021-05-14] MEDS: VALPROIC ACID SOLN 250 MG/5 ML UDC PO SCH (08:07)
[2021-05-14] MEDS: LANSOPRAZOLE 30 MG SOLTAB PO SCH (08:07)
[2021-05-14] MEDS: CHOLECALCIFEROL 1,000 UNITS 25 MCG TAB PO SCH (08:08)
[2021-05-14] MEDS: HYDROCORTISONE SOD 50 MG in SYRINGE 0 ML IV SCH ×2 (08:08→14:16)
[2021-05-14] MEDS: FLUTICASONE FUROATE 100MCG 14 PUFFS/INHALER INH SCH (08:09)
[2021-05-14] MEDS: UMECLIDINIUM/VILANTEROL 62.5/25MCG 7 PUFFS/INHALER INH SCH (08:09)
[2021-05-14] MEDS: MICONAZOLE NITRATE POWDER 43 GM EXT SCH ×2 (08:10→20:14)
--- NOTE | 2021-05-14 19:04 | Hospitalist Progress Note ---
Date of Service May 14, 2021 Assessment & Plan (1) Recurrent left pleural effusion: Plan: - Patient appearing better today; mild leukocytosis resolved and remains afebrile - procalcitonin WNL -- CXR concerning for possible PNA however CTA more suggestive of worsening pleural effusion - still not requiring supplemental O2 - Stop Zosyn and will cover with Doxycycline for now; MRSA swab negative and hold on MRSA coverage - Having lower pressures yesterday and stress dosed Solu-Cortef 50 mg IV TID when concerned for infection but will convert back to his oral formulation - Pulmonology consulted/signed off - discussed with pulm for consideration for tap as BP may limited diuretics and may not be that beneficial given the chronic nature of his effusion; no indication for thoracentesis at this time given no need for supplemental O2; has required thoracentesis in the past - Incentive spirometry - F/U as outpt with PULM (2) Adrenal insufficiency: Plan: Admitted with weakness, nausea, worsening hyponatremia, orthostatic hypotension ongoing for a long time Initial fasting AM cortisol earlier in hospital course was low normal at 5, but now repeat even lower at 3 and no use of steroids More of a chronic presentation CT abd/pel on 03/17/21 with normal adrenal glands; Brain MRI 03/18/21 normal Perhaps related to autoimmune disorder? - On 04/22, started hydrocortisone 10mg in AM and 5mg in PM-significantly improved -- Consider addition of Florinef - Will need f/u as Endocrine as outpt - ACTH level is 10 and plasma renin activity 1.93 (3) Anemia: Plan: - hgb was 7.3 on arrival -- up to 10s without intervention/no transfusion- has waxed and waned between 8-10. Most likely margin of error in the lab - Microcytic - stool for occult blood negative x 2 - Did have a W/U and Seen by established hosiery pairer/oncologist-- started on Ferrous sulfate/folic acid and B12 - EGD on 04/13 - dilated esophagus due to benign appearing esophageal stenosis; gastritis with biopsy obtained - repeated endoscopy for retreatment on 04/27/21 - Pathology - chronic gastritis, mild; neg H. pylori, no metaplasia, dysplasia, or malignancy (4) Hypotension: Plan: - Initially thought secondary to Seroquel and metoprolol side effect - Improved w/ hydrocortisone, addition of midodrine and dc of home metoprolol - Pt has since been weaned off Midodrine - BPs stable largely but lower pressures today - see above (5) Dysphagia: Plan: Had complaint of feeling like food is getting stuck with swallowing on 04/06 -- Has had intermittent episodes of vomiting after taking pills throughout his hospital stay - much improved since dilation Has a h/o esophageal strictures requiring dilatation in 2017 He would not be able to withstand a barium swallow as he cannot stand up for more than a few seconds to a minute at a time Now s/p esophageal dilatation on 04/13 and 04/27 for severe restriction and doing much better with swallowing - Tolerating diet - Continue Prevacid (d/t soluble nature and issues with pill swallowing) - changed bigger pills to liquids (6) CKD (chronic kidney disease) stage 2, GFR 60-89 ml/min: Plan: - Renal function appears to be at baseline in this patient, continue to monitor periodically (7) Chronic hypoxemic respiratory failure: Plan: - chronic. No acute issues - continue O2 prn-none needed for weeks (8) COPD (chronic obstructive pulmonary disease) with chronic bronchitis: Plan: - Patient with a history of COPD, still smoking despite lung cancer diagnosis (granted has been inpatient for an extended period of time) - ? reoccurrence of non-small cell lung CA on imaging vs post-radiation changes - Trelegy (ICS/AC/LABA) as an outpatient - We will substitute Anoro Ellipta (AC/LABA) and Arnuity Ellipta (ICS) while inpatient - Oxygenating well on room air - Supplemental oxygen as needed to maintain SaO2 between 88 and 92%-has not needed O2 in a long time - pulmonology consulted (previously followed w/ Dr. 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 (11) Peripheral arterial disease: Plan: - Started on Plavix and Aspirin (hold pending eval for thoracentesis) - History of aortofemoral bypass per prior notes (12) Bilateral carotid artery occlusion: Plan: - started Plavix and statin this admission - as above (13) Unstageable pressure ulcer of left heel: Plan: - no osteo continue local care (14) Bipolar disorder: Plan: stable - continue depakote but changed to liquid as tabs large and hard to swallow - continue reduced dose of seroquel and wellbutrin (15) Constipation: Plan: - bowel protocol ordered on board; adequate bowel movements - continue senna/docusate - Miralax PRN (16) Right shoulder pain: Plan: - Voltaren gel to right shoulder Plan: Disposition: Lives alone in [facility] and is quite debilitated (prolonged course of mobility issues) Working with case management. still looking for rehab placement-no beds available, multiple referrals out - however patient really wants to go home - Working on transfers to see if we can get him home with family support - has his home wheelchair here as he thinks he might be able to transfer better with that - Sister (EJ), ex-, and friend are in agreement to home with their support and home services - PT has been working on transfers as he has not been standing for quite some time - last eval he was able to transfer to wheelchair but could not transfer back Therapy needs to be working with patient daily in order to determine if able to get him to transfer to the point of transitioning back home with home health. Note from 05/07 indicates CM communicating with his [facility] coordinator for waiver services to determine if they can increase aide care so that he could go home vs. snf. CM note from 05/08 notes that he has not been accepted at any SNFs due to not being vaccinated against COVID. Will attempt to obtain proof that pt was vaccinated for COVID - states he has a card in his wallet?? Suspect stability from respiratory side of things, pending better mobility can be medically suitable for D/C Admission and Anticipated Discharge Date Admission Date: March 20, 2021 Subjective Reports doing better today. Less tearful today but also feeling down about being in the hospital for so long. Reports that his breathing feels better. Does have a dry cough. Nursing has been working with him on incentive spirometry. Still not requiring supplemental O2. Continues to tolerate a diet however just getting tired of the same foods given the length of time here. Review of Systems Review of Systems: All systems reviewed & are unremarkable except as noted in Subjective Physical Exam Physical Exam: PHYSICAL EXAM General Appearance: pale/frail male in NAD who is A&O x 3 HEENT: Head is normocephalic/atraumatic; Hearing grossly intact Neck: Supple; Trachea midline; Neg JVD Heart: RRR with no M/G/R Lungs: CTA in all lung goldberg bilaterally but diminished at bases bilaterally but more of L side; Respirations unlabored Abdomen: Soft, non-tender, non-distended; Positive BS x 4 quadrants Extremities: Neg cyanosis or edema Neurological: Speech clear Psychiatric: Appropriate mood/affect Results & Data Results & Data ([facility]) Vital Signs (Past 12 Hours) Vital Signs Temp Pulse Resp BP Pulse Ox 05/14/21 16:06 36.7 C 80 24 127/74 95 PG Care Time/CCT Total # of Minutes Spent Total Time Spent with Patient: Total time spent is greater than 50% in coordination of care (as documented) at patient's floor/unit and/or counseling patient: Coding Level of Care Code 44939 Subseq Hosp Care Lvl 2 Diagnoses Recurrent left pleural effusion J90 Adrenal insufficiency E27.40 Anemia D64.9 Hypotension I95.9 Dysphagia R13.10 CKD (chronic kidney disease) stage 2, GFR 60-89 ml/min N18.2 Chronic hypoxemic respiratory failure J96.11 COPD (chronic obstructive pulmonary disease) with chronic bronchitis J44.9 History of lung cancer Z85.118 Hyponatremia E87.1 Peripheral arterial disease I73.9 Bilateral carotid artery occlusion I65.23 Unstageable pressure ulcer of left heel L89.620 Bipolar disorder F31.9 Most recent bipolar episode type: most recent episode unspecified type Constipation K59.00 Right shoulder pain M25.511 (1) Bipolar disorder Most recent bipolar episode type: most recent episode unspecified type
[2021-05-14] MEDS: VALPROIC ACID SOLN 500 MG/10 ML UDC PO SCH (20:14)
[2021-05-14] MEDS: QUEtiapine FUMARATE 25 MG TABLET PO SCH (20:14)
[2021-05-15] MEDS: DOXYCYCLINE HYCLATE 100 MG in DEXTROSE 5% 100 ML IV SCH ×2 (02:36→14:04)
[2021-05-15] MEDS: ASCORBIC ACID 500 MG TAB PO SCH ×2 (08:26→19:32)
[2021-05-15] MEDS: FERROUS SULFATE ELIX 220MG/5ML PO SCH ×2 (08:28→17:04)
[2021-05-15] MEDS: FOLIC ACID 1 MG TAB PO SCH (08:29)
[2021-05-15] MEDS: VALPROIC ACID SOLN 250 MG/5 ML UDC PO SCH (08:29)
[2021-05-15] MEDS: CHOLECALCIFEROL 1,000 UNITS 25 MCG TAB PO SCH (08:29)
[2021-05-15] MEDS: buPROPion HCl 100 MG TABLET PO SCH (08:29)
[2021-05-15] MEDS: ATORVASTATIN 40 MG TAB PO SCH (08:29)
[2021-05-15] MEDS: LANSOPRAZOLE 30 MG SOLTAB PO SCH (08:29)
[2021-05-15] MEDS: UMECLIDINIUM/VILANTEROL 62.5/25MCG 7 PUFFS/INHALER INH SCH (08:30)
[2021-05-15] MEDS: FLUTICASONE FUROATE 100MCG 14 PUFFS/INHALER INH SCH (08:30)
[2021-05-15] MEDS: MICONAZOLE NITRATE POWDER 43 GM EXT SCH ×2 (08:31→19:32)
[2021-05-15] MEDS: HYDROCORTISONE 10 MG TAB PO SCH ×2 (08:36→15:28)
--- NOTE | 2021-05-15 19:29 | Hospitalist Progress Note ---
Date of Service May 15, 2021 Assessment & Plan (1) Recurrent left pleural effusion: Plan: - Patient appearing better today; mild leukocytosis resolved and remains afebrile - procalcitonin WNL -- CXR concerning for possible PNA however CTA more suggestive of worsening pleural effusion - still not requiring supplemental O2 -- Ordered due to patient looking unwell and was a drastic change from how he has been - Stop Zosyn and will cover with Doxycycline x 7 days however may not be necessary as maybe more fluid related or developing COPD exacerbation; MRSA swab negative and hold on MRSA coverage - Pulmonology consulted/signed off - discussed with pulm for consideration for tap as BP may limited diuretics and may not be that beneficial given the chronic nature of his effusion; no indication for thoracentesis at this time given no need for supplemental O2; has required thoracentesis in the past - Incentive spirometry - F/U as outpt with PULM (2) Adrenal insufficiency: Plan: Admitted with weakness, nausea, worsening hyponatremia, orthostatic hypotension ongoing for a long time Initial fasting AM cortisol earlier in hospital course was low normal at 5, but now repeat even lower at 3 and no use of steroids More of a chronic presentation CT abd/pel on 03/17/21 with normal adrenal glands; Brain MRI 03/18/21 normal Perhaps related to autoimmune disorder? - On 04/22, started hydrocortisone 10mg in AM and 5mg in PM-significantly improved -- Consider addition of Florinef - Will need f/u as Endocrine as outpt - ACTH level is 10 and plasma renin activity 1.93 (3) Anemia: Plan: - hgb was 7.3 on arrival -- up to 10s without intervention/no transfusion- has waxed and waned between 8-10. Most likely margin of error in the lab - Microcytic - stool for occult blood negative x 2 - Did have a W/U and Seen by established casing wringer operator/oncologist-- started on Ferrous sulfate/folic acid and B12 - EGD on 04/13 - dilated esophagus due to benign appearing esophageal stenosis; gastritis with biopsy obtained - repeated endoscopy for retreatment on 04/27/21 - Pathology - chronic gastritis, mild; neg H. pylori, no metaplasia, dysplasia, or malignancy (4) Hypotension: Plan: - Initially thought secondary to Seroquel and metoprolol side effect - Improved w/ hydrocortisone, addition of midodrine and dc of home metoprolol - Pt has since been weaned off Midodrine - BPs stable largely but lower pressures today - see above (5) Dysphagia: Plan: Had complaint of feeling like food is getting stuck with swallowing on 04/06 -- Has had intermittent episodes of vomiting after taking pills throughout his hospital stay - much improved since dilation Has a h/o esophageal strictures requiring dilatation in 2017 He would not be able to withstand a barium swallow as he cannot stand up for more than a few seconds to a minute at a time Now s/p esophageal dilatation on 04/13 and 04/27 for severe restriction and doing much better with swallowing - Tolerating diet - Continue Prevacid (d/t soluble nature and issues with pill swallowing) - changed bigger pills to liquids (6) CKD (chronic kidney disease) stage 2, GFR 60-89 ml/min: Plan: - Renal function appears to be at baseline in this patient, continue to monitor periodically (7) Chronic hypoxemic respiratory failure: Plan: - chronic. No acute issues - continue O2 prn-none needed for weeks (8) COPD (chronic obstructive pulmonary disease) with chronic bronchitis: Plan: - Patient with a history of COPD, still smoking despite lung cancer diagnosis (granted has been inpatient for an extended period of time) - ? reoccurrence of non-small cell lung CA on imaging vs post-radiation changes - Trelegy (ICS/AC/LABA) as an outpatient - We will substitute Anoro Ellipta (AC/LABA) and Arnuity Ellipta (ICS) while inpatient - Oxygenating well on room air - Supplemental oxygen as needed to maintain SaO2 between 88 and 92%-has not needed O2 in a long time - pulmonology consulted (previously followed w/ Dr. 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 (11) Peripheral arterial disease: Plan: - Started on Plavix and Aspirin (hold pending eval for thoracentesis) - if they ultimately do not want to do this can resume - History of aortofemoral bypass per prior notes (12) Bilateral carotid artery occlusion: Plan: - started Plavix and statin this admission - as above (13) Unstageable pressure ulcer of left heel: Plan: - no osteo continue local care (14) Bipolar disorder: Plan: stable - continue depakote but changed to liquid as tabs large and hard to swallow - continue reduced dose of seroquel and wellbutrin (15) Constipation: Plan: - bowel protocol ordered on board; adequate bowel movements - continue senna/docusate - Miralax PRN (16) Right shoulder pain: Plan: - Voltaren gel to right shoulder Plan: Disposition: Lives alone in [facility] and is quite debilitated (prolonged course of mobility issues) Working with case management. still looking for rehab placement-no beds available, multiple referrals out - however patient really wants to go home and no longer interested in rehab - Working on transfers to see if we can get him home with family support - has his home wheelchair here as he thinks he might be able to transfer better with that - Sister (POA), ex-, and friend are in agreement to home with their support and home services - PT has been working on transfers as he has not been standing for quite some time - last eval he was able to transfer to wheelchair but could not transfer back Therapy needs to be working with patient daily in order to determine if able to get him to transfer to the point of transitioning back home with home health. Note from 05/07 indicates CM communicating with his [facility] coordinator for waiver services to determine if they can increase aide care so that he could go home vs. snf. CM note from 05/08 notes that he has not been accepted at any SNFs due to not being vaccinated against COVID Given length of time inpatient, be mindful of medications timing out and sara pping off AUG Admission and Anticipated Discharge Date Admission Date: March 20, 2021 Subjective Reports doing well today. States his breathing feels better and not feeling short of breath. Feels he is coughing less. He is wheezy and asked if he wanted a nebulizer but he stated he didn't think he needed it. Physical Exam Physical Exam: PHYSICAL EXAM General Appearance: pale/frail male in NAD who is A&O x 3 HEENT: Head is normocephalic/atraumatic; Hearing grossly intact Neck: Supple; Trachea midline; Neg JVD Heart: RRR with no M/G/R Lungs: Scattered wheezes but seems to improve some with deeper inspiration; Respirations unlabored Abdomen: Soft, non-tender, non-distended; Positive BS x 4 quadrants Extremities: Neg cyanosis or edema Neurological: Speech clear Psychiatric: Appropriate mood/affect Results & Data Results & Data ([facility]) Vital Signs (Past 12 Hours) Vital Signs Temp Pulse Resp BP Pulse Ox 05/15/21 15:30 36.4 C L 83 17 105/69 97 PG Care Time/CCT Total # of Minutes Spent Total Time Spent with Patient: Total time spent is greater than 50% in coordination of care (as documented) at patient's floor/unit and/or counseling patient: Coding Level of Care Code 75896 Subseq Hosp Care Lvl 2 Diagnoses Recurrent left pleural effusion J90 Adrenal insufficiency E27.40 Anemia D64.9 Hypotension I95.9 Dysphagia R13.10 CKD (chronic kidney disease) stage 2, GFR 60-89 ml/min N18.2 Chronic hypoxemic respiratory failure J96.11 COPD (chronic obstructive pulmonary disease) with chronic bronchitis J44.9 History of lung cancer Z85.118 Hyponatremia E87.1 Peripheral arterial disease I73.9 Bilateral carotid artery occlusion I65.23 Unstageable pressure ulcer of left heel L89.620 Bipolar disorder F31.9 Most recent bipolar episode type: most recent episode unspecified type Constipation K59.00 Right shoulder pain M25.511 (1) Bipolar disorder Most recent bipolar episode type: most recent episode unspecified type
[2021-05-15] MEDS: VALPROIC ACID SOLN 500 MG/10 ML UDC PO SCH (19:32)
[2021-05-15] MEDS: QUEtiapine FUMARATE 25 MG TABLET PO SCH (19:32)
[2021-05-16] MEDS: DOXYCYCLINE HYCLATE 100 MG CAP PO SCH ×2 (08:05→20:14)
[2021-05-16] MEDS: ASCORBIC ACID 500 MG TAB PO SCH ×2 (08:05→20:15)
[2021-05-16] MEDS: CHOLECALCIFEROL 1,000 UNITS 25 MCG TAB PO SCH (08:05)
[2021-05-16] MEDS: LANSOPRAZOLE 30 MG SOLTAB PO SCH (08:06)
[2021-05-16] MEDS: FOLIC ACID 1 MG TAB PO SCH (08:06)
[2021-05-16] MEDS: buPROPion HCl 100 MG TABLET PO SCH (08:06)
[2021-05-16] MEDS: FLUTICASONE FUROATE 100MCG 14 PUFFS/INHALER INH SCH (08:07)
[2021-05-16] MEDS: UMECLIDINIUM/VILANTEROL 62.5/25MCG 7 PUFFS/INHALER INH SCH (08:08)
[2021-05-16] MEDS: HYDROCORTISONE 10 MG TAB PO SCH ×2 (08:08→16:23)
[2021-05-16] MEDS: MICONAZOLE NITRATE POWDER 43 GM EXT SCH ×2 (08:09→20:15)
[2021-05-16] MEDS: VALPROIC ACID SOLN 250 MG/5 ML UDC PO SCH (08:09)
[2021-05-16] MEDS: FERROUS SULFATE ELIX 220MG/5ML PO SCH ×2 (08:10→17:07)
[2021-05-16] MEDS: ATORVASTATIN 40 MG TAB PO SCH (08:12)
--- NOTE | 2021-05-16 09:08 | Hospitalist Progress Note ---
Date of Service May 16, 2021 Assessment & Plan (1) Recurrent left pleural effusion: Plan: - Patient remains afebrile - procalcitonin WNL -- CXR and cough concerning for possible PNA however CTA more suggestive of worsening pleural effusion - still not requiring supplemental O2 -- Ordered due to patient looking unwell and was a drastic change from how he has been - Stopped Zosyn and will cover with Doxycycline x 7 days - Pulmonology consulted/signed off - discussed with pulm for consideration for tap as BP may limited diuretics and may not be that beneficial given the chronic nature of his effusion; no indication for thoracentesis at this time given no need for supplemental O2; has required thoracentesis in the past (2) Adrenal insufficiency: Plan: Admitted with weakness, nausea, worsening hyponatremia, orthostatic hypotension ongoing for a long time Initial fasting AM cortisol earlier in hospital course was low normal at 5, but now repeat even lower at 3 and no use of steroids More of a chronic presentation CT abd/pel on 03/17/21 with normal adrenal glands; Brain MRI 03/18/21 normal Perhaps related to autoimmune disorder? - On 04/22, started hydrocortisone 10mg in AM and 5mg in PM-significantly improved -- Consider addition of Florinef - Will need f/u as Endocrine as outpt - ACTH level is 10 and plasma renin activity 1.93 (3) Anemia: Plan: - hgb was 7.3 on arrival -- up to 10s without intervention/no transfusion- has waxed and waned between 8-10. Most likely margin of error in the lab - Microcytic - stool for occult blood negative x 2 - Did have a W/U and Seen by established registration clerk/oncologist-- started on Ferrous sulfate/folic acid and B12 - EGD on 04/13 - dilated esophagus due to benign appearing esophageal stenosis; gastritis with biopsy obtained - repeated endoscopy for retreatment on 04/27/21 - Pathology - chronic gastritis, mild; neg H. pylori, no metaplasia, dysplasia, or malignancy (4) Hypotension: Plan: - Initially thought secondary to Seroquel and metoprolol side effect - Improved w/ hydrocortisone, addition of midodrine and dc of home metoprolol - Pt has since been weaned off Midodrine - BPs stable largely but lower pressures today - see above (5) Dysphagia: Plan: Had complaint of feeling like food is getting stuck with swallowing on 04/06 -- Has had intermittent episodes of vomiting after taking pills throughout his hospital stay - much improved since dilation Has a h/o esophageal strictures requiring dilatation in 2017 He would not be able to withstand a barium swallow as he cannot stand up for more than a few seconds to a minute at a time Now s/p esophageal dilatation on 04/13 and 04/27 for severe restriction and doing much better with swallowing - Tolerating diet - Continue Prevacid (d/t soluble nature and issues with pill swallowing) - changed bigger pills to liquids (6) CKD (chronic kidney disease) stage 2, GFR 60-89 ml/min: Plan: - Renal function appears to be at baseline in this patient, continue to monitor periodically (7) Chronic hypoxemic respiratory failure: Plan: - chronic. No acute issues - continue O2 prn-none needed for weeks (8) COPD (chronic obstructive pulmonary disease) with chronic bronchitis: Plan: - Patient with a history of COPD, still smoking despite lung cancer diagnosis (granted has been inpatient for an extended period of time) - ? reoccurrence of non-small cell lung CA on imaging vs post-radiation changes - Trelegy (ICS/AC/LABA) as an outpatient - We will substitute Anoro Ellipta (AC/LABA) and Arnuity Ellipta (ICS) while inpatient - Oxygenating well on room air - Supplemental oxygen as needed to maintain SaO2 between 88 and 92%-has not needed O2 in a long time - pulmonology consulted (previously followed w/ Dr. 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 (11) Peripheral arterial disease: Plan: - Started on Plavix and Aspirin (hold pending eval for thoracentesis) - if they ultimately do not want to do this can resume - History of aortofemoral bypass per prior notes (12) Bilateral carotid artery occlusion: Plan: - started Plavix and statin this admission - as above (13) Unstageable pressure ulcer of left heel: Plan: - no osteo continue local care (14) Bipolar disorder: Plan: stable - continue depakote but changed to liquid as tabs large and hard to swallow - continue reduced dose of seroquel and wellbutrin (15) Constipation: Plan: - bowel protocol ordered on board; adequate bowel movements - continue senna/docusate - Miralax PRN (16) Right shoulder pain: Plan: - Voltaren gel to right shoulder Plan: Disposition: Lives alone in [facility] and is quite debilitated (prolonged course of mobility issues) Working with case management. still looking for rehab placement-no beds available, multiple referrals out - however patient really wants to go home and no longer interested in rehab - Working on transfers to see if we can get him home with family support - has his home wheelchair here as he thinks he might be able to transfer better with that - Sister (EJ), ex-, and friend are in agreement to home with their support and home services - PT has been working on transfers as he has not been standing for quite some time - last eval he was able to transfer to wheelchair but could not transfer back Therapy needs to be working with patient daily in order to determine if able to get him to transfer to the point of transitioning back home with home health. Note from 05/07 indicates CM communicating with his [facility] coordinator for waiver services to determine if they can increase aide care so that he could go home vs. snf. CM note from 05/08 notes that he has not been accepted at any SNFs due to not being vaccinated against COVID Given length of time inpatient, be mindful of medications timing out and dropping off MAR Admission and Anticipated Discharge Date Admission Date: March 20, 2021 Subjective Reports doing well today. States his breathing feels better and not feeling short of breath. Feels he is coughing less. He is coughing during the visit Review of Systems Review of Systems: Mild distress and fatigue no headache, no visual changes no speech or swallowing issues no chest pain, pressure or palpitations no shortness of breath, coughing with deep inspiration occasionally productive no abdominal pain, nausea or vomiting, diarrhea or constipation no dysuria, hematuria or frequency no focal joint pain or swelling no back pain, CVA tenderness or radicular pain no bruising, bleeding or rashes Weakness of his lower extremities predates his hospital stay he does have weakness of his arms which prevent him assisting in transitioning no complaints of anxiety or depression.. Physical Exam Physical Exam: The patient appeared well nourished and normally developed. Vital signs as documented. Head exam is normocephalic atraumatic Neck is without JVD, thyromegaly, or carotid bruits. Lungs are clear coarse at the bases but improved with coughing Cardiac exam, Rhythm is regular.. No murmurs, rubs or gallops. Abdominal exam reveals normal bowel sounds, soft non tender, no masses Extremities are nonedematous and both pedal pulses are present Neurologic exam is alert and oriented, no focal loss of strength or sensation Skin is without bruises or rashes Psychologically is without concerns for anxiety or depression.. Results & Data Results & Data ([facility]) Vital Signs (Past 12 Hours) Vital Signs Temp Pulse Resp BP BP Pulse Ox 05/16/21 07:52 97.9 F 82 16 100/68 97 05/15/21 22:01 98.4 F 84 16 97/61 L 98 PG Care Time/CCT Total # of Minutes Spent Total Time Spent with Patient: Total time spent is greater than 50% in coordination of care (as documented) at patient's floor/unit and/or counseling patient: Coding Level of Care Code 99829 Subseq Hosp Care Lvl 2 Diagnoses Recurrent left pleural effusion J90 Adrenal insufficiency E27.40 Anemia D64.9 Hypotension I95.9 Dysphagia R13.10 CKD (chronic kidney disease) stage 2, GFR 60-89 ml/min N18.2 Chronic hypoxemic respiratory failure J96.11 COPD (chronic obstructive pulmonary disease) with chronic bronchitis J44.9 History of lung cancer Z85.118 Hyponatremia E87.1 Peripheral arterial disease I73.9 Bilateral carotid artery occlusion I65.23 Unstageable pressure ulcer of left heel L89.620 Bipolar disorder F31.9 Most recent bipolar episode type: most recent episode unspecified type Constipation K59.00 Right shoulder pain M25.511 (1) Bipolar disorder Most recent bipolar episode type: most recent episode unspecified type
[2021-05-16] MEDS: VALPROIC ACID SOLN 500 MG/10 ML UDC PO SCH (20:15)
[2021-05-16] MEDS: QUEtiapine FUMARATE 25 MG TABLET PO SCH (20:15)
[2021-05-17] MEDS: FLUTICASONE FUROATE 100MCG 14 PUFFS/INHALER INH SCH (08:05)
[2021-05-17] MEDS: FERROUS SULFATE ELIX 220MG/5ML PO SCH ×2 (08:05→16:26)
[2021-05-17] MEDS: UMECLIDINIUM/VILANTEROL 62.5/25MCG 7 PUFFS/INHALER INH SCH (08:05)
[2021-05-17] MEDS: MICONAZOLE NITRATE POWDER 43 GM EXT SCH ×2 (08:05→20:33)
--- NOTE | 2021-05-17 08:05 | Hospitalist Progress Note ---
Date of Service May 17, 2021 Assessment & Plan (1) Recurrent left pleural effusion: Plan: - Patient remains afebrile - procalcitonin WNL --previous CXR and cough concerning for possible PNA however CTA more suggestive of worsening pleural effusion - still not requiring supplemental O2 --since no defined pneumonia put on Doxycycline x 7 days, still symptomatic will repeat CXR in am 05/18/21 - Pulmonology consulted/signed off - discussed with pulm for consideration for tap as BP may limited diuretics and may not be that beneficial given the chronic nature of his effusion; no indication for thoracentesis per pulmonary med as no need for supplemental O2; has required thoracentesis in the past (2) Adrenal insufficiency: Plan: Admitted with weakness, nausea, worsening hyponatremia, orthostatic hypotension ongoing for a long time Initial fasting AM cortisol earlier in hospital course was low normal at 5, but now repeat even lower at 3 and no use of steroids More of a chronic presentation CT abd/pel on 03/17/21 with normal adrenal glands; Brain MRI 03/18/21 normal Perhaps related to autoimmune disorder? - On 04/22, started hydrocortisone 10mg in AM and 5mg in PM-significantly improved - Will need f/u as Endocrine as outpt - ACTH level is 10 and plasma renin activity 1.93 (3) Anemia: Plan: - hgb was 7.3 on arrival -- up to 10s without intervention/no transfusion- has waxed and waned between 8-10. Most likely margin of error in the lab - Microcytic - stool for occult blood negative x 2 - Did have a W/U and Seen by established cob sawyer/oncologist-- started on Ferrous sulfate/folic acid and B12 - EGD on 04/13 - dilated esophagus due to benign appearing esophageal stenosis; gastritis with biopsy obtained - repeated endoscopy for retreatment on 04/27/21 - Pathology - chronic gastritis, mild; neg H. pylori, no metaplasia, dysplasia, or malignancy (4) Hypotension: Plan: - Initially thought secondary to Seroquel and metoprolol side effect - Improved w/ hydrocortisone, and dc of home metoprolol - Pt has since been weaned off Midodrine - BPs stable (5) Dysphagia: Plan: Had complaint of feeling like food is getting stuck with swallowing on 04/06 -- Has had intermittent episodes of vomiting after taking pills throughout his hospital stay - much improved since dilation Has a h/o esophageal strictures requiring dilatation in 2017 He would not be able to withstand a barium swallow as he cannot stand up for more than a few seconds to a minute at a time Now s/p esophageal dilatation on 04/13 and 04/27 for severe restriction and doing much better with swallowing - Tolerating diet - Continue Prevacid (d/t soluble nature and issues with pill swallowing) - changed bigger pills to liquids (6) CKD (chronic kidney disease) stage 2, GFR 60-89 ml/min: Plan: - Renal function appears to be at baseline in this patient, continue to monitor periodically (7) Chronic hypoxemic respiratory failure: Plan: - chronic. No acute issues - continue O2 prn-none needed for weeks (8) COPD (chronic obstructive pulmonary disease) with chronic bronchitis: Plan: - Patient with a history of COPD, still smoking despite lung cancer diagnosis (granted has been inpatient for an extended period of time) - ? reoccurrence of non-small cell lung CA on imaging vs post-radiation changes - Trelegy (ICS/AC/LABA) as an outpatient - We will substitute Anoro Ellipta (AC/LABA) and Arnuity Ellipta (ICS) while inpatient - Oxygenating well on room air - Supplemental oxygen as needed to maintain SaO2 between 88 and 92%-has not needed O2 in a long time - pulmonology consulted (previously followed w/ Dr. 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 (11) Peripheral arterial disease: Plan: - Started on Plavix and Aspirin (hold pending eval for thoracentesis) - if they ultimately do not want to do this can resume - History of aortofemoral bypass per prior notes (12) Bilateral carotid artery occlusion: Plan: - started Plavix and statin this admission - as above (13) Unstageable pressure ulcer of left heel: Plan: - no osteo continue local care (14) Bipolar disorder: Plan: stable - continue depakote but changed to liquid as tabs large and hard to swallow - continue reduced dose of seroquel and wellbutrin (15) Constipation: Plan: - bowel protocol ordered on board; adequate bowel movements - continue senna/docusate - Miralax PRN (16) Right shoulder pain: Plan: - Voltaren gel to right shoulder Plan: Disposition: Lives alone in [facility] and is quite debilitated (prolonged course of mobility issues) Working with case management. still looking for rehab placement-no beds available, multiple referrals out - however patient really wants to go home and no longer interested in rehab - Working on transfers to see if we can get him home with family support - has his home wheelchair here as he thinks he might be able to transfer better with that - Sister (EJ), ex-, and friend are in agreement to home with their support and home services - PT has been working on transfers as he has not been standing for quite some time - last eval he was able to transfer to wheelchair but could not transfer back Therapy needs to be working with patient daily in order to determine if able to get him to transfer to the point of transitioning back home with home health. Note from 05/07 indicates CM communicating with [facility] for waiver services to determine if they can increase aide care so that he could go home vs. snf. CM note from 05/08 notes that he has not been accepted at any SNFs due to not being vaccinated against COVID Given length of time inpatient, be mindful of medications timing out and dropping off MAR Admission and Anticipated Discharge Date Admission Date: March 20, 2021 Subjective Reports doing well today.Still coughing and fairly short of breath. Feels he is coughing less. But He seems to be coughing more during my visit, non productive at this time Review of Systems Review of Systems: Mild distress and fatigue no headache, no visual changes no speech or swallowing issues no chest pain, pressure or palpitations seems to have baseline shortness of breath, coughing with deep inspiration non productive no abdominal pain, nausea or vomiting, diarrhea or constipation no dysuria, hematuria or frequency no focal joint pain or swelling no back pain, CVA tenderness or radicular pain no bruising, bleeding or rashes Weakness of his lower extremities predates his hospital stay he does have weakness of his arms which prevent him assisting in transitioning no complaints of anxiety or depression.. Physical Exam Physical Exam: The patient appeared well nourished and normally developed. Vital signs as documented. Head exam is normocephalic atraumatic Neck is without JVD, thyromegaly, or carotid bruits. Lungs are clear coarse at the bases but improved with coughing, absent breathsounds at the left base Cardiac exam, Rhythm is regular.. No murmurs, rubs or gallops. Abdominal exam reveals normal bowel sounds, soft non tender, no masses Extremities are nonedematous and both pedal pulses are present Neurologic exam is alert and oriented, no focal loss of strength or sensation Skin is without bruises or rashes Psychologically is without concerns for anxiety or depression.. Results & Data Results & Data ([facility]) Vital Signs (Past 12 Hours) Vital Signs Temp Pulse Resp BP BP Pulse Ox 05/17/21 07:31 98.4 F 85 16 102/65 97 05/16/21 22:45 99.1 F 91 H 16 118/76 96 PG Care Time/CCT Total # of Minutes Spent Total Time Spent with Patient: Total time spent is greater than 50% in coordination of care (as documented) at patient's floor/unit and/or counseling patient: Coding Level of Care Code 84066 Subseq Hosp Care Lvl 2 Diagnoses Recurrent left pleural effusion J90 Adrenal insufficiency E27.40 Anemia D64.9 Hypotension I95.9 Dysphagia R13.10 CKD (chronic kidney disease) stage 2, GFR 60-89 ml/min N18.2 Chronic hypoxemic respiratory failure J96.11 COPD (chronic obstructive pulmonary disease) with chronic bronchitis J44.9 History of lung cancer Z85.118 Hyponatremia E87.1 Peripheral arterial disease I73.9 Bilateral carotid artery occlusion I65.23 Unstageable pressure ulcer of left heel L89.620 Bipolar disorder F31.9 Most recent bipolar episode type: most recent episode unspecified type Constipation K59.00 Right shoulder pain M25.511 (1) Bipolar disorder Most recent bipolar episode type: most recent episode unspecified type
[2021-05-17] MEDS: DOXYCYCLINE HYCLATE 100 MG CAP PO SCH ×2 (08:06→20:33)
[2021-05-17] MEDS: ASCORBIC ACID 500 MG TAB PO SCH ×2 (08:06→20:33)
[2021-05-17] MEDS: ATORVASTATIN 40 MG TAB PO SCH (08:06)
[2021-05-17] MEDS: CHOLECALCIFEROL 1,000 UNITS 25 MCG TAB PO SCH (08:06)
[2021-05-17] MEDS: FOLIC ACID 1 MG TAB PO SCH (08:06)
[2021-05-17] MEDS: buPROPion HCl 100 MG TABLET PO SCH (08:06)
[2021-05-17] MEDS: LANSOPRAZOLE 30 MG SOLTAB PO SCH (08:07)
[2021-05-17] MEDS: VALPROIC ACID SOLN 250 MG/5 ML UDC PO SCH (08:07)
[2021-05-17] MEDS: HYDROCORTISONE 10 MG TAB PO SCH ×2 (08:07→15:24)
[2021-05-17] MEDS: VALPROIC ACID SOLN 500 MG/10 ML UDC PO SCH (20:34)
[2021-05-17] MEDS: QUEtiapine FUMARATE 25 MG TABLET PO SCH (20:34)
[2021-05-18] MEDS: CHOLECALCIFEROL 1,000 UNITS 25 MCG TAB PO SCH (08:49)
[2021-05-18] MEDS: ATORVASTATIN 40 MG TAB PO SCH (08:49)
[2021-05-18] MEDS: buPROPion HCl 100 MG TABLET PO SCH (08:49)
[2021-05-18] MEDS: HYDROCORTISONE 10 MG TAB PO SCH ×2 (08:49→15:50)
[2021-05-18] MEDS: DOXYCYCLINE HYCLATE 100 MG CAP PO SCH ×2 (08:49→21:43)
[2021-05-18] MEDS: FOLIC ACID 1 MG TAB PO SCH (08:49)
[2021-05-18] MEDS: UMECLIDINIUM/VILANTEROL 62.5/25MCG 7 PUFFS/INHALER INH SCH (08:49)
[2021-05-18] MEDS: ASCORBIC ACID 500 MG TAB PO SCH ×2 (08:49→21:43)
[2021-05-18] MEDS: LANSOPRAZOLE 30 MG SOLTAB PO SCH (08:49)
[2021-05-18] MEDS: FERROUS SULFATE ELIX 220MG/5ML PO SCH ×2 (08:50→15:51)
[2021-05-18] MEDS: FLUTICASONE FUROATE 100MCG 14 PUFFS/INHALER INH SCH (08:50)
[2021-05-18] MEDS: MICONAZOLE NITRATE POWDER 43 GM EXT SCH ×2 (08:51→21:47)
[2021-05-18] MEDS: VALPROIC ACID SOLN 250 MG/5 ML UDC PO SCH (08:51)
--- NOTE | 2021-05-18 09:05 | XRay Report ---
XR chest 1V portable HISTORY: eval for progression of effusion COMPARISON: Chest 05/12/2021. FINDINGS: No pneumothorax. Moderate left pleural effusion is again noted. This is similar to the prio r study. The heart remains borderline enlarged. There is perihilar interstitial/vascular thickening s uggestive of mild congestive change. No significant right pleural effusion. No rib fractures. Bilater al perihilar airspace opacities persist. Left lower lobe density is also unchanged. IMPRESSION: No significant change compared to the prior study. Perihilar airspace opacities and a moderate left p leural effusion persists. ACT 112: Negative or not required by law. Electronically signed by: Patricio Burger M.D. 05/18/2021 9:03 AM
--- NOTE | 2021-05-18 09:25 | Hospitalist Progress Note ---
Date of Service May 18, 2021 Assessment & Plan (1) Adrenal insufficiency: Plan: Admitted with weakness, nausea, worsening hyponatremia, orthostatic hypotension ongoing for a long time Initial fasting AM cortisol earlier in hospital course was low normal at 5, but now repeat even lower at 3 and no use of steroids More of a chronic presentation CT abd/pel on 03/17/21 with normal adrenal glands; Brain MRI 03/18/21 normal Perhaps related to autoimmune disorder? On 04/22, started hydrocortisone 10mg in AM and 5mg in PM-significantly improved - Will need f/u as Endocrine as outpt - ACTH level is 10 and plasma renin activity 1.93 (2) Recurrent left pleural effusion: Plan: Patient remains afebrile - procalcitonin WNL --previous CXR and cough concerning for possible PNA however CTA more s uggestive of worsening pleural effusion - still not requiring supplemental O2 --since no defined pneumonia put on Doxycycline x 7 days, to be completed 05/23 Repeat CXR No significant change compared to the prior study. Perihilar airspace opacities and a moderate left pleural effusion persists. 99% on RA and no respiratory distress. Lungs sound improved on examination based on previous documentation. Continue incentive spirometer Pulmonology consulted/signed off - discussed with pulm for consideration for tap as BP may limited diuretics and may not be that beneficial given the chronic nature of his effusion; no indication for thoracentesis per pulmonary med as no need for supplemental O2; has required thoracentesis in the past (3) Anemia: Plan: - hgb was 7.3 on arrival -- up to 10s without intervention/no transfusion- has waxed and waned between 8-10. Most likely margin of error in the lab - Microcytic - stool for occult blood negative x 2 - Did have a W/U and Seen by established office support assistant/oncologist-- started on Ferrous sulfate/folic acid - EGD on 04/13 - dilated esophagus due to benign appearing esophageal stenosis; gastritis with biopsy obtained - repeated endoscopy for retreatment on 04/27/21 - Pathology - chronic gastritis, mild; neg H. pylori, no metaplasia, dysplasia, or malignancy (4) Hypotension: Plan: - Initially thought secondary to Seroquel and metoprolol side effect - Improved w/ hydrocortisone, and dc of home metoprolol - Pt has since been weaned off Midodrine - BPs stable , currently 131/76 (5) Dysphagia: Plan: Had complaint of feeling like food is getting stuck with swallowing on 04/06 -- Has had intermittent episodes of vomiting after taking pills throughout his hospital stay - much improved since dilation Has a h/o esophageal strictures requiring dilatation in 2017 He would not be able to withstand a barium swallow as he cannot stand up for more than a few seconds to a minute at a time Now s/p esophageal dilatation on 04/13 and 04/27 for severe restriction and doing much better with swallowing - Tolerating diet - Continue Prevacid (d/t soluble nature and issues with pill swallowing) - changed bigger pills to liquids (6) CKD (chronic kidney disease) stage 2, GFR 60-89 ml/min: Plan: - Renal function appears to be at baseline in this patient, continue to monitor periodically (7) Chronic hypoxemic respiratory failure: Plan: - chronic. No acute issues - continue O2 prn-none needed for weeks (8) COPD (chronic obstructive pulmonary disease) with chronic bronchitis: Plan: - Patient with a history of COPD, still smoking despite lung cancer diagnosis (granted has been inpatient for an extended period of time) - ? reoccurrence of non-small cell lung CA on imaging vs post-radiation changes - Trelegy (ICS/AC/LABA) as an outpatient -->substituted Anoro Ellipta (AC/LABA) and Arnuity Ellipta (ICS) while inpatient - Oxygenating well on room air - Supplemental oxygen as needed to maintain SaO2 between 88 and 92% -has not needed O2 in a long time - pulmonology consulted (previously followed w/ Dr. 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 (11) Peripheral arterial disease: Plan: - Started on Plavix and STATIN (hold pending eval for thoracentesis) - if they ultimately do not want to do this can resume --> RESUMED PLAVIX 05/18 - History of aortofemoral bypass per prior notes (12) Bilateral carotid artery occlusion: Plan: - started Plavix and statin this admission - as above, resumed plavix 05/18 (13) Unstageable pressure ulcer of left heel: Plan: - no osteo continue local care (14) Bipolar disorder: Plan: stable - continue depakote but changed to liquid as tabs large and hard to swallow - continue reduced dose of seroquel and wellbutrin (15) Constipation: Plan: - bowel protocol ordered on board; adequate bowel movements - continue senna/docusate - Miralax PRN (16) Right shoulder pain: Plan: - Voltaren gel to right shoulder Plan: Disposition: Lives alone in [facility] and is quite debilitated (prolonged course of mobility issues) Working with case management. still looking for rehab placement-no beds available, multiple referrals out - however patient really wants to go home and no longer interested in rehab - Working on transfers to see if we can get him home with family support - has his home wheelchair here as he thinks he might be able to transfer better with that - Sister (POA), ex-, and friend are in agreement to home with their support and home services - PT has been working on transfers as he has not been standing for quite some time - last eval he was able to transfer to wheelchair but could not transfer back Therapy needs to be working with patient daily in order to determine if able to get him to transfer to the point of transitioning back home with home health. Note from 05/07 indicates CM communicating with his [facility] coordinator for waiver services to determine if they can increase aide care so that he could go home vs. snf. CM note from 05/08 notes that he has not been accepted at any SNFs due to not being vaccinated against COVID --> PATIENT IMPROVING WITH THERAPY 05/18. TO HAVE ADDITIONAL CALL WITH BARREL BANDER 05/19 TO DETERMINE IF ADDITIONAL NEEDS ABLE TO BE ACCOMMODATED Given length of time inpatient, be mindful of medications timing out and dropping off MAR Admission and Anticipated Discharge Date Admission Date: March 20, 2021 Supervising Physician Co-Signing Physician Notes BALDOMERO Supervision Note: I did not personally see or examine the patient today, but I verified all trinh points of BALDOMERO Nugent's assessment and plan with the following exceptions/additions: None Subjective patient evaluated this afternoon no current issues -- has not spoken to healthcare administration intern yet this morning to see if additional help available discussed holding off on rehab discussion until this is completed (to be done tomorrow morning for 2hr eval on telephone per discussion with CM this afternoon). No fever, chills, chest pain, shortness of breath, abd pain, nausea, vomiting or dysuria at this time. Review of Systems Review of Systems: All systems reviewed & are unremarkable except as noted in HPI & below Physical Exam Physical Exam: The patient appeared well nourished and normally developed. Head normocephalic atraumatic Neck is without JVD, thyromegaly, or carotid bruits. Lungs CTAB, faint bibasilar crackles (improved with cough), diminished in the bases L>R base, no respiratory distress or accessory muscle use. 99% on RA Cardiac exam, Rhythm is regular.. No murmurs, rubs or gallops. Abdominal exam reveals normal bowel sounds, soft non tender, no masses Extremities are nonedematous and both pedal pulses are present Neurologic exam is alert and oriented, no focal loss of strength or sensation Skin is without bruises or rashes Psychologically: AOx3, cooperative and calm, watching TV in bed Results & Data Results & Data ([facility]) Vital Signs (Past 12 Hours) Vital Signs Temp Pulse Pulse Resp BP Pulse Ox 05/18/21 07:01 36.9 C 83 18 96/63 L 93 05/17/21 22:12 36.8 C 93 H 93 H 18 105/65 96 Laboratory Results 05/18/21 05/18/21 Range/Units 09:45 09:45 WBC 10.70 (4.8-10.8) K/uL RBC 4.01 L (4.7-6.1) M/uL Hgb 10.8 L (14.0-18.0) g/dL Hct 32.7 L (42-52) % MCV 81.5 (80-100) fL MCH 26.9 (25-34) pg MCHC 33.0 (32-36) g/dL RDW Std Deviation 56.2 H (36.4-46.3) fL RDW Coeff of Raul 18.7 H (11.5-14.5) % Plt Count 391 (130-400) K/uL MPV 8.7 (7.4-10.4) fL Sodium 130 L (136-145) mmol/L Potassium 3.7 (3.5-5.1) mmol/L Chloride 97 L (98-107) mmol/L Carbon Dioxide 27 (21-32) mmol/L Anion Gap 6.0 (3-11) BUN 15 (7-18) mg/dl Creatinine 0.70 (0.6-1.4) mg/dl Est Cr Clr Drug Dosing 89.1 ml/min Est GFR ( Amer) 113.2 ml/min Est GFR (Non-Af Amer) 97.7 ml/min BUN/Creatinine Ratio 21.0 H (10-20) Glucose 82 (70-99) mg/dl Calcium 9.7 (8.5-10.1) mg/dl Diagnostic Findings Chest X-Ray 05/18/21 08:00 XR chest 1V portable HISTORY: eval for progression of effusion COMPARISON: Chest 05/12/2021. FINDINGS: No pneumothorax. Moderate left pleural effusion is again noted. This is similar to the prior study. The heart remains borderline enlarged. There is perihilar interstitial/vascular thickening suggestive of mild congestive change. No significant right pleural effusion. No rib fractures. Bilateral perihilar airspace opacities persist. Left lower lobe density is also unchanged. IMPRESSION: No significant change compared to the prior study. Perihilar airspace opacities and a moderate left pleural effusion persists. ACT 112: Negative or not required by law. Electronically signed by: Patricio Burger M.D. 05/18/2021 9:03 AM PG Care Time/CCT Total # of Minutes Spent Total Time Spent with Patient: Total time spent is greater than 50% in coordination of care (as documented) at patient's floor/unit and/or counseling patient: Coding Level of Care Code 03319 Subseq Hosp Care Lvl 1 Diagnoses Recurrent left pleural effusion J90 Adrenal insufficiency E27.40 Anemia D64.9 Hypotension I95.9 Dysphagia R13.10 CKD (chronic kidney disease) stage 2, GFR 60-89 ml/min N18.2 Chronic hypoxemic respiratory failure J96.11 COPD (chronic obstructive pulmonary disease) with chronic bronchitis J44.9 History of lung cancer Z85.118 Hyponatremia E87.1 Peripheral arterial disease I73.9 Bilateral carotid artery occlusion I65.23 Unstageable pressure ulcer of left heel L89.620 Bipolar disorder F31.9 Most recent bipolar episode type: most recent episode unspecified type Constipation K59.00 Right shoulder pain M25.511 (1) Bipolar disorder Most recent bipolar episode type: most recent episode unspecified type
[2021-05-18 10:09] LABS: Hematocrit (blood only) 32.7 % (42-52); Hemoglobin 10.8 g/dL (14.0-18.0); Mean Corpuscular Hemoglobin 26.9 pg (25-34); Mean Corpuscular Volume 81.5 fL (80-100); Mean Platelet Volume 8.7 fL (7.4-10.4); Platelet Count 391 K/uL (130-400); RDW Coefficient of Variation 18.7 % (11.5-14.5); RDW Standard Deviation 56.2 fL (36.4-46.3); Red Blood Count 4.01 M/uL (4.7-6.1)
[2021-05-18 10:30] LABS: Calcium 9.7 mg/dl (8.5-10.1); Creatinine Clr Calc Pharmacy 89.1 ml/min; Est GFR (African American) 113.2 ml/min; Est GFR (Non-African American) 97.7 ml/min; Potassium 3.7 mmol/L (3.5-5.1)
[2021-05-18] MEDS: VALPROIC ACID SOLN 500 MG/10 ML UDC PO SCH (21:43)
[2021-05-18] MEDS: QUEtiapine FUMARATE 25 MG TABLET PO SCH (21:43)
--- NOTE | 2021-05-19 08:47 | Hospitalist Progress Note ---
Date of Service May 19, 2021 Assessment & Plan (1) Adrenal insufficiency: Plan: Admitted with weakness, nausea, worsening hyponatremia, orthostatic hypotension ongoing for a long time Initial fasting AM cortisol earlier in hospital course was low normal at 5, but now repeat even lower at 3 and no use of steroids More of a chronic presentation CT abd/pel on 03/17/21 with normal adrenal glands; Brain MRI 03/18/21 normal Perhaps related to autoimmune disorder? On 04/22, started hydrocortisone 10mg in AM and 5mg in PM-significantly improved - Will need f/u as Endocrine as outpt - ACTH level is 10 and plasma renin activity 1.93 (2) Recurrent left pleural effusion: Plan: Patient remains afebrile - procalcitonin WNL --previous CXR and cough concerning for possible PNA however CTA more s uggestive of worsening pleural effusion - still not requiring supplemental O2 --since no defined pneumonia put on Doxycycline x 7 days, to be completed 05/23 Repeat CXR No significant change compared to the prior study. Perihilar airspace opacities and a moderate left pleural effusion persists. 96% on RA and no respiratory distress. Lungs sound improved on examination based on previous documentation. Continue incentive spirometer Pulmonology consulted/signed off - discussed with pulm for consideration for tap as BP may limited diuretics and may not be that beneficial given the chronic nature of his effusion; no indication for thoracentesis per pulmonary med as no need for supplemental O2; has required thoracentesis in the past (3) Anemia: Plan: - hgb was 7.3 on arrival -- up to 10s without intervention/no transfusion- has waxed and waned between 8-10. Most likely margin of error in the lab - Microcytic - stool for occult blood negative x 2 - Did have a W/U and Seen by established talk show host/oncologist-- started on Ferrous sulfate/folic acid - EGD on 04/13 - dilated esophagus due to benign appearing esophageal stenosis; gastritis with biopsy obtained - repeated endoscopy for retreatment on 04/27/21 - Pathology - chronic gastritis, mild; neg H. pylori, no metaplasia, dysplasia, or malignancy (4) Hypotension: Plan: - Initially thought secondary to Seroquel and metoprolol side effect - Improved w/ hydrocortisone, and dc of home metoprolol - Pt has since been weaned off Midodrine - BPs stable , currently 110/70 (5) Dysphagia: Plan: Had complaint of feeling like food is getting stuck with swallowing on 04/06 -- Has had intermittent episodes of vomiting after taking pills throughout his hospital stay - much improved since dilation Has a h/o esophageal strictures requiring dilatation in 2017 He would not be able to withstand a barium swallow as he cannot stand up for more than a few seconds to a minute at a time Now s/p esophageal dilatation on 04/13 and 04/27 for severe restriction and doing much better with swallowing - Tolerating diet - Continue Prevacid (d/t soluble nature and issues with pill swallowing) - changed bigger pills to liquids (6) CKD (chronic kidney disease) stage 2, GFR 60-89 ml/min: Plan: - Renal function appears to be at baseline in this patient, continue to monitor periodically (7) Chronic hypoxemic respiratory failure: Plan: - chronic. No acute issues - continue O2 prn-none needed for weeks (8) COPD (chronic obstructive pulmonary disease) with chronic bronchitis: Plan: - Patient with a history of COPD, still smoking despite lung cancer diagnosis (granted has been inpatient for an extended period of time) - ? reoccurrence of non-small cell lung CA on imaging vs post-radiation changes - Trelegy (ICS/AC/LABA) as an outpatient -->substituted Anoro Ellipta (AC/LABA) and Arnuity Ellipta (ICS) while inpatient - Oxygenating well on room air - Supplemental oxygen as needed to maintain SaO2 between 88 and 92% -has not needed O2 in a long time - pulmonology consulted (previously followed w/ Dr. 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 Most recent TSH wnl 2.4 in March 2021 (11) Peripheral arterial disease: Plan: - Started on Plavix and STATIN (hold pending eval for thoracentesis) - if they ultimately do not want to do this can resume --> RESUMED PLAVIX 05/18 - History of aortofemoral bypass per prior notes (12) Bilateral carotid artery occlusion: Plan: - started Plavix and statin this admission - as above, resumed plavix 05/18 (13) Unstageable pressure ulcer of left heel: Plan: - no osteo continue local care (14) Bipolar disorder: Plan: stable - continue depakote but changed to liquid as tabs large and hard to swallow - continue reduced dose of seroquel and wellbutrin (15) Constipation: Plan: - bowel protocol ordered on board; adequate bowel movements - continue senna/docusate - Miralax PRN (16) Right shoulder pain: Plan: - Voltaren gel to right shoulder Plan: Disposition: Lives alone in [facility] and is quite debilitated (prolonged course of mobility issues) Working with case management. still looking for rehab placement-no beds available, multiple referrals out - however patient really wants to go home and no longer interested in rehab - Working on transfers to see if we can get him home with family support - has his home wheelchair here as he thinks he might be able to transfer better with that - Sister (EJ), ex-, and friend are in agreement to home with their support and home services - PT has been working on transfers as he has not been standing for quite some time - last eval he was able to transfer to wheelchair but could not transfer back Therapy needs to be working with patient daily in order to determine if able to get him to transfer to the point of transitioning back home with home health. Note from 05/07 indicates CM communicating with his [facility] coordinator for waiver services to determine if they can increase aide care so that he could go home vs. snf. CM note from 05/08 notes that he has not been accepted at any SNFs due to not being vaccinated against COVID --> PATIENT IMPROVING WITH THERAPY 05/18. TO HAVE ADDITIONAL CALL WITH RING PACKER 05/19 (DID NOT ENVIRONMENTAL SOLUTIONS ENGINEER CALL AND ALERTE CM TO REACH OUT FOR THEM TO CALL BACK THIS AFTERNOON) TO DETERMINE IF ADDITIONAL NEEDS ABLE TO BE ACCOMMODATED Given length of time inpatient, be mindful of medications timing out and dropping off MAR Admission and Anticipated Discharge Date Admission Date: March 20, 2021 Supervising Physician Co-Signing Physician Notes PA Supervision Note: I did not personally see or examine the patient today, but I verified all trinh points of BALDOMERO Nugent's assessment and plan with the following exceptions/additions: None Subjective No new issues Review of Systems Review of Systems: All systems reviewed & are unremarkable except as noted in HPI & below Physical Exam Physical Exam: WD/WN, laying in bed with urinal in use, no acute distress, watching TV Head normocephalic atraumatic , mm slightly dry Neck is without JVD, thyromegaly, or carotid bruits. Lungs CTAB, faint bibasilar crackles (decreased, improved with cough), diminished in the bases L>R base, no respiratory distress or accessory muscle use. 96% on RA Cardiac exam, Rhythm is regular.. No murmurs, rubs or gallops. GI: +BS, soft, non-tender Extremities are nonedematous and both pedal pulses are present Neurologic exam is alert and oriented, no focal loss of strength or sensation Skin is without bruises or rashes Psychologically: AOx3, cooperative and calm, watching TV in bed Results & Data Results & Data ([facility]) Vital Signs (Past 12 Hours) Vital Signs Temp Pulse Resp BP Pulse Ox 05/19/21 08:28 36.8 C 85 16 110/70 96 05/18/21 22:33 37.0 C 93 H 18 109/69 97 Laboratory Results 05/19/21 Range/Units 09:02 Sodium 129 L (136-145) mmol/L Potassium 4.0 (3.5-5.1) mmol/L Chloride 98 (98-107) mmol/L Carbon Dioxide 24 (21-32) mmol/L Anion Gap 7.0 (3-11) BUN 14 (7-18) mg/dl Creatinine 0.61 (0.6-1.4) mg/dl Est Cr Clr Drug Dosing 102.2 ml/min Est GFR ( Amer) 119.8 ml/min Est GFR (Non-Af Amer) 103.3 ml/min BUN/Creatinine Ratio 23.5 H (10-20) Glucose 96 (70-99) mg/dl Calcium 9.5 (8.5-10.1) mg/dl Specimen Hemolysis PG Care Time/CCT Total # of Minutes Spent Total Time Spent with Patient: Total time spent is greater than 50% in coordination of care (as documented) at patient's floor/unit and/or counseling patient: Coding Level of Care Code 02033 Subseq Hosp Care Lvl 1 Diagnoses Adrenal insufficiency E27.40 Recurrent left pleural effusion J90 Anemia D64.9 Hypotension I95.9 Dysphagia R13.10 CKD (chronic kidney disease) stage 2, GFR 60-89 ml/min N18.2 Chronic hypoxemic respiratory failure J96.11 COPD (chronic obstructive pulmonary disease) with chronic bronchitis J44.9 History of lung cancer Z85.118 Hyponatremia E87.1 Peripheral arterial disease I73.9 Bilateral carotid artery occlusion I65.23 Unstageable pressure ulcer of left heel L89.620 Bipolar disorder F31.9 Most recent bipolar episode type: most recent episode unspecified type Constipation K59.00 Right shoulder pain M25.511 (1) Bipolar disorder Most recent bipolar episode type: most recent episode unspecified type
[2021-05-19] MEDS: FLUTICASONE FUROATE 100MCG 14 PUFFS/INHALER INH SCH (08:53)
[2021-05-19] MEDS: FERROUS SULFATE ELIX 220MG/5ML PO SCH ×2 (08:53→17:49)
[2021-05-19] MEDS: UMECLIDINIUM/VILANTEROL 62.5/25MCG 7 PUFFS/INHALER INH SCH (08:53)
[2021-05-19] MEDS: VALPROIC ACID SOLN 250 MG/5 ML UDC PO SCH (08:54)
[2021-05-19] MEDS: CHOLECALCIFEROL 1,000 UNITS 25 MCG TAB PO SCH (08:55)
[2021-05-19] MEDS: HYDROCORTISONE 10 MG TAB PO SCH ×2 (08:55→15:35)
[2021-05-19] MEDS: ASCORBIC ACID 500 MG TAB PO SCH ×2 (08:55→20:29)
[2021-05-19] MEDS: ATORVASTATIN 40 MG TAB PO SCH (08:55)
[2021-05-19] MEDS: FOLIC ACID 1 MG TAB PO SCH (08:55)
[2021-05-19] MEDS: LANSOPRAZOLE 30 MG SOLTAB PO SCH (08:55)
[2021-05-19] MEDS: DOXYCYCLINE HYCLATE 100 MG CAP PO SCH ×2 (08:55→20:29)
[2021-05-19] MEDS: buPROPion HCl 100 MG TABLET PO SCH (08:55)
[2021-05-19] MEDS: CLOPIDOGREL BISULFATE 75 MG TAB PO SCH (08:55)
[2021-05-19] MEDS: MICONAZOLE NITRATE POWDER 43 GM EXT SCH ×2 (08:56→20:29)
[2021-05-19] MEDS ORDERED: ASPIRIN 81 MG ECTAB PO SCH (09:00)
[2021-05-19 09:53] LABS: BUN Creatinine Ratio 23.5 (10-20); Calcium 9.5 mg/dl (8.5-10.1); Creatinine Clr Calc Pharmacy 102.2 ml/min; Est GFR (African American) 119.8 ml/min; Est GFR (Non-African American) 103.3 ml/min
[2021-05-19] MEDS: QUEtiapine FUMARATE 25 MG TABLET PO SCH (20:29)
[2021-05-19] MEDS: VALPROIC ACID SOLN 500 MG/10 ML UDC PO SCH (20:30)
[2021-05-20] MEDS: ACETAMINOPHEN 500 MG TAB PO PRN (06:12)
[2021-05-20] MEDS: VALPROIC ACID SOLN 250 MG/5 ML UDC PO SCH (08:24)
[2021-05-20] MEDS: CHOLECALCIFEROL 1,000 UNITS 25 MCG TAB PO SCH (08:26)
[2021-05-20] MEDS: buPROPion HCl 100 MG TABLET PO SCH (08:26)
[2021-05-20] MEDS: ATORVASTATIN 40 MG TAB PO SCH (08:26)
[2021-05-20] MEDS: DOXYCYCLINE HYCLATE 100 MG CAP PO SCH ×2 (08:26→20:33)
[2021-05-20] MEDS: LANSOPRAZOLE 30 MG SOLTAB PO SCH (08:26)
[2021-05-20] MEDS: FLUTICASONE FUROATE 100MCG 14 PUFFS/INHALER INH SCH (08:27)
[2021-05-20] MEDS: CLOPIDOGREL BISULFATE 75 MG TAB PO SCH (08:27)
[2021-05-20] MEDS: FOLIC ACID 1 MG TAB PO SCH (08:27)
[2021-05-20] MEDS: HYDROCORTISONE 10 MG TAB PO SCH ×2 (08:27→16:18)
[2021-05-20] MEDS: ASCORBIC ACID 500 MG TAB PO SCH ×2 (08:27→20:33)
[2021-05-20] MEDS: UMECLIDINIUM/VILANTEROL 62.5/25MCG 7 PUFFS/INHALER INH SCH (08:28)
[2021-05-20] MEDS: MICONAZOLE NITRATE POWDER 43 GM EXT SCH ×2 (08:29→20:33)
--- NOTE | 2021-05-20 09:02 | Hospitalist Progress Note ---
Date of Service May 20, 2021 Assessment & Plan (1) Adrenal insufficiency: Plan: Admitted with weakness, nausea, worsening hyponatremia, orthostatic hypotension ongoing for a long time Initial fasting AM cortisol earlier in hospital course was low normal at 5, but now repeat even lower at 3 and no use of steroids More of a chronic presentation CT abd/pel on 03/17/21 with normal adrenal glands; Brain MRI 03/18/21 normal Perhaps related to autoimmune disorder? On 04/22, started hydrocortisone 10mg in AM and 5mg in PM-significantly improved - Will need f/u as Endocrine as outpt - ACTH level is 10 and plasma renin activity 1.93 (2) Recurrent left pleural effusion: Plan: Patient remains afebrile - procalcitonin WNL --previous CXR and cough concerning for possible PNA however CTA more s uggestive of worsening pleural effusion - still not requiring supplemental O2 --since no defined pneumonia put on Doxycycline x 7 days, to be completed 05/23 Repeat CXR No significant change compared to the prior study. Perihilar airspace opacities and a moderate left pleural effusion persists. 96% on RA and no respiratory distress. Lungs sound improved on examination based on previous documentation. Continue incentive spirometer Pulmonology consulted/signed off - discussed with pulm for consideration for tap as BP may limited diuretics and may not be that beneficial given the chronic nature of his effusion; no indication for thoracentesis per pulmonary med as no need for supplemental O2; has required thoracentesis in the past (3) Anemia: Plan: - hgb was 7.3 on arrival -- up to 10s without intervention/no transfusion- has waxed and waned between 8-10. Most likely margin of error in the lab - Microcytic - stool for occult blood negative x 2 - Did have a W/U and Seen by established merchandising internship/oncologist-- started on Ferrous sulfate/folic acid - EGD on 04/13 - dilated esophagus due to benign appearing esophageal stenosis; gastritis with biopsy obtained - repeated endoscopy for retreatment on 04/27/21 - Pathology - chronic gastritis, mild; neg H. pylori, no metaplasia, dysplasia, or malignancy (4) Hypotension: Plan: - Initially thought secondary to Seroquel and metoprolol side effect - Improved w/ hydrocortisone, and dc of home metoprolol - Pt has since been weaned off Midodrine - BPs stable , currently 110/70 (5) Dysphagia: Plan: Had complaint of feeling like food is getting stuck with swallowing on 04/06 -- Has had intermittent episodes of vomiting after taking pills throughout his hospital stay - much improved since dilation Has a h/o esophageal strictures requiring dilatation in 2017 He would not be able to withstand a barium swallow as he cannot stand up for more than a few seconds to a minute at a time Now s/p esophageal dilatation on 04/13 and 04/27 for severe restriction and doing much better with swallowing - Tolerating diet - Continue Prevacid (d/t soluble nature and issues with pill swallowing) - changed bigger pills to liquids (6) CKD (chronic kidney disease) stage 2, GFR 60-89 ml/min: Plan: - Renal function appears to be at baseline in this patient, continue to monitor periodically (7) Chronic hypoxemic respiratory failure: Plan: - chronic. No acute issues - continue O2 prn-none needed for weeks (8) COPD (chronic obstructive pulmonary disease) with chronic bronchitis: Plan: - Patient with a history of COPD, still smoking despite lung cancer diagnosis (granted has been inpatient for an extended period of time) - ? reoccurrence of non-small cell lung CA on imaging vs post-radiation changes - Trelegy (ICS/AC/LABA) as an outpatient -->substituted Anoro Ellipta (AC/LABA) and Arnuity Ellipta (ICS) while inpatient - Oxygenating well on room air - Supplemental oxygen as needed to maintain SaO2 between 88 and 92% -has not needed O2 in a long time - pulmonology consulted (previously followed w/ Dr. 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 Most recent TSH wnl 2.4 in March 2021 (11) Peripheral arterial disease: Plan: - Started on Plavix and STATIN (hold pending eval for thoracentesis) - if they ultimately do not want to do this can resume --> RESUMED PLAVIX 05/18 - History of aortofemoral bypass per prior notes (12) Bilateral carotid artery occlusion: Plan: - started Plavix and statin this admission - as above, resumed plavix 05/18 (13) Unstageable pressure ulcer of left heel: Plan: - no osteo continue local care (14) Bipolar disorder: Plan: stable - continue depakote but changed to liquid as tabs large and hard to swallow - continue reduced dose of seroquel and wellbutrin (15) Constipation: Plan: - bowel protocol ordered on board; adequate bowel movements - continue senna/docusate - Miralax PRN (16) Right shoulder pain: Plan: - Voltaren gel to right shoulder Plan: Disposition: Lives alone in [facility] and is quite debilitated (prolonged course of mobility issues) Working with case management. still looking for rehab placement-no beds available, multiple referrals out - however patient really wants to go home and no longer interested in rehab - Working on transfers to see if we can get him home with family support - has his home wheelchair here as he thinks he might be able to transfer better with that - Sister (EJ), ex-, and friend are in agreement to home with their support and home services - PT has been working on transfers as he has not been standing for quite some time - last eval he was able to transfer to wheelchair but could not transfer back Therapy needs to be working with patient daily in order to determine if able to get him to transfer to the point of transitioning back home with home health. Note from 05/07 indicates CM communicating with his [facility] coordinator for waiver services to determine if they can increase aide care so that he could go home vs. snf. CM note from 05/08 notes that he has not been accepted at any SNFs due to not being vaccinated against COVID --> PATIENT IMPROVING WITH THERAPY 05/18. TO HAVE ADDITIONAL CALL WITH MOBILE HEALTH VEHICLE OPERATOR 05/19 (DID NOT PATIENT OBSERVER CALL AND ALERTE CM TO REACH OUT FOR THEM TO CALL BACK THIS AFTERNOON) TO DETERMINE IF ADDITIONAL NEEDS ABLE TO BE ACCOMMODATED --> CM TO HAVE MOBILE HEALTH VEHICLE OPERATOR CALL IN AGAIN TODAY AND GIVEN NURSING STATION NUMBER TO ENSURE HE IS ABLE TO ANSWER --> Patient states he DID NOT get a phone call yesterday Given length of time inpatient, be mindful of medications timing out and dropping off AUG Admission and Anticipated Discharge Date Admission Date: March 20, 2021 Supervising Physician Co-Signing Physician Notes PA Supervision Note: I did not personally see or examine the patient today, but I verified all trinh points of BALDOMERO Nugent's assessment and plan with the following exceptions/additions: None Subjective patient evaluated this morning. sitting up in wheelchair watching tv. stated no one called back yesterday to talk about care --> messaged CM about again not receiving a call as therapy rec rehab and patient still does not want to go. no new complaints today. no f/c/cp/sob and remains on room air. no questions at this time. Review of Systems Review of Systems: All systems reviewed & are unremarkable except as noted in HPI & below Physical Exam Physical Exam: WD/WN, laying in bed with urinal in use, no acute distress, watching TV Head normocephalic atraumatic , mm slightly dry Neck is without JVD, thyromegaly, or carotid bruits. Lungs CTAB, faint bibasilar crackles (decreased, improved with cough), diminished in the bases L>R base, no respiratory distress or accessory muscle use. 97% on RA Cardiac exam, Rhythm is regular.. No murmurs, rubs or gallops. GI: +BS, soft, non-tender Extremities are nonedematous and both pedal pulses are present Neurologic exam is alert and oriented, no focal loss of strength or sensation Skin is without bruises or rashes Psychologically: AOx3, flat affect, watching TV in wheelchair currently Results & Data Results & Data ([facility]) Vital Signs (Past 12 Hours) Vital Signs Temp Pulse Resp BP Pulse Ox 05/20/21 08:16 36.9 C 76 16 107/66 97 05/19/21 22:50 36.9 C 89 19 127/74 96 PG Care Time/CCT Total # of Minutes Spent Total Time Spent with Patient: Total time spent is greater than 50% in coordination of care (as documented) at patient's floor/unit and/or counseling patient: Coding Level of Care Code 04843 Subseq Hosp Care Lvl 1 Diagnoses Adrenal insufficiency E27.40 Recurrent left pleural effusion J90 Anemia D64.9 Hypotension I95.9 Dysphagia R13.10 CKD (chronic kidney disease) stage 2, GFR 60-89 ml/min N18.2 Chronic hypoxemic respiratory failure J96.11 COPD (chronic obstructive pulmonary disease) with chronic bronchitis J44.9 History of lung cancer Z85.118 Hyponatremia E87.1 Peripheral arterial disease I73.9 Bilateral carotid artery occlusion I65.23 Unstageable pressure ulcer of left heel L89.620 Bipolar disorder F31.9 Most recent bipolar episode type: most recent episode unspecified type Constipation K59.00 Right shoulder pain M25.511 (1) Bipolar disorder Most recent bipolar episode type: most recent episode unspecified type
[2021-05-20] MEDS: FERROUS SULFATE ELIX 220MG/5ML PO SCH ×2 (09:28→16:18)
--- NOTE | 2021-05-20 10:53 | XRay Report ---
XR chest 2V PA/lateral HISTORY: 66 years-old Male Follow up follow-up study in a patient with left pleural effusion and oc ateral pulmonary opacities COMPARISON: Chest radiograph 05/18/2021, chest CT 05/12/2021 TECHNIQUE: AP and lateral views of the chest FINDINGS: Cardiomegaly. Unchanged moderate to large left pleural effusion with left lung pulmonary opacities an d volume loss. Perihilar fibrosis redemonstrated with interstitial coarsening of the lungs. No pneumo thorax. Degenerative changes of the shoulders and spine. IMPRESSION: 1. Unchanged moderate to large left pleural effusion with left lung consolidation. 2. Bilateral perihilar densities redemonstrated suggestive of fibrosis. ACT 112: Negative or not required by law. The above report was generated using voice recognition software. It may contain grammatical, syntax o r spelling errors. Electronically signed by: Александр Moore M.D. 05/20/2021 10:51 AM
[2021-05-20] MEDS: VALPROIC ACID SOLN 500 MG/10 ML UDC PO SCH (20:33)
[2021-05-20] MEDS: QUEtiapine FUMARATE 25 MG TABLET PO SCH (20:33)
[2021-05-21] MEDS: FERROUS SULFATE ELIX 220MG/5ML PO SCH ×2 (08:26→16:20)
[2021-05-21] MEDS: VALPROIC ACID SOLN 250 MG/5 ML UDC PO SCH (08:27)
[2021-05-21] MEDS: LANSOPRAZOLE 30 MG SOLTAB PO SCH (08:27)
[2021-05-21] MEDS: UMECLIDINIUM/VILANTEROL 62.5/25MCG 7 PUFFS/INHALER INH SCH (08:28)
[2021-05-21] MEDS: FLUTICASONE FUROATE 100MCG 14 PUFFS/INHALER INH SCH (08:28)
[2021-05-21] MEDS: FOLIC ACID 1 MG TAB PO SCH (08:28)
[2021-05-21] MEDS: ASCORBIC ACID 500 MG TAB PO SCH ×2 (08:28→20:33)
[2021-05-21] MEDS: HYDROCORTISONE 10 MG TAB PO SCH ×2 (08:28→16:20)
[2021-05-21] MEDS: CLOPIDOGREL BISULFATE 75 MG TAB PO SCH (08:29)
[2021-05-21] MEDS: DOXYCYCLINE HYCLATE 100 MG CAP PO SCH ×2 (08:29→20:33)
[2021-05-21] MEDS: CHOLECALCIFEROL 1,000 UNITS 25 MCG TAB PO SCH (08:29)
[2021-05-21] MEDS: ATORVASTATIN 40 MG TAB PO SCH (08:29)
[2021-05-21] MEDS: MICONAZOLE NITRATE POWDER 43 GM EXT SCH ×2 (08:29→20:33)
[2021-05-21] MEDS: buPROPion HCl 100 MG TABLET PO SCH (08:29)
[2021-05-21] MEDS: ACETAMINOPHEN 500 MG TAB PO PRN ×2 (08:32→20:32)
--- NOTE | 2021-05-21 09:05 | Hospitalist Progress Note ---
Date of Service May 21, 2021 Assessment & Plan (1) Adrenal insufficiency: Plan: Admitted with weakness, nausea, worsening hyponatremia, orthostatic hypotension ongoing for a long time Initial fasting AM cortisol earlier in hospital course was low normal at 5, but now repeat even lower at 3 and no use of steroids More of a chronic presentation CT abd/pel on 03/17/21 with normal adrenal glands; Brain MRI 03/18/21 normal Perhaps related to autoimmune disorder? On 04/22, started hydrocortisone 10mg in AM and 5mg in PM-significantly improved - Will need f/u as Endocrine as outpt - ACTH level is 10 and plasma renin activity 1.93 (2) Recurrent left pleural effusion: Plan: Patient remains afebrile - procalcitonin WNL --previous CXR and cough concerning for possible PNA however CTA more s uggestive of worsening pleural effusion - still not requiring supplemental O2 --since no defined pneumonia put on Doxycycline x 7 days, to be completed 05/23 Repeat CXR No significant change compared to the prior study. Perihilar airspace opacities and a moderate left pleural effusion persists. 96% on RA and no respiratory distress. Lungs sound improved on examination based on previous documentation. --> CXR 05/20 with mod L effusion with consolidation from effusions/laying --> at risk for loculation however asymptomatic and would not want any tx if malignant Pulmonology consulted/signed off - discussed with pulm for consideration for tap as BP may limited diuretics and may not be that beneficial given the chronic nature of his effusion; no indication for thoracentesis per pulmonary med as no need for supplemental O2; has required thoracentesis in the past --> would need to hold plavix if changes mind/convene earlier if patient becomes symptomatic but he has no fever, cough, or shortness of breath reported. will try lasix 20mg po x 1 however BP does limit diuretic use Continue incentive spirometer (3) Anemia: Plan: - hgb was 7.3 on arrival -- up to 10s without intervention/no transfusion- has waxed and waned between 8-10. Most likely margin of error in the lab - Microcytic - stool for occult blood negative x 2 - Did have a W/U and Seen by established cube machine tender/oncologist-- started on Ferrous sulfate/folic acid - EGD on 04/13 - dilated esophagus due to benign appearing esophageal stenosis; gastritis with biopsy obtained - repeated endoscopy for retreatment on 04/27/21 - Pathology - chronic gastritis, mild; neg H. pylori, no metaplasia, dysplasia, or malignancy (4) Hypotension: Plan: - Initially thought secondary to Seroquel and metoprolol side effect - Improved w/ hydrocortisone, and dc of home metoprolol - Pt has since been weaned off Midodrine - BPs stable , currently 109/71 (5) Dysphagia: Plan: Had complaint of feeling like food is getting stuck with swallowing on 04/06 -- Has had intermittent episodes of vomiting after taking pills throughout his hospital stay - much improved since dilation Has a h/o esophageal strictures requiring dilatation in 2017 He would not be able to withstand a barium swallow as he cannot stand up for more than a few seconds to a minute at a time Now s/p esophageal dilatation on 04/13 and 04/27 for severe restriction and doing much better with swallowing - Tolerating diet - Continue Prevacid (d/t soluble nature and issues with pill swallowing) - changed bigger pills to liquids (6) CKD (chronic kidney disease) stage 2, GFR 60-89 ml/min: Plan: - Renal function appears to be at baseline in this patient, continue to monitor periodically (7) Chronic hypoxemic respiratory failure: Plan: - chronic. No acute issues - continue O2 prn-none needed for weeks (8) COPD (chronic obstructive pulmonary disease) with chronic bronchitis: Plan: - Patient with a history of COPD, still smoking despite lung cancer diagnosis (granted has been inpatient for an extended period of time) - ? reoccurrence of non-small cell lung CA on imaging vs post-radiation changes - Trelegy (ICS/AC/LABA) as an outpatient -->substituted Anoro Ellipta (AC/LABA) and Arnuity Ellipta (ICS) while inpatient - Oxygenating well on room air - Supplemental oxygen as needed to maintain SaO2 between 88 and 92% -has not needed O2 in a long time - pulmonology consulted (previously followed w/ Dr. 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 Most recent TSH wnl 2.4 in March 2021 (11) Peripheral arterial disease: Plan: - Started on Plavix and STATIN (hold pending eval for thoracentesis) - if they ultimately do not want to do this can resume --> RESUMED PLAVIX 05/18 - History of aortofemoral bypass per prior notes (12) Bilateral carotid artery occlusion: Plan: - started Plavix and statin this admission - as above, resumed plavix 05/18 (13) Unstageable pressure ulcer of left heel: Plan: - no osteo continue local care (14) Bipolar disorder: Plan: stable - continue depakote but changed to liquid as tabs large and hard to swallow - continue reduced dose of seroquel and wellbutrin (15) Constipation: Plan: - bowel protocol ordered on board; adequate bowel movements - continue senna/docusate - Miralax PRN (16) Right shoulder pain: Plan: - Voltaren gel to right shoulder Plan: Disposition: Lives alone in [facility] and is quite debilitated (prolonged course of mobility issues) Working with case management. still looking for rehab placement-no beds available, multiple referrals out - however patient really wants to go home and no longer interested in rehab - Working on transfers to see if we can get him home with family support - has his home wheelchair here as he thinks he might be able to transfer better with that - Sister (EJ), ex-, and friend are in agreement to home with their support and home services - PT has been working on transfers as he has not been standing for quite some time - last eval he was able to transfer to wheelchair but could not transfer back Therapy needs to be working with patient daily in order to determine if able to get him to transfer to the point of transitioning back home with home health. Note from 05/07 indicates CM communicating with his [facility] coordinator for waiver services to determine if they can increase aide care so that he could go home vs. snf. CM note from 05/08 notes that he has not been accepted at any SNFs due to not being vaccinated against COVID --> PATIENT IMPROVING WITH THERAPY 05/18. TO HAVE ADDITIONAL CALL WITH SOIL SAMPLER 05/19 (DID NOT TECHNOLOGIES DIVISION CHAIR CALL AND ALERTE CM TO REACH OUT FOR THEM TO CALL BACK THIS AFTERNOON) TO DETERMINE IF ADDITIONAL NEEDS ABLE TO BE ACCOMMODATED --> CM TO HAVE SOIL SAMPLER CALL IN AGAIN TODAY AND GIVEN NURSING STATION NUMBER TO ENSURE HE IS ABLE TO ANSWER --> Patient states he DID NOT get a phone call yesterday or day prior 05/21 --> CALL TO BE MADE TOMORROW MORNING 05/22 AT 11AM to patient's room. If he doesn't answer, they are to call nursing station. This was discussed with patient by myself and CM multiple times as well as relayed to nursing staff to be on lookout. Given length of time inpatient, be mindful of medications timing out and dropping off MAR Admission and Anticipated Discharge Date Admission Date: March 20, 2021 Supervising Physician Co-Signing Physician Notes BALDOMERO Supervision Note: I did not personally see or examine the patient today, but I verified all trinh points of BALDOMERO Nugent's assessment and plan with the following exceptions/additions: None Subjective patient evaluated this afternoon laying in bed watching tv no complaints at this time -- no cough, fever, chest pain, shortness of breath discussed effusion -- patient without symptoms and he doesn't feel any benefit at this time. discussed if any symptoms/would hold plavix and reach back out to pulm but they also feel ok at this time to hold off given chronic in nature. Discussed at risk for loculations and if that occurs would rec for pulm to weigh back in. Demonstrated understanding. no f/c/cp/abd pain, n/v, dysuria at this time. Review of Systems Review of Systems: All systems reviewed & are unremarkable except as noted in HPI & below Physical Exam Physical Exam: WD/WN, laying in bed with urinal in use, no acute distress, watching TV Head normocephalic atraumatic , mm slightly dry Neck is without JVD, thyromegaly, or carotid bruits. Lungs: diminished in the bases, L>R, no accessory muscle use, cough, crepitus, no wheezing, 96% on RA Cardiac: RRR, no m/r/g, no edema Extremities are nonedematous and both pedal pulses are present Neurologic exam is alert and oriented, no focal loss of strength or sensation Skin is without bruises or rashes Psychologically: AOx3, flat affect, watching TV in wheelchair currently Results & Data Results & Data ([facility]) Vital Signs (Past 12 Hours) Vital Signs Temp Pulse Resp BP BP Pulse Ox 05/21/21 07:18 37.1 C 83 14 109/71 96 05/20/21 22:47 36.6 C 85 18 101/65 95 PG Care Time/CCT Total # of Minutes Spent Total Time Spent with Patient: Total time spent is greater than 50% in coordination of care (as documented) at patient's floor/unit and/or counseling patient: Coding Level of Care Code 82201 Subseq Hosp Care Lvl 2 Diagnoses Adrenal insufficiency E27.40 Recurrent left pleural effusion J90 Anemia D64.9 Hypotension I95.9 Dysphagia R13.10 CKD (chronic kidney disease) stage 2, GFR 60-89 ml/min N18.2 Chronic hypoxemic respiratory failure J96.11 COPD (chronic obstructive pulmonary disease) with chronic bronchitis J44.9 History of lung cancer Z85.118 Hyponatremia E87.1 Peripheral arterial disease I73.9 Bilateral carotid artery occlusion I65.23 Unstageable pressure ulcer of left heel L89.620 Bipolar disorder F31.9 Most recent bipolar episode type: most recent episode unspecified type Constipation K59.00 Right shoulder pain M25.511 (1) Bipolar disorder Most recent bipolar episode type: most recent episode unspecified type
[2021-05-21] MEDS ORDERED: FUROSEMIDE 20 MG TAB PO ONE (12:18)
[2021-05-21] MEDS: VALPROIC ACID SOLN 500 MG/10 ML UDC PO SCH (20:32)
[2021-05-21] MEDS: QUEtiapine FUMARATE 25 MG TABLET PO SCH (20:33)
[2021-05-22 06:35] LABS: BUN Creatinine Ratio 21.3 (10-20); Creatinine Clr Calc Pharmacy 113.4 ml/min; Est GFR (Non-African American) 107.8 ml/min; Potassium 4.1 mmol/L (3.5-5.1)
--- NOTE | 2021-05-22 08:02 | XRay Report ---
XR chest 1V portable CLINICAL HISTORY: Pleural effusion TECHNIQUE: Single frontal radiograph of the chest was obtained. Comparison: Comparison is made to chest 2 views 05/20/2021 FINDINGS: No lines and tubes are seen. The cardiomediastinal silhouette is stable. Stable left pleural effusion with underlying airspace opacity. Redemonstration of perihilar fibrosis. IMPRESSION: Stable left pleural effusion with underlying airspace opacity compatible with atelectasis, pneumonia, and/or aspiration. ACT 112: Negative or not required by law. Electronically signed by: Lanre Douglass M.D. 05/22/2021 8:01 AM
--- NOTE | 2021-05-22 08:20 | Hospitalist Progress Note ---
Date of Service May 22, 2021 Assessment & Plan (1) Adrenal insufficiency: Plan: Admitted with weakness, nausea, worsening hyponatremia, orthostatic hypotension ongoing for a long time Initial fasting AM cortisol earlier in hospital course was low normal at 5, but now repeat even lower at 3 and no use of steroids More of a chronic presentation CT abd/pel on 03/17/21 with normal adrenal glands; Brain MRI 03/18/21 normal Perhaps related to autoimmune disorder? On 04/22, started hydrocortisone 10mg in AM and 5mg in PM-significantly improved - Will need f/u as Endocrine as outpt - ACTH level is 10 and plasma renin activity 1.93 added pepcid for GI proph and would continue at d/c (2) Recurrent left pleural effusion: Plan: Patient remains afebrile - procalcitonin WNL --previous CXR and cough concerning for possible PNA however CTA more suggestive of worsening pleural effusion - still not requiring supplemental O2 --since no defined pneumonia put on Doxycycline x 7 days, to be completed 05/23 Repeat CXR No significant change compared to the prior study. Perihilar airspace opacities and a moderate left pleural effusion persists. 96% on RA and no respiratory distress. Lungs sound improved on examination based on previous documentation. --> CXR 05/20 with mod L effusion with consolidation from effusions/laying --> at risk for loculation however asymptomatic and would not want any tx if malignant Pulmonology consulted/signed off - discussed with pulm for consideration for tap as BP may limited diuretics and may not be that beneficial given the chronic nature of his effusion; no indication for thoracentesis per pulmonary med as no need for supplemental O2; has required thoracentesis in the past --> would need to hold plavix if changes mind/convene earlier if patient becomes symptomatic but he has no fever, cough, or shortness of breath reported. will try lasix 20mg po x 1 05/21, however BP does limit diuretic use ( 99/64 AM of 05/22 but asymptomatic) --> CXR 05/22 with stable effusion with underlying airspace opacity compatible with atelectasis, pneumonia, and/or aspiration. Continue incentive spirometer (3) Anemia: Plan: - hgb was 7.3 on arrival -- up to 10s without intervention/no transfusion- has waxed and waned between 8-10. Most likely margin of error in the lab - Microcytic - stool for occult blood negative x 2 - Did have a W/U and Seen by established golf cart maker/oncologist-- started on Ferrous sulfate/folic acid - EGD on 04/13 - dilated esophagus due to benign appearing esophageal stenosis; gastritis with biopsy obtained - repeated endoscopy for retreatment on 04/27/21 - Pathology - chronic gastritis, mild; neg H. pylori, no metaplasia, dysplasia, or malignancy (4) Hypotension: Plan: - Initially thought secondary to Seroquel and metoprolol side effect - Improved w/ hydrocortisone, and dc of home metoprolol - Pt has since been weaned off Midodrine - BPs stable , hypotension 99/64 but stable, asymptomatic and likely from lasix use for above (5) Dysphagia: Plan: Had complaint of feeling like food is getting stuck with swallowing on 04/06 -- Has had intermittent episodes of vomiting after taking pills throughout his hospital stay - much improved since dilation Has a h/o esophageal strictures requiring dilatation in 2017 He would not be able to withstand a barium swallow as he cannot stand up for more than a few seconds to a minute at a time Now s/p esophageal dilatation on 04/13 and 04/27 for severe restriction and doing much better with swallowing - Tolerating diet - Continue Prevacid (d/t soluble nature and issues with pill swallowing) - changed bigger pills to liquids (6) CKD (chronic kidney disease) stage 2, GFR 60-89 ml/min: Plan: - Renal function appears to be at baseline in this patient, continue to monitor periodically (7) Chronic hypoxemic respiratory failure: Plan: - chronic. No acute issues - continue O2 prn-none needed for weeks (8) COPD (chronic obstructive pulmonary disease) with chronic bronchitis: Plan: - Patient with a history of COPD, still smoking despite lung cancer diagnosis (granted has been inpatient for an extended period of time) - ? reoccurrence of non-small cell lung CA on imaging vs post-radiation changes - Trelegy (ICS/AC/LABA) as an outpatient -->substituted Anoro Ellipta (AC/LABA) and Arnuity Ellipta (ICS) while inpatient - Oxygenating well on room air - Supplemental oxygen as needed to maintain SaO2 between 88 and 92% -has not needed O2 in a long time - pulmonology consulted (previously followed w/ Dr. 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 Most recent TSH wnl 2.4 in March 2021 (11) Peripheral arterial disease: Plan: - Started on Plavix and STATIN (hold pending eval for thoracentesis) - if they ultimately do not want to do this can resume --> RESUMED PLAVIX 05/18 - History of aortofemoral bypass per prior notes (12) Bilateral carotid artery occlusion: Plan: - started Plavix and statin this admission - as above, resumed plavix 05/18 (13) Unstageable pressure ulcer of left heel: Plan: - no osteo continue local care (14) Bipolar disorder: Plan: stable - continue depakote but changed to liquid as tabs large and hard to swallow - continue reduced dose of seroquel and wellbutrin (15) Constipation: Plan: - bowel protocol ordered on board; adequate bowel movements - continue senna/docusate - Miralax PRN (16) Right shoulder pain: Plan: - Voltaren gel to right shoulder Plan: Disposition: Lives alone in [facility] and is quite debilitated (prolonged course of mobility issues) Working with case management. still looking for rehab placement-no beds available, multiple referrals out - however patient really wants to go home and no longer interested in rehab - Working on transfers to see if we can get him home with family support - has his home wheelchair here as he thinks he might be able to transfer better with that - Sister (POMaki), ex-, and friend are in agreement to home with their support and home services - PT has been working on transfers as he has not been standing for quite some time - last eval he was able to transfer to wheelchair but could not transfer back Therapy needs to be working with patient daily in order to determine if able to get him to transfer to the point of transitioning back home with home health. Note from 05/07 indicates CM communicating with his [facility] coordinator for waiver services to determine if they can increase aide care so that he could go home vs. snf. CM note from 05/08 notes that he has not been accepted at any SNFs due to not being vaccinated against COVID Patient is making improvements but still needing assistance to get from bed to chair. Does well once in the chair, but needing additional assistance. Continued therapy while inpatient RING STRIKER ON PHONE WITH PATIENT CURRENTLY ~11:30AM TO DECIDE IF ABLE TO GET ADDITIONAL CAREGIVERS AT HOME. IF POSSIBLE, MAY BE ABLE TO RETURN HOME. IF NOT, PATIENT AGREEABLE TO SNF REF ONLY IN EVENT NOT ABLE TO GET EXTRA HOURS, BUT DISCUSSED THIS MAY BE THE CASE CM FOLLOWING Given length of time inpatient, be mindful of medications timing out and dropping off MAR Admission and Anticipated Discharge Date Admission Date: March 20, 2021 Supervising Physician Co-Signing Physician Notes Attending Attestation - Chart reviewed, care plan d/w BALDOMERO Nugent. I agree with the trinh components of her documentation. Omid Thomson MD Subjective patient evaluated this morning. sitting up in chair awaiting call from customer care assistant. no issues overnight, slightly tired and patiently awaiting call to occur. no respiratory symptoms such as cough, sputum production, shortness of breath or wheezing. no complaints at this time Review of Systems Review of Systems: All systems reviewed & are unremarkable except as noted in HPI & below Physical Exam Physical Exam: WD/WN, sitting up in chair, no acute distress Head normocephalic atraumatic , mm slightly dry Neck is without JVD, thyromegaly, or carotid bruits. Lungs: diminished in the bases L>R, no accessory muscle use, cough, crepitus, no wheezing, 97% on RA Cardiac: RRR, no m/r/g, no edema Extremities are nonedematous and both pedal pulses are present Neurologic exam is alert and oriented, no focal loss of strength or sensation Skin is without bruises or rashes Psychologically: AOx3, flat affect, watching TV in wheelchair currently Results & Data Results & Data ([facility]) Vital Signs (Past 12 Hours) Vital Signs Temp Pulse Resp BP Pulse Ox 05/22/21 07:54 37.1 C 81 12 99/64 L 97 05/21/21 22:30 37.0 C 85 18 104/66 95 Laboratory Results 05/22/21 Range/Units 05:55 Sodium 129 L (136-145) mmol/L Potassium 4.1 (3.5-5.1) mmol/L Chloride 97 L (98-107) mmol/L Carbon Dioxide 27 (21-32) mmol/L Anion Gap 5.0 (3-11) BUN 12 (7-18) mg/dl Creatinine 0.55 L (0.6-1.4) mg/dl Est Cr Clr Drug Dosing 113.4 ml/min Est GFR ( Amer) 125.0 ml/min Est GFR (Non-Af Amer) 107.8 ml/min BUN/Creatinine Ratio 21.3 H (10-20) Glucose 85 (70-99) mg/dl Calcium 9.0 (8.5-10.1) mg/dl Diagnostic Findings Chest X-Ray 05/22/21 08:00 XR chest 1V portable CLINICAL HISTORY: Pleural effusion TECHNIQUE: Single frontal radiograph of the chest was obtained. Comparison: Comparison is made to chest 2 views 05/20/2021 FINDINGS: No lines and tubes are seen. The cardiomediastinal silhouette is stable. Stable left pleural effusion with underlying airspace opacity. Redemonstration of perihilar fibrosis. IMPRESSION: Stable left pleural effusion with underlying airspace opacity compatible with atelectasis, pneumonia, and/or aspiration. ACT 112: Negative or not required by law. Electronically signed by: Lanre Douglass M.D. 05/22/2021 8:01 AM PG Care Time/CCT Total # of Minutes Spent Total Time Spent with Patient: Total time spent is greater than 50% in coordination of care (as documented) at patient's floor/unit and/or counseling patient: Coding Level of Care Code 81090 Subseq Hosp Care Lvl 2 Diagnoses Adrenal insufficiency E27.40 Recurrent left pleural effusion J90 Anemia D64.9 Hypotension I95.9 Dysphagia R13.10 CKD (chronic kidney disease) stage 2, GFR 60-89 ml/min N18.2 Chronic hypoxemic respiratory failure J96.11 COPD (chronic obstructive pulmonary disease) with chronic bronchitis J44.9 History of lung cancer Z85.118 Hyponatremia E87.1 Peripheral arterial disease I73.9 Bilateral carotid artery occlusion I65.23 Unstageable pressure ulcer of left heel L89.620 Bipolar disorder F31.9 Most recent bipolar episode type: most recent episode unspecified type Constipation K59.00 Right shoulder pain M25.511 (1) Bipolar disorder Most recent bipolar episode type: most recent episode unspecified type
[2021-05-22] MEDS: FERROUS SULFATE ELIX 220MG/5ML PO SCH ×2 (09:26→17:40)
[2021-05-22] MEDS: ASCORBIC ACID 500 MG TAB PO SCH ×2 (09:26→19:45)
[2021-05-22] MEDS: buPROPion HCl 100 MG TABLET PO SCH (09:27)
[2021-05-22] MEDS: CLOPIDOGREL BISULFATE 75 MG TAB PO SCH (09:27)
[2021-05-22] MEDS: FOLIC ACID 1 MG TAB PO SCH (09:27)
[2021-05-22] MEDS: DOXYCYCLINE HYCLATE 100 MG CAP PO SCH ×2 (09:27→19:45)
[2021-05-22] MEDS: CHOLECALCIFEROL 1,000 UNITS 25 MCG TAB PO SCH (09:27)
[2021-05-22] MEDS: ATORVASTATIN 40 MG TAB PO SCH (09:27)
[2021-05-22] MEDS: UMECLIDINIUM/VILANTEROL 62.5/25MCG 7 PUFFS/INHALER INH SCH (09:28)
[2021-05-22] MEDS: LANSOPRAZOLE 30 MG SOLTAB PO SCH (09:28)
[2021-05-22] MEDS: FLUTICASONE FUROATE 100MCG 14 PUFFS/INHALER INH SCH (09:28)
[2021-05-22] MEDS: HYDROCORTISONE 10 MG TAB PO SCH ×2 (09:28→15:34)
[2021-05-22] MEDS: VALPROIC ACID SOLN 250 MG/5 ML UDC PO SCH (09:29)
[2021-05-22] MEDS: MICONAZOLE NITRATE POWDER 43 GM EXT SCH ×2 (09:35→19:44)
[2021-05-22] MEDS: FAMOTIDINE 20 MG TAB PO SCH (12:21)
[2021-05-22] MEDS: QUEtiapine FUMARATE 25 MG TABLET PO SCH (19:45)
[2021-05-22] MEDS: VALPROIC ACID SOLN 500 MG/10 ML UDC PO SCH (19:45)
[2021-05-23 06:41] LABS: BUN Creatinine Ratio 24.3 (10-20); Calcium 9.2 mg/dl (8.5-10.1); Creatinine Clr Calc Pharmacy 119.9 ml/min; Est GFR (African American) 127.9 ml/min; Est GFR (Non-African American) 110.3 ml/min; Potassium 4.1 mmol/L (3.5-5.1)
[2021-05-23] MEDS: FERROUS SULFATE ELIX 220MG/5ML PO SCH ×2 (08:23→16:22)
[2021-05-23] MEDS: buPROPion HCl 100 MG TABLET PO SCH (08:23)
[2021-05-23] MEDS: ASCORBIC ACID 500 MG TAB PO SCH ×2 (08:23→21:09)
[2021-05-23] MEDS: ATORVASTATIN 40 MG TAB PO SCH (08:23)
[2021-05-23] MEDS: CHOLECALCIFEROL 1,000 UNITS 25 MCG TAB PO SCH (08:24)
[2021-05-23] MEDS: CLOPIDOGREL BISULFATE 75 MG TAB PO SCH (08:25)
[2021-05-23] MEDS: FOLIC ACID 1 MG TAB PO SCH (08:25)
[2021-05-23] MEDS: FAMOTIDINE 20 MG TAB PO SCH (08:25)
[2021-05-23] MEDS: UMECLIDINIUM/VILANTEROL 62.5/25MCG 7 PUFFS/INHALER INH SCH (08:25)
[2021-05-23] MEDS: FLUTICASONE FUROATE 100MCG 14 PUFFS/INHALER INH SCH (08:25)
[2021-05-23] MEDS: LANSOPRAZOLE 30 MG SOLTAB PO SCH (08:28)
[2021-05-23] MEDS: MICONAZOLE NITRATE POWDER 43 GM EXT SCH ×2 (08:28→21:16)
[2021-05-23] MEDS: VALPROIC ACID SOLN 250 MG/5 ML UDC PO SCH (08:28)
--- NOTE | 2021-05-23 08:43 | Hospitalist Progress Note ---
Date of Service May 23, 2021 Assessment & Plan (1) Adrenal insufficiency: Plan: Admitted with weakness, nausea, worsening hyponatremia, orthostatic hypotension ongoing for a long time Initial fasting AM cortisol earlier in hospital course was low normal at 5, but now repeat even lower at 3 and no use of steroids. Will repeat in AM given hypotension More of a chronic presentation CT abd/pel on 03/17/21 with normal adrenal glands; Brain MRI 03/18/21 normal Perhaps related to autoimmune disorder? On 04/22, started hydrocortisone 10mg in AM and 5mg in PM-significantly improved - Will need f/u as Endocrine as outpt - ACTH level is 10 and plasma renin activity 1.93 Prevacid for GI proph (2) Recurrent left pleural effusion: Plan: Patient remains afebrile - procalcitonin WNL --previous CXR and cough concerning for possible PNA however CTA more suggestive of worsening pleural effusion - still not requiring supplemental O2 --since no defined pneumonia put on Doxycycline x 7 days, to be completed 05/23 Repeat CXR No significant change compared to the prior study. Perihilar airspace opacities and a moderate left pleural effusion persists. 96% on RA and no respiratory distress. Lungs sound improved on examination based on previous documentation. --> CXR 05/20 with mod L effusion with consolidation from effusions/laying --> a t risk for loculation however asymptomatic and would not want any tx if malignant Pulmonology consulted/signed off - discussed with pulm for consideration for tap as BP may limited diuretics and may not be that beneficial given the chronic nature of his effusion; no indication for thoracentesis per pulmonary med as no need for supplemental O2; has required thoracentesis in the past --> would need to hold plavix if changes mind/convene earlier if patient becomes symptomatic but he has no fever, cough, or shortness of breath reported. will try lasix 20mg po x 1 05/21, however BP does limit diuretic use ( 99/64 AM of 05/22 but asymptomatic) --> CXR 05/22 with stable effusion with underlying airspace opacity compatible with atelectasis, pneumonia, and/or aspiration. Continue incentive spirometer -- has not been using much 05/23 -- mild wheezing/rales on exam. no fever. denies sputum production but has occasional cough. to complete 7 day course of doxy today. --> Xopenex prn added --> Encouraged continued use of incentive spirometer/flutter valve Will hold Plavix in event patient need thoracentesis 96% on Room Air Is at risk for loculation/pneumonia given size of effusion. Would add broader spectrum abx if febrile/developed productive cough Given dose of lasix on 05/21 but holding off on further diuretics given BP 97/64 this morning CXR 2 view in AM (3) Anemia: Plan: - hgb was 7.3 on arrival -- up to 10s without intervention/no transfusion- has waxed and waned between 8-10. Most likely margin of error in the lab - Microcytic - stool for occult blood negative x 2 - Did have a W/U and Seen by established motor vehicle field representative/oncologist-- started on Ferrous sulfate/folic acid - EGD on 04/13 - dilated esophagus due to benign appearing esophageal stenosis; gastritis with biopsy obtained - repeated endoscopy for retreatment on 04/27/21 - Pathology - chronic gastritis, mild; neg H. pylori, no metaplasia, dysplasia, or malignancy (4) Hypotension: Plan: - Initially thought secondary to Seroquel and metoprolol side effect - Improved w/ hydrocortisone, and dc of home metoprolol - Pt has since been weaned off Midodrine - BPs stable , hypotension 97/64 but stable, asymptomatic and likely from lasix use for above but will also check cortisol AM as well/adjustment of steroids if needed above (5) Dysphagia: Plan: Had complaint of feeling like food is getting stuck with swallowing on 04/06 -- Has had intermittent episodes of vomiting after taking pills throughout his hospital stay - much improved since dilation Has a h/o esophageal strictures requiring dilatation in 2017 He would not be able to withstand a barium swallow as he cannot stand up for more than a few seconds to a minute at a time Now s/p esophageal dilatation on 04/13 and 04/27 for severe restriction and doing much better with swallowing - Tolerating diet - Continue Prevacid (d/t soluble nature and issues with pill swallowing) - changed bigger pills to liquids (6) CKD (chronic kidney disease) stage 2, GFR 60-89 ml/min: Plan: - Renal function appears to be at baseline in this patient, continue to monitor periodically (7) Chronic hypoxemic respiratory failure: Plan: - chronic. No acute issues - continue O2 prn-none needed for weeks (8) COPD (chronic obstructive pulmonary disease) with chronic bronchitis: Plan: - Patient with a history of COPD, still smoking despite lung cancer diagnosis (granted has been inpatient for an extended period of time) - ? reoccurrence of non-small cell lung CA on imaging vs post-radiation changes - Trelegy (ICS/AC/LABA) as an outpatient -->substituted Anoro Ellipta (AC/LABA) and Arnuity Ellipta (ICS) while inpatient - Oxygenating well on room air - Supplemental oxygen as needed to maintain SaO2 between 88 and 92% -has not needed O2 in a long time - pulmonology consulted (previously followed w/ Dr. Morin), d/t pleural effusion on admission - has since signed off (9) History of lung cancer: Plan: - Hematology/oncology consulted - will sampler pickup again as an outpatient on discharge, however not sure if patient would be a good candidate for any treatment moving forward given noncompliance although now that he will be in a SNF environment, would be better - MRI brain w/wo contrast with no evidence of metastatic disease (10) Hyponatremia: Plan: - improved after starting hydrocortisone, however remains stable in range 128- low 130s, - last check at 129 and will monitor routinely - 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 Most recent TSH wnl 2.4 in March 2021 (11) Peripheral arterial disease: Plan: - Started on Plavix and STATIN (hold pending eval for thoracentesis) - if they ultimately do not want to do this can resume --> RESUMED PLAVIX 05/18, held in event of need for thora - History of aortofemoral bypass per prior notes (12) Bilateral carotid artery occlusion: Plan: - started Plavix and statin this admission - as above, resumed plavix 05/18 (13) Unstageable pressure ulcer of left heel: Plan: - no osteo continue local care (14) Bipolar disorder: Plan: stable - continue depakote but changed to liquid as tabs large and hard to swallow - continue reduced dose of seroquel and wellbutrin (15) Constipation: Plan: - bowel protocol ordered on board; adequate bowel movements - continue senna/docusate - Miralax PRN (16) Right shoulder pain: Plan: - Voltaren gel to right shoulder Plan: Disposition: Lives alone in [facility] and is quite debilitated (prolonged course of mobility issues) Working with case management. still looking for rehab placement-no beds available, multiple referrals out - however patient really wants to go home and no longer interested in rehab - Working on transfers to see if we can get him home with family support - has his home wheelchair here as he thinks he might be able to transfer better with that - Sister (EJ), ex-, and friend are in agreement to home with their support and home services - PT has been working on transfers as he has not been standing for quite some time - last eval he was able to transfer to wheelchair but could not transfer back Patient is making improvements but still needing assistance to get from bed to chair. Does well once in the chair, but needing additional assistance. Continued therapy while inpatient 05/23 --> 05/07 CM indicated coordination with [facility] coordinator for waiver services. Multiple days of missed phone calls per coordinator however call able to be arranged 05/22 --> believes able to provide additional help. working on arrangements. when arrangements made, patient to be discharged home with home health services CM FOLLOWING Given length of time inpatient, be mindful of medications timing out and dropping off MAR Admission and Anticipated Discharge Date Admission Date: March 20, 2021 Supervising Physician Co-Signing Physician Notes case d/w L Raffi PAC agree w above Subjective patient evaluated this morning using bedpan currently denies shortness of breath, fatigue, lightheadedness but does have some mild wheezing/rales on examination (some improved with cough). Denies any need for breathing treatment at this time but asked to alert nursing if any increased shortness of breath. Discussed checking cortisol in AM due to low BP -- he states this is always low and asymptomatic. Able to get extra care at home but needing to have this arranged and will be inpatient through the weekend. Frustrated with this but he does understand. Encouraged to continue to use incentive spirometer -- RN states patient "rolls their eyes" when asked to use. Review of Systems Review of Systems: All systems reviewed & are unremarkable except as noted in HPI & below Physical Exam Physical Exam: WD/WN, laying in bed, using bedpan, no acute distress Head normocephalic atraumatic , mm slightly dry Neck is without JVD, thyromegaly, or carotid bruits. Lungs: diminished in the bases L>R, no accessory muscle use, occasional cough (not productive), no crepitus, mild wheezing/rales appreciated, 96% on room air Cardiac: RRR, no m/r/g, no edema Extremities are nonedematous and both pedal pulses are present Neurologic exam is alert and oriented, no focal loss of strength or sensation Skin is without bruises or rashes Psychologically: AOx3, flat affect, laying in bed currently Results & Data Results & Data ([facility]) Vital Signs (Past 12 Hours) Vital Signs Temp Pulse Resp BP Pulse Ox 05/23/21 07:12 37.0 C 79 17 97/64 L 96 05/22/21 22:19 37.2 C 85 16 89/58 L 98 Diagnostic Findings 05/23/21 Range/Units 05:35 Sodium 129 L (136-145) mmol/L Potassium 4.1 (3.5-5.1) mmol/L Chloride 95 L (98-107) mmol/L Carbon Dioxide 26 (21-32) mmol/L Anion Gap 8.0 (3-11) BUN 13 (7-18) mg/dl Creatinine 0.52 L (0.6-1.4) mg/dl Est Cr Clr Drug Dosing 119.9 ml/min Est GFR ( Amer) 127.9 ml/min Est GFR (Non-Af Amer) 110.3 ml/min BUN/Creatinine Ratio 24.3 H (10-20) Glucose 83 (70-99) mg/dl Calcium 9.2 (8.5-10.1) mg/dl PG Care Time/CCT Total # of Minutes Spent Total Time Spent with Patient: Total time spent is greater than 50% in coordination of care (as documented) at patient's floor/unit and/or counseling patient: Coding Level of Care Code 48755 Subseq Hosp Care Lvl 2 Diagnoses Adrenal insufficiency E27.40 Recurrent left pleural effusion J90 Anemia D64.9 Hypotension I95.9 Dysphagia R13.10 CKD (chronic kidney disease) stage 2, GFR 60-89 ml/min N18.2 Chronic hypoxemic respiratory failure J96.11 COPD (chronic obstructive pulmonary disease) with chronic bronchitis J44.9 History of lung cancer Z85.118 Hyponatremia E87.1 Peripheral arterial disease I73.9 Bilateral carotid artery occlusion I65.23 Unstageable pressure ulcer of left heel L89.620 Bipolar disorder F31.9 Most recent bipolar episode type: most recent episode unspecified type Constipation K59.00 Right shoulder pain M25.511 (1) Bipolar disorder Most recent bipolar episode type: most recent episode unspecified type
[2021-05-23] MEDS ORDERED: LEVALBUTEROL HCL 0.63 MG/3 ML NEB NEB SCH (13:00)
[2021-05-23] MEDS ORDERED: IPRATROPIUM BROMIDE NEB SOLN 0.02% 2.5 ML VIAL INH SCH (13:00)
[2021-05-23] MEDS ORDERED: XOPENEX/ATROVENT 0.63mg/0.5MG NEB COMBO NEB SCH (13:00)
[2021-05-23] MEDS ORDERED: IPRATROPIUM BROMIDE NEB SOLN 0.02% 2.5 ML VIAL INH PRN (17:57)
[2021-05-23] MEDS ORDERED: LEVALBUTEROL HCL 0.63 MG/3 ML NEB NEB PRN (17:57)
[2021-05-23] MEDS: QUEtiapine FUMARATE 25 MG TABLET PO SCH (21:09)
[2021-05-23] MEDS: VALPROIC ACID SOLN 500 MG/10 ML UDC PO SCH (21:11)
[2021-05-24 07:15] LABS: Hematocrit (blood only) 32.5 % (42-52); Hemoglobin 10.7 g/dL (14.0-18.0); Mean Corpuscular Hgb Conc 32.9 g/dL (32-36); Mean Corpuscular Volume 79.1 fL (80-100); Mean Platelet Volume 8.4 fL (7.4-10.4); Platelet Count 463 K/uL (130-400); RDW Coefficient of Variation 18.2 % (11.5-14.5); RDW Standard Deviation 53.1 fL (36.4-46.3); Red Blood Count 4.11 M/uL (4.7-6.1); White Blood Count 9.26 K/uL (4.8-10.8)
[2021-05-24 07:43] LABS: BUN Creatinine Ratio 23.9 (10-20); Calcium 9.2 mg/dl (8.5-10.1); Creatinine Clr Calc Pharmacy 105.7 ml/min; Est GFR (African American) 121.4 ml/min; Est GFR (Non-African American) 104.8 ml/min; Potassium 4.3 mmol/L (3.5-5.1)
--- NOTE | 2021-05-24 08:13 | Hospitalist Progress Note ---
Date of Service May 24, 2021 Assessment & Plan (1) Adrenal insufficiency: Plan: Admitted with weakness, nausea, worsening hyponatremia, orthostatic hypotension ongoing for a long time Initial fasting AM cortisol earlier in hospital course was low normal at 5, but now repeat even lower at 3 and no use of steroids. Will repeat in AM given hypotension More of a chronic presentation CT abd/pel on 03/17/21 with normal adrenal glands; Brain MRI 03/18/21 normal Perhaps related to autoimmune disorder? On 04/22, started hydrocortisone 10mg in AM and 5mg in PM-significantly improved - Will need f/u as Endocrine as outpt - ACTH level is 10 and plasma renin activity 1.93 Prevacid for GI proph (2) Recurrent left pleural effusion: Plan: Patient remains afebrile - procalcitonin WNL --previous CXR and cough concerning for possible PNA however CTA more suggestive of worsening pleural effusion - still not requiring supplemental O2 --since no defined pneumonia put on Doxycycline x 7 days, to be completed 05/23 Repeat CXR No significant change compared to the prior study. Perihilar airspace opacities and a moderate left pleural effusion persists. 96% on RA and no respiratory distress. Lungs sound improved on examination based on previous documentation. --> CXR 05/20 with mod L effusion with consolidation from effusions/laying --> a t risk for loculation however asymptomatic and would not want any tx if malignant Pulmonology consulted/signed off - discussed with pulm for consideration for tap as BP may limited diuretics and may not be that beneficial given the chronic nature of his effusion; no indication for thoracentesis per pulmonary med as no need for supplemental O2; has required thoracentesis in the past --> would need to hold plavix if changes mind/convene earlier if patient becomes symptomatic but he has no fever, cough, or shortness of breath reported. will try lasix 20mg po x 1 05/21, however BP does limit diuretic use ( 99/64 AM of 05/22 but asymptomatic) --> CXR 05/22 with stable effusion with underlying airspace opacity compatible with atelectasis, pneumonia, and/or aspiration. Continue incentive spirometer -- has not been using much 05/24 -- mild wheezing/rales anterior L chest on exam. Denies cough/sputum production and continued encouragement of incentive spirometer 93% on RA Rechecked iron studies given MCV <80. Iron low and trans % sat low (on ferosol BID) --> scheduling Venofer for today and tomorrow. Monitor blood counts. Enough iron to mount ferritin response but still deficient given the % sat and expect that should help with sob/anemia as well --> Xopenex prn --> Encouraged continued use of incentive spirometer/flutter valve Will hold Plavix in event patient need thoracentesis Is at risk for loculation/pneumonia given size of effusion. Would add broader spectrum abx if febrile/developed productive cough. CXR with stable, unchanged effusion (3) Anemia: Plan: - hgb was 7.3 on arrival -- up to 10s without intervention/no transfusion- has waxed and waned between 8-10. Most likely margin of error in the lab - Microcytic - stool for occult blood negative x 2 - Did have a W/U and Seen by established messaging architect/oncologist-- started on Ferrous sulfate/folic acid - EGD on 04/13 - dilated esophagus due to benign appearing esophageal stenosis; gastritis with biopsy obtained - repeated endoscopy for retreatment on 04/27/21 - Pathology - chronic gastritis, mild; neg H. pylori, no metaplasia, dysplasia, or malignancy hgb 10.7, MCV 79.1 Repeat iron studies --> iron deficiency on chronic disease --> Venofer 300mg x1 05/24, repeat tomorrow. Monitor CBC (4) Hypotension: Plan: - Initially thought secondary to Seroquel and metoprolol side effect - Improved w/ hydrocortisone, and dc of home metoprolol - Pt has since been weaned off Midodrine - BPs stable , hypotension 97/64 but stable, asymptomatic and likely from lasix use for above but will also check cortisol AM (pending) as well/adjustment of steroids if needed above (5) Dysphagia: Plan: Had complaint of feeling like food is getting stuck with swallowing on 04/06 -- Has had intermittent episodes of vomiting after taking pills throughout his hospital stay - much improved since dilation Has a h/o esophageal strictures requiring dilatation in 2017 He would not be able to withstand a barium swallow as he cannot stand up for more than a few seconds to a minute at a time Now s/p esophageal dilatation on 04/13 and 04/27 for severe restriction and doing much better with swallowing - Tolerating diet - Continue Prevacid (d/t soluble nature and issues with pill swallowing) -- consider increasing to BID while on steroids for adrenal insufficiency - changed bigger pills to liquids (6) CKD (chronic kidney disease) stage 2, GFR 60-89 ml/min: Plan: - Renal function appears to be at baseline in this patient, continue to monitor periodically (7) Chronic hypoxemic respiratory failure: Plan: - chronic. No acute issues - continue O2 prn-none needed for weeks (8) COPD (chronic obstructive pulmonary disease) with chronic bronchitis: Plan: - Patient with a history of COPD, still smoking despite lung cancer diagnosis (granted has been inpatient for an extended period of time) - ? reoccurrence of non-small cell lung CA on imaging vs post-radiation changes - Trelegy (ICS/AC/LABA) as an outpatient -->substituted Anoro Ellipta (AC/LABA) and Arnuity Ellipta (ICS) while inpatient - Oxygenating well on room air - Supplemental oxygen as needed to maintain SaO2 between 88 and 92% -has not needed O2 in a long time - pulmonology consulted (previously followed w/ Dr. Morin), d/t pleural effusion on admission - has since signed off (9) History of lung cancer: Plan: - Hematology/oncology consulted - will order picker again as an outpatient on discharge, however not sure if patient would be a good candidate for any treatment moving forward given noncompliance although now that he will be in a SNF environment, would be better - MRI brain w/wo contrast with no evidence of metastatic disease (10) Hyponatremia: Plan: - improved after starting hydrocortisone, however remains stable in range 128- low 130s, - last check at 129 and will monitor routinely - 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 Most recent TSH wnl 2.4 in March 2021 (11) Peripheral arterial disease: Plan: - Started on Plavix and STATIN (hold pending eval for thoracentesis) - if they ultimately do not want to do this can resume --> RESUMED PLAVIX 05/18, held in event of need for thora - History of aortofemoral bypass per prior notes (12) Bilateral carotid artery occlusion: Plan: - started Plavix and statin this admission - as above, plavix if no concerns for thoracenetesis (13) Unstageable pressure ulcer of left heel: Plan: - no osteo continue local care (14) Bipolar disorder: Plan: stable - continue depakote but changed to liquid as tabs large and hard to swallow - continue reduced dose of seroquel and wellbutrin (15) Constipation: Plan: - bowel protocol ordered on board; adequate bowel movements - continue senna/docusate - Miralax PRN (16) Right shoulder pain: Plan: - Voltaren gel to right shoulder Plan: Disposition: Lives alone in [facility] and is quite debilitated (prolonged course of mobility issues) Working with case management. still looking for rehab placement-no beds available, multiple referrals out - however patient really wants to go home and no longer interested in rehab - Working on transfers to see if we can get him home with family support - has his home wheelchair here as he thinks he might be able to transfer better with that - Sister (EJ), ex-, and friend are in agreement to home with their support and home services - PT has been working on transfers as he has not been standing for quite some time - last eval he was able to transfer to wheelchair but could not transfer back Patient is making improvements but still needing assistance to get from bed to chair. Does well once in the chair, but needing additional assistance. Continued therapy while inpatient 05/23 --> 05/07 CM indicated coordination with [facility] coordinator for waiver services. Multiple days of missed phone calls per coordinator however call able to be arranged 05/22 --> believes able to provide additional help. working on arrangements. when arrangements made, patient to be discharged home with home health services CM FOLLOWING Venofer 05/24, repeat in AM. Cortisol AM pending, adjustment of steroids pending result Given length of time inpatient, be mindful of medications timing out and dropping off MAR Admission and Anticipated Discharge Date Admission Date: March 20, 2021 Supervising Physician Co-Signing Physician Notes case d/w L Raffi PAC agree w above Subjective patient evaluated this morning. had been attempting slide board transfer yesterday and soiled himself which was frustrating. he was up in chair and assisted back to bed. denied shortness of breath or chest pain -- discussed low iron studies w/ attending and will order venofer some wheezing/rales to anterior L chest, no other issues. Encouraged use of IS. COrtisol AM pending. Denies any fever, chills, lightheadedness, dizziness, or abdominal pain/nausea at this time. Awaiting caregivers to be arranged for d/c to home. Review of Systems Review of Systems: All systems reviewed & are unremarkable except as noted in HPI & below Physical Exam Physical Exam: WD/WN, sitting up in wheelchair at bedside, using bedpan, no acute distress, fatigued appearing Head normocephalic atraumatic , mm slightly dry Neck is without JVD, thyromegaly, or carotid bruits. Lungs: diminished in the bases L>R, anterior wheezing/rales, no crackles, 93% on RA Cardiac: RRR, no m/r/g, no edema Extremities are nonedematous and both pedal pulses are present Neurologic exam is alert and oriented, no focal loss of strength or sensation Skin is without bruises or rashes Psychologically: AOx3, flat affect Results & Data Results & Data ([facility]) Vital Signs (Past 12 Hours) Vital Signs Temp Pulse Resp BP Pulse Ox 05/24/21 07:33 37.0 C 87 19 92/60 L 93 05/23/21 21:18 36.5 C 95 H 18 110/70 97 Laboratory Results 05/24/21 05/24/21 05/24/21 Range/Units 06:54 06:54 06:54 WBC 9.26 (4.8-10.8) K/uL RBC 4.11 L (4.7-6.1) M/uL Hgb 10.7 L (14.0-18.0) g/dL Hct 32.5 L (42-52) % MCV 79.1 L (80-100) fL MCH 26.0 (25-34) pg MCHC 32.9 (32-36) g/dL RDW Std Deviation 53.1 H (36.4-46.3) fL RDW Coeff of Raul 18.2 H (11.5-14.5) % Plt Count 463 H (130-400) K/uL MPV 8.4 (7.4-10.4) fL Sodium 127 L (136-145) mmol/L Potassium 4.3 (3.5-5.1) mmol/L Chloride 93 L (98-107) mmol/L Carbon Dioxide 26 (21-32) mmol/L Anion Gap 8.0 (3-11) BUN 14 (7-18) mg/dl Creatinine 0.59 L (0.6-1.4) mg/dl Est Cr Clr Drug Dosing 105.7 ml/min Est GFR ( Amer) 121.4 ml/min Est GFR (Non-Af Amer) 104.8 ml/min BUN/Creatinine Ratio 23.9 H (10-20) Glucose 77 (70-99) mg/dl Calcium 9.2 (8.5-10.1) mg/dl Cortisol AM Sample Pending Diagnostic Findings Chest X-Ray 05/24/21 08:00 XR chest 2V PA/lateral HISTORY: 66 years-old Male f/u effusions/atelectasis follow-up study in a patient with left pleural effusion and bilateral pulmonary opacities COMPARISON: Chest radiographs 05/22/2021, 05/20/2021 TECHNIQUE: PA and lateral views of the chest FINDINGS: Cardiomegaly. Unchanged moderate to large left pleural effusion with left lung airspace opacities and volume loss. Perihilar fibrosis with interstitial coarsening of the lungs redemonstrated. No pneumothorax. Degenerative changes of the shoulders and spine. IMPRESSION: 1. Unchanged moderate to large left pleural effusion with left lung consolidation. 2. Bilateral perihilar densities suggestive of fibrosis. ACT 112: Negative or not required by law. The above report was generated using voice recognition software. It may contain grammatical, syntax or spelling errors. Electronically signed by: Александр Moore M.D. 05/24/2021 9:33 AM PG Care Time/CCT Total # of Minutes Spent Total Time Spent with Patient: Total time spent is greater than 50% in coordination of care (as documented) at patient's floor/unit and/or counseling patient: Coding Level of Care Code 85328 Subseq Hosp Care Lvl 2 Diagnoses Adrenal insufficiency E27.40 Recurrent left pleural effusion J90 Anemia D64.9 Hypotension I95.9 Dysphagia R13.10 CKD (chronic kidney disease) stage 2, GFR 60-89 ml/min N18.2 Chronic hypoxemic respiratory failure J96.11 COPD (chronic obstructive pulmonary disease) with chronic bronchitis J44.9 History of lung cancer Z85.118 Hyponatremia E87.1 Peripheral arterial disease I73.9 Bilateral carotid artery occlusion I65.23 Unstageable pressure ulcer of left heel L89.620 Bipolar disorder F31.9 Most recent bipolar episode type: most recent episode unspecified type Constipation K59.00 Right shoulder pain M25.511 (1) Bipolar disorder Most recent bipolar episode type: most recent episode unspecified type
[2021-05-24] MEDS: FERROUS SULFATE ELIX 220MG/5ML PO SCH (08:55)
[2021-05-24] MEDS: MICONAZOLE NITRATE POWDER 43 GM EXT SCH ×2 (08:56→20:59)
[2021-05-24] MEDS: UMECLIDINIUM/VILANTEROL 62.5/25MCG 7 PUFFS/INHALER INH SCH (08:57)
[2021-05-24] MEDS: FLUTICASONE FUROATE 100MCG 14 PUFFS/INHALER INH SCH (08:57)
[2021-05-24] MEDS: VALPROIC ACID SOLN 250 MG/5 ML UDC PO SCH (08:57)
[2021-05-24] MEDS: FOLIC ACID 1 MG TAB PO SCH (08:58)
[2021-05-24] MEDS: CHOLECALCIFEROL 1,000 UNITS 25 MCG TAB PO SCH (08:58)
[2021-05-24] MEDS: ATORVASTATIN 40 MG TAB PO SCH (08:58)
[2021-05-24] MEDS: buPROPion HCl 100 MG TABLET PO SCH (08:58)
[2021-05-24] MEDS: ASCORBIC ACID 500 MG TAB PO SCH ×2 (08:58→20:58)
[2021-05-24] MEDS: LANSOPRAZOLE 30 MG SOLTAB PO SCH (08:59)
--- NOTE | 2021-05-24 09:34 | XRay Report ---
XR chest 2V PA/lateral HISTORY: 66 years-old Male f/u effusions/atelectasis follow-up study in a patient with left pleural effusion and bilateral pulmonary opacities COMPARISON: Chest radiographs 05/22/2021, 05/20/2021 TECHNIQUE: PA and lateral views of the chest FINDINGS: Cardiomegaly. Unchanged moderate to large left pleural effusion with left lung airspace opacities and volume loss. Perihilar fibrosis with interstitial coarsening of the lungs redemonstrated. No pneumot horax. Degenerative changes of the shoulders and spine. IMPRESSION: 1. Unchanged moderate to large left pleural effusion with left lung consolidation. 2. Bilateral perihilar densities suggestive of fibrosis. ACT 112: Negative or not required by law. The above report was generated using voice recognition software. It may contain grammatical, syntax o r spelling errors. Electronically signed by: Александр Moore M.D. 05/24/2021 9:33 AM
[2021-05-24] MEDS ORDERED: IRON SUCROSE 300 MG in SODIUM CHLORIDE 0.9% 250 ML IV ONE (11:00)
[2021-05-24] MEDS ORDERED: FERROUS SULFATE ELIX 220MG/5ML PO SCH (12:00)
[2021-05-24] MEDS: HYDROCORTISONE 10 MG TAB PO SCH (13:00)
[2021-05-24] MEDS ORDERED: HYDROCORTISONE 10 MG TAB PO SCH (15:00)
[2021-05-24] MEDS ORDERED: HYDROCORTISONE 10 MG TAB PO ONE (16:00)
[2021-05-24] MEDS: QUEtiapine FUMARATE 25 MG TABLET PO SCH (20:58)
[2021-05-24] MEDS: VALPROIC ACID SOLN 500 MG/10 ML UDC PO SCH (20:58)
[2021-05-25 08:01] LABS: Basophils # (auto) 0.01 K/uL (0-0.2); Basophils % (auto) 0.1 %; Eosinophils # (auto) 0.06 K/uL (0-0.5); Eosinophils % (auto) 0.6 %; Hematocrit (blood only) 28.8 % (42-52); Hemoglobin 9.2 g/dL (14.0-18.0); Lymphocytes # (auto) 1.25 K/uL (1.2-3.4); Lymphocytes % (auto) 12.1 %; Mean Corpuscular Hemoglobin 25.5 pg (25-34); Mean Corpuscular Hgb Conc 31.9 g/dL (32-36); Mean Corpuscular Volume 79.8 fL (80-100); Mean Platelet Volume 8.4 fL (7.4-10.4); Monocytes # (auto) 0.58 K/uL (0.11-0.59); Monocytes % (auto) 5.6 %; Neutrophils # (auto) 8.33 K/uL (1.4-6.5); Neutrophils % (auto) 80.6 %; Platelet Count 471 K/uL (130-400); RDW Coefficient of Variation 18.2 % (11.5-14.5); RDW Standard Deviation 53.7 fL (36.4-46.3); Red Blood Count 3.61 M/uL (4.7-6.1); White Blood Count 10.33 K/uL (4.8-10.8)
--- NOTE | 2021-05-25 08:29 | XRay Report ---
XR chest 2V PA/lateral HISTORY: 66 years-old Male f/u effusion, consolidation follow-up study in a patient with pleural eff usion COMPARISON: Chest radiographs 05/24/2021 TECHNIQUE: PA and lateral views of the chest FINDINGS: Cardiomegaly. Mildly increased size of the moderate to large left pleural effusion with left lung air space opacities and volume loss. Perihilar fibrosis with interstitial coarsening of the lungs redemon strated. No pneumothorax. Trace right pleural effusion. Pulmonary vascular congestion with interstiti al coarsening is new from prior. Degenerative changes of the shoulders and spine. IMPRESSION: 1. Cardiomegaly with pulmonary vascular congestion and interstitial coarsening suggestive of pulmonar y edema. 2. Mildly increased size of the moderate to large left pleural effusion with left lung consolidation. 3. Bilateral perihilar densities suggestive of fibrosis. 4. Trace right pleural effusion. ACT 112: Negative or not required by law. The above report was generated using voice recognition software. It may contain grammatical, syntax o r spelling errors. Electronically signed by: Александр Moore M.D. 05/25/2021 8:28 AM
[2021-05-25 08:30] LABS: Calcium 9.1 mg/dl (8.5-10.1); Creatinine Clr Calc Pharmacy 111.3 ml/min; Est GFR (African American) 124.1 ml/min
[2021-05-25] MEDS: UMECLIDINIUM/VILANTEROL 62.5/25MCG 7 PUFFS/INHALER INH SCH (09:25)
[2021-05-25] MEDS: ASCORBIC ACID 500 MG TAB PO SCH ×2 (09:26→20:14)
[2021-05-25] MEDS: FOLIC ACID 1 MG TAB PO SCH (09:27)
[2021-05-25] MEDS: LANSOPRAZOLE 30 MG SOLTAB PO SCH (09:27)
[2021-05-25] MEDS: MICONAZOLE NITRATE POWDER 43 GM EXT SCH ×2 (09:28→20:14)
[2021-05-25] MEDS: CHOLECALCIFEROL 1,000 UNITS 25 MCG TAB PO SCH (09:29)
[2021-05-25] MEDS: FLUTICASONE FUROATE 100MCG 14 PUFFS/INHALER INH SCH (09:29)
[2021-05-25] MEDS: buPROPion HCl 100 MG TABLET PO SCH (09:30)
[2021-05-25] MEDS: ATORVASTATIN 40 MG TAB PO SCH (09:30)
[2021-05-25] MEDS: HYDROCORTISONE 10 MG TAB PO SCH ×2 (09:31→15:05)
[2021-05-25] MEDS: VALPROIC ACID SOLN 250 MG/5 ML UDC PO SCH (09:31)
[2021-05-25] MEDS ORDERED: HYDROCORTISONE 10 MG TAB PO ONE (09:34)
[2021-05-25] MEDS ORDERED: IRON SUCROSE 300 MG in SODIUM CHLORIDE 0.9% 250 ML IV ONE (11:00)
[2021-05-25] MEDS ORDERED: HYDROCORTISONE 10 MG TAB PO SCH (15:00)
--- NOTE | 2021-05-25 20:03 | Hospitalist Progress Note ---
Date of Service May 25, 2021 Assessment & Plan (1) Adrenal insufficiency: Plan: Blood pressure still running a little bit on the low sideasymptomatic, but with everything that has been through, I wonder if he still needs a degree of stress dosinghydrocortisone increased to 20 in the morning/10 in the afternooncontinue to follow. Admitted with weakness, nausea, worsening hyponatremia, orthostatic hypotension ongoing for a long time Initial fasting AM cortisol earlier in hospital course was low normal at 5, but now repeat even lower at 3 and no use of steroids. Will repeat in AM given hypotension More of a chronic presentation CT abd/pel on 03/17/21 with normal adrenal glands; Brain MRI 03/18/21 normal Perhaps related to autoimmune disorder? On 04/22, started hydrocortisone 10mg in AM and 5mg in PM-significantly improved - Will need f/u as Endocrine as outpt - ACTH level is 10 and plasma renin activity 1.93 Prevacid for GI proph (2) Recurrent left pleural effusion: Plan: Patient remains afebrile - procalcitonin WNL --previous CXR and cough concerning for possible PNA however CTA more suggestive of worsening pleural effusion - still not requiring supplemental O2 --since no defined pneumonia put on Doxycycline x 7 days, was completed on 05/23 Repeat CXR No significant change compared to the prior study. Perihilar airspace opacities and a moderate left pleural effusion persists. 96% on RA and no respiratory distress. Lungs sound improved on examination based on previous documentation. --> CXR 05/20 with mod L effusion with consolidation from effusions/laying --> at risk for loculation however asymptomatic and would not want any tx if malignant Pulmonology consulted/signed off - discussed with pulm for consideration for tap as BP may limited diuretics and may not be that beneficial given the chronic nature of his effusion; no indication for thoracentesis per pulmonary med as no need for supplemental O2; has required thoracentesis in the past --> would need to hold plavix if changes mind/convene earlier if patient becomes symptomatic but he has no fever, cough, or shortness of breath reported. will try lasix 20mg po x 1 05/21, however BP does limit diuretic use ( 99/64 AM of 05/22 but asymptomatic) --> CXR 05/22 with stable effusion with underlying airspace opacity compatible with atelectasis, pneumonia, and/or aspiration. Continue incentive spirometer -- has not been using much 05/24 -- mild wheezing/rales anterior L chest on exam. Denies cough/sputum production and continued encouragement of incentive spirometer 93% on RA Rechecked iron studies given MCV <80. Iron low and trans % sat low (on ferosol BID) --> got a dose of Venofer yesterday and today. Monitor blood counts periodically l --> Xopenex prn --> Encouraged continued use of incentive spirometer/flutter valve Will hold Plavix in event patient need thoracentesis (3) Anemia: Plan: - hgb was 7.3 on arrival -- up to 10s without intervention/no transfusion- has waxed and waned between 8-10. Most likely margin of error in the lab - Microcytic - stool for occult blood negative x 2 - Did have a W/U and Seen by established land lease information clerk/oncologist-- started on Ferrous sulfate/folic acid - EGD on 04/13 - dilated esophagus due to benign appearing esophageal stenosis; gastritis with biopsy obtained - repeated endoscopy for retreatment on 04/27/21 - Pathology - chronic gastritis, mild; neg H. pylori, no metaplasia, dysplasia, or malignancy hgb 10.7, MCV 79.1 Repeat iron studies --> iron deficiency on chronic disease --> Venofer given, continue to follow iron stores periodically, follow periodic CBC. (4) Hypotension: Plan: - Initially thought secondary to Seroquel and metoprolol side effect - Improved w/ hydrocortisone, and dc of home metoprolol - Pt has since been weaned off Midodrine -With blood pressure still little bit on the low side this morning, and everything is been through, steroids increased to a degree of stress dosing for now. (5) Dysphagia: Plan: Had complaint of feeling like food is getting stuck with swallowing on 04/06 -- Has had intermittent episodes of vomiting after taking pills throughout his hospital stay - much improved since dilation Has a h/o esophageal strictures requiring dilatation in 2017 He would not be able to withstand a barium swallow as he cannot stand up for more than a few seconds to a minute at a time Now s/p esophageal dilatation on 04/13 and 04/27 for severe restriction and doing much better with swallowing - Tolerating diet - Continue Prevacid (d/t soluble nature and issues with pill swallowing) -- consider increasing to BID while on steroids for adrenal insufficiency - changed bigger pills to liquids (6) CKD (chronic kidney disease) stage 2, GFR 60-89 ml/min: Plan: - Renal function appears to be at baseline in this patient, continue to monitor periodically (7) Chronic hypoxemic respiratory failure: Plan: - chronic. No acute issues - continue O2 prn-none needed for weeks (8) COPD (chronic obstructive pulmonary disease) with chronic bronchitis: Plan: - Patient with a history of COPD, still smoking despite lung cancer diagnosis (granted has been inpatient for an extended period of time) - ? reoccurrence of non-small cell lung CA on imaging vs post-radiation changes - Trelegy (ICS/AC/LABA) as an outpatient -->substituted Anoro Ellipta (AC/LABA) and Arnuity Ellipta (ICS) while inpatient - Oxygenating well on room air - Supplemental oxygen as needed to maintain SaO2 between 88 and 92% -has not needed O2 in a long time - pulmonology consulted (previously followed w/ Dr. 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 Most recent TSH wnl 2.4 in March 2021 (11) Peripheral arterial disease: Plan: - Started on Plavix and STATIN (hold pending eval for thoracentesis) - if they ultimately do not want to do this can resume --> RESUMED PLAVIX 05/18 - History of aortofemoral bypass per prior notes (12) Bilateral carotid artery occlusion: Plan: - started Plavix and statin this admission - as above, plavix if no concerns for thoracenetesis (13) Unstageable pressure ulcer of left heel: Plan: - no osteo continue local care (14) Bipolar disorder: Plan: stable - continue depakote but changed to liquid as tabs large and hard to swallow - continue reduced dose of seroquel and wellbutrin (15) Constipation: Plan: - bowel protocol ordered on board; adequate bowel movements - continue senna/docusate - Miralax PRN (16) Right shoulder pain: Plan: - Voltaren gel to right shoulder Plan: Disposition: Lives alone in [facility] and is quite debilitated (prolonged course of mobility issues) Working with case management. still looking for rehab placement-no beds available, multiple referrals out - however patient really wants to go home and no longer interested in rehab - Working on transfers to see if we can get him home with family support - has his home wheelchair here as he thinks he might be able to transfer better with that - Sister (EJ), ex-, and friend are in agreement to home with their support and home services - PT has been working on transfers as he has not been standing for quite some time - last eval he was able to transfer to wheelchair but could not transfer back Patient is making improvements but still needing assistance to get from bed to chair. Does well once in the chair, but needing additional assistance. Continued therapy while inpatient 05/23 --> 05/07 CM indicated coordination with [facility] coordinator for waiver services. Multiple days of missed phone calls per coordinator however call able to be arranged 05/22 --> believes able to provide additional help. working on arrangements. when arrangements made, patient to be discharged home with home health services CM FOLLOWING Venofer 05/24, repeat in AM. Cortisol AM pending, adjustment of steroids pending result Given length of time inpatient, be mindful of medications timing out and dropping off MAR Admission and Anticipated Discharge Date Admission Date: March 20, 2021 Subjective Only complains of wanting to go home. Is aware that they are working on getting him more care at home, and understands that he cannot really go home until he has enough support. No other complaints. Not weak/lightheaded/dizzy. Review of Systems Review of Systems: All systems reviewed & are unremarkable except as noted in HPI & below Physical Exam Physical Exam: In general he is awake and alert pleasant no distress. HEENT normocephalic atraumatic mucous membranes moist. Breathing unlabored no accessory muscle use good effort. Skin shows no rashes no pallor or icterus. Neuro without focal deficits. Results & Data Results & Data ([facility]) Vital Signs (Past 12 Hours) Vital Signs Temp Pulse Pulse Resp BP Pulse Ox 05/25/21 15:24 97.3 F L 90 16 100/64 96 05/25/21 13:34 97.5 F L 97 H 18 90/57 L 98 05/25/21 12:03 97.7 F 91 H 16 92/59 L 96 05/25/21 11:11 97.5 F L 95 H 16 87/53 L 97 05/25/21 08:24 98.8 F 82 16 84/49 L 91 PG Care Time/CCT Total # of Minutes Spent Total Time Spent with Patient: Total time spent is greater than 50% in coordination of care (as documented) at patient's floor/unit and/or counseling patient: Coding Level of Care Code 19619 Subseq Hosp Care Lvl 1 Diagnoses Adrenal insufficiency E27.40 Recurrent left pleural effusion J90 Anemia D64.9 Hypotension I95.9 Dysphagia R13.10 CKD (chronic kidney disease) stage 2, GFR 60-89 ml/min N18.2 Chronic hypoxemic respiratory failure J96.11 COPD (chronic obstructive pulmonary disease) with chronic bronchitis J44.9 History of lung cancer Z85.118 Hyponatremia E87.1 Peripheral arterial disease I73.9 Bilateral carotid artery occlusion I65.23 Unstageable pressure ulcer of left heel L89.620 Bipolar disorder F31.9 Most recent bipolar episode type: most recent episode unspecified type Constipation K59.00 Right shoulder pain M25.511 (1) Bipolar disorder Most recent bipolar episode type: most recent episode unspecified type
[2021-05-25] MEDS: VALPROIC ACID SOLN 500 MG/10 ML UDC PO SCH (20:14)
[2021-05-25] MEDS: QUEtiapine FUMARATE 25 MG TABLET PO SCH (20:14)
[2021-05-26] MEDS: LANSOPRAZOLE 30 MG SOLTAB PO SCH (09:59)
[2021-05-26] MEDS: CHOLECALCIFEROL 1,000 UNITS 25 MCG TAB PO SCH (10:00)
[2021-05-26] MEDS: HYDROCORTISONE 10 MG TAB PO SCH ×2 (10:00→16:42)
[2021-05-26] MEDS: buPROPion HCl 100 MG TABLET PO SCH (10:00)
[2021-05-26] MEDS: ASCORBIC ACID 500 MG TAB PO SCH ×2 (10:00→19:33)
[2021-05-26] MEDS: FOLIC ACID 1 MG TAB PO SCH (10:01)
[2021-05-26] MEDS: FLUTICASONE FUROATE 100MCG 14 PUFFS/INHALER INH SCH (10:01)
[2021-05-26] MEDS: ATORVASTATIN 40 MG TAB PO SCH (10:01)
[2021-05-26] MEDS: VALPROIC ACID SOLN 250 MG/5 ML UDC PO SCH (10:03)
[2021-05-26] MEDS: UMECLIDINIUM/VILANTEROL 62.5/25MCG 7 PUFFS/INHALER INH SCH (10:04)
[2021-05-26] MEDS: MICONAZOLE NITRATE POWDER 43 GM EXT SCH ×2 (10:05→19:33)
[2021-05-26] MEDS: ACETAMINOPHEN 500 MG TAB PO PRN (10:18)
--- NOTE | 2021-05-26 17:50 | Hospitalist Progress Note ---
Date of Service May 26, 2021 Assessment & Plan (1) Adrenal insufficiency: Plan: Blood pressure still running a little bit on the low sideasymptomatic, but with everything that has been through, I wonder if he still needs a degree of stress dosinghydrocortisone increased to 20 in the morning/10 in the afternooncontinue to follow. Admitted with weakness, nausea, worsening hyponatremia, orthostatic hypotension ongoing for a long time More of a chronic presentation CT abd/pel on 03/17/21 with normal adrenal glands; Brain MRI 03/18/21 normal Perhaps related to autoimmune disorder? On 04/22, started hydrocortisone 10mg in AM and 5mg in PM-significantly improved - Will need f/u as Endocrine as outpt Prevacid for GI proph (2) Recurrent left pleural effusion: Plan: Patient remains afebrile - procalcitonin WNL --previous CXR and cough concerning for possible PNA however CTA more suggestive of worsening pleural effusion - still not requiring supplemental O2 --since no defined pneumonia put on Doxycycline x 7 days, was completed on 05/23 Repeat CXR No significant change compared to the prior study. Perihilar airspace opacities and a moderate left pleural effusion persists. 96% on RA and no respiratory distress. Lungs sound improved on examination based on previous documentation. --> CXR 05/20 with mod L effusion with consolidation from effusions/laying --> at risk for loculation however asymptomatic and would not want any tx if malignant Pulmonology consulted/signed off - discussed with pulm for consideration for tap as BP may limited diuretics and may not be that beneficial given the chronic nature of his effusion; no indication for thoracentesis per pulmonary med as no need for supplemental O2; has required thoracentesis in the past --> would need to hold plavix if changes mind/convene earlier if patient becomes symptomatic but he has no fever, cough, or shortness of breath reported. will try lasix 20mg po x 1 05/21, however BP does limit diuretic use ( 99/64 AM of 05/22 but asymptomatic) --> CXR 05/22 with stable effusion with underlying airspace opacity compatible with atelectasis, pneumonia, and/or aspiration. Continue incentive spirometer -- has not been using much 05/24 -- mild wheezing/rales anterior L chest on exam. Denies cough/sputum production and continued encouragement of incentive spirometer 93% on RA Rechecked iron studies given MCV <80. Iron low and trans % sat low (on ferosol BID) --> got a dose of Venofer x2. Monitor blood counts periodically l --> Xopenex prn --> Encouraged continued use of incentive spirometer/flutter valve Will hold Plavix in event patient need thoracentesis (3) Anemia: Plan: - hgb was 7.3 on arrival -- up to 10s without intervention/no transfusion- has waxed and waned between 8-10. Most likely margin of error in the lab - Microcytic - stool for occult blood negative x 2 - Did have a W/U and Seen by established optics engineer/oncologist-- started on Ferrous sulfate/folic acid - EGD on 04/13 - dilated esophagus due to benign appearing esophageal stenosis; gastritis with biopsy obtained - repeated endoscopy for retreatment on 04/27/21 - Pathology - chronic gastritis, mild; neg H. pylori, no metaplasia, dysplasia, or malignancy hgb 10.7, MCV 79.1 Repeat iron studies --> iron deficiency on chronic disease --> Venofer given, continue to follow iron stores periodically, follow periodic CBC. (4) Hypotension: Plan: - Initially thought secondary to Seroquel and metoprolol side effect - Improved w/ hydrocortisone, and dc of home metoprolol - Pt has since been weaned off Midodrine -With blood pressure still little bit on the low side this morning, and everything is been through, steroids increased to a degree of stress dosing for now. (5) Dysphagia: Plan: Had complaint of feeling like food is getting stuck with swallowing on 04/06 -- Has had intermittent episodes of vomiting after taking pills throughout his hospital stay - much improved since dilation Has a h/o esophageal strictures requiring dilatation in 2017 He would not be able to withstand a barium swallow as he cannot stand up for more than a few seconds to a minute at a time Now s/p esophageal dilatation on 04/13 and 04/27 for severe restriction and doing much better with swallowing - Tolerating diet - Continue Prevacid (d/t soluble nature and issues with pill swallowing) -- consider increasing to BID while on steroids for adrenal insufficiency - changed bigger pills to liquids (6) CKD (chronic kidney disease) stage 2, GFR 60-89 ml/min: Plan: - Renal function appears to be at baseline in this patient, continue to monitor periodically (7) Chronic hypoxemic respiratory failure: Plan: - chronic. No acute issues - continue O2 prn-none needed for weeks (8) COPD (chronic obstructive pulmonary disease) with chronic bronchitis: Plan: - Patient with a history of COPD, still smoking despite lung cancer diagnosis (granted has been inpatient for an extended period of time) - ? reoccurrence of non-small cell lung CA on imaging vs post-radiation changes - Trelegy (ICS/AC/LABA) as an outpatient -->substituted Anoro Ellipta (AC/LABA) and Arnuity Ellipta (ICS) while inpatient - Oxygenating well on room air - Supplemental oxygen as needed to maintain SaO2 between 88 and 92% -has not needed O2 in a long time - pulmonology consulted (previously followed w/ Dr. 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 Most recent TSH wnl 2.4 in March 2021 (11) Peripheral arterial disease: Plan: - Started on Plavix and STATIN (hold pending eval for thoracentesis) - if they ultimately do not want to do this can resume --> RESUMED PLAVIX 05/18 - History of aortofemoral bypass per prior notes (12) Bilateral carotid artery occlusion: Plan: - started Plavix and statin this admission - as above, plavix if no concerns for thoracenetesis (13) Unstageable pressure ulcer of left heel: Plan: - no osteo continue local care (14) Bipolar disorder: Plan: stable - continue depakote but changed to liquid as tabs large and hard to swallow - continue reduced dose of seroquel and wellbutrin (15) Constipation: Plan: - bowel protocol ordered on board; adequate bowel movements - continue senna/docusate - Miralax PRN (16) Right shoulder pain: Plan: - Voltaren gel to right shoulder Plan: Disposition: Lives alone in [facility] and is quite debilitated (prolonged course of mobility issues) Working with case management. still looking for rehab placement-no beds available, multiple referrals out - however patient really wants to go home and no longer interested in rehab - Working on transfers to see if we can get him home with family support - has his home wheelchair here as he thinks he might be able to transfer better with that - Sister (EJ), ex-, and friend are in agreement to home with their support and home services - PT has been working on transfers as he has not been standing for quite some time - last eval he was able to transfer to wheelchair but could not transfer back Patient is making improvements but still needing assistance to get from bed to chair. Does well once in the chair, but needing additional assistance. Continued therapy while inpatient 05/23 --> 05/07 CM indicated coordination with [facility] coordinator for waiver services. Multiple days of missed phone calls per coordinator however call able to be arranged 05/22 --> believes able to provide additional help. working on arrangements. when arrangements made, patient to be discharged home with home health services CM FOLLOWING Ousmaneofer 05/24, repeat in AM. Cortisol AM pending, adjustment of steroids pending result Given length of time inpatient, be mindful of medications timing out and droppi ng off AUG Admission and Anticipated Discharge Date Admission Date: March 20, 2021 Subjective no new complaints no dizzy or lightheaded just really wants to go home. still waiting to hear that caregivers are set up Review of Systems Review of Systems: All systems reviewed & are unremarkable except as noted in HPI & below Physical Exam Physical Exam: gen aao pleasant nad heent nc at mmm breathing unlabored no accessory muscles good effort skin no rashes no pallor or icterus Results & Data Results & Data ([facility]) Vital Signs (Past 12 Hours) Vital Signs Temp Pulse Resp BP Pulse Ox 05/26/21 14:47 97.3 F L 79 16 108/69 97 05/26/21 07:11 97.5 F L 75 14 92/54 L 95 PG Care Time/CCT Total # of Minutes Spent Total Time Spent with Patient: Total time spent is greater than 50% in coordination of care (as documented) at patient's floor/unit and/or counseling patient: Coding Level of Care Code 59068 Subseq Hosp Care Lvl 1 Diagnoses Adrenal insufficiency E27.40 Recurrent left pleural effusion J90 Anemia D64.9 Hypotension I95.9 Dysphagia R13.10 CKD (chronic kidney disease) stage 2, GFR 60-89 ml/min N18.2 Chronic hypoxemic respiratory failure J96.11 COPD (chronic obstructive pulmonary disease) with chronic bronchitis J44.9 History of lung cancer Z85.118 Hyponatremia E87.1 Peripheral arterial disease I73.9 Bilateral carotid artery occlusion I65.23 Unstageable pressure ulcer of left heel L89.620 Bipolar disorder F31.9 Most recent bipolar episode type: most recent episode unspecified type Constipation K59.00 Right shoulder pain M25.511 (1) Bipolar disorder Most recent bipolar episode type: most recent episode unspecified type
[2021-05-26] MEDS: QUEtiapine FUMARATE 25 MG TABLET PO SCH (19:33)
[2021-05-26] MEDS: VALPROIC ACID SOLN 500 MG/10 ML UDC PO SCH (19:33)
[2021-05-27] MEDS: HYDROCORTISONE 10 MG TAB PO SCH ×2 (09:02→15:07)
[2021-05-27] MEDS: FOLIC ACID 1 MG TAB PO SCH (09:03)
[2021-05-27] MEDS: VALPROIC ACID SOLN 250 MG/5 ML UDC PO SCH (09:03)
[2021-05-27] MEDS: buPROPion HCl 100 MG TABLET PO SCH (09:03)
[2021-05-27] MEDS: ASCORBIC ACID 500 MG TAB PO SCH ×2 (09:03→19:21)
[2021-05-27] MEDS: CHOLECALCIFEROL 1,000 UNITS 25 MCG TAB PO SCH (09:03)
[2021-05-27] MEDS: ATORVASTATIN 40 MG TAB PO SCH (09:03)
[2021-05-27] MEDS: LANSOPRAZOLE 30 MG SOLTAB PO SCH (09:03)
[2021-05-27] MEDS: FLUTICASONE FUROATE 100MCG 14 PUFFS/INHALER INH SCH (09:04)
[2021-05-27] MEDS: MICONAZOLE NITRATE POWDER 43 GM EXT SCH ×2 (09:04→19:22)
[2021-05-27] MEDS: UMECLIDINIUM/VILANTEROL 62.5/25MCG 7 PUFFS/INHALER INH SCH (09:04)
[2021-05-27] MEDS: ACETAMINOPHEN 500 MG TAB PO PRN (09:11)
--- NOTE | 2021-05-27 17:55 | Hospitalist Progress Note ---
Date of Service May 27, 2021 Assessment & Plan (1) Adrenal insufficiency: Plan: Blood pressure better since hydrocortisone was increased to 20/10 -- continue this for now, hoepfully can wean back to prior dosing over time. has been asymptomatic Admitted with weakness, nausea, worsening hyponatremia, orthostatic hypotension ongoing for a long time More of a chronic presentation CT abd/pel on 03/17/21 with normal adrenal glands; Brain MRI 03/18/21 normal Perhaps related to autoimmune disorder? On 04/22, started hydrocortisone 10mg in AM and 5mg in PM-significantly improved - Will need f/u as Endocrine as outpt Prevacid for GI proph (2) Recurrent left pleural effusion: Plan: Patient remains afebrile - procalcitonin WNL --previous CXR and cough concerning for possible PNA however CTA more suggestive of worsening pleural effusion - still not requiring supplemental O2 --since no defined pneumonia put on Doxycycline x 7 days, was completed on 05/23 Repeat CXR No significant change compared to the prior study. Perihilar airspace opacities and a moderate left pleural effusion persists. 96% on RA and no respiratory distress. Lungs sound improved on examination based on previous documentation. --> CXR 05/20 with mod L effusion with consolidation from effusions/laying --> at risk for loculation however asymptomatic and [facility]/signed off - discussed with pulm for consideration for tap as BP may limited diuretics and may not be that beneficial given the chronic nature of his effusion; no indication for thoracentesis per pulmonary med as no need for supplemental O2; has required thoracentesis in the past --> would need to hold plavix if changes mind/convene earlier if patient becomes symptomatic but he has no fever, cough, or shortness of breath reported. will try lasix 20mg po x 1 05/21, however BP does limit diuretic use ( 99/64 AM of 05/22 but asymptomatic) --> CXR 05/22 with stable effusion with underlying airspace opacity compatible with atelectasis, pneumonia, and/or aspiration. Continue incentive spirometer -- has not been using much 05/24 -- mild wheezing/rales anterior L chest on exam. Denies cough/sputum production and continued encouragement of incentive spirometer 93% on RA Rechecked iron studies given MCV <80. Iron low and trans % sat low (on ferosol BID) --> got a dose of Venofer x2. Monitor blood counts periodically l --> Xopenex prn --> Encouraged continued use of incentive spirometer/flutter valve Will hold Plavix in event patient need thoracentesis (3) Anemia: Plan: - hgb was 7.3 on arrival -- up to 10s without intervention/no transfusion- has waxed and waned between 8-10. Most likely margin of error in the lab - Microcytic - stool for occult blood negative x 2 - Did have a W/U and Seen by established car carder/oncologist-- started on Ferrous sulfate/folic acid - EGD on 04/13 - dilated esophagus due to benign appearing esophageal stenosis; gastritis with biopsy obtained - repeated endoscopy for retreatment on 04/27/21 - Pathology - chronic gastritis, mild; neg H. pylori, no metaplasia, dysplasia, or malignancy hgb 10.7, MCV 79.1 Repeat iron studies --> iron deficiency on chronic disease --> Venofer given, continue to follow iron stores periodically, follow periodic CBC. (4) Hypotension: Plan: - Initially thought secondary to Seroquel and metoprolol side effect - Improved w/ hydrocortisone, and dc of home metoprolol - Pt has since been weaned off Midodrine -With blood pressure still little bit on the low side this morning, and everything is been through, steroids increased to a degree of stress dosing for now. (5) Dysphagia: Plan: Had complaint of feeling like food is getting stuck with swallowing on 04/06 -- Has had intermittent episodes of vomiting after taking pills throughout his hospital stay - much improved since dilation Has a h/o esophageal strictures requiring dilatation in 2017 He would not be able to withstand a barium swallow as he cannot stand up for more than a few seconds to a minute at a time Now s/p esophageal dilatation on 04/13 and 04/27 for severe restriction and doing much better with swallowing - Tolerating diet - Continue Prevacid (d/t soluble nature and issues with pill swallowing) -- consider increasing to BID while on steroids for adrenal insufficiency - changed bigger pills to liquids (6) CKD (chronic kidney disease) stage 2, GFR 60-89 ml/min: Plan: - Renal function appears to be at baseline in this patient, continue to monitor periodically (7) Chronic hypoxemic respiratory failure: Plan: - chronic. No acute issues - continue O2 prn-none needed for weeks (8) COPD (chronic obstructive pulmonary disease) with chronic bronchitis: Plan: - Patient with a history of COPD, still smoking despite lung cancer diagnosis (granted has been inpatient for an extended period of time) - ? reoccurrence of non-small cell lung CA on imaging vs post-radiation changes - Trelegy (ICS/AC/LABA) as an outpatient -->substituted Anoro Ellipta (AC/LABA) and Arnuity Ellipta (ICS) while inpatient - Oxygenating well on room air - Supplemental oxygen as needed to maintain SaO2 between 88 and 92% -has not needed O2 in a long time - pulmonology consulted (previously followed w/ Dr. 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 Most recent TSH wnl 2.4 in March 2021 (11) Peripheral arterial disease: Plan: - Started on Plavix and STATIN (hold pending eval for thoracentesis) - if they ultimately do not want to do this can resume --> RESUMED PLAVIX 05/18 - History of aortofemoral bypass per prior notes (12) Bilateral carotid artery occlusion: Plan: - started Plavix and statin this admission - as above, plavix if no concerns for thoracenetesis (13) Unstageable pressure ulcer of left heel: Plan: - no osteo continue local care (14) Bipolar disorder: Plan: stable - continue depakote but changed to liquid as tabs large and hard to swallow - continue reduced dose of seroquel and wellbutrin (15) Constipation: Plan: - bowel protocol ordered on board; adequate bowel movements - continue senna/docusate - Miralax PRN (16) Right shoulder pain: Plan: - Voltaren gel to right shoulder Plan: Disposition: Lives alone in [facility] and is quite debilitated (prolonged course of mobility issues) Working with case management. still looking for rehab placement-no beds available, multiple referrals out - however patient really wants to go home and no longer interested in rehab - Working on transfers to see if we can get him home with family support - has his home wheelchair here as he thinks he might be able to transfer better with that - Sister (EJ), ex-, and friend are in agreement to home with their support and home services - PT has been working on transfers as he has not been standing for quite some time - last eval he was able to transfer to wheelchair but could not transfer back Patient is making improvements but still needing assistance to get from bed to chair. Does well once in the chair, but needing additional assistance. Continued therapy while inpatient 05/23 --> 05/07 CM indicated coordination with [facility] coordinator for waiver services. Multiple days of missed phone calls per coordinator however call able to be arranged 05/22 --> believes able to provide additional help. working on arrangements. when arrangements made, patient to be discharged home with home health services CM FOLLOWING Venofer 05/24, repeat in AM. Cortisol AM pending, adjustment of steroids pending result Given length of time inpatient, be mindful of medications timing out and dropping off MAR Admission and Anticipated Discharge Date Admission Date: March 20, 2021 Subjective no new issues, pt sleeping. checked in with case management throughout the day - still no word that needed caregivers are set up. Physical Exam Physical Exam: resting comfortably nad heent nc at breathing unlabored no accessory muscles. no pallor or icterus Results & Data Results & Data ([facility]) Vital Signs (Past 12 Hours) Vital Signs Temp Pulse Resp BP Pulse Ox 05/27/21 15:45 97.7 F 84 18 117/72 99 05/27/21 07:16 98.4 F 94 H 14 95/60 L 94 PG Care Time/CCT Total # of Minutes Spent Total Time Spent with Patient: Total time spent is greater than 50% in coordination of care (as documented) at patient's floor/unit and/or counseling patient: Coding Level of Care Code 69955 Subseq Hosp Care Lvl 1 Diagnoses Adrenal insufficiency E27.40 Recurrent left pleural effusion J90 Anemia D64.9 Hypotension I95.9 Dysphagia R13.10 CKD (chronic kidney disease) stage 2, GFR 60-89 ml/min N18.2 Chronic hypoxemic respiratory failure J96.11 COPD (chronic obstructive pulmonary disease) with chronic bronchitis J44.9 History of lung cancer Z85.118 Hyponatremia E87.1 Peripheral arterial disease I73.9 Bilateral carotid artery occlusion I65.23 Unstageable pressure ulcer of left heel L89.620 Bipolar disorder F31.9 Most recent bipolar episode type: most recent episode unspecified type Constipation K59.00 Right shoulder pain M25.511 (1) Bipolar disorder Most recent bipolar episode type: most recent episode unspecified type
[2021-05-27] MEDS: QUEtiapine FUMARATE 25 MG TABLET PO SCH (19:21)
[2021-05-27] MEDS: VALPROIC ACID SOLN 500 MG/10 ML UDC PO SCH (19:22)
[2021-05-28] MEDS: LANSOPRAZOLE 30 MG SOLTAB PO SCH (08:21)
[2021-05-28] MEDS: ACETAMINOPHEN 500 MG TAB PO PRN ×2 (08:21→16:10)
[2021-05-28] MEDS: ATORVASTATIN 40 MG TAB PO SCH (08:22)
[2021-05-28] MEDS: ASCORBIC ACID 500 MG TAB PO SCH ×2 (08:22→19:55)
[2021-05-28] MEDS: buPROPion HCl 100 MG TABLET PO SCH (08:22)
[2021-05-28] MEDS: HYDROCORTISONE 10 MG TAB PO SCH ×2 (08:22→16:09)
[2021-05-28] MEDS: CHOLECALCIFEROL 1,000 UNITS 25 MCG TAB PO SCH (08:23)
[2021-05-28] MEDS: FOLIC ACID 1 MG TAB PO SCH (08:23)
[2021-05-28] MEDS: VALPROIC ACID SOLN 250 MG/5 ML UDC PO SCH (08:23)
[2021-05-28] MEDS: FLUTICASONE FUROATE 100MCG 14 PUFFS/INHALER INH SCH (08:24)
[2021-05-28] MEDS: UMECLIDINIUM/VILANTEROL 62.5/25MCG 7 PUFFS/INHALER INH SCH (08:24)
[2021-05-28] MEDS: MICONAZOLE NITRATE POWDER 43 GM EXT SCH ×2 (08:24→19:56)
--- NOTE | 2021-05-28 19:50 | Hospitalist Progress Note ---
Date of Service May 28, 2021 Assessment & Plan (1) Adrenal insufficiency: Plan: Blood pressure better since hydrocortisone was increased to 20/10 -- continue this for now, hopefully can wean back to prior dosing over time. has been asymptomatic Admitted with weakness, nausea, worsening hyponatremia, orthostatic hypotension ongoing for a long time More of a chronic presentation CT abd/pel on 03/17/21 with normal adrenal glands; Brain MRI 03/18/21 normal Perhaps related to autoimmune disorder? On 04/22, started hydrocortisone 10mg in AM and 5mg in PM-significantly improved - Will need f/u as Endocrine as outpt Prevacid for GI proph (2) Recurrent left pleural effusion: Plan: Patient remains afebrile - procalcitonin WNL --previous CXR and cough concerning for possible PNA however CTA more suggestive of worsening pleural effusion - still not requiring supplemental O2 --since no defined pneumonia put on Doxycycline x 7 days, was completed on 05/23 Repeat CXR No significant change compared to the prior study. Perihilar airspace opacities and a moderate left pleural effusion persists. 96% on RA and no respiratory distress. Lungs sound improved on examination based on previous documentation. --> CXR 05/20 with mod L effusion with consolidation from effusions/laying --> at risk for loculation however asymptomatic and [facility] consulted/signed off - discussed with pulm for consideration for tap as BP may limited diuretics and may not be that beneficial given the chronic nature of his effusion; no indication for thoracentesis per pulmonary med as no need for supplemental O2; has required thoracentesis in the past --> would need to hold plavix if changes mind/convene earlier if patient becomes symptomatic but he has no fever, cough, or shortness of breath reported. will try lasix 20mg po x 1 05/21, however BP does limit diuretic use ( 99/64 AM of 05/22 but asymptomatic) --> CXR 05/22 with stable effusion with underlying airspace opacity compatible with atelectasis, pneumonia, and/or aspiration. Continue incentive spirometer -- has not been using much 05/24 -- mild wheezing/rales anterior L chest on exam. Denies cough/sputum production and continued encouragement of incentive spirometer 93% on RA Rechecked iron studies given MCV <80. Iron low and trans % sat low (on ferosol BID) --> got a dose of Venofer x2. Monitor blood counts periodically l --> Xopenex prn --> Encouraged continued use of incentive spirometer/flutter valve Will hold Plavix in event patient need thoracentesis (3) Anemia: Plan: - hgb was 7.3 on arrival -- up to 10s without intervention/no transfusion- has waxed and waned between 8-10. Most likely margin of error in the lab - Microcytic - stool for occult blood negative x 2 - Did have a W/U and Seen by established picking belt operator/oncologist-- started on Ferrous sulfate/folic acid - EGD on 04/13 - dilated esophagus due to benign appearing esophageal stenosis; gastritis with biopsy obtained - repeated endoscopy for retreatment on 04/27/21 - Pathology - chronic gastritis, mild; neg H. pylori, no metaplasia, dysplasia, or malignancy hgb 10.7, MCV 79.1 Repeat iron studies --> iron deficiency on chronic disease --> Venofer given, continue to follow iron stores periodically, follow periodic CBC. (4) Hypotension: Plan: - Initially thought secondary to Seroquel and metoprolol side effect - Improved w/ hydrocortisone, and dc of home metoprolol - Pt has since been weaned off Midodrine -With blood pressure still little bit on the low side this morning, and everything is been through, steroids increased to a degree of stress dosing for now. (5) Dysphagia: Plan: Had complaint of feeling like food is getting stuck with swallowing on 04/06 -- Has had intermittent episodes of vomiting after taking pills throughout his hospital stay - much improved since dilation Has a h/o esophageal strictures requiring dilatation in 2017 He would not be able to withstand a barium swallow as he cannot stand up for more than a few seconds to a minute at a time Now s/p esophageal dilatation on 04/13 and 04/27 for severe restriction and doing much better with swallowing - Tolerating diet - Continue Prevacid (d/t soluble nature and issues with pill swallowing) -- consider increasing to BID while on steroids for adrenal insufficiency - changed bigger pills to liquids (6) CKD (chronic kidney disease) stage 2, GFR 60-89 ml/min: Plan: - Renal function appears to be at baseline in this patient, continue to monitor periodically (7) Chronic hypoxemic respiratory failure: Plan: - chronic. No acute issues - continue O2 prn-none needed for weeks (8) COPD (chronic obstructive pulmonary disease) with chronic bronchitis: Plan: - Patient with a history of COPD, still smoking despite lung cancer diagnosis (granted has been inpatient for an extended period of time) - ? reoccurrence of non-small cell lung CA on imaging vs post-radiation changes - Trelegy (ICS/AC/LABA) as an outpatient -->substituted Anoro Ellipta (AC/LABA) and Arnuity Ellipta (ICS) while inpatient - Oxygenating well on room air - Supplemental oxygen as needed to maintain SaO2 between 88 and 92% -has not needed O2 in a long time - pulmonology consulted (previously followed w/ Dr. 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 Most recent TSH wnl 2.4 in March 2021 (11) Peripheral arterial disease: Plan: - Started on Plavix and STATIN (hold pending eval for thoracentesis) - if they ultimately do not want to do this can resume --> RESUMED PLAVIX 05/18 - History of aortofemoral bypass per prior notes (12) Bilateral carotid artery occlusion: Plan: - started Plavix and statin this admission - as above, plavix if no concerns for thoracenetesis (13) Unstageable pressure ulcer of left heel: Plan: - no osteo continue local care (14) Bipolar disorder: Plan: stable - continue depakote but changed to liquid as tabs large and hard to swallow - continue reduced dose of seroquel and wellbutrin (15) Constipation: Plan: - bowel protocol ordered on board; adequate bowel movements - continue senna/docusate - Miralax PRN (16) Right shoulder pain: Plan: - Voltaren gel to right shoulder Plan: Disposition: Lives alone in [facility] and is quite debilitated (prolonged course of mobility issues) Working with case management. still looking for rehab placement-no beds available, multiple referrals out - however patient really wants to go home and no longer interested in rehab - Working on transfers to see if we can get him home with family support - has his home wheelchair here as he thinks he might be able to transfer better with that - Sister (EJ), ex-, and friend are in agreement to home with their support and home services - PT has been working on transfers as he has not been standing for quite some time - last eval he was able to transfer to wheelchair but could not transfer back Patient is making improvements but still needing assistance to get from bed to chair. Does well once in the chair, but needing additional assistance. Continued therapy while inpatient 05/23 --> 05/07 CM indicated coordination with [facility] coordinator for waiver services. Multiple days of missed phone calls per coordinator however call able to be arranged 05/22 --> believes able to provide additional help. working on arrangements. when arrangements made, patient to be discharged home with home health services CM FOLLOWING Venofer 05/24, repeat in AM. Cortisol AM pending, adjustment of steroids pending result Given length of time inpatient, be mindful of medications timing out and dropping off MAR Admission and Anticipated Discharge Date Admission Date: March 20, 2021 Subjective No new complaints. Just feeling bored. Still waiting to hear that caregivers are set up. He notes that 3 people from [employer] were willing to help him as wellI suggested/wrote down for him to have them get in contact with case management to be out of coordinate what they can do with what the formal services being set up are. Review of Systems Review of Systems: All systems reviewed & are unremarkable except as noted in HPI & below Physical Exam Physical Exam: In general he is awake and alert pleasant no distress. HEENT normocephalic atraumatic mucous members moist. Breathing unlabored no accessory muscle use good effort. Skin shows no rashes no pallor or icterus. neuro no focal deficits. Results & Data Results & Data ([facility]) Vital Signs (Past 12 Hours) Vital Signs Temp Pulse Resp BP Pulse Ox 05/28/21 15:14 98.4 F 82 16 114/76 100 PG Care Time/CCT Total # of Minutes Spent Total Time Spent with Patient: Total time spent is greater than 50% in coordination of care (as documented) at patient's floor/unit and/or counseling patient: Coding Level of Care Code 47152 Subseq Hosp Care Lvl 1 Diagnoses Adrenal insufficiency E27.40 Recurrent left pleural effusion J90 Anemia D64.9 Hypotension I95.9 Dysphagia R13.10 CKD (chronic kidney disease) stage 2, GFR 60-89 ml/min N18.2 Chronic hypoxemic respiratory failure J96.11 COPD (chronic obstructive pulmonary disease) with chronic bronchitis J44.9 History of lung cancer Z85.118 Hyponatremia E87.1 Peripheral arterial disease I73.9 Bilateral carotid artery occlusion I65.23 Unstageable pressure ulcer of left heel L89.620 Bipolar disorder F31.9 Most recent bipolar episode type: most recent episode unspecified type Constipation K59.00 Right shoulder pain M25.511 (1) Bipolar disorder Most recent bipolar episode type: most recent episode unspecified type
[2021-05-28] MEDS: VALPROIC ACID SOLN 500 MG/10 ML UDC PO SCH (19:55)
[2021-05-28] MEDS: QUEtiapine FUMARATE 25 MG TABLET PO SCH (19:56)
[2021-05-29] MEDS: MICONAZOLE NITRATE POWDER 43 GM EXT SCH ×2 (08:11→20:24)
[2021-05-29] MEDS: LANSOPRAZOLE 30 MG SOLTAB PO SCH (08:12)
[2021-05-29] MEDS: VALPROIC ACID SOLN 250 MG/5 ML UDC PO SCH (08:12)
[2021-05-29] MEDS: CHOLECALCIFEROL 1,000 UNITS 25 MCG TAB PO SCH (08:12)
[2021-05-29] MEDS: buPROPion HCl 100 MG TABLET PO SCH (08:12)
[2021-05-29] MEDS: ASCORBIC ACID 500 MG TAB PO SCH ×2 (08:12→20:23)
[2021-05-29] MEDS: ATORVASTATIN 40 MG TAB PO SCH (08:12)
[2021-05-29] MEDS: HYDROCORTISONE 10 MG TAB PO SCH ×2 (08:12→16:48)
[2021-05-29] MEDS: FOLIC ACID 1 MG TAB PO SCH (08:12)
[2021-05-29] MEDS: UMECLIDINIUM/VILANTEROL 62.5/25MCG 7 PUFFS/INHALER INH SCH (08:12)
[2021-05-29] MEDS: FLUTICASONE FUROATE 100MCG 14 PUFFS/INHALER INH SCH (09:35)
--- NOTE | 2021-05-29 10:43 | Hospitalist Progress Note ---
Date of Service May 29, 2021 Assessment & Plan (1) Adrenal insufficiency: Plan: Blood pressure better since hydrocortisone was increased to 20/10 -- continue this for now, hopefully can wean back to prior dosing over time. has been asymptomatic Admitted with weakness, nausea, worsening hyponatremia, orthostatic hypotension ongoing for a long time More of a chronic presentation CT abd/pel on 03/17/21 with normal adrenal glands; Brain MRI 03/18/21 normal Perhaps related to autoimmune disorder? On 04/22, started hydrocortisone 10mg in AM and 5mg in PM-significantly improved - Will need f/u as Endocrine as outpt Prevacid for GI proph (2) Recurrent left pleural effusion: Plan: Patient remains afebrile - procalcitonin WNL --previous CXR and cough concerning for possible PNA however CTA more suggestive of worsening pleural effusion - still not requiring supplemental O2 --since no defined pneumonia put on Doxycycline x 7 days, was completed on 05/23 Repeat CXR No significant change compared to the prior study. Perihilar airspace opacities and a moderate left pleural effusion persists. 96% on RA and no respiratory distress. Lungs sound improved on examination based on previous documentation. --> CXR 05/20 with mod L effusion with consolidation from effusions/laying --> at risk for loculation however asymptomatic and would not want any tx if mal ignant Pulmonology consulted/signed off - discussed with pulm for consideration for tap as BP may limited diuretics and may not be that beneficial given the chronic nature of his effusion; no indication for thoracentesis per pulmonary med as no need for supplemental O2; has required thoracentesis in the past --> would need to hold plavix if changes mind/convene earlier if patient becomes symptomatic but he has no fever, cough, or shortness of breath reported. will try lasix 20mg po x 1 05/21, however BP does limit diuretic use ( 99/64 AM of 05/22 but asymptomatic) --> CXR 05/22 with stable effusion with underlying airspace opacity compatible with atelectasis, pneumonia, and/or aspiration. Continue incentive spirometer -- has not been using much 05/24 -- mild wheezing/rales anterior L chest on exam. Denies cough/sputum production and continued encouragement of incentive spirometer 93% on RA Rechecked iron studies given MCV <80. Iron low and trans % sat low (on ferosol BID) --> got a dose of Venofer x2. Monitor blood counts periodically --> Xopenex prn --> Encouraged continued use of incentive spirometer/flutter valve (3) Anemia: Plan: - hgb was 7.3 on arrival -- up to 10s without intervention/no transfusion- has waxed and waned between 8-10. Most likely margin of error in the lab - Microcytic - stool for occult blood negative x 2 - Did have a W/U and Seen by established administrative director/oncologist-- started on Ferrous sulfate/folic acid - EGD on 04/13 - dilated esophagus due to benign appearing esophageal stenosis; gastritis with biopsy obtained - repeated endoscopy for retreatment on 04/27/21 - Pathology - chronic gastritis, mild; neg H. pylori, no metaplasia, dysplasia, or malignancy hgb 10.7, MCV 79.1 Repeat iron studies --> iron deficiency on chronic disease --> Venofer given 05/24, continue to follow iron stores periodically, follow periodic CBC. (4) Hypotension: Plan: - Initially thought secondary to Seroquel and metoprolol side effect - Improved w/ hydrocortisone, and dc of home metoprolol - Pt has since been weaned off Midodrine -With blood pressure still little bit on the low side this morning, and everything is been through, steroids increased to a degree of stress dosing for now. (5) Dysphagia: Plan: Had complaint of feeling like food is getting stuck with swallowing on 04/06 - Has had intermittent episodes of vomiting after taking pills throughout his hospital stay - much improved since dilation Has a h/o esophageal strictures requiring dilatation in 2017 He would not be able to withstand a barium swallow as he cannot stand up for more than a few seconds to a minute at a time Now s/p esophageal dilatation on 04/13 and 04/27 for severe restriction and doing much better with swallowing - Tolerating diet - Continue Prevacid (d/t soluble nature and issues with pill swallowing) -- consider increasing to BID while on steroids for adrenal insufficiency - changed bigger pills to liquids (6) CKD (chronic kidney disease) stage 2, GFR 60-89 ml/min: Plan: - Renal function appears to be at baseline in this patient, continue to monitor periodically (7) Chronic hypoxemic respiratory failure: Plan: - chronic. No acute issues - continue O2 prn-none needed for weeks (8) COPD (chronic obstructive pulmonary disease) with chronic bronchitis: Plan: - Patient with a history of COPD, still smoking despite lung cancer diagnosis (granted has been inpatient for an extended period of time) - ? reoccurrence of non-small cell lung CA on imaging vs post-radiation changes - Trelegy (ICS/AC/LABA) as an outpatient -->substituted Anoro Ellipta (AC/LABA) and Arnuity Ellipta (ICS) while inpatient - Oxygenating well on room air - Supplemental oxygen as needed to maintain SaO2 between 88 and 92% -has not needed O2 in a long time - pulmonology consulted (previously followed w/ Dr. 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 Most recent TSH wnl 2.4 in March 2021 (11) Peripheral arterial disease: Plan: - Started on Plavix and STATIN (hold pending eval for thoracentesis) - if they ultimately do not want to do this can resume --> RESUMED PLAVIX 05/18 - History of aortofemoral bypass per prior notes (12) Bilateral carotid artery occlusion: Plan: - started Plavix and statin this admission - as above, plavix if no concerns for thoracenetesis (13) Unstageable pressure ulcer of left heel: Plan: - no osteo continue local care (14) Bipolar disorder: Plan: stable - continue depakote but changed to liquid as tabs large and hard to swallow - continue reduced dose of seroquel and wellbutrin (15) Constipation: Plan: - bowel protocol ordered on board; adequate bowel movements - continue senna/docusate - Miralax PRN (16) Right shoulder pain: Plan: - Voltaren gel to right shoulder Plan: Disposition: Lives alone in [facility] and is quite debilitated (prolonged course of mobility issues) Working with case management. still looking for rehab placement-no beds available, multiple referrals out - however patient really wants to go home and no longer interested in rehab - Working on transfers to see if we can get him home with family support - has his home wheelchair here as he thinks he might be able to transfer better with that - Sister (ALEKSA), ex-, and friend are in agreement to home with their support and home services - PT has been working on transfers as he has not been standing for quite some time - last eval he was able to transfer to wheelchair but could not transfer back Patient is making improvements but still needing assistance to get from bed to chair. Does well once in the chair, but needing additional assistance. Continued therapy while inpatient 05/23 --> 05/07 CM indicated coordination with [facility] coordinator for waiver services. Multiple days of missed phone calls per coordinator however call able to be arranged 05/22 --> believes able to provide additional help. working on arrangements. when arrangements made, patient to be discharged home with home health services CM FOLLOWING, still waiting on a date when additional home services can start Given length of time inpatient, be mindful of medications timing out and dropping off MAR Admission and Anticipated Discharge Date Admission Date: March 20, 2021 [address] Mr. Luther seen on rounds today. No new complaints. Still waiting to hear that caregivers are set up. He notes that 3 people from [facility] were willing to help him as wellit was suggested for him to have them get in contact with case management to be out of coordinate what they can do with what the formal services being set up are. Review of Systems Review of Systems: CONSTITUTIONAL: +generalized weakness. Denies weight loss/gain, fever and chills, fatigue, malaise. HEENT: Denies changes in vision and hearing. RESPIRATORY: Denies SOB, cough, wheezing. CV: Denies palpitations, CP, lower extremity edema, orthopnea, PND. GI: Denies abdominal pain, nausea, vomiting and diarrhea. : Denies dysuria and urinary frequency, urgency, hesitancy. MUSCULOSKELETAL: Denies myalgia and joint pain. SKIN: Denies rash and pruritus. NEUROLOGICAL: Denies headache, syncope, focal weakness, numbness, tingling. PSYCHIATRIC: Denies recent changes in mood. Denies anxiety and depression. Physical Exam Physical Exam: GENERAL: 66 yo WM who appears older than stated age. Pleasant, WD/WN. NAD. LUNGS: Clear throughout without W/R/R. CARDIOVASCULAR: Regular rate and rhythm. No M/G/R. No JVD. ABDOMEN: Soft, non-tender and non-distended. BS normal x 4 quad. EXTREMITIES: No edema. Non-tender. Peripheral pulses +2/4. PSYCHIATRIC: Cooperative. Appropriate mood and affect. SKIN: Warm, dry, intact. No rashes or lesions. Results & Data Results & Data ([facility]) Vital Signs (Past 12 Hours) Vital Signs Temp Pulse Resp BP Pulse Ox 05/29/21 07:30 36.8 C 77 18 118/76 99 PG Care Time/CCT Total # of Minutes Spent Total Time Spent with Patient: Total time spent is greater than 50% in coordination of care (as documented) at patient's floor/unit and/or counseling patient: Coding Level of Care Code 60750 Subseq Hosp Care Lvl 1 Diagnoses Adrenal insufficiency E27.40 Recurrent left pleural effusion J90 Anemia D64.9 Hypotension I95.9 Dysphagia R13.10 CKD (chronic kidney disease) stage 2, GFR 60-89 ml/min N18.2 Chronic hypoxemic respiratory failure J96.11 COPD (chronic obstructive pulmonary disease) with chronic bronchitis J44.9 History of lung cancer Z85.118 Hyponatremia E87.1 Peripheral arterial disease I73.9 Bilateral carotid artery occlusion I65.23 Unstageable pressure ulcer of left heel L89.620 Bipolar disorder F31.9 Most recent bipolar episode type: most recent episode unspecified type Constipation K59.00 Right shoulder pain M25.511 (1) Bipolar disorder Most recent bipolar episode type: most recent episode unspecified type
[2021-05-29] MEDS: QUEtiapine FUMARATE 25 MG TABLET PO SCH (20:23)
[2021-05-29] MEDS: VALPROIC ACID SOLN 500 MG/10 ML UDC PO SCH (20:24)
[2021-05-30] MEDS: ASCORBIC ACID 500 MG TAB PO SCH ×2 (07:43→20:01)
[2021-05-30] MEDS: buPROPion HCl 100 MG TABLET PO SCH (07:43)
[2021-05-30] MEDS: LANSOPRAZOLE 30 MG SOLTAB PO SCH (07:43)
[2021-05-30] MEDS: CHOLECALCIFEROL 1,000 UNITS 25 MCG TAB PO SCH (07:43)
[2021-05-30] MEDS: FOLIC ACID 1 MG TAB PO SCH (07:44)
[2021-05-30] MEDS: MICONAZOLE NITRATE POWDER 43 GM EXT SCH ×2 (07:44→20:02)
[2021-05-30] MEDS: HYDROCORTISONE 10 MG TAB PO SCH ×2 (07:44→15:23)
[2021-05-30] MEDS: ATORVASTATIN 40 MG TAB PO SCH (07:44)
[2021-05-30] MEDS: VALPROIC ACID SOLN 250 MG/5 ML UDC PO SCH (07:44)
[2021-05-30] MEDS: UMECLIDINIUM/VILANTEROL 62.5/25MCG 7 PUFFS/INHALER INH SCH (07:45)
[2021-05-30] MEDS: FLUTICASONE FUROATE 100MCG 14 PUFFS/INHALER INH SCH (07:45)
--- NOTE | 2021-05-30 16:18 | Hospitalist Progress Note ---
Date of Service May 30, 2021 Assessment & Plan (1) Adrenal insufficiency: Plan: Blood pressure better since hydrocortisone was increased -- continue this for now, hopefully can wean back to prior dosing over time. has been asymptomatic Admitted with weakness, nausea, worsening hyponatremia, orthostatic hypotension ongoing for a long time More of a chronic presentation CT abd/pel on 03/17/21 with normal adrenal glands; Brain MRI 03/18/21 normal Perhaps related to autoimmune disorder? On 04/22, started hydrocortisone 10mg in AM and 5mg in PM-significantly improved - Will need f/u as Endocrine as outpt Prevacid for GI proph (2) Recurrent left pleural effusion: Plan: Patient remains afebrile - procalcitonin WNL --previous CXR and cough concerning for possible PNA however CTA more suggestive of worsening pleural effusion - still not requiring supplemental O2 --since no defined pneumonia put on Doxycycline x 7 days, was completed on 05/23 Repeat CXR No significant change compared to the prior study. Perihilar airspace opacities and a moderate left pleural effusion persists. 96% on RA and no respiratory distress. Lungs sound improved on examination based on previous documentation. --> CXR 05/20 with mod L effusion with consolidation from effusions/laying --> at risk for loculation however asymptomatic and would not want any tx if malignant. Pleural effusion has been present since March 2021 Pulmonology consulted/signed off - discussed with pulm for consideration for tap as BP may limited diuretics and may not be that beneficial given the chronic nature of his effusion; no indication for thoracentesis per pulmonary med as no need for supplemental O2; has required thoracentesis in the past --> would need to hold plavix if changes mind/convene earlier if patient becomes symptomatic but he has no fever, cough, or shortness of breath reported. will try lasix 20mg po x 1 05/21, however BP does limit diuretic use ( 99/64 AM of 05/22 but asymptomatic) --> CXR 05/22 with stable effusion with underlying airspace opacity compatible w ith atelectasis, pneumonia, and/or aspiration. Continue incentive spirometer -- has not been using much 05/24 -- mild wheezing/rales anterior L chest on exam. Denies cough/sputum production and continued encouragement of incentive spirometer 93% on RA Rechecked iron studies given MCV <80. Iron low and trans % sat low (on ferosol BID) --> got a dose of Venofer x2. Monitor blood counts periodically --> Xopenex prn --> Encouraged continued use of incentive spirometer/flutter valve as well as in crease activity (3) Anemia: Plan: - hgb was 7.3 on arrival -- up to 10s without intervention/no transfusion- has waxed and waned between 8-10. Most likely margin of error in the lab - Microcytic - stool for occult blood negative x 2 - Did have a W/U and Seen by established napkin machine operator/oncologist-- started on Ferrous sulfate/folic acid - EGD on 04/13 - dilated esophagus due to benign appearing esophageal stenosis; gastritis with biopsy obtained - repeated endoscopy for retreatment on 04/27/21 - Pathology - chronic gastritis, mild; neg H. pylori, no metaplasia, dysplasia, or malignancy Hemoglobin on 05/25/2021 was 9.2 g/Todd. We will recheck labs tomorrow morning. Repeat iron studies --> iron deficiency on chronic disease --> Venofer given 05/24, continue to follow iron stores periodically, follow periodic CBC. (4) Hypotension: Plan: - Initially thought secondary to Seroquel and metoprolol side effect - Improved w/ hydrocortisone, and dc of home metoprolol - Pt has since been weaned off Midodrine -With blood pressure still little bit on the low side this morning, and everything is been through, steroids increased to a degree of stress dosing for now. (5) Dysphagia: Plan: Had complaint of feeling like food is getting stuck with swallowing on 04/06 - Has had intermittent episodes of vomiting after taking pills throughout his hospital stay - much improved since dilation Has a h/o esophageal strictures requiring dilatation in 2017 He would not be able to withstand a barium swallow as he cannot stand up for more than a few seconds to a minute at a time Now s/p esophageal dilatation on 04/13 and 04/27 for severe restriction and doing much better with swallowing - Tolerating diet - Continue Prevacid (d/t soluble nature and issues with pill swallowing) -- consider increasing to BID while on steroids for adrenal insufficiency - changed bigger pills to liquids (6) CKD (chronic kidney disease) stage 2, GFR 60-89 ml/min: Plan: - Renal function appears to be at baseline in this patient, continue to monitor periodically (7) Chronic hypoxemic respiratory failure: Plan: - chronic. No acute issues - continue O2 prn-none needed for weeks (8) COPD (chronic obstructive pulmonary disease) with chronic bronchitis: Plan: - Patient with a history of COPD, still smoking despite lung cancer diagnosis. Patient now greater than 70 days admission -strongly encourage patient to completely abstain from cigarettes. He states that he will try but it is a habit. - ? reoccurrence of non-small cell lung CA on imaging vs post-radiation changes - Trelegy (ICS/AC/LABA) as an outpatient -->substituted Anoro Ellipta (AC/LABA) and Arnuity Ellipta (ICS) while inpatient - Oxygenating well on room air - Supplemental oxygen as needed to maintain SaO2 between 88 and 92% -has not needed O2 in a long time - pulmonology consulted (previously followed w/ Dr. 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 Most recent TSH wnl 2.4 in March 2021 (11) Peripheral arterial disease: Plan: - Started on Plavix and STATIN (hold pending eval for thoracentesis) - if they ultimately do not want to do this can resume --> RESUMED PLAVIX 05/18 - History of aortofemoral bypass per prior notes (12) Bilateral carotid artery occlusion: Plan: - started Plavix and statin this admission -continue as an outpatient (13) Unstageable pressure ulcer of left heel: Plan: - no osteo continue local care (14) Bipolar disorder: Plan: stable - continue depakote but changed to liquid as tabs large and hard to swallow - continue reduced dose of seroquel and wellbutrin (15) Constipation: Plan: - bowel protocol ordered on board; adequate bowel movements - continue senna/docusate - Miralax PRN (16) Right shoulder pain: Plan: - Voltaren gel to right shoulder Plan: Disposition: Lives alone in [facility] and is quite debilitated (prolonged course of mobility issues) Working with case management. still looking for rehab placement-no beds available, multiple referrals out - however patient really wants to go home and no longer interested in rehab - Working on transfers to see if we can get him home with family support - has his home wheelchair here as he thinks he might be able to transfer better with that - Sister (POA), ex-, and friend are in agreement to home with their support and home services - PT has been working on transfers as he has not been standing for quite some time - last eval he was able to transfer to wheelchair but could not transfer back Patient is making improvements but still needing assistance to get from bed to chair. Does well once in the chair, but needing additional assistance. Continued therapy while inpatient 05/23 --> 05/07 CM indicated coordination with [facility] coordinator for waiver services. Multiple days of missed phone calls per coordinator however call able to be ar ranged 05/22 --> believes able to provide additional help. working on arrangements. when arrangements made, patient to be discharged home with home health services CM FOLLOWING, still waiting on a date when additional home services can start Given length of time inpatient, be mindful of medications timing out and dropping off MAR Admission and Anticipated Discharge Date Admission Date: March 20, 2021 Subjective Attending: Dr. Pelayo Patient seen and examined in room 311. He is in bedside chair in his wheelchair. He denies any shortness of breath. He has no fever or chills. He has been trying to increase his activity. He has no acute complaints today. Awaiting placement. Review of Systems 2 Review of Systems: All systems reviewed & are unremarkable except as noted in Subjective Physical Exam Physical Exam: GENERAL : No acute distress EYES: No icterus, gaze conjugate NOSE: No evidence of epistaxis MOUTH: No lesions or candidiasis NECK: Supple LUNGS: Decreased breath sounds on left. Otherwise no adventitious breath sounds. HEART: Regular, rate controlled ABDOMEN: Soft, NT, ND, BS Present EXTREMITIES: No LE edema, pedal pulses intact NEURO: A&OX3 Results & Data Results & Data ([facility]) Vital Signs (Past 12 Hours) Vital Signs Temp Pulse Resp BP Pulse Ox 05/30/21 07:28 37.1 C 82 16 105/68 96 Laboratory Results 05/25/21 07:13 05/25/21 07:13 PG Care Time/CCT Total # of Minutes Spent Total Time Spent with Patient: Total time spent is greater than 50% in coordination of care (as documented) at patient's floor/unit and/or counseling patient: Coding Level of Care Code 66523 Subseq Hosp Care Lvl 1 Diagnoses Adrenal insufficiency E27.40 Recurrent left pleural effusion J90 Anemia D64.9 Hypotension I95.9 Dysphagia R13.10 CKD (chronic kidney disease) stage 2, GFR 60-89 ml/min N18.2 Chronic hypoxemic respiratory failure J96.11 COPD (chronic obstructive pulmonary disease) with chronic bronchitis J44.9 History of lung cancer Z85.118 Hyponatremia E87.1 Peripheral arterial disease I73.9 Bilateral carotid artery occlusion I65.23 Unstageable pressure ulcer of left heel L89.620 Bipolar disorder F31.9 Most recent bipolar episode type: most recent episode unspecified type Constipation K59.00 Right shoulder pain M25.511 Time Spent (min) 15 (1) Bipolar disorder Most recent bipolar episode type: most recent episode unspecified type
[2021-05-30] MEDS: QUEtiapine FUMARATE 25 MG TABLET PO SCH (20:02)
[2021-05-30] MEDS: VALPROIC ACID SOLN 500 MG/10 ML UDC PO SCH (20:02)
[2021-05-31] MEDS: FLUTICASONE FUROATE 100MCG 14 PUFFS/INHALER INH SCH (07:54)
[2021-05-31] MEDS: VALPROIC ACID SOLN 250 MG/5 ML UDC PO SCH (07:54)
[2021-05-31] MEDS: UMECLIDINIUM/VILANTEROL 62.5/25MCG 7 PUFFS/INHALER INH SCH (07:54)
[2021-05-31] MEDS: ASCORBIC ACID 500 MG TAB PO SCH ×2 (07:58→19:32)
[2021-05-31] MEDS: FOLIC ACID 1 MG TAB PO SCH (07:58)
[2021-05-31] MEDS: LANSOPRAZOLE 30 MG SOLTAB PO SCH (07:58)
[2021-05-31] MEDS: buPROPion HCl 100 MG TABLET PO SCH (07:59)
[2021-05-31] MEDS: ATORVASTATIN 40 MG TAB PO SCH (07:59)
[2021-05-31] MEDS: HYDROCORTISONE 10 MG TAB PO SCH ×2 (07:59→14:10)
[2021-05-31] MEDS: MICONAZOLE NITRATE POWDER 43 GM EXT SCH ×2 (07:59→19:31)
[2021-05-31] MEDS: CHOLECALCIFEROL 1,000 UNITS 25 MCG TAB PO SCH (07:59)
[2021-05-31 08:21] LABS: Hematocrit (blood only) 35.7 % (42-52); Hemoglobin 11.5 g/dL (14.0-18.0); Mean Corpuscular Hemoglobin 26.5 pg (25-34); Mean Corpuscular Hgb Conc 32.2 g/dL (32-36); Mean Corpuscular Volume 82.3 fL (80-100); Mean Platelet Volume 8.3 fL (7.4-10.4); Platelet Count 422 K/uL (130-400); RDW Coefficient of Variation 19.7 % (11.5-14.5); RDW Standard Deviation 58.6 fL (36.4-46.3); Red Blood Count 4.34 M/uL (4.7-6.1)
[2021-05-31 08:47] LABS: Calcium 9.2 mg/dl (8.5-10.1); Creatinine Clr Calc Pharmacy 97.4 ml/min; Est GFR (African American) 117.4 ml/min; Est GFR (Non-African American) 101.3 ml/min; Magnesium 2.1 mg/dl (1.8-2.4); Potassium 4.4 mmol/L (3.5-5.1)
--- NOTE | 2021-05-31 12:00 | Hospitalist Progress Note ---
Date of Service May 31, 2021 Assessment & Plan (1) Adrenal insufficiency: Plan: Blood pressure better since hydrocortisone was increased -- continue this for now, hopefully can wean back to prior dosing over time. has been asymptomatic Admitted with weakness, nausea, worsening hyponatremia, orthostatic hypotension ongoing for a long time More of a chronic presentation CT abd/pel on 03/17/21 with normal adrenal glands; Brain MRI 03/18/21 normal Perhaps related to autoimmune disorder? On 04/22, started hydrocortisone 10mg in AM and 5mg in PM-significantly improved - Will need f/u as Endocrine as outpt Prevacid for GI ppx (2) Recurrent left pleural effusion: Plan: Patient remains afebrile - procalcitonin WNL --previous CXR and cough concerning for possible PNA however CTA more s uggestive of worsening pleural effusion - still not requiring supplemental O2 --since no defined pneumonia put on Doxycycline x 7 days, was completed on 05/23 Repeat CXR No significant change compared to the prior study. Perihilar airspace opacities and a moderate left pleural effusion persists. 96% on RA and no respiratory distress. Lungs sound improved on examination based on previous documentation. --> CXR 05/20 with mod L effusion with consolidation from effusions/laying --> at risk for loculation however asymptomatic and would not want any tx if malignant. Pleural effusion has been present since March 2021 Pulmonology consulted/signed off - discussed with pulm for consideration for tap as BP may limited diuretics and may not be that beneficial given the chronic nature of his effusion; no indication for thoracentesis per pulmonary med as no need for supplemental O2; has required thoracentesis in the past --> would need to hold plavix if changes mind/convene earlier if patient becomes symptomatic but he has no fever, cough, or shortness of breath reported. will try lasix 20mg po x 1 05/21, however BP does limit diuretic use ( 99/64 AM of 05/22 but asymptomatic) --> CXR 05/22 with stable effusion with underlying airspace opacity compatible with atelectasis, pneumonia, and/or aspiration. Continue incentive spirometer -- has not been using much 05/24 -- mild wheezing/rales anterior L chest on exam. Denies cough/sputum production and continued encouragement of incentive spirometer 93% on RA Rechecked iron studies given MCV <80. Iron low and trans % sat low (on ferosol BID) --> got a dose of Venofer x2. Monitor blood counts periodically --> Xopenex prn --> Encouraged continued use of incentive spirometer/flutter valve as well as increase activity (3) Anemia: Plan: - hgb was 7.3 on arrival -- up to 10s without intervention/no transfusion- has waxed and waned between 8-10. 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 pylori, no metaplasia, dysplasia, or malignancy Hemoglobin on 05/25/2021 was 9.2, f/u labs 05/31 hgb is 11.5 Repeat iron studies --> iron deficiency on chronic disease --> Venofer given 05/24, continue to follow iron stores periodically, follow periodic CBC. (4) Hypotension: Plan: - Initially thought secondary to Seroquel and metoprolol side effect - Improved w/ hydrocortisone, and dc of home metoprolol - Pt has since been weaned off Midodrine -With blood pressure still little bit on the low side this morning, and everything is been through, steroids increased to a degree of stress dosing for now. (5) Dysphagia: Plan: Had complaint of feeling like food is getting stuck with swallowing on 04/06 - Has had intermittent episodes of vomiting after taking pills throughout his hospital stay - much improved since dilation Has a h/o esophageal strictures requiring dilatation in 2017 He would not be able to withstand a barium swallow as he cannot stand up for more than a few seconds to a minute at a time Now s/p esophageal dilatation on 04/13 and 04/27 for severe restriction and doing much better with swallowing - Tolerating diet - Continue Prevacid (d/t soluble nature and issues with pill swallowing) -- consider increasing to BID while on steroids for adrenal insufficiency - changed bigger pills to liquids (6) CKD (chronic kidney disease) stage 2, GFR 60-89 ml/min: Plan: - Renal function appears to be at baseline in this patient, continue to monitor periodically (7) Chronic hypoxemic respiratory failure: Plan: - chronic. No acute issues - continue O2 prn-none needed for weeks (8) COPD (chronic obstructive pulmonary disease) with chronic bronchitis: Plan: - Patient with a history of COPD, still smoking despite lung cancer diagnosis. Patient now greater than 70 days admission -strongly encourage patient to completely abstain from cigarettes. He states that he will try but it is a habit. - ? reoccurrence of non-small cell lung CA on imaging vs post-radiation changes - Trelegy (ICS/AC/LABA) as an outpatient -->substituted Anoro Ellipta (AC/LABA) and Arnuity Ellipta (ICS) while inpatient - Oxygenating well on room air - Supplemental oxygen as needed to maintain SaO2 between 88 and 92% -has not needed O2 in a long time - pulmonology consulted (previously followed w/ Dr. 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 - Na 134 on 05/31 (11) Peripheral arterial disease: Plan: - Started on Plavix and STATIN (hold pending eval for thoracentesis) - if they ultimately do not want to do this can resume --> RESUMED PLAVIX 05/18 - History of aortofemoral bypass per prior notes (12) Bilateral carotid artery occlusion: Plan: - started Plavix and statin this admission -continue as an outpatient (13) Unstageable pressure ulcer of left heel: Plan: - no osteo continue local care (14) Bipolar disorder: Plan: stable - continue depakote but changed to liquid as tabs large and hard to swallow - continue reduced dose of seroquel and wellbutrin (15) Constipation: Plan: - bowel protocol ordered on board; adequate bowel movements - continue senna/docusate - Miralax PRN (16) Right shoulder pain: Plan: - Voltaren gel to right shoulder Plan: Disposition: Lives alone in [facility] and is quite debilitated (prolonged course of mobility issues) Working with case management. still looking for rehab placement-no beds available, multiple referrals out - however patient really wants to go home and no longer interested in rehab - Working on transfers to see if we can get him home with family support - has his home wheelchair here as he thinks he might be able to transfer better with that - Sister (ALEKSA), ex-, and friend are in agreement to home with their support and home services - PT has been working on transfers as he has not been standing for quite some time - last eval he was able to transfer to wheelchair but could not transfer back Patient is making improvements but still needing assistance to get from bed to chair. Does well once in the chair, but needing additional assistance. Continued therapy while inpatient 05/23 --> 05/07 CM indicated coordination with [facility] coordinator for waiver services. Multiple days of missed phone calls per coordinator however call able to be arranged 05/22 --> believes able to provide additional help. working on arrangements. when arrangements made, patient to be discharged home with home health services CM FOLLOWING, still waiting on a date when additional home services can start Given length of time inpatient, be mindful of medications timing out and dropping off MAR Admission and Anticipated Discharge Date Admission Date: March 20, 2021 Subjective Patient seen on rounds today. He is resting comfortably in bed and offers no complaints/concerns. Denies cp, dyspnea, n/v/d, f/c, headache, or gu symptoms. Review of Systems Review of Systems: CONSTITUTIONAL: +generalized weakness. Denies weight loss/gain, fever and chills, fatigue, malaise. HEENT: Denies changes in vision and hearing. RESPIRATORY: Denies SOB, cough, wheezing. CV: Denies palpitations, CP, lower extremity edema, orthopnea, PND. GI: Denies abdominal pain, nausea, vomiting and diarrhea. : Denies dysuria and urinary frequency, urgency, hesitancy. MUSCULOSKELETAL: Denies myalgia and joint pain. SKIN: Denies rash and pruritus. NEUROLOGICAL: Denies headache, syncope, focal weakness, numbness, tingling. PSYCHIATRIC: Denies recent changes in mood. Denies anxiety and depression. Physical Exam Physical Exam: GENERAL: 66 yo WM who appears older than stated age. Pleasant, WD/WN. NAD. LUNGS: Clear throughout without W/R/R. CARDIOVASCULAR: Regular rate and rhythm. No M/G/R. No JVD. ABDOMEN: Soft, non-tender and non-distended. BS normal x 4 quad. EXTREMITIES: No edema. Non-tender. Peripheral pulses +2/4. PSYCHIATRIC: Cooperative. Appropriate mood and affect. SKIN: Warm, dry, intact. No rashes or lesions. Results & Data Results & Data ([facility]) Vital Signs (Past 12 Hours) Vital Signs Temp Pulse Resp BP Pulse Ox 05/31/21 07:11 36.5 C 72 16 102/66 100 Laboratory Results 05/31/21 08:09 05/31/21 08:09 PG Care Time/CCT Total # of Minutes Spent Total Time Spent with Patient: Total time spent is greater than 50% in coordination of care (as documented) at patient's floor/unit and/or counseling patient: Coding Level of Care Code 32995 Subseq Hosp Care Lvl 1 Diagnoses Adrenal insufficiency E27.40 Recurrent left pleural effusion J90 Anemia D64.9 Hypotension I95.9 Dysphagia R13.10 CKD (chronic kidney disease) stage 2, GFR 60-89 ml/min N18.2 Chronic hypoxemic respiratory failure J96.11 COPD (chronic obstructive pulmonary disease) with chronic bronchitis J44.9 History of lung cancer Z85.118 Hyponatremia E87.1 Peripheral arterial disease I73.9 Bilateral carotid artery occlusion I65.23 Unstageable pressure ulcer of left heel L89.620 Bipolar disorder F31.9 Most recent bipolar episode type: most recent episode unspecified type Constipation K59.00 Right shoulder pain M25.511 (1) Bipolar disorder Most recent bipolar episode type: most recent episode unspecified type
[2021-05-31] MEDS: QUEtiapine FUMARATE 25 MG TABLET PO SCH (19:32)
[2021-05-31] MEDS: VALPROIC ACID SOLN 500 MG/10 ML UDC PO SCH (19:33)
[2021-06-01] MEDS: UMECLIDINIUM/VILANTEROL 62.5/25MCG 7 PUFFS/INHALER INH SCH (08:15)
[2021-06-01] MEDS: ACETAMINOPHEN 500 MG TAB PO PRN (08:15)
[2021-06-01] MEDS: FLUTICASONE FUROATE 100MCG 14 PUFFS/INHALER INH SCH (08:16)
[2021-06-01] MEDS: HYDROCORTISONE 10 MG TAB PO SCH ×2 (08:17→15:44)
[2021-06-01] MEDS: buPROPion HCl 100 MG TABLET PO SCH (08:17)
[2021-06-01] MEDS: ATORVASTATIN 40 MG TAB PO SCH (08:17)
[2021-06-01] MEDS: ASCORBIC ACID 500 MG TAB PO SCH ×2 (08:17→20:37)
[2021-06-01] MEDS: FOLIC ACID 1 MG TAB PO SCH (08:17)
[2021-06-01] MEDS: CHOLECALCIFEROL 1,000 UNITS 25 MCG TAB PO SCH (08:18)
[2021-06-01] MEDS: MICONAZOLE NITRATE POWDER 43 GM EXT SCH ×2 (08:18→20:37)
[2021-06-01] MEDS: LANSOPRAZOLE 30 MG SOLTAB PO SCH (08:18)
[2021-06-01] MEDS: VALPROIC ACID SOLN 250 MG/5 ML UDC PO SCH (08:19)
--- NOTE | 2021-06-01 10:11 | Hospitalist Progress Note ---
Date of Service June 01, 2021 Assessment & Plan (1) Adrenal insufficiency: Plan: Blood pressure better since hydrocortisone was increased -- continue this for now, hopefully can wean back to prior dosing over time. has been asymptomatic Admitted with weakness, nausea, worsening hyponatremia, orthostatic hypotension ongoing for a long time More of a chronic presentation CT abd/pel on 03/17/21 with normal adrenal glands; Brain MRI 03/18/21 normal Perhaps related to autoimmune disorder? On 04/22, started hydrocortisone 10mg in AM and 5mg in PM-significantly improved - Will need f/u as Endocrine as outpt Prevacid for GI ppx (2) Recurrent left pleural effusion: Plan: Patient remains afebrile - procalcitonin WNL --previous CXR and cough concerning for possible PNA however CTA more s uggestive of worsening pleural effusion - still not requiring supplemental O2 --since no defined pneumonia put on Doxycycline x 7 days, was completed on 05/23 Repeat CXR No significant change compared to the prior study. Perihilar airspace opacities and a moderate left pleural effusion persists. 96% on RA and no respiratory distress. Lungs sound improved on examination based on previous documentation. --> CXR 05/20 with mod L effusion with consolidation from effusions/laying --> at risk for loculation however asymptomatic and would not want any tx if malignant. Pleural effusion has been present since March 2021 Pulmonology consulted/signed off - discussed with pulm for consideration for tap as BP may limited diuretics and may not be that beneficial given the chronic nature of his effusion; no indication for thoracentesis per pulmonary med as no need for supplemental O2; has required thoracentesis in the past --> would need to hold plavix if changes mind/convene earlier if patient becomes symptomatic but he has no fever, cough, or shortness of breath reported. will try lasix 20mg po x 1 05/21, however BP does limit diuretic use ( 99/64 AM of 05/22 but asymptomatic) --> CXR 05/22 with stable effusion with underlying airspace opacity compatible with atelectasis, pneumonia, and/or aspiration. Continue incentive spirometer -- has not been using much 05/24 -- mild wheezing/rales anterior L chest on exam. Denies cough/sputum production and continued encouragement of incentive spirometer 93% on RA Rechecked iron studies given MCV <80. Iron low and trans % sat low (on ferosol BID) --> got a dose of Venofer x2. Monitor blood counts periodically --> Xopenex prn --> Encouraged continued use of incentive spirometer/flutter valve as well as increase activity (3) Anemia: Plan: - hgb was 7.3 on arrival -- up to 10s without intervention/no transfusion- has waxed and waned between 8-10. Most likely margin of error in the lab - Microcytic - stool for occult blood negative x 2 - Did have a W/U and Seen by established hair rooting machine operator/oncologist-- started on Ferrous sulfate/folic acid - EGD on 04/13 - dilated esophagus due to benign appearing esophageal stenosis; gastritis with biopsy obtained - repeated endoscopy for retreatment on 04/27/21 - Pathology - chronic gastritis, mild; neg H. pylori, no metaplasia, dysplasia, or malignancy Hemoglobin on 05/25/2021 was 9.2, f/u labs 05/31 hgb is 11.5 Repeat iron studies --> iron deficiency on chronic disease --> Venofer given 05/24, continue to follow iron stores periodically, follow periodic CBC. (4) Hypotension: Plan: - Initially thought secondary to Seroquel and metoprolol side effect - Improved w/ hydrocortisone, and dc of home metoprolol - Pt has since been weaned off Midodrine -With blood pressure still little bit on the low side this morning, and everything is been through, steroids increased to a degree of stress dosing for now. (5) Dysphagia: Plan: Had complaint of feeling like food is getting stuck with swallowing on 04/06 - Has had intermittent episodes of vomiting after taking pills throughout his hospital stay - much improved since dilation Has a h/o esophageal strictures requiring dilatation in 2017 He would not be able to withstand a barium swallow as he cannot stand up for more than a few seconds to a minute at a time Now s/p esophageal dilatation on 04/13 and 04/27 for severe restriction and doing much better with swallowing - Tolerating diet - Continue Prevacid (d/t soluble nature and issues with pill swallowing) -- consider increasing to BID while on steroids for adrenal insufficiency - changed bigger pills to liquids (6) CKD (chronic kidney disease) stage 2, GFR 60-89 ml/min: Plan: - Renal function appears to be at baseline in this patient, continue to monitor periodically (7) Chronic hypoxemic respiratory failure: Plan: - chronic. No acute issues - continue O2 prn-none needed for weeks (8) COPD (chronic obstructive pulmonary disease) with chronic bronchitis: Plan: - Patient with a history of COPD, still smoking despite lung cancer diagnosis. Patient now greater than 70 days admission -strongly encourage patient to completely abstain from cigarettes. He states that he will try but it is a habit. - ? reoccurrence of non-small cell lung CA on imaging vs post-radiation changes - Trelegy (ICS/AC/LABA) as an outpatient -->substituted Anoro Ellipta (AC/LABA) and Arnuity Ellipta (ICS) while inpatient - Oxygenating well on room air - Supplemental oxygen as needed to maintain SaO2 between 88 and 92% -has not needed O2 in a long time - pulmonology consulted (previously followed w/ Dr. 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 - Na 134 on 05/31 (11) Peripheral arterial disease: Plan: - Started on Plavix and STATIN (hold pending eval for thoracentesis) - if they ultimately do not want to do this can resume --> RESUMED PLAVIX 05/18 - History of aortofemoral bypass per prior notes (12) Bilateral carotid artery occlusion: Plan: - started Plavix and statin this admission -continue as an outpatient (13) Unstageable pressure ulcer of left heel: Plan: - no osteo continue local care (14) Bipolar disorder: Plan: stable - continue depakote but changed to liquid as tabs large and hard to swallow - continue reduced dose of seroquel and wellbutrin (15) Constipation: Plan: - bowel protocol ordered on board; adequate bowel movements - continue senna/docusate - Miralax PRN (16) Right shoulder pain: Plan: - Voltaren gel to right shoulder Plan: Disposition: Lives alone in [facility] and is quite debilitated (prolonged course of mobility issues) Working with case management. still looking for rehab placement-no beds available, multiple referrals out - however patient really wants to go home and no longer interested in rehab - Working on transfers to see if we can get him home with family support - has his home wheelchair here as he thinks he might be able to transfer better with that - Sister (EJ), ex-, and friend are in agreement to home with their support and home services - PT has been working on transfers as he has not been standing for quite some time - last eval he was able to transfer to wheelchair but could not transfer back Patient is making improvements but still needing assistance to get from bed to chair. Does well once in the chair, but needing additional assistance. Continued therapy while inpatient 05/23 --> 05/07 CM indicated coordination with [facility] coordinator for waiver services. Multiple days of missed phone calls per coordinator however call able to be arranged 05/22 --> believes able to provide additional help. working on arrangements. when arrangements made, patient to be discharged home with home health services CM FOLLOWING, still waiting on a date when additional home services can start Given length of time inpatient, be mindful of medications timing out and dropping off MAR Admission and Anticipated Discharge Date Admission Date: March 20, 2021 Subjective Patient seen on rounds today. He is resting comfortably in wheelchair and offers no complaints/concerns. Denies cp, dyspnea, n/v/d, f/c, headache, or gu symptoms. Review of Systems Review of Systems: CONSTITUTIONAL: +generalized weakness. Denies weight loss/gain, fever and chills, fatigue, malaise. HEENT: Denies changes in vision and hearing. RESPIRATORY: Denies SOB, cough, wheezing. CV: Denies palpitations, CP, lower extremity edema, orthopnea, PND. GI: Denies abdominal pain, nausea, vomiting and diarrhea. : Denies dysuria and urinary frequency, urgency, hesitancy. MUSCULOSKELETAL: Denies myalgia and joint pain. SKIN: Denies rash and pruritus. NEUROLOGICAL: Denies headache, syncope, focal weakness, numbness, tingling. PSYCHIATRIC: Denies recent changes in mood. Denies anxiety and depression. Physical Exam Physical Exam: GENERAL: 66 yo WM who appears older than stated age. Pleasant, WD/WN. NAD. LUNGS: Clear throughout without W/R/R. CARDIOVASCULAR: Regular rate and rhythm. No M/G/R. No JVD. ABDOMEN: Soft, non-tender and non-distended. BS normal x 4 quad. EXTREMITIES: No edema. Non-tender. Peripheral pulses +2/4. PSYCHIATRIC: Cooperative. Appropriate mood and affect. SKIN: Warm, dry, intact. No rashes or lesions. Results & Data Results & Data ([facility]) Vital Signs (Past 12 Hours) Vital Signs Temp Pulse Pulse Resp BP Pulse Ox 06/01/21 06:47 36.5 C 71 18 112/73 99 05/31/21 22:44 36.5 C 77 16 120/73 98 PG Care Time/CCT Total # of Minutes Spent Total Time Spent with Patient: Total time spent is greater than 50% in coordination of care (as documented) at patient's floor/unit and/or counseling patient: Coding Level of Care Code 75771 Subseq Hosp Care Lvl 1 Diagnoses Adrenal insufficiency E27.40 Recurrent left pleural effusion J90 Anemia D64.9 Hypotension I95.9 Dysphagia R13.10 CKD (chronic kidney disease) stage 2, GFR 60-89 ml/min N18.2 Chronic hypoxemic respiratory failure J96.11 COPD (chronic obstructive pulmonary disease) with chronic bronchitis J44.9 History of lung cancer Z85.118 Hyponatremia E87.1 Peripheral arterial disease I73.9 Bilateral carotid artery occlusion I65.23 Unstageable pressure ulcer of left heel L89.620 Bipolar disorder F31.9 Most recent bipolar episode type: most recent episode unspecified type Constipation K59.00 Right shoulder pain M25.511 (1) Bipolar disorder Most recent bipolar episode type: most recent episode unspecified type
[2021-06-01] MEDS: VALPROIC ACID SOLN 500 MG/10 ML UDC PO SCH (20:36)
[2021-06-01] MEDS: QUEtiapine FUMARATE 25 MG TABLET PO SCH (20:37)
[2021-06-02] MEDS: VALPROIC ACID SOLN 250 MG/5 ML UDC PO SCH (07:29)
[2021-06-02] MEDS: buPROPion HCl 100 MG TABLET PO SCH (07:29)
[2021-06-02] MEDS: CHOLECALCIFEROL 1,000 UNITS 25 MCG TAB PO SCH (07:29)
[2021-06-02] MEDS: FLUTICASONE FUROATE 100MCG 14 PUFFS/INHALER INH SCH (07:29)
[2021-06-02] MEDS: FOLIC ACID 1 MG TAB PO SCH (07:29)
[2021-06-02] MEDS: UMECLIDINIUM/VILANTEROL 62.5/25MCG 7 PUFFS/INHALER INH SCH (07:29)
[2021-06-02] MEDS: LANSOPRAZOLE 30 MG SOLTAB PO SCH (07:29)
[2021-06-02] MEDS: MICONAZOLE NITRATE POWDER 43 GM EXT SCH ×2 (07:30→20:24)
[2021-06-02] MEDS: HYDROCORTISONE 10 MG TAB PO SCH ×2 (07:30→15:33)
[2021-06-02] MEDS: ATORVASTATIN 40 MG TAB PO SCH (07:30)
[2021-06-02] MEDS: ASCORBIC ACID 500 MG TAB PO SCH ×2 (07:30→20:23)
--- NOTE | 2021-06-02 12:38 | Hospitalist Progress Note ---
Date of Service June 02, 2021 Assessment & Plan (1) Adrenal insufficiency: Plan: Blood pressure better since hydrocortisone was increased to 20mg in AM and 10mg in PM-- continue this for now, hopefully can wean back to prior dosing over time. has been asymptomatic. BP slightly soft 06/02 but this is prior to med administration. Admitted with weakness, nausea, worsening hyponatremia, orthostatic hypotension ongoing for a long time More of a chronic presentation CT abd/pel on 03/17/21 with normal adrenal glands; Brain MRI 03/18/21 normal Perhaps related to autoimmune disorder? On 04/22, started hydrocortisone 10mg in AM and 5mg in PM-significantly improved - Will need f/u as Endocrine as outpt Prevacid for GI ppx (2) Recurrent left pleural effusion: Plan: Patient remains afebrile - procalcitonin WNL --previous CXR and cough concerning for possible PNA however CTA more suggestive of worsening pleural effusion - still not requiring supplemental O2 --since no defined pneumonia put on Doxycycline x 7 days, was completed on 05/23 Repeat CXR No significant change compared to the prior study. Perihilar airspace opacities and a moderate left pleural effusion persists. 96% on RA and no respiratory distress. Lungs sound improved on examination based on previous documentation. --> CXR 05/20 with mod L effusion with consolidation from effusions/laying --> at risk for loculation however asymptomatic and would not want any tx if malignant. Pleural effusion has been present since March 2021 Pulmonology consulted/signed off - discussed with pulm for consideration for tap as BP may limited diuretics and may not be that beneficial given the chronic nature of his effusion; no indication for thoracentesis per pulmonary med as no need for supplemental O2; has required thoracentesis in the past --> would need to hold plavix if changes mind/convene earlier if patient becomes symptomatic but he has no fever, cough, or shortness of breath reported. will try lasix 20mg po x 1 05/21, however BP does limit diuretic use ( 99/64 AM of 05/22 but asymptomatic) --> CXR 05/22 with stable effusion with underlying airspace opacity compatible with atelectasis, pneumonia, and/or aspiration. Continue incentive spirometer -- has not been using much 05/24 -- mild wheezing/rales anterior L chest on exam. Denies cough/sputum production and continued encouragement of incentive spirometer 93% on RA Rechecked iron studies given MCV <80. Iron low and trans % sat low (on ferosol BID) --> got a dose of Venofer x2. Monitor blood counts periodically --> Xopenex prn --> Encouraged continued use of incentive spirometer/flutter valve as well as increase activity (3) Anemia: Plan: - hgb was 7.3 on arrival -- up to 10s without intervention/no transfusion- has waxed and waned between 8-10. Most likely margin of error in the lab - Microcytic - stool for occult blood negative x 2 - Did have a W/U and Seen by established chemical research engineer/oncologist-- started on Ferrous sulfate/folic acid - EGD on 04/13 - dilated esophagus due to benign appearing esophageal stenosis; gastritis with biopsy obtained - repeated endoscopy for retreatment on 04/27/21 - Pathology - chronic gastritis, mild; neg H. pylori, no metaplasia, dysplasia, or malignancy Hemoglobin on 05/25/2021 was 9.2, f/u labs 05/31 hgb is 11.5 Repeat iron studies --> iron deficiency on chronic disease --> Venofer given 05/24, continue to follow iron stores periodically, follow periodic CBC. (4) Hypotension: Plan: - Initially thought secondary to Seroquel and metoprolol side effect - Improved w/ hydrocortisone, and dc of home metoprolol - Pt has since been weaned off Midodrine -With blood pressure still little bit on the low side this morning, and everything is been through, steroids increased to a degree of stress dosing for now. (5) Dysphagia: Plan: Had complaint of feeling like food is getting stuck with swallowing on 04/06 - Has had intermittent episodes of vomiting after taking pills throughout his hospital stay - much improved since dilation Has a h/o esophageal strictures requiring dilatation in 2017 He would not be able to withstand a barium swallow as he cannot stand up for more than a few seconds to a minute at a time Now s/p esophageal dilatation on 04/13 and 04/27 for severe restriction and doing much better with swallowing - Tolerating diet - Continue Prevacid (d/t soluble nature and issues with pill swallowing) -- consider increasing to BID while on steroids for adrenal insufficiency - changed bigger pills to liquids (6) CKD (chronic kidney disease) stage 2, GFR 60-89 ml/min: Plan: - Renal function appears to be at baseline in this patient, continue to monitor periodically (7) Chronic hypoxemic respiratory failure: Plan: - chronic. No acute issues - continue O2 prn-none needed for weeks (8) COPD (chronic obstructive pulmonary disease) with chronic bronchitis: Plan: - Patient with a history of COPD, still smoking despite lung cancer diagnosis. Patient now greater than 70 days admission -strongly encourage patient to completely abstain from cigarettes. He states that he will try but it is a habit. - ? reoccurrence of non-small cell lung CA on imaging vs post-radiation changes - Trelegy (ICS/AC/LABA) as an outpatient -->substituted Anoro Ellipta (AC/LABA) and Arnuity Ellipta (ICS) while inpatient - Oxygenating well on room air - Supplemental oxygen as needed to maintain SaO2 between 88 and 92% -has not needed O2 in a long time - pulmonology consulted (previously followed w/ Dr. 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 - Na 134 on 05/31 (11) Peripheral arterial disease: Plan: - Started on Plavix and STATIN -- Plavix held for possible thoracentesis but was then RESUMED on 05/18 - History of aortofemoral bypass per prior notes (12) Bilateral carotid artery occlusion: Plan: - started Plavix and statin this admission -continue as an outpatient (13) Unstageable pressure ulcer of left heel: Plan: - no osteo continue local care (14) Bipolar disorder: Plan: stable - continue depakote but changed to liquid as tabs large and hard to swallow - continue reduced dose of seroquel and wellbutrin (15) Constipation: Plan: - bowel protocol ordered on board; adequate bowel movements - continue senna/docusate - Miralax PRN (16) Right shoulder pain: Plan: - Voltaren gel to right shoulder Plan: Disposition: Lives alone in [facility] and is quite debilitated (prolonged course of mobility issues) Working with case management. still looking for rehab placement-no beds available, multiple referrals out - however patient really wants to go home and no longer interested in rehab - Working on transfers to see if we can get him home with family support - has his home wheelchair here as he thinks he might be able to transfer better with that - Sister (EJ), ex-, and friend are in agreement to home with their support and home services - PT has been working on transfers as he has not been standing for quite some time - last eval he was able to transfer to wheelchair but could not transfer back Patient is making improvements but still needing assistance to get from bed to chair. Does well once in the chair, but needing additional assistance. Continued therapy while inpatient 05/23 --> 05/07 CM indicated coordination with [facility] coordinator for waiver services. Multiple days of missed phone calls per coordinator however call able to be arranged 05/22 --> believes able to provide additional help. working on arrangements. when arrangements made, patient to be discharged home with home health services CM FOLLOWING, still waiting on a date when additional home services can start. Pt going to try and contact his access services assistant himself today (06/02) Given length of time inpatient, be mindful of medications timing out and dropping off MAR Admission and Anticipated Discharge Date Admission Date: March 20, 2021 Subjective Patient seen on rounds today. He is resting comfortably in wheelchair and offers no complaints/concerns. Denies cp, dyspnea, n/v/d, f/c, headache, or gu symptoms. Plan at this point seems to be for him to go home with additional waiver services but no one is clear as to when those additional services can begin. Review of Systems Review of Systems: CONSTITUTIONAL: +generalized weakness. Denies weight loss/gain, fever and chills, fatigue, malaise. HEENT: Denies changes in vision and hearing. RESPIRATORY: Denies SOB, cough, wheezing. CV: Denies palpitations, CP, lower extremity edema, orthopnea, PND. GI: Denies abdominal pain, nausea, vomiting and diarrhea. : Denies dysuria and urinary frequency, urgency, hesitancy. MUSCULOSKELETAL: Denies myalgia and joint pain. SKIN: Denies rash and pruritus. NEUROLOGICAL: Denies headache, syncope, focal weakness, numbness, tingling. PSYCHIATRIC: Denies recent changes in mood. Denies anxiety and depression. Physical Exam Physical Exam: GENERAL: 66 yo WM who appears older than stated age. Pleasant, WD/WN. NAD. LUNGS: Clear throughout without W/R/R. CARDIOVASCULAR: Regular rate and rhythm. No M/G/R. No JVD. ABDOMEN: Soft, non-tender and non-distended. BS normal x 4 quad. EXTREMITIES: No edema. Non-tender. Peripheral pulses +2/4. PSYCHIATRIC: Cooperative. Appropriate mood and affect. SKIN: Warm, dry, intact. No rashes or lesions. Results & Data Results & Data ([facility]) Vital Signs (Past 12 Hours) Vital Signs Temp Pulse Resp BP Pulse Ox 06/02/21 06:59 36.5 C 72 20 91/54 L 100 PG Care Time/CCT Total # of Minutes Spent Total Time Spent with Patient: Total time spent is greater than 50% in coordination of care (as documented) at patient's floor/unit and/or counseling patient: Coding Level of Care Code 13514 Subseq Hosp Care Lvl 1 Diagnoses Adrenal insufficiency E27.40 Recurrent left pleural effusion J90 Anemia D64.9 Hypotension I95.9 Dysphagia R13.10 CKD (chronic kidney disease) stage 2, GFR 60-89 ml/min N18.2 Chronic hypoxemic respiratory failure J96.11 COPD (chronic obstructive pulmonary disease) with chronic bronchitis J44.9 History of lung cancer Z85.118 Hyponatremia E87.1 Peripheral arterial disease I73.9 Bilateral carotid artery occlusion I65.23 Unstageable pressure ulcer of left heel L89.620 Bipolar disorder F31.9 Most recent bipolar episode type: most recent episode unspecified type Constipation K59.00 Right shoulder pain M25.511 (1) Bipolar disorder Most recent bipolar episode type: most recent episode unspecified type
[2021-06-02] MEDS: QUEtiapine FUMARATE 25 MG TABLET PO SCH (20:23)
[2021-06-02] MEDS: VALPROIC ACID SOLN 500 MG/10 ML UDC PO SCH (20:23)
[2021-06-03] MEDS: MICONAZOLE NITRATE POWDER 43 GM EXT SCH ×2 (10:12→20:05)
[2021-06-03] MEDS: FLUTICASONE FUROATE 100MCG 14 PUFFS/INHALER INH SCH (10:13)
[2021-06-03] MEDS: UMECLIDINIUM/VILANTEROL 62.5/25MCG 7 PUFFS/INHALER INH SCH (10:13)
[2021-06-03] MEDS: LANSOPRAZOLE 30 MG SOLTAB PO SCH (10:13)
[2021-06-03] MEDS: ATORVASTATIN 40 MG TAB PO SCH (10:14)
[2021-06-03] MEDS: FOLIC ACID 1 MG TAB PO SCH (10:14)
[2021-06-03] MEDS: VALPROIC ACID SOLN 250 MG/5 ML UDC PO SCH (10:14)
[2021-06-03] MEDS: CHOLECALCIFEROL 1,000 UNITS 25 MCG TAB PO SCH (10:14)
[2021-06-03] MEDS: ASCORBIC ACID 500 MG TAB PO SCH ×2 (10:14→20:06)
[2021-06-03] MEDS: HYDROCORTISONE 10 MG TAB PO SCH ×2 (10:15→15:20)
--- NOTE | 2021-06-03 11:15 | Hospitalist Progress Note ---
Date of Service June 03, 2021 Assessment & Plan (1) Adrenal insufficiency: Plan: Blood pressure better since hydrocortisone was increased to 20mg in AM and 10mg in PM-- continue this for now, hopefully can wean back to prior dosing over time. has been asymptomatic. BP slightly soft 06/02 but this is prior to med administration. Admitted with weakness, nausea, worsening hyponatremia, orthostatic hypotension ongoing for a long time More of a chronic presentation CT abd/pel on 03/17/21 with normal adrenal glands; Brain MRI 03/18/21 normal Perhaps related to autoimmune disorder? On 04/22, started hydrocortisone 10mg in AM and 5mg in PM-significantly improved - Will need f/u as Endocrine as outpt Prevacid for GI ppx (2) Recurrent left pleural effusion: Plan: Patient remains afebrile - procalcitonin WNL --previous CXR and cough concerning for possible PNA however CTA more suggestive of worsening pleural effusion - still not requiring supplemental O2 --since no defined pneumonia put on Doxycycline x 7 days, was completed on 05/23 Repeat CXR No significant change compared to the prior study. Perihilar airspace opacities and a moderate left pleural effusion persists. 96% on RA and no respiratory distress. Lungs sound improved on examination based on previous documentation. --> CXR 05/20 with mod L effusion with consolidation from effusions/laying --> at risk for loculation however asymptomatic and would not want any tx if malignant. Pleural effusion has been present since March 2021 Pulmonology consulted/signed off - discussed with pulm for consideration for tap as BP may limited diuretics and may not be that beneficial given the chronic nature of his effusion; no indication for thoracentesis per pulmonary med as no need for supplemental O2; has required thoracentesis in the past --> would need to hold plavix if changes mind/convene earlier if patient becomes symptomatic but he has no fever, cough, or shortness of breath reported. will try lasix 20mg po x 1 05/21, however BP does limit diuretic use ( 99/64 AM of 05/22 but asymptomatic) --> CXR 05/22 with stable effusion with underlying airspace opacity compatible with atelectasis, pneumonia, and/or aspiration. Continue incentive spirometer -- has not been using much 05/24 -- mild wheezing/rales anterior L chest on exam. Denies cough/sputum production and continued encouragement of incentive spirometer 93% on RA Rechecked iron studies given MCV <80. Iron low and trans % sat low (on ferosol BID) --> got a dose of Venofer x2. Monitor blood counts periodically --> Xopenex prn --> Encouraged continued use of incentive spirometer/flutter valve as well as increase activity (3) Anemia: Plan: - hgb was 7.3 on arrival -- up to 10s without intervention/no transfusion- has waxed and waned between 8-10. Most likely margin of error in the lab - Microcytic - stool for occult blood negative x 2 - Did have a W/U and Seen by established industry consultant/oncologist-- started on Ferrous sulfate/folic acid - EGD on 04/13 - dilated esophagus due to benign appearing esophageal stenosis; gastritis with biopsy obtained - repeated endoscopy for retreatment on 04/27/21 - Pathology - chronic gastritis, mild; neg H. pylori, no metaplasia, dysplasia, or malignancy Hemoglobin on 05/25/2021 was 9.2, f/u labs 05/31 hgb is 11.5 Repeat iron studies --> iron deficiency on chronic disease --> Venofer given 05/24, continue to follow iron stores periodically, follow periodic CBC. (4) Hypotension: Plan: - Initially thought secondary to Seroquel and metoprolol side effect - Improved w/ hydrocortisone, and dc of home metoprolol - Pt has since been weaned off Midodrine -With blood pressure still little bit on the low side this morning, and everything is been through, steroids increased to a degree of stress dosing for now. (5) Dysphagia: Plan: Had complaint of feeling like food is getting stuck with swallowing on 04/06 - Has had intermittent episodes of vomiting after taking pills throughout his hospital stay - much improved since dilation Has a h/o esophageal strictures requiring dilatation in 2017 He would not be able to withstand a barium swallow as he cannot stand up for more than a few seconds to a minute at a time Now s/p esophageal dilatation on 04/13 and 04/27 for severe restriction and doing much better with swallowing - Tolerating diet - Continue Prevacid (d/t soluble nature and issues with pill swallowing) -- consider increasing to BID while on steroids for adrenal insufficiency - changed bigger pills to liquids (6) CKD (chronic kidney disease) stage 2, GFR 60-89 ml/min: Plan: - Renal function appears to be at baseline in this patient, continue to monitor periodically (7) Chronic hypoxemic respiratory failure: Plan: - chronic. No acute issues - continue O2 prn-none needed for weeks (8) COPD (chronic obstructive pulmonary disease) with chronic bronchitis: Plan: - Patient with a history of COPD, still smoking despite lung cancer diagnosis. Patient now greater than 70 days admission -strongly encourage patient to completely abstain from cigarettes. He states that he will try but it is a habit. - ? reoccurrence of non-small cell lung CA on imaging vs post-radiation changes - Trelegy (ICS/AC/LABA) as an outpatient -->substituted Anoro Ellipta (AC/LABA) and Arnuity Ellipta (ICS) while inpatient - Oxygenating well on room air - Supplemental oxygen as needed to maintain SaO2 between 88 and 92% -has not needed O2 in a long time - pulmonology consulted (previously followed w/ Dr. 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 - Na 134 on 05/31 (11) Peripheral arterial disease: Plan: - Started on Plavix and STATIN -- Plavix held for possible thoracentesis but was then RESUMED on 05/18 - History of aortofemoral bypass per prior notes (12) Bilateral carotid artery occlusion: Plan: - started Plavix and statin this admission -continue as an outpatient (13) Unstageable pressure ulcer of left heel: Plan: - no osteo continue local care (14) Bipolar disorder: Plan: stable - continue depakote but changed to liquid as tabs large and hard to swallow - continue reduced dose of seroquel and wellbutrin (15) Constipation: Plan: - bowel protocol ordered on board; adequate bowel movements - continue senna/docusate - Miralax PRN (16) Right shoulder pain: Plan: - Voltaren gel to right shoulder Plan: Disposition: Lives alone in [facility] and is quite debilitated (prolonged course of mobility issues) Working with case management. still looking for rehab placement-no beds available, multiple referrals out - however patient really wants to go home and no longer interested in rehab - Working on transfers to see if we can get him home with family support - has his home wheelchair here as he thinks he might be able to transfer better with that - Sister (EJ), ex-, and friend are in agreement to home with their support and home services - PT has been working on transfers as he has not been standing for quite some time - last eval he was able to transfer to wheelchair but could not transfer back Patient is making improvements but still needing assistance to get from bed to chair. Does well once in the chair, but needing additional assistance. Continued therapy while inpatient --> 05/07 CM indicated coordination with [facility] coordinator for waiver services. Multiple days of missed phone calls per coordinator however call able to be arranged 05/22 --> believes able to provide additional help. working on arrangements. when arrangements made, patient to be discharged home with home health services CM FOLLOWING, still waiting on a date when additional home services can start. Pt attempted to contact coordinator on 06/02 but was unable to get in contact with anyone. Given length of time inpatient, be mindful of medications timing out and droppin g off AUG Admission and Anticipated Discharge Date Admission Date: March 20, 2021 Subjective Patient seen on rounds today. He is resting comfortably in wheelchair and offers no complaints/concerns. Denies cp, dyspnea, n/v/d, f/c, headache, or gu symptoms. Plan at this point seems to be for him to go home with additional waiver services but no one is clear as to when those additional services can begin. Review of Systems Review of Systems: CONSTITUTIONAL: +generalized weakness. Denies weight loss/gain, fever and chills, fatigue, malaise. HEENT: Denies changes in vision and hearing. RESPIRATORY: Denies SOB, cough, wheezing. CV: Denies palpitations, CP, lower extremity edema, orthopnea, PND. GI: Denies abdominal pain, nausea, vomiting and diarrhea. : Denies dysuria and urinary frequency, urgency, hesitancy. MUSCULOSKELETAL: Denies myalgia and joint pain. SKIN: Denies rash and pruritus. NEUROLOGICAL: Denies headache, syncope, focal weakness, numbness, tingling. PSYCHIATRIC: Denies recent changes in mood. Denies anxiety and depression. Physical Exam Physical Exam: GENERAL: 66 yo WM who appears older than stated age. Pleasant, WD/WN. NAD. LUNGS: Clear throughout without W/R/R. CARDIOVASCULAR: Regular rate and rhythm. No M/G/R. No JVD. ABDOMEN: Soft, non-tender and non-distended. BS normal x 4 quad. EXTREMITIES: No edema. Non-tender. Peripheral pulses +2/4. PSYCHIATRIC: Cooperative. Appropriate mood and affect. SKIN: Warm, dry, intact. No rashes or lesions. Results & Data Results & Data ([facility]) Vital Signs (Past 12 Hours) Vital Signs Temp Pulse Resp BP Pulse Ox 06/03/21 07:51 37 C 69 16 107/63 94 PG Care Time/CCT Total # of Minutes Spent Total Time Spent with Patient: Total time spent is greater than 50% in coordination of care (as documented) at patient's floor/unit and/or counseling patient: Coding Level of Care Code 23609 Subseq Hosp Care Lvl 1 Diagnoses Adrenal insufficiency E27.40 Recurrent left pleural effusion J90 Anemia D64.9 Hypotension I95.9 Dysphagia R13.10 CKD (chronic kidney disease) stage 2, GFR 60-89 ml/min N18.2 Chronic hypoxemic respiratory failure J96.11 COPD (chronic obstructive pulmonary disease) with chronic bronchitis J44.9 History of lung cancer Z85.118 Hyponatremia E87.1 Peripheral arterial disease I73.9 Bilateral carotid artery occlusion I65.23 Unstageable pressure ulcer of left heel L89.620 Bipolar disorder F31.9 Most recent bipolar episode type: most recent episode unspecified type Constipation K59.00 Right shoulder pain M25.511 (1) Bipolar disorder Most recent bipolar episode type: most recent episode unspecified type
[2021-06-03] MEDS: buPROPion HCl 100 MG TABLET PO SCH (12:08)
[2021-06-03] MEDS: VALPROIC ACID SOLN 500 MG/10 ML UDC PO SCH (20:06)
[2021-06-03] MEDS: QUEtiapine FUMARATE 25 MG TABLET PO SCH (20:06)
[2021-06-04] MEDS: VALPROIC ACID SOLN 250 MG/5 ML UDC PO SCH (09:26)
[2021-06-04] MEDS: MICONAZOLE NITRATE POWDER 43 GM EXT SCH ×2 (09:26→20:29)
[2021-06-04] MEDS: UMECLIDINIUM/VILANTEROL 62.5/25MCG 7 PUFFS/INHALER INH SCH (09:26)
[2021-06-04] MEDS: FLUTICASONE FUROATE 100MCG 14 PUFFS/INHALER INH SCH (09:27)
[2021-06-04] MEDS: buPROPion HCl 100 MG TABLET PO SCH (09:27)
[2021-06-04] MEDS: HYDROCORTISONE 10 MG TAB PO SCH ×2 (09:27→14:13)
[2021-06-04] MEDS: ASCORBIC ACID 500 MG TAB PO SCH ×2 (09:27→20:30)
[2021-06-04] MEDS: ATORVASTATIN 40 MG TAB PO SCH (09:27)
[2021-06-04] MEDS: CHOLECALCIFEROL 1,000 UNITS 25 MCG TAB PO SCH (09:27)
[2021-06-04] MEDS: FOLIC ACID 1 MG TAB PO SCH (09:27)
[2021-06-04] MEDS: LANSOPRAZOLE 30 MG SOLTAB PO SCH (09:28)
--- NOTE | 2021-06-04 12:08 | Hospitalist Progress Note ---
Date of Service June 04, 2021 Assessment & Plan (1) Adrenal insufficiency: Plan: Blood pressure better since hydrocortisone was increased to 20mg in AM and 10mg in PM-- continue this for now, hopefully can wean back to prior dosing over time. has been asymptomatic. BP slightly soft 06/02 but this is prior to med administration. Admitted with weakness, nausea, worsening hyponatremia, orthostatic hypotension ongoing for a long time More of a chronic presentation CT abd/pel on 03/17/21 with normal adrenal glands; Brain MRI 03/18/21 normal Perhaps related to autoimmune disorder? On 04/22, started hydrocortisone 10mg in AM and 5mg in PM-significantly improved - Will need f/u as Endocrine as outpt Prevacid for GI ppx (2) Recurrent left pleural effusion: Plan: Patient remains afebrile - procalcitonin WNL --previous CXR and cough concerning for possible PNA however CTA more suggestive of worsening pleural effusion - still not requiring supplemental O2 --since no defined pneumonia put on Doxycycline x 7 days, was completed on 05/23 Repeat CXR No significant change compared to the prior study. Perihilar airspace opacities and a moderate left pleural effusion persists. 96% on RA and no respiratory distress. Lungs sound improved on examination based on previous documentation. --> CXR 05/20 with mod L effusion with consolidation from effusions/laying --> at risk for loculation however asymptomatic and would not want any tx if malignant. Pleural effusion has been present since March 2021 Pulmonology consulted/signed off - discussed with pulm for consideration for tap as BP may limited diuretics and may not be that beneficial given the chronic nature of his effusion; no indication for thoracentesis per pulmonary med as no need for supplemental O2; has required thoracentesis in the past --> would need to hold plavix if changes mind/convene earlier if patient becomes symptomatic but he has no fever, cough, or shortness of breath reported. will try lasix 20mg po x 1 05/21, however BP does limit diuretic use ( 99/64 AM of 05/22 but asymptomatic) --> CXR 05/22 with stable effusion with underlying airspace opacity compatible with atelectasis, pneumonia, and/or aspiration. Continue incentive spirometer -- has not been using much 05/24 -- mild wheezing/rales anterior L chest on exam. Denies cough/sputum production and continued encouragement of incentive spirometer 93% on RA Rechecked iron studies given MCV <80. Iron low and trans % sat low (on ferosol BID) --> got a dose of Venofer x2. Monitor blood counts periodically --> Xopenex prn --> Encouraged continued use of incentive spirometer/flutter valve as well as increase activity (3) Anemia: Plan: - hgb was 7.3 on arrival -- up to 10s without intervention/no transfusion- has waxed and waned between 8-10. Most likely margin of error in the lab - Microcytic - stool for occult blood negative x 2 - Did have a W/U and Seen by established surveying crew stake runner/oncologist-- started on Ferrous sulfate/folic acid - EGD on 04/13 - dilated esophagus due to benign appearing esophageal stenosis; gastritis with biopsy obtained - repeated endoscopy for retreatment on 04/27/21 - Pathology - chronic gastritis, mild; neg H. pylori, no metaplasia, dysplasia, or malignancy Hemoglobin on 05/25/2021 was 9.2, f/u labs 05/31 hgb is 11.5 Repeat iron studies --> iron deficiency on chronic disease --> Venofer given 05/24, continue to follow iron stores periodically, follow periodic CBC. (4) Hypotension: Plan: - Initially thought secondary to Seroquel and metoprolol side effect - Improved w/ hydrocortisone, and dc of home metoprolol - Pt has since been weaned off Midodrine -With blood pressure still little bit on the low side this morning, and everything is been through, steroids increased to a degree of stress dosing for now. (5) Dysphagia: Plan: Had complaint of feeling like food is getting stuck with swallowing on 04/06 - Has had intermittent episodes of vomiting after taking pills throughout his hospital stay - much improved since dilation Has a h/o esophageal strictures requiring dilatation in 2017 He would not be able to withstand a barium swallow as he cannot stand up for more than a few seconds to a minute at a time Now s/p esophageal dilatation on 04/13 and 04/27 for severe restriction and doing much better with swallowing - Tolerating diet - Continue Prevacid (d/t soluble nature and issues with pill swallowing) -- consider increasing to BID while on steroids for adrenal insufficiency - changed bigger pills to liquids (6) CKD (chronic kidney disease) stage 2, GFR 60-89 ml/min: Plan: - Renal function appears to be at baseline in this patient, continue to monitor periodically (7) Chronic hypoxemic respiratory failure: Plan: - chronic. No acute issues - continue O2 prn-none needed for weeks (8) COPD (chronic obstructive pulmonary disease) with chronic bronchitis: Plan: - Patient with a history of COPD, still smoking despite lung cancer diagnosis. Patient now greater than 70 days admission -strongly encourage patient to completely abstain from cigarettes. He states that he will try but it is a habit. - ? reoccurrence of non-small cell lung CA on imaging vs post-radiation changes - Trelegy (ICS/AC/LABA) as an outpatient -->substituted Anoro Ellipta (AC/LABA) and Arnuity Ellipta (ICS) while inpatient - Oxygenating well on room air - Supplemental oxygen as needed to maintain SaO2 between 88 and 92% -has not needed O2 in a long time - pulmonology consulted (previously followed w/ Dr. Morin), d/t pleural effusion on admission - has since signed off (9) History of lung cancer: Plan: - Hematology/oncology consulted - will pick remover again as an outpatient on discharge, however not sure if patient would be a good candidate for any treatment moving forward given noncompliance although now that he will be in a SNF environment, would be better - MRI brain w/wo contrast with no evidence of metastatic disease -We will defer to outpatient oncology for further management. 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 - Na 134 on 05/31 (11) Peripheral arterial disease: Plan: - Started on Plavix and STATIN -- Plavix held for possible thoracentesis but was then RESUMED on 05/18 - History of aortofemoral bypass per prior notes (12) Bilateral carotid artery occlusion: Plan: - started Plavix and statin this admission -continue as an outpatient (13) Unstageable pressure ulcer of left heel: Plan: - no osteo continue local care (14) Bipolar disorder: Plan: stable - continue depakote but changed to liquid as tabs large and hard to swallow - continue reduced dose of seroquel and wellbutrin (15) Constipation: Plan: - bowel protocol ordered on board; adequate bowel movements - continue senna/docusate - Miralax PRN (16) Right shoulder pain: Plan: - Voltaren gel to right shoulder Plan: Disposition: Lives alone in [facility] and is quite debilitated (prolonged course of mobility issues) Working with case management. still looking for rehab placement-no beds available, multiple referrals out - however patient really wants to go home and no longer interested in rehab - Working on transfers to see if we can get him home with family support - has his home wheelchair here as he thinks he might be able to transfer better with that - Sister (EJ), ex-, and friend are in agreement to home with their support and home services CM FOLLOWING, discussed with Teresa this morning (06/04/21), plan is for home on Tuesday06/08/21 as his increased services can begin that day. Given length of time inpatient, be mindful of medications timing out and dropping off MAR Admission and Anticipated Discharge Date Admission Date: March 20, 2021 Subjective Patient seen on rounds today. He is resting comfortably in wheelchair and offers no complaints/concerns. Denies cp, dyspnea, n/v/d, f/c, headache, or gu symptoms. Review of Systems Review of Systems: CONSTITUTIONAL: +generalized weakness. Denies weight loss/gain, fever and chills, fatigue, malaise. HEENT: Denies changes in vision and hearing. RESPIRATORY: Denies SOB, cough, wheezing. CV: Denies palpitations, CP, lower extremity edema, orthopnea, PND. GI: Denies abdominal pain, nausea, vomiting and diarrhea. : Denies dysuria and urinary frequency, urgency, hesitancy. MUSCULOSKELETAL: Denies myalgia and joint pain. SKIN: Denies rash and pruritus. NEUROLOGICAL: Denies headache, syncope, focal weakness, numbness, tingling. PSYCHIATRIC: Denies recent changes in mood. Denies anxiety and depression. Physical Exam Physical Exam: GENERAL: 66 yo WM who appears older than stated age. Pleasant, WD/WN. NAD. LUNGS: Clear throughout without W/R/R. CARDIOVASCULAR: Regular rate and rhythm. No M/G/R. No JVD. ABDOMEN: Soft, non-tender and non-distended. BS normal x 4 quad. EXTREMITIES: No edema. Non-tender. Peripheral pulses +2/4. PSYCHIATRIC: Cooperative. Appropriate mood and affect. SKIN: Warm, dry, intact. No rashes or lesions. Results & Data Results & [facility] ([facility]) Vital Signs (Past 12 Hours) Vital Signs Temp Pulse Resp BP Pulse Ox 06/04/21 07:24 36.3 C L 71 18 118/72 98 PG Care Time/CCT Total # of Minutes Spent Total Time Spent with Patient: Total time spent is greater than 50% in coordination of care (as documented) at patient's floor/unit and/or counseling patient: Coding Level of Care Code 51435 Subseq Hosp Care Lvl 1 Diagnoses Adrenal insufficiency E27.40 Recurrent left pleural effusion J90 Anemia D64.9 Hypotension I95.9 Dysphagia R13.10 CKD (chronic kidney disease) stage 2, GFR 60-89 ml/min N18.2 Chronic hypoxemic respiratory failure J96.11 COPD (chronic obstructive pulmonary disease) with chronic bronchitis J44.9 History of lung cancer Z85.118 Hyponatremia E87.1 Peripheral arterial disease I73.9 Bilateral carotid artery occlusion I65.23 Unstageable pressure ulcer of left heel L89.620 Bipolar disorder F31.9 Most recent bipolar episode type: most recent episode unspecified type Constipation K59.00 Right shoulder pain M25.511 (1) Bipolar disorder Most recent bipolar episode type: most recent episode unspecified type
[2021-06-04] MEDS: QUEtiapine FUMARATE 25 MG TABLET PO SCH (20:31)
[2021-06-04] MEDS: VALPROIC ACID SOLN 500 MG/10 ML UDC PO SCH (20:32)
[2021-06-05] MEDS: buPROPion HCl 100 MG TABLET PO SCH (08:50)
[2021-06-05] MEDS: VALPROIC ACID SOLN 250 MG/5 ML UDC PO SCH (08:50)
[2021-06-05] MEDS: ASCORBIC ACID 500 MG TAB PO SCH ×2 (08:50→21:31)
[2021-06-05] MEDS: FOLIC ACID 1 MG TAB PO SCH (08:50)
[2021-06-05] MEDS: HYDROCORTISONE 10 MG TAB PO SCH ×2 (08:50→15:59)
[2021-06-05] MEDS: LANSOPRAZOLE 30 MG SOLTAB PO SCH (08:50)
[2021-06-05] MEDS: CHOLECALCIFEROL 1,000 UNITS 25 MCG TAB PO SCH (08:50)
[2021-06-05] MEDS: MICONAZOLE NITRATE POWDER 43 GM EXT SCH ×2 (08:51→21:33)
[2021-06-05] MEDS: UMECLIDINIUM/VILANTEROL 62.5/25MCG 7 PUFFS/INHALER INH SCH (08:51)
[2021-06-05] MEDS: FLUTICASONE FUROATE 100MCG 14 PUFFS/INHALER INH SCH (08:51)
--- NOTE | 2021-06-05 11:34 | Hospitalist Progress Note ---
Date of Service June 05, 2021 Assessment & Plan (1) Adrenal insufficiency: Plan: Blood pressure better since hydrocortisone was increased to 20mg in AM and 10mg in PM-- continue this for now, hopefully can wean back to prior dosing over time (10 mg AM and 5 mg PM). has been asymptomatic. Admitted with weakness, nausea, worsening hyponatremia, orthostatic hypotension ongoing for a long time More of a chronic presentation CT abd/pel on 03/17/21 with normal adrenal glands; Brain MRI 03/18/21 normal Perhaps related to autoimmune disorder? - Will need f/u as Endocrine as outpt Prevacid for GI ppx (2) Recurrent left pleural effusion: Plan: Patient remains afebrile - procalcitonin WNL --previous CXR and cough concerning for possible PNA however CTA more suggestive of worsening pleural effusion - still not requiring supplemental O2 --since no defined pneumonia put on Doxycycline x 7 days, was completed on 05/23 Repeat CXR No significant change compared to the prior study. Perihilar airspace opacities and a moderate left pleural effusion persists. 96% on RA and no respiratory distress. Lungs sound improved on examination based on previous documentation. --> CXR 05/20 with mod L effusion with consolidation from effusions/laying --> at risk for loculation however asymptomatic and would not want any tx if malignant. Pleural effusion has been present since March 2021 Pulmonology consulted/signed off - discussed with pulm for consideration for tap as BP may limited diuretics and may not be that beneficial given the chronic nature of his effusion; no indication for thoracentesis per pulmonary med as no need for supplemental O2; has required thoracentesis in the past --> would need to hold plavix if changes mind/convene earlier if patient becomes symptomatic but he has no fever, cough, or shortness of breath reported. -- tired lasix 20mg po x 1 05/21, however BP does limit diuretic use ( 99/64 AM of 05/22 but asymptomatic) --> CXR 05/22 with stable effusion with underlying airspace opacity compatible with atelectasis, pneumonia, and/or aspiration. Continue incentive spirometer -- has not been using much 05/24 -- mild wheezing/rales anterior L chest on exam. Denies cough/sputum production and continued encouragement of incentive spirometer 93% on RA Rechecked iron studies given MCV <80. Iron low and trans % sat low (on ferosol BID) --> got a dose of Venofer x2. Monitor blood counts periodically --> Xopenex prn --> Encouraged continued use of incentive spirometer/flutter valve as well as increase activity (3) Anemia: Plan: - hgb was 7.3 on arrival -- up to 10s without intervention/no transfusion- has waxed and waned between 8-10. Most likely margin of error in the lab - Microcytic - stool for occult blood negative x 2 - Did have a W/U and Seen by established [employer] infrastructure consultant/oncologist-- started on Ferrous sulfate/folic acid - EGD on 04/13 - dilated esophagus due to benign appearing esophageal stenosis; gastritis with biopsy obtained - repeated endoscopy for retreatment on 04/27/21 - Pathology - chronic gastritis, mild; neg H. pylori, no metaplasia, dysplasia, or malignancy Hemoglobin on 05/25/2021 was 9.2, f/u labs 05/31 hgb is 11.5 Repeat iron studies --> iron deficiency on chronic disease --> Venofer given 05/24, continue to follow iron stores periodically, follow periodic CBC. (4) Hypotension: Plan: - Initially thought secondary to Seroquel and metoprolol side effect - Improved w/ hydrocortisone, and dc of home metoprolol - Pt has since been weaned off Midodrine -With blood pressure still little bit on the low side intermittently, and everything is been through, steroids increased to a degree of stress dosing for now. (5) Dysphagia: Plan: Had complaint of feeling like food is getting stuck with swallowing on 04/06 - Has had intermittent episodes of vomiting after taking pills throughout his hospital stay - much improved since dilation Has a h/o esophageal strictures requiring dilatation in 2017 He would not be able to withstand a barium swallow as he cannot stand up for more than a few seconds to a minute at a time Now s/p esophageal dilatation on 04/13 and 04/27 for severe restriction and doing much better with swallowing - Tolerating diet - Continue Prevacid (d/t soluble nature and issues with pill swallowing) -- consider increasing to BID while on steroids for adrenal insufficiency - changed bigger pills to liquids (6) CKD (chronic kidney disease) stage 2, GFR 60-89 ml/min: Plan: - Renal function appears to be at baseline in this patient, continue to monitor periodically (7) Chronic hypoxemic respiratory failure: Plan: - chronic. No acute issues - continue O2 prn-none needed for weeks (8) COPD (chronic obstructive pulmonary disease) with chronic bronchitis: Plan: - Patient with a history of COPD, still smoking despite lung cancer diagnosis. Patient now greater than 70 days admission -strongly encourage patient to completely abstain from cigarettes. He states that he will try but it is a habit. - ? reoccurrence of non-small cell lung CA on imaging vs post-radiation changes - Trelegy (ICS/AC/LABA) as an outpatient -->substituted Anoro Ellipta (AC/LABA) and Arnuity Ellipta (ICS) while inpatient - Oxygenating well on room air - Supplemental oxygen as needed to maintain SaO2 between 88 and 92% -has not needed O2 in a long time - pulmonology consulted (previously followed w/ Dr. 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 - Na 134 on 05/31 (11) Peripheral arterial disease: Plan: - Started on Plavix and STATIN -- Plavix held for possible thoracentesis can monitor but likely no need for thoracentesis - can resume on D/C - History of aortofemoral bypass per prior notes (12) Bilateral carotid artery occlusion: Plan: - started Plavix and statin this admission -continue as an outpatient (13) Unstageable pressure ulcer of left heel: Plan: - no osteo continue local care (14) Bipolar disorder: Plan: stable - continue depakote but changed to liquid as tabs large and hard to swallow - continue reduced dose of seroquel and wellbutrin (15) Constipation: Plan: - bowel protocol ordered on board; adequate bowel movements - continue senna/docusate - Miralax PRN (16) Right shoulder pain: Plan: - Voltaren gel to right shoulder Plan: Disposition: Lives alone in [facility] and is quite debilitated (prolonged course of mobility issues) Working with case management. - initially looked for SNFs - however patient really wants to go home and no longer interested in rehab - Working on transfers to see if we can get him home with family support - has his home wheelchair here as he thinks he might be able to transfer better with that - Sister (EJ), ex-, and friend are in agreement to home with their support and home services CM FOLLOWING, discussed with Teresa this morning (06/04/21), plan is for home on Tuesday06/08/21 as his increased services can begin that day. Given length of time inpatient, be mindful of medications timing out and dropping off MAR Admission and Anticipated Discharge Date Admission Date: March 20, 2021 Subjective He reports feeling well today. He is more optimistic as his was approved for more caregivers at home but they cannot start until Tuesday. He is smiling more as he is excited to go home. He reports tolerating a diet but states he is probably eating too much. He denies respiratory complaints. No dizziness. Review of PT notes, he has not participated for a few sessions Review of Systems Review of Systems: All systems reviewed & are unremarkable except as noted in Subjective Physical Exam Physical Exam: PHYSICAL EXAM General Appearance: frail male in NAD who is A&O x 3 HEENT: Head is normocephalic/atraumatic; Hearing grossly intact Neck: Supple; Trachea midline; Neg JVD Heart: RRR with no M/G/R Lungs: Scattered wheezes but seems to improve some with deeper inspiration; Respirations unlabored Abdomen: Soft, non-tender, non-distended; Positive BS x 4 quadrants Extremities: Neg cyanosis or edema Neurological: Speech clear Psychiatric: Appropriate mood/affect Results & Data Results & Data ([facility]) Vital Signs (Past 12 Hours) Vital Signs Temp Pulse Resp BP Pulse Ox 06/05/21 08:23 37.6 C H 71 18 92/62 L 92 PG Care Time/CCT Total # of Minutes Spent Total Time Spent with Patient: Total time spent is greater than 50% in coordination of care (as documented) at patient's floor/unit and/or counseling patient: Coding Level of Care Code 24093 Subseq Hosp Care Lvl 2 Diagnoses Adrenal insufficiency E27.40 Recurrent left pleural effusion J90 Anemia D64.9 Hypotension I95.9 Dysphagia R13.10 CKD (chronic kidney disease) stage 2, GFR 60-89 ml/min N18.2 Chronic hypoxemic respiratory failure J96.11 COPD (chronic obstructive pulmonary disease) with chronic bronchitis J44.9 History of lung cancer Z85.118 Hyponatremia E87.1 Peripheral arterial disease I73.9 Bilateral carotid artery occlusion I65.23 Unstageable pressure ulcer of left heel L89.620 Bipolar disorder F31.9 Most recent bipolar episode type: most recent episode unspecified type Constipation K59.00 Right shoulder pain M25.511 (1) Bipolar disorder Most recent bipolar episode type: most recent episode unspecified type
[2021-06-05] MEDS: QUEtiapine FUMARATE 25 MG TABLET PO SCH (21:32)
[2021-06-05] MEDS: VALPROIC ACID SOLN 500 MG/10 ML UDC PO SCH (21:32)
[2021-06-06] MEDS: VALPROIC ACID SOLN 250 MG/5 ML UDC PO SCH (09:22)
[2021-06-06] MEDS: ATORVASTATIN 40 MG TAB PO SCH (09:23)
[2021-06-06] MEDS: ASCORBIC ACID 500 MG TAB PO SCH ×2 (09:23→20:42)
[2021-06-06] MEDS: CHOLECALCIFEROL 1,000 UNITS 25 MCG TAB PO SCH (09:23)
[2021-06-06] MEDS: HYDROCORTISONE 10 MG TAB PO SCH ×2 (09:23→14:35)
[2021-06-06] MEDS: LANSOPRAZOLE 30 MG SOLTAB PO SCH (09:24)
[2021-06-06] MEDS: FOLIC ACID 1 MG TAB PO SCH (09:24)
[2021-06-06] MEDS: FLUTICASONE FUROATE 100MCG 14 PUFFS/INHALER INH SCH (09:24)
[2021-06-06] MEDS: buPROPion HCl 100 MG TABLET PO SCH (09:24)
[2021-06-06] MEDS: UMECLIDINIUM/VILANTEROL 62.5/25MCG 7 PUFFS/INHALER INH SCH (09:25)
[2021-06-06] MEDS: MICONAZOLE NITRATE POWDER 43 GM EXT SCH ×2 (09:26→20:41)
--- NOTE | 2021-06-06 10:56 | Hospitalist Progress Note ---
Date of Service June 06, 2021 Assessment & Plan (1) Adrenal insufficiency: Plan: Blood pressure better since hydrocortisone was increased to 20mg in AM and 10mg in PM-- continue this for now, hopefully can wean back to prior dosing over time (10 mg AM and 5 mg PM). has been asymptomatic. Admitted with weakness, nausea, worsening hyponatremia, orthostatic hypotension ongoing for a long time More of a chronic presentation CT abd/pel on 03/17/21 with normal adrenal glands; Brain MRI 03/18/21 normal Perhaps related to autoimmune disorder? - Will need f/u as Endocrine as outpt Prevacid for GI ppx (2) Recurrent left pleural effusion: Plan: Patient remains afebrile - procalcitonin WNL --previous CXR and cough concerning for possible PNA however CTA more suggestive of worsening pleural effusion - still not requiring supplemental O2 --since no defined pneumonia put on Doxycycline x 7 days, was completed on 05/23 Repeat CXR No significant change compared to the prior study. Perihilar airspace opacities and a moderate left pleural effusion persists. Appropriate saturations on RA and no respiratory distress. Lungs sound improved on examination based on previous documentation. --> CXR 05/20 with mod L effusion with consolidation from effusions/laying --> at risk for loculation however asymptomatic and would not want any tx if malignant. Pleural effusion has been present since March 2021 Pulmonology consulted/signed off - discussed with pulm for consideration for tap as BP may limited diuretics and may not be that beneficial given the chronic na ture of his effusion; no indication for thoracentesis per pulmonary med as no need for supplemental O2; has required thoracentesis in the past --> would need to hold plavix if changes mind/convene earlier if patient becomes symptomatic but he has no fever, cough, or shortness of breath reported. -- Tried lasix 20mg po x 1 05/21, however BP does limit diuretic use ( 99/64 AM of 05/22 but asymptomatic) --> CXR 05/22 with stable effusion with underlying airspace opacity compatible with atelectasis, pneumonia, and/or aspiration. Continue incentive spirometer -- has not been using much 05/24 -- mild wheezing/rales anterior L chest on exam. Denies cough/sputum production and continued encouragement of incentive spirometer 93% on RA Rechecked iron studies given MCV <80. Iron low and trans % sat low (on ferosol BID) --> got a dose of Venofer x2. Monitor blood counts periodically --> Xopenex prn --> Encouraged continued use of incentive spirometer/flutter valve as well as increase activity (3) Anemia: Plan: - hgb was 7.3 on arrival -- up to 10s without intervention/no transfusion- has waxed and waned between 8-10. Most likely margin of error in the lab - Microcytic - stool for occult blood negative x 2 - Did have a W/U and Seen by established superior court clerk/oncologist-- started on Ferrous sulfate/folic acid - EGD on 04/13 - dilated esophagus due to benign appearing esophageal stenosis; gastritis with biopsy obtained - repeated endoscopy for retreatment on 04/27/21 - Pathology - chronic gastritis, mild; neg H. pylori, no metaplasia, dysplasia, or malignancy Hemoglobin on 05/25/2021 was 9.2, f/u labs 05/31 hgb is 11.5 Repeat iron studies --> iron deficiency on chronic disease --> Venofer given 05/24, continue to follow iron stores periodically, follow periodic CBC. (4) Hypotension: Plan: - Initially thought secondary to Seroquel and metoprolol side effect - Improved w/ hydrocortisone, and dc of home metoprolol - Pt has since been weaned off Midodrine -With blood pressure still little bit on the low side intermittently but much improved (5) Dysphagia: Plan: Had complaint of feeling like food is getting stuck with swallowing on 04/06 - Has had intermittent episodes of vomiting after taking pills throughout his hospital stay - much improved since dilation Has a h/o esophageal strictures requiring dilatation in 2017 He would not be able to withstand a barium swallow as he cannot stand up for more than a few seconds to a minute at a time Now s/p esophageal dilatation on 04/13 and 04/27 for severe restriction and doing much better with swallowing - Tolerating diet - Continue Prevacid (d/t soluble nature and issues with pill swallowing) -- consider increasing to BID while on steroids for adrenal insufficiency - changed bigger pills to liquids (6) CKD (chronic kidney disease) stage 2, GFR 60-89 ml/min: Plan: - Renal function appears to be at baseline in this patient, continue to monitor periodically (7) Chronic hypoxemic respiratory failure: Plan: - chronic. No acute issues - continue O2 prn-none needed for weeks (8) COPD (chronic obstructive pulmonary disease) with chronic bronchitis: Plan: - Patient with a history of COPD, still smoking despite lung cancer diagnosis. Patient now greater than 70 days admission -strongly encourage patient to completely abstain from cigarettes. He states that he will try but it is a habit. - ? reoccurrence of non-small cell lung CA on imaging vs post-radiation changes - Trelegy (ICS/AC/LABA) as an outpatient -->substituted Anoro Ellipta (AC/LABA) and Arnuity Ellipta (ICS) while inpatient - Oxygenating well on room air - Supplemental oxygen as needed to maintain SaO2 between 88 and 92% -has not needed O2 in a long time - pulmonology consulted (previously followed w/ Dr. 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 - Na 134 on 05/31 (11) Peripheral arterial disease: Plan: - Started on Plavix and STATIN -- Plavix held for possible thoracentesis can monitor but likely no need for thoracentesis - can resume on D/C - History of aortofemoral bypass per prior notes (12) Bilateral carotid artery occlusion: Plan: - started Plavix and statin this admission -continue as an outpatient (13) Unstageable pressure ulcer of left heel: Plan: - no osteo continue local care (14) Bipolar disorder: Plan: stable - continue depakote but changed to liquid as tabs large and hard to swallow - continue reduced dose of seroquel and wellbutrin (15) Constipation: Plan: - bowel protocol ordered on board; adequate bowel movements - continue senna/docusate - Miralax PRN (16) Right shoulder pain: Plan: - Voltaren gel to right shoulder Plan: Disposition: Lives alone in [facility] and is quite debilitated (prolonged course of mobility issues) Working with case management. - initially looked for SNFs - however patient really wants to go home and no longer interested in rehab - Working on transfers to see if we can get him home with family support - has his home wheelchair here as he thinks he might be able to transfer better with that - Sister (ALEKSA), ex-, and friend are in agreement to home with their support and home services CM FOLLOWING, discussed with Teresa this morning (06/04/21), plan is for home on Tuesday06/08/21 as his increased services can begin that day. Given length of time inpatient, be mindful of medications timing out and dropping off MAR Admission and Anticipated Discharge Date Admission Date: March 20, 2021 Subjective No acute events overnight. Reports feeling well. No SOB. No abdominal pain. No dizziness. He reports he has a ride home on Tuesday. His mood has been much better knowing he is able to go home here soon. He verbalizes no other issues. Review of Systems Review of Systems: All systems reviewed & are unremarkable except as noted in Subjective Physical Exam Physical Exam: PHYSICAL EXAM General Appearance: frail male in NAD who is A&O x 3 HEENT: Head is normocephalic/atraumatic; Hearing grossly intact Neck: Supple; Trachea midline; Neg JVD Heart: RRR with no M/G/R Lungs: CTA bilaterally; Respirations unlabored Abdomen: Soft, non-tender, non-distended; Positive BS x 4 quadrants Extremities: Neg cyanosis or edema Neurological: Speech clear Psychiatric: Appropriate mood/affect Results & Data Results & Data ([facility]) Vital Signs (Past 12 Hours) Vital Signs Temp Pulse Resp BP Pulse Ox 06/06/21 08:18 37.2 C 67 16 95/63 L 97 PG Care Time/CCT Total # of Minutes Spent Total Time Spent with Patient: Total time spent is greater than 50% in coordination of care (as documented) at patient's floor/unit and/or counseling patient: Coding Level of Care Code 10584 Subseq Hosp Care Lvl 2 Diagnoses Adrenal insufficiency E27.40 Recurrent left pleural effusion J90 Anemia D64.9 Hypotension I95.9 Dysphagia R13.10 CKD (chronic kidney disease) stage 2, GFR 60-89 ml/min N18.2 Chronic hypoxemic respiratory failure J96.11 COPD (chronic obstructive pulmonary disease) with chronic bronchitis J44.9 History of lung cancer Z85.118 Hyponatremia E87.1 Peripheral arterial disease I73.9 Bilateral carotid artery occlusion I65.23 Unstageable pressure ulcer of left heel L89.620 Bipolar disorder F31.9 Most recent bipolar episode type: most recent episode unspecified type Constipation K59.00 Right shoulder pain M25.511 (1) Bipolar disorder Most recent bipolar episode type: most recent episode unspecified type
[2021-06-06] MEDS: QUEtiapine FUMARATE 25 MG TABLET PO SCH (20:41)
[2021-06-06] MEDS: VALPROIC ACID SOLN 500 MG/10 ML UDC PO SCH (20:43)
[2021-06-07] MEDS: LANSOPRAZOLE 30 MG SOLTAB PO SCH (08:55)
[2021-06-07] MEDS: buPROPion HCl 100 MG TABLET PO SCH (08:55)
[2021-06-07] MEDS: ASCORBIC ACID 500 MG TAB PO SCH ×2 (08:55→19:55)
[2021-06-07] MEDS: HYDROCORTISONE 10 MG TAB PO SCH ×2 (08:55→15:31)
[2021-06-07] MEDS: FOLIC ACID 1 MG TAB PO SCH (08:55)
[2021-06-07] MEDS: UMECLIDINIUM/VILANTEROL 62.5/25MCG 7 PUFFS/INHALER INH SCH (08:56)
[2021-06-07] MEDS: FLUTICASONE FUROATE 100MCG 14 PUFFS/INHALER INH SCH (08:56)
[2021-06-07] MEDS: CHOLECALCIFEROL 1,000 UNITS 25 MCG TAB PO SCH (08:56)
[2021-06-07] MEDS: ATORVASTATIN 40 MG TAB PO SCH (08:56)
[2021-06-07] MEDS: MICONAZOLE NITRATE POWDER 43 GM EXT SCH ×2 (09:08→20:26)
--- NOTE | 2021-06-07 09:28 | Hospitalist Progress Note ---
Date of Service June 07, 2021 Assessment & Plan (1) Adrenal insufficiency: Plan: Blood pressure better since hydrocortisone was increased to 20mg in AM and 10mg in PM-- will start to wean back to prior dosing over time (10 mg AM and 5 mg PM) - change to 15 mg AM and 10 mg PM. has been asymptomatic. Admitted with weakness, nausea, worsening hyponatremia, orthostatic hypotension ongoing for a long time More of a chronic presentation CT abd/pel on 03/17/21 with normal adrenal glands; Brain MRI 03/18/21 normal Perhaps related to autoimmune disorder? - Will need f/u as Endocrine as outpt Prevacid for GI ppx (2) Recurrent left pleural effusion: Plan: Patient remains afebrile - procalcitonin WNL --previous CXR and cough concerning for possible PNA however CTA more suggestive of worsening pleural effusion - still not requiring supplemental O2 --since no defined pneumonia put on Doxycycline x 7 days, was completed on 05/23 Repeat CXR No significant change compared to the prior study. Perihilar airspace opacities and a moderate left pleural effusion persists. Appropriate saturations on RA and no respiratory distress. Lungs sound improved on examination based on previous documentation. --> CXR 05/20 with mod L effusion with consolidation from effusions/laying --> at risk for loculation however asymptomatic and would not want any tx if malignant. Pleural effusion has been present since March 2021 Pulmonology consulted/signed off - discussed with pulm for consideration for tap as BP may limited diuretics and may not be that beneficial given the chronic nature of his effusion; no indication for thoracentesis per pulmonary med as no need for supplemental O2; has required thoracentesis in the past --> would need to hold plavix if changes mind/convene earlier if patient becomes symptomatic but he has no fever, cough, or shortness of breath reported. -- Tried lasix 20mg po x 1 05/21, however BP does limit diuretic use ( 99/64 AM of 05/22 but asymptomatic) --> CXR 05/22 with stable effusion with underlying airspace opacity compatible with atelectasis, pneumonia, and/or aspiration. Continue incentive spirometer -- has not been using much 05/24 -- mild wheezing/rales anterior L chest on exam. Denies cough/sputum production and continued encouragement of incentive spirometer 93% on RA Rechecked iron studies given MCV <80. Iron low and trans % sat low (on ferosol BID) --> got a dose of Venofer x2. Monitor blood counts periodically --> Xopenex prn --> Encouraged continued use of incentive spirometer/flutter valve as well as increase activity (3) Anemia: Plan: - hgb was 7.3 on arrival -- up to 10s without intervention/no transfusion- has waxed and waned between 8-10. Most likely margin of error in the lab - Microcytic - stool for occult blood negative x 2 - Did have a W/U and Seen by established director of physical education/oncologist-- started on Ferrous sulfate/folic acid - EGD on 04/13 - dilated esophagus due to benign appearing esophageal stenosis; gastritis with biopsy obtained - repeated endoscopy for retreatment on 04/27/21 - Pathology - chronic gastritis, mild; neg H. pylori, no metaplasia, dysplasia, or malignancy Hemoglobin on 05/25/2021 was 9.2, f/u labs 05/31 hgb is 11.5 Repeat iron studies --> iron deficiency on chronic disease --> Venofer given 05/24, continue to follow iron stores periodically, follow periodic CBC. (4) Hypotension: Plan: - Initially thought secondary to Seroquel and metoprolol side effect - Improved w/ hydrocortisone, and dc of home metoprolol - Pt has since been weaned off Midodrine -With blood pressure still little bit on the low side intermittently but much improved (5) Dysphagia: Plan: Had complaint of feeling like food is getting stuck with swallowing on 04/06 - Has had intermittent episodes of vomiting after taking pills throughout his hospital stay - much improved since second dilation and no further issues Has a h/o esophageal strictures requiring dilatation in 2017 He would not be able to withstand a barium swallow as he cannot stand up for more than a few seconds to a minute at a time Now s/p esophageal dilatation on 04/13 and 04/27 for severe restriction and doing much better with swallowing - Tolerating diet - Continue Prevacid (d/t soluble nature and issues with pill swallowing) -- consider increasing to BID while on steroids for adrenal insufficiency - changed bigger pills to liquids - GI recommending F/U dilation/EGD x 6 weeks which would be 1/3 - will arrange outpatient F/U as patient doing well from a swallowing perspective and can finally return home. Can do this as outpatient (6) CKD (chronic kidney disease) stage 2, GFR 60-89 ml/min: Plan: - Renal function appears to be at baseline in this patient, continue to monitor periodically (7) Chronic hypoxemic respiratory failure: Plan: - chronic. No acute issues - continue O2 prn-none needed for weeks (8) COPD (chronic obstructive pulmonary disease) with chronic bronchitis: Plan: - Patient with a history of COPD, still smoking despite lung cancer diagnosis. Patient now greater than 70 days admission -strongly encourage patient to completely abstain from cigarettes. He states that he will try but it is a habit. - ? reoccurrence of non-small cell lung CA on imaging vs post-radiation changes - Trelegy (ICS/AC/LABA) as an outpatient -->substituted Anoro Ellipta (AC/LABA) and Arnuity Ellipta (ICS) while inpatient - Oxygenating well on room air - Supplemental oxygen as needed to maintain SaO2 between 88 and 92% -has not needed O2 in a long time - pulmonology consulted (previously followed w/ Dr. 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 - Na 134 on 05/31 (11) Peripheral arterial disease: Plan: - Started on Plavix and STATIN -- Plavix held for possible thoracentesis can monitor but likely no need for thoracentesis - can resume on D/C - History of aortofemoral bypass per prior notes (12) Bilateral carotid artery occlusion: Plan: - started Plavix and statin this admission -continue as an outpatient (13) Unstageable pressure ulcer of left heel: Plan: - no osteo continue local care (14) Bipolar disorder: Plan: stable - continue depakote but changed to liquid as tabs large and hard to swallow - continue reduced dose of seroquel and wellbutrin (15) Constipation: Plan: - bowel protocol ordered on board; adequate bowel movements - continue senna/docusate - Miralax PRN (16) Right shoulder pain: Plan: - Voltaren gel to right shoulder Plan: Disposition: Lives alone in [facility] and is quite debilitated (prolonged course of mobility issues) Working with case management. - initially looked for SNFs - however patient really wants to go home and no longer interested in rehab - Working on transfers to see if we can get him home with family support - has his home wheelchair here as he thinks he might be able to transfer better with that - Sister (POA), ex-, friends, and gnosticism members (periodically) are in agreement to home with their support and home services CM FOLLOWING, discussed with Teresa this morning (06/04/21), plan is for home on Tuesday06/08/21 as his increased services can begin that day. Given length of time inpatient, be mindful of medications timing out and dropping off MAR Admission and Anticipated Discharge Date Admission Date: March 20, 2021 Subjective No acute events overnight. Reports feeling well this morning. Tolerated breakfast without issue. No issues with breathing. Mood remains so much better knowing he can return home here shortly. Talked with his sister yesterday who reports he looks much better than he has in awhile and more interactive and joking with family/friends/staff. Review of Systems Review of Systems: All systems reviewed & are unremarkable except as noted in Subjective Physical Exam Physical Exam: PHYSICAL EXAM General Appearance: thin male in NAD who is A&O x 3 HEENT: Head is normocephalic/atraumatic; Hearing grossly intact Neck: Supple; Trachea midline; Neg JVD Extremities: Neg cyanosis or edema Neurological: Speech clear Psychiatric: Appropriate mood/affect Results & Data Results & Data ([facility]) Vital Signs (Past 12 Hours) Vital Signs Temp Pulse Resp BP Pulse Ox 06/07/21 07:41 36.5 C 69 16 115/69 97 06/06/21 22:48 36.5 C 75 18 130/72 97 PG Care Time/CCT Total # of Minutes Spent Total Time Spent with Patient: Total time spent is greater than 50% in coordination of care (as documented) at patient's floor/unit and/or counseling patient: Coding Level of Care Code 91425 Subseq Hosp Care Lvl 1 Diagnoses Adrenal insufficiency E27.40 Recurrent left pleural effusion J90 Anemia D64.9 Hypotension I95.9 Dysphagia R13.10 CKD (chronic kidney disease) stage 2, GFR 60-89 ml/min N18.2 Chronic hypoxemic respiratory failure J96.11 COPD (chronic obstructive pulmonary disease) with chronic bronchitis J44.9 History of lung cancer Z85.118 Hyponatremia E87.1 Peripheral arterial disease I73.9 Bilateral carotid artery occlusion I65.23 Unstageable pressure ulcer of left heel L89.620 Bipolar disorder F31.9 Most recent bipolar episode type: most recent episode unspecified type Constipation K59.00 Right shoulder pain M25.511 (1) Bipolar disorder Most recent bipolar episode type: most recent episode unspecified type
[2021-06-07 10:08] LABS: Hematocrit (blood only) 37.5 % (42-52); Hemoglobin 12.1 g/dL (14.0-18.0); Mean Corpuscular Hemoglobin 26.5 pg (25-34); Mean Corpuscular Hgb Conc 32.3 g/dL (32-36); Mean Corpuscular Volume 82.2 fL (80-100); Mean Platelet Volume 8.9 fL (7.4-10.4); Platelet Count 313 K/uL (130-400); RDW Coefficient of Variation 19.8 % (11.5-14.5); RDW Standard Deviation 59.5 fL (36.4-46.3); Red Blood Count 4.56 M/uL (4.7-6.1); White Blood Count 9.44 K/uL (4.8-10.8)
[2021-06-07] MEDS: VALPROIC ACID SOLN 250 MG/5 ML UDC PO SCH (10:24)
[2021-06-07 10:36] LABS: BUN Creatinine Ratio 34.7 (10-20); Calcium 9.1 mg/dl (8.5-10.1); Creatinine Clr Calc Pharmacy 105.7 ml/min; Est GFR (African American) 121.4 ml/min; Est GFR (Non-African American) 104.8 ml/min; Potassium 4.2 mmol/L (3.5-5.1)
[2021-06-07] MEDS: QUEtiapine FUMARATE 25 MG TABLET PO SCH (19:55)
[2021-06-07] MEDS: VALPROIC ACID SOLN 500 MG/10 ML UDC PO SCH (19:56)
[2021-06-08] MEDS ORDERED: HYDROCORTISONE 10 MG TAB PO SCH (09:00)
[2021-06-08] MEDS: FLUTICASONE FUROATE 100MCG 14 PUFFS/INHALER INH SCH (09:56)
[2021-06-08] MEDS: VALPROIC ACID SOLN 250 MG/5 ML UDC PO SCH (09:56)
[2021-06-08] MEDS: FOLIC ACID 1 MG TAB PO SCH (09:56)
[2021-06-08] MEDS: CHOLECALCIFEROL 1,000 UNITS 25 MCG TAB PO SCH (09:57)
[2021-06-08] MEDS: ATORVASTATIN 40 MG TAB PO SCH (09:57)
[2021-06-08] MEDS: ASCORBIC ACID 500 MG TAB PO SCH (09:57)
[2021-06-08] MEDS: buPROPion HCl 100 MG TABLET PO SCH (09:57)
[2021-06-08] MEDS: UMECLIDINIUM/VILANTEROL 62.5/25MCG 7 PUFFS/INHALER INH SCH (10:01)
[2021-06-08] MEDS: LANSOPRAZOLE 30 MG SOLTAB PO SCH (10:06)
[2021-06-08] MEDS: MICONAZOLE NITRATE POWDER 43 GM EXT SCH (10:07)
--- NOTE | 2021-06-08 10:07 | Discharge Summary ---
Date of Service June 08, 2021 Admission HPI Per Admitting Provider This is a 66-year-old male past medical history of COPD, non-small cell lung carcinoma, CKD stage II that presents with a change in mental status and generalized weakness. Patient is awake and alert and able to answer questions although I am unsure how accurate he is. Unfortunately, he is alone in the room. Patient had been seen here in the emergency room 03/13. He does tell me that he had will gone to bed on 03/12 and fallen out of bed sometime overnight. He was not able to get up under his own power and spent most of the day on the floor. Around 3 in the afternoon he was able to call his girlfriend who was able to get him to the emergency room. In route the patient allegedly had a blood pressure of 60/30 but all blood pressures documented by the ER were hypertensive range. Patient was subsequently discharged after work-up revealed only some anemia. Patient today is a little less reliable. He tells me that he was again feeling very weak but denies any fall. He tells me that there is a woman that lives above him who owns his apartment, she came down to see him and was insisted that he come back to the emergency room because he just did not look right. Patient did admit to significant weakness but does not feel that he was particularly ill at the time. However, when he presents to the emergency room he was once again very hypotensive with documented initial blood pressure of 88/56. At the time my evaluation his blood pressure is 122/78. Unfortunately, the patient's anemia has worsened his hemoglobin is now 7.3. Patient denies any other symptoms such as chest pain, palpitations, fever or chills. He does note he is weak. He denies any gross bleeding, either rectally or from any other orifice. Of note, patient is stage III non-small cell lung carcinoma. He follows with oncology we cannot recall his name, I do see a note from [address] Keene's office. Patient does follow with Dr. Troy from pulmonology as well. He has had chronic left-sided pleural effusions, and these have been tapped previously but have never been positive for malignancy. Principal Diagnosis Adrenal Insufficiency with Hypotension/Orthostasis; Weakness Discharge Exam PHYSICAL EXAM General Appearance: thin male in NAD who is A&O x 3 HEENT: Head is normocephalic/atraumatic; Hearing grossly intact Neck: Supple; Trachea midline; Neg JVD Lungs: CTA bilaterally but diminished at L base; no accessory muscle use Heart: RRR Extremities: Neg cyanosis or edema Neurological: Speech clear Psychiatric: Appropriate mood/affect Discharge Data Allergies Allergy/AdvReac Type Severity Reaction Status Date / Time ciprofloxacin Allergy Intermediate RASH Verified 04/27/21 08:29 vancomycin Allergy Intermediate RASH Verified 04/27/21 08:29 sulfamethoxazole Allergy Unknown Unknown Verified 04/27/21 08:29 [From Bactrim] trimethoprim [From Bactrim] Allergy Unknown Unknown Verified 04/27/21 08:29 Consultations 03/17/21 18:14 ED Decision to Admit Stat 03/18/21 01:47 Consult Hematology Routine 03/18/21 11:46 Consult Pulmonology Routine 04/09/21 09:50 Consult Gastroenterology Routine Procedures Performed Operation Date: 04/10/21 13:00 <No data on this case meets the specified criteria> Operation Date: 04/10/21 16:15 <No data on this case meets the specified criteria> Operation Date: 04/13/21 16:30 Actual Procedures p EGD Biopsy Dilatation - Asim Randolph MD Operation Date: 04/27/21 16:15 Actual Procedures p EGD Dilatation - Asim Randolph MD Ordered Studies Abdomen/Pelvis CT 03/17/21 15:37 CT angio chest PE protocol, CT abd pelvis IV con only HISTORY: 66 years-old Male with PE. Acute chest and abdominal trauma status post fall. Acute generalized chest and abdominal pain TECHNIQUE: Multiple CTA images of the chest were obtained after the intravenous administration of 116 ml Optiray. Coronal and sagittal MIPS were obtained from the axial data set and were submitted for review. All measurements were obtained according to NASCET criteria. CT abdomen and pelvis with IV contrast only was also obtained. A dose lowering technique was utilized adhering to the p rinciples of JHONATAN. COMPARISON: CT lumbar spine 03/13/2021, CTA chest 07/16/2020, CT abdomen and pelvis 05/17/2018 FINDINGS: CTA: The heart is mildly enlarged. No pericardial effusion. Extensive coronary artery calcifications. Atherosclerosis of the thoracic aorta without aneurysm or dissection. Carotid occlusion of the common carotid arteries redemonstrated. The pulmonary arterial tree is opacified to level of the proximal subsegmental branches and demonstrates no filling defects to suggest thromboembolic disease. CT CHEST: No thyroid nodule. There is no new adenopathy of the chest. Bilateral perihilar consolidation with air bronchograms is redemonstrated and appears similar to mildly progressed from comparison. Moderate sized left pleural effusion has decreased in size from comparison. Small right pleural effusion. Bronchial wall thickening. Subpleural groundglass opacities which are most pronounced in the right lung apex are also unchanged. Mild intralobular septal thickening. Dependent left lung base consolidation. Mild groundglass densities of the right lung base. No suspicious pulmonary nodules or masses. Tracheobronchial secretions. Chronic pleural thickening of the left hemithorax. Unremarkable soft tissues. No acute fracture. Chronic left rib fracture deformities. Degenerative changes of the shoulders and spine. CT ABDOMEN/PELVIS: NO pneumatosis or pneumoperitoneum. The spleen, mildly atrophic pancreas, adrenal glands and liver appear unremarkable. The gallbladder is decompressed. Mild wall thickening of the fundus on image 92 is similar to comparison suspicious for adenomyomatosis. No biliary ductal dilation. Patency of the portal vein. No hydronephrosis. 10 mm left renal cyst. Mild urinary bladder wall thickening with partial distention. Unremarkable prostate. Extensive atherosclerotic plaque the abdominal aorta and branch vessels. Atherosclerotic plaque of the abdominal aorta just below the level of the renal arteries on image 164 is similar to comparison resulting in approximately 50% luminal narrowing. There is stenosis of the bilateral renal arteries. There is occlusion versus high-grade stenosis of the left common iliac artery with minimal flow noted within the left external iliac artery, unchanged. Bifemoral bypass graft appears patent. No adenopathy. Unremarkable IVC. No bowel obstruction or bowel wall thickening. Scattered colonic air-fluid levels are noted with mild fecal retention. Normal appendix. Scattered small bowel air-fluid levels are also noted. Degenerative changes of the spine, pelvis and hips. No acute fracture or subluxation identified. Sclerotic changes of the left medial femoral neck are unchanged. Several Schmorl's nodes are redemonstrated. IMPRESSION: 1. No pulmonary emboli. 2. Moderate left pleural effusion has mildly decreased in size from 07/16/2020. Small right pleural effusion. 3. Dependent consolidation of the left lung base favors atelectasis. Pneumonia considered less likely. 4. Perihilar consolidation with air bronchograms suggestive of fibrosis redemonstrated. 5. Mild intralobular septal thickening suggestive of pulmonary edema. 6. No acute posttraumatic intra-abdominal or intrapelvic abnormality identified. 7. Scattered air-fluid levels throughout loops of nondilated large and small bowel may be physiologic or represent a nonspecific enteritis with diarrheal illness. 8. Additional findings as above. ACT 112: Negative or not required by law. The above report was generated using voice recognition software. It may contain grammatical, syntax or spelling errors. Electronically signed by: Александр Moore M.D. 03/17/2021 5:[address] 03/17/21 15:37 CT head/brain wo con CLINICAL HISTORY: 66 years-old Male with AMS. Acutely altered mental status TECHNIQUE: Multiple axial CT images of the head were obtained without contrast. A dose lowering technique was utilized adhering to the principles of ALARA. COMPARISON: Head CT 03/13/2021 FINDINGS: No acute intracranial hemorrhage, midline shift, intracranial mass, hydrocephalus, territorial ischemia or abnormal extra-axial collection. Age-rela danica involutional changes. White matter hypodensities suggestive of chronic microvascular ischemic disease. 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 Cerebral vascular calcifications. Study is mildly motion degraded. The calvarium is intact. The paranasal sinuses, mastoid air cells, and middle ear cavities are clear. IMPRESSION: 1. No acute intracranial abnormality. 2. Chronic findings as above. ACT 112: Negative or not required by law. The above report was generated using voice recognition software. It may contain grammatical, syntax or spelling errors. Electronically signed by: Александр Moore M.D. 03/17/2021 5:22 PM Chest X-Ray 03/17/21 15:38 XR chest 1V portable HISTORY: 66 years-old Male SEPSIS acute sepsis COMPARISON: Chest radiograph 03/13/2021 TECHNIQUE: Portable AP view the chest FINDINGS: Cardiac silhouette is unchanged. Unchanged left greater than right pleural effusions. Persistent right perihilar opacities. No significant change of the left greater than right bilateral airspace opacities. Mildly progressed interstitial coarsening. No pneumothorax. Degenerative changes of the shoulders and spine. Healed chronic left-sided rib fractures. Right shoulder rotator cuff calcific tendinosis. IMPRESSION: 1. Mildly progressed interstitial coarsening may represent pulmonary edema. 2. Otherwise stable exam with left greater than right pleural effusions and left lung predominant airspace opacities. ACT 112: Negative or not required by law. The above report was generated using voice recognition software. It may contain grammatical, syntax or spelling errors. Electronically signed by: Александр Moore M.D. 03/17/2021 4:02 PM Chest CTA 03/17/21 15:59 CT angio chest PE protocol, CT abd pelvis IV con only HISTORY: 66 years-old Male with PE. Acute chest and abdominal trauma status post fall. Acute generalized chest and abdominal pain TECHNIQUE: Multiple CTA images of the chest were obtained after the intravenous administration of 116 ml Optiray. Coronal and sagittal MIPS were obtained from the axial data set and were submitted for review. All measurements were obtained according to NASCET criteria. CT abdomen and pelvis with IV contrast only was also obtained. A dose lowering technique was utilized adhering to the principles of ALARA. COMPARISON: CT lumbar spine 03/13/2021, CTA chest 07/16/2020, CT abdomen and pelvis 05/17/2018 FINDINGS: CTA: The heart is mildly enlarged. No pericardial effusion. Extensive coronary artery calcifications. Atherosclerosis of the thoracic aorta without aneurysm or dissection. Carotid occlusion of the common carotid arteries redemonstrated. The pulmonary arterial tree is opacified to level of the proximal subsegmental branches and demonstrates no filling defects to suggest thromboembolic disease. CT CHEST: No thyroid nodule. There is no new adenopathy of the chest. Bilateral perihilar consolidation with air bronchograms is redemonstrated and appears similar to mildly progressed from comparison. Moderate sized left pleural effusion has decreased in size from comparison. Small right pleural effusion. Bronchial wall thickening. Subpleural groundglass opacities which are most pronounced in the right lung apex are also unchanged. Mild intralobular septal thickening. D ependent left lung base consolidation. Mild groundglass densities of the right lung base. No suspicious pulmonary nodules or masses. Tracheobronchial secretions. Chronic pleural thickening of the left hemithorax. Unremarkable soft tissues. No acute fracture. Chronic left rib fracture deformities. Degenerative changes of the shoulders and spine. CT ABDOMEN/PELVIS: NO pneumatosis or pneumoperitoneum. The spleen, mildly atrophic pancreas, adrenal glands and liver appear unremarkable. The gallbladder is decompressed. Mild wall thickening of the fundus on image 92 is similar to comparison suspi cious for adenomyomatosis. No biliary ductal dilation. Patency of the portal vein. No hydronephrosis. 10 mm left renal cyst. Mild urinary bladder wall thickening with partial distention. Unremarkable prostate. Extensive atherosclerotic plaque the abdominal aorta and branch vessels. Atherosclerotic plaque of the abdominal aorta just below the level of the renal arteries on image 164 is similar to comparison resulting in approximately 50% luminal narrowing. There is stenosis of the bilateral renal arteries. There is occlusion versus high-grade stenosis of the left common iliac artery with minimal flow noted within the left external iliac artery, unchanged. Bifemoral bypass graft appears patent. No adenopathy. Unremarkable IVC. No bowel obstruction or bowel wall thickening. Scattered colonic air-fluid levels are noted with mild fecal retention. Normal appendix. Scattered small bowel air-fluid levels are also noted. Degenerative changes of the spine, pelvis and hips. No acute fracture or subluxation identified. Sclerotic changes of the left medial femoral neck are unchanged. Several Schmorl's nodes are redemonstrated. IMPRESSION: 1. No pulmonary emboli. 2. Moderate left pleural effusion has mildly decreased in size from 07/16/2020. Small right pleural effusion. 3. Dependent consolidation of the left lung base favors atelectasis. Pneumonia considered less likely. 4. Perihilar consolidation with air bronchograms suggestive of fibrosis redemonstrated. 5. Mild intralobular septal thickening suggestive of pulmonary edema. 6. No acute posttraumatic intra-abdominal or intrapelvic abnormality identified. 7. Scattered air-fluid levels throughout loops of nondilated large and small bowel may be physiologic or represent a nonspecific enteritis with diarrheal illness. 8. Additional findings as above. ACT 112: Negative or not required by law. The above report was generated using voice recognition software. It may contain grammatical, syntax or spelling errors. Electronically signed by: Александр Moore M.D. 03/17/2021 5:[address] 03/17/21 16:08 CT cervical spine wo con CT DOSE: 2022.57 mGy.cm CLINICAL HISTORY: 66 years-old Male with fall. Acute head and neck injury status post fall COMPARISON: Head CT of same day, CT cervical spine 02/24/2021 TECHNIQUE: Multiple axial CT images of the cervical spine were obtained without contrast. A dose lowering technique was utilized adhering to the principles of ALARA. FINDINGS: Moderate to severe multilevel intervertebral disc space narrowing and spondylitic spurring with moderate facet arthrosis redemonstrated. No acute fracture or subluxation. Multilevel neural foraminal narrowing. The mastoid air cells are clear. Extensive calcified plaque of the carotid arteries. No pneumothorax. Pleural parenchymal scarring of the right lung apex. No prevertebral edema. IMPRESSION: No acute cervical spine fracture or subluxation. ACT 112: Negative or not required by law. The above report was generated using voice recognition software. It may contain grammatical, syntax or spelling errors. Electronically signed by: Александр Moore M.D. 03/17/2021 5:40 PM Ankle X-Ray 03/18/21 11:59 LEFT ANKLE 3 VIEWS CLINICAL HISTORY: Left heel ulcer. FINDINGS: 3 views of the left ankle are correlated with radiographs of the left foot dated 07/09/2017. The skeletal structures are osteopenic. No fracture is identified. The ankle mortise is intact. There are large dorsal and plantar calcaneal enthesophytes. A cutaneous ulceration is suggested along the dorsal aspect of the heel. There is no underlying bony erosion or periostitis to suggest osteomyelitis. Atherosclerotic calcification is noted in the regional arteries. IMPRESSION: 1. No acute bony abnormality is identified. 2. A soft tissue ulcer and edema is suggested along the dorsal aspect of the heel. 3. Heel spurs. Electronically signed by: Tomy Thompson M.D. 03/18/2021 1:37 PM Brain MRI 03/18/21 12:50 MR brain wo/w con INDICATION: [place] ^^known NSCC lung ca. ?Metastatic disease TECHNIQUE: Multiplanar and multisequence MR images of the brain were obtained prior to and following administration of gadolinium contrast. Comparison: Comparison is made to MRI brain 03/15/2017 FINDINGS: No abnormal restricted diffusion is identified. Foci of T2 and FLAIR hyperintensity are noted in the paraventricular areas consistent with chronic small vessel ischemic disease. Ex vacuo ventriculomegaly and sulcal enlargement is noted compatible with diffuse encephalomalacia. There is no evidence of acute intraparenchymal hemorrhage. No extra axial fluid collections are seen. There are no masses, mass effect, or midline shift. No abnormal enhancement is seen. The corpus callosum, pituitary gland, and cerebellar tonsils appear grossly unremarkable. Flow voids are not well visualized in either the left or right internal carotid arteries. The [place] is opacified, possibly from collateral posterior flow. The imaged portions of the paranasal sinuses, mastoid air cells, and orbits are unremarkable. IMPRESSION: No evidence of metastatic disease. The bilateral internal carotid arteries are not seen to be well opacified, however the vessels of the [place] are opacified, possibly from posterior cerebral flow. ACT 112: Negative or not required by law. Electronically signed by: Lanre Douglass M.D. 03/18/2021 11:18 PM Chest X-Ray 03/22/21 08:59 XR chest 1V portable CLINICAL HISTORY: Possible aspiration. History of lung cancer. COMPARISON STUDY: Chest radiograph and chest CT March 17, 2021. FINDINGS: There is no pneumothorax. A moderate left pleural effusion is similar to prior exam. Asymmetric left lung opacity and right perihilar opacity is unchanged. Cardiomediastinal silhouette is stable. There may be right basilar opacity. IMPRESSION: 1. Possible right basilar opacity. 2. Otherwise, no change in appearance of the chest with a moderate left pleural effusion and right perihilar opacity which is chronic. ACT 112: Negative or not required by law. Electronically signed by: Delio Head M.D. 03/22/2021 10:14 AM Chest X-Ray 05/12/21 11:36 XR chest 1V portable CLINICAL HISTORY: SOB; Aspiration. COMPARISON STUDY: 03/22/2021 TECHNIQUE: 1 view of the chest FINDINGS: Single frontal view of the chest demonstrates the cardiomediastinal silhouette to be within normal limits. Compared to the previous examination, there is significant increased opacity of the left hemithorax. Chronic left pleural effusion is present as well. There is a right suprahilar infiltrate now seen. No definite evidence for aspiration pneumonitis is identified. CT of the chest could be performed for further evaluation. There is no evidence for vascular congestion. There is no acute osseous pathology. IMPRESSION: Interval worsening of left lung opacity with persistent left pleural effusion. While the findings are suspicious for pneumonia, they are not typical for aspiration. There is also a right suprahilar infiltrate present. CT of the chest could be obtained for further evaluation. ACT 112: Negative or not required by law. Electronically signed by: Peewee Holland M.D. 05/12/2021 1:[address] 05/12/21 16:25 CT OF THE CHEST WITH IV CONTRAST CLINICAL HISTORY: Right hilar infiltrate. Short of breath. Pneumonia. History of lung carcinoma. COMPARISON STUDY: Chest CT March 17, 2021. Chest radiograph performed earlier today. TECHNIQUE: Following IV administration of 94 mL of Optiray, helical axial images of the chest were obtained. Sagittal and coronal reconstructions were viewed as well as maximal intensity projections on an independent 3-D workstation. Automated exposure control was utilized for the study. A dose lowering technique was utilized adhering to the principles of ALARA. CT DOSE: 432.60 mGy.cm FINDINGS: A moderate to large left pleural effusion has increased in size since CT of March 17, 2021. Pleural thickening and enhancement is nonspecific. Extensive subpleural left lower lobe opacity is noted with volume loss. Bilateral perihilar opacities are unchanged from earlier exams. These favor postradiation change. There is no pneumothorax. Trace right pleural effusion is present. No enlarged axillary, mediastinal or hilar lymph nodes are noted. There are prominent paraesophageal lymph nodes measure up to 8 mm short axis diameter. Size of the heart is normal. There is extensive coronary artery calcification. There is no pericardial effusion. Mild interlobular septal thickening within the right lower lobe is noted. Old left-sided rib deformities are present. There are no suspicious lesions within visualized portions of the bony thorax. No thoracic aortic dissection is present. There is no central pulmonary embolus. Visualized portions of the upper abdomen are unremarkable. IMPRESSION: 1. Increase in size of a moderate to large left pleural effusion since chest CT of March 17, 2021. Left pleural thickening and enhancement is a nonspecific finding. 2. Associated extensive subpleural left lower lobe airspace opacity with volume loss. This favors atelectasis/round atelectasis however should be assessed on subsequent exams. 3. No change in bilateral perihilar opacities which favor post radiation change. ACT 112: Negative or not required by law. Electronically signed by: Delio Head M.D. 05/12/2021 5:59 PM Chest X-Ray 05/18/21 08:00 XR chest 1V portable HISTORY: eval for progression of effusion COMPARISON: Chest 05/12/2021. FINDINGS: No pneumothorax. Moderate left pleural effusion is again noted. This is similar to the prior study. The heart remains borderline enlarged. There is perihilar interstitial/vascular thickening suggestive of mild congestive change. No significant right pleural effusion. No rib fractures. Bilateral perihilar airspace opacities persist. Left lower lobe density is also unchanged. IMPRESSION: No significant change compared to the prior study. Perihilar airspace opacities and a moderate left pleural effusion persists. ACT 112: Negative or not required by law. Electronically signed by: Patricio Burger M.D. 05/18/2021 9:03 AM Chest X-Ray 05/20/21 08:00 XR chest 2V PA/lateral HISTORY: 66 years-old Male Follow up follow-up study in a patient with left pleural effusion and bilateral pulmonary opacities COMPARISON: Chest radiograph 05/18/2021, chest CT 05/12/2021 TECHNIQUE: AP and lateral views of the chest FINDINGS: Cardiomegaly. Unchanged moderate to large left pleural effusion with left lung pulmonary opacities and volume loss. Perihilar fibrosis redemonstrated with interstitial coarsening of the lungs. No pneumothorax. Degenerative changes of the shoulders and spine. IMPRESSION: 1. Unchanged moderate to large left pleural effusion with left lung consolidation. 2. Bilateral perihilar densities redemonstrated suggestive of fibrosis. ACT 112: Negative or not required by law. The above report was generated using voice recognition software. It may contain grammatical, syntax or spelling errors. Electronically signed by: Александр Moore M.D. 05/20/2021 10:51 AM Chest X-Ray 05/22/21 08:00 XR chest 1V portable CLINICAL HISTORY: Pleural effusion TECHNIQUE: Single frontal radiograph of the chest was obtained. Comparison: Comparison is made to chest 2 views 05/20/2021 FINDINGS: No lines and tubes are seen. The cardiomediastinal silhouette is stable. Stable left pleural effusion with underlying airspace opacity. Redemonstration of perihilar fibrosis. IMPRESSION: Stable left pleural effusion with underlying airspace opacity compatible with atelectasis, pneumonia, and/or aspiration. ACT 112: Negative or not required by law. Electronically signed by: Lanre Douglass M.D. 05/22/2021 8:01 AM Chest X-Ray 05/24/21 08:00 XR chest 2V PA/lateral HISTORY: 66 years-old Male f/u effusions/atelectasis follow-up study in a patient with left pleural effusion and bilateral pulmonary opacities COMPARISON: Chest radiographs 05/22/2021, 05/20/2021 TECHNIQUE: PA and lateral views of the chest FINDINGS: Cardiomegaly. Unchanged moderate to large left pleural effusion with left lung airspace opacities and volume loss. Perihilar fibrosis with interstitial coarsening of the lungs redemonstrated. No pneumothorax. Degenerative changes of the shoulders and spine. IMPRESSION: 1. Unchanged moderate to large left pleural effusion with left lung consolidation. 2. Bilateral perihilar densities suggestive of fibrosis. ACT 112: Negative or not required by law. The above report was generated using voice recognition software. It may contain grammatical, syntax or spelling errors. Electronically signed by: Александр Moore M.D. 05/24/2021 9:33 AM Chest X-Ray 05/25/21 06:00 XR chest 2V PA/lateral HISTORY: 66 years-old Male f/u effusion, consolidation follow-up study in a patient with pleural effusion COMPARISON: Chest radiographs 05/24/2021 TECHNIQUE: PA and lateral views of the chest FINDINGS: Cardiomegaly. Mildly increased size of the moderate to large left pleural effusion with left lung airspace opacities and volume loss. Perihilar fibrosis with interstitial coarsening of the lungs redemonstrated. No pneumothorax. Trace right pleural effusion. Pulmonary vascular congestion with interstitial coarsening is new from prior. Degenerative changes of the shoulders and spine. IMPRESSION: 1. Cardiomegaly with pulmonary vascular congestion and interstitial coarsening suggestive of pulmonary edema. 2. Mildly increased size of the moderate to large left pleural effusion with left lung consolidation. 3. Bilateral perihilar densities suggestive of fibrosis. 4. Trace right pleural effusion. ACT 112: Negative or not required by law. The above report was generated using voice recognition software. It may contain grammatical, syntax or spelling errors. Electronically signed by: Александр Moore M.D. 05/25/2021 8:28 AM Hospital Course (1) Adrenal insufficiency: Blood pressure better since hydrocortisone was increased to 20mg in AM and 10mg in PM-- will start to wean back to prior dosing over time (10 mg AM and 5 mg PM) - change to 15 mg AM and 10 mg PM and Rx provided. has been asymptomatic . Admitted with weakness, nausea, worsening hyponatremia, orthostatic hypotension ongoing for a long time More of a chronic presentation CT abd/pel on 03/17/21 with normal adrenal glands; Brain MRI 03/18/21 normal Perhaps related to autoimmune disorder? - Will need f/u as Endocrine as outpt (2) Recurrent left pleural effusion: Patient remains afebrile - procalcitonin WNL --previous CXR and cough concerning for possible PNA however CTA more suggestive of worsening pleural effusion - still not requiring supplemental O2 --since no defined pneumonia put on Doxycycline x 7 days, was completed on 05/23 Repeat CXR No significant change compared to the prior study. Perihilar airspace opacities and a moderate left pleural effusion persists. Appropriate saturations on RA and no respiratory distress. Lungs sound improved on examination based on previous documentation. --> CXR 05/20 with mod L effusion with consolidation from effusions/laying --> at risk for loculation however asymptomatic and would not want any tx if malignant. Pleural effusion has been present since March 2021 --> CXR 05/22 with stable effusion with underlying airspace opacity compatible with atelectasis, pneumonia, and/or aspiration. Continue incentive spirometer -- has not been using much Pulmonology consulted/signed off - discussed with pulm for consideration for tap as BP limits diuretics and may not be that beneficial given the chronic nature of his effusion; no indication for thoracentesis per pulmonary med as no need for supplemental O2; has required thoracentesis in the past (3) Anemia: - hgb was 7.3 on arrival -- up to 10s without intervention/no transfusion- has waxed and waned between 8-10. Most likely margin of error in the lab - Microcytic - stool for occult blood negative x 2 - Did have a W/U and Seen by established reading specialist/oncologist-- started on Ferrous sulfate/folic acid - EGD on 04/13 - dilated esophagus due to benign appearing esophageal stenosis; gastritis with biopsy obtained - repeated endoscopy for retreatment on 04/27/21 - Pathology - chronic gastritis, mild; neg H. pylori, no metaplasia, dysplasia, or malignancy --> Venofer given 05/24, continue to follow iron stores periodically, follow periodic CBC. (4) Hypotension: - Initially thought secondary to Seroquel and metoprolol side effect - Improved w/ hydrocortisone, and dc of home metoprolol -With blood pressure still little bit on the low side intermittently but much improved; asymptomatic (5) Dysphagia: Had complaint of feeling like food is getting stuck with swallowing on 04/06 - Has had intermittent episodes of vomiting after taking pills throughout his hospital stay - much improved since second dilation and no further issues Has a h/o esophageal strictures requiring dilatation in 2017 He would not be able to withstand a barium swallow as he cannot stand up for more than a few seconds to a minute at a time Now s/p esophageal dilatation on 04/13 and 04/27 for severe restriction and doing much better with swallowing - Tolerating diet - Continue Prevacid (d/t soluble nature and issues with pill swallowing) -- consider increasing to BID while on steroids for adrenal insufficiency - changed bigger pills to liquids - GI recommending F/U dilation/EGD x 6 weeks which would be 1/3 - will need outpatient F/U as patient doing well from a swallowing perspective and can finally return home. Can do this as outpatient ([facility]) (6) CKD (chronic kidney disease) stage 2, GFR 60-89 ml/min: - Renal function appears to be at baseline in this patient, continue to monitor periodically (7) Chronic hypoxemic respiratory failure: - chronic. No acute issues - continue O2 prn-none needed for weeks (8) COPD (chronic obstructive pulmonary disease) with chronic bronchitis: - Patient with a history of COPD, still smoking despite lung cancer diag nosis. Patient now greater than 80 days admission -strongly encourage patient to completely abstain from cigarettes. He states that he will try but it is a habit. - ? reoccurrence of non-small cell lung CA on imaging vs post-radiation changes - Trelegy (ICS/AC/LABA) as an outpatient -->substituted Anoro Ellipta (AC/LABA) and Arnuity Ellipta (ICS) while inpatient - Oxygenating well on room air - Supplemental oxygen as needed to maintain SaO2 between 88 and 92% -has not needed O2 in a long time - pulmonology consulted (previously followed w/ Dr. Morin), d/t pleural effusion on admission - has since signed off (9) History of lung cancer: - Hematology/oncology consulted - will worm picker again as an outpatient on discharge, however not sure if patient would be a good candidate for any treatment moving forward given noncompliance - MRI brain w/wo contrast with no evidence of metastatic disease -We will defer to outpatient oncology for further management. (10) Hyponatremia: - improved after starting hydrocortisone, however remains stable in range 128-low 130s - 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 - Na 131 on 06/07 (11) Peripheral arterial disease: - Started on Plavix and STATIN - History of aortofemoral bypass per prior notes (12) Bilateral carotid artery occlusion: - started Plavix and statin this admission (13) Unstageable pressure ulcer of left heel: - no osteo continue local care (14) Bipolar disorder: stable - continue depakote but changed to liquid as tabs large and hard to swallow - continue wellbutrin and reduced dose of seroquel (15) Constipation: - bowel protocol ordered on board; adequate bowel movements - continue senna/docusate - Miralax PRN (16) Right shoulder pain: - Voltaren gel to right shoulder Disposition: Lives alone in [place] and is quite debilitated (prolonged course of mobility issues) - initially looked for SNFs - however patient really wants to go home and no longer interested in rehab - Sister (POA), ex-, friends, and episcopal members (periodically) are in agreement to home with their support and home services; was able to qualify for more caregiver services He is not the most ideal home discharge given his mobility issues. However this is chronic and was non-ambulatory prior to being admitted. He did improve with transfers and would periodically stand for short moments which is more than he has. He is of sound mind and did not want rehab any longer. He has been admitted for 80 days. He would be at risk for readmission due to his immobility but he is medically suitable for discharge. He wants to return home and maximized services best to our abilities for him. Total Time Total Time Spent Total Time Spent (In Minutes): Spent greater than 30 minutes preparing patient for discharge. This includes discussion with patient/family, assessment, intervention, medication reconciliation, and coordination of care. Discharge Plan Discharge Items Patient Disposition: Home - Home Health Services Reason For Visit: ANEMIA, FALLS Discharge Diagnosis: Orthostatic Hypotension; Falls; Weakness Activity: Resume your previous activity Non-emergency contact: Primary Care Provider Call non-emergency contact if: you have any medication questions, your symptoms worsen and you have a fever Follow-up/Referrals: John Johnson CRNP [Primary Care Provider] - 06/15/21 10:20 am Diet: Regular Diet Texture: Easy to Chew Addtl Attending Provider Instructions: Adrenal Insufficiency: - You were found to have a lower amount of natural occurring steroids in the body. When this happens you can get weak and have lower blood pressures that can make you dizzy - You were started on Hydrocortisone which is a steroid. This helps replace the steroid your body isn't making - You will take Hydrocortisone 15 mg in the morning and then take 10 mg around 3 PM - It would be recommended to see a special type of doctor called an Hotel Maintenance Engineer to monitor this. Your family doctor can assist with a referral Pneumonia/Pleural Effusion: - You completed a course of antibiotics while hospitalized and no further needing treatment for this - You do have extra fluid around your lungs called a pleural effusion. Thankfully you do not need oxygen right now but if you do get more short of breath you can use your oxygen at home but may need to see your lung doctor to get that fluid drained. However, you do not need it drained right now - Recommend to continue your previously prescribed inhalers - With your history of lung cancer, Dr. Keene from the cancer center can continue to follow-up with you as an outpatient to see if any additional testing/treatments are warranted. Your family doctor can assist with this as well Swallowing Issues: - While hospitalized you had two scopes to stretch out your esophagus to make swallowing easier - You may need additional scopes in the future to help keep this stretched - You were seen by the [facility] team (Dr. Randolph) - you will need a follow-up with their group and this can be arranged once you get home - You should continue the Prevacid which is the tablet that dissolves in your mouth to help with stomach irritation Peripheral Arterial Disease and Carotid Artery Occlusion: - You have a history of having plaques in your blood vessels. You were started on Plavix and Atorvastatin to help control this a bit better and help promote better heart health. Bipolar Disorder: - We had to make some changes to your medications to make it easier for you to swallow and to help with with mood and blood pressure - Your Depakote was changed to liquid. You will take Valproic acid 750 mg in the morning and 500 mg in the evening - Your Seroquel was reduced to 25 mg at night - Your Wellbutrin was kept the same at 100 mg daily Left Heel: - It is important to keep an eye on your left heel and make sure to not constantly keep pressure on this You now have more services to help you out at home. It is important to allow them in to help you because this will keep you at home. Even on days that you may be feeling well and need less assistance, it is important to allow them to help you out so you can continue to get stronger and remain independent. Pending Studies at Discharge: No Stand-Alone Forms: My [facility] [address], Smoking Cessation Medications and DC Order Prescriptions: New atorvastatin 40 mg Tablet 40 mg PO QAM 30 Days Qty: 30 RF: 0 clopidogrel 75 mg Tablet 75 mg PO QAM 30 Days Qty: 30 RF: 0 valproic acid (as sodium salt) 500 mg/10 mL (10 mL) Solution 500 mg PO PM 30 Days Qty: 300 RF: 0 quetiapine 25 mg Tablet 25 mg PO HS 30 Days Qty: 30 RF: 0 valproic acid (as sodium salt) 250 mg/5 mL (5 mL) Solution 750 mg PO QAM 30 Days Qty: 450 RF: 0 lansoprazole [Prevacid SoluTab] 30 mg Tablet,Disintegrat, Delay Rel 30 mg PO DAILY 30 Days Qty: 30 RF: 0 hydrocortisone [Cortef] 10 mg Tablet 10 mg PO DAILY@1500 30 Days Qty: 30 RF: 0 hydrocortisone [Cortef] 10 mg Tablet 15 mg PO QAM 30 Days Qty: 45 RF: 0 folic acid 1 mg Tablet 1 mg PO QAM 30 Days Qty: 30 RF: 0 Continued acetaminophen 500 mg capsule 500 mg PO Q6H PRN (Reason: fever or pain) RF: 0 ascorbic acid (vitamin C) 500 mg capsule 500 mg PO BID RF: 0 cholecalciferol (vitamin D3) 1,000 unit capsule 1,000 units PO DAILY RF: 0 ketoconazole 2 % cream 1 applic TOP DAILY Qty: 90 RF: 3 bupropion HCl 100 mg tablet 100 mg PO DAILY Qty: 90 RF: 1 Hold Instructions: RX BY PSYCHIATRY Trelegy Ellipta 100-62.5-25 mcg blister with device 1 inh inhalation Q24H Qty: 60 RF: 5 docusate sodium 100 mg capsule 100 mg PO DAILY PRN (Reason: Constipation) RF: 0 albuterol sulfate [Ventolin HFA] 90 mcg/actuation HFA aerosol inhaler 2 puffs INH QID PRN (Reason: shortness of breath or wheezing) Qty: 18 RF: 4 melatonin 5 mg Tablet 5 mg PO HS PRN (Reason: Sleep) RF: 0 Discontinued ibuprofen 600 mg tablet 600 mg PO Q6H PRN (Reason: pain) Qty: 90 RF: 2 divalproex 250 mg tablet,delayed release (DR/EC) 250 mg PO HS Qty: 90 RF: 1 Hold Instructions: RX BY PSYCHIATRY metoprolol succinate 25 mg tablet extended release 24 hr 25 mg PO DAILY Qty: 90 RF: 1 omeprazole 20 mg capsule,delayed release(DR/EC) 20 mg PO DAILY Qty: 90 RF: 1 dutasteride 0.5 mg capsule 0.5 mg PO DAILY Qty: 90 RF: 1 divalproex 500 mg tablet,delayed release (DR/EC) See Rx Instructions .ROUTE .COMPLEX RF: 0 quetiapine 50 mg tablet 50 mg PO HS RF: 0 Hold Instructions: RX BY PSYCHIATRY Discharge Orders: Discharge Order (Routine); Ordered 06/08/21 Ordered By: Kelsey Raza/Other Patient Handouts: Dysphagia: Exercises, Dysphagia Diet- Managing Drinks, Dysphagia Larynx Lifting Exercises, Dysphagia Diet- Managing Foods Admission Data Admit Date/Time: 03/20/21 13:41 Attending Provider: Justin Pelayo Admit Provider: Deshawn Flynn Primary Care Provider: John Johnson Other Providers: Deshawn Flynn ; Anup Keene V. ; Doug Morin ; Pepe Alas [facility] ; [place] ; [facility], ; Andres Blake ; [facility] ; [facility] Healthcare Other Interventions: Discharge Summary Assessment (RN) Last Done: 06/08/21 11:02 Coding Level of Care Code D/C DAY MANAGEMENT >30 MINS Diagnoses Adrenal insufficiency E27.40 Recurrent left pleural effusion J90 Anemia D64.9 Hypotension I95.9 Dysphagia R13.10 CKD (chronic kidney disease) stage 2, GFR 60-89 ml/min N18.2 Chronic hypoxemic respiratory failure J96.11 COPD (chronic obstructive pulmonary disease) with chronic bronchitis J44.9 History of lung cancer Z85.118 Hyponatremia E87.1 Peripheral arterial disease I73.9 Bilateral carotid artery occlusion I65.23 Unstageable pressure ulcer of left heel L89.620 Bipolar disorder F31.9 Most recent bipolar episode type: most recent episode unspecified type Constipation K59.00 Right shoulder pain M25.511
--- NOTE | 2021-06-23 08:05 | Coding Query ---
CODING QUERY To promote full compliance with coding requirements relating to patient care, provider participation is requested in all cases of hot kettle tender uncertainty. Please assist us with the question(s) below: Coding Question(s): Patient admitted with adrenal insufficiency. Seeking to clarify if patient was treated for Pneumonia during this inpatient stay. Discharge Summary mentions " Since not defined Pneumonia, put on Doxycline for 7 Days , completed 05/23. DS also documented CXR with underlying air space opacity, compatable with atelectasis, pneumonia or aspiration. Please check below the phrase that describes the pneumonia. Thanks for your help! Toño Scott [facility] Physician's Response(s): Pneumonia was treated during this hospital stay, not present on admission Pneumonia was NOT treated during this hospital stay Cannot clinically correlete if Pneumonia was treated during this hospital admission xxx___Other: Please document: ___pneumonia was rulesd out, treated for bronchitis. cxr is included for completeness sake Principal Diagnosis: "that condition established after study, to be chiefly responsible for occasioning the admission of the patient to the hospital for care." Co-Existing Principal Diagnosis: "when two or more diagnoses equally meet the criteria for principal diagnosis as determined by the circumstances of admission, diagnostic work up, and/or therapy provided, and the Alphabetic Index, Tabular List, or another coding guideline does not provide sequencing direction, any one of the diagnoses may be sequenced first." "When the physician has documented what appears to be a current diagnosis in the body of the record, but has not included the diagnosis in the final diagnostic statement, the physician should be asked whether the diagnosis should be added." (Source Coding [facility] 2 QTR90. p3-4) AMELIA
== END 2021-06-08 13:00 | disposition home health service (06) | DRG 644 ==
LOC: EDINP 15:20 → ED 15:20 → SUATTDRO 19:14 → EDINP 03-18 01:46 → 3N 03-18 15:09 → SUATTDRO 03-20 13:41 → 3N 03-31 21:16 → 3W 05-02 04:36 → 3E 05-15 13:48

== ENCOUNTER 2021-06-16 09:17 | Observation (INO) ==
[2021-06-16] MEDS ORDERED: SODIUM CHLORIDE 0.9% 1000ML 1,000 ML IV SCH ×2 (09:30→14:00)
--- NOTE | 2021-06-16 10:08 | Emergency Department Note ---
Impression & Plan Weakness, Falls frequently, Dehydration, Pressure ulcer ED Provider Note NAME: JAMARCUS PAYTON JR AGE: 66 SEX: M : 1955 ARRIVES VIA: Ambulance INFORMANT: Patient, EMS personnel ED PROVIDER(S): Michael Hassan DO CHIEF COMPLAINT: Weakness HPI: The patient is a 66-year-old male who presented to the emergency department for an evaluation of low blood pressure. The patient has home health. Apparently they have been noticing that he has been not as active and noticed skin breakdown on his buttocks. He was noted to have low blood pressure. He was also noted to have low oxygen saturation by the prehospital personnel prior to arrival. At this time the patient states that he is only thirsty. He states he has not been eating and drinking as well as usual. He denies having any chest pain or abdominal pain. He does complain of pain over his backside where he has some skin breakdown that was noted by home health. He denies having any lower extremity swelling or pain. He states has been compliant with his usual outpatient medications. The patient was recently discharged from our facility and set up with home health. The patient states he has not seen his family doctor today. He thinks home health may have called the family doctor prior to sending him to the emergency department. ROS: See above HPI for pertinent positives & negatives. A total of 10 systems r eviewed and were otherwise negative. PAST MEDICAL HISTORY: See Below PAST SURGICAL HISTORY: See Below FAMILY HISTORY: See Below SOCIAL HISTORY: See Below HOME MEDICATIONS: See Below ALLERGIES: See Below VITALS: See Below PHYSICAL EXAMINATION: GENERAL: The patient is awake and alert. The patient is comfortable and nonanxious appearing. EYES: The conjunctivae are clear. The pupils are round and reactive. EARS, NOSE, MOUTH AND THROAT: The nose is without any evidence of any deformity. Mucous membranes are dry NECK: The neck is nontender and supple. RESPIRATORY: Normal respiratory effort is noted there is no evidence of wheezing rhonchi or rales CARDIOVASCULAR: Regular rate and rhythm noted there no murmurs rubs or gallops normal S1 normal S2. GASTROINTESTINAL: The abdomen is soft. Abdomen is nontender. Rectal exam revealed brown stool which was heme-negative. MUSCULOSKELETAL/EXTREMITIES: There is no evidence of gross deformity full range of motion is noted in the hips and shoulders. SKIN: There are stage I pressure ulcerations noted on the buttocks. There is no signs of cellulitis or infection at this time. There is no drainage. NEUROLOGIC: Patient is awake alert and oriented x3 strength. MEDICAL DECISION MAKING: The patient is a 66-year-old male who presented to emergency department for low blood pressure. The patient was complaining of pressure ulcers. He was in our facility recently for a very long extended stay. Placement was difficult as the patient wanted to go home. He was arranged with multiple home care nursing as well as rehab. The patient presents back to the emergency department today. It is feared that the patient is not able to care for himself. He has pressure ulcers on his buttocks. He was also noted to have low blood pressure. He was treated with IV fluids in the emergency department. His blood pressure was fluctuating in the emergency department. I discussed the patient's laboratory and radiographic studies with him. I discussed his case with the emergency department binder caser. Attempts were made for placement from the emergency department but we were unable to. Home health was consulted by the binder caser. The patient was not felt to be safe at home. For this reason I discussed his case with the on-call [facility]. They have agreed to evaluate the patient in the emergency department for further management and disposition. Triage Nursing notes reviewed. Prior medical records reviewed Vital Signs: reviewed and remarkable for hypotension. Differential diagnosis: Infection, dehydration, metabolic abnormality, hypo/hyperglycemia, electrolyte disturbance, anemia, hypoxia, cardiac sources, intracerebral event, toxicologic, neurologic, as well as other pathologies. ER treatment provided: See below Diagnostics interpreted by me: ECG: EKG was obtained in the emergency department. My interpretation is sinus tachycardia 101 bpm. There is no ectopy. There is no acute ST segment abnormalities noted. This was compared to a tracing from March 17, 2021. No changes were noted. Cardiac Monitoring: An order was placed for continuous cardiac monitoring. The monitor shows a rate of 100 bpm with sinus rhythm. Laboratory studies: As stated above and show below. Imaging studies: See below Consultation(s): I discussed this case with Quincy Han who was covering for the [facility]. 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 History of lung cancer (01/2016) 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 Homicidal ideation PT DENIES AT PRESENT TIME Hypertension Memory loss Osteomyelitis Peripheral arterial disease Peripheral neuropathy Recurrent left pleural effusion s/p thoracentesis August 2018 Restless leg syndrome Schizoaffective disorder Surgical History H/O foot surgery LEFT HEEL REMOVAL FROM PRESSURE ULCER History of bronchoscopy (01/2016) History of colonoscopy History of herniorrhaphy History of lobectomy of lung LOWER LEFT LUNG S/P peripheral artery angioplasty with stent placement (06/2016) 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, 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 S/P thoracentesis (05/2019) L pleural effusion Status post femorofemoral bypass surgery (06/2016) [place] teeth removed Family History Brother Myocardial infarction Father Myocardial infarction Other Cancer Family history non-contributory Lung disease No family history of adverse response to anesthesia Denies family history of Tuberculosis Ovarian cancer Prostate cancer Diabetes Heart disease Allergies Breast cancer Emphysema, unspecified Lung cancer Colorectal cancer Asthma Social History Smoking Status: Former smoker Tobacco Type: Cigarettes Age Started Using Tobacco: 10; packs per day: 0.5; Years Smoked: 30; Cigarettes Per Day: 6-8 DAILY; Second Hand Exposure: Yes; Hx Alcohol Use: Yes Alcohol type: beer Alcohol Intake Frequency: 4 or More x per/Week Alcohol Intake Frequency Comment: mostly daily Hx Substance Use: Yes Prescribed Medications: Marijuana Last Used Substance: Days (ago) Last Used Substance Other:: 3 Preferred Language: Bengali Communication Ability: Effective Visual Impairment: No Limitations Hearing Ability: Normal Regulatory Internship Required: No Beliefs That Will Affect Care: None marital status: single Current Living Situation: Alone current occupational status: disabled How many Children do You have: 2 Feels Safe at Home: Yes and Declines to Answer Childhood Exposure to Second-Hand Smoke: Yes Diet Comment: regular caffeine: Yes (coffee 1 pot a day) during the past year weight has: remained stable Dental Care, Regularly: No Physical Activity Frequency: Does not Exercise Seatbelt Use: always Sunscreen Use: No Assistive Devices: Wheelchair Allergies Allergies Allergy/AdvReac Type Severity Reaction Status Date / Time ciprofloxacin Allergy Intermediate RASH Verified 06/16/21 11:46 vancomycin Allergy Intermediate RASH Verified 06/16/21 11:46 sulfamethoxazole Allergy Unknown Unknown Verified 06/16/21 11:46 [From Bactrim] trimethoprim [From Bactrim] Allergy Unknown Unknown Verified 06/16/21 11:46 Home Meds Home Medications Medication Instructions Recorded Confirmed acetaminophen 500 mg capsule 500 mg PO Q6H PRN 02/02/18 06/16/21 ascorbic acid (vitamin C) 500 mg 500 mg PO BID cap 02/02/18 06/16/21 capsule cholecalciferol (vitamin D3) 25 1,000 units PO DAILY 04/03/18 06/16/21 mcg (1,000 unit) capsule docusate sodium 100 mg capsule 100 mg PO DAILY PRN cap 01/29/19 06/16/21 melatonin 5 mg tablet 5 mg PO HS PRN 03/17/21 06/16/21 Previous Rx's Medication Instructions Recorded albuterol sulfate 90 mcg/actuation 2 puffs INH QID PRN #18 gm 01/29/19 aerosol inhaler (Ventolin HFA) ketoconazole 2 % topical cream 1 applic TOP DAILY #90 g 02/12/20 bupropion HCl 100 mg tablet 100 mg PO DAILY #90 tab 01/05/21 fluticasone fur. 100 mcg-umeclid 1 inh INHALATION Q24H #60 ea 01/05/21 62.5 mcg-vilant 25 mcg inhalat.powder (Trelegy Ellipta) atorvastatin 40 mg tablet 40 mg PO QAM 30 Days #30 tab 06/08/21 clopidogrel 75 mg tablet 75 mg PO QAM 30 Days #30 tab 06/08/21 folic acid 1 mg tablet 1 mg PO QAM 30 Days #30 tab 06/08/21 hydrocortisone 10 mg tablet 10 mg PO DAILY@1500 30 Days #30 tab 06/08/21 (Cortef) hydrocortisone 10 mg tablet 15 mg PO QAM 30 Days #45 tab 06/08/21 (Cortef) lansoprazole 30 mg delayed 30 mg PO DAILY 30 Days #30 tab 01/03/22 release,disintegrating tablet (Prevacid SoluTab) quetiapine 25 mg tablet 25 mg PO HS 30 Days #30 tab 06/08/21 valproic acid (as sodium salt) 250 750 mg PO QAM 30 Days #450 ml 06/08/21 mg/5 mL (5 mL) oral solution valproic acid (as sodium salt) 500 500 mg PO PM 30 Days #300 ml 06/08/21 mg/10 mL (10 mL) oral solution Bed Side Commode #1 ea 06/12/21 miscellaneous medical supply 1 ea MISCELLANEOUS DAILY #1 ea 06/12/21 miscellaneous medical supply 1 ea MISCELLANEOUS DAILY #1 ea 06/12/21 Hospital Bed Homecare (Hospital #1 ea 06/15/21 Bed) menthol 0.44 %-zinc oxide 20.6 % 1 applic TOPICAL QID PRN #113 g 06/15/21 topical ointment (Calmoseptine) Results & Data (ED) Vital Signs Vital Signs - 24 hr 06/16/21 09:03 06/16/21 09:29 06/16/21 11:03 Temperature 36.6 C Temperature Source Oral Pulse Rate 101 H 98 H Pulse Rate [Right Finger] 94 H 96 H Pulse Rhythm Regular Regular Pulse Rhythm [Right Finger] Regular Regular Pulse Strength Normal Pulse Strength [Right Finger] Normal Normal Respiratory Rate 22 22 20 Respiratory Effort / Characteristics Non-Labored Non-Labored Respiratory Depth Normal Normal Respiratory Pattern Regular Regular Blood Pressure 128/85 Blood Pressure [Right Arm] 128/85 126/70 Blood Pressure Mean 99 Blood Pressure Mean [Right Arm] 99 88 Blood Pressure Position Lying Blood Pressure Position [Right Arm] Sitting Lying Pulse Oximetry 96 94 94 Oxygen Delivery Method Room Air Room Air Room Air Sepsis Recent Fever Within 48 Hours No Sepsis New/Unexplained Change in Mental Status N/A Sepsis Action Taken by Nursing Physician Notified 06/16/21 13:00 Temperature Temperature Source Pulse Rate Pulse Rate [Right Finger] 100 H Pulse Rhythm Pulse Rhythm [Right Finger] Regular Pulse Strength Pulse Strength [Right Finger] Normal Respiratory Rate 22 Respiratory Effort / Characteristics Non-Labored Respiratory Depth Normal Respiratory Pattern Regular Blood Pressure Blood Pressure [Right Arm] 88/66 L Blood Pressure Mean Blood Pressure Mean [Right Arm] 73 Blood Pressure Position Blood Pressure Position [Right Arm] Sitting Pulse Oximetry 95 Oxygen Delivery Method Room Air Sepsis Recent Fever Within 48 Hours Sepsis New/Unexplained Change in Mental Status Sepsis Action Taken by [facility] Medications Current Medication List: was personally reviewed by me Laboratory Data Attestation: I reviewed the patient's lab results. Result diagrams: 06/16/21 10:40 06/16/21 10:40 Lab Results 06/16/21 06/16/21 06/16/21 Range/Units 10:34 10:40 10:40 WBC 6.54 (4.8-10.8) K/uL RBC 3.95 L (4.7-6.1) M/uL Hgb 10.4 L (14.0-18.0) g/dL Hct 32.5 L (42-52) % MCV 82.3 (80-100) fL MCH 26.3 (25-34) pg MCHC 32.0 (32-36) g/dL RDW Std Deviation 57.9 H (36.4-46.3) fL RDW Coeff of Raul 19.0 H (11.5-14.5) % Plt Count 283 (130-400) K/uL MPV 9.1 (7.4-10.4) fL Immature Gran % (Auto) 0.2 % Neut % (Auto) 80.3 % Lymph % (Auto) 7.3 % [place] % (Auto) 7.3 % Eos % (Auto) 4.7 % Baso % (Auto) 0.2 % Neut # (Auto) 5.25 (1.4-6.5) K/uL Lymph # (Auto) 0.48 L (1.2-3.4) K/uL [place] # (Auto) 0.48 (0.11-0.59) K/uL Eos # (Auto) 0.31 (0-0.5) K/uL Baso # (Auto) 0.01 (0-0.2) K/uL Immature Gran # (Auto) 0.01 (0.00-0.02) K/uL PT 10.7 (9.0-12.0) Seconds INR 1.1 (0.9-1.1) APTT 32.9 H (21.0-31.0) Seconds PTT Ratio 1.3 Sodium (136-145) mmol/L Potassium (3.5-5.1) mmol/L Chloride (98-107) mmol/L Carbon Dioxide (21-32) mmol/L Anion Gap (3-11) BUN (6-23) mg/dl Creatinine (0.6-1.4) mg/dl Est Cr Clr Drug Dosing ml/min Est GFR ( Amer) ml/min Est GFR (Non-Af Amer) ml/min BUN/Creatinine Ratio (10-20) Glucose (70-99) mg/dl Osmolality (280-300) mOsm/kg Calcium (8.5-10.1) mg/dl Magnesium (1.7-2.4) mg/dl Total Bilirubin (0.2-1.0) mg/dl AST (13-39) U/L ALT (7-52) U/L Alkaline Phosphatase (34-104) U/L Ammonia (18-72) umol/L Total Creatine Kinase (39-308) U/L Troponin I (0-0.04) ng/ml Total Protein (6.0-8.3) gm/dl Albumin (3.4-5.0) gm/dl Globulin (2.5-4.0) gm/dl Albumin/Globulin Ratio (0.9-2) TSH (0.300-4.500) uIu/ml Random Cortisol mcg/dl Urine Color Urine Appearance (Clear) Urine pH (4.5-7.5) Ur Specific Reliance (1.000-1.030) Urine Protein (Negative) Urine Glucose (UA) (Negative) Urine Ketones (Negative) Urine Blood (Negative) Urine Nitrite (Negative) Urine Bilirubin (Negative) Urine Urobilinogen (Negative) Ur Leukocyte Esterase (Negative) Urine Osmolality (500-800) mOsm/kg Ur Random Sodium mmol/L Valproic Acid (50-100) mcg/ml SARS-CoV-2 (PCR) NEGATIVE (Negative) Influenza Type A (PCR) Negative (Neg) Influenza Type B (PCR) Negative (Neg) RSV (RT-PCR) Negative (Neg) 06/16/21 06/16/21 06/16/21 Range/Units 10:40 10:40 10:40 WBC (4.8-10.8) K/uL RBC (4.7-6.1) M/uL Hgb (14.0-18.0) g/dL Hct (42-52) % MCV (80-100) fL MCH (25-34) pg MCHC (32-36) g/dL RDW Std Deviation (36.4-46.3) fL RDW Coeff of Raul (11.5-14.5) % Plt Count (130-400) K/uL MPV (7.4-10.4) fL Immature Gran % (Auto) % Neut % (Auto) % Lymph % (Auto) % [place] % (Auto) % Eos % (Auto) % Baso % (Auto) % Neut # (Auto) (1.4-6.5) K/uL Lymph # (Auto) (1.2-3.4) K/uL [place] # (Auto) (0.11-0.59) K/uL Eos # (Auto) (0-0.5) K/uL Baso # (Auto) (0-0.2) K/uL Immature Gran # (Auto) (0.00-0.02) K/uL PT (9.0-12.0) Seconds INR (0.9-1.1) APTT (21.0-31.0) Seconds PTT Ratio Sodium 136 (136-145) mmol/L Potassium 3.7 (3.5-5.1) mmol/L Chloride 104 (98-107) mmol/L Carbon Dioxide 23 (21-32) mmol/L Anion Gap 9 (3-11) BUN 9 (6-23) mg/dl Creatinine 0.89 (0.6-1.4) mg/dl Est Cr Clr Drug Dosing 75.3 ml/min Est GFR ( Amer) 102.5 ml/min Est GFR (Non-Af Amer) 88.5 ml/min BUN/Creatinine Ratio 10.1 (10-20) Glucose 85 (70-99) mg/dl Osmolality 287 (280-300) mOsm/kg Calcium 9.2 (8.5-10.1) mg/dl Magnesium 1.9 (1.7-2.4) mg/dl Total Bilirubin 0.6 (0.2-1.0) mg/dl AST 23 (13-39) U/L ALT 23 (7-52) U/L Alkaline Phosphatase 83 (34-104) U/L Ammonia 20.0 (18-72) umol/L Total Creatine Kinase 43 (39-308) U/L Troponin I < 0.03 (0-0.04) ng/ml Total Protein 8.3 (6.0-8.3) gm/dl Albumin 3.3 L (3.4-5.0) gm/dl Globulin 5.0 H (2.5-4.0) gm/dl Albumin/Globulin Ratio 0.7 L (0.9-2) TSH 2.326 (0.300-4.500) uIu/ml Random Cortisol mcg/dl Urine Color Urine Appearance (Clear) Urine pH (4.5-7.5) Ur Specific Reliance (1.000-1.030) Urine Protein (Negative) Urine Glucose (UA) (Negative) Urine Ketones (Negative) Urine Blood (Negative) Urine Nitrite (Negative) Urine Bilirubin (Negative) Urine Urobilinogen (Negative) Ur Leukocyte Esterase (Negative) Urine Osmolality (500-800) mOsm/kg Ur Random Sodium mmol/L Valproic Acid (50-100) mcg/ml SARS-CoV-2 (PCR) (Negative) Influenza Type A (PCR) (Neg) Influenza Type B (PCR) (Neg) RSV (RT-PCR) (Neg) 06/16/21 06/16/21 06/16/21 Range/Units 10:40 10:40 11:30 WBC (4.8-10.8) K/uL RBC (4.7-6.1) M/uL Hgb (14.0-18.0) g/dL Hct (42-52) % MCV (80-100) fL MCH (25-34) pg MCHC (32-36) g/dL RDW Std Deviation (36.4-46.3) fL RDW Coeff of Raul (11.5-14.5) % Plt Count (130-400) K/uL MPV (7.4-10.4) fL Immature Gran % (Auto) % Neut % (Auto) % Lymph % (Auto) % [place] % (Auto) % Eos % (Auto) % Baso % (Auto) % Neut # (Auto) (1.4-6.5) K/uL Lymph # (Auto) (1.2-3.4) K/uL [place] # (Auto) (0.11-0.59) K/uL Eos # (Auto) (0-0.5) K/uL Baso # (Auto) (0-0.2) K/uL Immature Gran # (Auto) (0.00-0.02) K/uL PT (9.0-12.0) Seconds INR (0.9-1.1) APTT (21.0-31.0) Seconds PTT Ratio Sodium (136-145) mmol/L Potassium (3.5-5.1) mmol/L Chloride (98-107) mmol/L Carbon Dioxide (21-32) mmol/L Anion Gap (3-11) BUN (6-23) mg/dl Creatinine (0.6-1.4) mg/dl Est Cr Clr Drug Dosing ml/min Est GFR ( Amer) ml/min Est GFR (Non-Af Amer) ml/min BUN/Creatinine Ratio (10-20) Glucose (70-99) mg/dl Osmolality (280-300) mOsm/kg Calcium (8.5-10.1) mg/dl Magnesium (1.7-2.4) mg/dl Total Bilirubin (0.2-1.0) mg/dl AST (13-39) U/L ALT (7-52) U/L Alkaline Phosphatase (34-104) U/L Ammonia (18-72) umol/L Total Creatine Kinase (39-308) U/L Troponin I (0-0.04) ng/ml Total Protein (6.0-8.3) gm/dl Albumin (3.4-5.0) gm/dl Globulin (2.5-4.0) gm/dl Albumin/Globulin Ratio (0.9-2) TSH (0.300-4.500) uIu/ml Random Cortisol 6.78 mcg/dl Urine Color Yellow Urine Appearance Clear (Clear) Urine pH 7.0 (4.5-7.5) Ur Specific Reliance 1.008 (1.000-1.030) Urine Protein Negative (Negative) Urine Glucose (UA) Negative (Negative) Urine Ketones Negative (Negative) Urine Blood Negative (Negative) Urine Nitrite Negative (Negative) Urine Bilirubin Negative (Negative) Urine Urobilinogen Negative (Negative) Ur Leukocyte Esterase Negative (Negative) Urine Osmolality (500-800) mOsm/kg Ur Random Sodium mmol/L Valproic Acid < 10 L (50-100) mcg/ml SARS-CoV-2 (PCR) (Negative) Influenza Type A (PCR) (Neg) Influenza Type B (PCR) (Neg) RSV (RT-PCR) (Neg) 06/16/21 06/16/21 Range/Units 11:30 11:30 WBC (4.8-10.8) K/uL RBC (4.7-6.1) M/uL Hgb (14.0-18.0) g/dL Hct (42-52) % MCV (80-100) fL MCH (25-34) pg MCHC (32-36) g/dL RDW Std Deviation (36.4-46.3) fL RDW Coeff of Raul (11.5-14.5) % Plt Count (130-400) K/uL MPV (7.4-10.4) fL Immature Gran % (Auto) % Neut % (Auto) % Lymph % (Auto) % [place] % (Auto) % Eos % (Auto) % Baso % (Auto) % Neut # (Auto) (1.4-6.5) K/uL Lymph # (Auto) (1.2-3.4) K/uL [place] # (Auto) (0.11-0.59) K/uL Eos # (Auto) (0-0.5) K/uL Baso # (Auto) (0-0.2) K/uL Immature Gran # (Auto) (0.00-0.02) K/uL PT (9.0-12.0) Seconds INR (0.9-1.1) APTT (21.0-31.0) Seconds PTT Ratio Sodium (136-145) mmol/L Potassium (3.5-5.1) mmol/L Chloride (98-107) mmol/L Carbon Dioxide (21-32) mmol/L Anion Gap (3-11) BUN (6-23) mg/dl Creatinine (0.6-1.4) mg/dl Est Cr Clr Drug Dosing ml/min Est GFR ( Amer) ml/min Est GFR (Non-Af Amer) ml/min BUN/Creatinine Ratio (10-20) Glucose (70-99) mg/dl Osmolality (280-300) mOsm/kg Calcium (8.5-10.1) mg/dl Magnesium (1.7-2.4) mg/dl Total Bilirubin (0.2-1.0) mg/dl AST (13-39) U/L ALT (7-52) U/L Alkaline Phosphatase (34-104) U/L Ammonia (18-72) umol/L Total Creatine Kinase (39-308) U/L Troponin I (0-0.04) ng/ml Total Protein (6.0-8.3) gm/dl Albumin (3.4-5.0) gm/dl Globulin (2.5-4.0) gm/dl Albumin/Globulin Ratio (0.9-2) TSH (0.300-4.500) uIu/ml Random Cortisol mcg/dl Urine Color Urine Appearance (Clear) Urine pH (4.5-7.5) Ur Specific Reliance (1.000-1.030) Urine Protein (Negative) Urine Glucose (UA) (Negative) Urine Ketones (Negative) Urine Blood (Negative) Urine Nitrite (Negative) Urine Bilirubin (Negative) Urine Urobilinogen (Negative) Ur Leukocyte Esterase (Negative) Urine Osmolality 257 L (500-800) mOsm/kg Ur Random Sodium 50 mmol/L Valproic Acid (50-100) mcg/ml SARS-CoV-2 (PCR) (Negative) Influenza Type A (PCR) (Neg) Influenza Type B (PCR) (Neg) RSV (RT-PCR) (Neg) Administered Medications Discontinued Medications Sodium Chloride (Nss 1000ml) 1,000 mls @ 999 mls/hr IV .[id number] GERMAN Stop: 06/16/21 10:30 Last Infusion: 06/16/21 11:50 Dose: 0 mls/hr Documented by: [id number] Admin: 06/16/21 10:48 Dose: 999 mls/hr Documented by: [id number] Imaging Data Radiologist's Impression: Chest X-Ray 06/16/21 09:29 XR chest 1V portable CLINICAL HISTORY: weakness. Follow up left pleural effusion and consolidation. COMPARISON STUDY: 05/25/2021 TECHNIQUE: 1 view of the chest FINDINGS: Single frontal view of the chest demonstrates the cardiomediastinal silhouette to be within normal limits. Compared to the previous examination, there is evidence for interval decrease in size of left pleural effusion which is still moderate in degree. Confluent alveolar opacity is again noted involving the left lower lobe. It is possible that this represents fluid within the fissure. The right hemithorax is clear of alveolar opacities and effusions. There is no evidence for vascular congestion. There is no acute osseous pathology. IMPRESSION: Interval decrease in left pleural effusion with persistent left lo wer lobe consolidation as described above. Follow-up PA and lateral radiographs would be helpful for further evaluation. ACT 112: Negative or not required by law. Electronically signed by: Peewee Holland M.D. 06/16/2021 10:21 AM Discharge Plan Visit Data Chief Complaint: Hypotension ED Provider: Michael Hassan Discharge Problem: Weakness, Falls frequently, Dehydration, Pressure ulcer Patient Disposition: Being Evaluated by Hospitalist Forms Stand Alone Forms: [facility] Prescriptions Prescriptions: No Action acetaminophen 500 mg capsule 500 mg PO Q6H PRN (Reason: fever or pain) RF: 0 ascorbic acid (vitamin C) 500 mg capsule 500 mg PO BID RF: 0 cholecalciferol (vitamin D3) 1,000 unit capsule 1,000 units PO DAILY RF: 0 ketoconazole 2 % cream 1 applic TOP DAILY Qty: 90 RF: 3 bupropion HCl 100 mg tablet 100 mg PO DAILY Qty: 90 RF: 1 Hold Instructions: RX BY PSYCHIATRY Trelegy Ellipta 100-62.5-25 mcg blister with device 1 inh inhalation Q24H Qty: 60 RF: 5 miscellaneous medical supply Misc 1 ea miscellaneous DAILY Qty: 1 RF: 0 (DME) Bed Side Commode Misc See Rx Instructions .Route Qty: 1 RF: 0 miscellaneous medical supply Misc 1 ea miscellaneous DAILY Qty: 1 RF: 0 (DME) Hospital Bed Misc See Rx Instructions .Route Qty: 1 RF: 0 docusate sodium 100 mg capsule 100 mg PO DAILY PRN (Reason: Constipation) RF: 0 albuterol sulfate [Ventolin HFA] 90 mcg/actuation HFA aerosol inhaler 2 puffs INH QID PRN (Reason: shortness of breath or wheezing) Qty: 18 RF: 4 menthol-zinc oxide [Calmoseptine] 0.44-20.6 % ointment 1 applic topical QID PRN (Reason: skin irritation) Qty: 113 RF: 5 melatonin 5 mg Tablet 5 mg PO HS PRN (Reason: Sleep) RF: 0 atorvastatin 40 mg Tablet 40 mg PO QAM 30 Days Qty: 30 RF: 0 clopidogrel 75 mg Tablet 75 mg PO QAM 30 Days Qty: 30 RF: 0 valproic acid (as sodium salt) 500 mg/10 mL (10 mL) Solution 500 mg PO PM 30 Days Qty: 300 RF: 0 quetiapine 25 mg Tablet 25 mg PO HS 30 Days Qty: 30 RF: 0 valproic acid (as sodium salt) 250 mg/5 mL (5 mL) Solution 750 mg PO QAM 30 Days Qty: 450 RF: 0 lansoprazole [Prevacid SoluTab] 30 mg Tablet,Disintegrat, Delay Rel 30 mg PO DAILY 30 Days Qty: 30 RF: 0 hydrocortisone [Cortef] 10 mg Tablet 10 mg PO DAILY@1500 30 Days Qty: 30 RF: 0 hydrocortisone [Cortef] 10 mg Tablet 15 mg PO QAM 30 Days Qty: 45 RF: 0 folic acid 1 mg Tablet 1 mg PO QAM 30 Days Qty: 30 RF: 0 Referrals Referrals: John Johnson CRNP [Primary Care Provider] -
--- NOTE | 2021-06-16 10:22 | XRay Report ---
XR chest 1V portable CLINICAL HISTORY: weakness. Follow up left pleural effusion and consolidation. COMPARISON STUDY: 05/25/2021 TECHNIQUE: 1 view of the chest FINDINGS: Single frontal view of the chest demonstrates the cardiomediastinal silhouette to be within normal li mits. Compared to the previous examination, there is evidence for interval decrease in size of left p leural effusion which is still moderate in degree. Confluent alveolar opacity is again noted involvin g the left lower lobe. It is possible that this represents fluid within the fissure. The right hemith orax is clear of alveolar opacities and effusions. There is no evidence for vascular congestion. Ther e is no acute osseous pathology. IMPRESSION: Interval decrease in left pleural effusion with persistent left lower lobe consolidation as described above. Follow-up PA and lateral radiographs would be helpful for further evaluation. ACT 112: Negative or not required by law. Electronically signed by: Peewee Holland M.D. 06/16/2021 10:21 AM
[2021-06-16 10:55] LABS: Basophils # (auto) 0.01 K/uL (0-0.2); Basophils % (auto) 0.2 %; Eosinophils # (auto) 0.31 K/uL (0-0.5); Eosinophils % (auto) 4.7 %; Hematocrit (blood only) 32.5 % (42-52); Hemoglobin 10.4 g/dL (14.0-18.0); Immature Granulocytes # (auto) 0.01 K/uL (0.00-0.02); Immature Granulocytes % (auto) 0.2 %; Lymphocytes # (auto) 0.48 K/uL (1.2-3.4); Lymphocytes % (auto) 7.3 %; Mean Corpuscular Hemoglobin 26.3 pg (25-34); Mean Corpuscular Volume 82.3 fL (80-100); Mean Platelet Volume 9.1 fL (7.4-10.4); Monocytes # (auto) 0.48 K/uL (0.11-0.59); Monocytes % (auto) 7.3 %; Neutrophils # (auto) 5.25 K/uL (1.4-6.5); Neutrophils % (auto) 80.3 %; Platelet Count 283 K/uL (130-400); RDW Standard Deviation 57.9 fL (36.4-46.3); Red Blood Count 3.95 M/uL (4.7-6.1); White Blood Count 6.54 K/uL (4.8-10.8)
[2021-06-16 11:05] LABS: INR 1.1 (0.9-1.1); Partial Thromboplastin Ratio 1.3; Partial Thromboplastin Time 32.9 Seconds (21.0-31.0); Prothrombin Time 10.7 Seconds (9.0-12.0)
[2021-06-16 11:18] LABS: Influenza A virus by PCR Negative (Neg); Influenza B virus by PCR Negative (Neg); RSV by PCR Negative (Neg); SARS CoV2 RNA(COVID-19) InHosp NEGATIVE (Negative)
[2021-06-16 11:19] LABS: Troponin I < 0.03 ng/ml (0-0.04)
[2021-06-16 11:43] LABS: Alanine Aminotransferase 23 U/L (7-52); Albumin Globulin Ratio 0.7 (0.9-2); Albumin Level 3.3 gm/dl (3.4-5.0); Alkaline Phosphatase 83 U/L (34-104); Anion Gap 9 (3-11); Aspartate Aminotransferase 23 U/L (13-39); BUN Creatinine Ratio 10.1 (10-20); Bilirubin,Total 0.6 mg/dl (0.2-1.0); Blood Urea Nitrogen 9 mg/dl (6-23); Calcium 9.2 mg/dl (8.5-10.1); Carbon Dioxide 23 mmol/L (21-32); Chloride 104 mmol/L (98-107); Creatine Kinase 43 U/L (39-308); Creatinine Clr Calc Pharmacy 75.3 ml/min; Est GFR (African American) 102.5 ml/min; Est GFR (Non-African American) 88.5 ml/min; Glucose 85 mg/dl (70-99); Magnesium 1.9 mg/dl (1.7-2.4); Potassium 3.7 mmol/L (3.5-5.1); Sodium 136 mmol/L (136-145); Total Protein 8.3 gm/dl (6.0-8.3)
[2021-06-16 11:43] LABS: Appearance Urine Clear (Clear); Bilirubin Urine Negative (Negative); Blood Urine Negative (Negative); Color Urine Yellow; Glucose Urine UA Negative (Negative); Ketones Urine Negative (Negative); Leukocyte Esterase Urine Negative (Negative); Nitrite Urine Negative (Negative); Protein Urine Negative (Negative); Specific Gravity Urine 1.008 (1.000-1.030); Urobilinogen Urine Negative (Negative)
[2021-06-16 11:55] LABS: Thyroid Stimulating Hormone 2.326 uIu/ml (0.300-4.500)
--- NOTE | 2021-06-16 12:46 | Electrocardiogram Report ---
Test Reason : Blood Pressure : / mmHG Vent. Rate : 101 BPM Atrial Rate : 101 BPM P-R Int : 112 ms QRS Dur : 082 ms QT Int : 344 ms P-R-T Axes : 026 028 058 degrees QTc Int : 446 ms Poor data quality, interpretation may be adversely affected Sinus tachycardia Artifact mid-tracing Otherwise normal ECG When compared with ECG of 17-MAR-2021 15:28, Vent. rate has increased BY 37 BPM Confirmed by Max Donnelly ([id number]) on 06/16/2021 12:46:33 PM Referred By: Confirmed By:Max Donnelly
--- NOTE | 2021-06-16 13:57 | History & Physical Report ---
Date of Service June 16, 2021 Assessment & Plan (1) Failure to thrive: Plan: Due to the patient's presenting symptomatology and his current living situation he will be admitted to the hospital and the hospital service and we will proceed as follows: Is unclear if the patient has been taking his medications as prescribed to due to his history of adrenal insufficiency he will be treated with hydrocortisone 50 mg intravenously every 8 hours initially with plans to transition to his home doses. Urine culture will be obtained we will follow for results of this treating as indicated The patient does appear somewhat weak and deconditioned and due to his recent fall we will enlist the help of physical therapy, Occupational Therapy, and case management to help ensure the most appropriate and safe disposition The patient is noted to have some skin breakdown on his sacrum but it does not appear infected at this time. We will request wound care nurse to assist with his care We will utilize Lovenox for DVT prevention I discussed CODE STATUS with this man and he notes an event of cardiopulmonary arrest CPR is an acceptable modality in his care and he will therefore be a level 1 full code History of Present Illness Chief Complaint: "I fell out of my chair" Primary Care Provider: PETE Chawla This is a 66-year-old male who was recently discharged from [facility] on 06/08/2021 after a very lengthy hospital stay. During a forementioned admission the patient was initially admitted for altered mental status. He was found to have adrenal insufficiency and was treated with steroid supplementation. Patient was also noted to have a pleural effusion. There is no definite pneumonia however patient did receive a course of doxycycline. Review of records showed that this pleural effusion was persistent since March 2021. After pulmonary consultation was obtained was felt that thoracentesis was not indicated. Patient was also noted to be anemic during this admission and he had fecal occult blood tested which was negative on 2 occasions. He did undergo an EGD by gastroenterology that showed gastritis. His anemia was treated with iron supplementation. Patient's hospitalization was prolonged as it was felt the patient would benefit from placement however this was difficult to obtain and after his lengthy hospitalization it was felt that it was reasonable to give patient a chance to return to his home environment. The patient represented to [facility] today via EMS. The patient notes that he was attempting to transfer from his wheelchair when he fell over and therefore summoned EMS. Patient was noted to be hypotensive so he presented to [facility] emergency department. In the emergency department the patient had labs and imaging which I independently reviewed. The chest x-ray showed the patient had a persistent left pleural effusion with no definite pneumonia. When compared to prior chest x-rays there is actually some improvement noted of the left pleural effusion. An EKG showed sinus tachycardia changes indicative of acute ischemia. The patient was tested for influenza, RSV, and COVID-19 all of which were negative. Urinalysis was not indicative of urinary tract infection. Cardiac enzymes were not elevated. Chemistry profile showed sodium, potassium, BUN, and creatinine were all within normal range. CBC showed white blood cell count and platelet count were normal. His hemoglobin and hematocrit 10.4 and 32.5 and these values were stable when compared to values obtained over the past 2 months. I questioned patient on a litany of symptoms and he says that he did fall out of his chair as noted above. He does not believe he struck his head and to the best of his knowledge he did not lose consciousness. He denies any visual changes. He denies any tinnitus or vertigo. Patient says that he does not have a sore throat or neck pain. He specifically [place] any chest pain. He notes with activity he does get short of breath at times but feels this is stable and has not noted worsening shortness of breath. He denies any fevers, shakes, chills. He denies any nausea, vomiting, or abdominal pain. He denies any diarrhea. Patient feels as though his appetite has been stable over the past several days and has not decreased. He denies any difficulty urinating or dysuria. Patient denies any dysarthria, dysphagia, or inability to move his arms or legs. The treating emergency room physician has thus far treated the patient with some intravenous fluids and hydrocortisone due to his hypotension. He did discussed with case management as it was felt that the patient was not safe to return home. Case management in the emergency department has been unsuccessful at finding an appropriate facility to place the patient in and therefore admission to the hospital service has been requested. At the time of my interview the patient was resting comfortably in bed. He was in no distress. He was also not complaining of any pain. Allergies Allergy/AdvReac Type Severity Reaction Status Date / Time ciprofloxacin Allergy Intermediate RASH Verified 06/16/21 11:46 vancomycin Allergy Intermediate RASH Verified 06/16/21 11:46 sulfamethoxazole Allergy Unknown Unknown Verified 06/16/21 11:46 [From Bactrim] trimethoprim [From Bactrim] Allergy Unknown Unknown Verified 06/16/21 11:46 Home Medications Medication Instructions Recorded Confirmed Type acetaminophen 500 mg capsule 500 mg PO Q6H PRN 02/02/18 06/16/21 History ascorbic acid (vitamin C) 500 mg 500 mg PO BID cap 02/02/18 06/16/21 History capsule cholecalciferol (vitamin D3) 25 1,000 units PO DAILY 04/03/18 06/16/21 History mcg (1,000 unit) capsule albuterol sulfate 90 mcg/actuation 2 puffs INH QID PRN #18 gm 01/29/19 06/16/21 Rx aerosol inhaler (Ventolin HFA) docusate sodium 100 mg capsule 100 mg PO DAILY PRN cap 01/29/19 06/16/21 History ketoconazole 2 % topical cream 1 applic TOP DAILY #90 g 02/12/20 06/16/21 Rx bupropion HCl 100 mg tablet 100 mg PO DAILY #90 tab 01/05/21 06/16/21 Rx fluticasone fur. 100 mcg-umeclid 1 inh INHALATION Q24H #60 ea 01/05/21 06/16/21 Rx 62.5 mcg-vilant 25 mcg inhalat.powder (Trelegy Ellipta) melatonin 5 mg tablet 5 mg PO HS PRN 03/17/21 06/16/21 History atorvastatin 40 mg tablet 40 mg PO QAM 30 Days #30 tab 06/08/21 06/16/21 Rx clopidogrel 75 mg tablet 75 mg PO QAM 30 Days #30 tab 06/08/21 06/16/21 Rx folic acid 1 mg tablet 1 mg PO QAM 30 Days #30 tab 06/08/21 06/16/21 Rx hydrocortisone 10 mg tablet 10 mg PO DAILY@1500 30 Days #30 tab 06/08/21 06/16/21 Rx (Cortef) hydrocortisone 10 mg tablet 15 mg PO QAM 30 Days #45 tab 06/08/21 06/16/21 Rx (Cortef) lansoprazole 30 mg delayed 30 mg PO DAILY 30 Days #30 tab 06/08/21 06/16/21 Rx release,disintegrating tablet (Prevacid SoluTab) quetiapine 25 mg tablet 25 mg PO HS 30 Days #30 tab 06/08/21 06/16/21 Rx valproic acid (as sodium salt) 250 750 mg PO QAM 30 Days #450 ml 06/08/21 06/16/21 Rx mg/5 mL (5 mL) oral solution valproic acid (as sodium salt) 500 500 mg PO PM 30 Days #300 ml 06/08/21 06/16/21 Rx mg/10 mL (10 mL) oral solution Bed Side Commode #1 ea 06/12/21 Rx miscellaneous medical supply 1 ea MISCELLANEOUS DAILY #1 ea 06/12/21 Rx miscellaneous medical supply 1 ea MISCELLANEOUS DAILY #1 ea 06/12/21 Rx Hospital Bed Homecare (Hospital #1 ea 06/15/21 Rx Bed) menthol 0.44 %-zinc oxide 20.6 % 1 applic TOPICAL QID PRN #113 g 06/15/21 06/16/21 Rx topical ointment (Calmoseptine) Past Med/Surg History Medical History Adrenal insufficiency Ataxic gait Benign prostate hyperplasia Bilateral carotid artery occlusion PT STATES NO SURGERY Bipolar disorder 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 Esophageal stenosis GERD (gastroesophageal reflux disease) Hepatic steatosis Hiatal hernia History of COVID-19 07/2020 ([facility]) HOSPITALIZED AT [facility] History of lung cancer (01/2016) 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 Homicidal ideation PT DENIES AT PRESENT TIME Hypertension Memory loss Osteomyelitis Peripheral arterial disease Peripheral neuropathy Recurrent left pleural effusion s/p thoracentesis August 2018 Restless leg syndrome Schizoaffective disorder Surgical History H/O foot surgery LEFT HEEL REMOVAL FROM PRESSURE ULCER History of bronchoscopy (01/2016) History of colonoscopy History of herniorrhaphy History of lobectomy of lung LOWER LEFT LUNG S/P peripheral artery angioplasty with stent placement (06/2016) 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, 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 S/P thoracentesis (05/2019) L pleural effusion Status post femorofemoral bypass surgery (06/2016) [place] teeth removed Family History Brother Myocardial infarction Father Myocardial infarction Other Cancer Family history non-contributory Lung disease No family history of adverse response to anesthesia Denies family history of Tuberculosis Ovarian cancer Prostate cancer Diabetes Heart disease Allergies Breast cancer Emphysema, unspecified Lung cancer Colorectal cancer Asthma Social History Smoking Status: Former smoker Tobacco Type: Cigarettes Age Started Using Tobacco: 10; packs per day: 0.5; Years Smoked: 30; Cigarettes Per Day: 6-8 DAILY; Second Hand Exposure: Yes; Hx Alcohol Use: Yes Alcohol type: beer Alcohol Intake Frequency: 4 or More x per/Week Alcohol Intake Frequency Comment: mostly daily Hx Substance Use: Yes Prescribed Medications: Marijuana Last Used Substance: Days (ago) Last Used Substance Other:: 3 Preferred Language: Japanese Communication Ability: Effective Visual Impairment: No Limitations Hearing Ability: Normal Insecticide Mixer Required: No Beliefs That Will Affect Care: None marital status: single Current Living Situation: Alone current occupational status: disabled How many Children do You have: 2 Feels Safe at Home: Yes and Declines to Answer Childhood Exposure to Second-Hand Smoke: Yes Diet Comment: regular caffeine: Yes (coffee 1 pot a day) during the past year weight has: remained stable Dental Care, Regularly: No Physical Activity Frequency: Does not Exercise Seatbelt Use: always Sunscreen Use: No Assistive Devices: Wheelchair Review of Systems Constitutional: + fatigue; no fever and no chills Eyes: no diplopia Ear, Nose, Mouth, Throat: no ear pain Respiratory: no cough and no dyspnea Cardiovascular: no chest pain Gastrointestinal: no abdominal pain, no nausea and no vomiting Genitourinary: no dysuria Musculoskeletal: no back pain Integumentary: no rash Neurologic: + generalized weakness; no localized weakness Physical Exam Physical Exam: No signs of head trauma. Erythema and skin breakdown noted in the sacral area Constitutional: + thin; no acute distress Eyes: no conjunctival abnormality ENMT: Ears: no hearing impairment Neck: trachea midline Respiratory: normal respiratory effort; no respiratory distress and no labored breathing Patient is not using accessory muscles to aid in respiration. Breath sounds are noted to be decreased on the left side. No wheezing noted Cardiovascular: Rate/Rhythm: regular rate and regular rhythm Gastrointestinal (Abdomen): Soft, nontender, nondistended Musculoskeletal: No calf tenderness, no gross orthopedic abnormality Skin: no rashes Neurologic: moves all extremities Patient is able to follow simple commands and move all 4 extremities without noted focal deficit Psychiatric: Orientation: alert and oriented x 3 Affect: + flat affect Results & Data Results & Data ([place]) Vital Signs (Past 12 Hours) Vital Signs Temp Pulse Pulse Resp BP BP Pulse Ox 06/16/21 13:00 100 H 22 88/66 L 95 06/16/21 11:03 96 H 20 126/70 94 06/16/21 09:29 98 H 22 94 06/16/21 09:03 36.6 C 101 H 94 H 22 128/85 128/85 96 Supervising Physician Co-Signing Physician Notes Patient was seen and examined independently I discussed the case with Quincy FLORES I reviewed pertinent past medical social family history and also the plan of care and agree with the plan of care. Patient had a prolonged hospital stay was attempted to be trialed at home obviously failed patient has been falling recently and fell today calling EMS. Patient looks decline from when he was discharged as I did see the patient on the day of discharge. Patient has skin breakdown to sacrum. He initially was hypotensive and concern could be that he may not have been taking his medications appropriately at home. He is given a liter of crystalloid solution in the ER will be continued for another liter. The patient will be given stress dose steroids at 50 hydrocortisone every 8 starting his normal steroid dosing on the cultures will be taken and followed including urine culture. Wound care will see his sacral breakdown and PT OT will be evaluating him. Physical exam matias the patient is awake alert appropriate he says he feels decl ined his heart is regular his lungs have decreased breath sounds on the left side his skin is a stage I-II decubitus ulcer on the sacrum there is not appear to be acutely infected Any exceptions will be noted below PG Care Time/CCT Total # of Minutes Spent Total Time Spent with Patient: Total time spent is greater than 50% in coordination of care (as documented) at patient's floor/unit and/or counseling patient: Coding Level of Care Code 57264 Initial Inpt Care Lvl 3 Diagnoses Failure to thrive
[2021-06-16] MEDS ORDERED: HYDROCORTISONE SOD SUCCINATE 100 MG/2 ML VIAL IV SCH (14:00)
[2021-06-16] MEDS ORDERED: ALUMINUM/MAGNESIUM SUSP 30 ML UDC PO PRN (16:40)
[2021-06-16] MEDS ORDERED: DOCUSATE SODIUM 100 MG CAP PO PRN (16:40)
[2021-06-16] MEDS ORDERED: NON-FORMULARY MEDICATION (Fluticasone-Umeclidin-Vilanter [Trelegy Ellipta] 100-62.5-25 mcg INH SCH (16:40)
[2021-06-16] MEDS ORDERED: POLYETHYLENE (MIRALAX) 17 GM PACK PO PRN (16:40)
[2021-06-16] MEDS ORDERED: ALBUTEROL HFA 8 GM INHALER INH PRN (16:40)
[2021-06-16] MEDS ORDERED: ACETAMINOPHEN 325 MG TAB PO PRN (16:40)
[2021-06-16] MEDS ORDERED: ONDANSETRON INJ 2 MG/ML 2 ML VIAL IV PRN (16:40)
[2021-06-16] MEDS ORDERED: MELATONIN 3 MG TAB PO PRN (16:48)
[2021-06-16] MEDS: UMECLIDINIUM/VILANTEROL 62.5/25MCG 7 PUFFS/INHALER INH SCH (18:28)
[2021-06-16] MEDS: FLUTICASONE FUROATE 100MCG 14 PUFFS/INHALER INH SCH (18:29)
[2021-06-16] MEDS: VALPROIC ACID SOLN 500 MG/10 ML UDC PO SCH (21:49)
[2021-06-16] MEDS: HYDROCORTISONE SOD 50 MG in SYRINGE 0 ML IV SCH (21:49)
[2021-06-16] MEDS: ASCORBIC ACID 500 MG TAB PO SCH (21:50)
[2021-06-16] MEDS: QUEtiapine FUMARATE 25 MG TABLET PO SCH (21:50)
[2021-06-17] MEDS: HYDROCORTISONE SOD 50 MG in SYRINGE 0 ML IV SCH ×3 (06:13→21:05)
[2021-06-17 06:22] LABS: Calcium 8.7 mg/dl (8.5-10.1); Creatinine Clr Calc Pharmacy 89.4 ml/min; Est GFR (Non-African American) 94.9 ml/min; Potassium 3.5 mmol/L (3.5-5.1)
[2021-06-17] MEDS: VALPROIC ACID SOLN 250 MG/5 ML UDC PO SCH (07:55)
[2021-06-17] MEDS: buPROPion HCl 100 MG TABLET PO SCH (07:55)
[2021-06-17] MEDS: LANSOPRAZOLE 30 MG SOLTAB PO SCH (07:56)
[2021-06-17] MEDS: ASCORBIC ACID 500 MG TAB PO SCH ×2 (07:56→21:04)
[2021-06-17] MEDS: CLOPIDOGREL BISULFATE 75 MG TAB PO SCH (07:56)
[2021-06-17] MEDS: ATORVASTATIN 40 MG TAB PO SCH (07:56)
[2021-06-17] MEDS: FOLIC ACID 1 MG TAB PO SCH (07:56)
[2021-06-17] MEDS: CHOLECALCIFEROL 1,000 UNITS 25 MCG TAB PO SCH (07:56)
[2021-06-17] MEDS: ENOXAPARIN INJ 40 MG/0.4 ML SYR SQ SCH (07:57)
[2021-06-17] MEDS: KETOCONAZOLE 2% CR 15 GM TUBE EXT SCH (07:57)
--- NOTE | 2021-06-17 11:43 | Hospitalist Progress Note ---
Date of Service June 17, 2021 Assessment & Plan (1) Failure to thrive: Plan: Manifested by frequent falls, unsure if he is taking medications correctly, deconditioned state - Readmitted with plans to proceed with safe discharge plan which will require SNF placement for termination clerk care at his time - Case management has been consulted to assist in this process (2) Pressure ulcer: Plan: Stage 1-2 - Appreciate assistance in managing w/ wound care nursing team (3) Weakness: Plan: - PT/OT - Pt will require SNF placement as he failed a trial at home (4) Adrenal insufficiency: Plan: - Stress dose steroids as ordered w/ Solu-Cortef and transition to oral Hydr ocortisone regimen 06/18 - BP acceptable Plan: Lovenox for DVT ppx Code status: full Notified by RN that 1/4 bottles of blood culture tubes + for GPC in clusters, likely staph, and probable contaminant. No other s/sx concerning for infection at present. Will not initiate abx. Admission and Anticipated Discharge Date Admission Date: June 16, 2021 Subjective Mr. Luther was seen on rounds today. He is well known to me from his prior hospitalization. He is currently resting in bed and offers no new complaints/concerns. Was re-hospitalized due to recurrent falls at home after a very brief trial at home w/ increase in his waiver services and home health. Pt was found by EMS to be hypotensive, there was concern that he was not taking his medications correctly and subsequently transported back to the ED. On rounds, he has no new complaints. He reports that he is upset in general with him falling, the difficulty in placement due to COVID, and overall just his debility. He denies cp, dyspnea, n/v/d, f/c, headache, dizziness, or gu symptoms. Review of Systems Review of Systems: CONSTITUTIONAL: Denies weight loss/gain, fever and chills, fatigue, malaise, generalized weakness. HEENT: Denies changes in vision and hearing. RESPIRATORY: Denies SOB, cough, wheezing. CV: Denies palpitations, CP, lower extremity edema, orthopnea, PND. GI: Denies abdominal pain, nausea, vomiting and diarrhea. : Denies dysuria and urinary frequency, urgency, hesitancy. MUSCULOSKELETAL: Denies myalgia and joint pain. SKIN: Denies rash and pruritus. NEUROLOGICAL: Denies headache, syncope, focal weakness, numbness, tingling. PSYCHIATRIC: Denies recent changes in mood. Denies anxiety and depression. Physical Exam Physical Exam: GENERAL: 66 yo WD/WN WM. NAD. A&Ox3. LUNGS: Clear to auscultation bilaterally. No accessory muscle use. No W/R/R. CARDIOVASCULAR: Regular rate and rhythm. No M/G/R. No JVD. ABDOMEN: Soft, non-tender and non-distended. No palpable masses. Bowel sounds normoactive x 4 quad. EXTREMITIES: No edema. Non-tender. Peripheral pulses +2/4. PSYCHIATRIC: Cooperative. Appropriate mood and affect. SKIN: stage 2 pressure ulcer in sacral area. Results & Data Results & Data ([facility]) Vital Signs (Past 12 Hours) Vital Signs Temp Pulse Resp BP Pulse Ox 06/17/21 07:29 36.4 C L 94 H 16 114/68 98 Laboratory Results 06/16/21 10:40 06/17/21 05:41 PG Care Time/CCT Total # of Minutes Spent Total Time Spent with Patient: Total time spent is greater than 50% in coordination of care (as documented) at patient's floor/unit and/or counseling patient: Coding Level of Care Code 50585 Subseq Hosp Care Lvl 2 Diagnoses Failure to thrive Pressure ulcer L89.301 Laterality: unspecified laterality Pressure injury location: buttock Pressure injury stage: stage 1 Weakness R53.1 Adrenal insufficiency E27.40 (1) Pressure ulcer Laterality: unspecified laterality Pressure injury location: buttock Pressure injury stage: stage 1 Qualified Code(s): L89.301 - Pressure ulcer of unspecified buttock, stage 1
[2021-06-17] MEDS: FLUTICASONE FUROATE 100MCG 14 PUFFS/INHALER INH SCH (17:57)
[2021-06-17] MEDS: UMECLIDINIUM/VILANTEROL 62.5/25MCG 7 PUFFS/INHALER INH SCH (17:57)
[2021-06-17] MEDS: VALPROIC ACID SOLN 500 MG/10 ML UDC PO SCH (21:04)
[2021-06-17] MEDS: QUEtiapine FUMARATE 25 MG TABLET PO SCH (21:04)
[2021-06-18 06:48] LABS: BUN Creatinine Ratio 20.4 (10-20); Calcium 8.6 mg/dl (8.5-10.1); Creatinine Clr Calc Pharmacy 124.1 ml/min; Est GFR (African American) 125.9 ml/min; Est GFR (Non-African American) 108.6 ml/min; Potassium 3.7 mmol/L (3.5-5.1)
[2021-06-18 07:42] LABS: Hematocrit (blood only) 30.5 % (42-52); Hemoglobin 9.1 g/dL (14.0-18.0); Mean Corpuscular Hemoglobin 25.7 pg (25-34); Mean Corpuscular Hgb Conc 29.8 g/dL (32-36); Mean Corpuscular Volume 86.2 fL (80-100); Mean Platelet Volume 9.3 fL (7.4-10.4); Platelet Count 224 K/uL (130-400); RDW Coefficient of Variation 18.7 % (11.5-14.5); RDW Standard Deviation 59.5 fL (36.4-46.3); Red Blood Count 3.54 M/uL (4.7-6.1); White Blood Count 10.07 K/uL (4.8-10.8)
[2021-06-18] MEDS: FOLIC ACID 1 MG TAB PO SCH (08:07)
[2021-06-18] MEDS: buPROPion HCl 100 MG TABLET PO SCH (08:07)
[2021-06-18] MEDS: HYDROCORTISONE 10 MG TAB PO SCH ×2 (08:07→15:36)
[2021-06-18] MEDS: ATORVASTATIN 40 MG TAB PO SCH (08:07)
[2021-06-18] MEDS: CHOLECALCIFEROL 1,000 UNITS 25 MCG TAB PO SCH (08:07)
[2021-06-18] MEDS: LANSOPRAZOLE 30 MG SOLTAB PO SCH (08:07)
[2021-06-18] MEDS: KETOCONAZOLE 2% CR 15 GM TUBE EXT SCH (08:08)
[2021-06-18] MEDS: CLOPIDOGREL BISULFATE 75 MG TAB PO SCH (08:08)
[2021-06-18] MEDS: ENOXAPARIN INJ 40 MG/0.4 ML SYR SQ SCH (08:08)
[2021-06-18] MEDS: ASCORBIC ACID 500 MG TAB PO SCH ×2 (08:08→20:22)
[2021-06-18] MEDS: VALPROIC ACID SOLN 250 MG/5 ML UDC PO SCH (08:09)
--- NOTE | 2021-06-18 10:49 | Hospitalist Progress Note ---
Date of Service June 18, 2021 Assessment & Plan (1) Failure to thrive: Plan: Manifested by frequent falls, unsure if he is taking medications correctly, deconditioned state - Readmitted with plans to proceed with safe discharge plan which will require SNF placement for intermediate manager care at his time - Case management has been consulted to assist in this process - Per CM note, referrals have been sent to [facility], and [facility] (2) Pressure ulcer: Plan: Stage 1-2 - Appreciate assistance in managing w/ wound care nursing team (3) Weakness: Plan: - PT/OT - Pt will require SNF placement as he failed a trial at home (4) Adrenal insufficiency: Plan: - Stress dose steroids completed and transitioned to oral Hydrocortisone regimen 06/18 - BP acceptable (5) UTI (urinary tract infection): Plan: - Staph species noted on preliminary urine culture - Will start on Doxycycline 100mg BID - Await final urine culture results w/ sensitivities and adjust abx accordingly Plan: Lovenox for DVT ppx Code status: full Repeat labs in AM as ordered Case management following to assist in d/c planning Admission and Anticipated Discharge Date Admission Date: June 16, 2021 Subjective Mr. Luther was seen on rounds today. He is well known to me from his prior hospitalization. He is currently resting in bed and offers no new complaints/concerns. He denies cp, dyspnea, n/v/d, f/c, headache, dizziness, or gu symptoms. Review of Systems Review of Systems: CONSTITUTIONAL: Denies weight loss/gain, fever and chills, fatigue, malaise, generalized weakness. HEENT: Denies changes in vision and hearing. RESPIRATORY: Denies SOB, cough, wheezing. CV: Denies palpitations, CP, lower extremity edema, orthopnea, PND. GI: Denies abdominal pain, nausea, vomiting and diarrhea. : Denies dysuria and urinary frequency, urgency, hesitancy. MUSCULOSKELETAL: Denies myalgia and joint pain. SKIN: Denies rash and pruritus. NEUROLOGICAL: Denies headache, syncope, focal weakness, numbness, tingling. PSYCHIATRIC: Denies recent changes in mood. Denies anxiety and depression. Physical Exam Physical Exam: GENERAL: 66 yo WD/WN WM. NAD. A&Ox3. LUNGS: Clear to auscultation bilaterally. No accessory muscle use. No W/R/R. CARDIOVASCULAR: Regular rate and rhythm. No M/G/R. No JVD. ABDOMEN: Soft, non-tender and non-distended. No palpable masses. Bowel sounds normoactive x 4 quad. EXTREMITIES: No edema. Non-tender. Peripheral pulses +2/4. PSYCHIATRIC: Cooperative. Appropriate mood and affect. SKIN: stage 2 pressure ulcer in sacral area. Results & Data Results & Data ([facility]) Vital Signs (Past 12 Hours) Vital Signs Temp Pulse Resp BP Pulse Ox 06/18/21 08:05 36.5 C 65 17 137/76 97 Laboratory Results 06/18/21 05:34 06/18/21 05:34 Spec: [id number] Collected: 06/16/21 Received: 06/16/[address]: Justin Pelayo MD Source: Urine,Indwelling Cath OV Order: Ordered: Urine Culture Procedure Result Verified Site Urine Culture Preliminary 06/17/21 Organism 1 Staphylococcus species [place] Count 30,000 CFU/ml Sens Sensitivities to Follow PG Care Time/CCT Total # of Minutes Spent Total Time Spent with Patient: Total time spent is greater than 50% in coordination of care (as documented) at patient's floor/unit and/or counseling patient: Coding Level of Care Code 44880 Subseq Hosp Care Lvl 2 Diagnoses Failure to thrive Pressure ulcer L89.301 Laterality: unspecified laterality Pressure injury location: buttock Pressure injury stage: stage 1 Weakness R53.1 Adrenal insufficiency E27.40 UTI (urinary tract infection) N39.0 (1) Pressure ulcer Laterality: unspecified laterality Pressure injury location: buttock Pressure injury stage: stage 1 Qualified Code(s): L89.301 - Pressure ulcer of unspecified buttock, stage 1
[2021-06-18] MEDS: DOXYCYCLINE HYCLATE 100 MG CAP PO SCH ×2 (12:14→20:22)
[2021-06-18] MEDS: UMECLIDINIUM/VILANTEROL 62.5/25MCG 7 PUFFS/INHALER INH SCH (17:17)
[2021-06-18] MEDS: FLUTICASONE FUROATE 100MCG 14 PUFFS/INHALER INH SCH (17:18)
[2021-06-18] MEDS: QUEtiapine FUMARATE 25 MG TABLET PO SCH (20:22)
[2021-06-18] MEDS: VALPROIC ACID SOLN 500 MG/10 ML UDC PO SCH (20:22)
[2021-06-19 08:47] LABS: Calcium 8.5 mg/dl (8.5-10.1); Creatinine Clr Calc Pharmacy 109.9 ml/min; Est GFR (African American) 119.8 ml/min; Est GFR (Non-African American) 103.3 ml/min; Potassium 3.1 mmol/L (3.5-5.1)
[2021-06-19] MEDS: buPROPion HCl 100 MG TABLET PO SCH (08:48)
[2021-06-19] MEDS: ATORVASTATIN 40 MG TAB PO SCH (08:49)
[2021-06-19] MEDS: FOLIC ACID 1 MG TAB PO SCH (08:49)
[2021-06-19] MEDS: CHOLECALCIFEROL 1,000 UNITS 25 MCG TAB PO SCH (08:49)
[2021-06-19] MEDS: VALPROIC ACID SOLN 250 MG/5 ML UDC PO SCH (08:49)
[2021-06-19] MEDS: CLOPIDOGREL BISULFATE 75 MG TAB PO SCH (08:49)
[2021-06-19] MEDS: LANSOPRAZOLE 30 MG SOLTAB PO SCH (08:49)
[2021-06-19] MEDS: DOXYCYCLINE HYCLATE 100 MG CAP PO SCH (08:49)
[2021-06-19] MEDS: HYDROCORTISONE 10 MG TAB PO SCH ×2 (08:50→14:31)
[2021-06-19] MEDS: ASCORBIC ACID 500 MG TAB PO SCH ×2 (08:50→20:41)
[2021-06-19] MEDS: ENOXAPARIN INJ 40 MG/0.4 ML SYR SQ SCH (08:51)
[2021-06-19] MEDS: KETOCONAZOLE 2% CR 15 GM TUBE EXT SCH (08:51)
[2021-06-19] MEDS ORDERED: POTASSIUM CHLORIDE CRTAB 20 MEQ TABCR PO STA ×2 (08:55→12:12)
--- NOTE | 2021-06-19 12:33 | Hospitalist Progress Note ---
Date of Service June 19, 2021 Assessment & Plan (1) UTI (urinary tract infection): Plan: - Staph species noted on preliminary urine culture - Empirically started on Doxycycline - Unfortunately, urine cx coag neg staph resistant to tetracycline and PCN c/w MRSA - Will start Daptomycin, given 1/4 blood cultures are positive for same, will treat x 14 days - Hold Lipitor while on Dapto (2) Bacteremia due to methicillin resistant Staphylococcus aureus: Plan: - As per #1 - Repeat blood cultures 48 hours after starting treatment (3) Failure to thrive: Plan: Manifested by frequent falls, unsure if he is taking medications correctly, deconditioned state - Readmitted with plans to proceed with safe discharge plan which will require SNF placement for usp care at his time - Case management has been consulted to assist in this process - Per CM note, referrals have been sent to [facility], and [facility] (4) Pressure ulcer: Plan: Stage 1-2 - Appreciate assistance in managing w/ wound care nursing team (5) Weakness: Plan: - PT/OT - Pt will require SNF placement as he failed a trial at home (6) Adrenal insufficiency: Plan: - Stress dose steroids completed and transitioned to oral Hydrocortisone regimen 06/18 - BP acceptable (7) Hypokalemia: Plan: - Replacement ordered - Repeat labs in AM Plan: Lovenox for DVT ppx Code status: full Repeat labs in AM as ordered Case management following to assist in d/c planning Admission and Anticipated Discharge Date Admission Date: June 16, 2021 Subjective Mr. Luther was seen on rounds today. He is well known to me from his prior hospitalization. He is currently resting in bed and offers no new complaints/concerns. He denies cp, dyspnea, n/v/d, f/c, headache, dizziness, or gu symptoms. Review of Systems Review of Systems: CONSTITUTIONAL: Denies weight loss/gain, fever and chills, fatigue, malaise, generalized weakness. HEENT: Denies changes in vision and hearing. RESPIRATORY: Denies SOB, cough, wheezing. CV: Denies palpitations, CP, lower extremity edema, orthopnea, PND. GI: Denies abdominal pain, nausea, vomiting and diarrhea. : Denies dysuria and urinary frequency, urgency, hesitancy. MUSCULOSKELETAL: Denies myalgia and joint pain. SKIN: Denies rash and pruritus. NEUROLOGICAL: Denies headache, syncope, focal weakness, numbness, tingling. PSYCHIATRIC: Denies recent changes in mood. Denies anxiety and depression. Physical Exam Physical Exam: GENERAL: 66 yo WD/WN WM. NAD. A&Ox3. LUNGS: Clear to auscultation bilaterally. No accessory muscle use. No W/R/R. CARDIOVASCULAR: Regular rate and rhythm. No M/G/R. No JVD. ABDOMEN: Soft, non-tender and non-distended. BS normal x 4 quad. EXTREMITIES: No edema. Non-tender. Peripheral pulses +2/4. PSYCHIATRIC: Cooperative. Appropriate mood and affect. SKIN: stage 2 pressure ulcer in sacral area. Results & Data Results & Data ([facility]) Vital Signs (Past 12 Hours) Vital Signs Temp Pulse Resp BP Pulse Ox 06/19/21 07:29 36.6 C 81 17 115/68 96 Laboratory Results 06/18/21 05:34 06/19/21 08:00 Spec: [id number] Collected: 06/16/21 Received: 06/16/[address]: Justin Pelayo MD Source: Urine,Indwelling Cath OV Order: Ordered: Urine Culture Procedure Result Verified Site Urine Culture Final 06/18/21 Organism 1 Coag negative Staphylococcus [place] Count 30,000 CFU/ml Sens Sensitivities to Follow [employer] RX M.I.C. --- --------- Daptomycin S <=0.5 Nitrofurantoin S <=32 Oxacillin R 2 Tetracycline R >8 Trimeth/Sulfa R >2/38 Vancomycin S 2 S = SENSITIVE I = INTERMEDIATE R = RESISTANT PG Care Time/CCT Total # of Minutes Spent Total Time Spent with Patient: Total time spent is greater than 50% in coordination of care (as documented) at patient's floor/unit and/or counseling patient: Coding Level of Care Code 37049 Subseq Hosp Care Lvl 3 Diagnoses Failure to thrive Pressure ulcer L89.301 Laterality: unspecified laterality Pressure injury location: buttock Pressure injury stage: stage 1 Weakness R53.1 Adrenal insufficiency E27.40 UTI (urinary tract infection) N39.0 Hypokalemia E87.6 Bacteremia due to methicillin resistant Staphylococcus aureus R78.81; B95.62 (1) Pressure ulcer Laterality: unspecified laterality Pressure injury location: buttock Pressure injury stage: stage 1 Qualified Code(s): L89.301 - Pressure ulcer of unspecified buttock, stage 1
[2021-06-19] MEDS ORDERED: DAPTOmycin 400 MG in SYRINGE 0 ML IV ONE (13:00)
[2021-06-19] MEDS: UMECLIDINIUM/VILANTEROL 62.5/25MCG 7 PUFFS/INHALER INH SCH (17:16)
[2021-06-19] MEDS: FLUTICASONE FUROATE 100MCG 14 PUFFS/INHALER INH SCH (17:16)
[2021-06-19] MEDS: QUEtiapine FUMARATE 25 MG TABLET PO SCH (20:41)
[2021-06-19] MEDS: VALPROIC ACID SOLN 500 MG/10 ML UDC PO SCH (20:41)
[2021-06-20 06:49] LABS: Hematocrit (blood only) 32.1 % (42-52); Hemoglobin 10.1 g/dL (14.0-18.0); Mean Corpuscular Hemoglobin 25.8 pg (25-34); Mean Corpuscular Hgb Conc 31.5 g/dL (32-36); Mean Corpuscular Volume 82.1 fL (80-100); Mean Platelet Volume 8.8 fL (7.4-10.4); Platelet Count 342 K/uL (130-400); RDW Coefficient of Variation 19.1 % (11.5-14.5); RDW Standard Deviation 57.4 fL (36.4-46.3); Red Blood Count 3.91 M/uL (4.7-6.1); White Blood Count 7.22 K/uL (4.8-10.8)
[2021-06-20 07:11] LABS: BUN Creatinine Ratio 29.1 (10-20); Calcium 8.3 mg/dl (8.5-10.1); Creatinine Clr Calc Pharmacy 121.9 ml/min; Est GFR (Non-African American) 107.8 ml/min; Potassium 3.7 mmol/L (3.5-5.1)
[2021-06-20] MEDS: ASCORBIC ACID 500 MG TAB PO SCH ×2 (09:26→20:08)
[2021-06-20] MEDS: FOLIC ACID 1 MG TAB PO SCH (09:26)
[2021-06-20] MEDS: LANSOPRAZOLE 30 MG SOLTAB PO SCH (09:27)
[2021-06-20] MEDS: buPROPion HCl 100 MG TABLET PO SCH (09:27)
[2021-06-20] MEDS: CHOLECALCIFEROL 1,000 UNITS 25 MCG TAB PO SCH (09:27)
[2021-06-20] MEDS: HYDROCORTISONE 10 MG TAB PO SCH ×2 (09:27→15:36)
[2021-06-20] MEDS: CLOPIDOGREL BISULFATE 75 MG TAB PO SCH (09:27)
[2021-06-20] MEDS: ENOXAPARIN INJ 40 MG/0.4 ML SYR SQ SCH (09:28)
[2021-06-20] MEDS: VALPROIC ACID SOLN 250 MG/5 ML UDC PO SCH (09:28)
[2021-06-20] MEDS: MIDODRINE HCL 2.5 MG TAB PO SCH ×2 (12:53→17:38)
[2021-06-20] MEDS ORDERED: DAPTOmycin 400 MG in SYRINGE 0 ML IV SCH (13:00)
[2021-06-20] MEDS: KETOCONAZOLE 2% CR 15 GM TUBE EXT SCH (13:04)
--- NOTE | 2021-06-20 15:15 | Hospitalist Progress Note ---
Date of Service June 20, 2021 Assessment & Plan (1) Abnormal urinalysis: Plan: - Initially started on doxycycline and transitioned to IV daptomycin - Urine culture showing coag negative staph species but patient without urinary complaints. Denies dysuria, hematuria, frequency, retention. Patient completely afebrile and white blood cell count has been normal - Likely asymptomatic bacteriuria but at any rate, has completed 3 days of antibiotics which is sufficient for uncomplicated UTI. - stop abx at this time - in addition, pt noted to have coag neg staph species in 1/4 tubes of his blood culture. NOT LUGDENESIS. Currently In IV dapto but suspect this is likely contaminated specimen. D/C Dapto at this time as rest of his BC are showing NG. No fever and normal WBC (2) Failure to thrive: Plan: Manifested by frequent falls, unsure if he is taking medications correctly, deconditioned state - Readmitted with plans to proceed with safe discharge plan which will require SNF placement for fpc care at his time - Case management has been consulted to assist in this process - Per CM note, referrals have been sent to [facility], [facility], and [facility] (3) Pressure ulcer: Plan: Stage 1-2 - Appreciate assistance in managing w/ wound care nursing team (4) Weakness: Plan: - PT/OT - Pt will require SNF placement as he failed a trial at home (5) Adrenal insufficiency: Plan: - Stress dose steroids completed and transitioned to oral Hydrocortisone regimen 06/18 - BP acceptable (6) Hypokalemia: Plan: - Replaced/resolved (7) Hypotension: Plan: Patient started on midodrine during his last hospitalization but not resumed with readmission BP 93/59 this morning. Patient denies dizziness/lightheadedness but hasn't been out of bed. Did have orthostasis during last hospital stay RESUME MIDODRINE and uptitrate accordingly Plan: Lovenox for DVT ppx Code status: full Case management following to assist in d/c planning Admission and Anticipated Discharge Date Admission Date: June 16, 2021 Subjective Patient seen on daily rounds today. Denies fevers, chills, chest pain, shortness of breath, abdominal pain, nausea or vomiting. Noted to be on IV antibiotic therapy for urinary tract infection. Urine culture showing staph species. Patient currently denies dysuria, hematuria, frequency, retention or trouble voiding. No fevers or chills. No suprapubic or abdominal pain. Nursing concerned that his blood pressure was 93/59 this morning. Patient denied dizziness or lightheadedness. This is an ongoing issue and known to me from his last hospitalization. Was started on midodrine during that hospital stay which is noted not to be on his current medication list. Review of Systems Review of Systems: All systems reviewed and are unremarkable except as noted in HPI and below Denies fevers, chills, headache, nasal congestion, sore throat, cough, chest pain, shortness of breath, palpitations, orthopnea, PND, abdominal pain, nausea, vomiting, diarrhea, constipation, dysuria, hematuria, frequency, back pain, joint pain or swelling, easy bruising or bleeding, skin lesions or rashes. Physical Exam Physical Exam: General: Resting comfortably in his hospital bed. Does not appear ill or toxic. NAD. HEENT: Head is AT/NC buccal mucosa is moist and pink Neck: No JVD. Negative hepatojugular reflex Cardiac: RRR without M/G/R Lungs: CTA without W/R/R Abdomen: Normoactive X4. Soft and nontender in all quadrants. Extremities: No peripheral clubbing cyanosis or edema Neuro: A&O X4 cranial nerves II through XII are grossly intact no focal neuro deficits Skin: No obvious skin lesions or rashes Psych: Appropriate affect pleasant and cooperative Results & Data Results & Data ([facility]) Vital Signs (Past 12 Hours) Vital Signs Temp Pulse Resp BP Pulse Ox 06/20/21 07:19 36.6 C 78 18 93/59 L 97 Laboratory Results 06/20/21 05:58 06/20/21 05:58 PG Care Time/CCT Total # of Minutes Spent Total Time Spent with Patient: Total time spent is greater than 50% in coordination of care (as documented) at patient's floor/unit and/or counseling patient: Coding Level of Care Code 30100 Subseq Hosp Care Lvl 2 Diagnoses Failure to thrive Pressure ulcer L89.301 Laterality: unspecified laterality Pressure injury location: buttock Pressure injury stage: stage 1 Weakness R53.1 Adrenal insufficiency E27.40 Hypokalemia E87.6 Abnormal urinalysis R82.90 Hypotension I95.9 (1) Pressure ulcer Laterality: unspecified laterality Pressure injury location: buttock Pressure injury stage: stage 1 Qualified Code(s): L89.301 - Pressure ulcer of unspecified buttock, stage 1
[2021-06-20] MEDS: UMECLIDINIUM/VILANTEROL 62.5/25MCG 7 PUFFS/INHALER INH SCH (17:36)
[2021-06-20] MEDS: FLUTICASONE FUROATE 100MCG 14 PUFFS/INHALER INH SCH (17:37)
[2021-06-20] MEDS: QUEtiapine FUMARATE 25 MG TABLET PO SCH (20:08)
[2021-06-20] MEDS: VALPROIC ACID SOLN 500 MG/10 ML UDC PO SCH (20:08)
[2021-06-21] MEDS: MIDODRINE HCL 2.5 MG TAB PO SCH ×3 (08:45→17:47)
[2021-06-21] MEDS: ASCORBIC ACID 500 MG TAB PO SCH ×2 (08:45→21:53)
[2021-06-21] MEDS: HYDROCORTISONE 10 MG TAB PO SCH ×2 (08:46→15:38)
[2021-06-21] MEDS: VALPROIC ACID SOLN 250 MG/5 ML UDC PO SCH (08:46)
[2021-06-21] MEDS: CLOPIDOGREL BISULFATE 75 MG TAB PO SCH (08:46)
[2021-06-21] MEDS: LANSOPRAZOLE 30 MG SOLTAB PO SCH (08:46)
[2021-06-21] MEDS: buPROPion HCl 100 MG TABLET PO SCH (08:46)
[2021-06-21] MEDS: CHOLECALCIFEROL 1,000 UNITS 25 MCG TAB PO SCH (08:46)
[2021-06-21] MEDS: FOLIC ACID 1 MG TAB PO SCH (08:46)
[2021-06-21] MEDS: ENOXAPARIN INJ 40 MG/0.4 ML SYR SQ SCH (08:47)
--- NOTE | 2021-06-21 09:15 | Hospitalist Progress Note ---
Date of Service June 21, 2021 Assessment & Plan (1) Abnormal urinalysis: Plan: - Initially started on doxycycline and transitioned to IV daptomycin - Urine culture showing coag negative staph species but patient without urinary complaints. Denies dysuria, hematuria, frequency, retention. Patient afebrile and white blood cell count has been normal - Likely asymptomatic bacteriuria but at any rate, has completed 3 days of antibiotics which is sufficient for uncomplicated UTI. - abx stopped 06/20 - in addition, pt noted to have coag neg staph species in 1/4 tubes of his blood culture. NOT LUGDENESIS. Was on IV dapto but suspect this is likely contaminated specimen. Dapto stopped on 06/20 as rest of his BC are showing NG. No fever and normal WBC (2) Failure to thrive: Plan: Manifested by frequent falls, unsure if he is taking medications correctly, deconditioned state - Hospitalized 03/17 through 06/08. Here and medically stable for weeks awaiting placement. Finally decided to go home with additional support from family but since being home, unable to care for self as he thought he would - Readmitted with plans to proceed with safe discharge plan which will require SNF placement for intermediate frame tender care at his time - Case management has been consulted to assist in this process - Per CM note, referrals have been sent to [facility], and [facility] (3) Pressure ulcer: Plan: Stage 1-2 - Appreciate assistance in managing w/ wound care nursing team (4) Weakness: Plan: - PT/OT - Pt will require SNF placement as he failed a trial at home (5) Adrenal insufficiency: Plan: - Stress dose steroids completed and transitioned to oral Hydrocortisone regimen 06/18 - BP acceptable (6) Hypokalemia: Plan: - Replaced/resolved (7) Hypotension: Plan: Patient started on midodrine during his last hospitalization but not resumed with readmission BP 93/59 on 06/20. Patient denied dizziness/lightheadedness but hasn't been out of bed. Did have orthostasis during last hospital stay RESUMED MIDODRINE -- BP currently improved 135/74 Plan: Lovenox for DVT ppx Code status: full Case management following to assist in d/c planning Admission and Anticipated Discharge Date Admission Date: June 16, 2021 Subjective Patient seen on daily rounds today. Vocalizes no complaints or concerns. Since being started back on midodrine, blood pressure improved. Denies fevers, chills, chest pain, shortness of breath, abdominal pain, nausea or vomiting Physical Exam Physical Exam: General: Resting comfortably in his hospital bed. Does not appear ill or toxic. NAD. HEENT: Head is AT/NC buccal mucosa is moist and pink Neck: No JVD. Negative hepatojugular reflex Cardiac: RRR without M/G/R Lungs: CTA without W/R/R Abdomen: Normoactive X4. Soft and nontender in all quadrants. Extremities: No peripheral clubbing cyanosis or edema Neuro: A&O X4 cranial nerves II through XII are grossly intact no focal neuro deficits Skin: No obvious skin lesions or rashes Psych: Appropriate affect pleasant and cooperative Results & Data Results & Data ([facility]) Vital Signs (Past 12 Hours) Vital Signs Temp Pulse Resp BP Pulse Ox 06/21/21 07:24 36.6 C 74 18 102/63 91 06/20/21 22:52 36.6 C 74 18 135/74 97 Laboratory Results no lab data today PG Care Time/CCT Total # of Minutes Spent Total Time Spent with Patient: Total time spent is greater than 50% in coordination of care (as documented) at patient's floor/unit and/or counseling patient: Coding Level of Care Code 07263 Subseq Hosp Care Lvl 1 Diagnoses Abnormal urinalysis R82.90 Failure to thrive Pressure ulcer L89.301 Laterality: unspecified laterality Pressure injury location: buttock Pressure injury stage: stage 1 Weakness R53.1 Adrenal insufficiency E27.40 Hypokalemia E87.6 Hypotension I95.9 (1) Pressure ulcer Laterality: unspecified laterality Pressure injury location: buttock Pressure injury stage: stage 1 Qualified Code(s): L89.301 - Pressure ulcer of u nspecified buttock, stage 1
[2021-06-21] MEDS: KETOCONAZOLE 2% CR 15 GM TUBE EXT SCH (15:39)
[2021-06-21] MEDS: UMECLIDINIUM/VILANTEROL 62.5/25MCG 7 PUFFS/INHALER INH SCH (17:47)
[2021-06-21] MEDS: FLUTICASONE FUROATE 100MCG 14 PUFFS/INHALER INH SCH (17:47)
[2021-06-21] MEDS: VALPROIC ACID SOLN 500 MG/10 ML UDC PO SCH (21:53)
[2021-06-21] MEDS: QUEtiapine FUMARATE 25 MG TABLET PO SCH (21:53)
[2021-06-22 06:56] LABS: Hemoglobin 10.8 g/dL (14.0-18.0); Mean Corpuscular Hemoglobin 26.4 pg (25-34); Mean Corpuscular Hgb Conc 31.8 g/dL (32-36); Mean Corpuscular Volume 83.1 fL (80-100); Mean Platelet Volume 8.9 fL (7.4-10.4); Platelet Count 386 K/uL (130-400); RDW Coefficient of Variation 19.5 % (11.5-14.5); RDW Standard Deviation 59.2 fL (36.4-46.3); Red Blood Count 4.09 M/uL (4.7-6.1); White Blood Count 8.15 K/uL (4.8-10.8)
--- NOTE | 2021-06-22 07:14 | Hospitalist Progress Note ---
Date of Service June 22, 2021 Assessment & Plan (1) Abnormal urinalysis: Plan: * Initially started on doxycycline and transitioned to IV daptomycin * Urine culture showing coag negative staph species but patient without urinary complaints. Denies dysuria, hematuria, frequency, retention. Patient afebrile and white blood cell count has been normal * Likely asymptomatic bacteriuria but at any rate, has completed 3 days of antibiotics which is sufficient for uncomplicated UTI. * abx stopped 06/20 * in addition, pt noted to have coag neg staph species in 1/4 tubes of his blood culture. NOT LUGDENESIS. Was on IV dapto but suspect this is likely contaminated specimen. Dapto stopped on 06/20 as rest of his BC are showing NG. No fever and normal WBC (2) Failure to thrive: Plan: Manifested by frequent falls, unsure if he is taking medications correctly, deconditioned state * Hospitalized 03/17 through 06/08. Here and medically stable for weeks awaiting placement. Finally decided to go home with additional support from family but since being home, unable to care for self as he thought he would * Readmitted with plans to proceed with safe discharge plan which will require SNF placement for continuous churn buttermaker care at his time * Case management has been consulted to assist in this process * Per CM note, referrals have been sent to [facility], [facility], and [facility] (3) Pressure ulcer: Plan: Stage 1-2 - Appreciate assistance in managing w/ wound care nursing team (4) Weakness: Plan: - PT/OT - Pt will require SNF placement as he failed a trial at home (5) Adrenal insufficiency: Plan: - Stress dose steroids completed and transitioned to oral Hydrocortisone regimen 06/18 - BP acceptable (6) Hypokalemia: Plan: - Replaced/resolved (7) Hypotension: Plan: Patient started on midodrine during his last hospitalization but not resumed with readmission BP 93/59 on 06/20. Patient denied dizziness/lightheadedness but hasn't been out of bed. Did have orthostasis during last hospital stay RESUMED MIDODRINE -- BP currently improved 127/65 Plan: Lovenox for DVT ppx Code status: full Case management following to assist in d/c planning Admission and Anticipated Discharge Date Admission Date: June 16, 2021 Subjective Patient seen on daily rounds today. No complaints or concerns per patient or staff. Review of Systems Review of Systems: All systems reviewed and are unremarkable except as noted in HPI and below Denies fevers, chills, headache, nasal congestion, sore throat, cough, chest pain, shortness of breath, palpitations, orthopnea, PND, abdominal pain, nausea, vomiting, diarrhea, constipation, dysuria, hematuria, frequency, back pain, joint pain or swelling, easy bruising or bleeding, skin lesions or rashes. Physical Exam Physical Exam: General: Resting comfortably in his hospital bed. Does not appear ill or toxic. NAD. HEENT: Head is AT/NC buccal mucosa is moist and pink Neck: No JVD. Negative hepatojugular reflex Cardiac: RRR without M/G/R Lungs: CTA without W/R/R Abdomen: Normoactive X4. Soft and nontender in all quadrants. Extremities: No peripheral clubbing cyanosis or edema Neuro: A&O X4 cranial nerves II through XII are grossly intact no focal neuro deficits Skin: No obvious skin lesions or rashes Psych: Appropriate affect pleasant and cooperative Results & Data Results & Data ([facility]) Vital Signs (Past 12 Hours) Vital Signs Temp Pulse Resp BP Pulse Ox 06/21/21 21:52 36.5 C 92 H 16 127/65 96 Laboratory Results no lab data today PG Care Time/CCT Total # of Minutes Spent Total Time Spent with Patient: Total time spent is greater than 50% in coordination of care (as documented) at patient's floor/unit and/or counseling patient: Coding Level of Care Code 02456 Subseq Hosp Care Lvl 1 Diagnoses Abnormal urinalysis R82.90 Failure to thrive Pressure ulcer L89.301 Laterality: unspecified laterality Pressure injury location: buttock Pressure injury stage: stage 1 Weakness R53.1 Adrenal insufficiency E27.40 Hypokalemia E87.6 Hypotension I95.9 (1) Pressure ulcer Laterality: unspecified laterality Pressure injury location: buttock Pressure injury stage: stage 1 Qualified Code(s): L89.301 - Pressure ulcer of unspecified buttock, stage 1
[2021-06-22] MEDS: MIDODRINE HCL 2.5 MG TAB PO SCH ×3 (08:36→16:17)
[2021-06-22] MEDS: ASCORBIC ACID 500 MG TAB PO SCH ×2 (08:36→20:14)
[2021-06-22] MEDS: CLOPIDOGREL BISULFATE 75 MG TAB PO SCH (08:36)
[2021-06-22] MEDS: buPROPion HCl 100 MG TABLET PO SCH (08:36)
[2021-06-22] MEDS: HYDROCORTISONE 10 MG TAB PO SCH ×2 (08:36→16:17)
[2021-06-22] MEDS: FOLIC ACID 1 MG TAB PO SCH (08:36)
[2021-06-22] MEDS: ENOXAPARIN INJ 40 MG/0.4 ML SYR SQ SCH (08:36)
[2021-06-22] MEDS: CHOLECALCIFEROL 1,000 UNITS 25 MCG TAB PO SCH (08:36)
[2021-06-22] MEDS: LANSOPRAZOLE 30 MG SOLTAB PO SCH (08:36)
[2021-06-22] MEDS: VALPROIC ACID SOLN 250 MG/5 ML UDC PO SCH (08:37)
[2021-06-22] MEDS: KETOCONAZOLE 2% CR 15 GM TUBE EXT SCH (12:56)
[2021-06-22] MEDS: FLUTICASONE FUROATE 100MCG 14 PUFFS/INHALER INH SCH (16:17)
[2021-06-22] MEDS: UMECLIDINIUM/VILANTEROL 62.5/25MCG 7 PUFFS/INHALER INH SCH (16:18)
[2021-06-22] MEDS: VALPROIC ACID SOLN 500 MG/10 ML UDC PO SCH (20:15)
[2021-06-22] MEDS: QUEtiapine FUMARATE 25 MG TABLET PO SCH (20:15)
[2021-06-23 07:25] VITALS: PULSE 71; TEMP 97.5; O2SAT 98
[2021-06-23 07:35] LABS: Creatinine Clr Calc Pharmacy 124.1 ml/min; Est GFR (African American) 125.9 ml/min; Est GFR (Non-African American) 108.6 ml/min
[2021-06-23] MEDS: ASCORBIC ACID 500 MG TAB PO SCH (09:08)
[2021-06-23] MEDS: buPROPion HCl 100 MG TABLET PO SCH (09:09)
[2021-06-23] MEDS: CHOLECALCIFEROL 1,000 UNITS 25 MCG TAB PO SCH (09:09)
[2021-06-23] MEDS: CLOPIDOGREL BISULFATE 75 MG TAB PO SCH (09:10)
[2021-06-23] MEDS: FOLIC ACID 1 MG TAB PO SCH (09:10)
[2021-06-23] MEDS: LANSOPRAZOLE 30 MG SOLTAB PO SCH (09:11)
[2021-06-23] MEDS: HYDROCORTISONE 10 MG TAB PO SCH ×2 (09:12→15:11)
[2021-06-23] MEDS: MIDODRINE HCL 2.5 MG TAB PO SCH ×2 (09:14→12:10)
[2021-06-23] MEDS: ENOXAPARIN INJ 40 MG/0.4 ML SYR SQ SCH (09:15)
[2021-06-23] MEDS: VALPROIC ACID SOLN 250 MG/5 ML UDC PO SCH (09:15)
[2021-06-23] MEDS: KETOCONAZOLE 2% CR 15 GM TUBE EXT SCH (09:16)
[2021-06-23 12:09] VITALS: BP 106/67
--- NOTE | 2021-06-23 15:39 | Discharge Summary ---
Date of Service June 23, 2021 Admission HPI Per Admitting Provider This is a 66-year-old male who was recently discharged from [facility] on 06/08/2021 after a very lengthy hospital stay. During a forementioned admission the patient was initially admitted for altered mental status. He was found to have adrenal insufficiency and was treated with steroid supplementation. Patient was also noted to have a pleural effusion. There is no definite pneumonia however patient did receive a course of doxycycline. Review of records showed that this pleural effusion was persistent since March 2021. After pulmonary consultation was obtained was felt that thoracentesis was not indicated. Patient was also noted to be anemic during this admission and he had fecal occult blood tested which was negative on 2 occasions. He did undergo an EGD by gastroenterology that showed gastritis. His anemia was treated with iron supplementation. Patient's hospitalization was prolonged as it was felt the patient would benefit from placement however this was difficult to obtain and after his lengthy hospitalization it was felt that it was reasonable to give patient a chance to return to his home environment. The patient represented to [facility] today via EMS. The patient notes that he was attempting to transfer from his wheelchair when he fell over and therefore summoned EMS. Patient was noted to be hypotensive so he presented to [facility] emergency department. In the emergency department the patient had labs and imaging which I independently reviewed. The chest x-ray showed the patient had a persistent left pleural effusion with no definite pneumonia. When compared to prior chest x-rays there is actually some improvement noted of the left pleural effusion. An EKG showed sinus tachycardia changes indicative of acute ischemia. The patient was tested for influenza, RSV, and COVID-19 all of which were negative. Urinalysis was not indicative of urinary tract infection. Cardiac enzymes were not elevated. Chemistry profile showed sodium, potassium, BUN, and creatinine were all within normal range. CBC showed white blood cell count and platelet count were normal. His hemoglobin and hematocrit 10.4 and 32.5 and these values were s table when compared to values obtained over the past 2 months. I questioned patient on a litany of symptoms and he says that he did fall out of his chair as noted above. He does not believe he struck his head and to the best of his knowledge he did not lose consciousness. He denies any visual changes. He denies any tinnitus or vertigo. Patient says that he does not have a sore throat or neck pain. He specifically [place] any chest pain. He notes with activity he does get short of breath at times but feels this is stable and has not noted worsening shortness of breath. He denies any fevers, shakes, chills. He denies any nausea, vomiting, or abdominal pain. He denies any diarrhea. Patient feels as though his appetite has been stable over the past several days and has not decreased. He denies any difficulty urinating or dysuria. Patient denies any dysarthria, dysphagia, or inability to move his arms or legs. The treating emergency room physician has thus far treated the patient with some intravenous fluids and hydrocortisone due to his hypotension. He did discussed with case management as it was felt that the patient was not safe to return home. Case management in the emergency department has been unsuccessful at finding an appropriate facility to place the patient in and therefore admission to the hospital service has been requested. At the time of my interview the patient was resting comfortably in bed. He was in no distress. He was also not complaining of any pain. Principal Diagnosis 1. Overall deconditioned state/debility 2. Failure to thrive 3. Abnormal urinalysissuspect asymptomatic bacteriuria 4. Hypokalemiareplaced and resolved 5. Orthostasisimproved with midodrine Discharge Exam General: Resting comfortably in his hospital bed. Does not appear ill or toxic. NAD. HEENT: Head is AT/NC buccal mucosa is moist and pink Neck: No JVD. Negative hepatojugular reflex Cardiac: RRR without M/G/R Lungs: CTA without W/R/R Abdomen: Normoactive X4. Soft and nontender in all quadrants. Extremities: No peripheral clubbing cyanosis or edema Neuro: A&O X4 cranial nerves II through XII are grossly intact no focal neuro deficits Skin: No obvious skin lesions or rashes Psych: Appropriate affect pleasant and cooperative Discharge Data Allergies Allergy/AdvReac Type Severity Reaction Status Date / Time ciprofloxacin Allergy Intermediate RASH Verified 06/16/21 11:46 vancomycin Allergy Intermediate RASH Verified 06/16/21 11:46 sulfamethoxazole Allergy Unknown Unknown Verified 06/16/21 11:46 [From Bactrim] trimethoprim [From Bactrim] Allergy Unknown Unknown Verified 06/16/21 11:46 Consultations 06/16/21 13:34 ED Decision to Admit Stat Hospital Course (1) Abnormal urinalysis: * Initially started on doxycycline and transitioned to IV daptomycin * Urine culture showing coag negative staph species but patient without urinary complaints. Denied dysuria, hematuria, frequency, retention. Patient afebrile and white blood cell count has been normal * Likely asymptomatic bacteriuria but at any rate, has completed 3 days of antibiotics which is sufficient for uncomplicated UTI. * abx stopped 06/20 * in addition, pt noted to have coag neg staph species in 1/4 tubes of his blood culture. NOT LUGDENESIS. Was on IV dapto but suspect this is likely contaminated specimen. Dapto stopped on 06/20 as rest of his BC are showing NG. No fever and normal WBC (2) Failure to thrive: Manifested by frequent falls, unsure if he is taking medications correctly, deconditioned state * Hospitalized 03/17 through 06/08. Here and medically stable for weeks awaiting placement. Finally decided to go home with additional support from family but since being home, unable to care for self as he thought he would * Readmitted with plans to proceed with safe discharge plan which will require SNF placement at his time * CM has been involved * to go to [facility] today (3) Pressure ulcer: Stage 1-2 - Appreciate assistance in managing w/ wound care nursing team -Discharge instructions per wound nurse include To right medial buttocks: Cleanse with saline. Cover with Optifoam. Change every other day To right lateral heel: Waffle boot. No dressing needed at this time. (4) Weakness: - PT/OT - Pt will require SNF placement as he failed a trial at home (5) Adrenal insufficiency: - Stress dose steroids completed and transitioned to oral Hydrocortisone regimen 06/18 - BP acceptable (6) Hypokalemia: - Replaced/resolved (7) Hypotension: Patient started on midodrine during his last hospitalization but not resumed with readmission BP 93/59 on 06/20. Patient denied dizziness/lightheadedness but hasn't been out of bed. Did have orthostasis during last hospital stay RESUMED MIDODRINE -- BP currently improved 127/65 Lovenox for DVT ppx while in nouse Code status: full [facility]po: [facility] Total Time Total Time Spent Total Time Spent (In Minutes): 35 min including time spent with patient, D/W CM and attending provider, preparation of documentation/coordination of care. Discharge Plan Discharge Items Patient Disposition: Transfer Senior Living Fac Reason For Visit: FALL, FAILURE TO THIRVE, FUNCTIONAL PARAPELEGIA Discharge Diagnosis: 1. Debility/Deconditioned state 2. Orthostasis- improved with Midodrine 3. Lung CA with chronic pleural effusion- asymptomatic 4. Functional Paraplegia Activity: Resume your previous activity Activity Comment: consult PT/OT Non-emergency contact: Primary Care Provider Call non-emergency contact if: you have any medication questions Follow-up/Referrals: John Johnson CRNP [Primary Care Provider] - Diet: Regular Addtl Attending Provider Instructions: - take medications as outlined - note addition of Midodrine to help with Orthostasis. BP occasionally runs low (90/60's) but this is improved as was 70-80/40-50 and currently without symptoms - recommend aggressive PT/OT as goal is for eventual discharge back to home - chronic left sided pleural effusion (drained in remote past but reaccumulated. Likely related to lung CA). Would not drain unless symptoms develop (SOB, hypoxemia) - follow up with House Physician within 24-48 hours - return to nearest ED as needed for Emergency wound care as per wound nurse: To right medial buttocks: Cleanse with saline. Cover with Optifoam. Change every other day To right lateral heel: Waffle boot. No dressing needed at this time. Pending Studies at Discharge: No Stand-Alone Forms: [facility] Skilled Items Patient informed of condition?: Yes DNR: No Discharge Level of Care: Acute rehab Communicable Disease: No Discharge Prognosis: Stable Lines: None Urinary Catheter: No Medications and DC Order Prescriptions: New midodrine 5 mg tablet 5 mg PO TID Qty: 90 RF: 0 Continued acetaminophen 500 mg capsule 500 mg PO Q6H PRN (Reason: fever or pain) RF: 0 ascorbic acid (vitamin C) 500 mg capsule 500 mg PO BID RF: 0 cholecalciferol (vitamin D3) 1,000 unit capsule 1,000 units PO DAILY RF: 0 ketoconazole 2 % cream 1 applic TOP DAILY Qty: 90 RF: 3 bupropion HCl 100 mg tablet 100 mg PO DAILY Qty: 90 RF: 1 Hold Instructions: RX BY PSYCHIATRY Trelegy Ellipta 100-62.5-25 mcg blister with device 1 inh inhalation Q24H Qty: 60 RF: 5 miscellaneous medical supply Misc 1 ea miscellaneous DAILY Qty: 1 RF: 0 (DME) Bed Side Commode Misc See Rx Instructions .Route Qty: 1 RF: 0 miscellaneous medical supply Misc 1 ea miscellaneous DAILY Qty: 1 RF: 0 (DME) Hospital Bed Misc See Rx Instructions .Route Qty: 1 RF: 0 docusate sodium 100 mg capsule 100 mg PO DAILY PRN (Reason: Constipation) RF: 0 albuterol sulfate [Ventolin HFA] 90 mcg/actuation HFA aerosol inhaler 2 puffs INH QID PRN (Reason: shortness of breath or wheezing) Qty: 18 RF: 4 menthol-zinc oxide [Calmoseptine] 0.44-20.6 % ointment 1 applic topical QID PRN (Reason: skin irritation) Qty: 113 RF: 5 melatonin 5 mg Tablet 5 mg PO HS PRN (Reason: Sleep) RF: 0 atorvastatin 40 mg Tablet 40 mg PO QAM 30 Days Qty: 30 RF: 0 clopidogrel 75 mg Tablet 75 mg PO QAM 30 Days Qty: 30 RF: 0 valproic acid (as sodium salt) 500 mg/10 mL (10 mL) Solution 500 mg PO PM 30 Days Qty: 300 RF: 0 quetiapine 25 mg Tablet 25 mg PO HS 30 Days Qty: 30 RF: 0 valproic acid (as sodium salt) 250 mg/5 mL (5 mL) Solution 750 mg PO QAM 30 Days Qty: 450 RF: 0 lansoprazole [Prevacid SoluTab] 30 mg Tablet,Disintegrat, Delay Rel 30 mg PO DAILY 30 Days Qty: 30 RF: 0 hydrocortisone [Cortef] 10 mg Tablet 10 mg PO DAILY@1500 30 Days Qty: 30 RF: 0 hydrocortisone [Cortef] 10 mg Tablet 15 mg PO QAM 30 Days Qty: 45 RF: 0 folic acid 1 mg Tablet 1 mg PO QAM 30 Days Qty: 30 RF: 0 Discharge Orders: Discharge Order (Routine); Ordered 06/23/21 Ordered By: Sisi De La Rosa Admission Data Admit Date/Time: 06/16/21 13:49 Attending Provider: Raj Mcclain Admit Provider: Justin Pelayo Primary Care Provider: John Johnson Other Providers: [facility] ; [place] ; Raj Mcclain Other Interventions: Discharge Summary Assessment (RN) Last Done: 06/23/21 10:51 Supervising Physician Co-Signing Physician Notes I supervised Sisi De La Rosa PA-C on the care of this patient. I interviewed and examined the patient independently of her. The plan is as written in her note except for any following changes/exceptions: None Doing well today. He is ready for discharge. Coding Level of Care Code D/C DAY MANAGEMENT >30 MINS Diagnoses Abnormal urinalysis R82.90 Failure to thrive Pressure ulcer L89.301 Laterality: unspecified laterality Pressure injury location: buttock Pressure injury stage: stage 1 Weakness R53.1 Adrenal insufficiency E27.40 Hypokalemia E87.6 Hypotension I95.9
== END 2021-06-23 15:36 ==
LOC: ED 09:17 → INTOOBSV 13:49 → 3N 13:49 → SUATTDRO 13:49 → 3N 16:13
DX: K76.0 Fatty (change of) liver, not elsewhere classified; Z79.899 Other long term (current) drug therapy; E87.6 Hypokalemia; K21.9 Gastro-esophageal reflux disease without esophagitis; R62.7 Adult failure to thrive; E27.40 Unspecified adrenocortical insufficiency; J90 Pleural effusion, not elsewhere classified; L89.619 Pressure ulcer of right heel, unspecified stage; L89.301 Pressure ulcer of unspecified buttock, stage 1; Z95.828 Presence of other vascular implants and grafts; R82.90 Unspecified abnormal findings in urine; Z90.2 Acquired absence of lung [part of]; Z88.1 Allergy status to other antibiotic agents; Z88.2 Allergy status to sulfonamides; K44.9 Diaphragmatic hernia without obstruction or gangrene; Z87.891 Personal history of nicotine dependence; Z85.118 Personal history of other malignant neoplasm of bronchus and lung; N40.0 Benign prostatic hyperplasia without lower urinary tract symptoms; Z86.16 Personal history of COVID-19; I95.9 Hypotension, unspecified; J44.9 Chronic obstructive pulmonary disease, unspecified

== ENCOUNTER 2021-10-30 12:33 | Observation (INO) ==
[2021-10-30] MEDS ORDERED: SODIUM CHLORIDE 0.9% 1000ML 1,000 ML IV ONE (12:43)
--- NOTE | 2021-10-30 12:48 | Emergency Department Note ---
Impression & Plan Hypoxia, Pleural effusion, COPD (chronic obstructive pulmonary disease) ED Provider Note NAME: JAMARCUS PAYTON AGE: 66 SEX: F : 1955 ARRIVES VIA: Ambulance INFORMANT: Patient ED PROVIDER(S): Romulo Kruger DO CHIEF COMPLAINT: fall, AMS HPI: Patient is a 66-year-old female who presents to the ER for fall. He was transferring from the bed to the wheelchair and fell into the wheelchair. He denies any headache or neck pain. He was brought in by EMS and found to be altered. He denies any chest pain or shortness of breath. Patient was found to be hypoxic At 85% placed on room air. His mentation cleared up after that. Denies any belly pain, nausea, vomiting, or diarrhea. He notes nothing hurts from the fall. ROS: See above HPI for pertinent positives & negatives. A total of 10 systems reviewed and were otherwise negative. PAST MEDICAL HISTORY:See Below PAST SURGICAL HISTORY:See Below FAMILY HISTORY:See Below SOCIAL HISTORY:See Below HOME MEDICATIONS:See Below ALLERGIES:See Below VITALS:See Below PHYSICAL EXAMINATION: GENERAL: Sitting up in bed, alert, well appearing, well nourished, no distress, non-toxic EYE EXAM: normal conjunctiva. PERRL and EOM's grossly intact. OROPHARYNX: no exudate, no erythema, lips, buccal mucosa, and tongue normal and mucous membranes are moist NECK: supple, no nuchal rigidity, no adenopathy, non-tender LUNGS: Clear to auscultation. Normal chest wall mechanics HEART: no murmurs, S1 normal and S2 normal ABDOMEN: abdomen soft, non-tender, normo-active bowel sounds, no masses, no rebound or guarding. UPPER EXTREMITIES: upper extremities are grossly normal. LOWER EXTREMITIES: No pitting edema. NEURO EXAM: Normal sensorium, cranial nerves II-XII grossly intact, normal speech, no gross weakness of arms, no gross weakness of legs. MEDICAL DECISION MAKING: Patient is a 66-year-old male who presents the ER for above-stated complaint. Upon arrival he was found to be hypoxic with a pulse ox of 85%. He was also hypotensive with systolics in the 90s for EMS. IV was established blood work was obtained. Labs show leukopenia 4000. Mild anemia 10.7 slightly down from previous at 11. BMP with mild hyponatremia 133. VBG was unremarkable. LFTs bilirubin troponin and lipase were normal. UA was clean. Alcohol and COVID were negative. CT head was negative. Chest x-ray with a left pleural effusion with known cancer. Do favor this is the likely cause of his hypoxia. He remained on nasal cannula while in the ER. He was given dose of steroids. He was updated bedside. Held on antibiotics at this time. Patient was updated and discussed with the hospitalist for further evaluation. His confusion did improve significantly throughout the stay in the ER. Triage Nursing notes reviewed. Limited review of prior medical records performed Vital Signs: reviewed and remarkable for hypoxia Differential diagnosis: Differential diagnoses includes but is not limited to pneumonia, bronchitis, COPD/Asthma exacerbation, pneumothorax, pulmonary embolism, congestive heart failure, acute coronary syndrome ER treatment provided: See below Diagnostics interpreted by me: ECG: Sinus rhythm rate 88 Normal axis No PVCs Poor baseline inferior leads QTC 462 Cardiac Monitoring: An order was placed for continuous cardiac monitoring. The monitor shows a rate of 82 with sinus rhythm. Laboratory studies: As stated above and show below. Imaging studies: CT head neg Consultation(s): D/w Dr. Cole for further evaluation and admission Procedures: none Critical Care: None Past Med/Surg History Medical History Adrenal insufficiency Ataxic gait Bacteremia due to methicillin resistant Staphylococcus aureus Benign prostate hyperplasia Bilateral carotid artery occlusion Bipolar disorder 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 Esophageal stenosis GERD (gastroesophageal reflux disease) Hepatic steatosis Hiatal hernia History of COVID-19 07/2020 ([facility]) HOSPITALIZED AT [facility] History of lung cancer (01/2016) 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 HTN (hypertension) Hypertension Medical marijuana use Memory loss Nausea & vomiting On anticoagulant therapy plavix daily On home oxygen therapy 3L n/c prn for SOB Osteomyelitis Peripheral arterial disease Peripheral neuropathy Recurrent left pleural effusion s/p thoracentesis August 2018 Restless leg syndrome Schizoaffective disorder Surgical History H/O foot surgery LEFT HEEL REMOVAL FROM PRESSURE ULCER History of bronchoscopy (01/2016) History of colonoscopy History of esophagogastroduodenoscopy (EGD) last was with dialation 04/27/21 @ [facility] History of herniorrhaphy History of lobectomy of lung LOWER LEFT LUNG S/P peripheral artery angioplasty with stent placement (06/2016) LLE RIFFLER TENDER, 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 S/P thoracentesis (05/2019) L pleural effusion Status post femorofemoral bypass surgery (06/2016) [place] teeth removed Family History Brother Myocardial infarction Father Myocardial infarction Other Cancer Family history non-contributory Lung disease No family history of adverse response to anesthesia Denies family history of Tuberculosis Ovarian cancer Prostate cancer Diabetes Heart disease Allergies Breast cancer Emphysema, unspecified Lung cancer Colorectal cancer Asthma Social History (System 10/30/21 @ 13:22 by Lisa Mcclain) Smoking Status: Former smoker Tobacco Type: Cigarettes Age Started Using Tobacco: 10; packs per day: 0.5; Years Smoked: 30; Cigarettes Per Day: 6-8 DAILY; Second Hand Exposure: No; Hx Alcohol Use: No Hx Substance Use: Yes (medical marijuana) Prescribed Medications: Marijuana Last Used Substance: Just Prior to Arrival Last Used Substance Other:: 3 Preferred Language: Kosovan Communication Ability: Effective Visual Impairment: No Limitations Hearing Ability: Normal Real Estate 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 Required: No Beliefs That Will Affect Care: None marital status: single Current Living Situation: Alone current occupational status: disabled How many Children do You have: 2 Feels Safe at Home: Yes Childhood Exposure to Second-Hand Smoke: Yes Diet Comment: regular caffeine: Yes (coffee 1 pot a day) during the past year weight has: remained stable Dental Care, Regularly: No Physical Activity Frequency: Does not Exercise Seatbelt Use: always Sunscreen Use: No Assistive Devices: Denture - Upper, Denture - Lower, Glasses and Wheelchair Allergies Allergies Allergy/AdvReac Type Severity Reaction Status Date / Time ciprofloxacin Allergy Mild RASH Verified 10/30/21 15:29 vancomycin Allergy Mild RASH Verified 10/30/21 15:29 sulfamethoxazole Allergy Unknown Unknown Verified 10/30/21 15:29 [From Bactrim] trimethoprim [From Bactrim] Allergy Unknown Unknown Verified 10/30/21 15:29 Home Meds Home Medications Medication Instructions Recorded Confirmed melatonin 5 mg tablet 5 mg PO HS 08/13/21 10/30/21 aspirin 81 mg chewable tablet 81 mg PO QAM 10/01/21 10/30/21 bupropion HCl 100 mg tablet 100 mg PO QAM 10/01/21 10/30/21 dutasteride 0.5 mg capsule 0.5 mg PO QAM 10/01/21 10/30/21 (Avodart) fluticasone fur. 100 mcg-umeclid 1 inh INHALATION QAM 10/01/21 10/30/21 62.5 mcg-vilant 25 mcg inhalat.powder (Trelegy Ellipta) folic acid 1 mg tablet 1,000 mcg PO QAM 10/01/21 10/30/21 lansoprazole 30 mg capsule,delayed 30 mg PO QAM 10/01/21 10/30/21 release (Prevacid) omeprazole magnesium 20 mg 20 mg PO QAM 10/01/21 10/30/21 tablet,delayed release (Prilosec OTC) quetiapine 25 mg tablet 25 mg PO QAM 10/01/21 10/30/21 tamsulosin 0.4 mg capsule 0.4 mg PO QAM 10/01/21 10/30/21 gabapentin 300 mg capsule 300 mg PO TID 10/22/21 10/30/21 Previous Rx's Medication Instructions Recorded miscellaneous medical supply #1 ea 08/07/21 albuterol sulfate 90 mcg/actuation 2 puff INH QID PRN #18 gm 08/13/21 aerosol inhaler (Ventolin HFA) atorvastatin 40 mg tablet 40 mg PO QAM 30 Days #90 tab 09/04/21 clopidogrel 75 mg tablet 75 mg PO QAM 30 Days #90 tab 09/04/21 hydrocortisone 10 mg tablet 15 mg PO QAM 90 Days #135 tab 09/18/21 (Cortef) midodrine 5 mg tablet 5 mg PO TID #90 tab 10/28/21 Results & Data (ED) Vital Signs Vital Signs - 24 hr 10/30/21 12:26 10/30/21 12:42 10/30/21 12:45 Temperature 36.1 C L Temperature Source Axillary Pulse Rate 89 88 Pulse Rate from SpO2 Sensor 87 Respiratory Rate 19 21 Respiratory Effort / Characteristics Non-Labored Spontaneous Respiratory Depth Normal Blood Pressure 136/87 136/87 Blood Pressure Mean 103 103 Blood Pressure Position Semi-fowlers Pulse Oximetry 98 100 100 Oxygen Delivery Method Nasal Cannula Nasal Cannula Oxygen Flow Rate 2 2 Sepsis Recent Fever Within 48 Hours No Sepsis New/Unexplained Change in Mental Status Yes Sepsis Action Taken by Nursing No Action Required 10/30/21 13:00 10/30/21 13:30 10/30/21 14:44 Temperature Temperature Source Pulse Rate 89 89 88 Pulse Rate from SpO2 Sensor 90 89 89 Respiratory Rate 20 15 23 Respiratory Effort / Characteristics Respiratory Depth Blood Pressure 112/71 Blood Pressure Mean 84 Blood Pressure Position Pulse Oximetry 91 94 100 Oxygen Delivery Method Oxygen Flow Rate Sepsis Recent Fever Within 48 Hours Sepsis New/Unexplained Change in Mental Status Sepsis Action Taken by Nursing 10/30/21 15:00 10/30/21 15:30 10/30/21 16:00 Temperature Temperature Source Pulse Rate 89 92 H 91 H Pulse Rate from SpO2 Sensor 89 92 H 90 Respiratory Rate 19 14 20 Respiratory Effort / Characteristics Respiratory Depth Blood Pressure 134/81 137/86 144/85 H Blood Pressure Mean 98 103 104 Blood Pressure Position Pulse Oximetry 99 100 100 Oxygen Delivery Method Oxygen Flow Rate Sepsis Recent Fever Within 48 Hours Sepsis New/Unexplained Change in Mental Status Sepsis Action Taken by Nursing 10/30/21 16:30 Temperature Temperature Source Pulse Rate 92 H Pulse Rate from SpO2 Sensor 92 H Respiratory Rate 20 Respiratory Effort / Characteristics Respiratory Depth Blood Pressure 151/85 H Blood Pressure Mean 107 Blood Pressure Position Pulse Oximetry 97 Oxygen Delivery Method Oxygen Flow Rate Sepsis Recent Fever Within 48 Hours Sepsis New/Unexplained Change in Mental Status Sepsis Action Taken by Nursing Laboratory Data Result diagrams: 10/30/21 12:50 10/30/21 12:50 Lab Results 10/30/21 10/30/21 10/30/21 Range/Units 12:50 12:50 12:50 WBC 4.00 L (4.8-10.8) K/uL RBC 4.21 (4.2-5.4) M/uL Hgb 10.7 L (12.0-16.0) g/dL Hct 32.9 L (37-47) % MCV 78.1 L (80-100) fL MCH 25.4 (25-34) pg MCHC 32.5 (32-36) g/dL RDW Std Deviation 46.9 H (36.4-46.3) fL RDW Coeff of Raul 16.4 H (11.5-14.5) % Plt Count 325 (130-400) K/uL MPV 9.6 (7.4-10.4) fL Immature Gran % (Auto) 0.0 % Neut % (Auto) 69.1 % Lymph % (Auto) 14.8 % [place] % (Auto) 10.3 % Eos % (Auto) 5.5 % Baso % (Auto) 0.3 % Neut # (Auto) 2.77 (1.4-6.5) K/uL Lymph # (Auto) 0.59 L (1.2-3.4) K/uL [place] # (Auto) 0.41 (0.11-0.59) K/uL Eos # (Auto) 0.22 (0-0.5) K/uL Baso # (Auto) 0.01 (0-0.2) K/uL Immature Gran # (Auto) 0.00 (0.00-0.02) K/uL VBG pH (7.36-7.41) VBG pCO2 (38-50) mmHg VBG pO2 mmHg VBG HCO3 mmol/L VBG O2 Saturation % VBG Base Excess mEq/L Barometric Pressure mm/Hg Sodium 133 L (136-145) mmol/L Potassium 3.6 (3.5-5.1) mmol/L Chloride 100 (98-107) mmol/L Carbon Dioxide 24 (21-32) mmol/L Anion Gap 9 (3-11) BUN 8 (6-23) mg/dl Creatinine 0.92 (0.6-1.4) mg/dl Est Cr Clr Drug Dosing 54.4 ml/min Est GFR ( Amer) 99.4 ml/min Est GFR (Non-Af Amer) 85.8 ml/min BUN/Creatinine Ratio 8.7 L (10-20) Glucose 92 (70-99(Fasting)) mg/dl Calcium 9.6 (8.5-10.1) mg/dl Total Bilirubin 0.6 (0.2-1.0) mg/dl AST 17 (13-39) U/L ALT 10 (7-52) U/L Alkaline Phosphatase 87 (34-104) U/L Troponin I High Sens 7.4 (0-20) pg/ml Total Protein 7.7 (6.0-8.3) gm/dl Albumin 3.7 (3.4-5.0) gm/dl Globulin 4.0 (2.5-4.0) gm/dl Albumin/Globulin Ratio 0.9 (0.9-2) Lipase 25 (11-82) U/L Urine Color Urine Appearance (Clear) Urine pH (4.5-7.5) Ur Specific [place] (1.000-1.030) Urine Protein (Negative) Urine Glucose (UA) (Negative) Urine Ketones (Negative) Urine Blood (Negative) Urine Nitrite (Negative) Urine Bilirubin (Negative) Urine Urobilinogen (Negative) Ur Leukocyte Esterase (Negative) Ethyl Alcohol mg/dL < 10.0 (<10.0) mg/dl SARS-CoV-2, RNA, NAAT (NEGATIVE) 10/30/21 10/30/21 10/30/21 Range/Units 12:50 12:52 14:52 WBC (4.8-10.8) K/uL RBC (4.2-5.4) M/uL Hgb (12.0-16.0) g/dL Hct (37-47) % MCV (80-100) fL MCH (25-34) pg MCHC (32-36) g/dL RDW Std Deviation (36.4-46.3) fL RDW Coeff of Arul (11.5-14.5) % Plt Count (130-400) K/uL MPV (7.4-10.4) fL Immature Gran % (Auto) % Neut % (Auto) % Lymph % (Auto) % [place] % (Auto) % Eos % (Auto) % Baso % (Auto) % Neut # (Auto) (1.4-6.5) K/uL Lymph # (Auto) (1.2-3.4) K/uL [place] # (Auto) (0.11-0.59) K/uL Eos # (Auto) (0-0.5) K/uL Baso # (Auto) (0-0.2) K/uL Immature Gran # (Auto) (0.00-0.02) K/uL VBG pH 7.36 (7.36-7.41) VBG pCO2 47 (38-50) mmHg VBG pO2 17 mmHg VBG HCO3 26 mmol/L VBG O2 Saturation < 60.0 % VBG Base Excess 0 mEq/L Barometric Pressure 726.7 mm/Hg Sodium (136-145) mmol/L Potassium (3.5-5.1) mmol/L Chloride (98-107) mmol/L Carbon Dioxide (21-32) mmol/L Anion Gap (3-11) BUN (6-23) mg/dl Creatinine (0.6-1.4) mg/dl Est Cr Clr Drug Dosing ml/min Est GFR ( Amer) ml/min Est GFR (Non-Af Amer) ml/min BUN/Creatinine Ratio (10-20) Glucose (70-99(Fasting)) mg/dl Calcium (8.5-10.1) mg/dl Total Bilirubin (0.2-1.0) mg/dl AST (13-39) U/L ALT (7-52) U/L Alkaline Phosphatase (34-104) U/L Troponin I High Sens (0-20) pg/ml Total Protein (6.0-8.3) gm/dl Albumin (3.4-5.0) gm/dl Globulin (2.5-4.0) gm/dl Albumin/Globulin Ratio (0.9-2) Lipase (11-82) U/L Urine Color Yellow Urine Appearance Clear (Clear) Urine pH 6.0 (4.5-7.5) Ur Specific [place] 1.006 (1.000-1.030) Urine Protein Negative (Negative) Urine Glucose (UA) Negative (Negative) Urine Ketones Negative (Negative) Urine Blood Negative (Negative) Urine Nitrite Negative (Negative) Urine Bilirubin Negative (Negative) Urine Urobilinogen Negative (Negative) Ur Leukocyte Esterase Negative (Negative) Ethyl Alcohol mg/dL (<10.0) mg/dl SARS-CoV-2, RNA, NAAT NEGATIVE (NEGATIVE) Administered Medications Discontinued Medications Sodium Chloride (Nss 1000ml) 1,000 mls @ 999 mls/hr IV .Q1H1M ONE Stop: 10/30/21 13:43 Last Infusion: 10/30/21 13:43 Dose: 0 mls/hr Documented by: [id number] Admin: 10/30/21 12:45 Dose: 999 mls/hr Documented by: [id number] Methylprednisolone (Methylprednisolone 40 Mg/Ml Vial) 40 mg IV NOW STA Stop: 10/30/21 14:46 Last Admin: 10/30/21 14:52 Dose: 40 mg Documented by: [id number] Imaging Data Radiologist's Impression: Chest X-Ray 10/30/21 12:42 XR chest 1V portable CLINICAL HISTORY: fall. Evaluate cardiopulmonary status COMPARISON STUDY: No previous studies for comparison. TECHNIQUE: 1 view of the chest FINDINGS: Single frontal view of the chest demonstrates the cardiomediastinal silhouette to be within normal limits. There is evidence for a moderate-sized left pleural effusion with left lower lobe atelectasis/collapse. Patchy alveolar opacities are also seen involving the left mid to upper lung. No definite rib fractures are seen. The right hemithorax is clear. There is no right pleural effusion. There is no evidence for vascular congestion. There is no acute osseous pathology. IMPRESSION: 1. Small to moderate-sized left pleural effusion with left lower lobe atelectasis/collapse and alveolar opacity left midlung. Differential includes the presence of pneumonia versus underlying neoplastic process. The patient has no complaints which would be more concerning for neoplastic process. Follow-up CT of the chest with contrast is recommended. ACT 112: Negative or not required by law. Electronically signed by: Peewee Holland M.D. 10/30/2021 1:07 PM Pelvis X-Ray 10/30/21 12:42 XR pelvis 1-2V routine CLINICAL HISTORY: Fall. COMPARISON: None FINDINGS: Sacroiliac joints and symphysis pubis are intact. No acute fracture is identified within the pelvis or hips. Moderate vascular calcification is incidentally noted. Mild joint space narrowing and moderate osteophytosis of the left hip is present. IMPRESSION: No acute fracture within the pelvis or hips. ACT 112: Negative or not required by law. Electronically signed by: Delio Head M.D. 10/30/2021 1:[address] 10/30/21 12:43 CT OF THE HEAD WITHOUT CONTRAST CLINICAL HISTORY: Altered mental status. COMPARISON STUDY: Head CT March 17, 2021. MRI of the brain March 18, 2021. CT DOSE: 1768.17 mGy.cm TECHNIQUE: Helical axial images of the head were obtained without IV contrast. Automated exposure control was utilized for the study. A dose lowering technique was utilized adhering to the principles of ALARA. FINDINGS: No acute intracranial hemorrhage, midline shift or mass effect is pre sent. 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 There is an old infarct within left basal ganglia, also unchanged. Appearance of the brain is unchanged. The ventricular system is unremarkable. The basal cisterns are patent. No extra- axial collections are present. There are no findings to suggest acute dural sinus thrombosis or acute territorial infarct. No significant calvarial abnormalities are present. Visualized portions of the sinuses and mastoid air cells are clear. IMPRESSION: No acute intracranial findings. No change in appearance of the brain. ACT 112: Negative or not required by law. Electronically signed by: Delio Head M.D. 10/30/2021 2:23 PM Discharge Plan Visit Data Chief Complaint: Fall ED Provider: Romulo Kruegr Discharge Problem: Hypoxia, Pleural effusion, COPD (chronic obstructive pulmonary disease) Forms Stand Alone Forms: [facility] [employer] Prescriptions Prescriptions: No Action (DME) miscellaneous medical supply Misc See Dose Instructions .ROUTE .MEDSUPPLY Qty: 1 RF: 0 albuterol sulfate [Ventolin HFA] 90 mcg/actuation HFA aerosol inhaler 2 puff INH QID PRN (Reason: shortness of breath or wheezing) Qty: 18 RF: 4 atorvastatin 40 mg tablet 40 mg PO QAM 30 Days Qty: 90 RF: 1 clopidogrel 75 mg tablet 75 mg PO QAM 30 Days Qty: 90 RF: 1 hydrocortisone [Cortef] 10 mg tablet 15 mg PO QAM 90 Days Qty: 135 RF: 1 midodrine 5 mg tablet 5 mg PO TID Qty: 90 RF: 0 melatonin 5 mg tablet 5 mg PO HS RF: 0 gabapentin 300 mg capsule 300 mg PO TID RF: 0 quetiapine 25 mg tablet 25 mg PO QAM RF: 0 tamsulosin 0.4 mg capsule 0.4 mg PO QAM RF: 0 aspirin 81 mg tablet,chewable 81 mg PO QAM RF: 0 dutasteride [Avodart] 0.5 mg capsule 0.5 mg PO QAM RF: 0 omeprazole magnesium [Prilosec OTC] 20 mg tablet,delayed release (DR/EC) 20 mg PO QAM RF: 0 bupropion HCl 100 mg tablet 100 mg PO QAM RF: 0 lansoprazole [Prevacid] 30 mg capsule,delayed release(DR/EC) 30 mg PO QAM RF: 0 folic acid 1 mg tablet 1,000 mcg PO QAM RF: 0 Trelegy Ellipta 100-62.5-25 mcg blister with device 1 inh inhalation QAM RF: 0 Referrals Referrals: PCP,NO [Physician] - Discharge Problem: COPD (chronic obstructive pulmonary disease) Qualifiers: COPD type: unspecified COPD Qualified Code(s): J44.9 - Chronic obstructive pulmonary disease, unspecified
--- NOTE | 2021-10-30 13:09 | XRay Report ---
XR chest 1V portable CLINICAL HISTORY: fall. Evaluate cardiopulmonary status COMPARISON STUDY: No previous studies for comparison. TECHNIQUE: 1 view of the chest FINDINGS: Single frontal view of the chest demonstrates the cardiomediastinal silhouette to be within normal li mits. There is evidence for a moderate-sized left pleural effusion with left lower lobe atelectasis/c ollapse. Patchy alveolar opacities are also seen involving the left mid to upper lung. No definite ri b fractures are seen. The right hemithorax is clear. There is no right pleural effusion. There is no evidence for vascular congestion. There is no acute osseous pathology. IMPRESSION: 1. Small to moderate-sized left pleural effusion with left lower lobe atelectasis/collapse and alveol ar opacity left midlung. Differential includes the presence of pneumonia versus underlying neoplastic process. The patient has no complaints which would be more concerning for neoplastic process. Follow -up CT of the chest with contrast is recommended. ACT 112: Negative or not required by law. Electronically signed by: Peewee Holland M.D. 10/30/2021 1:07 PM
[2021-10-30 13:10] LABS: Basophils # (auto) 0.01 K/uL (0-0.2); Basophils % (auto) 0.3 %; Eosinophils # (auto) 0.22 K/uL (0-0.5); Eosinophils % (auto) 5.5 %; Lymphocytes # (auto) 0.59 K/uL (1.2-3.4); Lymphocytes % (auto) 14.8 %; Mean Corpuscular Hemoglobin 25.4 pg (25-34); Mean Corpuscular Hgb Conc 32.5 g/dL (32-36); Mean Corpuscular Volume 78.1 fL (80-100); Mean Platelet Volume 9.6 fL (7.4-10.4); Monocytes # (auto) 0.41 K/uL (0.11-0.59); Monocytes % (auto) 10.3 %; Neutrophils # (auto) 2.77 K/uL (1.4-6.5); Neutrophils % (auto) 69.1 %; Platelet Count 325 K/uL (130-400); RDW Coefficient of Variation 16.4 % (11.5-14.5); RDW Standard Deviation 46.9 fL (36.4-46.3)
--- NOTE | 2021-10-30 13:13 | XRay Report ---
XR pelvis 1-2V routine CLINICAL HISTORY: Fall. COMPARISON: None FINDINGS: Sacroiliac joints and symphysis pubis are intact. No acute fracture is identified within t he pelvis or hips. Moderate vascular calcification is incidentally noted. Mild joint space narrowing and moderate osteophytosis of the left hip is present. IMPRESSION: No acute fracture within the pelvis or hips. ACT 112: Negative or not required by law. Electronically signed by: Delio Head M.D. 10/30/2021 1:12 PM
[2021-10-30 13:38] LABS: Troponin I High Sensitivity 7.4 pg/ml (0-20)
[2021-10-30 13:42] LABS: Base Excess VBG 0 mEq/L; HCO3 VBG 26 mmol/L; PCO2 VBG 47 mmHg (38-50); PO2 VBG 17 mmHg; pH VBG 7.36 (7.36-7.41)
[2021-10-30 13:44] LABS: Oxygen Saturation VBG < 60.0 %
[2021-10-30 13:46] LABS: Albumin Globulin Ratio 0.9 (0.9-2); Albumin Level 3.7 gm/dl (3.4-5.0); BUN Creatinine Ratio 8.7 (10-20); Bilirubin,Total 0.6 mg/dl (0.2-1.0); Calcium 9.6 mg/dl (8.5-10.1); Creatinine Clr Calc Pharmacy 54.4 ml/min; Est GFR (African American) 99.4 ml/min; Est GFR (Non-African American) 85.8 ml/min; Potassium 3.6 mmol/L (3.5-5.1); Total Protein 7.7 gm/dl (6.0-8.3)
[2021-10-30 13:57] LABS: Appearance Urine Clear (Clear); Bilirubin Urine Negative (Negative); Blood Urine Negative (Negative); Color Urine Yellow; Glucose Urine UA Negative (Negative); Ketones Urine Negative (Negative); Leukocyte Esterase Urine Negative (Negative); Nitrite Urine Negative (Negative); Protein Urine Negative (Negative); Specific Gravity Urine 1.006 (1.000-1.030); Urobilinogen Urine Negative (Negative)
--- NOTE | 2021-10-30 14:25 | CT Scan Report ---
CT OF THE HEAD WITHOUT CONTRAST CLINICAL HISTORY: Altered mental status. COMPARISON STUDY: Head CT March 17, 2021. MRI of the brain March 18, 2021. CT DOSE: 1768.17 mGy.cm TECHNIQUE: Helical axial images of the head were obtained without IV contrast. Automated exposure con trol was utilized for the study. A dose lowering technique was utilized adhering to the principles o f ALARA. FINDINGS: No acute intracranial hemorrhage, midline shift or mass effect is present. 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 There is an old infarct within left basal ganglia, also unchanged. Appe arance of the brain is unchanged. The ventricular system is unremarkable. The basal cisterns are shell nt. No extra-axial collections are present. There are no findings to suggest acute dural sinus thromb osis or acute territorial infarct. No significant calvarial abnormalities are present. Visualized por tions of the sinuses and mastoid air cells are clear. IMPRESSION: No acute intracranial findings. No change in appearance of the brain. ACT 112: Negative or not required by law. Electronically signed by: Delio Head M.D. 10/30/2021 2:23 PM
--- NOTE | 2021-10-30 15:02 | History & Physical Report ---
Date of Service October 30, 2021 Assessment & Plan (1) Fall: Plan: Appears from chronic ambulatory dysfunction from transfer. Fortunately no apparent injuries from the fall. PT/OT assessment here to make sure he is at baseline. (2) Hypoxia: Plan: Suspect just from atelectasis following fall with known chronic pleural effusion. Defer pleural effusion management to his outpatient [facility] specialist unless O2 sats do not improve. Wean O2 as able > 90%. (3) Esophageal stricture: Plan: Severe ongoing dysphagia. Will place on minced and moist diet for now but may have to scale down to liquids if unable to tolerate this. Previously diagnosed on EGD in April 2021. Severe on repeat EGD on October 27 however he was taking clopidogrel therefore this couldn't be dilated. Hold clopidogrel. Consult gastroenterology for dilatation on this admission given severe protein-calorie malnutrition. (4) Left sided abdominal pain: Plan: No acute pathology seen on CT A/P on October 21. Gastroenterology to consider colonoscopy at same time as his EGD. (5) Adrenal insufficiency: Plan: Mildly hypotensive on arrival to the ER. No specific etiology suspected to exacerbate this therefore will place back on his usual hydrocortisone. Doubtful nausea due to adrenal insufficiency given alternative explanation with known esophageal stenosis. (6) Peripheral neuropathy: Plan: Continue gabapentin 300 mg PO TID (7) COPD (chronic obstructive pulmonary disease): Plan: Continue Trelegy Ellipta or hospital formulary equivalent Do not suspect acute exacerbation and further steroids deferred. (8) Benign prostate hyperplasia: Plan: Continue tamsulosin 0.4mg PO daily (9) Hypotension: Plan: Prior history of orthostatic hypotension Continue midodrine 5mg TID Plan: VTE Prophylaxis - deferred given lack of acute pathology and need for EGD Diet - regular, minced and moist Disposition - admit to med/surg Admission and Anticipated Discharge Date Admission Date: October 30, 2021 History of Present Illness Chief Complaint: Fall Primary Care Provider: PETE Chawla Roberth Luther is a 66 year old male who presents to the ER after a fall this morning while trying to get from his bed to his wheelchair. He denies any pain following the fall but his carers were unable to get him back into his wheelchair therefore called EMS. Due to mild hypoxia with O2 sats 85% and some confusion he was brought to the emergency room. Reportedly his confusion appeared to improve following improvement of O2 sats with oxygen. She patient denies any shortness of breath, chest pain, cough, fever or chills. He also notes ongoing dysphagia. Recently underwent EGD on October 27 showing esophageal stenosis however he could not have it dilated at that time due to being on clopidogrel. In the ER he was noted to be slightly hypotensive with BP 96/61 therefore he was given solu-medrol 40mg IV for concern of adrenal insufficiency and COPD in addition to 1L NSS bolus and is now normotensive. O2 sats have improvement > 90% on 2LPM O2. He was referred to medicine for admission and ongoing management of hypoxia and pleural effusion. Allergies Allergy/AdvReac Type Severity Reaction Status Date / Time ciprofloxacin Allergy Mild RASH Verified 10/30/21 15:29 vancomycin Allergy Mild RASH Verified 10/30/21 15:29 sulfamethoxazole Allergy Unknown Unknown Verified 10/30/21 15:29 [From Bactrim] trimethoprim [From Bactrim] Allergy Unknown Unknown Verified 10/30/21 15:29 Home Medications Medication Instructions Recorded Confirmed Type miscellaneous medical supply #1 ea 08/07/21 10/14/21 Rx albuterol sulfate 90 mcg/actuation 2 puff INH QID PRN #18 gm 08/13/21 10/30/21 Rx aerosol inhaler (Ventolin HFA) melatonin 5 mg tablet 5 mg PO HS 08/13/21 10/30/21 History atorvastatin 40 mg tablet 40 mg PO QAM 30 Days #90 tab 09/04/21 10/30/21 Rx clopidogrel 75 mg tablet 75 mg PO QAM 30 Days #90 tab 09/04/21 10/30/21 Rx hydrocortisone 10 mg tablet 15 mg PO QAM 90 Days #135 tab 09/18/21 10/30/21 Rx (Cortef) aspirin 81 mg chewable tablet 81 mg PO QAM 10/01/21 10/30/21 History bupropion HCl 100 mg tablet 100 mg PO QAM 10/01/21 10/30/21 History dutasteride 0.5 mg capsule 0.5 mg PO QAM 10/01/21 10/30/21 History (Avodart) fluticasone fur. 100 mcg-umeclid 1 inh INHALATION QAM 10/01/21 10/30/21 History 62.5 mcg-vilant 25 mcg inhalat.powder (Trelegy Ellipta) folic acid 1 mg tablet 1,000 mcg PO QAM 10/01/21 10/30/21 History lansoprazole 30 mg capsule,delayed 30 mg PO QAM 10/01/21 10/30/21 History release (Prevacid) omeprazole magnesium 20 mg 20 mg PO QAM 10/01/21 10/30/21 History tablet,delayed release (Prilosec OTC) quetiapine 25 mg tablet 25 mg PO QAM 10/01/21 10/30/21 History tamsulosin 0.4 mg capsule 0.4 mg PO QAM 10/01/21 10/30/21 History gabapentin 300 mg capsule 300 mg PO TID 10/22/21 10/30/21 History midodrine 5 mg tablet 5 mg PO TID #90 tab 10/28/21 10/30/21 Rx Past Med/Surg History Medical History Adrenal insufficiency Ataxic gait Bacteremia due to methicillin resistant Staphylococcus aureus Benign prostate hyperplasia Bilateral carotid artery occlusion Bipolar disorder 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 Esophageal stenosis GERD (gastroesophageal reflux disease) Hepatic steatosis Hiatal hernia History of COVID-19 07/2020 ([facility]) HOSPITALIZED AT [facility] History of lung cancer (01/2016) 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 HTN (hypertension) Hypertension Medical marijuana use Memory loss Nausea & vomiting On anticoagulant therapy plavix daily On home oxygen therapy 3L n/c prn for SOB Osteomyelitis Peripheral arterial disease Peripheral neuropathy Recurrent left pleural effusion s/p thoracentesis August 2018 Restless leg syndrome Schizoaffective disorder Surgical History H/O foot surgery LEFT HEEL REMOVAL FROM PRESSURE ULCER History of bronchoscopy (01/2016) History of colonoscopy History of esophagogastroduodenoscopy (EGD) last was with dialation 04/27/21 @ [facility] History of herniorrhaphy History of lobectomy of lung LOWER LEFT LUNG S/P peripheral artery angioplasty with stent placement (06/2016) [employer]LE [employer], 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 S/P thoracentesis (05/2019) L pleural effusion Status post femorofemoral bypass surgery (06/2016) Silvis teeth removed Family History Brother Myocardial infarction Father Myocardial infarction Other Cancer Family history non-contributory Lung disease No family history of adverse response to anesthesia Denies family history of Tuberculosis Ovarian cancer Prostate cancer Diabetes Heart disease Allergies Breast cancer Emphysema, unspecified Lung cancer Colorectal cancer Asthma Social History (System 10/30/21 @ 13:22 by Lisa Mcclain) Smoking Status: Former smoker Tobacco Type: Cigarettes Age Started Using Tobacco: 10; packs per day: 0.5; Years Smoked: 30; Cigarettes Per Day: 6-8 DAILY; Second Hand Exposure: No; Hx Alcohol Use: No Hx Substance Use: Yes Prescribed Medications: Marijuana Last Used Substance: Days (ago) Last Used Substance Other:: 2 days ago Preferred Language: Sinhala Communication Ability: Effective Visual Impairment: No Limitations Hearing Ability: Normal Leak Detector Required: No Beliefs That Will Affect Care: None marital status: single Current Living Situation: Alone Current Living Situation Comment: [address] current occupational status: disabled How many Children do You have: 2 Other Information That Helps Us Care for You: No Feels Safe at Home: Yes Safety Concerns: Feels Safe At This Time Childhood Exposure to Second-Hand Smoke: Yes Diet Comment: regular caffeine: Yes (coffee 1 pot a day) during the past year weight has: remained stable Dental Care, Regularly: No Physical Activity Frequency: Does not Exercise Seatbelt Use: always Sunscreen Use: No Assistive Devices: Denture - Upper, Denture - Lower, Glasses, Oxygen - Continuous and Wheelchair Review of Systems Review of Systems: All systems reviewed & are unremarkable except as noted in HPI & below Physical Exam Constitutional: well developed and + frail appearing; + not well nourished and no acute distress Eyes: PERRL, conjunctivae normal, anicteric sclerae ENMT: external ear and nose normal, oropharynx normal Neck: trachea midline, no thyromegaly Respiratory: normal respiratory effort, lungs clear to auscultation Cardiovascular: RRR, no murmur, no edema Gastrointestinal (Abdomen): Inspection/Auscultation: normal bowel sounds Percussion/Palpation: + abdomen tender (left sided, no guarding or rebound) and abdomen soft; no guarding and abdomen not rigid Musculoskeletal: no cyanosis or clubbing, extremities motor strength 5/5 Skin: no rashes, warm and dry Psychiatric: A+Ox3, euthymic affect Results & Data Results & Data ([facility]) Vital Signs (Past 12 Hours) Vital Signs Temp Pulse Resp BP Pulse Ox 10/30/21 14:44 88 23 112/71 100 10/30/21 13:30 89 15 94 10/30/21 13:00 89 20 91 10/30/21 12:45 88 21 136/87 100 10/30/21 12:42 100 10/30/21 12:26 36.1 C L 89 19 136/87 98 Laboratory Results Abnormal lab results 10/30/21 10/30/21 Range/Units 12:50 12:50 WBC 4.00 L (4.8-10.8) K/uL Hgb 10.7 L (12.0-16.0) g/dL Hct 32.9 L (37-47) % MCV 78.1 L (80-100) fL RDW Std Deviation 46.9 H (36.4-46.3) fL RDW Coeff of Raul 16.4 H (11.5-14.5) % Lymph # (Auto) 0.59 L (1.2-3.4) K/uL Sodium 133 L (136-145) mmol/L BUN/Creatinine Ratio 8.7 L (10-20) Diagnostic Findings CT OF THE HEAD WITHOUT CONTRAST CLINICAL HISTORY: Altered mental status. COMPARISON STUDY: Head CT March 17, 2021. MRI of the brain March 18, 2021. CT DOSE: 1768.17 mGy.cm TECHNIQUE: Helical axial images of the head were obtained without IV contrast. Automated exposure control was utilized for the study. A dose lowering technique was utilized adhering to the principles of ALARA. FINDINGS: No acute intracranial hemorrhage, midline shift or mass effect is present. 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 There is an old infarct within left basal ganglia, also unchanged. Appearance of the brain is unchanged. The ventricular system is unremarkable. The basal cisterns are patent. No extra- axial collections are present. There are no findings to suggest acute dural sinus thrombosis or acute territorial infarct. No significant calvarial abnormalities are present. Visualized portions of the sinuses and mastoid air cells are clear. IMPRESSION: No acute intracranial findings. No change in appearance of the brain. XR chest 1V portable CLINICAL HISTORY: fall. Evaluate cardiopulmonary status COMPARISON STUDY: No previous studies for comparison. TECHNIQUE: 1 view of the chest FINDINGS: Single frontal view of the chest demonstrates the cardiomediastinal silhouette to be within normal limits. There is evidence for a moderate-sized left pleural effusion with left lower lobe atelectasis/collapse. Patchy alveolar opacities are also seen involving the left mid to upper lung. No definite rib fractures are seen. The right hemithorax is clear. There is no right pleural effusion. There is no evidence for vascular congestion. There is no acute osseous pathology. IMPRESSION: 1. Small to moderate-sized left pleural effusion with left lower lobe atelectasis/collapse and alveolar opacity left midlung. Differential includes the presence of pneumonia versus underlying neoplastic process. The patient has no complaints which would be more concerning for neoplastic process. Follow-up CT of the chest with contrast is recommended. XR pelvis 1-2V routine CLINICAL HISTORY: Fall. COMPARISON: None FINDINGS: Sacroiliac joints and symphysis pubis are intact. No acute fracture is identified within the pelvis or hips. Moderate vascular calcification is incidentally noted. Mild joint space narrowing and moderate osteophytosis of the left hip is present. IMPRESSION: No acute fracture within the pelvis or hips. Medications Administered ER Medications Given: NSS 1L bolus Solu-medrol 40mg IV ECG Indication: altered mental status Rate (beats per minute): 88 Rhythm: normal sinus Findings: + nonspecific-ST abn Comparison ECG Date: from (October 01, 2021) Change: the following changes noted (T wave flattening in anterior leads is new) Code Status & VTE Plan Code Status DNR/DNI VTE Prophylaxis Plan VTE Prophylaxis will be ordered: Yes PG Care Time/CCT Total # of Minutes Spent Total Time Spent with Patient: Total time spent is greater than 50% in coordination of care (as documented) at patient's floor/unit and/or counseling patient: Coding Level of Care Code 17607 Initial Inpt Care Lvl 3 Diagnoses Hypoxia R09.02 Adrenal insufficiency E27.40 Esophageal stricture K22.2 Fall W19.XXXA Left sided abdominal pain R10.9 Peripheral neuropathy G62.9 COPD (chronic obstructive pulmonary disease) J44.9 COPD type: unspecified COPD Benign prostate hyperplasia N40.0 Hypotension I95.9 (1) COPD (chronic obstructive pulmonary disease) COPD type: unspecified COPD Qualified Code(s): J44.9 - Chronic obstructive pulmonary disease, unspecified
--- NOTE | 2021-10-30 16:01 | Electrocardiogram Report ---
Test Reason : Blood Pressure : / mmHG Vent. Rate : 088 BPM Atrial Rate : 088 BPM P-R Int : 156 ms QRS Dur : 064 ms QT Int : 382 ms P-R-T Axes : 030 021 042 degrees QTc Int : 462 ms Poor data quality, interpretation may be adversely affected Normal sinus rhythm Possible Left atrial enlargement Low voltage QRS Nonspecific ST abnormality Abnormal ECG When compared with ECG of 01-OCT-2021 12:17, Nonspecific T wave abnormality now evident in Anterior leads Confirmed by Michael Patel ([id number]) on 10/30/2021 4:00:41 PM Referred By: REFERRED SELF Confirmed By:Michael Patel
[2021-10-30] MEDS ORDERED: ALBUTEROL HFA 8 GM INHALER INH PRN (21:55)
[2021-10-30] MEDS ORDERED: ONDANSETRON INJ 2 MG/ML 2 ML VIAL IV PRN (21:55)
[2021-10-30] MEDS: QUEtiapine FUMARATE 25 MG TABLET PO SCH (22:57)
[2021-10-30] MEDS: MELATONIN 3 MG TAB PO SCH (22:57)
[2021-10-30] MEDS: GABAPENTIN 300 MG CAP PO SCH (22:57)
[2021-10-30] MEDS: MIDODRINE HCL 2.5 MG TAB PO SCH (23:01)
[2021-10-31] MEDS: GABAPENTIN 300 MG CAP PO SCH ×3 (07:56→20:14)
[2021-10-31] MEDS: MIDODRINE HCL 2.5 MG TAB PO SCH ×3 (07:56→18:14)
[2021-10-31] MEDS: PANTOprazole 40 MG TAB PO SCH (07:57)
[2021-10-31] MEDS: ASPIRIN 81 MG ECTAB PO SCH (07:57)
[2021-10-31] MEDS: ATORVASTATIN 40 MG TAB PO SCH (07:57)
[2021-10-31] MEDS: buPROPion HCl 100 MG TABLET PO SCH (07:57)
[2021-10-31] MEDS: HYDROCORTISONE 10 MG TAB PO SCH (07:57)
[2021-10-31] MEDS: FOLIC ACID 1 MG TAB PO SCH (07:57)
[2021-10-31] MEDS: TAMSULOSIN HCL 0.4 MG CAP PO SCH (07:58)
[2021-10-31] MEDS: AVODART - ORDER AWAITING ACTION SCH ×3 (08:00→14:09)
--- NOTE | 2021-10-31 09:33 | Gastrointestinal Consultation ---
Date of Consultation October 31, 2021 Assessment & Plan (1) Dysphagia: Patient with intermittent solid food dysphagia. Recent upper endoscopy showed evidence of a distal esophageal stricture. As the patient was on Plavix it appears that the stricture was not dilated. Would recommend that the patient be on a full liquid diet until upper endoscopy can be arranged. If possible we will try to make arrangements for endoscopy on Tuesday pending the patient's respiratory status and other medical issues. Otherwise this could certainly be arranged as an outpatient over the next few weeks. Recommendations Full liquid diet consider use of nutritional supplements Continue once daily PPI Would suggest stopping the Plavix Upper endoscopy Tuesday pending patient course or as an outpatient over the next few weeks. Please call with any questions or concerns over the remainder of the weekend History of Present Illness Reason for Consultation: Dysphagia Requesting Physician: Dr. Cole Attending Physician: Omid Cole MD History of Present Illness Roberth Luther is a 66 year old male who presents to the ER after a fall while trying to get from his bed to his wheelchair. He denies any pain following the fall but his caretakers were unable to get him back into his wheelchair therefore called EMS. It appears he was admitted for hypoxia thought to be related to a chest wall injury. Gastroneurology is consulted for history of solid food dysphagia. Of note the patient did have a recent procedure by Dr. Randolph who found a stricture in the distal esophagus and was planning to do a dilation at a point in the future as the patient was on his antiplatelet agents during his exam. Allergies Allergy/AdvReac Type Severity Reaction Status Date / Time ciprofloxacin Allergy Mild RASH Verified 10/30/21 15:29 vancomycin Allergy Mild RASH Verified 10/30/21 15:29 sulfamethoxazole Allergy Unknown Unknown Verified 10/30/21 15:29 [From Bactrim] trimethoprim [From Bactrim] Allergy Unknown Unknown Verified 10/30/21 15:29 Home Medications Medication Instructions Recorded Confirmed Type miscellaneous medical supply #1 ea 08/07/21 10/14/21 Rx albuterol sulfate 90 mcg/actuation 2 puff INH QID PRN #18 gm 08/13/21 10/30/21 Rx aerosol inhaler (Ventolin HFA) melatonin 5 mg tablet 5 mg PO HS 08/13/21 10/30/21 History atorvastatin 40 mg tablet 40 mg PO QAM 30 Days #90 tab 09/04/21 10/30/21 Rx clopidogrel 75 mg tablet 75 mg PO QAM 30 Days #90 tab 09/04/21 10/30/21 Rx hydrocortisone 10 mg tablet 15 mg PO QAM 90 Days #135 tab 09/18/21 10/30/21 Rx (Cortef) aspirin 81 mg chewable tablet 81 mg PO QAM 10/01/21 10/30/21 History bupropion HCl 100 mg tablet 100 mg PO QAM 10/01/21 10/30/21 History dutasteride 0.5 mg capsule 0.5 mg PO QAM 10/01/21 10/30/21 History (Avodart) fluticasone fur. 100 mcg-umeclid 1 inh INHALATION QAM 10/01/21 10/30/21 History 62.5 mcg-vilant 25 mcg inhalat.powder (Trelegy Ellipta) folic acid 1 mg tablet 1,000 mcg PO QAM 10/01/21 10/30/21 History lansoprazole 30 mg capsule,delayed 30 mg PO QAM 10/01/21 10/30/21 History release (Prevacid) omeprazole magnesium 20 mg 20 mg PO QAM 10/01/21 10/30/21 History tablet,delayed release (Prilosec OTC) quetiapine 25 mg tablet 25 mg PO QAM 10/01/21 10/30/21 History tamsulosin 0.4 mg capsule 0.4 mg PO QAM 10/01/21 10/30/21 History gabapentin 300 mg capsule 300 mg PO TID 10/22/21 10/30/21 History midodrine 5 mg tablet 5 mg PO TID #90 tab 10/28/21 10/30/21 Rx Patient History Medical History Adrenal insufficiency Ataxic gait Bacteremia due to methicillin resistant Staphylococcus aureus Benign prostate hyperplasia Bilateral carotid artery occlusion Bipolar disorder 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 Esophageal stenosis GERD (gastroesophageal reflux disease) Hepatic steatosis Hiatal hernia History of COVID-19 07/2020 ([facility]) HOSPITALIZED AT [facility] History of lung cancer (01/2016) 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 HTN (hypertension) Hypertension Medical marijuana use Memory loss Nausea & vomiting On anticoagulant therapy plavix daily On home oxygen therapy 3L n/c prn for SOB Osteomyelitis Peripheral arterial disease Peripheral neuropathy Recurrent left pleural effusion s/p thoracentesis August 2018 Restless leg syndrome Schizoaffective disorder Surgical History H/O foot surgery LEFT HEEL REMOVAL FROM PRESSURE ULCER History of bronchoscopy (01/2016) History of colonoscopy History of esophagogastroduodenoscopy (EGD) last was with dialation 04/27/21 @ [facility] History of herniorrhaphy History of lobectomy of lung LOWER LEFT LUNG S/P peripheral artery angioplasty with stent placement (06/2016) LLE ROUSTABOUT PUSHER, 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 S/P thoracentesis (05/2019) L pleural effusion Status post femorofemoral bypass surgery (06/2016) [place] teeth removed Family History Brother Myocardial infarction Father Myocardial infarction Other Cancer Family history non-contributory Lung disease No family history of adverse response to anesthesia Denies family history of Tuberculosis Ovarian cancer Prostate cancer Diabetes Heart disease Allergies Breast cancer Emphysema, unspecified Lung cancer Colorectal cancer Asthma Social History (System 10/30/21 @ 13:22 by Lisa Mcclain) Smoking Status: Former smoker Tobacco Type: Cigarettes Age Started Using Tobacco: 10; packs per day: 0.5; Years Smoked: 30; Cigarettes Per Day: 6-8 DAILY; Second Hand Exposure: No; Hx Alcohol Use: No Hx Substance Use: Yes Prescribed Medications: Marijuana Last Used Substance: Days (ago) Last Used Substance Other:: 2 days ago Preferred Language: Hungarian Communication Ability: Effective Visual Impairment: No Limitations Hearing Ability: Normal Oracle Fusion Middleware 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 Required: No Beliefs That Will Affect Care: None marital status: single Current Living Situation: Alone Current Living Situation Comment: [address] current occupational status: disabled How many Children do You have: 2 Other Information That Helps Us Care for You: No Feels Safe at Home: Yes Safety Concerns: Feels Safe At This Time Childhood Exposure to Second-Hand Smoke: Yes Diet Comment: regular caffeine: Yes (coffee 1 pot a day) during the past year weight has: remained stable Dental Care, Regularly: No Physical Activity Frequency: Does not Exercise Seatbelt Use: always Sunscreen Use: No Assistive Devices: Denture - Upper, Denture - Lower, Glasses, Oxygen - Continuous and Wheelchair Review of Systems Constitutional: + malaise and + weakness; no sweats Eyes: no blind spots and no diplopia Ear, Nose, Mouth, Throat: + dizziness Respiratory: + cough and + dyspnea; no snoring Cardiovascular: no chest pain with activity Gastrointestinal: no abdominal pain, no bloating, no nausea and no vomiting Genitourinary: no hematuria Musculoskeletal: no radicular pain Integumentary: no rash and no non-healing lesions Neurologic: + falls Psychiatric: no hopelessness Endocrine: no polydipsia Hematologic / Lymphatic: + easy bruising Physical Exam Constitutional: WD/WN, vitals as above Eyes: PERRL, conjunctivae normal, anicteric sclerae ENMT: external ear and nose normal, oropharynx normal Neck: trachea midline, no thyromegaly Respiratory: Auscultation: + diminished lung sounds, + rales and + wheezes Cardiovascular: Heart Sounds: + murmur Gastrointestinal (Abdomen): Percussion/Palpation: abdomen soft; abdomen nontender and no guarding Results & Data ([facility]) Vital Signs (Past 12 Hours) Vital Signs Temp Pulse Resp BP Pulse Ox 10/31/21 07:54 36.3 C L 84 18 109/66 96 10/30/21 22:14 36.6 C 119 H 25 H 156/93 H 98 Laboratory Results Laboratory Results - last 24 hr 10/30/21 10/30/21 10/30/21 12:50 12:50 12:50 WBC 4.00 L RBC 4.21 Hgb 10.7 L Hct 32.9 L MCV 78.1 L MCH 25.4 MCHC 32.5 RDW Std Deviation 46.9 H RDW Coeff of Raul 16.4 H Plt Count 325 MPV 9.6 Immature Gran % (Auto) 0.0 Neut % (Auto) 69.1 Lymph % (Auto) 14.8 [place] % (Auto) 10.3 Eos % (Auto) 5.5 Baso % (Auto) 0.3 Neut # (Auto) 2.77 Lymph # (Auto) 0.59 L [place] # (Auto) 0.41 Eos # (Auto) 0.22 Baso # (Auto) 0.01 Immature Gran # (Auto) 0.00 VBG pH VBG pCO2 VBG pO2 VBG HCO3 VBG O2 Saturation VBG Base Excess Barometric Pressure Sodium 133 L Potassium 3.6 Chloride 100 Carbon Dioxide 24 Anion Gap 9 BUN 8 Creatinine 0.92 Est Cr Clr Drug Dosing 54.4 Est GFR ( Amer) 99.4 Est GFR (Non-Af Amer) 85.8 BUN/Creatinine Ratio 8.7 L Glucose 92 Calcium 9.6 Total Bilirubin 0.6 AST 17 ALT 10 Alkaline Phosphatase 87 Troponin I High Sens 7.4 Total Protein 7.7 Albumin 3.7 Globulin 4.0 Albumin/Globulin Ratio 0.9 Lipase 25 Urine Color Urine Appearance Urine pH Ur Specific [place] Urine Protein Urine Glucose (UA) Urine Ketones Urine Blood Urine Nitrite Urine Bilirubin Urine Urobilinogen Ur Leukocyte Esterase Ethyl Alcohol mg/dL < 10.0 SARS-CoV-2, RNA, NAAT 10/30/21 10/30/21 10/30/21 12:50 12:52 14:52 WBC RBC Hgb Hct MCV MCH MCHC RDW Std Deviation RDW Coeff of Raul Plt Count MPV Immature Gran % (Auto) Neut % (Auto) Lymph % (Auto) [place] % (Auto) Eos % (Auto) Baso % (Auto) Neut # (Auto) Lymph # (Auto) [place] # (Auto) Eos # (Auto) Baso # (Auto) Immature Gran # (Auto) VBG pH 7.36 VBG pCO2 47 VBG pO2 17 VBG HCO3 26 VBG O2 Saturation < 60.0 VBG Base Excess 0 Barometric Pressure 726.7 Sodium Potassium Chloride Carbon Dioxide Anion Gap BUN Creatinine Est Cr Clr Drug Dosing Est GFR ( Amer) Est GFR (Non-Af Amer) BUN/Creatinine Ratio Glucose Calcium Total Bilirubin AST ALT Alkaline Phosphatase Troponin I High Sens Total Protein Albumin Globulin Albumin/Globulin Ratio Lipase Urine Color Yellow Urine Appearance Clear Urine pH 6.0 Ur Specific [place] 1.006 Urine Protein Negative Urine Glucose (UA) Negative Urine Ketones Negative Urine Blood Negative Urine Nitrite Negative Urine Bilirubin Negative Urine Urobilinogen Negative Ur Leukocyte Esterase Negative Ethyl Alcohol mg/dL SARS-CoV-2, RNA, NAAT NEGATIVE Diagnostic Findings One benign-appearing, intrinsic severe (stenosis; an endoscope cannot pass) stenosis was found in the mid esophagus. The stenosis was traversed after downsizing scope. Biopsies were taken with a cold forceps for histology. Estimated blood loss: none. could not dilate stricture as he took plavix 2 days prior to procedure. A medium-sized hiatal hernia was present. Localized mildly erythematous mucosa without bleeding was found in the gastric antrum. The duodenal bulb and second portion of the duodenum were normal. Impression: - Benign-appearing esophageal stenosis. Biopsied. - Medium-sized hiatal hernia. - Erythematous mucosa in the antrum. - Normal duodenal bulb and second portion of the duodenum.
[2021-10-31] MEDS: FLUTICASONE FUROATE 100MCG 14 PUFFS/INHALER INH SCH (11:46)
[2021-10-31] MEDS: UMECLIDINIUM/VILANTEROL 62.5/25MCG 7 PUFFS/INHALER INH SCH (11:47)
--- NOTE | 2021-10-31 17:06 | Hospitalist Progress Note ---
Date of Service October 31, 2021 Assessment & Plan (1) Fall: Plan: Appears from chronic ambulatory dysfunction from transfer. Fortunately no apparent injuries from the fall. PT/OT assessment pending (2) Hypoxia: Plan: Suspect just from atelectasis following fall with known chronic pleural effusion. Defer pleural effusion management to his outpatient newspaper manager unless O2 sats do not improve. Wean O2 as able > 90%. Weaned while I was in the room to room air. (3) Esophageal stricture: Plan: Severe ongoing dysphagia. Will place on minced and moist diet for now but may have to scale down to liquids if unable to tolerate this. Previously diagnosed on EGD in April 2021. Severe on repeat EGD on October 27 however he was taking clopidogrel therefore this couldn't be dilated. Hold clopidogrel. Appreciate GI consult - would recommend EGD and dilatation performed this admission given severe calorie protein malnutrition and lack of ability for patient to follow up as outpatient. (4) Left sided abdominal pain: Plan: No acute pathology seen on CT A/P on October 21. Gastroenterology to consider colonoscopy at same time as his EGD. (5) Adrenal insufficiency: Plan: Mildly hypotensive on arrival to the ER. No specific etiology suspected to exacerbate this therefore will place back on his usual hydrocortisone. Doubtful nausea due to adrenal insufficiency given alternative explanation with known esophageal stenosis. Stable BP on his usual hydrocortisone (6) Peripheral neuropathy: Plan: Continue gabapentin 300 mg PO TID (7) COPD (chronic obstructive pulmonary disease): Plan: Continue Trelegy Ellipta or hospital formulary equivalent Do not suspect acute exacerbation and further steroids deferred. (8) Benign prostate hyperplasia: Plan: Continue tamsulosin 0.4mg PO daily (9) Hypotension: Plan: Prior history of orthostatic hypotension Continue midodrine 5mg TID Plan: VTE Prophylaxis - deferred given lack of acute pathology and need for EGD Diet - full liquids per GI recommendations Disposition - Continued admission to med/surg Admission and Anticipated Discharge Date Admission Date: October 30, 2021 Subjective No change in symptoms. Ongoing dysphagia. No fever or chills. No cough. Shortness of breath at baseline. Able to be weaned off O2 while I was in the room. Review of Systems Review of Systems: All systems reviewed & are unremarkable except as noted in Subjective Physical Exam Constitutional: well developed and + frail appearing; + not well nourished and no acute distress ENMT: external ear and nose normal, oropharynx normal Neck: trachea midline, no thyromegaly Respiratory: normal respiratory effort Auscultation: + breath sounds absent (left base) Cardiovascular: RRR, no murmur, no edema Gastrointestinal (Abdomen): Inspection/Auscultation: normal bowel sounds Percussion/Palpation: + abdomen tender (left sided, no guarding or rebound) and abdomen soft; no guarding and abdomen not rigid Psychiatric: A+Ox3, euthymic affect Results & Data Results & Data ([facility]) Vital Signs (Past 12 Hours) Vital Signs Temp Pulse Resp BP Pulse Ox 10/31/21 15:05 36.4 C L 87 16 122/69 95 10/31/21 07:54 36.3 C L 84 18 109/66 96 PG Care Time/CCT Total # of Minutes Spent Total Time Spent with Patient: Total time spent is greater than 50% in coordination of care (as documented) at patient's floor/unit and/or counseling patient: Coding Level of Care Code 59876 Subseq Hosp Care Lvl 1 Diagnoses Fall W19.XXXA Hypoxia R09.02 Esophageal stricture K22.2 Left sided abdominal pain R10.9 Adrenal insufficiency E27.40 Peripheral neuropathy G62.9 COPD (chronic obstructive pulmonary disease) J44.9 COPD type: unspecified COPD Benign prostate hyperplasia N40.0 Hypotension I95.9 (1) COPD (chronic obstructive pulmonary disease) COPD type: unspecified COPD Qualified Code(s): J44.9 - Chronic obstructive pulmonary disease, unspecified
[2021-10-31] MEDS: QUEtiapine FUMARATE 25 MG TABLET PO SCH (20:14)
[2021-10-31] MEDS: MELATONIN 3 MG TAB PO SCH (20:14)
[2021-11-01] MEDS: ATORVASTATIN 40 MG TAB PO SCH (07:15)
[2021-11-01] MEDS: GABAPENTIN 300 MG CAP PO SCH ×3 (07:15→20:06)
[2021-11-01] MEDS: FOLIC ACID 1 MG TAB PO SCH (07:15)
[2021-11-01] MEDS: TAMSULOSIN HCL 0.4 MG CAP PO SCH (07:16)
[2021-11-01] MEDS: buPROPion HCl 100 MG TABLET PO SCH (07:16)
[2021-11-01] MEDS: HYDROCORTISONE 10 MG TAB PO SCH ×2 (07:16→17:00)
[2021-11-01] MEDS: PANTOprazole 40 MG TAB PO SCH (07:16)
[2021-11-01] MEDS: MIDODRINE HCL 2.5 MG TAB PO SCH ×3 (07:16→17:01)
[2021-11-01] MEDS: ASPIRIN 81 MG ECTAB PO SCH (07:16)
[2021-11-01] MEDS: UMECLIDINIUM/VILANTEROL 62.5/25MCG 7 PUFFS/INHALER INH SCH (07:17)
[2021-11-01] MEDS: AVODART - ORDER AWAITING ACTION SCH ×3 (07:17→15:01)
[2021-11-01] MEDS: FLUTICASONE FUROATE 100MCG 14 PUFFS/INHALER INH SCH (07:17)
--- NOTE | 2021-11-01 15:13 | Hospitalist Progress Note ---
Date of Service November 01, 2021 Assessment & Plan (1) Fall: Plan: Appears from chronic ambulatory dysfunction from transfer. Fortunately no apparent injuries from the fall. PT/OT assessment pending (patient deferred assessment) (2) Hypoxia: Plan: Suspect just from atelectasis following fall with known chronic pleural effusion. Defer pleural effusion management to his outpatient tax map technician unless O2 sats do not improve. Wean O2 as able > 90%. Weaned while I was in the room to room air. (3) Esophageal stricture: Plan: Severe ongoing dysphagia. Will place on minced and moist diet for now but may have to scale down to liquids if unable to tolerate this. Previously diagnosed on EGD in April 2021. Severe on repeat EGD on October 27 however he was taking clopidogrel therefore this couldn't be dilated. Hold clopidogrel. Appreciate GI consult - would recommend EGD and dilatation performed this admission given severe calorie protein malnutrition and lack of ability for patient to follow up as outpatient. (4) Left sided abdominal pain: Plan: No acute pathology seen on CT A/P on October 21. Gastroenterology to consider colonoscopy at same time as his EGD. ?Constipation. Not yet had a BM therefore will increase MiraLAX to 17g BID (5) Adrenal insufficiency: Plan: Mildly hypotensive on arrival to the ER. No specific etiology suspected to exacerbate this therefore will place back on his usual hydrocortisone. Unclear why his hydrocortisone does was changed from discharge to PCP appointment from 15mg +10mg to just the 15mg PO daily in the morning but suspect this was in error. He can likely tolerate a smaller dose and will change to 10mg PO QAM and 5mg in the afternoon. (6) Peripheral neuropathy: Plan: Continue gabapentin 300 mg PO TID (7) COPD (chronic obstructive pulmonary disease): Plan: Continue Trelegy Ellipta or hospital formulary equivalent Do not suspect acute exacerbation and further steroids deferred. (8) Benign prostate hyperplasia: Plan: Continue tamsulosin 0.4mg PO daily (9) Hypotension: Plan: Prior history of orthostatic hypotension Continue midodrine 5mg TID Plan: VTE Prophylaxis - deferred given lack of acute pathology and need for EGD Diet - full liquids per GI recommendations Disposition - Continued admission to med/surg Admission and Anticipated Discharge Date Admission Date: October 30, 2021 Subjective Awaiting EGD. Tolerating full liquid diet. Not yet had a BM however. Ongoing mild left sided abdominal pain, no worse or better. Review of Systems Review of Systems: All systems reviewed & are unremarkable except as noted in Subjective Physical Exam Constitutional: well developed and + frail appearing; + not well nourished and no acute distress ENMT: external ear and nose normal, oropharynx normal Neck: trachea midline, no thyromegaly Respiratory: normal respiratory effort, lungs clear to auscultation normal respiratory effort Auscultation: + breath sounds absent (left base) Cardiovascular: RRR, no murmur, no edema Gastrointestinal (Abdomen): Inspection/Auscultation: normal bowel sounds Percussion/Palpation: + abdomen tender (left sided, no guarding or rebound) and abdomen soft; no guarding and abdomen not rigid Musculoskeletal: no cyanosis or clubbing, extremities motor strength 5/5 Skin: no rashes, warm and dry Psychiatric: A+Ox3, euthymic affect Results & Data Results & Data ([facility]) Vital Signs (Past 12 Hours) Vital Signs Temp Pulse Resp BP Pulse Ox 11/01/21 14:45 36.4 C L 90 16 111/69 96 11/01/21 07:38 36.4 C L 84 16 90/57 L 97 PG Care Time/CCT Total # of Minutes Spent Total Time Spent with Patient: Total time spent is greater than 50% in coordination of care (as documented) at patient's floor/unit and/or counseling patient: Coding Level of Care Code 07937 Subseq Hosp Care Lvl 1 Diagnoses Fall W19.XXXA Hypoxia R09.02 Esophageal stricture K22.2 Left sided abdominal pain R10.9 Adrenal insufficiency E27.40 Peripheral neuropathy G62.9 COPD (chronic obstructive pulmonary disease) J44.9 COPD type: unspecified COPD Benign prostate hyperplasia N40.0 Hypotension I95.9 (1) COPD (chronic obstructive pulmonary disease) COPD type: unspecified COPD Qualified Code(s): J44.9 - Chronic obstructive pulmonary disease, unspecified
[2021-11-01] MEDS: QUEtiapine FUMARATE 25 MG TABLET PO SCH (20:06)
[2021-11-01] MEDS: MELATONIN 3 MG TAB PO SCH (20:06)
[2021-11-01] MEDS: POLYETHYLENE (MIRALAX) 17 GM PACK PO SCH ×2 (20:10→20:22)
[2021-11-02] MEDS: ACETAMINOPHEN 325 MG TAB PO PRN ×2 (00:23→19:38)
[2021-11-02] MEDS: FOLIC ACID 1 MG TAB PO SCH (07:14)
[2021-11-02] MEDS: MIDODRINE HCL 2.5 MG TAB PO SCH ×3 (07:14→16:30)
[2021-11-02] MEDS: AVODART - ORDER AWAITING ACTION SCH ×3 (07:14→16:28)
[2021-11-02] MEDS: buPROPion HCl 100 MG TABLET PO SCH (07:15)
[2021-11-02] MEDS: TAMSULOSIN HCL 0.4 MG CAP PO SCH (07:15)
[2021-11-02] MEDS: GABAPENTIN 300 MG CAP PO SCH ×3 (07:15→20:36)
[2021-11-02] MEDS: HYDROCORTISONE 10 MG TAB PO SCH ×2 (07:15→16:30)
[2021-11-02] MEDS: ATORVASTATIN 40 MG TAB PO SCH (07:16)
[2021-11-02] MEDS: UMECLIDINIUM/VILANTEROL 62.5/25MCG 7 PUFFS/INHALER INH SCH (07:16)
[2021-11-02] MEDS: ASPIRIN 81 MG ECTAB PO SCH (07:16)
[2021-11-02] MEDS: PANTOprazole 40 MG TAB PO SCH (07:16)
[2021-11-02] MEDS: FLUTICASONE FUROATE 100MCG 14 PUFFS/INHALER INH SCH (07:16)
[2021-11-02] MEDS: ENOXAPARIN INJ 40 MG/0.4 ML SYR SQ SCH (07:17)
[2021-11-02] MEDS: POLYETHYLENE (MIRALAX) 17 GM PACK PO SCH ×2 (07:23→23:43)
[2021-11-02 08:04] LABS: Basophils # (auto) 0.01 K/uL (0-0.2); Basophils % (auto) 0.1 %; Eosinophils # (auto) 0.06 K/uL (0-0.5); Eosinophils % (auto) 0.5 %; Hematocrit (blood only) 34.8 % (42-52); Hemoglobin 11.5 g/dL (14.0-18.0); Immature Granulocytes # (auto) 0.05 K/uL (0.00-0.02); Immature Granulocytes % (auto) 0.4 %; Lymphocytes # (auto) 0.94 K/uL (1.2-3.4); Lymphocytes % (auto) 8.1 %; Mean Corpuscular Hemoglobin 26.4 pg (25-34); Mean Corpuscular Volume 79.8 fL (80-100); Mean Platelet Volume 9.6 fL (7.4-10.4); Monocytes # (auto) 0.74 K/uL (0.11-0.59); Monocytes % (auto) 6.3 %; Neutrophils # (auto) 9.86 K/uL (1.4-6.5); Neutrophils % (auto) 84.6 %; Platelet Count 363 K/uL (130-400); RDW Coefficient of Variation 16.9 % (11.5-14.5); RDW Standard Deviation 49.6 fL (36.4-46.3); Red Blood Count 4.36 M/uL (4.7-6.1); White Blood Count 11.66 K/uL (4.8-10.8)
[2021-11-02 08:23] LABS: BUN Creatinine Ratio 22.7 (10-20); Calcium 9.3 mg/dl (8.5-10.1); Creatinine Clr Calc Pharmacy 98.7 ml/min; Est GFR (Non-African American) 94.9 ml/min; Potassium 4.5 mmol/L (3.5-5.1)
[2021-11-02 08:26] LABS: Albumin Level 3.9 gm/dl (3.4-5.0); Bilirubin,Total 0.3 mg/dl (0.2-1.0); Total Protein 7.9 gm/dl (6.0-8.3)
[2021-11-02] MEDS ORDERED: LACTATED RINGER'S 1,000 ML IV ONE (09:49)
--- NOTE | 2021-11-02 11:41 | XRay Report ---
XR KUB/Abdomen 1 view CLINICAL HISTORY: vomiting, abdominal pain ?SBO TECHNIQUE: 1 view of the abdomen was obtained. Comparison: None available at the time of this dictation. FINDINGS: Lung bases are unremarkable. The osseous structures are grossly unremarkable. Prominent colonic gas i s seen. A large gas bubble is seen in the stomach. No dilated loops of small bowel are seen. A modera te amount of stool is noted within the large bowel. IMPRESSION: Large gas bubble in the stomach and prominent colonic gas, no evidence of small bowel obstruction. ACT 112: Negative or not required by law. Electronically signed by: Lanre Douglass M.D. 11/02/2021 11:39 AM
[2021-11-02] MEDS ORDERED: SIMETHICONE 80 MG CHEW PO PRN (14:51)
[2021-11-02] MEDS: LACTATED RINGER'S 1,000 ML IV SCH ×2 (16:32→23:31)
[2021-11-02] MEDS: QUEtiapine FUMARATE 25 MG TABLET PO SCH (20:36)
[2021-11-02] MEDS: MELATONIN 3 MG TAB PO SCH (20:36)
--- NOTE | 2021-11-02 21:02 | Hospitalist Progress Note ---
Date of Service November 02, 2021 Assessment & Plan (1) Fall: Plan: Appears from chronic ambulatory dysfunction from transfer. Fortunately no apparent injuries from the fall. PT/OT pending (2) Hypoxia: Plan: Resolved without any specific treatment Suspect from movement of chronic pleural effusion after fall. (3) Esophageal stricture: Plan: Severe ongoing dysphagia. Will place on minced and moist diet for now but may have to scale down to liquids if unable to tolerate this. Previously diagnosed on EGD in April 2021. Severe on repeat EGD on October 27 however he was taking clopidogrel therefore this couldn't be dilated. Hold clopidogrel. Appreciate GI consult - would recommend EGD and dilatation performed this admission given severe calorie protein malnutrition and lack of ability for patient to follow up as outpatient. Planning on performing this tomorrow. N.p.o. after midnight. (4) Left sided abdominal pain: Plan: No acute pathology seen on CT A/P on October 21. Nausea and vomiting after increasing MiraLAX yesterday to twice daily. Lactate this morning 2.4, increased to 2.7 - this was taken significantly after LR bolus given therefore difficult to attribute it to LR bolus XR KUB with very distended stomach but no large loops of small bowel Given increasing lactate will get CT A/P with IV contrast to r/o SBO or ischemic bowel prior to giving enemas for suspected constipation (5) Adrenal insufficiency: Plan: Mildly hypotensive on arrival to the ER. No specific etiology suspected to exacerbate this therefore will place back on his usual hydrocortisone. Continue on reduced dose of hydrocortisone 10 mg p.o. every morning and 5 mg in the afternoon. (6) Peripheral neuropathy: Plan: Continue gabapentin 300 mg PO TID (7) COPD (chronic obstructive pulmonary disease): Plan: Continue Trelegy Ellipta or hospital formulary equivalent Do not suspect acute exacerbation and further steroids deferred. (8) Benign prostate hyperplasia: Plan: Continue tamsulosin 0.4mg PO daily (9) Hypotension: Plan: Prior history of orthostatic hypotension Continue midodrine 5mg TID Plan: VTE Prophylaxis -Lovenox 40 mg subcu given today. Will place on hold for EGD tomorrow. Diet - NPO Disposition - Continued admission to med/surg Admission and Anticipated Discharge Date Admission Date: October 30, 2021 Subjective Not yet had a bowel movement since admission and cannot remember when he last had a bowel movement. Ongoing abdominal distention. Mild left-sided abdominal pain. Nausea and vomiting at 4 AM this morning. Tolerating full liquid diet since nausea and vomiting this morning - although even this is having some difficulty getting through his esophagus. Review of Systems Review of Systems: All systems reviewed & are unremarkable except as noted in Subjective Physical Exam Constitutional: well developed and + frail appearing; + not well nourished and no acute distress ENMT: external ear and nose normal, oropharynx normal Neck: trachea midline, no thyromegaly Respiratory: normal respiratory effort, lungs clear to auscultation normal respiratory effort Auscultation: + breath sounds absent (left base) Cardiovascular: RRR, no murmur, no edema Gastrointestinal (Abdomen): Inspection/Auscultation: normal bowel sounds Percussion/Palpation: + abdomen tender (left sided, no guarding or rebound) and abdomen soft; no guarding and abdomen not rigid Musculoskeletal: no cyanosis or clubbing, extremities motor strength 5/5 Skin: no rashes, warm and dry Psychiatric: A+Ox3, euthymic affect Results & Data Results & Data ([facility]) Vital Signs (Past 12 Hours) Vital Signs Temp Pulse Resp BP Pulse Ox 11/02/21 15:41 36.4 C L 98 H 16 127/78 98 PG Care Time/CCT Total # of Minutes Spent Total Time Spent with Patient: Total time spent is greater than 50% in coordination of care (as documented) at patient's floor/unit and/or counseling patient: Coding Level of Care Code 60136 Subseq Hosp Care Lvl 3 Diagnoses Fall W19.XXXA Hypoxia R09.02 Esophageal stricture K22.2 Left sided abdominal pain R10.9 Adrenal insufficiency E27.40 Peripheral neuropathy G62.9 COPD (chronic obstructive pulmonary disease) J44.9 COPD type: unspecified COPD Benign prostate hyperplasia N40.0 Hypotension I95.9 (1) COPD (chronic obstructive pulmonary disease) COPD type: unspecified COPD Qualified Code(s): J44.9 - Chronic obstructive pulmonary disease, unspecified
[2021-11-02] MEDS ORDERED: OPTIRAY 320 100ml IV ONE (23:01)
[2021-11-03] MEDS: AVODART - ORDER AWAITING ACTION SCH ×4 (00:19→23:27)
[2021-11-03] MEDS ORDERED: MINERAL OIL ENEMA 133 ML BTL PR STA (01:08)
[2021-11-03] MEDS: LACTATED RINGER'S 1,000 ML IV SCH (07:47)
--- NOTE | 2021-11-03 08:10 | Anesthesiology Consultation ---
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 Consults Requested none ASA ASA3 History Surgery Operation Date: 11/03/21 16:30 Proposed Procedures p Esophagogastroduodenoscopy Dr Blake - Andres [place] Case, DO Height/Weight Height: 5 ft 10 in Weight: 76.6 kg Allergies Allergy/AdvReac Type Severity Reaction Status Date / Time ciprofloxacin Allergy Mild RASH Verified 10/30/21 15:29 vancomycin Allergy Mild RASH Verified 10/30/21 15:29 sulfamethoxazole Allergy Unknown Unknown Verified 10/30/21 15:29 [From Bactrim] trimethoprim [From Bactrim] Allergy Unknown Unknown Verified 10/30/21 15:29 Medications Home Medications Medication Instructions Recorded Confirmed Last Taken miscellaneous medical supply #1 ea 08/07/21 10/14/21 Unknown albuterol sulfate 90 mcg/actuation 2 puff INH QID PRN #18 gm 08/13/21 10/30/21 10/29/21 aerosol inhaler (Ventolin HFA) melatonin 5 mg tablet 5 mg PO HS 08/13/21 10/30/21 10/29/21 atorvastatin 40 mg tablet 40 mg PO QAM 30 Days #90 tab 09/04/21 10/30/21 10/29/21 clopidogrel 75 mg tablet 75 mg PO QAM 30 Days #90 tab 09/04/21 10/30/21 10/29/21 hydrocortisone 10 mg tablet 15 mg PO QAM 90 Days #135 tab 09/18/21 10/30/21 10/29/21 (Cortef) aspirin 81 mg chewable tablet 81 mg PO QAM 10/01/21 10/30/21 10/29/21 bupropion HCl 100 mg tablet 100 mg PO QAM 10/01/21 10/30/21 10/29/21 dutasteride 0.5 mg capsule 0.5 mg PO QAM 10/01/21 10/30/21 10/29/21 (Avodart) fluticasone fur. 100 mcg-umeclid 1 inh INHALATION QAM 10/01/21 10/30/21 10/29/21 62.5 mcg-vilant 25 mcg inhalat.powder (Trelegy Ellipta) folic acid 1 mg tablet 1,000 mcg PO QAM 10/01/21 10/30/21 10/29/21 lansoprazole 30 mg capsule,delayed 30 mg PO QAM 10/01/21 10/30/21 10/29/21 release (Prevacid) omeprazole magnesium 20 mg 20 mg PO QAM 10/01/21 10/30/21 10/29/21 tablet,delayed release (Prilosec OTC) quetiapine 25 mg tablet 25 mg PO QAM 10/01/21 10/30/21 10/29/21 tamsulosin 0.4 mg capsule 0.4 mg PO QAM 10/01/21 10/30/21 10/29/21 gabapentin 300 mg capsule 300 mg PO TID 10/22/21 10/30/21 10/29/21 midodrine 5 mg tablet 5 mg PO TID #90 tab 10/28/21 10/30/21 10/29/21 Active Medications Generic Name Dose Route Start Last Admin Trade Name Freq PRN Reason Stop Dose Admin Acetaminophen 650 mg 10/30/21 21:55 11/02/21 19:38 Acetaminophen 325 Mg Tab PO 11/29/21 21:54 650 mg Q4H PRN Administration pain/fever Aspirin 81 mg 10/31/21 09:00 11/02/21 07:16 Aspirin 81 Mg Ectab PO 11/30/21 08:59 81 mg QAM GERMAN Administration Atorvastatin Calcium 40 mg 10/31/21 09:00 11/02/21 07:16 Atorvastatin 40 Mg Tab PO 11/30/21 08:59 40 mg QAM GERMAN Administration Bupropion HCl 100 mg 10/31/21 09:00 11/02/21 07:15 Bupropion Hcl 100 Mg Tablet PO 11/30/21 08:59 100 mg QAM GERMAN Administration Enoxaparin Sodium 40 mg 11/02/21 09:00 11/02/21 07:17 Enoxaparin Inj 40 Mg/0.4 Ml Syr SQ 12/02/21 08:59 40 mg QAM GERMAN Administration Fluticasone Furoate 1 puffs 10/31/21 09:00 11/02/21 07:16 Fluticasone Furoate 100mcg 14 Puffs/Inhaler INH 11/30/21 08:59 1 puffs QAM GERMAN Administration Folic Acid 1 mg 10/31/21 09:00 11/02/21 07:14 Folic Acid 1 Mg Tab PO 11/30/21 08:59 1 mg QAM GERMAN Administration Gabapentin 300 mg 10/30/21 21:55 11/02/21 20:36 Gabapentin 300 Mg Cap PO 11/29/21 21:54 300 mg TID GERMAN Administration Hydrocortisone 5 mg 11/01/21 16:00 11/02/21 16:30 Hydrocortisone 10 Mg Tab PO 12/01/21 15:59 5 mg Q24H GERMAN Administration Hydrocortisone 10 mg 11/02/21 09:00 11/02/21 07:15 Hydrocortisone 10 Mg Tab PO 12/02/21 08:59 10 mg QAM GERMAN Administration Lactated Ringer's 1,000 mls @ 125 mls/hr 11/02/21 15:00 11/03/21 07:47 Lr IV 12/02/21 14:59 125 mls/hr .Q8H GERMAN Administration Melatonin 3 mg 10/30/21 21:55 11/02/21 20:36 Melatonin 3 Mg Tab PO 11/29/21 21:54 3 mg HS GERMAN Administration Midodrine 5 mg 10/30/21 21:55 11/02/21 16:30 Midodrine Hcl 2.5 Mg Tab PO 11/29/21 21:54 5 mg TID@0800,1200,1800 GERMAN Administration Miscellaneous 1 ea 10/31/21 00:00 11/03/21 00:19 Avodart - Order Awaiting Action N/A 11/30/21 00:00 Not Given QS GERMAN Ondansetron HCl 4 mg 10/30/21 21:55 11/02/21 20:34 Ondansetron Inj 2 Mg/Ml 2 Ml Vial IV 11/29/21 21:54 4 mg Q6H PRN Administration Nausea Pantoprazole Sodium 40 mg 10/31/21 09:00 11/02/21 07:16 Pantoprazole 40 Mg Tab PO 11/30/21 08:59 40 mg QAM GERMAN Administration Polyethylene Glycol 17 gm 11/01/21 21:00 11/02/21 23:43 Polyethylene (Miralax) 17 Gm Pack PO 12/01/21 20:59 Not Given BID GERMAN Quetiapine Fumarate 25 mg 10/30/21 21:55 11/02/21 20:36 Quetiapine Fumarate 25 Mg Tablet PO 06/26/22 21:54 25 mg HS GERMAN Administration Tamsulosin HCl 0.4 mg 10/31/21 09:00 11/02/21 07:15 Tamsulosin Hcl 0.4 Mg Cap PO 11/30/21 08:59 0.4 mg QAM GERMAN Administration Umeclidinium/Vilanterol 1 puffs 10/31/21 09:00 11/02/21 07:16 Umeclidinium/Vilanterol 62.5/25mcg 7 Puffs/Inhaler INH 11/30/21 08:59 1 puffs QAM GERMAN Administration NPO Date Last Intake of Fluids: 11/02/21 Time Last Intake of Fluids: 23:59 Date Last Intake of Solids: 11/02/21 Time Last Intake of Solids: 23:59 Past Medical History Medical History (Updated 11/03/21 @ 08:14 by Dao Arreola MD) Adrenal insufficiency Ataxic gait Bacteremia due to methicillin resistant Staphylococcus aureus Benign prostate hyperplasia Bilateral carotid artery occlusion Bipolar disorder 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 Encounter for pre-operative examination Esophageal stenosis GERD (gastroesophageal reflux disease) Hepatic steatosis Hiatal hernia History of COVID-19 07/2020 (DIARRHEA AND FEVER) HOSPITALIZED AT [facility] History of lung cancer (01/2016) 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 HTN (hypertension) Hypertension Medical marijuana use Memory loss Nausea & vomiting On anticoagulant therapy plavix daily On home oxygen therapy 3L n/c prn for SOB Osteomyelitis Peripheral arterial disease Peripheral neuropathy Recurrent left pleural effusion s/p thoracentesis August 2018 Restless leg syndrome Schizoaffective disorder Past Family History Family History Brother Myocardial infarction Father Myocardial infarction Other Cancer Family history non-contributory Lung disease No family history of adverse response to anesthesia Denies family history of Tuberculosis Ovarian cancer Prostate cancer Diabetes Heart disease Allergies Breast cancer Emphysema, unspecified Lung cancer Colorectal cancer Asthma Past Surgical History Surgical History H/O foot surgery LEFT HEEL REMOVAL FROM PRESSURE ULCER History of bronchoscopy (01/2016) History of colonoscopy History of esophagogastroduodenoscopy (EGD) last was with dialation 04/27/21 @ [facility] History of herniorrhaphy History of lobectomy of lung LOWER LEFT LUNG S/P peripheral artery angioplasty with stent placement (06/2016) [employer], 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 S/P thoracentesis (05/2019) L pleural effusion Status post femorofemoral bypass surgery (06/2016) Wren teeth removed Social History Smoking Status: Former smoker tobacco type: cigarettes Smoking cigarettes per day: 6-8 DAILY Hx Alcohol Use: No Alcohol type: beer alcohol intake frequency: a few times a week Hx Substance Use: Yes substance use type: marijuana Last Used Substance: Days (ago) Last Used Substance Other:: 2 days ago Physical Exam Vital Signs Last Vital Signs Temp 36.3 C L 11/03/21 07:17 Pulse 92 H 11/03/21 07:17 Resp 16 11/03/21 07:17 BP 156/88 H 11/03/21 07:17 Pulse Ox 98 11/03/21 07:17 Testing Laboratory Results 11/02/21 07:49 11/02/21 07:49 Urine Color Yellow 10/30/21 12:50 Urine Appearance Clear (Clear) 10/30/21 12:50 Urine pH 6.0 (4.5-7.5) 10/30/21 12:50 Ur Specific [place] 1.006 (1.000-1.030) 10/30/21 12:50 Urine Protein Negative (Negative) 10/30/21 12:50 Urine Glucose (UA) Negative (Negative) 10/30/21 12:50 Urine Ketones Negative (Negative) 10/30/21 12:50 Urine Nitrite Negative (Negative) 10/30/21 12:50 Ur Leukocyte Esterase Negative (Negative) 10/30/21 12:50 Electrocardiogram Date: 10/30/21 Poor data quality, interpretation may be adversely affected Normal sinus rhythm Possible Left atrial enlargement Low voltage QRS Nonspecific ST abnormality Abnormal ECG When compared with ECG of 01-OCT-2021 12:17, Nonspecific T wave abnormality now evident in Anterior leads Confirmed by Michael Patel ([id number]) on 10/30/2021 4:00:41 PM Chest X-Ray Date: 10/30/21 FINDINGS: Single frontal view of the chest demonstrates the cardiomediastinal silhouette to be within normal limits. There is evidence for a moderate-sized left pleural effusion with left lower lobe atelectasis/collapse. Patchy alveolar opacities are also seen involving the left mid to upper lung. No definite rib fractures are seen. The right hemithorax is clear. There is no right pleural effusion. There is no evidence for vascular congestion. There is no acute osseous pathology. IMPRESSION: 1. Small to moderate-sized left pleural effusion with left lower lobe atelectasis/collapse and alveolar opacity left midlung. Differential includes the presence of pneumonia versus underlying neoplastic process. The patient has no complaints which would be more concerning for neoplastic process. Follow-up CT of the chest with contrast is recommended.
--- NOTE | 2021-11-03 09:13 | CT Scan Report ---
ABDOMEN AND PELVIS CT WITH IV CONTRAST CT DOSE: 440.21 mGy.cm HISTORY: left abdominal pain, distended abdomen, lactate TECHNIQUE: Multiaxial CT images of the abdomen and pelvis were performed following the use of intrave nous contrast. A dose lowering technique was utilized adhering to the principles of ALARA. COMPARISON STUDY: Abdominal CT 10/21/[address] 03/17/2021. FINDINGS: No change in the chronic loculated left pleural effusion demonstrating mild pleural thicken ing and adjacent round atelectasis. The right lung base is clear. No pneumoperitoneum. No pneumatosis . Old, healed left lateral 10th rib fracture. No acute fractures identified within the chest. Small a becky of focal fatty change within the liver adjacent to the falciform ligament. No hepatic or splenic masses. The adrenal glands, gallbladder, and pancreas unremarkable. No renal or ureteral stones. No h ydronephrosis. Mild bilateral cortical renal scarring. Severe calcified plaque within the aorta and i liac arteries. There is chronic occlusion of the left iliac arteries with reconstitution of flow at t he left common femoral artery due to the patent femorofemoral bypass graft. Normal bladder. No pelvic free fluid or pelvic lymphadenopathy. A few colonic diverticula. No evidence for acute diverticuliti s. No bowel wall thickening or obstruction. Normal appendix. Moderate to large amount of stool within the proximal to mid colon. Approximately 60% stenosis within the right common iliac artery. IMPRESSION: 1. Moderate to large amount of well-formed stool within the proximal to mid colon. 2. No evidence of bowel obstruction. 3. Chronic loculated left pleural effusion, unchanged. 4. Normal appendix. 5. Additional findings as described above. ACT 112: Negative or not required by law. Electronically signed by: Patricio Burger M.D. 11/03/2021 9:12 AM
--- NOTE | 2021-11-03 09:20 | History & Physical Bridge Note ---
Date of Service November 03, 2021 History & Physical Bridge Note I have examined the patient, reviewed the History & Physical and in the interval since the performance of the History & Physical I have noted the following changes of clinical significance: no changes noted. Patient has been NPO since prior to midnight. He reports constipation but denies other new symptoms. Keep NPO & proceed with EGD with dilatation today now that his Plavix has been held appropriately. Supervising Physician Co-Signing Physician Notes Agree with SANDRA Lo as above Abd: Soft, NT, ND, +BS Continue current therapy Proceed with EGD now
[2021-11-03] MEDS ORDERED: SODIUM CHLORIDE 0.9% 1000ML 1,000 ML IV SCH (11:15)
[2021-11-03] MEDS ORDERED: ALBUT/IPRATROP 3MG/0.5MG NEB 3 ML VIAL NEB STA (11:24)
--- NOTE | 2021-11-03 12:03 | GI REPORT ---
Patient Name: Roberth Luther Procedure Date: 11/03/2021 11:21 AM Date of : 1955 Admit Type: Inpatient Age: 66 Gender: Male Attending MD: Andres Blake DO Procedure: Upper GI endoscopy Providers: Andres Blake DO Referring MD: Omid Cole Md Indications: Dysphagia Medicines: Monitored Anesthesia Care Complications: No immediate complications. Estimated Blood Loss: Estimated blood loss: none. Procedure: Pre-Anesthesia Assessment: - Prior to the procedure, a History and Physical was performed, and patient medications and allergies were reviewed. The patient's tolerance of previous anesthesia was also reviewed. The risks and benefits of the procedure and the sedation options and risks were discussed with the patient. All questions were answered, and informed consent was obtained. Prior Anticoagulants: The patient last took Lovenox (enoxaparin) 1 day and Plavix (clopidogrel) 5 days prior to the procedure. ASA Grade Assessment: III - A patient with severe systemic disease. After reviewing the risks and benefits, the patient was deemed in satisfactory condition to undergo the procedure. After obtaining informed consent, the endoscope was passed under direct vision. Throughout the procedure, the patient's blood pressure, pulse, and oxygen saturations were monitored continuously. The Endoscope was introduced through the mouth, and advanced to the second part of duodenum. The upper GI endoscopy was performed with difficulty due to narrowing. The patient tolerated the procedure well. Findings: One benign-appearing, intrinsic severe (stenosis; an endoscope cannot pass) stenosis was found 30 cm from the incisors. This stenosis measured 1 cm (inner diameter) x 2 cm (in length). The stenosis was traversed after dilation. A guidewire was placed and the scope was withdrawn. Dilation was performed with a Savary dilator with mild resistance at 36 Fr. The dilation site was examined following endoscope reinsertion and showed moderate improvement in luminal narrowing. A small hiatal hernia was present. The examined duodenum was normal. Impression: - Benign-appearing esophageal stenosis. Dilated. - Small hiatal hernia. - Normal examined duodenum. - No specimens collected. Recommendation: - Resume previous diet. - Increase Protonix (pantoprazole) 40 mg PO BID. - Repeat upper endoscopy in 2 weeks for retreatment. - Return to primary care physician as previously scheduled. Andres Blake DO 11/03/2021 12:03:11 PM This report has been signed electronically. Note Initiated On: 11/03/2021 11:21 AM Number of Addenda: 0 I attest to the content of the Intraoperative Record and orders documented therein, exceptions below {[id number]}
[2021-11-03] MEDS ORDERED: LIDOCAINE 2% 2 ML VIAL/AMP(20MG/ML) INFIL ONE (12:16)
[2021-11-03] MEDS ORDERED: PROPOFOL IV EMULSION 10 MG/ML 20 ML VIAL IV ONE (12:16)
[2021-11-03] MEDS ORDERED: PHENYLEPHRINE 100MCG/ML 5ML SYR ONE (12:16)
[2021-11-03] MEDS ORDERED: ePHEDrine sulfate 50 MG/ML SYR ONE (12:16)
--- NOTE | 2021-11-03 12:41 | Anesthesiology Progress Note ---
Date of Service November 03, 2021 Anesthesia Post Procedure Vital Signs Vital Signs: Temp Pulse Resp BP BP Pulse Ox 11/03/21 12:25 92 H 16 93/63 L 97 11/03/21 12:10 82 16 101/66 99 11/03/21 11:45 98 H 16 98 11/03/21 11:12 36.4 C L 102 H 18 124/88 98 11/03/21 07:17 36.3 C L 92 H 16 156/88 H 98 11/02/21 22:09 36.5 C 97 H 12 161/92 H 97 11/02/21 15:41 36.4 C L 98 H 16 127/78 98 Pain Intensity Abdomen: Pain Intensity: 9 Right Foot: Pain Intensity: 7 Transfer of Care Handoff Completed per policy Notes Mental Status: alert / awake / arousable and participated in evaluation Patient Amnestic to Procedure: Yes Nausea / Vomiting: adequately controlled Pain: adequately controlled Airway Patency, RR, SpO2: stable & adequate BP & HR: stable & adequate Hydration State: stable & adequate Anesthetic Complications: no major complications apparent and Pt Satisfied with anesthetic care
[2021-11-03] MEDS: MIDODRINE HCL 2.5 MG TAB PO SCH ×2 (14:33→17:24)
[2021-11-03] MEDS: GABAPENTIN 300 MG CAP PO SCH ×3 (14:33→20:44)
[2021-11-03] MEDS: FOLIC ACID 1 MG TAB PO SCH (14:40)
[2021-11-03] MEDS: PANTOprazole 40 MG TAB PO SCH (14:41)
[2021-11-03] MEDS: TAMSULOSIN HCL 0.4 MG CAP PO SCH (14:41)
[2021-11-03] MEDS: ATORVASTATIN 40 MG TAB PO SCH (14:42)
[2021-11-03] MEDS: ASPIRIN 81 MG ECTAB PO SCH (14:42)
[2021-11-03] MEDS: UMECLIDINIUM/VILANTEROL 62.5/25MCG 7 PUFFS/INHALER INH SCH (14:43)
[2021-11-03] MEDS: FLUTICASONE FUROATE 100MCG 14 PUFFS/INHALER INH SCH (14:43)
[2021-11-03] MEDS: HYDROCORTISONE 10 MG TAB PO SCH ×2 (17:22→17:24)
[2021-11-03] MEDS: HYDROCORTISONE SOD 50 MG in SYRINGE 0 ML IV SCH ×2 (17:25→21:23)
[2021-11-03] MEDS: buPROPion HCl 100 MG TABLET PO SCH (17:25)
[2021-11-03] MEDS: MELATONIN 3 MG TAB PO SCH (20:44)
[2021-11-03] MEDS: QUEtiapine FUMARATE 25 MG TABLET PO SCH (20:44)
--- NOTE | 2021-11-03 22:12 | Hospitalist Progress Note ---
Date of Service November 03, 2021 Assessment & Plan (1) Fall: Plan: Appears from chronic ambulatory dysfunction from transfer. Fortunately no apparent injuries from the fall. PT/OT (2) Hypoxia: Plan: Resolved without any specific treatment Suspect from movement of chronic pleural effusion after fall. (3) Esophageal stricture: Plan: Severe ongoing dysphagia. Will place on minced and moist diet for now but may have to scale down to liquids if unable to tolerate this. Previously diagnosed on EGD in April 2021. Severe on repeat EGD on October 27 however he was taking clopidogrel therefore this couldn't be dilated. Restart clopidogrel in AM s/p EGD with dilation today, pantoprazole increase to 40mg PO BID, repeat EGD in 2 weeks for retreatment Full liquid diet now then advance as tolerated (4) Left sided abdominal pain: Plan: Constipation on CT A/P Improved following endoscopy therefore suspect some of the pain was his distended stomach. Still without BM after mineral oil and milk and molasses enema Restart MiraLAX and will add milk of magnesia and Senna in AM (5) Adrenal insufficiency: Plan: Mildly hypotensive on arrival to the ER. No specific etiology suspected to exacerbate this therefore will place back on his usual hydrocortisone. Continue on reduced dose of hydrocortisone 10 mg p.o. every morning and 5 mg in the afternoon. Stress dose steroids as below following EGD due to hypotension (6) Peripheral neuropathy: Plan: Continue gabapentin 300 mg PO TID (7) COPD (chronic obstructive pulmonary disease): Plan: Continue Trelegy Ellipta or hospital formulary equivalent Do not suspect acute exacerbation and further steroids deferred. (8) Benign prostate hyperplasia: Plan: Continue tamsulosin 0.4mg PO daily (9) Hypotension: Plan: Prior history of orthostatic hypotension Continue midodrine 5mg TID More hypotensive following endoscopy suggesting need for stress dose steroids - started on hydrocortisone 50mg IV q6h for 4 doses Plan: VTE Prophylaxis - Restart on Lovenox tomorrow (on hold for endoscopy today) Diet - full liquids, advance diet as tolerated Disposition - Continued admission to med/surg, need stress dose steroids and severe constipation and PT/OT Admission and Anticipated Discharge Date Admission Date: October 30, 2021 Subjective Still not had a bowel movement. CT A/P last night showing constipation only despite increase in lactate. Patient seen after endoscopy and left sided abdominal pain appears improved. Hypotensive after EGD however patient denies any dizziness. Review of Systems Review of Systems: All systems reviewed & are unremarkable except as noted in Subjective Physical Exam Constitutional: well developed and + frail appearing; + not well nourished and no acute distress Neck: trachea midline, no thyromegaly Respiratory: normal respiratory effort, lungs clear to auscultation normal respiratory effort Auscultation: + breath sounds absent (left base) Cardiovascular: RRR, no murmur, no edema Gastrointestinal (Abdomen): Inspection/Auscultation: normal bowel sounds Percussion/Palpation: + abdomen tender (left sided, improved from yesterday) and abdomen soft; no guarding and abdomen not rigid Musculoskeletal: no cyanosis or clubbing, extremities motor strength 5/5 Skin: no rashes, warm and dry Psychiatric: A+Ox3, euthymic affect Results & Data Results & Data ([facility]) Vital Signs (Past 12 Hours) Vital Signs Temp Pulse Resp BP Pulse Ox 11/03/21 16:33 36.3 C L 63 16 95/59 L 98 11/03/21 12:40 80 16 98/69 L 97 11/03/21 12:25 92 H 16 93/63 L 97 11/03/21 12:10 82 16 101/66 99 11/03/21 11:45 98 H 16 98 11/03/21 11:12 36.4 C L 102 H 18 124/88 98 PG Care Time/CCT Total # of Minutes Spent Total Time Spent with Patient: Total time spent is greater than 50% in coordination of care (as documented) at patient's floor/unit and/or counseling patient: Coding Level of Care Code 78012 Subseq Hosp Care Lvl 2 Diagnoses Fall W19.XXXA Hypoxia R09.02 Esophageal stricture K22.2 Left sided abdominal pain R10.9 Adrenal insufficiency E27.40 Peripheral neuropathy G62.9 COPD (chronic obstructive pulmonary disease) J44.9 COPD type: unspecified COPD Benign prostate hyperplasia N40.0 Hypotension I95.9 (1) COPD (chronic obstructive pulmonary disease) COPD type: unspecified COPD Qualified Code(s): J44.9 - Chronic obstructive pulmonary disease, unspecified
[2021-11-04] MEDS: HYDROCORTISONE SOD 50 MG in SYRINGE 0 ML IV SCH ×2 (00:25→06:04)
[2021-11-04] MEDS ORDERED: MAGNESIUM HYDROXIDE SUSP 30 ML UDC PO ONE (07:00)
[2021-11-04] MEDS: MIDODRINE HCL 2.5 MG TAB PO SCH ×2 (07:26→13:58)
[2021-11-04] MEDS: buPROPion HCl 100 MG TABLET PO SCH (07:27)
[2021-11-04] MEDS: ATORVASTATIN 40 MG TAB PO SCH (07:27)
[2021-11-04] MEDS: HYDROCORTISONE 10 MG TAB PO SCH (07:28)
[2021-11-04] MEDS: FOLIC ACID 1 MG TAB PO SCH (07:28)
[2021-11-04] MEDS: ASPIRIN 81 MG ECTAB PO SCH (07:28)
[2021-11-04] MEDS: TAMSULOSIN HCL 0.4 MG CAP PO SCH (07:29)
[2021-11-04] MEDS: GABAPENTIN 300 MG CAP PO SCH ×2 (07:29→13:58)
[2021-11-04] MEDS: FLUTICASONE FUROATE 100MCG 14 PUFFS/INHALER INH SCH (07:31)
[2021-11-04] MEDS: UMECLIDINIUM/VILANTEROL 62.5/25MCG 7 PUFFS/INHALER INH SCH (07:31)
[2021-11-04] MEDS: POLYETHYLENE (MIRALAX) 17 GM PACK PO SCH (07:34)
[2021-11-04] MEDS: ENOXAPARIN INJ 40 MG/0.4 ML SYR SQ SCH (07:35)
[2021-11-04] MEDS: AVODART - ORDER AWAITING ACTION SCH (07:35)
[2021-11-04] MEDS ORDERED: PANTOprazole 40 MG TAB PO SCH (09:00)
[2021-11-04] MEDS ORDERED: SENNA 8.6 MG TAB PO SCH (09:00)
[2021-11-04] MEDS ORDERED: bisacodyL 10 MG SUPP PR STA (13:07)
--- NOTE | 2021-11-04 13:34 | Discharge Summary ---
Date of Service November 04, 2021 Admission HPI Per Admitting Provider Roberth Luther is a 66 year old male who presents to the ER after a fall this morning while trying to get from his bed to his wheelchair. He denies any pain following the fall but his carers were unable to get him back into his wheelchair therefore called EMS. Due to mild hypoxia with O2 sats 85% and some confusion he was brought to the emergency room. Reportedly his confusion appeared to improve following improvement of O2 sats with oxygen. She patient denies any shortness of breath, chest pain, cough, fever or chills. He also notes ongoing dysphagia. Recently underwent EGD on October 27 showing esophageal stenosis however he could not have it dilated at that time due to being on clopidogrel. In the ER he was noted to be slightly hypotensive with BP 96/61 therefore he was given solu-medrol 40mg IV for concern of adrenal insufficiency and COPD in addition to 1L NSS bolus and is now normotensive. O2 sats have improvement > 90% on 2LPM O2. He was referred to medicine for admission and ongoing management of hypoxia and pleural effusion. Principal Diagnosis Hypoxia - following fall and likely shift of pleural effusion Severe esophageal stenosis Constipation Discharge Exam Constitutional well developed and + frail appearing; + not well nourished and no acute distress ENMT external ear and nose normal, oropharynx normal Neck trachea midline, no thyromegaly Respiratory normal respiratory effort, lungs clear to auscultation normal respiratory effort Auscultation: + breath sounds absent (left base) Cardiovascular RRR, no murmur, no edema Gastrointestinal (Abdomen) Inspection/Auscultation: normal bowel sounds Percussion/Palpation: abdomen soft; abdomen nontender, no guarding and abdomen not rigid Musculoskeletal no cyanosis or clubbing, extremities motor strength 5/5 Skin no rashes, warm and dry Psychiatric A+Ox3, euthymic affect Discharge Data Allergies Allergy/AdvReac Type Severity Reaction Status Date / Time ciprofloxacin Allergy Mild RASH Verified 11/18/21 15:23 vancomycin Allergy Mild RASH Verified 11/18/21 15:23 sulfamethoxazole Allergy Unknown Unknown Verified 11/18/21 15:23 [From Bactrim] trimethoprim [From Bactrim] Allergy Unknown Unknown Verified 11/18/21 15:23 Consultations 10/30/21 14:46 ED Decision to Admit Stat 10/30/21 22:52 Consult Gastroenterology Routine Procedures Performed Operation Date: 11/03/21 16:30 Actual Procedures p EGD Dilatation - Andres River Case, DO Ordered Studies 10/30/21 12:43 CT head/brain wo con Stat IMPRESSION: No acute intracranial findings. No change in appearance of the brain. 11/02/21 17:59 CT abd pelvis IV con only Urgent IMPRESSION: 1. Moderate to large amount of well-formed stool within the proximal to mid colon. 2. No evidence of bowel obstruction. 3. Chronic loculated left pleural effusion, unchanged. 4. Normal appendix. 5. Additional findings as described above. Hospital Course (1) Fall: Roberth Luther is a 66 year old male admitted to [facility] from October 30 - November 04, 2021 due to a fall. He was noted to be hypoxic which resolved with conservative treatment using incentive spirometry suggesting this was due to just a shift in his chronic pleural effusion. He should continue to follow up with his outpatient patent paralegal regarding this. He was also noted to be significantly malnourished due to esophageal stenosis. Given nausea and vomiting associated with this we elected to perform esophageal dilatation as an inpatient procedure. He is now tolerating a minced and moist diet and can continue to advance his diet as tolerated. He was started on pantoprazole 40mg PO twice daily instead of lansoprazole or omeprazole to help prevent recurrence. He should follow up with gastroenterology as outpatient for repeat endoscopy is a few weeks and will likely need repeated dilations. He did not have a bowel movement during his admission however he is pain free. He was started on MiraLAX three times a day in addition to senna until he has a large bowel movement and he should adjust laxatives. He had stress dose steroids around his EGD due to adrenal insufficiency. Hydrocortisone dose was adjusted to 10mg in the morning and 5mg in the afternoon on discharge. Hydrocortisone was recently started in the last year and he is yet to follow up with endocrinology for this. (2) Hypoxia: (3) Esophageal stricture: (4) Left sided abdominal pain: (5) Adrenal insufficiency: (6) Peripheral neuropathy: (7) COPD (chronic obstructive pulmonary disease): (8) Benign prostate hyperplasia: (9) Hypotension: Total Time Total Time Spent Total Time Spent (In Minutes): 35 Discharge Plan Discharge Items Patient Disposition: Home - Home Health Services Reason For Visit: HYPOXIA, DYPHAGIA Discharge Diagnosis: Hypoxia - following fall and likely shift of pleural effusion Severe esophageal stenosis Constipation Activity: Resume your previous activity Non-emergency contact: Primary Care Provider Call non-emergency contact if: you have any medication questions and your symptoms worsen Follow-up/Referrals: John Johnson CRNP [Primary Care Provider] - 11/10/21 8:20 am Andres Blake DO [Physician] - (Follow up EGD to be arranged in 2 weeks) Diet: Regular Diet Texture: Mechanical soft (ground) Addtl Attending Provider Instructions: You were admitted to [facility] from October 30 - November 04, 2021 due to a fall. You were noted to have low oxygen level which resolved using incentive spirometery only suggesting this was due to just a shift in your pleural effusion. Please continue to follow up with your outpatient patent paralegal regarding this. You were also noticed to be significantly malnourished due to esophageal stenosis. Given nausea and vomiting associated with this we elected to perform esophageal dilatation as an inpatient procedure. You are tolerating a minced and moist diet follow this and can continue to advance your diet as tolerated. Please take pantoprazole 40mg PO twice daily instead of lansoprazole or omeprazole to help prevent recurrence. Please follow up with gastroenterology as you will need repeated endoscopies to make sure this doesn't recur. You did not have a bowel movement during you admission however are pain free currently. Please continue MiraLAX three times a day in addition to senna until you have a large bowel movement. Your hydrocortisone dose was adjusted to 10mg in the morning and 5mg in the afternoon. Please follow up with endocrinology regarding this. Pending Studies at Discharge: No Stand-Alone Forms: My [facility], Smoking Cessation Medications and DC Order Prescriptions: New sennosides [Senokot] 8.6 mg Tablet 8.6 mg PO QAM Qty: 7 RF: 0 polyethylene glycol 3350 [Miralax] 17 gram Powder In Packet 17 g PO TID Qty: 21 RF: 0 pantoprazole 40 mg Tablet,Delayed Release (Dr/Ec) 40 mg PO BID Qty: 60 RF: 0 hydrocortisone [Cortef] 10 mg Tablet See Rx Instructions .ROUTE .COMPLEX Qty: 45 RF: 0 Continued (DME) miscellaneous medical supply Misc See Dose Instructions .ROUTE .MEDSUPPLY Qty: 1 RF: 0 albuterol sulfate [Ventolin HFA] 90 mcg/actuation HFA aerosol inhaler 2 puff INH QID PRN (Reason: shortness of breath or wheezing) Qty: 18 RF: 4 atorvastatin 40 mg tablet 40 mg PO QAM 30 Days Qty: 90 RF: 1 clopidogrel 75 mg tablet 75 mg PO QAM 30 Days Qty: 90 RF: 1 midodrine 5 mg tablet 5 mg PO TID Qty: 90 RF: 0 melatonin 5 mg tablet 5 mg PO HS RF: 0 gabapentin 300 mg capsule 300 mg PO TID RF: 0 tamsulosin 0.4 mg capsule 0.4 mg PO QAM RF: 0 aspirin 81 mg tablet,chewable 81 mg PO QAM RF: 0 dutasteride [Avodart] 0.5 mg capsule 0.5 mg PO QAM RF: 0 bupropion HCl 100 mg tablet 100 mg PO QAM RF: 0 folic acid 1 mg tablet 1,000 mcg PO QAM RF: 0 Trelegy Ellipta 100-62.5-25 mcg blister with device 1 inh inhalation QAM RF: 0 Changed quetiapine 25 mg tablet 25 mg PO HS Qty: 0 RF: 0 Discontinued hydrocortisone [Cortef] 10 mg tablet 15 mg PO QAM 90 Days Qty: 135 RF: 1 omeprazole magnesium [Prilosec OTC] 20 mg tablet,delayed release (DR/EC) 20 mg PO QAM RF: 0 lansoprazole [Prevacid] 30 mg capsule,delayed release(DR/EC) 30 mg PO QAM RF: 0 Discharge Orders: Discharge Order (Routine); Ordered 11/04/21 Ordered By: Omid Cole Admission Data Admit Date/Time: 10/30/21 15:22 Attending Provider: Omid Cole Admit Provider: Omid Cole Primary Care Provider: John Johnson Other Providers: Omid Cole ; Asim Randolph ; [facility],Home Healthcare ; [facility],Referral Center ; Krista Rojas Other Interventions: Discharge Summary Assessment (RN) Last Done: 11/04/21 14:22 Coding Level of Care Code D/C DAY MANAGEMENT >30 MINS Diagnoses Fall W19.XXXA Hypoxia R09.02 Esophageal stricture K22.2 Left sided abdominal pain R10.9 Adrenal insufficiency E27.40 Peripheral neuropathy G62.9 COPD (chronic obstructive pulmonary disease) J44.9 COPD type: unspecified COPD Benign prostate hyperplasia N40.0 Hypotension I95.9
[2021-11-15 16:53] LABS: Hemoglobin 10.7 g/dL (14.0-18.0); Red Blood Count 4.21 M/uL (4.7-6.1)
[2021-11-15 16:54] LABS: Hematocrit (blood only) 32.9 % (42-52)
== END 2021-11-04 15:24 | disposition home health service (06) ==
LOC: EDSEX → MERGE 12:33 → ED 12:33 → 3N 15:22 → INTOOBSV 15:22 → EDINP 21:11 → 3N 21:46

== ENCOUNTER 2022-01-11 17:56 | Inpatient (IN) ==
[2022-01-11] MEDS ORDERED: ALBUT/IPRATROP 3MG/0.5MG NEB 3 ML VIAL ONE (17:59)
[2022-01-11] MEDS ORDERED: ALBUTEROL 0.083% NEBU SOLN 3 ML VIAL NEB STA (18:00)
[2022-01-11] MEDS ORDERED: HYDROCORTISONE SOD SUCCINATE 100 MG/2 ML VIAL IV STA (18:02)
--- NOTE | 2022-01-11 18:11 | Emergency Department Note ---
Impression & Plan Respiratory failure, Pleural effusion, Hypoxia, AMS (altered mental status) ED Provider Note NAME: JAMARCUS PAYTON JR AGE: 66 SEX: M : 1955 ARRIVES VIA: Ambulance INFORMANT: Patient ED PROVIDER(S): Romulo Kruger DO CHIEF COMPLAINT: Altered mental status and short of breath HPI: Patient is a 66-year-old male with a past medical history of colon cancer, CKD, pleural effusion, chronic respiratory failure, COPD, hypertension, adrenal insufficiency, bilateral carotid occlusion, esophageal stenosis who presents the ER who was found to be ashen reagan with pulse ox in the 60s. He was placed on nonrebreather and a nasal trumpet brought in.He denies any headache or change in vision. No chest pain or shortness of breath. No nausea, vomiting, or diarr hea. No other exacerbating or remitting factors. Per EMS he was found ashen reagan and was on his 3 L at 82%. He was disoriented and confused. ROS: See above HPI for pertinent positives & negatives. A total of 10 systems reviewed and were otherwise negative. PAST MEDICAL HISTORY:See Below PAST SURGICAL HISTORY:See Below FAMILY HISTORY:See Below SOCIAL HISTORY:See Below HOME MEDICATIONS:See Below ALLERGIES:See Below VITALS:See Below PHYSICAL EXAMINATION: GENERAL: Sitting up in bed, alert, Ill-appearing, disheveled, EYE EXAM: normal conjunctiva. OROPHARYNX: mucous membranes are dry NECK: supple, no nuchal rigidity, no adenopathy, non-tender LUNGS: Clear to auscultation. Normal chest wall mechanics HEART: no murmurs, S1 normal and S2 normal ABDOMEN: abdomen soft, non-tender, normo-active bowel sounds, no masses, no rebound or guarding. UPPER EXTREMITIES: upper extremities are grossly normal. LOWER EXTREMITIES: No pitting edema. NEURO EXAM: Confused, cranial nerves II-XII grossly intact, normal speech, no gross weakness of arms, no gross weakness of legs. MEDICAL DECISION MAKING: Patient is a 66-year-old woman male who presents the ER who was found to be hypoxic and confused on nonrebreather. Initially when he was found by EMS he was found to be ashen reagan and nasal trumpet was placed as well as a nonrebreather. His mentation has improved throughout transit. Upon presentation he was placed on nonrebreather in the ER and given a neb treatment. IV was established blood work was obtained. Labs show no significant leukocytosis or anemia. INR unremarkable. BMP with mild hyponatremia at 131. LFTs bilirubin was unremarkable. Troponin was negative. Pro-Rigoberto and lipase was normal. COVID was negative. ABG with a pH of 7.3 with CO2 of 38 with an O2 of 126.This x-ray with worsening effusion on the left as well as an effusion on the right. His mentation continued to improve but he was still confused while in the ER. CT of the head was unremarkable. He was discussed with Dr. Raj Mcclain for further evaluation admitted for further work-up. Triage Nursing notes reviewed. Limited review of prior medical records performed Vital Signs: reviewed and remarkable for no significant abnormalities Differential diagnosis: Differential diagnoses includes but is not limited to pneumonia, bronchitis, COPD/Asthma exacerbation, pneumothorax, pulmonary embolism, congestive heart failure, acute coronary syndrome ER treatment provided: See below Diagnostics interpreted by me: ECG:Sinus rhythm rate 76 Normal axis No PVCs QTC 481 Cardiac Monitoring: An order was placed for continuous cardiac monitoring. The monitor shows a rate of 90 with sinus rhythm. Laboratory studies: As stated above and show below. Imaging studies: CT head was negative X-ray as described above Consultation(s): Discussed with Raj Mcclain as described above Procedures: none Critical Care: None Past Med/Surg History Medical History Ataxic gait Bacteremia due to methicillin resistant Staphylococcus aureus hx? patient unsure of details Benign prostate hyperplasia Bilateral carotid artery occlusion Bipolar disorder Chlamydial proctitis hx 2018? Confusion poor historian COPD (chronic obstructive pulmonary disease) with chronic bronchitis Encounter for screening for malignant neoplasm of colon Encounter for screening for malignant neoplasm of rectum Esophageal stenosis GERD (gastroesophageal reflux disease) Hepatic steatosis Hiatal hernia History of COVID-19 07/2020 ([facility]) H[facility]PITALIZED AT [facility] History of esophageal dilatation History of lung cancer (01/2016) 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 HTN (hypertension) Hypertension Medical marijuana use On anticoagulant therapy plavix daily On home oxygen therapy 3L n/c prn for SOB Osteomyelitis Peripheral arterial disease Peripheral neuropathy Poor historian Recurrent left pleural effusion s/p thoracentesis August 2018 Restless leg syndrome Schizoaffective disorder Surgical History H/O foot surgery LEFT HEEL REMOVAL FROM PRESSURE ULCER History of bronchoscopy (01/2016) History of colonoscopy History of esophagogastroduodenoscopy (EGD) with dilation (last 11/23/21 & 10/2021) History of herniorrhaphy History of lobectomy of lung LOWER LEFT LUNG S/P peripheral artery angioplasty with stent placement (06/2016) 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, 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 S/P thoracentesis (05/2019) L pleural effusion Status post femorofemoral bypass surgery (06/2016) [place] teeth removed Family History Brother Myocardial infarction Father Myocardial infarction Other Cancer Family history non-contributory Lung disease No family history of adverse response to anesthesia Denies family history of Tuberculosis Ovarian cancer Prostate cancer Diabetes Heart disease Allergies Breast cancer Emphysema, unspecified Lung cancer Colorectal cancer Asthma Social History Smoking Status: Unknown if ever smoked Tobacco Type: Cigarettes Age Started Using Tobacco: 10; packs per day: 0.5; Years Smoked: 30; Cigarettes Per Day: 6-8 DAILY; Second Hand Exposure: Yes (hx); Hx Alcohol Use: No Hx Substance Use: Yes (medical THC) Prescribed Medications: Marijuana Last Used Substance: Days (ago) Preferred Language: British Communication Ability: Effective Visual Impairment: No Limitations Hearing Ability: Normal Retail Loss Prevention Specialist Required: No Beliefs That Will Affect Care: None marital status: single Current Living Situation: Alone Current Living Situation Comment: [address] current occupational status: disabled How many Children do You have: 2 Feels Safe at Home: Yes Childhood Exposure to Second-Hand Smoke: Yes Diet Comment: regular caffeine: Yes (coffee 1 pot a day) during the past year weight has: remained stable Dental Care, Regularly: No Physical Activity Frequency: Does not Exercise Seatbelt Use: always Sunscreen Use: No Assistive Devices: Denture - Upper, Denture - Lower, Glasses and Wheelchair Allergies Allergies Allergy/AdvReac Type Severity Reaction Status Date / Time ciprofloxacin Allergy Mild RASH Verified 01/11/22 19:05 vancomycin Allergy Mild RASH Verified 01/11/22 19:05 sulfamethoxazole Allergy Unknown Unknown Verified 01/11/22 19:05 [From Bactrim] trimethoprim [From Bactrim] Allergy Unknown Unknown Verified 01/11/22 19:05 Home Meds Home Medications Medication Instructions Recorded Confirmed melatonin 5 mg tablet 5 mg PO HS 08/13/21 01/11/22 aspirin 81 mg chewable tablet 81 mg PO QAM 10/01/21 01/11/22 bupropion HCl 100 mg tablet 100 mg PO QAM 10/01/21 01/11/22 dutasteride 0.5 mg capsule 0.5 mg PO QAM 10/01/21 01/11/22 (Avodart) fluticasone fur. 100 mcg-umeclid 1 inh inhalation QAM 10/01/21 01/11/22 62.5 mcg-vilant 25 mcg inhalat.powder (Trelegy Ellipta) folic acid 1 mg tablet 1,000 mcg PO QAM 10/01/21 01/11/22 tamsulosin 0.4 mg capsule 0.4 mg PO QAM 10/01/21 01/11/22 gabapentin 300 mg capsule 300 mg PO TID 10/22/21 01/11/22 lansoprazole 30 mg capsule,delayed 30 mg PO QAM 01/11/22 01/11/22 release omeprazole 20 mg capsule,delayed 20 mg PO QAM 01/11/22 01/11/22 release pantoprazole 40 mg tablet,delayed 40 mg PO AMHS 01/11/22 01/11/22 release Previous Rx's Medication Instructions Recorded miscellaneous medical supply #1 ea 08/07/21 albuterol sulfate 90 mcg/actuation 2 puff inhalation QID PRN 08/13/21 aerosol inhaler (Ventolin HFA) shortness of breath or wheezing #18 grams atorvastatin 40 mg tablet 40 mg PO QAM 30 days #90 tabs 09/04/21 clopidogrel 75 mg tablet 75 mg PO QAM 30 days #90 tabs 09/04/21 midodrine 5 mg tablet 5 mg PO TID #90 tabs 10/28/21 hydrocortisone 10 mg tablet See Rx Instructions .Route 11/04/21 (Cortef) .COMPLEX #45 tabs polyethylene glycol 3350 17 gram 17 g PO TID #21 ea 11/04/21 oral powder packet (Miralax) quetiapine 25 mg tablet 25 mg PO HS #0 tabs 11/04/21 sennosides 8.6 mg tablet (Senokot) 8.6 mg PO QAM #7 tabs 11/04/21 Results & Data (ED) Vital Signs Vital Signs - 24 hr 01/11/22 18:05 01/11/22 17:59 01/11/22 18:34 Temperature Temperature Source Pulse Rate 70 70 Pulse Rate [Finger] Pulse Rate from SpO2 Sensor Pulse Rhythm Regular Pulse Rhythm [Finger] Pulse Strength [Finger] Respiratory Rate 18 18 Respiratory Effort / Characteristics Non-Labored Respiratory Depth Normal Respiratory Pattern Regular Blood Pressure 82/52 L Blood Pressure [Left Arm] Blood Pressure Mean 62 Blood Pressure Mean [Left Arm] Blood Pressure Position [Left Arm] Pulse Oximetry 100 100 100 Oxygen Delivery Method Non-rebreather Non-rebreather Nasal Cannula Oxygen Flow Rate 15 15 6 Sepsis Recent Fever Within 48 Hours No Sepsis New/Unexplained Change in Mental Status N/A Sepsis Action Taken by Nursing No Action Required 01/11/22 18:04 01/11/22 18:15 01/11/22 18:27 Temperature Temperature Source Pulse Rate 73 77 71 Pulse Rate [Finger] Pulse Rate from SpO2 Sensor 68 Pulse Rhythm Pulse Rhythm [Finger] Pulse Strength [Finger] Respiratory Rate 31 H 20 13 Respiratory Effort / Characteristics Respiratory Depth Respiratory Pattern Blood Pressure 75/51 L Blood Pressure [Left Arm] Blood Pressure Mean 59 Blood Pressure Mean [Left Arm] Blood Pressure Position [Left Arm] Pulse Oximetry 94 79 L Oxygen Delivery Method Oxygen Flow Rate Sepsis Recent Fever Within 48 Hours Sepsis New/Unexplained Change in Mental Status Sepsis Action Taken by Nursing 01/11/22 18:34 01/11/22 18:30 01/11/22 18:45 Temperature 36.4 C L Temperature Source Rectal Pulse Rate 70 77 Pulse Rate [Finger] Pulse Rate from SpO2 Sensor 69 77 Pulse Rhythm Pulse Rhythm [Finger] Pulse Strength [Finger] Respiratory Rate 16 21 Respiratory Effort / Characteristics Respiratory Depth Respiratory Pattern Blood Pressure 68/50 L 144/80 H Blood Pressure [Left Arm] Blood Pressure Mean 56 101 Blood Pressure Mean [Left Arm] Blood Pressure Position [Left Arm] Pulse Oximetry 96 100 Oxygen Delivery Method Nasal Cannula Oxygen Flow Rate 6 Sepsis Recent Fever Within 48 Hours Sepsis New/Unexplained Change in Mental Status Sepsis Action Taken by Nursing 01/11/22 18:47 01/11/22 19:20 01/11/22 21:16 Temperature Temperature Source Pulse Rate Pulse Rate [Finger] 78 81 93 H Pulse Rate from SpO2 Sensor Pulse Rhythm Pulse Rhythm [Finger] Regular Pulse Strength [Finger] Normal Respiratory Rate 26 H 16 16 Respiratory Effort / Characteristics Spontaneous Non-Labored Spontaneous Non-Labored Spontaneous Respiratory Depth Normal Normal Respiratory Pattern Blood Pressure Blood Pressure [Left Arm] 106/71 120/91 Blood Pressure Mean Blood Pressure Mean [Left Arm] 82 100 Blood Pressure Position [Left Arm] Lying Pulse Oximetry 100 100 96 Oxygen Delivery Method Non-rebreather Nasal Cannula Nasal Cannula Oxygen Flow Rate 15 6 6 Sepsis Recent Fever Within 48 Hours Sepsis New/Unexplained Change in Mental Status Sepsis Action Taken by Nursing Laboratory Data Result diagrams: 01/11/22 18:32 01/11/22 18:32 Lab Results 01/11/22 01/11/22 01/11/22 Range/Units 18:30 18:32 18:32 WBC 7.24 (4.8-10.8) K/ul RBC 4.68 (4.63-6.08) M/uL Hgb 12.1 L (14.0-18.0) g/dl Hct 36.1 L (40.1-51.0) % MCV 77.1 L (80.0-100.0) fL MCH 25.9 (25.0-34.0) pg MCHC 33.5 (32.0-36.0) g/dL RDW Std Deviation 54.2 H (36.4-46.3) fL RDW Coeff of Raul 19.5 H (11.5-14.5) % Plt Count 208 (130-400) K/uL MPV 10.1 (9.4-12.4) fL Immature Gran % (Auto) 0.3 % Neut % (Auto) 84.3 % Lymph % (Auto) 7.3 % Garza % (Auto) 6.2 % Eos % (Auto) 1.5 % Baso % (Auto) 0.4 % Neut # (Auto) 6.10 (1.4-6.5) K/uL Lymph # (Auto) 0.53 L (1.2-3.4) K/uL Garza # (Auto) 0.45 (0.24-0.82) K/uL Eos # (Auto) 0.11 (0-0.50) K/uL Baso # (Auto) 0.03 (0-0.2) K/uL Immature Gran # (Auto) 0.02 (0.00-0.02) K/uL PT (9.0-12.0) Seconds INR (0.9-1.1) ABG pH (7.35-7.45) ABG pCO2 (35-46) mmHg ABG pO2 (80-95) mmHg ABG HCO3 (19-24) mmol/L ABG O2 Saturation (90-95) % ABG Base Excess (-9-1.8) mEq/L Kentrell Test (Pos) Oxygen Given Sodium 131 L (136-145) mmol/L Potassium 3.6 (3.5-5.1) mmol/L Chloride 103 (98-107) mmol/L Carbon Dioxide 21 (21-32) mmol/L Anion Gap 7 (3-11) BUN 11 (6-23) mg/dl Creatinine 0.87 (0.6-1.4) mg/dl Est Cr Clr Drug Dosing Not Reportable Est GFR ( Amer) 103.5 ml/min Est GFR (Non-Af Amer) 89.3 ml/min BUN/Creatinine Ratio 12.6 (10-20) Glucose 106 H (70-99(Fasting)) mg/dl Calcium 8.7 (8.5-10.1) mg/dl Total Bilirubin 0.6 (0.2-1.0) mg/dl AST 19 (13-39) U/L ALT 12 (7-52) U/L Alkaline Phosphatase 79 (34-104) U/L Total Creatine Kinase 112 (30-223) U/L Troponin I High Sens 6.5 (0-20) pg/ml B-Natriuretic Peptide (0-100) pg/ml Total Protein 6.7 (6.0-8.3) gm/dl Albumin 3.5 (3.4-5.0) gm/dl Globulin 3.2 (2.5-4.0) gm/dl Albumin/Globulin Ratio 1.1 (0.9-2) Lipase 20 (11-82) U/L SARS-CoV-2, RNA, NAAT NEGATIVE (NEGATIVE) 01/11/22 01/11/22 01/11/22 Range/Units 18:32 18:32 20:21 WBC (4.8-10.8) K/ul RBC (4.63-6.08) M/uL Hgb (14.0-18.0) g/dl Hct (40.1-51.0) % MCV (80.0-100.0) fL MCH (25.0-34.0) pg MCHC (32.0-36.0) g/dL RDW Std Deviation (36.4-46.3) fL RDW Coeff of Raul (11.5-14.5) % Plt Count (130-400) K/uL MPV (9.4-12.4) fL Immature Gran % (Auto) % Neut % (Auto) % Lymph % (Auto) % Garza % (Auto) % Eos % (Auto) % Baso % (Auto) % Neut # (Auto) (1.4-6.5) K/uL Lymph # (Auto) (1.2-3.4) K/uL Garza # (Auto) (0.24-0.82) K/uL Eos # (Auto) (0-0.50) K/uL Baso # (Auto) (0-0.2) K/uL Immature Gran # (Auto) (0.00-0.02) K/uL PT 11.7 (9.0-12.0) Seconds INR 1.1 (0.9-1.1) ABG pH 7.37 (7.35-7.45) ABG pCO2 38 (35-46) mmHg ABG pO2 126 H (80-95) mmHg ABG HCO3 22 (19-24) mmol/L ABG O2 Saturation 99.9 H (90-95) % ABG Base Excess -2.9 (-9-1.8) mEq/L Kentrell Test Pos (Pos) Oxygen Given 60 Sodium (136-145) mmol/L Potassium (3.5-5.1) mmol/L Chloride (98-107) mmol/L Carbon Dioxide (21-32) mmol/L Anion Gap (3-11) BUN (6-23) mg/dl Creatinine (0.6-1.4) mg/dl Est Cr Clr Drug Dosing Est GFR ( Amer) ml/min Est GFR (Non-Af Amer) ml/min BUN/Creatinine Ratio (10-20) Glucose (70-99(Fasting)) mg/dl Calcium (8.5-10.1) mg/dl Total Bilirubin (0.2-1.0) mg/dl AST (13-39) U/L ALT (7-52) U/L Alkaline Phosphatase (34-104) U/L Total Creatine Kinase (30-223) U/L Troponin I High Sens (0-20) pg/ml B-Natriuretic Peptide 78 (0-100) pg/ml Total Protein (6.0-8.3) gm/dl Albumin (3.4-5.0) gm/dl Globulin (2.5-4.0) gm/dl Albumin/Globulin Ratio (0.9-2) Lipase (11-82) U/L SARS-CoV-2, RNA, NAAT (NEGATIVE) Administered Medications Discontinued Medications Albuterol (Albut/Ipratrop 3mg/0.5mg Neb 3 Ml Vial) Confirm Administered Dose 3 ml .ROUTE .STK-MED ONE Stop: 01/11/22 18:00 Last Admin: 01/11/22 18:15 Dose: 3 ml Documented By: SUSANA Albuterol (Albuterol 0.083% Nebu Soln 3 Ml Vial) 5 mg NEB NOW STA; Protocol Stop: 01/11/22 18:01 Last Admin: 01/11/22 18:29 Dose: Not Given Documented By: ANDREW Hydrocortisone Sodium Succinate (Hydrocortisone Sod Succinate 100 Mg/2 Ml Vial) 100 mg IV NOW STA Stop: 01/11/22 18:03 Last Admin: 01/11/22 18:27 Dose: 100 mg Documented By: ANDREW Sodium Chloride (Nss 1000ml) 2,000 mls @ 999 mls/hr IV .Q2H1M ONE Stop: 01/11/22 20:13 Last Admin: 01/11/22 18:26 Dose: 999 mls/hr Documented By: ANDREW Imaging Data Radiologist's Impression: Chest X-Ray 01/11/22 17:59 XR chest 1V portable CLINICAL HISTORY: Chest Pain. Shortness of breath COMPARISON STUDY: 10/30/2021 TECHNIQUE: 1 view of the chest FINDINGS: Single frontal view of the chest demonstrates the heart to again be enlarged. Compared to the previous examination, there are now bilateral pleural effusions, left greater than right and bibasilar atelectasis, again left greater than right. There is also mild central vascular congestion. The right upper lobe is clear. There is no acute osseous pathology. IMPRESSION: 1. Interval development of bilateral pleural effusions, left greater than right and bibasilar atelectasis, left greater than right. 2. There is also mild central vascular congestion. ACT 112: Negative or not required by law. Electronically signed by: Peewee Holland M.D. 01/11/2022 6:[address] 01/11/22 18:47 CT head/brain wo con CLINICAL HISTORY: ams COMPARISON STUDY: 10/30/2021 CT DOSE: 691.05 mGy.cm TECHNIQUE: Standard CT of the Brain was performed without IV contrast. A dose lowering technique was utilized adhering to the principles of ALARA. FINDINGS: Extraaxial space: There is no evidence for subdural hematoma. There are no extra-axial fluid collections. Ventricles and cisterns: The ventricles are again mildly dilated bilaterally. There is no evidence for midline shift or mass effect. Parenchyma: There is no subarachnoid or intraparenchymal hemorrhage. There is no evidence for an acute infarct or cerebral edema. Old left frontal infarct and old left basal ganglia infarct are again seen. There is mild cerebral cortical atrophy and decreased attenuation in the periventricular white matter representing remote small vessel disease. There are no gross mass lesions. Osseous structures: There is no evidence for an acute fracture. The visualized paranasal sinuses are clear. The mastoid air cells are clear bilaterally. Soft tissues: There is no evidence for focal soft tissue swelling. IMPRESSION: 1. No acute intracerebral pathology. 2. 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 3. Mild cerebral cortical atrophy and remote small vessel disease are also again seen. ACT 112: Negative or not required by law. Electronically signed by: Peewee Holland M.D. 01/11/2022 7:31 PM Discharge Plan Visit Data Chief Complaint: Shortness of Breath/Dyspnea Stated Complaint: SOB ED Provider: Romulo Kruger Discharge Problem: Respiratory failure, Pleural effusion, Hypoxia, AMS (altered mental status) Forms Stand Alone Forms: [employer] Prescriptions Prescriptions: No Action (DME) miscellaneous medical supply Misc See Dose Instructions .ROUTE .MEDSUPPLY Qty: 1 0RF Dose Instruction: As directed Rx Instructions: Bath bench albuterol sulfate [Ventolin HFA] 90 mcg/actuation HFA aerosol inhaler 2 puff INH QID PRN (Reason: shortness of breath or wheezing) Qty: 18 4RF atorvastatin 40 mg tablet 40 mg PO QAM 30 Days Qty: 90 1RF clopidogrel 75 mg tablet 75 mg PO QAM 30 Days Qty: 90 1RF midodrine 5 mg tablet 5 mg PO TID Qty: 90 0RF Rx Instructions: do not give last dose of day after 6PM or within 4 hrs of bedtime melatonin 5 mg tablet 5 mg PO HS gabapentin 300 mg capsule 300 mg PO TID Rx Instructions: Take 1 cap PO qhs x 3 days, then 1 cap PO BID x 3 days, then 1 cap PO TID; tamsulosin 0.4 mg capsule 0.4 mg PO QAM aspirin 81 mg tablet,chewable 81 mg PO QAM dutasteride [Avodart] 0.5 mg capsule 0.5 mg PO QAM bupropion HCl 100 mg tablet 100 mg PO QAM Label Comments: QAM folic acid 1 mg tablet 1,000 mcg PO QAM Trelegy Ellipta 100-62.5-25 mcg blister with device 1 inh inhalation QAM Label Comments: QAM sennosides [Senokot] 8.6 mg Tablet 8.6 mg PO QAM Qty: 7 0RF polyethylene glycol 3350 [Miralax] 17 gram Powder In Packet 17 g PO TID Qty: 21 0RF hydrocortisone [Cortef] 10 mg Tablet See Rx Instructions .ROUTE .COMPLEX Qty: 45 0RF Rx Instructions: 10 mg orally 8am, 5mg orally at bedtime quetiapine 25 mg tablet 25 mg PO HS Qty: 0 0RF lansoprazole 30 mg capsule,delayed release(DR/EC) 30 mg PO QAM omeprazole 20 mg capsule,delayed release(DR/EC) 20 mg PO QAM pantoprazole 40 mg tablet,delayed release (DR/EC) 40 mg PO AMHS Referrals Referrals: John Johnson CRNP [Primary Care Provider] -
[2022-01-11] MEDS ORDERED: SODIUM CHLORIDE 0.9% 1000ML 2,000 ML IV ONE (18:13)
[2022-01-11 18:43] LABS: Base Excess ABG -2.9 mEq/L (-9-1.8); HCO3 ABG 22 mmol/L (19-24); Oxygen Saturation ABG 99.9 % (90-95); PCO2 ABG 38 mmHg (35-46); PO2 ABG 126 mmHg (80-95); pH ABG 7.37 (7.35-7.45)
[2022-01-11 18:45] LABS: Basophils # (auto) 0.03 K/uL (0-0.2); Basophils % (auto) 0.4 %; Eosinophils # (auto) 0.11 K/uL (0-0.50); Eosinophils % (auto) 1.5 %; Hematocrit (blood only) 36.1 % (40.1-51.0); Hemoglobin 12.1 g/dl (14.0-18.0); Immature Granulocytes # (auto) 0.02 K/uL (0.00-0.02); Immature Granulocytes % (auto) 0.3 %; Lymphocytes # (auto) 0.53 K/uL (1.2-3.4); Lymphocytes % (auto) 7.3 %; Mean Corpuscular Hemoglobin 25.9 pg (25.0-34.0); Mean Corpuscular Hgb Conc 33.5 g/dL (32.0-36.0); Mean Corpuscular Volume 77.1 fL (80.0-100.0); Mean Platelet Volume 10.1 fL (9.4-12.4); Monocytes # (auto) 0.45 K/uL (0.24-0.82); Monocytes % (auto) 6.2 %; Neutrophils % (auto) 84.3 %; Platelet Count 208 K/uL (130-400); RDW Coefficient of Variation 19.5 % (11.5-14.5); RDW Standard Deviation 54.2 fL (36.4-46.3); Red Blood Count 4.68 M/uL (4.63-6.08); White Blood Count 7.24 K/ul (4.8-10.8)
--- NOTE | 2022-01-11 18:50 | XRay Report ---
XR chest 1V portable CLINICAL HISTORY: Chest Pain. Shortness of breath COMPARISON STUDY: 10/30/2021 TECHNIQUE: 1 view of the chest FINDINGS: Single frontal view of the chest demonstrates the heart to again be enlarged. Compared to the previou s examination, there are now bilateral pleural effusions, left greater than right and bibasilar atele ctasis, again left greater than right. There is also mild central vascular congestion. The right uppe r lobe is clear. There is no acute osseous pathology. IMPRESSION: 1. Interval development of bilateral pleural effusions, left greater than right and bibasilar atelect asis, left greater than right. 2. There is also mild central vascular congestion. ACT 112: Negative or not required by law. Electronically signed by: Peewee Holland M.D. 01/11/2022 6:49 PM
[2022-01-11 19:04] LABS: Allen Test Pos (Pos)
[2022-01-11 19:08] LABS: INR 1.1 (0.9-1.1); Prothrombin Time 11.7 Seconds (9.0-12.0)
[2022-01-11 19:14] LABS: Troponin I High Sensitivity 6.5 pg/ml (0-20)
[2022-01-11 19:15] LABS: Alanine Aminotransferase 12 U/L (7-52); Albumin Globulin Ratio 1.1 (0.9-2); Albumin Level 3.5 gm/dl (3.4-5.0); Alkaline Phosphatase 79 U/L (34-104); Anion Gap 7 (3-11); Aspartate Aminotransferase 19 U/L (13-39); BUN Creatinine Ratio 12.6 (10-20); Bilirubin,Total 0.6 mg/dl (0.2-1.0); Blood Urea Nitrogen 11 mg/dl (6-23); Calcium 8.7 mg/dl (8.5-10.1); Carbon Dioxide 21 mmol/L (21-32); Chloride 103 mmol/L (98-107); Creatine Kinase 112 U/L (30-223); Est GFR (African American) 103.5 ml/min; Est GFR (Non-African American) 89.3 ml/min; Globulin 3.2 gm/dl (2.5-4.0); Glucose 106 mg/dl (70-99(Fasting)); Lipase 20 U/L (11-82); Potassium 3.6 mmol/L (3.5-5.1); Sodium 131 mmol/L (136-145); Total Protein 6.7 gm/dl (6.0-8.3)
--- NOTE | 2022-01-11 19:32 | CT Scan Report ---
CT head/brain wo con CLINICAL HISTORY: ams COMPARISON STUDY: 10/30/2021 CT DOSE: 691.05 mGy.cm TECHNIQUE: Standard CT of the Brain was performed without IV contrast. A dose lowering technique was utilized adhering to the principles of ALARA. FINDINGS: Extraaxial space: There is no evidence for subdural hematoma. There are no extra-axial fluid collecti ons. Ventricles and cisterns: The ventricles are again mildly dilated bilaterally. There is no evidence fo r midline shift or mass effect. Parenchyma: There is no subarachnoid or intraparenchymal hemorrhage. There is no evidence for an acut e infarct or cerebral edema. Old left frontal infarct and old left basal ganglia infarct are again se en. There is mild cerebral cortical atrophy and decreased attenuation in the periventricular white ma tter representing remote small vessel disease. There are no gross mass lesions. Osseous structures: There is no evidence for an acute fracture. The visualized paranasal sinuses are clear. The mastoid air cells are clear bilaterally. Soft tissues: There is no evidence for focal soft tissue swelling. IMPRESSION: 1. No acute intracerebral pathology. 2. 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 3. Mild cerebral cortical atrophy and remote small vessel disease are also again seen. ACT 112: Negative or not required by law. Electronically signed by: Peewee Holland M.D. 01/11/2022 7:31 PM
--- NOTE | 2022-01-11 20:39 | History & Physical Report ---
Date of Service January 11, 2022 Assessment & Plan (1) Acute hypoxemic respiratory failure: Plan: Very unclear HPI as patient has really no recollection of events preceding ER arrival. CXR on admission does show new bilateral pleural effusions and mild vascular congestion. - CT chest ordered - No official review, but I see a dense RLL consolidation, smaller LLL consolidation, and a large left pleural effusion. Concerning to me for aspiration and possible parapneumonic effusion. - BNP, procalcitonin ordered -> Both normal. - Start Unasyn for presumed aspiration pneumonia. - Pulm and SPECIAL EDUCATION PROFESSOR consults entered. (Last pulm visit was in 10/2021 when he planned for repeat CT scan.) (2) Encephalopathy: Plan: Unclear if patient's present mental status is acute vs. chronic. He is AAOx3, but can really give me no events from today or how he was brought to the ER. I reviewed as much of his past medical record as I could, and did not see other mentions of dementia. No focal deficits to indicate acute CVA. - Call family to determine baseline - Monitor for changes (3) Adrenal insufficiency: Plan: Hx of per prior admission notes from 11/2021. Was given hydrocortisone 100 mg IV in the ER for BP of 70/50. Possibly not taking his home hydrocortisone as his BP was 80/55 at a PCP's visit on 11/10/2021, and he declined ER visit at that time. - BP now 105/65 - Continue home hydrocortisone 10 mg QAM and 5 mg QPM; can increase if needed. (4) Otitis externa: Plan: Left otitis externa, with possible otitis media. TMs not visualized on exam due to pus in ear canal. No systemic signs of infection however. - Culture from left ear - Start Unasyn (both for possible pneumonia as well as ear) & Tobra-Dex drops - At this point, do not see indication for ENT evaluation as it appears fairly straightforward. No spreading erythema to indicate superimposed cellulitis. No fluctuance to indication abscess (none noted on CT head either). No tenderness over mastoid process. Will need to reassess with IV and topical abx and see if TM can be visualized. (5) Anemia: Plan: Baseline hgb ~11-12; presently at baseline. MCV however has been getting lower. - Anemia labs in AM - Monitor (6) COPD (chronic obstructive pulmonary disease) with chronic bronchitis: Plan: Seen by pulm in 10/2021. Stable at that time. No wheezing today to indicate a cute COPD exacerbation. - Continue home maintenance inhaler. - Albuterol PRN (7) History of lung cancer: Plan: Prior adenocarcinoma of lung. No indication of active malignancy. - Pulm consult as above (8) Benign prostate hyperplasia: Plan: No LUTS this evening. - Continue home tamsulosin (I think now that he has his steroids, BP should be stable enough for this) & change dutasteride to finasteride (9) DVT prophylaxis: Plan: SCDs - Low DVT risk per admission calculator & will defer until decision about thoracentesis is made. FULL CODE per patient History of Present Illness Primary Care Provider: PETE Chawla 66yo M w/ hx of adrenal insufficiency, COPD, HTN, esophageal stenosis, and hypoxemia who presents with hypoxemia and altered mental status. The patient is a very poor historian. He is AAOx3 (self, hospital, month/year, though not sure of day), but cannot really give me any pertinent history. He reports he maybe "felt hot" today, but otherwise, cannot give me any events leading up to his arrival in the hospital. He notes that his breathing is presently good. He notes that his left ear is painful, but otherwise has no acute complaints. Per ER physician, he was found by EMS with SpO2 in the 60% range and was ashen reagan. It is not clear to me who called EMS and what his living arrangement is, though prior PCP note from 11/2021 indicates he lives at home with home health. Allergies Allergy/AdvReac Type Severity Reaction Status Date / Time ciprofloxacin Allergy Mild RASH Verified 01/11/22 19:05 vancomycin Allergy Mild RASH Verified 01/11/22 19:05 sulfamethoxazole Allergy Unknown Unknown Verified 01/11/22 19:05 [From Bactrim] trimethoprim [From Bactrim] Allergy Unknown Unknown Verified 01/11/22 19:05 Home Medications Medication Instructions Recorded Confirmed Type miscellaneous medical supply #1 ea 08/07/21 01/11/22 Rx albuterol sulfate 90 mcg/actuation 2 puff inhalation QID PRN 08/13/21 01/11/22 Rx aerosol inhaler (Ventolin HFA) shortness of breath or wheezing #18 grams melatonin 5 mg tablet 5 mg PO HS 08/13/21 01/11/22 History atorvastatin 40 mg tablet 40 mg PO QAM 30 days #90 tabs 09/04/21 01/11/22 Rx clopidogrel 75 mg tablet 75 mg PO QAM 30 days #90 tabs 09/04/21 01/11/22 Rx aspirin 81 mg chewable tablet 81 mg PO QAM 10/01/21 01/11/22 History bupropion HCl 100 mg tablet 100 mg PO QAM 10/01/21 01/11/22 History dutasteride 0.5 mg capsule 0.5 mg PO QAM 10/01/21 01/11/22 History (Avodart) fluticasone fur. 100 mcg-umeclid 1 inh inhalation QAM 10/01/21 01/11/22 History 62.5 mcg-vilant 25 mcg inhalat.powder (Trelegy Ellipta) folic acid 1 mg tablet 1,000 mcg PO QAM 10/01/21 01/11/22 History tamsulosin 0.4 mg capsule 0.4 mg PO QAM 10/01/21 01/11/22 History gabapentin 300 mg capsule 300 mg PO TID 10/22/21 01/11/22 History midodrine 5 mg tablet 5 mg PO TID #90 tabs 10/28/21 01/11/22 Rx hydrocortisone 10 mg tablet See Rx Instructions .Route 11/04/21 01/11/22 Rx (Cortef) .COMPLEX #45 tabs polyethylene glycol 3350 17 gram 17 g PO TID #21 ea 11/04/21 01/11/22 Rx oral powder packet (Miralax) quetiapine 25 mg tablet 25 mg PO HS #0 tabs 11/04/21 01/11/22 Rx sennosides 8.6 mg tablet (Senokot) 8.6 mg PO QAM #7 tabs 11/04/21 01/11/22 Rx lansoprazole 30 mg capsule,delayed 30 mg PO QAM 01/11/22 01/11/22 History release omeprazole 20 mg capsule,delayed 20 mg PO QAM 01/11/22 01/11/22 History release pantoprazole 40 mg tablet,delayed 40 mg PO AMHS 01/11/22 01/11/22 History release Past Med/Surg History Medical History Ataxic gait Bacteremia due to methicillin resistant Staphylococcus aureus hx? patient unsure of details Benign prostate hyperplasia Bilateral carotid artery occlusion Bipolar disorder Chlamydial proctitis hx 2018? Confusion poor historian COPD (chronic obstructive pulmonary disease) with chronic bronchitis Encounter for screening for malignant neoplasm of colon Encounter for screening for malignant neoplasm of rectum Esophageal stenosis GERD (gastroesophageal reflux disease) Hepatic steatosis Hiatal hernia History of COVID-19 07/2020 (DIARRHEA AND FEVER) HOSPITALIZED AT [facility] History of esophageal dilatation History of lung cancer (01/2016) 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 HTN (hypertension) Hypertension Medical marijuana use On anticoagulant therapy plavix daily On home oxygen therapy 3L n/c prn for SOB Osteomyelitis Peripheral arterial disease Peripheral neuropathy Poor historian Recurrent left pleural effusion s/p thoracentesis August 2018 Restless leg syndrome Schizoaffective disorder Surgical History H/O foot surgery LEFT HEEL REMOVAL FROM PRESSURE ULCER History of bronchoscopy (01/2016) History of colonoscopy History of esophagogastroduodenoscopy (EGD) with dilation (last 11/23/21 & 10/2021) History of herniorrhaphy History of lobectomy of lung LOWER LEFT LUNG S/P peripheral artery angioplasty with stent placement (06/2016) LLE [employer] [employer], 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 S/P thoracentesis (05/2019) L pleural effusion Status post femorofemoral bypass surgery (06/2016) [place] teeth removed Family History Brother Myocardial infarction Father Myocardial infarction Other Cancer Family history non-contributory Lung disease No family history of adverse response to anesthesia Denies family history of Tuberculosis Ovarian cancer Prostate cancer Diabetes Heart disease Allergies Breast cancer Emphysema, unspecified Lung cancer Colorectal cancer Asthma Social History Smoking Status: Former smoker Tobacco Type: Cigarettes Age Started Using Tobacco: 10; packs per day: 0.5; Years Smoked: 30; Cigarettes Per Day: 6-8 DAILY; Second Hand Exposure: Yes (hx); Hx Alcohol Use: No Preferred Language: Syriac Communication Ability: Effective Visual Impairment: No Limitations Hearing Ability: Normal Rn Home Health Required: No Beliefs That Will Affect Care: None marital status: single Current Living Situation: Alone Current Living Situation Comment: Pt does have caregivers current occupational status: disabled How many Children do You have: 2 Other Information That Helps Us Care for You: No Feels Safe at Home: Yes Childhood Exposure to Second-Hand Smoke: Yes Diet Comment: regular caffeine: Yes (coffee 1 pot a day) during the past year weight has: remained stable Dental Care, Regularly: No Physical Activity Frequency: Does not Exercise Seatbelt Use: always Sunscreen Use: No Assistive Devices: Glasses and Oxygen - Continuous Review of Systems Review of Systems: All systems reviewed & are unremarkable except as noted in HPI & below Physical Exam Constitutional: WD/WN, vitals as above Eyes: EOM intact bilaterally; no conjunctival abnormality ENMT: Ears: + external ear abnormality (Erythema around left ear. Pus in ear canal.) Neck: trachea midline, no thyromegaly normal visual inspection Respiratory: normal respiratory effort, lungs clear to auscultation no respiratory distress Cardiovascular: RRR, no murmur, no edema Gastrointestinal (Abdomen): Inspection/Auscultation: abdomen normal to inspection; abdomen not distended Musculoskeletal: no cyanosis or clubbing, extremities motor strength 5/5 Skin: no rashes, warm and dry Neurologic: moves all extremities and awake Psychiatric: Orientation: alert, oriented to person and cooperative Results & Data Results & Data ([facility]) Vital Signs (Past 12 Hours) Vital Signs Temp Pulse Pulse Resp BP BP Pulse Ox 01/11/22 19:20 81 16 106/71 100 01/11/22 18:47 78 26 H 100 01/11/22 18:45 77 21 144/80 H 100 01/11/22 18:30 36.4 C L 01/11/22 18:34 70 16 68/50 L 96 01/11/22 18:27 71 13 75/51 L 01/11/22 18:15 77 20 79 L 01/11/22 18:04 73 31 H 94 01/11/22 18:34 100 01/11/22 17:59 70 18 100 01/11/22 18:05 70 18 82/52 L 100 O2 Del Method O2 Flow Rate 01/11/22 19:20 Nasal Cannula 6 01/11/22 18:47 Non-rebreather 15 08/08/22 18:45 Nasal Cannula 6 01/11/22 18:30 01/11/22 18:34 01/11/22 18:27 01/11/22 18:15 01/11/22 18:04 01/11/22 18:34 Nasal Cannula 6 01/11/22 17:59 Non-rebreather 15 01/11/22 18:05 Non-rebreather 15 Code Status & VTE Plan VTE Prophylaxis Plan VTE Prophylaxis will be ordered: Yes PG Care Time/CCT Total # of Minutes Spent Total Time Spent with Patient: Total time spent is greater than 50% in coordination of care (as documented) at patient's floor/unit and/or counseling patient: Coding Level of Care Code 11612 Initial Inpt Care Lvl 3 Diagnoses Acute hypoxemic respiratory failure J96.01 Encephalopathy G93.40 Adrenal insufficiency E27.40 Otitis externa H60.90 Anemia D64.9 COPD (chronic obstructive pulmonary disease) with chronic bronchitis J44.9 History of lung cancer Z85.118 Benign prostate hyperplasia N40.0 DVT prophylaxis Z29.9
[2022-01-11] MEDS ORDERED: ACETAMINOPHEN 325 MG TAB PO PRN (22:10)
[2022-01-11] MEDS ORDERED: ALBUTEROL HFA 8 GM INHALER INH PRN (22:10)
[2022-01-11] MEDS: AMPICILLIN/SULBACTAM SOD 3,000 MG in 0.9 % SODIUM CHLORIDE 100 ML IV SCH (23:31)
[2022-01-11] MEDS: HYDROCORTISONE 10 MG TAB PO SCH (23:35)
[2022-01-11] MEDS: MELATONIN 3 MG TAB PO SCH (23:35)
[2022-01-11] MEDS: PANTOprazole 40 MG TAB PO SCH (23:35)
[2022-01-11] MEDS: GABAPENTIN 300 MG CAP PO SCH (23:36)
[2022-01-11] MEDS: QUEtiapine FUMARATE 25 MG TABLET PO SCH (23:36)
[2022-01-11] MEDS: TOBRAMYCIN/DEXAMETHASONE OPH SUSP 2.5 ML BTL OT SCH (23:36)
[2022-01-12] MEDS: AMPICILLIN/SULBACTAM SOD 3,000 MG in 0.9 % SODIUM CHLORIDE 100 ML IV SCH ×4 (04:11→21:48)
[2022-01-12] MEDS: UMECLIDINIUM/VILANTEROL 62.5/25MCG 7 PUFFS/INHALER INH SCH (08:17)
[2022-01-12] MEDS: FLUTICASONE FUROATE 100MCG 14 PUFFS/INHALER INH SCH (08:17)
[2022-01-12] MEDS: GABAPENTIN 300 MG CAP PO SCH ×3 (08:18→20:58)
[2022-01-12] MEDS: TOBRAMYCIN/DEXAMETHASONE OPH SUSP 2.5 ML BTL OT SCH ×2 (08:18→21:01)
[2022-01-12] MEDS: MIDODRINE HCL 2.5 MG TAB PO SCH ×3 (08:19→16:06)
[2022-01-12] MEDS: HYDROCORTISONE 10 MG TAB PO SCH ×2 (08:19→20:58)
[2022-01-12] MEDS: buPROPion HCl 100 MG TABLET PO SCH (08:19)
[2022-01-12] MEDS: ASPIRIN 81 MG CHEW PO SCH (08:19)
[2022-01-12] MEDS: PANTOprazole 40 MG TAB PO SCH ×2 (08:19→21:00)
[2022-01-12] MEDS: FOLIC ACID 1 MG TAB PO SCH (08:20)
[2022-01-12] MEDS: ATORVASTATIN 40 MG TAB PO SCH (08:20)
[2022-01-12] MEDS: SENNA 8.6 MG TAB PO SCH (08:20)
[2022-01-12] MEDS: TAMSULOSIN HCL 0.4 MG CAP PO SCH (08:20)
[2022-01-12] MEDS: FINASTERIDE 5 MG TAB PO SCH (08:20)
[2022-01-12] MEDS: CLOPIDOGREL BISULFATE 75 MG TAB PO SCH (08:20)
[2022-01-12] MEDS ORDERED: NON-FORMULARY MEDICATION (Dutasteride [Avodart] 0.5 mg capsule) PO SCH (09:00)
[2022-01-12] MEDS ORDERED: NON-FORMULARY MEDICATION (Fluticasone-Umeclidin-Vilanter [Trelegy Ellipta] 100-62.5-25 mcg INH SCH (09:00)
[2022-01-12 09:14] LABS: Hematocrit (blood only) 41.8 % (40.1-51.0); Hemoglobin 13.9 g/dl (14.0-18.0); Mean Corpuscular Hemoglobin 25.8 pg (25.0-34.0); Mean Corpuscular Hgb Conc 33.3 g/dL (32.0-36.0); Mean Corpuscular Volume 77.6 fL (80.0-100.0); Mean Platelet Volume 10.8 fL (9.4-12.4); Platelet Count 275 K/uL (130-400); RDW Coefficient of Variation 19.9 % (11.5-14.5); RDW Standard Deviation 54.9 fL (36.4-46.3); Red Blood Count 5.39 M/uL (4.63-6.08); White Blood Count 8.18 K/ul (4.8-10.8)
--- NOTE | 2022-01-12 09:16 | Pulmonary Consultation ---
Date of Consultation January 12, 2022 Assessment & Plan (1) Acute hypoxemic respiratory failure: (2) Pleural effusion: (3) History of lung cancer: Plan Impression: 66-year-old male with history of stage IIIa lung cancer status post chemoradiation therapy with out evidence of recurrence disease with recurrent left pleural effusion. Prior sampling indicated lymphocytic fluid with polyclonal population of cells manifesting both lambda and kappa expression. He was admitted with encephalopathy and hypoxemia which have improved this morning. He is requesting repeat thoracentesis. Recommendations: 1. Pleural effusion: This appears to be chronic in nature and has been dating back for several years. Unclear if this is a trapped or entrapped lung. I advised the patient that this appears to be chronic and effusion is not any bigger than previous. The patient is quite adamant that he wants the fluid sampled again. I advised him that he may experience pain if the lung is unable to reexpand. If the lung is indeed entrapped, definitive therapy would require decortication via video-assisted thoracoscopic surgery performed by thoracic surgery. This is not a service available here. Again the patient is quite adamant that he wants the fluid drained so we will see if we can perform a ultrasound-guided catheter thoracentesis and see how much fluid can be removed. Given the prior fluid characteristics, will send for flow cytometry. We will order SPEP as well and have the primary hospitalist follow-up on the study. He is taking Plavix which increases his risk of bleeding. Ideally would hold for 5 days off Plavix however again the patient is quite adamant that he wants it done now. He understands the risks of bleeding and accepts these risks. 2. COPD: The patient does not exhibit bronchospasm currently. Continue albuterol and Trelegy. No indication for additional steroids. 3. Hypoxemia: Improved. Titrate oxygen to maintain saturations at or above 88%. Unclear if the patient will require supplemental oxygen at discharge. 4. Work-up of the patient's other medical issues deferred to the primary admitting hospitalist. Patient is established with Dr. Mckay in the outpatient setting. He can follow-up with him in clinic at discharge. The above recommendations and plan were discussed with patient. Questions were answered to the best of my ability. Patient expressed understanding and is in agreement with plan as outlined History of Present Illness Attending Physician: Kim Medina MD History of Present Illness Asked by hospitalist to evaluate this patient with chronic effusion. History is obtained from discussion with the patient as well as review of electronic medical record. Patient is a 66-year-old male with a longstanding history of left-sided effusion. Is been present dating back for at least 3 years. Its been sampled on 2 separate occasions. Is been followed in the pulmonary clinic and it was felt to be potentially trapped or entrapped lung and the patient was not a candidate for decortication. He was brought into the emergency room with hypoxemia and altered mental status. He was placed on supplemental oxygen and started on Unasyn for questionable aspiration pneumonia. His encephalopathy is cleared overnight. This morning the patient is adamant that he wants the pleural effusion drained. Patient has a history of stage T1b, N3, M0 (3A) non-small cell lung cancer initially diagnosed in 2015. He underwent chemoradiation with carboplatin and Alimta in 2015. Serial follow-up has not demonstrated any recurrence of disease and he is now following with oncology on a regular basis. The fluid was last drained July 17, 2020. It was also drained May 2020. On the most recent effusion, pleural fluid demonstrated polyclonal population of lymphocytes, both T and B cells showing kappa and lambda expression. Flow cytometry was recommended as well as serum protein electrophoresis Allergies Allergy/AdvReac Type Severity Reaction Status Date / Time ciprofloxacin Allergy Mild RASH Verified 01/11/22 19:05 vancomycin Allergy Mild RASH Verified 01/11/22 19:05 sulfamethoxazole Allergy Unknown Unknown Verified 01/11/22 19:05 [From Bactrim] trimethoprim [From Bactrim] Allergy Unknown Unknown Verified 01/11/22 19:05 Home Medications Medication Instructions Recorded Confirmed Type miscellaneous medical supply #1 ea 08/07/21 01/11/22 Rx albuterol sulfate 90 mcg/actuation 2 puff inhalation QID PRN 08/13/21 01/11/22 Rx aerosol inhaler (Ventolin HFA) shortness of breath or wheezing #18 grams melatonin 5 mg tablet 5 mg PO HS 08/13/21 01/11/22 History atorvastatin 40 mg tablet 40 mg PO QAM 30 days #90 tabs 09/04/21 01/11/22 Rx clopidogrel 75 mg tablet 75 mg PO QAM 30 days #90 tabs 09/04/21 01/11/22 Rx aspirin 81 mg chewable tablet 81 mg PO QAM 04/28/22 08/08/22 History bupropion HCl 100 mg tablet 100 mg PO QAM 10/01/21 01/11/22 History dutasteride 0.5 mg capsule 0.5 mg PO QAM 10/01/21 01/11/22 History (Avodart) fluticasone fur. 100 mcg-umeclid 1 inh inhalation QAM 10/01/21 01/11/22 History 62.5 mcg-vilant 25 mcg inhalat.powder (Trelegy Ellipta) folic acid 1 mg tablet 1,000 mcg PO QAM 10/01/21 01/11/22 History tamsulosin 0.4 mg capsule 0.4 mg PO QAM 10/01/21 01/11/22 History gabapentin 300 mg capsule 300 mg PO TID 10/22/21 01/11/22 History midodrine 5 mg tablet 5 mg PO TID #90 tabs 10/28/21 01/11/22 Rx hydrocortisone 10 mg tablet See Rx Instructions .Route 11/04/21 01/11/22 Rx (Cortef) .COMPLEX #45 tabs polyethylene glycol 3350 17 gram 17 g PO TID #21 ea 11/04/21 01/11/22 Rx oral powder packet (Miralax) quetiapine 25 mg tablet 25 mg PO HS #0 tabs 11/04/21 01/11/22 Rx sennosides 8.6 mg tablet (Senokot) 8.6 mg PO QAM #7 tabs 11/04/21 01/11/22 Rx lansoprazole 30 mg capsule,delayed 30 mg PO QAM 01/11/22 01/11/22 History release omeprazole 20 mg capsule,delayed 20 mg PO QAM 01/11/22 01/11/22 History release pantoprazole 40 mg tablet,delayed 40 mg PO AMHS 01/11/22 01/11/22 History release Patient History Medical History Ataxic gait Bacteremia due to methicillin resistant Staphylococcus aureus hx? patient unsure of details Benign prostate hyperplasia Bilateral carotid artery occlusion Bipolar disorder Chlamydial proctitis hx 2018? 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 HTN (hypertension) Hypertension Medical marijuana use On anticoagulant therapy plavix daily On home oxygen therapy 3L n/c prn for SOB Osteomyelitis Peripheral arterial disease Peripheral neuropathy Poor historian Recurrent left pleural effusion s/p thoracentesis August 2018 Restless leg syndrome Schizoaffective disorder Surgical History H/O foot surgery LEFT HEEL REMOVAL FROM PRESSURE ULCER History of bronchoscopy (01/2016) History of colonoscopy History of esophagogastroduodenoscopy (EGD) with dilation (last 11/23/21 & 10/2021) History of herniorrhaphy History of lobectomy of lung LOWER LEFT LUNG S/P peripheral artery angioplasty with stent placement (06/2016) LLE [employer], 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 S/P thoracentesis (05/2019) L pleural effusion Status post femorofemoral bypass surgery (06/2016) [place] teeth removed Family History Brother Myocardial infarction Father Myocardial infarction Other Cancer Family history non-contributory Lung disease No family history of adverse response to anesthesia Denies family history of Tuberculosis Ovarian cancer Prostate cancer Diabetes Heart disease Allergies Breast cancer Emphysema, unspecified Lung cancer Colorectal cancer Asthma Social History Smoking Status: Former smoker Tobacco Type: Cigarettes Age Started Using Tobacco: 10; packs per day: 0.5; Years Smoked: 30; Cigarettes Per Day: 6-8 DAILY; Second Hand Exposure: Yes (hx); Hx Alcohol Use: No Preferred Language: Kazakh Communication Ability: Effective Visual Impairment: No Limitations Hearing Ability: Normal Parent Coach Required: No Beliefs That Will Affect Care: None marital status: single Current Living Situation: Alone Current Living Situation Comment: Pt does have caregivers current occupational status: disabled How many Children do You have: 2 Other Information That Helps Us Care for You: No Feels Safe at Home: Yes Childhood Exposure to Second-Hand Smoke: Yes Diet Comment: regular caffeine: Yes (coffee 1 pot a day) during the past year weight has: remained stable Dental Care, Regularly: No Physical Activity Frequency: Does not Exercise Seatbelt Use: always Sunscreen Use: No Assistive Devices: Glasses and Oxygen - Continuous Review of Systems Review of Systems: Please refer to admission H&P. No additions or deletions Physical Exam Constitutional: WD/WN, vitals as above Eyes: EOM intact bilaterally; no conjunctival abnormality Neck: trachea midline, no thyromegaly normal visual inspection Respiratory: normal respiratory effort, lungs clear to auscultation no respiratory distress Decreased breath sounds with dullness to percussion at the left lung base Cardiovascular: RRR, no murmur, no edema Gastrointestinal (Abdomen): Inspection/Auscultation: abdomen normal to inspection; abdomen not distended Musculoskeletal: no cyanosis or clubbing, extremities motor strength 5/5 Skin: no rashes, warm and dry Neurologic: moves all extremities and awake Psychiatric: Orientation: alert, oriented to person and cooperative Results & Data Results & Data ([facility]) Vital Signs (Past 12 Hours) Vital Signs Temp Pulse Pulse Resp BP BP Pulse Ox 01/12/22 07:17 79 01/12/22 02:57 36.6 C 89 15 121/80 100 01/11/22 23:21 94 H 01/11/22 22:10 01/11/22 22:10 36.3 C L 100 H 24 105/65 98 01/11/22 21:53 74 18 122/89 96 01/11/22 21:16 93 H 16 120/91 96 O2 Del Method O2 Flow Rate 01/12/22 07:17 01/12/22 02:57 Room Air 01/11/22 23:21 01/11/22 22:10 Nasal Cannula 4 01/11/22 22:10 Nasal Cannula 6 01/11/22 21:53 Nasal Cannula 6 01/11/22 21:16 Nasal Cannula 6 Laboratory Results Chemistry panels from this morning are pending. Blood gas yesterday showed a pH 7.37 with a PCO2 of 38 and PO2 126 CBC from this morning is pending. White count yesterday was 7.24 with hemoglobin hematocrit of 12 and 36 and a platelet count of 208. INR 1.1 Procalcitonin undetectable Diagnostic Findings Imaging studies were all independently reviewed. CT of the chest from 01/11/2022 demonstrated the chronic left-sided pleural effusion with peripheral rim enhancement. Small pericardial effusion was also noted. There is a patchy area of airspace opacity present in the superior segment of the right lower lobe with air bronchograms as well as an area within the anterior segment of the right upper lobe. Both of these areas are stable and were present on prior CT scans from August 2021. PG Care Time/CCT Total # of Minutes Spent Total Time Spent with Patient: Total time spent is greater than 50% in coordination of care (as documented) at patient's floor/unit and/or counseling patient: Coding Level of Care Code 22101 Initial Inpt Care Lvl 3 Diagnoses Acute hypoxemic respiratory failure J96.01 Pleural effusion J90 History of lung cancer Z85.118
[2022-01-12 09:51] LABS: BUN Creatinine Ratio 11.1 (10-20); Calcium 9.5 mg/dl (8.5-10.1); Creatinine Clr Calc Pharmacy 78.3 ml/min; Est GFR (Non-African American) 78.5 ml/min; Potassium 4.2 mmol/L (3.5-5.1)
[2022-01-12 09:59] LABS: Ferritin 461.4 ng/ml (8-388)
[2022-01-12 10:05] LABS: Folate (Folic Acid) > 22.30 ng/ml (>5.38); Vitamin B12 417 pg/ml (180-914)
[2022-01-12 10:22] LABS: iSTAT Arterial Blood Gas pH 7.39 (7.35-7.45); iSTAT Hematocrit 36 % (42-52); iSTAT Hemoglobin 12.2 g/dl (14.0-18.0); iSTAT Potassium 3.5 mmol/L (3.3-5.0); iSTAT Sodium 132 mmol/L (135-144)
--- NOTE | 2022-01-12 10:22 | CT Scan Report ---
CT chest diagnostic wo con CLINICAL HISTORY: Hypoxemia, pleural effusions TECHNIQUE: Multidetector row helical CT of the chest was performed. Coronal and sagittal reformations were obtained. Automated dose lowering techniques and/or adjustment according to patient size were u tilized for this exam. CT DOSE: 441.93 mGy.cm Comparison: Comparison is made to CT chest 09/03/2021 FINDINGS: Lungs and pleura: There is a moderate left pleural effusion with associated atelectasis. Thickening o f the pleura is noted and the effusion is minimally hyperdense. No suspicious pulmonary nodules are s een. Scarring is seen in the bilateral upper lobes and right lower lobe. Heart and pericardium: Heart size is normal. No pericardial effusion. Vessels: Severe atherosclerotic changes in the aorta and coronary arteries. Mediastinum and wayne: Unremarkable. Chest wall and lower neck: Unremarkable. Abdomen: Unremarkable. Bones: Degenerative changes in the thoracic spine. IMPRESSION: Redemonstration of left pleural effusion, stable to minimally decreased in size from prior exam. This is favored to represent a chronic effusion, although an empyema could appear similar. Chronic postra diation changes. ACT 112: Negative or not required by law. Electronically signed by: Lanre Douglass M.D. 01/12/2022 10:19 AM
[2022-01-12 10:23] LABS: iSTAT Arterial Blood Gas HCO3 23 meg/L (19-24); iSTAT Arterial Blood Gas pCO2 38 mmHg (35-46); iSTAT Arterial Blood Gas pO2 298 mmHg (80-95); iSTAT Carbon Dioxide 24 mmol/L (24-31)
[2022-01-12] MEDS: ONDANSETRON INJ 2 MG/ML 2 ML VIAL IV PRN ×2 (11:30→21:39)
--- NOTE | 2022-01-12 15:48 | Procedure Note ---
Procedure Note Date of Service January 12, 2022 Note Procedure: Diagnostic therapeutic ultrasound-guided catheter thoracentesis, left Registered Nurse Ambulatory: Dr. Doug Morin Indication: Pleural effusion Consent: Signed by patient and verified with timeout prior to procedure Anesthesia: 8 mL's 1% lidocaine without epinephrine local. Procedure: Consent was verified and timeout performed. Patient acknowledges increased risk of bleeding while on Plavix and requested the procedure be done. Appropriate imaging studies were reviewed prior to the procedure. Patient was placed in a seated position and limited thoracic ultrasound was performed of the left chest. A thick rind was identified however a site appropriate for thoracentesis was selected. The skin was prepped and draped in normal sterile fashion. Lidocaine was used for local analgesia. A small skin marie was made with the scalpel and the catheter over the needle apparatus was advanced over the rib into the pleural space. Passing the catheter was very difficult through the rind and required a significant amount of pressure. Eventually I was able to get the catheter into a position where fluid was able to be drained. Using the syringe a total of 250 mL of yellow slightly turbid cloudy fluid was removed. Procedure was terminated due to inability to withdraw any additional fluid. The catheter was removed and observed to be intact. A sterile dressing was applied. Post procedure chest x-ray was ordered. Fluid was sent for cytology (including flow cytometry), cultures, cell count differential, gram stain, LDH, glucose, and total protein. 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 If the patient requires additional drainage, video-assisted thoracoscopic evaluation with decortication may be required Coding CPT Codes Pulmonary/Thoracic - Pulmonary and Thoracic: 66108 Thoracentesis w imaging ([id number]) [facility] [place]) Pulmonary/Thoracic Procedure 1: Pulmonary and Thoracic: 90935 Thoracentesis w imaging
--- NOTE | 2022-01-12 16:10 | XRay Report ---
XR chest 1V portable CLINICAL HISTORY: S/P Thoracentesis. Evaluate for pneumothorax COMPARISON STUDY: 01/11/2022 TECHNIQUE: 1 view of the chest FINDINGS: Single frontal view of the chest demonstrates the cardiomediastinal silhouette to be within normal li mits. Compared to the previous examination, the patient is status post left thoracentesis with decrea sed left pleural effusion. Residual left pleural effusion and left basilar atelectasis are present. T here is no evidence for pneumothorax. The right hemithorax is clear. There has been resolution of right basilar atelectasis. There is no de finite right pleural effusion. There is no evidence for vascular congestion. There is no acute osseou s pathology. IMPRESSION: 1. Status post left thoracentesis with decreased left pleural effusion. 2. There is still residual left pleural effusion and left basilar atelectasis. 3. There is no evidence for pneumothorax. 4. Resolution of right basilar atelectasis. ACT 112: Negative or not required by law. Electronically signed by: Peewee Holland M.D. 01/12/2022 4:08 PM
[2022-01-12 16:30] LABS: Appearance Pleural Fluid Cloudy; Color Pleural Fluid Yellow; RBC Pleural Fluid (A) 5000 /uL; Source Pleural Fluid Left Lung; WBC Pleural Fluid (A) 181 /uL
--- NOTE | 2022-01-12 16:57 | Hospitalist Progress Note ---
Date of Service January 12, 2022 Assessment & Plan (1) Acute hypoxemic respiratory failure: Plan: Presented with POx 60% reportedly, suspect aspiration given his frequent vomiting/regurgitation of food he reports-typically gets serial esophageal dilations CXR on admission does show bilateral pleural effusions and mild vascular congestion, although he has had these for some time - CT chest with possible PNA and parapneumonic effusion. - BNP, procalcitonin ordered -> Both normal. - continue Unasyn for presumed aspiration pneumonia. - Pulm and [facility] consults entered. (Last pulm visit was in 10/2021 when he planned for repeat CT scan.) PULM tapped effusion but suspects trapped lung. Await pleural fluid studies Now back to baseline 3 LNC (2) Encephalopathy: Plan: Now resolved In fact, is the best mental status I have ever seen with this patient compared to when he had his 3 month hospital stay late last year into early 2020 No focal deficits to indicate acute CVA. Was 2/2 hypoxemia (3) Adrenal insufficiency: Plan: Dxd during last hospital stay and much improved on po hydrocortisone Was given hydrocortisone 100 mg IV in the ER for BP of 70/50. Possibly not taking his home hydrocortisone as his BP was 80/55 at a PCP's visit on 11/10/2021, and he declined ER visit at that time. - BPnow stable - Continue home hydrocortisone 10 mg QAM and 5 mg QPM; can increase if needed. (4) Otitis externa: Plan: Left otitis externa, with possible otitis media. TMs not visualized on exam due to pus in ear canal. No systemic signs of infection however. - Culture from left ear - Started Unasyn (both for possible pneumonia as well as ear) & Tobra-Dex drops - At this point, do not see indication for ENT evaluation as it appears fairly straightforward. No spreading erythema to indicate superimposed cellulitis. No fluctuance to indication abscess (none noted on CT head either). No tenderness over mastoid process. Will need to reassess with IV and topical abx and see if TM can be visualized. (5) Anemia: Plan: Baseline hgb ~11-12; presently at baseline. MCV however has been getting lower. - Anemia labs in AM show nothing abnormal likely of chronic disease - Monitor (6) COPD (chronic obstructive pulmonary disease) with chronic bronchitis: Plan: Seen by pulm in 10/2021. Stable at that time. No wheezing today to indicate acute COPD exacerbation. - Continue home maintenance inhaler. - Albuterol PRN (7) History of lung cancer: Plan: Prior adenocarcinoma of lung. No indication of active malignancy. - Pulm consult as above (8) Benign prostate hyperplasia: Plan: No LUTS this evening. - Continue home tamsulosin (I think now that he has his steroids, BP should be stable enough for this) & change dutasteride to finasteride (9) DVT prophylaxis: Plan: SCDs Dispo-continued stay but possible dc to home in next 1-2 days if remains stable, await pleural fluid studies. PT/OT consults ordered but he is wheelchair bound at home FULL CODE per patient Admission and Anticipated Discharge Date Admission Date: January 11, 2022 Subjective Pt had some vomiting of undigested food today as per nursing. This is chronic for him and he does get serial esophageal dilations for this, the last one being about 3 weeks ago. Otherwise he is 200% better than the last time I saw him in the hospital many months ago. Tele with NSR rates 60-80s Review of Systems Review of Systems: All systems reviewed & are unremarkable except as noted in HPI & below no constipation Physical Exam Constitutional: WD/WN, vitals as above Eyes: + anicteric sclerae Neck: trachea midline, no thyromegaly Respiratory: normal respiratory effort, lungs clear to auscultation Cardiovascular: RRR, no murmur, no edema Chest (Breasts): Chest: normal inspection of chest Gastrointestinal (Abdomen): normal bowel sounds, soft, nontender, no hepatos plenomegaly Musculoskeletal: Extremities: extremities normal to inspection; no cyanosis and no clubbing Skin: no rashes, warm and dry Neurologic: moves all extremities and awake; no focal motor deficits Psychiatric: A+Ox3, euthymic affect Lymphatic: no lymphedema Results & Data Results & Data ([facility]) Vital Signs (Past 12 Hours) Vital Signs Temp Pulse Pulse Resp BP Pulse Ox O2 Del Method 01/12/22 16:40 35.6 C L 78 18 133/72 100 01/12/22 15:18 Nasal Cannula 01/12/22 12:37 89 102/68 01/12/22 11:47 36.3 C L 81 18 88/62 L 100 Room Air 01/12/22 07:17 79 O2 Flow Rate 01/12/22 16:40 01/12/22 15:18 3 01/12/22 12:37 01/12/22 11:47 01/12/22 07:17 Laboratory Results 01/12/22 01/12/22 01/12/22 Range/Units 15:44 15:44 08:56 WBC 8.18 (4.8-10.8) K/ul RBC 5.39 (4.63-6.08) M/uL Hgb 13.9 L (14.0-18.0) g/dl POC Hgb (14.0-18.0) g/dl Hct 41.8 (40.1-51.0) % POC Hct (42-52) % MCV 77.6 L (80.0-100.0) fL MCH 25.8 (25.0-34.0) pg MCHC 33.3 (32.0-36.0) g/dL RDW Std Deviation 54.9 H (36.4-46.3) fL RDW Coeff of Raul 19.9 H (11.5-14.5) % Plt Count 275 (130-400) K/uL MPV 10.8 (9.4-12.4) fL Immature Gran % (Auto) % Neut % (Auto) % Lymph % (Auto) % Crosby % (Auto) % Eos % (Auto) % Baso % (Auto) % Neut # (Auto) (1.4-6.5) K/uL Lymph # (Auto) (1.2-3.4) K/uL Crosby # (Auto) (0.24-0.82) K/uL Eos # (Auto) (0-0.50) K/uL Baso # (Auto) (0-0.2) K/uL Immature Gran # (Auto) (0.00-0.02) K/uL PT (9.0-12.0) Seconds INR (0.9-1.1) POC pH (7.35-7.45) POC pCO2 (35-46) mmHg POC pO2 (80-95) mmHg POC HCO3 (19-24) peyman/L POC Total CO2 (24-31) mmol/L POC Base Excess (-9-1.8) peyman/L ABG pH (7.35-7.45) ABG pCO2 (35-46) mmHg ABG pO2 (80-95) mmHg ABG HCO3 (19-24) mmol/L ABG O2 Saturation (90-95) % ABG Base Excess (-9-1.8) mEq/L Kentrell Test (Pos) Oxygen Given POC Sodium (135-144) mmol/L Sodium (136-145) mmol/L POC Potassium (3.3-5.0) mmol/L Potassium (3.5-5.1) mmol/L Chloride (98-107) mmol/L Carbon Dioxide (21-32) mmol/L Anion Gap (3-11) BUN (6-23) mg/dl Creatinine (0.6-1.4) mg/dl Est Cr Clr Drug Dosing Est GFR ( Amer) ml/min Est GFR (Non-Af Amer) ml/min BUN/Creatinine Ratio (10-20) Glucose (70-99(Fasting)) mg/dl Calcium (8.5-10.1) mg/dl Magnesium (1.7-2.4) mg/dl Iron (35-175) mcg/dl Unsaturated IBC (155-355) mcg/dl Transferrin (200-360) mg/dl Ferritin (8-388) ng/ml Total Bilirubin (0.2-1.0) mg/dl AST (13-39) U/L ALT (7-52) U/L Alkaline Phosphatase (34-104) U/L Total Creatine Kinase (30-223) U/L Troponin I High Sens (0-20) pg/ml B-Natriuretic Peptide (0-100) pg/ml Total Protein (6.0-8.3) gm/dl Albumin (3.4-5.0) gm/dl Globulin (2.5-4.0) gm/dl Albumin/Globulin Ratio (0.9-2) Lipase (11-82) U/L Vitamin B12 (180-914) pg/ml Folate (>5.38) ng/ml Procalcitonin (0-0.5) ng/ml Fluid Neutrophils % Pending Fluid Comment Pleural Fluid Source Left Lung Pleural Color Yellow Pleural Appearance Cloudy Pleural WBC 181 /uL Pleural RBC 5000 /uL Pleural Total Protein Pending Pleural LDH Pending Pleural Glucose Pending Nasal Screen MRSA (PCR) (Negative) SARS-CoV-2, RNA, NAAT (NEGATIVE) 01/12/22 01/12/22 01/11/22 Range/Units 08:56 08:56 20:21 WBC (4.8-10.8) K/ul RBC (4.63-6.08) M/uL Hgb (14.0-18.0) g/dl POC Hgb (14.0-18.0) g/dl Hct (40.1-51.0) % POC Hct (42-52) % MCV (80.0-100.0) fL MCH (25.0-34.0) pg MCHC (32.0-36.0) g/dL RDW Std Deviation (36.4-46.3) fL RDW Coeff of Raul (11.5-14.5) % Plt Count (130-400) K/uL MPV (9.4-12.4) fL Immature Gran % (Auto) % Neut % (Auto) % Lymph % (Auto) % Crosby % (Auto) % Eos % (Auto) % Baso % (Auto) % Neut # (Auto) (1.4-6.5) K/uL Lymph # (Auto) (1.2-3.4) K/uL Crosby # (Auto) (0.24-0.82) K/uL Eos # (Auto) (0-0.50) K/uL Baso # (Auto) (0-0.2) K/uL Immature Gran # (Auto) (0.00-0.02) K/uL PT (9.0-12.0) Seconds INR (0.9-1.1) POC pH (7.35-7.45) POC pCO2 (35-46) mmHg POC pO2 (80-95) mmHg POC HCO3 (19-24) peyman/L POC Total CO2 (24-31) mmol/L POC Base Excess (-9-1.8) peyman/L ABG pH (7.35-7.45) ABG pCO2 (35-46) mmHg ABG pO2 (80-95) mmHg ABG HCO3 (19-24) mmol/L ABG O2 Saturation (90-95) % ABG Base Excess (-9-1.8) mEq/L Kentrell Test (Pos) Oxygen Given POC Sodium (135-144) mmol/L Sodium 135 L (136-145) mmol/L POC Potassium (3.3-5.0) mmol/L Potassium 4.2 (3.5-5.1) mmol/L Chloride 103 (98-107) mmol/L Carbon Dioxide 23 (21-32) mmol/L Anion Gap 9 (3-11) BUN 11 (6-23) mg/dl Creatinine 0.99 (0.6-1.4) mg/dl Est Cr Clr Drug Dosing 78.3 Est GFR ( Amer) 91.0 ml/min Est GFR (Non-Af Amer) 78.5 ml/min BUN/Creatinine Ratio 11.1 (10-20) Glucose 159 H (70-99(Fasting)) mg/dl Calcium 9.5 (8.5-10.1) mg/dl Magnesium 2.0 (1.7-2.4) mg/dl Iron 37 (35-175) mcg/dl Unsaturated IBC 213 (155-355) mcg/dl Transferrin 196 L (200-360) mg/dl Ferritin 461.4 H (8-388) ng/ml Total Bilirubin (0.2-1.0) mg/dl AST (13-39) U/L ALT (7-52) U/L Alkaline Phosphatase (34-104) U/L Total Creatine Kinase (30-223) U/L Troponin I High Sens (0-20) pg/ml B-Natriuretic Peptide (0-100) pg/ml Total Protein (6.0-8.3) gm/dl Albumin (3.4-5.0) gm/dl Globulin (2.5-4.0) gm/dl Albumin/Globulin Ratio (0.9-2) Lipase (11-82) U/L Vitamin B12 417 (180-914) pg/ml Folate > 22.30 (>5.38) ng/ml Procalcitonin < 0.05 (0-0.5) ng/ml Fluid Neutrophils % Fluid Comment Pleural Fluid Source Pleural Color Pleural Appearance Pleural WBC /uL Pleural RBC /uL Pleural Total Protein Pleural LDH Pleural Glucose Nasal Screen MRSA (PCR) (Negative) SARS-CoV-2, RNA, NAAT (NEGATIVE) 01/11/22 01/11/22 01/11/22 Range/Units 20:21 18:32 18:32 WBC (4.8-10.8) K/ul RBC (4.63-6.08) M/uL Hgb (14.0-18.0) g/dl POC Hgb (14.0-18.0) g/dl Hct (40.1-51.0) % POC Hct (42-52) % MCV (80.0-100.0) fL MCH (25.0-34.0) pg MCHC (32.0-36.0) g/dL RDW Std Deviation (36.4-46.3) fL RDW Coeff of Raul (11.5-14.5) % Plt Count (130-400) K/uL MPV (9.4-12.4) fL Immature Gran % (Auto) % Neut % (Auto) % Lymph % (Auto) % Crosby % (Auto) % Eos % (Auto) % Baso % (Auto) % Neut # (Auto) (1.4-6.5) K/uL Lymph # (Auto) (1.2-3.4) K/uL Crosby # (Auto) (0.24-0.82) K/uL Eos # (Auto) (0-0.50) K/uL Baso # (Auto) (0-0.2) K/uL Immature Gran # (Auto) (0.00-0.02) K/uL PT 11.7 (9.0-12.0) Seconds INR 1.1 (0.9-1.1) POC pH (7.35-7.45) POC pCO2 (35-46) mmHg POC pO2 (80-95) mmHg POC HCO3 (19-24) peyman/L POC Total CO2 (24-31) mmol/L POC Base Excess (-9-1.8) peyman/L ABG pH 7.37 (7.35-7.45) ABG pCO2 38 (35-46) mmHg ABG pO2 126 H (80-95) mmHg ABG HCO3 22 (19-24) mmol/L ABG O2 Saturation 99.9 H (90-95) % ABG Base Excess -2.9 (-9-1.8) mEq/L Kentrell Test Pos (Pos) Oxygen Given 60 POC Sodium (135-144) mmol/L Sodium (136-145) mmol/L POC Potassium (3.3-5.0) mmol/L Potassium (3.5-5.1) mmol/L Chloride (98-107) mmol/L Carbon Dioxide (21-32) mmol/L Anion Gap (3-11) BUN (6-23) mg/dl Creatinine (0.6-1.4) mg/dl Est Cr Clr Drug Dosing Est GFR ( Amer) ml/min Est GFR (Non-Af Amer) ml/min BUN/Creatinine Ratio (10-20) Glucose (70-99(Fasting)) mg/dl Calcium (8.5-10.1) mg/dl Magnesium (1.7-2.4) mg/dl Iron (35-175) mcg/dl Unsaturated IBC (155-355) mcg/dl Transferrin (200-360) mg/dl Ferritin (8-388) ng/ml Total Bilirubin (0.2-1.0) mg/dl AST (13-39) U/L ALT (7-52) U/L Alkaline Phosphatase (34-104) U/L Total Creatine Kinase (30-223) U/L Troponin I High Sens (0-20) pg/ml B-Natriuretic Peptide 78 (0-100) pg/ml Total Protein (6.0-8.3) gm/dl Albumin (3.4-5.0) gm/dl Globulin (2.5-4.0) gm/dl Albumin/Globulin Ratio (0.9-2) Lipase (11-82) U/L Vitamin B12 (180-914) pg/ml Folate (>5.38) ng/ml Procalcitonin (0-0.5) ng/ml Fluid Neutrophils % Fluid Comment Pleural Fluid Source Pleural Color Pleural Appearance Pleural WBC /uL Pleural RBC /uL Pleural Total Protein Pleural LDH Pleural Glucose Nasal Screen MRSA (PCR) (Negative) SARS-CoV-2, RNA, NAAT (NEGATIVE) 01/11/22 01/11/22 01/11/22 Range/Units 18:32 18:32 18:30 WBC 7.24 (4.8-10.8) K/ul RBC 4.68 (4.63-6.08) M/uL Hgb 12.1 L (14.0-18.0) g/dl POC Hgb (14.0-18.0) g/dl Hct 36.1 L (40.1-51.0) % POC Hct (42-52) % MCV 77.1 L (80.0-100.0) fL MCH 25.9 (25.0-34.0) pg MCHC 33.5 (32.0-36.0) g/dL RDW Std Deviation 54.2 H (36.4-46.3) fL RDW Coeff of Raul 19.5 H (11.5-14.5) % Plt Count 208 (130-400) K/uL MPV 10.1 (9.4-12.4) fL Immature Gran % (Auto) 0.3 % Neut % (Auto) 84.3 % Lymph % (Auto) 7.3 % Crosby % (Auto) 6.2 % Eos % (Auto) 1.5 % Baso % (Auto) 0.4 % Neut # (Auto) 6.10 (1.4-6.5) K/uL Lymph # (Auto) 0.53 L (1.2-3.4) K/uL Crosby # (Auto) 0.45 (0.24-0.82) K/uL Eos # (Auto) 0.11 (0-0.50) K/uL Baso # (Auto) 0.03 (0-0.2) K/uL Immature Gran # (Auto) 0.02 (0.00-0.02) K/uL PT (9.0-12.0) Seconds INR (0.9-1.1) POC pH (7.35-7.45) POC pCO2 (35-46) mmHg POC pO2 (80-95) mmHg POC HCO3 (19-24) peyman/L POC Total CO2 (24-31) mmol/L POC Base Excess (-9-1.8) peyman/L ABG pH (7.35-7.45) ABG pCO2 (35-46) mmHg ABG pO2 (80-95) mmHg ABG HCO3 (19-24) mmol/L ABG O2 Saturation (90-95) % ABG Base Excess (-9-1.8) mEq/L Kentrell Test (Pos) Oxygen Given POC Sodium (135-144) mmol/L Sodium 131 L (136-145) mmol/L POC Potassium (3.3-5.0) mmol/L Potassium 3.6 (3.5-5.1) mmol/L Chloride 103 (98-107) mmol/L Carbon Dioxide 21 (21-32) mmol/L Anion Gap 7 (3-11) BUN 11 (6-23) mg/dl Creatinine 0.87 (0.6-1.4) mg/dl Est Cr Clr Drug Dosing Not Reportable Est GFR ( Amer) 103.5 ml/min Est GFR (Non-Af Amer) 89.3 ml/min BUN/Creatinine Ratio 12.6 (10-20) Glucose 106 H (70-99(Fasting)) mg/dl Calcium 8.7 (8.5-10.1) mg/dl Magnesium (1.7-2.4) mg/dl Iron (35-175) mcg/dl Unsaturated IBC (155-355) mcg/dl Transferrin (200-360) mg/dl Ferritin (8-388) ng/ml Total Bilirubin 0.6 (0.2-1.0) mg/dl AST 19 (13-39) U/L ALT 12 (7-52) U/L Alkaline Phosphatase 79 (34-104) U/L Total Creatine Kinase 112 (30-223) U/L Troponin I High Sens 6.5 (0-20) pg/ml B-Natriuretic Peptide (0-100) pg/ml Total Protein 6.7 (6.0-8.3) gm/dl Albumin 3.5 (3.4-5.0) gm/dl Globulin 3.2 (2.5-4.0) gm/dl Albumin/Globulin Ratio 1.1 (0.9-2) Lipase 20 (11-82) U/L Vitamin B12 (180-914) pg/ml Folate (>5.38) ng/ml Procalcitonin (0-0.5) ng/ml Fluid Neutrophils % Fluid Comment Pleural Fluid Source Pleural Color Pleural Appearance Pleural WBC /uL Pleural RBC /uL Pleural Total Protein Pleural LDH Pleural Glucose Nasal Screen MRSA (PCR) (Negative) SARS-CoV-2, RNA, NAAT NEGATIVE (NEGATIVE) 01/11/22 01/11/22 Range/Units 18:16 06:15 WBC (4.8-10.8) K/ul RBC (4.63-6.08) M/uL Hgb (14.0-18.0) g/dl POC Hgb 12.2 L (14.0-18.0) g/dl Hct (40.1-51.0) % POC Hct 36 L (42-52) % MCV (80.0-100.0) fL MCH (25.0-34.0) pg MCHC (32.0-36.0) g/dL RDW Std Deviation (36.4-46.3) fL RDW Coeff of Raul (11.5-14.5) % Plt Count (130-400) K/uL MPV (9.4-12.4) fL Immature Gran % (Auto) % Neut % (Auto) % Lymph % (Auto) % Crosby % (Auto) % Eos % (Auto) % Baso % (Auto) % Neut # (Auto) (1.4-6.5) K/uL Lymph # (Auto) (1.2-3.4) K/uL Crosby # (Auto) (0.24-0.82) K/uL Eos # (Auto) (0-0.50) K/uL Baso # (Auto) (0-0.2) K/uL Immature Gran # (Auto) (0.00-0.02) K/uL PT (9.0-12.0) Seconds INR (0.9-1.1) POC pH 7.39 (7.35-7.45) POC pCO2 38 (35-46) mmHg POC pO2 298 H (80-95) mmHg POC HCO3 23 (19-24) peyman/L POC Total CO2 24 (24-31) mmol/L POC Base Excess -2.0 (-9-1.8) peyman/L ABG pH (7.35-7.45) ABG pCO2 (35-46) mmHg ABG pO2 (80-95) mmHg ABG HCO3 (19-24) mmol/L ABG O2 Saturation (90-95) % ABG Base Excess (-9-1.8) mEq/L Kentrell Test (Pos) Oxygen Given POC Sodium 132 L (135-144) mmol/L Sodium (136-145) mmol/L POC Potassium 3.5 (3.3-5.0) mmol/L Potassium (3.5-5.1) mmol/L Chloride (98-107) mmol/L Carbon Dioxide (21-32) mmol/L Anion Gap (3-11) BUN (6-23) mg/dl Creatinine (0.6-1.4) mg/dl Est Cr Clr Drug Dosing Est GFR ( Amer) ml/min Est GFR (Non-Af Amer) ml/min BUN/Creatinine Ratio (10-20) Glucose (70-99(Fasting)) mg/dl Calcium (8.5-10.1) mg/dl Magnesium (1.7-2.4) mg/dl Iron (35-175) mcg/dl Unsaturated IBC (155-355) mcg/dl Transferrin (200-360) mg/dl Ferritin (8-388) ng/ml Total Bilirubin (0.2-1.0) mg/dl AST (13-39) U/L ALT (7-52) U/L Alkaline Phosphatase (34-104) U/L Total Creatine Kinase (30-223) U/L Troponin I High Sens (0-20) pg/ml B-Natriuretic Peptide (0-100) pg/ml Total Protein (6.0-8.3) gm/dl Albumin (3.4-5.0) gm/dl Globulin (2.5-4.0) gm/dl Albumin/Globulin Ratio (0.9-2) Lipase (11-82) U/L Vitamin B12 (180-914) pg/ml Folate (>5.38) ng/ml Procalcitonin (0-0.5) ng/ml Fluid Neutrophils % Fluid Comment Pleural Fluid Source Pleural Color Pleural Appearance Pleural WBC /uL Pleural RBC /uL Pleural Total Protein Pleural LDH Pleural Glucose Nasal Screen MRSA (PCR) Positive A (Negative) SARS-CoV-2, RNA, NAAT (NEGATIVE) PG Care Time/CCT Total # of Minutes Spent Total Time Spent with Patient: Total time spent is greater than 50% in coordination of care (as documented) at patient's floor/unit and/or counseling patient: Coding Level of Care Code 82422 Subseq Hosp Care Lvl 3 Diagnoses Acute hypoxemic respiratory failure J96.01 Encephalopathy G93.40 Adrenal insufficiency E27.40 Otitis externa H60.90 Anemia D64.9 COPD (chronic obstructive pulmonary disease) with chronic bronchitis J44.9 History of lung cancer Z85.118 Benign prostate hyperplasia N40.0 DVT prophylaxis Z29.9
[2022-01-12 17:06] LABS: Total Protein Pleural Fluid 3.4 gm/dl
[2022-01-12 17:23] LABS: Lymphocytes, Fluid 83 %; Mono,Macrophage,Mesothelial 7 %; Neutrophils, Fluid 10 %
--- NOTE | 2022-01-12 20:54 | XCELERA ---
[id number]
[2022-01-12] MEDS: QUEtiapine FUMARATE 25 MG TABLET PO SCH (20:57)
[2022-01-12] MEDS: MELATONIN 3 MG TAB PO SCH (20:58)
[2022-01-13] MEDS: AMPICILLIN/SULBACTAM SOD 3,000 MG in 0.9 % SODIUM CHLORIDE 100 ML IV SCH ×4 (04:24→21:39)
--- NOTE | 2022-01-13 05:40 | Electrocardiogram Report ---
Test Reason : Blood Pressure : / mmHG Vent. Rate : 076 BPM Atrial Rate : 076 BPM P-R Int : 152 ms QRS Dur : 084 ms QT Int : 428 ms P-R-T Axes : 036 029 069 degrees QTc Int : 481 ms Normal sinus rhythm Nonspecific T wave abnormality When compared with ECG of 30-OCT-2021 12:42, No significant change was found Confirmed by Sonido Garcia ([id number]) on 01/13/2022 5:39:39 AM Referred By: REFERRED SELF Confirmed By:Sonido Garcia
[2022-01-13] MEDS: PANTOprazole 40 MG TAB PO SCH ×3 (06:03→21:40)
[2022-01-13] MEDS: GABAPENTIN 300 MG CAP PO SCH ×4 (06:03→21:40)
[2022-01-13] MEDS: HYDROCORTISONE 10 MG TAB PO SCH ×4 (06:03→21:40)
[2022-01-13] MEDS: QUEtiapine FUMARATE 25 MG TABLET PO SCH ×2 (06:03→21:41)
[2022-01-13] MEDS: MELATONIN 3 MG TAB PO SCH ×2 (06:03→21:39)
[2022-01-13 08:46] LABS: Basophils # (auto) 0.03 K/uL (0-0.2); Basophils % (auto) 0.3 %; Eosinophils # (auto) 0.11 K/uL (0-0.50); Hematocrit (blood only) 38.4 % (40.1-51.0); Hemoglobin 12.6 g/dl (14.0-18.0); Immature Granulocytes # (auto) 0.03 K/uL (0.00-0.02); Immature Granulocytes % (auto) 0.3 %; Lymphocytes # (auto) 0.86 K/uL (1.2-3.4); Lymphocytes % (auto) 7.9 %; Mean Corpuscular Hgb Conc 32.8 g/dL (32.0-36.0); Mean Corpuscular Volume 79.2 fL (80.0-100.0); Mean Platelet Volume 10.5 fL (9.4-12.4); Monocytes # (auto) 0.55 K/uL (0.24-0.82); Neutrophils # (auto) 9.34 K/uL (1.4-6.5); Neutrophils % (auto) 85.5 %; Platelet Count 267 K/uL (130-400); RDW Standard Deviation 56.4 fL (36.4-46.3); Red Blood Count 4.85 M/uL (4.63-6.08); White Blood Count 10.92 K/ul (4.8-10.8)
--- NOTE | 2022-01-13 09:08 | Pulmonology Progress Note ---
Date of Service January 13, 2022 Assessment & Plan (1) Pleural effusion: Plan Impression: 66-year-old male with history of stage IIIa lung cancer status post chemoradiation therapy with out evidence of recurrence disease with recurrent left pleural effusion. Prior sampling indicated lymphocytic fluid with polyclonal population of cells manifesting both lambda and kappa expression. He was admitted with encephalopathy and hypoxemia which have improved. Despite the chronic nature of the effusion, the patient insisted on sampling and we attempted thoracentesis 01/12/2022 but were only able to remove about 250 cc of fluid. Cytology confirms lymphocytic predominance. Flow cytometry is pending. 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 There was a significant rind and the procedure was quite difficult. Recommendations: 1. Pleural effusion: This appears to be chronic in nature and has been dating back for several years. We are only able to remove 250 cc yesterday. I advised the patient that if he wants definitive treatment, this would necessitate decortication with video-assisted thoracoscopic evaluation which cannot be performed here and would necessitate the patient being seen at either [facility] or [facility]. I do not think that is required at this point time. Would not recommend additional attempts at thoracentesis given the thick rind and difficulty placing the catheter. He can follow-up with the cytology results Dr. Mckay in the outpatient setting 2. COPD: The patient does not exhibit bronchospasm currently. Continue albuterol and Trelegy. No indication for additional steroids. 3. Hypoxemia: Improved. Titrate oxygen to maintain saturations at or above 88%. Unclear if the patient will require supplemental oxygen at discharge. 4. Work-up of the patient's other medical issues deferred to the primary admitting hospitalist. No additional pleural interventions indicated currently. Pulmonary will sign off at this point time. Feel free to contact us with additional pulmonary questions or concerns Admission and Anticipated Discharge Date Admission Date: January 11, 2022 Subjective Patient seen and examined. He is been made NPO. He is quite distressed at this and asks continually for water. He is not having any pain at the thoracentesis site. He is unclear if it offered him a clinical benefit. Review of Systems Review of Systems: All systems reviewed & are unremarkable except as noted in Subjective Physical Exam Constitutional: WD/WN, vitals as above Neck: trachea midline, no thyromegaly Respiratory: no respiratory distress, no labored breathing and not tachypneic Auscultation: + diminished lung sounds Decreased breath sounds at the left lung base. Thoracentesis site clean dry and intact Cardiovascular: RRR, no murmur, no edema Gastrointestinal (Abdomen): normal bowel sounds, soft, nontender, no hepatosplenomegaly Musculoskeletal: Extremities: extremities normal to inspection Skin: no rashes, warm and dry Neurologic: Nonfocal exam Lymphatic: no cervical lymphadenopathy Results & Data Results & Data ([facility]) Vital Signs (Past 12 Hours) Vital Signs Temp Pulse Pulse Resp BP Pulse Ox O2 Del Method 01/13/22 06:09 74 01/13/22 04:30 36.4 C L 75 16 105/71 100 Nasal Cannula 01/12/22 23:00 74 01/12/22 22:37 36.3 C L 65 18 85/57 L 90 Nasal Cannula O2 Flow Rate 01/13/22 06:09 01/13/22 04:30 3 01/12/22 23:00 01/12/22 22:37 3 Laboratory Results 01/13/22 08:17 Pleural fluid studies: Gram stain showed many white blood cells with no organisms, culture pending. Cytology pending Differential showed 10% neutrophils and 83% lymphocytes with 7% monocytes. Flow cytometry pending Pleural total protein 3.4 Pleural LDH 149 Pleural glucose 106 Diagnostic Findings Post thoracentesis film reviewed. Persistent left effusion noted. PG Care Time/CCT Total # of Minutes Spent Total Time Spent with Patient: Total time spent is greater than 50% in coordination of care (as documented) at patient's floor/unit and/or counseling patient: Coding Level of Care Code 54331 Subseq Hosp Care Lvl 2 Diagnoses Pleural effusion J90
[2022-01-13] MEDS ORDERED: LACTATED RINGER'S 1,000 ML IV SCH (09:15)
[2022-01-13 09:18] LABS: BUN Creatinine Ratio 13.6 (10-20); Calcium 9.2 mg/dl (8.5-10.1); Creatinine Clr Calc Pharmacy 70.5 ml/min; Est GFR (African American) 80.1 ml/min; Est GFR (Non-African American) 69.1 ml/min; Potassium 4.2 mmol/L (3.5-5.1)
[2022-01-13] MEDS: TOBRAMYCIN/DEXAMETHASONE OPH SUSP 2.5 ML BTL OT SCH ×2 (09:30→21:41)
--- NOTE | 2022-01-13 09:43 | Gastrointestinal Consultation ---
Date of Consultation January 13, 2022 Assessment & Plan (1) Esophageal stricture: (2) Emesis: Plan Patient is a 66 year old male with a pmhx of COPD, HTN, esophageal stenosis, hypoxemia who presented to ED with hypoxemia and altered mental status. He had speech evaluation and was recommended for IDDSI5 Diet but even with this had episode of projectile emesis last night. He has a history of esophageal stenosis and was dilated 12/17/21. From what patient tells me he only had the one episode of emesis. - Discussed case with Dr. Randolph who advised on plan. - Patient has been getting his plavix. no urgency in updating egd at this time. He is planned for outpatient scope in the coming weeks. will need to be off of plavix 5 days prior to the procedure. - Continue protonix 40mg once daily and zofran 4mg every 4 hours as needed for emesis. - would advise he continue to work with speech on swallowing. he can trial dose of zofran 15 minutes before future attempts at eating to see if this helps. take small bites, chew foods well, use plenty of fluids. History of Present Illness Reason for Consultation: esophageal stenosis, post prandial emesis, aspiration Requesting Physician: Dr. Medina Attending Physician: Kim Medina MD History of Present Illness Patient is a 66 year old male with a pmhx of COPD, HTN, esophageal stenosis, hypoxemia who presented to ED with hypoxemia and altered mental status. He is alert and oriented today but he is very irritable and tells me he does not want to see me today. I told him that was fine but then he agreed. We had seen 12/17/21 for egd showing esophageal stenosis. dilation was done. Since admission he had a speech evaluation and was recommended to have an IDDSI 5 diet. Even despite this last night with dinner he had projectile emesis. We were asked to see patient in light of this. patient does feel past dilation did help his swallowing. He denies all gi ROS. Allergies Allergy/AdvReac Type Severity Reaction Status Date / Time ciprofloxacin Allergy Mild RASH Verified 01/11/22 19:05 vancomycin Allergy Mild RASH Verified 01/11/22 19:05 sulfamethoxazole Allergy Unknown Unknown Verified 01/11/22 19:05 [From Bactrim] trimethoprim [From Bactrim] Allergy Unknown Unknown Verified 01/11/22 19:05 Home Medications Medication Instructions Recorded Confirmed Type miscellaneous medical supply #1 ea 08/07/21 01/11/22 Rx albuterol sulfate 90 mcg/actuation 2 puff inhalation QID PRN 08/13/21 01/11/22 Rx aerosol inhaler (Ventolin HFA) shortness of breath or wheezing #18 grams melatonin 5 mg tablet 5 mg PO HS 08/13/21 01/11/22 History atorvastatin 40 mg tablet 40 mg PO QAM 30 days #90 tabs 09/04/21 01/11/22 Rx clopidogrel 75 mg tablet 75 mg PO QAM 30 days #90 tabs 09/04/21 01/11/22 Rx aspirin 81 mg chewable tablet 81 mg PO QAM 10/01/21 01/11/22 History bupropion HCl 100 mg tablet 100 mg PO QAM 10/01/21 01/11/22 History dutasteride 0.5 mg capsule 0.5 mg PO QAM 10/01/21 01/11/22 History (Avodart) fluticasone fur. 100 mcg-umeclid 1 inh inhalation QAM 10/01/21 01/11/22 History 62.5 mcg-vilant 25 mcg inhalat.powder (Trelegy Ellipta) folic acid 1 mg tablet 1,000 mcg PO QAM 10/01/21 01/11/22 History tamsulosin 0.4 mg capsule 0.4 mg PO QAM 10/01/21 01/11/22 History gabapentin 300 mg capsule 300 mg PO TID 10/22/21 01/11/22 History midodrine 5 mg tablet 5 mg PO TID #90 tabs 10/28/21 01/11/22 Rx hydrocortisone 10 mg tablet See Rx Instructions .Route 11/04/21 01/11/22 Rx (Cortef) .COMPLEX #45 tabs polyethylene glycol 3350 17 gram 17 g PO TID #21 ea 11/04/21 01/11/22 Rx oral powder packet (Miralax) quetiapine 25 mg tablet 25 mg PO HS #0 tabs 11/04/21 01/11/22 Rx sennosides 8.6 mg tablet (Senokot) 8.6 mg PO QAM #7 tabs 11/04/21 01/11/22 Rx lansoprazole 30 mg capsule,delayed 30 mg PO QAM 01/11/22 01/11/22 History release omeprazole 20 mg capsule,delayed 20 mg PO QAM 01/11/22 01/11/22 History release pantoprazole 40 mg tablet,delayed 40 mg PO AMHS 01/11/22 01/11/22 History release Patient History Medical History Ataxic gait Bacteremia due to methicillin resistant Staphylococcus aureus hx? patient unsure of details Benign prostate hyperplasia Bilateral carotid artery occlusion Bipolar disorder Chlamydial proctitis hx 2018? Confusion poor historian COPD (chronic obstructive pulmonary disease) with chronic bronchitis Encounter for screening for malignant neoplasm of colon Encounter for screening for malignant neoplasm of rectum Esophageal stenosis GERD (gastroesophageal reflux disease) Hepatic steatosis Hiatal hernia History of COVID-19 07/2020 ([facility]) HOSPITALIZED AT [facility] History of esophageal dilatation History of lung cancer (01/2016) 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 HTN (hypertension) Hypertension Medical marijuana use On anticoagulant therapy plavix daily On home oxygen therapy 3L n/c prn for SOB Osteomyelitis Peripheral arterial disease Peripheral neuropathy Poor historian Recurrent left pleural effusion s/p thoracentesis August 2018 Restless leg syndrome Schizoaffective disorder Surgical History H/O foot surgery LEFT HEEL REMOVAL FROM PRESSURE ULCER History of bronchoscopy (01/2016) History of colonoscopy History of esophagogastroduodenoscopy (EGD) with dilation (last 11/23/21 & 10/2021) History of herniorrhaphy History of lobectomy of lung LOWER LEFT LUNG S/P peripheral artery angioplasty with stent placement (06/2016) LLE UNDERCOLLAR MAKER, 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 S/P thoracentesis (05/2019) L pleural effusion Status post femorofemoral bypass surgery (06/2016) [place] teeth removed Family History Brother Myocardial infarction Father Myocardial infarction Other Cancer Family history non-contributory Lung disease No family history of adverse response to anesthesia Denies family history of Tuberculosis Ovarian cancer Prostate cancer Diabetes Heart disease Allergies Breast cancer Emphysema, unspecified Lung cancer Colorectal cancer Asthma Social History Smoking Status: Former smoker Tobacco Type: Cigarettes Age Started Using Tobacco: 10; packs per day: 0.5; Years Smoked: 30; Cigarettes Per Day: 6-8 DAILY; Second Hand Exposure: Yes (hx); Hx Alcohol Use: No Preferred Language: [place] Communication Ability: Effective Visual Impairment: No Limitations Hearing Ability: Normal Children'S Aide Required: No Beliefs That Will Affect Care: None marital status: Current Living Situation: Alone Current Living Situation Comment: Pt does have caregivers current occupational status: disabled How many Children do You have: 2 Feels Safe at Home: Yes Childhood Exposure to Second-Hand Smoke: Yes Diet Comment: regular caffeine: Yes (coffee 1 pot a day) during the past year weight has: remained stable Dental Care, Regularly: No Physical Activity Frequency: Does not Exercise Seatbelt Use: always Sunscreen Use: No Assistive Devices: Oxygen - Continuous and Wheelchair Review of Systems Review of Systems: All systems reviewed & are unremarkable except as noted in Subjective Physical Exam Constitutional: WD/WN, vitals as above Eyes: + anicteric sclerae and PERRL ENMT: external ear and nose normal, oropharynx normal Respiratory: normal respiratory effort, lungs clear to auscultation Cardiovascular: RRR, no murmur, no edema Gastrointestinal (Abdomen): normal bowel sounds, soft, nontender, no hepatosplenomegaly Skin: no rashes, warm and dry Psychiatric: alert and oriented x 3. patient is irritable and not always cooperative with questions. Results & Data ([facility]) Vital Signs (Past 12 Hours) Vital Signs Temp Pulse Pulse Resp BP Pulse Ox O2 Del Method 01/13/22 06:09 74 01/13/22 04:30 36.4 C L 75 16 105/71 100 Nasal Cannula 01/12/22 23:00 74 01/12/22 22:37 36.3 C L 65 18 85/57 L 90 Nasal Cannula O2 Flow Rate 01/13/22 06:09 01/13/22 04:30 3 01/12/22 23:00 01/12/22 22:37 3 PG Care Time/CCT Total # of Minutes Spent Total Time Spent with Patient: Total time spent is greater than 50% in coordination of care (as documented) at patient's floor/unit and/or counseling patient: Coding Level of Care Code 96469 Initial Inpt Care Lvl 3 Diagnoses Esophageal stricture K22.2 Emesis R11.10
[2022-01-13] MEDS: buPROPion HCl 100 MG TABLET PO SCH ×2 (09:49→10:37)
[2022-01-13] MEDS: MIDODRINE HCL 2.5 MG TAB PO SCH ×3 (09:49→18:09)
[2022-01-13] MEDS: ASPIRIN 81 MG CHEW PO SCH (09:49)
[2022-01-13] MEDS: UMECLIDINIUM/VILANTEROL 62.5/25MCG 7 PUFFS/INHALER INH SCH ×2 (09:50→10:38)
[2022-01-13] MEDS: FLUTICASONE FUROATE 100MCG 14 PUFFS/INHALER INH SCH ×2 (09:51→10:37)
[2022-01-13] MEDS: CLOPIDOGREL BISULFATE 75 MG TAB PO SCH (10:37)
[2022-01-13] MEDS: FOLIC ACID 1 MG TAB PO SCH (10:37)
[2022-01-13] MEDS: FINASTERIDE 5 MG TAB PO SCH (10:37)
[2022-01-13] MEDS: SENNA 8.6 MG TAB PO SCH (10:38)
[2022-01-13] MEDS: TAMSULOSIN HCL 0.4 MG CAP PO SCH (10:38)
[2022-01-13] MEDS: ATORVASTATIN 40 MG TAB PO SCH (10:38)
--- NOTE | 2022-01-13 15:57 | Hospitalist Progress Note ---
Date of Service January 13, 2022 Assessment & Plan (1) Acute hypoxemic respiratory failure: Plan: Presented with POx 60% reportedly, suspect aspiration given his frequent vomiting/regurgitation of food he reports-typically gets serial esophageal dilations CXR on admission does show bilateral pleural effusions and mild vascular congestion, although he has had these for some time - CT chest with possible PNA and parapneumonic effusion. - BNP, procalcitonin ordered -> Both normal. Now back on home O2 of 3LNC no respiratory distress - continue Unasyn for presumed aspiration pneumonia-plan to convert to po Augmentin on dc to finish 7 day course - Pulm and [employer] consults entered. (Last pulm visit was in 10/2021 when he planned for repeat CT scan.) PULM tapped effusion but suspects trapped lung. No evidence of empyema, PULM signing off (2) Emesis: Plan: secondary to esophageal stenosis as above consulted GI given ongoing frequent post-prandial emesis--> cannot dilate as would have to hold his Plavix has dilation planned for first week Sept continue with pureed diet until then (3) Encephalopathy: Plan: Now resolved In fact, is the best mental status I have ever seen with this patient compared to when he had his 3 month hospital stay late last year into early 2020 No focal deficits to indicate acute CVA. Was 2/2 hypoxemia (4) Adrenal insufficiency: Plan: Dxd during last hospital stay and much improved on po hydrocortisone Was given hydrocortisone 100 mg IV in the ER for BP of 70/50. Possibly not taking his home hydrocortisone as his BP was 80/55 at a PCP's visit on 11/10/2021, and he declined ER visit at that time. - BPnow stable - Continue home hydrocortisone 10 mg QAM and 5 mg QPM; can increase if needed. continue midodrine has upcoming appt with Endocrine Question if may need fludrocortisone added on? (5) Otitis externa: Plan: Left otitis externa, with possible otitis media. TMs not visualized on exam due to pus in ear canal. No systemic signs of infection however. - Started Unasyn (both for possible pneumonia as well as ear) & Tobra-Dex drops - At this point, do not see indication for ENT evaluation as it appears fairly straightforward. No spreading erythema to indicate superimposed cellulitis. No fluctuance to indication abscess (none noted on CT head either). No tenderness over mastoid process. Will need to reassess with IV and topical abx and see if TM can be visualized. (6) Anemia: Plan: Baseline hgb ~11-12; presently at baseline. MCV however has been getting lower. - Anemia labs in AM show nothing abnormal likely of chronic disease - Monitor (7) COPD (chronic obstructive pulmonary disease) with chronic bronchitis: Plan: Seen by pulm in 10/2021. Stable at that time. No wheezing today to indicate acute COPD exacerbation. - Continue home maintenance inhaler. - Albuterol PRN (8) History of lung cancer: Plan: Prior adenocarcinoma of lung. No indication of active malignancy. - Pulm consult as above (9) Benign prostate hyperplasia: Plan: No LUTS this evening. - Continue home tamsulosin (I think now that he has his steroids, BP should be stable enough for this) & change dutasteride to finasteride (10) DVT prophylaxis: Plan: SCDs Dispo-continued stay but possible dc to home tomorrow. PT/OT consults ordered but he is wheelchair bound at home Downgrade to med/surg FULL CODE per patient Admission and Anticipated Discharge Date Admission Date: January 11, 2022 Subjective Pt has not had any further post-prandial vomiting today. He has no other complaints. I discussed his care with GI who cannot dilate his esophagus on Plavix. Tele with NSR, rates in 70s Review of Systems Review of Systems: All systems reviewed & are unremarkable except as noted in HPI & below Physical Exam Constitutional: WD/WN, vitals as above Eyes: + anicteric sclerae Neck: trachea midline, no thyromegaly Respiratory: normal respiratory effort; no cough Auscultation: + crackles (left base); no wheezes Cardiovascular: RRR, no murmur, no edema Chest (Breasts): Chest: normal inspection of chest Gastrointestinal (Abdomen): normal bowel sounds, soft, nontender, no hepatosplenomegaly Musculoskeletal: Extremities: + extremities abnormal to inspection (right hand with edema and fluid leaking fromsmall opening-IV infilatrated), no cyanosis and no clubbing Skin: no rashes, warm and dry Neurologic: moves all extremities and awake; no focal motor deficits Psychiatric: A+Ox3, euthymic affect Lymphatic: no lymphedema Results & Data Results & Data ([facility]) Vital Signs (Past 12 Hours) Vital Signs Temp Pulse Pulse Resp BP Pulse Ox O2 Del Method 01/13/22 15:35 36.8 C 83 110/68 100 Nasal Cannula 01/13/22 09:40 Nasal Cannula 01/13/22 11:15 36.4 C L 76 19 92/59 L 99 Nasal Cannula 01/13/22 09:46 36.8 C 76 90/58 L 98 Nasal Cannula 01/13/22 06:09 74 01/13/22 04:30 36.4 C L 75 16 105/71 100 Nasal Cannula O2 Flow Rate 01/13/22 15:35 3 01/13/22 09:40 3 01/13/22 11:15 3 01/13/22 09:46 3 01/13/22 06:09 01/13/22 04:30 3 Laboratory Results 01/13/22 01/13/22 01/12/22 Range/Units 08:17 08:17 15:44 WBC 10.92 H (4.8-10.8) K/ul RBC 4.85 (4.63-6.08) M/uL Hgb 12.6 L (14.0-18.0) g/dl Hct 38.4 L (40.1-51.0) % MCV 79.2 L (80.0-100.0) fL MCH 26.0 (25.0-34.0) pg MCHC 32.8 (32.0-36.0) g/dL RDW Std Deviation 56.4 H (36.4-46.3) fL RDW Coeff of Raul 20.0 H (11.5-14.5) % Plt Count 267 (130-400) K/uL MPV 10.5 (9.4-12.4) fL Immature Gran % (Auto) 0.3 % Neut % (Auto) 85.5 % Lymph % (Auto) 7.9 % [place] % (Auto) 5.0 % Eos % (Auto) 1.0 % Baso % (Auto) 0.3 % Neut # (Auto) 9.34 H (1.4-6.5) K/uL Lymph # (Auto) 0.86 L (1.2-3.4) K/uL [place] # (Auto) 0.55 (0.24-0.82) K/uL Eos # (Auto) 0.11 (0-0.50) K/uL Baso # (Auto) 0.03 (0-0.2) K/uL Immature Gran # (Auto) 0.03 H (0.00-0.02) K/uL Sodium 143 (136-145) mmol/L Potassium 4.2 (3.5-5.1) mmol/L Chloride 108 H (98-107) mmol/L Carbon Dioxide 31 (21-32) mmol/L Anion Gap 4 (3-11) BUN 15 (6-23) mg/dl Creatinine 1.10 (0.6-1.4) mg/dl Est Cr Clr Drug Dosing 70.5 ml/min Est GFR ( Amer) 80.1 ml/min Est GFR (Non-Af Amer) 69.1 ml/min BUN/Creatinine Ratio 13.6 (10-20) Glucose 98 (70-99(Fasting)) mg/dl Calcium 9.2 (8.5-10.1) mg/dl Fluid Neutrophils % % Fluid Lymphocytes % % Fluid Meso/Macro/[place] % % Fluid Comment Pleural Fluid Source Pleural Color Pleural Appearance Pleural WBC /uL Pleural RBC /uL Pleural Total Protein gm/dl Pleural LDH U/L Pleural Glucose mg/dl Flow Cytometry Comment Pending 01/12/22 01/12/22 Range/Units 15:44 15:44 WBC (4.8-10.8) K/ul RBC (4.63-6.08) M/uL Hgb (14.0-18.0) g/dl Hct (40.1-51.0) % MCV (80.0-100.0) fL MCH (25.0-34.0) pg MCHC (32.0-36.0) g/dL RDW Std Deviation (36.4-46.3) fL RDW Coeff of Raul (11.5-14.5) % Plt Count (130-400) K/uL MPV (9.4-12.4) fL Immature Gran % (Auto) % Neut % (Auto) % Lymph % (Auto) % [place] % (Auto) % Eos % (Auto) % Baso % (Auto) % Neut # (Auto) (1.4-6.5) K/uL Lymph # (Auto) (1.2-3.4) K/uL [place] # (Auto) (0.24-0.82) K/uL Eos # (Auto) (0-0.50) K/uL Baso # (Auto) (0-0.2) K/uL Immature Gran # (Auto) (0.00-0.02) K/uL Sodium (136-145) mmol/L Potassium (3.5-5.1) mmol/L Chloride (98-107) mmol/L Carbon Dioxide (21-32) mmol/L Anion Gap (3-11) BUN (6-23) mg/dl Creatinine (0.6-1.4) mg/dl Est Cr Clr Drug Dosing ml/min Est GFR ( Amer) ml/min Est GFR (Non-Af Amer) ml/min BUN/Creatinine Ratio (10-20) Glucose (70-99(Fasting)) mg/dl Calcium (8.5-10.1) mg/dl Fluid Neutrophils % 10 % Fluid Lymphocytes % 83 % Fluid Meso/Macro/[place] % 7 % Fluid Comment Pleural Fluid Source Left Lung Pleural Color Yellow Pleural Appearance Cloudy Pleural WBC 181 /uL Pleural RBC 5000 /uL Pleural Total Protein 3.4 gm/dl Pleural LDH 149 U/L Pleural Glucose 106 mg/dl Flow Cytometry Comment PG Care Time/CCT Total # of Minutes Spent Total Time Spent with Patient: Total time spent is greater than 50% in coordination of care (as documented) at patient's floor/unit and/or counseling patient: Coding Level of Care Code 54943 Subseq Hosp Care Lvl 2 Diagnoses Acute hypoxemic respiratory failure J96.01 Emesis R11.10 Encephalopathy G93.40 Adrenal insufficiency E27.40 Otitis externa H60.90 Anemia D64.9 COPD (chronic obstructive pulmonary disease) with chronic bronchitis J44.9 History of lung cancer Z85.118 Benign prostate hyperplasia N40.0 DVT prophylaxis Z29.9
[2022-01-14] MEDS: AMPICILLIN/SULBACTAM SOD 3,000 MG in 0.9 % SODIUM CHLORIDE 100 ML IV SCH ×2 (04:32→10:02)
[2022-01-14] MEDS: GABAPENTIN 300 MG CAP PO SCH (09:43)
[2022-01-14] MEDS: FOLIC ACID 1 MG TAB PO SCH (09:44)
[2022-01-14] MEDS: SENNA 8.6 MG TAB PO SCH (09:44)
[2022-01-14] MEDS: HYDROCORTISONE 10 MG TAB PO SCH (09:44)
[2022-01-14] MEDS: ATORVASTATIN 40 MG TAB PO SCH (09:44)
[2022-01-14] MEDS: buPROPion HCl 100 MG TABLET PO SCH (09:44)
[2022-01-14] MEDS: TAMSULOSIN HCL 0.4 MG CAP PO SCH (09:44)
[2022-01-14] MEDS: MIDODRINE HCL 2.5 MG TAB PO SCH (09:45)
[2022-01-14] MEDS: CLOPIDOGREL BISULFATE 75 MG TAB PO SCH (09:45)
[2022-01-14] MEDS: FINASTERIDE 5 MG TAB PO SCH (09:46)
[2022-01-14] MEDS: PANTOprazole 40 MG TAB PO SCH (09:46)
[2022-01-14] MEDS: UMECLIDINIUM/VILANTEROL 62.5/25MCG 7 PUFFS/INHALER INH SCH (09:47)
[2022-01-14] MEDS: FLUTICASONE FUROATE 100MCG 14 PUFFS/INHALER INH SCH (09:47)
[2022-01-14] MEDS: ASPIRIN 81 MG CHEW PO SCH (10:01)
[2022-01-14] MEDS: TOBRAMYCIN/DEXAMETHASONE OPH SUSP 2.5 ML BTL OT SCH (10:02)
--- NOTE | 2022-01-14 12:49 | Discharge Summary ---
Date of Service January 14, 2022 Admission HPI Per Admitting Provider 66yo M w/ hx of adrenal insufficiency, COPD, HTN, esophageal stenosis, and hypoxemia who presents with hypoxemia and altered mental status. The patient is a very poor historian. He is AAOx3 (self, hospital, month/year, though not sure of day), but cannot really give me any pertinent history. He reports he maybe "felt hot" today, but otherwise, cannot give me any events leading up to his arrival in the hospital. He notes that his breathing is presently good. He notes that his left ear is painful, but otherwise has no acute complaints. Per ER physician, he was found by EMS with SpO2 in the 60% range and was ashen reagan. It is not clear to me who called EMS and what his living arrangement is, though prior PCP note from 11/2021 indicates he lives at home with home health. Principal Diagnosis Aspiration pneumonia, acute on chronic respiratory failure with hypoxia Discharge Exam Constitutional WD/WN, vitals as above Eyes + anicteric sclerae ENMT external ear and nose normal, oropharynx normal Neck trachea midline, no thyromegaly Respiratory normal respiratory effort; no cough Auscultation: + crackles (left base); no wheezes Cardiovascular RRR, no murmur, no edema Chest (Breasts) Chest: normal inspection of chest Gastrointestinal (Abdomen) normal bowel sounds, soft, nontender, no hepatosplenomegaly Musculoskeletal Extremities: + extremities abnormal to inspection (right hand with edema much improved), no cyanosis and no clubbing Skin no rashes, warm and dry Neurologic moves all extremities and awake; no focal motor deficits Psychiatric A+Ox3, euthymic affect Lymphatic no lymphedema Discharge Data Allergies Allergy/AdvReac Type Severity Reaction Status Date / Time ciprofloxacin Allergy Mild RASH Verified 01/11/22 19:05 vancomycin Allergy Mild RASH Verified 01/11/22 19:05 sulfamethoxazole Allergy Unknown Unknown Verified 01/11/22 19:05 [From Bactrim] trimethoprim [From Bactrim] Allergy Unknown Unknown Verified 01/11/22 19:05 Consultations 01/11/22 19:22 ED Decision to Admit Stat 01/11/22 23:42 Consult Pulmonology Routine 01/12/22 21:34 Consult Gastroenterology Routine Ordered Studies 01/11/22 18:47 CT head/brain wo con Stat 01/11/22 20:21 CT chest diagnostic wo con Routine Hospital Course (1) Acute hypoxemic respiratory failure: Presented with POx 60% reportedly, suspect aspiration given his frequent vomiting/regurgitation of food he reports-typically gets serial esophageal dilations CXR on admission does show bilateral pleural effusions and mild vascular congestion, although he has had these for some time - CT chest with possible PNA and parapneumonic effusion. - BNP, procalcitonin ordered -> Both normal. Now back on home O2 of 3LNC no respiratory distress - received Unasyn for presumed aspiration pneumonia-plan to convert to po Augmentin on dc to finish 7 day course - Pulm and MUSEUM PREPARATOR consults entered. (Last pulm visit was in 10/2021 when he planned for repeat CT scan.) PULM tapped effusion but suspects trapped lung. No evidence of empyema, PULM signing off no growth in cultures but final pending at time of discharge (2) Emesis: secondary to esophageal stenosis as above consulted GI given ongoing frequent post-prandial emesis--> cannot dilate as would have to hold his Plavix has dilation planned for first week Sept continue with pureed diet until then, encouraged to take small sips of fluids (3) Encephalopathy: Now resolved In fact, is the best mental status I have ever seen with this patient compared to when he had his 3 month hospital stay late last year into early 2020 No focal deficits to indicate acute CVA. Was 2/2 hypoxemia (4) Adrenal insufficiency: Dxd during last hospital stay and much improved on po hydrocortisone Was given hydrocortisone 100 mg IV in the ER for BP of 70/50. Possibly not taking his home hydrocortisone as his BP was 80/55 at a PCP's visit on 11/10/2021, and he declined ER visit at that time. - BPnow stable - Continue home hydrocortisone 10 mg QAM and 5 mg QPM; can increase if needed. continue midodrine has upcoming appt with Endocrine Question if may need fludrocortisone added on? Defer to Endocrine (5) Otitis externa: Left otitis externa, with possible otitis media. TMs not visualized on exam due to pus in ear canal. No systemic signs of infection however. - Started Unasyn (both for possible pneumonia as well as ear) & Tobra-Dex drops - At this point, do not see indication for ENT evaluation as it appears fairly straightforward. No spreading erythema to indicate superimposed cellulitis. No fluctuance to indication abscess (none noted on CT head either). No tenderness over mastoid process. improved culture with pin point growth at time of dc (6) Anemia: Baseline hgb ~11-12; presently at baseline. MCV however has been getting lower. - Anemia labs in AM show nothing abnormal likely of chronic disease - Monitor (7) COPD (chronic obstructive pulmonary disease) with chronic bronchitis: Seen by pulm in 10/2021. Stable at that time. No wheezing today to indicate acute COPD exacerbation. - Continue home maintenance inhaler. - Albuterol PRN (8) History of lung cancer: Prior adenocarcinoma of lung. No indication of active malignancy. - Pulm consult as above (9) Benign prostate hyperplasia: No LUTS this evening. - Continue home tamsulosin (I think now that he has his steroids, BP should be stable enough for this) & finasteride (10) DVT prophylaxis: SCDs Dispo-dc to home [facility] FULL CODE per patient Total Time Total Time Spent Total Time Spent (In Minutes): 35 min Discharge Plan Discharge Items Patient Disposition: Home - Home Health Services Reason For Visit: HYPOXEMIA, ENCEPHALOPATHY Discharge Diagnosis: Aspiration Pneumonia, Acute hypoxic respiratory failure,Chronic pleural effusion Condition on Discharge: Fair Activity: Resume your previous activity Non-emergency contact: Primary Care Provider, Computer Forensics Investigator and Planner Call non-emergency contact if: you have any medication questions, your symptoms worsen and you have a fever Follow-up/Referrals: John Johnson CRNP [Primary Care Provider] - (Follow up within 1-2 weeks) Asim Randolph MD [Physician] - (Keep your scheduled appointment for your EGD in February) Diet: Heart Healthy Diet Texture: Pureed (blended smooth) Addtl Attending Provider Instructions: Please finish out your course of antibiotics twice a day for your pneumonia. Continue your inhalers. Please eat and drink small amounts at a time to avoid vomiting. Pending Studies at Discharge: Yes Studies:: Ear culture, pleural fluid cultures Stand-Alone Forms: My [facility] [employer], Smoking Cessation Medications and DC Order Prescriptions: New tobramycin-dexamethasone 0.3-0.1 % Drops,Suspension 5 drp otic (ear) BID 3 Days Qty: 10 0RF Rx Instructions: Please give bottle from hospital amoxicillin-pot clavulanate 875-125 mg tablet 1 tab PO BID Qty: 7 0RF Continued (DME) miscellaneous medical supply Misc See Dose Instructions .ROUTE .MEDSUPPLY Qty: 1 0RF Dose Instruction: As directed Rx Instructions: Bath bench albuterol sulfate [Ventolin HFA] 90 mcg/actuation HFA aerosol inhaler 2 puff INH QID PRN (Reason: shortness of breath or wheezing) Qty: 18 4RF atorvastatin 40 mg tablet 40 mg PO QAM 30 Days Qty: 90 1RF clopidogrel 75 mg tablet 75 mg PO QAM 30 Days Qty: 90 1RF melatonin 5 mg tablet 5 mg PO HS gabapentin 300 mg capsule 300 mg PO TID Rx Instructions: Take 1 cap PO qhs x 3 days, then 1 cap PO BID x 3 days, then 1 cap PO TID; tamsulosin 0.4 mg capsule 0.4 mg PO QAM aspirin 81 mg tablet,chewable 81 mg PO QAM dutasteride [Avodart] 0.5 mg capsule 0.5 mg PO QAM bupropion HCl 100 mg tablet 100 mg PO QAM Label Comments: QAM folic acid 1 mg tablet 1,000 mcg PO QAM Trelegy Ellipta 100-62.5-25 mcg blister with device 1 inh inhalation QAM Label Comments: QAM sennosides [Senokot] 8.6 mg Tablet 8.6 mg PO QAM Qty: 7 0RF polyethylene glycol 3350 [Miralax] 17 gram Powder In Packet 17 g PO TID Qty: 21 0RF hydrocortisone [Cortef] 10 mg Tablet See Rx Instructions .ROUTE .COMPLEX Qty: 45 0RF Rx Instructions: 10 mg orally 8am, 5mg orally at bedtime quetiapine 25 mg tablet 25 mg PO HS Qty: 0 0RF lansoprazole 30 mg capsule,delayed release(DR/EC) 30 mg PO QAM midodrine 5 mg tablet 5 mg PO TID Qty: 90 0RF Rx Instructions: do not give last dose of day after 6PM or within 4 hrs of bedtime Discontinued omeprazole 20 mg capsule,delayed release(DR/EC) 20 mg PO QAM pantoprazole 40 mg tablet,delayed release (DR/EC) 40 mg PO AMHS Discharge Orders: Discharge Order (Routine); Ordered 01/14/22 Ordered By: Kim Medina Admission Data Admit Date/Time: 01/11/22 20:21 Attending Provider: Kim Medina Admit Provider: Raj Mcclain Primary Care Provider: John Johnson Other Providers: Raj Mcclain ; Doug Morin ; Asim Randolph ; [facility] Coding Level of Care Code D/C DAY MANAGEMENT >30 MINS Diagnoses Acute hypoxemic respiratory failure J96.01 Emesis R11.10 Encephalopathy G93.40 Adrenal insufficiency E27.40 Otitis externa H60.90 Anemia D64.9 COPD (chronic obstructive pulmonary disease) with chronic bronchitis J44.9 History of lung cancer Z85.118 Benign prostate hyperplasia N40.0 DVT prophylaxis Z29.9
--- NOTE | 2022-02-04 07:54 | Coding Query ---
CODING QUERY To promote full compliance with coding requirements relating to patient care, provider participation is requested in all cases of computer networking instructor adjunct uncertainty. Please assist us with the question(s) below: Coding Question(s): Please confirm if the possible sepsis documented in Dr. Bobo hospitalist note for 01/12/22 is a confirmed diagnosis or if it was ruled out. Physician's Response(s): She is still here and actually discharged the patient. Could you ask her? I only admitted the patient, so I do not know if she ruled it out or not. Thank you Jennifer Mathews Principal Diagnosis: "that condition established after study, to be chiefly responsible for occasioning the admission of the patient to the hospital for care." Co-Existing Principal Diagnosis: "when two or more diagnoses equally meet the criteria for principal diagnosis as determined by the circumstances of admission, diagnostic work up, and/or therapy provided, and the Alphabetic Index, Tabular List, or another coding guideline does not provide sequencing direction, any one of the diagnoses may be sequenced first." "When the physician has documented what appears to be a current diagnosis in the body of the record, but has not included the diagnosis in the final diagnostic statement, the physician should be asked whether the diagnosis should be added." (Source Coding [facility] 2 QTR90. p3-4) AMELIA
--- NOTE | 2022-02-16 10:28 | Coding Query ---
CODING QUERY To promote full compliance with coding requirements relating to patient care, provider participation is requested in all cases of recruitment manager uncertainty. Please assist us with the question(s) below: Coding Question(s): Please confirm if the possible sepsis documented in the progress note for 01/12/22 is a confirmed diagnosis or if the condition was ruled out. Physician's Response(s): possible sepsis is confirmed diagnosis Thank you Jennifer Mathews Principal Diagnosis: "that condition established after study, to be chiefly responsible for occasioning the admission of the patient to the hospital for care." Co-Existing Principal Diagnosis: "when two or more diagnoses equally meet the criteria for principal diagnosis as determined by the circumstances of admission, diagnostic work up, and/or therapy provided, and the Alphabetic Index, Tabular List, or another coding guideline does not provide sequencing direction, any one of the diagnoses may be sequenced first." "When the physician has documented what appears to be a current diagnosis in the body of the record, but has not included the diagnosis in the final diagnostic statement, the physician should be asked whether the diagnosis should be added." (Source Coding [facility] 2 QTR90. p3-4) AMELIA
== END 2022-01-14 15:35 | disposition home health service (06) | DRG 177 ==
LOC: ED 17:56 → SUATTDRO 20:21 → 2S 20:21

== ENCOUNTER 2022-02-10 11:09 | Inpatient (IN) ==
[2022-02-10] MEDS ORDERED: ACETAMINOPHEN 1,000 MG/100 ML VIAL IV STA (11:26)
[2022-02-10] MEDS ORDERED: SODIUM CHLORIDE 0.9% 1000ML 1,000 ML IV SCH (11:30)
[2022-02-10 11:32] LABS: Basophils # (auto) 0.08 K/uL (0-0.2); Basophils % (auto) 0.4 %; Eosinophils # (auto) 0.22 K/uL (0-0.50); Hematocrit (blood only) 45.4 % (40.1-51.0); Hemoglobin 14.7 g/dl (14.0-18.0); Immature Granulocytes # (auto) 0.07 K/uL (0.00-0.02); Immature Granulocytes % (auto) 0.3 %; Lymphocytes # (auto) 1.26 K/uL (1.2-3.4); Mean Corpuscular Hemoglobin 26.6 pg (25.0-34.0); Mean Corpuscular Hgb Conc 32.4 g/dL (32.0-36.0); Mean Corpuscular Volume 82.1 fL (80.0-100.0); Mean Platelet Volume 10.3 fL (9.4-12.4); Monocytes # (auto) 0.94 K/uL (0.24-0.82); Monocytes % (auto) 4.5 %; Neutrophils # (auto) 18.43 K/uL (1.4-6.5); Neutrophils % (auto) 87.8 %; Platelet Count 268 K/uL (130-400); RDW Coefficient of Variation 19.9 % (11.5-14.5); RDW Standard Deviation 57.4 fL (36.4-46.3); Red Blood Count 5.53 M/uL (4.63-6.08)
[2022-02-10 11:37] LABS: iSTAT Creatinine 1.9 mg/dl (0.6-1.3); iSTAT Hemoglobin 15.3 g/dl (14.0-18.0); iSTAT Ionized Calcium 1.15 mmol/l (1.12-1.32); iSTAT Potassium 3.8 mmol/L (3.3-5.0)
[2022-02-10 11:45] LABS: INR 1.2 (0.9-1.1); Partial Thromboplastin Ratio 1.2; Partial Thromboplastin Time 31.9 Seconds (21.0-31.0); Prothrombin Time 12.9 Seconds (9.0-12.0)
--- NOTE | 2022-02-10 11:57 | CT Scan Report ---
HEAD CT NONCONTRAST CT DOSE: 614.27 mGy.cm HISTORY: Altered mental status. TECHNIQUE: Multiaxial CT images of the head were performed without the use of intravenous contrast. A utomated exposure control was utilized for this study. A dose lowering technique was utilized adheri ng to the principles of ALARA. Comparison: Head CT 01/11/2022. Findings: The paranasal sinuses and mastoid air cells are clear. The calvarium and skull base are int act. There is no mass, hematoma, midline shift, acute infarct. White matter hypodensity is nonspecifi c but suggestive of microvascular ischemic change. The ventricles and sulci demonstrate mild age-rela danica involutional changes. 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 Impression: No acute intracranial abnormality. ACT 112: Negative or not required by law. Electronically signed by: Patricio Burger M.D. 02/10/2022 11:55 AM
[2022-02-10 12:04] LABS: Albumin Level 4.1 gm/dl (3.4-5.0); BUN Creatinine Ratio 7.4 (10-20); Bilirubin,Total 1.1 mg/dl (0.2-1.0); Calcium 9.6 mg/dl (8.5-10.1); Creatinine Clr Calc Pharmacy 37.4 ml/min; Est GFR (African American) 41.3 ml/min; Est GFR (Non-African American) 35.7 ml/min; Potassium 3.7 mmol/L (3.5-5.1); Total Protein 8.1 gm/dl (6.0-8.3)
[2022-02-10 12:05] LABS: Troponin I High Sensitivity 24.8 pg/ml (0-20)
[2022-02-10 12:07] LABS: Appearance Urine Clear (Clear); Bilirubin Urine Negative (Negative); Blood Urine Negative (Negative); Color Urine Yellow; Glucose Urine UA Negative (Negative); Ketones Urine Trace (Negative); Leukocyte Esterase Urine Negative (Negative); Nitrite Urine Negative (Negative); Protein Urine Negative (Negative); Specific Gravity Urine 1.005 (1.000-1.030); Urobilinogen Urine Negative (Negative); pH Urine 6.5 (4.5-7.5)
[2022-02-10 12:15] LABS: Base Excess VBG -3.4 mEq/L; HCO3 VBG 24 mmol/L; Oxygen Saturation VBG < 60.0 %; PCO2 VBG 49 mmHg (38-50); PO2 VBG 31 mmHg; pH VBG 7.29 (7.36-7.41)
[2022-02-10] MEDS ORDERED: SODIUM CHLORIDE 0.9% 1000ML 1,000 ML IV ONE (12:26)
[2022-02-10] MEDS ORDERED: SODIUM CHLORIDE 0.9% 1000ML 500 ML IV ONE (12:26)
[2022-02-10] MEDS ORDERED: PIPERACILLIN/TAZOBACTAM 4.5 GM/120 ML BAG IV ONE (12:31)
[2022-02-10] MEDS ORDERED: DEXTROSE 50% 50 ML SYRINGE IV ONE (12:31)
--- NOTE | 2022-02-10 12:33 | XRay Report ---
XR chest 1V portable CLINICAL HISTORY: Sepsis. History of lung cancer. COMPARISON STUDY: Chest CT January 11, 2022. Chest radiograph January 12, 2022. FINDINGS: There is no pneumothorax. A small to moderate left pleural effusion is again noted. Right i nfrahilar opacity is unchanged and favors scarring. Interstitial thickening is unchanged. Cardiomedia stinal silhouette is stable. IMPRESSION: 1. No significant change in a small to moderate left pleural effusion. No pneumothorax. 2. Persistent right infrahilar opacity. This favors scarring but should be assessed on follow-up exam s. 3. Mild interstitial pulmonary edema. ACT 112: Negative or not required by law. Electronically signed by: Delio Head M.D. 02/10/2022 12:31 PM
[2022-02-10] MEDS ORDERED: HYDROCORTISONE SOD SUCCINATE 100 MG/2 ML VIAL IV STA (13:12)
[2022-02-10] MEDS ORDERED: DOXYCYCLINE HYCLATE 100 MG in DEXTROSE 5% 100 ML IV ONE (13:30)
--- NOTE | 2022-02-10 13:51 | History & Physical Report ---
Date of Service February 10, 2022 Assessment & Plan (1) Sepsis: Plan: Patient presents hypotensive, hypoglycemic, hyperthermic with elevated WBC, Lactate, and PCT. Likely pulmonary source at this time with thick yellow sputum sent for culture - Evidence of organ dysfunction - lungs, MP, elevated HScTNI, INR 1.2 - Alternate sources possible- ear, pleural effusion - Blood and sputum sample pending - MRSA swab positive - but also with MRSA of ear- will add on Vancomycin - Zosyn and Doxy - 2 liters crystalloid infused with reduction in lactate - Hydrocortisone given in conjunction with fluid volume replacement- improved map - Follow hemodynamics and urine output - admit to PCU (2) COPD (chronic obstructive pulmonary disease) with chronic bronchitis: Plan: History of: On Albuterol and Trelegy at home as well as home oxygen - Continue with albuterol nebulizers scheduled with pulmonary cough assist and flutter valve - could consider maneb for pulmonary toileting if needed (3) Adrenal insufficiency: Plan: Hydrocortisone 100mg IV now follow with 50mg IV q8 - wean when hemondynamics and gluocse imporved - sliding scale insulin with steroid - continue midodrine - follow (4) Otitis externa: Plan: Improved as no drainage and less painful per patient- non tender to mastoid bone previous culture- 01/12/22 Org 1 = Staph aureus MRSA Org 2 = Stenotrophomonas maltophilia Org 3 = Staphylococcus aureus - consider imaging if WBC not responsive or continue source identification (5) Hypoglycemia: Plan: As above - continue with steroids, allow diet (6) Dysphagia: Plan: 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 with concern with aspiration - aspiration precautions (7) CKD (chronic kidney disease) stage 2, GFR 60-89 ml/min: Plan: ADELA II on CKD II baseline ASSOCIATE MEDIA DIRECTOR 0.9- 1.89 on admission - Swartz placed on arrival draining clear yellow urine - continue fluid resuscitation with bolus needed for hemodynamics/urine output (8) Benign prostate hyperplasia: Plan: Hold Avodart continue Tamsulosin (9) Elevated troponin: Plan: likely demand secondary to hypoxia and sepsis with MP - recheck HScTNI in am (10) Increased anion gap metabolic acidosis: Plan: Likely secondary to lactate and elevated ASSOCIATE MEDIA DIRECTOR 7.29 with normal CO2 and HCo3 - Gap minimal at 15 - treat as above History of Present Illness Primary Care Provider: PETE Chawla 67 YOM with medical history of: NSCLC stage III, PAD/PVD with fem-fem bypass, bilateral carotid occlusions(perfusion is done through is verts), HTN, COPD, BPH, bipolar disorder and chronic recurrent left pleural effusion. Patient lung cancer was IIIA adenocarcinoma and received chemo and radiation, Oxygen use, HTN, Bipolar, Adrenal Insufficiency, BPH, Esophageal Stenosis, Hiatal Hernia, otitis externa. Patient was previously admitted in January for hypoxic respiratory failure with superimposed pneumonia and pleural effusion with trapped lung. Patient was discharged on Augmentin and to home with his care givers. Patient presents today febrile hypotensive, hypoxic and with productive cough of thick yellow green sputum. Patient is encephalopathic and unsure if he is taking his medications at home. He states he thought he was going out to celebrate his birthday and ended up at the hospital. 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 He had routine labs performed to include lac abreu and blood cultures, and PCT. He was noted to have elevated WBC count to 21, with lactate 2.4 with down trend to 1.4 following 2 liters of crystalloid infusion. His PCT was elevated. He was also hypoglycemic on arrival with treatment of IV dextrose, repeat is pending. With his history of adrenal insufficiency will continue stress dose hydrocortisone 50mg IV q6 hours with wean back to his baseline BID dose when appropriate. He will be treated broadly for sepsis with presumed source at this time pulmonary. Hid CT scan is without any acute process. COVID test on admission is: NEGATIVE Allergies Allergy/AdvReac Type Severity Reaction Status Date / Time ciprofloxacin Allergy Mild RASH Verified 02/02/22 11:29 vancomycin Allergy Mild RASH Verified 02/02/22 11:29 sulfamethoxazole Allergy Unknown Unknown Verified 02/02/22 11:29 [From Bactrim] trimethoprim [From Bactrim] Allergy Unknown Unknown Verified 02/02/22 11:29 Home Medications Medication Instructions Recorded Confirmed Type miscellaneous medical supply #1 ea 08/07/21 01/11/22 Rx albuterol sulfate 90 mcg/actuation 2 puff inhalation QID PRN 08/13/21 02/02/22 Rx aerosol inhaler (Ventolin HFA) shortness of breath or wheezing #18 grams melatonin 5 mg tablet 5 mg PO HS 08/13/21 02/02/22 History clopidogrel 75 mg tablet 75 mg PO QAM 30 days #90 tabs 09/04/21 02/02/22 Rx aspirin 81 mg chewable tablet 81 mg PO QAM 10/01/21 02/02/22 History dutasteride 0.5 mg capsule 0.5 mg PO QAM 10/01/21 02/02/22 History (Avodart) fluticasone fur. 100 mcg-umeclid 1 inh inhalation QAM 10/01/21 02/02/22 History 62.5 mcg-vilant 25 mcg inhalat.powder (Trelegy Ellipta) folic acid 1 mg tablet 1,000 mcg PO QAM 10/01/21 02/02/22 History tamsulosin 0.4 mg capsule 0.4 mg PO QAM 10/01/21 02/02/22 History gabapentin 300 mg capsule 300 mg PO TID 10/22/21 02/02/22 History hydrocortisone 10 mg tablet See Rx Instructions .Route 11/04/21 02/02/22 Rx (Cortef) .COMPLEX #45 tabs polyethylene glycol 3350 17 gram 17 g PO TID #21 ea 11/04/21 02/02/22 Rx oral powder packet (Miralax) quetiapine 25 mg tablet 25 mg PO HS #0 tabs 11/04/21 02/02/22 Rx sennosides 8.6 mg tablet (Senokot) 8.6 mg PO QAM #7 tabs 11/04/21 02/02/22 Rx lansoprazole 30 mg capsule,delayed 30 mg PO QAM 01/11/22 02/02/22 History release amoxicillin 875 mg-potassium 1 tab PO BID #7 tabs 01/14/22 02/02/22 Rx clavulanate 125 mg tablet midodrine 5 mg tablet 5 mg PO TID #90 tabs 01/14/22 02/02/22 Rx tobramycin 0.3 %-dexamethasone 0.1 1 drp ophthalmic (eye) QID #2.5 mL 01/21/22 02/02/22 Rx % eye drops,suspension (TobraDex) atorvastatin 40 mg tablet 40 mg PO QAM 90 days #90 tabs 01/29/22 02/02/22 Rx bupropion HCl 100 mg tablet 100 mg PO QAM #90 tabs 02/09/22 Rx Past Med/Surg History Medical History Ataxic gait Bacteremia due to methicillin resistant Staphylococcus aureus hx? patient unsure of details Benign prostate hyperplasia Bilateral carotid artery occlusion Bipolar disorder Chlamydial proctitis hx 2018? Confusion poor historian COPD (chronic obstructive pulmonary disease) with chronic bronchitis Esophageal stenosis GERD (gastroesophageal reflux disease) Hepatic steatosis Hiatal hernia History of COVID-19 07/2020 ([facility]) HOSPITALIZED AT [facility] History of esophageal dilatation History of lung cancer (01/2016) 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 Hospitalization within last [address] [facility] for several days -- patient unsure of why he was here? HTN (hypertension) Hypertension Medical marijuana use On anticoagulant therapy plavix daily On home oxygen therapy 3L n/c prn for SOB Osteomyelitis Peripheral arterial disease Peripheral neuropathy Pneumonia possible recent pneumonia? patient unsure. 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 S/P thoracentesis (05/2019) L pleural effusion Status post femorofemoral bypass surgery (06/2016) [place] teeth removed Family History Brother Myocardial infarction Father Myocardial infarction Other Cancer Family history non-contributory Lung disease No family history of adverse response to anesthesia Denies family history of Tuberculosis Ovarian cancer Prostate cancer Diabetes Heart disease Allergies Breast cancer Emphysema, unspecified Lung cancer Colorectal cancer Asthma Social History Smoking Status: Former smoker Tobacco Type: Cigarettes Age Started Using Tobacco: 10; packs per day: 0.5; Years Smoked: 30; Cigarettes Per Day: 6-8 DAILY; Second Hand Exposure: No; Do You Dip or Chew Tobacco: No; Tobacco Cessation Education Requested by Patient: No Hx Alcohol Use: Yes Alcohol type: beer Alcohol Intake Frequency: 4 or More x per/Week Alcohol Intake Frequency Comment: mostly daily Hx Substance Use: No (medical THC (uses as directed)) Preferred Language: Yakut Communication Ability: Effective Visual Impairment: No Limitations Hearing Ability: Normal Casket Inspector Required: No Beliefs That Will Affect Care: None marital status: Current Living Situation: Alone Current Living Situation Comment: Pt does have caregivers current occupational status: disabled How many Children do You have: 2 Other Information That Helps Us Care for You: No Feels Safe at Home: Yes Safety Concerns: Feels Safe At This Time Childhood Exposure to Second-Hand Smoke: Yes Diet Comment: regular caffeine: Yes (coffee 1 pot a day) during the past year weight has: remained stable Dental Care, Regularly: No Physical Activity Frequency: Does not Exercise Seatbelt Use: always Sunscreen Use: No Assistive Devices: Denture - Upper, Denture - Lower, Glasses and Wheelchair Review of Systems Review of Systems: REVIEW OF SYSTEMS: Constitutional: (+) fever, sweats or chills Eyes: No diplopia, no worsening or blurred vision ENT: (+) left ear remains with some erythema and tenderness, no trouble swallowing Respiratory: (+) cough, sputum, dyspnea at rest or on exertion Cardiovascular: No chest pain, tightness or palpitations Abdomen: No pain, nausea, vomiting, diarrhea or constipation Musculoskeletal: No joint pain, calf pain, swelling Neurologic: No weakness, numbness/tingling, or balance problems Psychiatric: No anxiety or depression Skin: (+) scratch to right leg superficial, rubor to bilateral feet Physical Exam Physical Exam: PHYSICAL EXAM: General: awake, alert, confused Head: Normocephalic, atraumatic ENT: PERRL, EOMI, no pharyngeal exudate, mucous membranes dry, left ear with what appears improved otitis externa, tender with palpation, no drainage Neuro: AAO x 3, speech clear and appropriate, strength intact bilaterally 5/5, sensation intact and equal all extremities and dermatomes, no pronator drift Chest: equal rise and fall of the chest, no accessory muscle use, no heaves or thrills, scattered rhonchi with decrease in bases Cardiac: Regular rate and rhythm, telemetry reviewed, skin warm dry, cap refill <3 seconds, peripheral pulses +2 upper, 1+ lower no JVD, no edema GI: NABS x 4 quadrants, soft, nontender to palpation, no rebound, guarding or tenderness : Swartz to gravity Psych: Normal mood and affect Skin: scratch to left foot superficial scabbed over, rubor to bilateral feet, right > left cool Results & Data Results & Data ([facility]) Vital Signs (Past 12 Hours) Vital Signs Temp Pulse Pulse Resp BP BP Pulse Ox 02/10/22 13:34 74 25 H 94/50 L 98 02/10/22 13:11 75 18 99/56 L 97 02/10/22 12:53 77 27 H 76/48 L 98 02/10/22 12:41 91/54 L 02/10/22 12:30 77 25 H 81/54 L 100 02/10/22 12:25 98 02/10/22 11:58 02/10/22 11:58 39.1 C H 24 93/73 L 02/10/22 11:58 98 02/10/22 11:43 39.1 C H 90 33 H 93/73 L 98 02/10/22 11:43 90 98 02/10/22 11:28 39.1 C H 101 H 32 H 92/50 L 95 O2 Del Method O2 Flow Rate 02/10/22 13:34 Nasal Cannula 2 02/10/22 13:11 Nasal Cannula 2 02/10/22 12:53 Nasal Cannula 2 02/10/22 12:41 02/10/22 12:30 Nasal Cannula 2 02/10/22 12:25 Nasal Cannula 3 02/10/22 11:58 Nasal Cannula 5 02/10/22 11:58 02/10/22 11:58 Nasal Cannula 5 02/10/22 11:43 Non-rebreather 02/10/22 11:43 Non-rebreather 02/10/22 11:28 High Flow Nasal Cannula Laboratory Results Abnormal lab results 02/10/22 02/10/22 02/10/22 Range/Units 11:20 11:20 11:20 WBC 21.00 H (4.8-10.8) K/ul RDW Std Deviation 57.4 H (36.4-46.3) fL RDW Coeff of Raul 19.9 H (11.5-14.5) % Neut # (Auto) 18.43 H (1.4-6.5) K/uL [place] # (Auto) 0.94 H (0.24-0.82) K/uL Immature Gran # (Auto) 0.07 H (0.00-0.02) K/uL PT 12.9 H (9.0-12.0) Seconds INR 1.2 H (0.9-1.1) APTT 31.9 H (21.0-31.0) Seconds VBG pH (7.36-7.41) Anion Gap 15 H (3-11) Creatinine 1.89 H (0.6-1.4) mg/dl POC Creatinine (0.6-1.3) mg/dl BUN/Creatinine Ratio 7.4 L (10-20) Glucose 62 L (70-99(Fasting)) mg/dl POC Glucose (70-99) mg/dl POC Glucose (other) (70-99) mg/dl Lactate (0.4-2.0) mmol/L Total Bilirubin 1.1 H (0.2-1.0) mg/dl Troponin I High Sens 24.8 H D (0-20) pg/ml Procalcitonin (0-0.5) ng/ml Urine Ketones (Negative) 02/10/22 02/10/22 02/10/22 Range/Units 11:20 11:20 11:25 WBC (4.8-10.8) K/ul RDW Std Deviation (36.4-46.3) fL RDW Coeff of Raul (11.5-14.5) % Neut # (Auto) (1.4-6.5) K/uL [place] # (Auto) (0.24-0.82) K/uL Immature Gran # (Auto) (0.00-0.02) K/uL PT (9.0-12.0) Seconds INR (0.9-1.1) APTT (21.0-31.0) Seconds VBG pH (7.36-7.41) Anion Gap (3-11) Creatinine (0.6-1.4) mg/dl POC Creatinine 1.9 H (0.6-1.3) mg/dl BUN/Creatinine Ratio (10-20) Glucose (70-99(Fasting)) mg/dl POC Glucose (70-99) mg/dl POC Glucose (other) 69 L* (70-99) mg/dl Lactate 2.4 H* (0.4-2.0) mmol/L Total Bilirubin (0.2-1.0) mg/dl Troponin I High Sens (0-20) pg/ml Procalcitonin 4.20 H (0-0.5) ng/ml Urine Ketones (Negative) 02/10/22 02/10/22 02/10/22 Range/Units 11:42 11:54 12:58 WBC (4.8-10.8) K/ul RDW Std Deviation (36.4-46.3) fL RDW Coeff of Raul (11.5-14.5) % Neut # (Auto) (1.4-6.5) K/uL [place] # (Auto) (0.24-0.82) K/uL Immature Gran # (Auto) (0.00-0.02) K/uL PT (9.0-12.0) Seconds INR (0.9-1.1) APTT (21.0-31.0) Seconds VBG pH 7.29 L (7.36-7.41) Anion Gap (3-11) Creatinine (0.6-1.4) mg/dl POC Creatinine (0.6-1.3) mg/dl BUN/Creatinine Ratio (10-20) Glucose (70-99(Fasting)) mg/dl POC Glucose 217 H (70-99) mg/dl POC Glucose (other) (70-99) mg/dl Lactate (0.4-2.0) mmol/L Total Bilirubin (0.2-1.0) mg/dl Troponin I High Sens (0-20) pg/ml Procalcitonin (0-0.5) ng/ml Urine Ketones Trace H (Negative) 02/10/22 Range/Units 13:46 WBC (4.8-10.8) K/ul RDW Std Deviation (36.4-46.3) fL RDW Coeff of Raul (11.5-14.5) % Neut # (Auto) (1.4-6.5) K/uL [place] # (Auto) (0.24-0.82) K/uL Immature Gran # (Auto) (0.00-0.02) K/uL PT (9.0-12.0) Seconds INR (0.9-1.1) APTT (21.0-31.0) Seconds VBG pH (7.36-7.41) Anion Gap (3-11) Creatinine (0.6-1.4) mg/dl POC Creatinine (0.6-1.3) mg/dl BUN/Creatinine Ratio (10-20) Glucose (70-99(Fasting)) mg/dl POC Glucose 187 H (70-99) mg/dl POC Glucose (other) (70-99) mg/dl Lactate (0.4-2.0) mmol/L Total Bilirubin (0.2-1.0) mg/dl Troponin I High Sens (0-20) pg/ml Procalcitonin (0-0.5) ng/ml Urine Ketones (Negative) Diagnostic Findings Chest X-Ray 02/10/22 11:21 XR chest 1V portable CLINICAL HISTORY: Sepsis. History of lung cancer. COMPARISON STUDY: Chest CT January 11, 2022. Chest radiograph January 12, 2022. FINDINGS: There is no pneumothorax. A small to moderate left pleural effusion is again noted. Right infrahilar opacity is unchanged and favors scarring. Interstitial thickening is unchanged. Cardiomediastinal silhouette is stable. IMPRESSION: 1. No significant change in a small to moderate left pleural effusion. No pneumothorax. 2. Persistent right infrahilar opacity. This favors scarring but should be assessed on follow-up exams. 3. Mild interstitial pulmonary edema. ACT 112: Negative or not required by law. Electronically signed by: Delio Head M.D. 02/10/2022 12:[address] 02/10/22 11:[address] DOSE: 614.27 mGy.cm HISTORY: Altered mental status. TECHNIQUE: Multiaxial CT images of the head were performed without the use of intravenous contrast. Automated exposure control was utilized for this study. A dose lowering technique was utilized adhering to the principles of ALARA. Comparison: Head CT 01/11/2022. Findings: The paranasal sinuses and mastoid air cells are clear. The calvarium and skull base are intact. There is no mass, hematoma, midline shift, acute infarct. White matter hypodensity is nonspecific but suggestive of microvascular ischemic change. The ventricles and sulci demonstrate mild age-related involutional changes. 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 Impression: No acute intracranial abnormality. ACT 112: Negative or not required by law. Electronically signed by: Patricio Burger M.D. 02/10/2022 11:55 AM Medications Administered Discontinued Medications Dextrose (Dextrose 50% 50 Ml Syringe) 50 ml IV NOW ONE Stop: 02/10/22 12:32 Last Admin: 02/10/22 12:35 Dose: 50 ml Documented By: MES Hydrocortisone Sodium Succinate (Hydrocortisone Sod Succinate 100 Mg/2 Ml Vial) 100 mg IV NOW STA Stop: 02/10/22 13:13 Last Admin: 02/10/22 13:30 Dose: 100 mg Documented By: MES Sodium Chloride (Nss 1000ml) 1,000 mls @ 999 mls/hr IV .Q1H1M GERMAN Stop: 02/10/22 12:30 Last Infusion: 02/10/22 12:52 Dose: 0 mls/hr Documented By: Admin: 02/10/22 11:48 Dose: 999 mls/hr Documented By: MES Acetaminophen (Ofirmev) 1,000 mg in 100 mls @ 400 mls/hr IV NOW STA Stop: 02/10/22 11:40 Last Infusion: 02/10/22 12:04 Dose: 0 mls/hr Documented By: Admin: 02/10/22 11:48 Dose: 400 mls/hr Documented By: MES Sodium Chloride (Nss 1000ml) 1,000 mls @ 999 mls/hr IV .Q1H1M ONE Stop: 02/10/22 13:26 Last Infusion: 02/10/22 13:33 Dose: 0 mls/hr Documented By: Admin: 02/10/22 12:28 Dose: 999 mls/hr Documented By: MES Sodium Chloride (Nss 1000ml) 500 mls @ 999 mls/hr IV .Q31M ONE Stop: 02/10/22 12:56 Last Infusion: 02/10/22 13:33 Dose: 0 mls/hr Documented By: Admin: 02/10/22 12:53 Dose: 999 mls/hr Documented By: MES Piperacillin Sod/Tazobactam Sod (Zosyn) 4.5 gm in 120 mls @ 240 mls/hr IV NOW ONE Stop: 02/10/22 13:00 Last Infusion: 02/10/22 13:09 Dose: 0 mls/hr Documented By: Admin: 02/10/22 12:36 Dose: 240 mls/hr Documented By: OMAR ECG Additional Comments: Sinus rhythm with occasional Premature ventricular complexes Nonspecific T wave abnormality Prolonged QT Abnormal ECG When compared with ECG of 11-JAN-2022 18:15, Premature ventricular complexes are now Present Nonspecific T wave abnormality, worse in Anterolateral leads Code Status & VTE Plan Code Status CODE: FULL - discussion with sister by EMD provider VTE: SCDS, Heparin 5000 units sub q q8 VTE Prophylaxis Plan VTE Prophylaxis will be ordered: Yes Supervising Physician Co-Signing Physician Notes I supervised PETE Dee on this admission. I interviewed and examined the patient independently of him. The plan is as written in his note except for any following changes/exceptions: None 67yo M w/ hx of CHF, COPD who presents with concern for HCAP pneumonia or other source of infection. Was admitted in early January with CHF and effusion, along with possible aspiration pneumonia. Attempted thoracentesis on last admission with minimal fluid removed (250 mL) and recommendation for decortication. Treated and discharged home. Now returning with signs of sepsis including fever, leukocytosis, and low blood pressure. Will treat for HCAP, follow cultures. Can more fully check out left ear with imaging if no source found, though it clinically looks much improved compared to my exam on his prior admission ~1 month ago. PG Care Time/CCT Total # of Minutes Spent Total Time Spent with Patient: Total time spent is greater than 50% in coordination of care (as documented) at patient's floor/unit and/or counseling patient: [id number]: 45 minutes critical care time spent evaluating patient, reviewing records, ordering and interpreting diagnostics, images separately reviewed by me. Coding Level of Care Code 19655 Initial Inpt Care Lvl 3 Diagnoses Sepsis A41.9 COPD (chronic obstructive pulmonary disease) with chronic bronchitis J44.9 Adrenal insufficiency E27.40 Otitis externa H60.90 Hypoglycemia E16.2 Dysphagia R13.10 CKD (chronic kidney disease) stage 2, GFR 60-89 ml/min N18.2 Benign prostate hyperplasia N40.0 Elevated troponin R77.8 Increased anion gap metabolic acidosis E87.2
[2022-02-10] MEDS ORDERED: GLUCAGON FOR INJ 1 MG VIAL SQ PRN (14:52)
[2022-02-10] MEDS ORDERED: GLUCOSE 40% GEL 15 GM TUBE PO PRN (14:52)
[2022-02-10] MEDS ORDERED: HYDROCORTISONE SOD SUCCINATE 100 MG/2 ML VIAL IV SCH (14:52)
[2022-02-10] MEDS ORDERED: GLUCOSE 10 TAB/TUBE PO PRN (14:52)
[2022-02-10] MEDS ORDERED: ALBUTEROL HFA 8 GM INHALER INH PRN (15:00)
[2022-02-10] MEDS ORDERED: VANCOMYCIN CONSULT ACTIVE PRN ×2 (15:15)
[2022-02-10] MEDS ORDERED: VANCOMYCIN HCL 1 MG in SODIUM CHLORIDE 0.9% 250 ML IV STA (15:15)
[2022-02-10] MEDS: LACTATED RINGER'S 1,000 ML IV SCH (15:35)
[2022-02-10] MEDS ORDERED: VANCOMYCIN HCL 1,500 MG in SODIUM CHLORIDE 0.9% 500 ML IV ONE (15:45)
[2022-02-10] MEDS ORDERED: diphenhydrAMINE 50 MG/ML VIAL IV ONE (15:48)
--- NOTE | 2022-02-10 16:35 | Pharmacy Report ---
Pharmacy PK ABX Note - Date of Service February 10, 2022 - Assessment and Plan Assessment 67 year old M receiving vancomycin, zosyn, and doxycycline for treatment of sepsis due to presumed pulmonary source. Sputum culture pending, blood cultures pending. MRSA nasal (+). Patient with MP (SCr ~1.89, baseline ~0.8). Day #1 of antimicrobial therapy. Plan Vancomycin * Loading dose: 1500 mg IV x 1 * Given MP, plan to obtain a random level tomorrow AM to guide further dosing. Pharmacy will continue to follow and will adjust dose/frequency as necessary. Thank you. Pharmacy has transitioned to AUC monitoring for vancomycin. AUC/GLENNA is the preferred PK/PD target and is associated with decreased risk of nephrotoxicity compared to traditional trough targets.
[2022-02-10] MEDS: POLYETHYLENE (MIRALAX) 17 GM PACK PO SCH ×2 (17:04→20:04)
[2022-02-10] MEDS: MIDODRINE HCL 2.5 MG TAB PO SCH (17:04)
[2022-02-10] MEDS: TOBRAMYCIN/DEXAMETHASONE OPH SUSP 2.5 ML BTL OT SCH ×2 (17:04→20:05)
[2022-02-10] MEDS: HEPARIN SOD 5,000 UNIT/0.5 ML VIAL SQ SCH ×2 (17:27→21:38)
[2022-02-10] MEDS: GABAPENTIN 300 MG CAP PO SCH ×2 (17:27→20:04)
[2022-02-10] MEDS: INSULIN ASPART PER UNIT SC SCH ×2 (17:28→20:10)
[2022-02-10] MEDS: ALBUTEROL 0.083% NEBU SOLN 3 ML VIAL NEB SCH (19:06)
--- NOTE | 2022-02-10 19:10 | Emergency Department Note ---
History of Present Illness General Chief complaint: Confusion Stated complaint: AMS, Time Seen by Provider: 02/10/22 11:18 History of Present Illness Provider complaint: Altered mental status 67-year-old male presents emergency department for altered mental status. 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 Patient was hypoxic on EMS arrival but responded well to nonrebreather. Home Medications Medication Instructions Recorded Confirmed Type miscellaneous medical supply #1 ea 08/07/21 01/11/22 Rx albuterol sulfate 90 mcg/actuation 2 puff inhalation QID PRN 08/13/21 02/02/22 Rx aerosol inhaler (Ventolin HFA) shortness of breath or wheezing #18 grams melatonin 5 mg tablet 5 mg PO HS 08/13/21 02/02/22 History clopidogrel 75 mg tablet 75 mg PO QAM 30 days #90 tabs 09/04/21 02/02/22 Rx aspirin 81 mg chewable tablet 81 mg PO QAM 10/01/21 02/02/22 History dutasteride 0.5 mg capsule 0.5 mg PO QAM 10/01/21 02/02/22 History (Avodart) fluticasone fur. 100 mcg-umeclid 1 inh inhalation QAM 10/01/21 02/02/22 History 62.5 mcg-vilant 25 mcg inhalat.powder (Trelegy Ellipta) folic acid 1 mg tablet 1,000 mcg PO QAM 10/01/21 02/02/22 History tamsulosin 0.4 mg capsule 0.4 mg PO QAM 10/01/21 02/02/22 History gabapentin 300 mg capsule 300 mg PO TID 10/22/21 02/02/22 History hydrocortisone 10 mg tablet See Rx Instructions .Route 11/04/21 02/02/22 Rx (Cortef) .COMPLEX #45 tabs polyethylene glycol 3350 17 gram 17 g PO TID #21 ea 11/04/21 02/02/22 Rx oral powder packet (Miralax) quetiapine 25 mg tablet 25 mg PO HS #0 tabs 11/04/21 02/02/22 Rx sennosides 8.6 mg tablet (Senokot) 8.6 mg PO QAM #7 tabs 11/04/21 02/02/22 Rx lansoprazole 30 mg capsule,delayed 30 mg PO QAM 01/11/22 02/02/22 History release amoxicillin 875 mg-potassium 1 tab PO BID #7 tabs 01/14/22 02/02/22 Rx clavulanate 125 mg tablet midodrine 5 mg tablet 5 mg PO TID #90 tabs 01/14/22 02/02/22 Rx tobramycin 0.3 %-dexamethasone 0.1 1 drp ophthalmic (eye) QID #2.5 mL 01/21/22 02/02/22 Rx % eye drops,suspension (TobraDex) atorvastatin 40 mg tablet 40 mg PO QAM 90 days #90 tabs 01/29/22 02/02/22 Rx bupropion HCl 100 mg tablet 100 mg PO QAM #90 tabs 02/09/22 Rx Allergies Allergy/AdvReac Type Severity Reaction Status Date / Time ciprofloxacin Allergy Mild RASH Verified 02/02/22 11:29 vancomycin Allergy Mild RASH Verified 02/02/22 11:29 sulfamethoxazole Allergy Unknown Unknown Verified 02/02/22 11:29 [From Bactrim] trimethoprim [From Bactrim] Allergy Unknown Unknown Verified 02/02/22 11:29 Past Med/Surg History Medical History Ataxic gait Bacteremia due to methicillin resistant Staphylococcus aureus hx? patient unsure of details Benign prostate hyperplasia Bilateral carotid artery occlusion Bipolar disorder Chlamydial proctitis hx 2018? Confusion poor historian COPD (chronic obstructive pulmonary disease) with chronic bronchitis Esophageal stenosis GERD (gastroesophageal reflux disease) Hepatic steatosis Hiatal hernia History of COVID-19 07/2020 ([facility]) HOSPITALIZED AT [facility] History of esophageal dilatation History of lung cancer (01/2016) 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 Hospitalization within last 30 days treated at [facility] for several days -- patient unsure of why he was here? HTN (hypertension) Hypertension Medical marijuana use On anticoagulant therapy plavix daily On home oxygen therapy 3L n/c prn for SOB Osteomyelitis Peripheral arterial disease Peripheral neuropathy Pneumonia possible recent pneumonia? patient unsure. Poor historian Recurrent left pleural effusion s/p thoracentesis August 2018 Restless leg syndrome Schizoaffective disorder Surgical History H/O foot surgery LEFT HEEL REMOVAL FROM PRESSURE ULCER History of bronchoscopy (01/2016) History of colonoscopy History of esophagogastroduodenoscopy (EGD) with dilation (, 11/23/21, 10/2021) History of herniorrhaphy History of lobectomy of lung LOWER LEFT LUNG S/P peripheral artery angioplasty with stent placement (06/2016) LLE [employer] GR[employer], 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 S/P thoracentesis (05/2019) L pleural effusion Status post femorofemoral bypass surgery (06/2016) [place] teeth removed Family History Brother Myocardial infarction Father Myocardial infarction Other Cancer Family history non-contributory Lung disease No family history of adverse response to anesthesia Denies family history of Tuberculosis Ovarian cancer Prostate cancer Diabetes Heart disease Allergies Breast cancer Emphysema, unspecified Lung cancer Colorectal cancer Asthma Social History Smoking Status: Former smoker Tobacco Type: Cigarettes Age Started Using Tobacco: 10; packs per day: 0.5; Years Smoked: 30; Cigarettes Per Day: 6-8 DAILY; Second Hand Exposure: No; Do You Dip or Chew Tobacco: No; Tobacco Cessation Education Requested by Patient: No Hx Alcohol Use: Yes Alcohol type: beer Alcohol Intake Frequency: 4 or More x per/Week Alcohol Intake Frequency Comment: mostly daily Hx Substance Use: No (medical THC (uses as directed)) Preferred Language: French Communication Ability: Effective Visual Impairment: No Limitations Hearing Ability: Normal Ocular Pathologist Required: No Beliefs That Will Affect Care: None marital status: Current Living Situation: Alone Current Living Situation Comment: Pt does have caregivers current occupational status: disabled How many Children do You have: 2 Other Information That Helps Us Care for You: No Feels Safe at Home: Yes Safety Concerns: Feels Safe At This Time Childhood Exposure to Second-Hand Smoke: Yes Diet Comment: regular caffeine: Yes (coffee 1 pot a day) during the past year weight has: remained stable Dental Care, Regularly: No Physical Activity Frequency: Does not Exercise Seatbelt Use: always Sunscreen Use: No Assistive Devices: Denture - Upper, Denture - Lower, Glasses and Wheelchair Review of Systems Unobtainable due to mental health condition and Unobtainable due to cognitive status Physical Exam Vital Signs Vital Signs - 24 hr 02/10/22 11:28 02/10/22 11:43 02/10/22 11:43 Temperature 39.1 C H 39.1 C H Temperature Source Oral Rectal Pulse Rate 101 H 90 Pulse Rate [Right Finger] 90 Respiratory Rate 32 H 33 H Respiratory Effort / Characteristics Grunting Labored Non-Labored Respiratory Depth Normal Blood Pressure 92/50 L Blood Pressure [Right Arm] 93/73 L Blood Pressure Mean 64 Blood Pressure Mean [Right Arm] 79 Pulse Oximetry 95 98 98 Oxygen Delivery Method High Flow Nasal Cannula Non-rebreather Non-rebreather Oxygen Flow Rate Sepsis Recent Fever Within 48 Hours Yes Sepsis New/Unexplained Change in Mental Status Yes Sepsis Action Taken by Nursing Physician Notified 02/10/22 11:58 02/10/22 11:58 02/10/22 11:58 Temperature 39.1 C H Temperature Source Rectal Pulse Rate Pulse Rate [Right Finger] Respiratory Rate 24 Respiratory Effort / Characteristics Grunting Respiratory Depth Blood Pressure Blood Pressure [Right Arm] 93/73 L Blood Pressure Mean Blood Pressure Mean [Right Arm] 79 Pulse Oximetry 98 Oxygen Delivery Method Nasal Cannula Nasal Cannula Oxygen Flow Rate 5 5 Sepsis Recent Fever Within 48 Hours Sepsis New/Unexplained Change in Mental Status Sepsis Action Taken by Nursing 02/10/22 12:25 02/10/22 12:30 02/10/22 12:41 Temperature Temperature Source Pulse Rate Pulse Rate [Right Finger] 77 Respiratory Rate 25 H Respiratory Effort / Characteristics Respiratory Depth Blood Pressure Blood Pressure [Right Arm] 81/54 L 91/54 L Blood Pressure Mean Blood Pressure Mean [Right Arm] 63 66 Pulse Oximetry 98 100 Oxygen Delivery Method Nasal Cannula Nasal Cannula Oxygen Flow Rate 3 2 Sepsis Recent Fever Within 48 Hours Sepsis New/Unexplained Change in Mental Status Sepsis Action Taken by Nursing 02/10/22 12:53 02/10/22 13:11 Temperature Temperature Source Pulse Rate Pulse Rate [Right Finger] 77 75 Respiratory Rate 27 H 18 Respiratory Effort / Characteristics Respiratory Depth Normal Blood Pressure Blood Pressure [Right Arm] 76/48 L 99/56 L Blood Pressure Mean Blood Pressure Mean [Right Arm] 57 70 Pulse Oximetry 98 97 Oxygen Delivery Method Nasal Cannula Nasal Cannula Oxygen Flow Rate 2 2 Sepsis Recent Fever Within 48 Hours Sepsis New/Unexplained Change in Mental Status Sepsis Action Taken by Nursing Physical Exam GENERAL: Ill-appearing. EYES: Conjunctivae and EOM are normal. Pupils are equal, round, and reactive to light. Right eye exhibits no discharge. Left eye exhibits no discharge. No scleral icterus. NECK: Normal range of motion. Neck supple. No JVD present. No spinous process tenderness present. CV: Tachycardic rate, regular rhythm, normal heart sounds and intact distal pulses. There is no peripheral edema. Palpable radial pulses bue. PULM/CHEST: Rhonchi bilaterally. ABD: The abdomen is soft. NEURO: Motor and sensation grossly intact. SKIN: He is not diaphoretic. Course Course 1118: The patient was evaluated in room A1. A complete history and physical exam was performed Cardiac monitoring: An order was placed for continuous cardiac monitoring. The monitor shows a rate of 100 with sinus rhythm Patient febrile hypoxic and tachycardic. Sepsis protocols were initiated. Fluid bolus initiated. 1315: Patient's pressures been in the systolic 90s with second liter of normal saline hanging. Labs show leukocytosis of 21. Patient's VBG shows venous pH of 7.29. Creatinine 1.89. Glucose was 69. 1 amp of D50 given to the patient. Lactic acid 2.4. High-sensitivity troponin 24.8. Procalcitonin 4.2. Chest x- ray shows effusion possible scarring versus infiltrate. Patient will be treated with Zosyn and doxycycline. Discussed with hospitalist DOUGIE Estrada. Given the patient's history of adrenal insufficiency 100 mg of hydrocortisone also ordered for the patient. Discussed with the sister loren [phone] and states that the patient has been declining over the last 1 month. She states that the patient is not having advanced directives at this time. Administered Medications Albuterol (Albuterol 0.083% Nebu Soln 3 Ml Vial) 2.5 mg NEB Q6R GERMAN; Protocol Stop: 03/12/22 18:59 Last Admin: 02/10/22 19:06 Dose: 2.5 mg Gabapentin (Gabapentin 300 Mg Cap) 300 mg PO TID GERMAN Stop: 03/12/22 14:51 Last Admin: 02/10/22 17:27 Dose: 300 mg Documented By: GPF Heparin Sodium (Porcine) (Heparin Sod 5,000 Unit/0.5 Ml Vial) 5,000 units SQ Q8 GERMAN Stop: 03/12/22 14:51 Last Admin: 02/10/22 17:27 Dose: 5,000 units Documented By: GPF Lactated Ringer's (Lr) 1,000 mls @ 100 mls/hr IV .Q10H GERMAN Stop: 03/12/22 14:51 Last Admin: 02/10/22 15:35 Dose: 100 mls/hr Documented By: MARGRETF Insulin Aspart (Insulin Aspart Per Unit) 0 units SC ACHS GERMAN Stop: 03/12/22 16:29 Last Admin: 02/10/22 17:28 Dose: 4 units Documented By: GPF Co-signed By: KIMBERLY Midodrine (Midodrine Hcl 2.5 Mg Tab) 5 mg PO TID@0800,1200,1600 GERMAN Stop: 03/12/22 16:14 Last Admin: 02/10/22 17:04 Dose: 5 mg Documented By: GENIE Polyethylene Glycol (Polyethylene (Miralax) 17 Gm Pack) 17 gm PO TID GERMAN Stop: 03/12/22 14:51 Last Admin: 02/10/22 17:04 Dose: Not Given Documented By: GENIE Tobramycin/Dexamethasone (Tobramycin/Dexamethasone Oph Susp 2.5 Ml Btl) 1 drops OT QID GERMAN Stop: 03/12/22 16:59 Last Admin: 02/10/22 17:04 Dose: 1 drops Documented By: GENIE Discontinued Medications Dextrose (Dextrose 50% 50 Ml Syringe) 50 ml IV NOW ONE Stop: 02/10/22 12:32 Last Admin: 02/10/22 12:35 Dose: 50 ml Documented By: OMAR Diphenhydramine HCl (Diphenhydramine 50 Mg/Ml Vial) 12.5 mg IV ONE ONE Stop: 02/10/22 15:49 Last Admin: 02/10/22 16:57 Dose: 12.5 mg Documented By: GENIE Hydrocortisone Sodium Succinate (Hydrocortisone Sod Succinate 100 Mg/2 Ml Vial) 100 mg IV NOW STA Stop: 02/10/22 13:13 Last Admin: 02/10/22 13:30 Dose: 100 mg Documented By: OMAR Sodium Chloride (Nss 1000ml) 1,000 mls @ 999 mls/hr IV .Q1H1M GERMAN Stop: 02/10/22 12:30 Last Infusion: 02/10/22 12:52 Dose: 0 mls/hr Documented By: Admin: 02/10/22 11:48 Dose: 999 mls/hr Documented By: OMAR Acetaminophen (Ofirmev) 1,000 mg in 100 mls @ 400 mls/hr IV NOW STA Stop: 02/10/22 11:40 Last Infusion: 02/10/22 12:04 Dose: 0 mls/hr Documented By: Admin: 02/10/22 11:48 Dose: 400 mls/hr Documented By: OMAR Sodium Chloride (Nss 1000ml) 1,000 mls @ 999 mls/hr IV .Q1H1M ONE Stop: 02/10/22 13:26 Last Infusion: 02/10/22 13:33 Dose: 0 mls/hr Documented By: Admin: 02/10/22 12:28 Dose: 999 mls/hr Documented By: OMAR Sodium Chloride (Nss 1000ml) 500 mls @ 999 mls/hr IV .Q31M ONE Stop: 02/10/22 12:56 Last Infusion: 02/10/22 13:33 Dose: 0 mls/hr Documented By: Admin: 02/10/22 12:53 Dose: 999 mls/hr Documented By: OMAR Piperacillin Sod/Tazobactam Sod (Zosyn) 4.5 gm in 120 mls @ 240 mls/hr IV NOW ONE Stop: 02/10/22 13:00 Last Infusion: 02/10/22 13:09 Dose: 0 mls/hr Documented By: Admin: 02/10/22 12:36 Dose: 240 mls/hr Documented By: OMAR Doxycycline Hyclate 100 mg/ (Dextrose) 110 mls @ 55 mls/hr IV NOW ONE Stop: 02/10/22 15:29 Last Infusion: 02/10/22 16:58 Dose: 0 mls/hr Documented By: Admin: 02/10/22 15:35 Dose: 55 mls/hr Documented By: GENIE Vancomycin HCl 1,500 mg/ (Sodium Chloride) 530 mls @ 159 mls/hr IV NOW ONE Stop: 02/10/22 19:04 Last Admin: 02/10/22 17:05 Dose: 159 mls/hr Documented By: GENIE Critical Care Time Critical Care Time: Yes Total Critical Care Time: 86 I have personally spent greater than 86 minutes of critical care time in the direct management of this patient. This includes bedside care, interpretation of diagnostic studies, and testing, discussion with consultants, patient, and family members, and other required patient management activities. This 86 minutes is in excess of all separately billable procedures. Medical Decision Making Laboratory Data Result diagrams: 02/10/22 11:20 02/10/22 11:20 Lab Results 02/10/22 02/10/22 02/10/22 Range/Units 11:20 11:20 11:20 WBC 21.00 H (4.8-10.8) K/ul RBC 5.53 (4.63-6.08) M/uL Hgb 14.7 (14.0-18.0) g/dl POC Hgb (14.0-18.0) g/dl Hct 45.4 (40.1-51.0) % POC Hct (42-52) % MCV 82.1 (80.0-100.0) fL MCH 26.6 (25.0-34.0) pg MCHC 32.4 (32.0-36.0) g/dL RDW Std Deviation 57.4 H (36.4-46.3) fL RDW Coeff of Raul 19.9 H (11.5-14.5) % Plt Count 268 (130-400) K/uL MPV 10.3 (9.4-12.4) fL Immature Gran % (Auto) 0.3 % Neut % (Auto) 87.8 % Lymph % (Auto) 6.0 % Kay % (Auto) 4.5 % Eos % (Auto) 1.0 % Baso % (Auto) 0.4 % Neut # (Auto) 18.43 H (1.4-6.5) K/uL Lymph # (Auto) 1.26 (1.2-3.4) K/uL Kay # (Auto) 0.94 H (0.24-0.82) K/uL Eos # (Auto) 0.22 (0-0.50) K/uL Baso # (Auto) 0.08 (0-0.2) K/uL Immature Gran # (Auto) 0.07 H (0.00-0.02) K/uL PT 12.9 H (9.0-12.0) Seconds INR 1.2 H (0.9-1.1) APTT 31.9 H (21.0-31.0) Seconds PTT Ratio 1.2 VBG pH (7.36-7.41) VBG pCO2 (38-50) mmHg VBG pO2 mmHg VBG HCO3 mmol/L VBG O2 Saturation % VBG Base Excess mEq/L POC Sodium (135-144) mmol/L Sodium 140 (136-145) mmol/L POC Potassium (3.3-5.0) mmol/L Potassium 3.7 (3.5-5.1) mmol/L POC Chloride (101-112) mmol/L Chloride 103 (98-107) mmol/L Carbon Dioxide 22 (21-32) mmol/L POC Total CO2 (24-31) mmol/L Anion Gap 15 H (3-11) POC Anion Gap (16-25) mmol/L POC BUN (7-18) mg/dl BUN 14 (6-23) mg/dl Creatinine 1.89 H (0.6-1.4) mg/dl POC Creatinine (0.6-1.3) mg/dl Est Cr Clr Drug Dosing 37.4 ml/min Est GFR ( Amer) 41.3 ml/min Est GFR (Non-Af Amer) 35.7 ml/min BUN/Creatinine Ratio 7.4 L (10-20) Glucose 62 L (70-99(Fasting)) mg/dl POC Glucose (70-99) mg/dl POC Glucose (other) (70-99) mg/dl Lactate (0.4-2.0) mmol/L Calcium 9.6 (8.5-10.1) mg/dl POC Ioniz Calcium Yina (1.12-1.32) mmol/l Magnesium 2.0 (1.7-2.4) mg/dl Total Bilirubin 1.1 H (0.2-1.0) mg/dl AST 24 (13-39) U/L ALT 9 (7-52) U/L Alkaline Phosphatase 77 (34-104) U/L Troponin I High Sens 24.8 H D (0-20) pg/ml Total Protein 8.1 (6.0-8.3) gm/dl Albumin 4.1 (3.4-5.0) gm/dl Globulin 4.0 (2.5-4.0) gm/dl Albumin/Globulin Ratio 1.0 (0.9-2) Lipase 13 (11-82) U/L Procalcitonin (0-0.5) ng/ml Urine Color Urine Appearance (Clear) Urine pH (4.5-7.5) Ur Specific [place] (1.000-1.030) Urine Protein (Negative) Urine Glucose (UA) (Negative) Urine Ketones (Negative) Urine Blood (Negative) Urine Nitrite (Negative) Urine Bilirubin (Negative) Urine Urobilinogen (Negative) Ur Leukocyte Esterase (Negative) SARS-CoV-2, RNA, NAAT (NEGATIVE) 02/10/22 02/10/22 02/10/22 Range/Units 11:20 11:20 11:25 WBC (4.8-10.8) K/ul RBC (4.63-6.08) M/uL Hgb (14.0-18.0) g/dl POC Hgb 15.3 (14.0-18.0) g/dl Hct (40.1-51.0) % POC Hct 45 (42-52) % MCV (80.0-100.0) fL MCH (25.0-34.0) pg MCHC (32.0-36.0) g/dL RDW Std Deviation (36.4-46.3) fL RDW Coeff of Raul (11.5-14.5) % Plt Count (130-400) K/uL MPV (9.4-12.4) fL Immature Gran % (Auto) % Neut % (Auto) % Lymph % (Auto) % Kay % (Auto) % Eos % (Auto) % Baso % (Auto) % Neut # (Auto) (1.4-6.5) K/uL Lymph # (Auto) (1.2-3.4) K/uL Kay # (Auto) (0.24-0.82) K/uL Eos # (Auto) (0-0.50) K/uL Baso # (Auto) (0-0.2) K/uL Immature Gran # (Auto) (0.00-0.02) K/uL PT (9.0-12.0) Seconds INR (0.9-1.1) APTT (21.0-31.0) Seconds PTT Ratio VBG pH (7.36-7.41) VBG pCO2 (38-50) mmHg VBG pO2 mmHg VBG HCO3 mmol/L VBG O2 Saturation % VBG Base Excess mEq/L POC Sodium 143 (135-144) mmol/L Sodium (136-145) mmol/L POC Potassium 3.8 (3.3-5.0) mmol/L Potassium (3.5-5.1) mmol/L POC Chloride 103 (101-112) mmol/L Chloride (98-107) mmol/L Carbon Dioxide (21-32) mmol/L POC Total CO2 24 (24-31) mmol/L Anion Gap (3-11) POC Anion Gap 21.0 (16-25) mmol/L POC BUN 13 (7-18) mg/dl BUN (6-23) mg/dl Creatinine (0.6-1.4) mg/dl POC Creatinine 1.9 H (0.6-1.3) mg/dl Est Cr Clr Drug Dosing ml/min Est GFR ( Amer) ml/min Est GFR (Non-Af Amer) ml/min BUN/Creatinine Ratio (10-20) Glucose (70-99(Fasting)) mg/dl POC Glucose (70-99) mg/dl POC Glucose (other) 69 L* (70-99) mg/dl Lactate 2.4 H* (0.4-2.0) mmol/L Calcium (8.5-10.1) mg/dl POC Ioniz Calcium Yina 1.15 (1.12-1.32) mmol/l Magnesium (1.7-2.4) mg/dl Total Bilirubin (0.2-1.0) mg/dl AST (13-39) U/L ALT (7-52) U/L Alkaline Phosphatase (34-104) U/L Troponin I High Sens (0-20) pg/ml Total Protein (6.0-8.3) gm/dl Albumin (3.4-5.0) gm/dl Globulin (2.5-4.0) gm/dl Albumin/Globulin Ratio (0.9-2) Lipase (11-82) U/L Procalcitonin 4.20 H (0-0.5) ng/ml Urine Color Urine Appearance (Clear) Urine pH (4.5-7.5) Ur Specific [place] (1.000-1.030) Urine Protein (Negative) Urine Glucose (UA) (Negative) Urine Ketones (Negative) Urine Blood (Negative) Urine Nitrite (Negative) Urine Bilirubin (Negative) Urine Urobilinogen (Negative) Ur Leukocyte Esterase (Negative) SARS-CoV-2, RNA, NAAT (NEGATIVE) 02/10/22 02/10/22 02/10/22 Range/Units 11:42 11:46 11:54 WBC (4.8-10.8) K/ul RBC (4.63-6.08) M/uL Hgb (14.0-18.0) g/dl POC Hgb (14.0-18.0) g/dl Hct (40.1-51.0) % POC Hct (42-52) % MCV (80.0-100.0) fL MCH (25.0-34.0) pg MCHC (32.0-36.0) g/dL RDW Std Deviation (36.4-46.3) fL RDW Coeff of Raul (11.5-14.5) % Plt Count (130-400) K/uL MPV (9.4-12.4) fL Immature Gran % (Auto) % Neut % (Auto) % Lymph % (Auto) % Kay % (Auto) % Eos % (Auto) % Baso % (Auto) % Neut # (Auto) (1.4-6.5) K/uL Lymph # (Auto) (1.2-3.4) K/uL Kay # (Auto) (0.24-0.82) K/uL Eos # (Auto) (0-0.50) K/uL Baso # (Auto) (0-0.2) K/uL Immature Gran # (Auto) (0.00-0.02) K/uL PT (9.0-12.0) Seconds INR (0.9-1.1) APTT (21.0-31.0) Seconds PTT Ratio VBG pH 7.29 L (7.36-7.41) VBG pCO2 49 (38-50) mmHg VBG pO2 31 mmHg VBG HCO3 24 mmol/L VBG O2 Saturation < 60.0 % VBG Base Excess -3.4 mEq/L POC Sodium (135-144) mmol/L Sodium (136-145) mmol/L POC Potassium (3.3-5.0) mmol/L Potassium (3.5-5.1) mmol/L POC Chloride (101-112) mmol/L Chloride (98-107) mmol/L Carbon Dioxide (21-32) mmol/L POC Total CO2 (24-31) mmol/L Anion Gap (3-11) POC Anion Gap (16-25) mmol/L POC BUN (7-18) mg/dl BUN (6-23) mg/dl Creatinine (0.6-1.4) mg/dl POC Creatinine (0.6-1.3) mg/dl Est Cr Clr Drug Dosing ml/min Est GFR ( Amer) ml/min Est GFR (Non-Af Amer) ml/min BUN/Creatinine Ratio (10-20) Glucose (70-99(Fasting)) mg/dl POC Glucose (70-99) mg/dl POC Glucose (other) (70-99) mg/dl Lactate (0.4-2.0) mmol/L Calcium (8.5-10.1) mg/dl POC Ioniz Calcium Yina (1.12-1.32) mmol/l Magnesium (1.7-2.4) mg/dl Total Bilirubin (0.2-1.0) mg/dl AST (13-39) U/L ALT (7-52) U/L Alkaline Phosphatase (34-104) U/L Troponin I High Sens (0-20) pg/ml Total Protein (6.0-8.3) gm/dl Albumin (3.4-5.0) gm/dl Globulin (2.5-4.0) gm/dl Albumin/Globulin Ratio (0.9-2) Lipase (11-82) U/L Procalcitonin (0-0.5) ng/ml Urine Color Yellow Urine Appearance Clear (Clear) Urine pH 6.5 (4.5-7.5) Ur Specific [place] 1.005 (1.000-1.030) Urine Protein Negative (Negative) Urine Glucose (UA) Negative (Negative) Urine Ketones Trace H (Negative) Urine Blood Negative (Negative) Urine Nitrite Negative (Negative) Urine Bilirubin Negative (Negative) Urine Urobilinogen Negative (Negative) Ur Leukocyte Esterase Negative (Negative) SARS-CoV-2, RNA, NAAT NEGATIVE (NEGATIVE) 02/10/22 02/10/22 Range/Units 12:58 13:07 WBC (4.8-10.8) K/ul RBC (4.63-6.08) M/uL Hgb (14.0-18.0) g/dl POC Hgb (14.0-18.0) g/dl Hct (40.1-51.0) % POC Hct (42-52) % MCV (80.0-100.0) fL MCH (25.0-34.0) pg MCHC (32.0-36.0) g/dL RDW Std Deviation (36.4-46.3) fL RDW Coeff of Raul (11.5-14.5) % Plt Count (130-400) K/uL MPV (9.4-12.4) fL Immature Gran % (Auto) % Neut % (Auto) % Lymph % (Auto) % Kay % (Auto) % Eos % (Auto) % Baso % (Auto) % Neut # (Auto) (1.4-6.5) K/uL Lymph # (Auto) (1.2-3.4) K/uL Kay # (Auto) (0.24-0.82) K/uL Eos # (Auto) (0-0.50) K/uL Baso # (Auto) (0-0.2) K/uL Immature Gran # (Auto) (0.00-0.02) K/uL PT (9.0-12.0) Seconds INR (0.9-1.1) APTT (21.0-31.0) Seconds PTT Ratio VBG pH (7.36-7.41) VBG pCO2 (38-50) mmHg VBG pO2 mmHg VBG HCO3 mmol/L VBG O2 Saturation % VBG Base Excess mEq/L POC Sodium (135-144) mmol/L Sodium (136-145) mmol/L POC Potassium (3.3-5.0) mmol/L Potassium (3.5-5.1) mmol/L POC Chloride (101-112) mmol/L Chloride (98-107) mmol/L Carbon Dioxide (21-32) mmol/L POC Total CO2 (24-31) mmol/L Anion Gap (3-11) POC Anion Gap (16-25) mmol/L POC BUN (7-18) mg/dl BUN (6-23) mg/dl Creatinine (0.6-1.4) mg/dl POC Creatinine (0.6-1.3) mg/dl Est Cr Clr Drug Dosing ml/min Est GFR ( Amer) ml/min Est GFR (Non-Af Amer) ml/min BUN/Creatinine Ratio (10-20) Glucose (70-99(Fasting)) mg/dl POC Glucose 217 H (70-99) mg/dl POC Glucose (other) (70-99) mg/dl Lactate 1.4 (0.4-2.0) mmol/L Calcium (8.5-10.1) mg/dl POC Ioniz Calcium Yina (1.12-1.32) mmol/l Magnesium (1.7-2.4) mg/dl Total Bilirubin (0.2-1.0) mg/dl AST (13-39) U/L ALT (7-52) U/L Alkaline Phosphatase (34-104) U/L Troponin I High Sens (0-20) pg/ml Total Protein (6.0-8.3) gm/dl Albumin (3.4-5.0) gm/dl Globulin (2.5-4.0) gm/dl Albumin/Globulin Ratio (0.9-2) Lipase (11-82) U/L Procalcitonin (0-0.5) ng/ml Urine Color Urine Appearance (Clear) Urine pH (4.5-7.5) Ur Specific [place] (1.000-1.030) Urine Protein (Negative) Urine Glucose (UA) (Negative) Urine Ketones (Negative) Urine Blood (Negative) Urine Nitrite (Negative) Urine Bilirubin (Negative) Urine Urobilinogen (Negative) Ur Leukocyte Esterase (Negative) SARS-CoV-2, RNA, NAAT (NEGATIVE) Imaging Data Radiologist's Impression: Chest X-Ray 02/10/22 11:21 XR chest 1V portable CLINICAL HISTORY: Sepsis. History of lung cancer. COMPARISON STUDY: Chest CT January 11, 2022. Chest radiograph January 12, 2022. FINDINGS: There is no pneumothorax. A small to moderate left pleural effusion is again noted. Right infrahilar opacity is unchanged and favors scarring. Interstitial thickening is unchanged. Cardiomediastinal silhouette is stable. IMPRESSION: 1. No significant change in a small to moderate left pleural effusion. No pneumothorax. 2. Persistent right infrahilar opacity. This favors scarring but should be assessed on follow-up exams. 3. Mild interstitial pulmonary edema. ACT 112: Negative or not required by law. Electronically signed by: Delio Head M.D. 02/10/2022 12:[address] 02/10/22 11:[address] DOSE: 614.27 mGy.cm HISTORY: Altered mental status. TECHNIQUE: Multiaxial CT images of the head were performed without the use of intravenous contrast. Automated exposure control was utilized for this study. A dose lowering technique was utilized adhering to the principles of ALARA. Comparison: Head CT 01/11/2022. Findings: The paranasal sinuses and mastoid air cells are clear. The calvarium and skull base are intact. There is no mass, hematoma, midline shift, acute infarct. White matter hypodensity is nonspecific but suggestive of microvascular ischemic change. The ventricles and sulci demonstrate mild age-related involutional changes. 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 Impression: No acute intracranial abnormality. ACT 112: Negative or not required by law. Electronically signed by: Patricio Burger M.D. 02/10/2022 11:55 AM ECG Data Indication: + other (sepsis) Rate (beats per minute): 96 Rhythm: + normal sinus ECG Intervals/blocks: + Normal QRS, + Normal NM and + Normal QT-c ECG ST segments: + ST depression (V3-V5); no ST elevation MDM Narrative 1118: The patient was evaluated in room A1. A complete history and physical exam was performed Cardiac monitoring: An order was placed for continuous cardiac monitoring. The monitor shows a rate of 100 with sinus rhythm Patient febrile hypoxic and tachycardic. Sepsis protocols were initiated. Fluid bolus initiated. 1315: Patient's pressures been in the systolic 90s with second liter of normal saline hanging. Labs show leukocytosis of 21. Patient's VBG shows venous pH of 7.29. Creatinine 1.89. Glucose was 69. 1 amp of D50 given to the patient. Lactic acid 2.4. High-sensitivity troponin 24.8. Procalcitonin 4.2. Chest x- ray shows effusion possible scarring versus infiltrate. Patient will be treated with Zosyn and doxycycline. Discussed with hospitalist DOUGIE Estrada. Given the patient's history of adrenal insufficiency 100 mg of hydrocortisone also ordered for the patient. Discussed with the sister a [id number] and states that the patient has been declining over the last 1 month. She states that the patient is not having advanced directives at this time. Impression & Plan Sepsis, Pleural effusion, MP (acute kidney injury) Discharge Plan Visit Data Chief Complaint: Confusion Stated Complaint: AMS, ED Provider: Matthew Byrd Discharge Problem: Sepsis, Pleural effusion, MP (acute kidney injury) Patient Disposition: Admitted As Inpatient Discharge Instructions Interventions: ED Discharge Assessment Last Done: 02/10/22 14:10 : Sepsis Qualifiers: Sepsis type: sepsis due to unspecified organism Sepsis acute organ dysfunction status: with acute organ dysfunction Severe sepsis acute organ dysfunction type: acute renal failure Acute renal failure type: unspecified
[2022-02-10] MEDS: HYDROCORTISONE SOD 50 MG in SYRINGE 0 ML IV SCH (19:28)
[2022-02-10] MEDS: PIPERACILLIN/TAZOBACTAM 4.5 GM in DEXTROSE 5% 100 ML IV SCH (19:53)
[2022-02-10] MEDS: QUEtiapine FUMARATE 25 MG TABLET PO SCH (20:03)
[2022-02-10] MEDS: MELATONIN 3 MG TAB PO SCH (20:04)
[2022-02-11] MEDS: ALBUTEROL 0.083% NEBU SOLN 3 ML VIAL NEB SCH ×4 (00:26→19:32)
[2022-02-11] MEDS: LACTATED RINGER'S 1,000 ML IV SCH ×2 (01:20→10:57)
[2022-02-11] MEDS: PIPERACILLIN/TAZOBACTAM 4.5 GM in DEXTROSE 5% 100 ML IV SCH ×3 (01:21→17:30)
[2022-02-11] MEDS: HYDROCORTISONE SOD 50 MG in SYRINGE 0 ML IV SCH ×3 (03:17→20:25)
[2022-02-11] MEDS: DOXYCYCLINE HYCLATE 100 MG in DEXTROSE 5% 100 ML IV SCH ×2 (04:31→16:15)
[2022-02-11] MEDS: HEPARIN SOD 5,000 UNIT/0.5 ML VIAL SQ SCH ×3 (05:28→20:35)
[2022-02-11 06:24] LABS: Hematocrit (blood only) 38.3 % (40.1-51.0); Hemoglobin 12.5 g/dl (14.0-18.0); Mean Corpuscular Hemoglobin 26.4 pg (25.0-34.0); Mean Corpuscular Hgb Conc 32.6 g/dL (32.0-36.0); Mean Corpuscular Volume 80.8 fL (80.0-100.0); Mean Platelet Volume 9.9 fL (9.4-12.4); Platelet Count 229 K/uL (130-400); RDW Coefficient of Variation 19.6 % (11.5-14.5); RDW Standard Deviation 57.3 fL (36.4-46.3); Red Blood Count 4.74 M/uL (4.63-6.08); White Blood Count 18.24 K/ul (4.8-10.8)
[2022-02-11 06:48] LABS: Basophils # (auto) 0.02 K/uL (0-0.2); Basophils % (auto) 0.1 %; Immature Granulocytes # (auto) 0.08 K/uL (0.00-0.02); Immature Granulocytes % (auto) 0.4 %; Lymphocytes # (auto) 0.21 K/uL (1.2-3.4); Lymphocytes % (auto) 1.2 %; Monocytes # (auto) 0.26 K/uL (0.24-0.82); Monocytes % (auto) 1.4 %; Neutrophils # (auto) 17.67 K/uL (1.4-6.5); Neutrophils % (auto) 96.9 %
[2022-02-11 07:11] LABS: BUN Creatinine Ratio 8.5 (10-20); Calcium 8.5 mg/dl (8.5-10.1); Creatinine Clr Calc Pharmacy 60.4 ml/min; Est GFR (African American) 73.8 ml/min; Est GFR (Non-African American) 63.7 ml/min; Magnesium 1.9 mg/dl (1.7-2.4); Potassium 3.9 mmol/L (3.5-5.1); Troponin I High Sensitivity 12.9 pg/ml (0-20)
[2022-02-11] MEDS ORDERED: diphenhydrAMINE 50 MG/ML VIAL IV SCH (09:00)
[2022-02-11] MEDS: SENNA 8.6 MG TAB PO SCH (09:01)
[2022-02-11] MEDS: ASPIRIN 81 MG CHEW PO SCH (09:01)
[2022-02-11] MEDS: MIDODRINE HCL 2.5 MG TAB PO SCH ×3 (09:01→16:14)
[2022-02-11] MEDS: buPROPion HCl 100 MG TABLET PO SCH (09:01)
[2022-02-11] MEDS: CLOPIDOGREL BISULFATE 75 MG TAB PO SCH (09:01)
[2022-02-11] MEDS: FOLIC ACID 1 MG TAB PO SCH (09:02)
[2022-02-11] MEDS: GABAPENTIN 300 MG CAP PO SCH ×3 (09:02→20:26)
[2022-02-11] MEDS: TAMSULOSIN HCL 0.4 MG CAP PO SCH (09:02)
[2022-02-11] MEDS: UMECLIDINIUM/VILANTEROL 62.5/25MCG 7 PUFFS/INHALER INH SCH (09:02)
[2022-02-11] MEDS: PANTOprazole 40 MG TAB PO SCH (09:02)
[2022-02-11] MEDS: ATORVASTATIN 40 MG TAB PO SCH (09:02)
[2022-02-11] MEDS: POLYETHYLENE (MIRALAX) 17 GM PACK PO SCH ×3 (09:03→20:29)
[2022-02-11] MEDS: TOBRAMYCIN/DEXAMETHASONE OPH SUSP 2.5 ML BTL OT SCH ×4 (09:03→20:30)
[2022-02-11] MEDS: FLUTICASONE FUROATE 100MCG 14 PUFFS/INHALER INH SCH (09:03)
[2022-02-11] MEDS: INSULIN ASPART PER UNIT SC SCH ×4 (09:15→20:36)
[2022-02-11] MEDS ORDERED: VANCOMYCIN HCL 1,500 MG in SODIUM CHLORIDE 0.9% 500 ML IV ONE (09:30)
--- NOTE | 2022-02-11 10:12 | Electrocardiogram Report ---
Test Reason : Blood Pressure : / mmHG Vent. Rate : 096 BPM Atrial Rate : 096 BPM P-R Int : 138 ms QRS Dur : 088 ms QT Int : 390 ms P-R-T Axes : 062 032 069 degrees QTc Int : 492 ms Sinus rhythm T wave abnormality, consider anterior ischemia Prolonged QT Abnormal ECG When compared with ECG of 11-JAN-2022 18:15, T wave inversion now evident in Anterior leads Confirmed by Sonido Garcia ([id number]) on 02/11/2022 10:11:52 AM Referred By: Confirmed By:Sonido Garcia
--- NOTE | 2022-02-11 10:47 | Pharmacy Report ---
Pharmacy Vanc AUC Short Note - Date of Service February 11, 2022 - Assessment & Plan Assessment 67 year old M receiving Vancomycin for treatment of Pneumonia. Pertinent microbiologic data includes: Positive MRSA Nasal Swab. Blood and sputum cultures are currently pending. Day #2 of antimicrobial therapy. Plan Vancomycin * AUC/GLENNA is the preferred PK/PD target for vancomycin * AUC guided dosing is effective and associated with decreased risk of nephrotoxicity compared to traditional trough targets * Patient received first dose of Vancomycin 1500 mg IV yesterday ~17:05. A random Vanc level was ordered this AM since serum creat was elevated yesterday. * Random level = 9.4 mcg/ml today AM indicating patient ready to receive next dose. * Allergy/ Red man's syndrome to Vancomycin noted. * Yesterday, he received first dose without any issues. No rash or red man's per nurse. He did receive a Benadryl IV 12.5 mg as a pre-treat x1 before the Vancomycin dose was given. Additionally, infusion rate was slowed to 3.5 hrs. * Reached out to Dr. Medina today; she said okay to continue with IV Benadryl 12.5 mg pre-treat x1 before Vancomycin administration and also slow infusion rate. Therefore, this was continued. * Vancomycin 1500 mg IV q24h is predicted to achieve target AUC/GLENNA of 400-600 mg/L.hr and may be associated with a 10% risk of nephrotoxicity * Random Vancomycin level ordered for: 02/13/22 with AM labs. Pharmacy will continue to follow and will adjust dose/frequency as necessary. Thank you.
--- NOTE | 2022-02-11 17:42 | Hospitalist Progress Note ---
Date of Service February 11, 2022 Assessment & Plan (1) Sepsis: Plan: Patient presents hypotensive, hypoglycemic, febrile, with elevated WBC, Lactate, and PCT. Likely pulmonary source at this time with thick yellow sputum sent for culture - Evidence of organ dysfunction - lungs, MP, elevated HScTNI, INR 1.2 - Alternate sources possible- ear, pleural effusion Improving today--> MP resolved, trop trended downward, lactate normalized, BPs normalized, leukocytosis improving, afebrile, mentation improved - Blood and sputum sample pending- follow - MRSA swab positive - but also with MRSA of ear- will add on Vancomycin -continue Zosyn and Doxy for broad spectrum for severe sepsis and PULM source - received 2 liters crystalloid infused with reduction in lactate-will now dc IVFs -IV Hydrocortisone for stress dosed steroids helped improve BPs - Follow hemodynamics and urine output -follow CBC,CMP in AM (2) MP (acute kidney injury): 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: 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, 2/2 ATN from sepsis now improved to 1.1 (3) COPD (chronic obstructive pulmonary disease) with chronic bronchitis: Plan: with some mild wheezing here -continue Albuterol and Trelegy as well as home oxygen - Continue with albuterol nebulizers scheduled with pulmonary cough assist and flutter valve (4) Adrenal insufficiency: Plan: Hydrocortisone 100mg IV loading dose given followed with 50mg IV q8 - wean when hemodynamics improved - continue midodrine - follow -has outpt consult with Endocrine coming up (5) Otitis externa: Plan: Improved as no drainage and less painful per patient- non tender to mastoid bone previous culture- 01/12/22 Org 1 = Staph aureus MRSA Org 2 = Stenotrophomonas maltophilia Org 3 = Staphylococcus aureus - consider imaging if WBC not responsive or continue source identification -Currently, he is not being treated for the Stenotrophomonas as he is allergic to FQ and Bactrim. This bug is resistant to ceftazadime. 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 - Swartz placed on arrival draining clear yellow urine (9) Benign prostate hyperplasia: Plan: Hold Avodart ,continue Tamsulosin (10) Elevated troponin: Plan: likely demand secondary to hypoxia and sepsis with MP troponin trended back downward no chest pain, no acute ischemic changes on ECG (11) Increased anion gap metabolic acidosis: Plan: Likely secondary to lactate and elevated FURNITURE DUSTER 7.29 with normal CO2 and HCo3 now normalized Plan DVT proph-heparin SQ Dispo-continued stay Admission and Anticipated Discharge Date Admission Date: February 10, 2022 Subjective Pt actively throwing up when I went to see him while he was eating. He frequently does this. He then proceeded to eat more food. He was due for his EGD today for esophageal dilation but obviously was cancelled due to hospitalization. He is still slightly confused but much improved than on admission. I know him very well from previous admissions and he is not quite at his baseline mental status. He denies any other problems. Tele with NSR, rates 70-80s Review of Systems Review of Systems: All systems reviewed & are unremarkable except as noted in HPI & below Physical Exam Constitutional: WD/WN, vitals as above Eyes: + anicteric sclerae ENMT: Ears: + external ear abnormality (left ear mild crusting,erythema,no drainage) Neck: trachea midline, no thyromegaly Respiratory: + cough; not tachypneic Auscultation: + diminished lung sounds (bibasilar), + rhonchi (bilat) and + wheezes Cardiovascular: RRR, no murmur, no edema Chest (Breasts): Chest: normal inspection of chest Gastrointestinal (Abdomen): normal bowel sounds, soft, nontender, no hepatosplenomegaly Musculoskeletal: Extremities: extremities normal to inspection; no cyanosis and no clubbing Skin: no rashes, warm and dry Neurologic: moves all extremities and awake; no focal motor deficits Psychiatric: Orientation: alert, oriented to person, oriented to place and cooperative Genitourinary: Swartz in place draining clear yellow urine Lymphatic: no lymphedema Results & Data Results & Data ([facility]) Vital Signs (Past 12 Hours) Vital Signs Temp Pulse Pulse Resp BP Pulse Ox O2 Del Method 02/11/22 16:52 Room Air 02/11/22 16:08 77 02/11/22 16:02 36.6 C 73 18 105/67 93 02/11/22 12:17 74 20 95 Room Air 02/11/22 11:51 36.3 C L 75 18 103/60 91 Nasal Cannula 02/11/22 09:59 79 20 94 Room Air 02/11/22 08:00 Oxymask 02/11/22 07:52 36.3 C L 75 20 151/81 H 100 Oxymask 02/11/22 07:42 75 02/11/22 07:13 83 20 96 Oxymask O2 Flow Rate 02/11/22 16:52 02/11/22 16:08 02/11/22 16:02 02/11/22 12:17 02/11/22 11:51 2 02/11/22 09:59 02/11/22 08:00 3 02/11/22 07:52 3 02/11/22 07:42 02/11/22 07:13 3 Laboratory Results 02/11/22 02/11/22 02/11/22 Range/Units 16:28 11:16 07:50 WBC (4.8-10.8) K/ul RBC (4.63-6.08) M/uL Hgb (14.0-18.0) g/dl Hct (40.1-51.0) % MCV (80.0-100.0) fL MCH (25.0-34.0) pg MCHC (32.0-36.0) g/dL RDW Std Deviation (36.4-46.3) fL RDW Coeff of Raul (11.5-14.5) % Plt Count (130-400) K/uL MPV (9.4-12.4) fL Immature Gran % (Auto) % Neut % (Auto) % Lymph % (Auto) % [place] % (Auto) % Eos % (Auto) % Baso % (Auto) % Neut # (Auto) (1.4-6.5) K/uL Lymph # (Auto) (1.2-3.4) K/uL [place] # (Auto) (0.24-0.82) K/uL Eos # (Auto) (0-0.50) K/uL Baso # (Auto) (0-0.2) K/uL Immature Gran # (Auto) (0.00-0.02) K/uL Sodium (136-145) mmol/L Potassium (3.5-5.1) mmol/L Chloride (98-107) mmol/L Carbon Dioxide (21-32) mmol/L Anion Gap (3-11) BUN (6-23) mg/dl Creatinine (0.6-1.4) mg/dl Est Cr Clr Drug Dosing ml/min Est GFR ( Amer) ml/min Est GFR (Non-Af Amer) ml/min BUN/Creatinine Ratio (10-20) Glucose (70-99(Fasting)) mg/dl POC Glucose 139 H 191 H 193 H (70-99) mg/dl Calcium (8.5-10.1) mg/dl Magnesium (1.7-2.4) mg/dl Troponin I High Sens (0-20) pg/ml Random Vancomycin (10-20) mcg/ml 02/11/22 02/11/22 02/11/22 Range/Units 06:06 06:06 06:06 WBC 18.24 H (4.8-10.8) K/ul RBC 4.74 (4.63-6.08) M/uL Hgb 12.5 L (14.0-18.0) g/dl Hct 38.3 L (40.1-51.0) % MCV 80.8 (80.0-100.0) fL MCH 26.4 (25.0-34.0) pg MCHC 32.6 (32.0-36.0) g/dL RDW Std Deviation 57.3 H (36.4-46.3) fL RDW Coeff of Raul 19.6 H (11.5-14.5) % Plt Count 229 (130-400) K/uL MPV 9.9 (9.4-12.4) fL Immature Gran % (Auto) 0.4 % Neut % (Auto) 96.9 % Lymph % (Auto) 1.2 % [place] % (Auto) 1.4 % Eos % (Auto) 0.0 % Baso % (Auto) 0.1 % Neut # (Auto) 17.67 H (1.4-6.5) K/uL Lymph # (Auto) 0.21 L (1.2-3.4) K/uL [place] # (Auto) 0.26 (0.24-0.82) K/uL Eos # (Auto) 0.00 (0-0.50) K/uL Baso # (Auto) 0.02 (0-0.2) K/uL Immature Gran # (Auto) 0.08 H (0.00-0.02) K/uL Sodium 146 H (136-145) mmol/L Potassium 3.9 (3.5-5.1) mmol/L Chloride 114 H (98-107) mmol/L Carbon Dioxide 24 (21-32) mmol/L Anion Gap 8 (3-11) BUN 10 (6-23) mg/dl Creatinine 1.17 D (0.6-1.4) mg/dl Est Cr Clr Drug Dosing 60.4 ml/min Est GFR ( Amer) 73.8 ml/min Est GFR (Non-Af Amer) 63.7 ml/min BUN/Creatinine Ratio 8.5 L (10-20) Glucose 222 H (70-99(Fasting)) mg/dl POC Glucose (70-99) mg/dl Calcium 8.5 (8.5-10.1) mg/dl Magnesium 1.9 (1.7-2.4) mg/dl Troponin I High Sens 12.9 D (0-20) pg/ml Random Vancomycin 9.4 L (10-20) mcg/ml 02/10/22 Range/Units 20:01 WBC (4.8-10.8) K/ul RBC (4.63-6.08) M/uL Hgb (14.0-18.0) g/dl Hct (40.1-51.0) % MCV (80.0-100.0) fL MCH (25.0-34.0) pg MCHC (32.0-36.0) g/dL RDW Std Deviation (36.4-46.3) fL RDW Coeff of Raul (11.5-14.5) % Plt Count (130-400) K/uL MPV (9.4-12.4) fL Immature Gran % (Auto) % Neut % (Auto) % Lymph % (Auto) % [place] % (Auto) % Eos % (Auto) % Baso % (Auto) % Neut # (Auto) (1.4-6.5) K/uL Lymph # (Auto) (1.2-3.4) K/uL [place] # (Auto) (0.24-0.82) K/uL Eos # (Auto) (0-0.50) K/uL Baso # (Auto) (0-0.2) K/uL Immature Gran # (Auto) (0.00-0.02) K/uL Sodium (136-145) mmol/L Potassium (3.5-5.1) mmol/L Chloride (98-107) mmol/L Carbon Dioxide (21-32) mmol/L Anion Gap (3-11) BUN (6-23) mg/dl Creatinine (0.6-1.4) mg/dl Est Cr Clr Drug Dosing ml/min Est GFR ( Amer) ml/min Est GFR (Non-Af Amer) ml/min BUN/Creatinine Ratio (10-20) Glucose (70-99(Fasting)) mg/dl POC Glucose 134 H (70-99) mg/dl Calcium (8.5-10.1) mg/dl Magnesium (1.7-2.4) mg/dl Troponin I High Sens (0-20) pg/ml Random Vancomycin (10-20) mcg/ml PG Care Time/CCT Total # of Minutes Spent Total Time Spent with Patient: Total time spent is greater than 50% in coordination of care (as documented) at patient's floor/unit and/or counseling patient: Coding Level of Care Code 68761 Subseq Hosp Care Lvl 3 Diagnoses Sepsis A41.9 MP (acute kidney injury) N17.9 COPD (chronic obstructive pulmonary disease) with chronic bronchitis J44.9 Adrenal insufficiency E27.40 Otitis externa H60.90 Hypoglycemia E16.2 Dysphagia R13.10 CKD (chronic kidney disease) stage 2, GFR 60-89 ml/min N18.2 Benign prostate hyperplasia N40.0 Elevated troponin R77.8 Increased anion gap metabolic acidosis E87.2
[2022-02-11] MEDS: MELATONIN 3 MG TAB PO SCH (20:28)
[2022-02-11] MEDS: QUEtiapine FUMARATE 25 MG TABLET PO SCH (20:29)
[2022-02-12] MEDS: ALBUTEROL 0.083% NEBU SOLN 3 ML VIAL NEB SCH ×4 (00:27→19:52)
[2022-02-12] MEDS: PIPERACILLIN/TAZOBACTAM 4.5 GM in DEXTROSE 5% 100 ML IV SCH ×3 (02:17→17:40)
[2022-02-12] MEDS: DOXYCYCLINE HYCLATE 100 MG in DEXTROSE 5% 100 ML IV SCH ×2 (04:37→15:07)
[2022-02-12] MEDS: HEPARIN SOD 5,000 UNIT/0.5 ML VIAL SQ SCH ×3 (04:37→22:26)
[2022-02-12] MEDS: HYDROCORTISONE SOD 50 MG in SYRINGE 0 ML IV SCH ×2 (04:37→13:18)
[2022-02-12 06:22] LABS: Hematocrit (blood only) 33.1 % (40.1-51.0); Hemoglobin 10.9 g/dl (14.0-18.0); Mean Corpuscular Hemoglobin 26.7 pg (25.0-34.0); Mean Corpuscular Hgb Conc 32.9 g/dL (32.0-36.0); Mean Corpuscular Volume 81.1 fL (80.0-100.0); Mean Platelet Volume 10.3 fL (9.4-12.4); Platelet Count 222 K/uL (130-400); RDW Coefficient of Variation 19.7 % (11.5-14.5); RDW Standard Deviation 58.4 fL (36.4-46.3); Red Blood Count 4.08 M/uL (4.63-6.08); White Blood Count 21.22 K/ul (4.8-10.8)
[2022-02-12 06:54] LABS: BUN Creatinine Ratio 6.5 (10-20); Calcium 8.3 mg/dl (8.5-10.1); Est GFR (African American) 68.8 ml/min; Est GFR (Non-African American) 59.4 ml/min; Magnesium 1.7 mg/dl (1.7-2.4); Potassium 3.2 mmol/L (3.5-5.1)
[2022-02-12 06:59] LABS: Acanthocytes 1+; Basophils # (auto) 0.04 K/uL (0-0.2); Basophils % (auto) 0.2 %; Echinocytes 1+; Immature Granulocytes # (auto) 0.09 K/uL (0.00-0.02); Immature Granulocytes % (auto) 0.4 %; Lymphocytes # (auto) 0.35 K/uL (1.2-3.4); Lymphocytes % (auto) 1.6 %; Monocytes % (auto) 1.4 %; Neutrophils # (auto) 20.44 K/uL (1.4-6.5); Neutrophils % (auto) 96.4 %; Ovalocytes 1+; Poikilocytosis Present
[2022-02-12] MEDS ORDERED: POTASSIUM CHLORIDE 20 MEQ/15 ML UDC PO STA (07:19)
[2022-02-12] MEDS: UMECLIDINIUM/VILANTEROL 62.5/25MCG 7 PUFFS/INHALER INH SCH (08:41)
[2022-02-12] MEDS: FLUTICASONE FUROATE 100MCG 14 PUFFS/INHALER INH SCH (08:41)
[2022-02-12] MEDS: TOBRAMYCIN/DEXAMETHASONE OPH SUSP 2.5 ML BTL OT SCH ×3 (08:42→17:39)
[2022-02-12] MEDS: GABAPENTIN 300 MG CAP PO SCH ×3 (08:43→20:24)
[2022-02-12] MEDS: POLYETHYLENE (MIRALAX) 17 GM PACK PO SCH ×3 (08:43→20:25)
[2022-02-12] MEDS: PANTOprazole 40 MG TAB PO SCH (08:44)
[2022-02-12] MEDS: buPROPion HCl 100 MG TABLET PO SCH (08:44)
[2022-02-12] MEDS: ASPIRIN 81 MG CHEW PO SCH (08:44)
[2022-02-12] MEDS: ATORVASTATIN 40 MG TAB PO SCH (08:45)
[2022-02-12] MEDS: TAMSULOSIN HCL 0.4 MG CAP PO SCH (08:45)
[2022-02-12] MEDS: SENNA 8.6 MG TAB PO SCH (08:45)
[2022-02-12] MEDS: CLOPIDOGREL BISULFATE 75 MG TAB PO SCH (08:46)
[2022-02-12] MEDS: FOLIC ACID 1 MG TAB PO SCH (08:46)
[2022-02-12] MEDS: MIDODRINE HCL 2.5 MG TAB PO SCH ×3 (08:46→15:07)
[2022-02-12] MEDS: MAGNESIUM SULFATE / D5W 1 GM/100 ML BAG IV SCH ×2 (08:49→12:13)
[2022-02-12] MEDS: diphenhydrAMINE 50 MG/ML VIAL IV SCH (08:51)
[2022-02-12] MEDS: INSULIN ASPART PER UNIT SC SCH ×4 (08:52→20:26)
[2022-02-12] MEDS: VANCOMYCIN HCL 1,500 MG in SODIUM CHLORIDE 0.9% 500 ML IV SCH (10:18)
--- NOTE | 2022-02-12 13:34 | Fluoroscopy Report ---
FL video swallow CLINICAL HISTORY: assess for aspiration TECHNIQUE: Video fluoroscopy of the pharyngeal region was performed as barium mixtures of varying con sistencies were administered to the patient by the speech pathologist. A formal esophagram was not pe rformed. COMPARISON: None. FINDINGS: Total fluoroscopy time: 5.5 minutes. The patient swallowed the different barium consistencies without difficulty. Aspiration was seen with thin liquids. With solids, prolonged mastication was noted and she cannot swallow with liquid wash. Pooling of barium was noted in the bilateral piriform sinuses and valleculae. IMPRESSION: Aspiration was noted with thin liquids. Please see the speech pathology report for further details. ACT 112: Negative or not required by law. Electronically signed by: Lanre Douglass M.D. 02/12/2022 1:33 PM
--- NOTE | 2022-02-12 18:40 | Hospitalist Progress Note ---
Date of Service February 12, 2022 Assessment & Plan (1) Sepsis: Plan: Patient presents hypotensive, hypoglycemic, febrile, with elevated WBC, Lactate, and PCT. Likely pulmonary source at this time with thick yellow sputum sent for culture. Has long history of aspiration due to significant esophageal stricture with severe reflux UA neg for infection COVID neg - Evidence of organ dysfunction - lungs, MP, elevated HScTNI, INR 1.2 Much improved after IVF resuscitation and IV abx, stress dose steroid--> MP resolved, trop trended downward, lactate normalized, BPs normalized, leukocytosis was improving but now back up due to steroids -remains afebrile, mentation improved back to his baseline Does have proven aspiration on video swallow today mostly due to esophageal dysfunction causing reflux and with mild-moderate oropharyngeal dysphagia This is a recurrent issue for him - Blood cx-NGTD -sputum cx heavy normal sarah - MRSA swab positive -continue Zosyn, Vanco, and Doxy for broad spectrum for severe sepsis and PULM source -wean IV Hydrocortisone to 25mg q8h x 2 days and then revert to home po HC dosing -follow CBC,BMP in AM -aspiration precautions, needs Speech Tx as an outpt -needs to reschedule EGD for esophageal dilatation-will see if GI can do prior to discharge (2) MP (acute kidney injury): 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: 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, 2/2 ATN from sepsis now improved to 1.2 (3) COPD (chronic obstructive pulmonary disease) with chronic bronchitis: Plan: with some mild wheezing here now improved -continue Albuterol and Trelegy as well as home oxygen - Continue with albuterol nebulizers scheduled with pulmonary cough assist and flutter valve (4) Adrenal insufficiency: Plan: Hydrocortisone 100mg IV loading dose given followed with 50mg IV q8 - wean now as above - continue midodrine - follow -has outpt consult with Endocrine coming up (5) Otitis externa: Plan: Improved as no drainage and less painful per patient- non tender to mastoid bone previous culture- 01/12/22 Org 1 = Staph aureus MRSA Org 2 = Stenotrophomonas maltophilia Org 3 = Staphylococcus aureus - consider imaging if WBC not responsive or continue source identification -Currently, he is not being treated for the Stenotrophomonas as he is allergic to FQ and Bactrim. This bug is resistant to ceftazadime. 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 - Swartz placed on arrival draining clear yellow urine continue Swartz for now but dc tomorrow (9) Benign prostate hyperplasia: Plan: Hold Avodart ,continue Tamsulosin (10) Elevated troponin: Plan: likely demand secondary to hypoxia and sepsis with MP troponin trended back downward no chest pain, no acute ischemic changes on ECG (11) Increased anion gap metabolic acidosis: Plan: Likely secondary to lactate and elevated 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 FIRE FIGHTER 7.29 with normal CO2 and HCo3 now normalized (12) Recurrent left pleural effusion: Plan: s/p thoracentesis last admission with trapped lung present PULM did not recommend further thoracentesis (13) Hypokalemia: Plan: replace with po KCl (14) History of stroke: Plan: continue ASA, Plavix with residual right facial droop, RLE weakness uses wheelchair at baseline, does not ambulate has known bilat ICA occlusions Plan DVT proph-heparin SQ Dispo-continued stay on tele, improving Admission and Anticipated Discharge Date Admission Date: February 10, 2022 Subjective Pt denies any problems, says he feels much better. 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 Tele with SR 1st degree AVB, normal rates in 60s Review of Systems Review of Systems: All systems reviewed & are unremarkable except as noted in HPI & below Physical Exam Constitutional: WD/WN, vitals as above Eyes: + anicteric sclerae ENMT: Ears: + external ear abnormality (left ear mild crusting,no erythema,no drainage) Neck: trachea midline, no thyromegaly Respiratory: + cough; not tachypneic Auscultation: + diminished lung sounds (bibasilar); no rhonchi and no wheezes Cardiovascular: RRR, no murmur, no edema Chest (Breasts): Chest: normal inspection of chest Gastrointestinal (Abdomen): normal bowel sounds, soft, nontender, no hepatosplenomegaly Musculoskeletal: Extremities: extremities normal to inspection; no cyanosis and no clubbing Skin: no rashes, warm and dry Neurologic: moves all extremities and awake; no focal motor deficits Cranial Nerves: + abnormal facial strength (mild right droop of right lips- chronic) Psychiatric: Orientation: alert, oriented to person, oriented to place and cooperative Lymphatic: no lymphedema Results & Data Results & Data ([facility]) Vital Signs (Past 12 Hours) Vital Signs Temp Pulse Pulse Resp BP Pulse Ox O2 Del Method 02/12/22 15:55 36.5 C 79 19 115/69 91 Nasal Cannula 02/12/22 15:33 Nasal Cannula 02/12/22 12:51 82 22 92 Nasal Cannula 02/12/22 11:47 36.4 C L 84 19 138/91 99 Nasal Cannula 02/12/22 11:07 86 02/12/22 10:50 Nasal Cannula 02/12/22 07:40 36.4 C L 79 19 135/79 99 Room Air 02/12/22 07:08 82 20 92 Room Air O2 Flow Rate 02/12/22 15:55 02/12/22 15:33 2 02/12/22 12:51 2 02/12/22 11:47 2 02/12/22 11:07 02/12/22 10:50 2 02/12/22 07:40 02/12/22 07:08 Laboratory Results 02/12/22 02/12/22 02/12/22 Range/Units 16:19 11:50 07:42 WBC (4.8-10.8) K/ul RBC (4.63-6.08) M/uL Hgb (14.0-18.0) g/dl Hct (40.1-51.0) % MCV (80.0-100.0) fL MCH (25.0-34.0) pg MCHC (32.0-36.0) g/dL RDW Std Deviation (36.4-46.3) fL RDW Coeff of Raul (11.5-14.5) % Plt Count (130-400) K/uL MPV (9.4-12.4) fL Immature Gran % (Auto) % Neut % (Auto) % Lymph % (Auto) % [place] % (Auto) % Eos % (Auto) % Baso % (Auto) % Neut # (Auto) (1.4-6.5) K/uL Lymph # (Auto) (1.2-3.4) K/uL [place] # (Auto) (0.24-0.82) K/uL Eos # (Auto) (0-0.50) K/uL Baso # (Auto) (0-0.2) K/uL Immature Gran # (Auto) (0.00-0.02) K/uL Poikilocytosis Ovalocytes Echinocytes Acanthocytes (Spur) Sodium (136-145) mmol/L Potassium (3.5-5.1) mmol/L Chloride (98-107) mmol/L Carbon Dioxide (21-32) mmol/L Anion Gap (3-11) BUN (6-23) mg/dl Creatinine (0.6-1.4) mg/dl Est Cr Clr Drug Dosing ml/min Est GFR ( Amer) ml/min Est GFR (Non-Af Amer) ml/min BUN/Creatinine Ratio (10-20) Glucose (70-99(Fasting)) mg/dl POC Glucose 172 H 176 H 141 H (70-99) mg/dl Calcium (8.5-10.1) mg/dl Magnesium (1.7-2.4) mg/dl 02/12/22 02/12/22 02/11/22 Range/Units 05:47 05:47 20:17 WBC 21.22 H (4.8-10.8) K/ul RBC 4.08 L (4.63-6.08) M/uL Hgb 10.9 L (14.0-18.0) g/dl Hct 33.1 L (40.1-51.0) % MCV 81.1 (80.0-100.0) fL MCH 26.7 (25.0-34.0) pg MCHC 32.9 (32.0-36.0) g/dL RDW Std Deviation 58.4 H (36.4-46.3) fL RDW Coeff of Raul 19.7 H (11.5-14.5) % Plt Count 222 (130-400) K/uL MPV 10.3 (9.4-12.4) fL Immature Gran % (Auto) 0.4 % Neut % (Auto) 96.4 % Lymph % (Auto) 1.6 % [place] % (Auto) 1.4 % Eos % (Auto) 0.0 % Baso % (Auto) 0.2 % Neut # (Auto) 20.44 H (1.4-6.5) K/uL Lymph # (Auto) 0.35 L (1.2-3.4) K/uL [place] # (Auto) 0.30 (0.24-0.82) K/uL Eos # (Auto) 0.00 (0-0.50) K/uL Baso # (Auto) 0.04 (0-0.2) K/uL Immature Gran # (Auto) 0.09 H (0.00-0.02) K/uL Poikilocytosis Present Ovalocytes 1+ Echinocytes 1+ Acanthocytes (Spur) 1+ Sodium 141 (136-145) mmol/L Potassium 3.2 L (3.5-5.1) mmol/L Chloride 109 H (98-107) mmol/L Carbon Dioxide 25 (21-32) mmol/L Anion Gap 7 (3-11) BUN 8 (6-23) mg/dl Creatinine 1.24 (0.6-1.4) mg/dl Est Cr Clr Drug Dosing 57.0 ml/min Est GFR ( Amer) 68.8 ml/min Est GFR (Non-Af Amer) 59.4 ml/min BUN/Creatinine Ratio 6.5 L (10-20) Glucose 158 H (70-99(Fasting)) mg/dl POC Glucose 123 H (70-99) mg/dl Calcium 8.3 L (8.5-10.1) mg/dl Magnesium 1.7 (1.7-2.4) mg/dl PG Care Time/CCT Total # of Minutes Spent Total Time Spent with Patient: Total time spent is greater than 50% in coordination of care (as documented) at patient's floor/unit and/or counseling patient: Coding Level of Care Code 08064 Subseq Hosp Care Lvl 3 Diagnoses Sepsis A41.9 MP (acute kidney injury) N17.9 COPD (chronic obstructive pulmonary disease) with chronic bronchitis J44.9 Adrenal insufficiency E27.40 Otitis externa H60.90 Hypoglycemia E16.2 Dysphagia R13.10 CKD (chronic kidney disease) stage 2, GFR 60-89 ml/min N18.2 Benign prostate hyperplasia N40.0 Elevated troponin R77.8 Increased anion gap metabolic acidosis E87.2 Recurrent left pleural effusion J90 Hypokalemia E87.6 History of stroke Z86.73
[2022-02-12] MEDS: MELATONIN 3 MG TAB PO SCH (20:24)
[2022-02-12] MEDS: QUEtiapine FUMARATE 25 MG TABLET PO SCH (20:24)
[2022-02-12] MEDS: HYDROCORTISONE SOD 25 MG in SYRINGE 0 ML IV SCH (20:25)
[2022-02-13] MEDS: ALBUTEROL 0.083% NEBU SOLN 3 ML VIAL NEB SCH ×4 (00:20→19:28)
[2022-02-13] MEDS: PIPERACILLIN/TAZOBACTAM 4.5 GM in DEXTROSE 5% 100 ML IV SCH ×3 (02:07→17:37)
[2022-02-13] MEDS: HYDROCORTISONE SOD 25 MG in SYRINGE 0 ML IV SCH ×3 (04:56→21:37)
[2022-02-13] MEDS: DOXYCYCLINE HYCLATE 100 MG in DEXTROSE 5% 100 ML IV SCH (05:24)
[2022-02-13] MEDS: HEPARIN SOD 5,000 UNIT/0.5 ML VIAL SQ SCH ×3 (05:36→21:36)
[2022-02-13 06:35] LABS: Hematocrit (blood only) 30.3 % (40.1-51.0); Mean Corpuscular Hemoglobin 26.5 pg (25.0-34.0); Mean Corpuscular Volume 80.2 fL (80.0-100.0); Mean Platelet Volume 10.9 fL (9.4-12.4); Platelet Count 215 K/uL (130-400); RDW Coefficient of Variation 20.2 % (11.5-14.5); RDW Standard Deviation 58.7 fL (36.4-46.3); Red Blood Count 3.78 M/uL (4.63-6.08); White Blood Count 16.05 K/ul (4.8-10.8)
[2022-02-13 06:58] LABS: Anisocytosis Present; Basophils # (auto) 0.02 K/uL (0-0.2); Basophils % (auto) 0.1 %; Echinocytes 1+; Immature Granulocytes # (auto) 0.18 K/uL (0.00-0.02); Immature Granulocytes % (auto) 1.1 %; Lymphocytes # (auto) 0.37 K/uL (1.2-3.4); Lymphocytes % (auto) 2.3 %; Monocytes # (auto) 0.42 K/uL (0.24-0.82); Monocytes % (auto) 2.6 %; Neutrophils # (auto) 15.06 K/uL (1.4-6.5); Neutrophils % (auto) 93.9 %
[2022-02-13 07:14] LABS: BUN Creatinine Ratio 5.2 (10-20); Calcium 8.5 mg/dl (8.5-10.1); Creatinine Clr Calc Pharmacy 61.5 ml/min; Est GFR (African American) 75.4 ml/min; Potassium 3.4 mmol/L (3.5-5.1)
[2022-02-13] MEDS: MIDODRINE HCL 2.5 MG TAB PO SCH ×3 (09:11→17:34)
[2022-02-13] MEDS: POLYETHYLENE (MIRALAX) 17 GM PACK PO SCH ×3 (09:12→21:37)
[2022-02-13] MEDS: UMECLIDINIUM/VILANTEROL 62.5/25MCG 7 PUFFS/INHALER INH SCH (09:12)
[2022-02-13] MEDS: FLUTICASONE FUROATE 100MCG 14 PUFFS/INHALER INH SCH (09:13)
[2022-02-13] MEDS: GABAPENTIN 300 MG CAP PO SCH ×3 (09:13→21:36)
[2022-02-13] MEDS: SENNA 8.6 MG TAB PO SCH (09:14)
[2022-02-13] MEDS: CLOPIDOGREL BISULFATE 75 MG TAB PO SCH (09:14)
[2022-02-13] MEDS: TAMSULOSIN HCL 0.4 MG CAP PO SCH (09:14)
[2022-02-13] MEDS: buPROPion HCl 100 MG TABLET PO SCH (09:14)
[2022-02-13] MEDS: ASPIRIN 81 MG CHEW PO SCH (09:15)
[2022-02-13] MEDS: PANTOprazole 40 MG TAB PO SCH (09:15)
[2022-02-13] MEDS: FOLIC ACID 1 MG TAB PO SCH (09:15)
[2022-02-13] MEDS: ATORVASTATIN 40 MG TAB PO SCH (09:15)
[2022-02-13] MEDS: INSULIN ASPART PER UNIT SC SCH ×4 (09:16→20:29)
[2022-02-13] MEDS: diphenhydrAMINE 50 MG/ML VIAL IV SCH (09:18)
--- NOTE | 2022-02-13 09:41 | Pharmacy Report ---
Pharmacy PK ABX Note - Date of Service February 13, 2022 - Assessment and Plan Assessment 67 year old M receiving vancomycin, zosyn, and doxycycline for treatment of sepsis due to presumed pulmonary source. * Day #4 of abx therapy. * Blood cultures with no growth to date. Sputum cx grew heavy normal sarah. * MRSA swab positive. Leukocytosis improving. Afebrile x 48 hours. * Doxycycline discontinued today. Plan Vancomycin * Current regimen: 1500 mg IV every 24 hours * Random level obtained 02/13/22 resulted as 15.4 mcg/mL. This is predicted to achieve target AUC/GLENNA of 400-600 mg/L.hr * Predicted AUC at steady state: 490 mg/L.hr * Continue 1500 mg IV every 24 hours * Repeat random level ordered for: 02/15/22 Zosyn * Continue 4.5 g IV every 8 hours Pharmacy will continue to follow and will adjust dose/frequency as necessary. Thank you. Pharmacy has transitioned to AUC monitoring for vancomycin. AUC/GLENNA is the preferred PK/PD target and is associated with decreased risk of nephrotoxicity compared to traditional trough targets.
[2022-02-13] MEDS ORDERED: POTASSIUM CHLORIDE 20 MEQ/15 ML UDC PO ONE (10:00)
[2022-02-13] MEDS: VANCOMYCIN HCL 1,500 MG in SODIUM CHLORIDE 0.9% 500 ML IV SCH (10:27)
--- NOTE | 2022-02-13 18:38 | Hospitalist Progress Note ---
Date of Service February 13, 2022 Assessment & Plan (1) Sepsis: Plan: Patient presents hypotensive, hypoglycemic, febrile, with elevated WBC, Lactate, and PCT. Likely pulmonary source at this time due to ongoing, frequent aspiration Has long history of aspiration due to significant esophageal stricture with severe reflux UA neg for infection COVID neg BCxs remain NGTD Sputum cx heavy normal sarah MRSA swab positive With evidence of organ dysfunction - lungs, MP, elevated HScTNI, INR 1.2 on admission now improved Much improved after IVF resuscitation and IV abx, stress dose steroid--> MP resolved, trop trended downward, lactate normalized, BPs normalized, leukocytosis was improving but now back up due to steroids -remains afebrile, mentation improved back to his baseline Does have proven aspiration on video swallow here mostly due to esophageal dysf unction causing reflux and with mild-moderate oropharyngeal dysphagia This is a recurrent issue for him requiring esophageal dilatations, however I do have concern for new CVA or brain mets less likely (h/o lung CA) -continue Zosyn, Vanco, but can now discontinue Doxy for broad spectrum for severe sepsis and PULM source -continue IV Hydrocortisone to 25mg q8h x 1 more day and then revert to home po HC dosing -follow CBC,BMP in AM -aspiration precautions, needs Speech Tx as an outpt -needs to reschedule EGD for esophageal dilatation-will see if GI can do prior to discharge-consult GI now -if esophageal dilatations not effective at helping improve reflux, I wonder if a PEG tube would be a better option for him given his frequent overt aspiration although his esophageal reflux would make aspiration still possible even with PEG tube -will check brain MRI with/without contrast to assess for new CVA and/or brain mass given right sided facial droop which was noted to be present by Speech therapist last admission (several weeks ago) but I do not recall it being as prominent as it is now this admission (2) MP (acute kidney injury): Plan: production helper 1.8 on arrival, 2/2 ATN from sepsis now improved to 1.1 making copious urine now (3) COPD (chronic obstructive pulmonary disease) with chronic bronchitis: Plan: with some mild wheezing here now improved -continue Albuterol and Trelegy as well as home oxygen - Continue with albuterol nebulizers scheduled -dc cough assist as he vomits every time he tries to use it (4) Adrenal insufficiency: Plan: Hydrocortisone 100mg IV loading dose given followed with 50mg IV q8 - wean now as above - continue midodrine - follow -has outpt consult with Endocrine coming up (5) Otitis externa: Plan: Improved as no drainage and less painful per patient- non tender to mastoid bone previous culture- 01/12/22 Org 1 = Staph aureus MRSA Org 2 = Stenotrophomonas maltophilia Org 3 = Staphylococcus aureus - consider imaging if WBC not responsive or continue source identification -Currently, he is not being treated for the Stenotrophomonas as he is allergic t o FQ and Bactrim. This bug is resistant to ceftazadime. 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- 1.89 on admission - Swartz placed on arrival draining clear yellow urine -continue Swartz for now (9) Benign prostate hyperplasia: Plan: Hold Avodart ,continue Tamsulosin (10) Elevated troponin: Plan: likely demand secondary to hypoxia and sepsis with MP troponin trended back downward no chest pain, no acute ischemic changes on ECG (11) Increased anion gap metabolic acidosis: Plan: Likely secondary to lactate and elevated LOBBY ATTENDANT 7.29 with normal CO2 and HCo3 now normalized (12) Recurrent left pleural effusion: Plan: s/p thoracentesis last admission with trapped lung present PULM did not recommend further thoracentesis (13) Hypokalemia: Plan: replace with po KCl again today follow BMP, Mag in AM (14) History of stroke: Plan: continue ASA, Plavix uses wheelchair at baseline, does not ambulate has known bilat ICA occlusions with collaterals filling the COW with right facial droop perhaps worsening as above since last admission--> checking brain MRI not much to do if new CVA found but would perhaps explain current symptoms (15) Cellulitis, leg: Plan: noted on 02/13 to have erythema and warmth spreading around a scab on right parr continue on Zomalun Vanco as above for PNA which would also cover for cellulitis Plan DVT proph-heparin SQ Dispo-continued stay on tele Admission and Anticipated Discharge Date Admission Date: February 10, 2022 Subjective Pt continues to reflux/vomit almost everything he swallows. He denies any nausea. He is constantly coughing and has a hoarse voice. Says if he continues to aspirate, he would be agreeable to a PEG tube if it came down to it. Review of Systems Review of Systems: All systems reviewed & are unremarkable except as noted in HPI & below Physical Exam Constitutional: WD/WN, vitals as above Eyes: + anicteric sclerae ENMT: Ears: + external ear abnormality (left ear mild crusting,no erythema,no drainage) Neck: trachea midline, no thyromegaly Respiratory: + cough; not tachypneic Auscultation: + diminished lung sounds (bibasilar) and + rhonchi (dupper airways); no wheezes Cardiovascular: RRR, no murmur, no edema Chest (Breasts): Chest: normal inspection of chest Gastrointestinal (Abdomen): normal bowel sounds, soft, nontender, no hepatosplenomegaly Musculoskeletal: Extremities: extremities normal to inspection; no cyanosis and no clubbing Skin: + erythema (scabs right parr with surrounding erythema,warmth down to distal tibia) Neurologic: moves all extremities and awake; no focal motor deficits Motor/Sensory: no tremor Cranial Nerves: + abnormal facial strength (+right droop of face) Psychiatric: A+Ox3, euthymic affect Orientation: cooperative Lymphatic: no lymphedema Results & Data Results & Data ([facility]) Vital Signs (Past 12 Hours) Vital Signs Temp Pulse Pulse Resp BP BP Pulse Ox 02/13/22 16:47 36.4 C L 78 20 165/80 H 94 02/13/22 14:34 02/13/22 13:43 78 16 94 02/13/22 13:10 75 94 02/13/22 11:47 36.4 C L 80 20 128/71 91 02/13/22 10:38 74 02/13/22 08:00 02/13/22 07:06 75 18 92 02/13/22 07:02 36.5 C 71 16 156/62 H 92 O2 Del Method 02/13/22 16:47 Room Air 02/13/22 14:34 Nasal Cannula 02/13/22 13:43 Room Air 02/13/22 13:10 Room Air 02/13/22 11:47 Room Air 02/13/22 10:38 02/13/22 08:00 Room Air 02/13/22 07:06 Room Air 02/13/22 07:02 Room Air Laboratory Results 02/13/22 02/13/22 02/13/22 Range/Units 16:44 12:07 07:49 WBC (4.8-10.8) K/ul RBC (4.63-6.08) M/uL Hgb (14.0-18.0) g/dl Hct (40.1-51.0) % MCV (80.0-100.0) fL MCH (25.0-34.0) pg MCHC (32.0-36.0) g/dL RDW Std Deviation (36.4-46.3) fL RDW Coeff of Raul (11.5-14.5) % Plt Count (130-400) K/uL MPV (9.4-12.4) fL Immature Gran % (Auto) % Neut % (Auto) % Lymph % (Auto) % Blount % (Auto) % Eos % (Auto) % Baso % (Auto) % Neut # (Auto) (1.4-6.5) K/uL Lymph # (Auto) (1.2-3.4) K/uL Blount # (Auto) (0.24-0.82) K/uL Eos # (Auto) (0-0.50) K/uL Baso # (Auto) (0-0.2) K/uL Immature Gran # (Auto) (0.00-0.02) K/uL Anisocytosis Echinocytes Sodium (136-145) mmol/L Potassium (3.5-5.1) mmol/L Chloride (98-107) mmol/L Carbon Dioxide (21-32) mmol/L Anion Gap (3-11) BUN (6-23) mg/dl Creatinine (0.6-1.4) mg/dl Est Cr Clr Drug Dosing ml/min Est GFR ( Amer) ml/min Est GFR (Non-Af Amer) ml/min BUN/Creatinine Ratio (10-20) Glucose (70-99(Fasting)) mg/dl POC Glucose 76 164 H 122 H (70-99) mg/dl Calcium (8.5-10.1) mg/dl Magnesium (1.7-2.4) mg/dl Random Vancomycin (10-20) mcg/ml 02/13/22 02/13/22 02/13/22 Range/Units 05:58 05:58 05:58 WBC 16.05 H (4.8-10.8) K/ul RBC 3.78 L (4.63-6.08) M/uL Hgb 10.0 L (14.0-18.0) g/dl Hct 30.3 L (40.1-51.0) % MCV 80.2 (80.0-100.0) fL MCH 26.5 (25.0-34.0) pg MCHC 33.0 (32.0-36.0) g/dL RDW Std Deviation 58.7 H (36.4-46.3) fL RDW Coeff of Raul 20.2 H (11.5-14.5) % Plt Count 215 (130-400) K/uL MPV 10.9 (9.4-12.4) fL Immature Gran % (Auto) 1.1 % Neut % (Auto) 93.9 % Lymph % (Auto) 2.3 % Blount % (Auto) 2.6 % Eos % (Auto) 0.0 % Baso % (Auto) 0.1 % Neut # (Auto) 15.06 H (1.4-6.5) K/uL Lymph # (Auto) 0.37 L (1.2-3.4) K/uL Blount # (Auto) 0.42 (0.24-0.82) K/uL Eos # (Auto) 0.00 (0-0.50) K/uL Baso # (Auto) 0.02 (0-0.2) K/uL Immature Gran # (Auto) 0.18 H (0.00-0.02) K/uL Anisocytosis Present Echinocytes 1+ Sodium 142 (136-145) mmol/L Potassium 3.4 L (3.5-5.1) mmol/L Chloride 108 H (98-107) mmol/L Carbon Dioxide 27 (21-32) mmol/L Anion Gap 7 (3-11) BUN 6 (6-23) mg/dl Creatinine 1.15 (0.6-1.4) mg/dl Est Cr Clr Drug Dosing 61.5 ml/min Est GFR ( Amer) 75.4 ml/min Est GFR (Non-Af Amer) 65.0 ml/min BUN/Creatinine Ratio 5.2 L (10-20) Glucose 130 H (70-99(Fasting)) mg/dl POC Glucose (70-99) mg/dl Calcium 8.5 (8.5-10.1) mg/dl Magnesium 2.0 (1.7-2.4) mg/dl Random Vancomycin 15.4 (10-20) mcg/ml 02/12/22 Range/Units 20:05 WBC (4.8-10.8) K/ul RBC (4.63-6.08) M/uL Hgb (14.0-18.0) g/dl Hct (40.1-51.0) % MCV (80.0-100.0) fL MCH (25.0-34.0) pg MCHC (32.0-36.0) g/dL RDW Std Deviation (36.4-46.3) fL RDW Coeff of Raul (11.5-14.5) % Plt Count (130-400) K/uL MPV (9.4-12.4) fL Immature Gran % (Auto) % Neut % (Auto) % Lymph % (Auto) % Blount % (Auto) % Eos % (Auto) % Baso % (Auto) % Neut # (Auto) (1.4-6.5) K/uL Lymph # (Auto) (1.2-3.4) K/uL Blount # (Auto) (0.24-0.82) K/uL Eos # (Auto) (0-0.50) K/uL Baso # (Auto) (0-0.2) K/uL Immature Gran # (Auto) (0.00-0.02) K/uL Anisocytosis Echinocytes Sodium (136-145) mmol/L Potassium (3.5-5.1) mmol/L Chloride (98-107) mmol/L Carbon Dioxide (21-32) mmol/L Anion Gap (3-11) BUN (6-23) mg/dl Creatinine (0.6-1.4) mg/dl Est Cr Clr Drug Dosing ml/min Est GFR ( Amer) ml/min Est GFR (Non-Af Amer) ml/min BUN/Creatinine Ratio (10-20) Glucose (70-99(Fasting)) mg/dl POC Glucose 84 (70-99) mg/dl Calcium (8.5-10.1) mg/dl Magnesium (1.7-2.4) mg/dl Random Vancomycin (10-20) mcg/ml PG Care Time/CCT Total # of Minutes Spent Total Time Spent with Patient: Total time spent is greater than 50% in coordination of care (as documented) at patient's floor/unit and/or counseling patient: Coding Level of Care Code 56739 Subseq Hosp Care Lvl 3 Diagnoses Sepsis A41.9 MP (acute kidney injury) N17.9 COPD (chronic obstructive pulmonary disease) with chronic bronchitis J44.9 Adrenal insufficiency E27.40 Otitis externa H60.90 Hypoglycemia E16.2 Dysphagia R13.10 CKD (chronic kidney disease) stage 2, GFR 60-89 ml/min N18.2 Benign prostate hyperplasia N40.0 Elevated troponin R77.8 Increased anion gap metabolic acidosis E87.2 Recurrent left pleural effusion J90 Hypokalemia E87.6 History of stroke Z86.73 Cellulitis, leg L03.119
[2022-02-13] MEDS: MELATONIN 3 MG TAB PO SCH (21:36)
[2022-02-13] MEDS: QUEtiapine FUMARATE 25 MG TABLET PO SCH (21:37)
[2022-02-14] MEDS: ALBUTEROL 0.083% NEBU SOLN 3 ML VIAL NEB SCH ×4 (00:46→19:27)
[2022-02-14] MEDS: PIPERACILLIN/TAZOBACTAM 4.5 GM in DEXTROSE 5% 100 ML IV SCH ×3 (01:40→17:22)
[2022-02-14] MEDS: HEPARIN SOD 5,000 UNIT/0.5 ML VIAL SQ SCH ×3 (05:25→21:18)
[2022-02-14] MEDS: HYDROCORTISONE SOD 25 MG in SYRINGE 0 ML IV SCH ×2 (05:25→13:08)
[2022-02-14 07:26] LABS: Hematocrit (blood only) 36.3 % (40.1-51.0); Hemoglobin 11.6 g/dl (14.0-18.0); Mean Corpuscular Hemoglobin 26.3 pg (25.0-34.0); Mean Corpuscular Volume 82.3 fL (80.0-100.0); Mean Platelet Volume 10.2 fL (9.4-12.4); Platelet Count 226 K/uL (130-400); RDW Coefficient of Variation 20.7 % (11.5-14.5); RDW Standard Deviation 61.6 fL (36.4-46.3); Red Blood Count 4.41 M/uL (4.63-6.08); White Blood Count 14.16 K/ul (4.8-10.8)
[2022-02-14 07:47] LABS: BUN Creatinine Ratio 6.1 (10-20); Creatinine Clr Calc Pharmacy 72.1 ml/min; Est GFR (African American) 91.4 ml/min; Est GFR (Non-African American) 78.9 ml/min; Magnesium 1.9 mg/dl (1.7-2.4); Potassium 3.1 mmol/L (3.5-5.1)
[2022-02-14 07:57] LABS: Anisocytosis Present; Basophils # (auto) 0.03 K/uL (0-0.2); Basophils % (auto) 0.2 %; Echinocytes 1+; Eosinophils # (auto) 0.05 K/uL (0-0.50); Eosinophils % (auto) 0.4 %; Immature Granulocytes # (auto) 0.26 K/uL (0.00-0.02); Immature Granulocytes % (auto) 1.8 %; Lymphocytes # (auto) 0.33 K/uL (1.2-3.4); Lymphocytes % (auto) 2.3 %; Monocytes # (auto) 0.39 K/uL (0.24-0.82); Monocytes % (auto) 2.8 %; Neutrophils % (auto) 92.5 %
[2022-02-14] MEDS: MIDODRINE HCL 2.5 MG TAB PO SCH ×3 (08:09→16:58)
[2022-02-14] MEDS: FLUTICASONE FUROATE 100MCG 14 PUFFS/INHALER INH SCH (08:12)
[2022-02-14] MEDS: UMECLIDINIUM/VILANTEROL 62.5/25MCG 7 PUFFS/INHALER INH SCH (08:13)
[2022-02-14] MEDS: GABAPENTIN 300 MG CAP PO SCH ×3 (08:13→21:18)
[2022-02-14] MEDS: POLYETHYLENE (MIRALAX) 17 GM PACK PO SCH ×3 (08:13→21:13)
[2022-02-14] MEDS: ASPIRIN 81 MG CHEW PO SCH (08:55)
[2022-02-14] MEDS: diphenhydrAMINE 50 MG/ML VIAL IV SCH (08:55)
[2022-02-14] MEDS: VANCOMYCIN HCL 1,500 MG in SODIUM CHLORIDE 0.9% 500 ML IV SCH (08:55)
[2022-02-14] MEDS: INSULIN ASPART PER UNIT SC SCH ×4 (09:02→20:51)
[2022-02-14] MEDS ORDERED: POTASSIUM CHLORIDE 20 MEQ/15 ML UDC PO ONE (10:00)
[2022-02-14] MEDS: CLOPIDOGREL BISULFATE 75 MG TAB PO SCH (10:26)
[2022-02-14] MEDS: ATORVASTATIN 40 MG TAB PO SCH (10:26)
[2022-02-14] MEDS: SENNA 8.6 MG TAB PO SCH (10:27)
[2022-02-14] MEDS: FOLIC ACID 1 MG TAB PO SCH (11:46)
[2022-02-14] MEDS: buPROPion HCl 100 MG TABLET PO SCH (11:46)
[2022-02-14] MEDS: PANTOprazole 40 MG TAB PO SCH (11:46)
[2022-02-14] MEDS: TAMSULOSIN HCL 0.4 MG CAP PO SCH (11:46)
[2022-02-14] MEDS ORDERED: GADOBUTROL 65ML VIAL IV ONE (12:17)
--- NOTE | 2022-02-14 12:49 | Magnetic Resonance Report ---
MR brain wo/w con HISTORY: 67 years-old Male right facial droop.r/o CVA,brain mets acute strokelike symptoms COMPARISON: Head CT 02/10/2022, brain MRI 03/18/2021 TECHNIQUE: Multiplanar multisequence MRI of the brain was obtained both with and without the use of 7 .6 cc Gadavist FINDINGS: Merchandise Director localizer images demonstrate no gross extracranial abnormality. There is no restricted diffusio n to suggest acute or subacute infarct. Unremarkable midline structures. Degenerative changes of the imaged cervical spine. Study is motion degraded. No acute intracranial hemorrhage, midline shift, abn ormal extra-axial collection, hydrocephalus or intracranial mass. Involutional changes. Mild to moder ate T2/FLAIR hyperintense foci throughout the white matter are suggestive of chronic microvascular is chemic disease. Chronic left frontal lobe and left basal ganglia infarcts with gliosis. No abnormal e nhancement. The mesial temporal lobes appear unremarkable. Loss of the normal flow voids within the distal internal carotid arteries is similar to the prior brad dy. Cerebral venous sinuses are patent. Skull, orbits and soft tissues are unremarkable. Prior bilate ral lens repair. Trace right mastoid effusion. The paranasal sinuses are clear. Central canal stenosi s at C3-C4 secondary to discogenic degeneration and facet arthrosis. IMPRESSION: 1. No acute intracranial abnormality. No acute or subacute infarct. 2. Involutional changes with chronic microvascular ischemic disease. 3. Chronic left frontal lobe and left basal ganglia infarcts. 4. Loss of the normal flow voids within the distal internal carotid arteries is unchanged from 2020 and is likely secondary to stenosis from atherosclerotic vascular disease. 5. No abnormal enhancement. 6. There is at least mild central canal stenosis at C3-C4 secondary to a posterior annular disc bulge . ACT 112: Negative or not required by law. The above report was generated using voice recognition software. It may contain grammatical, syntax o r spelling errors. Electronically signed by: Александр Moore M.D. 02/14/2022 12:47 PM
--- NOTE | 2022-02-14 14:56 | Billing Data ---
Date of Service February 14, 2022 Coding Level of Care Code 32081 Initial Inpt Care Lvl 3
--- NOTE | 2022-02-14 16:22 | Hospitalist Progress Note ---
Date of Service February 14, 2022 Assessment & Plan (1) Sepsis: Plan: Patient presents hypotensive, hypoglycemic, febrile, with elevated WBC, Lactate, and PCT. Likely pulmonary source at this time due to ongoing, frequent aspiration Has long history of aspiration due to significant esophageal stricture with severe reflux UA neg for infection COVID neg BCxs remain NGTD Sputum cx heavy normal sarah MRSA swab positive With evidence of organ dysfunction - lungs, MP, elevated HScTNI, INR 1.2 on admission now improved Much improved after IVF resuscitation and IV abx, stress dose steroid--> MP resolved, trop trended downward, lactate normalized, BPs normalized, leukocytosis was improving but now back up due to steroids -remains afebrile, mentation improved back to his baseline Does have proven aspiration on video swallow here mostly due to esophageal dysf unction causing reflux and with mild-moderate oropharyngeal dysphagia This is a recurrent issue for him requiring esophageal dilatations, however I had concern for new CVA or brain mets less likely (h/o lung CA)--> checked brain MRI-negative for new CVA -continue Zosyn, Vanco for broad spectrum for severe sepsis and PULM source -dc IV Hydrocortisone and revert to home po HC dosing for tomorrow -follow CBC,BMP in AM -aspiration precautions, needs Speech Tx as an outpt -Appreciate GI consult-plan for EGD for esophageal dilatation-likely Tuesday -if esophageal dilatations not effective at helping improve reflux, I wonder if a PEG tube would be a better option for him given his frequent overt aspiration although his esophageal reflux would make aspiration still possible even with PEG tube (2) MP (acute kidney injury): 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, 2/2 ATN from sepsis now improved to 0.98 having post-ATN diuresis--> put out 6L of urine yesterday and Na+ increasing will watch carefully but UOP today seems to be a little slower (3) COPD (chronic obstructive pulmonary disease) with chronic bronchitis: Plan: with some mild wheezing here now improving -continue Albuterol and Trelegy as well as home oxygen - Continue with albuterol nebulizers scheduled -dc cough assist as he vomits every time he tries to use it (4) Adrenal insufficiency: Plan: Hydrocortisone 100mg IV loading dose given followed with wean down - continue midodrine - follow -has outpt consult with Endocrine coming up (5) Otitis externa: Plan: Improved as no drainage and less painful per patient- non tender to mastoid bone previous culture- 01/12/22 Org 1 = Staph aureus MRSA Org 2 = Stenotrophomonas maltophilia Org 3 = Staphylococcus aureus - consider imaging if WBC not responsive or continue source identification -Currently, he is not being treated for the Stenotrophomonas as he is allergic to FQ and Bactrim. This bug is resistant to ceftazadime. 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- 1.89 on admission - Swartz placed on arrival draining clear yellow urine -continue Swartz for now (9) Benign prostate hyperplasia: Plan: Hold Avodart ,continue Tamsulosin (10) Elevated troponin: Plan: likely demand secondary to hypoxia and sepsis with MP troponin trended back downward no chest pain, no acute ischemic changes on ECG (11) Increased anion gap metabolic acidosis: Plan: Likely secondary to lactate and elevated MINERALOGY PROFESSOR 7.29 with normal CO2 and HCo3 now normalized (12) Recurrent left pleural effusion: Plan: s/p thoracentesis last admission with trapped lung present PULM did not recommend further thoracentesis (13) Hypokalemia: Plan: replace with po KCl elixir again today follow BMP, Mag in AM (14) History of stroke: Plan: continue ASA, Plavix uses wheelchair at baseline, does not ambulate has known bilat ICA occlusions with collaterals filling the COW with right facial droop perhaps worsening as above since last admission--> checked brain MRI and no new stroke since 03/2021 MRI (15) Cellulitis, leg: Plan: noted on 02/13 to have erythema and warmth spreading around a scab on right parr- persists continue on Zosyn, Vanco as above for PNA which would also cover for cellulitis (16) Hypernatremia: Plan: as above, Na+ up to 146 from copious UOP from post-ATN diuresis? may need to give D5W and/or desmopressin follow BMP tomorrow Plan DVT proph-heparin SQ Dispo-continued stay on tele Admission and Anticipated Discharge Date Admission Date: February 10, 2022 Subjective Still refluxing up his clears but reports he feels very hungry. No other concerns Discussed his case with Dr. Blake of GI Review of Systems Review of Systems: All systems reviewed & are unremarkable except as noted in HPI & below Physical Exam Constitutional: WD/WN, vitals as above Eyes: + anicteric sclerae ENMT: Ears: + external ear abnormality (left ear mild crusting,no erythema,no drainage) Neck: trachea midline, no thyromegaly Respiratory: + cough; not tachypneic Auscultation: + diminished lung sounds (bibasilar), + rhonchi (dupper airways) and + wheezes (bilat) Cardiovascular: RRR, no murmur, no edema Chest (Breasts): Chest: normal inspection of chest Gastrointestinal (Abdomen): normal bowel sounds, soft, nontender, no hepatosplenomegaly Musculoskeletal: Extremities: extremities normal to inspection; no cyanosis and no clubbing Skin: no rashes, warm and dry + erythema (scabs right parr with surrounding erythema,warmth down to distal tibia) Neurologic: moves all extremities and awake; no focal motor deficits M otor/Sensory: no tremor Cranial Nerves: + abnormal facial strength (+right droop of face) Psychiatric: A+Ox3, euthymic affect Genitourinary: Swartz with clear yellow urine Lymphatic: no lymphedema Results & Data Results & Data ([facility]) Vital Signs (Past 12 Hours) Vital Signs Temp Pulse Resp BP Pulse Ox O2 Del Method 02/14/22 14:47 36.3 C L 74 18 162/87 H 91 Room Air 02/14/22 08:00 Room Air 02/14/22 07:27 36.4 C L 87 18 153/98 H 92 Room Air 02/14/22 07:02 80 18 91 Room Air Laboratory Results 02/14/22 02/14/22 02/14/22 Range/Units 12:39 08:14 06:46 WBC 14.16 H (4.8-10.8) K/ul RBC 4.41 L (4.63-6.08) M/uL Hgb 11.6 L (14.0-18.0) g/dl Hct 36.3 L (40.1-51.0) % MCV 82.3 (80.0-100.0) fL MCH 26.3 (25.0-34.0) pg MCHC 32.0 (32.0-36.0) g/dL RDW Std Deviation 61.6 H (36.4-46.3) fL RDW Coeff of Raul 20.7 H (11.5-14.5) % Plt Count 226 (130-400) K/uL MPV 10.2 (9.4-12.4) fL Immature Gran % (Auto) 1.8 % Neut % (Auto) 92.5 % Lymph % (Auto) 2.3 % Lamar % (Auto) 2.8 % Eos % (Auto) 0.4 % Baso % (Auto) 0.2 % Neut # (Auto) 13.10 H (1.4-6.5) K/uL Lymph # (Auto) 0.33 L (1.2-3.4) K/uL Lamar # (Auto) 0.39 (0.24-0.82) K/uL Eos # (Auto) 0.05 (0-0.50) K/uL Baso # (Auto) 0.03 (0-0.2) K/uL Immature Gran # (Auto) 0.26 H (0.00-0.02) K/uL Anisocytosis Present Echinocytes 1+ Sodium (136-145) mmol/L Potassium (3.5-5.1) mmol/L Chloride (98-107) mmol/L Carbon Dioxide (21-32) mmol/L Anion Gap (3-11) BUN (6-23) mg/dl Creatinine (0.6-1.4) mg/dl Est Cr Clr Drug Dosing ml/min Est GFR ( Amer) ml/min Est GFR (Non-Af Amer) ml/min BUN/Creatinine Ratio (10-20) Glucose (70-99(Fasting)) mg/dl POC Glucose 161 H 102 H (70-99) mg/dl Calcium (8.5-10.1) mg/dl Magnesium (1.7-2.4) mg/dl 09/11/22 09/10/22 09/10/22 Range/Units 06:46 20:18 16:44 WBC (4.8-10.8) K/ul RBC (4.63-6.08) M/uL Hgb (14.0-18.0) g/dl Hct (40.1-51.0) % MCV (80.0-100.0) fL MCH (25.0-34.0) pg MCHC (32.0-36.0) g/dL RDW Std Deviation (36.4-46.3) fL RDW Coeff of Raul (11.5-14.5) % Plt Count (130-400) K/uL MPV (9.4-12.4) fL Immature Gran % (Auto) % Neut % (Auto) % Lymph % (Auto) % Lamar % (Auto) % Eos % (Auto) % Baso % (Auto) % Neut # (Auto) (1.4-6.5) K/uL Lymph # (Auto) (1.2-3.4) K/uL Lamar # (Auto) (0.24-0.82) K/uL Eos # (Auto) (0-0.50) K/uL Baso # (Auto) (0-0.2) K/uL Immature Gran # (Auto) (0.00-0.02) K/uL Anisocytosis Echinocytes Sodium 146 H (136-145) mmol/L Potassium 3.1 L (3.5-5.1) mmol/L Chloride 106 (98-107) mmol/L Carbon Dioxide 33 H (21-32) mmol/L Anion Gap 7 (3-11) BUN 6 (6-23) mg/dl Creatinine 0.98 (0.6-1.4) mg/dl Est Cr Clr Drug Dosing 72.1 ml/min Est GFR ( Amer) 91.4 ml/min Est GFR (Non-Af Amer) 78.9 ml/min BUN/Creatinine Ratio 6.1 L (10-20) Glucose 100 H (70-99(Fasting)) mg/dl POC Glucose 107 H 76 (70-99) mg/dl Calcium 9.0 (8.5-10.1) mg/dl Magnesium 1.9 (1.7-2.4) mg/dl PG Care Time/CCT Total # of Minutes Spent Total Time Spent with Patient: Total time spent is greater than 50% in coordination of care (as documented) at patient's floor/unit and/or counseling patient: Coding Level of Care Code 92697 Subseq Hosp Care Lvl 2 Diagnoses Sepsis A41.9 MP (acute kidney injury) N17.9 COPD (chronic obstructive pulmonary disease) with chronic bronchitis J44.9 Adrenal insufficiency E27.40 Otitis externa H60.90 Hypoglycemia E16.2 Dysphagia R13.10 CKD (chronic kidney disease) stage 2, GFR 60-89 ml/min N18.2 Benign prostate hyperplasia N40.0 Elevated troponin R77.8 Increased anion gap metabolic acidosis E87.2 Recurrent left pleural effusion J90 Hypokalemia E87.6 History of stroke Z86.73 Cellulitis, leg L03.119 Hypernatremia E87.0
[2022-02-14] MEDS: CARBOHYDRATES FOR HYPOGLYCEMIA PO PRN ×2 (17:19→17:41)
[2022-02-14] MEDS: QUEtiapine FUMARATE 25 MG TABLET PO SCH (21:18)
[2022-02-14] MEDS: MELATONIN 3 MG TAB PO SCH (21:18)
[2022-02-14] MEDS ORDERED: ACETAMINOPHEN 325 MG TAB PO PRN (23:47)
[2022-02-15] MEDS: ALBUTEROL 0.083% NEBU SOLN 3 ML VIAL NEB SCH ×4 (00:03→19:57)
[2022-02-15] MEDS: PIPERACILLIN/TAZOBACTAM 4.5 GM in DEXTROSE 5% 100 ML IV SCH ×3 (02:47→18:23)
[2022-02-15] MEDS: HEPARIN SOD 5,000 UNIT/0.5 ML VIAL SQ SCH ×3 (06:17→21:13)
[2022-02-15 06:24] LABS: Basophils # (auto) 0.05 K/uL (0-0.2); Basophils % (auto) 0.4 %; Eosinophils # (auto) 0.67 K/uL (0-0.50); Eosinophils % (auto) 5.1 %; Hematocrit (blood only) 35.8 % (40.1-51.0); Hemoglobin 11.6 g/dl (14.0-18.0); Immature Granulocytes # (auto) 0.16 K/uL (0.00-0.02); Immature Granulocytes % (auto) 1.2 %; Lymphocytes # (auto) 0.58 K/uL (1.2-3.4); Lymphocytes % (auto) 4.4 %; Mean Corpuscular Hemoglobin 26.2 pg (25.0-34.0); Mean Corpuscular Hgb Conc 32.4 g/dL (32.0-36.0); Mean Platelet Volume 10.4 fL (9.4-12.4); Monocytes # (auto) 0.45 K/uL (0.24-0.82); Monocytes % (auto) 3.4 %; Neutrophils # (auto) 11.28 K/uL (1.4-6.5); Neutrophils % (auto) 85.5 %; Nucleated RBC # (auto) 0.02 K/uL (0-0); Nucleated RBC % (auto) 0.2 %; Platelet Count 257 K/uL (130-400); RDW Coefficient of Variation 20.6 % (11.5-14.5); RDW Standard Deviation 60.3 fL (36.4-46.3); Red Blood Count 4.42 M/uL (4.63-6.08); White Blood Count 13.19 K/ul (4.8-10.8)
[2022-02-15 06:48] LABS: BUN Creatinine Ratio 8.8 (10-20); Calcium 8.8 mg/dl (8.5-10.1); Creatinine Clr Calc Pharmacy 77.7 ml/min; Est GFR (Non-African American) 86.3 ml/min; Magnesium 1.9 mg/dl (1.7-2.4); Potassium 2.8 mmol/L (3.5-5.1)
[2022-02-15 06:59] LABS: Ovalocytes 1+; Polychromasia 1+
--- NOTE | 2022-02-15 07:56 | Consultation Report ---
DATE OF SERVICE: 02/14/2022 GASTROENTEROLOGY CONSULTATION RACE: . ATTENDING PHYSICIAN: Dr. Medina. CONSULTING PHYSICIAN: Dr. Blake. REASON FOR CONSULTATION: Vomiting, reflux and needs esophageal dilation. HISTORY OF PRESENT ILLNESS: Roberth Luther is a 67-year-old male with an extensive past medical history that includes COPD, chronic kidney disease, bipolar disorder, lung cancer and dyspha rocio, who most recently underwent an upper endoscopy on 12/17/[address] Randolph, which showed a greg ign-appearing esophageal stenosis, which was dilated up to 15 mm. The patient was recommended to ret urn in 6 weeks. However, he subsequently presented to the hospital prior to that time. He did prese nt to the hospital on 02/10/2022 and was noted to be hypotensive, hypoglycemic, hyperthermic with an elevated white blood cell count and it was felt that he was septic, likely secondary to a pulmonary s ource. He did undergo a chest x-ray, which did show right infrahilar opacity favoring scarring and h e was treated with Zosyn and doxycycline therapy, was treated with IV fluids and did have an improvem ent in his symptoms, though was not able to tolerate p.o. intake with persistent vomiting and regurgi tation of food. He underwent a video swallow study at the bedside on 02/12/2022 by Candy Prescott, who recommended that he have aspiration precautions, be given a pureed diet and follow up with GI. At the time that I saw the patient, he continued to complain of dysphagia. He states that he is on an acid supervisor money room at home and does take this. He denies any fevers, chills, nausea, vomiting, hematemesis , melena or hematochezia. Denies any further complaints. PAST MEDICAL HISTORY: Significant and includes history of CVA, hypokalemia, sepsis, acute kidney inj ury, tongue neoplasm, pulmonary nodule, peripheral neuropathy, esophagitis, chronic rhinitis, chronic kidney disease stage II, chronic hypoxemic respiratory failure, anemia, history of pleural effusion, esophageal stricture, adult failure to thrive, memory loss, hypoxia, dysphagia, adrenal insufficienc y, hypertension, COPD, peripheral artery disease, history of lung cancer, hepatic steatosis, hiatal h ernia, bipolar disorder. PAST SURGICAL HISTORY: Includes a history of foot surgery, EGD with dilation in October, November and December o f 2021. Left lower lobectomy of the lung, peripheral artery angioplasty with stent placement, fem-fe m bypass, third molar extraction. ALLERGIES: CIPRO, VANCOMYCIN, BACTRIM. CURRENT MEDICATIONS: Include albuterol 2.5 mg via nebulizer every 6 hours as needed, aspirin 81 mg p .o. q.a.m., Lipitor 40 mg p.o. q.a.m., Wellbutrin 100 mg p.o. q.a.m., Plavix 75 mg p.o. q.a.m., folic acid 1 mg p.o. q.a.m., Neurontin 300 mg p.o. t.i.d., heparin 5000 units subcutaneously q.8, insulin sliding scale, melatonin 6 mg p.o. at bedtime, midodrine 5 mg p.o. t.i.d., Protonix 40 mg p.o. q.a.m. , Zosyn 4.5 grams IV q.8, MiraLax 17 grams p.o. t.i.d., Seroquel 25 mg p.o. at bedtime, senna 8.6 mg p.o. q.a.m., Flomax 0.4 mg p.o. q.a.m., vancomycin 1500 mg IV q.24 hours. SOCIAL HISTORY: He has a [id number] history of tobacco use. Does drink alcohol. He is . FAMILY HISTORY: Negative for GI malignancy or inflammatory bowel disease. REVIEW OF SYSTEMS: Negative x12 system review other than pertinent positives listed in the HPI. PHYSICAL EXAMINATION: VITAL SIGNS: Include a temperature of 36.3, pulse 74, respirations 18, blood pressure 162/87, pulse ox 91% on room air. GENERAL: He is awake and cooperative, odd affect, in no acute distress. HEAD: Normocephalic, atraumatic. CHEST: Decreased breath sounds in bilateral bases. CARDIOVASCULAR: Regular rate and rhythm. ABDOMEN: Soft, nontender, nondistended, positive bowel sounds. EXTREMITIES: No clubbing or cyanosis. No edema noted. LABORATORY STUDIES AND RADIOGRAPHIC STUDIES: Reviewed in the HPI. IMPRESSION AND PLAN: A 67-year-old male with what sounds like oropharyngeal as well as eso phageal dysphagia. I believe that the patient most likely has a component of both esophageal dysmoti lity as well as an esophageal stricture. I will defer to Dr. Randolph on this week to perform an upper endoscopy with dilation as he has seen this patient for this issue previously. I would recommend co ntinuing him on his current pantoprazole 40 mg p.o. q.a.m. I would recommend following speech recomm endations for feedings with aspiration precautions and he is currently on clear liquids. If he has an y worsening symptoms, please contact us directly. I will follow his clinical course and make further recommendations as needed. Once again, thanks for allowing me to participate in the care of this patient. If you have any furth er questions, please do not hesitate in contacting me. Job ID: [id number]
[2022-02-15] MEDS: CARBOHYDRATES FOR HYPOGLYCEMIA PO PRN (08:13)
[2022-02-15] MEDS: INSULIN ASPART PER UNIT SC SCH ×4 (08:14→20:59)
[2022-02-15] MEDS: SENNA 8.6 MG TAB PO SCH (08:20)
[2022-02-15] MEDS: GABAPENTIN 300 MG CAP PO SCH ×3 (08:20→21:12)
[2022-02-15] MEDS: TAMSULOSIN HCL 0.4 MG CAP PO SCH (08:21)
[2022-02-15] MEDS: MIDODRINE HCL 2.5 MG TAB PO SCH ×3 (08:21→15:31)
[2022-02-15] MEDS: POLYETHYLENE (MIRALAX) 17 GM PACK PO SCH ×3 (08:22→21:12)
[2022-02-15] MEDS: buPROPion HCl 100 MG TABLET PO SCH (08:22)
[2022-02-15] MEDS: FOLIC ACID 1 MG TAB PO SCH (08:22)
[2022-02-15] MEDS: ATORVASTATIN 40 MG TAB PO SCH (08:23)
[2022-02-15] MEDS: ASPIRIN 81 MG CHEW PO SCH (08:23)
[2022-02-15] MEDS: PANTOprazole 40 MG TAB PO SCH ×3 (08:23→21:12)
[2022-02-15] MEDS: CLOPIDOGREL BISULFATE 75 MG TAB PO SCH (08:24)
[2022-02-15] MEDS: FLUTICASONE FUROATE 100MCG 14 PUFFS/INHALER INH SCH (08:24)
[2022-02-15] MEDS: HYDROCORTISONE 10 MG TAB PO SCH (08:25)
[2022-02-15] MEDS: UMECLIDINIUM/VILANTEROL 62.5/25MCG 7 PUFFS/INHALER INH SCH (08:26)
[2022-02-15] MEDS: diphenhydrAMINE 50 MG/ML VIAL IV SCH (08:26)
[2022-02-15] MEDS: VANCOMYCIN HCL 1,500 MG in SODIUM CHLORIDE 0.9% 500 ML IV SCH (08:44)
--- NOTE | 2022-02-15 09:00 | Communication Note ---
Date of Service: February 15, 2022 Patient is a 67 yo male with ongoing dysphagia issues. Will plan to proceed with EGD on 02/16/[address] Randolph. In the interim, continue Protonix (will do 40 mg BID), and follow RN TELEHEALTH recommendations.
[2022-02-15] MEDS ORDERED: POTASSIUM CHLORIDE 20 MEQ/15 ML UDC PO ONE (10:30)
[2022-02-15] MEDS ORDERED: DEXTROSE 5% 1,000 ML IV SCH (10:30)
[2022-02-15] MEDS ORDERED: POTASSIUM CHLORIDE 20 MEQ/15 ML UDC PO STA (13:15)
--- NOTE | 2022-02-15 13:18 | Hospitalist Progress Note ---
Date of Service February 15, 2022 Assessment & Plan (1) Sepsis: Plan: Patient presents hypotensive, hypoglycemic, febrile, with elevated WBC, Lactate, and PCT. Likely pulmonary source at this time due to ongoing, frequent aspiration Has long history of aspiration due to significant esophageal stricture with severe reflux UA neg for infection COVID neg BCxs remain NGTD Sputum cx heavy normal sarah MRSA swab positive With evidence of organ dysfunction - lungs, MP, elevated HScTNI, INR 1.2 on admission now improved Much improved after IVF resuscitation and IV abx, stress dose steroid--> MP resolved, trop trended downward, lactate normalized, BPs normalized, leukocytosis was improving but now back up due to steroids -remains afebrile, mentation improved back to his baseline Does have proven aspiration on video swallow here mostly due to esophageal dysf unction causing reflux and with mild-moderate oropharyngeal dysphagia This is a recurrent issue for him requiring esophageal dilatations, however I had concern for new CVA or brain mets less likely (h/o lung CA)--> checked brain MRI-negative for new CVA -continue Zosyn, Vanco for broad spectrum for severe sepsis and PULM source-plan to de-escalate to po antibiotics on 02/16 -have since discontinued IV Hydrocortisone and reverted to home po HC dosing -follow CBC,BMP in AM -aspiration precautions, needs Speech Tx as an outpt -Appreciate GI consult-plan for EGD for esophageal dilatation-on Tuesday -if esophageal dilatations not effective at helping improve reflux, I wonder if a J-tube would be a better option for him given his frequent overt aspiration and severe esophageal reflux/dysmotility -await further GI opinion (2) MP (acute kidney injury): Plan: acoustic engineer 1.8 on arrival, 2/2 ATN from sepsis now improved to 0.91 ? if having post-ATN diuresis--> puttng out a lot o furine more than expected and Na+ continue to be increasing Consult Nephrology for opinion on if developing DI? -start D5W to keep up with free water losses -check BMP again this evening and adjust D5W as needed -may need desmopressin? (3) COPD (chronic obstructive pulmonary disease) with chronic bronchitis: Plan: with some mild wheezing here now improving -continue Albuterol and Trelegy as well as home oxygen - Continue with albuterol nebulizers scheduled -dcd cough assist as he vomits every time he tries to use it (4) Adrenal insufficiency: Plan: received IV HC for stress dose steroids initially , now on po home dose HC - continue midodrine tid - follow -has outpt consult with Endocrine coming up (5) Hypoglycemia: Plan: resolved with stress dose steroids, but now has returned due to poor po intake and vomiting starting D5W as above for hypernatremia (6) Dysphagia: Plan: as above, with aspiration on video swallow appreciate Speech recommendations (7) CKD (chronic kidney disease) stage 2, GFR 60-89 ml/min: Plan: ADELA II on CKD II baseline SCHOOL YEAR NANNY 0.9-and acoustic engineer 1.89 on admission - Swartz placed on arrival draining clear yellow urine -continue Swartz for now due to massive amounts of urine output (8) Benign prostate hyperplasia: Plan: Hold Avodart ,continue Tamsulosin (9) Elevated troponin: Plan: likely demand secondary to hypoxia and sepsis with MP troponin trended back downward no chest pain, no acute ischemic changes on ECG (10) Increased anion gap metabolic acidosis: Plan: Likely secondary to lactate and elevated SCHO[employer] YEAR NANNY 7.29 with normal CO2 and HCo3 now normalized (11) Recurrent left pleural effusion: Plan: s/p thoracentesis last admission with trapped lung present PULM did not recommend further thoracentesis (12) Hypokalemia: Plan: severe today, worsening with ongoing massive urine output/autodiuresis replace with po KCl elixir 40 meq bid follow BMP, Mag in AM and BMP this evening (13) History of stroke: Plan: continue ASA, Plavix uses wheelchair at baseline, does not ambulate has known bilat ICA occlusions with collaterals filling the COW with right facial droop perhaps worsening as above since last admission--> checked brain MRI and no new stroke since 03/2021 MRI PT/PT consults placed (14) Cellulitis, leg: Plan: noted on 02/13 to have erythema and warmth spreading around a scab on right parr- persists but not worsening, slightly improved on right foot continue on Zosyn, Vanco as above for PNA which would also cover for cellulitis (15) Hypernatremia: Plan: as above, Na+ up further to 148 from copious UOP from post-ATN diuresis? vs DI? starting D5W and/or consider desmopressin Consulting Nephro as above follow BMP (16) Otitis externa: Plan: Improved as no drainage and less painful per patient- non tender to mastoid bone previous culture- 01/12/22 Org 1 = Staph aureus MRSA Org 2 = Stenotrophomonas maltophilia Org 3 = Staphylococcus aureus - consider imaging if WBC not responsive or continue source identification -Currently, he is not being treated for the Stenotrophomonas as he is allergic to FQ and Bactrim. This bug is resistant to ceftazadime. Only other options are minocycline, tigecycline -doubt this is the source of his sepsis so will not treat at this time but one option would be to try topical Cipro otic and watch for localized alergic reaction dc Tobradex otic as he has been on this now for many weeks Plan DVT proph-heparin SQ Dispo-continued stay on tele Admission and Anticipated Discharge Date Admission Date: February 10, 2022 Subjective Pt still vomiting almost everything he swallows, denies nausea. No CP, SOB. Is moving bowels. Physical Exam Constitutional: WD/WN, vitals as above Eyes: + anicteric sclerae ENMT: Ears: + external ear abnormality (left ear mild crusting,no erythema,no drainage) Neck: trachea midline, no thyromegaly Respiratory: + cough; not tachypneic Auscultation: + diminished lung sounds (bibasilar), + rhonchi (dupper airways) and + wheezes (bilat) Cardiovascular: RRR, no murmur, no edema Chest (Breasts): Chest: normal inspection of chest Gastrointestinal (Abdomen): normal bowel sounds, soft, nontender, no hepatosplenomegaly Musculoskeletal: Extremities: extremities normal to inspection; no cyanosis and no clubbing Skin: no rashes, warm and dry + erythema (scabs right parr with surrounding erythema,warmth down to distal tibia) Neurologic: moves all extremities and awake; no focal motor deficits Motor/Sensory: no tremor Cranial Nerves: + abnormal facial strength (+right droop of face) Psychiatric: A+Ox3, euthymic affect Lymphatic: no lymphedema Results & Data Results & Data ([facility]) Vital Signs (Past 12 Hours) Vital Signs Temp Pulse Pulse Resp BP Pulse Ox O2 Del Method 02/15/22 12:56 77 19 90 Room Air 02/15/22 12:49 36.6 C 67 16 103/70 97 Nasal Cannula 02/15/22 12:49 68 02/15/22 12:49 Nasal Cannula 02/15/22 07:30 36.3 C L 69 18 172/89 H 95 Room Air 02/15/22 07:27 69 18 90 Room Air 02/15/22 07:03 36.3 C L 69 18 172/89 H 95 Room Air 02/15/22 03:01 36.3 C L 74 18 149/79 H 90 Room Air 02/15/22 02:00 74 O2 Flow Rate 02/15/22 12:56 02/15/22 12:49 2 02/15/22 12:49 02/15/22 12:49 2 02/15/22 07:30 02/15/22 07:27 02/15/22 07:03 02/15/22 03:01 02/15/22 02:00 Laboratory Results 02/15/22 02/15/22 02/15/22 Range/Units 12:02 08:31 08:09 WBC (4.8-10.8) K/ul RBC (4.63-6.08) M/uL Hgb (14.0-18.0) g/dl Hct (40.1-51.0) % MCV (80.0-100.0) fL MCH (25.0-34.0) pg MCHC (32.0-36.0) g/dL RDW Std Deviation (36.4-46.3) fL RDW Coeff of Raul (11.5-14.5) % Plt Count (130-400) K/uL MPV (9.4-12.4) fL Immature Gran % (Auto) % Neut % (Auto) % Lymph % (Auto) % [place] % (Auto) % Eos % (Auto) % Baso % (Auto) % Neut # (Auto) (1.4-6.5) K/uL Lymph # (Auto) (1.2-3.4) K/uL [place] # (Auto) (0.24-0.82) K/uL Eos # (Auto) (0-0.50) K/uL Baso # (Auto) (0-0.2) K/uL Immature Gran # (Auto) (0.00-0.02) K/uL Absolute Nucleated RBC (0-0) K/uL Nucleated RBC % (auto) % Polychromasia Ovalocytes Sodium (136-145) mmol/L Potassium (3.5-5.1) mmol/L Chloride (98-107) mmol/L Carbon Dioxide (21-32) mmol/L Anion Gap (3-11) BUN (6-23) mg/dl Creatinine (0.6-1.4) mg/dl Est Cr Clr Drug Dosing ml/min Est GFR ( Amer) ml/min Est GFR (Non-Af Amer) ml/min BUN/Creatinine Ratio (10-20) Glucose (70-99(Fasting)) mg/dl POC Glucose 76 78 66 L* (70-99) mg/dl Calcium (8.5-10.1) mg/dl Magnesium (1.7-2.4) mg/dl Random Vancomycin (10-20) mcg/ml 02/15/22 02/15/22 02/15/22 Range/Units 08:06 05:33 05:33 WBC 13.19 H (4.8-10.8) K/ul RBC 4.42 L (4.63-6.08) M/uL Hgb 11.6 L (14.0-18.0) g/dl Hct 35.8 L (40.1-51.0) % MCV 81.0 (80.0-100.0) fL MCH 26.2 (25.0-34.0) pg MCHC 32.4 (32.0-36.0) g/dL RDW Std Deviation 60.3 H (36.4-46.3) fL RDW Coeff of Raul 20.6 H (11.5-14.5) % Plt Count 257 (130-400) K/uL MPV 10.4 (9.4-12.4) fL Immature Gran % (Auto) 1.2 % Neut % (Auto) 85.5 % Lymph % (Auto) 4.4 % [place] % (Auto) 3.4 % Eos % (Auto) 5.1 % Baso % (Auto) 0.4 % Neut # (Auto) 11.28 H (1.4-6.5) K/uL Lymph # (Auto) 0.58 L (1.2-3.4) K/uL [place] # (Auto) 0.45 (0.24-0.82) K/uL Eos # (Auto) 0.67 H (0-0.50) K/uL Baso # (Auto) 0.05 (0-0.2) K/uL Immature Gran # (Auto) 0.16 H (0.00-0.02) K/uL Absolute Nucleated RBC 0.02 H (0-0) K/uL Nucleated RBC % (auto) 0.2 % Polychromasia 1+ Ovalocytes 1+ Sodium (136-145) mmol/L Potassium (3.5-5.1) mmol/L Chloride (98-107) mmol/L Carbon Dioxide (21-32) mmol/L Anion Gap (3-11) BUN (6-23) mg/dl Creatinine (0.6-1.4) mg/dl Est Cr Clr Drug Dosing ml/min Est GFR ( Amer) ml/min Est GFR (Non-Af Amer) ml/min BUN/Creatinine Ratio (10-20) Glucose (70-99(Fasting)) mg/dl POC Glucose 69 L* (70-99) mg/dl Calcium (8.5-10.1) mg/dl Magnesium (1.7-2.4) mg/dl Random Vancomycin 15.9 (10-20) mcg/ml 02/15/22 02/15/22 02/14/22 Range/Units 05:33 03:27 20:05 WBC (4.8-10.8) K/ul RBC (4.63-6.08) M/uL Hgb (14.0-18.0) g/dl Hct (40.1-51.0) % MCV (80.0-100.0) fL MCH (25.0-34.0) pg MCHC (32.0-36.0) g/dL RDW Std Deviation (36.4-46.3) fL RDW Coeff of Raul (11.5-14.5) % Plt Count (130-400) K/uL MPV (9.4-12.4) fL Immature Gran % (Auto) % Neut % (Auto) % Lymph % (Auto) % [place] % (Auto) % Eos % (Auto) % Baso % (Auto) % Neut # (Auto) (1.4-6.5) K/uL Lymph # (Auto) (1.2-3.4) K/uL [place] # (Auto) (0.24-0.82) K/uL Eos # (Auto) (0-0.50) K/uL Baso # (Auto) (0-0.2) K/uL Immature Gran # (Auto) (0.00-0.02) K/uL Absolute Nucleated RBC (0-0) K/uL Nucleated RBC % (auto) % Polychromasia Ovalocytes Sodium 148 H (136-145) mmol/L Potassium 2.8 L (3.5-5.1) mmol/L Chloride 105 (98-107) mmol/L Carbon Dioxide 37 H (21-32) mmol/L Anion Gap 6 (3-11) BUN 8 (6-23) mg/dl Creatinine 0.91 (0.6-1.4) mg/dl Est Cr Clr Drug Dosing 77.7 ml/min Est GFR ( Amer) 100.0 ml/min Est GFR (Non-Af Amer) 86.3 ml/min BUN/Creatinine Ratio 8.8 L (10-20) Glucose 74 (70-99(Fasting)) mg/dl POC Glucose 154 H 88 (70-99) mg/dl Calcium 8.8 (8.5-10.1) mg/dl Magnesium 1.9 (1.7-2.4) mg/dl Random Vancomycin (10-20) mcg/ml 02/14/22 02/14/22 02/14/22 Range/Units 18:00 17:38 17:16 WBC (4.8-10.8) K/ul RBC (4.63-6.08) M/uL Hgb (14.0-18.0) g/dl Hct (40.1-51.0) % MCV (80.0-100.0) fL MCH (25.0-34.0) pg MCHC (32.0-36.0) g/dL RDW Std Deviation (36.4-46.3) fL RDW Coeff of Raul (11.5-14.5) % Plt Count (130-400) K/uL MPV (9.4-12.4) fL Immature Gran % (Auto) % Neut % (Auto) % Lymph % (Auto) % [place] % (Auto) % Eos % (Auto) % Baso % (Auto) % Neut # (Auto) (1.4-6.5) K/uL Lymph # (Auto) (1.2-3.4) K/uL [place] # (Auto) (0.24-0.82) K/uL Eos # (Auto) (0-0.50) K/uL Baso # (Auto) (0-0.2) K/uL Immature Gran # (Auto) (0.00-0.02) K/uL Absolute Nucleated RBC (0-0) K/uL Nucleated RBC % (auto) % Polychromasia Ovalocytes Sodium (136-145) mmol/L Potassium (3.5-5.1) mmol/L Chloride (98-107) mmol/L Carbon Dioxide (21-32) mmol/L Anion Gap (3-11) BUN (6-23) mg/dl Creatinine (0.6-1.4) mg/dl Est Cr Clr Drug Dosing ml/min Est GFR ( Amer) ml/min Est GFR (Non-Af Amer) ml/min BUN/Creatinine Ratio (10-20) Glucose (70-99(Fasting)) mg/dl POC Glucose 71 53 L* 54 L* (70-99) mg/dl Calcium (8.5-10.1) mg/dl Magnesium (1.7-2.4) mg/dl Random Vancomycin (10-20) mcg/ml 02/14/22 Range/Units 17:15 WBC (4.8-10.8) K/ul RBC (4.63-6.08) M/uL Hgb (14.0-18.0) g/dl Hct (40.1-51.0) % MCV (80.0-100.0) fL MCH (25.0-34.0) pg MCHC (32.0-36.0) g/dL RDW Std Deviation (36.4-46.3) fL RDW Coeff of Raul (11.5-14.5) % Plt Count (130-400) K/uL MPV (9.4-12.4) fL Immature Gran % (Auto) % Neut % (Auto) % Lymph % (Auto) % [place] % (Auto) % Eos % (Auto) % Baso % (Auto) % Neut # (Auto) (1.4-6.5) K/uL Lymph # (Auto) (1.2-3.4) K/uL [place] # (Auto) (0.24-0.82) K/uL Eos # (Auto) (0-0.50) K/uL Baso # (Auto) (0-0.2) K/uL Immature Gran # (Auto) (0.00-0.02) K/uL Absolute Nucleated RBC (0-0) K/uL Nucleated RBC % (auto) % Polychromasia Ovalocytes Sodium (136-145) mmol/L Potassium (3.5-5.1) mmol/L Chloride (98-107) mmol/L Carbon Dioxide (21-32) mmol/L Anion Gap (3-11) BUN (6-23) mg/dl Creatinine (0.6-1.4) mg/dl Est Cr Clr Drug Dosing ml/min Est GFR ( Amer) ml/min Est GFR (Non-Af Amer) ml/min BUN/Creatinine Ratio (10-20) Glucose (70-99(Fasting)) mg/dl POC Glucose 53 L* (70-99) mg/dl Calcium (8.5-10.1) mg/dl Magnesium (1.7-2.4) mg/dl Random Vancomycin (10-20) mcg/ml PG Care Time/CCT Total # of Minutes Spent Total Time Spent with Patient: Total time spent is greater than 50% in coordination of care (as documented) at patient's floor/unit and/or counseling patient: Coding Level of Care Code 92914 Subseq Hosp Care Lvl 3 Diagnoses Sepsis A41.9 MP (acute kidney injury) N17.9 COPD (chronic obstructive pulmonary disease) with chronic bronchitis J44.9 Adrenal insufficiency E27.40 Hypoglycemia E16.2 Dysphagia R13.10 CKD (chronic kidney disease) stage 2, GFR 60-89 ml/min N18.2 Benign prostate hyperplasia N40.0 Elevated troponin R77.8 Increased anion gap metabolic acidosis E87.2 Recurrent left pleural effusion J90 Hypokalemia E87.6 History of stroke Z86.73 Cellulitis, leg L03.119 Hypernatremia E87.0 Otitis externa H60.90
--- NOTE | 2022-02-15 14:06 | Pharmacy Report ---
Pharmacy PK ABX Note - Date of Service February 15, 2022 - Assessment and Plan Assessment 67 year old M receiving vancomycin and zosyn for treatment of sepsis due to presumed pulmonary source. MRSA swab positive. Blood cultures with no growth to date. Sputum cx grew heavy normal sarah. Renal function back to baseline. Day #6 of abx therapy. Plan Vancomycin * Current regimen: 1500 mg IV every 24 hours * Random level obtained 02/15/22 resulted as 15.9 mcg/mL. This is predicted to achieve target AUC/GLENNA of 400-600 mg/L.hr * Predicted AUC at steady state: 455mg/L.hr * Continue 1500 mg IV every 24 hours * Will obtain another level ~48h if vancomycin continued, or sooner if clinically indicated. Pharmacy will continue to follow and will adjust dose/frequency as necessary. Thank you. Pharmacy has transitioned to AUC monitoring for vancomycin. AUC/GLENNA is the preferred PK/PD target and is associated with decreased risk of nephrotoxicity compared to traditional trough targets.
[2022-02-15] MEDS ORDERED: HYDROCORTISONE 10 MG TAB PO SCH (15:00)
[2022-02-15] MEDS ORDERED: DESMOPRESSIN ACETATE 4 MCG in SODIUM CHLORIDE 0.9% 50 ML IV ONE (16:28)
--- NOTE | 2022-02-15 16:46 | Nephrology Consultation ---
Date of Consultation February 15, 2022 Assessment & Plan (1) Hypernatremia: * New onset polyuria w/ hypernatremia. Uosm is inappropriately low c/w water diuresis. This could represent post ATN diuresis or DI. Brain MRI this hospitalization was negative for new ischemic injury. Will stop IVF, administer 4 mcg DDAVP IV x1, and monitor UO and Uosm. Repeat PRP ordered for am. * h/o bipolar disorder and longstanding lithium therapy. Off lithium since 2016. No prior h/o MP, hypernatremia related to dehydration to suggest NDI (2) MP (acute kidney injury): * Probable ATN related to sepsis - resolved (3) Sepsis: * Recurrent aspiration pneumonia * Remains on broad spectrum antibiotics History of Present Illness Reason for Consultation: Polyuria, hypernatremia Attending Physician: Kim Medina MD History of Present Illness Mr. Luther is a 67 year old white male who is seen at the request of Dr. Medina for evaluation of polyuria and hypernatremia. Medical records in the EMR were reviewed today and are summarized as follows: Mr. Luther has bipolar disorder. He had been on lithium therapy for approximately 20 years. [place] was stopped in 2017. He denies polyuria related to his [place] therapy and has not been hospitalized due to dehydration in the past. Mr. Luther does report a longstanding h/o tobacco use, COPD, NSCLC, PAD, HTN and BPH. Mr. Luther was admitted to [facility] 02/10/22 with MS changes. He was noted to have sepsis related to recurrent aspiration pneumonitis and MP (Cr 1.0 --> 1.89). His condition improved following IVF, antibiotics and stress dose steroids. MRI of the brain was negative for acute infarct. Cr returned to baseline 0.91. Over the course of his hospitalization Mr. Luther received 15 L IVF. Over the last 48 hours he has been polyuric and has diuresed nearly 6 L each day. He is currently net negative 8.6 L and has developed mild hypernatremia. Uosm is inappropriately low at 158 mOsm/kg. Allergies Allergy/AdvReac Type Severity Reaction Status Date / Time ciprofloxacin Allergy Mild RASH Verified 02/02/22 11:29 vancomycin Allergy Mild RASH Verified 02/02/22 11:29 sulfamethoxazole Allergy Unknown Unknown Verified 02/02/22 11:29 [From Bactrim] trimethoprim [From Bactrim] Allergy Unknown Unknown Verified 02/02/22 11:29 Home Medications Medication Instructions Recorded Confirmed Type miscellaneous medical supply #1 ea 08/07/21 01/11/22 Rx albuterol sulfate 90 mcg/actuation 2 puff inhalation QID PRN 08/13/21 02/02/22 Rx aerosol inhaler (Ventolin HFA) shortness of breath or wheezing #18 grams melatonin 5 mg tablet 5 mg PO HS 08/13/21 02/02/22 History clopidogrel 75 mg tablet 75 mg PO QAM 30 days #90 tabs 09/04/21 02/02/22 Rx aspirin 81 mg chewable tablet 81 mg PO QAM 10/01/21 02/02/22 History dutasteride 0.5 mg capsule 0.5 mg PO QAM 10/01/21 02/02/22 History (Avodart) fluticasone fur. 100 mcg-umeclid 1 inh inhalation QAM 10/01/21 02/02/22 History 62.5 mcg-vilant 25 mcg inhalat.powder (Trelegy Ellipta) folic acid 1 mg tablet 1,000 mcg PO QAM 10/01/21 02/02/22 History tamsulosin 0.4 mg capsule 0.4 mg PO QAM 10/01/21 02/02/22 History gabapentin 300 mg capsule 300 mg PO TID 10/22/21 02/02/22 History hydrocortisone 10 mg tablet See Rx Instructions .Route 11/04/21 02/02/22 Rx (Cortef) .COMPLEX #45 tabs polyethylene glycol 3350 17 gram 17 g PO TID #21 ea 11/04/21 02/02/22 Rx oral powder packet (Miralax) quetiapine 25 mg tablet 25 mg PO HS #0 tabs 11/04/21 02/02/22 Rx sennosides 8.6 mg tablet (Senokot) 8.6 mg PO QAM #7 tabs 11/04/21 02/02/22 Rx lansoprazole 30 mg capsule,delayed 30 mg PO QAM 01/11/22 02/02/22 History release amoxicillin 875 mg-potassium 1 tab PO BID #7 tabs 01/14/22 02/02/22 Rx clavulanate 125 mg tablet midodrine 5 mg tablet 5 mg PO TID #90 tabs 01/14/22 02/02/22 Rx tobramycin 0.3 %-dexamethasone 0.1 1 drp ophthalmic (eye) QID #2.5 mL 01/21/22 02/02/22 Rx % eye drops,suspension (TobraDex) atorvastatin 40 mg tablet 40 mg PO QAM 90 days #90 tabs 01/29/22 02/02/22 Rx bupropion HCl 100 mg tablet 100 mg PO QAM #90 tabs 02/09/22 Rx Patient History Medical History Ataxic gait Bacteremia due to methicillin resistant Staphylococcus aureus hx? patient unsure of details Benign prostate hyperplasia Bilateral carotid artery occlusion Bipolar disorder Chlamydial proctitis hx 2018? Confusion poor historian COPD (chronic obstructive pulmonary disease) with chronic bronchitis Esophageal stenosis GERD (gastroesophageal reflux disease) Hepatic steatosis Hiatal hernia History of COVID-19 07/2020 ([place] AND FEVER) HOSPITALIZED AT [facility] History of esophageal dilatation History of lung cancer (01/2016) 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 History of stroke Hospitalization within last 30 days treated at [facility] for several days -- patient unsure of why he was here? HTN (hypertension) Hypertension Medical marijuana use On anticoagulant therapy plavix daily On home oxygen therapy 3L n/c prn for SOB Osteomyelitis Peripheral arterial disease Peripheral neuropathy Pneumonia possible recent pneumonia? patient unsure. Poor historian Recurrent left pleural effusion s/p thoracentesis August 2018 Restless leg syndrome Schizoaffective disorder Surgical History H/O foot surgery LEFT HEEL REMOVAL FROM PRESSURE ULCER History of bronchoscopy (01/2016) History of colonoscopy History of esophagogastroduodenoscopy (EGD) with dilation (last12/2021, 11/23/21, 10/2021) History of herniorrhaphy History of lobectomy of lung LOWER LEFT LUNG S/P peripheral artery angioplasty with stent placement (06/2016) LLE [place] FOLDER, 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 S/P thoracentesis (05/2019) L pleural effusion Status post femorofemoral bypass surgery (06/2016) [place] teeth removed Family History Brother Myocardial infarction Father Myocardial infarction Other Cancer Family history non-contributory Lung disease No family history of adverse response to anesthesia Denies family history of Tuberculosis Ovarian cancer Prostate cancer Diabetes Heart disease Allergies Breast cancer Emphysema, unspecified Lung cancer Colorectal cancer Asthma Social History Smoking Status: Former smoker Tobacco Type: Cigarettes Age Started Using Tobacco: 10; packs per day: 0.5; Years Smoked: 30; Cigarettes Per Day: 6-8 DAILY; Second Hand Exposure: No; Do You Dip or Chew Tobacco: No; Tobacco Cessation Education Requested by Patient: No Hx Alcohol Use: Yes Alcohol type: beer Alcohol Intake Frequency: 4 or More x per/Week Alcohol Intake Frequency Comment: mostly daily Hx Substance Use: No (medical THC (uses as directed)) Preferred Language: Japanese Communication Ability: Effective Visual Impairment: No Limitations Hearing Ability: Normal Glass Mould Cleaner Required: No Beliefs That Will Affect Care: None marital status: Current Living Situation: Alone Current Living Situation Comment: Pt does have caregivers current occupational status: disabled How many Children do You have: 2 Other Information That Helps Us Care for You: No Feels Safe at Home: Yes Safety Concerns: Feels Safe At This Time Childhood Exposure to Second-Hand Smoke: Yes Diet Comment: regular caffeine: Yes (coffee 1 pot a day) during the past year weight has: remained stable Dental Care, Regularly: No Physical Activity Frequency: Does not Exercise Seatbelt Use: always Sunscreen Use: No Assistive Devices: Wheelchair Review of Systems Constitutional: no fever Eyes: no problem reported Ear, Nose, Mouth, Throat: no problem reported Respiratory: + cough Cardiovascular: no chest pain Gastrointestinal: no abdominal pain Physical Exam Constitutional: + ill appearing; not in distress Eyes: PERRL, conjunctivae normal, anicteric sclerae ENMT: Mouth: + dry oral mucous membranes Neck: trachea midline, no thyromegaly Respiratory: no respiratory distress Auscultation: + rhonchi Cardiovascular: RRR, no murmur, no edema Gastrointestinal (Abdomen): Inspection/Auscultation: abdomen normal to inspection Percussion/Palpation: abdomen soft; abdomen nontender and no guarding Neurologic: awake Results & Data ([facility]) Vital Signs (Past 12 Hours) Vital Signs Temp Pulse Pulse Resp BP Pulse Ox O2 Del Method 02/15/22 12:56 77 19 90 Room Air 02/15/22 12:49 36.6 C 67 16 103/70 97 Nasal Cannula 02/15/22 12:49 68 02/15/22 12:49 Nasal Cannula 02/15/22 07:30 36.3 C L 69 18 172/89 H 95 Room Air 02/15/22 07:27 69 18 90 Room Air 02/15/22 07:03 36.3 C L 69 18 172/89 H 95 Room Air O2 Flow Rate 02/15/22 12:56 02/15/22 12:49 2 02/15/22 12:49 02/15/22 12:49 2 02/15/22 07:30 02/15/22 07:27 02/15/22 07:03 Laboratory Results Laboratory Tests 02/10/22 02/15/22 02/15/22 11:42 05:33 05:33 WBC 13.19 H Hgb 11.6 L Hct 35.8 L Plt Count 257 Sodium 148 H Potassium 2.8 L Chloride 105 Carbon Dioxide 37 H Anion Gap 6 BUN 8 Creatinine 0.91 Urine Color Yellow Urine Appearance Clear Urine pH 6.5 Ur Specific [place] 1.005 Urine Protein Negative Urine Glucose (UA) Negative Urine Blood Negative Ur Leukocyte Esterase Negative Laboratory Tests 02/15/22 05:33 Magnesium 1.9 PG Care Time/CCT Total # of Minutes Spent Total Time Spent with Patient: Total time spent is greater than 50% in coordination of care (as documented) at patient's floor/unit and/or counseling patient: Coding Level of Care Code 82359 Inpt Consult Level 5 Diagnoses Hypernatremia E87.0 MP (acute kidney injury) N17.9 Sepsis A41.9 Acute renal failure type: unspecified Sepsis acute organ dysfunction status: with acute organ dysfunction Sepsis type: sepsis due to unspecified organism Severe sepsis acute organ dysfunction type: acute renal failure (1) Sepsis Acute renal failure type: unspecified Sepsis acute organ dysfunction status: with acute organ dysfunction Sepsis type: sepsis due to unspecified organism Severe sepsis acute organ dysfunction type: acute renal failure
[2022-02-15 18:29] LABS: BUN Creatinine Ratio 6.1 (10-20); Calcium 8.9 mg/dl (8.5-10.1); Creatinine Clr Calc Pharmacy 72.1 ml/min; Est GFR (African American) 91.4 ml/min; Est GFR (Non-African American) 78.9 ml/min; Potassium 3.3 mmol/L (3.5-5.1)
[2022-02-15] MEDS: MELATONIN 3 MG TAB PO SCH (21:12)
[2022-02-15] MEDS: QUEtiapine FUMARATE 25 MG TABLET PO SCH (21:12)
[2022-02-16] MEDS: POTASSIUM CHLORIDE / WTR 10 MEQ/100 ML PLCT IV SCH ×2 (01:48→02:55)
[2022-02-16] MEDS: PIPERACILLIN/TAZOBACTAM 4.5 GM in DEXTROSE 5% 100 ML IV SCH (02:31)
[2022-02-16 06:06] LABS: Basophils # (auto) 0.04 K/uL (0-0.2); Basophils % (auto) 0.2 %; Eosinophils # (auto) 1.21 K/uL (0-0.50); Eosinophils % (auto) 6.7 %; Hematocrit (blood only) 34.7 % (40.1-51.0); Hemoglobin 11.1 g/dl (14.0-18.0); Immature Granulocytes # (auto) 0.13 K/uL (0.00-0.02); Immature Granulocytes % (auto) 0.7 %; Lymphocytes # (auto) 0.46 K/uL (1.2-3.4); Lymphocytes % (auto) 2.5 %; Mean Corpuscular Hemoglobin 26.7 pg (25.0-34.0); Mean Corpuscular Volume 83.6 fL (80.0-100.0); Mean Platelet Volume 10.1 fL (9.4-12.4); Monocytes # (auto) 0.37 K/uL (0.24-0.82); Neutrophils # (auto) 15.88 K/uL (1.4-6.5); Neutrophils % (auto) 87.9 %; Nucleated RBC # (auto) 0.02 K/uL (0-0); Nucleated RBC % (auto) 0.1 %; Platelet Count 200 K/uL (130-400); RDW Coefficient of Variation 21.1 % (11.5-14.5); RDW Standard Deviation 62.4 fL (36.4-46.3); Red Blood Count 4.15 M/uL (4.63-6.08); White Blood Count 18.09 K/ul (4.8-10.8)
[2022-02-16] MEDS: HEPARIN SOD 5,000 UNIT/0.5 ML VIAL SQ SCH ×3 (06:31→22:42)
[2022-02-16 06:35] LABS: Albumin Globulin Ratio 1.1 (0.9-2); BUN Creatinine Ratio 7.7 (10-20); Bilirubin,Total 0.5 mg/dl (0.2-1.0); Calcium 8.3 mg/dl (8.5-10.1); Est GFR (African American) 85.1 ml/min; Est GFR (Non-African American) 73.4 ml/min; Globulin 2.7 gm/dl (2.5-4.0); Magnesium 1.6 mg/dl (1.7-2.4); Potassium 3.4 mmol/L (3.5-5.1); Total Protein 5.7 gm/dl (6.0-8.3)
--- NOTE | 2022-02-16 06:38 | XRay Report ---
XR chest 1V portable HISTORY: 67 years-old Male hypoxia acute hypoxia COMPARISON: 02/10/2022 TECHNIQUE: Portable AP view the chest FINDINGS: Cardiac silhouette is enlarged. Pulmonary vascular congestion with interstitial coarsening. No pneumo thorax. Trace right with small to moderate left pleural effusions. Persistent left basilar predominan t consolidation. Linear right perihilar opacity is unchanged. Degenerative changes of the shoulders a nd spine. IMPRESSION: 1. Cardiomegaly with unchanged pulmonary edema. 2. Small moderate left pleural effusion with left basilar consolidation is unchanged. 3. Linear right perihilar opacity is stable favoring atelectasis/scarring. Attention at follow-up rec ommended. ACT 112: Negative or not required by law. The above report was generated using voice recognition software. It may contain grammatical, syntax o r spelling errors. Electronically signed by: Александр Moore M.D. 02/16/2022 6:35 AM
--- NOTE | 2022-02-16 06:55 | Communication Note ---
Date of Service: February 16, 2022 Called to bedside. Patient had aspirated apple sauce with meds earlier in the night. Was desaturating after that event. Saturation improved on oxymask 5-8L. However, patient removing oxymask and desatting intermittently to 60s. Attempted to explain importance of keeping mask on but patient with altered mentation. Will order high-flow NC and cloth mitts to make it less likely to remove. Resident Activity Tracking Resident Involvement: Resident Care Provided Care Provided: Adult Hospital Medicine
[2022-02-16 06:56] LABS: Anisocytosis Present; Echinocytes 1+; Ovalocytes 1+
[2022-02-16] MEDS: ALBUTEROL 0.083% NEBU SOLN 3 ML VIAL NEB SCH ×4 (07:05→19:29)
[2022-02-16] MEDS ORDERED: LACTATED RINGER'S 1,000 ML IV ONE (07:46)
[2022-02-16] MEDS ORDERED: HYDROCORTISONE SOD SUCCINATE 100 MG/2 ML VIAL IV STA (07:46)
[2022-02-16] MEDS ORDERED: HYDROCORTISONE SOD 100 MG in SYRINGE 0 ML IV ONE (08:00)
[2022-02-16] MEDS ORDERED: STAT IV Infusion **Titration per Protocol STA ×2 (08:23→09:05)
[2022-02-16] MEDS ORDERED: ALBUT/IPRATROP 3MG/0.5MG NEB 3 ML VIAL NEB STA (08:23)
[2022-02-16] MEDS: MIDODRINE HCL 2.5 MG TAB PO SCH (08:31)
[2022-02-16 08:32] LABS: Base Excess VBG 5.3 mEq/L; HCO3 VBG 35 mmol/L; Oxygen Saturation VBG 94.9 %; PCO2 VBG 76 mmHg (38-50); PO2 VBG 72 mmHg; pH VBG 7.27 (7.36-7.41)
[2022-02-16] MEDS: INSULIN ASPART PER UNIT SC SCH ×4 (08:33→20:45)
[2022-02-16] MEDS: NOREPINEPHRINE/D5W 4 MG/250 ML PLCT IV SCH (08:56)
[2022-02-16] MEDS: diphenhydrAMINE 50 MG/ML VIAL IV SCH (08:57)
--- NOTE | 2022-02-16 09:00 | Hospitalist Progress Note ---
Date of Service February 16, 2022 Assessment & Plan (1) Acute respiratory failure with hypoxia and hypercapnia: Plan: 2nd to aspiration event/aspiration pneumonia. Continue BIPAP. Serial blood gases. Will change antibiotics due to allergy/drug reaction. Defer additional management to ICU attending. (2) Shock: Plan: Adrenal shock + septic shock. Can't rule out element of anaphylaxis given his stridor, rash, and eosinophilia. Either way treating with stress-dose IV steroids, copious IV Fluids, antibiotics, and pressors. Stress-dose steroids will help any element of anaphylaxis, if present. Defer additional Rx to ICU attending. No evidence of cardiogenic shock. (3) Drug reaction: Plan: Was on both zosyn + vanco IV when this reaction occurred. Question of previous vanco allergy. Recommend stopping both meds. Consider changing to combination of IV cefepime + flagyl + zyvox to cover his pneumonia. See below. Ultimate abx selection will be deferred to ICU attending, however. Stress-dose steroids will help with his rash. Stop benadryl due to somnolence/altered mental status. (4) Aspiration pneumonia: Plan: 2nd to dysphagia from esophageal stricture? Recurrent aspiration events with another event this morning. Previously on zosyn + vanco. Stop both. Cefepime/flagyl/zyvox? Levaquin/zyvox? Patient is MRSA+ from the nares. (5) Acute metabolic encephalopathy: Plan: 2nd to hypercarbia, sepsis, shock, etc. Supportive care. Stop benadryl and other sedatives. (6) Sepsis: Plan: 2nd to aspiration pneumonia. can't rule out RLE cellulitis contributing either. Blood cultures from admission negative. Now with recurrent aspiration. See above. Tx to ICU. (7) MP (acute kidney injury): Plan: Creatinine 1.89 at time of admission. Sepsis-associated ATN. Creatinine has normalized. See below regarding hypernatremia. Appreciate nephrology consultation. (8) COPD (chronic obstructive pulmonary disease) with chronic bronchitis: Plan: Now with exacerbation. Cont nebs. Cont steroids. Abx for #4. (9) Adrenal insufficiency: Plan: Received IV hydrocortisone for stress-dose steroids early in his stay, then weaned back to usual home doses. With shock - place back on high-dose hydrocortisone. i (10) Hypoglycemia: Plan: 2nd to adrenal insufficiency, sepsis, poor PO intake, etc. (11) Dysphagia: Plan: s/p video swallow with aspiration. Appreciate speech therapy consult. Appreciate GI consult. Was to have EGD today for esophageal stricture dilatation but deferred due to this AM's events. Cont PPI twice daily. (12) CKD (chronic kidney disease) stage 2, GFR 60-89 ml/min: Plan: Cont gallegos (13) Benign prostate hyperplasia: Plan: Hold Avodart Hold Tamsulosin (14) Elevated troponin: Plan: likely myocardial demand ischemia in setting of sepsis, MP, etc. 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 appreciate nephrology assistance defer vasopressin Rx to nephrology serial BMPs (20) Otitis externa: Plan: previous culture- 01/12/22 Org 1 = Staph aureus MRSA Org 2 = Stenotrophomonas maltophilia Org 3 = Staphylococcus aureus stable at this time (21) Hypomagnesemia: Plan: 2 grams mag sulfate IV x 1 serial mag levels (22) DVT prophylaxis: Plan: heparin 5000 TID Plan critical care time 100 minutes including shock management, acute resp failure management, discussing care with respiratory/nursing/ICU attending, discussing care plan with family, etc appreciate Dr Mckay's assistance Admission and Anticipated Discharge Date Admission Date: February 10, 2022 Subjective called by nursing staff shortly after shift change this am (~730) that patient was having respiratory distress and SBP was in the 60s by report he had aspirated on a tiny amount of applesauce 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) about 0630 this morning upon arrival the patient was somnolent/lethargic and not following any commands he was tachypneic, had audible stridor, and was wheezing with retractions brief exam performed I asked staff to STAT page respiratory for double duoneb treatment & placement of BIPAP IV access was not available - 2 nurses from IV team came to bedside to place a new IV site BSG was low 70s LR bolus x 1 given along with 100mg of IV hydrocortisone BIPAP applied; respiratory distress improved although persisted I asked for ICU transfer and bed was secured I accompanied him down to ICU respiratory status continued to improve he began to wake up and was pulling at the BIPAP mask; soft limb restraints were ordered & applied SBP briefly improved to >100 but quickly fell to 85-90 systolic levophed ordered per protocol VBG returned with respiratory acidosis; lactate was wnl; ammonia was wnl; troponin was mildly elevated care plan d/w Dr Mckay from ICU team I then called and spoke with pt's sister, Tanna Avery, gave extensive update regarding today's events She confirmed Mr Luther is full code He has 2 sons but they are a long distance away from [place] He is Review of Systems Review of Systems: Unobtainable due to cognitive status Physical Exam Physical Exam: gen - severe respiratory distress, tachypnea, retractions, audible stridor as well as wheezing; lethargic/obtunded eyes - PERRL neck - no JVD mouth - MM dry ears - dried drainage b/l ear canals, much worse on left heart - RRR, s1 s2 lungs - stridor present, diffuse exp wheezing b/l, crackles right base, decreased BS left base abd - soft NT ND BS+ ext - pulses <1+ b/l, no edema skin - diffuse erythematous rash extending from head to his shins; worst area of rash was the chest and torso; some petechiae on shins; occasional urticarial lesion; right parr with confluent area of cellulitis psych - not awake, not alert, not oriented Results & Data Results & Data ([facility]) Vital Signs (Past 12 Hours) Vital Signs Temp Pulse Resp BP Pulse Ox O2 Del Method O2 Flow Rate 02/16/22 07:30 36.9 C 79 25 H 79/51 L 95 Oxymask 6 02/16/22 07:05 78 22 98 Oxymask 8 02/16/22 03:56 36.7 C 91 H 18 97/64 L 93 Nasal Cannula 4 02/15/22 23:00 36.8 C 68 16 96/62 L 92 Room Air Laboratory Results Laboratory Results - last 24 hr 02/15/22 02/15/22 02/15/22 12:02 15:28 16:27 WBC RBC Hgb Hct MCV MCH MCHC RDW Std Deviation RDW Coeff of Raul Plt Count MPV Immature Gran % (Auto) Neut % (Auto) Lymph % (Auto) Foard % (Auto) Eos % (Auto) Baso % (Auto) Neut # (Auto) Lymph # (Auto) Foard # (Auto) Eos # (Auto) Baso # (Auto) Immature Gran # (Auto) Absolute Nucleated RBC Nucleated RBC % (auto) Anisocytosis Ovalocytes Echinocytes VBG pH VBG pCO2 VBG pO2 VBG HCO3 VBG O2 Saturation VBG Base Excess Sodium Potassium Chloride Carbon Dioxide Anion Gap BUN Creatinine Est Cr Clr Drug Dosing Est GFR ( Amer) Est GFR (Non-Af Amer) BUN/Creatinine Ratio Glucose POC Glucose 76 125 H Lactate Calcium Magnesium Total Bilirubin AST ALT Alkaline Phosphatase Ammonia Troponin I High Sens Total Protein Albumin Globulin Albumin/Globulin Ratio Urine Osmolality 158 L 02/15/22 02/15/22 02/15/22 17:21 18:30 19:00 WBC RBC Hgb Hct MCV MCH MCHC RDW Std Deviation RDW Coeff of Raul Plt Count MPV Immature Gran % (Auto) Neut % (Auto) Lymph % (Auto) Foard % (Auto) Eos % (Auto) Baso % (Auto) Neut # (Auto) Lymph # (Auto) Foard # (Auto) Eos # (Auto) Baso # (Auto) Immature Gran # (Auto) Absolute Nucleated RBC Nucleated RBC % (auto) Anisocytosis Ovalocytes Echinocytes VBG pH VBG pCO2 VBG pO2 VBG HCO3 VBG O2 Saturation VBG Base Excess Sodium 147 H Potassium 3.3 L Chloride 107 Carbon Dioxide 36 H Anion Gap 4 BUN 6 Creatinine 0.98 Est Cr Clr Drug Dosing 72.1 Est GFR ( Amer) 91.4 Est GFR (Non-Af Amer) 78.9 BUN/Creatinine Ratio 6.1 L Glucose 124 H POC Glucose Lactate Calcium 8.9 Magnesium Total Bilirubin AST ALT Alkaline Phosphatase Ammonia Troponin I High Sens Total Protein Albumin Globulin Albumin/Globulin Ratio Urine Osmolality 412 L 480 L 02/15/22 02/15/22 02/15/22 20:00 20:06 20:45 WBC RBC Hgb Hct MCV MCH MCHC RDW Std Deviation RDW Coeff of Raul Plt Count MPV Immature Gran % (Auto) Neut % (Auto) Lymph % (Auto) Foard % (Auto) Eos % (Auto) Baso % (Auto) Neut # (Auto) Lymph # (Auto) Foard # (Auto) Eos # (Auto) Baso # (Auto) Immature Gran # (Auto) Absolute Nucleated RBC Nucleated RBC % (auto) Anisocytosis Ovalocytes Echinocytes VBG pH VBG pCO2 VBG pO2 VBG HCO3 VBG O2 Saturation VBG Base Excess Sodium Potassium Chloride Carbon Dioxide Anion Gap BUN Creatinine Est Cr Clr Drug Dosing Est GFR ( Amer) Est GFR (Non-Af Amer) BUN/Creatinine Ratio Glucose POC Glucose 95 Lactate Calcium Magnesium Total Bilirubin AST ALT Alkaline Phosphatase Ammonia Troponin I High Sens Total Protein Albumin Globulin Albumin/Globulin Ratio Urine Osmolality 471 L 473 L 02/16/22 02/16/22 02/16/22 05:50 05:50 08:05 WBC 18.09 H RBC 4.15 L Hgb 11.1 L Hct 34.7 L MCV 83.6 MCH 26.7 MCHC 32.0 RDW Std Deviation 62.4 H RDW Coeff of Raul 21.1 H Plt Count 200 MPV 10.1 Immature Gran % (Auto) 0.7 Neut % (Auto) 87.9 Lymph % (Auto) 2.5 Foard % (Auto) 2.0 Eos % (Auto) 6.7 Baso % (Auto) 0.2 Neut # (Auto) 15.88 H Lymph # (Auto) 0.46 L Foard # (Auto) 0.37 Eos # (Auto) 1.21 H Baso # (Auto) 0.04 Immature Gran # (Auto) 0.13 H Absolute Nucleated RBC 0.02 H Nucleated RBC % (auto) 0.1 Anisocytosis Present Ovalocytes 1+ Echinocytes 1+ VBG pH VBG pCO2 VBG pO2 VBG HCO3 VBG O2 Saturation VBG Base Excess Sodium 146 H Potassium 3.4 L Chloride 109 H Carbon Dioxide 35 H Anion Gap 2 L BUN 8 Creatinine 1.04 Est Cr Clr Drug Dosing 68.0 Est GFR ( Amer) 85.1 Est GFR (Non-Af Amer) 73.4 BUN/Creatinine Ratio 7.7 L Glucose 77 POC Glucose 72 Lactate Calcium 8.3 L Magnesium 1.6 L Total Bilirubin 0.5 AST 12 L ALT 8 Alkaline Phosphatase 49 Ammonia Troponin I High Sens Total Protein 5.7 L Albumin 3.0 L Globulin 2.7 Albumin/Globulin Ratio 1.1 Urine Osmolality 02/16/22 02/16/22 02/16/22 08:12 08:12 08:12 WBC RBC Hgb Hct MCV MCH MCHC RDW Std Deviation RDW Coeff of Raul Plt Count MPV Immature Gran % (Auto) Neut % (Auto) Lymph % (Auto) Foard % (Auto) Eos % (Auto) Baso % (Auto) Neut # (Auto) Lymph # (Auto) Foard # (Auto) Eos # (Auto) Baso # (Auto) Immature Gran # (Auto) Absolute Nucleated RBC Nucleated RBC % (auto) Anisocytosis Ovalocytes Echinocytes VBG pH 7.27 L VBG pCO2 76 H VBG pO2 72 VBG HCO3 35 VBG O2 Saturation 94.9 VBG Base Excess 5.3 Sodium Potassium Chloride Carbon Dioxide Anion Gap BUN Creatinine Est Cr Clr Drug Dosing Est GFR ( Amer) Est GFR (Non-Af Amer) BUN/Creatinine Ratio Glucose POC Glucose Lactate 1.7 Calcium Magnesium Total Bilirubin AST ALT Alkaline Phosphatase Ammonia 47.0 Troponin I High Sens Total Protein Albumin Globulin Albumin/Globulin Ratio Urine Osmolality 02/16/22 08:13 WBC RBC Hgb Hct MCV MCH MCHC RDW Std Deviation RDW Coeff of Raul Plt Count MPV Immature Gran % (Auto) Neut % (Auto) Lymph % (Auto) Foard % (Auto) Eos % (Auto) Baso % (Auto) Neut # (Auto) Lymph # (Auto) Foard # (Auto) Eos # (Auto) Baso # (Auto) Immature Gran # (Auto) Absolute Nucleated RBC Nucleated RBC % (auto) Anisocytosis Ovalocytes Echinocytes VBG pH VBG pCO2 VBG pO2 VBG HCO3 VBG O2 Saturation VBG Base Excess Sodium Potassium Chloride Carbon Dioxide Anion Gap BUN Creatinine Est Cr Clr Drug Dosing Est GFR ( Amer) Est GFR (Non-Af Amer) BUN/Creatinine Ratio Glucose POC Glucose Lactate Calcium Magnesium Total Bilirubin AST ALT Alkaline Phosphatase Ammonia Troponin I High Sens Pending Total Protein Albumin Globulin Albumin/Globulin Ratio Urine Osmolality Diagnostic Findings Chest X-Ray 02/16/22 04:48 XR chest 1V portable HISTORY: 67 years-old Male hypoxia acute hypoxia COMPARISON: 02/10/2022 TECHNIQUE: Portable AP view the chest FINDINGS: Cardiac silhouette is enlarged. Pulmonary vascular congestion with interstitial coarsening. No pneumothorax. Trace right with small to moderate left pleural effusions. Persistent left basilar predominant consolidation. Linear right perihilar opacity is unchanged. Degenerative changes of the shoulders and spine. IMPRESSION: 1. Cardiomegaly with unchanged pulmonary edema. 2. Small moderate left pleural effusion with left basilar consolidation is unchanged. 3. Linear right perihilar opacity is stable favoring atelectasis/scarring. Attention at follow-up recommended. ACT 112: Negative or not required by law. The above report was generated using voice recognition software. It may contain grammatical, syntax or spelling errors. Electronically signed by: Александр Moore M.D. 02/16/2022 6:35 AM PG Care Time/CCT Total # of Minutes Spent Total Time Spent with Patient: Total time spent is greater than 50% in coordination of care (as documented) at patient's floor/unit and/or counseling patient: Critical Care Time: Yes Total Critical Care Time: 100 Coding Level of Care Code None Diagnoses Acute respiratory failure with hypoxia and hypercapnia J96.01; J96.02 Shock R57.9 Drug reaction T50.905A Aspiration pneumonia J69.0 Acute metabolic encephalopathy G93.41 Sepsis A41.9 MP (acute kidney injury) N17.9 COPD (chronic obstructive pulmonary disease) with chronic bronchitis J44.9 Adrenal insufficiency E27.40 Hypoglycemia E16.2 Dysphagia R13.10 CKD (chronic kidney disease) stage 2, GFR 60-89 ml/min N18.2 Benign prostate hyperplasia N40.0 Elevated troponin R77.8 Recurrent left pleural effusion J90 Hypokalemia E87.6 History of stroke Z86.73 Cellulitis, leg L03.119 Hypernatremia E87.0 Otitis externa H60.90 Hypomagnesemia E83.42 DVT prophylaxis Z29.9 Additional Codes Critical Care Time - Critical Care Time: Yes ([id number]) Time Spent (min) 100 Comment critical care time
--- NOTE | 2022-02-16 09:17 | Communication Note ---
Date of Service: February 16, 2022 Patient aspirated overnight and is now in the ICU utilizing bipap. Will cancel EGD for today, focus on improving respiratory status, & re-evaluate timing of EGD pending clinical improvement. HAND TWISTER following patient as well.
[2022-02-16] MEDS ORDERED: LINEZOLID 600 MG/300 ML D5W IV SCH (09:31)
[2022-02-16] MEDS ORDERED: POTASSIUM CHLORIDE / WTR 10 MEQ/100 ML PLCT IV ONE (09:31)
[2022-02-16] MEDS: ATORVASTATIN 40 MG TAB PO SCH (10:00)
[2022-02-16] MEDS: CLOPIDOGREL BISULFATE 75 MG TAB PO SCH (10:00)
[2022-02-16] MEDS: FOLIC ACID 1 MG TAB PO SCH (10:00)
[2022-02-16] MEDS: POLYETHYLENE (MIRALAX) 17 GM PACK PO SCH (10:00)
[2022-02-16] MEDS: TAMSULOSIN HCL 0.4 MG CAP PO SCH (10:00)
[2022-02-16] MEDS: HYDROCORTISONE 10 MG TAB PO SCH (10:00)
[2022-02-16] MEDS: ASPIRIN 81 MG CHEW PO SCH (10:00)
[2022-02-16] MEDS: GABAPENTIN 300 MG CAP PO SCH (10:00)
[2022-02-16] MEDS: buPROPion HCl 100 MG TABLET PO SCH (10:00)
[2022-02-16] MEDS: PANTOprazole 40 MG TAB PO SCH (10:00)
[2022-02-16] MEDS: SENNA 8.6 MG TAB PO SCH (10:00)
--- NOTE | 2022-02-16 10:06 | Nephrology Progress Note ---
Date of Service February 16, 2022 Assessment & Plan (1) Hypernatremia: Plan: * Patient does have an element of CDI. Uosm was inappropriately low in the setting of hypernatremia c/w a water diuresis. He did respond appropriately to 4 mcg IV DDAVP. Uosm increased c/w intact renal response to ADH * Considered redosing DDAVP this am, however patient was transferred to ICU and is now on Levophed gtt and ordered IV Vasopressing * Will monitor PRP, UO (2) MP (acute kidney injury): Plan: * Probable ATN related to sepsis - resolved (3) Sepsis: Plan: * Recurrent aspiration pneumonia * Remains on broad spectrum antibiotics Admission and Anticipated Discharge Date Admission Date: February 10, 2022 Subjective Mr. Luther suffered an episode of aspiration yesterday resulting in hypoxemia and necessitating transfer to MICU for NIPPV and pressor support Review of Systems Review of Systems: Unobtainable due to cognitive status Physical Exam Constitutional: + ill appearing (on NIPPV) Eyes: PERRL, conjunctivae normal, anicteric sclerae ENMT: Mouth: + dry oral mucous membranes Neck: trachea midline, no thyromegaly Respiratory: no respiratory distress Auscultation: + rhonchi Cardiovascular: RRR, no murmur, no edema Gastrointestinal (Abdomen): Inspection/Auscultation: abdomen normal to inspection Percussion/Palpation: abdomen soft; abdomen nontender and no guarding Neurologic: awake Results & Data ([facility]) Vital Signs (Past 12 Hours) Vital Signs Temp Pulse Pulse Resp BP BP Pulse Ox 02/16/22 08:45 84 22 94 02/16/22 08:45 80 22 93 02/16/22 09:30 37.2 C 80 18 128/75 97 02/16/22 09:25 37.1 C 79 21 148/67 H 96 02/16/22 09:20 37.2 C 87 18 123/77 98 02/16/22 09:15 37.2 C 78 20 143/85 H 95 02/16/22 09:14 37.2 C 78 19 146/87 H 94 02/16/22 09:10 37.2 C 77 19 145/79 H 100 02/16/22 09:08 37.2 C 77 19 145/80 H 95 02/16/22 09:05 37.2 C 74 20 154/84 H 02/16/22 09:03 37.2 C 74 20 176/85 H 02/16/22 09:00 37.3 C 73 21 167/87 H 02/16/22 08:56 37.4 C 71 21 61/41 L 02/16/22 08:47 37.4 C 74 21 76/44 L 91 02/16/22 08:46 37.4 C 75 21 72/51 L 91 02/16/22 08:45 37.4 C 74 23 02/16/22 08:35 37.4 C 79 22 111/66 02/16/22 08:31 80 20 102/71 02/16/22 08:29 79 18 90/68 L 02/16/22 07:30 36.9 C 79 25 H 79/51 L 95 02/16/22 07:05 78 22 98 02/16/22 03:56 36.7 C 91 H 18 97/64 L 93 02/15/22 23:00 36.8 C 68 16 96/62 L 92 O2 Del Method O2 Flow Rate FiO2 02/16/22 08:45 40 02/16/22 08:45 BiPAP 40 02/16/22 09:30 BiPAP 40 02/16/22 09:25 BiPAP 40 02/16/22 09:20 BiPAP 40 02/16/22 09:15 BiPAP 40 02/16/22 09:14 BiPAP 40 02/16/22 09:10 BiPAP 40 02/16/22 09:08 BiPAP 40 02/16/22 09:05 BiPAP 40 02/16/22 09:03 BiPAP 40 02/16/22 09:00 BiPAP 40 02/16/22 08:56 BiPAP 40 02/16/22 08:47 BiPAP 40 02/16/22 08:46 BiPAP 40 02/16/22 08:45 BiPAP 40 02/16/22 08:35 BiPAP 40 02/16/22 08:31 BiPAP 40 02/16/22 08:29 BiPAP 40 02/16/22 07:30 Oxymask 6 02/16/22 07:05 Oxymask 8 02/16/22 03:56 Nasal Cannula 4 02/15/22 23:00 Room Air Laboratory Results Laboratory Tests 02/16/22 02/16/22 05:50 05:50 WBC 18.09 H Hgb 11.1 L Hct 34.7 L Plt Count 200 Sodium 146 H Potassium 3.4 L Chloride 109 H Carbon Dioxide 35 H Laboratory Tests 02/16/22 05:50 BUN 8 Creatinine 1.04 Glucose 77 PG Care Time/CCT Total # of Minutes Spent Total Time Spent with Patient: Total time spent is greater than 50% in coordination of care (as documented) at patient's floor/unit and/or counseling patient: Coding Level of Care Code 75680 Subseq Hosp Care Lvl 3 Diagnoses Hypernatremia E87.0 MP (acute kidney injury) N17.9 Sepsis A41.9 Acute renal failure type: unspecified Sepsis acute organ dysfunction status: with acute organ dysfunction Sepsis type: sepsis due to unspecified organism Severe sepsis acute organ dysfunction type: acute renal failure (1) Sepsis Acute renal failure type: unspecified Sepsis acute organ dysfunction status: with acute organ dysfunction Sepsis type: sepsis due to unspecified organism Severe sepsis acute organ dysfunction type: acute renal failure
[2022-02-16 10:15] LABS: Basophils # (auto) 0.05 K/uL (0-0.2); Basophils % (auto) 0.3 %; Eosinophils # (auto) 1.13 K/uL (0-0.50); Eosinophils % (auto) 5.7 %; Hematocrit (blood only) 39.2 % (40.1-51.0); Hemoglobin 12.3 g/dl (14.0-18.0); Immature Granulocytes # (auto) 0.17 K/uL (0.00-0.02); Immature Granulocytes % (auto) 0.9 %; Lymphocytes # (auto) 0.42 K/uL (1.2-3.4); Lymphocytes % (auto) 2.1 %; Mean Corpuscular Hemoglobin 26.9 pg (25.0-34.0); Mean Corpuscular Hgb Conc 31.4 g/dL (32.0-36.0); Mean Corpuscular Volume 85.8 fL (80.0-100.0); Mean Platelet Volume 9.9 fL (9.4-12.4); Monocytes # (auto) 0.37 K/uL (0.24-0.82); Monocytes % (auto) 1.9 %; Neutrophils # (auto) 17.52 K/uL (1.4-6.5); Neutrophils % (auto) 89.1 %; Platelet Count 217 K/uL (130-400); RDW Coefficient of Variation 21.3 % (11.5-14.5); RDW Standard Deviation 64.3 fL (36.4-46.3); Red Blood Count 4.57 M/uL (4.63-6.08); White Blood Count 19.66 K/ul (4.8-10.8)
[2022-02-16] MEDS: MAGNESIUM SULFATE / D5W 1 GM/100 ML BAG IV SCH ×2 (10:25→11:44)
[2022-02-16] MEDS: VASOPRESSIN 20 UNITS in 0.9 % SODIUM CHLORIDE 100 ML IV SCH ×2 (10:37→18:33)
[2022-02-16 10:38] LABS: Acanthocytes 1+; Anisocytosis Present; Poikilocytosis Present
[2022-02-16 10:41] LABS: Albumin Globulin Ratio 1.1 (0.9-2); Albumin Level 3.3 gm/dl (3.4-5.0); BUN Creatinine Ratio 7.1 (10-20); Bilirubin,Total 0.6 mg/dl (0.2-1.0); Calcium 8.8 mg/dl (8.5-10.1); Creatinine Clr Calc Pharmacy 62.6 ml/min; Est GFR (Non-African American) 66.4 ml/min; Potassium 3.6 mmol/L (3.5-5.1); Total Protein 6.3 gm/dl (6.0-8.3)
[2022-02-16] MEDS: metroNIDAZOLE 500 MG/100 ML BAG IV SCH ×2 (10:45→18:30)
[2022-02-16] MEDS: levoFLOXacin/D5W 750 MG/150 ML BAG IV SCH (10:46)
--- NOTE | 2022-02-16 10:48 | Procedure Note ---
Procedure Note Date of Service February 16, 2022 Note Right FEMORAL CENTRAL LINE PROCEDURE NOTE: Procedure: Femoral Central Line Placement Indication: Central Drug Administration, Poor Venous Access, Multiple Lab Draws Necessary, etc. Anesthesia: None/10 mL lidocaine 1% Procedure was done emergently as the patient was profoundly hypotensive and encephalopathic. A time-out was completed verifying correct patient, procedure, site, positioning, and implants(s) or special equipment if applicable. Patients right groin was cleansed and draped in the typical sterile fashion using Chloraprep. The Femoral Vein and Femoral Artery were identified using ultrasound. The superficial tissue was anesthetized using 10 mL of 1% lidocaine without epinephrine under direct visualization with the ultrasound. After adequate anesthetization was achieved, the Femoral Vein was cannulated under direct ultrasound guidance using an introducer needle on a syringe. Good venous blood return was maintained prior to removal of syringe from introducer needle. Using Seldinger Technique, a guide wire was advanced through the introducer needle without resistance. The introducer needle was removed and ultrasound images were obtained of the guide wire within the Femoral Vein and saved to the patients medical record. A small incision was made in penetrating fashion at the guide wire insertion site utilizing an 11 blade scalpel. The dilator was advanced to the vessel without resistance. The dilator was exchanged for the triple lumen catheter which was advanced into the vessel without resistance. The guide wire was removed intact from the catheter without issue. Claves were placed on each catheter tip with confirmation of good blood flow from each lumen. Each port was easily flushed with sterile saline. The catheter was placed at the hub and sutured in place. BioPatch was applied to the catheter and a sterile Tegaderm dressing was applied over the catheter with careful attention to sterility. Patient tolerated procedure well. No immediate complications were met. Procedural Ultrasound Guidance utilized. Coding CPT Codes Tubes, Drains, and Vasc Access - Tubes, Drains, and Vasc Access: [id number] Place catheter in vein superior or inferior vena cava ([id number]) Tubes, Drains, and Vasc Access - Tubes, Drains, and Vasc Access: [id number] Ultrasound Guidance For Vascular ([id number]) [facility] [place] Procedure Codes (Charges) Tubes, Drains, and Vasc Access Procedure 1: Tubes, Drains, and Vasc Access: [id number] Place catheter in vein superior or inferior vena cava Procedure 2: Tubes, Drains, and Vasc Access: [id number] Ultrasound Guidance For Vascular
[2022-02-16] MEDS: VANCOMYCIN HCL 1,500 MG in SODIUM CHLORIDE 0.9% 500 ML IV SCH (10:54)
[2022-02-16] MEDS: LINEZOLID 600 MG/300 ML BAG IV SCH ×2 (11:30→22:42)
--- NOTE | 2022-02-16 11:32 | Critical Care Consultation ---
Date of Consultation February 16, 2022 Assessment & Plan (1) Shock: (2) Acute respiratory failure with hypoxia and hypercapnia: (3) Acute metabolic encephalopathy: (4) Aspiration pneumonia: (5) CKD (chronic kidney disease) stage 2, GFR 60-89 ml/min: (6) Adrenal insufficiency: Plan 67-year-old male with multiple comorbidities including stage III non-small cell lung cancer status postchemotherapy and radiation, CKD stage II/III, bipolar disorder, hypertension and COPD presenting to the ICU due to shock state and respiratory failure. Neurologic: Avoid sedating agents. Low threshold for intubation and mental status her respiratory status is compromised further. MRI of the brain reviewed. He has chronic changes, but no acute findings. Suspect encephalopathy related to hypercapnic respiratory failure and metabolic findings from sepsis. Pulmonary: Continue BiPAP and obtain ABG. As above, low threshold for intubation. He has a history of a chronic left pleural effusion likely from lung entrapment. If he spikes a fever or develops worsening shock, will need to consider pigtail placement and sampling of the pleural fluid. Continue home inhalers. May need to consider switching to nebulizers. Cardiovascular: Maintain mean arterial pressures above 65. Patient is doing well on low-dose Levophed. Shock state may be multifactorial related to adrenal insufficiency and sepsis. Echo from January 13, 2020 reviewed with an LVEF of 65 to 70%. Technically limited study. EKG reviewed with prolonged QTC. Continue aspirin. Gastrointestinal: N.p.o. at this time. Continue Protonix IV. Renal: Gentle hydration. Patient notably has hyponatremia likely due to poor p.o. intake. Replace electrolytes as necessary per protocol. Infectious disease: We will change antibiotics from vancomycin and cefepime to linezolid and Levaquin given the concerns for anaphylactic-like reaction and stenotrophomonas. Flagyl empirically added as well for 48 hours. Follow repeat blood cultures and urine cultures. Hematologic: Lymphopenia noted. Significant eosinophilia as well which may be related to drug reaction. LFT stable. Endocrine: Continue hydrocortisone 50 mg every 6 for possible adrenal insufficiency. Check TSH. Normal in June. Lines and tubes: Right femoral central line placed 02/16/2022. Swartz catheter in place. Peripheral IV in left hand. VTE prophylaxis: Heparin 5000 units 3 times daily CODE STATUS: Full code Family at bedside: None currently at bedside Disposition: ICU I have personally spent 48 minutes of critical care time in the direct management of this patient. This is a life/limb threatening event. This includes time spent evaluating patient, direct bedside care, chart review, placing orders, interpretation of diagnostic studies, discussion with consultants, patient, and family members, as well as other required patient management activities. This time is exclusive of all separately billable procedures, and teaching time and separate from and in addition to any other critical care service time. Thank you for allowing us to participate in the care of this patient. History of Present Illness Reason for Consultation: Septic shock with altered mental status Attending Physician: Omid Thomson History of Present Illness 67-year-old male with a past medical history of stroke, COPD, adrenal insufficiency, non-small cell lung cancer stage III status postchemotherapy and radiation, PAD/PVD with femorofemoral bypass, bilateral carotid artery occlusions, and recurrent left pleural effusion presenting to the hospital on 02/10/2022 due to increasing cough and shortness of breath. He is currently in the ICU and is very tachypneic and confused. He has a BiPAP mask in place. He is unable to give any history. He is also hypotensive with systolic blood pressures in the 60s. I urgently placed a right femoral central line and started the patient on Levophed with significant improvement in blood pressures. He remains confused and remains on BiPAP. Apparently he was to undergo GI procedure today and he had an aspiration event earlier today. Much of the history is obtained from discussion with the hospitalist, bedside nurse and review of the chart. I have seen this patient in the pulmonary clinic in the past. I performed a left thoracentesis in 2019 which revealed lymphocytes and benign tissue. He had follow-up procedures in 2020 which were also negative for malignancy. During his hospital stay he had left ear cultures obtained January 2022 which revealed MRSA, Stenotrophomonas maltophilia and Staph aureus. Blood cultures during this hospital stay have been negative to date. The primary team was concerned that he was having an anaphylactic-like reaction from either vancomycin or cefepime given his lower blood pressure and rash. His antibiotics have been changed to Zyvox and Levaquin. He had a chest x-ray today which demonstrated cardiomegaly. Small moderate left pleural effusion with left basilar consolidation. Linear right perihilar opacity. MRI brain obtained 02/14/2022 revealed chronic changes including c hronic left frontal lobe and left basal ganglia infarcts, loss of normal flow voids within the distal internal carotid arteries, obese mild canal stenosis at C3 and C4. No acute abnormality noted. 's labs are significant for leukocytosis. ABG suggestive of hypercapnic respiratory failure with a pH of 7.27 and PCO2 of 76. Chemistries concerning for mild acute hyponatremia with a sodium of 147. Nephrology is on board. Allergies Allergy/AdvReac Type Severity Reaction Status Date / Time ciprofloxacin Allergy Mild RASH Verified 02/02/22 11:29 vancomycin Allergy Mild RASH Verified 02/02/22 11:29 sulfamethoxazole Allergy Unknown Unknown Verified 02/02/22 11:29 [From Bactrim] trimethoprim [From Bactrim] Allergy Unknown Unknown Verified 02/02/22 11:29 Home Medications Medication Instructions Recorded Confirmed Type miscellaneous medical supply #1 ea 08/07/21 01/11/22 Rx albuterol sulfate 90 mcg/actuation 2 puff inhalation QID PRN 08/13/21 02/02/22 Rx aerosol inhaler (Ventolin HFA) shortness of breath or wheezing #18 grams melatonin 5 mg tablet 5 mg PO HS 08/13/21 02/02/22 History clopidogrel 75 mg tablet 75 mg PO QAM 30 days #90 tabs 09/04/21 02/02/22 Rx aspirin 81 mg chewable tablet 81 mg PO QAM 10/01/21 02/02/22 History dutasteride 0.5 mg capsule 0.5 mg PO QAM 10/01/21 02/02/22 History (Avodart) fluticasone fur. 100 mcg-umeclid 1 inh inhalation QAM 10/01/21 02/02/22 History 62.5 mcg-vilant 25 mcg inhalat.powder (Trelegy Ellipta) folic acid 1 mg tablet 1,000 mcg PO QAM 10/01/21 02/02/22 History tamsulosin 0.4 mg capsule 0.4 mg PO QAM 10/01/21 02/02/22 History gabapentin 300 mg capsule 300 mg PO TID 10/22/21 02/02/22 History hydrocortisone 10 mg tablet See Rx Instructions .Route 11/04/21 02/02/22 Rx (Cortef) .COMPLEX #45 tabs polyethylene glycol 3350 17 gram 17 g PO TID #21 ea 11/04/21 02/02/22 Rx oral powder packet (Miralax) quetiapine 25 mg tablet 25 mg PO HS #0 tabs 11/04/21 02/02/22 Rx sennosides 8.6 mg tablet (Senokot) 8.6 mg PO QAM #7 tabs 11/04/21 02/02/22 Rx lansoprazole 30 mg capsule,delayed 30 mg PO QAM 01/11/22 02/02/22 History release amoxicillin 875 mg-potassium 1 tab PO BID #7 tabs 01/14/22 02/02/22 Rx clavulanate 125 mg tablet midodrine 5 mg tablet 5 mg PO TID #90 tabs 01/14/22 02/02/22 Rx tobramycin 0.3 %-dexamethasone 0.1 1 drp ophthalmic (eye) QID #2.5 mL 01/21/22 02/02/22 Rx % eye drops,suspension (TobraDex) atorvastatin 40 mg tablet 40 mg PO QAM 90 days #90 tabs 01/29/22 02/02/22 Rx bupropion HCl 100 mg tablet 100 mg PO QAM #90 tabs 02/09/22 Rx Patient History Medical History Ataxic gait Bacteremia due to methicillin resistant Staphylococcus aureus hx? patient unsure of details Benign prostate hyperplasia Bilateral carotid artery occlusion Bipolar disorder Chlamydial proctitis hx 2018? Confusion poor historian COPD (chronic obstructive pulmonary disease) with chronic bronchitis Esophageal stenosis GERD (gastroesophageal reflux disease) Hepatic steatosis Hiatal hernia History of COVID-19 07/2020 ([facility]) HOSPITALIZED AT [facility] History of esophageal dilatation History of lung cancer (01/2016) 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 History of stroke Hospitalization within last 30 days treated at [facility] for several days -- patient unsure of why he was here? HTN (hypertension) Hypertension Medical marijuana use On anticoagulant therapy plavix daily On home oxygen therapy 3L n/c prn for SOB Osteomyelitis Peripheral arterial disease Peripheral neuropathy Pneumonia possible recent pneumonia? patient unsure. Poor historian Recurrent left pleural effusion s/p thoracentesis August 2018 Restless leg syndrome Schizoaffective disorder Surgical History H/O foot surgery LEFT HEEL REMOVAL FROM PRESSURE ULCER History of bronchoscopy (01/2016) History of colonoscopy History of esophagogastroduodenoscopy (EGD) with dilation (, 11/23/21, 10/2021) History of herniorrhaphy History of lobectomy of lung LOWER LEFT LUNG S/P peripheral artery angioplasty with stent placement (06/2016) [employer], 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 S/P thoracentesis (05/2019) L pleural effusion Status post femorofemoral bypass surgery (06/2016) [place] teeth removed Family History Brother Myocardial infarction Father Myocardial infarction Other Cancer Family history non-contributory Lung disease No family history of adverse response to anesthesia Denies family history of Tuberculosis Ovarian cancer Prostate cancer Diabetes Heart disease Allergies Breast cancer Emphysema, unspecified Lung cancer Colorectal cancer Asthma Social History Smoking Status: Former smoker Tobacco Type: Cigarettes Age Started Using Tobacco: 10; packs per day: 0.5; Years Smoked: 30; Cigarettes Per Day: 6-8 DAILY; Second Hand Exposure: No; Hx Alcohol Use: Yes Alcohol type: beer Alcohol Intake Frequency: 4 or More x per/Week Alcohol Intake Frequency Comment: mostly daily Hx Substance Use: No (medical THC (uses as directed)) Preferred Language: Mauritian Communication Ability: Effective Visual Impairment: No Limitations Hearing Ability: Normal Gastroenterology Nurse Required: No Beliefs That Will Affect Care: None marital status: Current Living Situation: Alone Current Living Situation Comment: Pt does have caregivers current occupational status: disabled How many Children do You have: 2 Feels Safe at Home: Yes Childhood Exposure to Second-Hand Smoke: Yes Diet Comment: regular caffeine: Yes (coffee 1 pot a day) during the past year weight has: remained stable Dental Care, Regularly: No Physical Activity Frequency: Does not Exercise Seatbelt Use: always Sunscreen Use: No Assistive Devices: Wheelchair Review of Systems Review of Systems: Unobtainable due to cognitive status Physical Exam Physical Exam: Constitutional: Elderly and frail-appearing male in mild distress. BiPAP mask in place.. Eyes: Pupils are equal round and reactive to light. Conjunctivae are normal. Anicteric sclera. Ears nose, mouth and throat: BiPAP mask. Neck: Trachea is midline. Visual inspection is normal. Respiratory: Coarse breath sounds bilaterally. Tachypneic. Cardiovascular: Regular rate and rhythm. No murmurs. No edema. Gastrointestinal: Normal bowel sounds, soft, nontender and nondistended. No hepatosplenomegaly noted. Musculoskeletal: No cyanosis. Patient is able to move all extremities. Skin: No rashes, warm dry and intact. Neurologic: Arouses to painful stimuli and when name is called. Otherwise none communicative. Psychiatric: Unable to fully assess. Results & Data Results & Data ([facility]) Vital Signs (Past 12 Hours) Vital Signs Temp Pulse Pulse Resp BP BP Pulse Ox 02/16/22 10:56 37.1 C 77 19 105/63 97 02/16/22 10:45 37.2 C 78 20 130/66 95 02/16/22 10:38 37.2 C 75 18 114/68 97 02/16/22 10:35 37.2 C 77 20 74/57 L 98 02/16/22 10:30 37.2 C 76 18 79/49 L 98 02/16/22 10:15 37.2 C 80 28 H 121/70 94 02/16/22 10:00 37.2 C 79 20 114/68 96 02/16/22 09:45 37.1 C 81 23 145/88 H 97 02/16/22 08:45 84 22 94 02/16/22 08:45 80 22 93 02/16/22 09:30 37.2 C 80 18 128/75 97 02/16/22 09:25 37.1 C 79 21 148/67 H 96 02/16/22 09:20 37.2 C 87 18 123/77 98 02/16/22 09:15 37.2 C 78 20 143/85 H 95 02/16/22 09:14 37.2 C 78 19 146/87 H 94 02/16/22 09:10 37.2 C 77 19 145/79 H 100 02/16/22 09:08 37.2 C 77 19 145/80 H 95 02/16/22 09:05 37.2 C 74 20 154/84 H 02/16/22 09:03 37.2 C 74 20 176/85 H 02/16/22 09:00 37.3 C 73 21 167/87 H 02/16/22 08:56 37.4 C 71 21 61/41 L 02/16/22 08:47 37.4 C 74 21 76/44 L 91 02/16/22 08:46 37.4 C 75 21 72/51 L 91 02/16/22 08:45 37.4 C 74 23 02/16/22 08:35 37.4 C 79 22 111/66 02/16/22 08:31 80 20 102/71 02/16/22 08:29 79 18 90/68 L 02/16/22 07:30 36.9 C 79 25 H 79/51 L 95 02/16/22 07:05 78 22 98 02/16/22 03:56 36.7 C 91 H 18 97/64 L 93 O2 Del Method O2 Flow Rate FiO2 02/16/22 10:56 BiPAP 40 02/16/22 10:45 BiPAP 40 02/16/22 10:38 BiPAP 40 02/16/22 10:35 BiPAP 40 02/16/22 10:30 BiPAP 40 02/16/22 10:15 BiPAP 40 02/16/22 10:00 BiPAP 40 02/16/22 09:45 BiPAP 40 02/16/22 08:45 40 02/16/22 08:45 BiPAP 40 02/16/22 09:30 BiPAP 40 02/16/22 09:25 BiPAP 40 02/16/22 09:20 BiPAP 40 02/16/22 09:15 BiPAP 40 02/16/22 09:14 BiPAP 40 02/16/22 09:10 BiPAP 40 02/16/22 09:08 BiPAP 40 02/16/22 09:05 BiPAP 40 02/16/22 09:03 BiPAP 40 02/16/22 09:00 BiPAP 40 02/16/22 08:56 BiPAP 40 02/16/22 08:47 BiPAP 40 02/16/22 08:46 BiPAP 40 02/16/22 08:45 BiPAP 40 02/16/22 08:35 BiPAP 40 02/16/22 08:31 BiPAP 40 02/16/22 08:29 BiPAP 40 02/16/22 07:30 Oxymask 6 02/16/22 07:05 Oxymask 8 02/16/22 03:56 Nasal Cannula 4 Coding Level of Care Code Critical Care 1st 30-74 mins Diagnoses Shock R57.9 Acute respiratory failure with hypoxia and hypercapnia J96.01; J96.02 Acute metabolic encephalopathy G93.41 Aspiration pneumonia J69.0 CKD (chronic kidney disease) stage 2, GFR 60-89 ml/min N18.2 Adrenal insufficiency E27.40 Time Spent (min) 48
[2022-02-16] MEDS: PANTOprazole 40 MG in SYRINGE 0 ML IV SCH ×2 (11:33→20:29)
[2022-02-16 11:38] LABS: iSTAT Allen Test Pass; iSTAT Art Bld Gas pCO2 Correct 60 mmHg (35-46); iSTAT Art Bld Gas pH Corrected 7.334 (7.35-7.45); iSTAT Arterial Blood Gas HCO3 32 meg/L (19-24); iSTAT Arterial Blood Gas pCO2 60 mmHg (35-46); iSTAT Arterial Blood Gas pH 7.34 (7.35-7.45); iSTAT Arterial Blood Gas pO2 75 mmHg (80-95); iSTAT Arterial Blood Gas pO2 C 75; iSTAT Carbon Dioxide 34 mmol/L (24-31); iSTAT FiO2 40 %; iSTAT Hematocrit 31 % (42-52); iSTAT Hemoglobin 10.5 g/dl (14.0-18.0); iSTAT Potassium 3.7 mmol/L (3.3-5.0); iSTAT Site L Radial; iSTAT Sodium 143 mmol/L (135-144)
[2022-02-16] MEDS: HYDROCORTISONE SOD 50 MG in SYRINGE 0 ML IV SCH ×3 (13:53→23:01)
[2022-02-16] MEDS ORDERED: CEFEPIME 2,000 MG in SYRINGE 0 ML IV SCH (14:00)
--- NOTE | 2022-02-16 14:11 | Electrocardiogram Report ---
Test Reason : Blood Pressure : / mmHG Vent. Rate : 079 BPM Atrial Rate : 079 BPM P-R Int : 120 ms QRS Dur : 082 ms QT Int : 444 ms P-R-T Axes : 037 012 039 degrees QTc Int : 509 ms Normal sinus rhythm Low voltage QRS Nonspecific T wave abnormality Abnormal ECG When compared with ECG of 10-FEB-2022 11:09, Nonspecific T wave abnormality now evident in Inferior leads Confirmed by Michael Patel ([id number]) on 02/16/2022 2:10:50 PM Referred By: REFERRED SELF Confirmed By:Michael Patel
[2022-02-16] MEDS: UMECLIDINIUM/VILANTEROL 62.5/25MCG 7 PUFFS/INHALER INH SCH (15:40)
[2022-02-16] MEDS: FLUTICASONE FUROATE 100MCG 14 PUFFS/INHALER INH SCH (15:40)
[2022-02-17] MEDS: VASOPRESSIN 20 UNITS in 0.9 % SODIUM CHLORIDE 100 ML IV SCH ×2 (01:43→08:34)
[2022-02-17] MEDS: NOREPINEPHRINE/D5W 4 MG/250 ML PLCT IV SCH (01:43)
[2022-02-17] MEDS: metroNIDAZOLE 500 MG/100 ML BAG IV SCH ×2 (01:52→08:40)
[2022-02-17] MEDS: HEPARIN SOD 5,000 UNIT/0.5 ML VIAL SQ SCH ×3 (04:44→21:07)
[2022-02-17] MEDS: HYDROCORTISONE SOD 50 MG in SYRINGE 0 ML IV SCH ×3 (04:44→17:47)
[2022-02-17 05:18] LABS: Albumin Globulin Ratio 1.1 (0.9-2); Albumin Level 3.2 gm/dl (3.4-5.0); BUN Creatinine Ratio 13.5 (10-20); Bilirubin,Total 0.5 mg/dl (0.2-1.0); Calcium 8.4 mg/dl (8.5-10.1); Creatinine Clr Calc Pharmacy 95.5 ml/min; Est GFR (African American) 109.8 ml/min; Est GFR (Non-African American) 94.8 ml/min; Magnesium 1.9 mg/dl (1.7-2.4); Phosphorus 2.7 mg/dl (2.5-4.9); Potassium 3.3 mmol/L (3.5-5.1); Total Protein 6.2 gm/dl (6.0-8.3)
[2022-02-17] MEDS ORDERED: MAGNESIUM SULFATE / D5W 1 GM/100 ML BAG IV ONE (06:03)
[2022-02-17] MEDS ORDERED: POTASSIUM CHLORIDE 20 MEQ/15 ML UDC PO STA (06:03)
[2022-02-17] MEDS ORDERED: POTASSIUM CHLORIDE / WTR 10 MEQ/100 ML PLCT IV SCH (06:15)
[2022-02-17] MEDS: POTASSIUM CHLORIDE / WTR 20 MEQ/100 ML PLCT IV SCH ×3 (06:18→10:35)
[2022-02-17] MEDS: INSULIN ASPART PER UNIT SC SCH ×3 (07:17→18:29)
[2022-02-17] MEDS: ALBUTEROL 0.083% NEBU SOLN 3 ML VIAL NEB SCH ×4 (07:28→19:21)
--- NOTE | 2022-02-17 08:31 | Communication Note ---
Date of Service: February 17, 2022 Patient is a 67 yo male in the ICU due to respiratory failure due to aspiration. He is on pressor support at present. Given his history of esophageal stricture, he will need an EGD however would advise alternative means of nutrition until patient is stable enough for EGD.
[2022-02-17] MEDS: levoFLOXacin/D5W 750 MG/150 ML BAG IV SCH (08:33)
[2022-02-17] MEDS: UMECLIDINIUM/VILANTEROL 62.5/25MCG 7 PUFFS/INHALER INH SCH (08:33)
[2022-02-17] MEDS: FLUTICASONE FUROATE 100MCG 14 PUFFS/INHALER INH SCH (08:33)
[2022-02-17] MEDS: PANTOprazole 40 MG in SYRINGE 0 ML IV SCH ×2 (08:33→21:07)
--- NOTE | 2022-02-17 08:50 | Nephrology Progress Note ---
Date of Service February 17, 2022 Assessment & Plan (1) Hypernatremia: Plan: * Possible CDI related to acute illness. Patient did require one 4 mcg dose of DDAVP 02/15/22. Yesterday UO was only 1075 cc and hypernatremia has corrected * Will continue to monitor PRP, UO (2) MP (acute kidney injury): Plan: * Probable ATN related to sepsis - resolved (3) Sepsis: Plan: * Recurrent aspiration pneumonia * Remains on broad spectrum antibiotics Admission and Anticipated Discharge Date Admission Date: February 10, 2022 Subjective Mr. Luther was evaluated in the ICU this morning. He was breathing comforta martin on 2 L O2 via NC. Pressors had been stopped. He indicated that they are preparing to transfer him to the 4th floor medical wing today Review of Systems Constitutional: no fever Eyes: no problem reported Ear, Nose, Mouth, Throat: no problem reported Respiratory: + cough Cardiovascular: no chest pain Gastrointestinal: no abdominal pain Physical Exam Constitutional: not in distress Eyes: PERRL, conjunctivae normal, anicteric sclerae ENMT: Mouth: + dry oral mucous membranes Neck: trachea midline, no thyromegaly Respiratory: no respiratory distress Auscultation: + rhonchi Cardiovascular: RRR, no murmur, no edema Gastrointestinal (Abdomen): Inspection/Auscultation: abdomen normal to inspection Percussion/Palpation: abdomen soft; abdomen nontender and no guarding Neurologic: awake Results & Data ([facility]) Vital Signs (Past 12 Hours) Vital Signs Temp Pulse Pulse Resp BP Pulse Ox O2 Del Method 02/17/22 07:53 77 18 100 Nasal Cannula 02/17/22 03:30 36.7 C 69 18 100 02/17/22 03:15 36.7 C 68 20 70 L 02/17/22 03:00 36.7 C 71 19 100 02/17/22 03:00 145/81 H 02/17/22 02:45 36.7 C 71 17 100 02/17/22 02:30 36.8 C 70 14 100 02/17/22 02:15 36.8 C 71 23 100 02/17/22 02:01 155/80 H 02/17/22 02:01 36.8 C 77 16 100 02/17/22 02:00 36.8 C 74 13 94 02/17/22 01:45 36.8 C 74 19 100 02/17/22 01:30 36.8 C 72 16 93 02/17/22 01:15 36.8 C 74 7 L 100 02/17/22 01:00 36.8 C 78 16 100 02/17/22 01:00 154/97 H 02/17/22 00:45 36.8 C 78 23 99 02/17/22 00:30 36.8 C 72 14 99 02/17/22 00:15 36.8 C 74 24 100 02/17/22 00:01 128/70 02/17/22 00:01 36.9 C 75 23 87 L 02/17/22 00:00 36.8 C 79 18 82 L 02/16/22 23:45 36.8 C 77 11 L 96 02/16/22 23:30 36.8 C 82 22 93 02/16/22 23:15 36.9 C 75 6 L 98 02/16/22 23:00 36.9 C 79 13 100 02/16/22 23:00 155/84 H 02/16/22 22:45 36.9 C 80 15 84 L 02/16/22 22:30 36.9 C 79 26 H 100 02/16/22 22:15 36.9 C 78 24 100 02/17/22 00:09 75 02/16/22 22:00 36.9 C 77 24 97 02/16/22 22:00 171/84 H 02/16/22 21:45 36.9 C 79 19 99 02/16/22 21:30 36.9 C 76 17 92 02/16/22 21:15 36.8 C 79 27 H 97 02/16/22 21:00 36.8 C 76 12 98 02/16/22 21:00 160/83 H O2 Flow Rate 02/17/22 07:53 2 02/17/22 03:30 02/17/22 03:15 02/17/22 03:00 02/17/22 03:00 02/17/22 02:45 02/17/22 02:30 02/17/22 02:15 02/17/22 02:01 02/17/22 02:01 02/17/22 02:00 02/17/22 01:45 02/17/22 01:30 02/17/22 01:15 02/17/22 01:00 02/17/22 01:00 02/17/22 00:45 02/17/22 00:30 02/17/22 00:15 02/17/22 00:01 02/17/22 00:01 02/17/22 00:00 02/16/22 23:45 02/16/22 23:30 02/16/22 23:15 02/16/22 23:00 02/16/22 23:00 02/16/22 22:45 02/16/22 22:30 02/16/22 22:15 02/17/22 00:09 02/16/22 22:00 02/16/22 22:00 02/16/22 21:45 02/16/22 21:30 02/16/22 21:15 02/16/22 21:00 02/16/22 21:00 Laboratory Results Laboratory Tests 02/17/22 02/17/22 04:32 04:50 Sodium 141 Potassium 3.3 L Chloride 101 Carbon Dioxide 33 H BUN 10 Creatinine 0.74 D Glucose 111 H Calcium 8.4 L Phosphorus 2.7 Magnesium 1.9 AST 13 ALT 8 Alkaline Phosphatase 49 Albumin 3.2 L Urine Osmolality 635 PG Care Time/CCT Total # of Minutes Spent Total Time Spent with Patient: Total time spent is greater than 50% in coordination of care (as documented) at patient's floor/unit and/or counseling patient: Coding Level of Care Code 87023 Subseq Hosp Care Lvl 3 Diagnoses Hypernatremia E87.0 MP (acute kidney injury) N17.9 Sepsis A41.9 Acute renal failure type: unspecified Sepsis acute organ dysfunction status: with acute organ dysfunction Sepsis type: sepsis due to unspecified organism Severe sepsis acute organ dysfunction type: acute renal failure (1) Sepsis Acute renal failure type: unspecified Sepsis acute organ dysfunction status: with acute organ dysfunction Sepsis type: sepsis due to unspecified organism Severe sepsis acute organ dysfunction type: acute renal failure
[2022-02-17] MEDS: LINEZOLID 600 MG/300 ML BAG IV SCH ×2 (10:35→23:56)
[2022-02-17] MEDS: D5W AND 1/2NSS + 20MEQ KCL 20 MEQ/1,000 ML BAG IV SCH (20:10)
[2022-02-17] MEDS: dexAMETHasone 6 MG in SYRINGE 0 ML IV SCH (21:07)
--- NOTE | 2022-02-17 21:14 | Hospitalist Progress Note ---
Date of Service February 17, 2022 Assessment & Plan (1) Acute respiratory failure with hypoxia and hypercapnia: Plan: 2nd to aspiration event/aspiration pneumonia. Resolved. BIPAP and O2 weaned off fully; now in room air. Cont IV abx for pneumonia. (2) Shock: Plan: RESOLVED. Was combination of adrenal shock + septic shock. Can't rule out element of anaphylaxis given his stridor, rash, and eosinophilia the day of his decompensation (02/16). Continue fluids. Continue steroids. Continue antibiotics. (3) Drug reaction: Plan: Was on both zosyn + vanco IV when this reaction occurred. Question of previous vanco allergy. Both zosyn and vanco stopped. Rash improving with IV steroids. Cont supportive care. (4) Aspiration pneumonia: Plan: Clinically improved. 2nd to dysphagia from esophageal stricture? 2nd to dysphagia from prior stroke(s)? Cont Levaquin/zyvox (levaquin to cover stenotrophomonas, zyvox for MRSA coverage). Day #2 of each. Plan 7 day course. Of note - patient is MRSA+ from the nares. (5) Acute metabolic encephalopathy: Plan: 2nd to hypercarbia, sepsis, shock, etc. Resolved. (6) Sepsis: Plan: 2nd to aspiration pneumonia. can't rule out RLE cellulitis contributing either. Blood cultures from admission negative. Repeat blood cultures from 02/16 negative. Urine culture negative. (7) MP (acute kidney injury): Plan: Creatinine 1.89 at time of admission. Sepsis-associated ATN. Creatinine has normalized. See below regarding hypernatremia. Appreciate nephrology consultation. (8) COPD (chronic obstructive pulmonary disease) with chronic bronchitis: Plan: Now with exacerbation. Cont nebs. Cont steroids, but change from hydrocortisone to dexamethasone. Will Rx with 6mg BID. Cont Abx for #4. (9) Adrenal insufficiency: Plan: Received IV hydrocortisone for stress-dose steroids early in his stay, then weaned back to usual home doses. With shock on 02/16 placed back on high-dose hydrocortisone. Now weaning the hydrocortisone. Change steroids to dexamethasone. (10) Hypoglycemia: Plan: 2nd to adrenal insufficiency, sepsis, poor PO intake, etc. Resolved. BSGs wnl. (11) Dysphagia: Plan: s/p video swallow with aspiration. Appreciate speech therapy consult. Appreciate GI consult. Was to have EGD 02/16 for esophageal stricture dilatation but deferred due to shock/resp failure. Cont PPI twice daily. Timing of EGD uncertain. (12) CKD (chronic kidney disease) stage 2, GFR 60-89 ml/min: Plan: Cont gallegos BMP stable repeat BMP in am (13) Benign prostate hyperplasia: Plan: Hold Avodart Hold Tamsulosin (14) Elevated troponin: Plan: likely myocardial demand ischemia in setting of sepsis, MP, etc. no evidence of ACS (15) Recurrent left pleural effusion: Plan: s/p thoracentesis last admission with trapped lung present fluid studies c/w exudative effusion but cytologies were NEGATIVE PULM did not recommend further thoracentesis Cont to follow (16) Hypokalemia: Plan: replaced this am via ICU protocol repeat BMP am mag level today wnl (17) History of stroke: Plan: resume ASA, Plavix when able uses wheelchair at baseline, does not ambulate has known bilateral ICA occlusion but with collaterals (18) Cellulitis, leg: Plan: RLE mild, ongoing - but looks better today abx for pneumonia will suffice (19) Hypernatremia: Plan: 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 appreciate nephrology assistance defer vasopressin Rx to nephrology serial BMPs Na level today wnl (20) Otitis externa: Plan: previous culture- 01/12/22 Org 1 = Staph aureus MRSA Org 2 = Stenotrophomonas maltophilia Org 3 = Staphylococcus aureus stable at this time (21) Hypomagnesemia: Plan: repleted/resolved (22) DVT prophylaxis: Plan: heparin 5000 TID Plan resume IV fluids - D5 1/2 NS with KCL brother updated at bedside Admission and Anticipated Discharge Date Admission Date: February 10, 2022 Subjective patient feeling better today during my visit the pt's brother was at bedside he reports that his brother's voice is always hoarse/dysarthric but it is worse than baseline patient continues with cough and some sputum production denies dyspnea at rest tele overnight wnl Review of Systems Review of Systems: gen - no fevers cv - no chest pain pulm - wheezing/coughing GI - no abd pain, no nausea, no emesis skin - no pruritis Physical Exam Physical Exam: gen - much more awake, alert; dysarthric speech but able to speak in full, coherent sentences; coughing neck - no JVD mouth - MMM voice - hoarse heart - RRR, s1 s2, no murmur lungs - stridor resolved; diffuse exp wheezing b/l, no rales; decreased BS left base abd - soft NT ND BS+ ext - 1-2+ b/l pulses, no edema skin - cellulitis RLE improved; diffuse erythematous rash torso, back, arms, legs - improved psych - a/o x 3 Results & Data Results & Data ([facility]) Vital Signs (Past 12 Hours) Vital Signs Temp Pulse Pulse Resp BP BP Pulse Ox 02/17/22 19:21 74 14 90 02/17/22 19:03 36.7 C 71 18 155/74 H 95 02/17/22 17:20 02/17/22 16:18 36.6 C 71 18 169/84 H 96 02/17/22 15:05 76 18 90 02/17/22 13:01 35.5 C L 76 18 89 L 02/17/22 13:01 128/95 02/17/22 13:00 35.5 C L 76 19 93 02/17/22 12:00 35.7 C L 73 24 94 02/17/22 12:00 156/101 H 02/17/22 11:00 35.6 C L 74 14 92 02/17/22 11:00 136/82 02/17/22 12:15 73 16 90 02/17/22 10:45 147/94 H 02/17/22 10:45 36.5 C 77 18 90 02/17/22 10:00 79 23 O2 Del Method 02/17/22 19:21 Room Air 02/17/22 19:03 Room Air 02/17/22 17:20 Room Air 02/17/22 16:18 Room Air 02/17/22 15:05 Room Air 02/17/22 13:01 02/17/22 13:01 02/17/22 13:00 02/17/22 12:00 02/17/22 12:00 02/17/22 11:00 02/17/22 11:00 02/17/22 12:15 Room Air 02/17/22 10:45 02/17/22 10:45 Room Air 02/17/22 10:00 Laboratory Results Laboratory Results - last 24 hr 02/17/22 02/17/22 02/17/22 04:32 04:50 10:38 Sodium 141 Potassium 3.3 L Chloride 101 Carbon Dioxide 33 H Anion Gap 7 BUN 10 Creatinine 0.74 D Est Cr Clr Drug Dosing 95.5 Est GFR ( Amer) 109.8 Est GFR (Non-Af Amer) 94.8 BUN/Creatinine Ratio 13.5 Glucose 111 H POC Glucose 122 H Calcium 8.4 L Phosphorus 2.7 Magnesium 1.9 Total Bilirubin 0.5 AST 13 ALT 8 Alkaline Phosphatase 49 Total Protein 6.2 Albumin 3.2 L Globulin 3.0 Albumin/Globulin Ratio 1.1 Urine Osmolality 635 02/17/22 02/17/22 10:55 18:08 Sodium Potassium Chloride Carbon Dioxide Anion Gap BUN Creatinine Est Cr Clr Drug Dosing Est GFR ( Amer) Est GFR (Non-Af Amer) BUN/Creatinine Ratio Glucose POC Glucose 112 H Calcium Phosphorus Magnesium Total Bilirubin AST ALT Alkaline Phosphatase Total Protein Albumin Globulin Albumin/Globulin Ratio Urine Osmolality 577 Diagnostic Findings blood/urine cx's negative to date PG Care Time/CCT Total # of Minutes Spent Total Time Spent with Patient: Total time spent is greater than 50% in coordination of care (as documented) at patient's floor/unit and/or counseling patient: Coding Level of Care Code 22039 Subseq Hosp Care Lvl 3 Diagnoses Acute respiratory failure with hypoxia and hypercapnia J96.01; J96.02 Shock R57.9 Drug reaction T50.905A Aspiration pneumonia J69.0 Acute metabolic encephalopathy G93.41 Sepsis A41.9 MP (acute kidney injury) N17.9 COPD (chronic obstructive pulmonary disease) with chronic bronchitis J44.9 Adrenal insufficiency E27.40 Hypoglycemia E16.2 Dysphagia R13.10 CKD (chronic kidney disease) stage 2, GFR 60-89 ml/min N18.2 Benign prostate hyperplasia N40.0 Elevated troponin R77.8 Recurrent left pleural effusion J90 Hypokalemia E87.6 History of stroke Z86.73 Cellulitis, leg L03.119 Hypernatremia E87.0 Otitis externa H60.90 Hypomagnesemia E83.42 DVT prophylaxis Z29.9
[2022-02-18] MEDS: INSULIN ASPART PER UNIT SC SCH ×4 (00:12→18:30)
[2022-02-18] MEDS: HEPARIN SOD 5,000 UNIT/0.5 ML VIAL SQ SCH ×3 (06:25→21:26)
--- NOTE | 2022-02-18 06:30 | Electrocardiogram Report ---
Test Reason : Blood Pressure : / mmHG Vent. Rate : 074 BPM Atrial Rate : 074 BPM P-R Int : 130 ms QRS Dur : 074 ms QT Int : 366 ms P-R-T Axes : 000 -20 -15 degrees QTc Int : 406 ms Normal sinus rhythm Cannot rule out Anterior infarct , age undetermined Nonspecific T wave abnormality Abnormal ECG When compared with ECG of 16-FEB-2022 10:11, QT has shortened Confirmed by Sonido Garcia ([id number] on 02/18/2022 6:30:34 AM Referred By: REFERRED SELF Confirmed By:Sonido Garcia
[2022-02-18] MEDS: ALBUTEROL 0.083% NEBU SOLN 3 ML VIAL NEB SCH ×4 (07:14→19:10)
[2022-02-18 07:18] LABS: BUN Creatinine Ratio 12.5 (10-20); Calcium 8.4 mg/dl (8.5-10.1); Creatinine Clr Calc Pharmacy 98.2 ml/min; Est GFR (African American) 111.1 ml/min; Est GFR (Non-African American) 95.9 ml/min; Potassium 2.8 mmol/L (3.5-5.1)
[2022-02-18 07:27] LABS: Hematocrit (blood only) 31.3 % (40.1-51.0); Hemoglobin 10.3 g/dl (14.0-18.0); Mean Corpuscular Hemoglobin 26.3 pg (25.0-34.0); Mean Corpuscular Hgb Conc 32.9 g/dL (32.0-36.0); Mean Corpuscular Volume 80.1 fL (80.0-100.0); Mean Platelet Volume 10.6 fL (9.4-12.4); Platelet Count 250 K/uL (130-400); RDW Coefficient of Variation 19.6 % (11.5-14.5); RDW Standard Deviation 55.5 fL (36.4-46.3); Red Blood Count 3.91 M/uL (4.63-6.08); White Blood Count 11.35 K/ul (4.8-10.8)
[2022-02-18] MEDS: dexAMETHasone 6 MG in SYRINGE 0 ML IV SCH ×2 (08:27→21:23)
[2022-02-18] MEDS: UMECLIDINIUM/VILANTEROL 62.5/25MCG 7 PUFFS/INHALER INH SCH (08:27)
[2022-02-18] MEDS: PANTOprazole 40 MG in SYRINGE 0 ML IV SCH ×2 (08:27→21:23)
[2022-02-18] MEDS: FLUTICASONE FUROATE 100MCG 14 PUFFS/INHALER INH SCH (08:27)
--- NOTE | 2022-02-18 08:44 | Nephrology Progress Note ---
Date of Service February 18, 2022 Assessment & Plan (1) Hypernatremia: Plan: * CDI related to acute illness - resolved * Patient did require one 4 mcg dose of DDAVP 02/15/22 * I&O's have been matched last 48 hrs. Uosm has been appropriately elevated. Hypernatremia has corrected * Recommend supplementing serum K * No further Nephrology testing indicated at this time. Will sign off. Please call if further assistance is needed (2) MP (acute kidney injury): Plan: * Probable ATN related to sepsis - resolved (3) Sepsis: Plan: * Recurrent aspiration pneumonia * Remains on broad spectrum antibiotics Admission and Anticipated Discharge Date Admission Date: February 10, 2022 Subjective Mr. Luther was evaluated in his hospital room this morning. He was breathing comfortably on RA. Swartz catheter remains in place. I&O's matched last 24 hours Review of Systems Constitutional: no fever Eyes: no problem reported Ear, Nose, Mouth, Throat: no problem reported Respiratory: + cough Cardiovascular: no chest pain Gastrointestinal: no abdominal pain Physical Exam Constitutional: not in distress Eyes: PERRL, conjunctivae normal, anicteric sclerae ENMT: external ear and nose normal, oropharynx normal Neck: trachea midline, no thyromegaly Respiratory: no respiratory distress Auscultation: + rhonchi Cardiovascular: RRR, no murmur, no edema Gastrointestinal (Abdomen): Inspection/Auscultation: abdomen normal to inspection Percussion/Palpation: abdomen soft; abdomen nontender and no guarding Neurologic: awake Results & Data ([facility]) Vital Signs (Past 12 Hours) Vital Signs Temp Pulse Pulse Resp BP BP Pulse Ox 02/18/22 08:25 36.6 C 70 18 168/76 H 94 02/18/22 07:14 69 16 91 02/17/22 21:15 02/18/22 00:00 76 02/17/22 23:14 136/82 02/17/22 23:10 36.6 C 78 18 175/84 H 90 O2 Del Method 02/18/22 08:25 Room Air 02/18/22 07:14 Room Air 02/17/22 21:15 Room Air 02/18/22 00:00 02/17/22 23:14 02/17/22 23:10 Laboratory Results Laboratory Tests 02/18/22 02/18/22 06:13 06:13 WBC 11.35 H Hgb 10.3 L Hct 31.3 L Plt Count 250 Sodium 137 Potassium 2.8 L Chloride 98 Carbon Dioxide 32 BUN 9 Creatinine 0.72 Glucose 151 H Calcium 8.4 L Magnesium 2.0 Laboratory Tests 02/17/22 10:55 Urine Osmolality 577 PG Care Time/CCT Total # of Minutes Spent Total Time Spent with Patient: Total time spent is greater than 50% in coordination of care (as documented) at patient's floor/unit and/or counseling patient: Coding Level of Care Code 21935 Subseq Hosp Care Lvl 3 Diagnoses Hypernatremia E87.0 MP (acute kidney injury) N17.9 Sepsis A41.9 Acute renal failure type: unspecified Sepsis acute organ dysfunction status: with acute organ dysfunction Sepsis type: sepsis due to unspecified organism Severe sepsis acute organ dysfunction type: acute renal failure (1) Sepsis Acute renal failure type: unspecified Sepsis acute organ dysfunction status: with acute organ dysfunction Sepsis type: sepsis due to unspecified organism Severe sepsis acute organ dysfunction type: acute renal failure
[2022-02-18] MEDS: D5W AND 1/2NSS + 20MEQ KCL 20 MEQ/1,000 ML BAG IV SCH (10:36)
[2022-02-18] MEDS: levoFLOXacin/D5W 750 MG/150 ML BAG IV SCH (11:12)
[2022-02-18] MEDS: POTASSIUM CHLORIDE / WTR 10 MEQ/100 ML PLCT IV SCH ×7 (12:32→23:03)
[2022-02-18] MEDS: NICOTINE 21 MG/24 HR TDSY TD SCH (17:24)
[2022-02-18] MEDS: METOPROLOL TARTRATE 1 MG/ML VIAL IV SCH (21:23)
--- NOTE | 2022-02-18 21:43 | Hospitalist Progress Note ---
Date of Service February 18, 2022 Assessment & Plan (1) Acute respiratory failure with hypoxia and hypercapnia: Plan: 2nd to aspiration event/aspiration pneumonia. Resolved. BIPAP and O2 weaned off fully; now in room air 2+ days. Cont IV abx for pneumonia. (2) Shock: Plan: RESOLVED. Was combination of adrenal shock + septic shock. May have had an element of anaphylaxis given his stridor, rash, and eosinophilia the day of his decompensation (02/16). Likely IV vanco allergy. Now hypertensive - see below. (3) Drug reaction: Plan: Was on both zosyn + vanco IV when this reaction occurred. Question of previous vanco allergy. Both zosyn and vanco stopped. Suspect vanco was culprit. Rash nearly resolved with steroids & time. Cont supportive care. (4) Aspiration pneumonia: Plan: Clinically improved. 2nd to dysphagia from esophageal stricture? 2nd to dysphagia from prior stroke(s)? Combination of factors? Cont Levaquin/zyvox (levaquin to cover stenotrophomonas, zyvox for MRSA coverage). Day #3 of each. Plan 7 day course. Of note - patient is MRSA+ from the nares. (5) Acute metabolic encephalopathy: Plan: 2nd to hypercarbia, sepsis, shock, etc. Resolved. (6) Sepsis: Plan: 2nd to aspiration pneumonia. can't rule out RLE cellulitis contributing either. Blood cultures from admission negative. Repeat blood cultures from 02/16 negative. Urine culture negative. (7) MP (acute kidney injury): Plan: Creatinine 1.89 at time of admission. Sepsis-associated ATN. Creatinine has normalized. (8) COPD (chronic obstructive pulmonary disease) with chronic bronchitis: Plan: With exacerbation. Cont nebs. Cont IV dexamethasone 6mg BID. Cont Abx for #4. (9) Adrenal insufficiency: Plan: Received IV hydrocortisone for stress-dose steroids early in his stay, then weaned back to usual home doses. With shock on 02/16 placed back on high-dose hydrocortisone. Changed steroids to dexamethasone on 02/17 due to COPD flare. (10) Hypoglycemia: Plan: 2nd to adrenal insufficiency, sepsis, poor PO intake, etc. Resolved. BSGs wnl. (11) Dysphagia: Plan: s/p video swallow with aspiration. Appreciate speech therapy consult. Appreciate GI consult. Was to have EGD 02/16 for esophageal stricture dilatation but deferred due to shock/resp failure. Cont PPI twice daily. Timing of EGD uncertain. From medical standpoint should be able to have such tomorrow on 02/19 but defer final decision to GI & anesthesia. (12) CKD (chronic kidney disease) stage 2, GFR 60-89 ml/min: Plan: Cont gallegos for now but encouraged him that we take it out soon BMP stable repeat BMP in am (13) Benign prostate hyperplasia: Plan: Hold Avodart Hold Tamsulosin resume when able to take PO (14) Elevated troponin: Plan: likely myocardial demand ischemia in setting of sepsis, MP, etc. no evidence of ACS (15) Recurrent left pleural effusion: Plan: s/p thoracentesis last admission with trapped lung present fluid studies c/w exudative effusion but cytologies were NEGATIVE PULM did not recommend further thoracentesis Cont to follow (16) Hypokalemia: Plan: severe s/p IV replacement repeat level still low this evening - ordered additional IV replacement repeat BMP am (17) History of stroke: Plan: resume ASA, Plavix when able uses wheelchair at baseline, does not ambulate has known bilateral ICA occlusion but with collaterals (18) Cellulitis, leg: Plan: RLE resolved (19) Hypernatremia: Plan: 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 appreciate nephrology assistance defer vasopressin Rx to nephrology serial BMPs Na level today again wnl (20) Otitis externa: Plan: previous culture- 01/12/22 Org 1 = Staph aureus MRSA Org 2 = Stenotrophomonas maltophilia Org 3 = Staphylococcus aureus resolved (21) Hypomagnesemia: Plan: repleted/resolved (22) DVT prophylaxis: Plan: heparin 5000 TID hold tomorrow if having EGD (23) Hypertension: Plan: add lopressor 5mg IV q6h steroids likely contributing to such Plan cont D5 1/2 NS with KCL fluids while NPO brother updated at bedside yesterday left message for pt's sister on her voicemail this evening Admission and Anticipated Discharge Date Admission Date: February 10, 2022 Subjective patient without complaints cough improved did have 1 episode where he got yellow sputum up & out less wheezing no dyspnea at rest remains in room air tele overnight wnl no abd pain, nausea or emesis Review of Systems Review of Systems: gen - no fever cv - no orthopnea pulm - no dyspnea - has gallegos, declines having it taken out Physical Exam Physical Exam: gen - dysarthric speech unchanged; able to speak in full, coherent sentences; occasional cough; awake/alert neck - no JVD mouth - MMM voice - hoarse heart - RRR, s1 s2, no murmur lungs - stridor resolved; exp wheezing b/l improved today; airation good, no rales; decreased BS left base abd - soft NT ND BS+ ext - 1-2+ b/l pulses, no edema skin - cellulitis RLE resolved; diffuse erythematous rash torso, back, arms, legs - nearly resolved today psych - a/o x 3 Results & Data Results & Data ([facility]) Vital Signs (Past 12 Hours) Vital Signs Temp Pulse Pulse Resp BP BP Pulse Ox 02/18/22 21:23 76 168/79 H 02/18/22 18:56 36.6 C 73 22 181/88 H 91 02/18/22 19:11 69 17 94 02/18/22 14:25 78 02/18/22 15:45 36.5 C 72 20 169/87 H 96 02/18/22 15:16 72 16 97 02/18/22 11:55 36.4 C L 70 20 153/87 H 91 02/18/22 11:06 67 16 91 O2 Del Method FiO2 02/18/22 21:23 02/18/22 18:56 Room Air 02/18/22 19:11 Room Air 02/18/22 14:25 02/18/22 15:45 Room Air 02/18/22 15:16 Room Air 02/18/22 11:55 Room Air 02/18/22 11:06 Room Air Laboratory Results Laboratory Results - last 24 hr 02/17/22 02/18/22 02/18/22 23:56 06:13 06:13 WBC 11.35 H RBC 3.91 L Hgb 10.3 L Hct 31.3 L MCV 80.1 D MCH 26.3 MCHC 32.9 RDW Std Deviation 55.5 H RDW Coeff of Raul 19.6 H Plt Count 250 MPV 10.6 Sodium 137 Potassium 2.8 L Chloride 98 Carbon Dioxide 32 Anion Gap 7 BUN 9 Creatinine 0.72 Est Cr Clr Drug Dosing 98.2 Est GFR ( Amer) 111.1 Est GFR (Non-Af Amer) 95.9 BUN/Creatinine Ratio 12.5 Glucose 151 H POC Glucose 136 H Calcium 8.4 L Magnesium 2.0 02/18/22 02/18/22 02/18/22 06:29 09:21 12:19 WBC RBC Hgb Hct MCV MCH MCHC RDW Std Deviation RDW Coeff of Raul Plt Count MPV Sodium Potassium Chloride Carbon Dioxide Anion Gap BUN Creatinine Est Cr Clr Drug Dosing Est GFR ( Amer) Est GFR (Non-Af Amer) BUN/Creatinine Ratio Glucose POC Glucose 150 H 126 H 135 H Calcium Magnesium 02/18/22 02/18/22 17:42 18:08 WBC RBC Hgb Hct MCV MCH MCHC RDW Std Deviation RDW Coeff of Raul Plt Count MPV Sodium Potassium 3.0 L Chloride Carbon Dioxide Anion Gap BUN Creatinine Est Cr Clr Drug Dosing Est GFR ( Amer) Est GFR (Non-Af Amer) BUN/Creatinine Ratio Glucose POC Glucose 129 H Calcium Magnesium PG Care Time/CCT Total # of Minutes Spent Total Time Spent with Patient: Total time spent is greater than 50% in coordination of care (as documented) at patient's floor/unit and/or counseling patient: Coding Level of Care Code 73372 Subseq Hosp Care Lvl 2 Diagnoses Acute respiratory failure with hypoxia and hypercapnia J96.01; J96.02 Shock R57.9 Drug reaction T50.905A Aspiration pneumonia J69.0 Acute metabolic encephalopathy G93.41 Sepsis A41.9 MP (acute kidney injury) N17.9 COPD (chronic obstructive pulmonary disease) with chronic bronchitis J44.9 Adrenal insufficiency E27.40 Hypoglycemia E16.2 Dysphagia R13.10 CKD (chronic kidney disease) stage 2, GFR 60-89 ml/min N18.2 Benign prostate hyperplasia N40.0 Elevated troponin R77.8 Recurrent left pleural effusion J90 Hypokalemia E87.6 History of stroke Z86.73 Cellulitis, leg L03.119 Hypernatremia E87.0 Otitis externa H60.90 Hypomagnesemia E83.42 DVT prophylaxis Z29.9 Hypertension I10
[2022-02-19] MEDS: METOPROLOL TARTRATE 1 MG/ML VIAL IV SCH ×5 (00:15→23:03)
[2022-02-19] MEDS: INSULIN ASPART PER UNIT SC SCH ×4 (00:17→17:59)
[2022-02-19] MEDS: POTASSIUM CHLORIDE / WTR 10 MEQ/100 ML PLCT IV SCH (00:22)
[2022-02-19] MEDS ORDERED: ACETAMINOPHEN 1,000 MG/100 ML VIAL IV PRN (01:44)
[2022-02-19] MEDS: HEPARIN SOD 5,000 UNIT/0.5 ML VIAL SQ SCH (06:08)
[2022-02-19] MEDS: ALBUTEROL 0.083% NEBU SOLN 3 ML VIAL NEB SCH ×5 (07:24→19:19)
[2022-02-19] MEDS: hydrALAZINE HCL 20 MG/ML VIAL IV SCH ×3 (08:42→17:47)
[2022-02-19] MEDS: dexAMETHasone 4 MG in SYRINGE 0 ML IV SCH ×2 (08:42→20:03)
[2022-02-19] MEDS: PANTOprazole 40 MG in SYRINGE 0 ML IV SCH ×2 (08:43→20:03)
[2022-02-19] MEDS: UMECLIDINIUM/VILANTEROL 62.5/25MCG 7 PUFFS/INHALER INH SCH (08:43)
[2022-02-19] MEDS: FLUTICASONE FUROATE 100MCG 14 PUFFS/INHALER INH SCH (08:44)
[2022-02-19 09:00] LABS: BUN Creatinine Ratio 11.4 (10-20); Calcium 9.3 mg/dl (8.5-10.1); Creatinine Clr Calc Pharmacy 80.3 ml/min; Est GFR (African American) 102.3 ml/min; Est GFR (Non-African American) 88.3 ml/min; Magnesium 2.3 mg/dl (1.7-2.4); Potassium 3.8 mmol/L (3.5-5.1)
--- NOTE | 2022-02-19 09:48 | Gastroenterology Progress Note ---
Date of Service February 19, 2022 Assessment & Plan (1) Dysphagia: Plan: -Keep NPO for EGD today -Continue Protonix 40 mg BID Admission and Anticipated Discharge Date Admission Date: February 10, 2022 Supervising Physician Co-Signing Physician Notes Agree with SANDRA Lo as above Abd: Soft, NT, ND, +BS Continue current therapy and supportive care Proceed with EGD now Subjective Patient is a 67 yo male with dysphagia, aspiration pneumonia, & repeated es ophageal dilatations due to stricture. He was recently transferred to the ICU due to respiratory failure. He is now off of Bipap and saturating at 95% on room air. He has been NPO. He denies other concerns. Review of Systems Constitutional: + fatigue Respiratory: + cough Gastrointestinal: + dysphagia; no abdominal pain Physical Exam Constitutional: well developed Respiratory: normal respiratory effort Cardiovascular: Rate/Rhythm: regular rate Gastrointestinal (Abdomen): Inspection/Auscultation: abdomen normal to inspection Psychiatric: Orientation: alert and oriented x 3 Results & Data Results & Data ([facility]) Vital Signs (Past 12 Hours) Vital Signs Temp Pulse Pulse Resp BP BP BP 02/19/22 08:00 02/19/22 08:00 63 02/19/22 07:24 55 L 14 02/19/22 07:16 36.5 C 60 18 175/88 H 185/95 H 02/19/22 06:07 62 186/94 H 02/19/22 03:08 36.8 C 61 18 171/76 H 02/19/22 00:00 62 02/19/22 00:15 65 183/82 H 02/18/22 22:09 36.6 C 62 20 159/87 H Pulse Ox O2 Del Method FiO2 02/19/22 08:00 Room Air 02/19/22 08:00 02/19/22 07:24 95 Room Air 21 02/19/22 07:16 94 Room Air 02/19/22 06:07 02/19/22 03:08 97 Room Air 02/19/22 00:00 02/19/22 00:15 02/18/22 22:09 92 Room Air PG Care Time/CCT Total # of Minutes Spent Total Time Spent with Patient: Total time spent is greater than 50% in coordination of care (as documented) at patient's floor/unit and/or counseling patient: Coding Level of Care Code 15087 Subseq Hosp Care Lvl 3 Diagnoses Dysphagia R13.10
[2022-02-19] MEDS: NICOTINE 21 MG/24 HR TDSY TD SCH (10:08)
[2022-02-19] MEDS: levoFLOXacin/D5W 750 MG/150 ML BAG IV SCH (10:30)
--- NOTE | 2022-02-19 12:32 | Anesthesiology Consultation ---
Date of Service February 19, 2022 Assessment & Plan Chart Review Chart Review: Acceptable Risk for Surgery and Patient NOT seen in Pre Admission Testing Consults Requested none ASA ASA4 Proposed Anesthesia Anesthesia Type: MAC History Surgery Operation Date: 02/16/22 16:30 Proposed Procedures p Esophagogastroduodenoscopy Dr. Tomasa Randolph MD Operation Date: 02/19/22 15:00 Proposed Procedures p Esophagogastroduodenoscopy Dr Hayden River Case, Operation Date: 02/19/22 17:00 Proposed Procedures p Esophagogastroduodenoscopy Dr Hayden River Case, DO Height/Weight Height: 5 ft 9 in Weight: 75.9 kg Allergies Allergy/AdvReac Type Severity Reaction Status Date / Time piperacillin [From Zosyn] Allergy Severe Rash Verified 02/17/22 12:08 tazobactam [From Zosyn] Allergy Severe Rash Verified 02/17/22 12:08 vancomycin Allergy Severe Rash Verified 02/17/22 07:39 ciprofloxacin Allergy Mild RASH Verified 02/02/22 11:29 sulfamethoxazole Allergy Unknown Unknown Verified 02/02/22 11:29 [From Bactrim] trimethoprim [From Bactrim] Allergy Unknown Unknown Verified 02/02/22 11:29 Medications Home Medications Medication Instructions Recorded Confirmed Last Taken miscellaneous medical supply #1 ea 08/07/21 01/11/22 Unknown albuterol sulfate 90 mcg/actuation 2 puff inhalation QID PRN 08/13/21 02/02/22 12/16/21 aerosol inhaler (Ventolin HFA) shortness of breath or wheezing #18 grams melatonin 5 mg tablet 5 mg PO HS 08/13/21 02/02/22 10/29/21 clopidogrel 75 mg tablet 75 mg PO QAM 30 days #90 tabs 09/04/21 02/02/22 10/29/21 aspirin 81 mg chewable tablet 81 mg PO QAM 10/01/21 02/02/22 12/17/21 dutasteride 0.5 mg capsule 0.5 mg PO QAM 10/01/21 02/02/22 10/29/21 (Avodart) fluticasone fur. 100 mcg-umeclid 1 inh inhalation QAM 10/01/21 02/02/22 10/29/21 62.5 mcg-vilant 25 mcg inhalat.powder (Trelegy Ellipta) folic acid 1 mg tablet 1,000 mcg PO QAM 10/01/21 02/02/22 10/29/21 tamsulosin 0.4 mg capsule 0.4 mg PO QAM 10/01/21 02/02/22 10/29/21 gabapentin 300 mg capsule 300 mg PO TID 10/22/21 02/02/22 10/29/21 hydrocortisone 10 mg tablet See Rx Instructions .Route 11/04/21 02/02/22 Unknown (Cortef) .COMPLEX #45 tabs polyethylene glycol 3350 17 gram 17 g PO TID #21 ea 11/04/21 02/02/22 Unknown oral powder packet (Miralax) quetiapine 25 mg tablet 25 mg PO HS #0 tabs 11/04/21 02/02/22 10/29/21 sennosides 8.6 mg tablet (Senokot) 8.6 mg PO QAM #7 tabs 11/04/21 02/02/22 Unknown lansoprazole 30 mg capsule,delayed 30 mg PO QAM 01/11/22 02/02/22 Unknown release amoxicillin 875 mg-potassium 1 tab PO BID #7 tabs 01/14/22 02/02/22 Unknown clavulanate 125 mg tablet midodrine 5 mg tablet 5 mg PO TID #90 tabs 01/14/22 02/02/22 Unknown tobramycin 0.3 %-dexamethasone 0.1 1 drp ophthalmic (eye) QID #2.5 mL 01/21/22 02/02/22 Unknown % eye drops,suspension (TobraDex) atorvastatin 40 mg tablet 40 mg PO QAM 90 days #90 tabs 01/29/22 02/02/22 Unknown bupropion HCl 100 mg tablet 100 mg PO QAM #90 tabs 02/09/22 Unknown Active Medications Generic Name Dose Route Start Last Admin Trade Name Shalini PRN Reason Stop Dose Admin Albuterol 2.5 mg 02/16/22 07:00 02/19/22 11:11 Albuterol 0.083% Nebu Soln 3 Ml Vial NEB 03/18/22 06:59 2.5 mg QIDR GERMAN Administration Protocol Fluticasone Furoate 1 puffs 02/11/22 09:00 02/19/22 08:44 Fluticasone Furoate 100mcg 14 Puffs/Inhaler INH 03/13/22 08:59 1 puffs DAILY GERMAN Administration Protocol Heparin Sodium (Beef Lung) 5 ml 02/17/22 00:17 02/17/22 04:39 Heparin 10 Unit/Ml 5 Ml Flush FLUSH 03/19/22 00:16 5 ml PRN PRN Administration Flush Heparin Sodium (Porcine) 5,000 units 02/10/22 14:52 02/19/22 06:08 Heparin Sod 5,000 Unit/0.5 Ml Vial SQ 03/12/22 14:51 5,000 units Q8 GERMAN Administration Hydralazine HCl 5 mg 02/19/22 08:00 02/19/22 08:42 Hydralazine Hcl 20 Mg/Ml Vial IV 03/21/22 07:59 5 mg Q8H GERMAN Administration Levofloxacin/Dextrose 750 mg in 150 mls @ 100 mls/hr 02/16/22 10:00 02/19/22 10:30 Levaquin/D5w IV 02/23/22 09:59 100 mls/hr Q24H GERMAN Administration Pantoprazole Sodium 40 mg/ 10 mls @ 5 mls/min 02/16/22 11:30 02/19/22 08:43 Syringe IV 03/18/22 11:29 5 mls/min BID@0900,2100 GERMAN Administration Potassium Chloride/Dextrose/Sod Cl 20 meq in 1,000 mls @ 75 mls/hr 02/17/22 19:00 02/19/22 11:33 D5w And 1/2nss + 20meq Kcl IV 03/19/22 18:59 75 mls/hr .[id number] GERMAN Infusion Protocol Acetaminophen 1,000 mg in 100 mls @ 400 mls/hr 02/19/22 01:44 02/19/22 02:23 Ofirmev IV 02/22/22 01:43 Infused Q8H PRN Infusion Pain or Fever Dexamethasone 4 mg/ Syringe 1 mls @ 1 mls/min 02/19/22 09:00 02/19/22 08:42 IV 03/21/22 08:59 1 mls/min BID GERMAN Administration Insulin Aspart 0 units 02/18/22 00:00 02/19/22 12:02 Insulin Aspart Per Unit SC 03/20/22 00:00 Not Given Q6 GERMAN Metoprolol Tartrate 5 mg 02/18/22 20:30 02/19/22 11:33 Metoprolol Tartrate 1 Mg/Ml Vial IV 03/20/22 20:29 5 mg Q6 GERMAN Administration Miscellaneous 15 - 30 gm 02/10/22 14:52 02/15/22 08:13 Carbohydrates For Hypoglycemia PO 03/12/22 14:51 15 gm UD PRN Administration Hypoglycemia Protocol Miscellaneous 1 each 02/18/22 16:59 02/19/22 08:42 Remove Nicoderm Patch N/A 03/20/22 16:58 1 each DAILY@0859 GERMAN Administration Nicotine 21 mg 02/18/22 17:00 02/19/22 10:08 Nicotine 21 Mg/24 Hr Tdsy TD 03/20/22 16:59 21 mg QAM GERMAN Administration Umeclidinium/Vilanterol 1 puffs 02/11/22 09:00 02/19/22 08:43 Umeclidinium/Vilanterol 62.5/25mcg 7 Puffs/Inhaler INH 03/13/22 08:59 1 puffs DAILY GERMAN Administration Protocol Past Medical History Medical History Ataxic gait Bacteremia due to methicillin resistant Staphylococcus aureus hx? patient unsure of details Benign prostate hyperplasia Bilateral carotid artery occlusion Bipolar disorder Chlamydial proctitis hx 2018? Confusion poor historian COPD (chronic obstructive pulmonary disease) with chronic bronchitis Esophageal stenosis GERD (gastroesophageal reflux disease) Hepatic steatosis Hiatal hernia History of COVID-19 07/2020 ([facility]) HOSPITALIZED AT [facility] History of esophageal dilatation History of lung cancer (01/2016) 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 History of stroke Hospitalization within last 30 days treated at [facility] for several days -- patient unsure of why he was here? HTN (hypertension) Hypertension Medical marijuana use On anticoagulant therapy plavix daily On home oxygen therapy 3L n/c prn for SOB Osteomyelitis Peripheral arterial disease Peripheral neuropathy Pneumonia possible recent pneumonia? patient unsure. Poor historian Recurrent left pleural effusion s/p thoracentesis August 2018 Restless leg syndrome Schizoaffective disorder Exercise / Class Metabolic Activity IV < 2 Limit ADL/Bedbound Past Family History Family History Brother Myocardial infarction Father Myocardial infarction Other Cancer Family history non-contributory Lung disease No family history of adverse response to anesthesia Denies family history of Tuberculosis Ovarian cancer Prostate cancer Diabetes Heart disease Allergies Breast cancer Emphysema, unspecified Lung cancer Colorectal cancer Asthma Past Surgical History Surgical History H/O foot surgery LEFT HEEL REMOVAL FROM PRESSURE ULCER History of bronchoscopy (01/2016) History of colonoscopy History of esophagogastroduodenoscopy (EGD) with dilation (last12/2021, 11/23/21, 10/2021) History of herniorrhaphy History of lobectomy of lung LOWER LEFT LUNG S/P peripheral artery angioplasty with stent placement (06/2016) [employer], 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 S/P thoracentesis (05/2019) L pleural effusion Status post femorofemoral bypass surgery (06/2016) [place] teeth removed Past Anesthesia History No Hx of Anesthesia Complications and No Family Hx of Anesthesia Complications History of PONV No Hx of PONV and No Hx of Motion Sickness Social History Smoking Status: Former smoker tobacco type: cigarettes Smoking cigarettes per day: 6-8 DAILY Do You Dip or Chew Tobacco: No Hx Alcohol Use: Yes Alcohol type: beer alcohol intake frequency: a few times a week Hx Substance Use: No (medical THC (uses as directed)) substance use type: marijuana Last Used Substance: Days (ago) Physical Exam Vital Signs Last Vital Signs Temp 36.3 C L 02/19/22 11:36 Pulse 61 02/19/22 11:36 Resp 22 02/19/22 11:36 BP 128/70 02/19/22 11:36 Pulse Ox 96 02/19/22 11:36 O2 Del Method 02/19/22 11:36 O2 Flow Rate 2 02/17/22 08:00 FiO2 21 02/19/22 07:24 Testing Laboratory Results 02/18/22 06:13 02/19/22 07:39 PT 12.9 Seconds (9.0-12.0) H 02/10/22 11:20 INR 1.2 (0.9-1.1) H 02/10/22 11:20 APTT 31.9 Seconds (21.0-31.0) H 02/10/22 11:20 Urine Color Yellow 02/10/22 11:42 Urine Appearance Clear (Clear) 02/10/22 11:42 Urine pH 6.5 (4.5-7.5) 02/10/22 11:42 Ur Specific [place] 1.005 (1.000-1.030) 02/10/22 11:42 Urine Protein Negative (Negative) 02/10/22 11:42 Urine Glucose (UA) Negative (Negative) 02/10/22 11:42 Urine Ketones Trace (Negative) H 02/10/22 11:42 Urine Nitrite Negative (Negative) 02/10/22 11:42 Ur Leukocyte Esterase Negative (Negative) 02/10/22 11:42 02/16/22 09:39 Aerobic Blood Culture - Preliminary Blood No growth in Aerobic bottle after 48 hours. Anaerobic Blood Culture - Preliminary No growth in Anaerobic bottle after 48 hours. 02/16/22 09:50 Aerobic Blood Culture - Preliminary Blood No growth in Aerobic bottle after 48 hours. Anaerobic Blood Culture - Preliminary No growth in Anaerobic bottle after 48 hours. 02/16/22 10:55 Urine Culture - Final Urine,Straight Cath No growth - less than 1,000 colonies/mL. 02/10/22 11:45 Aerobic Blood Culture - Final Blood No growth in Aerobic bottle after 5 days. Anaerobic Blood Culture - Final 02/10/22 11:20 Aerobic Blood Culture - Final Blood No growth in Aerobic bottle after 5 days. Anaerobic Blood Culture - Final No growth in Anaerobic bottle after 5 days. 02/10/22 13:15 Gram Stain - Final Sputum, Expectorated Sputum Culture - Final Heavy normal sarah. 02/19/22 02/19/22 11:52 06:03 POC Glucose 129 H 127 H Electrocardiogram Date: 02/17/22 Findings: + NSR @ (@ 74;? anter. infarct,age ?) and + NSST changes Chest X-Ray Date: 02/16/22 Findings: + cardiomegaly, + pulmonary vascular congestion and + pleural effusion (moderate left) Echocardiogram Date: 01/12/22 EF: 65% LV Function: normal RWMA: + none Other Findings: + LVH (mild) and + diastolic dysfunction (grade 1) Valvular Disease: + no significant valvular disease Pulmonary Function Test Date: 02/16/19 mild COPD
[2022-02-19] MEDS ORDERED: ATROPINE SULFATE 0.1 MG/ML 10ML SYR IV PRN (12:56)
[2022-02-19] MEDS ORDERED: ePHEDrine sulfate 50 MG/ML AMP IV PRN (12:56)
[2022-02-19] MEDS ORDERED: KETAMINE 50 MG/5 ML SYRINGE ONE (13:17)
[2022-02-19] MEDS ORDERED: LIDOCAINE 2% MPF LOCAL 5 ML VIAL INFIL ONE (13:17)
[2022-02-19] MEDS ORDERED: PROPOFOL IV EMULSION 10 MG/ML 20 ML VIAL IV ONE (13:17)
--- NOTE | 2022-02-19 14:04 | GI REPORT ---
Patient Name: Roberth Luther Procedure Date: 02/19/2022 1:23 PM Date of : 1955 Admit Type: Inpatient Age: 67 Gender: Male Attending MD: Andres Blake DO Procedure: Upper GI endoscopy Providers: Andres Blake DO Referring MD: Omid Thomson Indications: Dysphagia Medicines: Monitored Anesthesia Care Complications: No immediate complications. Estimated Blood Loss: Estimated blood loss: none. Procedure: Pre-Anesthesia Assessment: - Prior to the procedure, a History and Physical was performed, and patient medications and allergies were reviewed. The patient's tolerance of previous anesthesia was also reviewed. The risks and benefits of the procedure and the sedation options and risks were discussed with the patient. All questions were answered, and informed consent was obtained. Prior Anticoagulants: The patient has taken no previous anticoagulant or antiplatelet agents except for aspirin. ASA Grade Assessment: IV - A patient with severe systemic disease that is a constant threat to life. After reviewing the risks and benefits, the patient was deemed in satisfactory condition to undergo the procedure. After obtaining informed consent, the endoscope was passed under direct vision. Throughout the procedure, the patient's blood pressure, pulse, and oxygen saturations were monitored continuously. The Endoscope was introduced through the mouth, and advanced to the second part of duodenum. The upper GI endoscopy was accomplished without difficulty. The patient tolerated the procedure well. Findings: One benign-appearing, intrinsic moderate stenosis was found. This stenosis measured 1.5 cm (inner diameter) x 4 cm (in length). The stenosis was traversed. Biopsies were taken with a cold forceps for histology. A TTS dilator was passed through the scope. Dilation with a 12-13.5-15 mm balloon dilator was performed to 15 mm. The dilation site was examined and showed mild mucosal disruption. A small hiatal hernia was present. The examined duodenum was normal. Impression: - Benign-appearing esophageal stenosis. Biopsied. Dilated. - Small hiatal hernia. - Normal examined duodenum. Recommendation: - [facility]. - Mechanical soft diet, with safe swallowing strategies as per Speech pathology. - Continue present medications. - Await pathology results. Andres Blake DO 02/19/2022 2:04:24 PM This report has been signed electronically. Note Initiated On: 02/19/2022 1:23 PM Number of Addenda: 0 I attest to the content of the Intraoperative Record and orders documented therein, exceptions below {[id number]}
[2022-02-19] MEDS ORDERED: PHENYLEPHRINE 100MCG/ML 5ML SYR ONE (14:13)
[2022-02-19] MEDS ORDERED: ePHEDrine sulfate 50 MG/ML SYR ONE (14:13)
--- NOTE | 2022-02-19 14:17 | Anesthesiology Progress Note ---
Date of Service February 19, 2022 Anesthesia Post Procedure Vital Signs Vital Signs: Temp Pulse Pulse Pulse Pulse Resp BP 02/19/22 14:01 64 18 02/19/22 12:52 97.2 F L 67 16 02/19/22 11:36 97.3 F L 61 22 02/19/22 11:33 61 128/70 02/19/22 11:12 65 20 02/19/22 08:00 02/19/22 08:00 63 02/19/22 07:24 55 L 14 02/19/22 07:16 97.7 F 60 18 02/19/22 06:07 62 186/94 H 02/19/22 03:08 98.2 F 61 18 02/19/22 00:00 62 02/19/22 00:15 65 183/82 H 02/18/22 20:45 02/18/22 22:09 97.9 F 62 20 02/18/22 21:23 76 168/79 H 02/18/22 18:56 97.9 F 73 22 02/18/22 19:11 69 17 02/18/22 14:25 78 02/18/22 15:45 97.7 F 72 20 02/18/22 15:16 72 16 BP BP Pulse Ox O2 Del Method FiO2 02/19/22 14:01 96/64 L 95 Room Air 02/19/22 12:52 167/94 H 94 Room Air 02/19/22 11:36 128/70 96 Room Air 02/19/22 11:33 02/19/22 11:12 91 Room Air 02/19/22 08:00 Room Air 02/19/22 08:00 02/19/22 07:24 95 Room Air 02/19/22 07:16 175/88 H 185/95 H 94 Room Air 02/19/22 06:07 02/19/22 03:08 171/76 H 97 Room Air 02/19/22 00:00 02/19/22 00:15 02/18/22 20:45 Room Air 02/18/22 22:09 159/87 H 92 Room Air 02/18/22 21:23 02/18/22 18:56 181/88 H 91 Room Air 02/18/22 19:11 94 Room Air 02/18/22 14:25 02/18/22 15:45 169/87 H 96 Room Air 02/18/22 15:16 97 Room Air 21 Transfer of Care Handoff Completed per policy Notes Mental Status: alert / awake / arousable and participated in evaluation Patient Amnestic to Procedure: Yes Nausea / Vomiting: adequately controlled Pain: adequately controlled Airway Patency, RR, SpO2: stable & adequate BP & HR: stable & adequate Hydration State: stable & adequate Anesthetic Complications: no major complications apparent and Pt Satisfied with anesthetic care
[2022-02-19] MEDS: D5W AND 1/2NSS + 20MEQ KCL 20 MEQ/1,000 ML BAG IV SCH ×2 (14:45→23:12)
--- NOTE | 2022-02-19 20:38 | Hospitalist Progress Note ---
Date of Service February 19, 2022 Assessment & Plan (1) Acute respiratory failure with hypoxia and hypercapnia: Plan: 2nd to aspiration event/aspiration pneumonia. Resolved. Required Tx to ICU on Tuesday of this week (02/16) due to such. BIPAP and O2 weaned off fully; now in room air 3+ days. Cont IV abx for pneumonia. NPO due to dysphagia. (2) Shock: Plan: RESOLVED. Was combination of adrenal shock + septic shock. May have had an element of anaphylaxis given his stridor, rash, and eosinophilia the day of his decompensation (02/16). Likely IV vanco allergy. Now hypertensive - see below. (3) Drug reaction: Plan: Was on both zosyn + vanco IV when this reaction occurred. Question of previous vanco allergy. Both zosyn and vanco stopped. Suspect vanco was culprit. Rash nearly resolved with steroids & time. Cont supportive care. (4) Aspiration pneumonia: Plan: Clinically improved. 2nd to dysphagia from esophageal stricture? 2nd to dysphagia from prior stroke(s)? Combination of factors? Cont Levaquin (levaquin to cover stenotrophomonas). Stop zyvox. Day #4 of Levaquin. Plan 7 days of levaquin. (5) Acute metabolic encephalopathy: Plan: 2nd to hypercarbia, sepsis, shock, etc. Resolved. (6) Sepsis: Plan: 2nd to aspiration pneumonia. can't rule out RLE cellulitis having contributed either. Either way sepsis resolved. Blood cultures from admission negative. Repeat blood cultures from 02/16 negative. Urine culture negative. (7) MP (acute kidney injury): Plan: Creatinine 1.89 at time of admission. Sepsis-associated ATN. Creatinine has normalized. (8) COPD (chronic obstructive pulmonary disease) with chronic bronchitis: Plan: With exacerbation. Cont nebs. Cont IV dexamethasone but wean to 4mg BID. Cont Abx for #4. (9) Adrenal insufficiency: Plan: Received IV hydrocortisone for stress-dose steroids early in his stay, then weaned back to usual home doses. With shock on 02/16 placed back on high-dose hydrocortisone. Changed steroids to dexamethasone on 02/17 due to COPD flare. Weaning dex. (10) Hypoglycemia: Plan: 2nd to adrenal insufficiency, sepsis, poor PO intake, etc. Resolved. BSGs wnl. (11) Dysphagia: Plan: s/p video swallow with aspiration of thins earlier this admission. Appreciate speech therapy consult. Appreciate GI consult. s/p EGD today with dilatation of esophageal stenosis. despite the above EGD intervention his bedside swallow eval was very poor today. speech to possibly repeat his video swallow on Tuesday. he ultimately may need feeding tube (j-tube would be best). re-eval on Tuesday; NPO until then. cont IV fluids. (12) CKD (chronic kidney disease) stage 2, GFR 60-89 ml/min: Plan: remove gallegos BMP stable repeat BMP in am (13) Benign prostate hyperplasia: Plan: Hold Avodart Hold Tamsulosin resume when able to take PO or enterally (14) Elevated troponin: Plan: likely myocardial demand ischemia in setting of sepsis, MP, etc. no evidence of ACS (15) Recurrent left pleural effusion: Plan: s/p thoracentesis last admission with trapped lung present fluid studies c/w exudative effusion but cytologies were NEGATIVE PULM did not recommend further thoracentesis Cont to follow (16) Hypokalemia: Plan: severe s/p IV replacement resolved repeat BMP am (17) History of stroke: Plan: resume ASA, Plavix when able uses wheelchair at baseline, does not ambulate has known bilateral ICA occlusion but with collaterals patient and family uncertain of when the stroke occurred in the past (18) Cellulitis, leg: Plan: RLE resolved (19) Hypernatremia: Plan: 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 appreciate nephrology assistance defer vasopressin Rx to nephrology serial BMPs Na level today again wnl cont hypotonic fluids (20) Otitis externa: Plan: previous culture- 01/12/22 Org 1 = Staph aureus MRSA Org 2 = Stenotrophomonas maltophilia Org 3 = Staphylococcus aureus resolved (21) Hypomagnesemia: Plan: repleted/resolved (22) DVT prophylaxis: Plan: heparin 5000 TID held for EGD today resume 02/20 (23) Hypertension: Plan: cont lopressor 5mg IV q6h still high - add hydralazine 5mg TID Plan cont D5 1/2 NS with KCL fluids while NPO brother updated at bedside earlier this week left message for pt's sister on her voicemail yesterday extensively updated pt's son and daughter in law at bedside today total care time activities today 35 min Admission and Anticipated Discharge Date Admission Date: February 10, 2022 Subjective tele overnight wnl patient underwent EGD today by Dr Blake - esophageal stenosis underwent dilatation following EGD he was seen by speech therapy - bedside swallow eval went very poorly they recommended ongoing NPO status except ice chips repeat swallow eval on Tuesday if that goes poorly will need feeding tube during bedside rounds his son from [place] was present we had lengthy conversation about his care plan and the events of the week Review of Systems Review of Systems: gen - no fevers gu - gallegos in place, requests removal cv - no cp pulm - still coughing; occasional sputum; no dyspnea GI - no abd pain Physical Exam Physical Exam: gen - dysarthric speech unchanged; occasional cough; he was eating ice chips and had an overt episode of aspiration during my visit while taking in the ice chips neck - no JVD mouth - MMM voice - hoarse face - right facial droop heart - RRR, s1 s2, no murmur lungs - mild exp wheezing b/l - again improved today; airation good, no rales; decreased BS left base abd - soft NT ND BS+ ext - 1-2+ b/l pulses, no edema skin - cellulitis RLE resolved; diffuse erythematous rash torso, back, arms, legs - nearly resolved, a little residual on his back psych - a/o x 3 Results & Data Results & Data ([facility]) Vital Signs (Past 12 Hours) Vital Signs Temp Pulse Pulse Pulse Pulse Resp BP 02/19/22 19:37 36.4 C L 74 17 02/19/22 19:20 71 18 02/19/22 17:58 72 122/60 02/19/22 17:00 36.4 C L 65 18 02/19/22 15:40 71 17 02/19/22 15:27 73 02/19/22 14:31 69 18 02/19/22 14:16 67 18 02/19/22 14:01 64 18 02/19/22 12:52 36.2 C L 67 16 02/19/22 11:36 36.3 C L 61 02/19/22 11:33 61 128/70 02/19/22 11:12 65 20 BP BP Pulse Ox O2 Del Method FiO2 02/19/22 19:37 162/86 H 96 Room Air 02/19/22 19:20 98 Room Air 21 09/16/22 17:58 02/19/22 17:00 144/60 H 96 Room Air 02/19/22 15:40 98 Room Air 02/19/22 15:27 02/19/22 14:31 137/70 100 Room Air 02/19/22 14:16 118/78 95 Room Air 02/19/22 14:01 96/64 L 95 Room Air 02/19/22 12:52 167/94 H 94 Room Air 02/19/22 11:36 128/70 96 Room Air 02/19/22 11:33 02/19/22 11:12 91 Room Air Laboratory Results Laboratory Results - last 24 hr 02/19/22 02/19/22 02/19/22 00:12 05:15 06:03 Sodium Potassium Chloride Carbon Dioxide Anion Gap BUN Creatinine Est Cr Clr Drug Dosing Est GFR ( Amer) Est GFR (Non-Af Amer) BUN/Creatinine Ratio Glucose POC Glucose 116 H 127 H Calcium Magnesium Procalcitonin Stl C. diff Tox B Gene Negative Cdiff Gene 02/19/22 02/19/22 02/19/22 07:39 11:52 12:16 Sodium 145 Potassium 3.8 D Chloride 105 Carbon Dioxide 35 H Anion Gap 5 BUN 10 Creatinine 0.88 Est Cr Clr Drug Dosing 80.3 Est GFR ( Amer) 102.3 Est GFR (Non-Af Amer) 88.3 BUN/Creatinine Ratio 11.4 Glucose 130 H POC Glucose 129 H Calcium 9.3 Magnesium 2.3 Procalcitonin 0.08 Stl C. diff Tox B Gene 02/19/22 17:50 Sodium Potassium Chloride Carbon Dioxide Anion Gap BUN Creatinine Est Cr Clr Drug Dosing Est GFR ( Amer) Est GFR (Non-Af Amer) BUN/Creatinine Ratio Glucose POC Glucose 117 H Calcium Magnesium Procalcitonin Stl C. diff Tox B Gene PG Care Time/CCT Total # of Minutes Spent Total Time Spent with Patient: Total time spent is greater than 50% in coordination of care (as documented) at patient's floor/unit and/or counseling patient: Coding Level of Care Code 44405 Subseq Hosp Care Lvl 3 Diagnoses Acute respiratory failure with hypoxia and hypercapnia J96.01; J96.02 Shock R57.9 Drug reaction T50.905A Aspiration pneumonia J69.0 Acute metabolic encephalopathy G93.41 Sepsis A41.9 MP (acute kidney injury) N17.9 COPD (chronic obstructive pulmonary disease) with chronic bronchitis J44.9 Adrenal insufficiency E27.40 Hypoglycemia E16.2 Dysphagia R13.10 CKD (chronic kidney disease) stage 2, GFR 60-89 ml/min N18.2 Benign prostate hyperplasia N40.0 Elevated troponin R77.8 Recurrent left pleural effusion J90 Hypokalemia E87.6 History of stroke Z86.73 Cellulitis, leg L03.119 Hypernatremia E87.0 Otitis externa H60.90 Hypomagnesemia E83.42 DVT prophylaxis Z29.9 Hypertension I10
[2022-02-20] MEDS: INSULIN ASPART PER UNIT SC SCH ×5 (00:34→23:54)
[2022-02-20] MEDS: METOPROLOL TARTRATE 1 MG/ML VIAL IV SCH ×4 (06:19→23:48)
[2022-02-20] MEDS: ALBUTEROL 0.083% NEBU SOLN 3 ML VIAL NEB SCH ×4 (07:36→19:30)
[2022-02-20 07:51] LABS: BUN Creatinine Ratio 15.3 (10-20); Calcium 9.6 mg/dl (8.5-10.1); Creatinine Clr Calc Pharmacy 72.1 ml/min; Est GFR (African American) 91.4 ml/min; Est GFR (Non-African American) 78.9 ml/min; Phosphorus 1.7 mg/dl (2.5-4.9); Potassium 4.2 mmol/L (3.5-5.1)
[2022-02-20] MEDS ORDERED: POTASSIUM PHOS 3 MMOL/1 ML INFUSION IV STA (08:25)
[2022-02-20] MEDS: dexAMETHasone 4 MG in SYRINGE 0 ML IV SCH (08:34)
[2022-02-20] MEDS: PANTOprazole 40 MG in SYRINGE 0 ML IV SCH ×2 (08:34→20:25)
[2022-02-20] MEDS: NICOTINE 21 MG/24 HR TDSY TD SCH (08:34)
[2022-02-20] MEDS: FLUTICASONE FUROATE 100MCG 14 PUFFS/INHALER INH SCH (08:35)
[2022-02-20] MEDS: DEXTROSE 5% 1,000 ML IV SCH ×3 (08:42→23:42)
[2022-02-20] MEDS ORDERED: POTASSIUM PHOSPHATE 21 MMOL in SODIUM CHLORIDE 0.9% 500 ML IV ONE (09:00)
[2022-02-20] MEDS: UMECLIDINIUM/VILANTEROL 62.5/25MCG 7 PUFFS/INHALER INH SCH (09:28)
[2022-02-20] MEDS: levoFLOXacin/D5W 750 MG/150 ML BAG IV SCH (09:31)
[2022-02-20] MEDS: HEPARIN SOD 5,000 UNIT/0.5 ML VIAL SQ SCH ×2 (13:18→21:15)
[2022-02-20] MEDS: dexAMETHasone 2 MG in SYRINGE 0 ML IV SCH (20:26)
--- NOTE | 2022-02-20 21:13 | Hospitalist Progress Note ---
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 IMPROVED. Cont nebs. Cont IV dexamethasone but wean to 2mg BID. Cont Abx for #4. (3) Hypophosphatemia: Plan: K-juan antonio 21mmol IV x 1 repeat phos level am (4) Acute respiratory failure with hypoxia and hypercapnia: Plan: 2nd to aspiration event/aspiration pneumonia. Resolved. Required Tx to ICU on 02/16 due to such. Required BIPAP - then NC O2 - now all supplemental O2 weaned off fully. Cont IV abx for pneumonia. NPO due to dysphagia. See below. (5) Shock: Plan: RESOLVED. Was combination of adrenal shock + septic shock. May have had an element of anaphylaxis given his stridor, rash, and eosinophilia the day of his decompensation (02/16). Likely IV vanco allergy. Now hypertensive - see below. (6) Drug reaction: Plan: Was on both zosyn + vanco IV when this reaction occurred. Question of previous vanco allergy. Both zosyn and vanco stopped. Suspect vanco was culprit. Rash resolved with steroids & time. Cont supportive care. (7) Aspiration pneumonia: Plan: Clinically improved/resolving. Dysphagia from prior strokes likely the culprit. Dilatation of esophageal stenosis did not improve his swallowing. Cont Levaquin (levaquin to cover stenotrophomonas). Day #5 of Levaquin. Plan total of 7 days of levaquin. (8) Acute metabolic encephalopathy: Plan: 2nd to hypercarbia, sepsis, shock, etc. Resolved. (9) Sepsis: Plan: 2nd to aspiration pneumonia. can't rule out RLE cellulitis having contributed either. Either way sepsis resolved. Blood cultures from admission negative. Repeat blood cultures from 02/16 negative. Urine culture negative. (10) MP (acute kidney injury): Plan: Creatinine 1.89 at time of admission. Sepsis-associated ATN. Creatinine has normalized and remains stable. (11) Adrenal insufficiency: Plan: Received IV hydrocortisone for stress-dose steroids early in his stay, then weaned back to usual home doses. With shock on 02/16 placed back on high-dose hydrocortisone. Changed steroids to dexamethasone on 02/17 due to COPD flare. Weaning dex. Will wean dex to 2mg BID. (12) Hypoglycemia: Plan: 2nd to adrenal insufficiency, sepsis, poor PO intake, etc. Resolved. BSGs wnl. (13) Dysphagia: Plan: s/p video swallow with aspiration of thins earlier this admission. Appreciate speech therapy consult. Appreciate GI consult. s/p EGD 02/19 with dilatation of esophageal stenosis by Dr Blake. repeat swallow evaluation at bedside afternoon of 02/19 went poorly. NPO status recommended with repeat swallow eval (with possible repeat video swallow) on 02/22. he ultimately may need feeding tube (j-tube would be best). maintain NPO status & aspiration precautions along with IV fluids. (14) CKD (chronic kidney disease) stage 2, GFR 60-89 ml/min: Plan: removed gallegos voiding fine since BMP stable except high Na level as above repeat BMP in am (15) Benign prostate hyperplasia: Plan: despite holding Avodart and flomax he is voiding without difficulty (16) Elevated troponin: Plan: likely myocardial demand ischemia in setting of sepsis, MP, etc. no evidence of ACS (17) Recurrent left pleural effusion: Plan: s/p thoracentesis last admission with trapped lung present fluid studies c/w exudative effusion but cytologies were NEGATIVE PULM did not recommend further thoracentesis Cont to follow (18) Hypokalemia: Plan: severe s/p IV replacement earlier this week resolved repeat BMP am (19) History of stroke: Plan: resume ASA, Plavix when able uses wheelchair at baseline, does not ambulate has known bilateral ICA occlusion but with collaterals patient and family uncertain of when the stroke occurred in the past (20) Cellulitis, leg: Plan: RLE resolved (21) Otitis externa: Plan: previous culture- 01/12/22 Org 1 = Staph aureus MRSA Org 2 = Stenotrophomonas maltophilia Org 3 = Staphylococcus aureus resolved (22) Hypomagnesemia: Plan: repleted/resolved (23) DVT prophylaxis: Plan: heparin 5000 TID (24) Hypertension: Plan: cont lopressor 5mg IV q6h very labile levels typically are much better at night than during the day Plan brother updated at bedside earlier this week left message for pt's sister on her voicemail 2 days ago extensively updated pt's son and daughter in law at bedside yesterday Admission and Anticipated Discharge Date Admission Date: February 10, 2022 Subjective tele once again stable overnight he was watching [employer] football during the visit cough is minimum no dyspnea denies any new complaints reports his son when back to [place] today he is hungry Review of Systems Review of Systems: gen - energy ok; no fever cv - no orthopnea pulm - mild wheezing; minimal sputum at this point GI - no nausea/emesis/abd pain - gallegos was removed yesterday; voiding fine since then Physical Exam Physical Exam: gen - dysarthric speech unchanged; lying comfortably in bed today neck - no JVD mouth - MMM voice - hoarse face - right facial droop heart - RRR, s1 s2, no murmur lungs - mild exp wheezing b/l - again improved today; airation very good, no rales; decreased BS left base abd - soft NT ND BS+ ext - 1+ b/l pulses, no edema; cap refill about 2 seconds; modest mottling of feet from h/o PAD skin - cellulitis RLE resolved; diffuse erythematous rash torso, back, arms, legs - resolved psych - a/o x 3 Results & Data Results & Data ([facility]) Vital Signs (Past 12 Hours) Vital Signs Temp Pulse Pulse Resp BP Pulse Ox O2 Del Method 02/20/22 19:00 36.5 C 64 18 158/77 H 98 Room Air 02/20/22 19:31 66 18 98 Room Air 02/20/22 16:45 36.9 C 76 18 168/89 H 98 02/20/22 15:05 67 18 96 Room Air 02/20/22 14:02 83 130/62 96 Nasal Cannula 02/20/22 10:34 72 20 97 Room Air O2 Flow Rate 02/20/22 19:00 02/20/22 19:31 02/20/22 16:45 02/20/22 15:05 02/20/22 14:02 2 02/20/22 10:34 Laboratory Results Laboratory Results - last 24 hr 02/20/22 02/20/22 02/20/22 00:01 05:53 06:13 Sodium 151 H Potassium 4.2 Chloride 111 H Carbon Dioxide 34 H Anion Gap 6 BUN 15 Creatinine 0.98 Est Cr Clr Drug Dosing 72.1 Est GFR ( Amer) 91.4 Est GFR (Non-Af Amer) 78.9 BUN/Creatinine Ratio 15.3 Glucose 112 H POC Glucose 127 H 111 H Calcium 9.6 Phosphorus 1.7 L 02/20/22 02/20/22 11:39 16:32 Sodium Potassium Chloride Carbon Dioxide Anion Gap BUN Creatinine Est Cr Clr Drug Dosing Est GFR ( Amer) Est GFR (Non-Af Amer) BUN/Creatinine Ratio Glucose POC Glucose 104 H 121 H Calcium Phosphorus PG Care Time/CCT Total # of Minutes Spent Total Time Spent with Patient: Total time spent is greater than 50% in coordination of care (as documented) at patient's floor/unit and/or counseling patient: Coding Level of Care Code 17604 Subseq Hosp Care Lvl 2 Diagnoses Hypernatremia E87.0 COPD (chronic obstructive pulmonary disease) with chronic bronchitis J44.9 Hypophosphatemia E83.39 Acute respiratory failure with hypoxia and hypercapnia J96.01; J96.02 Shock R57.9 Drug reaction T50.905A Aspiration pneumonia J69.0 Acute metabolic encephalopathy G93.41 Sepsis A41.9 MP (acute kidney injury) N17.9 Adrenal insufficiency E27.40 Hypoglycemia E16.2 Dysphagia R13.10 CKD (chronic kidney disease) stage 2, GFR 60-89 ml/min N18.2 Benign prostate hyperplasia N40.0 Elevated troponin R77.8 Recurrent left pleural effusion J90 Hypokalemia E87.6 History of stroke Z86.73 Cellulitis, leg L03.119 Otitis externa H60.90 Hypomagnesemia E83.42 DVT prophylaxis Z29.9 Hypertension I10
[2022-02-21] MEDS ORDERED: SODIUM CHLORIDE 0.65% NA SOLN 45 ML (OCEAN) PRN (04:18)
[2022-02-21] MEDS ORDERED: SODIUM CHLORIDE 0.65% NA SOLN 45 ML (OCEAN) ONE (04:22)
[2022-02-21] MEDS: INSULIN ASPART PER UNIT SC SCH ×3 (06:02→16:32)
[2022-02-21] MEDS: HEPARIN SOD 5,000 UNIT/0.5 ML VIAL SQ SCH ×3 (06:02→20:40)
[2022-02-21] MEDS: METOPROLOL TARTRATE 1 MG/ML VIAL IV SCH ×3 (06:02→17:37)
[2022-02-21 06:08] LABS: Hematocrit (blood only) 40.5 % (40.1-51.0); Hemoglobin 12.9 g/dl (14.0-18.0); Mean Corpuscular Hemoglobin 26.8 pg (25.0-34.0); Mean Corpuscular Hgb Conc 31.9 g/dL (32.0-36.0); Mean Platelet Volume 9.6 fL (9.4-12.4); Nucleated RBC # (auto) 0.02 K/uL (0-0); Nucleated RBC % (auto) 0.2 %; Platelet Count 268 K/uL (130-400); RDW Coefficient of Variation 20.8 % (11.5-14.5); RDW Standard Deviation 62.2 fL (36.4-46.3); Red Blood Count 4.82 M/uL (4.63-6.08); White Blood Count 11.84 K/ul (4.8-10.8)
[2022-02-21 06:41] LABS: BUN Creatinine Ratio 13.5 (10-20); Calcium 8.9 mg/dl (8.5-10.1); Creatinine Clr Calc Pharmacy 72.9 ml/min; Est GFR (African American) 93.8 ml/min; Est GFR (Non-African American) 80.9 ml/min; Phosphorus 3.1 mg/dl (2.5-4.9); Potassium 3.4 mmol/L (3.5-5.1)
[2022-02-21] MEDS: ALBUTEROL 0.083% NEBU SOLN 3 ML VIAL NEB SCH ×4 (07:19→19:31)
[2022-02-21] MEDS: FLUTICASONE FUROATE 100MCG 14 PUFFS/INHALER INH SCH (07:51)
[2022-02-21] MEDS: UMECLIDINIUM/VILANTEROL 62.5/25MCG 7 PUFFS/INHALER INH SCH (07:51)
[2022-02-21] MEDS: DEXTROSE 5% 1,000 ML IV SCH ×2 (07:51→16:29)
[2022-02-21] MEDS: NICOTINE 21 MG/24 HR TDSY TD SCH (07:52)
[2022-02-21] MEDS: dexAMETHasone 2 MG in SYRINGE 0 ML IV SCH ×2 (07:58→20:40)
[2022-02-21] MEDS: POTASSIUM CHLORIDE / WTR 10 MEQ/100 ML PLCT IV SCH ×2 (08:44→09:57)
[2022-02-21] MEDS: PANTOprazole 40 MG in SYRINGE 0 ML IV SCH ×2 (08:44→20:40)
[2022-02-21] MEDS: levoFLOXacin/D5W 750 MG/150 ML BAG IV SCH (10:23)
[2022-02-21] MEDS ORDERED: OPTIRAY 300 100mL IV ONE (22:05)
--- NOTE | 2022-02-21 22:29 | Hospitalist Progress Note ---
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 appreciate nephrology assistance defer vasopressin Rx to nephrology did receive 1 dose of 4mcg IV x 1 on 02/15/22 Na today 147 - improving with D5W at 125cc/hr continue such defer on DDAVP today repeat BMP am if Na level remains refractory then repeat DDAVP dose (2) Hoarseness of voice: Plan: according to pt's sister this has been worsening for about 3-4 months he has had some element of dysarthria for some period of time but the quality of his voice is much, much worse per sister I reviewed copious records going back 6-12 months - there is no mention in any notation about hoarse voice or R facial droop given the hoarse voice, dysphagia, weight loss, etc -- obtain CT soft tissue of neck - r/o laryngeal lesion/mass may need direct laryngoscopy - could FEES study be done? (3) COPD (chronic obstructive pulmonary disease) with chronic bronchitis: Plan: With exacerbation. IMPROVED. Cont nebs. Cont IV dexamethasone 2mg BID - no wean today. Cont Abx for #4. (4) Hypophosphatemia: Plan: s/p K-juan antonio 21mmol IV x 1 with resolved low phos (5) Acute respiratory failure with hypoxia and hypercapnia: Plan: 2nd to aspiration event/aspiration pneumonia. Resolved. Required Tx to ICU on 02/16 due to such. Required BIPAP - then NC O2 - now all supplemental O2 weaned off fully. Cont IV abx for pneumonia. NPO due to dysphagia. See below. (6) Shock: Plan: RESOLVED. Was combination of adrenal shock + septic shock. May have had an element of anaphylaxis given his stridor, rash, and eosinophilia the day of his decompensation (02/16). Likely IV vanco allergy. Now hypertensive - see below. (7) Drug reaction: Plan: Was on both zosyn + vanco IV when this reaction occurred. Question of previous vanco allergy. Both zosyn and vanco stopped. Suspect vanco was culprit. Rash resolved with steroids & time. Cont supportive care. (8) Aspiration pneumonia: Plan: Clinically improved/resolving. Dysphagia from prior strokes likely the culprit. Dilatation of esophageal stenosis did not improve his swallowing. Cont Levaquin (levaquin to cover stenotrophomonas). Day #6 of Levaquin. Plan total of 7 days of levaquin. (9) Acute metabolic encephalopathy: Plan: 2nd to hypercarbia, sepsis, shock, etc. Resolved. (10) Sepsis: Plan: 2nd to aspiration pneumonia. can't rule out RLE cellulitis having contributed either. Either way sepsis resolved. Blood cultures from admission negative. Repeat blood cultures from 02/16 negative. Urine culture negative. (11) MP (acute kidney injury): Plan: Creatinine 1.89 at time of admission. Sepsis-associated ATN. resolved (12) Adrenal insufficiency: Plan: Received IV hydrocortisone for stress-dose steroids early in his stay, then weaned back to usual home doses. With shock on 02/16 placed back on high-dose hydrocortisone. Changed steroids to dexamethasone on 02/17 due to COPD flare. Weaning dexamethasone - now on 2mg BID. (13) Hypoglycemia: Plan: 2nd to adrenal insufficiency, sepsis, poor PO intake, etc. Resolved. BSGs wnl. low bsg today was erroneous level without intervention the BSG repeat was wnl (14) Dysphagia: Plan: s/p video swallow with aspiration of thins earlier this admission. Appreciate speech therapy consult. Appreciate GI consult. s/p EGD 02/19 with dilatation of esophageal stenosis by Dr Blake. repeat swallow evaluation at bedside afternoon of 02/19 went poorly. NPO status recommended with repeat swallow eval (with possible repeat video swallow) on 02/22. speech has continued to check on him this weekend and there is no improvement in swallow function. he ultimately may need feeding tube (j-tube would be best). maintain NPO status & aspiration precautions along with IV fluids. see above re: CT soft tissue neck. (15) CKD (chronic kidney disease) stage 2, GFR 60-89 ml/min: Plan: removed gallegos voiding fine since BMP stable except high Na level as above repeat BMP in am (16) Benign prostate hyperplasia: Plan: despite holding Avodart and flomax he is voiding without difficulty (17) Elevated troponin: Plan: likely myocardial demand ischemia in setting of sepsis, MP, etc. no evidence of ACS (18) Recurrent left pleural effusion: Plan: s/p thoracentesis last admission with trapped lung present fluid studies c/w exudative effusion but cytologies were NEGATIVE PULM did not recommend further thoracentesis Cont to follow (19) Hypokalemia: Plan: severe s/p IV replacement earlier this week resolved (20) History of stroke: Plan: resume ASA, Plavix when able uses wheelchair at baseline, does not ambulate has known bilateral ICA occlusion but with collaterals patient and family uncertain of when the stroke occurred in the past 02/2021 CT head reports that the chronic appearing strokes on that CT were new in comparison to CT done in 2018; thus, CVAs occurred between 2018 and 02/2021 recent MRI brain with L frontal and L basal ganglia calderon that are old/chronic (21) Cellulitis, leg: Plan: RLE resolved (22) Otitis externa: Plan: previous culture- 01/12/22 Org 1 = Staph aureus MRSA Org 2 = Stenotrophomonas maltophilia Org 3 = Staphylococcus aureus resolved (23) Hypomagnesemia: Plan: repleted/resolved (24) DVT prophylaxis: Plan: heparin 5000 TID (25) Hypertension: Plan: cont lopressor 5mg IV q6h very labile levels typically are much better at night than during the day no changes today Plan extensively updated pt's sister today by phone Admission and Anticipated Discharge Date Admission Date: February 10, 2022 Subjective patient watching an [employer] football game on TV during the visit denies any specific changes since our last visit minimal cough no orthopnea minimal sputum no dyspnea at rest denies any pain in any location tele overnight wnl I spoke with pt's sister - she reports worsening hoarseness of voice over the last 4 months or so the right facial droop is also relatively new to her she states his voice has always been garbly but has been particularly bad over the last few months she was not aware that MRI brain and old CTs have shown strokes on the left side (frontal lobe and basal ganglia; first mention is 02/[address]) Review of Systems Review of Systems: gen - no fever skin - no pruritis cv - no cp pulm - mild wheeze but no dyspnea GI - no pain or vomiting Physical Exam Physical Exam: gen - dysarthric speech unchanged; lying comfortably in bed neck - no JVD ears - right ear wnl; canal clear; left ear pinnae deformed, no canal drainage mouth - tongue is dry, no lesions voice - hoarse unchanged face - right facial droop unchanged heart - RRR, s1 s2, no murmur - heart tones are distant lungs - mild exp wheezing b/l; airation good, no rales; decreased BS left base abd - soft NT ND BS+ ext - 1+ b/l pulses, no edema; cap refill about 2-3 seconds b/l feet; modest mottling of feet from h/o PAD skin - cellulitis RLE (parr) resolved; diffuse erythematous rash torso, back, arms, legs - resolved Results & Data Results & Data ([place]) Vital Signs (Past 12 Hours) Vital Signs Temp Pulse Pulse Resp BP BP Pulse Ox 02/21/22 20:45 02/21/22 19:00 36.3 C L 62 16 136/87 95 02/21/22 19:31 18 96 02/21/22 16:46 37.0 C 67 20 149/78 H 97 02/21/22 15:42 65 02/21/22 14:14 70 18 97 02/21/22 12:00 37.1 C 78 18 164/84 H 97 02/21/22 11:07 70 16 97 O2 Del Method 02/21/22 20:45 Room Air 02/21/22 19:00 Room Air 02/21/22 19:31 Room Air 02/21/22 16:46 02/21/22 15:42 02/21/22 14:14 Room Air 02/21/22 12:00 02/21/22 11:07 Room Air Laboratory Results Laboratory Results - last 24 hr 02/20/22 02/21/22 02/21/22 23:47 05:59 05:59 WBC 11.84 H RBC 4.82 Hgb 12.9 L Hct 40.5 MCV 84.0 MCH 26.8 MCHC 31.9 L RDW Std Deviation 62.2 H RDW Coeff of Raul 20.8 H Plt Count 268 MPV 9.6 Absolute Nucleated RBC 0.02 H Nucleated RBC % (auto) 0.2 Sodium 147 H Potassium 3.4 L Chloride 108 H Carbon Dioxide 33 H Anion Gap 6 BUN 13 Creatinine 0.96 Est Cr Clr Drug Dosing 72.9 Est GFR ( Amer) 93.8 Est GFR (Non-Af Amer) 80.9 BUN/Creatinine Ratio 13.5 Glucose 95 POC Glucose 122 H Calcium 8.9 Phosphorus 3.1 D 02/21/22 02/21/22 02/21/22 05:59 11:32 16:22 WBC RBC Hgb Hct MCV MCH MCHC RDW Std Deviation RDW Coeff of Raul Plt Count MPV Absolute Nucleated RBC Nucleated RBC % (auto) Sodium Potassium Chloride Carbon Dioxide Anion Gap BUN Creatinine Est Cr Clr Drug Dosing Est GFR ( Amer) Est GFR (Non-Af Amer) BUN/Creatinine Ratio Glucose POC Glucose 100 H 237 H 36 L* Calcium Phosphorus 02/21/22 02/21/22 16:23 16:24 WBC RBC Hgb Hct MCV MCH MCHC RDW Std Deviation RDW Coeff of Raul Plt Count MPV Absolute Nucleated RBC Nucleated RBC % (auto) Sodium Potassium Chloride Carbon Dioxide Anion Gap BUN Creatinine Est Cr Clr Drug Dosing Est GFR ( Amer) Est GFR (Non-Af Amer) BUN/Creatinine Ratio Glucose POC Glucose 34 L* 84 Calcium Phosphorus PG Care Time/CCT Total # of Minutes Spent Total Time Spent with Patient: Total time spent is greater than 50% in coordination of care (as documented) at patient's floor/unit and/or counseling patient: Coding Level of Care Code 97017 Subseq Hosp Care Lvl 3 Diagnoses Hypernatremia E87.0 Hoarseness of voice R49.0 COPD (chronic obstructive pulmonary disease) with chronic bronchitis J44.9 Hypophosphatemia E83.39 Acute respiratory failure with hypoxia and hypercapnia J96.01; J96.02 Shock R57.9 Drug reaction T50.905A Aspiration pneumonia J69.0 Acute metabolic encephalopathy G93.41 Sepsis A41.9 MP (acute kidney injury) N17.9 Adrenal insufficiency E27.40 Hypoglycemia E16.2 Dysphagia R13.10 CKD (chronic kidney disease) stage 2, GFR 60-89 ml/min N18.2 Benign prostate hyperplasia N40.0 Elevated troponin R77.8 Recurrent left pleural effusion J90 Hypokalemia E87.6 History of stroke Z86.73 Cellulitis, leg L03.119 Otitis externa H60.90 Hypomagnesemia E83.42 DVT prophylaxis Z29.9 Hypertension I10
[2022-02-22] MEDS: METOPROLOL TARTRATE 1 MG/ML VIAL IV SCH ×5 (00:05→23:59)
[2022-02-22] MEDS: INSULIN ASPART PER UNIT SC SCH ×2 (00:09→04:51)
[2022-02-22] MEDS: DEXTROSE 5% 1,000 ML IV SCH ×3 (00:43→20:43)
[2022-02-22] MEDS ORDERED: ALBUT/IPRATROP 3MG/0.5MG NEB 3 ML VIAL NEB STA (04:03)
[2022-02-22] MEDS ORDERED: MoRPHine SULFATE 2 MG/ML CARP IV STA (04:08)
[2022-02-22 04:13] LABS: iSTAT Allen Test Pass; iSTAT Arterial Blood Gas HCO3 27 meg/L (19-24); iSTAT Arterial Blood Gas pCO2 27 mmHg (35-46); iSTAT Arterial Blood Gas pH 7.61 (7.35-7.45); iSTAT Arterial Blood Gas pO2 112 mmHg (80-95); iSTAT Carbon Dioxide 28 mmol/L (24-31); iSTAT Site L Radial
--- NOTE | 2022-02-22 04:24 | Communication Note ---
Date of Service: February 22, 2022 Notified by patient's RN that patient was awakened and noticed to be hyperventilating and confused. Concerns he was experiencing respiratory distress. Went to evaluate patient. Confused and tachypneic. Did follow some commands like squeezing hands, but kept saying "get me to the door." Denied any pain. Reported feeling short of breath. 133/43, HR 65, RR ~30, SpO2 >97% on 3L. General - confused and tired appearing 67 year old male in distress, but not alert or oriented. Cardiac - NRRR, +S1/S2 without m/r/g. Neck - good air entry, no stridor appreciated on neck auscultation. Respiratory - Increased respiratory effort, no use of accessory muscles. Equal air entry bilaterally throughout both lung goldberg. Mild bibasilar crackles appreciated. Abdomen - NABS, soft/NT/ND. Neuro - UE strength 5/5 bilaterally. ABG - 7.61 / pCO2 27 / PO2 112 / HCO3 27 Respiratory alkalosis, respiratory distress. Unclear etiology - ?acute delirium with panic, ?aspiration, ?other metabolic abnormality. No overt signs of airway obstruction on exam, though his CT findings are noted. No precipitating RX. -- Will give DuoNebs. Give morphine 1mg x 1. Consider applying NRB at low-flow to help with retention. Elevated HOB. Check CXR and AM labs. Closely monitor and escalate respiratory care if needed. Acute encephalopathy - unclear whether the cause or the effect of the above. Suspect the former. Likely component of hospital delirium intermixed. Check labs. Treat alkalosis. Delirium precautions. Morphine, as above. Resident Activity Tracking Resident Involvement: Resident Care Provided Care Provided: Adult Hospital Medicine
[2022-02-22 04:27] LABS: Basophils # (auto) 0.03 K/uL (0-0.2); Basophils % (auto) 0.2 %; Eosinophils # (auto) 0.02 K/uL (0-0.50); Eosinophils % (auto) 0.1 %; Hematocrit (blood only) 39.3 % (40.1-51.0); Hemoglobin 12.9 g/dl (14.0-18.0); Immature Granulocytes # (auto) 0.33 K/uL (0.00-0.02); Immature Granulocytes % (auto) 2.3 %; Lymphocytes # (auto) 1.38 K/uL (1.2-3.4); Lymphocytes % (auto) 9.6 %; Mean Corpuscular Hemoglobin 26.9 pg (25.0-34.0); Mean Corpuscular Hgb Conc 32.8 g/dL (32.0-36.0); Mean Corpuscular Volume 81.9 fL (80.0-100.0); Mean Platelet Volume 10.4 fL (9.4-12.4); Monocytes # (auto) 0.59 K/uL (0.24-0.82); Monocytes % (auto) 4.1 %; Neutrophils # (auto) 12.05 K/uL (1.4-6.5); Neutrophils % (auto) 83.7 %; Platelet Count 290 K/uL (130-400); RDW Coefficient of Variation 20.6 % (11.5-14.5); RDW Standard Deviation 60.3 fL (36.4-46.3)
[2022-02-22 04:52] LABS: Acanthocytes 1+; Anisocytosis Present; BUN Creatinine Ratio 13.4 (10-20); Calcium 8.7 mg/dl (8.5-10.1); Creatinine Clr Calc Pharmacy 72.2 ml/min; Echinocytes 1+; Est GFR (African American) 92.6 ml/min; Est GFR (Non-African American) 79.9 ml/min; Magnesium 2.2 mg/dl (1.7-2.4); Polychromasia 1+; Potassium 3.5 mmol/L (3.5-5.1)
[2022-02-22] MEDS: HEPARIN SOD 5,000 UNIT/0.5 ML VIAL SQ SCH ×3 (04:53→21:02)
[2022-02-22 07:05] LABS: Base Excess VBG 7.3 mEq/L; HCO3 VBG 34 mmol/L; Oxygen Saturation VBG < 60.0 %; PCO2 VBG 53 mmHg (38-50); PO2 VBG 26 mmHg; pH VBG 7.41 (7.36-7.41)
[2022-02-22] MEDS: ALBUTEROL 0.083% NEBU SOLN 3 ML VIAL NEB SCH ×4 (07:36→19:56)
[2022-02-22] MEDS: dexAMETHasone 2 MG in SYRINGE 0 ML IV SCH ×2 (08:52→21:02)
[2022-02-22] MEDS: NICOTINE 21 MG/24 HR TDSY TD SCH (08:52)
[2022-02-22] MEDS: FLUTICASONE FUROATE 100MCG 14 PUFFS/INHALER INH SCH (08:53)
[2022-02-22] MEDS: PANTOprazole 40 MG in SYRINGE 0 ML IV SCH ×2 (08:53→21:02)
[2022-02-22] MEDS: UMECLIDINIUM/VILANTEROL 62.5/25MCG 7 PUFFS/INHALER INH SCH (08:53)
[2022-02-22] MEDS: levoFLOXacin/D5W 750 MG/150 ML BAG IV SCH (08:55)
--- NOTE | 2022-02-22 09:16 | CT Scan Report ---
CT soft tissue neck w con HISTORY: 67 years-old Male dysphagia; dysarthria; eval laryngeal path, etc acute dysphasia COMPARISON: Chest CT 01/11/2022, swallow study 02/12/2022, CTA chest 09/03/2021, CT soft tissue neck 016. TECHNIQUE: Multiple axial CT images of the soft tissues of the neck were obtained following the intra venous administration of 93 mL Optiray. A dose lowering technique was used consistent with the [employer]. FINDINGS: Prior bilateral lens repair. Involutional changes of the imaged brain parenchyma. Extensive atheroscl erotic plaque of the thoracic aorta and carotid arteries. There is occlusion involving the bilateral common and internal carotid arteries. Occlusion of the common carotid arteries was present on the [facility] CTA of the chest. There is reconstitution of flow within the external carotid arteries. Gaseous distention of the patent airway. There is also gaseous distention of the upper thoracic esoph emmanuel. No parapharyngeal or prevertebral fluid collections or pathologically enlarged lymph nodes iden tified. There may be mild fatty atrophy of the left vocal fold. Degenerative changes of the spine. No acute fracture. Linear consolidation of the upper lobes redemon strated. Biapical pleural-parenchymal scarring with right upper lobe reticular nodular opacities and groundglass densities appear similar to prior. IMPRESSION: 1. No acute inflammatory changes of the neck or lymphadenopathy. 2. Gaseous distention of the airway and upper thoracic esophagus. 3. 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 Occlusion of the internal carotid arteries may a lso be chronic, however is new from 2016. 4. Stable appearance of the lung apices compared to the 01/11/2022 exam. ACT 112: Negative or not required by law. The above report was generated using voice recognition software. It may contain grammatical, syntax o r spelling errors. Electronically signed by: Александр Moore M.D. 02/22/2022 9:13 AM
--- NOTE | 2022-02-22 09:37 | XRay Report ---
XR chest 1V portable HISTORY: Shortness of breath. COMPARISON: Chest 02/16/2022. FINDINGS: No pneumothorax. Small partially loculated left pleural effusion and left basilar densities have improved. The heart is mildly enlarged. There is been interval progression of the right suprahi lar density. There are low lung volumes. Mild gaseous distention of the visualized bowel. IMPRESSION: 1. Slight improvement in the small loculated left pleural effusion and left basilar densities. 2. Interval progression of a focal right suprahilar airspace opacity. Continued follow-up recommended . ACT 112: Negative or not required by law. Electronically signed by: Patricio Burger M.D. 02/22/2022 9:35 AM
--- NOTE | 2022-02-22 11:51 | Emergency Department Note ---
ED Visit Note CODE BLUE: Date: 02/22/22. Time: 11:15am Called to Xray Room 1 for code blue Code being run by nursing staff Code Status: Full per nursing Brief summary: 67 yr old male admitted for aspiration pneumonia who was getting a chest x-ray this morning and became altered stop breathing and found to have no pulse. Evaluation patient unresponsive no pulsatile not breathing. BVM applied and compressions started. After 1 round of compressions patient waking up and breathing on his own. Took a few minutes before he returned to his baseline mental status. Bedside blood sugar unremarkable. Vitals with blood pressure 150/80, O2 sat 100% on blow-by, heart rate in the 60s. Dr. Thomson from primary team at bedside and will manage from here. Findings I suspect this was a respiratory arrest possibly some sort of mucous plugging. No medications given during code as patient had ROSC prior to being given. Modesto Bialey MD : Sepsis Qualifiers: Sepsis type: sepsis due to unspecified organism Sepsis acute organ dysfunction status: with acute organ dysfunction Severe sepsis acute organ dysfunction type: acute renal failure Acute renal failure type: unspecified
[2022-02-22] MEDS: DEXTROSE 50% 50 ML SYRINGE IV PRN (11:55)
[2022-02-22 12:32] LABS: Basophils # (auto) 0.04 K/uL (0-0.2); Basophils % (auto) 0.3 %; Eosinophils # (auto) 0.04 K/uL (0-0.50); Eosinophils % (auto) 0.3 %; Hematocrit (blood only) 39.3 % (40.1-51.0); Hemoglobin 12.2 g/dl (14.0-18.0); Immature Granulocytes # (auto) 0.39 K/uL (0.00-0.02); Immature Granulocytes % (auto) 3.1 %; Lymphocytes # (auto) 0.88 K/uL (1.2-3.4); Mean Corpuscular Hemoglobin 26.5 pg (25.0-34.0); Mean Corpuscular Volume 85.2 fL (80.0-100.0); Mean Platelet Volume 10.2 fL (9.4-12.4); Monocytes # (auto) 0.51 K/uL (0.24-0.82); Monocytes % (auto) 4.1 %; Neutrophils # (auto) 10.73 K/uL (1.4-6.5); Neutrophils % (auto) 85.2 %; Platelet Count 218 K/uL (130-400); RDW Coefficient of Variation 20.5 % (11.5-14.5); RDW Standard Deviation 62.3 fL (36.4-46.3); Red Blood Count 4.61 M/uL (4.63-6.08); White Blood Count 12.59 K/ul (4.8-10.8)
--- NOTE | 2022-02-22 12:35 | XRay Report ---
XR chest 1V portable HISTORY: Respiratory distress. code blue COMPARISON: Chest 02/22/2022. FINDINGS: No pneumothorax. Partially loculated small left pleural effusion and left basilar densities persist. A right suprahilar airspace opacity has slightly improved. The heart remains mildly enlarge d. There are low lung volumes. IMPRESSION: 1. No change in the partially loculated small left pleural effusion and left basilar airspace opaciti es. 2. Interval improvement in the right suprahilar density. ACT 112: Negative or not required by law. Electronically signed by: Patricio Burger M.D. 02/22/2022 12:33 PM
--- NOTE | 2022-02-22 12:45 | Hospitalist Progress Note ---
Date of Service February 22, 2022 Assessment & Plan (1) Cardiac arrest: Plan: exact etiology of today's event is uncertain. per staff who found him unresponsive he was cyanotic and pulseless which led to initiation of CPR. no seizure activity seen. initial BSG was 80. no dysrhythmia seen during pulse checks during the code. CPR lasted 1-2 minutes most and patient woke up and started following commands. of note - patient HAD NOT started his video swallow test when this event occurred. He was simply sitting in a wheelchair. Did he have syncope leading to bradycardia and cyanosis? Did he have transient hypoxia leading to pulselessness & cardiac arrest? Seizure leading to syncope and altered level of consciousness? PE? Stroke leading to cardiac arrest? Other? Defer w/u to critical care attending. Thus far troponin, EKG, cxr, etc without specific etiology for the event. (2) Hypernatremia: Plan: improved today may have component of central DI appreciate nephrology assistance defer vasopressin Rx, if needed, to nephrology did receive 1 dose of 4mcg IV x 1 on 02/15/22 Na today 143 - improved with D5W at 125cc/hr continue dextrose drip due to low BSGs seen upon admission to ICU defer on DDAVP repeat BMP am if Na level remains refractory then consider DDAVP usage again (3) Hoarseness of voice: Plan: according to pt's sister this has been worsening for about 3-4 months he has had some element of dysarthria for some period of time but the quality of his voice is much, much worse per sister I reviewed copious records going back 6-12 months - there is no mention in any notation about hoarse voice or R facial droop until 01/2022 speech therapy notes mentioning these features given the hoarse voice, dysphagia, weight loss, etc -- obtained CT soft tissue of neck - laryngeal lesion/mass not seen may need direct laryngoscopy at some point in the future by ENT (4) COPD (chronic obstructive pulmonary disease) with chronic bronchitis: Plan: With exacerbation. had been improving with tapering steroids. Cont nebs. Cont IV dexamethasone 2mg BID. Cont Abx. (5) Hypophosphatemia: Plan: replaced/resolved (6) Acute respiratory failure with hypoxia and hypercapnia: Plan: 02/16/22 - 2nd to aspiration event/aspiration pneumonia. Resolved. Required Tx to ICU on 02/16 due to such. Required BIPAP - then NC O2 - then all supplemental O2 weaned off fully. Had been off O2 completely until the cardiac arrest event today. Cont IV abx for pneumonia. NPO due to dysphagia. (7) Shock: Plan: 02/16/22 -- RESOLVED. Was combination of adrenal shock + septic shock. May have had an element of anaphylaxis given his stridor, rash, and eosinophilia the day of his decompensation (02/16). Likely IV vanco allergy. (8) Drug reaction: Plan: Was on both zosyn + vanco IV when this reaction occurred on 02/15 and 02/16. Question of previous vanco allergy per prior records. Both zosyn and vanco stopped. Suspect vanco was culprit. Rash resolved with steroids. Cont supportive care. Both zosyn/vanco added to allergy list. (9) Aspiration pneumonia: Plan: Has been clinically improved/resolving. Dysphagia from prior strokes likely the culprit. Dilatation of esophageal stenosis this past Tuesday by Dr Blake did not improve his swallowing. CT soft tissue neck without any laryngeal mass seen. Cont Levaquin (levaquin to cover stenotrophomonas which grew from a previous external ear canal culture). Today is Day #7 of Levaquin. Plan total of 7 days of levaquin unless ICU attending extends his abx . (10) Acute metabolic encephalopathy: Plan: 2nd to hypercarbia, sepsis, shock, etc. Had Resolved, then was confused overnight and also during his cardiac event today. etiology?? consider repeat imaging of the head. (11) Sepsis: Plan: early in the admission -- 2nd to aspiration pneumonia; can't rule out RLE cellulitis having contributed either. Either way sepsis had resolved. Blood cultures from admission negative. Repeat blood cultures from 02/16 negative. Urine culture negative. (12) MP (acute kidney injury): Plan: Creatinine 1.89 at time of admission. Sepsis-associated ATN. resolved (13) Adrenal insufficiency: Plan: Received IV hydrocortisone for stress-dose steroids early in his stay, then weaned back to usual home doses. With shock on 02/16 placed back on high-dose hydrocortisone. Changed steroids to dexamethasone on 02/17 due to COPD flare. Weaning dexamethasone - now on 2mg BID. NO change in steroids today. (14) Hypoglycemia: Plan: 2nd to adrenal insufficiency, sepsis, poor PO intake, etc. Had Resolved. BSGs had greg wnl most of this past week. 02/21/22 -- low BSG felt to be erroneous -- a repeat BSG was WNL without any intervention for the possible low. Today he had BSG of 80 immediately following the cardiac arrest event. By the time he got to the ICU from radiology, however, his BSGs were in the 50s. Cont D5W at 125cc/hr. Serial BSGs. Cont IV dexamethasone. (15) Dysphagia: Plan: s/p video swallow with aspiration of thins earlier this admission. s/p EGD 02/19 with dilatation of esophageal stenosis by Dr Blake. repeat swallow evaluation at bedside afternoon of 02/19 went poorly despite the esophageal dilatation. CT soft tissue neck on 02/21 without laryngeal or hypopharyngeal lesion/mass. was to have repeat video swallow today but he never had it due to #1. his dysphagia has been suspected to be from prior strokes (as seen on CT head and MRI brain) but the CT soft tissue neck was pursued simply to rule out masses contributing to pharyngeal dysphagia. he likely will ultimately need J-tube. (16) CKD (chronic kidney disease) stage 2, GFR 60-89 ml/min: Plan: removed gallegos this past weekend voiding fine since then BMP stable repeat BMP in am (17) Benign prostate hyperplasia: Plan: despite holding Avodart and flomax he has been voiding without difficulty (18) Elevated troponin: Plan: likely myocardial demand ischemia in setting of sepsis, MP, etc. no evidence of ACS (19) Recurrent left pleural effusion: Plan: s/p thoracentesis last admission with trapped lung present fluid studies c/w exudative effusion but cytologies were NEGATIVE PULM did not recommend further thoracentesis Cont to follow with serial cxr (20) Hypokalemia: Plan: replaced resolved (21) History of stroke: Plan: resume ASA, Plavix when able uses wheelchair at baseline, does not ambulate has known bilateral ICA occlusion but with collaterals patient and family uncertain of when the stroke occurred in the past 02/2021 CT head reports that the chronic appearing strokes on that CT were new in comparison to CT done in 2018; thus, CVAs occurred between 2018 and 02/2021 recent MRI brain with L frontal and L basal ganglia calderon that are old/chronic; no new stroke seen consider repeat head CT in light of today's events (22) Cellulitis, leg: Plan: RLE resolved (23) Otitis externa: Plan: previous culture- 01/12/22 Org 1 = Staph aureus MRSA Org 2 = Stenotrophomonas maltophilia Org 3 = Staphylococcus aureus resolved (24) Hypomagnesemia: Plan: repleted/resolved (25) DVT prophylaxis: Plan: heparin 5000 TID (26) Hypertension: Plan: lopressor 5mg IV q6h very labile at times Plan extensively updated pt's sister Tanna Avery by phone today as well as yesterday she is aware of today's events and her brother's transfer back to ICU pt's son from [place] updated at bedside Sat, 02/20 Admission and Anticipated Discharge Date Admission Date: February 10, 2022 Subjective this am patient had been transported to radiology for previously scheduled video swallow eval by report he was in a wheelchair in the radiology area awaiting the test staff found him slouched over in the wheelchair unresponsive with no pulse he was moved from the wheelchair to a table where CPR was initiated nicole ac was called overhead upon my arrival there were numerous medical personnel assembled ER physician was running code, and he was receiving bag-valve mask ventilation CPR was in progress by report he received 1-2 minutes of chest compressions never needed medications or shocks did not need intubation on monitor was in NSR after chest compressions were stopped he woke up and started to talk BSG was 80 transported to ICU upon arrival in ICU he was still talking more groggy than previous visits but able to talk, follow commands a repeat BSG was in the 50s amp D50 given he asked for ice chips denied chest pain, dyspnea, or headache by report, patient had confusion and dyspnea with tachypnea in the middle of the night the night resident physician evaluated him for this blood gas showed respiratory alkalosis repeat blood gas this am showed improvement exact etiology of middle of the night events was uncertain Review of Systems Review of Systems: cv - no cp pulm - no dyspnea at rest GI - no abd pain Physical Exam Physical Exam: gen - dysarthric speech worse today; he overall looks much more ill today in comparison to yesterday neck - no JVD mouth - tongue dry, no lesions voice - hoarseness unchanged face - right facial droop unchanged heart - RRR, s1 s2, no murmur - heart tones are distant lungs - mild-mod exp wheezing b/l; no rales; decreased BS left base abd - soft NT ND BS+ ext - <1+ b/l pulses, no edema; cap refill about 3 seconds b/l feet and distal legs Results & Data Results & Data ([facility]) Vital Signs (Past 12 Hours) Vital Signs Temp Pulse Pulse Pulse Resp BP BP 02/22/22 08:00 02/22/22 10:41 67 20 02/22/22 08:00 60 02/22/22 07:30 36.5 C 59 L 18 156/90 H 02/22/22 07:36 77 25 H 02/22/22 04:56 66 149/92 H 02/22/22 04:31 149/92 H 02/22/22 04:00 65 26 H 02/22/22 03:50 26 H Pulse Ox O2 Del Method O2 Flow Rate 02/22/22 08:00 Room Air 02/22/22 10:41 95 Room Air 02/22/22 08:00 02/22/22 07:30 100 Room Air 02/22/22 07:36 98 Room Air 02/22/22 04:56 02/22/22 04:31 02/22/22 04:00 97 Nasal Cannula 3 02/22/22 03:50 97 Nasal Cannula 3 Laboratory Results Laboratory Results - last 24 hr 02/21/22 02/21/22 02/21/22 16:22 16:23 16:24 WBC RBC Hgb Hct MCV MCH MCHC RDW Std Deviation RDW Coeff of Raul Plt Count MPV Immature Gran % (Auto) Neut % (Auto) Lymph % (Auto) Ashley % (Auto) Eos % (Auto) Baso % (Auto) Neut # (Auto) Lymph # (Auto) Ashley # (Auto) Eos # (Auto) Baso # (Auto) Immature Gran # (Auto) Polychromasia Anisocytosis Echinocytes Acanthocytes (Spur) Sample Site POC pH POC pCO2 POC pO2 POC HCO3 POC Total CO2 POC Base Excess POC ABG O2 Sat Kentrell Test VBG pH VBG pCO2 VBG pO2 VBG HCO3 VBG O2 Saturation VBG Base Excess O2 Delivery Device Sodium Potassium Chloride Carbon Dioxide Anion Gap BUN Creatinine Est Cr Clr Drug Dosing Est GFR ( Amer) Est GFR (Non-Af Amer) BUN/Creatinine Ratio Glucose POC Glucose 36 L* 34 L* 84 Lactate Calcium Phosphorus Magnesium Total Bilirubin AST ALT Alkaline Phosphatase Troponin I High Sens Total Protein Albumin Globulin Albumin/Globulin Ratio 02/22/22 02/22/22 02/22/22 00:06 03:53 03:57 WBC RBC Hgb Hct MCV MCH MCHC RDW Std Deviation RDW Coeff of Raul Plt Count MPV Immature Gran % (Auto) Neut % (Auto) Lymph % (Auto) Ashley % (Auto) Eos % (Auto) Baso % (Auto) Neut # (Auto) Lymph # (Auto) Ashley # (Auto) Eos # (Auto) Baso # (Auto) Immature Gran # (Auto) Polychromasia Anisocytosis Echinocytes Acanthocytes (Spur) Sample Site L Radial POC pH 7.61 H* POC pCO2 27 L POC pO2 112 H POC HCO3 27 H POC Total CO2 28 POC Base Excess 6.0 H POC ABG O2 Sat 99.0 H Kentrell Test Pass VBG pH VBG pCO2 VBG pO2 VBG HCO3 VBG O2 Saturation VBG Base Excess O2 Delivery Device Cannula Sodium Potassium Chloride Carbon Dioxide Anion Gap BUN Creatinine Est Cr Clr Drug Dosing Est GFR ( Amer) Est GFR (Non-Af Amer) BUN/Creatinine Ratio Glucose POC Glucose 134 H 135 H Lactate Calcium Phosphorus Magnesium Total Bilirubin AST ALT Alkaline Phosphatase Troponin I High Sens Total Protein Albumin Globulin Albumin/Globulin Ratio 02/22/22 02/22/22 02/22/22 04:10 04:10 06:29 WBC 14.40 H RBC 4.80 Hgb 12.9 L Hct 39.3 L MCV 81.9 MCH 26.9 MCHC 32.8 RDW Std Deviation 60.3 H RDW Coeff of Raul 20.6 H Plt Count 290 MPV 10.4 Immature Gran % (Auto) 2.3 Neut % (Auto) 83.7 Lymph % (Auto) 9.6 Ashley % (Auto) 4.1 Eos % (Auto) 0.1 Baso % (Auto) 0.2 Neut # (Auto) 12.05 H Lymph # (Auto) 1.38 Ashley # (Auto) 0.59 Eos # (Auto) 0.02 Baso # (Auto) 0.03 Immature Gran # (Auto) 0.33 H Polychromasia 1+ Anisocytosis Present Echinocytes 1+ Acanthocytes (Spur) 1+ Sample Site POC pH POC pCO2 POC pO2 POC HCO3 POC Total CO2 POC Base Excess POC ABG O2 Sat Kentrell Test VBG pH 7.41 VBG pCO2 53 H VBG pO2 26 VBG HCO3 34 VBG O2 Saturation < 60.0 VBG Base Excess 7.3 O2 Delivery Device Sodium 143 Potassium 3.5 Chloride 107 Carbon Dioxide 29 Anion Gap 7 BUN 13 Creatinine 0.97 Est Cr Clr Drug Dosing 72.2 Est GFR ( Amer) 92.6 Est GFR (Non-Af Amer) 79.9 BUN/Creatinine Ratio 13.4 Glucose 118 H POC Glucose Lactate Calcium 8.7 Phosphorus Magnesium 2.2 Total Bilirubin AST ALT Alkaline Phosphatase Troponin I High Sens Total Protein Albumin Globulin Albumin/Globulin Ratio 02/22/22 02/22/22 02/22/22 11:29 11:48 11:51 WBC RBC Hgb Hct MCV MCH MCHC RDW Std Deviation RDW Coeff of Raul Plt Count MPV Immature Gran % (Auto) Neut % (Auto) Lymph % (Auto) Ashley % (Auto) Eos % (Auto) Baso % (Auto) Neut # (Auto) Lymph # (Auto) Ashley # (Auto) Eos # (Auto) Baso # (Auto) Immature Gran # (Auto) Polychromasia Anisocytosis Echinocytes Acanthocytes (Spur) Sample Site POC pH POC pCO2 POC pO2 POC HCO3 POC Total CO2 POC Base Excess POC ABG O2 Sat Kentrell Test VBG pH VBG pCO2 VBG pO2 VBG HCO3 VBG O2 Saturation VBG Base Excess O2 Delivery Device Sodium Potassium Chloride Carbon Dioxide Anion Gap BUN Creatinine Est Cr Clr Drug Dosing Est GFR ( Amer) Est GFR (Non-Af Amer) BUN/Creatinine Ratio Glucose POC Glucose 80 56 L* 60 L* Lactate Calcium Phosphorus Magnesium Total Bilirubin AST ALT Alkaline Phosphatase Troponin I High Sens Total Protein Albumin Globulin Albumin/Globulin Ratio 02/22/22 02/22/22 02/22/22 12:09 12:22 12:22 WBC 12.59 H RBC 4.61 L Hgb 12.2 L Hct 39.3 L MCV 85.2 MCH 26.5 MCHC 31.0 L RDW Std Deviation 62.3 H RDW Coeff of Raul 20.5 H Plt Count 218 MPV 10.2 Immature Gran % (Auto) 3.1 Neut % (Auto) 85.2 Lymph % (Auto) 7.0 Ashley % (Auto) 4.1 Eos % (Auto) 0.3 Baso % (Auto) 0.3 Neut # (Auto) 10.73 H Lymph # (Auto) 0.88 L Ashley # (Auto) 0.51 Eos # (Auto) 0.04 Baso # (Auto) 0.04 Immature Gran # (Auto) 0.39 H Polychromasia Anisocytosis Echinocytes Acanthocytes (Spur) Sample Site POC pH POC pCO2 POC pO2 POC HCO3 POC Total CO2 POC Base Excess POC ABG O2 Sat Kentrell Test VBG pH VBG pCO2 VBG pO2 VBG HCO3 VBG O2 Saturation VBG Base Excess O2 Delivery Device Sodium Pending Potassium Pending Chloride Pending Carbon Dioxide Pending Anion Gap Pending BUN Pending Creatinine Pending Est Cr Clr Drug Dosing Pending Est GFR ( Amer) Pending Est GFR (Non-Af Amer) Pending BUN/Creatinine Ratio Pending Glucose Pending POC Glucose 150 H Lactate Calcium Pending Phosphorus Pending Magnesium Pending Total Bilirubin Pending AST Pending ALT Pending Alkaline Phosphatase Pending Troponin I High Sens Pending Total Protein Pending Albumin Pending Globulin Pending Albumin/Globulin Ratio Pending 02/22/22 12:33 WBC RBC Hgb Hct MCV MCH MCHC RDW Std Deviation RDW Coeff of Raul Plt Count MPV Immature Gran % (Auto) Neut % (Auto) Lymph % (Auto) Ashley % (Auto) Eos % (Auto) Baso % (Auto) Neut # (Auto) Lymph # (Auto) Ashley # (Auto) Eos # (Auto) Baso # (Auto) Immature Gran # (Auto) Polychromasia Anisocytosis Echinocytes Acanthocytes (Spur) Sample Site POC pH POC pCO2 POC pO2 POC HCO3 POC Total CO2 POC Base Excess POC ABG O2 Sat Kentrell Test VBG pH VBG pCO2 VBG pO2 VBG HCO3 VBG O2 Saturation VBG Base Excess O2 Delivery Device Sodium Potassium Chloride Carbon Dioxide Anion Gap BUN Creatinine Est Cr Clr Drug Dosing Est GFR ( Amer) Est GFR (Non-Af Amer) BUN/Creatinine Ratio Glucose POC Glucose Lactate Pending Calcium Phosphorus Magnesium Total Bilirubin AST ALT Alkaline Phosphatase Troponin I High Sens Total Protein Albumin Globulin Albumin/Globulin Ratio PG Care Time/CCT Total # of Minutes Spent Total Time Spent with Patient: Total time spent is greater than 50% in coordination of care (as documented) at patient's floor/unit and/or counseling patient: Coding Level of Care Code 13380 Subseq Hosp Care Lvl 3 Diagnoses Cardiac arrest I46.9 Hypernatremia E87.0 Hoarseness of voice R49.0 COPD (chronic obstructive pulmonary disease) with chronic bronchitis J44.9 Hypophosphatemia E83.39 Acute respiratory failure with hypoxia and hypercapnia J96.01; J96.02 Shock R57.9 Drug reaction T50.905A Aspiration pneumonia J69.0 Acute metabolic encephalopathy G93.41 Sepsis A41.9 MP (acute kidney injury) N17.9 Adrenal insufficiency E27.40 Hypoglycemia E16.2 Dysphagia R13.10 CKD (chronic kidney disease) stage 2, GFR 60-89 ml/min N18.2 Benign prostate hyperplasia N40.0 Elevated troponin R77.8 Recurrent left pleural effusion J90 Hypokalemia E87.6 History of stroke Z86.73 Cellulitis, leg L03.119 Otitis externa H60.90 Hypomagnesemia E83.42 DVT prophylaxis Z29.9 Hypertension I10
[2022-02-22 13:03] LABS: Albumin Globulin Ratio 1.1 (0.9-2); Albumin Level 3.3 gm/dl (3.4-5.0); BUN Creatinine Ratio 13.6 (10-20); Bilirubin,Total 0.7 mg/dl (0.2-1.0); Calcium 8.4 mg/dl (8.5-10.1); Creatinine Clr Calc Pharmacy 68.3 ml/min; Est GFR (African American) 86.1 ml/min; Est GFR (Non-African American) 74.3 ml/min; Globulin 2.9 gm/dl (2.5-4.0); Magnesium 2.3 mg/dl (1.7-2.4); Phosphorus 2.9 mg/dl (2.5-4.9); Potassium 3.9 mmol/L (3.5-5.1); Total Protein 6.2 gm/dl (6.0-8.3)
--- NOTE | 2022-02-22 13:24 | Critical Care Consultation ---
Date of Consultation February 22, 2022 Assessment & Plan (1) Cardiac arrest: ICU Assessment and Plans Reason Critically Ill: 67-year-old male here with a PMHx significant for Stroke, stage III non-small cell lung cancer status postchemotherapy and radiation, bipolar, dysphagia, hoarse voice, COPD, HTN, Adrenal Insufficiency who presented with Sepsis, was in ICU 02/16 for shock (adrenal+septic possible anaphylactic from IV vanc) placed on BIPAP weaned to room air, downgraded and improved on 7 days of levoquin, and who was admitted to the ICU for presumed cardiac arrest with ROSC. Neuro - [facility] ICU: NEGATIVE Sedation: none Analgesia: none Hx stroke -resume ASA plavix when able -known bilateral ICA occlusion with collaterals Bipolar Disorder -hold bupropion 100mg daily -hold gabapentin 300mg TIB -hold quetiapine 25mg hs Cardiac - Presumed cardiac arrest. Code blue called on 02/22 patient found to be slumped over while waiting for XR, CPR administered for around 1 minute no medications or intubation used, patient later found to have a strong radial pulse opened eyes responded to questioning, admitted to ICU. -patient tolerating oxymask 95% no desat noted, low suspicion PE -will order venous dopplers -EKG wnl -normal troponin -CXR : No change in the partially loculated small left pleural effusion and left basilar airspace opacities. Interval improvement in the right suprahilar density. -continuous case monitor HTN -continue metoprolol tartrate IV 5mg q6h for now, may later decrease to q8h -stop hydralzine -stop midodrine Respiratory - -continue to monitor respiratory status COPD with bronchiectasis and scarring of bilateral upper lobe more on the right side -patient tolerating oxymask well -continue albuterol 2.5mg NEB QIDR -continue Arnuity Ellipta 1 puff daily -continue Anoro Ellipta 1 puff daily Respiratory Alkalosis - resolved -this morning patient had episode tachypnea and increased confusion -treated with duonebs and morphine -initial pH 7.61, pCO2 27, bicarb 27 -recheck VBG pH 7.41, pCO2 53 Recurrent Pulmonary Effusion -S/p thoracentesis, negative for malignancy or infection -stable, small, unchanged History of non-small cell lung cancer neck S/p chemo and radiation GI - NPO given ongoing Dysphagia -continue protonix 40mg IV BID Dysphagia -with increasing hoarse voice and weight loss -CT neck soft tissue: No acute inflammatory changes of the neck or lymphadenopathy. Gaseous distention of the airway and upper thoracic esophagus. 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 Occlusion of the internal carotid arteries may also be chronic, however is new from 2016. Stable appearance of the lung apices compared to the 01/11/2022 exam. -speech therapy consulted -GI consulted -s/p EGD 02/19 with dilatation of esophageal stenosis by Dr Blake. -repeat swallow study 02/19 poor -may need J tube in future Hypoglycemia -continue D5w 125ml/h q8h -currently 148 RENAL/LYTES - Hypernatremia -currently 143 (151 on 02/20) -use caution with IV fluids -continue to monitor Hypophosphatemia - resolved -currently 2.9 Hypokalemia -currently 3.9 (2.8 on 02/15) -continue to monitor CKD2 -creat 1.03 - No gallegos present, removed BPH -no voiding difficulty -hold dutasteride ENDO - Adrenal Insufficiency -continue Dexamethasone 2mg BID -(home dose is hydrocortisone 10mg am, 5mg pm) -nephrology consulted HEME - Stable H&H at 12.2 Will monitor for any drops in the setting of Heparin gtt ID - Aspiration PNA -completed 7 days levaquin, last day 02/22/2022 -WBC 12.59 -lactate 4.2 INTEGUMENTARY - Skin dry clean intact Hx MRSA from Otitis Externa -previous culture- 01/12/22 -Org 1 = Staph aureus MRSA -Org 2 = Stenotrophomonas maltophilia -Org 3 = Staphylococcus aureus -MRSA precautions Nicotine Dependence -continue nicoderm TD qam LINES/IV ACCESS - PIVs intact. DVT PROPHYLAXIS - -Heparin gtt. -venous dopplers ordered Thank you for allowing us to be part of this patient's care. Please refer to Dr. Loredo's documentation for any further recommendations. (2) Hypertension: (3) Aspiration pneumonia: (4) Hypernatremia: (5) Hoarseness of voice: (6) Adrenal insufficiency: (7) CKD (chronic kidney disease) stage 2, GFR 60-89 ml/min: (8) Dysphagia: (9) COPD (chronic obstructive pulmonary disease) with chronic bronchitis: (10) Recurrent left pleural effusion: (11) History of stroke: Supervising Physician Co-Signing Physician Notes Dr. Blandon was the resident-physician during care of patient. I separately ev aluated patient for trinh portions of the history and the exam. I was present during the critical portion of medical decision making, and I discussed the case with the resident. I generally agree with the findings and plan except for any additions/exceptions noted. 67-year-old male who presented to the hospital for shock and adrenal crisis. He was initially in the ICU and subsequently downgraded to room air. Past medical history: Multiple strokes, stage III non-small cell lung cancer s/p chemo and radiation, bipolar, chronic hoarse voice, COPD, adrenal insufficiency Patient was supposed to have swallow eval done where he had a CODE BLUE. Patient was unresponsive for a minute. CPR was started but within a minute patient woke up and had good radial pulse. No medications needed to be given. Patient was transferred directly to the ICU Constitutional: No acute distress HEENT: EOMI, PERRLA, hoarse voice Respiratory system: Decreased air entry bilaterally, no wheeze, no rhonchi, positive crackles bilateral lower lobes CVS: S1-S2 positive, no murmurs or gallops Abdomen: Soft, nontender, nondistended, positive bowel sounds x4 Extremities: +2 pulses bilaterally radialis/ dorsalis pedis, no cyanosis, no edema Neuro: Awake alert oriented x2, moving all the extremities appropriately. Strength 5/5 upper and lower extremity Psych: Normal mood and affect G/U: No Gallegos --Prophylaxis VTE: Heparin GI: Protonix Lines: Peripheral Diet: N.p.o. Plan: Patient was saturating 99% on 2 L nasal cannula at the time of examination. I highly doubt that PE being one of the reason for his unresponsiveness. Given the multiple strokes in the past I do think OHS/TE might be also playing a role in his unresponsiveness Lastly mucous plug can give similar finding. Chest x-ray post cardiac arrest did not show any significant change compared to before. He does have loculated left-sided pleural effusion which was drained 01/12/2022 and did not show any signs of infection or malignancy Because of his stroke as well as waxing and waning mentation BiPAP would not be appropriate. Overnight patient will also had respiratory alkalosis without hypoxia which could have been from panic attacks/anxiety Lactic acidosisis improving with IV fluids Patient was hypoglycemic as well for which she was started on D5 and amp of dextrose was given Keep the patient n.p.o. I have personally spent 55 minutes of critical care time in the direct management of this patient. This is a life/limb threatening event. This includes time spent evaluating patient, direct bedside care, chart review, placing orders, interpretation of diagnostic studies, discussion with consultants, patient, and/or family members regarding treatment decisions, as well as other required patient management activities. This time is exclusive of all separately billable procedures, and teaching time and separate from and in addition to any other critical care service time. History of Present Illness Reason for Consultation: Nicole Ac Requesting Physician: Adina Loredo MD Attending Physician: Omid Thomson History of Present Illness 67-year-old male here with a PMHx significant for Stroke, bipolar, stage III non-small cell lung cancer status postchemotherapy and radiation, dysphagia, hoarse voice, COPD, HTN, Adrenal Insufficiency given stress dose steroids who presented with Sepsis presumed 2/2 to aspiration pneumonia, was in ICU 02/16 for shock (adrenal+septic possible anaphylactic from IV vanc) placed on BIPAP weaned to room air, downgraded and improved on 7 days of levoquin, and who was admitted to the ICU for presumed cardiac arrest with ROSC. Patient was found slumped in chair at XR, nicole ac called CPR administered for around 1min no medications or intubation given, pulse check found strong radial pulse patient opened eyes to voice attempted to remove oxygen. At this time he is able to state his name, denies any pain SOB nausea vomitting headache dizziness, tolerating oxymask well though he routinely tries to remove it. Allergies Allergy/AdvReac Type Severity Reaction Status Date / Time piperacillin [From Zosyn] Allergy Severe Rash Verified 02/17/22 12:08 tazobactam [From Zosyn] Allergy Severe Rash Verified 02/17/22 12:08 vancomycin Allergy Severe Rash Verified 02/17/22 07:39 ciprofloxacin Allergy Mild RASH Verified 02/02/22 11:29 sulfamethoxazole Allergy Unknown Unknown Verified 02/02/22 11:29 [From Bactrim] trimethoprim [From Bactrim] Allergy Unknown Unknown Verified 02/02/22 11:29 Home Medications Medication Instructions Recorded Confirmed Type miscellaneous medical supply #1 ea 08/07/21 01/11/22 Rx albuterol sulfate 90 mcg/actuation 2 puff inhalation QID PRN 08/13/21 02/22/22 Rx aerosol inhaler (Ventolin HFA) shortness of breath or wheezing #18 grams melatonin 5 mg tablet 5 mg PO HS 08/13/21 02/02/22 History clopidogrel 75 mg tablet 75 mg PO QAM 30 days #90 tabs 09/04/21 02/22/22 Rx aspirin 81 mg chewable tablet 81 mg PO QAM 10/01/21 02/22/22 History dutasteride 0.5 mg capsule 0.5 mg PO QAM 10/01/21 02/02/22 History (Avodart) fluticasone fur. 100 mcg-umeclid 1 inh inhalation QAM 10/01/21 02/02/22 History 62.5 mcg-vilant 25 mcg inhalat.powder (Trelegy Ellipta) folic acid 1 mg tablet 1,000 mcg PO QAM 10/01/21 02/02/22 History tamsulosin 0.4 mg capsule 0.4 mg PO QAM 10/01/21 02/02/22 History gabapentin 300 mg capsule 300 mg PO TID 10/22/21 02/22/22 History hydrocortisone 10 mg tablet See Rx Instructions .Route 11/04/21 02/02/22 Rx (Cortef) .COMPLEX #45 tabs polyethylene glycol 3350 17 gram 17 g PO TID #21 ea 11/04/21 02/02/22 Rx oral powder packet (Miralax) quetiapine 25 mg tablet 25 mg PO HS #0 tabs 11/04/21 02/22/22 Rx sennosides 8.6 mg tablet (Senokot) 8.6 mg PO QAM #7 tabs 11/04/21 02/02/22 Rx lansoprazole 30 mg capsule,delayed 30 mg PO QAM 01/11/22 02/22/22 History release amoxicillin 875 mg-potassium 1 tab PO BID #7 tabs 01/14/22 02/22/22 Rx clavulanate 125 mg tablet midodrine 5 mg tablet 5 mg PO TID #90 tabs 01/14/22 02/22/22 Rx tobramycin 0.3 %-dexamethasone 0.1 1 drp ophthalmic (eye) QID #2.5 mL 01/21/22 02/02/22 Rx % eye drops,suspension (TobraDex) atorvastatin 40 mg tablet 40 mg PO QAM 90 days #90 tabs 01/29/22 02/22/22 Rx bupropion HCl 100 mg tablet 100 mg PO QAM #90 tabs 02/09/22 02/22/22 Rx Patient History Medical History Ataxic gait Bacteremia due to methicillin resistant Staphylococcus aureus hx? patient unsure of details Benign prostate hyperplasia Bilateral carotid artery occlusion Bipolar disorder Chlamydial proctitis hx 2018? Confusion poor historian COPD (chronic obstructive pulmonary disease) with chronic bronchitis Esophageal stenosis GERD (gastroesophageal reflux disease) Hepatic steatosis Hiatal hernia History of COVID-19 07/2020 ([facility]) HOSPITALIZED AT [facility] History of esophageal dilatation History of lung cancer (01/2016) 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 History of stroke Hospitalization within last 30 days treated at [facility] for several days -- patient unsure of why he was here? HTN (hypertension) Hypertension Medical marijuana use On anticoagulant therapy plavix daily On home oxygen therapy 3L n/c prn for SOB Osteomyelitis Peripheral arterial disease Peripheral neuropathy Pneumonia possible recent pneumonia? patient unsure. Poor historian Recurrent left pleural effusion s/p thoracentesis August 2018 Restless leg syndrome Schizoaffective disorder Surgical History H/O foot surgery LEFT HEEL REMOVAL FROM PRESSURE ULCER History of bronchoscopy (01/2016) History of colonoscopy History of esophagogastroduodenoscopy (EGD) with dilation (last12/2021, 11/23/21, 10/2021) History of herniorrhaphy History of lobectomy of lung LOWER LEFT LUNG S/P peripheral artery angioplasty with stent placement (06/2016) LLE [employer], 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 S/P thoracentesis (05/2019) L pleural effusion Status post femorofemoral bypass surgery (06/2016) [place] teeth removed Family History Brother Myocardial infarction Father Myocardial infarction Other Cancer Family history non-contributory Lung disease No family history of adverse response to anesthesia Denies family history of Tuberculosis Ovarian cancer Prostate cancer Diabetes Heart disease Allergies Breast cancer Emphysema, unspecified Lung cancer Colorectal cancer Asthma Social History Smoking Status: Former smoker Tobacco Type: Cigarettes Age Started Using Tobacco: 10; packs per day: 0.5; Years Smoked: 30; Cigarettes Per Day: 6-8 DAILY; Second Hand Exposure: No; Hx Alcohol Use: Yes Alcohol type: beer Alcohol Intake Frequency: 4 or More x per/Week Alcohol Intake Frequency Comment: mostly daily Hx Substance Use: No (medical THC (uses as directed)) Preferred Language: Armenian Communication Ability: Effective Visual Impairment: No Limitations Hearing Ability: Normal Mcat Instructor Required: No Beliefs That Will Affect Care: None marital status: Current Living Situation: Alone Current Living Situation Comment: Pt does have caregivers current occupational status: disabled How many Children do You have: 2 Feels Safe at Home: Yes Childhood Exposure to Second-Hand Smoke: Yes Diet Comment: regular caffeine: Yes (coffee 1 pot a day) during the past year weight has: remained stable Dental Care, Regularly: No Physical Activity Frequency: Does not Exercise Seatbelt Use: always Sunscreen Use: No Assistive Devices: Wheelchair Review of Systems Review of Systems: Negative fever chills Negative headache dizziness Negative chest pain palpitations SOB Negative nausea vomitting Physical Exam Constitutional: + thin, cooperative and comfortable Eyes: PERRL, conjunctivae normal, anicteric sclerae ENMT: external ear and nose normal, oropharynx normal Neck: trachea midline, no thyromegaly Respiratory: normal respiratory effort, lungs clear to auscultation Cardiovascular: RRR, no murmur, no edema Gastrointestinal (Abdomen): normal bowel sounds, soft, nontender, no hepatosplenomegaly Skin: no rashes, warm and dry Neurologic: hoarse voice Results & Data Results & Data ([facility]) Vital Signs (Past 12 Hours) Vital Signs Temp Pulse Pulse Pulse Resp BP BP 02/22/22 08:00 02/22/22 10:41 67 20 02/22/22 08:00 60 02/22/22 07:30 36.5 C 59 L 18 156/90 H 02/22/22 07:36 77 25 H 02/22/22 04:56 66 149/92 H 02/22/22 04:31 149/92 H 02/22/22 04:00 65 26 H 02/22/22 03:50 26 H Pulse Ox O2 Del Method O2 Flow Rate 02/22/22 08:00 Room Air 02/22/22 10:41 95 Room Air 02/22/22 08:00 02/22/22 07:30 100 Room Air 02/22/22 07:36 98 Room Air 02/22/22 04:56 02/22/22 04:31 02/22/22 04:00 97 Nasal Cannula 3 02/22/22 03:50 97 Nasal Cannula 3 Laboratory Results 02/22/22 02/22/22 02/22/22 Range/Units 12:33 12:22 12:22 WBC 12.59 H (4.8-10.8) K/ul RBC 4.61 L (4.63-6.08) M/uL Hgb 12.2 L (14.0-18.0) g/dl Hct 39.3 L (40.1-51.0) % MCV 85.2 (80.0-100.0) fL MCH 26.5 (25.0-34.0) pg MCHC 31.0 L (32.0-36.0) g/dL RDW Std Deviation 62.3 H (36.4-46.3) fL RDW Coeff of Raul 20.5 H (11.5-14.5) % Plt Count 218 (130-400) K/uL MPV 10.2 (9.4-12.4) fL Immature Gran % (Auto) 3.1 % Neut % (Auto) 85.2 % Lymph % (Auto) 7.0 % Sheridan % (Auto) 4.1 % Eos % (Auto) 0.3 % Baso % (Auto) 0.3 % Neut # (Auto) 10.73 H (1.4-6.5) K/uL Lymph # (Auto) 0.88 L (1.2-3.4) K/uL Sheridan # (Auto) 0.51 (0.24-0.82) K/uL Eos # (Auto) 0.04 (0-0.50) K/uL Baso # (Auto) 0.04 (0-0.2) K/uL Immature Gran # (Auto) 0.39 H (0.00-0.02) K/uL Polychromasia Anisocytosis Echinocytes Acanthocytes (Spur) Sample Site POC pH (7.35-7.45) POC pCO2 (35-46) mmHg POC pO2 (80-95) mmHg POC HCO3 (19-24) peyman/L POC Total CO2 (24-31) mmol/L POC Base Excess (-9-1.8) peyman/L POC ABG O2 Sat (90-95) % Kentrell Test VBG pH (7.36-7.41) VBG pCO2 (38-50) mmHg VBG pO2 mmHg VBG HCO3 mmol/L VBG O2 Saturation % VBG Base Excess mEq/L O2 Delivery Device Sodium Pending (136-145) mmol/L Potassium Pending (3.5-5.1) mmol/L Chloride Pending (98-107) mmol/L Carbon Dioxide Pending (21-32) mmol/L Anion Gap Pending (3-11) BUN Pending (6-23) mg/dl Creatinine Pending (0.6-1.4) mg/dl Est Cr Clr Drug Dosing Pending ml/min Est GFR ( Amer) Pending ml/min Est GFR (Non-Af Amer) Pending ml/min BUN/Creatinine Ratio Pending (10-20) Glucose Pending (70-99(Fasting)) mg/dl POC Glucose (70-99) mg/dl Lactate Pending Calcium Pending (8.5-10.1) mg/dl Phosphorus Pending Magnesium Pending (1.7-2.4) mg/dl Total Bilirubin Pending AST Pending ALT Pending Alkaline Phosphatase Pending Troponin I High Sens Cancelled Total Protein Pending Albumin Pending Globulin Pending Albumin/Globulin Ratio Pending 02/22/22 02/22/22 02/22/22 Range/Units 12:09 11:51 11:48 WBC (4.8-10.8) K/ul RBC (4.63-6.08) M/uL Hgb (14.0-18.0) g/dl Hct (40.1-51.0) % MCV (80.0-100.0) fL MCH (25.0-34.0) pg MCHC (32.0-36.0) g/dL RDW Std Deviation (36.4-46.3) fL RDW Coeff of Raul (11.5-14.5) % Plt Count (130-400) K/uL MPV (9.4-12.4) fL Immature Gran % (Auto) % Neut % (Auto) % Lymph % (Auto) % Sheridan % (Auto) % Eos % (Auto) % Baso % (Auto) % Neut # (Auto) (1.4-6.5) K/uL Lymph # (Auto) (1.2-3.4) K/uL Sheridan # (Auto) (0.24-0.82) K/uL Eos # (Auto) (0-0.50) K/uL Baso # (Auto) (0-0.2) K/uL Immature Gran # (Auto) (0.00-0.02) K/uL Polychromasia Anisocytosis Echinocytes Acanthocytes (Spur) Sample Site POC pH (7.35-7.45) POC pCO2 (35-46) mmHg POC pO2 (80-95) mmHg POC HCO3 (19-24) peyman/L POC Total CO2 (24-31) mmol/L POC Base Excess (-9-1.8) peyman/L POC ABG O2 Sat (90-95) % Kentrell Test VBG pH (7.36-7.41) VBG pCO2 (38-50) mmHg VBG pO2 mmHg VBG HCO3 mmol/L VBG O2 Saturation % VBG Base Excess mEq/L O2 Delivery Device Sodium (136-145) mmol/L Potassium (3.5-5.1) mmol/L Chloride (98-107) mmol/L Carbon Dioxide (21-32) mmol/L Anion Gap (3-11) BUN (6-23) mg/dl Creatinine (0.6-1.4) mg/dl Est Cr Clr Drug Dosing ml/min Est GFR ( Amer) ml/min Est GFR (Non-Af Amer) ml/min BUN/Creatinine Ratio (10-20) Glucose (70-99(Fasting)) mg/dl POC Glucose 150 H 60 L* 56 L* (70-99) mg/dl Lactate Calcium (8.5-10.1) mg/dl Phosphorus Magnesium (1.7-2.4) mg/dl Total Bilirubin AST ALT Alkaline Phosphatase Troponin I High Sens Total Protein Albumin Globulin Albumin/Globulin Ratio 02/22/22 02/22/22 02/22/22 Range/Units 11:29 06:29 04:10 WBC 14.40 H (4.8-10.8) K/ul RBC 4.80 (4.63-6.08) M/uL Hgb 12.9 L (14.0-18.0) g/dl Hct 39.3 L (40.1-51.0) % MCV 81.9 (80.0-100.0) fL MCH 26.9 (25.0-34.0) pg MCHC 32.8 (32.0-36.0) g/dL RDW Std Deviation 60.3 H (36.4-46.3) fL RDW Coeff of Raul 20.6 H (11.5-14.5) % Plt Count 290 (130-400) K/uL MPV 10.4 (9.4-12.4) fL Immature Gran % (Auto) 2.3 % Neut % (Auto) 83.7 % Lymph % (Auto) 9.6 % Sheridan % (Auto) 4.1 % Eos % (Auto) 0.1 % Baso % (Auto) 0.2 % Neut # (Auto) 12.05 H (1.4-6.5) K/uL Lymph # (Auto) 1.38 (1.2-3.4) K/uL Sheridan # (Auto) 0.59 (0.24-0.82) K/uL Eos # (Auto) 0.02 (0-0.50) K/uL Baso # (Auto) 0.03 (0-0.2) K/uL Immature Gran # (Auto) 0.33 H (0.00-0.02) K/uL Polychromasia 1+ Anisocytosis Present Echinocytes 1+ Acanthocytes (Spur) 1+ Sample Site POC pH (7.35-7.45) POC pCO2 (35-46) mmHg POC pO2 (80-95) mmHg POC HCO3 (19-24) peyman/L POC Total CO2 (24-31) mmol/L POC Base Excess (-9-1.8) peyman/L POC ABG O2 Sat (90-95) % Kentrell Test VBG pH 7.41 (7.36-7.41) VBG pCO2 53 H (38-50) mmHg VBG pO2 26 mmHg VBG HCO3 34 mmol/L VBG O2 Saturation < 60.0 % VBG Base Excess 7.3 mEq/L O2 Delivery Device Sodium (136-145) mmol/L Potassium (3.5-5.1) mmol/L Chloride (98-107) mmol/L Carbon Dioxide (21-32) mmol/L Anion Gap (3-11) BUN (6-23) mg/dl Creatinine (0.6-1.4) mg/dl Est Cr Clr Drug Dosing ml/min Est GFR ( Amer) ml/min Est GFR (Non-Af Amer) ml/min BUN/Creatinine Ratio (10-20) Glucose (70-99(Fasting)) mg/dl POC Glucose 80 (70-99) mg/dl Lactate Calcium (8.5-10.1) mg/dl Phosphorus Magnesium (1.7-2.4) mg/dl Total Bilirubin AST ALT Alkaline Phosphatase Troponin I High Sens Total Protein Albumin Globulin Albumin/Globulin Ratio 02/22/22 02/22/22 02/22/22 Range/Units 04:10 03:57 03:53 WBC (4.8-10.8) K/ul RBC (4.63-6.08) M/uL Hgb (14.0-18.0) g/dl Hct (40.1-51.0) % MCV (80.0-100.0) fL MCH (25.0-34.0) pg MCHC (32.0-36.0) g/dL RDW Std Deviation (36.4-46.3) fL RDW Coeff of Raul (11.5-14.5) % Plt Count (130-400) K/uL MPV (9.4-12.4) fL Immature Gran % (Auto) % Neut % (Auto) % Lymph % (Auto) % Sheridan % (Auto) % Eos % (Auto) % Baso % (Auto) % Neut # (Auto) (1.4-6.5) K/uL Lymph # (Auto) (1.2-3.4) K/uL Sheridan # (Auto) (0.24-0.82) K/uL Eos # (Auto) (0-0.50) K/uL Baso # (Auto) (0-0.2) K/uL Immature Gran # (Auto) (0.00-0.02) K/uL Polychromasia Anisocytosis Echinocytes Acanthocytes (Spur) Sample Site L Radial POC pH 7.61 H* (7.35-7.45) POC pCO2 27 L (35-46) mmHg POC pO2 112 H (80-95) mmHg POC HCO3 27 H (19-24) peyman/L POC Total CO2 28 (24-31) mmol/L POC Base Excess 6.0 H (-9-1.8) peyman/L POC ABG O2 Sat 99.0 H (90-95) % Kentrell Test Pass VBG pH (7.36-7.41) VBG pCO2 (38-50) mmHg VBG pO2 mmHg VBG HCO3 mmol/L VBG O2 Saturation % VBG Base Excess mEq/L O2 Delivery Device Cannula Sodium 143 (136-145) mmol/L Potassium 3.5 (3.5-5.1) mmol/L Chloride 107 (98-107) mmol/L Carbon Dioxide 29 (21-32) mmol/L Anion Gap 7 (3-11) BUN 13 (6-23) mg/dl Creatinine 0.97 (0.6-1.4) mg/dl Est Cr Clr Drug Dosing 72.2 ml/min Est GFR ( Amer) 92.6 ml/min Est GFR (Non-Af Amer) 79.9 ml/min BUN/Creatinine Ratio 13.4 (10-20) Glucose 118 H (70-99(Fasting)) mg/dl POC Glucose 135 H (70-99) mg/dl Lactate Calcium 8.7 (8.5-10.1) mg/dl Phosphorus Magnesium 2.2 (1.7-2.4) mg/dl Total Bilirubin AST ALT Alkaline Phosphatase Troponin I High Sens Total Protein Albumin Globulin Albumin/Globulin Ratio 02/22/22 02/21/22 02/21/22 Range/Units 00:06 16:24 16:23 WBC (4.8-10.8) K/ul RBC (4.63-6.08) M/uL Hgb (14.0-18.0) g/dl Hct (40.1-51.0) % MCV (80.0-100.0) fL MCH (25.0-34.0) pg MCHC (32.0-36.0) g/dL RDW Std Deviation (36.4-46.3) fL RDW Coeff of Raul (11.5-14.5) % Plt Count (130-400) K/uL MPV (9.4-12.4) fL Immature Gran % (Auto) % Neut % (Auto) % Lymph % (Auto) % Sheridan % (Auto) % Eos % (Auto) % Baso % (Auto) % Neut # (Auto) (1.4-6.5) K/uL Lymph # (Auto) (1.2-3.4) K/uL Sheridan # (Auto) (0.24-0.82) K/uL Eos # (Auto) (0-0.50) K/uL Baso # (Auto) (0-0.2) K/uL Immature Gran # (Auto) (0.00-0.02) K/uL Polychromasia Anisocytosis Echinocytes Acanthocytes (Spur) Sample Site POC pH (7.35-7.45) POC pCO2 (35-46) mmHg POC pO2 (80-95) mmHg POC HCO3 (19-24) peyman/L POC Total CO2 (24-31) mmol/L POC Base Excess (-9-1.8) peyman/L POC ABG O2 Sat (90-95) % Kentrell Test VBG pH (7.36-7.41) VBG pCO2 (38-50) mmHg VBG pO2 mmHg VBG HCO3 mmol/L VBG O2 Saturation % VBG Base Excess mEq/L O2 Delivery Device Sodium (136-145) mmol/L Potassium (3.5-5.1) mmol/L Chloride (98-107) mmol/L Carbon Dioxide (21-32) mmol/L Anion Gap (3-11) BUN (6-23) mg/dl Creatinine (0.6-1.4) mg/dl Est Cr Clr Drug Dosing ml/min Est GFR ( Amer) ml/min Est GFR (Non-Af Amer) ml/min BUN/Creatinine Ratio (10-20) Glucose (70-99(Fasting)) mg/dl POC Glucose 134 H 84 34 L* (70-99) mg/dl Lactate Calcium (8.5-10.1) mg/dl Phosphorus Magnesium (1.7-2.4) mg/dl Total Bilirubin AST ALT Alkaline Phosphatase Troponin I High Sens Total Protein Albumin Globulin Albumin/Globulin Ratio 09/18/22 Range/Units 16:22 WBC (4.8-10.8) K/ul RBC (4.63-6.08) M/uL Hgb (14.0-18.0) g/dl Hct (40.1-51.0) % MCV (80.0-100.0) fL MCH (25.0-34.0) pg MCHC (32.0-36.0) g/dL RDW Std Deviation (36.4-46.3) fL RDW Coeff of Raul (11.5-14.5) % Plt Count (130-400) K/uL MPV (9.4-12.4) fL Immature Gran % (Auto) % Neut % (Auto) % Lymph % (Auto) % Sheridan % (Auto) % Eos % (Auto) % Baso % (Auto) % Neut # (Auto) (1.4-6.5) K/uL Lymph # (Auto) (1.2-3.4) K/uL Sheridan # (Auto) (0.24-0.82) K/uL Eos # (Auto) (0-0.50) K/uL Baso # (Auto) (0-0.2) K/uL Immature Gran # (Auto) (0.00-0.02) K/uL Polychromasia Anisocytosis Echinocytes Acanthocytes (Spur) Sample Site POC pH (7.35-7.45) POC pCO2 (35-46) mmHg POC pO2 (80-95) mmHg POC HCO3 (19-24) peyman/L POC Total CO2 (24-31) mmol/L POC Base Excess (-9-1.8) peyman/L POC ABG O2 Sat (90-95) % [place]rell Test VBG pH (7.36-7.41) VBG pCO2 (38-50) mmHg VBG pO2 mmHg VBG HCO3 mmol/L VBG O2 Saturation % VBG Base Excess mEq/L O2 Delivery Device Sodium (136-145) mmol/L Potassium (3.5-5.1) mmol/L Chloride (98-107) mmol/L Carbon Dioxide (21-32) mmol/L Anion Gap (3-11) BUN (6-23) mg/dl Creatinine (0.6-1.4) mg/dl Est Cr Clr Drug Dosing ml/min Est GFR ( Amer) ml/min Est GFR (Non-Af Amer) ml/min BUN/Creatinine Ratio (10-20) Glucose (70-99(Fasting)) mg/dl POC Glucose 36 L* (70-99) mg/dl Lactate Calcium (8.5-10.1) mg/dl Phosphorus Magnesium (1.7-2.4) mg/dl Total Bilirubin AST ALT Alkaline Phosphatase Troponin I High Sens Total Protein Albumin Globulin Albumin/Globulin Ratio Diagnostic Findings Impressions Head CT 02/10/22 11:[address] DOSE: 614.27 mGy.cm HISTORY: Altered mental status. TECHNIQUE: Multiaxial CT images of the head were performed without the use of intravenous contrast. Automated exposure control was utilized for this study. A dose lowering technique was utilized adhering to the principles of ALARA. Comparison: Head CT 01/11/2022. Findings: The paranasal sinuses and mastoid air cells are clear. The calvarium and skull base are intact. There is no mass, hematoma, midline shift, acute infarct. White matter hypodensity is nonspecific but suggestive of microvascular ischemic change. The ventricles and sulci demonstrate mild age-related involutional changes. 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 Impression: No acute intracranial abnormality. ACT 112: Negative or not required by law. Electronically signed by: Patricio Burger M.D. 02/10/2022 11:55 AM Videofluoroscopic Swallow 02/12/22 11:00 FL video swallow CLINICAL HISTORY: assess for aspiration TECHNIQUE: Video fluoroscopy of the pharyngeal region was performed as barium mixtures of varying consistencies were administered to the patient by the speech pathologist. A formal esophagram was not performed. COMPARISON: None. FINDINGS: Total fluoroscopy time: 5.5 minutes. The patient swallowed the different barium consistencies without difficulty. Aspiration was seen with thin liquids. With solids, prolonged mastication was noted and she cannot swallow with liquid wash. Pooling of barium was noted in the bilateral piriform sinuses and valleculae. IMPRESSION: Aspiration was noted with thin liquids. Please see the speech pathology report for further details. ACT 112: Negative or not required by law. Electronically signed by: Lanre Douglass M.D. 02/12/2022 1:33 PM Brain MRI 02/14/22 08:59 MR brain wo/w con HISTORY: 67 years-old Male right facial droop.r/o CVA,brain mets acute strokelike symptoms COMPARISON: Head CT 02/10/2022, brain MRI 03/18/2021 TECHNIQUE: Multiplanar multisequence MRI of the brain was obtained both with and without the use of 7.6 cc Gadavist FINDINGS: [place] localizer images demonstrate no gross extracranial abnormality. There is no restricted diffusion to suggest acute or subacute infarct. Unremarkable midline structures. Degenerative changes of the imaged cervical spine. Study is motion degraded. No acute intracranial hemorrhage, midline shift, abnormal extra-axial collection, hydrocephalus or intracranial mass. Involutional changes. Mild to moderate T2/FLAIR hyperintense foci throughout the white matter are suggestive of chronic microvascular ischemic disease. Chronic left frontal lobe and left basal ganglia infarcts with gliosis. No abnormal enhancement. The mesial temporal lobes appear unremarkable. Loss of the normal flow voids within the distal internal carotid arteries is similar to the prior study. Cerebral venous sinuses are patent. Skull, orbits and soft tissues are unremarkable. Prior bilateral lens repair. Trace right mastoid effusion. The paranasal sinuses are clear. Central canal stenosis at C3- C4 secondary to discogenic degeneration and facet arthrosis. IMPRESSION: 1. No acute intracranial abnormality. No acute or subacute infarct. 2. Involutional changes with chronic microvascular ischemic disease. 3. Chronic left frontal lobe and left basal ganglia infarcts. 4. Loss of the normal flow voids within the distal internal carotid arteries is unchanged from 03/18/2021 and is likely secondary to stenosis from atherosclerotic vascular disease. 5. No abnormal enhancement. 6. There is at least mild central canal stenosis at C3-C4 secondary to a posterior annular disc bulge. ACT 112: Negative or not required by law. The above report was generated using voice recognition software. It may contain grammatical, syntax or spelling errors. Electronically signed by: Александр Moore M.D. 02/14/2022 12:[address] 02/21/22 18:40 CT soft tissue neck w con HISTORY: 67 years-old Male dysphagia; dysarthria; eval laryngeal path, etc acute dysphasia COMPARISON: Chest CT 01/11/2022, swallow study 02/12/2022, CTA chest 09/03/2021, CT soft tissue neck 02/07/2016. TECHNIQUE: Multiple axial CT images of the soft tissues of the neck were obtained following the intravenous administration of 93 mL Optiray. A dose lowering technique was used consistent with the principals of JHONATAN. FINDINGS: Prior bilateral lens repair. Involutional changes of the imaged brain parenchyma. Extensive atherosclerotic plaque of the thoracic aorta and carotid arteries. There is occlusion involving the bilateral common and internal carotid arteries. Occlusion of the common carotid arteries was present on the comparison CTA of the chest. There is reconstitution of flow within the external carotid arteries. Gaseous distention of the patent airway. There is also gaseous distention of the upper thoracic esophagus. No parapharyngeal or prevertebral fluid collections or pathologically enlarged lymph nodes identified. There may be mild fatty atrophy of the left vocal fold. Degenerative changes of the spine. No acute fracture. Linear consolidation of the upper lobes redemonstrated. Biapical pleural-parenchymal scarring with right upper lobe reticular nodular opacities and groundglass densities appear similar to prior. IMPRESSION: 1. No acute inflammatory changes of the neck or lymphadenopathy. 2. Gaseous distention of the airway and upper thoracic esophagus. 3. 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 Occlusion of the internal carotid arteries may also be chronic, however is new from 2016. 4. Stable appearance of the lung apices compared to the 01/11/2022 exam. ACT 112: Negative or not required by law. The above report was generated using voice recognition software. It may contain grammatical, syntax or spelling errors. Electronically signed by: Александр Moore M.D. 02/22/2022 9:13 AM Chest X-Ray 02/22/22 11:41 XR chest 1V portable HISTORY: Respiratory distress. code blue COMPARISON: Chest 02/22/2022. FINDINGS: No pneumothorax. Partially loculated small left pleural effusion and left basilar densities persist. A right suprahilar airspace opacity has slightly improved. The heart remains mildly enlarged. There are low lung volumes. IMPRESSION: 1. No change in the partially loculated small left pleural effusion and left basilar airspace opacities. 2. Interval improvement in the right suprahilar density. ACT 112: Negative or not required by law. Electronically signed by: Patricio Burger M.D. 02/22/2022 12:33 PM Medications Administered Current Inpatient Medications Albuterol (Albuterol 0.083% Nebu Soln 3 Ml Vial) 2.5 mg NEB QIDR GERMAN; Protocol Stop: 03/18/22 06:59 Last Admin: 02/22/22 10:40 Dose: 2.5 mg Dextrose (Dextrose 50% 50 Ml Syringe) 25 - 50 ml IV UD PRN; Protocol PRN Reason: Hypoglycemia Protocol Stop: 03/12/22 14:51 Last Admin: 02/22/22 11:55 Dose: 50 ml Fluticasone Furoate (Fluticasone Furoate 100mcg 14 Puffs/Inhaler) 1 puffs INH DAILY GERMAN; Protocol Stop: 03/13/22 08:59 Last Admin: 02/22/22 08:53 Dose: 1 puffs Glucagon (Glucagon For Inj 1 Mg Vial) 1 mg SQ UD PRN; Protocol PRN Reason: Hypoglycemia Protocol Stop: 03/12/22 14:51 Glucose (Glucose 40% Gel 15 Gm Tube) 15 - 30 gm PO UD PRN; Protocol PRN Reason: Hypoglycemia Protocol Stop: 03/12/22 14:51 Glucose (Glucose 10 Tab/Tube) 4 - 8 tab PO UD PRN; Protocol PRN Reason: Hypoglycemia Treatment Stop: 03/12/22 14:51 Heparin Sodium (Beef Lung) (Heparin 10 Unit/Ml 5 Ml Flush) 5 ml FLUSH PRN PRN PRN Reason: Flush Stop: 03/19/22 00:16 Last Admin: 02/17/22 04:39 Dose: 5 ml Heparin Sodium (Porcine) (Heparin Sod 5,000 Unit/0.5 Ml Vial) 5,000 units SQ Q8 GERMAN Stop: 03/12/22 14:51 Last Admin: 02/22/22 04:53 Dose: 5,000 units Levofloxacin/Dextrose (Levaquin/D5w) 750 mg in 150 mls @ 100 mls/hr IV Q24H GERMAN Stop: 02/23/22 09:59 Last Infusion: 02/22/22 12:56 Dose: Infused Pantoprazole Sodium 40 mg/ (Syringe) 10 mls @ 5 mls/min IV BID@0900,2100 [facility] Stop: 03/18/22 11:29 Last Admin: 02/22/22 08:53 Dose: 5 mls/min Dextrose (D5w) 1,000 mls @ 125 mls/hr IV .Q8H GERMAN Stop: 03/22/22 08:29 Last Admin: 02/22/22 08:49 Dose: 125 mls/hr Dexamethasone 2 mg/ Syringe 0.5 mls @ 1 mls/min IV BID GERMAN Stop: 03/22/22 20:59 Last Admin: 02/22/22 08:52 Dose: 1 mls/min Metoprolol Tartrate (Metoprolol Tartrate 1 Mg/Ml Vial) 5 mg IV Q6 GERMAN Stop: 03/20/22 20:29 Last Admin: 02/22/22 04:56 Dose: 5 mg Miscellaneous (Carbohydrates For Hypoglycemia ) 15 - 30 gm PO UD PRN PRN Reason: Hypoglycemia Protocol Stop: 03/12/22 14:51 Last Admin: 02/15/22 08:13 Dose: 15 gm Miscellaneous (Remove Nicoderm Patch) 1 each N/A DAILY@0859 [facility] Stop: 03/20/22 16:58 Last Admin: 02/22/22 08:51 Dose: Not Given Nicotine (Nicotine 21 Mg/24 Hr Tdsy) 21 mg TD QAM [facility]ER[facility] Stop: 03/20/22 16:59 Last Admin: 02/22/22 08:52 Dose: 21 mg Sodium Chloride (Sodium Chloride 0.65% Na Soln 45 Ml ([place])) 2 sprays NA Q6H PRN PRN Reason: nose irritation Stop: 03/23/22 04:29 Last Admin: 02/21/22 04:25 Dose: 2 sprays Umeclidinium/Vilanterol (Umeclidinium/Vilanterol 62.5/25mcg 7 Puffs/Inhaler) 1 puffs INH DAILY GERMAN; Protocol Stop: 03/13/22 08:59 Last Admin: 02/22/22 08:53 Dose: 1 puffs Resident Activity Tracking Resident Involvement: Resident Care Provided Care Provided: Adult [facility] Medicine
[2022-02-22 15:20] LABS: Echinocytes 1+; Polychromasia 1+
--- NOTE | 2022-02-22 16:57 | Billing Data ---
Date of Service February 22, 2022 Coding Level of Care Code Critical Care 1st 30-74 mins Time Spent (min) 55
[2022-02-23] MEDS: DEXTROSE 5% 1,000 ML IV SCH ×3 (03:59→18:10)
[2022-02-23] MEDS: METOPROLOL TARTRATE 1 MG/ML VIAL IV SCH (05:24)
[2022-02-23] MEDS: HEPARIN SOD 5,000 UNIT/0.5 ML VIAL SQ SCH ×3 (06:07→21:30)
--- NOTE | 2022-02-23 06:28 | Ultrasound Report ---
BILATERAL LOWER EXTREMITY VENOUS DOPPLER HISTORY: Acute pain and swelling of the lower legs r/o DVT, B/l COMPARISON STUDY: None. FINDINGS: There is normal compressibility, flow, and augmentation within the bilateral lower extremit y deep venous systems. The right common femoral, greater saphenous and profunda femoris veins are not visualized secondary to overlying bandage material. Right-sided Pina's cyst measures 1.5 x 3.0 x 0. 6 cm. Left-sided Pina's cyst measures 1.7 x 2.0 x 0.6 cm. IMPRESSION: No DVT within the right or left lower extremity. ACT 112: Negative or not required by law. Electronically signed by: Александр Moore M.D. 02/23/2022 6:26 AM
--- NOTE | 2022-02-23 07:16 | Hospitalist Progress Note ---
Date of Service February 23, 2022 Assessment & Plan (1) Cardiac arrest: Plan: exact etiology of 02/22/22 event is uncertain. no further events or arrythmia noted, per staff who found him unresponsive he was cyanotic and pulseless which led to initiation of CPR. no seizure activity seen. initial BSG was 80. no dysrhythmia seen during pulse checks during the code. CPR lasted 1-2 minutes most and patient woke up and started following commands. of note - patient HAD NOT started his video swallow test when this event occurred. He was simply sitting in a wheelchair. He said he was dizzy and hungry Seizure leading to syncope and altered level of consciousness? no specific etiology identified (2) Hypernatremia: Plan: improved may have component of central DI appreciate nephrology assistance defer vasopressin Rx, if needed, to nephrology did receive 1 dose of 4mcg IV x 1 on 02/15/22 (3) Hoarseness of voice: Plan: according to pt's sister this has been worsening for about 3-4 months he has had some element of dysarthria for some period of time but the quality of his voice is much, much worse per sister I reviewed copious records going back 6-12 months - there is no mention in any notation about hoarse voice or R facial droop until 01/2022 speech therapy notes mentioning these features failed video swallow 02/23/22, recommend secure permanent alternate feeding route (4) Acute respiratory failure with hypoxia and hypercapnia: Plan: 02/16/22 - 2nd to aspiration event/aspiration pneumonia. Required BIPAP - then NC O2 - then all supplemental O2 weaned off fully. Cont IV abx for pneumonia. NPO due to dysphagia. (5) COPD (chronic obstructive pulmonary disease) with chronic bronchitis: Plan: With exacerbation resolving had been improving with tapering steroids. Cont nebs. Cont IV dexamethasone 2mg BID. Cont Abx. (6) Shock: Plan: 02/16/22 -- RESOLVED. Was combination of adrenal shock + septic shock. May have had an element of anaphylaxis given his stridor, rash, and eosinophilia the day of his decompensation (02/16). Likely IV vanco allergy. (7) Drug reaction: Plan: Was on both zosyn + vanco IV when this reaction occurred on 02/15 and 02/16. Question of previous vanco allergy per prior records. Both zosyn and vanco stopped. Suspect vanco was culprit. Rash resolved with steroids. Cont supportive care. Both zosyn/vanco added to allergy list. (8) Hypophosphatemia: Plan: replaced/resolved (9) Aspiration pneumonia: Plan: Has been clinically improved/resolving. Dysphagia from prior strokes likely the culprit. Dilatation of esophageal stenosis this past Tuesday by Dr Blake did not improve his swallowing. CT soft tissue neck without any laryngeal mass seen. Cont Levaquin (levaquin to cover stenotrophomonas which grew from a previous external ear canal culture). Today is Day #7 of Levaquin. Plan total of 7 days of levaquin unless ICU attending extends his abx . (10) Acute metabolic encephalopathy: Plan: 2nd to hypercarbia, sepsis, shock, etc. Had Resolved, then was confused overnight and also during his cardiac event today. etiology?? consider repeat imaging of the head. (11) Sepsis: Plan: early in the admission -- 2nd to aspiration pneumonia; can't rule out RLE cellulitis having contributed either. Either way sepsis had resolved. Blood cultures from admission negative. Repeat blood cultures from 02/16 negative. Urine culture negative. (12) MP (acute kidney injury): Plan: Creatinine 1.89 at time of admission. Sepsis-associated ATN. resolved (13) Adrenal insufficiency: Plan: Received IV hydrocortisone for stress-dose steroids early in his stay, then weaned back to usual home doses. With shock on 02/16 placed back on high-dose hydrocortisone. Changed steroids to dexamethasone on 02/17 due to COPD flare. Weaning dexamethasone - now on 2mg BID. NO change in steroids today. 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 no evidence of ACS (16) Recurrent left pleural effusion: Plan: s/p thoracentesis last admission with trapped lung present fluid studies c/w exudative effusion but cytologies were NEGATIVE PULM did not recommend further thoracentesis Cont to follow with serial cxr (17) History of stroke: Plan: resume ASA, Plavix when able uses wheelchair at baseline, does not ambulate has known bilateral ICA occlusion but with collaterals patient and family uncertain of when the stroke occurred in the past 02/2021 CT head reports that the chronic appearing strokes on that CT were new in comparison to CT done in 2018; thus, CVAs occurred between 2018 and 02/2021 recent MRI brain with L frontal and L basal ganglia calderon that are old/chronic; no new stroke seen consider repeat head CT in light of today's events (18) Cellulitis, leg: Plan: RLE resolved (19) Otitis externa: Plan: previous culture- 01/12/22 Org 1 = Staph aureus MRSA Org 2 = Stenotrophomonas maltophilia Org 3 = Staphylococcus aureus resolved (20) Hypomagnesemia: Plan: repleted/resolved (21) DVT prophylaxis: Plan: heparin 5000 TID (22) Hypertension: Plan: changed to hydralazine due to slower heart rate Plan called and left message for sister Tanna Avery by phone 02/23/22 pt's son from [place] visited at bedside Sat, 02/20 Admission and Anticipated Discharge Date Admission Date: February 10, 2022 Subjective this pt is awake and alert, does not remember the events, did have swallowing study today without incident unfortunately completely failed study and will likely need alternate feeding route Review of Systems Review of Systems: Mild distress and fatigue no headache, no visual changes no speech issues, cough and failed swallowing test no chest pain, pressure or palpitations no shortness of breath, occasional productive cough no abdominal pain, nausea or vomiting, diarrhea or constipation no dysuria, hematuria or frequency no focal joint pain or swelling no back pain, CVA tenderness or radicular pain no bruising, bleeding or rashes no focal signs of weakness or numbness or altered sensation Physical Exam Physical Exam: The patient appeared chroncially ill and debilitated Vital signs as documented. Head exam is normocephalic atraumatic Neck is without JVD, thyromegaly, or carotid bruits. Lungs are diminshed at the bases and rhonchorous Cardiac exam, Rhythm is regular.. No murmurs, rubs or gallops. Abdominal exam reveals normal bowel sounds, soft non tender, no masses Extremities are nonedematous and both pedal pulses are present Neurologic exam is alert and oriented, no focal loss of strength or sensation Skin is without bruises or rashes Psychologically is without concerns for anxiety or depression.. Results & Data Results & Data ([facility]) Vital Signs (Past 12 Hours) Vital Signs Pulse Pulse Resp BP Pulse Ox O2 Del Method O2 Flow Rate 02/23/22 06:00 79 15 97 02/23/22 05:30 70 20 94 02/23/22 05:01 66 12 98 02/23/22 05:01 126/83 02/23/22 05:00 69 21 100 02/23/22 04:30 69 21 99 02/23/22 05:24 61 126/83 02/23/22 04:00 63 15 98 02/23/22 04:00 112/75 02/23/22 03:00 75 26 H 80 L 02/23/22 03:00 106/78 02/23/22 02:03 108/58 L 02/23/22 02:03 64 16 96 02/23/22 02:02 63 16 94 02/23/22 02:02 74/53 L 02/23/22 02:01 76/51 L 02/23/22 02:01 63 17 95 02/23/22 02:00 63 16 95 02/23/22 02:00 79/51 L 02/23/22 01:46 71 11 L 89 L 02/23/22 01:46 97/66 L 02/23/22 01:30 98/61 L 02/23/22 01:30 69 17 98 02/23/22 01:15 102/63 02/23/22 01:15 65 15 96 02/23/22 01:00 65 26 H 96 02/23/22 01:00 132/74 02/23/22 00:45 119/73 02/23/22 00:45 64 16 98 02/23/22 00:30 67 15 97 02/23/22 00:30 117/71 02/23/22 00:15 95/64 L 02/23/22 00:15 73 18 97 02/23/22 00:00 66 15 96 02/23/22 00:00 105/70 02/22/22 23:45 65 21 95 02/22/22 23:45 105/75 02/22/22 23:30 104/64 02/22/22 23:30 66 15 93 02/22/22 23:15 69 22 02/22/22 23:15 112/67 02/22/22 23:00 73 15 02/22/22 23:00 97/58 L 02/22/22 22:45 78 18 94 02/22/22 22:45 110/83 02/22/22 22:30 68 23 96 02/22/22 22:30 93/63 L 02/22/22 22:15 111/68 02/22/22 22:15 69 18 95 02/22/22 22:00 62 16 92 02/22/22 22:00 87/58 L 02/22/22 21:45 65 20 91 02/22/22 21:45 94/57 L 02/22/22 21:32 112/68 02/22/22 21:32 67 22 96 02/22/22 21:16 69 22 02/22/22 21:16 81/52 L 02/22/22 23:59 63 105/70 02/22/22 20:00 Oxymask 2 02/22/22 19:57 71 18 95 Oxymask 1 PG Care Time/CCT Total # of Minutes Spent Total Time Spent with Patient: Total time spent is greater than 50% in coordination of care (as documented) at patient's floor/unit and/or counseling patient: Coding Level of Care Code 76909 Subseq Hosp Care Lvl 3 Diagnoses Cardiac arrest I46.9 Hypernatremia E87.0 Hoarseness of voice R49.0 Acute respiratory failure with hypoxia and hypercapnia J96.01; J96.02 COPD (chronic obstructive pulmonary disease) with chronic bronchitis J44.9 Shock R57.9 Drug reaction T50.905A Hypophosphatemia E83.39 Aspiration pneumonia J69.0 Acute metabolic encephalopathy G93.41 Sepsis A41.9 MP (acute kidney injury) N17.9 Adrenal insufficiency E27.40 Benign prostate hyperplasia N40.0 Elevated troponin R77.8 Recurrent left pleural effusion J90 History of stroke Z86.73 Cellulitis, leg L03.119 Otitis externa H60.90 Hypomagnesemia E83.42 DVT prophylaxis Z29.9 Hypertension I10
[2022-02-23] MEDS: ALBUTEROL 0.083% NEBU SOLN 3 ML VIAL NEB SCH ×4 (07:19→19:35)
[2022-02-23 07:20] LABS: Anion Gap 13 (3-11); BUN Creatinine Ratio 13.7 (10-20); Blood Urea Nitrogen 14 mg/dl (6-23); Carbon Dioxide 22 mmol/L (21-32); Chloride 109 mmol/L (98-107); Creatinine Clr Calc Pharmacy 68.9 ml/min; Est GFR (African American) 87.1 ml/min; Est GFR (Non-African American) 75.2 ml/min; Glucose 96 mg/dl (70-99(Fasting)); Sodium 144 mmol/L (136-145)
[2022-02-23 07:23] LABS: Hematocrit (blood only) 41.2 % (40.1-51.0); Hemoglobin 13.7 g/dl (14.0-18.0); Mean Corpuscular Hemoglobin 26.7 pg (25.0-34.0); Mean Corpuscular Hgb Conc 33.3 g/dL (32.0-36.0); Mean Corpuscular Volume 80.3 fL (80.0-100.0); Mean Platelet Volume 10.3 fL (9.4-12.4); Platelet Count 207 K/uL (130-400); RDW Coefficient of Variation 20.4 % (11.5-14.5); Red Blood Count 5.13 M/uL (4.63-6.08); White Blood Count 15.91 K/ul (4.8-10.8)
[2022-02-23 07:37] LABS: Acanthocytes 1+; Anisocytosis Present; Basophils # (auto) 0.06 K/uL (0-0.2); Basophils % (auto) 0.4 %; Echinocytes 1+; Eosinophils # (auto) 0.02 K/uL (0-0.50); Eosinophils % (auto) 0.1 %; Immature Granulocytes # (auto) 0.54 K/uL (0.00-0.02); Immature Granulocytes % (auto) 3.4 %; Lymphocytes # (auto) 1.48 K/uL (1.2-3.4); Lymphocytes % (auto) 9.3 %; Neutrophils # (auto) 13.01 K/uL (1.4-6.5); Neutrophils % (auto) 81.8 %
[2022-02-23] MEDS ORDERED: hydrALAZINE HCL 20 MG/ML VIAL IV PRN (07:56)
--- NOTE | 2022-02-23 07:59 | Critical Care Progress Note ---
Date of Service February 23, 2022 Assessment & Plan (1) Cardiac arrest: Plan: ICU Assessment and Plans Reason Critically Ill: 67-year-old male here with a PMHx significant for Stroke, stage III non-small cell lung cancer status postchemotherapy and radiation, bipolar, dysphagia, hoarse voice, COPD, HTN, Adrenal Insufficiency who presented with Sepsis, was in ICU 02/16 for shock (adrenal+septic possible anaphylactic from IV vanc) placed on BIPAP weaned to room air, downgraded and improved on 7 days of levoquin, and who was admitted to the ICU for presumed cardiac arrest with ROSC. Neuro - CAM ICU: NEGATIVE Sedation: none Analgesia: none Hx stroke -resume ASA plavix when able -known bilateral ICA occlusion with collaterals Bipolar Disorder -hold bupropion 100mg daily -hold gabapentin 300mg TIB -hold quetiapine 25mg hs Cardiac - Presumed cardiac arrest. Code blue called on 02/22 patient found to be slumped over while waiting for XR, CPR administered for around 1 minute no medications or intubation used, patient later found to have a strong radial pulse opened eyes responded to questioning, admitted to ICU. -patient initially on oxymask downgraded and tolerating room air 95% no desat n oted, low suspicion PE -venous dopplers unremarkable -EKG wnl -normal troponin -CXR : No change in the partially loculated small left pleural effusion and left basilar airspace opacities. Interval improvement in the right suprahilar density. 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 -given his hx stroke, OHS/TE may have played a role in his unresponsiveness HTN -stop metoprolol tartrate IV 5mg q6h -may use hydralzine 5mg IV PRN -stop midodrine Respiratory - -continue to monitor respiratory status COPD -patient tolerating room air well -continue albuterol 2.5mg NEB QIDR -continue Arnuity Ellipta 1 puff daily -continue Anoro Ellipta 1 puff daily Respiratory Alkalosis - resolved -yesterday patient had episode tachypnea and increased confusion -treated with duonebs and morphine -initial pH 7.61, pCO2 27, bicarb 27 -recheck VBG pH 7.41, pCO2 53 -may be 2/2 to panic attack/anxiety Recurrent Pulmonary Effusion -stable, small, unchanged GI - NPO given ongoing Dysphagia -continue protonix 40mg IV BID Dysphagia -with increasing hoarse voice and weight loss -CT neck soft tissue: No acute inflammatory changes of the neck or lymphadenopathy. Gaseous distention of the airway and upper thoracic esophagus. 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 Occlusion of the internal carotid arteries may also be chronic, however is new from 2016. Stable appearance of the lung apices compared to the 01/11/2022 exam. -speech therapy consulted -GI consulted -s/p EGD 02/19 with dilatation of esophageal stenosis by Dr Blake. -repeat swallow study 02/19 poor -may need J tube in future RENAL/LYTES - Hypernatremia -currently 144 (151 on 02/20) -use caution with IV fluids -continue to monitor Hypophosphatemia - resolved -currently 2.9 Hypokalemia -currently 3.9 (2.8 on 02/15) -continue to monitor CKD2 -creat 1.02 - No gallegos present, removed BPH -no voiding difficulty -hold dutasteride ENDO - Adrenal Insufficiency -continue Dexamethasone 2mg BID -(home dose is hydrocortisone 10mg am, 5mg pm) -nephrology consulted Hypoglycemia -on D5w 125ml/h q8h -currently 88 -2/2 to his adrenal insufficiency, poor PO intake HEME - Stable H&H at 13.7 Will monitor for any drops in the setting of Heparin gtt ID - Aspiration PNA -completed 7 days levaquin -WBC 12.59-->15.91 -lactate 4.2-->2.8 downtrending with fluids -blood and urine cultures negative INTEGUMENTARY - Skin dry clean intact Hx MRSA from Otitis Externa -previous culture- 01/12/22 -Org 1 = Staph aureus MRSA -Org 2 = Stenotrophomonas maltophilia -Org 3 = Staphylococcus aureus -MRSA precautions Nicotine Dependence -continue nicoderm TD qam LINES/IV ACCESS - PIVs intact. DVT PROPHYLAXIS - -Heparin gtt. -venous dopplers negative Thank you for allowing us to be part of this patient's care. Please refer to Dr. Loredo's documentation for any further recommendations. Patient is stable for downgrade from ICU at this time. (2) Hypertension: (3) Aspiration pneumonia: (4) Hypernatremia: (5) Hoarseness of voice: (6) Adrenal insufficiency: (7) CKD (chronic kidney disease) stage 2, GFR 60-89 ml/min: (8) Dysphagia: (9) COPD (chronic obstructive pulmonary disease) with chronic bronchitis: (10) Recurrent left pleural effusion: (11) History of stroke: Admission and Anticipated Discharge Date Admission Date: February 10, 2022 Supervising Physician Co-Signing Physician Notes Dr. Blandon was the resident-physician during care of patient. I separately evaluated patient for trinh portions of the history and the exam. I was present during the critical portion of medical decision making, and I discussed the case with the resident. I generally agree with the findings and plan except for any additions/exceptions noted. Patient seen and examined at bedside. No acute distress, no adverse events overnight. Patient says that he is hungry and wants to eat. Denies any chest pain, no headache, no nausea, no vomiting, no abdominal pain Has been afebrile. Saturating well on room air. Constitutional: No acute distress HEENT: EOMI, PERRLA, hoarse voice, right-sided facial droop Respiratory system: Decreased air entry bilaterally, no wheeze, no rhonchi, positive crackles bilateral lower lobes CVS: S1-S2 positive, no murmurs or gallops Abdomen: Soft, nontender, nondistended, positive bowel sounds x4 Extremities: +2 pulses bilaterally radialis, decreased pulses bilaterally dorsalis pedis, no cyanosis, no edema Neuro: Awake alert oriented x3, moving all the extremities appropriately. Strength 5/5 upper and lower extremity Psych: Normal mood and affect G/U: No Gallegos --Prophylaxis VTE: Heparin GI: Protonix Lines: Peripheral Diet: N.p.o. Plan: In/out: +983, urine output 5 Will change dexamethasone to patient's home dose hydrocortisone IV. Patient has completed course of levofloxacin. DC IV metoprolol and continue with hydralazine 5-10 mg as needed systolic blood pressure greater than 150 Hypokalemia being replaced Patient hemodynamically stable to be downgraded to medical floor Please note the above document was generated using voice recognition software. It may contain grammatical, syntax or spelling errors.Any formal questions or concerns about the content, text or information contained within the body of this dictation should be directly addressed to the provider for clarification. Subjective Patient seen at bedside, calm comfortable cooperative. He confirms he is in [facility]. Denies any SOB chest pain, breathing well on room air, states he feels hungry. Per nursing noted cold extremities and some mottling on legs, however negative DVT on doppler and good pulses. Patient states he is not able to move toes on either foot and cannot move his right foot. Review of Systems Review of Systems: Negative fever chills Negative headache dizziness Negative chest pain palpitations SOB Negative nausea vomitting Physical Exam Constitutional: + thin, cooperative and comfortable Eyes: PERRL, conjunctivae normal, anicteric sclerae difficulty blinking right eye ENMT: external ear and nose normal, oropharynx normal ongoing right facial droop Neck: trachea midline, no thyromegaly Respiratory: cta b/l with crackles noted on b/l base Cardiovascular: RRR, no murmur, no edema Gastrointestinal (Abdomen): normal bowel sounds, soft, nontender, no hepatosplenomegaly Skin: no rashes, warm and dry mild mottling in b/l lower extremities with good pulses Neurologic: hoarse voice Results & Data Results & Data ([facility]) Vital Signs (Past 12 Hours) Vital Signs Pulse Pulse Resp BP Pulse Ox O2 Del Method O2 Flow Rate 02/23/22 07:19 69 18 95 Room Air 02/23/22 06:00 79 15 97 02/23/22 05:30 70 20 94 02/23/22 05:01 66 12 98 02/23/22 05:01 126/83 02/23/22 05:00 69 21 100 02/23/22 04:30 69 21 99 02/23/22 05:24 61 126/83 02/23/22 04:00 63 15 98 02/23/22 04:00 112/75 02/23/22 03:00 75 26 H 80 L 02/23/22 03:00 106/78 02/23/22 02:03 108/58 L 02/23/22 02:03 64 16 96 02/23/22 02:02 63 16 94 02/23/22 02:02 74/53 L 02/23/22 02:01 76/51 L 02/23/22 02:01 63 17 95 02/23/22 02:00 63 16 95 02/23/22 02:00 79/51 L 02/23/22 01:46 71 11 L 89 L 02/23/22 01:46 97/66 L 02/23/22 01:30 98/61 L 02/23/22 01:30 69 17 98 02/23/22 01:15 102/63 02/23/22 01:15 65 15 96 02/23/22 01:00 65 26 H 96 02/23/22 01:00 132/74 02/23/22 00:45 119/73 02/23/22 00:45 64 16 98 02/23/22 00:30 67 15 97 02/23/22 00:30 117/71 02/23/22 00:15 95/64 L 02/23/22 00:15 73 18 97 02/23/22 00:00 66 15 96 02/23/22 00:00 105/70 02/22/22 23:45 65 21 95 02/22/22 23:45 105/75 02/22/22 23:30 104/64 02/22/22 23:30 66 15 93 02/22/22 23:15 69 22 02/22/22 23:15 112/67 02/22/22 23:00 73 15 02/22/22 23:00 97/58 L 02/22/22 22:45 78 18 94 02/22/22 22:45 110/83 02/22/22 22:30 68 23 96 02/22/22 22:30 93/63 L 02/22/22 22:15 111/68 02/22/22 22:15 69 18 95 02/22/22 22:00 62 16 92 02/22/22 22:00 87/58 L 02/22/22 21:45 65 20 91 02/22/22 21:45 94/57 L 02/22/22 21:32 112/68 02/22/22 21:32 67 22 96 02/22/22 21:16 69 22 02/22/22 21:16 81/52 L 02/22/22 23:59 63 105/70 02/22/22 20:00 Oxymask 2 Laboratory Results 02/23/22 02/23/22 02/23/22 Range/Units 07:42 07:42 06:47 WBC (4.8-10.8) K/ul RBC (4.63-6.08) M/uL Hgb (14.0-18.0) g/dl Hct (40.1-51.0) % MCV (80.0-100.0) fL MCH (25.0-34.0) pg MCHC (32.0-36.0) g/dL RDW Std Deviation (36.4-46.3) fL RDW Coeff of Raul (11.5-14.5) % Plt Count (130-400) K/uL MPV (9.4-12.4) fL Immature Gran % (Auto) % Neut % (Auto) % Lymph % (Auto) % Randolph % (Auto) % Eos % (Auto) % Baso % (Auto) % Neut # (Auto) (1.4-6.5) K/uL Lymph # (Auto) (1.2-3.4) K/uL Randolph # (Auto) (0.24-0.82) K/uL Eos # (Auto) (0-0.50) K/uL Baso # (Auto) (0-0.2) K/uL Immature Gran # (Auto) (0.00-0.02) K/uL Polychromasia Anisocytosis Echinocytes Acanthocytes (Spur) Sodium 144 (136-145) mmol/L Potassium Pending TNP (3.5-5.1) mmol/L Chloride 109 H (98-107) mmol/L Carbon Dioxide 22 (21-32) mmol/L Anion Gap 13 H (3-11) BUN 14 (6-23) mg/dl Creatinine 1.02 (0.6-1.4) mg/dl Est Cr Clr Drug Dosing 68.9 ml/min Est GFR ( Amer) 87.1 ml/min Est GFR (Non-Af Amer) 75.2 ml/min BUN/Creatinine Ratio 13.7 (10-20) Glucose 96 (70-99(Fasting)) mg/dl POC Glucose 88 (70-99) mg/dl Lactate (0.4-2.0) mmol/L Calcium 9.0 (8.5-10.1) mg/dl Phosphorus (2.5-4.9) mg/dl Magnesium (1.7-2.4) mg/dl Total Bilirubin (0.2-1.0) mg/dl AST (13-39) U/L ALT (7-52) U/L Alkaline Phosphatase (34-104) U/L Troponin I High Sens Total Protein (6.0-8.3) gm/dl Albumin (3.4-5.0) gm/dl Globulin (2.5-4.0) gm/dl Albumin/Globulin Ratio (0.9-2) 02/23/22 02/22/22 02/22/22 Range/Units 06:47 14:35 13:09 WBC 15.91 H (4.8-10.8) K/ul RBC 5.13 (4.63-6.08) M/uL Hgb 13.7 L (14.0-18.0) g/dl Hct 41.2 (40.1-51.0) % MCV 80.3 D (80.0-100.0) fL MCH 26.7 (25.0-34.0) pg MCHC 33.3 (32.0-36.0) g/dL RDW Std Deviation 58.0 H (36.4-46.3) fL RDW Coeff of Raul 20.4 H (11.5-14.5) % Plt Count 207 (130-400) K/uL MPV 10.3 (9.4-12.4) fL Immature Gran % (Auto) 3.4 % Neut % (Auto) 81.8 % Lymph % (Auto) 9.3 % Randolph % (Auto) 5.0 % Eos % (Auto) 0.1 % Baso % (Auto) 0.4 % Neut # (Auto) 13.01 H (1.4-6.5) K/uL Lymph # (Auto) 1.48 (1.2-3.4) K/uL Randolph # (Auto) 0.80 (0.24-0.82) K/uL Eos # (Auto) 0.02 (0-0.50) K/uL Baso # (Auto) 0.06 (0-0.2) K/uL Immature Gran # (Auto) 0.54 H (0.00-0.02) K/uL Polychromasia Anisocytosis Present Echinocytes 1+ Acanthocytes (Spur) 1+ Sodium (136-145) mmol/L Potassium (3.5-5.1) mmol/L Chloride (98-107) mmol/L Carbon Dioxide (21-32) mmol/L Anion Gap (3-11) BUN (6-23) mg/dl Creatinine (0.6-1.4) mg/dl Est Cr Clr Drug Dosing ml/min Est GFR ( Amer) ml/min Est GFR (Non-Af Amer) ml/min BUN/Creatinine Ratio (10-20) Glucose (70-99(Fasting)) mg/dl POC Glucose (70-99) mg/dl Lactate 2.8 H* (0.4-2.0) mmol/L Calcium (8.5-10.1) mg/dl Phosphorus (2.5-4.9) mg/dl Magnesium (1.7-2.4) mg/dl Total Bilirubin (0.2-1.0) mg/dl AST (13-39) U/L ALT (7-52) U/L Alkaline Phosphatase (34-104) U/L Troponin I High Sens 7.3 D Total Protein (6.0-8.3) gm/dl Albumin (3.4-5.0) gm/dl Globulin (2.5-4.0) gm/dl Albumin/Globulin Ratio (0.9-2) 02/22/22 02/22/22 02/22/22 Range/Units 12:33 12:22 12:22 WBC 12.59 H (4.8-10.8) K/ul RBC 4.61 L (4.63-6.08) M/uL Hgb 12.2 L (14.0-18.0) g/dl Hct 39.3 L (40.1-51.0) % MCV 85.2 (80.0-100.0) fL MCH 26.5 (25.0-34.0) pg MCHC 31.0 L (32.0-36.0) g/dL RDW Std Deviation 62.3 H (36.4-46.3) fL RDW Coeff of Raul 20.5 H (11.5-14.5) % Plt Count 218 (130-400) K/uL MPV 10.2 (9.4-12.4) fL Immature Gran % (Auto) 3.1 % Neut % (Auto) 85.2 % Lymph % (Auto) 7.0 % Randolph % (Auto) 4.1 % Eos % (Auto) 0.3 % Baso % (Auto) 0.3 % Neut # (Auto) 10.73 H (1.4-6.5) K/uL Lymph # (Auto) 0.88 L (1.2-3.4) K/uL Randolph # (Auto) 0.51 (0.24-0.82) K/uL Eos # (Auto) 0.04 (0-0.50) K/uL Baso # (Auto) 0.04 (0-0.2) K/uL Immature Gran # (Auto) 0.39 H (0.00-0.02) K/uL Polychromasia 1+ Anisocytosis Echinocytes 1+ Acanthocytes (Spur) Sodium 143 (136-145) mmol/L Potassium 3.9 (3.5-5.1) mmol/L Chloride 105 (98-107) mmol/L Carbon Dioxide 30 (21-32) mmol/L Anion Gap 8 (3-11) BUN 14 (6-23) mg/dl Creatinine 1.03 (0.6-1.4) mg/dl Est Cr Clr Drug Dosing 68.3 ml/min Est GFR ( Amer) 86.1 ml/min Est GFR (Non-Af Amer) 74.3 ml/min BUN/Creatinine Ratio 13.6 (10-20) Glucose 148 H (70-99(Fasting)) mg/dl POC Glucose (70-99) mg/dl Lactate 4.2 H* (0.4-2.0) mmol/L Calcium 8.4 L (8.5-10.1) mg/dl Phosphorus 2.9 (2.5-4.9) mg/dl Magnesium 2.3 (1.7-2.4) mg/dl Total Bilirubin 0.7 (0.2-1.0) mg/dl AST 20 (13-39) U/L ALT 13 (7-52) U/L Alkaline Phosphatase 42 (34-104) U/L Troponin I High Sens Cancelled Total Protein 6.2 (6.0-8.3) gm/dl Albumin 3.3 L (3.4-5.0) gm/dl Globulin 2.9 (2.5-4.0) gm/dl Albumin/Globulin Ratio 1.1 (0.9-2) 02/22/22 02/22/22 02/22/22 Range/Units 12:09 11:51 11:48 WBC (4.8-10.8) K/ul RBC (4.63-6.08) M/uL Hgb (14.0-18.0) g/dl Hct (40.1-51.0) % MCV (80.0-100.0) fL MCH (25.0-34.0) pg MCHC (32.0-36.0) g/dL RDW Std Deviation (36.4-46.3) fL RDW Coeff of Raul (11.5-14.5) % Plt Count (130-400) K/uL MPV (9.4-12.4) fL Immature Gran % (Auto) % Neut % (Auto) % Lymph % (Auto) % Randolph % (Auto) % Eos % (Auto) % Baso % (Auto) % Neut # (Auto) (1.4-6.5) K/uL Lymph # (Auto) (1.2-3.4) K/uL Randolph # (Auto) (0.24-0.82) K/uL Eos # (Auto) (0-0.50) K/uL Baso # (Auto) (0-0.2) K/uL Immature Gran # (Auto) (0.00-0.02) K/uL Polychromasia Anisocytosis Echinocytes Acanthocytes (Spur) Sodium (136-145) mmol/L Potassium (3.5-5.1) mmol/L Chloride (98-107) mmol/L Carbon Dioxide (21-32) mmol/L Anion Gap (3-11) BUN (6-23) mg/dl Creatinine (0.6-1.4) mg/dl Est Cr Clr Drug Dosing ml/min Est GFR ( Amer) ml/min Est GFR (Non-Af Amer) ml/min BUN/Creatinine Ratio (10-20) Glucose (70-99(Fasting)) mg/dl POC Glucose 150 H 60 L* 56 L* (70-99) mg/dl Lactate (0.4-2.0) mmol/L Calcium (8.5-10.1) mg/dl Phosphorus (2.5-4.9) mg/dl Magnesium (1.7-2.4) mg/dl Total Bilirubin (0.2-1.0) mg/dl AST (13-39) U/L ALT (7-52) U/L Alkaline Phosphatase (34-104) U/L Troponin I High Sens Total Protein (6.0-8.3) gm/dl Albumin (3.4-5.0) gm/dl Globulin (2.5-4.0) gm/dl Albumin/Globulin Ratio (0.9-2) 02/22/22 Range/Units 11:29 WBC (4.8-10.8) K/ul RBC (4.63-6.08) M/uL Hgb (14.0-18.0) g/dl Hct (40.1-51.0) % MCV (80.0-100.0) fL MCH (25.0-34.0) pg MCHC (32.0-36.0) g/dL RDW Std Deviation (36.4-46.3) fL RDW Coeff of Raul (11.5-14.5) % Plt Count (130-400) K/uL MPV (9.4-12.4) fL Immature Gran % (Auto) % Neut % (Auto) % Lymph % (Auto) % Randolph % (Auto) % Eos % (Auto) % Baso % (Auto) % Neut # (Auto) (1.4-6.5) K/uL Lymph # (Auto) (1.2-3.4) K/uL Randolph # (Auto) (0.24-0.82) K/uL Eos # (Auto) (0-0.50) K/uL Baso # (Auto) (0-0.2) K/uL Immature Gran # (Auto) (0.00-0.02) K/uL Polychromasia Anisocytosis Echinocytes Acanthocytes (Spur) Sodium (136-145) mmol/L Potassium (3.5-5.1) mmol/L Chloride (98-107) mmol/L Carbon Dioxide (21-32) mmol/L Anion Gap (3-11) BUN (6-23) mg/dl Creatinine (0.6-1.4) mg/dl Est Cr Clr Drug Dosing ml/min Est GFR ( Amer) ml/min Est GFR (Non-Af Amer) ml/min BUN/Creatinine Ratio (10-20) Glucose (70-99(Fasting)) mg/dl POC Glucose 80 (70-99) mg/dl Lactate (0.4-2.0) mmol/L Calcium (8.5-10.1) mg/dl Phosphorus (2.5-4.9) mg/dl Magnesium (1.7-2.4) mg/dl Total Bilirubin (0.2-1.0) mg/dl AST (13-39) U/L ALT (7-52) U/L Alkaline Phosphatase (34-104) U/L Troponin I High Sens Total Protein (6.0-8.3) gm/dl Albumin (3.4-5.0) gm/dl Globulin (2.5-4.0) gm/dl Albumin/Globulin Ratio (0.9-2) Medications Administered Current Inpatient Medications Albuterol (Albuterol 0.083% Nebu Soln 3 Ml Vial) 2.5 mg NEB QIDR GERMAN; Protocol Stop: 03/18/22 06:59 Last Admin: 02/23/22 07:19 Dose: 2.5 mg Dextrose (Dextrose 50% 50 Ml Syringe) 25 - 50 ml IV UD PRN; Protocol PRN Reason: Hypoglycemia Protocol Stop: 03/12/22 14:51 Last Admin: 02/22/22 11:55 Dose: 50 ml Fluticasone Furoate (Fluticasone Furoate 100mcg 14 Puffs/Inhaler) 1 puffs INH DAILY GERMAN; Protocol Stop: 03/13/22 08:59 Last Admin: 02/22/22 08:53 Dose: 1 puffs Glucagon (Glucagon For Inj 1 Mg Vial) 1 mg SQ UD PRN; Protocol PRN Reason: Hypoglycemia Protocol Stop: 03/12/22 14:51 Glucose (Glucose 40% Gel 15 Gm Tube) 15 - 30 gm PO UD PRN; Protocol PRN Reason: Hypoglycemia Protocol Stop: 03/12/22 14:51 Glucose (Glucose 10 Tab/Tube) 4 - 8 tab PO UD PRN; Protocol PRN Reason: Hypoglycemia Treatment Stop: 03/12/22 14:51 Heparin Sodium (Beef Lung) (Heparin 10 Unit/Ml 5 Ml Flush) 5 ml FLUSH PRN PRN PRN Reason: Flush Stop: 03/19/22 00:16 Last Admin: 02/17/22 04:39 Dose: 5 ml Heparin Sodium (Porcine) (Heparin Sod 5,000 Unit/0.5 Ml Vial) 5,000 units SQ Q8 GERMAN Stop: 03/12/22 14:51 Last Admin: 02/23/22 06:07 Dose: 5,000 units Hydralazine HCl (Hydralazine Hcl 20 Mg/Ml Vial) 5 mg IV Q8H PRN PRN Reason: Hypertension Stop: 03/25/22 07:55 Levofloxacin/Dextrose (Levaquin/D5w) 750 mg in 150 mls @ 100 mls/hr IV Q24H GERMAN Stop: 02/23/22 09:59 Last Infusion: 02/22/22 12:56 Dose: Infused Pantoprazole Sodium 40 mg/ (Syringe) 10 mls @ 5 mls/min IV BID@0900,2100 [facility] Stop: 03/18/22 11:29 Last Admin: 02/22/22 21:02 Dose: 5 mls/min Dextrose (D5w) 1,000 mls @ 125 mls/hr IV .Q8H GERMAN Stop: 03/22/22 08:29 Last Admin: 02/23/22 03:59 Dose: 125 mls/hr Dexamethasone 2 mg/ Syringe 0.5 mls @ 1 mls/min IV BID GERMAN Stop: 03/22/22 20:59 Last Admin: 02/22/22 21:02 Dose: 1 mls/min Miscellaneous (Carbohydrates For Hypoglycemia ) 15 - 30 gm PO UD PRN PRN Reason: Hypoglycemia Protocol Stop: 03/12/22 14:51 Last Admin: 02/15/22 08:13 Dose: 15 gm Miscellaneous (Remove Nicoderm Patch) 1 each N/A DAILY@0859 [facility] Stop: 03/20/22 16:58 Last Admin: 02/22/22 08:51 Dose: Not Given Nicotine (Nicotine 21 Mg/24 Hr Tdsy) 21 mg TD QAM [facility] Stop: 03/20/22 16:59 Last Admin: 02/22/22 08:52 Dose: 21 mg Sodium Chloride (Sodium Chloride 0.65% Na Soln 45 Ml (Coyle)) 2 sprays NA Q6H PRN PRN Reason: nose irritation Stop: 03/23/22 04:29 Last Admin: 02/21/22 04:25 Dose: 2 sprays Umeclidinium/Vilanterol (Umeclidinium/Vilanterol 62.5/25mcg 7 Puffs/Inhaler) 1 puffs INH DAILY GERMAN; Protocol Stop: 03/13/22 08:59 Last Admin: 02/22/22 08:53 Dose: 1 puffs Resident Activity Tracking Resident Involvement: Resident Care Provided Care Provided: Adult Hospital Medicine
[2022-02-23] MEDS: PANTOprazole 40 MG in SYRINGE 0 ML IV SCH ×2 (08:18→20:42)
[2022-02-23] MEDS: UMECLIDINIUM/VILANTEROL 62.5/25MCG 7 PUFFS/INHALER INH SCH (08:18)
[2022-02-23] MEDS: dexAMETHasone 2 MG in SYRINGE 0 ML IV SCH (08:18)
[2022-02-23] MEDS: NICOTINE 21 MG/24 HR TDSY TD SCH (08:19)
[2022-02-23] MEDS: FLUTICASONE FUROATE 100MCG 14 PUFFS/INHALER INH SCH (08:19)
[2022-02-23] MEDS: POTASSIUM CHLORIDE / WTR 10 MEQ/100 ML PLCT IV SCH ×4 (10:52→14:51)
[2022-02-23 11:37] LABS: Phosphorus 2.6 mg/dl (2.5-4.9)
[2022-02-23 12:00] LABS: Magnesium 2.4 mg/dl (1.7-2.4)
--- NOTE | 2022-02-23 12:37 | Billing Data ---
Date of Service February 23, 2022 Coding Level of Care Code 32700 Subseq Hosp Care Lvl 2
--- NOTE | 2022-02-23 14:32 | Fluoroscopy Report ---
FL video swallow CLINICAL HISTORY: 67 years-old Male with assess for aspiration. Dysphasia with possible aspiration TECHNIQUE: Video fluoroscopic evaluation of swallowing was performed in the AP and lateral projection s by the speech pathology staff. The patient is fed thin liquid, mildly thick, moderately thick and p udding consistencies. FLUOROSCOPY TIME: 4.0 minutes. COMPARISON STUDY: 02/12/2022 FINDINGS: Silent aspiration with all consistencies. Gaseous distention of the airway is redemonstrate d. Residual noted within the vallecula. There is decreased hyoid excursion and epiglottic deflection. Upper esophageal dysmotility with decreased transit. Multilevel spondylitic spurring of the cervical spine. The patient is edentulous. IMPRESSION: 1. Multiple consistency aspiration as above. 2. Please see the speech pathologist report for detailed findings and recommendations. ACT 112: Negative or not required by law. Electronically signed by: Александр Moore M.D. 02/23/2022 2:30 PM
--- NOTE | 2022-02-23 15:28 | Electrocardiogram Report ---
Test Reason : Blood Pressure : / mmHG Vent. Rate : 067 BPM Atrial Rate : 067 BPM P-R Int : 130 ms QRS Dur : 070 ms QT Int : 448 ms P-R-T Axes : 006 007 036 degrees QTc Int : 473 ms Normal sinus rhythm Normal ECG When compared with ECG of 17-FEB-2022 13:32, Nonspecific T wave abnormality no longer evident in Inferior leads Nonspecific T wave abnormality, improved in Anterolateral leads Confirmed by Roberth Solis ([id number]) on 02/23/2022 3:28:18 PM Referred By: REFERRED SELF Confirmed By:Roberth Solis
[2022-02-23] MEDS: HYDROCORTISONE SOD 5 MG in SYRINGE 0 ML IV SCH (20:41)
[2022-02-24] MEDS: DEXTROSE 5% 1,000 ML IV SCH ×2 (02:00→10:47)
[2022-02-24] MEDS: HEPARIN SOD 5,000 UNIT/0.5 ML VIAL SQ SCH ×3 (06:19→21:44)
[2022-02-24] MEDS: ALBUTEROL 0.083% NEBU SOLN 3 ML VIAL NEB SCH ×4 (07:03→20:01)
[2022-02-24] MEDS ORDERED: HYDROCORTISONE SOD 10 MG in SYRINGE 0 ML IV SCH (09:00)
[2022-02-24] MEDS: PANTOprazole 40 MG in SYRINGE 0 ML IV SCH ×2 (09:33→21:44)
[2022-02-24] MEDS: UMECLIDINIUM/VILANTEROL 62.5/25MCG 7 PUFFS/INHALER INH SCH (09:34)
[2022-02-24] MEDS: FLUTICASONE FUROATE 100MCG 14 PUFFS/INHALER INH SCH (09:38)
[2022-02-24] MEDS: NICOTINE 21 MG/24 HR TDSY TD SCH (10:47)
[2022-02-24] MEDS ORDERED: TPN/PPN CONSULT PHARMACY STA ×2 (11:15)
[2022-02-24] MEDS ORDERED: TPN/PPN CONSULT PHARMACY PRN (11:34)
[2022-02-24 11:59] LABS: Hematocrit (blood only) 38.1 % (40.1-51.0); Hemoglobin 12.5 g/dl (14.0-18.0); Mean Corpuscular Hemoglobin 27.3 pg (25.0-34.0); Mean Corpuscular Hgb Conc 32.8 g/dL (32.0-36.0); Mean Corpuscular Volume 83.2 fL (80.0-100.0); Mean Platelet Volume 9.9 fL (9.4-12.4); Platelet Count 190 K/uL (130-400); RDW Coefficient of Variation 20.3 % (11.5-14.5); RDW Standard Deviation 60.4 fL (36.4-46.3); Red Blood Count 4.58 M/uL (4.63-6.08); White Blood Count 11.41 K/ul (4.8-10.8)
[2022-02-24 12:19] LABS: BUN Creatinine Ratio 14.5 (10-20); Bilirubin,Total 0.8 mg/dl (0.2-1.0); Calcium 8.4 mg/dl (8.5-10.1); Creatinine Clr Calc Pharmacy 63.1 ml/min; Est GFR (African American) 79.5 ml/min; Est GFR (Non-African American) 68.6 ml/min; Magnesium 2.2 mg/dl (1.7-2.4); Phosphorus 2.3 mg/dl (2.5-4.9)
[2022-02-24] MEDS ORDERED: POTASSIUM PHOSPHATE 15 MMOL in SODIUM CHLORIDE 0.9% 250 ML IV ONE (12:45)
[2022-02-24] MEDS ORDERED: THIAMINE HCL 100 MG in SYRINGE 9 ML IV ONE (13:30)
--- NOTE | 2022-02-24 14:13 | Pharmacy Report ---
Pharmacy PN Initial Consult - Date of Service February 24, 2022 - Scope Pharmacy has been consulted to manage parenteral nutrition orders and order appropriate labs. As part of the Nutrition Support Team guidelines, pharmacy will work in conjunction with dietary when determining the patients caloric needs. - Subjective The patient is a 67 year old M admitted on 02/10/22 13:29 for sepsis, pneumonia . Patient is to receive parenteral nutrition for prolonged NPO related to ongoing dysphagia with increased aspiration risk. - Objective Height: 5 ft 9 in Weight: 69.4 kg Intake & Output (Last 24Hrs): Intake & Output 02/22/22 02/23/22 02/24/22 02/25/22 06:59 06:59 06:59 06:59 Intake Total 3700 / 3700 3058.333 / 3058.333 3152.084 / 3152.084 1000 / 1000 Output Total 5000 / 5000 2075 / 2075 700 / 700 Balance -1300 / -1300 983.333 / 599.485 3861.084 / 2452.084 1000 / 1000 Weight 70.3 kg 70.3 kg 69.4 kg 69.4 kg Laboratory Data (Last 24 Hrs):: 02/24/22 02/24/22 11:28 11:28 Sodium 139 Potassium 3.0 L Chloride 104 Carbon Dioxide 28 BUN 16 Creatinine 1.10 Glucose 100 H Calcium 8.4 L Phosphorus 2.3 L Magnesium 2.2 Total Bilirubin 0.8 AST 19 ALT 14 Alkaline Phosphatase 48 Triglycerides 196 H Nutrition Assessment:: Please refer to the Notes section of the EMR for the 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 - Assessment * CH is a 67 year old male ordered peripheral parenteral nutrition today due to prolonged NPO status secondary to dysphagia/aspiration risk * S/p cardiac arrest on 02/22/22, hx of multiple strokes * Patient had previously been receiving D5W at 125 mL/hr, providing ~150 g of d extrose/day * Fluids will be discontinued at time of PPN initiation * Labs largely WNL except for potassium and phosphorus, discussed with provider and will replete with IV Kphos 15 mmol x 1 + KCl 10 mEq IV x 2 * Triglycerides marginally elevated at 196 mg/dL, will add lipids for now and recheck triglycerides in next couple of days * Prior hypernatremia this admission, will follow sodium closely - Plan For day 1 of PN administration, the following will be ordered: Macronutrients Amino acids 85 grams/day Dextrose 100 grams/day Lipids 50 grams/day Micronutrients Combined electrolytes 40 mL - contains 35 mEq Na, 20 meq K, 4.5 mEq Ca, 5 mEq Mg, 35 mEq Cl, 29.5 mEq acetate per 20 mL Potassium phosphate 21 MMol Potassium chloride 20 mEq Multivitamins 10 mL Trace Elements 10 mL Additional additives: thiamine 100 mg Total volume 2069 mL to be infused over 24 hrs will provide 1180 kcal/day Final osmolarity 816 mOsm/L (maximum for PPN is 900 mOsm/L) Labs to be ordered per PN order protocol Pharmacy will follow and adjust parenteral nutrition orders on a daily basis. Thank you.
[2022-02-24] MEDS: POTASSIUM CHLORIDE / WTR 10 MEQ/100 ML PLCT IV SCH ×2 (15:29→16:37)
[2022-02-24] MEDS ORDERED: AMINO ACIDS 4.25% IV SCH ×2 (16:00→17:15)
[2022-02-24] MEDS ORDERED: PERIPHERAL TPN IV SCH ×2 (16:00→17:15)
[2022-02-24] MEDS ORDERED: D5W IV SCH ×2 (16:00→17:15)
[2022-02-24] MEDS ORDERED: CLINOLIPID 20% IV FAT EMULSION 250 ML IV SCH (16:00)
[2022-02-24] MEDS: DEXTROSE 50% 50 ML SYRINGE IV PRN ×2 (18:50→21:24)
--- NOTE | 2022-02-24 19:50 | Hospitalist Progress Note ---
Date of Service February 24, 2022 Assessment & Plan (1) Cardiac arrest: Plan: exact etiology of 02/22/22 event is uncertain. no further events or arrythmia noted, per staff who found him unresponsive he was cyanotic and pulseless which led to initiation of CPR. no seizure activity seen. initial BSG was 80. no dysrhythmia seen during pulse checks during the code. CPR lasted 1-2 minutes most and patient woke up and started following commands. of note - patient HAD NOT started his video swallow test when this event occurred. He was simply sitting in a wheelchair. He said he was dizzy and hungry Seizure leading to syncope and altered level of consciousness? no specific etiology identified (2) Hypernatremia: Plan: improved may have component of central DI appreciate nephrology assistance defer vasopressin Rx, if needed, to nephrology did receive 1 dose of 4mcg IV x 1 on 02/15/22 (3) Hoarseness of voice: Plan: according to pt's sister this has been worsening for about 3-4 months he has had some element of dysarthria for some period of time but the quality of his voice is much, much worse per sister I reviewed copious records going back 6-12 months - there is no mention in any notation about hoarse voice or R facial droop until 01/2022 speech therapy notes mentioning these features failed video swallow 02/23/22, recommend secure permanent alternate feeding route (4) Acute respiratory failure with hypoxia and hypercapnia: Plan: 02/16/22 - 2nd to aspiration event/aspiration pneumonia. Required BIPAP - then NC O2 - then all supplemental O2 weaned off fully. Cont IV abx for pneumonia. NPO due to dysphagia. (5) COPD (chronic obstructive pulmonary disease) with chronic bronchitis: Plan: With exacerbation resolving had been improving with tapering steroids. Cont nebs. Cont IV dexamethasone 2mg BID. Cont Abx. (6) Shock: Plan: 02/16/22 -- RESOLVED. Was combination of adrenal shock + septic shock. May have had an element of anaphylaxis given his stridor, rash, and eosinophilia the day of his decompensation (02/16). Likely IV vanco allergy. (7) Drug reaction: Plan: Was on both zosyn + vanco IV when this reaction occurred on 02/15 and 02/16. Question of previous vanco allergy per prior records. Both zosyn and vanco stopped. Suspect vanco was culprit. Rash resolved with steroids. Cont supportive care. Both zosyn/vanco added to allergy list. (8) Hypophosphatemia: Plan: replaced/resolved (9) Aspiration pneumonia: Plan: Has been clinically improved/resolving. Dysphagia from prior strokes likely the culprit. Dilatation of esophageal stenosis this past Tuesday by Dr Blake did not improve his swallowing. CT soft tissue neck without any laryngeal mass seen. Cont Levaquin (levaquin to cover stenotrophomonas which grew from a previous external ear canal culture). Today is Day #7 of Levaquin. Plan total of 7 days of levaquin unless ICU attending extends his abx . (10) Acute metabolic encephalopathy: Plan: 2nd to hypercarbia, sepsis, shock, etc. Had Resolved, then was confused overnight and also during his cardiac event today. etiology?? consider repeat imaging of the head. (11) Sepsis: Plan: early in the admission -- 2nd to aspiration pneumonia; can't rule out RLE cellulitis having contributed either. Either way sepsis had resolved. Blood cultures from admission negative. Repeat blood cultures from 02/16 negative. Urine culture negative. (12) MP (acute kidney injury): Plan: Creatinine 1.89 at time of admission. Sepsis-associated ATN. resolved (13) Adrenal insufficiency: Plan: Received IV hydrocortisone for stress-dose steroids early in his stay, then weaned back to usual home doses. With shock on 02/16 placed back on high-dose hydrocortisone. Changed steroids to dexamethasone on 02/17 due to COPD flare. Weaning dexamethasone - now on 2mg BID. 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 no evidence of ACS (16) Recurrent left pleural effusion: Plan: s/p thoracentesis last admission with trapped lung present fluid studies c/w exudative effusion but cytologies were NEGATIVE PULM did not recommend further thoracentesis Cont to follow with serial cxr (17) History of stroke: Plan: resume ASA, Plavix when able uses wheelchair at baseline, does not ambulate has known bilateral ICA occlusion but with collaterals patient and family uncertain of when the stroke occurred in the past 02/2021 CT head reports that the chronic appearing strokes on that CT were new in comparison to CT done in 2018; thus, CVAs occurred between 2018 and 02/2021 recent MRI brain with L frontal and L basal ganglia calderon that are old/chronic; no new stroke seen consider repeat head CT in light of today's events (18) Cellulitis, leg: Plan: RLE resolved (19) Otitis externa: Plan: previous culture- 01/12/22 Org 1 = Staph aureus MRSA Org 2 = Stenotrophomonas maltophilia Org 3 = Staphylococcus aureus resolved (20) Hypomagnesemia: Plan: repleted/resolved (21) DVT prophylaxis: Plan: heparin 5000 TID (22) Hypertension: Plan: changed to hydralazine due to slower heart rate Plan called sister Tanna Avery by phone 02/24/22 pt's son from [place] visited at bedside Sat, 02/20 Admission and Anticipated Discharge Date Admission Date: February 10, 2022 Subjective this pt is awake and alert, does not remember the events, did have swallowing study today without incident unfortunately completely failed study and will likely need alternate feeding route Review of Systems Review of Systems: Mild distress and fatigue no headache, no visual changes no speech issues, cough and failed swallowing test no chest pain, pressure or palpitations no shortness of breath, occasional productive cough no abdominal pain, nausea or vomiting, diarrhea or constipation no dysuria, hematuria or frequency no focal joint pain or swelling no back pain, CVA tenderness or radicular pain no bruising, bleeding or rashes no focal signs of weakness or numbness or altered sensation Physical Exam Physical Exam: The patient appeared chroncially ill and debilitated Vital signs as documented. Head exam is normocephalic atraumatic Neck is without JVD, thyromegaly, or carotid bruits. Lungs are diminshed at the bases and rhonchorous Cardiac exam, Rhythm is regular.. No murmurs, rubs or gallops. Abdominal exam reveals normal bowel sounds, soft non tender, no masses Extremities are nonedematous and both pedal pulses are present Neurologic exam is alert and oriented, no focal loss of strength or sensation Skin is without bruises or rashes Psychologically is without concerns for anxiety or depression.. Results & Data Results & Data ([facility]) Vital Signs (Past 12 Hours) Vital Signs Temp Pulse Pulse Pulse Resp BP BP 02/24/22 16:00 74 02/24/22 15:49 97.9 F 74 18 159/100 H 02/24/22 15:23 72 18 02/24/22 10:56 02/24/22 10:37 79 18 02/24/22 08:00 62 02/24/22 08:00 97.7 F 64 19 110/74 Pulse Ox O2 Del Method 02/24/22 16:00 02/24/22 15:49 100 02/24/22 15:23 100 Room Air 02/24/22 10:56 Room Air 02/24/22 10:37 96 Room Air 02/24/22 08:00 02/24/22 08:00 100 Room Air PG Care Time/CCT Total # of Minutes Spent Total Time Spent with Patient: Total time spent is greater than 50% in coordination of care (as documented) at patient's floor/unit and/or counseling patient: Coding Level of Care Code 38785 Subseq Hosp Care Lvl 3 Diagnoses Cardiac arrest I46.9 Hypernatremia E87.0 Hoarseness of voice R49.0 Acute respiratory failure with hypoxia and hypercapnia J96.01; J96.02 COPD (chronic obstructive pulmonary disease) with chronic bronchitis J44.9 Shock R57.9 Drug reaction T50.905A Hypophosphatemia E83.39 Aspiration pneumonia J69.0 Acute metabolic encephalopathy G93.41 Sepsis A41.9 MP (acute kidney injury) N17.9 Adrenal insufficiency E27.40 Benign prostate hyperplasia N40.0 Elevated troponin R77.8 Recurrent left pleural effusion J90 History of stroke Z86.73 Cellulitis, leg L03.119 Otitis externa H60.90 Hypomagnesemia E83.42 DVT prophylaxis Z29.9 Hypertension I10
[2022-02-24 19:57] LABS: BUN Creatinine Ratio 17.2 (10-20); Calcium 8.7 mg/dl (8.5-10.1); Creatinine Clr Calc Pharmacy 70.1 ml/min; Est GFR (African American) 90.3 ml/min; Est GFR (Non-African American) 77.9 ml/min; Potassium 4.2 mmol/L (3.5-5.1)
[2022-02-24] MEDS: HYDROCORTISONE SOD 5 MG in SYRINGE 0 ML IV SCH (21:00)
[2022-02-24] MEDS ORDERED: STOP CLINOLIPID SCH (22:00)
[2022-02-24] MEDS ORDERED: LACTATED RINGER'S 250 ML IV ONE (23:36)
--- NOTE | 2022-02-25 00:25 | Communication Note ---
Date of Service: February 25, 2022 Notified by patient's nurse about varying blood sugars throughout the evening. Around 1840, he was found to have blood sugars ranging from 15-50; half an amp was pushed, and recheck was 122. At 2099, recheck was at 15-65full amp was pushed, recheck at 126. He continued to have PPN running throughout this time, no insulin had been ordered or given. Throughout this whole entire time, no apparent symptoms were observed; realization given to the fact that he has significant aphasia, however he continued to follow commands. A new glucometer was obtained following this. On my assessment at the bedside, patient denied any discomfort. He denied any dizziness or lightheadedness. Denied any abdominal pain. He was noted to have blood pressure approximately 80/40 with sluggish capillary refill. Blood sugar check at this time using a peripheral distal finger site was 88. Examination revealed a nontender abdomen. Distal extremities are warm but have sluggish capillary refill. He is able to follow commands and squeeze my hands when asked. Hypoglycemiaunclear whether this is genuine hypoglycemia or true; the fact that he did not have significant symptoms during the time of the profoundly low values (and w/ ongoing TPN) is reassuring for a technical error or poor capillary access-related sampling. However, consideration is given to his baseline neurologic status and history of adrenal insufficiency in the ICU that required IV hydrocortisone in the presence of septic shock, alongside his transient presence of his hypotension (which he has had a history of throughout his stay as well). He has remained on dexamethasone 2mg b.i.d. since that time, which should be sufficient. No accidental insulin administration. We will check serum labs now. Hypotensionalso asymptomatic, which is reassuring. Resolved with small 250cc bolus. Suspect deconditioning/nutritional status and increased vagal tone at n ight. In setting of the above concerns with adrenal function, however, will check labs. Plan discussed with RN and reviewed with attending. Will continue to closely monitor. If adrenal crisis is suspected based on work-up, will proceed with hydrocortisone IV. Resident Activity Tracking Resident Involvement: Resident Care Provided Care Provided: [facility]
[2022-02-25 00:35] LABS: Basophils # (auto) 0.03 K/uL (0-0.2); Basophils % (auto) 0.2 %; Eosinophils # (auto) 0.35 K/uL (0-0.50); Eosinophils % (auto) 2.3 %; Hematocrit (blood only) 36.5 % (40.1-51.0); Immature Granulocytes # (auto) 0.47 K/uL (0.00-0.02); Immature Granulocytes % (auto) 3.2 %; Lymphocytes # (auto) 0.59 K/uL (1.2-3.4); Mean Corpuscular Hemoglobin 27.3 pg (25.0-34.0); Mean Corpuscular Hgb Conc 32.9 g/dL (32.0-36.0); Mean Platelet Volume 10.1 fL (9.4-12.4); Monocytes # (auto) 0.65 K/uL (0.24-0.82); Monocytes % (auto) 4.4 %; Neutrophils # (auto) 12.82 K/uL (1.4-6.5); Neutrophils % (auto) 85.9 %; Platelet Count 195 K/uL (130-400); RDW Coefficient of Variation 20.4 % (11.5-14.5); RDW Standard Deviation 59.2 fL (36.4-46.3); White Blood Count 14.91 K/ul (4.8-10.8)
[2022-02-25 01:02] LABS: Albumin Globulin Ratio 1.2 (0.9-2); Albumin Level 3.3 gm/dl (3.4-5.0); BUN Creatinine Ratio 16.3 (10-20); Bilirubin,Total 0.6 mg/dl (0.2-1.0); Calcium 8.4 mg/dl (8.5-10.1); Creatinine Clr Calc Pharmacy 66.7 ml/min; Est GFR (African American) 85.1 ml/min; Est GFR (Non-African American) 73.4 ml/min; Globulin 2.7 gm/dl (2.5-4.0); Potassium 3.7 mmol/L (3.5-5.1)
[2022-02-25 01:23] LABS: Troponin I High Sensitivity 8.5 pg/ml (0-20)
[2022-02-25 01:52] LABS: Acanthocytes 2+; Echinocytes 2+; Polychromasia 1+; Schistocytes 1+; Tear Drop Cells 1+
[2022-02-25] MEDS: HEPARIN SOD 5,000 UNIT/0.5 ML VIAL SQ SCH ×3 (06:03→21:31)
[2022-02-25] MEDS: ALBUTEROL 0.083% NEBU SOLN 3 ML VIAL NEB SCH ×4 (07:02→20:09)
[2022-02-25 07:37] LABS: Hematocrit (blood only) 44.5 % (40.1-51.0); Hemoglobin 14.4 g/dl (14.0-18.0); Mean Corpuscular Hgb Conc 32.4 g/dL (32.0-36.0); Mean Corpuscular Volume 83.5 fL (80.0-100.0); RDW Coefficient of Variation 21.1 % (11.5-14.5); RDW Standard Deviation 61.6 fL (36.4-46.3); Red Blood Count 5.33 M/uL (4.63-6.08); White Blood Count 14.58 K/ul (4.8-10.8)
[2022-02-25 07:58] LABS: Albumin Level 3.7 gm/dl (3.4-5.0); BUN Creatinine Ratio 21.7 (10-20); Bilirubin Direct 0.1 mg/dl (0-0.2); Bilirubin,Total 0.6 mg/dl (0.2-1.0); Calcium 9.1 mg/dl (8.5-10.1); Creatinine Clr Calc Pharmacy 75.4 ml/min; Est GFR (African American) 98.7 ml/min; Est GFR (Non-African American) 85.2 ml/min; Magnesium 2.5 mg/dl (1.7-2.4); Phosphorus 3.2 mg/dl (2.5-4.9); Potassium 4.3 mmol/L (3.5-5.1); Total Protein 6.7 gm/dl (6.0-8.3)
[2022-02-25 08:35] LABS: Mean Platelet Volume 10.7 fL (9.4-12.4); Platelet Count 200 K/uL (130-400)
[2022-02-25] MEDS: PANTOprazole 40 MG in SYRINGE 0 ML IV SCH ×2 (08:39→21:31)
[2022-02-25] MEDS: UMECLIDINIUM/VILANTEROL 62.5/25MCG 7 PUFFS/INHALER INH SCH (08:40)
[2022-02-25] MEDS: NICOTINE 21 MG/24 HR TDSY TD SCH (08:41)
[2022-02-25] MEDS: FLUTICASONE FUROATE 100MCG 14 PUFFS/INHALER INH SCH (08:41)
[2022-02-25] MEDS: HYDROCORTISONE SOD 50 MG in SYRINGE 0 ML IV SCH ×3 (09:05→22:56)
--- NOTE | 2022-02-25 11:25 | Communication Note ---
Date of Service: February 25, 2022 Re-Consult placed by Dr. Justin Pelayo for new peg consideration on this patient who had EGD 02/19/22 showing small hiatal hernia, benign intrinsic m oderate stenosis. dilation was done. The patient had been recommended to be NPO with alternative feeds after his speech evaluation with video fluoroscopy. Discussed case with Dr. Ranodlph who advised on plan. Given the extent of the stenosis seen on recent EGD, peg tube will need to be placed surgically or with Interventional radiology.
[2022-02-25] MEDS ORDERED: GADOBUTROL 65ML VIAL IV ONE (13:28)
--- NOTE | 2022-02-25 15:01 | Magnetic Resonance Report ---
MR brain wo/w con HISTORY: 67 years-old Male facial droop swallowing dysfunction, eval stroke acute strokelike symptom s COMPARISON: Brain MRI 02/14/2022, 03/18/2021. TECHNIQUE: Multiplanar multisequence MRI of the brain was obtained both with and without the use of G adavist FINDINGS: City Planning Teacher localizer images demonstrate no gross extracranial abnormality. There is no restricted diffusio n to suggest acute or subacute infarct. Unremarkable midline structures. Degenerative changes of the imaged cervical spine. Study is motion degraded. No acute intracranial hemorrhage, midline shift, abn ormal extra-axial collection, hydrocephalus or intracranial mass. Involutional changes. Mild to moder ate T2/FLAIR hyperintense foci throughout the white matter are suggestive of chronic microvascular is chemic disease. Chronic left frontal lobe and left basal ganglia infarcts with gliosis. No abnormal e nhancement. The mesial temporal lobes appear unremarkable. Loss of the normal flow voids within the d istal internal carotid arteries is similar to the prior study. Cerebral venous sinuses are patent. Sk ull, orbits and soft tissues are unremarkable. Prior bilateral lens repair. Trace right mastoid effus ion. The paranasal sinuses are clear. Central canal stenosis at C3-C4 secondary to discogenic degener ation and facet arthrosis. IMPRESSION: 1. No acute intracranial abnormality. Stable exam from the study obtained 02/14/2022 without evidence of acute or subacute infarct. 2. Involutional changes with chronic microvascular ischemic disease. 3. Chronic left frontal lobe and left basal ganglia infarcts. 4. Loss of the normal flow voids within the distal internal carotid arteries is unchanged from 2020 and is likely secondary to stenosis from atherosclerotic vascular disease. 5. No abnormal enhancement. 6. There is at least mild central canal stenosis at C3-C4 secondary to a posterior annular disc bulge . ACT 112: Negative or not required by law. The above report was generated using voice recognition software. It may contain grammatical, syntax o r spelling errors. Electronically signed by: Александр Moore M.D. 02/25/2022 2:59 PM
[2022-02-25] MEDS ORDERED: PERIPHERAL TPN IV SCH (16:00)
[2022-02-25] MEDS ORDERED: D5W IV SCH (16:00)
[2022-02-25] MEDS ORDERED: CLINOLIPID 20% IV FAT EMULSION 250 ML IV SCH (16:00)
[2022-02-25] MEDS ORDERED: AMINO ACIDS 4.25% IV SCH (16:00)
--- NOTE | 2022-02-25 19:12 | Hospitalist Progress Note ---
Date of Service February 25, 2022 Assessment & Plan (1) Hoarseness of voice: Plan: according to pt's sister this has been worsening for about 3-4 months he has had some element of dysarthria for some period of time but the quality of his voice is much, much worse per sister I reviewed copious records going back 6-12 months - there is no mention in any notation about hoarse voice or R facial droop until 01/2022 speech therapy notes mentioning these features failed video swallow 02/23/22, recommend secure permanent alternate feeding route repeat MRI to see if new oracle adf consultant issue no new brain changes but many old injuries Gastroenterology feels that they cannot place peg due to esophageal stricture, this may impede core safe, now on ppn if peg is delayed may need tpn will as gen surgery to weigh in, if they feel they cannot do it here, will ask them to call referral center to transfer (2) Acute respiratory failure with hypoxia and hypercapnia: Plan: 02/16/22 - 2nd to aspiration event/aspiration pneumonia. Required BIPAP - then NC O2 - then all supplemental O2 weaned off fully. Completed IV abx for pneumonia. NPO due to dysphagia. (3) Cardiac arrest: Plan: exact etiology of 02/22/22 event is uncertain. no further events or arrythmia noted, per staff who found him unresponsive he was cyanotic and pulseless which led to initiation of CPR. no seizure activity seen. initial BSG was 80. no dysrhythmia seen during pulse checks during the code. CPR lasted 1-2 minutes most and patient woke up and started following commands. of note - patient HAD NOT started his video swallow test when this event occurred. He was simply sitting in a wheelchair. He said he was dizzy and hungry Seizure leading to syncope and altered level of consciousness? no specific etiology identified (4) COPD (chronic obstructive pulmonary disease) with chronic bronchitis: Plan: With exacerbation resolving had been improving with tapering steroids. Cont nebs. hydrocortisone for concern for adrenal supression (5) Hypernatremia: Plan: improved may have component of central DI appreciate nephrology assistance defer vasopressin Rx, if needed, to nephrology did receive 1 dose of 4mcg IV x 1 on 02/15/22 (6) Shock: Plan: 02/16/22 -- RESOLVED. Was combination of adrenal shock + septic shock. May have had an element of anaphylaxis given his stridor, rash, and eosinophilia the day of his decompensation (02/16). Likely IV vanco allergy. (7) Drug reaction: Plan: Was on both zosyn + vanco IV when this reaction occurred on 02/15 and 02/16. Question of previous vanco allergy per prior records. Both zosyn and vanco stopped. Suspect vanco was culprit. Rash resolved with steroids. Cont supportive care. Both zosyn/vanco added to allergy list. (8) Hypophosphatemia: Plan: replaced/resolved (9) Aspiration pneumonia: Plan: Has been clinically improved/resolving. Dysphagia from prior strokes likely the culprit. Dilatation of esophageal stenosis this past Tuesday by Dr Blake did not improve his swallowing. CT soft tissue neck without any laryngeal mass seen. completed levaquin (10) Acute metabolic encephalopathy: Plan: 2nd to hypercarbia, sepsis, shock, etc. Had Resolved, then was confused overnight and also during his cardiac event toda y. etiology?? no issues on repeat MRI of head (11) Sepsis: Plan: early in the admission -- 2nd to aspiration pneumonia; can't rule out RLE cellulitis having contributed either. Either way sepsis had resolved. Blood cultures from admission negative. Repeat blood cultures from 02/16 negative. Urine culture negative. (12) MP (acute kidney injury): Plan: Creatinine 1.89 at time of admission. Sepsis-associated ATN. resolved (13) Adrenal insufficiency: Plan: Received IV hydrocortisone for stress-dose steroids early in his stay, then weaned back to usual home doses. With shock on 02/16 placed back on high-dose hydrocortisone. 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 no evidence of ACS (16) Recurrent left pleural effusion: Plan: s/p thoracentesis last admission with trapped lung present fluid studies c/w exudative effusion but cytologies were NEGATIVE PULM did not recommend further thoracentesis Cont to follow with serial cxr (17) History of stroke: Plan: resume ASA, Plavix when able uses wheelchair at baseline, does not ambulate has known bilateral ICA occlusion but with collaterals patient and family uncertain of when the stroke occurred in the past 02/2021 CT head reports that the chronic appearing strokes on that CT were new in comparison to CT done in 2018; thus, CVAs occurred between 2018 and 02/2021 recent MRI brain with L frontal and L basal ganglia calderon that are old/chronic; no new stroke seen consider repeat head CT in light of today's events (18) Cellulitis, leg: Plan: RLE resolved (19) Otitis externa: Plan: previous culture- 01/12/22 Org 1 = Staph aureus MRSA Org 2 = Stenotrophomonas maltophilia Org 3 = Staphylococcus aureus resolved (20) Hypomagnesemia: Plan: repleted/resolved (21) DVT prophylaxis: Plan: heparin 5000 TID (22) Hypertension: Plan: changed to hydralazine due to slower heart rate Plan called sister Tanna Avery by phone 02/24/22 pt's son from [place] visited at bedside Sat, 02/20 Admission and Anticipated Discharge Date Admission Date: February 10, 2022 Subjective this pt is awake and alert, does not remember the events, did have swallowing study without incident unfortunately completely failed study and will likely need alternate feeding route Pt is in agreement for peg placement unfortunately gastroenterology feels he cannot have peg placed endoscopically and need to have surgical placement. Review of Systems Review of Systems: Mild distress and fatigue no headache, no visual changes some dysarthric speech issues, cough and failed swallowing test no chest pain, pressure or palpitations no shortness of breath, occasional productive cough no abdominal pain, nausea or vomiting, diarrhea or constipation no dysuria, hematuria or frequency no focal joint pain or swelling no back pain, CVA tenderness or radicular pain no bruising, bleeding or rashes overall very weakend seems to be progression from prevous cva Physical Exam Physical Exam: The patient appeared chroncially ill and debilitated Vital signs as documented. Head exam is normocephalic atraumatic Neck is without JVD, thyromegaly, or carotid bruits. Lungs are diminshed at the bases and rhonchorous Cardiac exam, Rhythm is regular.. No murmurs, rubs or gallops. Abdominal exam reveals normal bowel sounds, soft non tender, no masses Extremities are nonedematous and both pedal pulses are present Neurologic exam is alert and oriented, no focal loss of strength or sensation Skin is without bruises or rashes Psychologically is without concerns for anxiety or depression.. Results & Data Results & Data ([facility]) Vital Signs (Past 12 Hours) Vital Signs Temp Pulse Pulse Pulse Resp BP Pulse Ox 02/25/22 15:24 97.7 F 93 H 19 132/94 100 02/25/22 14:43 93 H 02/25/22 14:41 88 18 100 02/25/22 11:19 97.9 F 79 20 101/75 100 02/25/22 10:43 91 H 18 100 02/25/22 09:39 02/25/22 08:00 67 02/25/22 07:41 97.9 F 79 20 101/75 100 O2 Del Method 02/25/22 15:24 Room Air 02/25/22 14:43 02/25/22 14:41 Room Air 02/25/22 11:19 Room Air 02/25/22 10:43 Room Air 02/25/22 09:39 Room Air 02/25/22 08:00 02/25/22 07:41 Room Air PG Care Time/CCT Total # of Minutes Spent Total Time Spent with Patient: Total time spent is greater than 50% in coordination of care (as documented) at patient's floor/unit and/or counseling patient: Coding Level of Care Code 69986 Subseq Hosp Care Lvl 3 Diagnoses Hoarseness of voice R49.0 Acute respiratory failure with hypoxia and hypercapnia J96.01; J96.02 Cardiac arrest I46.9 COPD (chronic obstructive pulmonary disease) with chronic bronchitis J44.9 Hypernatremia E87.0 Shock R57.9 Drug reaction T50.905A Hypophosphatemia E83.39 Aspiration pneumonia J69.0 Acute metabolic encephalopathy G93.41 Sepsis A41.9 MP (acute kidney injury) N17.9 Adrenal insufficiency E27.40 Benign prostate hyperplasia N40.0 Elevated troponin R77.8 Recurrent left pleural effusion J90 History of stroke Z86.73 Cellulitis, leg L03.119 Otitis externa H60.90 Hypomagnesemia E83.42 DVT prophylaxis Z29.9 Hypertension I10
[2022-02-25] MEDS ORDERED: STOP CLINOLIPID SCH (22:00)
[2022-02-26] MEDS: HEPARIN SOD 5,000 UNIT/0.5 ML VIAL SQ SCH ×3 (05:45→22:10)
[2022-02-26] MEDS: ALBUTEROL 0.083% NEBU SOLN 3 ML VIAL NEB SCH ×4 (07:16→20:10)
[2022-02-26 07:30] LABS: Alanine Aminotransferase 14 U/L (7-52); Albumin Level 3.6 gm/dl (3.4-5.0); Alkaline Phosphatase 55 U/L (34-104); Anion Gap 6 (3-11); BUN Creatinine Ratio 32.9 (10-20); Bilirubin,Total 0.6 mg/dl (0.2-1.0); Blood Urea Nitrogen 28 mg/dl (6-23); Calcium 8.8 mg/dl (8.5-10.1); Carbon Dioxide 26 mmol/L (21-32); Chloride 111 mmol/L (98-107); Creatinine Clr Calc Pharmacy 83.2 ml/min; Est GFR (African American) 103.8 ml/min; Est GFR (Non-African American) 89.5 ml/min; Glucose 103 mg/dl (70-99(Fasting)); Magnesium 2.6 mg/dl (1.7-2.4); Phosphorus 3.5 mg/dl (2.5-4.9); Sodium 143 mmol/L (136-145); Total Protein 6.8 gm/dl (6.0-8.3); Triglycerides 102 mg/dl (0-150)
[2022-02-26] MEDS: HYDROCORTISONE SOD 50 MG in SYRINGE 0 ML IV SCH ×2 (07:33→15:40)
[2022-02-26] MEDS: PANTOprazole 40 MG in SYRINGE 0 ML IV SCH (08:41)
[2022-02-26] MEDS: NICOTINE 21 MG/24 HR TDSY TD SCH (08:41)
[2022-02-26] MEDS: UMECLIDINIUM/VILANTEROL 62.5/25MCG 7 PUFFS/INHALER INH SCH (08:43)
[2022-02-26] MEDS: FLUTICASONE FUROATE 100MCG 14 PUFFS/INHALER INH SCH (08:44)
[2022-02-26 10:22] LABS: Bilirubin Direct 0.1 mg/dl (0-0.2); Potassium 4.5 mmol/L (3.5-5.1)
--- NOTE | 2022-02-26 11:04 | Surgery Consultation ---
Date of Consultation February 26, 2022 Assessment & Plan (1) Aspiration pneumonia: pt is a 67 year-old male who was admitted to hospital for sepsis with lung infection, lung cancer stroke, aspiration, GI doctor did EGD finding- esophageal stenosis, but the EGD into stomach, plan, pt is benefits from PEG which is minimal invasive procedure, recommend re- consult [facility] GI doctor for PEG, or transfer to [facility] for interventional radiology for PEG, I think this first option, or I will do surgical insertion feeding tube if no one wants to do PEG, D/W pt about the plans, pt agrees with it, I answered all questions, and D/W pt's attending, Justin Pelayo MD Supervising Physician Co-Signing Physician Notes Dr. Blandon was the resident-physician during care of patient. I separately evaluated patient for trinh portions of the history and the exam. I was present during the critical portion of medical decision making, and I discussed the case with the resident. I generally agree with the findings and plan except for any additions/exceptions noted. Patient seen and examined at bedside. No acute distress, no adverse events overnight. Patient says that he is hungry and wants to eat. Denies any chest pain, no headache, no nausea, no vomiting, no abdominal pain Has been afebrile. Saturating well on room air. Constitutional: No acute distress HEENT: EOMI, PERRLA, hoarse voice, right-sided facial droop Respiratory system: Decreased air entry bilaterally, no wheeze, no rhonchi, positive crackles bilateral lower lobes CVS: S1-S2 positive, no murmurs or gallops Abdomen: Soft, nontender, nondistended, positive bowel sounds x4 Extremities: +2 pulses bilaterally radialis, decreased pulses bilaterally dorsalis pedis, no cyanosis, no edema Neuro: Awake alert oriented x3, moving all the extremities appropriately. Strength 5/5 upper and lower extremity Psych: Normal mood and affect G/U: No Swartz --Prophylaxis VTE: Heparin GI: Protonix Lines: Peripheral Diet: N.p.o. Plan: In/out: +983, urine output 5 Will change dexamethasone to patient's home dose hydrocortisone IV. Patient has completed course of levofloxacin. DC IV metoprolol and continue with hydralazine 5-10 mg as needed systolic blood pressure greater than 150 Hypokalemia being replaced Patient hemodynamically stable to be downgraded to medical floor Please note the above document was generated using voice recognition software. It may contain grammatical, syntax or spelling errors.Any formal questions or concerns about the content, text or information contained within the body of this dictation should be directly addressed to the provider for clarification. History of Present Illness Reason for Consultation: feeding tube Requesting Physician: Justin Pelayo MD Attending Physician: Justin Pelayo MD History of Present Illness History of Present Illness Primary Care Provider: PETE Chawla 67 YOM with medical history of: NSCLC stage III, PAD/PVD with fem-fem bypass, bilateral carotid occlusions(perfusion is done through is verts), HTN, COPD, BPH, bipolar disorder and chronic recurrent left pleural effusion. Patient lung cancer was IIIA adenocarcinoma and received chemo and radiation, Oxygen use, HTN, Bipolar, Adrenal Insufficiency, BPH, Esophageal Stenosis, Hiatal Hernia, otitis externa. Patient was previously admitted in January for hypoxic respiratory failure with superimposed pneumonia and pleural effusion with trapped lung. Patient was discharged on Augmentin and to home with his care givers. Patient presents today febrile hypotensive, hypoxic and with productive cough of thick yellow green sputum. Patient is encephalopathic and unsure if he is taking his medications at home. He states he thought he was going out to celebrate his birthday and ended up at the hospital. 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 He had routine labs performed to include lactate and blood cultures, and PCT. He was noted to have elevated WBC count to 21, with lactate 2.4 with down trend to 1.4 following 2 liters of crystalloid infusion. His PCT was elevated. He was also hypoglycemic on arrival with treatment of IV dextrose, repeat is pending. With his history of adrenal insufficiency will continue stress dose hydrocortisone 50mg IV q6 hours with wean back to his baseline BID dose when appropriate. He will be treated broadly for sepsis with presumed source at this time pulmonary. Hid CT scan is without any acute process. COVID test on admission is: NEGATIVE I ( Juan Ramon Gustafson MD ) got a call for consult feeding tube, I reviewed pt's H/P, labs, EGD finding with pt, pt was admitted to hospital for lung infection with sepsis on 02/10/2022, now pt denies fever, no chest pain, pt had FL video swallow (02/23/2022)- aspiration. Allergies Allergy/AdvReac Type Severity Reaction Status Date / Time ciprofloxacin Allergy Mild RASH Verified 02/02/22 11:29 vancomycin Allergy Mild RASH Verified 02/02/22 11:29 sulfamethoxazole Allergy Unknown Unknown Verified 02/02/22 11:29 [From Bactrim] trimethoprim [From Bactrim] Allergy Unknown Unknown Verified 02/02/22 11:29 Home Medications Medication Instructions Recorded Confirmed Type miscellaneous medical supply #1 ea 08/07/21 01/11/22 Rx albuterol sulfate 90 mcg/actuation 2 puff inhalation QID PRN 08/13/21 02/02/22 Rx aerosol inhaler (Ventolin HFA) shortness of breath or wheezing #18 grams melatonin 5 mg tablet 5 mg PO HS 08/13/21 02/02/22 History clopidogrel 75 mg tablet 75 mg PO QAM 30 days #90 tabs 09/04/2102/02 Rx aspirin 81 mg chewable tablet 81 mg PO QAM 10/01/21 02/02/22 H istory dutasteride 0.5 mg capsule 0.5 mg PO QAM 10/01/21 02/02/22 Hist ory (Avodart) fluticasone fur. 100 mcg-umeclid 1 inh inhalation QAM 10/01/21 History 62.5 mcg-vilant 25 mcg inhalat.powder (Trelegy Ellipta) folic acid 1 mg tablet 1,000 mcg PO QAM 10/01/21 02/02/22 History tamsulosin 0.4 mg capsule 0.4 mg PO QAM 10/01/21 02/02/22 Histo ry gabapentin 300 mg capsule 300 mg PO TID 10/22/21 02/02/22 Histo ry hydrocortisone 10 mg tablet See Rx Instructions .Route 11/04/21 02/02/22 Rx (Cortef) .COMPLEX #45 tabs F polyethylene glycol 3350 17 gram 17 g PO TID #21 ea 11/04/21 2 Rx oral powder packet (Miralax) quetiapine 25 mg tablet 25 mg PO HS #0 tabs 11/04/21 02/02/22 Rx sennosides 8.6 mg tablet (Senokot) 8.6 mg PO QAM #7 tabs 11/04/21 Rx lansoprazole 30 mg capsule,delayed 30 mg PO QAM 01/11/2202/02 History release amoxicillin 875 mg-potassium 1 tab PO BID #7 tabs 01/14/22 02/02/22 R x clavulanate 125 mg tablet midodrine 5 mg tablet 5 mg PO TID #90 tabs 01/14/22 02/02/22 Rx tobramycin 0.3 %-dexamethasone 0.1 1 drp ophthalmic (eye) QID #2.5 mL 01/21/22 02/02/22 Rx % eye drops,suspension (TobraDex) atorvastatin 40 mg tablet 40 mg PO QAM 90 days #90 tabs 01/29/2201/06 Rx bupropion HCl 100 mg tablet 100 mg PO QAM #90 tabs 02/09/22 Rx Past Med/Surg History Medical History Ataxic gait Bacteremia due to methicillin resistant Staphylococcus aureus hx? patient unsure of detailsBenign prostate hyperplasia Bilateral carotid artery occlusion Bipolar disorder Chlamydial proctitis hx 2018?Confusion poor historianCOPD (chronic obstructive pulmonary disease) with chronic bronchitis Esophageal stenosis GERD (gastroesophageal reflux disease) Hepatic steatosis Hiatal hernia History of [facility]19 [facility] History of lung cancer (01/2016) 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Hospitalization within last 30 days treated [facility] -- patient unsure of why he was here?HTN (hypertension) Hypertension Medical marijuana use On anticoagulant therapy plavix dailyOn home oxygen therapy 3L n/c prn for SOBOsteomyelitis Peripheral arterial disease Peripheral neuropathy Pneumonia possible recent pneumonia? patient unsure.Poor historian Recurrent left pleural effusion s/p thoracentesis August 2018Restless leg syndrome Schizoaffective disorder Surgical History H/O foot surgery LEFT HEEL REMOVAL FROM PRESSURE ULCERHistory of bronchoscopy (01/2016) History of colonoscopy History of esophagogastroduodenoscopy (EGD) with dilation (last12/2021, 11/23/21, 10/2021)History of herniorrhaphy History of lobectomy of lung LOWER LEFT LUNGS/P peripheral artery angioplasty with stent placement (06/2016) [employer], 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S/P thoracentesis (05/2019) L pleural effusionStatus post femorofemoral bypass surgery (06/2016) [place] teeth removed Family History Brother Myocardial infarctionFather Myocardial infarctionOther Cancer Family history non-contributory Lung disease No family history of adverse response to anesthesia Denies family history of Tuberculosis Ovarian cancer Prostate cancer Diabetes Heart disease Allergies Breast cancer Emphysema, unspecified Lung cancer Colorectal cancer Asthma Social History Smoking Status: Former smoker Tobacco Type: Cigarettes Age Started Using Tobacco: 10; packs per day: 0.5; Years Smoked: 30; Cigarettes Per Day: 6-8 DAILY; Second Hand Exposure: No; Do You Dip or Chew Tobacco: No; Tobacco Cessation Education Requested by Patient: No Hx Alcohol Use: Yes Alcohol type: beer Alcohol Intake Frequency: 4 or More x per/Week Alcohol Intake Frequency Comment: mostly daily Hx Substance Use: No (medical THC (uses as directed)) Preferred Language: Nicaraguan Communication Ability: Effective Visual Impairment: No Limitations Hearing Ability: Normal Cvicu Rn Required: No Beliefs That Will Affect Care: None marital status: Current Living Situation: Alone Current Living Situation Comment: Pt does have caregivers current occupational status: disabled How many Children do You have: 2 Other Information That Helps Us Care for You: No Feels Safe at Home: Yes Safety Concerns: Feels Safe At This Time Childhood Exposure to Second-Hand Smoke: Yes Diet Comment: regular caffeine: Yes (coffee 1 pot a day) during the past year weight has: remained stable Dental Care, Regularly: No Physical Activity Frequency: Does not Exercise Seatbelt Use: always Sunscreen Use: No Assistive Devices: Denture - Upper, Denture - Lower, Glasses and Wheelchair Review of Systems Review of Systems: REVIEW OF SYSTEMS: Constitutional: (+) fever, sweats or chills Eyes: No diplopia, no worsening or blurred vision ENT: (+) left ear remains with some erythema and tenderness, no trouble swallowing Respiratory: (+) cough, sputum, dyspnea at rest or on exertion Cardiovascular: No chest pain, tightness or palpitations Abdomen: No pain, nausea, vomiting, diarrhea or constipation Musculoskeletal: No joint pain, calf pain, swelling Neurologic: No weakness, numbness/tingling, or balance problems Psychiatric: No anxiety or depression Skin: (+) scratch to right leg superficial, rubor to bilateral feet Allergies Allergy/AdvReac Type Severity Reaction Status Date / Time piperacillin [From Zosyn] Allergy Severe Rash Verified 02/17/22 12:08 tazobactam [From Zosyn] Allergy Severe Rash Verified 02/17/22 12:08 vancomycin Allergy Severe Rash Verified 02/17/22 07:39 ciprofloxacin Allergy Mild RASH Verified 02/02/22 11:29 sulfamethoxazole Allergy Unknown Unknown Verified 02/02/22 11:29 [From Bactrim] trimethoprim [From Bactrim] Allergy Unknown Unknown Verified 02/02/22 11:29 Home Medications Medication Instructions Recorded Confirmed Type miscellaneous medical supply #1 ea 08/07/21 01/11/22 Rx albuterol sulfate 90 mcg/actuation 2 puff inhalation QID PRN 08/13/21 02/22/22 Rx aerosol inhaler (Ventolin HFA) shortness of breath or wheezing #18 grams melatonin 5 mg tablet 5 mg PO HS 08/13/21 02/02/22 History clopidogrel 75 mg tablet 75 mg PO QAM 30 days #90 tabs 09/04/21 02/22/22 Rx aspirin 81 mg chewable tablet 81 mg PO QAM 10/01/21 02/22/22 History dutasteride 0.5 mg capsule 0.5 mg PO QAM 10/01/21 02/02/22 History (Avodart) fluticasone fur. 100 mcg-umeclid 1 inh inhalation QAM 10/01/21 02/02/22 History 62.5 mcg-vilant 25 mcg inhalat.powder (Trelegy Ellipta) folic acid 1 mg tablet 1,000 mcg PO QAM 10/01/21 02/02/22 History tamsulosin 0.4 mg capsule 0.4 mg PO QAM 10/01/21 02/02/22 History gabapentin 300 mg capsule 300 mg PO TID 10/22/21 02/22/22 History hydrocortisone 10 mg tablet See Rx Instructions .Route 11/04/21 02/02/22 Rx (Cortef) .COMPLEX #45 tabs polyethylene glycol 3350 17 gram 17 g PO TID #21 ea 11/04/21 02/02/22 Rx oral powder packet (Miralax) quetiapine 25 mg tablet 25 mg PO HS #0 tabs 11/04/21 02/22/22 Rx sennosides 8.6 mg tablet (Senokot) 8.6 mg PO QAM #7 tabs 11/04/21 02/02/22 Rx lansoprazole 30 mg capsule,delayed 30 mg PO QAM 01/11/22 02/22/22 History release amoxicillin 875 mg-potassium 1 tab PO BID #7 tabs 01/14/22 02/22/22 Rx clavulanate 125 mg tablet midodrine 5 mg tablet 5 mg PO TID #90 tabs 01/14/22 02/22/22 Rx tobramycin 0.3 %-dexamethasone 0.1 1 drp ophthalmic (eye) QID #2.5 mL 01/21/22 02/02/22 Rx % eye drops,suspension (TobraDex) atorvastatin 40 mg tablet 40 mg PO QAM 90 days #90 tabs 01/29/22 02/22/22 Rx bupropion HCl 100 mg tablet 100 mg PO QAM #90 tabs 02/09/22 02/22/22 Rx Patient History Medical History Ataxic gait Bacteremia due to methicillin resistant Staphylococcus aureus hx? patient unsure of details Benign prostate hyperplasia Bilateral carotid artery occlusion Bipolar disorder Chlamydial proctitis hx 2018? Confusion poor historian COPD (chronic obstructive pulmonary disease) with chronic bronchitis Esophageal stenosis GERD (gastroesophageal reflux disease) Hepatic steatosis Hiatal hernia History of COVID-19 07/2020 ([facility]ARRHEA AND FEVER) [facility] History of esophageal dilatation History of lung cancer (01/2016) 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 History of stroke Hospitalization within last 30 days treated at [facility] for several days -- patient unsure of why he was here? HTN (hypertension) Hypertension Medical marijuana use On anticoagulant therapy plavix daily On home oxygen therapy 3L n/c prn for SOB Osteomyelitis Peripheral arterial disease Peripheral neuropathy Pneumonia possible recent pneumonia? patient unsure. Poor historian Recurrent left pleural effusion s/p thoracentesis August 2018 Restless leg syndrome Schizoaffective disorder Surgical History H/O foot surgery LEFT HEEL REMOVAL FROM PRESSURE ULCER History of bronchoscopy (01/2016) History of colonoscopy History of esophagogastroduodenoscopy (EGD) with dilation (last12/2021, 11/23/21, 10/2021) History of herniorrhaphy History of lobectomy of lung LOWER LEFT LUNG S/P peripheral artery angioplasty with stent placement (06/2016) [employer], 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 S/P thoracentesis (05/2019) L pleural effusion Status post femorofemoral bypass surgery (06/2016) [place] teeth removed Family History Brother Myocardial infarction Father Myocardial infarction Other Cancer Family history non-contributory Lung disease No family history of adverse response to anesthesia Denies family history of Tuberculosis Ovarian cancer Prostate cancer Diabetes Heart disease Allergies Breast cancer Emphysema, unspecified Lung cancer Colorectal cancer Asthma Social History Smoking Status: Former smoker Tobacco Type: Cigarettes Age Started Using Tobacco: 10; packs per day: 0.5; Years Smoked: 30; Cigarettes Per Day: 6-8 DAILY; Second Hand Exposure: No; Hx Alcohol Use: Yes Alcohol type: beer Alcohol Intake Frequency: 4 or More x per/Week Alcohol Intake Frequency Comment: mostly daily Hx Substance Use: No (medical THC (uses as directed)) Preferred Language: Nicaraguan Communication Ability: Effective Visual Impairment: No Limitations Hearing Ability: Normal Cvicu Rn Required: No Beliefs That Will Affect Care: None marital status: Current Living Situation: Alone Current Living Situation Comment: Pt does have caregivers current occupational status: disabled How many Children do You have: 2 Feels Safe at Home: Yes Childhood Exposure to Second-Hand Smoke: Yes Diet Comment: regular caffeine: Yes (coffee 1 pot a day) during the past year weight has: remained stable Dental Care, Regularly: No Physical Activity Frequency: Does not Exercise Seatbelt Use: always Sunscreen Use: No Assistive Devices: Wheelchair Physical Exam Constitutional: WD/WN, vitals as above Eyes: PERRL, conjunctivae normal, anicteric sclerae Neck: trachea midline, no thyromegaly Respiratory: decrease left lung sound, right lung sound clear Cardiovascular: RRR, no murmur, no edema Gastrointestinal (Abdomen): normal bowel sounds, soft, nontender, no hepatosplenomegaly Neurologic: patellar DTR's 2+ bilat, sensation intact Psychiatric: A+Ox3, euthymic affect Results & Data ([facility]) Vital Signs (Past 12 Hours) Vital Signs Temp Pulse Pulse Resp BP Pulse Ox O2 Del Method 02/26/22 08:00 77 02/26/22 07:43 Room Air 02/26/22 07:17 85 18 95 Room Air 02/26/22 06:47 36.6 C 80 18 149/84 H 100 Room Air 02/26/22 02:38 36.6 C 81 16 128/83 100 Room Air 02/26/22 00:00 90 Laboratory Results Abnormal lab results 02/25/22 02/25/22 02/25/22 Range/Units 11:32 11:34 12:18 Chloride (98-107) mmol/L BUN (6-23) mg/dl BUN/Creatinine Ratio (10-20) Glucose 112 H (70-99(Fasting)) mg/dl POC Glucose 44 L* 19 L* (70-99) mg/dl Magnesium (1.7-2.4) mg/dl 02/25/22 02/25/22 02/26/22 Range/Units 17:47 23:02 05:40 Chloride (98-107) mmol/L BUN (6-23) mg/dl BUN/Creatinine Ratio (10-20) Glucose (70-99(Fasting)) mg/dl POC Glucose 113 H 104 H 111 H (70-99) mg/dl Magnesium (1.7-2.4) mg/dl 02/26/22 Range/Units 05:58 Chloride 111 H (98-107) mmol/L BUN 28 H (6-23) mg/dl BUN/Creatinine Ratio 32.9 H (10-20) Glucose 103 H (70-99(Fasting)) mg/dl POC Glucose (70-99) mg/dl Magnesium 2.6 H (1.7-2.4) mg/dl Diagnostic Findings FL video swallow CLINICAL HISTORY: 67 years-old Male with assess for aspiration. Dysphasia with possible aspiration TECHNIQUE: Video fluoroscopic evaluation of swallowing was performed in the AP and lateral projections by the speech pathology staff. The patient is fed thin liquid, mildly thick, moderately thick and pudding consistencies. FLUOROSCOPY TIME: 4.0 minutes. COMPARISON STUDY: 02/12/2022 FINDINGS: Silent aspiration with all consistencies. Gaseous distention of the airway is redemonstrated. Residual noted within the vallecula. There is decreased hyoid excursion and epiglottic deflection. Upper esophageal dysmotility with decreased transit. Multilevel spondylitic spurring of the cervical spine. The patient is edentulous. IMPRESSION: 1. Multiple consistency aspiration as above. 2. Please see the speech pathologist report for detailed findings and recommendations. ACT 112: Negative or not required by law.
[2022-02-26] MEDS ORDERED: D5W IV SCH (16:00)
[2022-02-26] MEDS ORDERED: CLINOLIPID 20% IV FAT EMULSION 250 ML IV SCH (16:00)
[2022-02-26] MEDS ORDERED: PERIPHERAL TPN IV SCH (16:00)
[2022-02-26] MEDS ORDERED: AMINO ACIDS 4.25% IV SCH (16:00)
--- NOTE | 2022-02-26 18:50 | Hospitalist Progress Note ---
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 DR Blake will review the case next week for peg placement (2) Acute respiratory failure with hypoxia and hypercapnia: Plan: 02/16/22 - 2nd to aspiration event/aspiration pneumonia. Required BIPAP - then NC O2 - then all supplemental O2 weaned off fully. Completed IV abx for pneumonia. NPO due to dysphagia. (3) Cardiac arrest: Plan: exact etiology of 02/22/22 event is uncertain. no further events or arrythmia noted, per staff who found him unresponsive he was cyanotic and pulseless which led to initiation of CPR. no seizure activity seen. initial BSG was 80. no dysrhythmia seen during pulse checks during the code. CPR lasted 1-2 minutes most and patient woke up and started following commands. of note - patient HAD NOT started his video swallow test when this event occurred. He was simply sitting in a wheelchair. He said he was dizzy and hungry complete video swallow next day without issue Seizure leading to syncope and altered level of consciousness? no specific etiology identified (4) COPD (chronic obstructive pulmonary disease) with chronic bronchitis: Plan: With exacerbation resolving had been improving with tapering steroids. Cont nebs. hydrocortisone for concern for adrenal supression (5) Hypernatremia: Plan: improved may have component of central DI appreciate nephrology assistance defer vasopressin Rx, if needed, to nephrology did receive 1 dose of 4mcg IV x 1 on 02/15/22 (6) Shock: Plan: 02/16/22 -- RESOLVED. Was combination of adrenal shock + septic shock. May have had an element of anaphylaxis given his stridor, rash, and eosinophilia the day of his decompensation (02/16). Likely IV vanco allergy. (7) Drug reaction: Plan: Was on both zosyn + vanco IV when this reaction occurred on 02/15 and 02/16. Question of previous vanco allergy per prior records. Both zosyn and vanco stopped. Suspect vanco was culprit. Rash resolved with steroids. Cont supportive care. Both zosyn/vanco added to allergy list. (8) Hypophosphatemia: Plan: replaced/resolved (9) Aspiration pneumonia: Plan: Has been clinically improved/resolving. Dysphagia from prior strokes likely the culprit. Dilatation of esophageal stenosis this past Tuesday by Dr Blake did not improve his swallowing. CT soft tissue neck without any laryngeal mass seen. completed levaquin (10) Acute metabolic encephalopathy: Plan: 2nd to hypercarbia, sepsis, shock, etc. Had Resolved, then was confused overnight and also during his cardiac event today. etiology?? no issues on repeat MRI of head (11) Sepsis: Plan: early in the admission -- 2nd to aspiration pneumonia; can't rule out RLE cellulitis having contributed either. Either way sepsis had resolved. Blood cultures from admission negative. Repeat blood cultures from 02/16 negative. Urine culture negative. (12) MP (acute kidney injury): Plan: Creatinine 1.89 at time of admission. Sepsis-associated ATN. resolved (13) Adrenal insufficiency: Plan: Received IV hydrocortisone for stress-dose steroids early in his stay, then we aned back to usual home doses. With shock on 02/16 placed back on high-dose hydrocortisone. 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 no evidence of ACS (16) Recurrent left pleural effusion: Plan: s/p thoracentesis last admission with trapped lung present fluid studies c/w exudative effusion but cytologies were NEGATIVE PULM did not recommend further thoracentesis Cont to follow with serial cxr (17) History of stroke: Plan: uses wheelchair at baseline, does not ambulate has known bilateral ICA occlusion but with collaterals patient and family uncertain of when the stroke occurred in the past 02/2021 CT head reports that the chronic appearing strokes on that CT were new in comparison to CT done in 2018; thus, CVAs occurred between 2018 and 02/2021 recent MRI brain with L frontal and L basal ganglia calderon that are old/chronic; no new stroke seen (18) Cellulitis, leg: Plan: RLE resolved (19) Otitis externa: Plan: previous culture- 01/12/22 Org 1 = Staph aureus MRSA Org 2 = Stenotrophomonas maltophilia Org 3 = Staphylococcus aureus resolved (20) Hypomagnesemia: Plan: repleted/resolved (21) DVT prophylaxis: Plan: heparin 5000 TID (22) Hypertension: Plan: changed to hydralazine due to slower heart rate Plan called sister Tanna Avery by phone 02/26/22 left message pt's son from [place] visited at bedside Sat, 02/20 Admission and Anticipated Discharge Date Admission Date: February 10, 2022 Subjective this pt is awake and alert, patient is frustrated today he is dismissive towards me we tried to discuss a course a feeding tube in the meantime are waiting for PEG placement he shook his head no and shook his finger at me I try to discuss placing a PICC line for formal TPN over the PPN he once again shook his finger and said no warm up mouth the word no to me. Pt is in agreement for peg placement unfortunately gastroenterology feels he cannot have peg placed endoscopically and need to have surgical placement. Spoke to surgery today they feel that the patient should have an endoscopically placed PEG tube. The surgeon, Dr. Gustafson, recommend that I consult [facility] gastroenterology, I did not feel is appropriate as not any gastrology is seeing the patient. I requested that Dr. Gustafson speak with about any gastroenterology which she had not done by the end of the day on Tuesday the . I personally then spoke to Dr. Andres Blake is on-call for [facility] gastroenterology and he said he will revisit the patient on Tuesday and likely consider putting an endoscopically placed PEG tube Review of Systems Review of Systems: Mild distress and fatigue patient seems overtly frustrated today no headache, no visual changes some dysarthric speech issues, cough and failed swallowing test no chest pain, pressure or palpitations no shortness of breath, occasional productive cough no abdominal pain, nausea or vomiting, diarrhea or constipation no dysuria, hematuria or frequency no focal joint pain or swelling no back pain, CVA tenderness or radicular pain no bruising, bleeding or rashes overall very weakend seems to be progression from prevous cva Physical Exam Physical Exam: The patient appeared chroncially ill and debilitated Vital signs as documented. Head exam is normocephalic atraumatic Neck is without JVD, thyromegaly, or carotid bruits. Lungs are diminshed at the bases and rhonchorous Cardiac exam, Rhythm is regular.. No murmurs, rubs or gallops. Abdominal exam reveals normal bowel sounds, soft non tender, no masses Extremities are nonedematous and both pedal pulses are present Neurologic exam is alert and oriented, no focal loss of strength or sensation Skin is without bruises or rashes Psychologically is without concerns for anxiety or depression.. Results & Data Results & Data ([facility]) Vital Signs (Past 12 Hours) Vital Signs Temp Pulse Pulse Pulse Pulse Resp BP 02/26/22 16:00 84 02/26/22 14:59 83 18 02/26/22 14:45 97.5 F L 82 18 141/85 H 02/26/22 11:00 97.3 F L 83 18 124/77 02/26/22 11:23 16 02/26/22 08:00 77 02/26/22 07:43 02/26/22 07:17 85 18 02/26/22 06:47 97.9 F 80 18 149/84 H Pulse Ox O2 Del Method 02/26/22 16:00 02/26/22 14:59 97 Room Air 02/26/22 14:45 97 02/26/22 11:00 97 Room Air 02/26/22 11:23 Room Air 02/26/22 08:00 02/26/22 07:43 Room Air 02/26/22 07:17 95 Room Air 02/26/22 06:47 100 Room Air PG Care Time/CCT Total # of Minutes Spent Total Time Spent with Patient: Total time spent is greater than 50% in coordination of care (as documented) at patient's floor/unit and/or counseling patient: Coding Level of Care Code 61526 Subseq Hosp Care Lvl 3 Diagnoses Hoarseness of voice R49.0 Acute respiratory failure with hypoxia and hypercapnia J96.01; J96.02 Cardiac arrest I46.9 COPD (chronic obstructive pulmonary disease) with chronic bronchitis J44.9 Hypernatremia E87.0 Shock R57.9 Drug reaction T50.905A Hypophosphatemia E83.39 Aspiration pneumonia J69.0 Acute metabolic encephalopathy G93.41 Sepsis A41.9 MP (acute kidney injury) N17.9 Adrenal insufficiency E27.40 Benign prostate hyperplasia N40.0 Elevated troponin R77.8 Recurrent left pleural effusion J90 History of stroke Z86.73 Cellulitis, leg L03.119 Otitis externa H60.90 Hypomagnesemia E83.42 DVT prophylaxis Z29.9 Hypertension I10
[2022-02-26] MEDS ORDERED: THIAMINE HCL 200 MG in SODIUM CHLORIDE 0.9% 50 ML IV STA (18:57)
[2022-02-26] MEDS ORDERED: STOP CLINOLIPID SCH (22:00)
[2022-02-26] MEDS: HYDROCORTISONE SOD 25 MG in SYRINGE 0 ML IV SCH (22:10)
[2022-02-27] MEDS: HEPARIN SOD 5,000 UNIT/0.5 ML VIAL SQ SCH ×3 (05:42→20:49)
[2022-02-27] MEDS: ALBUTEROL 0.083% NEBU SOLN 3 ML VIAL NEB SCH ×4 (07:26→19:43)
[2022-02-27 08:32] LABS: Hematocrit (blood only) 37.1 % (40.1-51.0); Hemoglobin 12.2 g/dl (14.0-18.0); Mean Corpuscular Hemoglobin 27.7 pg (25.0-34.0); Mean Corpuscular Hgb Conc 32.9 g/dL (32.0-36.0); Mean Corpuscular Volume 84.3 fL (80.0-100.0); RDW Coefficient of Variation 21.1 % (11.5-14.5); RDW Standard Deviation 63.4 fL (36.4-46.3); White Blood Count 17.25 K/ul (4.8-10.8)
[2022-02-27 08:36] LABS: Mean Platelet Volume 11.3 fL (9.4-12.4); Platelet Count 198 K/uL (130-400)
[2022-02-27] MEDS: FLUTICASONE FUROATE 100MCG 14 PUFFS/INHALER INH SCH (08:38)
[2022-02-27] MEDS: PANTOprazole 40 MG in SYRINGE 0 ML IV SCH (08:39)
[2022-02-27] MEDS: HYDROCORTISONE SOD 25 MG in SYRINGE 0 ML IV SCH ×2 (08:39→20:49)
[2022-02-27] MEDS: THIAMINE HCL 100 MG in SYRINGE 9 ML IV SCH (08:39)
[2022-02-27] MEDS: UMECLIDINIUM/VILANTEROL 62.5/25MCG 7 PUFFS/INHALER INH SCH (08:40)
[2022-02-27 09:04] LABS: Albumin Level 3.8 gm/dl (3.4-5.0); BUN Creatinine Ratio 41.9 (10-20); Bilirubin Direct 0.1 mg/dl (0-0.2); Bilirubin,Total 0.7 mg/dl (0.2-1.0); Calcium 9.1 mg/dl (8.5-10.1); Creatinine Clr Calc Pharmacy 95.5 ml/min; Est GFR (African American) 109.8 ml/min; Est GFR (Non-African American) 94.8 ml/min; Magnesium 2.4 mg/dl (1.7-2.4); Potassium 4.3 mmol/L (3.5-5.1); Total Protein 6.7 gm/dl (6.0-8.3)
--- NOTE | 2022-02-27 12:31 | XRay Report ---
XR chest 1V portable HISTORY: 67 years-old Male aspiration pneumonia acute shortness of breath COMPARISON: Chest radiograph 02/22/2022 TECHNIQUE: Portable AP view of the chest FINDINGS: Cardiac silhouette is enlarged. Atherosclerosis of the aorta. Pulmonary vascular congestion with inte rstitial coarsening. Right perihilar opacities. No pneumothorax. Left greater than right pleural effu sions with left midlung and left basilar consolidation. The opacities appear stable to mildly worsene d from the prior exam. Degenerative changes of the spine. IMPRESSION: 1. Left pleural effusion with persistent left basilar consolidation, stable to mildly worsened from . 2. Cardiomegaly with pulmonary vascular congestion and right perihilar opacities. ACT 112: Negative or not required by law. The above report was generated using voice recognition software. It may contain grammatical, syntax o r spelling errors. Electronically signed by: Александр Moore M.D. 02/27/2022 12:29 PM
[2022-02-27] MEDS: DEXTROSE 50% 50 ML SYRINGE IV PRN ×2 (15:08→23:53)
--- NOTE | 2022-02-27 15:13 | Hospitalist Progress Note ---
Date of Service February 27, 2022 Assessment & Plan (1) Hoarseness of voice: Plan: failed video swallow 02/23/22, recommended permanent alternate feeding route. Currently on PPN. Anticipate PEG tube placement next week (2) Acute respiratory failure with hypoxia and hypercapnia: Plan: Repeat chest x-ray pending. Antibiotics have been discontinued. Supportive care. NPO due to dysphagia. (3) Cardiac arrest: Plan: exact etiology of 02/22/22 event is uncertain. No further events or arrythmia noted. CPR lasted 1-2 minutes most and patient woke up and started following commands. Continue telemetry (4) COPD (chronic obstructive pulmonary disease) with chronic bronchitis: Plan: With exacerbation. Improved with current medical management (5) Hypernatremia: Plan: improved. Appreciate nephrology consultation. Serial lab studies. (6) Shock: Plan: 02/16/22 -- RESOLVED. Appeared to be a combination of adrenal shock + septic shock. (7) Drug reaction: Plan: Was on both zosyn + vanco IV when this reaction occurred on 02/15 and 02/16. Ques tion of previous vanco allergy per prior records. Both zosyn and vanco stopped. Rash resolved with steroids. (8) Hypophosphatemia: Plan: replaced/resolved (9) Aspiration pneumonia: Plan: Has been clinically improved/resolving. Repeat portable chest x-ray today, February 27. Completed levaquin (10) Acute metabolic encephalopathy: Plan: 2nd to hypercarbia, sepsis, shock, etc. Now resolved (11) Sepsis: Plan: early in the admission -- 2nd to aspiration pneumonia. Resolved. (12) MP (acute kidney injury): Plan: Creatinine 1.89 at time of admission. Monitor urine output. Serial labs. resolved (13) Adrenal insufficiency: Plan: Received IV hydrocortisone for stress-dose steroids early in his stay, then weaned back to usual home doses. With shock on 02/16 placed back on high-dose hydrocortisone. 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 no evidence of ACS (16) Recurrent left pleural effusion: Plan: s/p thoracentesis last admission with trapped lung present fluid studies c/w exudative effusion but cytologies were NEGATIVE PULM did not recommend further thoracentesis Cont to follow with serial cxr (17) History of stroke: Plan: uses wheelchair at baseline, does not ambulate has known bilateral ICA occlusion but with collaterals patient and family uncertain of when the stroke occurred in the past 02/2021 CT head reports that the chronic appearing strokes on that CT were new in comparison to CT done in 2018; thus, CVAs occurred between 2018 and 02/2021 recent MRI brain with L frontal and L basal ganglia calderon that are old/chronic; no new stroke seen (18) Cellulitis, leg: Plan: RLE resolved (19) Otitis externa: Plan: previous culture- 01/12/22 Org 1 = Staph aureus MRSA Org 2 = Stenotrophomonas maltophilia Org 3 = Staphylococcus aureus resolved (20) Hypomagnesemia: Plan: repleted/resolved (21) DVT prophylaxis: Plan: heparin 5000 TID (22) Hypertension: Plan: changed to hydralazine due to slower heart rate Plan called sister Tanna Avery by phone 02/26/22 left message pt's son from [place] visited at bedside Sat, 02/20 Admission and Anticipated Discharge Date Admission Date: February 10, 2022 Subjective Awake and alert. He appears chronically ill. Will repeat portable chest x-ray to reassess aspiration pneumonia infiltrates. He is on room air. Nursing staff states he is hyperglycemic despite receiving intravenous corticosteroids and being on peripheral IV nutrition. Review of Systems Review of Systems: Constitutional-no fever or chills ENT-no blurred vision, no double vision, no epistaxis, no sore throat Respiratory-chronically short of breath Cardiac-no palpitations, no chest pain, no syncope GI-no nausea, vomiting, diarrhea, melena, hematochezia -no urinary retention, no urinary incontinence, no dysuria, no hematuria Musculoskeletal-no joint pain, no muscle tenderness. Generalized weakness Skin-no bruising, no rashes, no pruritus Neuro-no isolated weakness, no paresthesia, no weakness Psych-no depression, no anxiety Physical Exam Physical Exam: General-alert and oriented x3, no fevers, no chills HEENT-head atraumatic and normocephalic, TMs intact bilaterally, pupils equal and reactive to light, extraocular muscles intact Neck-no lymphadenopathy or thyromegaly, trachea midline Chest-scattered bilateral rhonchi. No wheezing Cardiac-regular rate and rhythm, normal S1 and S2 Abdomen-normal bowel sounds, nontender, no hepatosplenomegaly Extremities-no cyanosis, clubbing, or edema Neuro-cranial nerves II through XII intact, generalized weakness Psych-depressed affect Results & Data Results & Data ([facility]) Vital Signs (Past 12 Hours) Vital Signs Temp Pulse Pulse Pulse Resp BP BP 02/27/22 13:50 85 18 02/27/22 11:50 36.4 C L 77 16 171/99 H 02/27/22 10:39 76 18 02/27/22 10:08 76 02/27/22 07:30 02/27/22 08:33 36.5 C 75 14 165/100 H 02/27/22 07:26 85 18 Pulse Ox O2 Del Method 02/27/22 13:50 95 Room Air 02/27/22 11:50 98 Room Air 02/27/22 10:39 95 Room Air 02/27/22 10:08 02/27/22 07:30 Room Air 02/27/22 08:33 96 Room Air 02/27/22 07:26 97 Room Air Laboratory Results 02/27/22 08:14 02/27/22 12:59 PG Care Time/CCT Total # of Minutes Spent Total Time Spent with Patient: Total time spent is greater than 50% in coordination of care (as documented) at patient's floor/unit and/or counseling patient: Coding Diagnoses Hoarseness of voice R49.0 Acute respiratory failure with hypoxia and hypercapnia J96.01; J96.02 Cardiac arrest I46.9 COPD (chronic obstructive pulmonary disease) with chronic bronchitis J44.9 Hypernatremia E87.0 Shock R57.9 Drug reaction T50.905A Hypophosphatemia E83.39 Aspiration pneumonia J69.0 Acute metabolic encephalopathy G93.41 Sepsis A41.9 MP (acute kidney injury) N17.9 Adrenal insufficiency E27.40 Benign prostate hyperplasia N40.0 Elevated troponin R77.8 Recurrent left pleural effusion J90 History of stroke Z86.73 Cellulitis, leg L03.119 Otitis externa H60.90 Hypomagnesemia E83.42 DVT prophylaxis Z29.9 Hypertension I10
--- NOTE | 2022-02-27 15:39 | Hospitalist Progress Note ---
Date of Service February 27, 2022 Assessment & Plan (1) Hoarseness of voice: Plan: failed video swallow 02/23/22, recommended permanent alternate feeding route. Currently on PPN. Anticipate PEG tube placement next week (2) Acute respiratory failure with hypoxia and hypercapnia: Plan: Repeat chest x-ray pending. Antibiotics have been discontinued. Supportive care. NPO due to dysphagia. (3) Cardiac arrest: Plan: exact etiology of 02/22/22 event is uncertain. No further events or arrythmia noted. CPR lasted 1-2 minutes most and patient woke up and started following commands. Continue telemetry (4) COPD (chronic obstructive pulmonary disease) with chronic bronchitis: Plan: With exacerbation. Improved with current medical management (5) Hypernatremia: Plan: improved. Appreciate nephrology consultation. Serial lab studies. (6) Shock: Plan: 02/16/22 -- RESOLVED. Appeared to be a combination of adrenal shock + septic shock. (7) Drug reaction: Plan: Was on both zosyn + vanco IV when this reaction occurred on 02/15 and 02/16. Ques tion of previous vanco allergy per prior records. Both zosyn and vanco stopped. Rash resolved with steroids. (8) Hypophosphatemia: Plan: replaced/resolved (9) Aspiration pneumonia: Plan: Has been clinically improved/resolving. Repeat portable chest x-ray today, February 27. Completed levaquin (10) Acute metabolic encephalopathy: Plan: 2nd to hypercarbia, sepsis, shock, etc. Now resolved (11) Sepsis: Plan: early in the admission -- 2nd to aspiration pneumonia. Resolved. (12) MP (acute kidney injury): Plan: Creatinine 1.89 at time of admission. Monitor urine output. Serial labs. resolved (13) Adrenal insufficiency: Plan: Received IV hydrocortisone for stress-dose steroids early in his stay, then weaned back to usual home doses. With shock on 02/16 placed back on high-dose hydrocortisone. 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 No evidence of ACS (16) Recurrent left pleural effusion: Plan: s/p thoracentesis last admission with trapped lung present. Fluid studies c/w exudative effusion but cytologies were NEGATIVE. Pulm med did not recommend further thoracentesis. Serial cxr (17) History of stroke: Plan: Medical management. Stable. Medical management (18) Cellulitis, leg: Plan: RLE. Resolved with antibiotic therapy (19) Otitis externa: Plan: previous culture- 01/12/22 Org 1 = Staph aureus MRSA Org 2 = Stenotrophomonas maltophilia Org 3 = Staphylococcus aureus resolved (20) Hypomagnesemia: Plan: repleted/resolved (21) DVT prophylaxis: Plan: heparin 5000 TID (22) Hypertension: Plan: Metoprolol changed to hydralazine due to bradycardia Plan To be determined Admission and Anticipated Discharge Date Admission Date: February 10, 2022 Subjective No new findings. The patient appears chronically ill. Repeat chest x-ray today reveals left lower lobe infiltrate with effusion and some evidence of fluid overload. Will initiate intravenous Lasix daily. He remains on peripheral parenteral nutrition and will require PEG tube placement next week. He remains NPO. Review of Systems Review of Systems: Constitutional-no fever or chills ENT-no blurred vision, no double vision, no epistaxis, no sore throat Respiratory-chronically short of breath Cardiac-no palpitations, no chest pain, no syncope GI-cannot swallow effectively. No melena, hematochezia -no urinary retention, no urinary incontinence, no dysuria, no hematuria Musculoskeletal-no joint pain, no muscle tenderness Skin-no bruising, no rashes, no pruritus Neuro-chronic generalized weakness Psych-appears depressed Physical Exam Physical Exam: General-awake. No distress. Appears chronically ill HEENT-head atraumatic and normocephalic, pupils equal and reactive to light, extraocular muscles intact Neck-no lymphadenopathy or thyromegaly, trachea midline Chest-bilateral rhonchi. No wheezing Cardiac-regular rate and rhythm, normal S1 and S2 Abdomen-normal bowel sounds, nontender, no hepatosplenomegaly Extremities-no cyanosis, clubbing, or edema Neuro-generalized weakness. No focal deficits Psych-appears depressed Results & Data Results & Data ([facility]) Vital Signs (Past 12 Hours) Vital Signs Temp Pulse Pulse Pulse Resp BP BP 02/27/22 13:50 85 18 02/27/22 11:50 36.4 C L 77 16 171/99 H 02/27/22 10:39 76 18 09/24/22 10:08 76 02/27/22 07:30 02/27/22 08:33 36.5 C 75 14 165/100 H 02/27/22 07:26 85 18 Pulse Ox O2 Del Method 02/27/22 13:50 95 Room Air 02/27/22 11:50 98 Room Air 02/27/22 10:39 95 Room Air 02/27/22 10:08 02/27/22 07:30 Room Air 02/27/22 08:33 96 Room Air 02/27/22 07:26 97 Room Air Laboratory Results 02/27/22 08:14 02/27/22 12:59 PG Care Time/CCT Total # of Minutes Spent Total Time Spent with Patient: Total time spent is greater than 50% in coordination of care (as documented) at patient's floor/unit and/or counseling patient: Coding Level of Care Code 64560 Subseq Hosp Care Lvl 3 Diagnoses Hoarseness of voice R49.0 Acute respiratory failure with hypoxia and hypercapnia J96.01; J96.02 Cardiac arrest I46.9 COPD (chronic obstructive pulmonary disease) with chronic bronchitis J44.9 Hypernatremia E87.0 Shock R57.9 Drug reaction T50.905A Hypophosphatemia E83.39 Aspiration pneumonia J69.0 Acute metabolic encephalopathy G93.41 Sepsis A41.9 MP (acute kidney injury) N17.9 Adrenal insufficiency E27.40 Benign prostate hyperplasia N40.0 Elevated troponin R77.8 Recurrent left pleural effusion J90 History of stroke Z86.73 Cellulitis, leg L03.119 Otitis externa H60.90 Hypomagnesemia E83.42 DVT prophylaxis Z29.9 Hypertension I10
[2022-02-27] MEDS ORDERED: D5W IV SCH (16:00)
[2022-02-27] MEDS ORDERED: PERIPHERAL TPN IV SCH (16:00)
[2022-02-27] MEDS ORDERED: AMINO ACIDS 4.25% IV SCH (16:00)
[2022-02-27] MEDS ORDERED: CLINOLIPID 20% IV FAT EMULSION 250 ML IV SCH (16:00)
[2022-02-27] MEDS ORDERED: STOP CLINOLIPID SCH (22:00)
[2022-02-27] MEDS: LACTATED RINGER'S 250 ML IV ONE ×2 (22:09→23:30)
[2022-02-28] MEDS ORDERED: DEXTROSE 50% 50 ML SYRINGE IV STA (00:58)
--- NOTE | 2022-02-28 01:28 | Communication Note ---
Date of Service: February 28, 2022 Informed by patient's RN that his PIVs were no longer returning blood and per protocol, PPN had to be paused. Patient has had history of very difficult access while here. Gave patient small 250cc to intravascularly expand, IV team was able to get a 22G PIV in the R hand that did return blood, but a very small amount. He was also reported to have three more hypoglycemic measurements - though like previous episodes, was asymptomatic per patient's RN. D10 was given. Will defer to patient's primary team on means of access and PPN delivery given upcoming PEG -- e.g., PICC, Core Safe, etc. Plan will be communicated with patient's RN Resident Activity Tracking Resident Involvement: Resident Care Provided Care Provided: Adult Hospital Medicine
[2022-02-28] MEDS: DEXTROSE 10% 1,000 ML IV PRN ×2 (01:38→13:27)
[2022-02-28] MEDS: HEPARIN SOD 5,000 UNIT/0.5 ML VIAL SQ SCH ×3 (06:04→20:55)
[2022-02-28] MEDS: ALBUTEROL 0.083% NEBU SOLN 3 ML VIAL NEB SCH (07:15)
[2022-02-28] MEDS: THIAMINE HCL 100 MG in SYRINGE 9 ML IV SCH (08:48)
[2022-02-28] MEDS: UMECLIDINIUM/VILANTEROL 62.5/25MCG 7 PUFFS/INHALER INH SCH (08:49)
[2022-02-28] MEDS: PANTOprazole 40 MG in SYRINGE 0 ML IV SCH (08:49)
[2022-02-28] MEDS: HYDROCORTISONE SOD 25 MG in SYRINGE 0 ML IV SCH ×2 (08:49→20:56)
[2022-02-28] MEDS: FLUTICASONE FUROATE 100MCG 14 PUFFS/INHALER INH SCH (08:49)
[2022-02-28] MEDS: FUROSEMIDE 40 MG/4 ML VIAL IV SCH (09:05)
[2022-02-28] MEDS ORDERED: ALBUTEROL 0.083% NEBU SOLN 3 ML VIAL NEB PRN (10:58)
--- NOTE | 2022-02-28 14:19 | Hospitalist Progress Note ---
Date of Service February 28, 2022 Assessment & Plan (1) Hoarseness of voice: Plan: Most likely due to reflux and aspiration. Will follow (2) Acute respiratory failure with hypoxia and hypercapnia: Plan: Treat underlying aspiration pneumonia. Oxygen per nasal cannula to maintain saturation greater than 90%. Wean off as tolerated (3) Cardiac arrest: Plan: Occurred February 22 of uncertain etiology. It may have been due to to an anaphylactic reaction to vancomycin which has been discontinued. Telemetry. (4) COPD (chronic obstructive pulmonary disease) with chronic bronchitis: Plan: He has been treated with intravenous antibiotics this admission which have completed their course. Continue nebulizer treatments as needed. Currently stable. (5) Hypernatremia: Plan: Resolved with intravenous fluid hydration (6) Shock: Plan: Resolved (7) Drug reaction: Plan: Suspected reaction to vancomycin causing cardiac arrest. Resolved. (8) Hypophosphatemia: Plan: Treated and repleted (9) Aspiration pneumonia: Plan: He has completed his course of intravenous antibiotics. Chest x-ray continues to reveal left lower lobe infiltrate and effusion which appear to be chronic at this time (10) Acute metabolic encephalopathy: Plan: Multifactorial. Supportive care. (11) Sepsis: Plan: Resolved (12) MP (acute kidney injury): Plan: Resolved with fluid resuscitation. Serial lab studies. Monitor intake and output (13) Adrenal insufficiency: Plan: Chronic. Steroid-dependent (14) Benign prostate hyperplasia: Plan: Currently not an issue. We will follow (15) Elevated troponin: Plan: No evidence of acute myocardial infarction. Will follow (16) Recurrent left pleural effusion: Plan: Appears to be chronic. Serial chest x-ray (17) History of stroke: Plan: Medical management (18) Cellulitis, leg: Plan: He received intravenous antibiotics this admission. Will follow (19) Otitis externa: Plan: Resolved (20) Hypomagnesemia: Plan: Corrected (21) DVT prophylaxis: Plan: Subcutaneous Lovenox (22) Hypertension: Plan: Stable with medical management Plan Eventual discharge to long-term care facility Admission and Anticipated Discharge Date Admission Date: February 10, 2022 Subjective No significant change in clinical status. Peripheral IV access has become a problem and we have lost the ability to administer peripheral nutrition. This will need to be formally addressed on Tuesday. Hopefully the PEG tube can be placed soon. Review of Systems Review of Systems: The patient does not answer questions regarding review of systems Physical Exam Physical Exam: General-awake but appears disoriented. No acute distress HEENT-head atraumatic and normocephalic, pupils equal and reactive to light, extraocular muscles intact Neck-no lymphadenopathy or thyromegaly, trachea midline Chest-bilateral rhonchi noted. No wheezing Cardiac-regular rate and rhythm, normal S1 and S2 Abdomen-normal bowel sounds, no hepatosplenomegaly Extremities-no cyanosis, clubbing, or edema Neuro-cranial nerves II through XII intact, motor and sensory function within normal limits, strength symmetrical , no focal deficits Psych-unable to assess Results & Data Results & Data ([facility]) Vital Signs (Past 12 Hours) Vital Signs Temp Pulse Pulse Pulse Pulse Resp BP 02/28/22 10:50 36.6 C 79 20 107/70 02/28/22 07:30 78 02/28/22 08:01 36.4 C L 84 18 02/28/22 07:15 75 16 02/28/22 03:00 36.5 C 84 18 108/54 L BP Pulse Ox O2 Del Method 02/28/22 10:50 98 Room Air 02/28/22 07:30 02/28/22 08:01 103/68 93 Room Air 02/28/22 07:15 92 Room Air 02/28/22 03:00 90 Room Air Laboratory Results 02/27/22 08:14 02/27/22 12:59 PG Care Time/CCT Total # of Minutes Spent Total Time Spent with Patient: Total time spent is greater than 50% in coordination of care (as documented) at patient's floor/unit and/or counseling patient: Coding Level of Care Code 46818 Subseq Hosp Care Lvl 3 Diagnoses Hoarseness of voice R49.0 Acute respiratory failure with hypoxia and hypercapnia J96.01; J96.02 Cardiac arrest I46.9 COPD (chronic obstructive pulmonary disease) with chronic bronchitis J44.9 Hypernatremia E87.0 Shock R57.9 Drug reaction T50.905A Hypophosphatemia E83.39 Aspiration pneumonia J69.0 Acute metabolic encephalopathy G93.41 Sepsis A41.9 MP (acute kidney injury) N17.9 Adrenal insufficiency E27.40 Benign prostate hyperplasia N40.0 Elevated troponin R77.8 Recurrent left pleural effusion J90 History of stroke Z86.73 Cellulitis, leg L03.119 Otitis externa H60.90 Hypomagnesemia E83.42 DVT prophylaxis Z29.9 Hypertension I10
[2022-03-01] MEDS: DEXTROSE 10% 1,000 ML IV PRN ×2 (01:05→13:37)
[2022-03-01] MEDS ORDERED: LR 15ML/HR IV SCH (06:00)
[2022-03-01 07:23] LABS: Hemoglobin 12.8 g/dl (14.0-18.0); Mean Corpuscular Hemoglobin 27.6 pg (25.0-34.0); Mean Corpuscular Volume 86.2 fL (80.0-100.0); RDW Coefficient of Variation 21.2 % (11.5-14.5); RDW Standard Deviation 65.4 fL (36.4-46.3); Red Blood Count 4.64 M/uL (4.63-6.08); White Blood Count 14.17 K/ul (4.8-10.8)
[2022-03-01 07:36] LABS: Mean Platelet Volume 12.1 fL (9.4-12.4); Platelet Count 151 K/uL (130-400)
[2022-03-01] MEDS: HEPARIN SOD 5,000 UNIT/0.5 ML VIAL SQ SCH ×3 (07:44→21:04)
[2022-03-01 08:00] LABS: Anisocytosis Present; BUN Creatinine Ratio 24.8 (10-20); Basophils # (auto) 0.02 K/uL (0-0.2); Basophils % (auto) 0.1 %; Calcium 9.3 mg/dl (8.5-10.1); Eosinophils # (auto) 0.14 K/uL (0-0.50); Est GFR (African American) 88.2 ml/min; Est GFR (Non-African American) 76.1 ml/min; Immature Granulocytes # (auto) 0.15 K/uL (0.00-0.02); Immature Granulocytes % (auto) 1.1 %; Lymphocytes # (auto) 0.83 K/uL (1.2-3.4); Lymphocytes % (auto) 5.9 %; Magnesium 2.4 mg/dl (1.7-2.4); Monocytes # (auto) 0.63 K/uL (0.24-0.82); Monocytes % (auto) 4.4 %; Neutrophils % (auto) 87.5 %; Polychromasia 1+; Potassium 3.9 mmol/L (3.5-5.1)
[2022-03-01] MEDS: PANTOprazole 40 MG in SYRINGE 0 ML IV SCH (08:29)
[2022-03-01] MEDS: HYDROCORTISONE SOD 25 MG in SYRINGE 0 ML IV SCH ×2 (08:30→21:04)
[2022-03-01] MEDS: THIAMINE HCL 100 MG in SYRINGE 9 ML IV SCH (08:30)
[2022-03-01] MEDS: FLUTICASONE FUROATE 100MCG 14 PUFFS/INHALER INH SCH (08:43)
[2022-03-01] MEDS: UMECLIDINIUM/VILANTEROL 62.5/25MCG 7 PUFFS/INHALER INH SCH (08:43)
--- NOTE | 2022-03-01 09:38 | History & Physical Bridge Note ---
Date of Service March 01, 2022 History & Physical Bridge Note I have examined the patient, reviewed the History & Physical and in the interval since the performance of the History & Physical I have noted the following changes of clinical significance: no changes noted. Patient acknowledges that he wishes to have a PEG tube placed.
[2022-03-01] MEDS: FUROSEMIDE 40 MG/4 ML VIAL IV SCH (09:57)
--- NOTE | 2022-03-01 10:10 | Gastroenterology Progress Note ---
Date of Service March 01, 2022 Assessment & Plan (1) Dysphagia: (2) Silent aspiration: Plan -Keep NPO -Will arrange to attempt PEG placement on 03/02/22 Admission and Anticipated Discharge Date Admission Date: February 10, 2022 Supervising Physician Co-Signing Physician Notes Agree with SANDRA Lo as above Proceed with PEG tube tomorrow Subjective Patient is a 67 yo male with profound oropharyngeal dysphagia and aspiration pneumonia. GI is currently involved due to request for PEG tube placement. Patient acknowledges that he desires a feeding tube. He notes a history of abdominal surgeries (2 hernia repairs). 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 Review of Systems Constitutional: no fever and no chills Respiratory: + cough; no dyspnea Gastrointestinal: no abdominal pain and no heartburn Physical Exam Constitutional: well developed Respiratory: normal respiratory effort Gastrointestinal (Abdomen): Inspection/Auscultation: abdomen normal to inspection Results & Data Results & Data ([facility]) Vital Signs (Past 12 Hours) Vital Signs Temp Pulse Pulse Pulse Resp BP Pulse Ox 03/01/22 08:00 36.1 C L 65 16 115/71 98 03/01/22 04:22 36.6 C 72 18 96/68 L 94 02/28/22 23:40 02/28/22 23:20 36.6 C 72 20 110/68 94 02/28/22 22:57 64 O2 Del Method 03/01/22 08:00 Room Air 03/01/22 04:22 Room Air 02/28/22 23:40 Room Air 02/28/22 23:20 Room Air 02/28/22 22:57 PG Care Time/CCT Total # of Minutes Spent Total Time Spent with Patient: Total time spent is greater than 50% in coordination of care (as documented) at patient's floor/unit and/or counseling patient: Coding Level of Care Code 69355 Subseq Hosp Care Lvl 3 Diagnoses Dysphagia R13.10 Silent aspiration T17.900A
--- NOTE | 2022-03-01 11:49 | Pharmacy Report ---
PHA: Parenteral Nutrition Con - Date of Service March 01, 2022 - Scope Pharmacy was consulted on 02/24/22 to manage parenteral nutrition orders for this patient. - Subjective The patient is currently on day #5 of peripheral parenteral nutrition for prolonged NPO status / aspiration risk. - Objective Height: 5 ft 9 in Weight: 73 kg Diet: NPO Vascular Access:: * Peripheral IV - asked IV team to assess new IV for PN use on 03/01/22 - they approved this site Intake & Output (24hrs):: Intake & Output 02/27/22 02/28/22 03/01/22 03/02/22 06:59 06:59 06:59 06:59 Intake Total 302 / 302 4967.643 / 4967.643 2023.487 / 202.487 Output Total 450 / 450 800 / 800 Balance 302 / 302 4517.643 / 4517.643 1223.487 / 1223.487 Weight 74.2 kg 71.8 kg 73 kg Laboratory Data (Last 24 Hr):: 03/01/22 03/01/22 06:34 09:34 Sodium 147 H Potassium 3.9 Chloride 109 H Carbon Dioxide 32 BUN 25 H Creatinine 1.01 Glucose 102 H Calcium 9.3 Phosphorus 3.0 Magnesium 2.4 2.4 Nutrition Assessment:: Please refer to the Notes section of the EMR for the most recent hand washer note. - Assessment * PPN was held on 02/28/22 secondary to IV site issues. IV team replaced site last evening. This morning, I requested they re-assess this site for PN use. Spoke with Vanna, who approved this site. * Will give PPN today (03/01/22). Plan for PEG placement tomorrow. - Plan For day #5 of PPN administration, the following will be ordered: Macronutrients Amino acids 85 grams/day Dextrose 100 grams/day Lipids 50 grams/day Micronutrients Potassium phosphate 24 mMol Multivitamins 10 mL Trace Elements 1 mL Thiamine 100 mg Total volume 2020 mL to be infused over 24 hrs will provide 1180 kcal/day Final osmolarity 697 mOsm/L (maximum for PPN is 900 mOsm/L) Labs, as indicated, will be ordered per protocol Pharmacy will continue to follow and adjust parenteral nutrition orders on a daily basis. Thank you for allowing us to participate in the care of this patient.
[2022-03-01] MEDS ORDERED: SODIUM CHLORIDE 0.9% 1000ML 500 ML IV ONE ×2 (15:46→19:23)
[2022-03-01] MEDS ORDERED: D5W IV SCH (16:00)
[2022-03-01] MEDS ORDERED: AMINO ACIDS 4.25% IV SCH (16:00)
[2022-03-01] MEDS ORDERED: PERIPHERAL TPN IV SCH (16:00)
[2022-03-01] MEDS ORDERED: CLINOLIPID 20% IV FAT EMULSION 250 ML IV SCH (16:00)
--- NOTE | 2022-03-01 16:09 | Hospitalist Progress Note ---
Date of Service March 01, 2022 Assessment & Plan (1) Hoarseness of voice: Plan: This ia a 67-year-old male with a PMHx significant for Stroke, stage III non- small cell lung cancer status postchemotherapy and radiation, bipolar, dysphagia, hoarse voice, COPD, HTN, Adrenal Insufficiency who presented with Sepsis, was in ICU 02/16 for shock (adrenal+septic possible anaphylactic from IV vanc) placed on BIPAP weaned to room air, downgraded and improved, admitted to the ICU for presumed cardiac arrest with ROSC. has improved, downgraded, currently on the floors Most likely due to reflux and aspiration. some improvement (2) Oropharyngeal dysphagia: Plan: Profound oropharyngeal dysphagia Plan is for PEG tube placement Tentatatively planned for 03/02 by GI (3) Acute respiratory failure with hypoxia and hypercapnia: Plan: Treat underlying aspiration pneumonia. Oxygen per nasal cannula to maintain saturation greater than 90%. Wean off as tolerated (4) Cardiac arrest: Plan: Occurred February 22 of uncertain etiology. It may have been due to to an anaphylactic reaction to vancomycin which has been discontinued. Telemetry. (5) COPD (chronic obstructive pulmonary disease) with chronic bronchitis: Plan: He has been treated with intravenous antibiotics this admission which have completed their course. Continue nebulizer treatments as needed. Currently stable. (6) Hypernatremia: Plan: Resolved with intravenous fluid hydration (7) Shock: Plan: Resolved (8) Drug reaction: Plan: Suspected reaction to vancomycin causing cardiac arrest. Resolved. (9) Hypophosphatemia: Plan: Treated and repleted (10) Aspiration pneumonia: Plan: He has completed his course of intravenous antibiotics. Chest x-ray continues to reveal left lower lobe infiltrate and effusion which appear to be chronic at this time (11) Acute metabolic encephalopathy: Plan: Multifactorial. Supportive care. (12) Sepsis: Plan: Resolved (13) MP (acute kidney injury): Plan: Resolved with fluid resuscitation. Serial lab studies. Monitor intake and output (14) Adrenal insufficiency: Plan: Chronic. Steroid-dependent (15) Benign prostate hyperplasia: Plan: Currently not an issue. We will follow (16) Elevated troponin: Plan: No evidence of acute myocardial infarction. Will follow (17) Recurrent left pleural effusion: Plan: Appears to be chronic. Serial chest x-ray (18) History of stroke: Plan: Medical management (19) Cellulitis, leg: Plan: He received intravenous antibiotics this admission. Will follow (20) Otitis externa: Plan: Resolved (21) Hypomagnesemia: Plan: Corrected (22) DVT prophylaxis: Plan: Subcutaneous Lovenox (23) Hypertension: Plan: Stable with medical management Plan Eventual discharge to long-term care facility Admission and Anticipated Discharge Date Admission Date: February 10, 2022 Subjective Patient seen and examined, mild inteelectual disability, but able to give history Review of Systems Review of Systems: All systems reviewed are negative, apart from the ones contained in the history. Physical Exam Physical Exam: The patient is awake, alert and oriented 3, well developed and well nourished, normocephalic and atraumatic, lying in bed and in no acute distress. HEENT--PERRL, EOMI, mucous membranes and oropharynx mildly dry Neck--supple. No JVD. No bruits. Thyroid normal, trachea midline, no adenopathy. Heart--normal S1 and S2. No murmurs, rubs or gallops. Lungs--clear bilaterally, no respiratory distress, no accessory muscle use. Abdomen--normal bowel sounds and soft. Mild epigastric and left sided abdominal pain Extremities--no cyanosis or clubbing. No edema. Dermatologic--normal skin turgor, normal color, no abnormal lymph nodes, no rash. Neurologic--cranial nerves II through XII grossly intact. Rheumatologic--normal range of motion. Psychiatric--normal affect. Results & Data Results & Data ([facility]) Vital Signs (Past 12 Hours) Vital Signs Temp Pulse Pulse Pulse Resp BP Pulse Ox 03/01/22 15:38 96.4 F L 61 14 85/53 L 98 03/01/22 12:12 95.9 F L 70 14 111/70 94 03/01/22 07:15 03/01/22 07:15 72 03/01/22 08:00 97.0 F L 65 16 115/71 98 03/01/22 04:22 97.9 F 72 18 96/68 L 94 O2 Del Method 03/01/22 15:38 Room Air 03/01/22 12:12 Room Air 03/01/22 07:15 Room Air 03/01/22 07:15 03/01/22 08:00 Room Air 03/01/22 04:22 Room Air PG Care Time/CCT Total # of Minutes Spent Total Time Spent with Patient: Total time spent is greater than 50% in coordination of care (as documented) at patient's floor/unit and/or counseling patient: Coding Level of Care Code 91625 Subseq Hosp Care Lvl 2 Diagnoses Hoarseness of voice R49.0 Oropharyngeal dysphagia R13.12 Acute respiratory failure with hypoxia and hypercapnia J96.01; J96.02 Cardiac arrest I46.9 COPD (chronic obstructive pulmonary disease) with chronic bronchitis J44.9 Hypernatremia E87.0 Shock R57.9 Drug reaction T50.905A Hypophosphatemia E83.39 Aspiration pneumonia J69.0 Acute metabolic encephalopathy G93.41 Sepsis A41.9 MP (acute kidney injury) N17.9 Adrenal insufficiency E27.40 Benign prostate hyperplasia N40.0 Elevated troponin R77.8 Recurrent left pleural effusion J90 History of stroke Z86.73 Cellulitis, leg L03.119 Otitis externa H60.90 Hypomagnesemia E83.42 DVT prophylaxis Z29.9 Hypertension I10 Time Spent (min) 35
[2022-03-01] MEDS ORDERED: SODIUM CHLORIDE 0.9% 500 ML IV ONE (16:30)
[2022-03-01] MEDS ORDERED: ALBUMIN 25% 100 mL 25 GM/100 ML VIAL IV ONE ×2 (20:47→20:49)
--- NOTE | 2022-03-01 21:17 | Communication Note ---
Date of Service: March 01, 2022 Notified by patient's RN that patient's blood pressures continue to be labile and dipping into the 60-80 range since start of shift. He did complain of dizziness the first instance and not feeling well. He was rhoncharus bilaterally with no appreciable JVD; capillary refill was ~3 seconds. He was given a 500cc bolus after being put into the Trendelenburg position and his BP subsequently improved back into the ~100 systolic range. Notified again that this happened again, BP dropping down into low 80s spontaneously - also again reporting he was feeling dizzy. Similar exam before - Abdomen soft/NT/ND. Capillary refill slightly more sluggish around 4-5 seconds. 25g of 25% albumin was ordered and STAT labs were placed for impending shock work-up. Patient did report to me that he was "tired of all this" and just "wanted to ." Engaged in reflective listening and heard patient's concerns RE: tired being in the hospital. In clarifying goals, he did state he WOULD WANT VASOACTIVE MEDICATIONS should his BP continue to drop. However, in discussing code status, he said he would NOT want CPR and would NOT want intubated should he arrest. He understands this is a change from his current status as full code. With his permission, I called his POA and HIPAA contact, Tanna. We reviewed what he said, his current situation, and my concerns about his ongoing and labile blood pressure and overall functional status. She agrees that he would be unable to care for himself or return to a life at his apartment at this point. She agrees with his decision of changing to DNR/DNI CODE STATUS. She acknowledges he stated he would want vasoactive medications should his BP deteriorate. Discussed role of palliative care, who will be consulted. SUMMARY: - Change CODE STATUS to DNR/DNI - Patient wants vasoactive medications to support pressures if they continue to drop despite initial therapies - Give 25g of 25% albumin now, can consider additional 250cc bolus if indicated (he is almost 4L positive today per chart, hence careful monitoring of further fluids) - Check shock labs, special attn to infectious work-up given distributive appearance - Consult palliative care Of note, patient's primary contact on the chart Ale is NOT his , but rather his Sister. Tanna identified as his POA.
[2022-03-01] MEDS ORDERED: ONDANSETRON 4 MG OD TAB SL PRN (21:43)
[2022-03-01] MEDS ORDERED: LORazepam 0.5 MG in SYRINGE 0.25 ML IV PRN (21:43)
[2022-03-01] MEDS ORDERED: GLYCOPYRROLATE 0.2 MG/ML VIAL IV PRN (21:43)
[2022-03-01] MEDS ORDERED: ONDANSETRON INJ 2 MG/ML 2 ML VIAL IV PRN (21:43)
[2022-03-01] MEDS ORDERED: ACETAMINOPHEN 325 MG TAB PO PRN (21:43)
[2022-03-01] MEDS ORDERED: STOP CLINOLIPID SCH (22:00)
[2022-03-02] MEDS: LORazepam 0.5 MG TAB PO PRN ×2 (00:17→17:31)
[2022-03-02] MEDS ORDERED: CLINDAMYCIN PHOS 18 MG/1 ML IV ONE (08:00)
[2022-03-02] MEDS ORDERED: CLINDAMYCIN/D5W 600 MG/50 ML PREMIX BAG IV ONE (08:00)
--- NOTE | 2022-03-02 08:37 | Communication Note ---
Date of Service: March 02, 2022 Discussed patient case with Dr. Carcamo on 03/01/22. Patient has been transitioned to comfort measures only and does not desire further interventions at the present time. We will cancel the PEG tube placement.
[2022-03-02] MEDS ORDERED: ceFAZolin 1000MG 1,000 MG/7.5 ML SYR IV ONE (08:51)
[2022-03-02] MEDS: HYDROCORTISONE SOD 25 MG in SYRINGE 0 ML IV SCH (08:59)
[2022-03-02] MEDS ORDERED: SODIUM CHLORIDE 0.9% 1000ML 1,000 ML IV SCH (09:30)
[2022-03-02] MEDS: FLUTICASONE FUROATE 100MCG 14 PUFFS/INHALER INH SCH (10:10)
[2022-03-02] MEDS: PANTOprazole 40 MG in SYRINGE 0 ML IV SCH (10:10)
[2022-03-02] MEDS: UMECLIDINIUM/VILANTEROL 62.5/25MCG 7 PUFFS/INHALER INH SCH (10:10)
[2022-03-02] MEDS: MoRPHine SULFATE 5 MG/0.25 ML UDP PO PRN ×2 (10:19→22:09)
--- NOTE | 2022-03-02 13:05 | Palliative Care Consultation ---
Date of Consultation March 02, 2022 Assessment & Plan (1) Pain: with lower extremity cellulitis. Continue prn roxanol. (2) Dysphagia: Discussed permissive aspiration. He is taking sips of Coke. (3) Palliative care encounter: When I asked Mr. Luther how he is doing, he replied "I'm dying". He denies fears or worries about dying. He feels that he is ready. He talked about his relationship with God and I asked him if he'd like to speak with the solution lead which he was very interested in. He tells me that his biggest worry is his brother and how he will cope with his . He has decided not to tell him that he is dying. We discussed whether his brother would want an opportunity to speak with him and be able to say goodbye but he feels strongly that it will be better for him not to know. He talked about his relationship with his brother and how close they have been since his parents when they were children. He has had multiple visitors and support. History of Present Illness Reason for Consultation: comfort care Requesting Physician: Dr. Carcamo Attending Physician: Norman Galloway MD History of Present Illness 67 yo gentleman with history of Stage III NSCLC, PVD, bilateral carotid occlusion and COPD, among other comorbidities. He was hospitalized last month with pneumonia prior to current admission for sepsis. He did have a cardiac arrest during this admission with successful resuscitation. He has been noted to have dysphagia with aspiration and developed acute on chronic hypoxic, hypercapnic respiratory failure. He was going to have PEG tube placement today and has been receiving parenteral nutrition. Last night he became hypotensive and had a discussion with Dr. Carcamo about whether he would want pressors. He decided that he wanted to focus on comfort and symptom management rather than disease management. He complains of pain in his foot and abdominal pain. He denies dyspnea, nausea or other discomfort. Allergies Allergy/AdvReac Type Severity Reaction Status Date / Time piperacillin [From Zosyn] Allergy Severe Rash Verified 02/17/22 12:08 tazobactam [From Zosyn] Allergy Severe Rash Verified 02/17/22 12:08 vancomycin Allergy Severe Rash Verified 02/17/22 07:39 ciprofloxacin Allergy Mild RASH Verified 02/02/22 11:29 sulfamethoxazole Allergy Unknown Unknown Verified 02/02/22 11:29 [From Bactrim] trimethoprim [From Bactrim] Allergy Unknown Unknown Verified 02/02/22 11:29 Home Medications Medication Instructions Recorded Confirmed Type miscellaneous medical supply #1 ea 08/07/21 01/11/22 Rx albuterol sulfate 90 mcg/actuation 2 puff inhalation QID PRN 08/13/21 02/22/22 Rx aerosol inhaler (Ventolin HFA) shortness of breath or wheezing #18 grams melatonin 5 mg tablet 5 mg PO HS 08/13/21 02/02/22 History clopidogrel 75 mg tablet 75 mg PO QAM 30 days #90 tabs 09/04/21 02/22/22 Rx aspirin 81 mg chewable tablet 81 mg PO QAM 10/01/21 02/22/22 History dutasteride 0.5 mg capsule 0.5 mg PO QAM 10/01/21 02/02/22 History (Avodart) fluticasone fur. 100 mcg-umeclid 1 inh inhalation QAM 10/01/21 02/02/22 History 62.5 mcg-vilant 25 mcg inhalat.powder (Trelegy Ellipta) folic acid 1 mg tablet 1,000 mcg PO QAM 10/01/21 02/02/22 History tamsulosin 0.4 mg capsule 0.4 mg PO QAM 10/01/21 02/02/22 History gabapentin 300 mg capsule 300 mg PO TID 10/22/21 02/22/22 History hydrocortisone 10 mg tablet See Rx Instructions .Route 11/04/21 02/02/22 Rx (Cortef) .COMPLEX #45 tabs polyethylene glycol 3350 17 gram 17 g PO TID #21 ea 11/04/21 02/02/22 Rx oral powder packet (Miralax) quetiapine 25 mg tablet 25 mg PO HS #0 tabs 11/04/21 02/22/22 Rx sennosides 8.6 mg tablet (Senokot) 8.6 mg PO QAM #7 tabs 11/04/21 02/02/22 Rx lansoprazole 30 mg capsule,delayed 30 mg PO QAM 01/11/22 02/22/22 History release amoxicillin 875 mg-potassium 1 tab PO BID #7 tabs 01/14/22 02/22/22 Rx clavulanate 125 mg tablet midodrine 5 mg tablet 5 mg PO TID #90 tabs 01/14/22 02/22/22 Rx tobramycin 0.3 %-dexamethasone 0.1 1 drp ophthalmic (eye) QID #2.5 mL 01/21/22 02/02/22 Rx % eye drops,suspension (TobraDex) atorvastatin 40 mg tablet 40 mg PO QAM 90 days #90 tabs 01/29/22 02/22/22 Rx bupropion HCl 100 mg tablet 100 mg PO QAM #90 tabs 02/09/22 02/22/22 Rx Patient History Medical History Ataxic gait Bacteremia due to methicillin resistant Staphylococcus aureus hx? patient unsure of details Benign prostate hyperplasia Bilateral carotid artery occlusion Bipolar disorder Chlamydial proctitis hx 2018? Confusion poor historian COPD (chronic obstructive pulmonary disease) with chronic bronchitis Esophageal stenosis GERD (gastroesophageal reflux disease) Hepatic steatosis Hiatal hernia History of COVID-19 07/2020 ([facility]) HOSPITALIZED AT [facility] History of esophageal dilatation History of lung cancer (01/2016) 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 History of stroke Hospitalization within last 30 days treated at [facility] for several days -- patient unsure of why he was here? HTN (hypertension) Hypertension Medical marijuana use On anticoagulant therapy plavix daily On home oxygen therapy 3L n/c prn for SOB Osteomyelitis Peripheral arterial disease Peripheral neuropathy Pneumonia possible recent pneumonia? patient unsure. Poor historian Recurrent left pleural effusion s/p thoracentesis August 2018 Restless leg syndrome Schizoaffective disorder Surgical History H/O foot surgery LEFT HEEL REMOVAL FROM PRESSURE ULCER History of bronchoscopy (01/2016) History of colonoscopy History of esophagogastroduodenoscopy (EGD) with dilation (last12/2021, 11/23/21, 10/2021) History of herniorrhaphy History of lobectomy of lung LOWER LEFT LUNG S/P peripheral artery angioplasty with stent placement (06/2016) LLE GUM MIXER, 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 S/P thoracentesis (05/2019) L pleural effusion Status post femorofemoral bypass surgery (06/2016) Colbert teeth removed Family History Brother Myocardial infarction Father Myocardial infarction Other Cancer Family history non-contributory Lung disease No family history of adverse response to anesthesia Denies family history of Tuberculosis Ovarian cancer Prostate cancer Diabetes Heart disease Allergies Breast cancer Emphysema, unspecified Lung cancer Colorectal cancer Asthma Social History Smoking Status: Former smoker Tobacco Type: Cigarettes Age Started Using Tobacco: 10; packs per day: 0.5; Years Smoked: 30; Cigarettes Per Day: 6-8 DAILY; Second Hand Exposure: No; Hx Alcohol Use: Yes Alcohol type: beer Alcohol Intake Frequency: 4 or More x per/Week Alcohol Intake Frequency Comment: mostly daily Hx Substance Use: No (medical THC (uses as directed)) Preferred Language: [place]ese Communication Ability: Effective Visual Impairment: No Limitations Hearing Ability: Normal Journal Entry Audit Clerk Required: No Beliefs That Will Affect Care: None marital status: Current Living Situation: Alone Current Living Situation Comment: Pt does have caregivers current occupational status: disabled How many Children do You have: 2 Feels Safe at Home: Yes Childhood Exposure to Second-Hand Smoke: Yes Diet Comment: regular caffeine: Yes (coffee 1 pot a day) during the past year weight has: remained stable Dental Care, Regularly: No Physical Activity Frequency: Does not Exercise Seatbelt Use: always Sunscreen Use: No Assistive Devices: Wheelchair Review of Systems Review of Systems: ESAS Pain 1/3 Dyspnea 0/3 Nausea 0/3 Anxiety 0/3 Depression 0/3 Drowsiness 0/3 PPS 30% Physical Exam Constitutional: no acute distress ENMT: Mouth: + dry oral mucous membranes Respiratory: normal respiratory effort; no labored breathing Gastrointestinal (Abdomen): nondistended, nontender Skin: extensive erythema right foot Neurologic: Speech / Cognition: normal cognition Results & Data ([facility]) Vital Signs (Past 12 Hours) Vital Signs O2 Del Method 03/02/22 10:04 Room Air 03/02/22 01:29 Room Air PG Care Time/CCT Total # of Minutes Spent Total Time Spent: 40 Total Time Spent with Patient: Total time spent is greater than 50% in coordination of care (as documented) at patient's floor/unit and/or counseling patient: goals of care, symptom management, patient education and support Coding Level of Care Code 12621 Initial Inpt Care Lvl 1 Diagnoses Pain R52 Dysphagia R13.10 Palliative care encounter Z51.5
--- NOTE | 2022-03-02 14:40 | Hospitalist Progress Note ---
Date of Service March 02, 2022 Assessment & Plan (1) Hoarseness of voice: Plan: This ia a 67-year-old male with a PMHx significant for Stroke, stage III non- small cell lung cancer status postchemotherapy and radiation, bipolar, dysphagia, hoarse voice, COPD, HTN, Adrenal Insufficiency who presented with Sepsis, was in ICU 02/16 for shock (adrenal+septic possible anaphylactic from IV vanc) placed on BIPAP weaned to room air, downgraded and improved, admitted to the ICU for presumed cardiac arrest with ROSC. Has improved, downgraded, moved out of ICU Most likely due to reflux and aspiration. some improvement (2) Oropharyngeal dysphagia: Plan: Profound oropharyngeal dysphagia Plan was for PEG tube placement but now comfort measures only. PEG tube placement has been canceled. (3) Acute respiratory failure with hypoxia and hypercapnia: Plan: Treat underlying aspiration pneumonia. Oxygen per nasal cannula to maintain saturation greater than 90%. Wean off as tolerated (4) Cardiac arrest: Plan: Occurred February 22 of uncertain etiology. It may have been due to to an anaphylactic reaction to vancomycin which has been discontinued. Telemetry. (5) COPD (chronic obstructive pulmonary disease) with chronic bronchitis: Plan: He has been treated with intravenous antibiotics this admission which have completed their course. Continue nebulizer treatments as needed. Currently stable. (6) Hypernatremia: Plan: Resolved with intravenous fluid hydration (7) Shock: Plan: Resolved (8) Drug reaction: Plan: Suspected reaction to vancomycin causing cardiac arrest. Resolved. (9) Hypophosphatemia: Plan: Treated and repleted (10) Aspiration pneumonia: Plan: He has completed his course of intravenous antibiotics. Chest x-ray continues to reveal left lower lobe infiltrate and effusion which appear to be chronic at this time (11) Acute metabolic encephalopathy: Plan: Multifactorial. Supportive care. (12) Sepsis: Plan: Resolved (13) MP (acute kidney injury): Plan: Resolved with fluid resuscitation. Serial lab studies. Monitor intake and output (14) Adrenal insufficiency: Plan: Chronic. Steroid-dependent (15) Benign prostate hyperplasia: Plan: Currently not an issue. We will follow (16) Elevated troponin: Plan: No evidence of acute myocardial infarction. Will follow (17) Recurrent left pleural effusion: Plan: Appears to be chronic. Serial chest x-ray (18) History of stroke: Plan: Medical management (19) Cellulitis, leg: Plan: He received intravenous antibiotics this admission. Will follow (20) Otitis externa: Plan: Resolved (21) Hypomagnesemia: Plan: Corrected (22) DVT prophylaxis: Plan: Subcutaneous Lovenox (23) Hypertension: Plan: Stable with medical management Plan He has now opted for comfort care measures only. We will discuss disposition to either hospice facility or care at home with hospice. Admission and Anticipated Discharge Date Admission Date: February 10, 2022 Subjective The patient is now comfort care status. I will speak to him regarding whether he wants to go home with hospice or go to a hospice care facility. Family stewart portillo is in attendance. No current distress. Review of Systems Review of Systems: Constitutional-no fever or chills ENT-no blurred vision, no double vision, no epistaxis, no sore throat Respiratory-chronic shortness of breath. No sputum production. Cardiac-no palpitations, no chest pain, no syncope GI-no nausea, vomiting, diarrhea, melena, hematochezia -no urinary retention, no urinary incontinence, no dysuria, no hematuria Musculoskeletal-no joint pain, no muscle tenderness. Generalized weakness Skin-no bruising, no rashes, no pruritus Neuro-no focal deficits Psych-appears depressed Physical Exam Physical Exam: The patient is awake, alert and oriented 3, well developed and well nourished, normocephalic and atraumatic, lying in bed and in no acute distress. HEENT--PERRL, EOMI, mucous membranes and oropharynx mildly dry Neck--supple. No JVD. No bruits. Thyroid normal, trachea midline, no adenopath y. Heart--normal S1 and S2. Regular rhythm Lungs--rhonchi bilaterally. Faint bilateral and expiratory wheezes. Abdomen--normal bowel sounds and soft. Nondistended. Extremities--no cyanosis or clubbing. No edema. Dermatologic--pallor noted. No bruising Neurologic--cranial nerves II through XII grossly intact. Generalized weakness. No focal deficits Psychiatric--depressed affect. Results & Data Results & Data ([facility]) Vital Signs (Past 12 Hours) Vital Signs O2 Del Method 03/02/22 10:04 Room Air Laboratory Results 03/01/22 06:34 03/01/22 06:34 PG Care Time/CCT Total # of Minutes Spent Total Time Spent with Patient: Total time spent is greater than 50% in coordination of care (as documented) at patient's floor/unit and/or counseling patient: Coding Level of Care Code 61864 Subseq Hosp Care Lvl 3 Diagnoses Hoarseness of voice R49.0 Oropharyngeal dysphagia R13.12 Acute respiratory failure with hypoxia and hypercapnia J96.01; J96.02 Cardiac arrest I46.9 COPD (chronic obstructive pulmonary disease) with chronic bronchitis J44.9 Hypernatremia E87.0 Shock R57.9 Drug reaction T50.905A Hypophosphatemia E83.39 Aspiration pneumonia J69.0 Acute metabolic encephalopathy G93.41 Sepsis A41.9 MP (acute kidney injury) N17.9 Adrenal insufficiency E27.40 Benign prostate hyperplasia N40.0 Elevated troponin R77.8 Recurrent left pleural effusion J90 History of stroke Z86.73 Cellulitis, leg L03.119 Otitis externa H60.90 Hypomagnesemia E83.42 DVT prophylaxis Z29.9 Hypertension I10
[2022-03-02] MEDS ORDERED: LORazepam 1 MG TAB SL PRN (21:44)
[2022-03-02] MEDS ORDERED: SCOPOLAMINE 1 MG TDSY TD SCH (22:00)
[2022-03-02] MEDS: HYOSCYAMINE SULFATE 0.125 MG TAB SL PRN (22:08)
[2022-03-02] MEDS ORDERED: MoRPHine SULFATE 5 MG/0.25 ML UDP PO STA (22:58)
--- NOTE | 2022-03-02 22:58 | Electrocardiogram Report ---
Test Reason : Blood Pressure : / mmHG Vent. Rate : 066 BPM Atrial Rate : 066 BPM P-R Int : 120 ms QRS Dur : 080 ms QT Int : 360 ms P-R-T Axes : 034 021 054 degrees QTc Int : 377 ms Normal sinus rhythm Nonspecific T wave abnormality Abnormal ECG When compared with ECG of 22-FEB-2022 13:59, QT has shortened Confirmed by Sonido Garcia ([id number]) on 03/02/2022 10:57:41 PM Referred By: REFERRED SELF Confirmed By:Sonido Garcia
[2022-03-03] MEDS: ATROPINE SULFATE 1% OP SOLN 5 ML BTL SL PRN ×3 (01:02→03:31)
[2022-03-03] MEDS ORDERED: MoRPHine SULFATE 5 MG/0.25 ML UDP PO STA (01:22)
--- NOTE | 2022-03-03 02:08 | Communication Note ---
Date of Service: March 03, 2022 Notified by patient's RN at 2130 that he was having respiratory secretions and that he was unable to take pills reliably. He also lost IV access and un derstandably did not want a replacement. Orders were placed for scopolamine patch and hyoscyamine. Went up to assess patient shortly thereafter, who initially awoke to verbal stimuli, but was unable to answer my questions -- this demonstrated significant progression since my exam yesterday evening. At this time, he did demonstrate elevated respiratory rate with a notable amount of secretions. He also appeared more pale compared to prior. Overall, however, he did appear comfortable. Impression at this time is that he had likely entered the active stage of dying. Informed around 2300 that patient was experiencing respiratory distress and an additional 5mg of morphine SL was ordered. About an hour later, I was notified that patient was again experiencing respiratory distress. Came up personally to assess patient. His sister was at the bedside. Objectively, patient appeared pale and was somnolent with a variable respiratory rate ranging from slow and quiet, to fast and shallow. Prominent upper airway secretion sounds were appreciated. Though loud, he did not demonstrate any facial grimacing or clear signs of pain. He remained sleeping throughout this whole process and while I was in the room. His sister and I spent a lot of time talking about Nitin and his life. Engaged in reflective listening and prayer with his sister. We did extensively discuss expectations about the process of active dying, which I do believe he is in based on the current assessment. We discussed the role of some of the medications he is utilizing, like morphine, and the goal to reduce the sensation of air hunger while his body naturally progresses through the dying process. We discussed how they do NOT speed-up the dying process when used in these situations, as careful attention is paid to symptom relief but in the context of a.) his current stage of dying, b.) avoiding iatrogenic respiratory suppression. Atropine orders were placed to aid with suppression. Spoke with pharmacy about frequency of dosing morphine SL given lack of access. He did demonstrate increased tachypnea, grunting, and secretions per RN despite dose approx. 40 minutes later. Supplemental O2 was recommended as a trial to decrease WOB/increase comfort and started. Patient was seen again at bedside. Tachypneic, but resting comfortably without appreciable facial grimacing, grunting. His sister and I discussed his progression through this all, again including expected changes - many of which he is experiencing; she said he looked more comfortable now compared to before but still wasn't great and had features of worsening. We discussed obtaining IV access, but given that patient said that he did not want it before and that he has a history with difficult access (especially while hypotensive), this was deferred for now out of concern for causing further discomfort. Given continued reports of observed distress despite ongoing therapies, frequency increased to morphine 5mg IV q1h, additional 1-time dose at 10mg g iven. Discussed with RN and sister. Reviewed frequency and dosing with attending physician given ongoing concerns of discomfort. Resident Activity Tracking Resident Involvement: Resident Care Provided Care Provided: [facility]
[2022-03-03] MEDS ORDERED: MoRPHine SULFATE 10 MG/0.5 ML UDP PO STA (02:09)
[2022-03-03] MEDS ORDERED: MoRPHine SULFATE 5 MG/0.25 ML UDP PO PRN (02:30)
[2022-03-03] MEDS: HYOSCYAMINE SULFATE 0.125 MG TAB SL PRN (03:32)
--- NOTE | 2022-03-03 04:40 | Death Pronouncement Note ---
Date of Service March 03, 2022 Pronouncement Note Admission Date February 10, 2022 Date and Time of Date of : 03/03/22 Time of : 04:30 Summary I was called to pronounce the of Roberth LutherJR ( [id number]) by his nurse on 03/03/22 Upon entering the room, patient was found to be in a terminal state and his sister was at bedside. They were unresponsive to, and did not withdrawal from, verbal or tactile stimuli. They were unresponsive to corneal, pupillary, and oculocephalic reflexes. On cardiopulmonary exam, they were found to be without detectable carotid pulses, and without spontaneous heart tones or respirations. Time of was pronounced by me on 03/03/22 at 0430. Attending physician was notified was notified. Family at bedside. Signed: Romulo Carcamo MD Additional Data Confirmation of : no pulse, no respirations, no heart sounds and pupils fixed and dilated Pronouncement Performed By: Resident Physician Family: at bedside Attending/PCP notified?: Yes Attending physician: Fadi Krishnan MD Was code activated?: No Autopsy requested?: No soft work wrapper layer and examiner notified?: No Advance directives: No Resident Activity Tracking Resident Involvement: Resident Care Provided Care Provided: [facility]
--- NOTE | 2022-03-03 05:56 | Discharge Summary ---
Date of Service March 03, 2022 Admission HPI Per Admitting Provider 67 YOM with medical history of: NSCLC stage III, PAD/PVD with fem-fem bypass, bilateral carotid occlusions(perfusion is done through is verts), HTN, COPD, BPH, bipolar disorder and chronic recurrent left pleural effusion. Patient lung cancer was IIIA adenocarcinoma and received chemo and radiation, Oxygen use, HTN, Bipolar, Adrenal Insufficiency, BPH, Esophageal Stenosis, Hiatal Hernia, otitis externa. Patient was previously admitted in January for hypoxic respiratory failure with superimposed pneumonia and pleural effusion with trapped lung. Patient was discharged on Augmentin and to home with his care givers. Patient presents today febrile hypotensive, hypoxic and with productive cough of thick yellow green sputum. Patient is encephalopathic and unsure if he is taking his medications at home. He states he thought he was going out to celebrate his birthday and ended up at the hospital. 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 He had routine labs performed to include lactat e and blood cultures, and PCT. He was noted to have elevated WBC count to 21, with lactate 2.4 with down trend to 1.4 following 2 liters of crystalloid infusion. His PCT was elevated. He was also hypoglycemic on arrival with treatment of IV dextrose, repeat is pending. With his history of adrenal insufficiency will continue stress dose hydrocortisone 50mg IV q6 hours with wean back to his baseline BID dose when appropriate. He will be treated broadly for sepsis with presumed source at this time pulmonary. Hid CT scan is without any acute process. COVID test on admission is: NEGATIVE Admission Exam Per Admitting Provider PHYSICAL EXAM: General: awake, alert, confused Head: Normocephalic, atraumatic ENT: PERRL, EOMI, no pharyngeal exudate, mucous membranes dry, left ear with what appears improved otitis externa, tender with palpation, no drainage Neuro: AAO x 3, speech clear and appropriate, strength intact bilaterally 5/5, sensation intact and equal all extremities and dermatomes, no pronator drift Chest: equal rise and fall of the chest, no accessory muscle use, no heaves or thrills, scattered rhonchi with decrease in bases Cardiac: Regular rate and rhythm, telemetry reviewed, skin warm dry, cap refill <3 seconds, peripheral pulses +2 upper, 1+ lower no JVD, no edema GI: NABS x 4 quadrants, soft, nontender to palpation, no rebound, guarding or tenderness : Swartz to gravity Psych: Normal mood and affect Skin: scratch to left foot superficial scabbed over, rubor to bilateral feet, right > left cool Principal Diagnosis [id number] respiratory failure oropharyngeal dysphagia cardiac arrest sepsis shock aspiration pneumonia Discharge Exam Upon entering the room, patient was found to be in a terminal state. They were unresponsive to, and did not withdrawal from, verbal or tactile stimuli. They were unresponsive to corneal, pupillary, and oculocephalic reflexes. On cardiopulmonary exam, they were found to be without detectable carotid pulses, and without spontaneous heart tones or respirations. Discharge Data Allergies Allergy/AdvReac Type Severity Reaction Status Date / Time piperacillin [From Zosyn] Allergy Severe Rash Verified 02/17/22 12:08 tazobactam [From Zosyn] Allergy Severe Rash Verified 02/17/22 12:08 vancomycin Allergy Severe Rash Verified 02/17/22 07:39 ciprofloxacin Allergy Mild RASH Verified 02/02/22 11:29 sulfamethoxazole Allergy Unknown Unknown Verified 02/02/22 11:29 [From Bactrim] trimethoprim [From Bactrim] Allergy Unknown Unknown Verified 02/02/22 11:29 Consultations 02/10/22 12:50 ED Decision to Admit Stat 02/13/22 18:38 Consult Gastroenterology Routine 02/15/22 13:11 Consult Nephrology Routine 02/16/22 09:31 Consult Bed Operator Routine 02/22/22 12:56 Consult Bed Operator Routine 02/25/22 10:56 Consult Gastroenterology Routine 02/26/22 08:14 Consult General Surgery Routine 03/01/22 21:25 Consult Palliative Care Routine Procedures Performed Operation Date: 02/16/22 16:30 <No data on this case meets the specified criteria> Operation Date: 02/19/22 15:00 <No data on this case meets the specified criteria> Operation Date: 02/19/22 17:00 Actual Procedures p EGD Biopsy Izaiah - Andres G. Case, DO Operation Date: 03/02/22 16:15 <No data on this case meets the specified criteria> Ordered Studies 02/10/22 11:22 CT head/brain wo con Stat 02/12/22 11:00 FL video swallow Routine 02/14/22 08:59 MR brain wo/w con Routine 02/21/22 18:40 CT soft tissue neck w con Urgent 02/22/22 13:04 US venous doppler LE BI Routine 02/23/22 13:00 FL video swallow Routine 02/25/22 19:56 MR brain wo/w con Routine Hospital Course (1) Hoarseness of voice: This ia a 67-year-old male with a PMHx significant for Stroke, stage III non- small cell lung cancer status postchemotherapy and radiation, bipolar, dysphagia, hoarse voice, COPD, HTN, Adrenal Insufficiency who presented with Sepsis, was in ICU 02/16 for shock (adrenal+septic possible anaphylactic from IV vanc) placed on BIPAP weaned to room air, downgraded and improved, admitted to the ICU for presumed cardiac arrest with ROSC. Had improved, downgraded, moved out of ICU. He later became hypotensive in his course and no longer wished labs, procedures, and other intensive medical therapies. After prolonged discussions with both himself and family, his code status was changed to DNR/DNI and he was transitioned to comfort measures only. He on 03/03/22 at 0430 AM. His sister was at the bedside. Below is a synopsis of his hospital course, assessment, and plan -- excerpted from primary team: (1) Hoarseness of voice Most likely due to reflux and aspiration. some improvement (2) Oropharyngeal dysphagia: Plan: Profound oropharyngeal dysphagia Plan was for PEG tube placement but now comfort measures only. PEG tube placement has been canceled. (3) Acute respiratory failure with hypoxia and hypercapnia: Plan: Treat underlying aspiration pneumonia. Oxygen per nasal cannula to maintain saturation greater than 90%. Wean off as tolerated (4) Cardiac arrest: Plan: Occurred February 22 of uncertain etiology. It may have been due to to an anaphylactic reaction to vancomycin which has been discontinued. Telemetry. (5) COPD (chronic obstructive pulmonary disease) with chronic bronchitis: Plan: He has been treated with intravenous antibiotics this admission which have completed their course. Continue nebulizer treatments as needed. Currently stable. (6) Hypernatremia: Plan: Resolved with intravenous fluid hydration (7) Shock: Plan: Resolved (8) Drug reaction: Plan: Suspected reaction to vancomycin causing cardiac arrest. Resolved. (9) Hypophosphatemia: Plan: Treated and repleted (10) Aspiration pneumonia: Plan: He has completed his course of intravenous antibiotics. Chest x-ray continues to reveal left lower lobe infiltrate and effusion which appear to be chronic at this time (11) Acute metabolic encephalopathy: Plan: Multifactorial. Supportive care. (12) Sepsis: Plan: Resolved (13) MP (acute kidney injury): Plan: Resolved with fluid resuscitation. Serial lab studies. Monitor intake and output (14) Adrenal insufficiency: Plan: Chronic. Steroid-dependent (15) Benign prostate hyperplasia: Plan: Currently not an issue. We will follow (16) Elevated troponin: Plan: No evidence of acute myocardial infarction. Will follow (17) Recurrent left pleural effusion: Plan: Appears to be chronic. Serial chest x-ray (18) History of stroke: Plan: Medical management (19) Cellulitis, leg: Plan: He received intravenous antibiotics this admission. Will follow (20) Otitis externa: Plan: Resolved (21) Hypomagnesemia: Plan: Corrected (22) DVT prophylaxis: Plan: Subcutaneous Lovenox (23) Hypertension: Plan: Stable with medical management Plan He has now opted for comfort care measures only. We will discuss disposition to either hospice facility or care at home with hospice. (2) Oropharyngeal dysphagia: (3) Acute respiratory failure with hypoxia and hypercapnia: (4) Cardiac arrest: (5) COPD (chronic obstructive pulmonary disease) with chronic bronchitis: (6) Hypernatremia: (7) Shock: (8) Drug reaction: (9) Hypophosphatemia: (10) Aspiration pneumonia: (11) Acute metabolic encephalopathy: (12) Sepsis: (13) MP (acute kidney injury): (14) Adrenal insufficiency: (15) Benign prostate hyperplasia: (16) Elevated troponin: (17) Recurrent left pleural effusion: (18) History of stroke: (19) Cellulitis, leg: (20) Otitis externa: (21) Hypomagnesemia: (22) DVT prophylaxis: (23) Hypertension: Total Time Total Time Spent Total Time Spent (In Minutes): >100 Discharge Plan Discharge Items Patient Disposition: Discharge Diagnosis: acute on chronic respiratory failure terminal state Addtl Attending Provider Instructions: Pronouncement Note Admission Date February 10, 2022 Date and Time of Date of : 03/03/22 Time of : 04:30 Summary I was called to pronounce the of Roberth Luther JR ( 1955) by his nurse on 03/03/22 Upon entering the room, patient was found to be in a terminal state and his sister was at bedside. They were unresponsive to, and did not withdrawal from, verbal or tactile stimuli. They were unresponsive to corneal, pupillary, and oculocephalic reflexes. On cardiopulmonary exam, they were found to be without detectable carotid pulses, and without spontaneous heart tones or respirations. Time of was pronounced by me on 03/03/22 at 0430. Attending physician was notified was notified. Family at bedside. Signed: Romulo Carcamo MD Additional Data Confirmation of : no pulse, no respirations, no heart sounds and pupils fixed and dilated Pronouncement Performed By: Resident Physician Family: at bedside Attending/PCP notified?: Yes Attending physician: Fadi Krishnan MD Was code activated?: No Autopsy requested?: No drivers license examiner notified?: No Advance directives: No Other Date/Time: 03/03/22 04:15 Resident Activity Tracking Resident Involvement: Resident Care Provided Care Provided: Adult Hospital Medicine
[2022-03-03] MEDS ORDERED: CHECK SCOPOLAMINE PATCH PLACEMENT SCH (08:00)
== END 2022-03-03 05:30 | disposition expired | DRG 871 ==
LOC: ED 11:09 → SUATTDRO 13:29 → 4W 13:29 → 1E 02-16 08:30 → 2S 02-17 16:13 → 1E 02-22 11:42 → 2S 02-23 14:12 → 3E 03-02 00:56
DX: J96.02 Acute respiratory failure with hypercapnia; I13.0 Hypertensive heart and chronic kidney disease with heart failure and stage 1 through stage 4 chronic kidney disease, or unspecified chronic kidney disease; C34.90 Malignant neoplasm of unspecified part of unspecified bronchus or lung; R13.12 Dysphagia, oropharyngeal phase; Z51.5 Encounter for palliative care; J96.21 Acute and chronic respiratory failure with hypoxia; Z99.81 Dependence on supplemental oxygen; I46.8 Cardiac arrest due to other underlying condition; Z92.3 Personal history of irradiation; E87.2 Acidosis; T36.8X5A Adverse effect of other systemic antibiotics, initial encounter; E27.40 Unspecified adrenocortical insufficiency; R65.21 Severe sepsis with septic shock; K22.2 Esophageal obstruction; J69.0 Pneumonitis due to inhalation of food and vomit; F31.9 Bipolar disorder, unspecified; I73.9 Peripheral vascular disease, unspecified; H60.90 Unspecified otitis externa, unspecified ear; J90 Pleural effusion, not elsewhere classified; Z86.16 Personal history of COVID-19; A41.9 Sepsis, unspecified organism; Z20.822 Contact with and (suspected) exposure to COVID-19; Y92.009 Unspecified place in unspecified non-institutional (private) residence as the place of occurrence of the external cause; T17.990A Other foreign object in respiratory tract, part unspecified in causing asphyxiation, initial encounter; E87.6 Hypokalemia; Z87.891 Personal history of nicotine dependence; R49.0 Dysphonia; G93.41 Metabolic encephalopathy; I24.8 Other forms of acute ischemic heart disease; N17.0 Acute kidney failure with tubular necrosis; J44.1 Chronic obstructive pulmonary disease with (acute) exacerbation; I12.9 Hypertensive chronic kidney disease with stage 1 through stage 4 chronic kidney disease, or unspecified chronic kidney disease; Z79.02 Long term (current) use of antithrombotics/antiplatelets; E83.42 Hypomagnesemia; Z66 Do not resuscitate; E87.0 Hyperosmolality and hypernatremia; N18.2 Chronic kidney disease, stage 2 (mild); E83.39 Other disorders of phosphorus metabolism; N40.0 Benign prostatic hyperplasia without lower urinary tract symptoms